=== PATIENT | male | born 1950 | race Caucasian/White ===

== ENCOUNTER 2018-04-28 07:27 | Day surgery (SDC) | payer MEDICARE, SELFPAY ==
--- NOTE | 2018-04-26 09:15 | W.PIPPEYE ---
History of Present Illness Chief Complaint: Progressive decreased vision, right eye Narrative: The patient is a 67-year-old male with history of progressive decreased vision in the right eye. On examination he was noted to have nuclear and posterior subcapsular cataract of the right eye with visual acuity of 20/150. The option of cataract surgery was offered to the patient and he felt he was symptomatic enough with decreased vision that he wished to proceed. NOTE: The Chief Complaint, HPI, Past Medical History, Past Surgical History, Family History, Social History, Medications, and complete Ophthalmic Exam with detailed Assessment and Plan have already been documented in the patient's outpatient ophthalmic record and are not covered again in detail here. [facility] Medical History Nuclear sclerotic cataract of right eye (Acute) Posterior subcapsular age-related cataract, right eye (Acute) Social History Smoking/Tobacco Use Status: Never Meds Home Medications Medication Instructions Recorded Confirmed Type aspirin 325 mg PO DAILY 04/22/18 04/22/18 History glipizide 5 mg PO DAILY 04/22/18 04/22/18 History lisinopril 10 mg PO DAILY 04/22/18 04/22/18 History metformin 1,000 mg PO BID 04/22/18 04/22/18 History metoprolol tartrate 50 mg PO BID 04/22/18 04/22/18 History multivitamin 1 cap PO DAILY 04/22/18 04/22/18 History nitroglycerin [Nitrostat] 0.4 mg SUBLINGUAL DIRECTED 04/22/18 04/22/18 History omeprazole 20 mg PO DAILY 04/22/18 04/22/18 History rosuvastatin [Crestor] 40 mg PO DAILY 04/22/18 04/22/18 History Allergies Allergy/AdvReac Type Severity Reaction Status Date / Time ticlopidine Allergy Unknown Verified 04/22/18 11:27 Exam OCULAR EXAM:: Visual acuity at distance: Best corrected 20/40 right eye, 20/20 left eye. Pupils: Pupils equal, round, and reactive without afferent pupillary defect IOP: 18 OD 13 OS Extraocular Motility: Normal Pertinent Slit Lamp Findings: Significant for pupils dilating to 6 mm OU. 1+ nuclear cataract OD with 1-2+ posterior subcapsular cataract. Clear lens OS. Dilated Funduscopic Examination: Disc cupping is 0.3 OU with good color. The optic nerves have good perfusion and normal color. The retinal vasculature is normal without significant tortuosity or abnormality. The maculas are normal in appearance with normal contour and foveal reflex appropriate for age. The peripheral retina and vitreous are normal. BRIGHTNESS ACUITY TESTING (BAT):: Off right eye 20/150, Low: 20/400 Medium: 20/400 High: Less than 20/400 Assessment and Plan (1) Posterior subcapsular age-related cataract, right eye: Current visit: No Status: Acute Assessment: Visually significant cataract, right eye. Plan: Cataract extraction with intraocular lens implantation, right eye (2) Nuclear sclerotic cataract of right eye: Current visit: No Status: Acute Assessment: Visually significant cataract, right eye. Plan: Cataract extraction with intraocular lens implantation, right eye Note: NOTE:: The details of the planned surgery, including the risks, indications,limitations,expectations,outcome and possible complications were explained to the patient. The patient understands the complications including, but not limited to: infection, hemorrhage, posterior dislocation of the lens or nuclear fragments which may require the intervention of a vitreoretinal surgeon, possible loss of the eye, or from anesthetic complications. The patient has been made aware of the option of not having surgery, that vision following surgery may not be equal to that prior to surgery, and that the planned surgery may not achieve the intended results. Following this discussion, which the patient appeared to understand, the patient wishes to proceed with cataract surgery with lens implantation of the affected eye to improve and maximize vision.
--- NOTE | 2018-04-26 09:23 | POEE_ITS ---
History of Present Illness Chief Complaint: Progressive decreased vision, right eye Narrative: The patient is a 67-year-old male with history of progressive decreased vision in the right eye. On examination he was noted to have nuclear and posterior subcapsular cataract of the right eye with visual acuity of 20/ 150. The option of cataract surgery was offered to the patient and he felt he was symptomatic enough with decreased vision that he wished to proceed. NOTE: The Chief Complaint, HPI, Past Medical History, Past Surgical History, Family History, Social History, Medications, and complete Ophthalmic Exam with detailed Assessment and Plan have already been documented in the patient's outpatient ophthalmic record and are not covered again in detail here. [facility] History Nuclear sclerotic cataract of right eye (Acute) Posterior subcapsular age-related cataract, right eye (Acute) Social History Smoking/Tobacco Use Status: Never Meds Home Medications Medication Instructions Recorded Confirmed Type aspirin 325 mg PO DAILY 04/22/18 04/22/18 History glipizide 5 mg PO DAILY 04/22/18 04/22/18 History lisinopril 10 mg PO DAILY 04/22/18 04/22/18 History metformin 1,000 mg PO BID 04/22/18 04/22/18 History metoprolol tartrate 50 mg PO BID 04/22/18 04/22/18 History multivitamin 1 cap PO DAILY 04/22/18 04/22/18 History nitroglycerin [Nitrostat] 0.4 mg SUBLINGUAL DIRECTED 04/22/18 04/22/18 History omeprazole 20 mg PO DAILY 04/22/18 04/22/18 History rosuvastatin [Crestor] 40 mg PO DAILY 04/22/18 04/22/18 History Allergies Allergy/AdvReac Type Severity Reaction Status Date / Time ticlopidine Allergy Unknown Verified 04/22/18 11:27 Exam OCULAR EXAM:: Visual acuity at distance: Best corrected 20/40 right eye, 20/20 left eye. Pupils: Pupils equal, round, and reactive without afferent pupillary defect IOP: 18 OD 13 OS Extraocular Motility: Normal Pertinent Slit Lamp Findings: Significant for pupils dilating to 6 mm OU. 1+ nuclear cataract OD with 1-2+ posterior subcapsular cataract. Clear lens OS. Dilated Funduscopic Examination: Disc cupping is 0.3 OU with good color. The optic nerves have good perfusion and normal color. The retinal vasculature is normal without significant tortuosity or abnormality. The maculas are normal in appearance with normal contour and foveal reflex appropriate for age. The peripheral retina and vitreous are normal. BRIGHTNESS ACUITY TESTING (BAT):: Off right eye 20/150, Low: 20/400 Medium: 20/400 High: Less than 20/400 Assessment and Plan (1) Posterior subcapsular age-related cataract, right eye: Current visit: No Status: Acute Assessment: Visually significant cataract, right eye. Plan: Cataract extraction with intraocular lens implantation, right eye (2) Nuclear sclerotic cataract of right eye: Current visit: No Status: Acute Assessment: Visually significant cataract, right eye. Plan: Cataract extraction with intraocular lens implantation, right eye Note: NOTE:: The details of the planned surgery, including the risks, indications, limitations,expectations,outcome and possible complications were explained to the patient. The patient understands the complications including, but not limited to: infection, hemorrhage, posterior dislocation of the lens or nuclear fragments which may require the intervention of a vitreoretinal surgeon, possible loss of the eye, or from anesthetic complications. The patient has been made aware of the option of not having surgery, that vision following surgery may not be equal to that prior to surgery, and that the planned surgery may not achieve the intended results. Following this discussion, which the patient appeared to understand, the patient wishes to proceed with cataract surgery with lens implantation of the affected eye to improve and maximize vision.
[2018-04-28 07:30] VITALS: BP 161/86; PULSE 63; RESP 16; TEMP 36.2; O2SAT 99
[2018-04-28] MEDS: Lidocaine 2% Jelly 6 ML SYR (08:52)
[2018-04-28] MEDS: Balanced Salt Soln.-PLUS 500 ML BAG (08:55)
[2018-04-28] MEDS: Povidone-Iodine Ophth 30 ML BTL (08:59)
--- NOTE | 2018-04-28 09:17 | W.PM.DSUDISC ---
Discharge Plan Discharge Details Reason For Visit: CATARACT OD Attending Provider: Gus Phillips Primary Care Provider: Ramior Ball Home Meds and New Rx's Prescriptions: No Action aspirin 325 mg Tablet 325 mg PO DAILY RF: 0 glipizide 5 mg Tablet Extended Release 24hr 5 mg PO DAILY RF: 0 metformin 1,000 mg Tablet 1,000 mg PO BID RF: 0 lisinopril 10 mg Tablet 10 mg PO DAILY RF: 0 metoprolol tartrate 50 mg Tablet 50 mg PO BID RF: 0 nitroglycerin [Nitrostat] 0.4 mg Tablet, Sublingual 0.4 mg SUBLINGUAL DIRECTED RF: 0 omeprazole 20 mg Capsule,Delayed Release(Dr/Ec) 20 mg PO DAILY RF: 0 multivitamin Capsule 1 cap PO DAILY RF: 0 rosuvastatin [Crestor] 40 mg Tablet 40 mg PO DAILY RF: 0 Discharge Instructions Stand Alone Forms: Post-op Topical Cataract, Opal Dennis (DSU) DS: Diagnosis Discharge Diagnosis (1) Posterior subcapsular age-related cataract, right eye: Status: Resolved (2) Nuclear sclerotic cataract of right eye: Status: Resolved (3) S/P cataract surgery: Status: Chronic
--- NOTE | 2018-04-28 09:21 | ROE_ITS ---
Date of service: 04/28/18 Time of Service: 09:19 Operative Note DATE OF PROCEDURE: 04/28/18 PRE-OP DIAGNOSIS: Cataract, right eye POST-OP DIAGNOSIS: same SURGEON: Gus Phillips ANESTHESIA: MAC and local (sub-tenon's anesthetic infiltration) PATHOLOGY: none sent COMPLICATIONS: None Patient was transported to: same day Patient's condition: stable Implants: Ricardo and Ric[employer] Vision / [employer] Tecnis [id number] Indications: Progressive decreased vision due to cataract, right eye Procedure Description: CATARACT SURGERY OPERATIVE REPORT PREOPERATIVE DIAGNOSIS: Nuclear/posterior subcapsular cataract, right eye POSTOPERATIVE DIAGNOSIS: Same OPERATION: Cataract extraction using phacoemulsification with posterior chamber intraocular lens implant, right eye. IOL: IOL Retirement Administrator/Model: [employer] Vision / AMELIA Tecnis [id number] IOL Power: + 21.5 diopters IOL Serial Number: [id number] Optic Diameter: 6.0mm Haptic/Overall Diameter: 13.0mm PHACO INFO: [employer] Vision System with OZil and Active Fluidics Cumulative Dispersed Energy (CDE): 7.96 seconds SURGEON: Gus Phillips MD, ELOISE ANESTHESIA: Monitored Anesthesia Care (MAC), with local sub-tenon's anesthetic infiltration COMPLICATIONS: None SPECIMENS: None INDICATIONS FOR PROCEDURE: The patient is a 67-year-old gentleman with progressive decreased vision in his right eye. He is noted to have a significant nuclear and posterior subcapsular cataract in the right eye. He was significantly symptomatic that he desired cataract surgery and attempt to improve and maximize his vision. PROCEDURE: The correct surgical eye was identified and marked as the right eye and the pupil was dilated in the preoperative area using mydriatics, cycloplegics, and NSAIDS (except in aspirin allergic patients). The dilated pupil size was 8.0 mm. Oral sedation was administered in the form of an Imprimis MKO Melt (midazolam 3mg/ketamine 25mg/ondansetron 2mg). The patient was brought to the operating room where cardiopulmonary monitoring was instituted and surgical time-out was performed, confirming the correct operative eye and IOL power. Topical anesthesia was administered and ophthalmic povidone-iodine 5% was instilled into the conjunctival fornices. Lidocaine gel was applied to the cornea and the clara-ocular area was prepped with Betadine 10% solution and draped in the usual sterile fashion for intraocular surgery. Steri-strips were used to cover the lashes and lid margins and an adhesive eye drape was placed. Care was taken to isolate the lashes and lid margins under the Steri-strips and adhesive eye drape. A lid speculum was placed between the lids of the operative eye and the [employer] operating microscope was maneuvered into position. Rupa scissors were then used to make a conjunctival buttonhole approximately 6mm posterior to the limbus in the inferonasal quadrant. Blunt dissection was carried out to expose bare sclera, and a blunt-tipped sub-tenon? s anesthesia cannula was introduced and passed posteriorly along the globe where non-preserved plain lidocaine was injected into posterior sub-Tenon?s space. A sideport knife was used to make a paracentesis port at the 7:00 postion and the anterior chamber was filled with Healon GV. A 2.4mm keratome knife was used to create a half-thickness groove at the limbus and then to construct a three-plane near-clear corneal tunnel extending 2.0mm into clear cornea at the 10:00 position. A flap was raised on the anterior capsule and capsulorhexis forceps were used to complete a continuous curvilinear capsulorhexis of 5.5 mm. Balanced salt solution was then used to perform cortical cleaving hydrodissection and nuclear hydrodelineation until the lens could be freely rotated within the capsular bag. The lens nucleus was then disassembled and removed within the capsular bag and iris plane using phacoemulsification. Residual cortical material was removed using the 45-degree angled silicone I/A tip with 0.3mm port. The posterior capsule was carefully polished to remove as much residual lens epithelial cells as safely possible. The capsular bag was then inflated and the anterior chamber deepened with viscoelastic. The lens implant described above was inserted into the capsular bag using the AMELIA [place] Injector. A Kuglen hook was used to dial the IOL into position. Residual viscoelastic was then removed first from posterior to the IOL, then from the anterior chamber using the I/A handpiece. The lens implant was noted to center nicely within the capsular bag. The incisions were stromally hydrated , and the anterior chamber was reformed using BSS. Then 0.4cc of moxifloxacin 1.5mg/ml were injected into the capsular bag and anterior chamber. The incisions were checked with a Weck spear and found to be secure. Several drops of ophthalmic povidone-iodine 5% were then applied to the eye followed by two drops of Imprimis combination moxifloxacin/dexamethasone solution. The drapes were removed and a clear plastic protective eye shield was placed over the eye. The patient was then returned to Same Day Surgery in stable condition.
[2018-04-28 09:48] VITALS: BP 128/69; PULSE 60; RESP 16; TEMP 35.8; O2SAT 93
== END 2018-04-28 09:58 | disposition home or self-care (01) ==
PROVIDERS: PCP Internal Medicine; Visit Provider Ophthalmology
PROC: (CPT 66984; principal; 2018-04-28 09:30)
DX: H25.811 Combined forms of age-related cataract, right eye (principal); E11.9 Type 2 diabetes mellitus without complications; Z79.84 Long term (current) use of oral hypoglycemic drugs; K21.9 Gastro-esophageal reflux disease without esophagitis
CPT/HCPCS: 66984; V2632

== ENCOUNTER 2018-06-03 10:38 | Outpatient (REF) | payer MEDICARE, SELFPAY ==
[2018-06-03 20:43] LABS: COMMENT (LAB VIEW ONLY) 97.98 mg/dL
== END 2018-06-03 10:58 ==
LOC: NCHCN 10:38
PROVIDERS: PCP Internal Medicine; Visit Provider Physician Assistant Medical
DX: I10 Essential (primary) hypertension (principal)
CPT/HCPCS: 82043; 82570

== ENCOUNTER 2019-03-17 09:07 | Outpatient (REF) | payer MEDICARE, SELFPAY ==
[2019-03-17 18:54] LABS: Hemoglobin A1C 7.3 % (4.5-6.2)
[2019-03-17 18:57] LABS: Anion Gap 10.1 mmol/L (3-11); BUN 14 mg/dL (7-18); CO2 24.9 mmol/L (21.0-32.0); CREATININE 1.16 mg/dL (0.70-1.30); Calcium 9.3 mg/dL (8.5-10.1); Calculated LDL 75 mg/dL; Chloride 104 mmol/L (98-107); Cholesterol 156 mg/dL (50-200); Glucose 142 mg/dL (70-100); HDL Cholesterol 43 mg/dL (40-60); Potassium 4.7 mmol/L (3.5-5.1); Sodium 139 mmol/L (136-145); Triglyceride 192 mg/dL (30-150)
== END 2019-03-17 09:27 ==
LOC: NCHCN 09:07
PROVIDERS: PCP Internal Medicine; Visit Provider Nurse Practitioner Family
DX: I10 Essential (primary) hypertension (principal); E11.9 Type 2 diabetes mellitus without complications; E78.5 Hyperlipidemia, unspecified
CPT/HCPCS: 80048; 80061; 83036

== ENCOUNTER 2020-09-29 09:34 | Outpatient (REF) | payer OTHER, SELFPAY ==
[2020-09-29 16:04] LABS: Anion Gap 12.6 mmol/L (3-11); BUN 26 mg/dL (7-18); CO2 23.4 mmol/L (21.0-32.0); CREATININE 1.3 mg/dL (0.70-1.30); Calcium 9.7 mg/dL (8.5-10.1); Chloride 99 mmol/L (98-107); Estimated GFR 54.57 (mL/min/1.73m2); Glucose 187 mg/dL (74-106); Potassium 4.8 mmol/L (3.5-5.1); Sodium 135 mmol/L (136-145)
[2020-09-29 16:17] LABS: COMMENT (LAB VIEW ONLY) 72.56 mg/dL
[2020-09-29 16:32] LABS: Microalb ug/mg Crea 430.3 ug/mg Cr
== END 2020-09-29 09:35 | disposition home or self-care (01) ==
LOC: NCHCN 09:34
PROVIDERS: PCP Internal Medicine; Visit Provider Physician Assistant
DX: E11.9 Type 2 diabetes mellitus without complications (principal)
CPT/HCPCS: 80048; 82043; 82570

== ENCOUNTER 2021-10-18 09:46 | Outpatient (REF) | payer MEDICARE, SELFPAY ==
[2021-10-18 21:53] LABS: Anion Gap 10.9 mmol/L (3-11); BUN 21 mg/dL (7-18); CO2 25.1 mmol/L (21.0-32.0); CREATININE 1.3 mg/dL (0.70-1.30); Calcium 9.3 mg/dL (8.5-10.1); Chloride 100 mmol/L (98-107); Estimated GFR 54.42 (mL/min/1.73m2); Glucose 173 mg/dL (74-106); Potassium 4.6 mmol/L (3.5-5.1); Sodium 136 mmol/L (136-145)
[2021-10-20 10:09] LABS: Hepatitis C Ab w Rflx HCV PCR Negative (Negative)
== END 2021-10-18 09:47 | disposition home or self-care (01) ==
LOC: NCHCN 09:46
PROVIDERS: PCP Internal Medicine; Visit Provider Physician Assistant
DX: E11.9 Type 2 diabetes mellitus without complications (principal); Z11.59 Encounter for screening for other viral diseases
CPT/HCPCS: 80048; 86803

== ENCOUNTER 2022-03-23 08:05 | Day surgery (SDC) | payer MEDICARE, SELFPAY ==
--- NOTE | 2022-03-23 06:51 | ANES.PREOP_ITS ---
General Info Date of Service Date Performed: 03/23/22 Height: 5 ft 6.5 in Weight: 83.7 kg Body Mass Index (BMI): 29.3 Surgical Procedure: Operation Date: 03/23/22 09:55 Proposed Procedure Side Surgeon p Cataract Extraction with IOL Implant Left Gus Phillips MD Meds Allergies and Home Medications Allergies Allergy/AdvReac Type Severity Reaction Status Date / Time ticlopidine Allergy Unknown Verified 03/23/22 08:27 Home Medication Medication Instructions Recorded glipizide 5 mg tablet, extended 5 mg PO DAILY 04/22/18 release 24 hr metformin 1,000 mg tablet 1,000 mg PO BID 04/22/18 metoprolol tartrate 50 mg tablet 50 mg PO BID 04/22/18 multivitamin 1 cap PO DAILY 04/22/18 nitroglycerin 0.4 mg sublingual 0.4 mg sublingual DIRECTED 04/22/18 tablet (Nitrostat) omeprazole 20 mg capsule,delayed 20 mg PO DAILY 04/22/18 release rosuvastatin 40 mg tablet (Crestor) 40 mg PO DAILY 04/22/18 amlodipine 5 mg tablet 5 mg PO BID 03/21/22 ezetimibe 10 mg tablet (Zetia) 10 mg PO DAILY 03/21/22 sacubitril 24 mg-valsartan 26 mg 1 tab PO BID 03/21/22 tablet (Entresto) aspirin 81 mg tablet,delayed 81 mg PO DAILY 03/22/22 release Current Visit Medications: Current Medications Generic Name Dose Route Start Last Admin Trade Name Freq PRN Reason Stop Dose Admin Acetaminophen 1,000 mg 03/23/22 06:00 Acetaminophen 500 Mg Tab PO Q4H PRN PRN Miscellaneous Medication 0 ml 03/23/22 06:00 Prednisolone 1%, Moxifloxacin 0.5%, Nepafenac 0.1% 5ml Btl OS DIRECTED AMI Miscellaneous Medication 0 ml 03/23/22 06:00 Tropicam./Phenyleph. (1/2.5%) 5 Ml Btl OS DIRECTED AMI Tetracaine HCl 0 ml 03/23/22 06:00 Tetracaine 0.5% 4 Ml Btl OS DIRECTED AMI PFSH Active Problems Active Problems: Problem Status Onset Code Posterior subcapsular age-related cataract, right eye 04/28/18 H25.041 Nuclear sclerotic cataract of right eye 04/28/18 H25.11 S/P cataract surgery 04/28/18 Z98.49 Medical History Medical History (Updated 03/22/22 @ 14:07 by Brandon Mehta) Acid reflux Diabetes HLD (hyperlipidemia) HTN (hypertension) Surgical History Surgical History (Updated 03/23/22 @ 08:27 by Theo Marte) Hx of aortic valve replacement F/U with Dr. Lackey Hx of appendectomy S/P CABG x 2019 Tobacco Smoking/Tobacco Use Status: Never Alcohol Alcohol Intake: never Substance Use Substance use: Never Substance use type: does not use Vital Signs and Lab Results Lab Results Blood Type / Crossmatch: No Data to Display Complete Blood Count: No Data to Display Complete Metabolic Panel: No Data to Display Liver Function Panel: No Data to Display Coagulation Panel: No Data to Display Cardiac Panel: No Data to Display Arterial Blood Gas: 2 No Data to Display Venous Blood Gas: No Data to Display Pancreas Panel: No Data to Display Thyroid Panel: No Data to Display Infectious Disease: No Data to Display Blood Cultures: No Data to Display Toxicology Panel: No Data to Display Anesthesia Assessment and Plan Anesthesia History Personal History: No History of Anesthesia Complications Family History: No Family History of Anesthesia Complications Exercise Tolerance Exercise Tolerance: Metabolic Equivalents>4 Pertinent Negatives Pertinent Negatives: No Symptoms of GERD, No Major Cardiovascular Symptoms or Complaints, No Major Pulmonary Symptoms or Complaints and No History of CVA/TIA Cardiac & Pulmonary Exam Cardiac Exam: Normal S1/S2 Heart Sounds Pulmonary Exam: Clear Bilateral Breath Sounds Implantable Cardiac Device Does patient have a Pacemaker or an ICD?: No Airway Exam Known Difficult Airway: No Mallampati Class: 2 Mouth Opening: Normal (> 3cm) Thyromental Distance: Greater than 3 cm Neck Range of Motion: Full ROM Neck Circumference: Normal Teeth Condition: Normal Dentition ASA Classification ASA Score: ASA 3 Emergency Case?: No NPO Status NPO Status: NPO Clears >2 hours, Solids >8 hours Anesthesia Plan Resuscitation Status: Full Code Anesthesia Technique: MAC Anesthesia Airway Planned: Natural Airway Monitors Used: Standard Monitors
[2022-03-23 08:31] VITALS: BP 115/60; PULSE 57; RESP 16; TEMP 36.4; O2SAT 100
[2022-03-23] MEDS: Tropicam./Phenyleph. (1/2.5%) 5 ML BTL OS ×3 (08:38→08:50)
[2022-03-23] MEDS: Tetracaine 0.5% 4 ML BTL OS (09:10)
[2022-03-23] MEDS: Balanced Salt Soln.-PLUS 500 ML BAG (09:18)
[2022-03-23] MEDS: Lidocaine 2% Jelly 6 ML SYR (09:19)
[2022-03-23] MEDS: Lidocaine 1% Pres-Free 5 ML VIAL (09:19)
[2022-03-23] MEDS: Povidone-Iodine Ophth 30 ML BTL (09:21)
[2022-03-23 09:29] VITALS: BMI 29.3
[2022-03-23 09:32] VITALS: BP 121/76; PULSE 56; RESP 15; TEMP 36.4; O2SAT 98
--- NOTE | 2022-03-23 09:35 | ROE_ITS ---
Date of service: 03/23/22 Time of Service: 09:37 Operative Note Operative Note DATE OF PROCEDURE: 03/23/22 PRE-OP DIAGNOSIS: Nuclear/posterior subcapsular cataract, left eye POST-OP DIAGNOSIS: same PROCEDURE: Cataract extraction using phacoemulsification with intraocular lens implant, left eye SURGEON: Gus Phillips ANESTHESIA TYPE: Local By Surgeon and MAC Refer to Anesthesia Record PATHOLOGY: none sent COMPLICATIONS: None Patient was transported to: same day Patient's condition: stable Implants: Jason Clareon [id number] Indications: Progressive decreased vision due to cataract, left eye Procedure Description: CATARACT SURGERY OPERATIVE REPORT PREOPERATIVE DIAGNOSIS: Nuclear/posterior subcapsular cataract, left eye POSTOPERATIVE DIAGNOSIS: Same OPERATION: Cataract extraction using phacoemulsification with posterior chamber intraocular lens implant, left eye. IOL: IOL Battery Assembler/Model: Jason Clareon [id number] IOL Power: + 22.0 diopters IOL Serial Number: [id number] Optic Diameter: 6.0mm Haptic/Overall Diameter: 13.0mm PHACO INFO: [employer] Vision System with OZil and Active Fluidics Cumulative Dispersed Energy (CDE): 8.41 seconds SURGEON: Gus Phillips MD, ELOISE ANESTHESIA: Monitored Anesthesia Care (MAC), with local sub-tenon's anesthetic infiltration COMPLICATIONS: None SPECIMENS: None INDICATIONS FOR PROCEDURE: The patient is a 71-year-old gentleman who is previously undergone cataract surgery in the right eye in 2018. He has now developed a symptomatic nuclear/posterior subcapsular cataract in the left eye. The option of cataract surgery was offered to the patient and he wished to proceed. PROCEDURE: The correct surgical eye was identified and marked as the left eye and the pupil was dilated in the preoperative area using mydriatics and cycloplegics. The dilated pupil size was 6.5 mm. He elected to proceed without oral sedation. The patient was brought to the operating room where cardiopulmonary monitoring was instituted and surgical time-out was performed, confirming the correct operative eye and IOL power. Topical anesthesia was administered and ophthalmic povidone-iodine 5% was instilled into the conjunctival fornices. Lidocaine gel was applied to the cornea and the clara-ocular area was prepped with Betadine 10% solution and draped in the usual sterile fashion for intraocular surgery, including an aperture drape. A Tegaderm transparent film dressing was cut in half and used to cover the lashes and lid margins. Care was taken to sequester the lashes and lid margins under the Tegaderm dressing. A lid speculum was placed between the lids of the operative eye and the Jason [employer] operating microscope was maneuvered into position. Rupa scissors were then used to make a conjunctival buttonhole approximately 6mm posterior to the limbus in the inferonasal quadrant. Blunt dissection was carried out to expose bare sclera, and a blunt-tipped sub-tenon?s anesthesia cannula was introduced and passed posteriorly along the globe where non- preserved plain lidocaine was injected into posterior sub-Tenon?s space. A sideport knife was used to make a paracentesis port superior/superiortemporally. Intraocular phenylephrine/lidocaine was injected into the anterior chamber. The anterior chamber was then filled with viscoelastic. A 2.4mm keratome knife was used to create a half-thickness groove at the limbus and then to construct a three-plane near-clear corneal tunnel extending 2.0mm into clear cornea in the temporal position. . A flap was raised on the anterior capsule and capsulorhexis forceps were used to complete a continuous curvilinear capsulorhexis of 5.0 mm. Balanced salt solution was then used to perform cortical cleaving hydrodissection and nuclear hydrodelineation until the lens could be freely rotated within the capsular bag. The lens nucleus was then disassembled and removed within the capsular bag and iris plane using phacoemulsification. Residual cortical material was removed using the 45-degree angled silicone I/A tip with 0.3mm port. The posterior capsule was carefully polished to remove as much residual lens epithelial cells as safely possible. The capsular bag was then inflated and the anterior chamber deepened with viscoelastic. The lens implant described above was inserted into the capsular bag using the Jason [place] Injector. A Kuglen hook was used to dial the IOL into position. Residual viscoelastic was then removed first from posterior to the IOL, then from the anterior chamber using the I/A handpiece. The lens implant was noted to center nicely within the capsular bag. The incisions were stromally hydrated, and the anterior chamber was reformed using BSS. Then 0.5cc of moxifloxacin 1.0mg/ml were injected into the capsular bag and anterior chamber. The incisions were checked with a Weck spear and found to be secure. Several drops of ophthalmic povidone-iodine 5% were then applied to the eye followed by two drops of Imprimis combination prednisolone/moxifloxacin/nepafenac solution. The drapes were removed and a clear plastic protective eye shield was placed over the eye. The patient was then returned to Same Day Surgery in stable condition.
--- NOTE | 2022-03-23 09:35 | W.PM.DSUDISC ---
Discharge Plan Disposition Patient Disposition: HOME Condition: Good Discharge Details Attending Provider: Gus Phillips Primary Care Provider: Ramiro Ball Meds and New Rx's Prescriptions: No Action amlodipine 5 mg Tablet 5 mg PO BID ezetimibe [Zetia] 10 mg Tablet 10 mg PO DAILY Entresto 24-26 mg Tablet 1 tab PO BID aspirin [Aspir-81] 81 mg Tablet,Delayed Release (Dr/Ec) 81 mg PO DAILY glipizide 5 mg Tablet Extended Release 24hr 5 mg PO DAILY metformin 1,000 mg Tablet 1,000 mg PO BID metoprolol tartrate 50 mg Tablet 50 mg PO BID nitroglycerin [Nitrostat] 0.4 mg Tablet, Sublingual 0.4 mg SUBLINGUAL DIRECTED omeprazole 20 mg Capsule,Delayed Release(Dr/Ec) 20 mg PO DAILY multivitamin Capsule 1 cap PO DAILY rosuvastatin [Crestor] 40 mg Tablet 40 mg PO DAILY Discharge Instructions Stand Alone Forms: Post-op Topical Cataract, Opal Dennis (DSU) Discharge Orders Discharge Orders: Discharge Order (Routine); Ordered 03/23/22 Ordered By: Gus Phillips DS: Diagnosis Discharge Diagnosis (1) Nuclear sclerotic cataract of left eye: Status: Resolved (2) Posterior subcapsular age-related cataract of left eye: Status: Resolved
--- NOTE | 2022-03-23 09:57 | W.ANESPOSTOP ---
Postoperative Evaluation Date, Time and Location Date Performed: 03/23/22 Time Performed: 09:32 Patient Location: Day [facility] Unit Vital Signs Most Recent Imported Vital Signs: Most Recent Vital Signs Temp Pulse Resp BP Pulse Ox 36.4 C L 56 L 15 121/76 98 03/23/22 09:32 03/23/22 09:32 03/23/22 09:32 03/23/22 09:32 03/23/22 09:32 Pain Score Most Recent Pain Score: Most Recent Pain Score Pain Level 0 03/23/22 09:32 Assessment Mental Status: Awake (Alert & Oriented to Patient Baseline) Airway and Respiratory Function: Patent airway with normal (patient baseline) respiratory exam Cardiovascular Function: Hemodynamically Stable Hydration Status: Adequately Hydrated Nausea & Vomiting: No Nausea or Vomiting Pain: Pt. Denies Any Pain Peripheral Nerve Block: Other (Local by Dr. Phillips)
== END 2022-03-23 09:54 | disposition home or self-care (01) ==
PROVIDERS: PCP Internal Medicine; Visit Provider Ophthalmology
PROC: (CPT 66984; principal; 2022-03-23 09:45)
DX: H25.042 Posterior subcapsular polar age-related cataract, left eye (principal); E11.9 Type 2 diabetes mellitus without complications; I10 Essential (primary) hypertension; E78.5 Hyperlipidemia, unspecified
CPT/HCPCS: 66984; V2632

== ENCOUNTER 2022-10-23 12:45 | Outpatient (REF) | payer MEDICARE, SELFPAY ==
[2022-10-23 19:00] LABS: ALT 33 U/L (16-63); AST 27 U/L (15-37); Alkaline Phosphatase 59 U/L (46-116); Anion Gap 13.1 mmol/L (3-11); BUN 24 mg/dL (7-18); Bilirubin, Total 0.5 mg/dL (0.2-1.0); CO2 21.9 mmol/L (21.0-32.0); CREATININE 1.3 mg/dL (0.70-1.30); Calcium 9.7 mg/dL (8.5-10.1); Chloride 99 mmol/L (98-107); Estimated GFR 58.37 (mL/min/1.73m2); Glucose 164 mg/dL (74-106); Potassium 4.7 mmol/L (3.5-5.1); Sodium 134 mmol/L (136-145); Total Protein 8.3 g/dL (6.4-8.2)
== END 2022-10-23 12:46 | disposition home or self-care (01) ==
LOC: NCHCN 12:45
PROVIDERS: PCP Internal Medicine; Visit Provider Physician Assistant
DX: E11.9 Type 2 diabetes mellitus without complications (principal); I10 Essential (primary) hypertension; E78.5 Hyperlipidemia, unspecified
CPT/HCPCS: 80053

== ENCOUNTER 2023-05-23 13:52 | Outpatient (REF) | payer MEDICARE, SELFPAY ==
[2023-05-23 19:57] LABS: Abs Immature Grans 0.13 10^3/uL (0.0-0.06); Absolute Basophil Count 0.09 10^3/uL (0.0-0.2); Basophils % 0.5; Eosinophils % 0.1; HCT 38.2 % (40.0-50.0); HGB 12.3 g/dL (13.5-17.5); Immature Grans % 0.7; Lymphocytes % 7.3; MCH 25.7 pg (27.0-33.0); MCHC 32.2 % (32.0-36.0); MCV 80 fL (80-95); MPV 12.2 fL (8.0-11.0); Monocytes % 11.2; Neutrophils % 80.2; Platelet Count 193 10^3/uL (130-400); RBC 4.78 10^6/uL (4.36-5.78); RDW-SD 43.4 fL; WBC 17.48 10^3/uL (4.4-10.8)
[2023-05-23 20:02] LABS: Absolute Eosinophil Count 0.02 10^3/uL (0.0-0.7); Absolute Lymphocyte Count 1.28 10^3/uL (1.2-3.4); Absolute Monocyte Count 1.96 10^3/uL (0.1-0.8); Absolute Neutrophil Count 14.02 10^3/uL (1.2-6.7)
[2023-05-23 20:06] LABS: RBC Morphology Normal
[2023-05-23 20:07] LABS: Diff Comment Agrees w/ Instrument
[2023-05-23 20:11] LABS: ALT 35 U/L (16-63); AST 43 U/L (15-37); Albumin 3.1 g/dL (3.4-5.0); Alkaline Phosphatase 107 U/L (46-116); Anion Gap 10.3 mmol/L (3-11); BUN 19 mg/dL (7-18); Bilirubin, Total 0.8 mg/dL (0.2-1.0); CO2 21.7 mmol/L (21.0-32.0); CREATININE 1.5 mg/dL (0.70-1.30); Chloride 97 mmol/L (98-107); Estimated GFR 48.85 (mL/min/1.73m2); Glucose 213 mg/dL (74-106); Potassium 4.3 mmol/L (3.5-5.1); Sodium 129 mmol/L (136-145); Total Protein 8.3 g/dL (6.4-8.2)
[2023-05-24 18:50] LABS: PSA, Screening 8.7 ng/mL (<=6.5)
== END 2023-05-23 13:53 | disposition home or self-care (01) ==
LOC: NCHCN 13:52
PROVIDERS: PCP Internal Medicine; Visit Provider Physician Assistant
DX: R30.0 Dysuria (principal); R31.9 Hematuria, unspecified; R10.9 Unspecified abdominal pain; R35.1 Nocturia
CPT/HCPCS: 80053; 84153; 87077; 85025; 87086; 87186

== ENCOUNTER 2023-07-26 10:15 | Outpatient (REF) | payer MEDICARE, SELFPAY ==
[2023-07-26 19:25] LABS: COMMENT (LAB VIEW ONLY) 130.74 mg/dL
[2023-07-26 19:26] LABS: Microalb ug/mg Crea 208.4 ug/mg Cr
== END 2023-07-26 10:16 | disposition home or self-care (01) ==
LOC: NCHCN 10:15
PROVIDERS: PCP Internal Medicine; Visit Provider Internal Medicine
DX: E11.9 Type 2 diabetes mellitus without complications (principal)
CPT/HCPCS: 82043; 82570

== ENCOUNTER 2023-07-30 08:24 | Outpatient (REF) | payer MEDICARE, SELFPAY ==
[2023-07-30 20:10] LABS: Calculated LDL 44 mg/dL (<100); Cholesterol 121 mg/dL (<200); HDL Cholesterol 52 mg/dL (40-60); Triglyceride 126 mg/dL (<150)
[2023-07-30 20:37] LABS: Hemoglobin A1C 7.3 % (<5.7)
== END 2023-07-30 08:25 | disposition home or self-care (01) ==
LOC: NCHCN 08:24
PROVIDERS: PCP Internal Medicine; Visit Provider Physician Assistant
DX: E11.9 Type 2 diabetes mellitus without complications (principal); E78.5 Hyperlipidemia, unspecified
CPT/HCPCS: 80061; 83036

== ENCOUNTER 2024-03-26 15:44 | Outpatient (REF) | payer MEDICARE, SELFPAY ==
--- OUTSIDE RECORDS SUMMARY | 2024-03-26 15:46 | XMS_ITS | Continuity of Care Document ---
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 Role Phone [facility] Primary Care Physician Encounter [facility] Date(s): 02/19/23 - 02/19/23 [facility] [address] [place] [address] Discharge Disposition: Home Allergies, Adverse Reactions, Alerts No Known Medication Allergies Substance Reaction Severity Status lisinopril Cough Severe Active Assessment and Plan Future Appointments Immunizations Given and Recorded Vaccine Date Status Refusal Reason SARS-CoV-2 (COVID-19) mRNA-1273 vaccine 10/13/20 R ecorded SARS-CoV-2 (COVID-19) mRNA-1273 vaccine 09/15/20 R ecorded Medications AAA - Mis Prescription 100 EA, USE ONE DAILY DIRECTED, 0 Refill(s) Start Date: 12/20/22 Status: Ordered acetaminophen 500 mg oral tablet 1,000 mg = 2 tab, Oral, every 6 hr, PRN other (see comment), as needed Start Date: 03/15/22 Status: Ordered amLODIPine 5 mg oral tablet 180 EA, TAKE ONE TABLET BY MOUTH TWICE A DAY, 0 Refill(s) Start Date: 12/20/22 Status: Ordered aspirin 81 mg oral delayed release tablet 81 mg = 1 tab, Oral, Daily Start Date: 03/15/22 Status: Ordered Entresto 24 mg-26 mg oral tablet 1 tab, Oral, BID, # 60 tab, 11 Refill(s), Pharmacy: [facility] Start Date: 10/02/22 Status: Ordered glipiZIDE 10 mg oral tablet, extended release 180 EA, TAKE TWO TABLETS BY MOUTH EVERY DAY, 0 Refill(s) Start Date: 12/20/22 Status: Ordered metFORMIN 1000 mg oral tablet 180 EA, TAKE ONE TABLET BY MOUTH TWICE A DAY, 0 Refill(s) Start Date: 12/20/22 Status: Ordered Metoprolol Tartrate 100 mg oral tablet 180 EA, TAKE ONE TABLET BY MOUTH TWICE A DAY, 0 Refill(s) Start Date: 12/20/22 Status: Ordered multivitamin adult, oral tablet 1 tab, Oral, Daily Start Date: 03/15/22 Status: Ordered omeprazole 20 mg oral delayed release capsule 90 EA, TAKE ONE CAPSULE BY MOUTH EVERY DAY, 0 Refill(s) Start Date: 12/20/22 Status: Ordered rosuvastatin 40 mg oral tablet 40 mg = 1 tab, Oral, Daily, # 90 tab, 4 Refill(s), Pharmacy: [facility] Start Date: 12/20/22 Stop Date: 03/14/24 Status: Ordered Zetia 10 mg oral tablet 10 mg = 1 tab, Oral, Daily, # 90 tab, 4 Refill(s), Pharmacy: [facility] Start Date: 07/02/22 Status: Ordered Problem List Condition Confirmation Course Effective Dates Status H ealth Status Informant Coronary arteriosclerosis Confirmed 07/01/20 Active Gastroesophageal reflux disease Confirmed 07/01/20 Active Hyperlipidemia Confirmed 07/01/20 Active Hypertensive disorder Confirmed Active Myocardial infarction Confirmed 07/01/20 Active Knee pain Confirmed Active Type 2 diabetes mellitus Confirmed 07/01/20 Active Procedures Procedure Date Related Diagnosis Body Site Status Colonoscopy 1 05/23/21 Completed Coronary artery bypass graft 2 06/12/20 Completed Transcatheter aortic valve replacement 06/12/20 Completed Diagnostic right heart - Car diac catheterization 06/02/20 Completed Cardiac catheterization with Stent placement 10/12/97 Completed 1diverticular disease 2arterial graft single 2 venous grafts arterial Social History Social History Type Response Tobacco Never tobacco user T obacco Use:. Sex Male Patient Care team information Care Team Personnel Name: Ramiro Antonio MD Position: Physician Member Role: Primary Care Physician Address: Address: [address] [place] [phone] [place] Care Team Related Persons Name: SEBAS PAYNE Brain Address: Home [address] [place], [place] [id number]
--- OUTSIDE RECORDS SUMMARY | 2024-03-26 15:46 | XMS_ITS | Continuity of Care Document ---
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 Polisher Name Role Phone [facility]au [facility] Primary Care Physician Encounter [facility] Date(s): 05/24/23 - 05/24/23 [facility] [address] [place] [address] Discharge Disposition: Home or Self Care Attending Physician: Tamia Tsai PA-C Admitting Physician: Tamia Tsai PA-C Referring Physician: Tamia Tsai PA-C Allergies, Adverse Reactions, Alerts No Known Medication Allergies Substance Reaction Severity Status lisinopril Cough Severe Active Immunizations Given and Recorded Vaccine Date Status Refusal Reason SARS-CoV-2 (COVID-19) mRNA-1273 vaccine 10/13/20 R ecorded SARS-CoV-2 (COVID-19) mRNA-1273 vaccine 09/15/20 R ecorded Medications AAA - Misc Prescription 100 EA, USE ONE DAILY DIRECTED, [...] Daily, # 90 tab, 4 Refill(s), Pharmacy: [facility] Start Date: 12/20/22 Stop Date: 03/14/24 Status: Ordered Zetia 10 mg oral tablet 10 mg = 1 tab, Oral, Daily, # 90 tab, 4 Refill(s), Pharmacy: [facility] Start Date: 07/02/22 Status: Ordered Problem List Condition Confirmation Course Effective Dates Status H ealth Status Informant Degenerative arthritis of knee, bilateral Confirmed Active Coronary arteriosclerosis Confirmed 07/01/20 Active Gastroesophageal reflux disease Confirmed 07/01/20 Active Hyperlipidemia Confirmed 07/01/20 Active Hypertensive disorder Confirmed Active Myocardial infarction Confirmed 07/01/20 Active Knee pain Confirmed Active Bilateral knee pain Confirmed Active Type 2 diabetes mellitus [...] Member Role: Primary Care Physician Address: Address: [address] [place] [phone] Care Team Related Persons Name: SEABS PAYNE Brain Address: Home [address] [place], [place] [id number]
--- OUTSIDE RECORDS SUMMARY | 2024-03-26 15:46 | XMS_ITS | Continuity of Care Document ---
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 Role Phone Primeau [facility] Primary Care Physician Encounter [facility] Date(s): 07/02/22 - 07/02/22 [facility] [address] [place] [address] Encounter Diagnosis CAD in alutiiq artery(Discharge Diagnosis) - 07/02/22 HLD (hyperlipidemia)(Discharge Diagnosis) - 07/02/22 Abnormal echocardiogram(Discharge Diagnosis) - 07/03/22 Discharge Disposition: Home or Self Care Attending Physician: Joseph Lackey MD Allergies, Adverse Reactions, Alerts No Known Medication Allergies Substance Reaction Severity Status lisinopril Cough Severe Active Functional Status 07/02/22 Other exposure to Infectious Disease Non e Immunizations Given and Recorded Vaccine Date Status Refusal Reason SARS-CoV-2 (COVID-19) mRNA-1273 vaccine 10/13/20 R ecorded SARS-CoV-2 (COVID-19) mRNA-1273 vaccine 09/15/20 R ecorded Medications acetaminophen 500 mg oral tablet 1,000 mg = 2 tab, Oral, every 6 hr, PRN other (see comment), as needed Start Date: 03/15/22 Status: Ordered aspirin 81 mg oral delayed release tablet 81 mg = 1 tab, Oral, Daily Start Date: 03/15/22 Status: Ordered Entresto 24 mg-26 mg oral tablet 1 tab, Oral, BID Start Date: 03/15/22 Status: Ordered ezetimibe 10 mg oral tablet 1 tab, Oral, Daily, # 30 tab, 3 Refill(s), Pharmacy: [facility] #58 Start Date: 06/06/22 Status: Ordered multivitamin adult, oral tablet 1 tab, Oral, Daily Start Date: 03/15/22 Status: Ordered rosuvastatin 40 mg oral tablet 40 mg = 1 tab, Oral, Daily Start Date: 03/15/22 Status: Ordered Zetia 10 mg oral tablet 10 mg = 1 tab, Oral, Daily, # 90 tab, 4 Refill(s), Pharmacy: [facility] #58 Start Date: 07/02/22 Status: Ordered Problem [...] 2arterial graft single 2 venous grafts arterial Vital Signs Most recent to oldest [Reference Range]: 1 Peripheral Pulse Rate [60-100 bpm] 70 bp m (07/02/22 9:06 AM) Blood Pressure [90-140/60-90 mmHg] 133/7 5mmHg (07/02/22 9:06 AM) Weight 81.1 kg (07/02/22 9:06 AM) Weight Measured (lbs) 178.795 lb (07/02/22 9:06 AM) Social History Social History Type Response Tobacco Never tobacco user T obacco Use:. Sex Male Patient Care team information Personnel Name: Ramiro Antonio MD Address: Address: [address] [address]- [place]
--- OUTSIDE RECORDS SUMMARY | 2024-03-26 15:46 | XMS_ITS | Continuity of Care Document ---
Author Organization [facility] Address [address] [place] [address] Care Team Providers Care Outside Laborer Name Role Phone [facility] Primary Care Physician Encounter [facility] Date(s): 06/25/23 - 06/25/[address] [address] Discharge Disposition: Home or Self Care Attending Physician: Sreekanth Loera MD Admitting Physician: Sreekanth Loera MD Referring Physician: Sreekanth Loera MD Allergies, Adverse Reactions, Alerts No Known Medication Allergies Substance Reaction Severity Status lisinopril Cough Severe Active Assessment and Plan Diagnostic Tests Pending * Urine Culture 06/25/23 Immunizations Given and Recorded Vaccine Date Status [...] Oral, Daily Start Date: 03/15/22 Status: Ordered clopidogrel 75 mg oral tablet 75 mg = 1 tab, Oral, Daily, # 30 tab, 0 Refill(s) Start Date: 06/04/23 Status: Ordered Entresto 24 mg-26 mg oral tablet 1 tab, Oral, BID, # 60 tab, 11 Refill(s), Pharmacy: [facility] Start Date: 10/02/22 Status: [...] 0 Refill(s) Start Date: 12/20/22 Status: Ordered Ozempic 0 Refill(s) Start Date: 06/04/23 Status: Ordered rosuvastatin 40 mg oral tablet 40 mg = 1 tab, Oral, Daily, # 90 tab, 4 Refill(s), Pharmacy: [email or web address] Start Date: 12/20/22 Stop Date: 03/14/24 Status: Ordered Zetia 10 mg oral tablet 10 mg = 1 tab, Oral, Daily, # 90 tab, 4 Refill(s), Pharmacy: [email or web address] Start Date: 07/02/22 Status: Ordered Problem [...] Member Role: Primary Care Physician Address: Address: [address] [place] [phone] Care Team Related Persons Name: SEBAS PAYNE Address: Home [address] [place], [place] [id number]
--- OUTSIDE RECORDS SUMMARY | 2024-03-26 15:46 | XMS_ITS | Continuity of Care Document ---
Author Organization [facility] Address [address] [place] [address] Care Team Providers Care Cephalometric Tracer Name Role Phone Primeau IPH[facility], Ramiro Noe Primary Care Physician Encounter [facility] Date(s): 02/23/24 - 02/23/[address] [address] Encounter Diagnosis NSTEMI (non-ST elevated myocardial infarction)(Discharge Diagnosis) - 02/23/24 Discharge Disposition: Discharge/Transfer to [facility] as Inpt Attending Physician: Ariel Omer MD Admitting Physician: Ariel Omer MD Allergies, Adverse Reactions, Alerts No Known Medication Allergies Substance Reaction Severity Status lisinopril Cough Severe Active Assessment and Plan Extracted from: Title:ED Provider Note Author:Ariel Omer MD Date:02/23/24 1.??NSTEMI (non-ST elevated myocardial infarction)??I21.4 Ordered: Transfer to Another Facility, 02/23/24 11:58:00 EDT, To [facility] under the care of Dr. Puentes from cardiology ?? Orders: Troponin-I, Blood, Stat, 02/23/24 11:52:00 EDT, Once, Nurse collect Future Appointments Immunizations Given and Recorded Vaccine [...] BID, # 60 tab, 11 Refill(s), [facility] Start Date: 10/02/22 Status: Ordered glipiZIDE 10 mg oral tablet, extended release 180 EA, TAKE TWO TABLETS BY MOUTH EVERY DAY, 0 Refill(s) Start Date: 12/20/22 Status: Ordered isosorbide mononitrate 30 mg oral tablet, extended release 0 Refill(s) Start Date: 02/23/24 Status: Ordered metFORMIN 1000 mg oral tablet [...] 0 Refill(s) Start Date: 06/04/23 Status: Ordered pantoprazole 20 mg oral delayed release tablet 0 Refill(s) Start Date: 02/23/24 Status: Ordered rosuvastatin 40 mg oral tablet 40 mg = 1 tab, Oral, Daily, # 90 tab, 4 Refill(s), Pharmacy: [id number] Start Date: 12/20/22 Stop Date: 03/14/24 Status: Ordered Zetia 10 mg oral tablet 10 mg = 1 tab, Oral, Daily, # 90 tab, 4 Refill(s), Pharmacy: [id number] Start Date: 07/02/22 Status: Ordered Problem [...] 2arterial graft single 2 venous grafts arterial Results Laboratory List Name Date PTT 02/23/24 Troponin-I 02/23/24 CBC w/ Diff 02/23/24 Comprehensive Metabolic Panel 02/23/24 Troponin-I 02/23/24 .Manual Differential ([facility]CTY) 02/23/24 PT/ INR 02/23/24 PTT 02/23/24 Most recent to oldest [Reference Range]: 1 2 WBC [5.0-10.0 x10^3/mcL] 7.5 x10^3/mcL (02/23/24 9:24 AM) RBC [4.6-6.0 x10^6/mcL] 4.5 x10^6/mcL *LOW* (02/23/24 9:24 AM) Segs Man [40-75 %] 85 % *HI* (02/23/24 9:24 AM) Lymph Man [20-50 %] 6 % *LOW* (02/23/24 9:24 AM) Carroll Man [2-15 %] 8 % (02/23/24 9:24 AM) Eos Man [1-6 %] 1 % (02/23/24 9:24 AM) Prothrombin Time [9.0-11.0 seconds] 10.5 seconds (02/23/24 9:24 AM) INR 1.0 1 *NA* (02/23/24 9:24 AM) BUN [7-18 mg/dL] 13 mg/dL (02/23/24 9:24 AM) Glucose Level [74-106 mg/dL] 226 mg/dL *HI* (02/23/24 9:24 AM) Potassium Level [3.5-5.1 mmol/L] 4.1 mmo l/L (02/23/24 9:24 AM) MCV [80.0-96.0 fL] 81.6 fL (02/23/24:24 AM) RBC Morph Normal (02/23/2424 AM) AST [15-37 unit/L] 38 unit/L *HI* (02/23/24:24 AM) ALT [16-63 unit/L] 58 unit/L (02/23/24:24 AM) MCHC [31.0-35.0 g/dL] 34.1 g/dL (02/23/24:24 AM) Troponin-I [0.0-76.2 pg/mL] 2585.4 pg/mL 2 *CRIT* (02/23/24 12:02 PM) 195.4 pg/mL 3 *CRIT* (02/23/24 9:24 AM) Sodium Level [136-145 mmol/L] 131 mmol/L *LOW* (02/23/24 9:24 AM) Hct [41.0-51.0 %] 36.9 % *LOW* (02/23/24 9:24 AM) Partial Thromboplastin Time [22-35 secon ds] 63 seconds 4 *HI* (02/23/24 4:03 PM) 31 seconds 5 (02/23/24 9:24 AM) Calcium Level [8.5-10.1 mg/dL] 9.5 mg/dL (02/23/24 9:24 AM) Albumin Level [3.4-5.0 g/dL] 3.2 g/dL *LOW* (02/23/24 9:24 AM) Protein Total [6.4-8.2 g/dL] 8.2 g/dL (02/23/24 9:24 AM) MCH [26.0-32.0 pg] 27.9 pg (02/23/24 9:24 AM) Bilirubin Total [0.2-1.0 mg/dL] 0.6 mg/d L (02/23/24 9:24 AM) Hgb [14.0-18.0 g/dL] 12.6 g/dL *LOW* (02/23/24 9:24 AM) Alk Phos [46-146 unit/L] 84 unit/L (02/23/24 9:24 AM) Band Man [0-5 %] 0 % (02/23/24 9:24 AM) Platelets [130-450 x10^3/mcL] 142 x10^3/ mcL (02/23/24 9:24 AM) CO2 [21-32 mmol/L] 23 mmol/L (02/23/24 9:24 AM) eGFR Non-AA [>=60] 59 *LOW* (02/23/24 9:24 AM) eGFR AA [>=60] 59 *LOW* (02/23/24 9:24 AM) Chloride Level [98-107 mmol/L] 94 mmol/L *LOW* (02/23/24 9:24 AM) RDW-CV [11.5-14.5 %] 15.7 % *HI* (02/23/24 9:24 AM) Slide Review Man Diff (02/23/24 9:24 AM) Abs Neut Man 6.4 x10^3/mcL *NA* (02/23/24 9:24 AM) Creatinine Level [0.70-1.30 mg/dL] 1.28 mg/dL (02/23/24 9:24 AM) Baso Man [0-1 %] 0 % (02/23/24 9:24 AM) 1Interpretive Data: INR 2-2.5 Prophylaxis: Short term DVT INR 2-3 Prophylaxis: hip and femur surgery Therapy: DVT (3 mos) PE (3-6 mos) TIA (salvage determiner) Atr Fib (senior living) Syst. emb post [place] Mitral Stenosis with emboli (salvage determiner) Tissue prosthetic valves (3 mos min) INR 3-4.5 Therapy: recurrent DVT, PE (salvage determiner) Prosthetic heart valves (senior living) 2Result Comment: Called to and verbally verified by Dr. Omer () at _02/23/2024 12:46:26 EDT PJB Result verified by repeat analysis . 3Result Comment: Called to and verbally verified by Dr. Omer at _02/23/2024 10:08:35 EDT PJB. Result verified by repeat analysis 4Interpretive Data: NEW reagent effective 06/11/2023 - Therapeutic Heparin Reference Range (0.3-0.7 effective anti-Xa level) 40-85 seconds. 5Interpretive Data: NEW reagent effective 06/11/2023 - Therapeutic Heparin Reference Range (0.3-0.7 effective anti-Xa level) 40-85 seconds. Vital Signs Most recent to oldest [Reference Range]: 1 2 3 Temperature Temporal Artery [36-38 Deg C] 36.2 Deg C (02/23/24 9:06 AM) Peripheral Pulse Rate [60-100 bpm] 82 bpm (02/23/24 6:12 PM) 78 bpm (02/23/24 5:51 PM) 78 bpm (02/23/24 4:56 PM) Heart Rate Monitored [60-100 bpm] 81 bpm (02/23/24 6:34 PM) 84 bpm (02/23/24 6:12 PM) 80 bpm (02/23/24 5:51 PM) Respiratory Rate [12-24 br/min] 19 br/min (02/23/24 6:34 PM) 19 br/min (02/23/24 6:12 PM) 19 br/min (02/23/24 5:51 PM) Blood Pressure [90-140/60-90 mmHg] 124/71mmHg (02/23/24 6:34 PM) 118/72mmHg (02/23/24 6:12 PM) 120/76mmHg (02/23/24 5:51 PM) Mean Arterial Pressure, Cuff [65-140 mmHg] 89 mmHg (02/23/24 6:34 PM) 87 mmHg (02/23/24 6:12 PM) 91 mmHg (02/23/24 5:51 PM) Weight 78.1 kg (02/23/24 9:06 AM) Weight Dosing 78.100 kg (02/23/24 9:06 AM) Social History Social History Type Response Tobacco Never tobacco user T obacco Use:. Sex Male Physician Emergency department Note * Ariel Omer MD: PERFORM Event Display: ED Note Physician Authored Date: [id number] BURTON PAYNE :1950 Age:73 years Sex:Male Visit Date:02/23/2024 Primary Care Physician: Quinn BURNS, Ramiro Noe MD Basic Information Time Seen: Ariel Omer MD / 02/23/2024 09:01 Chief Complaint Pt c/o chest pressure and dizziness. Pt fell in bathroom this am after felling like I was going topass out. No injuries, didn't hit head, thinned. Pt took 2 nitro for CP after fall. History Of Present Illness: Pleasant 73-year-old male comes by private car??because??of chest pressure and??a spell of lightheadedness this morning. ??The patient has a history of coronary artery disease, he had bypass surgery at [facility] in 2019,??he actually was really stented he reports at [facility] last June.?? He was having some??chest pressure occasionally. ??Last June he states it was a scheduled procedure and he was not rushed down??there with an [place].?? He has done well but this morning he woke up between 630 and 7??and felt chest pressure he was walking to the bathroom and felt lightheaded and eventually ended up on the ground.?? He did not pass out did not have any palpitations??and adamantly denies that he hurt himself anywhere's.?? Does not have a headache??or extremity injuries or back pain or neck pain or abdominal pain. ??But he still had the pressure same as??prior to falling. ??He proceeded to take sublingual nitro twice which made the pressure go from an 8 on 10 to a??5 on 10.?? His drove him here. ??When he first was interviewed by the nurse he stated the pressure was 5 on 10 but when I went to the room to talk with him he reported that the pain or pressure was completely gone.?? No recent illness.?? He is a diabetic and he was not hypoglycemic??when the checked??at thetime of his fall.?? No other complaints. Review of Systems: Constitutional:??no??fever,? Skin:??no??Jaundice,??no??rash,? ENMT:??No complain Respiratory:??no??shortness of breath,??no??cough,??zing Cardiovascular:?? See HPI??no??palpitations,??no??edema Gastrointestinal:??no??nausea,??no??vomiting,??no abdominal ?? Musculoskeletal:??no??back pain,??no??trauma Neurologic:??no??headache,?no??numbness,??no??weakness??see HPI ?? Physical Exam Vitals & Measurements T:??36.2?C ??(Temporal Artery)?? HR:??73??(Peripheral)?? HR:??71??(Monitored)?? RR:??19?? BP:??116/67?? SpO2:??92%?? WT:??78.1??kg?? Pain Score:??5?? O2 Therapy:??Room air?? General:??alert,??no acute distress.?? Normal mentation no acute distress. Skin:??warm,??dry. Head:??no??trauma,??normocephalic. Neck:??trachea??midline,??no??adenopathy,??no??tenderness. Eye:??normal??conjunctiva, sclera??clear. Cardiovascular:??regular??rate and rhythm,??normal??peripheral perfusion. Respiratory: lungs??CTA, respirations??non-labored. Chest wall:??no??deformity. Gastrointestinal:??soft,??non distended,??no??tenderness,??no??guarding. Extremities:??no??deformity,??no??trauma.?? No swelling??no signs of injury. Neurological:?LOC??appropriate for age,?speech??normal. Psychiatric:??cooperative, affect??appropriate for age,?? . Medical Decision Making: Medical Decision-Making: Clinical lab tests: ordered and reviewed -??Yes Tests in the radiology section of CPT??: ordered and reviewed -??Yes Tests in the medicine section of CPT??: ordered and reviewed -??Yes ?? Obtain history from someone other than the patient -??Yes, Review and summarize past medical records -??Yes Discuss the patient with other providers -??Yes,??[facility] cardiology Independent visualization of images, tracings, or specimens? Yes ?? Patient pain-free here. ??He took some of his usual meds this morning,??he did not take his aspirinso he was given it here.?? He took his Plavix last night as usual in the evening.?? After bump in troponin noted he was heparinized. ??He remained pain-free.?? Will hold off on nitrates as his blood pressure??tends to be??on the lower side??of normal at 106/65 at 10:55 AM.?? He is not having any pain at this time.?? In light of his significant coronary artery disease??history,??I reached out to [facility] cardiology regarding transfer for further intervention. ??Patient agrees??to transfer. ?? Last 24 Hours?? Chemistry ? Event Name?? Event Result?? Date/Time?? Sodium Level 131 mmol/L??Low 02/23/24 09:24:28 Potassium Level 4.1 mmol/L 02/23/24 09:24:28 Chloride Level 94 mmol/L??Low 02/23/24 09:24:28 CO2 23 mmol/L 02/23/24 09:24:28 Alk Phos 84 unit/L 02/23/24 09:24:28 AST 38 unit/L??High 02/23/24 09:24:28 ALT 58 unit/L 02/23/24 09:24:28 BUN 13 mg/dL 02/23/24 09:24:28 Glucose Level 226 mg/dL??High 02/23/24 09:24:28 Creatinine Level 1.28 mg/dL 02/23/24 09:24:28 eGFR AA 59??Low 02/23/24 09:24:28 eGFR Non-AA 59??Low 02/23/24 09:24:28 Calcium Level 9.5 mg/dL 02/23/24 09:24:28 Protein Total 8.2 g/dL 02/23/24 09:24:28 Albumin Level 3.2 g/dL??Low 02/23/24 09:24:28 Bilirubin Total 0.6 mg/dL 02/23/24 09:24:28 Troponin-I 195.4 pg/mL??Critical 02/23/24 09:24:28 ? Hematology ? Event Name?? Event Result?? Date/Time?? WBC 7.5 x10^3/mcL 02/23/24 09:24:28 RBC 4.5 x10^6/mcL??Low 02/23/24 09:24:28 Hgb 12.6 g/dL??Low 02/23/24 09:24:28 Hct 36.9 %??Low 02/23/24 09:24:28 MCV 81.6 fL 02/23/24 09:24:28 MCH 27.9 pg 02/23/24 09:24:28 MCHC 34.1 g/dL 02/23/24 09:24:28 RDW-CV 15.7 %??High 02/23/24 09:24:28 Platelets 142 x10^3/mcL 02/23/24 09:24:28 Segs Man 85 %??High 02/23/24 09:24:28 Lymph Man 6 %??Low 02/23/24 09:24:28 Carroll Man 8 % 02/23/24 09:24:28 Eos Man 1 % 02/23/24 09:24:28 Baso Man 0 % 02/23/24 09:24:28 Band Man 0 % 02/23/24 09:24:28 Abs Neut Man 6.4 x10^3/mcL 02/23/24 09:24:28 RBC Morph Normal 02/23/24 09:24:28 Slide Review Man Diff 02/23/24 09:24:28 ? Coagulation/Thrombosis ? Event Name?? Event Result?? Date/Time?? Prothrombin Time 10.5 seconds 02/23/24 09:24:00 INR 1 02/23/24 09:24:00 Partial Thromboplastin Time 31 seconds 02/23/24 09:24:00 ?? I spoke with ??O'Virginie??from [facility] cardiology and the patient is excepted under the care of Dr. Puentes primary care sales representative at [facility].?? At 11:55 AM the patient remains pain-free.?? Cardiology agreed with heparin, recommended the patient get his usual dose of Plavix today which we gave him. ? URL This document has an image ?? XR Chest 1 View PROCEDURE INFORMATION:?? Exam: XR Chest?? Exam date and time: 02/23/2024 9:22 AM?? Age: 73 years old?? Clinical indication: Chest pain? TECHNIQUE:?? Imaging protocol: Radiologic exam of the chest.?? Views: 1 view.? COMPARISON:?? CT ABD/PELVIS W/ CONTR NO PO 09/06/2023 11:39 PM? FINDINGS:?? Lungs: Unremarkable. No consolidation.?? Pleural spaces: Unremarkable. No pleural effusion. No pneumothorax.?? Heart/Mediastinum: Unremarkable. No cardiomegaly.?? Bones/joints: Median sternotomy? IMPRESSION: ??No focal consolidation ?? Report signed by: Susana Yang On 02/23/2024 ??10:36:18 [1] Procedure No Qualifying Data Assessment/Plan 1.??NSTEMI (non-ST elevated myocardial infarction)??I21.4 Ordered: Transfer to Another Facility, 02/23/24 11:58:00 EDT, To [facility] under the care of Dr. Puentes from cardiology ?? Orders: Troponin-I, Blood, Stat, 02/23/24 11:52:00 EDT, Once, Nurse collect Medication Reconciliation Unchanged acetaminophen (acetaminophen 500 mg oral tablet)2 tab Oral (given by mouth) every 6 hours as neededother (see comment). as needed. ?? amLODIPine (amLODIPine 5 mg oral tablet)180 EA, TAKE ONE TABLET BY MOUTH TWICE A DAY. ?? aspirin (aspirin 81 mg oral delayed release tablet)1 tab Oral (given by mouth) every day. ?? clopidogrel (clopidogrel 75 mg oral tablet)1 tab Oral (given by mouth) every day. ?? ezetimibe (Zetia 10 mg oral tablet)1 tab Oral (given by mouth) every day. Refills: 4. ?? glipiZIDE (glipiZIDE 10 mg oral tablet, extended release)180 EA, TAKE TWO TABLETS BY MOUTH EVERY DAY. ?? isosorbide mononitrate (isosorbide mononitrate 30 mg oral tablet, extended release) ?? metFORMIN (metFORMIN 1000 mg oral tablet)180 EA, TAKE ONE TABLET BY MOUTH TWICE A DAY. ?? metoprolol (Metoprolol Tartrate 100 mg oral tablet)180 EA, TAKE ONE TABLET BY MOUTH TWICE A DAY. ?? multivitamin (multivitamin adult, oral tablet)1 tab Oral (given by mouth) every day. ?? omeprazole (omeprazole 20 mg oral delayed release capsule)90 EA, TAKE ONE CAPSULE BY MOUTH EVERY DAY. ?? Other Prescription ([facility] Prescription)100 EA, USE ONE DAILY DIRECTED. ?? pantoprazole (pantoprazole 20 mg oral delayed release tablet) ?? rosuvastatin (rosuvastatin 40 mg oral tablet)1 tab Oral (given by mouth) every day for 90 Days. Refills: 4. ?? sacubitril-valsartan (Entresto 24 mg-26 mg oral tablet)1 tab Oral (given by mouth) 2 times a day. Refills: 11. ?? semaglutide (Ozempic) Problem List/Past Medical History Ongoing Bilateral knee pain Coronary arteriosclerosis Degenerative arthritis of knee, bilateral Gastroesophageal reflux disease Hyperlipidemia Hypertensive disorder Knee pain Myocardial infarction Type 2 diabetes mellitus Historical No qualifying data Procedure/Surgical History ???Colonoscopy (05/24/2021)???Coronary artery bypass graft (06/13/2020)???Transcatheter aortic valve replacement (06/13/2020)???Diagnostic right heart - Cardiac catheterization (06/03/2020)???Cardiaccatheterization with Stent placement (10/13/1997) Medication Administration Given heparin 25,000 units + Sodium Chloride 0.45% 250 mL, IV aspirin, 81 mg, Oral clopidogrel, 75 mg, Oral heparin, 4500 units, Medication Bolus Allergies lisinopril??(Cough) No Known Medication Allergies Social History Alcohol Never Electronic Cigarette/Vaping Electronic Cigarette Use: Never. Substance Use Never Tobacco Never tobacco user Tobacco Use:. Family History Cerebrovascular accident: Father. [place] - myocardial infarction: Father. Diagnostic Results ECG EKG shows sinus rhythm,??slight ST depression noted in V4??and V5. Diagnostic Study Interpretation: Chest x-ray unremarkable as interpreted by me and confirmed by radiologist. Lab Results CBC and Differential?? LATEST RESULTS?? HISTORICAL RESULTS?? WBC?? 02/23/24 09:24?? 7.5?? 01/06/24?? 5.7?? RBC?? 02/23/24 09:24?? 4.5 ??Low?? 01/06/24?? 4.4 ??Low?? Hgb?? 02/23/24 09:24?? 12.6 ??Low?? 01/06/24?? 11.9 ??Low?? Hct?? 02/23/24 09:24?? 36.9 ??Low?? 01/06/24?? 36.3 ??Low?? MCV?? 02/23/24 09:24?? 81.6?? 01/06/24?? 82.7?? MCH?? 02/23/24 09:24?? 27.9?? 01/06/24?? 27.1?? MCHC?? 02/23/24 09:24?? 34.1?? 01/06/24?? 32.8?? RDW-CV?? 02/23/24 09:24?? 15.7 ??High?? 01/06/24?? 16.8 ??High?? Platelets?? 02/23/24 09:24?? 142?? 01/06/24?? 148?? Segs Man?? 02/23/24 09:24?? 85 ??High?? 09/06/23?? 85 ??High?? Lymph Man?? 02/23/24 09:24?? 6 ??Low?? 09/06/23?? 7 ??Low?? Carroll Man?? 02/23/24 09:24?? 8?? 09/06/23?? 8?? Eos Man?? 02/23/24 09:24?? 1?? 09/06/23?? 0 ??Low?? Baso Man?? 02/23/24 09:24?? 0?? 09/06/23?? 0?? Band Man?? 02/23/24 09:24?? 0?? 09/06/23?? 0?? Abs Neut Man?? 02/23/24 09:24?? 6.4?? 09/06/23?? 12.1?? RBC Morph?? 02/23/24 09:24?? Normal?? 09/06/23?? Abnormal?? Slide Review?? 02/23/24 09:24?? Man Diff?? 09/06/23?? Man Diff? Coagulation?? LATEST RESULTS?? Prothrombin Time?? 02/23/24 09:24?? 10.5?? INR?? 02/23/24 09:24?? 1.0?? Partial Thromboplastin Time?? 02/23/24 09:24?? 31? Routine Chemistry?? LATEST RESULTS?? HISTORICAL RESULTS?? Sodium Level?? 02/23/24 09:24?? 131 ??Low?? 01/06/24?? 134 ??Low?? Potassium Level?? 02/23/24 09:24?? 4.1?? 01/06/24?? 4.7?? Chloride Level?? 02/23/24 09:24?? 94 ??Low?? 01/06/24?? 100?? CO2?? 02/23/24 09:24?? 23?? 01/06/24?? 25?? Alk Phos?? 02/23/24 09:24?? 84?? 01/06/24?? 61?? AST?? 02/23/24 09:24?? 38 ??High?? 01/06/24?? 21?? ALT?? 02/23/24 09:24?? 58?? 01/06/24?? 28?? BUN?? 02/23/24 09:24?? 13?? 01/06/24?? 17?? Glucose Level?? 02/23/24 09:24?? 226 ??High?? 01/06/24?? 222 ??High?? Creatinine Level?? 02/23/24 09:24?? 1.28?? 01/06/24?? 1.29?? eGFR AA?? 02/23/24 09:24?? 59 ??Low?? 01/06/24?? 58 ??Low?? eGFR Non-AA?? 02/23/24 09:24?? 59 ??Low?? 01/06/24?? 58 ??Low?? Calcium Level?? 02/23/24 09:24?? 9.5?? 01/06/24?? 9.3?? Protein Total?? 02/23/24 09:24?? 8.2?? 01/06/24?? 7.6?? Albumin Level?? 02/23/24 09:24?? 3.2 ??Low?? 01/06/24?? 3.6?? Bilirubin Total?? 02/23/24 09:24?? 0.6?? 01/06/24?? 0.4? Cardiac Isoenzymes?? LATEST RESULTS?? HISTORICAL RESULTS?? Troponin-I?? 02/23/24 09:24?? 195.4 ??Critical?? 01/06/24?? 7.9? [1]??XR Chest 1 View; DomainUser, Generated 02/23/2024 09:22 EDT Electronically Signed on 02/23/2024 11:59 EDT Ariel Omer MD Emergency department Note * Carl Omer: PERFORM Event Display: ED Notes Authored Date: [id number] * Carl Omer: PERFORM Event Display: ED Notes Authored Date: [id number] Patient Care team information Care Team Personnel Name: Ramiro Landry MD Position: No Access Member Role: Informed Provider Address: Address: [address] [address] Care Team Related Persons Name: SEBAS PAYNE Address: Home [address] [place], [place] [id number]
--- OUTSIDE RECORDS SUMMARY | 2024-03-26 15:46 | XMS_ITS | Continuity of Care Document ---
Author Organization [facility] Address [address] [place] [address] Care Team Providers Care Calciner Feeder Name Role Phone Primeau IPH[facility], Ramiro Noe Primary Care Physician Encounter [facility] Date(s): 02/14/24 - 02/14/[address] [address] Discharge Disposition: Home or Self Care Attending [...] BID, # 60 tab, 11 Refill(s), Pharmacy: [facility] Start Date: 10/02/22 Status: [...] Daily, # 90 tab, 4 Refill(s), Pharmacy: [id number] Start Date: 12/20/22 Stop Date: 03/14/24 Status: Ordered Zetia 10 mg oral tablet 10 mg = 1 tab, Oral, Daily, # 90 tab, 4 Refill(s), Pharmacy: [id number] Start Date: 07/02/22 Status: Ordered Problem [...] Access Member Role: Informed Provider Address: Address: [address] [address] [place] Care Team Related Persons Name: ELMER SEBAS E Address: Home [address] [place], [place] [id number]
--- OUTSIDE RECORDS SUMMARY | 2024-03-26 15:46 | XMS_ITS | Continuity of Care Document ---
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 Role Phone [place] IPHCRamiro Primary Care Physician Encounter [facility] Date(s): 09/06/23 - 09/07/[address] [address] Encounter Diagnosis Epididymitis without abscess(Discharge Diagnosis) - 09/06/23 Discharge Disposition: Home or Self Care Attending Physician: Mendy Sheppard MD Admitting Physician: Mendy Sheppard MD Allergies, Adverse Reactions, Alerts No Known Medication Allergies Substance Reaction Severity Status lisinopril Cough Severe Active Assessment and Plan Extracted from: Title:ED Provider Note Author:Mendy Sheppard Ma, MD Date:09/07/23 Assessment/Plan 1.??Epididymitis without abscess??N45.1 Ordered: Bactrim DS 800 mg-160 mg oral tablet, 1 tab, Oral, BID, X 10 days, # 20 tab, 0 Refill(s), 09/17/23 0:30:00 EST, Pharmacy: [id number], 170, cm, 06/25/23 11:06:00 EST, Height, 78.47, kg, 09/06/23 21:51:00 EST, Weight Dosing Discharge Patient, 09/07/23 1:02:00 EST, Constant Indicator ?? Orders: Urine Culture, Urine, Stat collect, ST - Stat, 09/06/23 22:30:00 EST, Once, Nurse collect, Collected, 09/06/23 22:30:00 EST, Print Label, [id number] Patient Education Epididymitis Follow Up With When Contact Information Primary Care Physician Within 1 to 2 weeks, only if needed Additional Instructions: Diagnostic Tests Pending * Urine Culture 09/06/23 Immunizations Given and Recorded Vaccine Date Status Refusal Reason SARS-CoV-2 (COVID-19) mRNA-1273 vaccine 10/13/20 R ecorded SARS-CoV-2 (COVID-19) mRNA-1273 vaccine 09/15/20 R ecorded Medications [facility] - [facility] Prescription 100 EA, USE ONE DAILY DIRECTED, [...] Oral, Daily Start Date: 03/15/22 Status: Ordered Bactrim DS 800 mg-160 mg oral tablet 1 tab, Oral, BID, X 10 days, # 20 tab, 0 Refill(s), 09/16/23 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, Pharmacy: [facility], 170, cm, 06/25/23 11:06:00 EST, Height, 78.47, kg, 09/06/23 21:51:00 EST, Weight Dosing Start Date: 09/07/23 Stop Date: 09/17/23 Status: Ordered clopidogrel 75 mg oral tablet [...] Daily, # 90 tab, 4 Refill(s), Pharmacy: [id number] Start Date: 12/20/22 Stop Date: 03/14/24 Status: Ordered Zetia 10 mg oral tablet 10 mg = 1 tab, Oral, Daily, # 90 tab, 4 Refill(s), Pharmacy: [id number] Start Date: 07/02/22 Status: Ordered Problem [...] grafts arterial Results Laboratory List Name Date .Manual Differential ([facility]) 09/06/23 Basic Metabolic Panel 09/06/23 CBC w/ Diff 09/06/23 Urinalysis Microscopic 09/06/23 Urinalysis with Micro if Indicated and C ulture if Indicated 09/06/23 Most recent to oldest [Reference Range]: 1 WBC [5.0-10.0 x10^3/mcL] 14.2 x10^3/mcL *HI* (09/06/23 10:30 PM) RBC [4.6-6.0 x10^6/mcL] 4.4 x10^6/mcL *LOW* (09/06/23 10:30 PM) Segs Man [40-75 %] 85 % *HI* (09/06/23 10:30 PM) Lymph Man [20-50 %] 7 % *LOW* (09/06/23 10:30 PM) Traverse Man [2-15 %] 8 % (09/06/23 10:30 PM) Eos Man [1-6 %] 0 % *LOW* (09/06/23 10:30 PM) BUN [7-18 mg/dL] 18 mg/dL (09/06/23 10:30 PM) UA Color Yellow (09/06/23 10:30 PM) UA WBC [0-3] 5-10 *ABN* (09/06/23 10:30 PM) Glucose Level [74-106 mg/dL] 208 mg/dL *HI* (09/06/23 10:30 PM) Potassium Level [3.5-5.1 mmol/L] 4.0 mmo l/L (09/06/23 10:30 PM) MCV [80.0-96.0 fL] 78.1 fL *LOW* (09/06/23 10:30 PM) UA Urobilinogen Normal (09/06/23 10:30 PM) RBC Morph Abnormal (09/06/23 10:30 PM) UA Bili [Negative] Negative (09/06/23 10:30 PM) UA Ketones Negative (09/06/23 10:30 PM) MCHC [31.0-35.0 g/dL] 33.2 g/dL (09/06/23 10:30 PM) Sodium Level [136-145 mmol/L] 135 mmol/L *LOW* (09/06/23 10:30 PM) UA RBC [0-2] 0-2 (09/06/23 10:30 PM) UA Leuk Est Negative (09/06/23 10:30 PM) UA Nitrite Negative (09/06/23 10:30 PM) UA Glucose [Negative] Negative (09/06/23 10:30 PM) Hct [41.0-51.0 %] 34.6 % *LOW* (09/06/23 10:30 PM) Microcyte Rare (09/06/23 10:30 PM) UA Bacteria Rare /HPF (09/06/23 10:30 PM) Calcium Level [8.5-10.1 mg/dL] 9.5 mg/dL (09/06/23 10:30 PM) UA Protein 2+ *ABN* (09/06/23 10:30 PM) MCH [26.0-32.0 pg] 26.0 pg (09/06/23 10:30 PM) Hgb [14.0-18.0 g/dL] 11.5 g/dL *LOW* (09/06/23 10:30 PM) UA Blood Trace *ABN* (09/06/23 10:30 PM) UA Mucous Rare /HPF *ABN* (09/06/23 10:30 PM) Band Man [0-5 %] 0 % (09/06/23 10:30 PM) UA Spec Grav 1.020 *NA* (09/06/23 10:30 PM) Platelets [130-450 x10^3/mcL] 173 x10^3/ mcL (09/06/23 10:30 PM) CO2 [21-32 mmol/L] 23 mmol/L (09/06/23 10:30 PM) UA Squam Epithelial [None Seen] Rare (09/06/23 10:30 PM) UA pH 6.0 *NA* (09/06/23 10:30 PM) eGFR Non-AA [>=60] 59 *LOW* (09/06/23 10:30 PM) eGFR AA [>=60] 59 *LOW* (09/06/23 10:30 PM) UA Appear Clear (09/06/23 10:30 PM) Chloride Level [98-107 mmol/L] 98 mmol/L (09/06/23 10:30 PM) RDW-CV [11.5-14.5 %] 15.6 % *HI* (09/06/23 10:30 PM) Ovalocytes Rare (09/06/23 10:30 PM) Slide Review Man Diff (09/06/23 10:30 PM) UA Culture Ind?. Not Indicated (09/06/23 10:30 PM) Abs Neut Man 12.1 x10^3/mcL *NA* (09/06/23 10:30 PM) Creatinine Level [0.70-1.30 mg/dL] 1.28 mg/dL (09/06/23 10:30 PM) Baso Man [0-1 %] 0 % (09/06/23 10:30 PM) Vital Signs Most recent to oldest [Reference Range]: 1 2 Temperature Temporal Artery [36-38 Deg C ] 37.2 Deg C (09/06/23 9:33 PM) Peripheral Pulse Rate [60-100 bpm] 107 b pm *HI* (09/07/23 1:13 AM) 98 bpm (09/06/23 9:33 PM) Respiratory Rate [12-24 br/min] 18 br/mi n (09/07/23 1:13 AM) 19 br/min (09/06/23 9:33 PM) Blood Pressure [90-140/60-90 mmHg] 129/8 2mmHg (09/07/23 1:13 AM) 174/94mmHg *HI* (09/06/23 9:33 PM) Mean Arterial Pressure, Cuff [65-140 mmH g] 121 mmHg (09/06/23 9:33 PM) Weight 78.47 kg (09/06/23 9:33 PM) Weight Dosing 78.470 kg (09/06/23 9:33 PM) Social History Social History Type Response Tobacco Never tobacco user T obacco Use:. Sex Male Hospital Discharge Instructions Patient Education 09/07/2023 00:02:18 Epididymitis Epididymitis Epididymitis is inflammation or swelling of the epididymis. This is caused by an infection. The epididymis is a cord-like structure that is located along the top and back part of the testicle. It collects and stores sperm from the testicle. This condition can also cause pain and swelling of the testicle and scrotum. Symptoms usually startsuddenly (acute epididymitis). Sometimes epididymitis starts gradually and lasts for a while (chronic epididymitis). Chronic epididymitis may be harder to treat. What are the causes? In men ages 20???40, this condition is usually caused by a bacterial infection or a sexually transmitted infection (STI), such as gonorrhea or chlamydia. In men 40 and older, this condition is usually caused by bacteria from a urinary blockage or from abnormalities in the urinary system. These can result from: ??? Having a tube placed into the bladder (urinary catheter). ??? Having an enlarged or inflamed prostate gland. ??? Having recently had urinary tract surgery. ??? Having a problem with a backward flow of urine (retrograde). In men who have a condition that weakens the body's defense system (immune system), such as human immunodeficiency virus (HIV), this condition can be caused by: ??? Other bacteria, including tuberculosis and syphilis. ??? Viruses. ??? Fungi. Sometimes this condition occurs without infection. This may happen because of trauma or repetitive activities such as sports. What increases the risk? You are more likely to develop this condition if you have: ??? Unprotected sex with more than one partner. ??? Anal sex. ??? Had recent surgery. ??? A urinary catheter. ??? Urinary problems. ??? A suppressed immune system. What are the signs or symptoms? This condition usually begins suddenly with chills, fever, and pain behind the scrotum and in the testicle. Other symptoms include: ??? Swelling of the scrotum, testicle, or both. ??? Pain when ejaculating or urinating. ??? Pain in the back or abdomen. ??? Nausea. ??? Itching and discharge from the penis. ??? A frequent need to pass urine. ??? Redness, increased warmth, and tenderness of the scrotum. How is this diagnosed? Your health care provider can diagnose this condition based on your symptoms and medical history. Your health care provider will also do a physical exam to check your scrotum and testicle for swelling, pain, and redness. You may also have other tests, including: ??? Testing of discharge from the penis. ??? Testing your urine for infections, such as STIs. ??? Ultrasound to check for blood flow and inflammation. Your health care provider may test you for other STIs, including HIV. How is this treated? Treatment for this condition depends on the cause. If your condition is caused by a bacterial infection, oral antibiotic medicine may be prescribed. If the bacterial infection has spread to your blood, you may need to receive IV antibiotics. For both bacterial and nonbacterial epididymitis, you may be treated with: ??? Rest. ??? Elevation of the scrotum. ??? Pain medicines. ??? Anti-inflammatory medicines. Surgery may be needed if: ??? You have pus buildup in the scrotum (abscess). ??? You have epididymitis that has not responded to other treatments. Follow these instructions at home: Medicines ??? Take [id number] and prescription medicines only as told by your health care provider. ??? If you were prescribed an antibiotic medicine, take it as told by your health care provider. Donot stop taking the antibiotic even if your condition improves. Sexual activity ??? If your epididymitis was caused by an STI, avoid sexual activity until your treatment is complete. ??? Inform your sexual partner or partners if you test positive for an STI. They may need to be treated. Do not engage in sexual activity with your partner or partners until their treatment is completed. Managing pain and swelling ??? If directed, raise (elevate) your scrotum and apply ice. To do this: ??? Put ice in a plastic bag. ??? Place a small towel or pillow between your legs. ??? Rest your scrotum on the pillow or towel. ??? Place another towel between your skin and the plastic bag. ??? Leave the ice on for 20 minutes, 2???3 times a day. ??? Remove the ice if your skin turns bright red. This is very important. If you cannot feel pain, heat, or cold, you have a greater risk of damage to the area. ??? Keep your scrotum elevated and supported while resting. Ask your health care provider if you should wear a scrotal support, such as a jockstrap. Wear it as told by your health care provider. ??? Try taking a sitz bath to help with discomfort. This is a warm water bath that is taken while you are sitting down. The water should come up to your hips and should cover your buttocks. Do this 3???4 times per day or as told by your health care provider. General instructions ??? Drink enough fluid to keep your urine pale yellow. ??? Return to your normal activities as told by your health care provider. Ask your health care provider what activities are safe for you. ??? Keep all follow-up visits. This is important. Contact a health care provider if: ??? You have a fever. ??? Your pain medicine is not helping. ??? Your pain is getting worse. ??? Your symptoms do not improve within 3 days. Summary ??? Epididymitis is inflammation or swelling of the epididymis. This is caused by an infection. This condition can also cause pain and swelling of the testicle and scrotum. ??? Treatment for this condition depends on the cause. If your condition is caused by a bacterial infection, oral antibiotic medicine may be prescribed. ??? Inform your sexual partner or partners if you test positive for an STI. They may need to be treated. Do not engage in sexual activity with your partner or partners until their treatment is completed. ??? Contact a health care provider if your symptoms do not improve within 3 days. This information is not intended to replace advice given to you by your health care provider. Make sure you discuss any questions you have with your health care provider. Document Revised: 02/07/2022 Document Reviewed: 02/07/2022 ElseMDconnectME Patient Education ?? 2022 [employer]. Follow Up Care 09/06/2023 21:33:17 With:Primary Care Physician Address: When:1 to 2 weeks only if needed Physician Emergency department Note * Mendy Sheppard MD: PERFORM Event Display: ED Note Physician Authored Date: [id number] B[place] PAYNE :1950 Age:72 years Sex:Male Visit Date:09/06/2023 Primary Care Physician: Ramiro Landry MD Basic Information Time Seen: Mendy Sheppard MD / 09/06/2023 21:57 Chief Complaint bilateral lower abdominal pain x4 days that is worsening. urinary frequency q1h w/ burning with urination. testicular pain x4 days left scrotal swelling. denies v/d. intermittent nausea. hist cardiaccath dec stents x2 and bilat inguinal hernia History Of Present Illness: This is a 72-year-old gentleman with a chart listed history of coronary artery??disease??status post CABG,??arthritis of the knee, GERD, hypertension,??diabetes, presents to the ED c/o Lt sided abdominal pain which started 4 days ago. Pt with some lower abdominal pain and urinary urgency in the past few months. Saw his pcp on Jul 02, was found to have inguinal hernia. Pt then had cardiac cath with stents placed. In the past 4 days he feels that his pain is more in the LLQ with some radiation tohis left testicle. He continues to have urinary urgency, no dysuria, no hematuria. No n/v/c/d. No fever/chills. Physical Exam Vitals & Measurements T:??37.2?C ??(Temporal Artery)?? HR:??107??(Peripheral)?? RR:??18?? BP:??129/82?? SpO2:??98%?? WT:??78.47??kg?? O2 Therapy:??Room air?? General: A&Ox3, Calm, no apparent distress, well developed, pleasant and cooperative ?? HEENT: Head ATNC. Eyes: JULIO C. Extraocular Mobility: intact and symmetrical. Conjunctiva: non-injected, anicteric, no discharge. Oral Cavity: moist. Neck: no masses, no crepitus. Lymph Nodes: no cervical lymphadenopathy? Respiratory: CTA bilaterally, no wheezing, no rales/crackles? CV: RRR, normal S1, normal S2, no murmurs, rubs or gallops ?? Abdomen : soft, non-tender, non-distended, no rebound or guarding, no hepatosplenomegaly ?? : Slight Ltt sided testicular swelling and slight redness, no fluctuance, there is mild ttp over the epididymis, small hernias felt b/l ?? Extremities: no le swelling, warm and well-perfused, no cyanosis, capillary refill <2 seconds? Skin: no rash, no lesions, no bruising? Neuro: normal tone, normal strength in all 4 extremities, sensation intact?? Medical Decision Makin-year-old gentleman with a chart listed history of coronary artery??disease??status post CABG,??arthritis of the knee, GERD, hypertension,??diabetes, presents to the ED c/o Lt sided abdominal pain which started 4 days ago. ?? Pt w/ h/o b/l hernias ?? Thorough chart review performed, nursing triage note reviewed, vitals reviewed ?? The patient is well and non toxic appearing with reassuring VS ?? Lt testicle with slight redness and ttp over the left epididymis, no fluctuance - concern for epididymitis, no evidence of orchitis or abscess ?? Labs interpreted by self show mild leukocytosis at 14.2 w/ left shift, Hgb stable at??11.5,??platelets 173,??sodium slightly low at 135, potassium 4, chloride 98, CO2 23,??BUN/creatinine 18/1.28,??UAwith no evidence of infection, ?? CT of the abdomen and and pelvis showed ?? 1. ?? Small bowel pattern suggesting a mild enteritis. No ischemic?? features. No obstruction.?? 2. ?? Mild bronchiectasis and COPD of the lung bases.?? 3. ?? Mild fatty liver infiltration.?? 4. ?? Colonic diverticulosis without acute diverticulitis.?? 5. ?? Bilateral fat containing inguinal hernias without acute?? compromise.?? 6. ?? Degenerative lumbar spine.? Will treat patient for mild epididymitis with Bactrim, f/u pcp 1 -2 weeks Discharge instructions and return precautions discussed, all questions answered. Procedure No Qualifying Data Assessment/Plan 1.??Epididymitis without abscess??N45.1 Ordered: Bactrim DS 800 mg-160 mg oral tablet, 1 tab, Oral, BID, X 10 days, # 20 tab, 0 Refill(s), 09/17/23 0:30:00 EST, Pharmacy: [facility], 170, cm, 06/25/23 11:06:00 EST, Height, 78.47, kg, 09/06/23 21:51:00 EST, Weight Dosing Discharge Patient, 09/07/23 1:02:00 EST, Constant Indicator ?? Orders: Urine Culture, Urine, Stat collect, ST - Stat, 09/06/23 22:30:00 EST, Once, Nurse collect, Collected, 09/06/23 22:30:00 EST, Print Label, [id number] Patient Education Epididymitis Follow Up With When Contact Information Primary Care Physician Within 1 to 2 weeks, only if needed Additional Instructions: Medication Reconciliation New Prescription sulfamethoxazole-trimethoprim (Bactrim DS 800 mg-160 mg oral tablet)1 tab Oral (given by mouth) 2 times a day for 10 Days. Refills: 0. ?? Unchanged acetaminophen (acetaminophen 500 mg oral tablet)2 [...] TWO TABLETS BY MOUTH EVERY DAY. ?? metFORMIN (metFORMIN 1000 mg oral tablet)180 [...] BY MOUTH EVERY DAY. ?? Other Prescription ([facility] Prescription)100 EA, USE ONE DAILY DIRECTED. ?? rosuvastatin (rosuvastatin 40 mg oral tablet)1 [...] with Stent placement (10/13/1997) Medication Administration Given Bactrim DS, 1 tab, Oral. For: Epididymitis without abscess Allergies lisinopril??(Cough) No Known Medication Allergies Social History Alcohol Never Electronic Cigarette/Vaping Electronic Cigarette Use: Never. Substance Use Never Tobacco Never tobacco user Tobacco Use:. Family History Cerebrovascular accident: Father. [place] - myocardial infarction: Father. Lab Results CBC and Differential?? LATEST RESULTS?? WBC?? 09/06/23 22:30?? 14.2 ??High?? RBC?? 09/06/23 22:30?? 4.4 ??Low?? Hgb?? 09/06/23 22:30?? 11.5 ??Low?? Hct?? 09/06/23 22:30?? 34.6 ??Low?? MCV?? 09/06/23 22:30?? 78.1 ??Low?? MCH?? 09/06/23 22:30?? 26.0?? MCHC?? 09/06/23 22:30?? 33.2?? RDW-CV?? 09/06/23 22:30?? 15.6 ??High?? Platelets?? 09/06/23 22:30?? 173?? Segs Man?? 09/06/23 22:30?? 85 ??High?? Lymph Man?? 09/06/23 22:30?? 7 ??Low?? Traverse Man?? 09/06/23 22:30?? 8?? Eos Man?? 09/06/23 22:30?? 0 ??Low?? Baso Man?? 09/06/23 22:30?? 0?? Band Man?? 09/06/23 22:30?? 0?? Abs Neut Man?? 09/06/23 22:30?? 12.1?? RBC Morph?? 09/06/23 22:30?? Abnormal?? Microcyte?? 09/06/23 22:30?? Rare?? Ovalocytes?? 09/06/23 22:30?? Rare?? Slide Review?? 09/06/23 22:30?? Man Diff? Routine Chemistry?? LATEST RESULTS?? Sodium Level?? 09/06/23 22:30?? 135 ??Low?? Potassium Level?? 09/06/23 22:30?? 4.0?? Chloride Level?? 09/06/23 22:30?? 98?? CO2?? 09/06/23 22:30?? 23?? BUN?? 09/06/23 22:30?? 18?? Glucose Level?? 09/06/23 22:30?? 208 ??High?? Creatinine Level?? 09/06/23 22:30?? 1.28?? eGFR AA?? 09/06/23 22:30?? 59 ??Low?? eGFR Non-AA?? 09/06/23 22:30?? 59 ??Low?? Calcium Level?? 09/06/23 22:30?? 9.5? UA Macroscopic?? LATEST RESULTS?? UA Color?? 09/06/23 22:30?? Yellow?? UA Appear?? 09/06/23 22:30?? Clear?? UA Glucose?? 09/06/23 22:30?? Negative?? UA Bili?? 09/06/23 22:30?? Negative?? UA Ketones?? 09/06/23 22:30?? Negative?? UA Spec Grav?? 09/06/23 22:30?? 1.020?? UA Blood?? 09/06/23 22:30?? Trace Abnormal?? UA pH?? 09/06/23 22:30?? 6.0?? UA Protein?? 09/06/23 22:30?? 2+ Abnormal?? UA Urobilinogen?? 09/06/23 22:30?? Normal?? UA Nitrite?? 09/06/23 22:30?? Negative?? UA Leuk Est?? 09/06/23 22:30?? Negative?? UA Culture Ind?.?? 09/06/23 22:30?? Not Indicated? UA Microscopic?? LATEST RESULTS?? UA WBC?? 09/06/23 22:30?? 5-10 Abnormal?? UA RBC?? 09/06/23 22:30?? 0-2?? UA Squam Epithelial?? 09/06/23 22:30?? Rare?? UA Mucous?? 09/06/23 22:30?? Rare Abnormal?? UA Bacteria?? 09/06/23 22:30?? Rare? Electronically Signed on 09/07/23 03:19 AM Mendy Sheppard MD Emergency department Discharge instructions * Mendy Sheppard MD: PERFORM Event Display: ED Discharge Information Authored Date: [id number] B[place] PAYNE :1950 Age:72 years Sex:Male Visit Date:09/06/2023 Primary Care Physician: Ramiro Landry MD Discharge Instructions We would like to thank you for allowing us to assist you with your healthcare needs. The following includes patient education materials and information regarding your injury/illness. Diagnosis from Today's Visit Epididymitis without abscess Discharge Vitals Temperature??(Temporal Artery) 99.0 ??F (37.2 ??C) Heart Rate??(Peripheral) 98 Respiratory Rate?? 19 Blood Pressure?? 174/94?? Weight?? 173.03 lb (78.47 kg) Allergies lisinopril??(Cough) No Known Medication Allergies What to Do Next Instructions from Your Care Team Please take antibiotics for epididymitis??as prescribed for 10 days. ??Follow-up with your primary care doctor for reevaluation in 1 to 2 weeks as needed.?? Return to the emergency department for anynew or worsening symptoms. You Need to Schedule the Following Appointments Follow Up with??Primary Care Physician When:??Within 1 to 2 weeks, only if needed You were treated today on an emergency basis; it may be lind to contact your primary care provider to notify them of your visit today. You may have been referred to your regular doctor or a specialist, please follow up as instructed. If your condition worsens or you can't get in to see the doctor, contact the Emergency Department. Medications What How Much When Why Instructions Next Dose New sulfamethoxazole-trimethoprim (Bactrim DS 800 mg-160 mg oral tablet) 1 tab Oral (given by mouth) 2 times a day Epididymitis without abscess Duration: 10 Days Pickup at [facility] Unchanged acetaminophen (acetaminophen 500 mg oral tablet) 2 tab Oral (given by mouth) Every 6 hours as needed for other (see comment) as needed ?? Unchanged amLODIPine (amLODIPine 5 mg oral tablet) 180 EA, TAKE ONE TABLET BY MOUTH TWICE A DAY ?? Unchanged aspirin (aspirin 81 mg oral delayed release tablet) 1 tab Oral (given by mouth) Every day Unchanged clopidogrel (clopidogrel 75 mg oral tablet) 1 tab Oral (given by mouth) Every day Unchanged ezetimibe (Zetia 10 mg oral tablet) 1 tab Oral (given by mouth) Every day HLD (hyperlipidemia) Unchanged glipiZIDE (glipiZIDE 10 mg oral tablet, extended release) 180 EA, TAKE TWO TABLETS BY MOUTH EVERY DAY ?? Unchanged metFORMIN (metFORMIN 1000 mg oral tablet) 180 EA, TAKE ONE TABLET BY MOUTH TWICE A DAY ?? Unchanged metoprolol (Metoprolol Tartrate 100 mg oral tablet) 180 EA, TAKE ONE TABLET BY MOUTH TWICE A DAY ?? Unchanged multivitamin (multivitamin adult, oral tablet) 1 tab Oral (given by mouth) Every day Unchanged omeprazole (omeprazole 20 mg oral delayed release capsule) 90 EA, TAKE ONE CAPSULE BY MOUTH EVERY DAY ?? Unchanged Other Prescription ([facility] Prescription) 100 EA, USE ONE DAILY DIRECTED ?? Unchanged rosuvastatin (rosuvastatin 40 mg oral tablet) 1 tab Oral (given by mouth) Every day Duration: 90 Days Unchanged sacubitril-valsartan (Entresto 24 mg-26 mg oral tablet) 1 tab Oral (given by mouth) 2 times a day Unchanged semaglutide (Ozempic) Pharmacy Information [facility]: [address], [place] [id number] [phone] Education Materials Epididymitis Epididymitis is inflammation or swelling of the epididymis. This is caused by an infection. The epididymis is a cord-like structure that is located along the top and back part of the testicle. It collects and stores sperm from the testicle. This condition can also cause pain and swelling of the testicle and scrotum. Symptoms usually startsuddenly (acute epididymitis). Sometimes epididymitis starts gradually and lasts for a while (chronic epididymitis). Chronic epididymitis may be harder to treat. What are the causes? In men ages 20???40, this condition is usually caused by a bacterial infection or a sexually transmitted infection (STI), such as gonorrhea or chlamydia. In men 40 and older, this condition is usually caused by bacteria from a urinary blockage or from abnormalities in the urinary system. These can result from: ? Having a tube placed into the bladder (urinary catheter). ? Having an enlarged or inflamed prostate gland. ? Having recently had urinary tract surgery. ? Having a problem with a backward flow of urine (retrograde). In men who have a condition that weakens the body's defense system (immune system), such as human immunodeficiency virus (HIV), this condition can be caused by: ? Other bacteria, including tuberculosis and syphilis. ? Viruses. ? Fungi. Sometimes this condition occurs without infection. This may happen because of trauma or repetitive activities such as sports. What increases the risk? You are more likely to develop this condition if you have: ? Unprotected sex with more than one partner. ? Anal sex. ? Had recent surgery. ? A urinary catheter. ? Urinary problems. ? A suppressed immune system. What are the signs or symptoms? This condition usually begins suddenly with chills, fever, and pain behind the scrotum and in the testicle. Other symptoms include: ? Swelling of the scrotum, testicle, or both. ? Pain when ejaculating or urinating. ? Pain in the back or abdomen. ? Nausea. ? Itching and discharge from the penis. ? A frequent need to pass urine. ? Redness, increased warmth, and tenderness of the scrotum. How is this diagnosed? Your health care provider can diagnose this condition based on your symptoms and medical history. Your health care provider will also do a physical exam to check your scrotum and testicle for swelling, pain, and redness. You may also have other tests, including: ? Testing of discharge from the penis. ? Testing your urine for infections, such as STIs. ? Ultrasound to check for blood flow and inflammation. Your health care provider may test you for other STIs, including HIV. How is this treated? Treatment for this condition depends on the cause. If your condition is caused by a bacterial infection, oral antibiotic medicine may be prescribed. If the bacterial infection has spread to your blood, you may need to receive IV antibiotics. For both bacterial and nonbacterial epididymitis, you may be treated with: ? Rest. ? Elevation of the scrotum. ? Pain medicines. ? Anti-inflammatory medicines. Surgery may be needed if: ? You have pus buildup in the scrotum (abscess). ? You have epididymitis that has not responded to other treatments. Follow these instructions at home: Medicines ? Take [id number] and prescription medicines only as told by your health care provider. ? If you were prescribed an antibiotic medicine, take it as told by your health care provider. Do notstop taking the antibiotic even if your condition improves. Sexual activity ? If your epididymitis was caused by an STI, avoid sexual activity until your treatment is complete. ? Inform your sexual partner or partners if you test positive for an STI. They may need to be treated. Do not engage in sexual activity with your partner or partners until their treatment is completed. Managing pain and swelling ? If directed, raise (elevate) your scrotum and apply ice. To do this: ? Put ice in a plastic bag. ? Place a small towel or pillow between your legs. ? Rest your scrotum on the pillow or towel. ? Place another towel between your skin and the plastic bag. ? Leave the ice on for 20 minutes, 2???3 times a day. ? Remove the ice if your skin turns bright red. This is very important. If you cannot feel pain, heat, or cold, you have a greater risk of damage to the area. ? Keep your scrotum elevated and supported while resting. Ask your health care provider if you shouldwear a scrotal support, such as a jockstrap. Wear it as told by your health care provider. ? Try taking a sitz bath to help with discomfort. This is a warm water bath that is taken while you are sitting down. The water should come up to your hips and should cover your buttocks. Do this 3???4times per day or as told by your health care provider. General instructions ? Drink enough fluid to keep your urine pale yellow. ? Return to your normal activities as told by your health care provider. Ask your health care provider what activities are safe for you. ? Keep all follow-up visits. This is important. Contact a health care provider if: ? You have a fever. ? Your pain medicine is not helping. ? Your pain is getting worse. ? Your symptoms do not improve within 3 days. Summary ? Epididymitis is inflammation or swelling of the epididymis. This is caused by an infection. This condition can also cause pain and swelling of the testicle and scrotum. ? Treatment for this condition depends on the cause. If your condition is caused by a bacterial infection, oral antibiotic medicine may be prescribed. ? Inform your sexual partner or partners if you test positive for an STI. They may need to be treated. Do not engage in sexual activity with your partner or partners until their treatment is completed. ? Contact a health care provider if your symptoms do not improve within 3 days. This information is not intended to replace advice given to you by your health care provider. Make sure you discuss any questions you have with your health care provider. Document Revised: 02/07/2022 Document Reviewed: 02/07/2022 [employer] Patient Education ?? 2022 [employer] Tests Performed Medications and Immunizations Administered Given Bactrim DS, 1 tab, Oral. For: Epididymitis without abscess Lab Test Name Test Result Date/Time WBC 14.2 x10^3/mcL 09/06/2023 22:30 EST RBC 4.4 x10^6/mcL 09/06/2023 22:30 EST Hgb 11.5 g/dL 09/06/2023 22:30 EST Hct 34.6 % 09/06/2023 22:30 EST MCV 78.1 fL 09/06/2023 22:30 EST MCH 26.0 pg 09/06/2023 22:30 EST MCHC 33.2 g/dL 09/06/2023 22:30 EST RDW-CV 15.6 % 09/06/2023 22:30 EST Platelets 173 x10^3/mcL 09/06/2023 22:30 EST Segs Man 85 % 09/06/2023 22:30 EST Lymph Man 7 % 09/06/2023 22:30 EST Traverse Man 8 % 09/06/2023 22:30 EST Eos Man 0 % 09/06/2023 22:30 EST Baso Man 0 % 09/06/2023 22:30 EST Band Man 0 % 09/06/2023 22:30 EST Abs Neut Man 12.1 x10^3/mcL 09/06/2023 22:30 EST RBC Morph Abnormal 09/06/2023 22:30 EST Microcyte Rare 09/06/2023 22:30 EST Ovalocytes Rare 09/06/2023 22:30 EST Slide Review Man Diff 09/06/2023 22:30 EST Sodium Level 135 mmol/L 09/06/2023 22:30 EST Potassium Level 4.0 mmol/L 09/06/2023 22:30 EST Chloride Level 98 mmol/L 09/06/2023 22:30 EST CO2 23 mmol/L 09/06/2023 22:30 EST BUN 18 mg/dL 09/06/2023 22:30 EST Glucose Level 208 mg/dL 09/06/2023 22:30 EST Creatinine Level 1.28 mg/dL 09/06/2023 22:30 EST eGFR AA 59 09/06/2023 22:30 EST eGFR Non-AA 59 09/06/2023 22:30 EST Calcium Level 9.5 mg/dL 09/06/2023 22:30 EST UA Color YELLOW. 09/06/2023 22:30 EST UA Appear CLEAR. 09/06/2023 22:30 EST UA Glucose NEGATIVE 09/06/2023 22:30 EST UA Bili NEGATIVE 09/06/2023 22:30 EST UA Ketones NEGATIVE 09/06/2023 22:30 EST UA Spec Grav 1.020 09/06/2023 22:30 EST UA Blood TRACE. 09/06/2023 22:30 EST UA pH 6.0 09/06/2023 22:30 EST UA Protein 2+ 09/06/2023 22:30 EST UA Urobilinogen 0.2 Uro 09/06/2023 22:30 EST UA Nitrite NEGATIVE 09/06/2023 22:30 EST UA Leuk Est NEGATIVE 09/06/2023 22:30 EST UA Culture Ind?. 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
--- OUTSIDE RECORDS SUMMARY | 2024-03-26 15:46 | XMS_ITS | Continuity of Care Document ---
Author Organization [facility] Address [address] [place] [address] Care Team Providers Care Unit Receptionist Name Role Phone au [facility] Primary [facility] Physician Encounter [facility] Date(s): 03/09/24 - 03/13/[address] [id number] Encounter Diagnosis Altered mental status(Discharge Diagnosis) - 03/09/24 Hypomagnesemia(Discharge Diagnosis) - 03/09/24 Coronary arteriosclerosis(Discharge Diagnosis) - 03/09/24 Gastroesophageal reflux disease(Discharge Diagnosis) - 03/09/24 Hypertensive disorder(Discharge Diagnosis) - 03/09/24 Type 2 diabetes mellitus(Discharge Diagnosis) - 03/09/24 Hyperlipidemia(Discharge Diagnosis) - 03/09/24 Hypoxia(Discharge Diagnosis) - 03/12/24 Hyponatremia(Discharge Diagnosis) - 03/13/24 Discharge Disposition: Home or Self Care Attending Physician: Aniket Michael MD Admitting Physician: Vale Rivera MD Allergies, Adverse Reactions, Alerts No Known Medication Allergies Substance Criticality Severity Reaction Reaction Severity Status lisinopril High criticality Severe Cough Ac tive Assessment and Plan Extracted from: Title:Discharge Note Author:Aniket Michael MD Date:03/13/24 Discharge Plan 1.??Altered mental status??R41.82 ??POA.?? Seen by teleneurology.?? Patient is status post CVA with tPA 2 weeks prior to admission at [facility].?? Medication recommendation at their discharge with aspirin Plavix.?? Repeat imaging to [facility] showed some possible hemorrhage conversion??on MRI.?? Discussed with teleneurology and recommendation was to discontinue aspirin and Plavix.?? Repeat CT performed and discussed with teleneurology on 03/13/2024.?? Given the patient's history??of significant 75% stenosis of his right internal carotid??their recommendation now is to start aspirin 81 mg daily.?? Repeat CT scan 1 week??during follow-up with neurology??and then consider dual antiplatelet therapy at that time if stable.?? New prescriptions provided 2.??Hypomagnesemia??E83.42 ??POA, continue throughout patient's hospitalization and received additional magnesium supplementation on day of discharge 3.??Coronary arteriosclerosis??I25.10 ??History of CAD status??CABG. ??Recent NSTEMI and cardiac catheterization at [facility].?? No lesions requiring intervention.?? Patient's other medications continued and now patient will be on ASA at the??recommendation of neurology. ??Follow-up at [facility] as an outpatient 4.??Gastroesophageal reflux disease??K21.9 ??Continue omeprazole 5.??Hypertensive disorder??I10 ??Metoprolol, Entresto,??Lasix 6.??Type 2 diabetes mellitus??E11.9 ??Oral medications resumed at discharge. 7.??Hyperlipidemia??E78.5 ??? Mixed, statin 8.??Hypoxia??R09.02 ??Intermittent during patient's hospital stay.?? Patient did develop pulmonary edema which was responsive to Lasix.?? Will DC on Lasix 40 mg daily. ??This can be reevaluated when he follows up at [facility]. 9.??Hyponatremia??E87.1 ??Chronic.?? Unfortunately patient was not started back on his??sodium chloride tablets at admission.?? Resumed during??the latter half of his stay.?? Dosage increased to??2 tablets 3 times daily.?? Recommend renal panel at follow-up at [facility] and further adjustment as needed Orders: aspirin 81 mg oral tablet, chewable, 81 mg = 1 tab, Chewed, Daily, # 30 tab, 0 Refill(s), Pharmacy: [facility], 170, cm, 03/13/24 7:10:00 EDT, Height, 75.8, kg, 03/09/24 4:58:00 EDT, Weight Dosing furosemide 40 mg oral tablet, 40 mg = 1 tab, Oral, Daily, # 30 tab, 0 Refill(s), Pharmacy: [facility], 170, cm, 03/13/24 7:10:00 EDT, Height, 75.8, kg, 03/09/24 4:58:00 EDT, Weight Dosing rosuvastatin 40 mg oral tablet, 40 mg = 1 tab, Oral, Daily, # 30 tab, 0 Refill(s), Pharmacy: [facility], 170, cm, 03/13/24 7:10:00 EDT, Height, 75.8, kg, 03/09/24 4:58:00 EDT, Weight Dosing sodium chloride 1 g oral tablet, 2 g = 2 tab, Oral, Tab, TID, First Dose: 03/13/24 9:00:00 EDT, Routine sodium chloride 1 g oral tablet, 2 g = 2 tab, Oral, TID, # 180 tab, 0 Refill(s), Pharmacy: [facility], 170, cm, 03/13/24 7:10:00 EDT, Height, 75.8, kg, 03/09/24 4:58:00 EDT, Weight Dosing tamsulosin 0.4 mg oral capsule, 0.4 mg = 1 cap, Oral, every night at bedtime, # 30 cap, 0 Refill(s), Pharmacy: [facility], 170, cm, 03/13/24 7:10:00 EDT, Height, 75.8, kg, 03/09/24 4:58:00 EDT, Weight Dosing Discharge Patient, 03/13/24 17:15:00 EDT, Home with Home Health, Constant Indicator Fluid Restriction, 03/13/24 8:25:00 EDT, Cardiac, Fluid Permitted: 1500 mL Follow Up With When Contact Information [facility], Ramiro Noe MD 03/26/2024 02:00 PM EDT [address] [phone] Additional Instructions: With Tamia Tsai Extracted from: Title:Progress/SOAP Note Author:Aniket Michael MD Date:03/12/24 1.??Altered mental status??R41.82 ??POA.?? Seen by teleneurology.?? Patient status post CVA with tPA 2 weeks prior to admission at [facility].?? Medication recommendation at their discharge was aspirin and Plavix.?? Repeat imaging at [facility] showed some possible hemorrhagic??conversion on MRI.?? Discussed with??teleneurology and recommendation is to discontinue ASA and Plavix.?? Repeat CT scan??performed??with results sent to teleneurology. ??Awaiting callback further further recommendations. 2.??Hypomagnesemia??E83.42 ??POA, replete, recheck,??remains low and will give additional 2 g magnesium today.?? Patient hypokalemic again.?? More aggressive??replacement today given??diuresis. 3.??Coronary arteriosclerosis??I25.10 ??History of CAD? status post CABG.?? Recent NSTEMI??and cardiac catheterization at [facility].?? No lesions requiring intervention.?? With the exception of patient's Plavix and ASA??we are continuing other??routine medications per the recommendation 4.??Gastroesophageal reflux disease??K21.9 ??Continue omeprazole 5.??Hypertensive disorder??I10 ??Toprol, Entresto 6.??Type 2 diabetes mellitus??E11.9 ??Oral medications being held.?? Patient's blood sugars more elevated in the last 24 hours.?? Continue fingerstick blood sugar and sliding scale. 7.??Hyperlipidemia??E78.5 ??? Mixed, statin 8.??Hypoxia??R09.02 ??Intermittently requiring oxygen during his stay.?? Initially showing signs of pulmonary edema on chest x-ray with good results after IV Lasix and had weaned to room air.?? Patient had O2 requirements up to 4 L last evening and now on 2 L at 96%.?? Given additional Lasix today.?? Has lower extremity edema and Doppler examination ordered.?? Positive will get a CT scan of chest with contrast to rule out PE Orders: Lasix, 40 mg = 1 tab, Oral, Tab, Daily for 30 days, First Dose: 03/12/24 9:00:00 EDT, Stop Date: 04/11/24 8:59:00 EDT, Physician Stop, Routine Incentive Spirometry by Patient, 03/12/24 7:40:00 EDT, Atelectasis US Lower Ext Venous Duplex Bilateral, 03/12/24 0:00:00 EDT, Routine, Reason: EDEMA, Reason: EDEMA, Exam to be performed outside organization? Extracted from: Title:H & P Author:Vale Rivera MD Date: 1.??Altered mental status??R 41.82 ??73-year-old male who presents to the emergency department for altered mental status??according to teleneurology they felt his NIHSS score was 3. ??Patient did recently have a stroke couple weeks prior??while in hospital for NSTEMI.?? Continue aspirin 81 mg p.o. daily, Plavix 75 mg p.o. daily which is his home medications. ??Continue statin. ??Monitor on telemetry. ??Will obtain MRI of the brain without contrast.?? Admitting as inpatient due to??his strokelike symptoms as well as due to the severity of his hypomagnesemia of 0.7. ??PT and OT to evaluate.?? Depending on??results of MRI will consider??further workup with echocardiogram with bubble study.?? Will hold Entresto to allow for permissive hypertension. 2.??Hypomagnesemia??E83.42 ??Magnesium level 0.7 and symptomatic. ??Giving 3 g of magnesium sodium sulfate IV??will get start magnesium oxide 400 mg p.o. daily. ??Continue to monitor. ??Monitor on telemetry.?? 3.??Coronary arteriosclerosis??I25.10 ??History of coronary artery disease status post CABG with recent NSTEMI and cardiac cath a couple weeks prior with no intervenable??lesions. ??Continue aspirin 81 mg p.o. daily, Plavix 75 mg p.o. daily, statin??and metoprolol tartrate 100 mg p.o. twice daily. 4.??Gastroesophageal reflux disease??K21.9 ??Continue omeprazole 20 mg p.o. daily. 6.??Type 2 diabetes mellitus??E11.9 ??Holding home oral diabetic agents. ??Continue insulin sliding scale, Chemstrips AC plus at bedtime and diabetic diet. 7.??Hyperlipidemia??E78.5 ??Continue statin. Orders: acetaminophen, 650 mg = 2 tab, Oral, Tab, every 6 hr, PRN pain, mild, First Dose: 03/09/24 8:55:00 EDT, STAT aspirin, 81 mg = 1 tab, Oral, Tab-Chew, Daily, First Dose: 03/09/24 7:58:00 EDT, STAT atorvastatin, 80 mg = 2 tab, Oral, Tab, Daily, First Dose: 03/09/24 17:00:00 EDT, Routine clopidogrel, 75 mg = 1 tab, Oral, Tab, Daily, First Dose: 03/09/24 7:58:00 EDT, STAT GlucaGen, 1 mg = 1 EA, Intramuscular, Kit, As Directed, PRN low blood sugar, First Dose: 03/09/24 7:59:00 EDT, STAT glucose 40% oral gel, 15 g = 37.5 mL, Oral, Gel, As Directed, PRN low blood sugar, First Dose: 03/09/24 7:59:00 EDT, STAT Dextrose 50% intravenous solution, 25 g 50 mL, IV Push, Soln-IV, As Directed, PRN low blood sugar, First Dose: 03/09/24 7:59:00 EDT, STAT Dextrose 50% intravenous solution, 12.5 g 25 mL, IV Push, Soln-IV, As Directed, PRN low blood sugar, First Dose: 03/09/24 7:59:00 EDT, STAT glucose 40% oral gel, 30 g = 75 mL, Oral, Gel, As Directed, PRN low blood sugar, First Dose: 03/09/24 7:59:00 EDT, STAT insulin lispro (HumaLog) correction- sensitive, Sensitive Scale, Subcutaneous, Soln, QID(ACHS), First Dose: 03/09/24 11:30:00 EDT, Routine lidocaine 1% injectable solution, 1 mg 0.1 mL, Intradermal, Soln, As Directed, PRN other (see comment), First Dose: 03/09/24 8:55:00 EDT, STAT magnesium oxide, 400 mg = 1 tab, Oral, Tab, Daily for 30 days, First Dose: 03/09/24 9:00:00 EDT, Stop Date: 04/08/24 8:59:00 EDT, Physician Stop, Routine magnesium sulfate, 1 g = 100 mL, IV Piggyback, Soln-IV, every 1 hr for 2 doses, Administer over: 1 hr, First Dose: 03/09/24 8:01:00 EDT, Stop Date: 03/09/24 10:00:00 EDT, Physician Stop, Routine, 100 mL/hr metoprolol tartrate, 100 mg = 4 tab, Oral, Tab, BID, First Dose: 03/09/24 9:00:00 EDT, Physician Stop, Routine omeprazole, 20 mg = 1 cap, Oral, Cap-DR, Daily, First Dose: 03/10/24 6:00:00 EDT, Physician Stop, Routine ondansetron, 4 mg = 2 mL, IV Push, Soln, every 6 hr, PRN nausea/vomiting, First Dose: 03/09/24 8:55:00 EDT, STAT Normal Saline Flush, 10 mL, IV Push, Soln, every 12 hr (cris), First Dose: 03/09/24 8:55:00 EDT, STAT Sodium Chloride 0.9% 1,000 mL, Total Volume (mL): 1,000, 1,000 mL, Soln-IV, IV, 30 mL/hr, Start Date: 03/09/24 8:55:00 EDT, 75.8 kg, Populate Charting Weight From Order Sodium Chloride 0.9% 1,000 mL, Total Volume (mL): 1,000, mL, 1,000 mL, Soln-IV, IV, 75 mL/hr, Start Date: 03/09/24 9:11:00 EDT, 75.8 kg, Populate Charting Weight From Order Ambulate as Tolerated, 03/09/24 8:55:00 EDT, PRN Basic Metabolic Panel, Blood, Routine, 03/09/24 8:55:00 EDT, every morning, for 3 days, Lab Collect Blood Glucose Monitoring POC, 03/09/24 7:59:00 EDT, QID(ACHS), 03/09/24 11:30:00 EDT Cardiac Monitoring, 03/09/24 8:55:00 EDT, Telemetry CBC w/ Diff, Blood, Routine, 03/09/24 8:55:00 EDT, every morning, for 3 days, Lab Collect Consult to Pharmacy, 03/09/24 8:55:00 EDT, Medication History Consult, PCU General Admission Orders [facility] Diet Order, 03/09/24 8:55:00 EDT, Diabetic Magnesium Level, Blood, Routine, 03/09/24 8:55:00 EDT, every morning, for 3 days, Lab Collect MRI Brain w/o Contrast, 03/09/24 15:00:00 EDT, Stat, Reason: ALTERED MENTAL STATUS, FACIAL DROOP, LOWER EXTREMITY ATAXIA, R/O STROKE, Reason: ALTERED MENTAL STATUS, FACIAL DROOP, LOWER EXTREMITY ATAXIA, R/O STROKE, Exam to be performed outside organization? Notify Provider of Vital Signs, 03/09/24 8:55:00 EDT, SpO2 < 92% on 2L O2 NC, T > 101.5, HR > 100, HR < 50, SBP greater than 160, SBP less than 90, DBP greater than 90, DBP less than 50, Resp Rate greater than 30, Resp Rate less than 8, Constant Indicator Nursing Task, 03/09/24 7:59:00 EDT, Constant order Nursing Task, 03/09/24 7:59:00 EDT, Constant order OT Evaluation and Treatment Acute., 03/09/24 9:17:00 EDT, Once PSO Admit to Inpatient, Semi-Private Telemetry, Inpatient, Vale Rivera MD, 03/09/24 7:56:00 EDT, 03/09/24 7:56:00 EDT, 03/09/24 7:56:00 EDT, 2 midnights or more but less than 96 hrs PT Evaluation and Treatment Acute., 03/09/24 9:17:00 EDT, Once Resuscitation Status, 03/09/24 8:55:00 EDT, Full Code Sequential Compression Devices (SCD's), 03/09/24 8:55:00 EDT, Constant Order, Intermittent pneumatic compression, 03/09/24 8:55:00 EDT Vital Signs, 03/09/24 8:55:00 EDT, Constant order, every 4 hrs Weight, 03/09/24 8:55:00 EDT, PRN, Admission and Discharge Functional Status 03/13/24 Personal Care Provided Diaper/Brief duarte ged, Gown change, Hair care, Linen change, Janelle care, Shampoo, Shower 03/13/24 Lunch Percent 100 03/13/24 Anti-Embolism Device Activity: Removed Anti-Embolism Device Removal Reason: Oth er: OOB 03/13/24 Breakfast Percent 80 03/13/24 Activity Status ADL Up to toilet Assistive Device Walker 03/10/24 Living Environment No Living Environmen t Information Available Lives In Multilevel home Lives With Spouse Living Situation Home with family car e, Home with home health Home Barriers None Patient's Responsibilities Personal ADL Home Equipment Elevated toilet seat , Shower chair, Walker Professional Skilled Services Occupation al Therapy, Physical Therapy Special Services and Community Resources None 03/09/24 Dinner Percent 100 03/09/24 Recent Travel History No recent travel Other exposure to Infectious Disease Non e Immunizations Given and Recorded Vaccine Date Status Refusal Reason SARS-CoV-2 (COVID-19) mRNA-1273 vaccine 10/13/20 R ecorded SARS-CoV-2 (COVID-19) mRNA-1273 vaccine 09/15/20 R ecorded Medications [facility] Prescription 100 EA, USE ONE DAILY DIRECTED, 0 Refill(s) Start Date: 12/20/22 Status: Ordered acetaminophen 500 mg oral tablet 1,000 mg = 2 tab, Oral, every 6 hr, PRN other (see comment), as needed Start Date: 03/15/22 Status: Ordered amLODIPine 5 mg oral tablet 5 mg = 1 tab, Oral, BID, 180 EA, TAKE ONE TABLET BY MOUTH TWICE A DAY, 0 Refill(s) Start Date: 12/20/22 Status: Ordered aspirin 81 mg oral tablet, chewable 81 mg = 1 tab, Chewed, Daily, # 30 tab, 0 Refill(s), Pharmacy: [facility], 170, cm, 03/13/24 7:10:00 EDT, Height, 75.8, kg, 03/09/24 4:58:00 EDT, Weight Dosing Start Date: 03/13/24 Stop Date: 04/12/24 Status: Ordered Entresto 24 mg-26 mg oral tablet 1 tab, Oral, BID, # 60 tab, 11 Refill(s), Pharmacy: [facility] Start Date: 10/02/22 Status: Ordered furosemide 40 mg oral tablet 40 mg = 1 tab, Oral, Daily, # 30 tab, 0 Refill(s), Pharmacy: [facility], 170, cm, 03/13/24 7:10:00 EDT, Height, 75.8, kg, 03/09/24 4:58:00 EDT, Weight Dosing Start Date: 03/14/24 Status: Ordered glipiZIDE 10 mg oral tablet, extended release 20 mg = 2 tab, Oral, Daily, 180 EA, TAKE TWO TABLETS BY MOUTH EVERY DAY, 0 Refill(s) Start Date: 12/20/22 Status: Ordered ketoconazole 2% topical cream 1 lizet, Topical, Daily, # 15 g, 0 Refill(s) Start Date: 03/09/24 Status: Ordered metFORMIN 1000 mg oral tablet 1,000 mg = 1 tab, Oral, BID, 180 EA, TAKE ONE TABLET BY MOUTH TWICE A DAY, 0 Refill(s) Start Date: 12/20/22 Status: Ordered Metoprolol Tartrate 100 mg oral tablet 100 mg = 1 tab, Oral, BID, 180 EA, TAKE ONE TABLET BY MOUTH TWICE A DAY, 0 Refill(s) Start Date: 12/20/22 Status: Ordered multivitamin adult, oral tablet 1 tab, Oral, Daily Start Date: 03/15/22 Status: Ordered nitroglycerin 0.4 mg sublingual tablet 0.4 mg = 1 tab, Sublingual, every 5 min, PRN as needed for chest pain, # 100 tab, 0 Refill(s) Start Date: 03/09/24 Status: Ordered pantoprazole 40 mg oral delayed release tablet 40 mg = 1 tab, Oral, Daily, # 30 tab, 0 Refill(s) Start Date: 03/09/24 Status: Ordered rosuvastatin 40 mg oral tablet 40 mg = 1 tab, Oral, Daily, # 30 tab, 0 Refill(s), Pharmacy: [facility], 170, cm, 03/13/24 7:10:00 EDT, Height, 75.8, kg, 03/09/24 4:58:00 EDT, Weight Dosing Start Date: 03/13/24 Status: Ordered sodium chloride 1 g oral tablet 1 g = 1 tab, Oral, TID, 0 Refill(s) Start Date: 03/09/24 Status: Ordered sodium chloride 1 g oral tablet 2 g = 2 tab, Oral, TID, # 180 tab, 0 Refill(s), Pharmacy: [facility], 170, cm, 03/13/24 7:10:00 EDT, Height, 75.8, kg, 03/09/24 4:58:00 EDT, Weight Dosing Start Date: 03/13/24 Status: Ordered tamsulosin 0.4 mg oral capsule 0.4 mg = 1 cap, Oral, every night at bedtime, # 30 cap, 0 Refill(s), Pharmacy: [facility], 170, cm, 03/13/24 7:10:00 EDT, Height, 75.8, kg, 03/09/24 4:58:00 EDT, Weight Dosing Start Date: 03/13/24 Status: Ordered traMADol 50 mg oral tablet 50 mg = 1 tab, Oral, every 12 hr, PRN as needed for pain, 0 Refill(s) Start Date: 03/09/24 Status: Ordered Zetia 10 mg oral tablet 10 mg = 1 tab, Oral, Daily, # 90 tab, 4 Refill(s), Pharmacy: [facility] Start Date: 07/02/22 Status: Ordered Mental Status 03/09/24 Eye Opening Response Rey Spontaneous ly Best Verbal Response [place] Oriented Best Motor Response Rey Obeys comman ds Rey Coma Score 15 Problem List Condition Confirmation Course Effective Dates [...] grafts arterial Results Laboratory List Name Date Glucose POCT 03/13/24 Glucose POCT 03/13/24 Basic Metabolic Panel 03/13/24 CBC w/ Diff 03/13/24 Magnesium Level 03/13/24 .Morphology ([facility]) 03/13/24 Glucose POCT 03/13/24 Automated Diff 03/13/24 Renal Function Panel 03/12/24 .Manual Differential ([facility]) 03/12/24 Basic Metabolic Panel 03/12/24 CBC w/ Diff 03/12/24 Magnesium Level 03/12/24 Automated Diff 03/11/24 .Morphology ([facility]) 03/11/24 CBC w/ Diff 03/11/24 Magnesium Level 03/11/24 Automated Diff 03/10/24 SARS-CoV-2 (COVID-19) RNA (ID Now) Urinalysis Microscopic 03/09/24 Urinalysis with Micro if Indicated and C ulture if Indicated 03/09/24 Comprehensive Metabolic Panel (CMP) 03/09 NT- Pro BNP 03/09/24 Troponin-I 03/09/24 Most recent to oldest [Reference Range]: 1 2 3 WBC [5.0-10.0 x10^3/mcL] 10.4 x10^3/mcL *HI* (03/13/24 7:15 AM) 9.1 x10^3/mcL (03/12/24 6:55 AM) 8.1 x10^3/mcL (03/11/24 6:55 AM) RBC [4.6-6.0 x10^6/mcL] 3.7 x10^6/mcL *LOW* (03/13/24 7:15 AM) 3.2 x10^6/mcL *LOW* (03/12/24 6:55 AM) 3.5 x10^6/mcL *LOW* (03/11/24 6:55 AM) Segs Man [40-75 %] 82 % *HI* (03/12/24 6:55 AM) Lymph Man [20-50 %] 6 % *LOW* (03/12/24 6:55 AM) Neutro Auto [40.0-75.0 %] 73.0 % (03/13/24 7:15 AM) 77.8 % *HI* (03/11/24 6:55 AM) 72.3 % (03/10/24 6:45 AM) Lymph Auto [20.0-50.0 %] 12.5 % *LOW* (03/13/24 7:15 AM) 10.4 % *LOW* (03/11/24 6:55 AM) 12.6 % *LOW* (03/10/24 6:45 AM) Clark Auto [2.0-15.0 %] 11.1 % (03/13/24 7:15 AM) 9.4 % (03/11/24 6:55 AM) 10.2 % (03/10/24 6:45 AM) Basophil Auto [0.0-1.0 %] 0.7 % (03/13/24 7:15 AM) 0.4 % (03/11/24 6:55 AM) 0.9 % (03/10/24 6:45 AM) Clark Man [2-15 %] 11 % (03/12/24 6:55 AM) Eos Man [1-6 %] 1 % (03/12/24 6:55 AM) BUN [7-18 mg/dL] 13 mg/dL (03/13/24 7:15 AM) 11 mg/dL (03/12/24 11:09 AM) 12 mg/dL (03/12/24 6:55 AM) Glucose POC [74-106 mg/dL] 196 mg/dL *HI* (03/13/24 4:25 PM) 183 mg/dL *HI* (03/13/24 11:22 AM) 204 mg/dL *HI* (03/13/24 7:10 AM) UA Color Yellow (03/09/24 5:12 AM) UA WBC [0-3] 0-3 (03/09/24 5:12 AM) Glucose Level [74-106 mg/dL] 196 mg/dL *HI* (03/13/24 7:15 AM) 215 mg/dL *HI* (03/12/24 11:09 AM) 304 mg/dL *HI* (03/12/24 6:55 AM) Potassium Level [3.5-5.1 mmol/L] 3.6 mmol/L (03/13/24 7:15 AM) 3.8 mmol/L (03/12/24 11:09 AM) 3.6 mmol/L (03/12/24 6:55 AM) MCV [80.0-96.0 fL] 79.2 fL *LOW* (03/13/24 7:15 AM) 79.7 fL *LOW* (03/12/24 6:55 AM) 79.3 fL *LOW* (03/11/24 6:55 AM) UA Urobilinogen Positive *NA* (03/09/24 5:12 AM) RBC Morph Abnormal (03/13/24 7:15 AM) Abnormal (03/12/24 6:55 AM) Abnormal (03/11/24 6:55 AM) UA Bili [Negative] Negative *NA* (03/09/24 5:12 AM) UA Ketones 1+ *NA* (03/09/24 5:12 AM) AST [15-37 unit/L] 30 unit/L (03/09/24 5:05 AM) ALT [16-63 unit/L] 48 unit/L (03/09/24 5:05 AM) MCHC [31.0-35.0 g/dL] 34.1 g/dL (03/13/24 7:15 AM) 34.7 g/dL (03/12/24 6:55 AM) 34.1 g/dL (03/11/24 6:55 AM) Troponin-I [0.0-76.2 pg/mL] 12.9 pg/mL (03/09/24 5:05 AM) Sodium Level [136-145 mmol/L] 123 mmol/L 1 *CRIT* (03/13/24 7:15 AM) 124 mmol/L 2 *CRIT* (03/12/24 11:09 AM) 124 mmol/L 3 *CRIT* (03/12/24 6:55 AM) UA RBC [0-2] 0-2 (03/09/24 5:12 AM) UA Leuk Est Negative (03/09/24 5:12 AM) UA Nitrite Negative *NA* (03/09/24 5:12 AM) UA Glucose [Negative] Negative *NA* (03/09/24 5:12 AM) Hct [41.0-51.0 %] 29.0 % *LOW* (03/13/24 7:15 AM) 25.1 % *LOW* (03/12/24 6:55 AM) 27.6 % *LOW* (03/11/24 6:55 AM) Microcyte Rare (03/13/24 7:15 AM) Rare (03/12/24 6:55 AM) Rare (03/11/24 6:55 AM) UA Bacteria None Seen /HPF (03/09/24 5:12 AM) Hypochromia Rare (03/13/24 7:15 AM) Calcium Level [8.5-10.1 mg/dL] 8.9 mg/dL (03/13/24 7:15 AM) 8.3 mg/dL *LOW* (03/12/24 11:09 AM) 8.2 mg/dL *LOW* (03/12/24 6:55 AM) Phosphorus Level [2.6-4.7 mg/dL] 2.0 mg/dL *LOW* (03/12/24 11:09 AM) Albumin Level [3.4-5.0 g/dL] 2.7 g/dL *LOW* (03/12/24 11:09 AM) 2.8 g/dL *LOW* (03/09/24 5:05 AM) Protein Total [6.4-8.2 g/dL] 7.3 g/dL (03/09/24 5:05 AM) UA Protein 1+ *ABN* (03/09/24 5:12 AM) Poik Rare (03/12/24 6:55 AM) MCH [26.0-32.0 pg] 27.0 pg (03/13/24 7:15 AM) 27.6 pg (03/12/24 6:55 AM) 27.0 pg (03/11/24 6:55 AM) Magnesium Level [1.8-2.4 mg/dL] 1.5 mg/dL *LOW* (03/13/24 7:15 AM) 1.6 mg/dL *LOW* (03/12/24 6:55 AM) 1.2 mg/dL *LOW* (03/11/24 6:55 AM) Neutro Absolute 7.6 x10^3/mcL *NA* (03/13/24 7:15 AM) 6.3 x10^3/mcL *NA* (03/11/24 6:55 AM) 4.7 x10^3/mcL *NA* (03/10/24 6:45 AM) Bilirubin Total [0.2-1.0 mg/dL] 0.8 mg/dL (03/09/24 5:05 AM) Hgb [14.0-18.0 g/dL] 9.9 g/dL *LOW* (03/13/24 7:15 AM) 8.7 g/dL *LOW* (03/12/24 6:55 AM) 9.4 g/dL *LOW* (03/11/24 6:55 AM) Alk Phos [46-146 unit/L] 88 unit/L (03/09/24 5:05 AM) UA Blood Negative (03/09/24 5:12 AM) UA Mucous None Seen /HPF (03/09/24 5:12 AM) Band Man [0-5 %] 0 % (03/12/24 6:55 AM) UA Spec Grav 1.010 *NA* (03/09/24 5:12 AM) Polychrom Rare (03/13/24 7:15 AM) Platelets [130-450 x10^3/mcL] 292 x10^3/mcL (03/13/24 7:15 AM) 236 x10^3/mcL (03/12/24 6:55 AM) 264 x10^3/mcL (03/11/24 6:55 AM) CO2 [21-32 mmol/L] 23 mmol/L (03/13/24 7:15 AM) 24 mmol/L (03/12/24 11:09 AM) 23 mmol/L (03/12/24 6:55 AM) UA Squam Epithelial [None Seen] Rare (03/09/24 5:12 AM) Macrocyte Rare (03/13/24 7:15 AM) UA pH 6.5 *NA* (03/09/24 5:12 AM) eGFR Non-AA [>=60] 79 (03/13/24 7:15 AM) 79 (03/12/24 11:09 AM) 86 (03/12/24 6:55 AM) eGFR AA [>=60] 79 (03/13/24 7:15 AM) 79 (03/12/24 11:09 AM) 86 (03/12/24 6:55 AM) UA Appear Clear (03/09/24 5:12 AM) NT-proBNP [0-125 pg/mL] 2760 pg/mL *HI* (03/09/24 5:05 AM) Chloride Level [98-107 mmol/L] 86 mmol/L *LOW* (03/13/24 7:15 AM) 89 mmol/L *LOW* (03/12/24 11:09 AM) 91 mmol/L *LOW* (03/12/24 6:55 AM) RDW-CV [11.5-14.5 %] 15.9 % *HI* (03/13/24 7:15 AM) 16.0 % *HI* (03/12/24 6:55 AM) 15.8 % *HI* (03/11/24 6:55 AM) Ovalocytes Rare (03/11/24 6:55 AM) Imm Gran Auto [0.0-0.9 %] 0.7 % (03/13/24 7:15 AM) 0.6 % (03/11/24 6:55 AM) 0.6 % (03/10/24 6:45 AM) Slide Review Morph Only (03/13/24 7:15 AM) Man Diff (03/12/24 6:55 AM) Morph Only (03/11/24 6:55 AM) UA Culture Ind?. Not Indicated (03/09/24 5:12 AM) Abs Neut Man 7.5 x10^3/mcL *NA* (03/12/24 6:55 AM) Creatinine Level [0.70-1.30 mg/dL] 1.00 mg/dL (03/13/24 7:15 AM) 1.00 mg/dL (03/12/24 11:09 AM) 0.93 mg/dL (03/12/24 6:55 AM) SARS-CoV-2 (COVID-19) RNA (ID Now) [Not Detected] Not Detected (03/09/24 8:14 AM) Employed in healthcare? Unknown (03/09/24 8:14 AM) Symptomatic as defined by CDC? Unknown (03/09/24 8:14 AM) In ICU? Unknown (03/09/24 8:14 AM) Group care resident? Unknown (03/09/24 8:14 AM) status? Unknown (03/09/24 8:14 AM) Baso Man [0-1 %] 0 % (03/12/24 6:55 AM) Eos, Auto [1.0-6.0 %] 2.0 % (03/13/24 7:15 AM) 1.4 % (03/11/24 6:55 AM) 3.4 % (03/10/24 6:45 AM) 1Result Comment: Called to and verbally verified by Evangelina Jackson at 03/13/2024 08:15:19 EDT. 2Result Comment: Called to and verbally verified by Zenobia Ojeda (M/S) at _03/12/2024 11:45:40 EDTPJB. Result verified by repeat analysis 3Result Comment: Called to and verbally verified by Zenobia Ojeda (M/S) at 03/12/2024 07:44:18 EDT PJB. Result verified by repeat analysis Vital Signs Most recent to oldest [Reference Range]: 1 2 3 Temperature Temporal Artery [36-38 Deg C] 36.2 Deg C (03/13/24 3:30 PM) 36.2 Deg C (03/13/24 11:21 AM) 36.2 Deg C (03/13/24 7:09 AM) Temperature Temporal Artery (DegF) [97.3-100 Deg F] 97.16 Deg F *LOW* (03/12/24 4:46 PM) 98.6 Deg F (03/12/24 11:27 AM) Peripheral Pulse Rate [60-100 bpm] 75 bpm (03/13/24 3:30 PM) 71 bpm (03/13/24 11:21 AM) 84 bpm (03/13/24 7:09 AM) Heart Rate Monitored [60-100 bpm] 85 bpm (03/13/24 7:30 AM) 76 bpm (03/12/24 2:20 PM) 85 bpm (03/12/24 7:30 AM) Respiratory Rate [12-24 br/min] 18 br/min (03/13/24 3:30 PM) 18 br/min (03/13/24 11:21 AM) 20 br/min (03/13/24 7:30 AM) Blood Pressure [90-140/60-90 mmHg] 116/72mmHg (03/13/24 3:30 PM) 112/65mmHg (03/13/24 11:21 AM) 113/64mmHg (03/13/24 7:09 AM) Mean Arterial Pressure, Cuff [65-140 mmHg] 89 mmHg (03/11/24 4:00 AM) 102 mmHg (03/10/24 11:51 PM) 78 mmHg (03/10/24 4:03 AM) Mean Arterial Pressure Cuff 85 mmHg (03/13/24 3:30 PM) 80 mmHg (03/13/24 11:21 AM) 79 mmHg (03/13/24 7:09 AM) Weight 73 kg (03/13/24 7:09 AM) 75.5 kg (03/10/24 7:13 AM) 75.5 kg (03/09/24 9:15 AM) Weight Dosing 75.800 kg (03/09/24 4:53 AM) Height 170 cm (03/13/24 7:09 AM) Body Mass Index Estimated 26.12 kg/m2 (03/09/24 9:15 AM) 26.23 kg/m2 (03/09/24 4:53 AM) Height/Length Estimated 170 cm (03/09/24 9:15 AM) 170 cm (03/09/24 4:53 AM) Social History Social History Type Response Tobacco Never tobacco user T obacco Use:. Sex Male Sex Representation Male (finding) Hospital Discharge Instructions Patient Education 03/13/2024 16:15:55 Delirium Delirium Delirium is a state of mental confusion. It comes on quickly and causes significant changes in a person's thinking and behavior. People with delirium usually have trouble paying attention to what is going on or knowing where they are. They may become very withdrawn or very emotional and unable to sit still. They may even see or feel things that are not there (hallucinations). Delirium is a sign of a serious underlying medical condition. What are the causes? Delirium occurs when something suddenly affects the signals that the brain sends out. Brain signalscan be affected by anything that puts severe stress on the body and brain and causes brain chemicals to be out of balance. The most common causes of delirium include: ??? Infections. These may be bacterial, viral, fungal, or protozoal. ??? Medicines. These include many lvob-rcq-swfecux and prescription medicines. ??? Recreational drugs. ??? Substance withdrawal. This occurs with sudden discontinuation of alcohol, certain medicines, orrecreational drugs. ??? Surgery and anesthesia. ??? Sudden vascular events, such as stroke and brain hemorrhage. ??? Other brain disorders, such as migraines, tumors, seizures, and physical head trauma. ??? Metabolic disorders, such as kidney or liver failure. ??? Low blood oxygen (anoxia). This may occur with lung disease, cardiac arrest, or carbon monoxidepoisoning. ??? Hormone imbalances (endocrinopathies), such as an overactive thyroid (hyperthyroidism) or underactive thyroid (hypothyroidism). ??? Vitamin deficiencies. What increases the risk? The following factors may make someone more likely to develop this condition: ??? Being a child. ??? Being an older person. ??? Living alone. ??? Having vision loss or hearing loss. ??? Having an existing brain disease, such as dementia. ??? Having long-lasting (chronic) medical conditions, such as heart disease. ??? Being hospitalized for long periods of time. What are the signs or symptoms? Delirium starts with a sudden change in a person's thinking or behavior. Symptoms include: ??? Not being able to stay awake (drowsiness) or pay attention. ??? Being confused about places, time, and people. ??? Forgetfulness. ??? Having extreme energy levels. These may be low or high. ??? Changes in sleep patterns. ??? Extreme mood swings, such as sudden anger or anxiety. ??? Focusing on things or ideas that are not important. ??? Rambling and senseless talking. ??? Difficulty speaking, understanding speech, or both. ??? Hallucinations. ??? Tremor or unsteady gait. Symptoms come and go throughout the day and are often worse at the end of the day. How is this diagnosed? People with delirium may not realize that they have the condition. Often, a family member or healthcare provider is the first person to notice the changes. This condition may be diagnosed based on aphysical exam, health history, and tests. ??? The health care provider will obtain a detailed history. This may include questions about: ??? Current symptoms. ??? Medical conditions that you have. ??? Medicines. ??? Drug use. ??? The health care provider will perform a mental status test by: ??? Asking questions to check for confusion. ??? Watching for abnormal behavior. ??? The health care provider may also order lab tests or additional studies to determine the cause of the delirium. How is this treated? Treatment of delirium depends on the cause and severity. Delirium usually goes away within days or weeks of treating the underlying cause. In the meantime, do not leave the person alone because he orshe may accidentally cause self-harm. This condition may be treated with supportive care, such as: ??? Increased light during the day and decreased light at night. ??? Low noise level. ??? Uninterrupted sleep. ??? A regular daily schedule. ??? Clocks and calendars to help with orientation. ??? Familiar objects, including the person's pictures and clothing. ??? Frequent visits from familiar family and friends. ??? A healthy diet. ??? Gentle exercise. In more severe cases of delirium, medicine may be prescribed to help the person keep calm and thinkmore clearly. Follow these instructions at home: ??? Continue supportive care as told by a health care provider. ??? Take njuk-mjn-aaidpuw and prescription medicines only as told by your health care provider. ??? Ask a health care provider before using herbs or supplements. ??? Do not use alcohol or illegal drugs. ??? Keep all follow-up visits. This is important. Contact a health care provider if: ??? Symptoms do not get better or they become worse. ??? New symptoms of delirium develop. ??? Caring for the person at home does not seem safe. ??? Eating, drinking, or communicating stops. ??? There are side effects of medicines, such as changes in sleep patterns, dizziness, weight gain,restlessness, movement changes, or tremors. Get help right away if: ??? The person has thoughts of harming self or harming others. ??? There are serious side effects of medicine, such as: ??? Swelling of the face, lips, tongue, or throat. ??? Fever, confusion, muscle spasms, or seizures. If you ever feel like a loved one may hurt himself or herself or others, or shares thoughts about taking his or her own life, get help right away. You can go to your nearest emergency department or: ??? Call your local emergency services (911 in the [place] ??? Call a suicide crisis helpline, such as the National Suicide Prevention Lifeline at or 589 in the [place] This is open 24 hours a day in the [place] ??? Text the Crisis Text Line at 439833 (in the [place] Summary ??? Delirium is a state of mental confusion. It comes on quickly and causes significant changes in a person's thinking and behavior. ??? Delirium is a sign of a serious underlying medical condition. ??? Certain medical conditions or a long hospital stay may increase the risk of developing delirium. ??? Treatment of delirium involves treating the underlying cause and providing supportive treatments, such as a calm and familiar environment. This information is not intended to replace advice given to you by your health care provider. Make sure you discuss any questions you have with your health care provider. Document Revised: 01/24/2022 Document Reviewed: 10/07/2020 Elsevier Patient Education ?? 2022 [employer]. Follow Up Care 03/09/2024 04:48:39 With:Ramiro Landry MD Address: [address] [phone] When:03/26/2024 13:00:00 Comments:With Tamia Tsai Discharge instructions * Elvis Yan RN: PERFORM Event Display: Discharge Instructions Authored Date: [id number] JOHNSON PAYNE :1950 Age:73 years Sex:Male Visit Date:03/09/2024 Primary Care Physician: Ramiro Landry MD Hospital Discharge Instructions We would like to thank you for allowing us to assist you with your healthcare needs. The following includes patient education materials and information regarding your injury/illness. Your Next Steps Follow Up Appointments Follow Up with??Ramiro Landry MD When:??03/26/2024 02:00 PM EDT Why: With Tamia Tsai Where: [address] [address] [phone] The Following Services Have Been Arranged for You Occupational Therapy, Physical Therapy Anticipated ADL Needs - None Special Serv & Comm Res, Anticipated - None Special Services and Community Resources - None Medications What How Much When Why Instructions Next Dose New furosemide (furosemide 40 mg oral tablet) 1 tab Oral (given by mouth) Every day Pickup at [facility] New rosuvastatin (rosuvastatin 40 mg oral tablet) 1 tab Oral (given by mouth) Every day Pickup at [facility] New tamsulosin (tamsulosin 0.4 mg oral capsule) 1 Capsules Oral (given by mouth) Every night at bedtime Pickup at [facility] Changed amLODIPine (amLODIPine 5 mg oral tablet) 1 tab Oral (given by mouth) 2 times a day 180 EA, TAKE ONE TABLET BY MOUTH TWICE A DAY ?? Changed aspirin (aspirin 81 mg oral tablet, chewable) 1 tab Chewed Every day Duration: 30 Days Pickup at [facility] Changed glipiZIDE (glipiZIDE 10 mg oral tablet, extended release) 2 tab Oral (given by mouth) Every day 180 EA, TAKE TWO TABLETS BY MOUTH EVERY DAY ?? Changed metFORMIN (metFORMIN 1000 mg oral tablet) 1 tab Oral (given by mouth) 2 times a day 180 EA, TAKE ONE TABLET BY MOUTH TWICE A DAY ?? Changed metoprolol (Metoprolol Tartrate 100 mg oral tablet) 1 tab Oral (given by mouth) 2 times a day 180 EA, TAKE ONE TABLET BY MOUTH TWICE A DAY ?? Changed pantoprazole (pantoprazole 40 mg oral delayed release tablet) 1 tab Oral (given by mouth) Every day Changed sodium chloride (sodium chloride 1 g oral tablet) 1 tab Oral (given by mouth) 3 times a day Changed sodium chloride (sodium chloride 1 g oral tablet) 2 tab Oral (given by mouth) 3 times a day Pickup at [facility] Unchanged acetaminophen (acetaminophen 500 mg oral tablet) 2 tab Oral (given by mouth) Every 6 hours as needed for other (see comment) as needed ?? Unchanged ezetimibe (Zetia 10 mg oral tablet) 1 tab Oral (given by mouth) Every day HLD (hyperlipidemia) Unchanged ketoconazole topical (ketoconazole 2% topical cream) 1 Application Topical (on the skin) Every day Unchanged multivitamin (multivitamin adult, oral tablet) 1 tab Oral (given by mouth) Every day Unchanged nitroglycerin (nitroglycerin 0.4 mg sublingual tablet) 1 tab Sublingual (dissolve under the tongue) Every 5 minutes as needed for as needed for chest pain Unchanged Other Prescription ([facility] [place] Prescription) 100 EA, USE ONE DAILY DIRECTED ?? Unchanged sacubitril-valsartan (Entresto 24 mg-26 mg oral tablet) 1 tab Oral (given by mouth) 2 times a day Unchanged traMADol (traMADol 50 mg oral tablet) 1 tab Oral (given by mouth) Every 12 hours as needed for as needed for pain Pharmacy Information [facility]: [address], [place] [id number] [phone] ?? What How Much When Comments Stop Taking amoxicillin (amoxicillin 500 mg oral capsule) 4 Capsules Oral (given by mouth) Once given 1 hour prior to the procedure ?? Stop Taking atorvastatin (atorvastatin 80 mg oral tablet) 1 tab Oral (given by mouth) Every day Stop Taking clopidogrel (clopidogrel 75 mg oral tablet) 1 tab Oral (given by mouth) Every day Stop Taking isosorbide mononitrate (isosorbide mononitrate 30 mg oral tablet, extended release) 1 tab Oral (given by mouth) Every morning Stop Taking omeprazole (omeprazole 20 mg oral delayed release capsule) 90 EA, TAKE ONE CAPSULE BY MOUTH EVERY DAY ?? Stop Taking oxybutynin (oxybutynin 5 mg oral tablet) 1 tab Oral (given by mouth) 2 times a day Stop Taking semaglutide (Ozempic) Your Summary Your Care Team Admitting Physician - Vale Rivera MD Attending Physician - Aniket Michael MD [facility] Your Diagnosis Altered mental status Hypomagnesemia Coronary arteriosclerosis Gastroesophageal reflux disease Hypertensive disorder Type 2 diabetes mellitus Hyperlipidemia Hypoxia Hyponatremia Problems Ongoing - Any problem that you are currently receiving treatment for. Bilateral knee pain Coronary arteriosclerosis Degenerative arthritis of knee, bilateral Gastroesophageal reflux disease Hyperlipidemia Hypertensive disorder Knee pain Myocardial infarction Type 2 diabetes mellitus Tests Performed/Pending .Manual Differential ([facility]) .Morphology ([facility]) Automated Diff Basic Metabolic Panel CBC w/ Diff CMP Glucose POCT Magnesium Level NT- Pro BNP Renal Function Panel SARS-CoV-2 (COVID-19) RNA (ID Now) Troponin-I Urinalysis Microscopic Urinalysis with Micro if Indicated and Culture if Indicated Discharge Vitals Temperature??(Temporal Artery) 97.2 ??F (36.2 ??C) Heart Rate??(Peripheral) 75 Respiratory Rate?? 18 Blood Pressure?? 116/72?? SpO2?? 95% Height?? 66.93 in (170 cm) Weight?? 160.96 lb (73 kg) Allergies lisinopril??(Cough) No Known Medication Allergies Education Materials Delirium Delirium is a state of mental confusion. It comes on quickly and causes significant changes in a person's thinking and behavior. People with delirium usually have trouble paying attention to what is going on or knowing where they are. They may become very withdrawn or very emotional and unable to sit still. They may even see or feel things that are not there (hallucinations). Delirium is a sign of a serious underlying medical condition. What are the causes? Delirium occurs when something suddenly affects the signals that the brain sends out. Brain signalscan be affected by anything that puts severe stress on the body and brain and causes brain chemicals to be out of balance. The most common causes of delirium include: ? Infections. These may be bacterial, viral, fungal, or protozoal. ? Medicines. These include many scie-xpw-gcujnao and prescription medicines. ? Recreational drugs. ? Substance withdrawal. This occurs with sudden discontinuation of alcohol, certain medicines, or recreational drugs. ? Surgery and anesthesia. ? Sudden vascular events, such as stroke and brain hemorrhage. ? Other brain disorders, such as migraines, tumors, seizures, and physical head trauma. ? Metabolic disorders, such as kidney or liver failure. ? Low blood oxygen (anoxia). This may occur with lung disease, cardiac arrest, or carbon monoxide poisoning. ? Hormone imbalances (endocrinopathies), such as an overactive thyroid (hyperthyroidism) or underactive thyroid (hypothyroidism). ? Vitamin deficiencies. What increases the risk? The following factors may make someone more likely to develop this condition: ? Being a child. ? Being an older person. ? Living alone. ? Having vision loss or hearing loss. ? Having an existing brain disease, such as dementia. ? Having long-lasting (chronic) medical conditions, such as heart disease. ? Being hospitalized for long periods of time. What are the signs or symptoms? Delirium starts with a sudden change in a person's thinking or behavior. Symptoms include: ? Not being able to stay awake (drowsiness) or pay attention. ? Being confused about places, time, and people. ? Forgetfulness. ? Having extreme energy levels. These may be low or high. ? Changes in sleep patterns. ? Extreme mood swings, such as sudden anger or anxiety. ? Focusing on things or ideas that are not important. ? Rambling and senseless talking. ? Difficulty speaking, understanding speech, or both. ? Hallucinations. ? Tremor or unsteady gait. Symptoms come and go throughout the day and are often worse at the end of the day. How is this diagnosed? People with delirium may not realize that they have the condition. Often, a family member or healthcare provider is the first person to notice the changes. This condition may be diagnosed based on aphysical exam, health history, and tests. ? The health care provider will obtain a detailed history. This may include questions about: ? Current symptoms. ? Medical conditions that you have. ? Medicines. ? Drug use. ? The health care provider will perform a mental status test by: ? Asking questions to check for confusion. ? Watching for abnormal behavior. ? The health care provider may also order lab tests or additional studies to determine the cause of the delirium. How is this treated? Treatment of delirium depends on the cause and severity. Delirium usually goes away within days or weeks of treating the underlying cause. In the meantime, do not leave the person alone because he theodorahe may accidentally cause self-harm. This condition may be treated with supportive care, such as: ? Increased light during the day and decreased light at night. ? Low noise level. ? Uninterrupted sleep. ? A regular daily schedule. ? Clocks and calendars to help with orientation. ? Familiar objects, including the person's pictures and clothing. ? Frequent visits from familiar family and friends. ? A healthy diet. ? Gentle exercise. In more severe cases of delirium, medicine may be prescribed to help the person keep calm and thinkmore clearly. Follow these instructions at home: ? Continue supportive care as told by a health care provider. ? Take xfqm-net-dujbfti and prescription medicines only as told by your health care provider. ? Ask a health care provider before using herbs or supplements. ? Do not use alcohol or illegal drugs. ? Keep all follow-up visits. This is important. Contact a health care provider if: ? Symptoms do not get better or they become worse. ? New symptoms of delirium develop. ? Caring for the person at home does not seem safe. ? Eating, drinking, or communicating stops. ? There are side effects of medicines, such as changes in sleep patterns, dizziness, weight gain, restlessness, movement changes, or tremors. Get help right away if: ? The person has thoughts of harming self or harming others. ? There are serious side effects of medicine, such as: ? Swelling of the face, lips, tongue, or throat. ? Fever, confusion, muscle spasms, or seizures. If you ever feel like a loved one may hurt himself or herself or others, or shares thoughts about taking his or her own life, get help right away. You can go to your nearest emergency department or: ? Call your local emergency services (911 in the [place] ? Call a suicide crisis helpline, such as the National Suicide Prevention Lifeline at or 988 in the [place] This is open 24 hours a day in the [place] ? Text the Crisis Text Line at 310124 (in the [place] Summary ? Delirium is a state of mental confusion. It comes on quickly and causes significant changes in a person's thinking and behavior. ? Delirium is a sign of a serious underlying medical condition. ? Certain medical conditions or a long hospital stay may increase the risk of developing delirium. ? Treatment of delirium involves treating the underlying cause and providing supportive treatments, such as a calm and familiar environment. This information is not intended to replace advice given to you by your health care provider. Make sure you discuss any questions you have with your health care provider. Document Revised: 01/24/2022 Document Reviewed: 10/07/2020 Elsevier Patient Education ?? 2022 Elsevier Inc. Patient/Pocket And Pulley Machine Operator Signature Patient Name:ELMER JOHNSON R I have received this information and my questions have been answered. Patient/Pocket And Pulley Machine Operator Name: Patient/Pocket And Pulley Machine Operator Signature: Relationship to Patient: Witness Name/Signature: Date: Electronically Signed on: 03/13/2024 17:28 EDTSigned by:YAZ Occupational therapy Progress note * Hallie Verdugo OTR/L: PERFORM, MODIFY Event Display: Occupational Therapy Progress Note Authored Date: [id number] Patient ID and date of checked: Confirmed *Current Level of Care: In-Patient *Admitting Diagnosis: AMS *Therapy Diagnosis: Increased need for assistance with personal care Pertinent Medical History: Patient presented to the ED with AMS and was admitted to this facility at inpatient level of care with the above diagnosis. Patient did have a recent hospital stay at [facility] for low magnesium as well as a short stay at acute rehab. Medical history also includes but may not be limited to the following list: Coronary arteriosclerosis Gastroesophageal reflux disease Hyperlipidemia Myocardial infarction Type 2 diabetes mellitus Bilateral knee pain Degenerative arthritis of knee, bilateral Hypertensive disorder Knee pain *Subjective: Patient supine in bed with his present in room visiting upon OT arrival. Patient is very pleasant and easily agreeable to participate in OT evaluation this date. Patient states I think I am doing pretty well now. Patient left in bed with bed alarm on and all needs within reach at OT departure. Hand Dominance: Right *Barriers to Learning: ??x None Communication Cultural Education level Hearing Language Vision Physical Cognitive Motivational Emotional Acute medical condition Precautions: ??x Standard precautions MRSA/VRE Contact precautions Droplet precautions Airborne precautions Covid precautions Total hip replacement Total knee replacement Total shoulder replacement Fall risk *Previous Level of Function: Patient lives at home with his . He is independent with all ADLs and IADLs at baseline and does not typically use AD for functional mobility. Patient has been using arolling walker since discharging home from an acute rehab stay 3 days ago. 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 ?Living Environment: Multilevel home, walk-in shower ?Stairs/Ramps: 5 steps to enter, full flight to bedroom ?Home Equipment: Patient's has ordered a shower chair and grab bars but they have not arrived. *Current Level of Function: Increased need for assistance with personal care Pain: None Vision/Hearing: Both WFL Cognition: See MoCA score below. Upper Extremity Passive/Active Range of Motion: B shoulder flexion limited to ~ 110 degrees. All other measures are WFL. Manual Muscle Testing: B UE strength grossly WFL Proprioception/Sensation: No acute changes in sensation reported Edema: None reported or observed. Coordination: ?Fine Motor: Intact ?Gross Motor: Intact Tone: Normal ADLs: Activity Assistance Comments Bathing Upper Body Independent To wash hands at bathroom sink Bathing Lower Body Dressing Upper Body Dressing Lower Body Eating Shaving Combing Hair Brushing Teeth Toileting Independent Patient urinates in a standing position at toilet and bathroom with good balance. Poor positioning of rolling walker push off to side. Bed Mobility: Activity Assistance Comments Rolling Scooting/Repositioning Independent Supine to Sit Independent Sit to Supine Independent Transfers: Activity Assistive Device Assistance Comments Sit to Stand RW Independent Stand to Sit Independent Controlled descent to low EOB Bed to Chair Chair to Bed Shower Transfer Toilet Transfer Functional Ambulation During ADLs: Assistance Assistive Device Distance??(ft) Comments Supervision RW 25 feet Good pace and balance. Balance: ?Static Sitting: Good ?Dynamic Sitting: Good ?Static Standing: Good ?Dynamic Standing: Good Posture: Normal *Standardized Testing: Standardized Test Score Comments AM-PAC Michaelle Index Zelaya Balance Score PASS SLUMS Short Blessed Test [place] Cognitive Assessment ??16/30 Visuospatial/executive ? 0/5 Naming ? 2/3 Attention ? 5/6 Language ? 0/3 Abstraction ? 1/2 Delayed recall/memory ? 2/5 Orientation ? 6/6 ?Score: 16/30; Moderate cognitive impairment. ?Comments: Patient demonstrates the greatest difficulty with tasks requiring executive functioning and visuospatial skills. ?Interpretation: ??A final score of 26 and above is considered normal. Modified Michaelle Index ??94/100 Score indicates a slight dependence with ADLs. Motor Assessment Scale Quick DASH *Patient Education: Patient and patient's introduced to this therapist and provided brief scope of OT services in acute care. Education on rationale for DC from therapy and cognitive assessment results. *Occupational Therapy Assessment: Patient is a 73-year-old male currently admitted to this facilityat inpatient level of care with a diagnosis of AMS. He did have a recent hospitalization at [facility] for low magnesium followed by an acute rehab stay. Patient lives at home with his and is typically independent with all ADLs. He has been utilizing a rolling walker since discharging home from acute rehab 3 days ago. Patient presents today alert and oriented x 4. He engages in appropriate conversation and demonstrates good attention. Patient was administered the [place] cognitive assessment and scored a 16/30 which indicates a moderate cognitive impairment, however; patient's reports his cognition is back to baseline. She states he has always required slightly longer for processing. Patient demonstrates independence with his toileting routine and bed mobility. He denies any increasein need for assistance with personal care and hopes to return home. Patient was anticipating home health OT services which would still be appropriate for home safety evaluation. Patient will be discha rged from therapy today *Rehab Potential:??N/A _?_ *Short Term Goals?time frame: N/A *Half-Way Goals?time frame: N/A *Patient Goals: Home with home health OT Plan of Care: Discharge from therapy today *Discharge Plan: discharge from therapy today Discharge Recommendations: ?Home equipment needs: N/A ?Post discharge Rehab needs:??Home health OT as intended _ ?Supervision needs:??Distant supervision _ ?Discussed plan of care with: Patient, patient's , PT *Procedure Documentation: CPT 02577: Low Complexity OT Evaluation:??34 minutes Occupational Therapy Low Complexity Evaluation performed. History involves brief review. Examination of performance deficit(s) includes 1-3 elements. Clinical decision making includes limited?? treatment option considerations. lack of?comorbidities. Task modifications/assistance are not necessary. *Total Time: 34 minutes *Time In: 13:42 *Time Out:??14:16 Electronically Signed on 03/09/2024 16:08 EDT Hallie Verdugo OTR/L Telehealth Consult note * Frances Salvador G: PERFORM Event Display: Telemedicine Consultation Authored Date: * Frances Salvador: PERFORM Event Display: Telemedicine Consultation Authored Date: * Mara Pascal: PERFORM Event Display: Telemedicine Consultation Authored Date: EKG study * Event Display: Telemetry Strips Please click on link to view image. * Event Display: Telemetry Strips Please click on link to view image. * Event Display: Telemetry Strips Please click on link to view image. Respiratory therapy Hospital Progress note * Vincenzo Martinez RCP: PERFORM Event Display: Respiratory Therapy Progress Note Authored Date: ??JOHNSON PAYNE 73 Years MEASURED Body Mass Index: 27.06 kg/m2 (06/25/23 11:06:00) BSA Measured: 1.92 m2 (06/25/23 11:06:00) Height: 170 cm (06/25/23 11:06:00) Weight: 75.5 kg (03/10/24 07:13:25) DOSING Weight Dosin.8 kg (03/09/24 04:53:00) Respiratory Shift Summary Breath Sounds: Clear Shift Treatments: None Shift Events: Tried room air at 2129, patient requested O2 returned for shortness of breath. Respiratory Goals/Plan of Care: Wean off O2 ABG???s: Inital Oxygen??Settings: 1L NC End of Shift OxygenSettings: 1L NC Respirtory Treatment or Medication Changes: Respiratory Protocol??Aerosol Therapy Assessment and Scoring Lung History (0) No Lung History and Non-Smoker Breath Sounds (0) Clear in all underwood Respiratory Rate (1)??19-25 Modified Mak Scale or Observed Dyspnea (0) None Oxygen Therapy (1) 1-2 L/min Home Respiratory Medications (0) None Inhaler Use Assessment ? Clinically Stable? Yes? Can take a slow deep breath on command? Yes? Can perform a 3 second breath hold? Yes Respiratory total Score: 2 Respiratory Guidelines 0-2 pts - No Therapy indicated Electronically Signed on 03/13/2024 05:04 EDT Vincenzo Martinez EGG PROCESSING SUPERVISOR * Jennie Holley EGG PROCESSING SUPERVISOR: PERFORM Event Display: Respiratory Therapy Progress Note Authored Date: [id number] ??ELMER JOHNSON Maribel 73 Years Respiratory Shift Summary Breath Sounds: 0730: Scattered fine crackles w/ diminished base 1420: Diminished Shift Treatments: 0730: None 1420: Incentive spirometry started w/ pt. He was able to pull volumes of 1500ml. He has a good understanding of the importance of using & also how to perform. Will continue to do so independently. Shift Events: 0730: Weaned O2 from 3L to 2L. SpO2 91%. No respiratory distress noted. Pt resting comfortably in bed. 1420: Weaned O2 from 2L to 1L. SpO2 93%. SOB w/ exertion (like using the incentive spirometer) but recovered well. Respiratory Protocol??Aerosol Therapy Assessment and Scoring Lung History (0) No Lung History and Non-Smoker Breath Sounds (1) Clear to slightly diminished or crackles in bases Respiratory Rate (1)??19-25 Modified Mak Scale or Observed Dyspnea (1) 1-2 With exertion Oxygen Therapy (0) Room air, at baseline home O2, post-op, or CHF Home Respiratory Medications (0) None Inhaler Use Assessment ? Clinically Stable? Yes? Can take a slow deep breath on command? Yes? Can perform a 3 second breath hold? Yes Respiratory total Score: 3 Respiratory Guidelines 3-4 pts - Q6 PRN for SOB Electronically Signed on 03/12/2024 15:20 EDT Jennie Holley EGG PROCESSING SUPERVISOR * Vincenzo Martinez EGG PROCESSING SUPERVISOR: PERFORM Event Display: Respiratory Therapy Progress Note Authored Date: [id number] ??JOHNSON PAYNE 73 Years MEASURED Body Mass Index: 27.06 kg/m2 (06/25/23 11:06:00) BSA Measured: 1.92 m2 (06/25/23 11:06:00) Height: 170 cm (06/25/23 11:06:00) Weight: 75.5 kg (03/10/24 07:13:25) DOSING Weight Dosin.8 kg (03/09/24 04:53:00) Respiratory Shift Summary Breath Sounds: fine crackles in bases Shift Treatments: None Shift Events: None Inital Oxygen??Settings: 2L End of Shift OxygenSettings: 3L Respiratory Protocol??Aerosol Therapy Assessment and Scoring Lung History _?AMS Breath Sounds (1) Clear to slightly diminished or crackles in bases Respiratory Rate (0) Less than or equal to 18 Modified Mak Scale or Observed Dyspnea (1) 1-2 With exertion Oxygen Therapy (2) 3-6 L/m or equivalent Home Respiratory Medications _ AMS Inhaler Use Assessment ? Clinically Stable? _?AMS? Can take a slow deep breath on command? _?AMS? Can perform a 3 second breath hold? _? AMS Respiratory total Score: 4 Respiratory Guidelines 3-4 pts - Q6 PRN for SOB Electronically Signed on 03/12/2024 05:00 EDT Vincenzo Martinez RCP Physician Emergency department Note * Ariel Omer MD: PERFORM Event Display: ED Note Physician Authored Date: [id number] JOHNSON PAYNE :1950 Age:73 years Sex:Male Visit Date:03/09/2024 Primary Care Physician: Quinn [facility], Ramiro Noe MD I obtained signout from Dr. Sheppard pending teleneurology consult.?? [facility] a [facility]. ??He came home 3 days ago. ??Had new dysarthria??and spells last night. ??Teleneurology noted??NIH stroke scale of 3??notably??because of minor pulses??of the facial nerve??limb ataxia??and mild dysarthria.?? At this time no??change of medication.?Neurology recommends admission for repeat MRI and??cardiac monitoring.?? His magnesium was noted to be low that wasreplenished.?? I spoke with Dr. Rivera who kindly accepted the patient??for admission. ?? Last 24 Hours?? Chemistry ? Event Name?? Event Result?? Date/Time?? Sodium Level 131 mmol/L??Low 03/09/24 05:05:00 Potassium Level 3.9 mmol/L 03/09/24 05:05:00 Chloride Level 95 mmol/L??Low 03/09/24 05:05:00 CO2 22 mmol/L 03/09/24 05:05:00 Alk Phos 88 unit/L 03/09/24 05:05:00 AST 30 unit/L 03/09/24 05:05:00 ALT 48 unit/L 03/09/24 05:05:00 BUN 11 mg/dL 03/09/24 05:05:00 Glucose Level 130 mg/dL??High 03/09/24 05:05:00 Creatinine Level 0.99 mg/dL 03/09/24 05:05:00 eGFR AA 80 03/09/24 05:05:00 eGFR Non-AA 80 03/09/24 05:05:00 Calcium Level 9.2 mg/dL 03/09/24 05:05:00 Protein Total 7.3 g/dL 03/09/24 05:05:00 Albumin Level 2.8 g/dL??Low 03/09/24 05:05:00 Bilirubin Total 0.8 mg/dL 03/09/24 05:05:00 Magnesium Level 0.7 mg/dL??Critical 03/09/24 05:17:00 Troponin-I 12.9 pg/mL 03/09/24 05:05:00 NT-proBNP 2760 pg/mL??High 03/09/24 05:05:00 ? Hematology ? Event Name?? Event Result?? Date/Time?? WBC 8 x10^3/mcL 03/09/24 05:05:00 RBC 3.6 x10^6/mcL??Low 03/09/24 05:05:00 Hgb 9.8 g/dL??Low 03/09/24 05:05:00 Hct 29.1 %??Low 03/09/24 05:05:00 MCV 81.1 fL 03/09/24 05:05:00 MCH 27.3 pg 03/09/24 05:05:00 MCHC 33.7 g/dL 03/09/24 05:05:00 RDW-CV 15.8 %??High 03/09/24 05:05:00 Platelets 292 x10^3/mcL 03/09/24 05:05:00 Neutro Auto 75.4 %??High 03/09/24 05:05:00 Lymph Auto 10.9 %??Low 03/09/24 05:05:00 Clark Auto 10.8 % 03/09/24 05:05:00 Eos, Auto 1.6 % 03/09/24 05:05:00 Basophil Auto 0.8 % 03/09/24 05:05:00 Imm Gran Auto 0.5 % 03/09/24 05:05:00 Neutro Absolute 6 x10^3/mcL 03/09/24 05:05:00 Slide Review Not Indicated 03/09/24 05:05:00 ? Urinalysis ? Event Name?? Event Result?? Date/Time?? UA Color YELLOW. 03/09/24 05:12:00 UA Appear CLEAR. 03/09/24 05:12:00 UA Glucose NEGATIVE 03/09/24 05:12:00 UA Bili NEGATIVE 03/09/24 05:12:00 UA Ketones 1+ 03/09/24 05:12:00 UA Spec Grav 1.010 03/09/24 05:12:00 UA Blood NEGATIVE 03/09/24 05:12:00 UA pH 6.5 03/09/24 05:12:00 UA Protein 1+ Abnormal 03/09/24 05:12:00 UA Urobilinogen 1.0 Uro 03/09/24 05:12:00 UA Nitrite NEGATIVE 03/09/24 05:12:00 UA Leuk Est NEGATIVE 03/09/24 05:12:00 UA Culture Ind?. Not Indicated 03/09/24 05:12:00 UA WBC 0-3 03/09/24 05:12:00 UA RBC 0-2 03/09/24 05:12:00 UA Squam Epithelial Rare 03/09/24 05:12:00 UA Mucous None Seen 03/09/24 05:12:00 UA Bacteria None Seen 03/09/24 05:12:00 ? Images * Final Report * ? URL This document has an image ?? XR Chest 1 View PROCEDURE INFORMATION:?? Exam: XR Chest?? Exam date and time: 03/09/2024 6:22 AM?? Age: 73 years old?? Clinical indication: AMS? TECHNIQUE:?? Imaging protocol: Radiologic exam of the chest.?? Views: 1 view.? COMPARISON:?? CR XR CHEST 1 VW 02/23/2024 9:22 AM? FINDINGS:?? Lungs: Patchy perihilar opacities. No focal consolidation.?? Pleural spaces: No sizable pleural effusion or pneumothorax.?? Heart/Mediastinum: Stable cardiomediastinal silhouette.?? Bones/joints: Status post median sternotomy.? IMPRESSION:?? Patchy perihilar opacities may be infectious etiology. No focal?? consolidation to suggest pneumonia.? Report signed by: Dorina Mojica On 03/09/2024 ??07:06:40 [1] * Final Report * ? URL This document has an image ?? CT Brain/Head w/o Contrast PROCEDURE INFORMATION:?? Exam: CT Head Without Contrast?? Exam date and time: 03/09/2024 6:35 AM?? Age: 73 years old?? Clinical indication: AMS? TECHNIQUE:?? Imaging protocol: Computed tomography of the head without contrast.?? Radiation optimization: All CT scans at this facility use at least?? one of these dose optimization techniques: automated exposure?? control; mA and/or kV adjustment per patient size (includes targeted?? exams where dose is matched to clinical indication); or iterative?? reconstruction.? COMPARISON:?? No relevant prior studies available.? FINDINGS:?? Brain: No hemorrhage. Unremarkable white matter. No mass effect.?? Cerebral ventricles: No ventriculomegaly.?? Paranasal sinuses: Visualized sinuses are unremarkable. No fluid?? levels.?? Mastoid air cells: Visualized mastoid air cells are well aerated.?? Bones: Unremarkable. No acute fracture.?? Soft tissues: Unremarkable.? IMPRESSION:?? No acute intracranial abnormality.?? [2] [1]??XR Chest 1 View; [employer]User, Generated 03/09/2024 06:22 EDT [2]??CT Brain/Head w/o Contrast; [employer], Generated 03/09/2024 06:35 EDT Electronically Signed on 03/09/2024 07:58 EDT Ariel Omer MD * Mendy Sheppard MD: PERFORM Event Display: ED Note Physician Authored Date: [id number] JOHNSON PAYNE :1950 Age:73 years Sex:Male Visit Date:03/09/2024 Primary Care Physician: Ramiro Landry MD Basic Information Time Seen: Mendy Sheppard MD / 03/09/2024 04:53 Chief Complaint Pt BIBA from home for confusion. Pt denies any pain on arrival, LKW 2100 last night. Pt's reports recent Hx of low Mg and Na. CVA 2 weeks ago following cardiac cath for NSTEMI with mild weaknessas only deficit. Pt alert and oriented to person only. History Of Present Illness: This is a 72-year-old gentleman with a chart listed history of coronary artery??disease??status post CABG,??arthritis of the knee, GERD, hypertension,??diabetes, who presents to the ED via EMS??from home with his with concern regarding confusion.?? The patient is alert and oriented to self and date. He however does not know why he is here. He denies pain anywhere. Specifically he denies chest pain, abdominal pain. His provided collateral information. She says the patient was transferred to [facility] about 2 weeks ago after he presented to our ED with chest pain. She says he had a cardiac cath where nothing was found, there was no intervention. She says that in the PACU he had a stroke. He now has to walk with a walker and tends to neglect things on his left side. He was also having low sodium and potassium??while in the hospital. He was dc/ed home on Tuesday 03/06 and was his usual self. She says he went to bed around 9pm last night, and frequently woke up throughout the night,??holding his chest saying it hurts, it hurts and attemptingto cough, acting??confused. She says he is still??not back to his baseline now. He has been afebrile. He has an area of redness over his right foot 2 weeks ago, which was treated with antibiotics andhas almost completely resolved.?? New medications include colace and??oxybutynin - last taken at 6pm Physical Exam Vitals & Measurements T:??36.6?C ??(Temporal Artery)?? HR:??80??(Peripheral)?? RR:??19?? BP:??129/79?? SpO2:??99%?? HT:??170??cm?? WT:??75.8??kg?? BMI:??26.23?? O2 Therapy:??Room air?? General: A&Ox3, Calm, no [...] no rebound or guarding, no hepatosplenomegaly ?? Extremities: no le swelling, warm and well-perfused, no cyanosis, capillary refill <2 seconds? Skin: no rash, no lesions, no bruising? Neuro: normal tone, normal strength in all 4 extremities, sensation intact?? Medical Decision Making: Pt with AMS ?? Thorough chart review performed, nursing triage note reviewed, vitals reviewed the patient is well and no toxic appearing, hemodynamically stable Pt's motor exam is 5/5 in all extremities. He??can state his??age and??the month.??NIHSS score is zero.? DDx includes??stroke/TIA, electrolyte abnormality, infection, medications, etc... ?? Labs reviewed and interpreted independently: No leukocytosis, Hgb 9.8 down from 12.6, sodium 131, cl 95, mag 0.7, No other electrolyte abnormality on comprehensive metabolic panel. Renal function at baseline. Trop 12.9, ProBNP 2760. UA without nitrites or leuks. ?? Imaging: NCHCT and CXR pending Tele Neuro consult pending ?? Discussed with Denise from the hospitalist service, who will accept the patient after tele neuro completed. Signed out to Dr Omer at 7am. Procedure No Qualifying Data Assessment/Plan 1.??Altered mental status??R41.82 Orders: CT Brain/Head w/o Contrast, 03/09/24 5:55:00 EDT, Stat, Reason: AMS, Transport Mode: Stretcher, Exam to be performed outside organization? XR Chest 1 View, 03/09/24 5:55:00 EDT, Stat, Reason: AMS, Transport Mode: Stretcher, Exam to be performed outside organization? Medication Reconciliation Unchanged acetaminophen (acetaminophen 500 mg [...] MOUTH EVERY DAY. ?? Other Prescription ([facility] Prescription)100 EA, USE ONE DAILY DIRECTED. ?? [...] with Stent placement (10/13/1997) Medication Administration Given magnesium sulfate, 1 g, IV Piggyback Allergies lisinopril??(Cough) No Known Medication Allergies Social History Alcohol Never Electronic Cigarette/Vaping Electronic Cigarette Use: Never. Substance Use Never Tobacco Never tobacco user Tobacco Use:. Family History Cerebrovascular accident: Father. [place] - myocardial infarction: Father. Lab Results CBC and Differential?? LATEST RESULTS?? HISTORICAL RESULTS?? WBC?? 03/09/24 05:05?? 8.0?? 02/23/24?? 7.5?? RBC?? 03/09/24 05:05?? 3.6 ??Low?? 02/23/24?? 4.5 ??Low?? Hgb?? 03/09/24 05:05?? 9.8 ??Low?? 02/23/24?? 12.6 ??Low?? Hct?? 03/09/24 05:05?? 29.1 ??Low?? 02/23/24?? 36.9 ??Low?? MCV?? 03/09/24 05:05?? 81.1?? 02/23/24?? 81.6?? MCH?? 03/09/24 05:05?? 27.3?? 02/23/24?? 27.9?? MCHC?? 03/09/24 05:05?? 33.7?? 02/23/24?? 34.1?? RDW-CV?? 03/09/24 05:05?? 15.8 ??High?? 02/23/24?? 15.7 ??High?? Platelets?? 03/09/24 05:05?? 292?? 02/23/24?? 142?? Neutro Auto?? 03/09/24 05:05?? 75.4 ??High?? 01/06/24?? 59.3?? Lymph Auto?? 03/09/24 05:05?? 10.9 ??Low?? 01/06/24?? 23.5?? Clark Auto?? 03/09/24 05:05?? 10.8?? 01/06/24?? 9.6?? Eos, Auto?? 03/09/24 05:05?? 1.6?? 01/06/24?? 6.8 ??High?? Basophil Auto?? 03/09/24 05:05?? 0.8?? 01/06/24?? 0.5?? Imm Gran Auto?? 03/09/24 05:05?? 0.5?? 01/06/24?? 0.3?? Neutro Absolute?? 03/09/24 05:05?? 6.0?? 01/06/24?? 3.4?? Slide Review?? 03/09/24 05:05?? Not Indicated?? 02/23/24?? Man Diff? Routine Chemistry?? LATEST RESULTS?? HISTORICAL RESULTS?? Sodium Level?? 03/09/24 05:05?? 131 ??Low?? 02/23/24?? 131 ??Low?? Potassium Level?? 03/09/24 05:05?? 3.9?? 02/23/24?? 4.1?? Chloride Level?? 03/09/24 05:05?? 95 ??Low?? 02/23/24?? 94 ??Low?? CO2?? 03/09/24 05:05?? 22?? 02/23/24?? 23?? Alk Phos?? 03/09/24 05:05?? 88?? 02/23/24?? 84?? AST?? 03/09/24 05:05?? 30?? 02/23/24?? 38 ??High?? ALT?? 03/09/24 05:05?? 48?? 02/23/24?? 58?? BUN?? 03/09/24 05:05?? 11?? 02/23/24?? 13?? Glucose Level?? 03/09/24 05:05?? 130 ??High?? 02/23/24?? 226 ??High?? Creatinine Level?? 03/09/24 05:05?? 0.99?? 02/23/24?? 1.28?? eGFR AA?? 03/09/24 05:05?? 80?? 02/23/24?? 59 ??Low?? eGFR Non-AA?? 03/09/24 05:05?? 80?? 02/23/24?? 59 ??Low?? Calcium Level?? 03/09/24 05:05?? 9.2?? 02/23/24?? 9.5?? Protein Total?? 03/09/24 05:05?? 7.3?? 02/23/24?? 8.2?? Albumin Level?? 03/09/24 05:05?? 2.8 ??Low?? 02/23/24?? 3.2 ??Low?? Bilirubin Total?? 03/09/24 05:05?? 0.8?? 02/23/24?? 0.6?? Magnesium Level?? 03/09/24 05:17?? 0.7 ??Critical? Cardiac Isoenzymes?? LATEST RESULTS?? HISTORICAL RESULTS?? Troponin-I?? 03/09/24 05:05?? 12.9?? 02/23/24?? 2585.4 ??Critical?? NT-proBNP?? 03/09/24 05:05?? 2760 ??High?? 01/06/24?? 795 ??High? UA Macroscopic?? LATEST RESULTS?? HISTORICAL RESULTS?? UA Color?? 03/09/24 05:12?? Yellow?? 09/06/23?? Yellow?? UA Appear?? 03/09/24 05:12?? Clear?? 09/06/23?? Clear?? UA Glucose?? 03/09/24 05:12?? Negative?? 09/06/23?? Negative?? UA Bili?? 03/09/24 05:12?? Negative?? 09/06/23?? Negative?? UA Ketones?? 03/09/24 05:12?? 1+?? 09/06/23?? Negative?? UA Spec Grav?? 03/09/24 05:12?? 1.010?? 09/06/23?? 1.020?? UA Blood?? 03/09/24 05:12?? Negative?? 09/06/23?? Trace Abnormal?? UA pH?? 03/09/24 05:12?? 6.5?? 09/06/23?? 6.0?? UA Protein?? 03/09/24 05:12?? 1+ Abnormal?? 09/06/23?? 2+ Abnormal?? UA Urobilinogen?? 03/09/24 05:12?? Positive?? 09/06/23?? Normal?? UA Nitrite?? 03/09/24 05:12?? Negative?? 09/06/23?? Negative?? UA Leuk Est?? 03/09/24 05:12?? Negative?? 09/06/23?? Negative?? UA Culture Ind?.?? 03/09/24 05:12?? Not Indicated?? 09/06/23?? Not Indicated? UA Microscopic?? LATEST RESULTS?? HISTORICAL RESULTS?? UA WBC?? 03/09/24 05:12?? 0-3?? 09/06/23?? 5-10 Abnormal?? UA RBC?? 03/09/24 05:12?? 0-2?? 09/06/23?? 0-2?? UA Squam Epithelial?? 03/09/24 05:12?? Rare?? 09/06/23?? Rare?? UA Mucous?? 03/09/24 05:12?? None Seen?? 09/06/23?? Rare Abnormal?? UA Bacteria?? 03/09/24 05:12?? None Seen?? 09/06/23?? Rare? Electronically Signed on 03/09/2024 06:56 EDT Mendy Sheppard MD Physical therapy Progress note * Maryann Will SUPERINTENDENT CIRCUS: PERFORM Event Display: Physical Therapy Progress Note Authored Date: [id number] Patient ID and date of checked:??Yes, verbally *Current Level of Care: In-Patient *Admitting Diagnosis: Altered mental status *Therapy Diagnosis: Decreased functional mobility Pertinent Medical History: Johnson is a 73 year old who is seen due to altered mental status. A couple weeks before this he was in the hospital for a cardiac catheterization and had a CVA. Subjective: I'm feeling pretty good. Pain: ?none Bed Mobility: n/a Activity Assistance Comments Rolling Scooting/Repositioning Supine to Sit Sit to Supine Transfers: Activity Assistive Device Assistance Comments Sit to Stand ??RW ??S ??On RA, no instability noted, min SOB, SpO2 = 98% Stand to Sit RW ??S Bed to Chair Chair to Bed Shower Transfer Toilet Transfer Ambulation: Assistance Assistive Device Distance Comments SBA ??RW ??18ft x 3, 45ft ??On RA SpO2 = 96% Stairs: Assistance Assistive Device # Steps Comments ??CGA ??2 rails ??6 ??on RA SpO2 decreased to 88%, needing 15sec standing recovery to reach 91%. Min SOB noted. Able tocontinue with PT. Wheelchair Mobility: n/a Assistance Distance Comments *Procedure Documentation: ?? CPT 18292: Gait Training:? 24 minutes Gait and/or stair training to promote improved sequencing, safety and movement quality for functional mobility. Treatment techniques utilized today included: - transfers as above - static standing x 1 min twice with S and no UE assist - amb as above - stairs as above Reported above to PT and to pt's' nurse *Patient Education: reviewed pursed lipped breathing with ambulation and stairs *Physical Therapy Assessment: ??Johnson is sitting in his recliner without O2 on. His SpO2 throughouttreatment has improved. He demonstrates no instability with ambulation or on the stairs today, which is an improvement. Goal Updates: ??progressing *PT Plan of Care: ??continue , progress hep as tolerated *Total Time: ??24 minutes Electronically Signed on 03/13/2024 11:00 EDT Maryann Will SUPERINTENDENT CIRCUS * Sammie Robins PT: PERFORM Event Display: Physical Therapy Progress Note Authored Date: Patient ID and date of checked:??Yes, verbally *Current Level of Care: In-Patient *Admitting Diagnosis: Altered mental status *Therapy Diagnosis: Decreased functional mobility Pertinent Medical History: Johnson is a 73 year old who is seen due to altered mental status. A couple weeks before this he was in the hospital for a cardiac catheterization and had a CVA. Subjective: Pt is willing to participate, however he reports he has stomach ache and is constipated . He remains on 2L 02 and reports magnesium is low at this time. Pain: ?none reported Bed Mobility: Activity Assistance Comments Rolling Scooting/Repositioning Supine to Sit Sit to Supine Transfers: Activity Assistive Device Assistance Comments Sit to Stand ??RW ??SBA ??Minimal instability however reported dizziness and was set back down in chair with Sp02 at rest 98/63 noted on 2L via nc Stand to Sit RW ??SBA Bed to Chair Chair to Bed Shower Transfer Toilet Transfer Ambulation: Assistance Assistive Device Distance Comments ??CGA-SBA ??RW ??120' X 1 ??Minimal instability however returned to chair due to fatigue and complaint of sob noted 88 spo2 and hr 93 with needing 3 minute recovery seated resting SPO2 98 and HR 71 at end of session Stairs: ??not attempted this session *Procedure Documentation: ?? CPT 94811: Gait Training:? 20 minutes Gait and/or stair training to promote improved sequencing, safety and movement quality for functional mobility. Treatment techniques utilized today included: Ambulation and stairs as documented above. CPT 62490: Therapeutic Exercise:?15?? minutes Therapeutic exercise to promote improved joint stability, strength, endurance, and range of motion for functional ADL???s such as: Specific education/training provided: seated yellow theraband exercises copy of exercises in room *Patient Education: energy conservation, pursed lipped breathing with ambulation *Physical Therapy Assessment: Patient session was shorter today due to fluctuation of 02 and HR stats. PT will attempt to work with patient later today if he is able to progress toward goals Goal Updates: ??progressing *PT Plan of Care: ??continue , progress hep as tolerated *Total Time: ??35 minutes *Time In:1100am *Time Out: 1135am Electronically Signed on 03/12/2024 12:15 EDT Sammie Robins PT * Eddie Vaughn PT, DPT: PERFORM Event Display: Physical Therapy Progress Note Authored Date: [id number] Patient ID and date of checked:??Yes, verbally *Current Level of Care: In-Patient *Admitting Diagnosis: Altered mental status *Therapy Diagnosis: Decreased functional mobility Pertinent Medical History: Johnson is a 73 year old who is seen due to altered mental status. A couple weeks before this he was in the hospital for a cardiac catheterization and had a CVA. Subjective: Pt is willing to participate, following ambulation and stairs in the morning he is quite fatigued. After being seen again in the afternoon he is feeling slightly better but still fatigued. After Adolph went through last night I feel a little less steady and strong. Pt left each time in the care ofhis with alarm on. Pt's can ambulate with him though and she was educated on safe guarding. Pain: ?none reported Bed Mobility: Activity Assistance Comments Rolling Scooting/Repositioning Supine to Sit Sit to Supine ??I Transfers: Activity Assistive Device Assistance Comments Sit to Stand ??RW ??SBA ??Minimal instability Stand to Sit RW ??SBA ??Needs cues for controlled sitting Bed to Chair Chair to Bed Shower Transfer Toilet Transfer Ambulation: Assistance Assistive Device Distance Comments ??CGA-SBA ??RW ??180' X 3 425' X 1 ??Minimal instability especially with turning and both he and his educated on safety with turning technique using RW. Stairs: Assistance Assistive Device # Steps Comments ??SBA Bilateral hand rails ??x4 in the morning and x8 in the afternoon ??Pt has good stability on stairs and needs cues with IV awareness. He moves slowly and cautiously when descending. *Procedure Documentation: ?? CPT 05792: Gait Training:? 29 minutes Gait and/or stair training to promote improved sequencing, safety and movement quality for functional mobility. Treatment techniques utilized today included: Ambulation and stairs as documented above. *Patient Education: Safety with turning using RW. *Physical Therapy Assessment: Pt is progressing with ambulation independence and endurance today despite fatigue. He was seen in the morning and the afternoon in order to challenge his endurance and progress his safety in two sessions for best outcome. Pt should DC with home health services for best functional mobility prognosis. Goal Updates: ??progressing *PT Plan of Care: ??continue , progress hep as tolerated *Total Time: ??29 minutes *Time In: 1029; 1329 *Time Out: 1041; 1346 Electronically Signed on 03/11/2024 14:08 EDT Eddie Vaughn PT, DPT Emergency department Note * Mara Pascal M: PERFORM Event Display: ED Notes Authored Date: [id number] * Sepideh Gerber M: PERFORM Event Display: ED Notes Authored Date: [id number] Progress note * Aniket Michael MD: PERFORM Event Display: Progress Note - Physician Authored Date: [id number] JOHNSON PAYNE :1950 Age:73 years Sex:Male Visit Date:03/09/2024 Primary Care Physician: Quinn [facility], Ramiro Noe MD Subjective Patient is seen and examined in follow-up for altered mental status, hypomagnesemia, CKD, GERD, history of recent CVA.?? at bedside.?? Mental status is stabilized. ??Repeat CT scan performed??and has been sent to teleneurology waiting to hear a call back.?? Off of ASA and Plavix per their recommendations.?? Patient had increasing O2 requirements overnight??and remains on 2 L.?? Patient with complaints of dyspnea on exertion and now has lower extremity edema.?? No chest pain or nausea vomiting. Review of Systems See above Objective Vitals & Measurements T:??37.0?C ??(Temporal Artery)?? TMIN:??36.0?C ??(Temporal Artery)?? TMAX:??37.0?C ??(Temporal Artery)?? HR:??76??(Monitored)?? RR:??20?? BP:??114/74?? SpO2:??93%?? Pain Score:??0?? O2 Flow Rate:??1?? O2 Therapy:??Nasal cannula?? Physical Exam General: Patient is awake, alert, oriented, NAD HEENT: Normocephalic, PERR, EOMI, sclera anicteric. Oropharynx: clear, mucous membranes moist Neck: Supple without appreciable thyromegaly. Trachea midline Lungs: Clear to auscultation and percussion. W/O wheeze, rhonchi or rale??few bibasilar crackles Heart: Regular rate and rhythm without M/R/G.?? Abdomen: Normal , nondistended, soft and ntender to palpationright lower mid abdomen with no palpable mass or hepatosplenomegaly. No guarding or rebound. Bowel sounds positive. Extremities:??Plus edema bilateral lower extremities Skin: Normal color, warm and dry, without lesions. Neuro: Awake and alert, oriented x 3, CN II-XII grossly intact by confrontation, left side slightlyweaker than right no tremor. Psych: Normal affect and mood.?? Lab Results Last 24 Hours?? Chemistry ? Event Name?? Event Result?? Date/Time?? Sodium Level 124 mmol/L??Critical 03/12/24 11:09:00 Potassium Level 3.8 mmol/L 03/12/24 11:09:00 Chloride Level 89 mmol/L??Low 03/12/24 11:09:00 CO2 24 mmol/L 03/12/24 11:09:00 BUN 11 mg/dL 03/12/24 11:09:00 Glucose Level 215 mg/dL??High 03/12/24 11:09:00 Creatinine Level 1 mg/dL 03/12/24 11:09:00 eGFR AA 79 03/12/24 11:09:00 eGFR Non-AA 79 03/12/24 11:09:00 Calcium Level 8.3 mg/dL??Low 03/12/24 11:09:00 Phosphorus Level 2 mg/dL??Low 03/12/24 11:09:00 Albumin Level 2.7 g/dL??Low 03/12/24 11:09:00 Magnesium Level 1.6 mg/dL??Low 03/12/24 06:55:00 Glucose POC 209 mg/dL??High 03/12/24 11:25:00 ? Hematology ? Event Name?? Event Result?? Date/Time?? WBC 9.1 x10^3/mcL 03/12/24 06:55:00 RBC 3.2 x10^6/mcL??Low 03/12/24 06:55:00 Hgb 8.7 g/dL??Low 03/12/24 06:55:00 Hct 25.1 %??Low 03/12/24 06:55:00 MCV 79.7 fL??Low 03/12/24 06:55:00 MCH 27.6 pg 03/12/24 06:55:00 MCHC 34.7 g/dL 03/12/24 06:55:00 RDW-CV 16 %??High 03/12/24 06:55:00 Platelets 236 x10^3/mcL 03/12/24 06:55:00 Segs Man 82 %??High 03/12/24 06:55:00 Lymph Man 6 %??Low 03/12/24 06:55:00 Clark Man 11 % 03/12/24 06:55:00 Eos Man 1 % 03/12/24 06:55:00 Baso Man 0 % 03/12/24 06:55:00 Band Man 0 % 03/12/24 06:55:00 Abs Neut Man 7.5 x10^3/mcL 03/12/24 06:55:00 RBC Morph Abnormal 03/12/24 06:55:00 Microcyte Rare 03/12/24 06:55:00 Poik Rare 03/12/24 06:55:00 Slide Review Man Diff 03/12/24 06:55:00 ? Assessment/Plan 1.??Altered mental status??R41.82 ??POA.?? Seen by teleneurology.?? Patient status post CVA with tPA 2 weeks prior to admission at [facility].?? Medication recommendation at their discharge was aspirin and Plavix.?? Repeat imaging at [facility] showed some possible hemorrhagic??conversion on MRI.?? Discussed with??teleneurology and recommendation is to discontinue ASA and Plavix.?? Repeat CT scan??performed??with results sent to teleneurology. ??Awaiting callback further further recommendations. 2.??Hypomagnesemia??E83.42 ??POA, replete, recheck,??remains low and will give additional 2 g magnesium today.?? Patient hypokalemic again.?? More aggressive??replacement today given??diuresis. 3.??Coronary arteriosclerosis??I25.10 ??History of CAD???status post CABG.?? Recent NSTEMI??and cardiac catheterization at [facility].?? No lesions requiring intervention.?? With the exception of patient's Plavix and ASA??we are continuing other??routine medications per the recommendation 4.??Gastroesophageal reflux disease??K21.9 ??Continue omeprazole 5.??Hypertensive disorder??I10 ??Toprol, Entresto 6.??Type 2 diabetes mellitus??E11.9 ??Oral medications being held.?? Patient's blood sugars more elevated in the last 24 hours.?? Continue fingerstick blood sugar and sliding scale. 7.??Hyperlipidemia??E78.5 ? Mixed, statin 8.??Hypoxia??R09.02 ??Intermittently requiring oxygen during his stay.?? Initially showing signs of pulmonary edema on chest x-ray with good results after IV Lasix and had weaned to room air.?? Patient had O2 requirements up to 4 L last evening and now on 2 L at 96%.?? Given additional Lasix today.?? Has lower extremity edema and Doppler examination ordered.?? Positive will get a CT scan of chest with contrast to rule out PE Orders: Lasix, 40 mg = 1 tab, Oral, Tab, Daily for 30 days, First Dose: 03/12/24 9:00:00 EDT, Stop Date: 04/11/24 8:59:00 EDT, Physician Stop, Routine Incentive Spirometry by Patient, 03/12/24 7:40:00 EDT, Atelectasis US Lower Ext Venous Duplex Bilateral, 03/12/24 0:00:00 EDT, Routine, Reason: EDEMA, Reason: EDEMA, Exam to be performed outside organization? Electronically Signed on 03/12/2024 15:04 EDT Aniket Michael MD * Aniket Michael MD: PERFORM Event Display: Progress Note - Physician Authored Date: [id number] JOHNSON PAYNE :1950 Age:73 years Sex:Male Visit Date:03/09/2024 Primary Care Physician: Quinn [facility], Ramiro Noe MD Subjective Patient is seen and examined in follow-up for altered mental status, hypomagnesemia, CKD, GERD, history of recent CVA.?? remains at the bedside. ??Patient's mental status has stabilized.?? Did discuss with??teleneurology who also did a televisit today.?? Holding ASA and Plavix.?? Repeat??CT scan of head without contrast.?? Faxed information regarding patient's workup including images and echocardiogram??to teleneurology.?? Patient currently with cough,??no nausea or vomiting Review of Systems See above Objective Vitals & Measurements T:??36.1?C ??(Temporal Artery)?? TMIN:??36.1?C ??(Temporal Artery)?? TMAX:??36.2?C ??(Temporal Artery)?? HR:??77??(Monitored)?? RR:??18?? BP:??135/74?? SpO2:??97%?? Pain Score:??0?? O2 Flow Rate:??2?? O2 Therapy:??Room air?? Physical Exam General: Patient is awake, alert, oriented, NAD HEENT: Normocephalic, PERR, EOMI, sclera anicteric. Oropharynx: clear, mucous membranes moist Neck: Supple without appreciable thyromegaly. Trachea midline Lungs: Clear to auscultation and percussion. W/O wheeze, rhonchi or rale Heart: Regular rate and rhythm without M/R/G.?? Abdomen: Normal , nondistended, soft and nontender to palpation with no palpable mass or hepatosplenomegaly. No guarding or rebound. Bowel sounds positive. Extremities: No CCE Skin: Normal color, warm and dry, without lesions. Neuro: Awake and alert, oriented x 3, CN II-XII grossly intact by confrontation, minimal weakness left greater than right no tremor. Psych: Normal affect and mood.?? Lab Results Last 24 Hours?? Chemistry ? Event Name?? Event Result?? Date/Time?? Sodium Level 130 mmol/L??Low 03/11/24 06:55:00 Potassium Level 4.1 mmol/L 03/11/24 06:55:00 Chloride Level 94 mmol/L??Low 03/11/24 06:55:00 CO2 25 mmol/L 03/11/24 06:55:00 BUN 10 mg/dL 03/11/24 06:55:00 Glucose Level 195 mg/dL??High 03/11/24 06:55:00 Creatinine Level 0.91 mg/dL 03/11/24 06:55:00 eGFR AA 88 03/11/24 06:55:00 eGFR Non-AA 88 03/11/24 06:55:00 Calcium Level 8.7 mg/dL 03/11/24 06:55:00 Magnesium Level 1.2 mg/dL??Low 03/11/24 06:55:00 Glucose POC 220 mg/dL??High 03/11/24 16:14:00 ? Hematology ? Event Name?? Event Result?? Date/Time?? WBC 8.1 x10^3/mcL 03/11/24 06:55:00 RBC 3.5 x10^6/mcL??Low 03/11/24 06:55:00 Hgb 9.4 g/dL??Low 03/11/24 06:55:00 Hct 27.6 %??Low 03/11/24 06:55:00 MCV 79.3 fL??Low 03/11/24 06:55:00 MCH 27 pg 03/11/24 06:55:00 MCHC 34.1 g/dL 03/11/24 06:55:00 RDW-CV 15.8 %??High 03/11/24 06:55:00 Platelets 264 x10^3/mcL 03/11/24 06:55:00 Neutro Auto 77.8 %??High 03/11/24 06:55:00 Lymph Auto 10.4 %??Low 03/11/24 06:55:00 Clark Auto 9.4 % 03/11/24 06:55:00 Eos, Auto 1.4 % 03/11/24 06:55:00 Basophil Auto 0.4 % 03/11/24 06:55:00 Imm Gran Auto 0.6 % 03/11/24 06:55:00 Neutro Absolute 6.3 x10^3/mcL 03/11/24 06:55:00 RBC Morph Abnormal 03/11/24 06:55:00 Microcyte Rare 03/11/24 06:55:00 Ovalocytes Rare 03/11/24 06:55:00 Slide Review Morph Only 03/11/24 06:55:00 ? Assessment/Plan 1.??Altered mental status??R41.82 ??POA.?? Initially seen by teleneurology in ED and felt NIH score was 3.?? Patient was status post CVA with tPA 2 weeks prior at [facility].?? Medication recommendation at that time was for aspirin and Plavix.?? Repeat imaging performed at [facility] shows some possible hemorrhagic conversion??on MRI. ??Did discuss with neurology??recommendation is to discontinue ASA and Plavix.?? Repeat CT scan free of any evidence of bleeding.?? Patient also seen by teleneurology earlier this date.?? Patient's mental status is now back to baseline 2.??Hypomagnesemia??E83.42 ??POA, replete, recheck 3.??Coronary arteriosclerosis??I25.10 ??History of CAD???status post CABG.?? Recent NSTEMI and cardiac cath at [facility].?? No lesions requiring intervention at that time.?? Will continue patient's other medications except for Plavix and aspirin as above 4.??Gastroesophageal reflux disease??K21.9 ??Omeprazole 5.??Hypertensive disorder??I10 ??Metoprolol, Entresto 6.??Type 2 diabetes mellitus??E11.9 ??Oral medications being held.?? Fingerstick blood sugar and sliding scale before meals and at bedtime. ??ADA diet 7.??Hyperlipidemia??E78.5 ??Statin Orders: Lasix, 20 mg = 1 tab, Oral, Tab, Once, First Dose: 03/11/24 17:00:00 EDT, Stop Date: 03/11/24 17:00:00 EDT, Physician Stop, Routine Lasix, 40 mg = 1 tab, Oral, Tab, Daily for 30 days, First Dose: 03/12/24 9:00:00 EDT, Stop Date: 04/11/24 8:59:00 EDT, Physician Stop, Routine Entresto 24 mg-26 mg oral tablet, 1 tab, Oral, Tab, BID, First Dose: 03/11/24 9:00:00 EDT, Routine sodium chloride 1 g oral tablet, 1 g = 1 tab, Oral, Tab, TID, First Dose: 03/11/24 9:00:00 EDT, Routine CT Brain/Head w/o Contrast, 03/11/24 16:38:00 EDT, Stat, Reason: f/u CVA, Transport Mode: Wheelchair, Exam to be performed outside organization? Electronically Signed on 03/11/2024 17:13 EDT Aniket Michael MD * Aniket Michael MD: PERFORM Event Display: Progress Note - Physician Authored Date: [id number] JOHNSON PAYNE :1950 Age:73 years Sex:Male Visit Date:03/09/2024 Primary Care Physician: Quinn [facility], Ramiro Noe MD Subjective Patient seen and examined in follow-up for altered mental status, hypomagnesemia,??CKD,??GERD,??history of CVA.?? Patient's is at the bedside currently feels that his mental status has returned to normal.?? Repeat MRI as recommended by neurology??but??comparison imaging from [facility]'s has been unavailable. ??We are trying to track those down.?? Findings read as acute/subacute or chronic. ??Unclear whether this is related to patient's previous??CVA 2 weeks prior.?? Patient without chest pain, nausea or vomiting Review of Systems See above Objective Vitals & Measurements T:??36.4?C ??(Temporal Artery)?? TMIN:??36.0?C ??(Temporal Artery)?? TMAX:??36.8?C ??(Temporal Artery)?? HR:??77??(Peripheral)?? RR:??18?? BP:??116/70?? SpO2:??90%?? WT:??75.5??kg?? Pain Score:??0?? O2 Therapy:??Room air?? Physical Exam General: Patient is awake, alert, oriented, NAD HEENT: Normocephalic, PERR, EOMI, sclera anicteric. Oropharynx: clear, mucous membranes moist Neck: Supple without appreciable thyromegaly. Trachea midline Lungs: Clear to auscultation and percussion. W/O wheeze, rhonchi or rale Heart: Regular rate and rhythm without M/R/G.?? Abdomen: Normal , nondistended, soft and nontender to palpation with no palpable mass or hepatosplenomegaly. No guarding or rebound. Bowel sounds positive. Extremities: No CCE Skin: Normal color, warm and dry, without lesions. Neuro: Awake and alert, oriented x 3, CN II-XII grossly intact by confrontation, slight weakness left greater than right Psych: Normal affect and mood.?? Lab Results Last 24 Hours?? Chemistry ? Event Name?? Event Result?? Date/Time?? Sodium Level 132 mmol/L??Low 03/10/24 06:45:00 Potassium Level 4.2 mmol/L 03/10/24 06:45:00 Chloride Level 98 mmol/L 03/10/24 06:45:00 CO2 25 mmol/L 03/10/24 06:45:00 BUN 10 mg/dL 03/10/24 06:45:00 Glucose Level 136 mg/dL??High 03/10/24 06:45:00 Creatinine Level 0.98 mg/dL 03/10/24 06:45:00 eGFR AA 81 03/10/24 06:45:00 eGFR Non-AA 81 03/10/24 06:45:00 Calcium Level 8.4 mg/dL??Low 03/10/24 06:45:00 Magnesium Level 1.2 mg/dL??Low 03/10/24 06:45:00 Glucose POC 144 mg/dL??High 03/10/24 16:34:00 ? Hematology ? Event Name?? Event Result?? Date/Time?? WBC 6.4 x10^3/mcL 03/10/24 06:45:00 RBC 3.3 x10^6/mcL??Low 03/10/24 06:45:00 Hgb 8.9 g/dL??Low 03/10/24 06:45:00 Hct 26.8 %??Low 03/10/24 06:45:00 MCV 81.5 fL 03/10/24 06:45:00 MCH 27.1 pg 03/10/24 06:45:00 MCHC 33.2 g/dL 03/10/24 06:45:00 RDW-CV 15.9 %??High 03/10/24 06:45:00 Platelets 245 x10^3/mcL 03/10/24 06:45:00 Neutro Auto 72.3 % 03/10/24 06:45:00 Lymph Auto 12.6 %??Low 03/10/24 06:45:00 Clark Auto 10.2 % 03/10/24 06:45:00 Eos, Auto 3.4 % 03/10/24 06:45:00 Basophil Auto 0.9 % 03/10/24 06:45:00 Imm Gran Auto 0.6 % 03/10/24 06:45:00 Neutro Absolute 4.7 x10^3/mcL 03/10/24 06:45:00 ? Diagnostic Results MRI Brain w/o Contrast PROCEDURE INFORMATION:?? Exam: MR Head Without Contrast?? Exam date and time: 03/10/2024 2:38 PM?? Age: 73 years old?? Clinical indication: Altered mental status, facial droop, lower?? extremity ataxia, R/O stroke? TECHNIQUE:?? Imaging protocol: Magnetic resonance imaging of the head without?? contrast.? COMPARISON:?? CT HEAD/BRAIN WO CONTRAST 03/09/2024 6:35 AM? FINDINGS:?? Brain: There is very small linear chronic infarct in left cerebellar?? hemisphere. There is mixture of subacute methemoglobin chronic?? hemosiderin staining in the right posterior mesial temporal lobe?? involving hippocampus as well as subacute methemoglobin in the?? posterior thalamus. There is minimal persistent linear cortical?? increased signal on diffusion-weighted images in the mesial temporal?? region which likely shows low signal on ADC map and is consistent?? with small areas of persistent resolving restricted diffusion in the?? subacute to chronic infarct. There is also a separate area of?? restricted diffusion in the lateral right thalamus and adjacent?? posterior limb of internal capsule which is therefore consistent with?? an additional area of acute to subacute and more recent lacunar?? infarct. This shows no blood products. Few small areas of increased?? cerebral white matter FLAIR signal consistent with mild microvascular?? change.?? Cerebral ventricles: Normal. No ventriculomegaly.?? Bones: Unremarkable.?? Paranasal sinuses: Normal as visualized. No acute sinusitis.?? Mastoid air cells: No significant mastoid effusion.?? Orbital cavities: There have been bilateral intraocular lens?? replacements likely related to cataract surgery.?? Soft tissues: Unremarkable as visualized.? IMPRESSION:?? 1. ?? Area of subacute to chronic infarct in right posterior mesial?? temporal lobe with both subacute and chronic hemorrhage. Additional?? area of subacute hemorrhage in the right posterior thalamus.?? 2. ?? Separate area of restricted diffusion and acute to subacute?? infarct without hemorrhage in right lateral thalamus and adjacent?? posterior limb of internal capsule.? Report signed by: Diana Duckworth On 03/10/2024 ??15:41:13 [1] Assessment/Plan 1.??Altered mental status??R41.82 ??Patient seen by teleneurology in ED and felt NIH score was??3.?? Patient is status post CVA and tPA 2 weeks prior at [facility].?? Recommendation to continue aspirin 81 mg, Plavix 75 mg. ??Continue statin as well.?? MRI brain??without contrast obtained??and findings as listed??later in note.?? Waiting for comparison results from [facility].?? Patient otherwise??near normal according to family??at the bedside.?? Entresto held for permissive hypertension and will resume 2.??Hypomagnesemia??E83.42 ??Initial magnesium level 0.7. ??Given 3 g of mag but remained hypomagnesemic??and given an additional??grams of magnesium. ??Recheck in a.m. 3.??Coronary arteriosclerosis??I25.10 ??History of CAD???status post CABG,??recent NSTEMI and cardiac cath??2 weeks prior with no??lesions requiring intervention.?? CVA occurred at the end of patient's cardiac catheterization.?? Aspirin 81, Plavix 75, statin and metoprolol. 4.??Gastroesophageal reflux disease??K21.9 ??Omeprazole 5.??Hypertensive disorder??I10 ??Metoprolol, Entresto 6.??Type 2 diabetes mellitus??E11.9 ??Oral medications being held.?? Before meals and at bedtime sliding scale, ADA diet/cardiac 7.??Hyperlipidemia??E78.5 ? Mixed, statin Orders: GlucaGen, 1 mg = 1 EA, Intramuscular, Kit, As Directed, PRN low blood sugar, First Dose: 03/10/24 10:17:00 EDT, Routine glucose 40% oral gel, 15 g = 37.5 mL, Oral, Gel, As Directed, PRN low blood sugar, First Dose: 03/10/24 10:17:00 EDT, Routine Dextrose 50% intravenous solution, 25 g 50 mL, IV Push, Soln-IV, As Directed, PRN low blood sugar, First Dose: 03/10/24 10:16:00 EDT, Routine glucose 40% oral gel, 30 g = 75 mL, Oral, Gel, As Directed, PRN low blood sugar, First Dose: 03/10/24 10:17:00 EDT, Routine insulin lispro (HumaLog) correction- sensitive, Sensitive Scale, Subcutaneous, Soln, QID(ACHS), First Dose: 03/10/24 11:30:00 EDT, Routine Blood Glucose Monitoring POC, 03/10/24 10:29:00 EDT, QIDACHS, 03/10/24 11:30:00 EDT Change attending to, 03/10/24 7:02:00 EDT, Aniket Michael MD [1]??MRI Brain w/o Contrast; [employer]User, Generated 03/10/2024 14:38 EDT Electronically Signed on 03/10/2024 17:02 EDT Aniket Michael MD History and physical note * Vale Rivera MD: PERFORM, MODIFY Event Display: History and Physical Authored Date: [id number] JOHNSON PAYNE Maribel :1950 Age:73 years Sex:Male Visit Date:03/09/2024 Primary Care Physician: Ramiro Landry MD Chief Complaint AMS post hospitalization at [facility], low magnesium. History of Present Illness The patient is a 73-year-old male with a past medical history of coronary artery disease status post CABG with recent cardiac catheterization couple weeks prior and stroke while in hospital, GERD, hypertension, type 2 diabetes mellitus, hyperlipidemia who presented to the emergency department with a chief complaint of altered mental status.?? Patient had apparently woken up in the nighttime with altered mental status and brought into the emergency department found by his .?? He otherwise denies any other complaints.?? Denies any fevers or chills, chest pain, dyspnea, cough, abdominal pain, nausea, vomiting, diarrhea, lightness or dizziness.?? In the emergency department his vital signs were unremarkable.?? Labs significant for hemoglobin of 9.8, hematocrit 29.1, WBC count 8.0, platelet count 292, sodium 131, chloride 95, BUN 11, creatinine 0.99, magnesium level 0.7, albumin 2.8.?? proBNP of 2760, troponin 12.9.?? UA 1+ protein otherwise unremarkable.?? COVID test was negative.?? Chest x-ray with patchy perihilar opacities with no focal consolidation.?? CT of the brain was negative for any acute intracranial abnormality.?? Teleneurology consultation was completed in the emergency department. Review of Systems Constitutional:?No??fevers,?No??chills,?No??sweats Eye:?No??recent visual problems ENT:?No??ear pain,?No??nasal congestion,?No??sore throat Respiratory:?No??shortness of breath,?No??cough Cardiovascular:?No??Chest pain,?No??palpitations,?No??syncope Gastrointestinal:?Nonausea,?No??vomiting,?No??diarrhea Genitourinary:?No??hematuria?? Christo/Lymph:?No??bruising tendency,?No??swollen lymph glands Endocrine:?No??excessive thirst,??No??excessive hunger Musculoskeletal:??No??back pain,??No??neck pain,??No??joint pain,??No??muscle pain,??No??decreased range of motion Integumentary:?No??rash,?No??pruritus,?No??abrasions Neurologic:??Alert & oriented X 4 Psychiatric:?No??anxiety,?No??depression Physical Exam Vitals & Measurements T:??36.4?C ??(Temporal Artery)?? TMIN:??36.4?C ??(Temporal Artery)?? TMAX:??36.6?C ??(Temporal Artery)?? HR:??91??(Peripheral)?? RR:??18?? BP:??120/98?? SpO2:??95%?? HT:??170??cm?? WT:??75.5??kg?? BMI:??26.12?? O2 Therapy:??Room air?? General:??Alert and oriented, well nourished,?No??acute distress Eye:??PERRL, EOMI,?Normal?conjunctiva HENT:??Normocephalic,??Normal?hearing, moist oral mucosa,?No??scleral icterus,?No??sinustenderness Neck:??Supple, non-tender,?No??JVD,?No??lymphadenopathy Lungs:??Clear to auscultation and percussion,?Non-labored?respiration Heart:?Normal?rate,?Regular??rhythm,?No??murmur,?No??gallop,?No??edema Abdomen:??Soft, non-tender, non-distended,?Normal?bowel sounds,?No??masses Musculoskeletal:?Normal?range of motion and strength,?No??tenderness,?No??swelling Skin:??Skin is warm, dry and pink,?No??rashes,?No??lesions Neurologic:??Awake, alert and oriented X3, CN II-XII grossly??intact Psychiatric:??Cooperative, appropriate mood and affect Assessment/Plan 1.??Altered mental status??R41.82 ??73-year-old male who presents to the emergency department for altered mental status??according toteleneurology they felt his NIHSS score was 3. ??Patient did recently have a stroke couple weeks prior??while in hospital for NSTEMI.?? Continue aspirin 81 mg p.o. daily, Plavix 75 mg p.o. daily which is his home medications. ??Continue statin. ??Monitor on telemetry. ??Will obtain MRI of the brainwithout contrast.?? Admitting as inpatient due to??his strokelike symptoms as well as due to the severity of his hypomagnesemia of 0.7. ??PT and OT to evaluate.?? Depending on??results of MRI will consider??further workup with echocardiogram with bubble study.?? Will hold Entresto to allow for permissive hypertension. 2.??Hypomagnesemia??E83.42 ??Magnesium level 0.7 and symptomatic. ??Giving 3 g of magnesium sodium sulfate IV??will get start magnesium oxide 400 mg p.o. daily. ??Continue to monitor. ??Monitor on telemetry.?? 3.??Coronary arteriosclerosis??I25.10 ??History of coronary artery disease status post CABG with recent NSTEMI and cardiac cath a couple weeks prior with no intervenable??lesions. ??Continue aspirin 81 mg p.o. daily, Plavix 75 mg p.o. daily, statin??and metoprolol tartrate 100 mg p.o. twice daily. 4.??Gastroesophageal reflux disease??K21.9 ??Continue omeprazole 20 mg p.o. daily. 6.??Type 2 diabetes mellitus??E11.9 ??Holding home oral diabetic agents. ??Continue insulin sliding scale, Chemstrips AC plus at bedtime and diabetic diet. 7.??Hyperlipidemia??E78.5 ??Continue statin. Orders: acetaminophen, 650 mg = 2 tab, Oral, Tab, every 6 hr, PRN pain, mild, First Dose: 03/09/24 8:55:00 EDT, STAT aspirin, 81 mg = 1 tab, Oral, Tab-Chew, Daily, First Dose: 03/09/24 7:58:00 EDT, STAT atorvastatin, 80 mg = 2 tab, Oral, Tab, Daily, First Dose: 03/09/24 17:00:00 EDT, Routine clopidogrel, 75 mg = 1 tab, Oral, Tab, Daily, First Dose: 03/09/24 7:58:00 EDT, STAT GlucaGen, 1 mg = 1 EA, Intramuscular, Kit, As Directed, PRN low blood sugar, First Dose: 03/09/24 7:59:00 EDT, STAT glucose 40% oral gel, 15 g = 37.5 mL, Oral, Gel, As Directed, PRN low blood sugar, First Dose: 03/09/24 7:59:00 EDT, STAT Dextrose 50% intravenous solution, 25 g 50 mL, IV Push, Soln-IV, As Directed, PRN low blood sugar, First Dose: 03/09/24 7:59:00 EDT, STAT Dextrose 50% intravenous solution, 12.5 g 25 mL, IV Push, Soln-IV, As Directed, PRN low blood sugar, First Dose: 03/09/24 7:59:00 EDT, STAT glucose 40% oral gel, 30 g = 75 mL, Oral, Gel, As Directed, PRN low blood sugar, First Dose: 03/09/24 7:59:00 EDT, STAT insulin lispro (HumaLog) correction- sensitive, Sensitive Scale, Subcutaneous, Soln, QID(ACHS), First Dose: 03/09/24 11:30:00 EDT, Routine lidocaine 1% injectable solution, 1 mg 0.1 mL, Intradermal, Soln, As Directed, PRN other (see comment), First Dose: 03/09/24 8:55:00 EDT, STAT magnesium oxide, 400 mg = 1 tab, Oral, Tab, Daily for 30 days, First Dose: 03/09/24 9:00:00 EDT, Stop Date: 04/08/24 8:59:00 EDT, Physician Stop, Routine magnesium sulfate, 1 g = 100 mL, IV Piggyback, Soln-IV, every 1 hr for 2 doses, Administer over: 1 hr, First Dose: 03/09/24 8:01:00 EDT, Stop Date: 03/09/24 10:00:00 EDT, Physician Stop, Routine, 100mL/hr metoprolol tartrate, 100 mg = 4 tab, Oral, Tab, BID, First Dose: 03/09/24 9:00:00 EDT, Physician Stop, Routine omeprazole, 20 mg = 1 cap, Oral, Cap-DR, Daily, First Dose: 03/10/24 6:00:00 EDT, Physician Stop, Routine ondansetron, 4 mg = 2 mL, IV Push, Soln, every 6 hr, PRN nausea/vomiting, First Dose: 03/09/24 8:55:00 EDT, STAT Normal Saline Flush, 10 mL, IV Push, Soln, every 12 hr (cris), First Dose: 03/09/24 8:55:00 EDT, STAT Sodium Chloride 0.9% 1,000 mL, Total Volume (mL): 1,000, 1,000 mL, Soln-IV, IV, 30 mL/hr, Start Date: 03/09/24 8:55:00 EDT, 75.8 kg, Populate Charting Weight From Order Sodium Chloride 0.9% 1,000 mL, Total Volume (mL): 1,000, mL, 1,000 mL, Soln-IV, IV, 75 mL/hr, StartDate: 03/09/24 9:11:00 EDT, 75.8 kg, Populate Charting Weight From Order Ambulate as Tolerated, 03/09/24 8:55:00 EDT, PRN Basic Metabolic Panel, Blood, Routine, 03/09/24 8:55:00 EDT, every morning, for 3 days, Lab Collect Blood Glucose Monitoring POC, 03/09/24 7:59:00 EDT, QID(ACHS), 03/09/24 11:30:00 EDT Cardiac Monitoring, 03/09/24 8:55:00 EDT, Telemetry CBC w/ Diff, Blood, Routine, 03/09/24 8:55:00 EDT, every morning, for 3 days, Lab Collect Consult to Pharmacy, 03/09/24 8:55:00 EDT, Medication History Consult, PCU General Admission OrdersNCTY Diet Order, 03/09/24 8:55:00 EDT, Diabetic Magnesium Level, Blood, Routine, 03/09/24 8:55:00 EDT, every morning, for 3 days, Lab Collect MRI Brain w/o Contrast, 03/09/24 15:00:00 EDT, Stat, Reason: ALTERED MENTAL STATUS, FACIAL DROOP, LOWER EXTREMITY ATAXIA, R/O STROKE, Reason: ALTERED MENTAL STATUS, FACIAL DROOP, LOWER EXTREMITY ATAXIA, R/O STROKE, Exam to be performed outside organization? Notify Provider of Vital Signs, 03/09/24 8:55:00 EDT, SpO2 < 92% on 2L O2 NC, T > 101.5, HR > 100, HR < 50, SBP greater than 160, SBP less than 90, DBP greater than 90, DBP less than 50, Resp Rate greater than 30, Resp Rate less than 8, Constant Indicator Nursing Task, 03/09/24 7:59:00 EDT, Constant order Nursing Task, 03/09/24 7:59:00 EDT, Constant order OT Evaluation and Treatment Acute., 03/09/24 9:17:00 EDT, Once PSO Admit to Inpatient, Semi-Private Telemetry, Inpatient, Vale Rivera MD, 03/09/24 7:56:00 EDT,03/09/24 7:56:00 EDT, 03/09/24 7:56:00 EDT, 2 midnights or more but less than 96 hrs PT Evaluation and Treatment Acute., 03/09/24 9:17:00 EDT, Once Resuscitation Status, 03/09/24 8:55:00 EDT, Full Code Sequential Compression Devices (SCD's), 03/09/24 8:55:00 EDT, Constant Order, Intermittent pneumatic compression, 03/09/24 8:55:00 EDT Vital Signs, 03/09/24 8:55:00 EDT, Constant order, every 4 hrs Weight, 03/09/24 8:55:00 EDT, PRN, Admission and Discharge Problem List/Past Medical History Ongoing Bilateral knee pain Coronary arteriosclerosis Degenerative arthritis of knee, bilateral Gastroesophageal reflux disease Hyperlipidemia Hypertensive disorder Knee pain Myocardial infarction Type 2 diabetes mellitus Historical No qualifying data Procedure/Surgical History ???Colonoscopy (05/24/2021)???Coronary artery bypass graft (06/13/2020)???Transcatheter aortic valve replacement (06/13/2020)???Diagnostic right heart - Cardiac catheterization (06/03/2020)???Cardiaccatheterization with Stent placement (10/13/1997) Medications Inpatient acetaminophen, 650 mg= 2 tab, Oral, every 6 hr, PRN aspirin, 81 mg= 1 tab, Oral, Daily atorvastatin, 80 mg= 2 tab, Oral, Daily clopidogrel, 75 mg= 1 tab, Oral, Daily Dextrose 50% intravenous solution, 12.5 g= 25 mL, IV Push, As Directed, PRN Dextrose 50% intravenous solution, 25 g= 50 mL, IV Push, As Directed, PRN Entresto 24 mg-26 mg oral tablet, 1 tab, Oral, BID GlucaGen, 1 mg= 1 EA, Intramuscular, As Directed, PRN glucose 40% oral gel, 15 g= 37.5 mL, Oral, As Directed, PRN glucose 40% oral gel, 30 g= 75 mL, Oral, As Directed, PRN insulin lispro (HumaLog) correction- sensitive, Sensitive Scale, Subcutaneous, QID(ACHS) lidocaine 1% injectable solution, 1 mg= 0.1 mL, Intradermal, As Directed, PRN magnesium oxide, 400 mg= 1 tab, Oral, Daily magnesium sulfate, 1 g= 100 mL, IV Piggyback, every 1 hr metoprolol tartrate, 100 mg= 4 tab, Oral, BID Normal Saline Flush, 10 mL, IV Push, every 12 hr (cris) omeprazole, 20 mg= 1 cap, Oral, Daily ondansetron, 4 mg= 2 mL, IV Push, every 6 hr, PRN Sodium Chloride 0.9% 1,000 mL, 1000 mL, IV Sodium Chloride 0.9% 1,000 mL, 1000 mL, IV Home AAA - Misc Prescription acetaminophen 500 mg oral tablet, 1000 mg= 2 tab, Oral, every 6 hr, PRN amLODIPine 5 mg oral tablet aspirin 81 mg oral delayed release tablet, 81 mg= 1 tab, Oral, Daily clopidogrel 75 mg oral tablet, 75 mg= 1 tab, Oral, Daily Entresto 24 mg-26 mg oral tablet, 1 tab, Oral, BID, 11 refills glipiZIDE 10 mg oral tablet, extended release isosorbide mononitrate 30 mg oral tablet, extended release metFORMIN 1000 mg oral tablet Metoprolol Tartrate 100 mg oral tablet multivitamin adult, oral tablet, 1 tab, Oral, Daily omeprazole 20 mg oral delayed release capsule Ozempic pantoprazole 20 mg oral delayed release tablet rosuvastatin 40 mg oral tablet, 40 mg= 1 tab, Oral, Daily, 4 refills Zetia 10 mg oral tablet, 10 mg= 1 tab, Oral, Daily, 4 refills Allergies lisinopril??(Cough) No Known Medication Allergies Social History Alcohol Never Electronic Cigarette/Vaping Electronic Cigarette Use: Never. Substance Use Never Tobacco Never tobacco user Tobacco Use:. Family History Cerebrovascular accident: Father. [place] - myocardial infarction: Father. Immunizations Vaccine Date Status SARS-CoV-2 (COVID-19) mRNA-1273 vaccine 10/13/2020 Recorded SARS-CoV-2 (COVID-19) mRNA-1273 vaccine 09/15/2020 Recorded Lab Results Test Name Test Result Date/Time WBC 8.0 x10^3/mcL 03/09/2024 05:05 EDT RBC 3.6 x10^6/mcL 03/09/2024 05:05 EDT Hgb 9.8 g/dL 03/09/2024 05:05 EDT Hct 29.1 % 03/09/2024 05:05 EDT MCV 81.1 fL 03/09/2024 05:05 EDT MCH 27.3 pg 03/09/2024 05:05 EDT MCHC 33.7 g/dL 03/09/2024 05:05 EDT RDW-CV 15.8 % 03/09/2024 05:05 EDT Platelets 292 x10^3/mcL 03/09/2024 05:05 EDT Neutro Auto 75.4 % 03/09/2024 05:05 EDT Lymph Auto 10.9 % 03/09/2024 05:05 EDT Clark Auto 10.8 % 03/09/2024 05:05 EDT Eos, Auto 1.6 % 03/09/2024 05:05 EDT Basophil Auto 0.8 % 03/09/2024 05:05 EDT Imm Gran Auto 0.5 % 03/09/2024 05:05 EDT Neutro Absolute 6.0 x10^3/mcL 03/09/2024 05:05 EDT Slide Review Not Indicated 03/09/2024 05:05 EDT Sodium Level 131 mmol/L 03/09/2024 05:05 EDT Potassium Level 3.9 mmol/L 03/09/2024 05:05 EDT Chloride Level 95 mmol/L 03/09/2024 05:05 EDT CO2 22 mmol/L 03/09/2024 05:05 EDT Alk Phos 88 unit/L 03/09/2024 05:05 EDT AST 30 unit/L 03/09/2024 05:05 EDT ALT 48 unit/L 03/09/2024 05:05 EDT BUN 11 mg/dL 03/09/2024 05:05 EDT Glucose Level 130 mg/dL 03/09/2024 05:05 EDT Creatinine Level 0.99 mg/dL 03/09/2024 05:05 EDT eGFR AA 80 03/09/2024 05:05 EDT eGFR Non-AA 80 03/09/2024 05:05 EDT Calcium Level 9.2 mg/dL 03/09/2024 05:05 EDT Protein Total 7.3 g/dL 03/09/2024 05:05 EDT Albumin Level 2.8 g/dL 03/09/2024 05:05 EDT Bilirubin Total 0.8 mg/dL 03/09/2024 05:05 EDT Magnesium Level 0.7 mg/dL 03/09/2024 05:17 EDT Troponin-I 12.9 pg/mL 03/09/2024 05:05 EDT NT-proBNP 2760 pg/mL 03/09/2024 05:05 EDT UA Color YELLOW. 03/09/2024 05:12 EDT UA Appear CLEAR. 03/09/2024 05:12 EDT UA Glucose NEGATIVE 03/09/2024 05:12 EDT UA Bili NEGATIVE 03/09/2024 05:12 EDT UA Ketones 1+ 03/09/2024 05:12 EDT UA Spec Grav 1.010 03/09/2024 05:12 EDT UA Blood NEGATIVE 03/09/2024 05:12 EDT UA pH 6.5 03/09/2024 05:12 EDT UA Protein 1+ 03/09/2024 05:12 EDT UA Urobilinogen 1.0 Uro 03/09/2024 05:12 EDT UA Nitrite NEGATIVE 03/09/2024 05:12 EDT UA Leuk Est NEGATIVE 03/09/2024 05:12 EDT UA Culture Ind?. Not Indicated 03/09/2024 05:12 EDT UA WBC 0-3 03/09/2024 05:12 EDT UA RBC 0-2 03/09/2024 05:12 EDT UA Squam Epithelial Rare 03/09/2024 05:12 EDT UA Mucous None Seen 03/09/2024 05:12 EDT UA Bacteria None Seen 03/09/2024 05:12 EDT SARS-CoV-2 (COVID-19) RNA (ID Now) Not Detected 03/09/2024 08:14 EDT Employed in healthcare? Unknown 03/09/2024 08:14 EDT Symptomatic as defined by CDC? Unknown 03/09/2024 08:14 EDT In ICU? Unknown 03/09/2024 08:14 EDT Group care resident? Unknown 03/09/2024 08:14 EDT status? Unknown 03/09/2024 08:14 EDT Electronically Signed on 03/09/2024 09:50 EDT Vale Rivera MD Discharge summary * Aniket Michael MD: PERFORM Event Display: Discharge Summary Authored Date: [id number] ELMERJOHNSON Maribel :1950 Age:73 years Sex:Male Visit Date:03/09/2024 Primary Care Physician: Quinn BURNS, Ramiro Noe MD Hospital Course Patient is a 73 a male with a past medical history of CAD,??recent cardiac catheterization for NSTEMI??at [facility] and??in the hospital??stroke??and status post receipt of tPA, GERD, hypertension, diabetes??who presents to our emergency department with complaint of altered mental status per his family.?? Patient had been at??a transitional care unit for 2 to 3 days and had been started on oxybutynin.?? While at home the stated that he had woken up confused in the middle of the night.?? She brought him into the emergency department to be??evaluated.?? Patient himself had no complaints.??There is no fever, chills, chest pain, dyspnea, cough, abdominal pain nausea or vomiting.?? In the emergency department vital signs were unremarkable.?? Chest x-ray with patchy perihilar opacities but no??consolidation.?? CT of the head was negative??for any acute change.?? Teleneurology consultation was completed the emergency department and recommended admission with??MRI. ?? MRI was completed and did show hemorrhagic conversion in the area as anticipated from his stroke.??At that time??recommendation was to hold ASA and Plavix.?? Repeat CT scanning was also requested which was completed.?? This information was provided to teleneurology??and??the information appeared to be similar to what was on the MRI and without any worsening.?? Recommendation at this time was to resume ASA on a daily basis, hold Plavix??until repeat CT scan could be performed in 1 week.?? 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 A prescription was provided for the patient.?? And recommendations also provided as well. ?? During the patient's hospital stay he developed peripheral edema as well as pulmonary edema??and responded to administration of Lasix.?? He is currently on room air and will be discharged on Lasix 40mg daily.?? This can be further adjusted by cardiology??when he follows up??at [facility]. ?? Patient had significant issues with low magnesium during his hospital stay and required repletion on at least 3 separate days.?? His last dose of IV magnesium sulfate was on the day of discharge. ?? The patient's other chronic medical conditions were stable throughout his hospitalization with no change in regimen ? I certify that this patient is under my care and that I,??Aniket Michael??or a nurse practitioner or physician's assistant research scientist working with me, had a face to face encounter with this patient on:?03/13/2024 ?? I certify/re-certify that the above stated patient is homebound and upon completion of the face to face encounter, has a need/continued need for intermittent group home, physical therapy, and/orspeech or occupational therapy services in their home for their current diagnosis as outlined in their initial plan of care. These services will continue to be monitored by myself or another physician who will periodically review and update the plan of care as required. ?? Name of Community Physician who will monitor the patient's home health services:?[facility], Ramiro Noe MD ?? Skilled services are required for assessment of the patient's??systems due to: [ADMITTING DX OR DIAGNOSIS??THAT REQUIRE??SKILLED SERVICES]??1:Altered mental status; 2:Hypomagnesemia; 3:Coronary arteriosclerosis; 4:Gastroesophageal reflux disease; 5:Hypertensive disorder; 6:Type 2 diabetes mellitus;7:Hyperlipidemia; 8:Hypoxia; 9:Hyponatremia; 10:??Recent CVA with left-sided weakness ?? PHYSICAL THERAPY?x[ ] Order?[ ] N/A? [x ]??Therapy needed to maximize the patient's mobility function. [x ]??Therapy needed to increase strength and endurance for safe ambulation. [ x]??Therapy needed to design/establish a home maintenance program. [ ]??Therapy needed to perform maintenance program on medically complex patient to safely maintain muscle tone, prevent contractures and skin breakdown, and preserve ability to transfer/ambulate withassistance. [ ]??Therapy needed to establish a home exercise program. [ ] Therapy needed for a home safety assessment and teaching/gait training including stair management. ? OCCUPATIONAL THERAPY?[ ] Order? [ ] N/A? [x ] Therapy needed for evaluation/treatment for patient unable to perform ADL/IADL/self-care. [ ] Therapy needed to assess need for adaptive equipment. . ? HOMEBOUND (MANDATORY) The following conditions illustrate the patient's normal inability to the leave home and that leaving home requres a considerable and taxing effort. x[x ] Patient is unable to leave the home because of illness or injury,??requiring the aid of supportive devices such as crutches, canes,??wheelchairs and walkers; the use of special transportation; or the assistance of another to leave their??place of residence. [x ] Patient is unable to leave home without assistance and ambulation is severely limited due to pain, decreased strength and endurance. [x ] Patient is unable to leave home unassisted and experiences shortness of breath and fatigue severely limiting ambulation distance. [ ]??Patient??is unable to leave home without assistance due to an unsteady gait, impaired transfers and inability??to negotiate stairs unassisted. [ ] Patient needs assistance to ambulate, is minimally weightbearing and walking is restricted. [ ] Patient has a deteriorating mental status and is unable to leave home unsupervised. [ ] Patient cognitive impairment makes leaving home unassisted unsafe. [ ] Patient is at risk for seizures and requires supervision/assistance of another person to ambulate. [ ] Leaving home is medically contraindicated due to??[ ] Severe??cognitive impairment; [ ] Impaired mental status;??[ ] High risk of infection.? Physical Exam Vitals & Measurements T:??36.2?C ??(Temporal Artery)?? TMIN:??36.1?C ??(Temporal Artery)?? TMAX:??36.2?C ??(Temporal Artery)?? HR:??75??(Peripheral)?? RR:??18?? BP:??116/72?? SpO2:??95%?? HT:??170??cm?? WT:??73??kg?? Pain Score:??0?? O2 Flow Rate:??1?? O2 Therapy:??Room air?? General: Patient is awake, alert, oriented, NAD HEENT: Normocephalic, PERR, EOMI, sclera anicteric. Oropharynx: clear, mucous membranes moist Neck: Supple without appreciable thyromegaly. Trachea midline Lungs: Clear to auscultation and percussion. W/O wheeze, rhonchi or rale Heart: Regular rate and rhythm without M/R/G.?? Abdomen: Normal , nondistended, soft and nontender to palpation with no palpable mass or hepatosplenomegaly. No guarding or rebound. Bowel sounds positive. Extremities: Trace edema Skin: Normal color, warm and dry, without lesions. Neuro: Awake and alert, oriented x 3, CN II-XII grossly intact by confrontation, left side slightlyweaker than right no tremor. Psych: Normal affect and mood.?? Procedure/Surgical History ???Colonoscopy (05/24/2021)???Coronary artery bypass graft (06/13/2020)???Transcatheter aortic valve replacement (06/13/2020)???Diagnostic right heart - Cardiac catheterization (06/03/2020)???Cardiaccatheterization with Stent placement (10/13/1997) Social History Alcohol Never Electronic Cigarette/Vaping Electronic Cigarette Use: Never. Substance Use Never Tobacco Never tobacco user Tobacco Use:. Lab Results Last 24 Hours?? Chemistry ? Event Name?? Event Result?? Date/Time?? Sodium Level 123 mmol/L??Critical 03/13/24 07:15:26 Potassium Level 3.6 mmol/L 03/13/24 07:15:26 Chloride Level 86 mmol/L??Low 03/13/24 07:15:26 CO2 23 mmol/L 03/13/24 07:15:26 BUN 13 mg/dL 03/13/24 07:15:26 Glucose Level 196 mg/dL??High 03/13/24 07:15:26 Creatinine Level 1 mg/dL 03/13/24 07:15:26 eGFR AA 79 03/13/24 07:15:26 eGFR Non-AA 79 03/13/24 07:15:26 Calcium Level 8.9 mg/dL 03/13/24 07:15:26 Magnesium Level 1.5 mg/dL??Low 03/13/24 07:15:26 Glucose POC 196 mg/dL??High 03/13/24 16:25:00 ? Hematology ? Event Name?? Event Result?? Date/Time?? WBC 10.4 x10^3/mcL??High 03/13/24 07:15:26 RBC 3.7 x10^6/mcL??Low 03/13/24 07:15:26 Hgb 9.9 g/dL??Low 03/13/24 07:15:26 Hct 29 %??Low 03/13/24 07:15:26 MCV 79.2 fL??Low 03/13/24 07:15:26 MCH 27 pg 03/13/24 07:15:26 MCHC 34.1 g/dL 03/13/24 07:15:26 RDW-CV 15.9 %??High 03/13/24 07:15:26 Platelets 292 x10^3/mcL 03/13/24 07:15:26 Neutro Auto 73 % 03/13/24 07:15:26 Lymph Auto 12.5 %??Low 03/13/24 07:15:26 Clark Auto 11.1 % 03/13/24 07:15:26 Eos, Auto 2 % 03/13/24 07:15:26 Basophil Auto 0.7 % 03/13/24 07:15:26 Imm Gran Auto 0.7 % 03/13/24 07:15:26 Neutro Absolute 7.6 x10^3/mcL 03/13/24 07:15:26 RBC Morph Abnormal 03/13/24 07:15:26 Hypochromia Rare 03/13/24 07:15:26 Microcyte Rare 03/13/24 07:15:26 Macrocyte Rare 03/13/24 07:15:26 Polychrom Rare 03/13/24 07:15:26 Slide Review Morph Only 03/13/24 07:15:26 ? Diagnostic Results ?? MRI Brain w/o Contrast Addendum created by Diana Duckworth MD on 03/11/2024 2:37:47 PM EDT: ?? COMPARISON MORE: MR BRAIN WO CONTRAST 02/25/2024 2:08 PM ? As noted there is minimal residual linear cortical restricted?? diffusion in the right hippocampus and previously there was?? significant restricted diffusion in the medial and posterior right?? temporal lobe which has nearly resolved except for the 2 small linear?? areas. ??This therefore is consistent with subacute to chronic infarct?? at this time. ??The area of subacute hemorrhage in the posterior?? aspect of the thalamus is located in area acute to subacute infarct?? in the right posterior thalamus on prior examination. Restricted?? diffusion in this location has resolved. ?? Addendum created by Diana Duckworth MD on 03/11/2024 7:02:36 AM EDT: MOISES Yap received report and has no questions. ??Also, technologist?? replied that hospitalist has seen report. ?? Initial report created on 03/10/2024 3:41:13 PM EDT: ?? PROCEDURE INFORMATION:?? Exam: MR Head Without Contrast?? Exam date and time: 03/10/2024 2:38 PM?? Age: 73 years old?? Clinical indication: Altered mental status, facial droop, lower?? extremity ataxia, R/O stroke? TECHNIQUE:?? Imaging protocol: Magnetic resonance imaging of the head without?? contrast.? COMPARISON:?? CT HEAD/BRAIN WO CONTRAST 03/09/2024 6:35 AM? FINDINGS:?? Brain: There is very small linear chronic infarct in left cerebellar?? hemisphere. There is mixture of subacute methemoglobin chronic?? hemosiderin staining in the right posterior mesial temporal lobe?? involving hippocampus as well as subacute methemoglobin in the?? posterior thalamus. There is minimal persistent linear cortical?? increased signal on diffusion-weighted images in the mesial temporal?? region which likely shows low signal on ADC map and is consistent?? with small areas of persistent resolving restricted diffusion in the?? subacute to chronic infarct. There is also a separate area of?? restricted diffusion in the lateral right thalamus and adjacent?? posterior limb of internal capsule which is therefore consistent with?? an additional area of acute to subacute and more recent lacunar?? infarct. This shows no blood products. Few small areas of increased?? cerebral white matter FLAIR signal consistent with mild microvascular?? change.?? Cerebral ventricles: Normal. No ventriculomegaly.?? Bones: Unremarkable.?? Paranasal sinuses: Normal as visualized. No acute sinusitis.?? Mastoid air cells: No significant mastoid effusion.?? Orbital cavities: There have been bilateral intraocular lens?? replacements likely related to cataract surgery.?? Soft tissues: Unremarkable as visualized.? IMPRESSION:?? 1. ?? Area of subacute to chronic infarct in right posterior mesial?? temporal lobe with both subacute and chronic hemorrhage. Additional?? area of subacute hemorrhage in the right posterior thalamus.?? 2. ?? Separate area of restricted diffusion and acute to subacute?? infarct without hemorrhage in right lateral thalamus and adjacent?? posterior limb of internal capsule.? Report signed by: Diana Duckworth On 03/11/2024 ??14:37:47 [1] ? CT Brain/Head w/o Contrast PROCEDURE INFORMATION:?? Exam: CT Head Without Contrast?? Exam date and time: 03/11/2024 4:56 PM?? Age: 73 years old?? Clinical indication: F/u CVA? TECHNIQUE:?? Imaging protocol: Computed tomography of the head without contrast.?? Radiation optimization: All CT scans at this facility use at least?? one of these dose optimization techniques: automated exposure?? control; mA and/or kV adjustment per patient size (includes targeted?? exams where dose is matched to clinical indication); or iterative?? reconstruction.? COMPARISON:?? MR BRAIN WO CONTRAST 03/10/2024 2:38 PM? FINDINGS:? Brain: Redemonstration of small subacute to early chronic infarct?? involving the right hippocampus. Trace hyperdensity along the?? posterior aspect of the right thalamus and along the posteromedial?? right hippocampus may correlate with areas of microhemorrhage as?? demonstrated on prior MRI. Mild nonspecific hypodensities of the?? periventricular and deep subcortical white matter, most likely?? secondary to chronic microangiopathic ischemic change. No extra-axial?? fluid collection. No evidence of mass effect or midline shift.?? Cerebral ventricles: Mild prominence of the ventricles and sulci,?? most likely attributed to parenchymal volume loss.?? Paranasal sinuses: Unremarkable. No fluid levels.?? Mastoid air cells: Unremarkable.?? Bones: No acute calvarial fracture.?? Soft tissues: Scalp soft tissues are unremarkable.? IMPRESSION:?? 1. ?? 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 2. ?? Trace hyperdensity along the posterior aspect of the right?? thalamus and along the posteromedial right hippocampus may correlate?? with areas of microhemorrhage as demonstrated on prior MRI.?? 3. ?? Other chronic findings, as above.? Report signed by: Daniel Stanton On 03/11/2024 ??17:14:56 [2] Discharge Plan 1.??Altered mental status??R41.82 ??POA.?? Seen by teleneurology.?? [facility] Medication recommendation at their discharge with aspirin Plavix.?? Repeat imaging to [facility] showed some possible hemorrhage conversion??on MRI.?? Discussed with teleneurology and recommendation was to discontinue aspirin and Plavix.?? Repeat CT performed and discussed with teleneurology on 03/13/2024.?? Given the patient's history??of significant 75% stenosis of his right internal carotid??their recommendation now is to start aspirin 81 mg daily.?? Repeat CT scan 1 week??during follow-up with neurology??and then consider dual antiplatelet therapy at that time if st able.?? New prescriptions provided 2.??Hypomagnesemia??E83.42 ??POA, continue throughout patient's hospitalization and received additional magnesium supplementation on day of discharge 3.??Coronary arteriosclerosis??I25.10 ??History of CAD status??CABG. ??Recent NSTEMI and cardiac catheterization at [facility].?? No lesions requiring intervention.?? Patient's other medications continued and now patient will be on ASA at the??recommendation of neurology. ??Follow-up at [facility] as an outpatient 4.??Gastroesophageal reflux disease??K21.9 ??Continue omeprazole 5.??Hypertensive disorder??I10 ??Metoprolol, Entresto,??Lasix 6.??Type 2 diabetes mellitus??E11.9 ??Oral medications resumed at discharge. 7.??Hyperlipidemia??E78.5 ? Mixed, statin 8.??Hypoxia??R09.02 ??Intermittent during patient's hospital stay.?? Patient did develop pulmonary edema which was responsive to Lasix.?? Will DC on Lasix 40 mg daily. ??This can be reevaluated when he follows up at [facility]. 9.??Hyponatremia??E87.1 ??Chronic.?? Unfortunately patient was not started back on his??sodium chloride tablets at admission.?? Resumed during??the latter half of his stay.?? Dosage increased to??2 tablets 3 times daily.?? Recommend renal panel at follow-up at [facility] and further adjustment as needed Orders: aspirin 81 mg oral tablet, chewable, 81 mg = 1 tab, Chewed, Daily, # 30 tab, 0 Refill(s), Pharmacy:[facility], 170, cm, 03/13/24 7:10:00 EDT, Height, 75.8, kg, 03/09/24 4:58:00 EDT, WeightDosing furosemide 40 mg oral tablet, 40 mg = 1 tab, Oral, Daily, # 30 tab, 0 Refill(s), Pharmacy: [facility], 170, cm, 03/13/24 7:10:00 EDT, Height, 75.8, kg, 03/09/24 4:58:00 EDT, Weight Dosing rosuvastatin 40 mg oral tablet, 40 mg = 1 tab, Oral, Daily, # 30 tab, 0 Refill(s), Pharmacy: [facility], 170, cm, 03/13/24 7:10:00 EDT, Height, 75.8, kg, 03/09/24 4:58:00 EDT, Weight Dosing sodium chloride 1 g oral tablet, 2 g = 2 tab, Oral, Tab, TID, First Dose: 03/13/24 9:00:00 EDT, Routine sodium chloride 1 g oral tablet, 2 g = 2 tab, Oral, TID, # 180 tab, 0 Refill(s), Pharmacy: [facility], 170, cm, 03/13/24 7:10:00 EDT, Height, 75.8, kg, 03/09/24 4:58:00 EDT, Weight Dosing tamsulosin 0.4 mg oral capsule, 0.4 mg = 1 cap, Oral, every night at bedtime, # 30 cap, 0 Refill(s), Pharmacy: [facility], 170, cm, 03/13/24 7:10:00 EDT, Height, 75.8, kg, 03/09/24 4:58:00 EDT, Weight Dosing Discharge Patient, 03/13/24 17:15:00 EDT, Home with Home Health, Constant Indicator Fluid Restriction, 03/13/24 8:25:00 EDT, Cardiac, Fluid Permitted: 1500 mL All Diagnoses This Visit Altered mental status Hypomagnesemia Coronary arteriosclerosis Gastroesophageal reflux disease Hypertensive disorder Type 2 diabetes mellitus Hyperlipidemia Hypoxia Hyponatremia Patient Discharge Condition Stable Discharge Disposition Home with home health care Patient Education Delirium Follow Up With When Contact Information [facility], Ramiro Noe MD 03/26/2024 02:00 PM EDT [address] [address]- [phone] Additional Instructions: With Tamia Tsai Medication Reconciliation New Prescription furosemide (furosemide 40 mg oral tablet)1 tab Oral (given by mouth) every day. Refills: 0. ?? rosuvastatin (rosuvastatin 40 mg oral tablet)1 tab Oral (given by mouth) every day. Refills: 0. ?? tamsulosin (tamsulosin 0.4 mg oral capsule)1 Capsules Oral (given by mouth) every night at bedtime.Refills: 0. ?? Changed amLODIPine (amLODIPine 5 mg oral tablet)1 tab Oral (given by mouth) 2 times a day. 180 EA, TAKE ONETABLET BY MOUTH TWICE A DAY. ?? aspirin (aspirin 81 mg oral tablet, chewable)1 tab Chewed every day for 30 Days. Refills: 0. ?? glipiZIDE (glipiZIDE 10 mg oral tablet, extended release)2 tab Oral (given by mouth) every day. 180EA, TAKE TWO TABLETS BY MOUTH EVERY DAY. ?? metFORMIN (metFORMIN 1000 mg oral tablet)1 tab Oral (given by mouth) 2 times a day. 180 EA, TAKE ONE TABLET BY MOUTH TWICE A DAY. ?? metoprolol (Metoprolol Tartrate 100 mg oral tablet)1 tab Oral (given by mouth) 2 times a day. 180 EA, TAKE ONE TABLET BY MOUTH TWICE A DAY. ?? pantoprazole (pantoprazole 40 mg oral delayed release tablet)1 tab Oral (given by mouth) every day. ?? sodium chloride (sodium chloride 1 g oral tablet)1 tab Oral (given by mouth) 3 times a day. ?? sodium chloride (sodium chloride 1 g oral tablet)2 tab Oral (given by mouth) 3 times a day. Refills: 0. ?? Unchanged acetaminophen (acetaminophen 500 mg oral tablet)2 tab Oral (given by mouth) every 6 hours as neededother (see comment). as needed. ?? ezetimibe (Zetia 10 mg oral tablet)1 tab Oral (given by mouth) every day. Refills: 4. ?? ketoconazole topical (ketoconazole 2% topical cream)1 Application Topical (on the skin) every day. ?? multivitamin (multivitamin adult, oral tablet)1 tab Oral (given by mouth) every day. ?? nitroglycerin (nitroglycerin 0.4 mg sublingual tablet)1 tab Sublingual (dissolve under the tongue) every 5 minutes as needed as needed for chest pain. ?? Other Prescription ([facility] Prescription)100 EA, USE ONE DAILY DIRECTED. ?? sacubitril-valsartan (Entresto 24 mg-26 mg oral tablet)1 tab Oral (given by mouth) 2 times a day. Refills: 11. ?? traMADol (traMADol 50 mg oral tablet)1 tab Oral (given by mouth) every 12 hours as needed as neededfor pain. ?? Discontinued amoxicillin (amoxicillin 500 mg oral capsule)4 Capsules Oral (given by mouth) once. given 1 hour prior to the procedure. ?? atorvastatin (atorvastatin 80 mg oral tablet)1 tab Oral (given by mouth) every day. ?? clopidogrel (clopidogrel 75 mg oral tablet)1 tab Oral (given by mouth) every day. ?? isosorbide mononitrate (isosorbide mononitrate 30 mg oral tablet, extended release)1 tab Oral (given by mouth) every morning. ?? omeprazole (omeprazole 20 mg oral delayed release capsule)90 EA, TAKE ONE CAPSULE BY MOUTH EVERY DAY. ?? oxybutynin (oxybutynin 5 mg oral tablet)1 tab Oral (given by mouth) 2 times a day. ?? semaglutide (Ozempic) [1]??MRI Brain w/o Contrast; DomainUser, Generated 03/10/2024 14:38 EDT [2]??CT Brain/Head w/o Contrast; [employer]User, Generated 03/11/2024 16:56 EDT Electronically Signed on 03/13/2024 17:28 EDT Aniket Michael MD Patient Care team information Care Team Personnel Name: Ramiro Landry MD Position: No Access Member Role: Informed Provider Address: [address] Care Team Related Persons Name: SEBAS PAYNE Insurance Providers Guarantor name: JOHNSON PAYNE Health Plan Information #: 1 Payer: [facility] [place]AC[place] HMO Member Number: [id number] Policy Number: HERO Health Plan Information #: 2 Payer: [facility] [place] O Member Number: [id number] Policy Number: HERO Health Plan Information #: 3 Payer: [facility] [place] H[place] Member Number: [id number] Policy Number: NA
--- OUTSIDE RECORDS SUMMARY | 2024-03-26 15:47 | XMS_ITS | Continuity of Care Document ---
Author Organization [facility] Address [address] [place] [address] Care Team Providers Care Bark Tanner Name Role Phone Primeau IPHCRamiro Primary Care Physician Encounter [facility] Date(s): 01/06/24 - 01/06/[address] [phone] Discharge Disposition: Home or Self Care Attending Physician: Joseph Salas MD Admitting Physician: Joseph Salas MD Referring Physician: Joseph Salas MD Allergies, Adverse Reactions, Alerts No Known Medication Allergies Substance Reaction Severity Status lisinopril Cough Severe Active Assessment and Plan Future Appointments Diagnostic Tests Pending * Protein Electrophoresis, Urine [facility] 01/06/24 Immunizations Given and Recorded Vaccine Date Status Refusal Reason SARS-CoV-2 (COVID-19) mRNA-1273 vaccine 10/13/20 R ecorded SARS-CoV-2 (COVID-19) mRNA-1273 vaccine 09/15/20 R ecorded Medications [facility] Prescription 100 EA, USE ONE DAILY DIRECTED, [...] Daily, # 90 tab, 4 Refill(s), Pharmacy: [facility] Start Date: 12/20/22 Stop Date: 03/14/24 Status: Ordered Zetia 10 mg oral tablet 10 mg = 1 tab, Oral, Daily, # 90 tab, 4 Refill(s), Pharmacy: [facility] Start Date: 07/02/22 Status: Ordered Problem [...] grafts arterial Results Laboratory List Name Date Automated Diff 01/06/24 Basic Metabolic Panel 01/06/24 CBC w/ Diff 01/06/24 GGT 01/06/24 Hepatic Function Panel 01/06/24 Lipid Panel 01/06/24 NT- Pro BNP 01/06/24 Protein Electrophoresis, S (SPEP) [facility] Thyroid Stimulating Hormone 01/06/24 Troponin-I 01/06/24 Most recent to oldest [Reference Range]: 1 WBC [5.0-10.0 x10^3/mcL] 5.7 x10^3/mcL (01/06/24 11:35 AM) RBC [4.6-6.0 x10^6/mcL] 4.4 x10^6/mcL *LOW* (01/06/24 11:35 AM) Neutro Auto [40.0-75.0 %] 59.3 % (01/06/24 11:35 AM) Lymph Auto [20.0-50.0 %] 23.5 % (01/06/24 11:35 AM) Charles Auto [2.0-15.0 %] 9.6 % (01/06/24 11:35 AM) Basophil Auto [0.0-1.0 %] 0.5 % (01/06/24 11:35 AM) BUN [7-18 mg/dL] 17 mg/dL (01/06/24 11:35 AM) Cholesterol Total [50-200 mg/dL] 111 mg/ dL (01/06/24 11:35 AM) LDL [0-130 mg/dL] 33 mg/dL (01/06/24 11:35 AM) Glucose Level [74-106 mg/dL] 222 mg/dL *HI* (01/06/24 11:35 AM) Potassium Level [3.5-5.1 mmol/L] 4.7 mmo l/L (01/06/24 11:35 AM) MCV [80.0-96.0 fL] 82.7 fL (01/06/24 11:35 AM) HDL [40-60 mg/dL] 52 mg/dL (01/06/24 11:35 AM) AST [15-37 unit/L] 21 unit/L (01/06/24 11:35 AM) ALT [16-63 unit/L] 28 unit/L (01/06/24 11:35 AM) MCHC [31.0-35.0 g/dL] 32.8 g/dL (01/06/24 11:35 AM) Troponin-I [0.0-76.2 pg/mL] 7.9 pg/mL (01/06/24 11:35 AM) Sodium Level [136-145 mmol/L] 134 mmol/L *LOW* (01/06/24 11:35 AM) Hct [41.0-51.0 %] 36.3 % *LOW* (01/06/24 11:35 AM) Triglycerides [0-150 mg/dL] 131 mg/dL (01/06/24 11:35 AM) Calcium Level [8.5-10.1 mg/dL] 9.3 mg/dL (01/06/24 11:35 AM) Albumin Level [3.4-5.0 g/dL] 3.6 g/dL (01/06/24 11:35 AM) Protein Total [6.4-8.2 g/dL] 7.6 g/dL (01/06/24 11:35 AM) MCH [26.0-32.0 pg] 27.1 pg (01/06/24 11:35 AM) Neutro Absolute 3.4 x10^3/mcL *NA* (01/06/24 11:35 AM) Bilirubin Total [0.2-1.0 mg/dL] 0.4 mg/d L (01/06/24 11:35 AM) Hgb [14.0-18.0 g/dL] 11.9 g/dL *LOW* (01/06/24 11:35 AM) Alk Phos [46-146 unit/L] 61 unit/L (01/06/24 11:35 AM) Bilirubin Direct [0.00-0.20 mg/dL] 0.11 mg/dL (01/06/24 11:35 AM) Platelets [130-450 x10^3/mcL] 148 x10^3/ mcL (01/06/24 11:35 AM) CO2 [21-32 mmol/L] 25 mmol/L (01/06/24 11:35 AM) TSH [0.358-3.740 mcIntlUnit/mL] 3.308 mc IntlUnit/mL (01/06/24 11:35 AM) GGT [15-85 unit/L] 28 unit/L (01/06/24 11:35 AM) eGFR Non-AA [>=60] 58 *LOW* (01/06/24 11:35 AM) eGFR AA [>=60] 58 *LOW* (01/06/24 11:35 AM) NT-proBNP [0-125 pg/mL] 795 pg/mL *HI* (01/06/24 11:35 AM) Chloride Level [98-107 mmol/L] 100 mmol/ L (01/06/24 11:35 AM) RDW-CV [11.5-14.5 %] 16.8 % *HI* (01/06/24 11:35 AM) Imm Gran Auto [0.0-0.9 %] 0.3 % (01/06/24 11:35 AM) Creatinine Level [0.70-1.30 mg/dL] 1.29 mg/dL (01/06/24 11:35 AM) Albumin % [facility] [55.8-66.1 %] 56.1 % *NA* (01/06/24 11:35 AM) Total Protein [facility] [6.3-8.2 g/dL] 7.4 g/d L *NA* (01/06/24 11:35 AM) Alpha-1 % [facility] [2.9-4.9 %] 3.9 % *NA* (01/06/24 11:35 AM) Alpha-2 g/dL [facility] [0.50-1.00 g/dL] 1.00 g /dL *NA* (01/06/24 11:35 AM) Beta % [facility] [8.4-13.1 %] 13.1 % *NA* (01/06/24 11:35 AM) Gamma % [facility] [11.1-18.8 %] 13.2 % *NA* (01/06/24 11:35 AM) SPEP Comment [facility] See Footnote 1 *NA* (01/06/24 11:35 AM) Eos, Auto [1.0-6.0 %] 6.8 % *HI* (01/06/24 11:35 AM) Albumin g/dL [facility] [3.6-5.2 g/dL] 4.2 g/dL *NA* (01/06/24 11:35 AM) Alpha-1 g/dL [facility] [0.15-0.40 g/dL] 0.30 g /dL *NA* (01/06/24 11:35 AM) Alpha-2 % [facility] [7.1-11.8 %] 13.7 % *HI* (01/06/24 11:35 AM) Beta g/dL [facility] [0.60-1.20 g/dL] 1.00 g/dL *NA* (01/06/24 11:35 AM) Gamma g/dL [facility] [0.60-1.60 g/dL] 1.00 g/d L *NA* (01/06/24 11:35 AM) 1Result Comment: RESULT: No apparent monoclonal protein seen on serum electrophoresis See scanned/supplementary report. Test performed [place] [address] Social History Social History Type Response Tobacco Never tobacco user T obacco Use:. Sex Male Patient Care team information Care Team Personnel Name: Ramiro Landry MD Position: No Access Member Role: Informed Provider Address: Address: [address] [address]- Care Team Related Persons Name: ELMER SEBAS E Address: Home [address] [place], [place] [id number]
--- OUTSIDE RECORDS SUMMARY | 2024-03-26 15:47 | XMS_ITS | Continuity of Care Document ---
Author Organization [facility] Address [address] [place] [address] Care Team Providers Care Paver Installer Name Role Phone au [facility] Primary Care Physician Encounter [facility] Date(s): 03/17/24 - 03/17/[address] [address] Encounter Diagnosis Type 2 diabetes mellitus(Discharge Diagnosis) - 03/17/24 Hemorrhagic stroke(Discharge Diagnosis) - 03/17/24 Stroke(Discharge Diagnosis) - 03/17/24 Hypomagnesemia(Discharge Diagnosis) - 03/17/24 Non-ST elevation (NSTEMI) myocardial infarction(Final) - Cerebral infarction, unspecified(Final) - Nontraumatic intracerebral hemorrhage, unspecified(Final) - Heart failure, unspecified(Final) - Atherosclerotic heart disease of [place] coronary artery without angina pectoris (Final) - Hypomagnesemia(Final) - Hypoxemia(Final) - Gastro-esophageal reflux disease without esophagitis(Final) - Essential (primary) hypertension(Final) - Presence of aortocoronary bypass graft(Final) - Type 2 diabetes mellitus without complications(Final) - Hypoxia(Discharge Diagnosis) - 03/17/24 Decompensated heart failure(Discharge Diagnosis) - 03/17/24 NSTEMI (non-ST elevated myocardial infarction)(Discharge Diagnosis) - 03/17/24 Coronary arteriosclerosis(Discharge Diagnosis) - 03/17/24 Gastroesophageal reflux disease(Discharge Diagnosis) - 03/17/24 Hypertensive disorder(Discharge Diagnosis) - 03/17/24 Discharge Disposition: Discharge/Transfer to [facility] as Inpt Attending Physician: Vale Rivera MD Admitting Physician: Vale Rivera MD Allergies, Adverse Reactions, Alerts Substance Criticality Severity Reaction Reaction Severity Status lisinopril High criticality Severe Cough Ac tive Assessment and Plan Extracted from: Title:Discharge Note Author:Davey Edgar PA-C Date:03/17/24 1.??Hypoxia??R09.02 2.??Decompensated heart failure??I50.9 3.??NSTEMI (non-ST elevated myocardial infarction)??I21.4 4.??Hypomagnesemia??E83.42 5.??Coronary arteriosclerosis??I25.10 6.??Gastroesophageal reflux disease??K21.9 7.??Hypertensive disorder??I10 8.??Type 2 diabetes mellitus??E11.9 9.??Stroke??I63.9 10.??Hemorrhagic stroke??I61.9 Orders: Transfer to Another Facility, 03/17/24 19:40:00 EDT Extracted from: Title:ED Provider Note Author:Mendy Sheppard Ma, MD Date:03/17/24 1.??Hypoxia??R09.02 2.??Decompensated heart failure??I50.9 3.??NSTEMI (non-ST elevated myocardial infarction)??I21.4 4.??Hypomagnesemia??E83.42 5.??Coronary arteriosclerosis??I25.10 6.??Gastroesophageal reflux disease??K21.9 7.??Hypertensive disorder??I10 8.??Type 2 diabetes mellitus??E11.9 9.??Stroke??I63.9 10.??Hemorrhagic stroke??I61.9 Orders: Decision to Admit, 03/17/24 15:32:00 EDT, Medical Unit Intake and Output, 03/17/24 11:32:00 EDT, every 1 hr, 03/17/24 11:32:00 EDT Extracted from: Title:H & P Author:Vale Rivera MD Date:03/17/24 1.??Hypoxia??R09.02 ??73-year-old male who presents to the emergency department with shortness of breath. ??The cause of the shortness of breath and hypoxia appears to be secondary to??acute decompensated CHF and pulmonary edema. ??Patient also had a recent cardiac catheterization with found??to have coronary artery disease but not amendable to PCI??at that time. ??Patient also with elevated troponin which is trending upwards likely secondary to demand ischemia from??pulmonary edema. ??Will admit patient as inpatient??due to the severity of his??hypomagnesemia as well as complexity of his NSTEMI, acute decompensated CHF inability to give antiplatelets but recent hemorrhagic stroke.. ??Also [facility] [place] was [place] and patient has been accepted by Dr. Upton.?? Starting Lasix 40 mg IV twice daily. ??Strict intake and output. ??Daily weights.?? Continue O2 supplementation to maintain O2 saturation greater than 92%.?? Patient also with NSTEMI and trending troponin upwards. ??Monitor on telemetry. ??Unfortunately with recent hemorrhagic stroke??heart??are unable to give any further??antiplatelets or anticoagulation??and will need??close monitoring. 2.??Decompensated heart failure??I50.9 ??As above. 3.??NSTEMI (non-ST elevated myocardial infarction)??I21.4 ??As above.?? As above. 4.??Hypomagnesemia??E83.42 ??Hypomagnesemia with magnesium level 1.1. ??Giving 2 g of magnesium sulfate IV??now. ??Continue magnesium oxide 400 mg p.o. daily. ??Continue to monitor. ??Monitor on telemetry. 5.??Coronary arteriosclerosis??I25.10 ??History of coronary artery disease with recent cardiac catheterization with no intervenable pleural lesions. ??Holding antiplatelets for now in light of recent hemorrhagic stroke. ??Continue statin. ??Continue metoprolol. 6.??Gastroesophageal reflux disease??K21.9 ?Continue pantoprazole 40 mg p.o. daily. 7.??Hypertensive disorder??I10 8.??Type 2 diabetes mellitus??E11.9 ??Holding home oral diabetic agents. ??Continue insulin sliding scale, Chemstrips AC plus at bedtime and diabetic diet. 9.??Stroke??I63.9 ??Recent stroke and then converted to hemorrhagic stroke. ??Holding antiplatelets for now in light of hemorrhagic stroke. ??Continue to monitor but stable in this regard for now. 10.??Hemorrhagic stroke??I61.9 ??As above. Orders: acetaminophen, 650 mg = 2 tab, Oral, Tab, every 6 hr, PRN pain, mild, First Dose: 03/17/24 15:53:00 EDT, Routine amLODIPine, 5 mg = 1 tab, Oral, Tab, BID, First Dose: 03/17/24 21:00:00 EDT, Routine atorvastatin, 80 mg = 2 tab, Oral, Tab, Daily, First Dose: 03/17/24 17:00:00 EDT, Routine furosemide, 40 mg = 4 mL, IV Push, Soln-IV, BID for 30 days, First Dose: 03/17/24 17:00:00 EDT, Stop Date: 04/16/24 16:59:00 EDT, Physician Stop, Routine GlucaGen, 1 mg, Intramuscular, Powder-Inj, As Directed, PRN low blood sugar, First Dose: 03/17/24 15:53:00 EDT, Routine Dextrose 50% intravenous solution, 25 mL, IV Push, Soln, As Directed, PRN low blood sugar, First Dose: 03/17/24 15:53:00 EDT, Routine glucose 40% oral gel, 30 g = 75 mL, Oral, Gel, As Directed, PRN low blood sugar, First Dose: 03/17/24 15:53:00 EDT, Routine Dextrose 50% intravenous solution, 50 mL, IV Push, Soln, As Directed, PRN low blood sugar, First Dose: 03/17/24 15:53:00 EDT, Routine glucose 40% oral gel, 15 g = 37.5 mL, Oral, Gel, As Directed, PRN low blood sugar, First Dose: 03/17/24 15:53:00 EDT, Routine insulin lispro (HumaLog) correction- sensitive, Sensitive Scale, Subcutaneous, Soln, QID(ACHS), First Dose: 03/17/24 16:30:00 EDT, Routine lidocaine 1% injectable solution, 1 mg 0.1 mL, Intradermal, Soln, As Directed, PRN other (see comment), First Dose: 03/17/24 15:53:00 EDT, Routine metoprolol tartrate, 100 mg = 4 tab, Oral, Tab, BID, First Dose: 03/17/24 21:00:00 EDT, Routine ondansetron, 4 mg = 2 mL, IV Push, Soln, every 6 hr, PRN nausea/vomiting, First Dose: 03/17/24 15:53:00 EDT, Routine pantoprazole, 40 mg = 1 tab, Oral, Tab-DR, Daily, First Dose: 03/18/24 6:00:00 EDT, Routine potassium chloride, 40 mEq = 2 tab, Oral, Tab-ER, Once, First Dose: 03/17/24 21:00:00 EDT, Stop Date: 03/17/24 21:00:00 EDT, Physician Stop, Routine Normal Saline Flush, 10 mL, IV Push, Soln, every 12 hr (cris), First Dose: 03/17/24 21:00:00 EDT, Routine Sodium Chloride 0.9% 1,000 mL, Total Volume (mL): 1,000, 1,000 mL, Soln-IV, IV, 30 mL/hr, Start Date: 03/17/24 15:53:00 EDT, 75.8 kg, Populate Charting Weight From Order, 1.89, m2 tamsulosin, 0.4 mg = 1 cap, Oral, Cap, every night at bedtime, First Dose: 03/17/24 21:00:00 EDT, Routine Ambulate as Tolerated, 03/17/24 15:53:00 EDT, PRN Basic Metabolic Panel, Blood, Routine, 03/17/24 15:53:00 EDT, every morning, for 3 days, Lab Collect Blood Glucose Monitoring POC, 03/17/24 15:53:00 EDT, QID(ACHS), 03/17/24 16:30:00 EDT Cardiac Monitoring, 03/17/24 15:53:00 EDT, Telemetry CBC w/ Diff, Blood, Routine, 03/17/24 15:53:00 EDT, every morning, for 3 days, Lab Collect Consult to Pharmacy, 03/17/24 15:53:00 EDT, Medication History Consult, PCU General Admission Orders [facility] Diet Order, 03/17/24 15:53:00 EDT, Diabetic, Fluid Permitted: 1500 mL Intake and Output, 03/17/24 15:53:00 EDT, Constant Indicator, every 8 hrs, 03/17/24 15:53:00 EDT Notify Provider of Vital Signs, 03/17/24 15:53:00 EDT, SpO2 < 92% on 2L O2 NC, T > 101.5, HR > 100, HR < 50, SBP greater than 160, SBP less than 90, DBP greater than 90, DBP less than 50, Resp Rate greater than 30, Resp Rate less than 8, Constant Indicator NPO at Midnight, 03/17/24 15:53:00 EDT, Constant Indicator Nursing Task, 03/17/24 15:53:00 EDT, Constant order Nursing Task, 03/17/24 15:53:00 EDT, Constant order Oxygen Therapy, SpO2 goal 90% or greater, PRN, Marely Goodman RN PSO Admit to Inpatient, Semi-Private Telemetry, Inpatient, Vale Rivera MD, 03/17/24 15:41:00 EDT, 03/17/24 15:41:00 EDT, 03/17/24 15:41:00 EDT, 2 midnights or more but less than 96 hrs Resuscitation Status, 03/17/24 15:53:00 EDT, Full Code RT Eval and Treat Protocol, 03/17/24 15:53:00 EDT, Stop date 03/17/24 15:53:00 EDT, Marely Goodman RN Saline Lock Insert, 03/17/24 15:53:00 EDT, Once, Stop date 03/17/24 15:53:00 EDT Sequential Compression Devices (SCD's), 03/17/24 15:53:00 EDT, Constant Order, Intermittent pneumatic compression, 03/17/24 15:53:00 EDT Vital Signs, 03/17/24 15:53:00 EDT, Constant order, every 4 hrs Weight, 03/17/24 15:53:00 EDT, PRN, Admission and Discharge Functional Status 03/17/24 Activity Status ADL Dangle Assistive Device None Pressure Reducing Device for Bed Standar d mattress 03/17/24 Family Member Travel History No recent t ravel Recent Travel History No recent travel Other exposure to Infectious Disease Non e Immunizations Given and Recorded Vaccine Date Status Refusal Reason SARS-CoV-2 (COVID-19) mRNA-1273 vaccine 10/13/20 R ecorded SARS-CoV-2 (COVID-19) mRNA-1273 vaccine 09/15/20 R ecorded Medications [facility] [place] 100 EA, USE ONE DAILY DIRECTED, [...] Daily, # 30 tab, 0 Refill(s), Pharmacy: [id number], 170, cm, 03/13/24 7:10:00 EDT, Height, [...] Daily, # 30 tab, 0 Refill(s), Pharmacy: [id number], 170, cm, 03/13/24 7:10:00 EDT, Height, [...] Daily, # 30 tab, 0 Refill(s), Pharmacy: [facility], 170, cm, 03/13/24 7:10:00 EDT, Height, 75.8, kg, 03/09/24 4:58:00 EDT, Weight Dosing Start Date: 03/13/24 Status: Ordered sodium chloride 1 g oral tablet 2 g = 2 tab, Oral, TID, # 180 tab, 0 Refill(s), Pharmacy: [facility], 170, cm, 03/13/24 7:10:00 EDT, Height, 75.8, kg, 03/09/24 4:58:00 EDT, Weight Dosing Start Date: 03/13/24 Status: Ordered tamsulosin 0.4 mg oral capsule 0.4 mg = 1 cap, Oral, every night at bedtime, # 30 cap, 0 Refill(s), Pharmacy: [facility], 170, cm, 03/13/24 7:10:00 EDT, Height, 75.8, kg, 03/09/24 4:58:00 EDT, Weight Dosing Start Date: 03/13/24 Status: Ordered traMADol 50 mg oral tablet 50 mg = 1 tab, Oral, every 12 hr, PRN as needed for pain, 0 Refill(s) Start Date: 03/09/24 Status: Ordered Zetia 10 mg oral tablet 10 mg = 1 tab, Oral, Daily, # 90 tab, 4 Refill(s), Pharmacy: [id number] Start Date: 07/02/22 Status: Ordered Mental Status 03/17/24 Eye Opening Response Rey Spontaneous ly Best Verbal Response Rey Oriented Best Motor Response Dexter Obeys comman ds Rey Coma Score 15 [...] grafts arterial Results Laboratory List Name Date Troponin-I 03/17/24 Glucose POCT 03/17/24 Glucose POCT 03/17/24 SARS-CoV-2 (COVID-19) RNA (ID Now) 4 Troponin-I 03/17/24 Troponin-I 03/17/24 .Manual Differential ([facility]) 03/17/24 CBC w/ Diff 03/17/24 Comprehensive Metabolic Panel (CMP) Magnesium Level 03/17/24 NT- Pro BNP 03/17/24 Procalcitonin 03/17/24 Most recent to oldest [Reference Range]: 1 2 3 WBC [5.0-10.0 x10^3/mcL] 10.6 x10^3/mcL *HI* (03/17/24 9:30 AM) RBC [4.6-6.0 x10^6/mcL] 3.8 x10^6/mcL *LOW* (03/17/24 9:30 AM) Segs Man [40-75 %] 78 % *HI* (03/17/24 9:30 AM) Lymph Man [20-50 %] 10 % *LOW* (03/17/24 9:30 AM) [place] Man [2-15 %] 10 % (03/17/24 9:30 AM) Eos Man [1-6 %] 1 % (03/17/24 9:30 AM) BUN [7-18 mg/dL] 13 mg/dL (03/17/24 9:30 AM) Glucose POC [74-106 mg/dL] 186 mg/dL *HI* (03/17/24 7:55 PM) 162 mg/dL *HI* (03/17/24 4:29 PM) Glucose Level [74-106 mg/dL] 202 mg/dL *HI* (03/17/24 9: AM) Potassium Level [3.5-5.1 mmol/L] 3.2 mmol/L *LOW* (03/17/24 9:30 AM) MCV [80.0-96.0 fL] 83.8 fL (03/17/24 9:30 AM) RBC Morph Abnormal (03/17/24 9:30 AM) AST [15-37 unit/L] 22 unit/L (03/17/24 9:30 AM) ALT [16-63 unit/L] 30 unit/L (03/17/24 9:30 AM) MCHC [31.0-35.0 g/dL] 33.1 g/dL (03/17/24 9:30 AM) Troponin-I [0.0-76.2 pg/mL] 1190.4 pg/mL 1 *CRIT* (03/17/24 8:00 PM) 671.6 pg/mL 2 *CRIT* (03/17/24 2:14 PM) 358.8 pg/mL 3 *CRIT* (03/17/24 11:55 AM) Sodium Level [136-145 mmol/L] 135 mmol/L *LOW* (03/17/24 9:30 AM) Hct [41.0-51.0 %] 32.0 % *LOW* (03/17/24 9:30 AM) Microcyte Rare (03/17/24 9:30 AM) Hypochromia Rare (03/17/24 9:30 AM) Calcium Level [8.5-10.1 mg/dL] 9.0 mg/dL (03/17/24 9:30 AM) Albumin Level [3.4-5.0 g/dL] 3.0 g/dL *LOW* (03/17/24 9:30 AM) Protein Total [6.4-8.2 g/dL] 7.6 g/dL (03/17/24 9:30 AM) Poik Rare (03/17/24 9:30 AM) MCH [26.0-32.0 pg] 27.7 pg (03/17/24 9:30 AM) Magnesium Level [1.8-2.4 mg/dL] 1.1 mg/dL *LOW* (03/17/2430 AM) Bilirubin Total [0.2-1.0 mg/dL] 0.8 mg/dL (03/17/24 9:30 AM) Hgb [14.0-18.0 g/dL] 10.6 g/dL *LOW* (03/17/24 930 AM) Alk Phos [46-146 unit/L] 115 unit/L (03/17/24 9:30 AM) Band Man [0-5 %] 0 % (03/17/24 9:30 AM) Platelets [130-450 x10^3/mcL] 244 x10^3/ mcL (03/17/24 9:30 AM) CO2 [21-32 mmol/L] 22 mmol/L (03/17/24 9:30 AM) eGFR Non-AA [>=60] 68 (03/17/24 9:30 AM) eGFR AA [>=60] 68 (03/17/24 9:30 AM) NT-proBNP [0-125 pg/mL] 7367 pg/mL *HI* (03/17/24 9:30 AM) Chloride Level [98-107 mmol/L] 98 mmol/L (03/17/24 9:30 AM) Procalcitonin [0.00-0.50 ng/mL] <0.15 ng/mL (03/17/24 9:30 AM) RDW-CV [11.5-14.5 %] 17.6 % *HI* (03/17/24 9:30 AM) Ovalocytes Rare (03/17/24 9:30 AM) Slide Review Man Diff (03/17/24 9:30 AM) Abs Neut Man 8.3 x10^3/mcL *NA* (03/17/24 9:30 AM) Immature Cells 1 *NA* (03/17/24 9:30 AM) Anisocyte Rare (03/17/24 9:30 AM) Creatinine Level [0.70-1.30 mg/dL] 1.13 mg/dL (03/17/24 9:30 AM) SARS-CoV-2 (COVID-19) RNA (I D Now) [Not Detected] Not Detected (03/17/24 3:27 PM) Baso Man [0-1 %] 0 % (03/17/24 9:30 AM) 1Result Comment: Called to and verbally verified by Rubi Figueroa at 03/17/2024 20:44:07 EDT. 2Result Comment: Called to and verbally verified by Erwin Buck at 03/17/2024 14:44:32 EDT_. 3Result Comment: Called to and verbally verified by Ladan Man at 03/17/2024 12:33:57 EDT_. Vital Signs Most recent to oldest [Reference Range]: 1 2 3 Temperature Temporal Artery [36-38 Deg C] 36.5 Deg C (03/17/24 8:01 PM) 36.6 Deg C (03/17/24 4:25 PM) 36.0 Deg C (03/17/24 9:17 AM) Peripheral Pulse Rate [60-100 bpm] 97 bpm (03/17/24 8:01 PM) 102 bpm *HI* (03/17/24 7:59 PM) 79 bpm (03/17/24 4:25 PM) Heart Rate Monitored [60-100 bpm] 75 bpm (03/17/24 4:41 PM) 75 bpm (03/17/24 4:09 PM) 86 bpm (03/17/24 12:43 PM) Respiratory Rate [12-24 br/min] 24 br/min (03/17/24 8:01 PM) 20 br/min (03/17/24 4:41 PM) 27 br/min *HI* (03/17/24 12:43 PM) Blood Pressure [90-140/60-90 mmHg] 126/83mmHg (03/17/24 4:25 PM) 100/70mmHg (03/17/24 12:30 PM) 115/72mmHg (03/17/24 12:00 PM) Mean Arterial Pressure, Cuff [65-140 mmHg] 80 mmHg (03/17/24 12:30 PM) 86 mmHg (03/17/24 12:00 PM) 83 mmHg (03/17/24 11:30 AM) Mean Arterial Pressure Cuff 97 mmHg (03/17/24 4:25 PM) Blood Pressure Invasive [90-140/60-90 mmHg] 138/79mmHg (03/17/24 8:01 PM) Mean Arterial Pressure Invasive 99 mmHg (03/17/24 8:01 PM) Weight Estimated 73 kg (03/17/24 9:17 AM) Body Mass Index Estimated 25.26 kg/m2 (03/17/24 9:17 AM) Height/Length Estimated 170 cm (03/17/24 9:17 AM) Social History Social History Type Response Tobacco Never tobacco user T obacco Use:. Sex Male Sex Representation Male (finding) EKG study * Event Display: Telemetry Strips Please click on link to view image. Pharmacology Progress note * Katerine Roman PharmD: PERFORM Event Display: Pharmacy Progress Note Authored Date: [id number] Pharmacy Progress Note Patient was just discharged 03/13/2024; spoke with patient and his . They stated there has been no medication changes since discharge. They provided me with a list of medications that were taken this morning prior to arrival and these have been documented in the patients medication history. He took this morning: -amlodipine -aspirin -furosemide -metformin -metoprolol tartrate -pantoprazole -entresto -sodium chloride tablets ADRIEN pharmJuan Miguel Electronically Signed on 03/17/2024 10:54 EDT Katerine Roman PharmD Respiratory therapy Hospital Progress note * Lindsey Saucedo FISHING [employer] TECHNICIAN [employer]: PERFORM Event Display: Respiratory Therapy Progress Note Authored Date: [id number] 1945: Receive pt awake and alert in bed, pt has visitors bedside. Pt on 2L NC (RA baseline) SPO2 95%, HR 85, RR 20 equal and nonlabored. BBS clear. Pt has dry nonproductive cough. Pt states he feels SOB. Pt denies any needs and is in no acute resp distress at this time. Pt to D/C [place] [facility] [place] further care very soon. Electronically Signed on 03/17/2024 21:46 EDT Lindsey Saucedo FISHING [employer]OL TECHNICIAN [employer] * Sujatha Blackwell FISHING TOOL TECHNICIAN [employer]: PERFORM, MODIFY Event Display: Respiratory Therapy Progress Note Authored Date: [id number] ??BURTON PAYNE 73 Years MEASURED Body Mass Index: 27.06 kg/m2 (06/25/23 11:06:00) BSA Measured: 1.92 m2 (06/25/23 11:06:00) Height: 170 cm (03/13/24 07:09:44) Weight: 73 kg (03/13/24 07:09:44) DOSING Weight Dosin.8 kg (03/09/24 04:53:00) Respiratory Shift Summary Breath Sounds: crackles bases Patient alert and oriented on 2 liter nasal cannula. Wean oxygen as tolerated Respiratory Protocol??Aerosol Therapy Assessment and Scoring Home Medication Routine: Lung History (1) Smoking history less than 1 pack/day, History of lung disease(Asthma) Breath Sounds (1) Clear to slightly diminished or crackles in bases Respiratory Rate (0) Less than or equal to 18 Modified Mak Scale or Observed Dyspnea (0) None Oxygen Therapy (1) 1-2 L/min Home Respiratory Medications (0) None Inhaler Use Assessment ? Clinically Stable? Yes? Can take a slow deep breath on command? Yes? Can perform a 3 second breath hold? Yes Respiratory total Score: 3 Respiratory Guidelines 3-4 pts - Q6 PRN for SOB Electronically Signed on 03/17/2024 16:58 EDT Sujatha Blackwell FISHING TOOL TECHNICIAN [employer] Physician Emergency department Note * Mendy Sheppard MD: PERFORM Event Display: ED Note Physician Authored Date: [id number] BURTON PAYNE :1950 Age:73 years Sex:Male Visit Date:03/17/2024 Primary Care Physician: Ramiro Landry MD Basic Information Time Seen: Mendy Sheppard MD / 03/17/2024 09:13 Chief Complaint SOB, chest tightness History Of Present Illness: 73-year-old male with a past medical history of coronary artery disease status post CABG with recent cardiac catheterization couple weeks prior and stroke while in hospital with hemorrhagic conversion d/ender Mar 13, GERD, hypertension, type 2 diabetes mellitus, hyperlipidemia, who presents to the emergency department with a chief complaint of sob, cough, and low oxygen.??Pt also c/o chest pain overnight.?? The patient is A&Ox3, his is at beside and provides collateral information.?? The patient went home on 03/13 feeling well. Because of hemorrhagic stroke pt's plavix has??been held. Plan was to restart it this week after a repeat CT if no changes seen. Per his pt developed cough and sob last night, and this morning she checked his Sat and found it to be in the 70ies. He has had LE swelling while in the hospital but they think it is slightly down now.??Denies any fevers or chills, no current??chest pain, abdominal pain, nausea, vomiting, diarrhea, lightness or dizziness.?? Physical Exam Vitals & Measurements T:??36.6?C ??(Temporal Artery)?? HR:??75??(Monitored)?? RR:??20?? BP:??126/83?? SpO2:??92%?? HT:??170??cm?? WT:??73??kg??(Estimated)?? BMI:??25.26?? Pain Score:??0?? O2 Flow Rate:??2?? O2 Therapy:??Nasal cannula?? General: A&Ox3, Calm, no apparent distress, well [...] 4 extremities, sensation intact?? Medical Decision Makin-year-old male with a past medical history of coronary artery disease status post CABG with recent cardiac catheterization couple weeks prior and stroke while in hospital with hemorrhagic conversion d/ender Mar 13, GERD, hypertension, type 2 diabetes mellitus, hyperlipidemia, who presents to the emergency department with a chief complaint of sob, cough, and low oxygen. Pt also with CP overnight.? Thorough chart review performed, nursing triage note reviewed, vitals reviewed ?? The patient is well and non toxic appearing with reassuring VS while on 2L n/c ?? Labs reviewed and interpreted independently: Mild leukocytosis at 10.3, Hgb 10.6??at baseline, No electrolyte abnormality on comprehensive metabolic panel. Renal function at baseline. Troponin trending up 215 -> 358 - > 671. ?? Imaging reviewed and interpreted independently: Pulmonary edema ?? -------- Eval:??concern for pulmonary edema, likely in the setting of new heart failure. Evidence of NSTEMI??with known CAD, will hold off on AC due to recent hemorragic stroke. Will reach out to cards at [facility].? Discussed with Huber SCRAPER MEAT for cardiology at [facility]. She recommended further diuresis, continue to hold AC for now. They have accepted the patient for transfer tomorrow. Dr Thomas??accepting Dr.? Discussed with Dr Mckeon from the hospitalist service for admission until transfer tomorrow.? Procedure No Qualifying Data Assessment/Plan 1.??Hypoxia??R09.02 2.??Decompensated heart failure??I50.9 3.??NSTEMI (non-ST elevated myocardial infarction)??I21.4 4.??Hypomagnesemia??E83.42 5.??Coronary arteriosclerosis??I25.10 6.??Gastroesophageal reflux disease??K21.9 7.??Hypertensive disorder??I10 8.??Type 2 diabetes mellitus??E11.9 9.??Stroke??I63.9 10.??Hemorrhagic stroke??I61.9 Orders: Decision to Admit, 03/17/24 15:32:00 EDT, Medical Unit Intake and Output, 03/17/24 11:32:00 EDT, every 1 hr, 03/17/24 11:32:00 EDT Medication Reconciliation Changed sodium chloride (sodium chloride 1 g oral tablet)2 tab Oral (given by mouth) 3 times a day. Refills: 0. ?? Unchanged acetaminophen (acetaminophen 500 mg oral tablet)2 tab Oral (given by mouth) every 6 hours as neededother (see comment). as needed. ?? amLODIPine (amLODIPine 5 mg oral tablet)1 tab Oral (given by mouth) 2 times a day. 180 EA, TAKE ONETABLET BY MOUTH TWICE A DAY. ?? aspirin (aspirin 81 mg oral tablet, chewable)1 tab Chewed every day for 30 Days. Refills: 0. ?? ezetimibe (Zetia 10 mg oral tablet)1 tab Oral (given by mouth) every day. Refills: 4. ?? furosemide (furosemide 40 mg oral tablet)1 tab Oral (given by mouth) every day. Refills: 0. ?? glipiZIDE (glipiZIDE 10 mg oral tablet, extended release)2 tab Oral (given by mouth) every day. 180EA, TAKE TWO TABLETS BY MOUTH EVERY DAY. ?? ketoconazole topical (ketoconazole 2% topical cream)1 Application Topical (on the skin) every day. ?? metFORMIN (metFORMIN 1000 mg oral tablet)1 [...] needed for chest pain. ?? Other Prescription [place] [place]100 EA, USE ONE DAILY DIRECTED. ?? pantoprazole (pantoprazole 40 mg oral delayed release tablet)1 tab Oral (given by mouth) every day. ?? rosuvastatin (rosuvastatin 40 mg oral tablet)1 tab Oral (given by mouth) every day. Refills: 0. ?? sacubitril-valsartan (Entresto 24 mg-26 mg oral tablet)1 tab Oral (given by mouth) 2 times a day. Refills: 11. ?? tamsulosin (tamsulosin 0.4 mg oral capsule)1 Capsules Oral (given by mouth) every night at bedtime.Refills: 0. ?? traMADol (traMADol 50 mg oral tablet)1 tab Oral (given by mouth) every 12 hours as needed as neededfor pain. Problem List/Past Medical History Ongoing Bilateral knee pain Coronary arteriosclerosis Degenerative arthritis of knee, bilateral Gastroesophageal reflux disease Hyperlipidemia Hypertensive disorder Knee pain Myocardial infarction Type 2 diabetes mellitus Historical No qualifying data Procedure/Surgical History ???Colonoscopy (05/24/2021)???Coronary artery bypass graft (06/13/2020)???Transcatheter aortic valve replacement (06/13/2020)???Diagnostic right heart - Cardiac catheterization (06/03/2020)???Cardiaccatheterization with Stent placement (10/13/1997) Medication Administration Given atorvastatin, 80 mg, Oral Lasix, 40 mg, IV Push magnesium sulfate, 1 g, IV Piggyback magnesium sulfate, 1 g, IV Piggyback potassium chloride, 40 mEq, Oral Allergies lisinopril??(Cough) No Known Medication Allergies Social History Alcohol Never Electronic Cigarette/Vaping Electronic Cigarette Use: Never. Substance Use Never Tobacco Never tobacco user Tobacco Use:. Family History Cerebrovascular accident: Father. [place] - myocardial infarction: Father. Lab Results Routine Chemistry?? LATEST RESULTS?? HISTORICAL RESULTS?? Glucose POC?? 03/17/24 16:29?? 162 ??High?? 03/13/24?? 196 ??High? Electronically Signed on 03/17/2024 17:12 EDT Mendy Sheppard MD History and physical note * Vale Rivera MD: PERFORM Event Display: History and Physical Authored Date: [id number] BURTON PAYNE :1950 Age:73 years Sex:Male Visit Date:03/17/2024 Primary Care Physician: Quinn [facility], Ramiro Noe MD Chief Complaint I was just discharged from here and I have been in and out of the ER. I ??have been SOB and chest pain since I left. PT arrives 87% on RA on arrival pt placed on oxygen EKG obtained. History of Present Illness The patient is a 73-year-old male with a past medical history of coronary artery disease status post CABG, recent cardiac catheterization and stroke while in the hospital, GERD, hypertension, type 2 diabetes mellitus, hyperlipidemia who presented to the emergency department with a chief complaint of shortness of breath.?? The patient states that he has been having worsening shortness of breath since last night.?? He was also hypoxic at home with O2 saturation of 70%.?? Also cough is present is not but nonproductive of sputum.?? Patient denies any fevers or chills, chest pain, abdominal pain, nausea, vomiting, diarrhea, lightheadedness or dizziness.?? In the emergency department he was 87% on room air and tachypneic otherwise normal vital signs.?? Labs significant for elevated troponin of 215.2 then 358 then 671.?? proBNP elevated at 7367, procalcitonin less than 0.15, magnesium level of1.1, sodium 135, potassium 3.2, WBC count of 10.6, hemoglobin 10.6, platelet count 244.?? Chest x-ray consistent with shifting multifocal bilateral airspace disease. Review of Systems Constitutional:?No??fevers,?No??chills,?No??sweats Eye:?No??recent visual problems ENT:?No??ear pain,?No??nasal congestion,?No??sore throat Respiratory:?Positive for??shortness of breath,?Positive for??cough Cardiovascular:?No??Chest pain,?No??palpitations,?No??syncope Gastrointestinal:?Nonausea,?No??vomiting,?No??diarrhea Genitourinary:?No??hematuria?? Christo/Lymph:?No??bruising tendency,?No??swollen lymph glands Endocrine:?No??excessive thirst,??No??excessive hunger Musculoskeletal:??No??back pain,??No??neck pain,??No??joint pain,??No??muscle pain,??No??decreased range of motion Integumentary:?No??rash,?No??pruritus,?No??abrasions Neurologic:??Alert & oriented X 4 Psychiatric:?No??anxiety,?No??depression Physical Exam Vitals & Measurements T:??36.0?C ??(Temporal Artery)?? HR:??85??(Peripheral)?? HR:??86??(Monitored)?? RR:??27?? BP:??100/70?? SpO2:??92%?? HT:??170??cm?? WT:??73??kg??(Estimated)?? BMI:??25.26?? Pain Score:??5?? O2 Flow Rate:??2?? O2 Therapy:??Nasal cannula?? General:??Alert and oriented, well nourished,?Mild??acute distress Eye:??PERRL, EOMI,?Normal?conjunctiva HENT:??Normocephalic,??Normal?hearing, moist oral mucosa,?No??scleral icterus,?No??sinustenderness Neck:??Supple, non-tender,?No??JVD,?No??lymphadenopathy Lungs:??crackles bilaterally,?Labored?respiration Heart:?Normal?rate,?Regular??rhythm,?No??murmur,?No??gallop,?No??edema Abdomen:??Soft, non-tender, non-distended,?Normal?bowel sounds,?No??masses Musculoskeletal:?Normal?range of motion and strength,?No??tenderness,?No??swelling Skin:??Skin is warm, dry and pink,?No??rashes,?No??lesions Neurologic:??Awake, alert and oriented X4, CN II-XII grossly??intact Psychiatric:??Cooperative, appropriate mood and affect Assessment/Plan 1.??Hypoxia??R09.02 ??73-year-old male who presents to the emergency department with shortness of breath. ??The cause of the shortness of breath and hypoxia appears to be secondary to??acute decompensated CHF and pulmonary edema. ??Patient also had a recent cardiac catheterization with found??to have coronary artery disease but not amendable to PCI??at that time. ??Patient also with elevated troponin which is trending upwards likely secondary to demand ischemia from??pulmonary edema. ??Will admit patient as inpatient??due to the severity of his??hypomagnesemia as well as complexity of his NSTEMI, acute decompensated CHF inability to give antiplatelets but recent hemorrhagic stroke.. ??Also [facility] [place] and patient has been accepted by Dr. Upton.?? Starting Lasix 40 mg IV twice daily. ??Strict intake and output. ??Daily weights.?? Continue O2 supplementation to maintain O2 saturation greater than 92%.?? Patient also with NSTEMI and trending troponin upwards. ??Monitor on telemetry. ??Unfortunately with recent hemorrhagic stroke??heart??are unable to give any further??antiplatelets or anticoagulation??and will need??close monitoring. 2.??Decompensated heart failure??I50.9 ??As above. 3.??NSTEMI (non-ST elevated myocardial infarction)??I21.4 ??As above.?? As above. 4.??Hypomagnesemia??E83.42 ??Hypomagnesemia with magnesium level 1.1. ??Giving 2 g of magnesium sulfate IV??now. ??Continue magnesium oxide 400 mg p.o. daily. ??Continue to monitor. ??Monitor on telemetry. 5.??Coronary arteriosclerosis??I25.10 ??History of coronary artery disease with recent cardiac catheterization with no intervenable pleural lesions. ??Holding antiplatelets for now in light of recent hemorrhagic stroke. ??Continue statin. ??Continue metoprolol. 6.??Gastroesophageal reflux disease??K21.9 ?Continue pantoprazole 40 mg p.o. daily. 7.??Hypertensive disorder??I10 8.??Type 2 diabetes mellitus??E11.9 ??Holding home oral diabetic agents. ??Continue insulin sliding scale, Chemstrips AC plus at bedtime and diabetic diet. 9.??Stroke??I63.9 ??Recent stroke and then converted to hemorrhagic stroke. ??Holding antiplatelets for now in light of hemorrhagic stroke. ??Continue to monitor but stable in this regard for now. 10.??Hemorrhagic stroke??I61.9 ??As above. Orders: acetaminophen, 650 mg = 2 tab, Oral, Tab, every 6 hr, PRN pain, mild, First Dose: 03/17/24 15:53:00EDT, Routine amLODIPine, 5 mg = 1 tab, Oral, Tab, BID, First Dose: 03/17/24 21:00:00 EDT, Routine atorvastatin, 80 mg = 2 tab, Oral, Tab, Daily, First Dose: 03/17/24 17:00:00 EDT, Routine furosemide, 40 mg = 4 mL, IV Push, Soln-IV, BID for 30 days, First Dose: 03/17/24 17:00:00 EDT, Stop Date: 04/16/24 16:59:00 EDT, Physician Stop, Routine GlucaGen, 1 mg, Intramuscular, Powder-Inj, As Directed, PRN low blood sugar, First Dose: 03/17/24 15:53:00 EDT, Routine Dextrose 50% intravenous solution, 25 mL, IV Push, Soln, As Directed, PRN low blood sugar, First Dose: 03/17/24 15:53:00 EDT, Routine glucose 40% oral gel, 30 g = 75 mL, Oral, Gel, As Directed, PRN low blood sugar, First Dose: 03/17/24 15:53:00 EDT, Routine Dextrose 50% intravenous solution, 50 mL, IV Push, Soln, As Directed, PRN low blood sugar, First Dose: 03/17/24 15:53:00 EDT, Routine glucose 40% oral gel, 15 g = 37.5 mL, Oral, Gel, As Directed, PRN low blood sugar, First Dose: 03/17/24 15:53:00 EDT, Routine insulin lispro (HumaLog) correction- sensitive, Sensitive Scale, Subcutaneous, Soln, QID(ACHS), First Dose: 03/17/24 16:30:00 EDT, Routine lidocaine 1% injectable solution, 1 mg 0.1 mL, Intradermal, Soln, As Directed, PRN other (see comment), First Dose: 03/17/24 15:53:00 EDT, Routine metoprolol tartrate, 100 mg = 4 tab, Oral, Tab, BID, First Dose: 03/17/24 21:00:00 EDT, Routine ondansetron, 4 mg = 2 mL, IV Push, Soln, every 6 hr, PRN nausea/vomiting, First Dose: 03/17/24 15:53:00 EDT, Routine pantoprazole, 40 mg = 1 tab, Oral, Tab-DR, Daily, First Dose: 03/18/24 6:00:00 EDT, Routine potassium chloride, 40 mEq = 2 tab, Oral, Tab-ER, Once, First Dose: 03/17/24 21:00:00 EDT, Stop Date: 03/17/24 21:00:00 EDT, Physician Stop, Routine Normal Saline Flush, 10 mL, IV Push, Soln, every 12 hr (cris), First Dose: 03/17/24 21:00:00 EDT, Routine Sodium Chloride 0.9% 1,000 mL, Total Volume (mL): 1,000, 1,000 mL, Soln-IV, IV, 30 mL/hr, Start Date: 03/17/24 15:53:00 EDT, 75.8 kg, Populate Charting Weight From Order, 1.89, m2 tamsulosin, 0.4 mg = 1 cap, Oral, Cap, every night at bedtime, First Dose: 03/17/24 21:00:00 EDT, Routine Ambulate as Tolerated, 03/17/24 15:53:00 EDT, PRN Basic Metabolic Panel, Blood, Routine, 03/17/24 15:53:00 EDT, every morning, for 3 days, Lab Collect Blood Glucose Monitoring POC, 03/17/24 15:53:00 EDT, QID(ACHS), 03/17/24 16:30:00 EDT Cardiac Monitoring, 03/17/24 15:53:00 EDT, Telemetry CBC w/ Diff, Blood, Routine, 03/17/24 15:53:00 EDT, every morning, for 3 days, Lab Collect Consult to Pharmacy, 03/17/24 15:53:00 EDT, Medication History Consult, PCU General Admission Orders NCTY Diet Order, 03/17/24 15:53:00 EDT, Diabetic, Fluid Permitted: 1500 mL Intake and Output, 03/17/24 15:53:00 EDT, Constant Indicator, every 8 hrs, 03/17/24 15:53:00 EDT Notify Provider of Vital Signs, 03/17/24 15:53:00 EDT, SpO2 < 92% on 2L O2 NC, T > 101.5, HR > 100, HR < 50, SBP greater than 160, SBP less than 90, DBP greater than 90, DBP less than 50,Resp Rate greater than 30, Resp Rate less than 8, Constant Indicator NPO at Midnight, 03/17/24 15:53:00 EDT, Constant Indicator Nursing Task, 03/17/24 15:53:00 EDT, Constant order Nursing Task, 03/17/24 15:53:00 EDT, Constant order Oxygen Therapy, SpO2 goal 90% or greater, PRN, Marely Goodman RN PSO Admit to Inpatient, Semi-Private Telemetry, Inpatient, Vale Rivera MD, 03/17/24 15:41:00 EDT, 03/17/24 15:41:00 EDT, 03/17/24 15:41:00 EDT, 2 midnights or more but less than 96 hrs Resuscitation Status, 03/17/24 15:53:00 EDT, Full Code RT Eval and Treat Protocol, 03/17/24 15:53:00 EDT, Stop date 03/17/24 15:53:00 EDT, Bernardo Goodman RN Saline Lock Insert, 03/17/24 15:53:00 EDT, Once, Stop date 03/17/24 15:53:00 EDT Sequential Compression Devices (SCD's), 03/17/24 15:53:00 EDT, Constant Order, Intermittent pneumatic compression, 03/17/24 15:53:00 EDT Vital Signs, 03/17/24 15:53:00 EDT, Constant order, every 4 hrs Weight, 03/17/24 15:53:00 EDT, PRN, Admission and Discharge Problem List/Past [...] 2 tab, Oral, every 6 hr, PRN amLODIPine, 5 mg= 1 tab, Oral, BID atorvastatin, 80 mg= 2 tab, Oral, Daily Dextrose 50% intravenous solution, 25 mL, IV Push, As Directed, PRN Dextrose 50% intravenous solution, 50 mL, IV Push, As Directed, PRN furosemide, 40 mg= 4 mL, IV Push, BID GlucaGen, 1 mg, Intramuscular, As Directed, PRN glucose 40% oral gel, 15 g= 37.5 mL, Oral, As Directed, PRN glucose 40% oral gel, 30 g= 75 mL, Oral, As Directed, PRN insulin lispro (HumaLog) correction- sensitive, Sensitive Scale, Subcutaneous, QID(ACHS) lidocaine 1% injectable solution, 1 mg= 0.1 mL, Intradermal, As Directed, PRN metoprolol tartrate, 100 mg= 4 tab, Oral, BID Normal Saline Flush, 10 mL, IV Push, every 12 hr (cris) ondansetron, 4 mg= 2 mL, IV Push, every 6 hr, PRN pantoprazole, 40 mg= 1 tab, Oral, Daily potassium chloride, 40 mEq= 2 tab, Oral, Once Sodium Chloride 0.9% 1,000 mL, 1000 mL, IV tamsulosin, 0.4 mg= 1 cap, Oral, every night at bedtime Home AAA - Misc Prescription acetaminophen 500 mg oral tablet, 1000 mg= 2 tab, Oral, every 6 hr, PRN amLODIPine 5 mg oral tablet, 5 mg= 1 tab, Oral, BID aspirin 81 mg oral tablet, chewable, 81 mg= 1 tab, Chewed, Daily Entresto 24 mg-26 mg oral tablet, 1 tab, Oral, BID, 11 refills furosemide 40 mg oral tablet, 40 mg= 1 tab, Oral, Daily glipiZIDE 10 mg oral tablet, extended release, 20 mg= 2 tab, Oral, Daily ketoconazole 2% topical cream, 1 lizet, Topical, Daily metFORMIN 1000 mg oral tablet, 1000 mg= 1 tab, Oral, BID Metoprolol Tartrate 100 mg oral tablet, 100 mg= 1 tab, Oral, BID multivitamin adult, oral tablet, 1 tab, Oral, Daily nitroglycerin 0.4 mg sublingual tablet, 0.4 mg= 1 tab, Sublingual, every 5 min, PRN pantoprazole 40 mg oral delayed release tablet, 40 mg= 1 tab, Oral, Daily rosuvastatin 40 mg oral tablet, 40 mg= 1 tab, Oral, Daily sodium chloride 1 g oral tablet, 2 g= 2 tab, Oral, TID tamsulosin 0.4 mg oral capsule, 0.4 mg= 1 cap, Oral, every night at bedtime traMADol 50 mg oral tablet, 50 mg= 1 tab, Oral, every 12 hr, PRN Zetia 10 mg oral tablet, 10 mg= 1 tab, Oral, Daily, 4 refills Allergies lisinopril??(Cough) No Known Medication Allergies Social History Alcohol Never Electronic Cigarette/Vaping Electronic Cigarette Use: Never. Substance Use Never Tobacco Never tobacco user Tobacco Use:. Family History Cerebrovascular accident: Father. [place] - myocardial infarction: Father. Immunizations Vaccine Date Status SARS-CoV-2 (COVID-19) mRNA-1273 vaccine 10/13/2020 Recorded SARS-CoV-2 (COVID-19) mRNA-1273 vaccine 09/15/2020 Recorded Lab Results Test Name Test Result Date/Time WBC 10.6 x10^3/mcL 03/17/2024 09:30 EDT RBC 3.8 x10^6/mcL 03/17/2024 09:30 EDT Hgb 10.6 g/dL 03/17/2024 09:30 EDT Hct 32.0 % 03/17/2024 09:30 EDT MCV 83.8 fL 03/17/2024 09:30 EDT MCH 27.7 pg 03/17/2024 09:30 EDT MCHC 33.1 g/dL 03/17/2024 09:30 EDT RDW-CV 17.6 % 03/17/2024 09:30 EDT Platelets 244 x10^3/mcL 03/17/2024 09:30 EDT Segs Man 78 % 03/17/2024 09:30 EDT Lymph Man 10 % 03/17/2024 09:30 EDT Aurora Man 10 % 03/17/2024 09:30 EDT Eos Man 1 % 03/17/2024 09:30 EDT Baso Man 0 % 03/17/2024 09:30 EDT Band Man 0 % 03/17/2024 09:30 EDT Abs Neut Man 8.3 x10^3/mcL 03/17/2024 09:30 EDT RBC Morph Abnormal 03/17/2024 09:30 EDT Anisocyte Rare 03/17/2024 09:30 EDT Hypochromia Rare 03/17/2024 09:30 EDT Immature Cells 1 03/17/2024 09:30 EDT Microcyte Rare 03/17/2024 09:30 EDT Ovalocytes Rare 03/17/2024 09:30 EDT Poik Rare 03/17/2024 09:30 EDT Slide Review Man Diff 03/17/2024 09:30 EDT Sodium Level 135 mmol/L 03/17/2024 09:30 EDT Potassium Level 3.2 mmol/L 03/17/2024 09:30 EDT Chloride Level 98 mmol/L 03/17/2024 09:30 EDT CO2 22 mmol/L 03/17/2024 09:30 EDT Alk Phos 115 unit/L 03/17/2024 09:30 EDT AST 22 unit/L 03/17/2024 09:30 EDT ALT 30 unit/L 03/17/2024 09:30 EDT BUN 13 mg/dL 03/17/2024 09:30 EDT Glucose Level 202 mg/dL 03/17/2024 09:30 EDT Creatinine Level 1.13 mg/dL 03/17/2024 09:30 EDT eGFR AA 68 03/17/2024 09:30 EDT eGFR Non-AA 68 03/17/2024 09:30 EDT Calcium Level 9.0 mg/dL 03/17/2024 09:30 EDT Protein Total 7.6 g/dL 03/17/2024 09:30 EDT Albumin Level 3.0 g/dL 03/17/2024 09:30 EDT Bilirubin Total 0.8 mg/dL 03/17/2024 09:30 EDT Magnesium Level 1.1 mg/dL 03/17/2024 09:30 EDT Troponin-I 671.6 pg/mL 03/17/2024 14:14 EDT Troponin-I 358.8 pg/mL 03/17/2024 11:55 EDT Troponin-I 215.2 pg/mL 03/17/2024 09:30 EDT NT-proBNP 7367 pg/mL 03/17/2024 09:30 EDT Procalcitonin <0.15 ng/mL 03/17/2024 09:30 EDT SARS-CoV-2 (COVID-19) RNA (ID Now) Not Detected 03/17/2024 15:27 EDT Electronically Signed on 03/17/2024 16:06 EDT Vale Rivera MD Discharge summary * Davey Edgar PA-C: PERFORM Event Display: Discharge Summary Authored Date: [id number] BURTON PAYNE :1950 Age:73 years Sex:Male Visit Date:03/17/2024 Primary Care Physician: Quinn LIMON, Ramiro Noe MD Hospital Course This is a 73-year-old male patient past medical history significant for brought limited to coronaryartery disease status post CABG, recent cardiac catheterization??and stroke while in the hospital, GERD, hypertension, type 2 diabetes mellitus, hyperlipidemia who presented to the emergency departmen t??today??on 03/17/2024??with chief complaints of shortness of breath. ??The patient had reported that he had been having worsening shortness of breath since the night prior.??He had reported he was hypoxic at home with oxygen saturations in the 70s.Reported he also had an associated cough however this was not productive of sputum. ??Patient denied fever, chills, chest pain, abdominal pain, nausea,vomiting, diarrhea, lightheadedness, or dizziness. ?? In the emergency department he was found to be 87% on room air and also tachypneic but otherwise normal??vital signs.??Lab work in the emergency department was significant for elevated troponin of 215.2 which then elevated to 350 and then 671. ??proBNP elevated??at 7367, procalcitonin undetectable, magnesium level 1.1, sodium 135, potassium 3.2, white blood cell count 10.6, hemoglobin 10.6, platelet count 244. ??Chest x-ray was performed as read by radiologist found??shifting multifocal bilateral airspace disease. ?? The cause of his shortness of breath and hypoxia appeared to be secondary to acute decompensated CHF and pulmonary edema.??Patient also had an elevated troponin which was trending upwards and likely secondary to demand ischemia from pulmonary edema??and??patient was??admitted as an inpatient due toseverity of his hypomagnesemia as well as complexity of his NSTEMI, acute decompensated??CHF??and??inability to give antiplatelets with recent hemorrhagic stroke.??[facility] [place] was called and was accepted by Dr. Upton and has been on the medical floor??while awaiting bed placement.Patient wasinitiated on Lasix 40 mg IV twice daily??and oxygen supplementation was continued to maintain oxygen saturations of greater than 92%.As patient had a recent hemorrhagic stroke??was unable to give anyfurther antiplatelets or anticoagulation.??Patient's magnesium levels??were repleted with 2 g of mag nesium sulfate IV??and??he was also continued on magnesium oxide 400 mg p.o.??daily. ?? Patient will be transported to [facility]??for further cardiac??workup under the care of Dr. Upton which is greatly??appreciated. ??Patient will be transported by ambulance.??Following discharge??from [facility] patient should follow-up with his primary care provider in 1 to 2 weeks. ?? Greater than 30 minutes was spent on the day of discharge in coordinating care and arranging outpatient follow-up. Physical Exam Vitals & Measurements T:??36.6?C ??(Temporal Artery)?? TMIN:??36.0?C ??(Temporal Artery)?? TMAX:??36.6?C ??(Temporal Artery)?? HR:??75??(Monitored)?? RR:??20?? BP:??126/83?? SpO2:??92%?? HT:??170??cm?? WT:??73??kg??(Estimated)?? BMI:??25.26?? Pain Score:??0?? O2 Flow Rate:??2?? O2 Therapy:??Nasal cannula?? Procedure/Surgical History ???Colonoscopy (05/24/2021)???Coronary artery bypass graft (06/13/2020)???Transcatheter aortic valve replacement (06/13/2020)???Diagnostic right heart - Cardiac catheterization (06/03/2020)???Cardiaccatheterization with Stent placement (10/13/1997) Social History Alcohol Never Electronic Cigarette/Vaping Electronic Cigarette Use: Never. Substance Use Never Tobacco Never tobacco user Tobacco Use:. Lab Results Last 24 Hours?? Chemistry ? Event Name?? Event Result?? Date/Time?? Sodium Level 135 mmol/L??Low 03/17/24 09:30:00 Potassium Level 3.2 mmol/L??Low 03/17/24 09:30:00 Chloride Level 98 mmol/L 03/17/24 09:30:00 CO2 22 mmol/L 03/17/24 09:30:00 Alk Phos 115 unit/L 03/17/24 09:30:00 AST 22 unit/L 03/17/24 09:30:00 ALT 30 unit/L 03/17/24 09:30:00 BUN 13 mg/dL 03/17/24 09:30:00 Glucose Level 202 mg/dL??High 03/17/24 09:30:00 Creatinine Level 1.13 mg/dL 03/17/24 09:30:00 eGFR AA 68 03/17/24 09:30:00 eGFR Non-AA 68 03/17/24 09:30:00 Calcium Level 9 mg/dL 03/17/24 09:30:00 Protein Total 7.6 g/dL 03/17/24 09:30:00 Albumin Level 3 g/dL??Low 03/17/24 09:30:00 Bilirubin Total 0.8 mg/dL 03/17/24 09:30:00 Magnesium Level 1.1 mg/dL??Low 03/17/24 09:30:00 Glucose POC 162 mg/dL??High 03/17/24 16:29:00 Troponin-I 671.6 pg/mL??Critical 03/17/24 14:14:55 NT-proBNP 7367 pg/mL??High 03/17/24 09:30:00 Procalcitonin <0.15 03/17/24 09:30:00 ? Hematology ? Event Name?? Event Result?? Date/Time?? WBC 10.6 x10^3/mcL??High 03/17/24 09:30:00 RBC 3.8 x10^6/mcL??Low 03/17/24 09:30:00 Hgb 10.6 g/dL??Low 03/17/24 09:30:00 Hct 32 %??Low 03/17/24 09:30:00 MCV 83.8 fL 03/17/24 09:30:00 MCH 27.7 pg 03/17/24 09:30:00 MCHC 33.1 g/dL 03/17/24 09:30:00 RDW-CV 17.6 %??High 03/17/24 09:30:00 Platelets 244 x10^3/mcL 03/17/24 09:30:00 Segs Man 78 %??High 03/17/24 09:30:00 Lymph Man 10 %??Low 03/17/24 09:30:00 Aurora Man 10 % 03/17/24 09:30:00 Eos Man 1 % 03/17/24 09:30:00 Baso Man 0 % 03/17/24 09:30:00 Band Man 0 % 03/17/24 09:30:00 Abs Neut Man 8.3 x10^3/mcL 03/17/24 09:30:00 RBC Morph Abnormal 03/17/24 09:30:00 Anisocyte Rare 03/17/24 09:30:00 Hypochromia Rare 03/17/24 09:30:00 Immature Cells 1 03/17/24 09:30:00 Microcyte Rare 03/17/24 09:30:00 Ovalocytes Rare 03/17/24 09:30:00 Poik Rare 03/17/24 09:30:00 Slide Review Man Diff 03/17/24 09:30:00 ? All Other Results ? Event Name?? Event Result?? Date/Time?? SARS-CoV-2 (COVID-19) RNA (ID Now) Not Detected 03/17/24 15:27:17 ? Discharge Plan 1.??Hypoxia??R09.02 2.??Decompensated heart failure??I50.9 3.??NSTEMI (non-ST elevated myocardial infarction)??I21.4 4.??Hypomagnesemia??E83.42 5.??Coronary arteriosclerosis??I25.10 6.??Gastroesophageal reflux disease??K21.9 7.??Hypertensive disorder??I10 8.??Type 2 diabetes mellitus??E11.9 9.??Stroke??I63.9 10.??Hemorrhagic stroke??I61.9 Orders: Transfer to Another Facility, 03/17/24 19:40:00 EDT All Diagnoses This Visit Hypoxia Decompensated heart failure NSTEMI (non-ST elevated myocardial infarction) Hypomagnesemia Coronary arteriosclerosis Gastroesophageal reflux disease Hypertensive disorder Type 2 diabetes mellitus Stroke Hemorrhagic stroke Medication Reconciliation Changed sodium chloride (sodium chloride 1 g oral tablet)2 tab Oral (given by mouth) 3 times a day. Refills: 0. ?? Unchanged acetaminophen (acetaminophen 500 mg oral tablet)2 tab Oral (given by mouth) every 6 hours as neededother (see comment). as needed. ?? amLODIPine (amLODIPine 5 mg oral tablet)1 tab Oral (given by mouth) 2 times a day. 180 EA, TAKE ONETABLET BY MOUTH TWICE A DAY. ?? aspirin (aspirin 81 mg oral tablet, chewable)1 tab Chewed every day for 30 Days. Refills: 0. ?? ezetimibe (Zetia 10 mg oral tablet)1 tab Oral (given by mouth) every day. Refills: 4. ?? furosemide (furosemide 40 mg oral tablet)1 tab Oral (given by mouth) every day. Refills: 0. ?? glipiZIDE (glipiZIDE 10 mg oral tablet, extended release)2 tab Oral (given by mouth) every day. 180EA, TAKE TWO TABLETS BY MOUTH EVERY DAY. ?? ketoconazole topical (ketoconazole 2% topical cream)1 Application Topical (on the skin) every day. ?? metFORMIN (metFORMIN 1000 mg oral tablet)1 [...] needed for chest pain. ?? Other Prescription ([facility] [place]100 EA, USE ONE DAILY DIRECTED. ?? pantoprazole (pantoprazole 40 mg oral delayed release tablet)1 tab Oral (given by mouth) every day. ?? rosuvastatin (rosuvastatin 40 mg oral tablet)1 tab Oral (given by mouth) every day. Refills: 0. ?? sacubitril-valsartan (Entresto 24 mg-26 mg oral tablet)1 tab Oral (given by mouth) 2 times a day. Refills: 11. ?? tamsulosin (tamsulosin 0.4 mg oral capsule)1 Capsules Oral (given by mouth) every night at bedtime.Refills: 0. ?? traMADol (traMADol 50 mg oral tablet)1 tab Oral (given by mouth) every 12 hours as needed as neededfor pain. Electronically Signed on 03/17/2024 19:48 EDT Davey Edgar PA-C Electronically Signed on 03/18/2024 08:21 EDT Vale Rivera MD Patient Care team information Care Team Personnel Name: Ramiro Landry MD Position: No Access Member Role: Informed Provider Address: [address] Care Team Related Persons Name: SEBAS PAYNE Insurance Providers Guarantor name: BURTON PAYNE Health Plan Information #: 1 Payer: [facility] [place] [employer] [place]AC[place] HMO Member Number: [id number] Policy Number: [id number] Health Plan Information #: 2 Payer: [facility] [place] H[place] Member Number: [id number] Policy Number: [id number] Health Plan Information #: 3 Payer: [facility] [place] HMO Member Number: [id number] Policy Number: NA
--- OUTSIDE RECORDS SUMMARY | 2024-03-26 15:47 | XMS_ITS ---
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 If you have left the hospital and have any questions, please contact your primary care physician. Reason For Referral No Data Found Plan of Treatment NM MPI STR/RST 04/24/2023 Encounters Encounter Diagnosis Start Date Code Code Sys tem Atherosclerotic heart diseas e of [place] coronary artery without angina pectoris 03/11/2023 SNOMED-CT Personal Care Team Section Performer Name Performer Role Active Date Inactive Da te
--- OUTSIDE RECORDS SUMMARY | 2024-03-26 15:47 | XMS_ITS ---
Author Organization Unknown Address [address] [place] [address] [phone] Phone Care Team Providers Care Hvac Refrigeration Technician Name Role Phone AVERY Tobias Attending Unavailable MARRY De La Paz [...] Diagnosis Start Date Code Code Sys tem Aortic stenosis, non-rheumatic 12/11/2022 [id number] SNOMED-CT Personal Care Team Section Performer Name Performer Role Active Date Inactive Da te
--- OUTSIDE RECORDS SUMMARY | 2024-03-26 15:47 | XMS_ITS | Continuity of Care Document ---
Author Organization [facility] Address [address] [place] [address] Care Team Providers Care Wig Comber Name Role Phone [facility], Ramiro Noe Primary Care Physician Encounter [facility] Date(s): 01/31/24 - 01/31/[address] [phone] Discharge Disposition: Home or Self Care Attending [...] Daily, # 90 tab, 4 Refill(s), Pharmacy: [id number] Start Date: 12/20/22 Stop Date: 03/14/24 Status: Ordered Zetia 10 mg oral tablet 10 mg = 1 tab, Oral, Daily, # 90 tab, 4 Refill(s), Pharmacy: [id number] Start Date: 07/02/22 Status: Ordered Problem [...] Access Member Role: Informed Provider Address: Address: [address] [address] [place] Care Team Related Persons Name: ELMER SEBAS E Address: Home [address] [place], [place] [phone]
--- OUTSIDE RECORDS SUMMARY | 2024-03-26 15:47 | XMS_ITS ---
Author Organization Unknown Address [address] [place] [address] [phone] Phone Care Team Providers Care Is Manager Name Role Phone AVERY Tobias Attending Unavailable MARRY De La Paz Primary Unavailable Results NM MPI COMPLETE - Completed: 04/24/2023 14:16 LOINC: [place], [place] [address] PACS CONTOUR SANDER REPORT Patient Name: BURTON PAYNE MRN: Sex: : Age: [id number] M 1950 72 Account: Accession: Admit: StayType: [id number] 04/24/2023 CLINIC Ordered: Order ID: Submitted: Ordering Provider: 04/24/2023 11:30 [id number] P Sudeep Lackey Completed: Technologist: Resulted: 04/24/2023 14:16 HTP 04/24/2023 15:34 Vasodilator/Pharmacologic Nuclear Stress Test Date: 04/24/2023 10:21 AM EDT Ordering Provider: Sudeep Lackey Referring Provider: SUDEEP LACKEY ID number: [id number] Date of : 1950 Age: 72Y Indication for test: CHEST PAIN, CAD The patient underwent vasodilator nuclear stress testing. 9.0 mCi technetium administered at 1130 hours as rest dose radionuclide 31.9 mCi technetium administered at 1255 hours as stress dose radionuclide Baseline BP: 121/71 baseline HR: 56 Baseline ECG: Sinus rhythm 58 bpm. T wave inversion lead III, F. Hemodynamic response: Normal Chest pain: None Arrhythmia: None EKG changes: None Gated imaging demonstrates an ejection fraction of LVEF 61%, mild septal hypokinesis. Perfusion imaging demonstrates large size anterolateral, lateral, inferolateral intense transient defect. Moderate size inferior basal-mid inferior intense predominantly transient defect. TID index 1.08. Conclusions: Significant ischemia with the possibility of multivessel disease suggested on this stress test. Normal LV systolic function. We will arrange LHC. Report Digitally Signed by Sudeep Lackey on 04/24/2023 03:34 PM EDT Social History Type Status Start Date End [...] Sys tem Atherosclerotic heart diseas e of [place] coronary artery without angina pectoris 04/24/2023 SNOMED-CT Personal Care Team Section Performer Name Performer Role Active Date Inactive Da etd
--- OUTSIDE RECORDS SUMMARY | 2024-03-26 15:47 | XMS_ITS ---
Author Organization Unknown Address [address] [place] [address] [phone] Phone Care Team Providers Care Supervisor Major Appliance Assembly Name Role Phone AVERY Tobias Attending Unavailable [...] Code Code Sys tem Aortic stenosis, non-rheumatic 03/19/2023 [id number] SNOMED-CT Personal Care Team Section Performer Name Performer Role Active Date Inactive Da te
--- OUTSIDE RECORDS SUMMARY | 2024-03-26 15:47 | XMS_ITS ---
Author Organization Unknown Address [address], [place] [phone] Phone Care Team Providers Care Uniform Room Attendant Name Role Phone AVERY Tobias Attending Unavailable MARRY De La Paz Primary Unavailable Results CBC W/ DIFFERENTIAL* - Colle ct Date/Time: 04/30/2023 10:40 [facility] ID: [id number] [address], [place], [address] LOINC: 438[address]-6 Test Value Unit Reference Range Code Code System Flag WBC 7.08 th/cmm L=5.00 H=10.00 6690-2 LOINC NEUT % 61.7 % L=40.0 H=80.0 LYMPH % 21.6 % L=10.0 H=50.0 MONO % 12.4 % L=2.0 H=12.0 81612-5 LOINC H EOS % 3.2 % L=0.0 H=8.0 BASO % 1.0 % L=0.0 H=3.0 IG % 0.1 % L=0.0 H=1.1 2514-8 LOINC NRBC % 0.0 % L=0.0 H=0.0 04938-0 LOINC NEUT abs count 4.4 th/cmm L=1.6 H=8.4 751-8 LOINC LYMPH abs count 1.5 th/cmm L=1.5 H=4.0 731-0 LOINC MONO abs count 0.9 th/cmm L=0.2 H=1.0 742-7 LOINC EOS abs count 0.2 th/cmm L=0.0 H=0.5 711-2 LOINC BASO abs count 0.1 th/cmm L=0.0 H=0.2 704-7 LOINC IG abs count 0.0 th/cmm L=0.0 H=0.1 35584-1 LOINC NRBC abs count 0.0 mil/cmm L=0.0 H=0.0 70296-3 LOINC RBC 5.20 mil/cmm L=4.30 H=6.20 789-8 LOINC HEMOGLOBIN 13.6 gm/dL L=13.0 H=17.0 718-7 LOINC HEMATOCRIT 44 % L=45 H=52 4544-3 LOINC L MCV 84 fL L=82 H=92 787-2 LOINC MCH 26.2 pg L=27.0 H=31.0 785-6 LOINC L MCHC 31.2 % L=32.0 H=36.0 786-4 LOINC L RDW-SD 44.2 fL L=39.0 H=49.0 788-0 LOINC PLATELET COUNT 171 th/cmm L=150 H=450 777-3 LOINC BASIC METABOLIC PANEL (BMP) - Collect Date/Time: 04/30/2023 10:40 [facility] ID: [id number] [address], [place], [address] LOINC: 86523-6 Test Value Unit Reference Range Code Code System Flag GLUCOSE 237 mg/dL L=70 H=116 2345-7 LOINC H BUN 20 mg/dL L=6 H=25 3094-0 LOINC CREATININE 1.33 mg/dL L=0.67 H=1.17 2160-0 LOINC H SODIUM SERUM 137 mmol/L L=136 H=145 2951-2 LOINC POTASSIUM SERUM 4.3 mmol/L L=3.4 H=5.2 2823-3 LOINC CHLORIDE SERUM 102 mmol/L L=96 H=110 2075-0 LOINC CARBON DIOXIDE (CO2) 26 mmol/L L=22 H=34 2028-9 LOINC ANION GAP 9.2 mmol/L 10927-8 LOINC CALCIUM SERUM 9.7 mg/dL L=8.2 H=10.2 90905-0 LOINC AGE 72 years eGFR (non-Afr.Amer.) 53 mL/min 78993-3 [facility] eGFR (Afr-Citizen Of [place]) 64 mL/min 62357-7 [facility] Social History Type Status Start Date End [...] Diagnosis Start Date Code Code Sys tem Abnormal result of other cardiovascular function study 04/30/2023 SNOMED-CT Personal Care Team Section Performer Name Performer Role Active Date Inactive Da te
--- OUTSIDE RECORDS SUMMARY | 2024-03-26 15:48 | XMS_ITS | Continuity of Care Document ---
Author Organization [facility] Address [address] [place] [address] Care Team Providers Care Work Distributor Name Role Phone TAMIA TAYLOR Primary Care Provider MATEO GLASS Hose Operator DOWELL KATHLEEN Sheep Clipper [phone] DELPHINE OLSEN Community Health Worker WINTER LACKEY DEISY WALDEN Single Stayer Operator/Patient Accounts Specialist [facility] PIPE FITTER MAINTENANCE-RAJEEV LEVIN Single Stayer Operator/Nutritioni st BURT DASILVA Dentist ANTONIA FARRIS [facility] Assessment Encounter Date Assessment Date Assessment LastModified by Organization Details LastModified Time 02/21/2024 02/21/2024 The patient is a 73-year-old male with lumbar spondylosis with myelopathy , presenting with low back pain and left leg pain. There has been some improvement in the last three to four days, possibly due to the medrol dose alexsander and cyclobenzaprin e. The patient has been referred to a spine center for further evaluation and potential treatment options. Not available 02/21/2024 13:29:08 Plan of Treatment Reminders Order Date Submit Date Provider Last Modified By Organization Details Last Modified Time Details Appointments hospital follow up 2023 02:10P M Not available Not available Not available Follow Up 30 2023 11:30A M Not available Not available Not available Lab drug screen, urine 2023 024 [facility], [address] [facility], [place], [address], 02/21/2024 13:10:09 Referral None recorded. Procedures None recorded. Surgeries None recorded. Imaging None recorded. Medication Orders tramadol 50 mg tablet 2023 024 [id number], [address], [place], [address], 02/21/2024 10:39:14 Patient TargetsNo targets recorded. Patient Instructions Encounter Date Encounter Id Patient Instructions Last Modified By Organization Details Last Modified Time 02/21/2024 [id number] let me know if y ou do not hear from [facility] in 1-2 weeks prescription for tramadol 1 tablet twice daily as needed for SEVERE pain only. you can continue with tylenol 1000mg every 6-8 hours max of 3 doses in 24 hours continue to do activity and stretches as tolerated continue with cyclobenzaprine (muscle relaxer) at bedtime as needed Call with any questions or concerns [email or web address] Not available 02/21/2024 10:41:03 Reason for Referral Urologist Referral for Prost ate specific antigen above reference range elevated PSA 8.7 and nocturia. recently treated for cystitis. Referring Physician: [facility], Encounter Date: 05/28/2023 Physical Therapist Referral for Lumbago with sciatica Referring Physician: [facility], Encounter Date: 01/31/2024 Spine Center Referral for Edilia mbar spondylosis with myelopathy [facility] Referral Referring Physician: Family Nadia Medicine, Encounter Date: 02/18/2024 Results Created Date Observation Date Name Description Value Unit Range Abnormal Flag Note LastModifiedBy Organization Detail LastModifiedTime 02/21/2002/21/2024 drug scree n, urine Amphetamines : negati ve Not Available [facility] [address], [place], [address], 02/21/2024 10:39:26 02/21/20 24 02/21/2024 drug scree n, urine Barbiturates : negati ve Not Available [facility] [address] [address], [place], [address], 02/21/2024 10:39:26 02/21/20 24 02/21/2024 drug scree n, urine BUP: negati ve Not Available [facility] [address] [address], [place], [address], 02/21/2024 10:39:26 02/21/20 24 02/21/2024 drug scree n, urine Benzodiazepi david: negati ve Not Available [facility] [address] [address], [place], [address], 02/21/2024 10:39:26 02/21/20 24 02/21/2024 drug scree n, urine Cocaine: negati ve Not Available [facility] [address] [address], [place], [address], 02/21/2024 10:39:26 02/21/20 24 02/21/2024 drug scree n, urine EDDP (Methadone Metabolite) negati ve Not Available [facility] [address] [address], [place], [address], 02/21/2024 10:39:26 02/21/20 24 02/21/2024 drug scree n, urine (MET) Methamphetam ine: negati ve Not Available [facility] [address] [address], [place], [address], 02/21/2024 10:39:26 02/21/20 24 02/21/2024 drug scree n, urine MDMA: negati ve Not Available [facility] [address] [address], [place], [address], 02/21/2024 10:39:26 02/21/20 24 02/21/2024 drug scree n, urine MTD (Methadone): negati ve Not Available [facility] [address] [facility] [address], [place], [address], 02/21/2024 10:39:26 02/21/20 24 02/21/2024 drug scree n, urine [id number] (Opiate): negati ve Not Available [facility] [address] [facility] [address], [place], [address], 02/21/2024 10:39:26 02/21/20 24 02/21/2024 drug scree n, urine OXY (Oxycodone): negati ve Not Available [facility] [address] [facility] [address], [place], [address], 02/21/2024 10:39:26 02/21/20 24 02/21/2024 drug scree n, urine TCA: positi ve Not Available [facility] [address] [facility] [address], [place], [address], 02/21/2024 10:39:26 02/21/20 24 02/21/2024 drug scree n, urine THC: negati ve Not Available [address] [address], [place], [address], 02/21/2024 10:39:26 01/31/20 24 01/31/2024 XR, lumba r spine ABNORM AL FINDIN G PROCED URE INFORM ATION: Exam: XR Lumbos acral Spine Exam date and time: 024 4:32 PM Age: 73 years old Clinic al indica tion: Lumbag o with sciati ca, left TECHNI QUE: Imagin g protoc ol: Radiol ogic exam of the lumbos acral spine. Views: 2 or 3 views. COMPAR NGOC: CT ABD/PE LVIS W/ CONTR NO PO 024 11:39 PM FINDIN GS: Bones/ joints : There is marked narrow ing of the L2-L3 disc. Margin al osteop hytes are noted at multip le levels in the spine. The facet joints demons trate mild degene rative hypert rophy and sclero sis. The verteb ral body height s are mainta ined. Soft tissue s: The extras pinous soft tissue s are normal . IMPRES CELESTINO: Degene rative disc and facet diseas e. Report signed by: William Bryant On 2023 16:53: 31 [email or web address] [facility] [address], [place], [address], 02/04/2024 08:35:54 02/16/20 24 02/14/2024 MR LS spine wo contr ast ABNORM AL FINDIN G PROCED URE INFORM ATION: Exam: MR Lumbar Spine Withou t Contra st Exam date and time: 02/14/20 24 2:27 PM Age: 73 years old Clinic al indica tion: Lumbag o with sciati ca TECHNI QUE: Imagin g protoc ol: Magnet ic resona nce imagin g of the lumbar spine withou t contra st. 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 Mild curvat ure of the lumbar spine convex to the right. No compre ssion deform ity verteb ral bodies . No bone marrow replac ement. No spondy lolist hesis. Spinal cord: Visual ized cord, conus medull ramon and cauda equina are unrema rkable withou t compre ssion. L1-L2: Right forami nal disc protru celestino causin g mild right forami nal narrow ing. No signif icant thecal sac compre ssion. L2-L3: [employer] ior osteop hyte disc comple x with bilate ral facet joint arthro rober and ligame ntum flavum hypert rophy causin g modera te thecal sac compre ssion and modera te narrow ing of both neural forami na. L3-L4: [employer] ior osteop hyte disc comple x with bilate ral facet joint arthro rober and ligame ntum flavum hypert rophy causin g modera te thecal sac compre ssion and modera te narrow ing of both neural forami na. There is a right forami nal disc protru celestino. L4-L5: [employer] ior osteop hyte disc comple x with bilate ral facet joint arthro rober and ligame ntum flavum hypert rophy causin g severe thecal sac compre ssion and modera te narrow ing of both neural forami na, more on the right side. L5-S1: [employer] ior osteop hyte disc comple x with bilate ral facet joint arthro rober ligame ntum flavum hypert rophy but no signif icant thecal sac compre ssion. There is severe narrow ing of the right and modera te narrow ing of the left neural forame n. Soft tissue s: Unrema rkable . IMPRES CELESTINO: Multil evel degene rative diseas e of the lumbar spine, most pronou nced at L4-L5 with severe thecal sac compre ssion. Report signed by: Anthony Camilo On 2023 11:18: [address], [place], [address], 02/18/2024 12:57:36 02/23/20 24 02/23/2024 XR, chest , 1 view PROCED URE INFORM ATION: Exam: XR Chest Exam date and time: 9:22 AM Age: 73 years old Clinic al indica tion: Chest pain TECHNI QUE: Imagin g protoc ol: Radiol ogic exam of the chest. Views: 1 view. COMPAR NGOC: CT ABD/PE LVIS W/ CONTR NO PO 11:39 PM FINDIN GS: Lungs: Unrema rkable . No consol idatio n. Pleura l spaces : Unrema rkable . No pleura l effusi on. No pneumo thorax . Heart/ Medias tinum: Unrema rkable . No cardio megaly . Bones/ joints : Median sterno montez IMPRES CELESTINO: No focal consol idatio n Report signed by: Sheeba Yang On 2023 10:36: [email or web address], [place], [address], 02/23/2024 21:53:44 03/09/20 24 03/09/2024 CT, head + brain , w/o contr ast PROCED URE INFORM ATION: Exam: CT Head Withou t Contra st Exam date and time: 6:35 AM Age: 73 years old Clinic al indica tion: AMS TECHNI QUE: Imagin g protoc ol: Comput ed tomogr aphy of the head withou t contra st. Radiat ion optimi zation : All CT scans at this [facility] ty use at least one of these dose optimi zation techni ques: automa rose marie exposu re contro l; mA and/or kV adjust ment per patien t size (inclu hadley target ed exams where dose is matche d to clinic al indica tion); or iterat gwen recons tructi on. COMPAR NGOC: No releva nt prior studie s availa ble. FINDIN GS: Brain: No hemorr sylvain. Unrema rkable white matter . No mass effect . Cerebr al ventri cles: No ventri culome harvey. Parana abelardo sinuse s: Visual ized sinuse s are unrema rkable . No fluid levels . Mastoi d air cells: Visual ized mastoi d air cells are well aerate d. Bones: Unrema rkable . No acute fractu re. Soft tissue s: Unrema rkable . IMPRES CELESTINO: No acute intrac ranial abnorm ality. Report signed by: Dorina Mojica On 2023 07:05: [email or web address], [place], [address], 03/09/2024 10:07:54 03/09/2003/09/2024 XR, chest , 1 view PROCED URE INFORM ATION: Exam: XR Chest Exam date and time: 6:22 AM Age: 73 years old Clinic al indica tion: AMS TECHNI QUE: Imagin g protoc ol: Radiol ogic exam of the chest. Views: 1 view. COMPAR NGOC: CR XR CHEST 1 VW 024 9:22 AM FINDIN GS: Lungs: Patchy perihi lar opacit ies. No focal consol idatio n. Pleura l spaces : No sizabl e pleura l effusi on or pneumo thorax . Heart/ Medias tinum: Stable cardio medias tinal silhou ette. Bones/ joints : Status post median sterno montez. IMPRES CELESTINO: Patchy perihi lar opacit ies may be infect ious etiolo gy. No focal consol idatio n to sugges t pneumo naga. Report signed by: Dorina Mojica On 2023 07:06: [email or web address] , [place], [address], 03/09/2024 10:07:54 03/10/2003/10/2024 MRI, brain , w/o contr ast CRITIC AL FINDIN G PROCED URE INFORM ATION: Exam: MR Head Withou t Contra st Exam date and time: 2:38 PM Age: 73 years old Clinic al indica tion: Altere d mental status , facial droop, lower extrem ity ataxia , R/O stroke TECHNI QUE: Imagin g protoc ol: Magnet ic resona nce imagin g of the head withou t contra st. COMPAR NGOC: CT HEAD/B RAIN WO CONTRA ST 024 6:35 AM FINDIN GS: Brain: There is very small linear chroni c infarc t in left cerebe llar hemisp here. There is mixtur e of subacu te methem oglobi n chroni c hemosi christopher staini ng in the right questioned documents examiner ior mesial tempor al lobe involv ing hippoc ampus as well as subacu te methem oglobi n in the questioned documents examiner ior thalam us. There is minima l persis tent linear cortic al increa sed signal on diffus ion-we ighted images in the mesial tempor al region which likely shows low signal on ADC map and is consis tent with small areas of persis tent resolv ing restri cted diffus ion in the subacu te to chroni c infarc t. There is also a separa te area of restri cted diffus ion in the latera l right thalam us and adjace nt questioned documents examiner ior limb of international organizer al capsul e which is theref ore consis tent with an additi onal area of acute to subacu te and more recent lacuna r infarc t. This shows no blood produc ts. Few small areas of increa sed cerebr al white matter FLAIR signal consis tent with mild microv ascula r change . Cerebr al ventri cles: Normal . No ventri culome harvey. Bones: Unrema rkable . Parana abelardo sinuse s: Normal as visual ized. No acute sinusi tis. Mastoi d air cells: No signif icant mastoi d effusi on. Orbita l caviti es: There have been bilate ral intrao cular lens replac ements likely relate d to catara ct surger y. Soft tissue s: Unrema rkable as visual ized. IMPRES CELESTINO: 1. Area of subacu te to chroni c infarc t in right questioned documents examiner ior mesial tempor al lobe with both subacu te and chroni c hemorr sylvain. Additi onal area of subacu te hemorr sylvain in the right questioned documents examiner ior thalam us. 2. Separa te area of restri cted diffus ion and acute to subacu te infarc t withou t hemorr sylvain in right latera l thalam us and adjace nt questioned documents examiner ior limb of international organizer al capsul e. Report signed by: Diana Riddle eyer On 2023 15:41: 13 [email or web address], [place], [address], 03/10/2024 16:49:36 03/11/20 24 03/11/2024 XR, chest , 1 view ABNORM AL FINDIN G PROCED URE INFORM ATION: Exam: XR Chest Exam date and time: 024 1:17 AM Age: 73 years old Clinic al indica tion: SOB, desat, increa sed wob TECHNI QUE: Imagin g protoc ol: Radiol ogic exam of the chest. Views: 1 view. COMPAR NGOC: CR XR CHEST 1 VW 6:22 AM and chest x-ray 2023 FINDIN GS: Lungs: Pulmon pao venous conges tion and new consol idatio ns in the upper lobes, right side more than left, suspic ious for pulmon pao edema. Pleura l spaces : Unrema rkable . No pleura l effusi on. No pneumo thorax . Heart/ Medias tinum: Stable mild cardio megaly . Prosth etic cardia c valve. CABG. Bones/ joints : Sterno montez. Old, healed right questioned documents examiner ior 8th rib fractu re. IMPRES CELESTINO: Increa sing pulmon pao venous conges tion and edema in the upper lungs. Report signed by: Robin Angel On 2023 02:07: 09 [email or web address], [place], [address], 03/12/2024 10:31:05 03/11/2003/10/2024 MRI, brain , w/o contr ast CRITIC AL FINDIN G Addend um create d by Diana byers MD on 7:02:3 6 AM EDT: MOISES reyna ed report and has no questi ons. Also, techno logist replie d that [facility] has seen report . Initia l report create d on 3:41:1 3 PM EDT: ====== ====== ====== ====== ====== ====== ====== ====== ====== ====== ===== PROCED URE INFORM ATION: Exam: MR Head Withou t Contra st Exam date and time: 2:38 PM Age: 73 years old Clinic al indica tion: Altere d mental status , facial droop, lower extrem ity ataxia , R/O stroke TECHNI QUE: Imagin g protoc ol: Magnet ic resona nce imagin g of the head withou t contra st. COMPAR NGOC: CT HEAD/B RAIN WO CONTRA ST 8/26/2 024 6:35 AM FINDIN GS: Brain: There is very small linear chroni c infarc t in left cerebe llar hemisp here. There is mixtur e of subacu te methem oglobi n chroni c hemosi christopher staini ng in the right questioned documents examiner ior mesial tempor al lobe involv ing hippoc ampus as well as subacu te methem oglobi n in the questioned documents examiner ior thalam us. There is minima l persis tent linear cortic al increa sed signal on diffus ion-we ighted images in the mesial tempor al region which likely shows low signal on ADC map and is consis tent with small areas of persis tent resolv ing restri cted diffus ion in the subacu te to chroni c infarc t. There is also a separa te area of restri cted diffus ion in the latera l right thalam us and adjace nt questioned documents examiner ior limb of international organizer al capsul e which is theref ore consis tent with an additi onal area of acute to subacu te and more recent lacuna r infarc t. This shows no blood produc ts. Few small areas of increa sed cerebr al white matter FLAIR signal consis tent with mild microv ascula r change . Cerebr al ventri cles: Normal . No ventri culome harvey. Bones: Unrema rkable . Parana abelardo sinuse s: Normal as visual ized. No acute sinusi tis. Mastoi d air cells: No signif icant mastoi d effusi on. Orbita l caviti es: There have been bilate ral intrao cular lens replac ements likely relate d to catara ct surger y. Soft tissue s: Unrema rkable as visual ized. IMPRES CELESTINO: 1. Area of subacu te to chroni c infarc t in right questioned documents examiner ior mesial tempor al lobe with both subacu te and chroni c hemorr sylvain. Additi onal area of subacu te hemorr sylvain in the right questioned documents examiner ior thalam us. 2. Separa te area of restri cted diffus ion and acute to subacu te infarc t withou t hemorr sylvain in right latera l thalam us and adjace nt questioned documents examiner ior limb of international organizer al capsul e. Report signed by: Diana byers On 2023 07:02: 36 [facility] [address], [place], [address], 03/12/2024 10:31:04 03/11/2003/10/2024 MRI, brain , w/o contr ast CRITIC AL FINDIN G Addend um espinoza d by Diana byers MD on 2:37:4 7 PM EDT: COMPAR NGOC MORE: MR BRAIN WO CONTRA ST 2:08 PM As noted there is minima l residu al linear cortic al restri cted diffus ion in the right hippoc ampus and previo usly there was signif icant restri cted diffus ion in the medial and questioned documents examiner ior right tempor al lobe which has nearly resolv ed except for the 2 small linear areas. This theref ore is consis tent with subacu te to chroni c infarc t at this time. The area of subacu te hemorr sylvain in the questioned documents examiner ior aspect of the thalam us is locate d in area acute to subacu te infarc t in the right questioned documents examiner ior thalam us on prior examin ation. Restri cted diffus ion in this locati on has resolv ed. Addend um espinoza d by Diana byers MD on 7:02:3 6 AM EDT: MOISES reyna ed report and has no questi ons. Also, techno logist replie d that [facility] has seen report . Initia l report create d on 3:41:1 3 PM EDT: ====== ====== ====== ====== ====== ====== ====== ====== ====== ====== ===== PROCED URE INFORM ATION: Exam: MR Head Withou t Contra st Exam date and time: 2:38 PM Age: 73 years old Clinic al indica tion: Altere d mental status , facial droop, lower extrem ity ataxia , R/O stroke TECHNI QUE: Imagin g protoc ol: Magnet ic resona nce imagin g of the head withou t contra st. COMPAR NGOC: CT HEAD/B RAIN WO CONTRA ST 024 6:35 AM FINDIN GS: Brain: There is very small linear chroni c infarc t in left cerebe llar hemisp here. There is mixtur e of subacu te methem oglobi n chroni c hemosi christopher staini ng in the right questioned documents examiner ior mesial tempor al lobe involv ing hippoc ampus as well as subacu te methem oglobi n in the questioned documents examiner ior thalam us. There is minima l persis tent linear cortic al increa sed signal on diffus ion-we ighted images in the mesial tempor al region which likely shows low signal on ADC map and is consis tent with small areas of persis tent resolv ing restri cted diffus ion in the subacu te to chroni c infarc t. There is also a separa te area of restri cted diffus ion in the latera l right thalam us and adjace nt questioned documents examiner ior limb of international organizer al capsul e which is theref ore consis tent with an additi onal area of acute to subacu te and more recent lacuna r infarc t. This shows no blood produc ts. Few small areas of increa sed cerebr al white matter FLAIR signal consis tent with mild microv ascula r change . Cerebr al ventri cles: Normal . No ventri culome harvey. Bones: Unrema rkable . Parana abelardo sinuse s: Normal as visual ized. No acute sinusi tis. Mastoi d air cells: No signif icant mastoi d effusi on. Orbita l caviti es: There have been bilate ral intrao cular lens replac ements likely relate d to catara ct surger y. Soft tissue s: Unrema rkable as visual ized. IMPRES CELESTINO: 1. Area of subacu te to chroni c infarc t in right questioned documents examiner ior mesial tempor al lobe with both subacu te and chroni c hemorr sylvain. Additi onal area of subacu te hemorr sylvain in the right questioned documents examiner ior thalam us. 2. Separa te area of restri cted diffus ion and acute to subacu te infarc t withou t hemorr sylvain in right latera l thalam us and adjace nt questioned documents examiner ior limb of international organizer al capsul e. Report signed by: Diana Riddle eyer On 2023 14:37: 47 [facility] [address] , [place], [address], 03/12/2024 10:31:04 03/11/20 24 03/11/2024 CT, head + brain , w/o contr ast ABNORM AL FINDIN G PROCED URE INFORM ATION: Exam: CT Head Withou t Contra st Exam date and time: 4:56 PM Age: 73 years old Clinic al indica tion: F/u CVA TECHNI QUE: Imagin g protoc ol: Comput ed tomogr aphy of the head withou t contra st. Radiat ion optimi zation : All CT scans at this facili ty use at least one of these dose optimi zation techni ques: automa rose marie exposu re contro l; mA and/or kV adjust ment per patien t size (inclu hadley target ed exams where dose is matche d to clinic al indica tion); or iterat gwen recons tructi on. COMPAR NGOC: MR BRAIN WO CONTRA ST 2:38 PM FINDIN GS: Brain: Redemo nstrat ion of small subacu te to early chroni c infarc t involv ing the right hippoc ampus. Trace hyperd ensity along the questioned documents examiner ior aspect of the right thalam us and along the questioned documents examiner omedia l right hippoc ampus may correl ate with areas of microh emorrh age as demons trated on prior MRI. Mild nonspe cific hypode nsitie s of the perive ntricu lar and deep subcor tical white matter , most likely second pao to chroni c microa ngiopa thic ischem ic change . No extra- axial fluid collec tion. No eviden ce of mass effect or midlin e shift. Cerebr al ventri cles: Mild promin ence of the ventri cles and sulci, most likely attrib uted to parenc hymal volume loss. Parana abelardo sinuse s: Unrema rkable . No fluid levels . Mastoi d air cells: Unrema rkable . Bones: No acute calvar ial fractu re. Soft tissue s: Scalp soft tissue s are unrema rkable . IMPRES CELESTNIO: 1. Redemo nstrat ion of small subacu te to early chroni c infarc t involv ing the right hippoc ampus. 2. Trace hyperd ensity along the questioned documents examiner ior aspect of the right thalam us and along the questioned documents examiner omedia l right hippoc ampus may correl ate with areas of microh emorrh age as demons trated on prior MRI. 3. Other chroni c findin gs, as above. Report signed by: Daniel Stanton On 2023 17:14: [address], [place], [address], 03/11/2024 18:42:20 03/12/2003/12/2024 US extre mity lower venou s ar EXAM: BILATE RAL LEG ULTRAS OUND RIS EXAM DATE/T CARITO: 2023 00:00 INDICA TION: Edema There is calcif ied chroni c thromb us in the mid and distal right femora l vein. There is partia l compre ssibil ity. There is no expans ile materi al noted on either side to sugges t acute thromb us. There is compre ssibil ity throug hout on the left. There is normal color flow Dopple r throug hout. IMPRES CELESTINO: Chroni c thromb us with partia l compre ssibil ity in the mid and distal right femora l vein. No eviden ce of acute DVT noted. THIS IS AN ELECTR ONICAL LY VERIFI ED REPORT 024 4:27 PM: ANALILIA SAUNDERS M.D. [address], [place], [address], 03/12/2024 18:10:18 09/0303/17/2024 XR, chest , 1 view ABNORM AL FINDIN G PROCED URE INFORM ATION: Exam: XR Chest Exam date and time: 03/17/20 10:07 AM Age: 73 years old Clinic al indica tion: Cough and SOB TECHNI QUE: Imagin g protoc ol: Radiol ogic exam of the chest. Views: 1 view. COMPAR NGOC: CR XR CHEST 1 VW 024 1:17 AM FINDIN GS: Lungs: Multif ocal bilate ral airspa ce diseas e. Pleura l spaces : Unrema rkable . No pleura l effusi on. No pneumo thorax . Heart/ Medias tinum: Stable cardio megaly . Bones/ joints : Prior median sterno montez, CABG and aortic valve replac ement IMPRES CELESTINO: Shifti ng multif ocal bilate ral airspa ce diseas e Report signed by: Kaye Mccabe On 2023 10:21: [address] [address] [address], [place], [address], 03/17/2024 11:49:43 Result Notes None recorded. Problems Name Problem SNOMED Code Status Onset Date Resolution Date Notes Provider Name and Address Organization Details Recorded Time Hyperlip idemia 06421487 Active 2001 Vanita Martínez [facility], [facility], [facility]. 4 10:52:48 Gastroes ophageal reflux disease without esophagi tis 716968775 Active 2001 Vanita Martínez [facility], [facility], [facility] 4 10:52:40 Aortic stenosis , non-rheu matic 503808722 Active 2012 Vanitaenedina Martínez [facility], [facility], [facility]. 4 10:51:50 Type 2 diabetes mellitus without complica tion 360669790 Completed 200103/24/[address], [place], [address] , [facility] 4 12:13:19 Atherosc lerosis of coronary artery without angina pectoris 55697199733 4103 Active 2001 CAD Vanitaenedina Martínez [facility], [place] - [facility], [facility] 4 10:52:05 Essentia l hyperten celestino 89885812 Active 2014 Vanita Mauricio [facility], [facility] 4 10:52:32 Posterio r rhinorrh ea 83371020 Completed 201607/11/2017 05/30/20 17 - Comments only - Binu Cortes PA-C - Recommen d trial nasal saline. Follow-u p if not improved . Problem Code: R09.82; Problem Code Type: ICD-10; Not Available [facility] 3 05:30:35 Pre-surg eri evaluati on Completed 201705/30/2018 04/18/20 18 - Comments only - Binu Cortes PA-C - Patient RCRI is 1 given his diabetes . He has excellec t exercise capacity without any cardiac symptoms 4+METS. He does not need any further cardiac testing for this low risk procedur e. Reviewed the risks and benefits with the patient he would like to proced with surgery. Problem Code: Z01.818; Problem Code Type: ICD-10; Not Available [facility] 3 05:30:35 Impacted cerumen in left ear 68771445112 79013 Completed 202009/30/2020 09/30/19 21 - Comments only - Tamia KISER - Flush performe d without complica tions Problem Code: H61.22; Problem Code Type: ICD-10; Not Available [facility] 3 05:30:35 Pain of left shoulder joint 91608951947 284272 Completed 202009/30/2020 09/30/19 21 - Comments only - Tamia KISER - Likely a strain or mild tendinop athy. Recommen ded rest heating pad and muscle rub. Stretche s as tolerate d. Problem Code: M25.512; Problem Code Type: ICD-10; Not Available [facility] 3 05:30:35 Pain of joint of knee 4459685361 Active 2020 Knee pain, chronic, b/l Vanita Martínez [facility], [facility] 4 10:53:38 Rheumati c mitral stenosis 51898991 Active 2020 mod 02/2024 [facility] [place] SRIKANTH TUTTLE MD [address], [place], [address] , [facility] 4 07:49:56 Screenin g for malignan t neoplasm of colon Completed 202004/21/2021 04/20/20 21 - Comments only - Tamia KISER - Referral to [facility] surgery for screenin g colonosc opy. Patient is overdue by 6 years. He denies hematoch ezia, melena and bowel changes. Problem Code: Z12.11; Problem Code Type: ICD-10; Not Available [facility] 3 05:30:36 Viral screenin g Completed 202110/19/2021 10/19/19 22 - Comments only - Tamia KISER - Hep C drawn today for screenin g purposes Problem Code: Z11.59; Problem Code Type: ICD-10; Not Available [facility] 3 05:30:36 Overweig ht 866737827 Active 2021 Vanita diallo [facility] 4 10:53:19 Pre-surg eri evaluati on Completed 202102/23/2022 02/23/20 22 - Comments only - Tamia KISER - /Catarac t patient s chronic medical issues are stable. His blood sugar is not optimal but stable enough for this procedur e. Recommen d routine perioper ative care for upcoming low risk procedur e. Problem Code: Z01.818; Problem Code Type: ICD-10; Not Available [facility] 3 05:30:36 Senile cataract 82858623 Completed 202102/23/2022 Problem Code: H25.9; Problem Code Type: ICD-10; Not Available [facility] 3 05:30:36 Coronary arterios clerosis 00460861 Completed 200109/06/2015 Not Available [facility] 3 05:30:36 Gastro-e sophagea l reflux disease with esophagi tis 429895778 Completed 200104/10/2023 Problem Code: 530.11; Problem Code Type: ICD-9; Not Available [facility] 3 05:30:37 Blood glucose outside referenc e range 867129038 Completed 200104/10/2023 Problem Code: R73.09; Problem Code Type: ICD-10; Not Available [facility] 3 05:30:37 Itching of skin 325974390 Completed 202011/10/2020 Problem Code: L29.9; Problem Code Type: ICD-10; Not Available [facility] 3 05:30:37 Glucose level outside referenc e range 747074302 Completed 200104/10/2023 Problem Code: 790.29; Problem Code Type: ICD-9; Not Available [facility] 3 05:30:37 Aortic valve disorder 0960469 Completed 201204/10/2023 Problem Code: 424.1; Problem Code Type: ICD-9; Not Available [facility] 3 05:30:37 Dysuria 38910093 Completed 202206/06/2023 Problem Code: R30.0; Problem Code Type: ICD-10; Not Available [facility] 4 05:36:43 Blood in urine 51114327 Active 2022 Vanita Martínez [facility], [facility] 4 10:52:20 Abdomina l pain 30487694 Active 2022 Flank pain, right Vanita Mauricio null, [facility] 4 10:51:41 Nocturia 290376137 Active 2022 Vanita Martínez null, [facility] 4 10:53:10 Inguinal hernia 565659084 Active 2022 right Vanita Mauricio null, [facility] 4 10:53:00 Lumbago with sciatica 158203148 Active [address], [place], [address] , [facility] 4 15:37:21 Lumbar spondylo sis with myelopat hy 87617612 Active [address], [place], [address] , [facility] 4 13:01:42 Acute non-ST segment elevatio n myocardi al infarcti on 477943567 Active 2023 R MAIL CLERK BILLS occlusio n and infarcti on associat ed w/ cardiac cath, s/p tPA Saskia Ramirez RN null, [facility] 4 16:06:53 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 051260457 Active 2023 s/p tPA [address], [place], [address] , [facility] 4 15:54:14 Right carotid artery stenosis 44258531796 9100 Active 2023 [place]50[place] [facility], [place], [address] , [facility] 4 07:50:29 Transcat heter aortic valve implanta tion Active [address], [place], [address] , [facility] 4 07:47:30 Congesti ve heart failure 82702102 Active 2023 Saskia Ramirez RN null, [facility] 4 09:11:03 Hypergly cemia due to type 2 diabetes mellitus 84235101318 9109 Active [address], [place], [address] , [facility] 12:13:33 Problem Notes None recorded. Procedures Surgical History Date Name Laterality Status Provider Name and Address Organization Details Recorded Time 02/23/20 24 cardiac catheterization completed [address], [facility] [address] [place] [address] 02/26/2024 10:29:14 06/13/20 20 replacement of aortic valve completed [address], [facility] [address] [place] [address] 07/03/2023 16:23:48 Appendectomy completed [address], [address] 07/03/2023 16:22:23 Tonsillectomy completed [address], [address] 07/03/2023 16:22:42 Cataract Surgery completed [address] Dr, [address] 07/03/2023 16:24:20 Cabg vein three completed [address], [facility] [address] [place] [address] 07/03/2023 16:24:28 Imaging Results None recorded. Procedure Notes None recorded. Medical Equipment None Reported. Allergies Allergen ID Allergen Name Allergen Category Reaction Reaction Severity Criticality Documentation Date Start Date Code Code System Note Provider Name and Address Organization Details Recorded Time 79568 ticlopidi ne medicatio n other moderate Not available 10/17/20232001 27029 RxNorm (Ticl id tabs) Vanita Martínez [facility] 10:54:55 17353 lisinopri l medicatio n cough Not available Not available 03/26/2024 80761 RxNorm JOJO HORNE RN null, [place] - [facility], [facility]. 14:09:37 Medications Name Sig Start Date Stop Date Status Note LastModified by Organization Details LastModified Time multivita min tablet Take 1 tablet by mouth once a day 03/23 completed Not Available Not Available Not Available amoxicill in 500 mg capsule TAKE FOUR CAPSULES BY MOUTH 1 HOUR PRIOR TO DENTAL PROCEDUR E 03/26 completed Not Available Not Available Not Available furosemid e 40 mg tablet TAKE ONE TABLET BY MOUTH EVERY DAY 03/26 completed Not Available Not Available Not Available metformin 500 mg tablet Take 1 by mouth twice daily 2014 active Not Available Not Available Not Avai lable atorvasta tin 80 mg tablet TAKE ONE TABLET BY MOUTH AT BEDTIME 03/26 completed Not Available Not Available Not Available aspirin 325 mg tablet take 1 tab daily 10/11 completed Not Available Not Available Not Available metoprolo l tartrate 100 mg tablet TAKE ONE TABLET BY MOUTH TWICE A DAY active Not Available Not Available No t Available glipizide ER 10 mg tablet, extended release 24 hr TAKE TWO TABLETS BY MOUTH EVERY DAY active Not Available Not Available No t Available lisinopri l 20 mg tablet Take 1 tab by mouth afternoo n, per Dr Lackey 09/29 completed Not Available Not Available Not Available isosorbid e mononitra te ER 30 mg tablet,ex tended release 24 hr TAKE ONE TABLET BY MOUTH EVERY DAY IN THE MORNING 03/26 completed Not Available Not Available Not Available sodium chloride 1 gram tablet Take 1 tablet 3 times a day by oral route. 03/23 completed [facility] discharg [facility] hosp. Not Available Not Available Not Available glipizide ER 5 mg tablet, extended release 24 hr Take 1 tab by mouth daily (take with 10mg glipizid e ER) 11/10 completed Not Available Not Available Not Available clopidogr el 75 mg tablet TAKE ONE TABLET BY MOUTH EVERY DAY 03/23 completed stopped per [facility] discharg e summary Not Available Not Available Not Available chlorthal idone 25 mg tablet Take 1 tab by mouth daily 10/[address] Lackey Not Available Not Available Not Available amlodipin e 5 mg tablet TAKE ONE TABLET BY MOUTH TWICE A DAY active Not Available Not Available No t Available sulfameth oxazole 800 mg-trimet hoprim 160 mg tablet TAKE ONE TABLET BY MOUTH TWICE A DAY 10/24 completed Not Available Not Available Not Available aspirin 81 mg tablet,de layed release Take 1 tablet by mouth once a day 03/23 completed [facility]osp[facility] discharg [facility] Not Available Not Available Not Available tramadol 50 mg tablet Take 1 tablet twice daily as needed for severe pain only active Not Available Not Available No t Available amoxicill in 500 mg tablet TAKE FOUR TABLETS BY MOUTH 1 HOUR PRE-OP 03/13 completed Not Available Not Available Not Available pantopraz ole 20 mg tablet,de layed release TAKE ONE TABLET BY MOUTH ONCE DAILY, BEFORE MEAL 03/02 completed dose increase Not Available Not Available Not Available Loprox 0.77 % topical gel cream twice daily 08/25 completed Not Available Not Available Not Available tamsulosi n 0.4 mg capsule TAKE ONE CAPSULE BY MOUTH AT BEDTIME active Not Available Not Available No t Available OneTouch Ultra Test strips TEST ONCE A DAY active Not Available Not Available No t Available glipizide ER 2.5 mg tablet, extended release 24 hr Take 1 tab by mouth daily 2016 active Not Available Not Available Not Avai lable cephalexi n 500 mg capsule Take 1 capsule every 8 hours by oral route for 7 days. 2023 active Not Available Not Available Not Avai lable pantopraz ole 40 mg tablet,de layed release TAKE ONE TABLET BY MOUTH EVERY DAY active Not Available Not Available No t Available metformin 1,000 mg tablet TAKE ONE TABLET BY MOUTH TWICE A DAY active Not Available Not Available No t Available lisinopri l 10 mg tablet TAKE ONE TABLET BY MOUTH EVERY DAY 12/15 completed Not Available Not Available Not Available losartan 25 mg tablet Take 1 tablet by mouth once a day 11/[address] Lackey Not Available Not Available Not Available metoprolo l tartrate 50 mg tablet TAKE ONE TABLET BY MOUTH TWICE A DAY 2017 active Not Available Not Available Not Avai lable nitroglyc alicia 0.4 mg sublingua l tablet PLACE ONE TABLET UNDER THE TONGUE EVERY 5 MINUTES FOR UP TO 3 DOSES NEEDED FOR CHEST PAIN. IF CHEST PAIN STILL PERSISTS CONTACT 911 active Not Available Not Available No t Available omeprazol e 20 mg capsule,d elayed release TAKE ONE CAPSULE BY MOUTH EVERY DAY active Not Available Not Available No t Available aspirin 81 mg tablet Take 1 tablet by mouth once a day 2020 active Not Available Not Available Not Avai lable furosemid e 20 mg tablet Take 3 tablets every day by oral route. active [facility] Not Available Not Available Not Available methylpre dnisolone 4 mg tablets in a dose pack TAKE DIRECTED PER PACKAGE INSTRUCT IONS, TAKE WITH FOOD 03/02 completed Not Available Not Available Not Available ketoconaz ole 2 % topical cream APPLY TO THE AFFECTED AREA(S) TOPICALL Y ONCE DAILY FOR 2 TO 4 WEEKS active Not Available Not Available No t Available oxybutyni n chloride 5 mg tablet TAKE ONE TABLET BY MOUTH TWICE A DAY 03/26 completed Not Available Not Available Not Available lisinopri l 40 mg tablet Take 1 tab by mouth morning, per Dr Lackey 09/29 completed Not Available Not Available Not Available multivita min capsule Take 1 tablet by mouth daily 2014 active Not Available Not Available Not Avai lable Therapeut ic Multivita mins capsule Take 1 tablet by mouth once a day 2014 active Not Available Not Available Not Avai lable ezetimibe 10 mg tablet TAKE ONE TABLET BY MOUTH EVERY DAY active Not Available Not Available No t Available cyclobenz aprine 5 mg tablet TAKE 1 TO 2 TABLETS BY MOUTH EVERY DAY AT BEDTIME NEEDED FOR PAIN 03/26 completed Not Available Not Available Not Available rosuvasta tin 20 mg tablet Take 1 tablet by mouth daily with 40mg dose per Dr Lackey 10/11 completed Not Available Not Available Not Available rosuvasta tin 40 mg tablet TAKE ONE TABLET BY MOUTH EVERY DAY IN THE EVENING active Not Available Not Available No t Available chlorhexi dine gluconate 0.12 % mouthwash RINSE WITH 1/2 OUNCE BY MOUTH AFTER BREAKFAS T AND BEFORE BEDTIME; DO NOT SWALLOW 07/26 completed Not Available Not Available Not Available omeprazol e 20 mg tablet,de layed release Take 1 tab by mouth daily. 12/15 completed Not Available Not Available Not Available OneTouch Delica Lancets 30 gauge test once daily. E11.9 11/14 completed Not Available Not Available Not Available Farxiga 10 mg tablet Take 1 tablet by mouth once a day 10/18 completed Not Available Not Available Not Available Jardiance 10 mg tablet TAKE ONE TABLET BY MOUTH EVERY DAY IN THE MORNING, WITH FULL GLASS OF WATER 07/26 completed Not Available Not Available Not Available Jardiance 25 mg tablet TAKE ONE TABLET BY MOUTH EVERY MORNING WITH A FULL GLASS OF WATER 10/24 completed Not Available Not Available Not Available Entresto 24 mg-26 mg tablet Take 1 tablet by mouth twice a day active per Dr Lackey: 06/01/22 -Pt is enrolled and approved in [email or web address] Pt assistan ce program through [employer]. Not Available Not Available Not Available Ozempic 0.25 mg or 0.5 mg (2 mg/1.5 mL) subcutane ous pen injector Inject 0.5mg subcutan eously once a week 2021 active P t is approved and enrolled in [employer] Pt assistan ce program, through [employer] Not Available Not Available Not Available OneTouch Ultra2 Meter 1 Meter to test daily E11.9 10/11 completed Not Available Not Available Not Available OneTouch Delica Plus Lancet 33 gauge USE ONE DAILY DIRECTED active Not Available Not Available No t Available Ozempic 1 mg/dose (4 mg/3 mL) subcutane ous pen injector Inject 1 mg subcutan eously once a week 07/20 completed Not Available Not Available Not Available Vitals Date Recorded Body height Body mass index (BMI) Body weight Oxygen saturation Oxygen saturation in Arterial blood by Pulse oximetry Heart rate Systolic blood pressure Diastolic blood pressure Provider Name and Address Organization Details Last Updated DateTime 4 168.91 cm 27 kg/m2 72516.3 8 g 95 % 95 % 81 /min 128 mm[Hg] 62 mm[Hg] Parker Farmer RN [place] - [facility] 10:25:39 Social History Question Answer Notes LastModified by Organizat ion Details LastModified Time Tobacco Smoking Status Never Smoker CORIE ACUNA, [facility]. 07/26/2023 08:35:54 1) Date Of Last VPMS Check? 02/21/2024 Information not available 02/21/2024 2) VPMS Findings No Concerns Information not available 02/21/2024 4) Daily MME 20.0 Information not available 02/21/2024 3) Date Of Last Contract: 02/21/2024 Acute Pain Information not available 02/21/2024 5) Date Of Last UDS 02/21/2024 Information not available 02/21/2024 6) Informed Consent Date 02/21/2024 Information not available 02/21/2024 Date Care Plan Printed: 01/09/2024 Information not available 01/09/2024 Assigned Sexual Assault Social Worker: Sylvia Dowell Information not available 01/09/2024 Is [facility] The Lead Sexual Assault Social Worker? Yes Information not available 01/09/2024 Level Of Intensity: Quarterly Information not available 01/09/2024 Team Based Care: Yes Information not available 01/09/2024 Other Barriers To Care (See Note) Yes Denies Language Barrier: Ivorian Is Primary Language, But He Speaks & Reports Reads Russian Well Information not available 01/09/2024 Last Care Team Meeting 05/23/2023 Information not available 01/09/2024 Financial Barrier Yes Limited Income; Eligible For Medication Patient Assistance Programs (Cardiac & Diabetes Meds) Information not available 01/09/2024 Behavioral Health Yes Information not available 01/09/2024 Community Repairer [employer] Yes Information not available 01/09/2024 Dental Services Yes Informati on not available 01/09/2024 Diabetes Education Yes Information not available 01/09/2024 Medication Assistance Yes Information not available 01/09/2024 Social Security/Disabi lity Yes Information not available 01/09/2024 Diabetes Self Management Program Yes Info Provided; Declines Information not available 01/09/2024 Diabetes Support Group Yes Info Provided; Declines Information not available 01/09/2024 Health Talent Acquisition Director For HTN Control Yes Info Provided; Declines Information not available 01/09/2024 Metal Furniture Glazier On Aging Yes Information not available 01/09/2024 Providers Yes Information no t available 01/09/2024 What Was The Date Of Your Most Recent Tobacco Screening? 02/07/2024 Information not available 02/07/2024 Has Tobacco Cessation Counseling Been Provided? No Information not available 02/07/2024 Sex: Male Functional Status None recorded. Mental Status None recorded. Family History Relationship Description Onset Age of this Age Resolved Age Notes Mother Family history of acute medical disorder Parkinson 's Father Family history of heart failure Notes:*Problem: FAMILY HX: M other at age 80 of Parkinson's. Father age 46 of an AK. he has 3 brothers, one w/ CAD, and 2 sisters, one w/ MS and CAD. Medical History No medical history recorded. Immunizations Vaccine Type Date Status Provider Name and Address Organization Details Recorded Time COVID-19, mRNA, LNP-S, PF, oly-sucrose, 30 mcg/0.3 mL 10/25/[address], [place], [address], [facility] 10/25/2023 10:10:11 Td (adult), 2 Lf tetanus toxoid, preservative free, adsorbed 09/09/2018 completed Not Available [facility] 05/24/2023 05:17:56 Tdap 05/31/2009 completed Not Available [facility] 05:17:56 zoster live 02/01/2014 completed Not Available [facility] 05/24/2023 05:17:56 Pneumococcal conjugate PCV 13 07/12/2015 completed Not Available [facility] 05/24/2023 05:17:57 Influenza, split virus, trivalent, preservative 05/20/2015 completed Not Available [facility] 05/24/2023 05:17:57 Influenza, split virus, trivalent, preservative 05/29/2016 completed Not Available [facility] 05/24/2023 05:17:57 Influenza, split virus, quadrivalent, PF 04/28/2019 completed Not Available [facility] 05/24/2023 05:17:57 Influenza, split virus, quadrivalent, PF 04/29/2020 completed Not Available [facility] 05/24/2023 05:17:57 Influenza, split virus, quadrivalent, preservative 06/03/2018 completed Not Available [facility] 05/24/2023 05:17:57 Influenza, high-dose, quadrivalent, PF 04/20/2021 completed Not Available [facility] 05/24/2023 05:17:57 Influenza, high-dose, quadrivalent, PF 04/26/2022 completed Not Available [facility] 05/24/2023 05:17:57 COVID-19, mRNA, LNP-S, PF, 100 mcg/0.5mL dose or 50 mcg/0.25mL dose 09/15/2020 completed Not Available [facility] 05/24/2023 05:17:57 COVID-19, mRNA, LNP-S, PF, 100 mcg/0.5mL dose or 50 mcg/0.25mL dose 10/13/2020 completed Not Available [facility] 05/24/2023 05:17:57 SARS-COV-2 (COVID-19) vaccine, UNSPECIFIED 05/15/2021 completed Not Available [facility] 05/24/2023 05:17:57 COVID-19, mRNA, LNP-S, bivalent, PF, 30 mcg/0.3 mL dose 05/02/2022 completed Not Available [facility] 05/24/20 05:17:58 pneumococcal polysaccharide PPV23 08/22/2010 completed Not Available [facility] 2022 05:17:58 pneumococcal polysaccharide PPV23 08/29/2016 completed Not Available [facility] 2022 05:17:58 Hep B, unspecified formulation 11/21/2012 completed Not Available [facility] 05/24/2023 05:17:58 Influenza, high-dose, quadrivalent, PF 05/03/2023 completed Not Available [facility] 07/26/2023 05:31:29 Past Encounters Encounter ID Performer Location Encounter Start Date Encounter Closed Date Diagnosis/Indication Diagnosis SNOMED-CT Code Diagnosis ICD10 Code [id number] TAMIA [address] [address] 01/31/2024 15:01:16 01/31/2024 15:49:17 Lumbago with sciatica 628917764 M54.42 [id number] [address]AMIA [address] [address] 02/07/2024 08:35:45 02/07/2024 09:48:10 Type 2 diabetes mellitus without complication 416691518 E11.9 Lumbago with sciatica 9704932 M54.42 Tinea pedis 5030280 B35. 3 [id number] [address] [address] 02/21/2024 10:07:06 02/21/2024 10:54:17 Lumbar spondylosis with myelopathy 38029588 M47.16 Goals Section Goal Description Status Start Date LastModified by Organization Details LastModified Time Hemoglobin A1C Lowers or maintains hemoglobin A1C (HbA1c) as per care team recommendation (s) [TARGET: less than or equal to 7%]; Avoid Insulin start Goal not achieved SYLVIA BLINDOW Information not available 01/09/2024 17:57:16 Keep Medication Costs down Follows medication regimen as per care team recommendation (s) keeping medication costs to a minimum. Goal not achieved SYLVIA BLINDOW Information not available 01/09/2024 17:59:07 More Care Coordination &/or Support Services Improve Care Coordination with Primary Care Provider (PCP), Specialist(s), Care Team, &/or Support Services. Goal not achieved SYLVIA BLINDOW Information not available 01/09/2024 18:24:46 Health Concerns Section Related Observation LastModified by Organization Detai ls LastModified Time None Recorded Concern Status LastModified by Organization Details LastModified Time None Recorded Payers Encounter Date Sequence Insurance Name Policy Number Policy Michele Covered Member ID Michele Member ID Guarantor Name 02/21/2024 1 [facility] (MEDICARE REPLACEMENT HMO) [id number] Johnson Tobar [id number] Johnson Tobar Notes Date Note Type Note Provider Name and Address Organization Details Recorded Time 02/21/2024 text/html HPI Notes: 73-year-old male patient presents with low back pain and left leg pain. The patient is a 73-year-old male with a diagnosis of lumbar spondylosis with myelopathy. The condition started with low back pain and progressed to include pain radiating down the left leg. The patient has tried two rounds of medrol dose alexsander which provided some relief, and has also been taking cyclobenzaprine to help with the pain. The pain has been a little bit better in the last three to four days, but the patient still experiences symptoms in the left leg. A referral to a spine center has been sent to [facility] 3 days ago, but the patient has not heard about scheduling yet as to be expected. 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 denies saddle anesthesia, foot drop, fevers and loss of bowel/bladder control. [address], [place], [address], [facility]. 02/21/2024 13:31:14
--- OUTSIDE RECORDS SUMMARY | 2024-03-26 15:48 | XMS_ITS ---
Author Organization Unknown Address [address] [place] [phone] Phone Care Team Providers Care Lead Oracle Developer Name Role Phone AVERY Tobias Attending Unavailable [...] Diagnosis Start Date Code Code Sys tem 10/14/2023 [id number] SNOMED-CT Personal Care Team Section Performer Name Performer Role Active Date Inactive Da te
--- OUTSIDE RECORDS SUMMARY | 2024-03-26 15:48 | XMS_ITS ---
Author Organization Unknown Address [address] [place] [phone] Phone Care Team Providers Care Outside Sales Representative Name Role Phone AVERY Tobias Attending Unavailable [...] Diagnosis Start Date Code Code Sys tem 08/13/2023 [id number] SNOMED-CT Personal Care Team Section Performer Name Performer Role Active Date Inactive Da te
--- OUTSIDE RECORDS SUMMARY | 2024-03-26 15:48 | XMS_ITS ---
Author Organization Unknown Address [address] [place] [address] [phone] Phone Care Team Providers Care Principal Ios Developer Name Role Phone AVERY Tobias Attending [...] Diagnosis Start Date Code Code Sys tem 12/25/2023 [id number] SNOMED-CT Personal Care Team Section Performer Name Performer Role Active Date Inactive Da te
--- OUTSIDE RECORDS SUMMARY | 2024-03-26 15:49 | XMS_ITS | Continuity of Care Document ---
Author Organization [place] - [facility], [facility] Address [address] [place] [address] Care Team Providers Care Recreation Programmer Name Role Phone TAMIA TAYLOR Primary Care Provider [phone] MATEO GLASS Plating Department Helper DOWELL KATHLEEN Tomb Maker Helper DELPHINE OLSEN Community Health Worker WINTER LACKEY DEISY WALDEN Manager Testing/Production Tech [facility] WAISTLINE JOINER LOCKSTITCH-RAJEEV LEVIN Manager Testing/Nutritioni st BURT DASILVA Dentist [phone] ANTONIA FARRIS [facility] [phone] Assessment Encounter Date Assessment Date Assessment LastModified by Organization Details LastModified Time 02/07/2024 02/07/2024 The patient, a 73-year-old male, presents with concerns about his diabetes, left lower back pain, leg pain and weakness, and a possible fungal infection on his right foot. His most recent A1c was 7.5, up from 7.1 in his last visit, but the patient is managing his diabetes well. The patient has persistent left lower back pain, which radiates to his left leg and causes weakness and occasional instability. The pain has not improved much with steroids, muscle relaxers, and heat/cold therapy. An x-ray revealed significant arthritis in the left lower back, and the patient is awaiting physical therapy and an MRI. Not available 02/07/2024 10:11:40 Plan of Treatment Reminders Order Date Submit Date Provider Last Modified By Organization Details Last Modified Time Details Appointments hospital follow up 2023 02:10P M Not available Not available Not available Follow Up 30 2023 11:30A M Not available Not available Not available Lab hemoglobi n A1C, fingersti ck 2023 [facility], [address], [place], [address], 02/07/2024 09:17:18 Referral None recorded. Procedures None recorded. Surgeries None recorded. Imaging None recorded. Medication Orders Medrol (Jacky) 4 mg tablets in a dose pack 2023 [facility], [address] [place], [address], 03/02/2024 16:11:03 cyclobenz aprine 5 mg tablet 2023 [facility] [address], [address] [place], [address], 03/26/2024 14:10:23 ketoconaz ole 2 % topical cream 2023 [facility] [address], [address] [place], [address], 02/07/2024 09:12:59 Patient TargetsNo targets recorded. Patient Instructions Encounter Date Encounter Id Patient Instructions Last Modified By Organization Details Last Modified Time 02/07/2024 [id number] You have been started on {{prednisone a prednisone taper methylpredn isone (medrol dose jacky)*}}. Take as instructed on the bottle. While on prednisone you can feel hungry, thirsty, energized (take in the morning with food) and can affect mood. It is important to avoid NSAIDs (ie ibuprofen, aleve, advil, naproxen etc) while on prednisone. You can take tylenol/acetamino phen if needed for pain relief. You have been prescribed cyclobenzaprine. Take as directed on the bottle. This medication can make you drowsy or dizzy. Do not drive or operate heavy machinery while on this medication. It is okay to take it just at bedtime if you need to drive during the day. ketoconazole cream to right foot once daily for 2-4 weeks Call with any questions or concerns [email or web address] Not available 02/07/2024 09:14:39 Reason for Referral Urologist Referral for Prost ate specific antigen above reference range elevated PSA 8.7 and nocturia. recently treated for cystitis. Referring Physician: Tamia Taylor [facility] Medicine, Encounter Date: 05/28/2023 Physical Therapist Referral for Lumbago with sciatica Referring Physician: Tamia Taylor [facility] Medicine, Encounter Date: 01/31/2024 Spine Center Referral for Edilia mbar spondylosis with myelopathy [facility] Referral Referring Physician: Tamia Taylor [facility] Medicine, Encounter Date: 02/18/2024 Results Created Date Observation Date Name Description Value Unit Range Abnormal Flag Note LastModifiedBy Organization Detail LastModifiedTime 02/07/20 24 02/07/2024 hemog lobin A1C, finge rstic k hemoglobin A1C 7.5 % <5.[address] [facility] [address] [facility] [address], [place], [address], 02/07/2024 08:53:37 01/31/20 24 01/31/2024 XR, lumba r spine [...] by: William Bryant On 2023 16:53: 31 [email or web address] [facility] Xray [address], [place], [address], 02/04/2024 08:35:54 02/16/2002/14/2024 MR LS spine wo contr ast ABNORM [...] signif icant thecal sac compre ssion. L2-L3: Health Education Coordinator ior osteop hyte disc comple x with bilate ral facet joint arthro rober and ligame ntum flavum hypert rophy causin g modera te thecal sac compre ssion and modera te narrow ing of both neural forami na. L3-L4: Health Education Coordinator ior osteop hyte disc comple x with bilate ral facet joint arthro rober and ligame ntum flavum hypert rophy causin g modera te thecal sac compre ssion and modera te narrow ing of both neural forami na. There is a right forami nal disc protru celestino. L4-L5: Health Education Coordinator ior osteop hyte disc comple x with bilate ral facet joint arthro rober and ligame ntum flavum hypert rophy causin g severe thecal sac compre ssion and modera te narrow ing of both neural forami na, more on the right side. L5-S1: Health Education Coordinator ior osteop hyte disc comple x with [...] by: Anthony Camilo On 2023 11:18: [email or web address], [place], [address], 02/18/2024 12:57:36 02/23/2002/23/2024 XR, chest , 1 view PROCED URE [...] by: Sheeba Yang On 2023 10:36: [address] [place], [address], 02/23/2024 21:53:44 03/09/20 24 03/09/2024 CT, head [...] by: Dorina Mojica On 2023 07:05: 23 [email or web address] [facility] [address], [place], [address], 03/09/2024 10:07:54 03/09/20 24 03/09/2024 XR, chest , 1 view PROCED URE INFORM ATION: Exam: XR Chest Exam date and time: 6:22 AM Age: 73 years old Clinic al indica tion: AMS TECHNI QUE: Imagin g protoc ol: Radiol ogic exam of the chest. Views: 1 view. COMPAR NGOC: CR XR CHEST 1 VW 9:22 AM FINDIN GS: Lungs: Patchy perihi [...] Dorina Mojica On 2023 07:06: 40 [email or web address] [facility] [address] , [place], [address], 03/09/2024 10:07:54 03/10/20 24 03/10/2024 MRI, brain , w/o contr ast CRITIC AL FINDIN G PROCED URE INFORM ATION: Exam: MR Head Withou t Contra st Exam date and time: 024 2:38 PM Age: 73 years old Clinic [...] hemosi christopher staini ng in the right firm administrator ior mesial tempor al lobe involv ing hippoc ampus as well as subacu te methem oglobi n in the firm administrator ior thalam us. There is minima l [...] l right thalam us and adjace nt firm administrator ior limb of web design intern al capsul e which is theref ore [...] to chroni c infarc t in right firm administrator ior mesial tempor al lobe with both subacu te and chroni c hemorr sylvain. Additi onal area of subacu te hemorr sylvain in the right firm administrator ior thalam us. 2. Separa te area of restri cted diffus ion and acute to subacu te infarc t withou t hemorr sylvain in right latera l thalam us and adjace nt firm administrator ior limb of web design intern al capsul e. Report signed by: Diana Riddle eyer On 2023 15:41: [address], [place], [address], 03/10/2024 16:49:36 03/11/20 24 03/11/2024 XR, chest , 1 view ABNORM AL FINDIN G PROCED URE INFORM ATION: Exam: XR Chest Exam date and time: 1:17 AM Age: 73 years old Clinic [...] joints : Sterno montez. Old, healed right firm administrator ior 8th rib fractu re. IMPRES CELESTINO: Increa sing pulmon pao venous conges tion and edema in the upper lungs. Report signed by: Robin Angel On 2023 02:07: 09 [facility] [address], [place], [address], 03/12/2024 10:31:05 03/11/20 24 03/10/2024 MRI, brain , w/o contr ast CRITIC AL FINDIN G Addend um create d by Diana byers MD on 7:02:3 6 AM EDT: MOISES reyna ed report and has no questi ons. Also, techno logist replie d that [facility] has seen report . Initia l report [...] NGOC: CT HEAD/B RAIN WO CONTRA ST 6:35 AM FINDYAYO GS: Brain: There is very small linear chroni c infarc t in left cerebe llar hemisp here. There is mixtur e of subacu te methem oglobi n chroni c hemosi christopher staini ng in the right firm administrator ior mesial tempor al lobe involv ing hippoc ampus as well as subacu te methem oglobi n in the firm administrator ior thalam us. There is minima l [...] l right thalam us and adjace nt firm administrator ior limb of web design intern al capsul e which is theref ore [...] to chroni c infarc t in right firm administrator ior mesial tempor al lobe with both subacu te and chroni c hemorr sylvain. Additi onal area of subacu te hemorr sylvain in the right firm administrator ior thalam us. 2. Separa te area of restri cted diffus ion and acute to subacu te infarc t withou t hemorr sylvain in right latera l thalam us and adjace nt firm administrator ior limb of web design intern al capsul e. Report signed by: Diana Riddle eyer On 2023 07:02: [address], [place], [address], 03/12/2024 10:31:04 03/11/20 24 03/10/2024 MRI, brain , w/o contr ast CRITIC AL FINDIN G Addend um create d by Diana byers MD on 2:37:4 7 PM EDT: COMPAR NGOC MORE: MR BRAIN WO CONTRA ST 2:08 PM As noted there is minima l residu al linear cortic al restri cted diffus ion in the right hippoc ampus and previo usly there was signif icant restri cted diffus ion in the medial and firm administrator ior right tempor al lobe which has nearly resolv ed except for the 2 small linear areas. This theref ore is consis tent with subacu te to chroni c infarc t at this time. The area of subacu te hemorr sylvain in the firm administrator ior aspect of the thalam us is locate d in area acute to subacu te infarc t in the right firm administrator ior thalam us on prior examin ation. Restri cted diffus ion in this locati on has resolv ed. Addend um create d by Diana byers MD on 7:02:3 6 AM EDT: MOISES reyna ed report and has no questi ons. Also, techno logist replie d that [facility] has seen report . Initia l report [...] NGOC: CT HEAD/B RAIN WO CONTRA ST 6:35 AM FINDIN GS: Brain: There is very small linear chroni c infarc t in left cerebe llar hemisp here. There is mixtur e of subacu te methem oglobi n chroni c hemosi christopher staini ng in the right firm administrator ior mesial tempor al lobe involv ing hippoc ampus as well as subacu te methem oglobi n in the firm administrator ior thalam us. There is minima l [...] l right thalam us and adjace nt firm administrator ior limb of web design intern al capsul e which is theref ore [...] to chroni c infarc t in right firm administrator ior mesial tempor al lobe with both subacu te and chroni c hemorr sylvain. Additi onal area of subacu te hemorr sylvain in the right firm administrator ior thalam us. 2. Separa te area of restri cted diffus ion and acute to subacu te infarc t withou t hemorr sylvain in right latera l thalam us and adjace nt firm administrator ior limb of web design intern al capsul e. Report signed by: Diana Riddle eyer On 2023 14:37: 47 [email or web address] [facility] [address] , [place], [address], 03/12/2024 10:31:04 03/11/20 24 03/11/2024 CT, head + brain , w/o contr ast ABNORM AL FINDIN G PROCED URE INFORM ATION: Exam: CT Head Withou t Contra st Exam date and time: 024 4:56 PM Age: 73 years old Clinic [...] COMPAR NGOC: MR BRAIN WO CONTRA ST 024 2:38 PM FINDIN GS: Brain: Redemo nstrat ion of small subacu te to early chroni c infarc t involv ing the right hippoc ampus. Trace hyperd ensity along the firm administrator ior aspect of the right thalam us and along the firm administrator omedia l right hippoc ampus may correl [...] tissue s are unrema rkable . IMPRES CELESTINO: 1. Redemo nstrat ion of small subacu te to early chroni c infarc t involv ing the right hippoc ampus. 2. Trace hyperd ensity along the firm administrator ior aspect of the right thalam us and along the firm administrator omedia l right hippoc ampus may correl ate with areas of microh emorrh age as demons trated on prior MRI. 3. Other chroni c findin gs, as above. Report signed by: Daniel Stanton On 2023 17:14: [address], [place], [address], 03/11/2024 18:42:20 03/12/20 24 03/12/2024 US extre mity lower venou s ar EXAM: BILATE RAL LEG ULTRAS OUND RIS EXAM DATE/T CARTIO: 2023 00:00 INDICA TION: Edema There is [...] REPORT 024 4:27 PM: ANALILIA SAUNDERS M.D. [address], [place], [address], 03/12/2024 18:10:18 03/17/20 24 03/17/2024 XR, chest , 1 view ABNORM AL FINDIN G PROCED URE INFORM ATION: Exam: XR Chest Exam date and time: 03/17/20 24 10:07 AM Age: 73 years old Clinic al indica tion: Cough and SOB TECHNI QUE: Imagin g protoc ol: Radiol ogic exam of the chest. Views: 1 view. COMPAR NGOC: CR XR CHEST 1 VW 03/11/2 024 1:17 AM FINDIN GS: Lungs: Multif [...] by: Kaye Mccabe On 2023 10:21: 41 [facility] [address], [place], [address], 03/17/2024 11:49:43 Result Notes None recorded. Problems Name Problem SNOMED Code Status Onset Date Resolution Date Notes Provider Name and Address Organization Details Recorded Time Hyperlip idemia 65209753 Active 2001 [facility]. 4 10:52:48 Gastroes ophageal reflux disease without esophagi tis 815615924 Active 2001 [facility] 4 10:52:40 Aortic stenosis , non-rheu matic 984363171 Active 2012 [facility]. 4 10:51:50 Type 2 diabetes mellitus without complica tion 701178976 Completed 200103/24/[address], [place], [address] , [facility] 4 12:13:19 Atherosc lerosis of coronary artery without angina pectoris 26347481230 4103 Active 2001 CAD [facility]. 4 10:52:05 Essentia l hyperten celestino 09093728 Active 2014 [facility] 4 10:52:32 Posterio r rhinorrh ea 27797197 Completed 201607/11/2017 05/30/20 17 - Comments only - Binu Cortes PA-C - Recommen d trial nasal saline. Follow-u p if not improved . Problem Code: R09.82; Problem Code Type: ICD-10; Not Available [facility] 3 05:30:35 Pre-surg eri evaluati on Completed [...] Z01.818; Problem Code Type: ICD-10; Not Available [facility] 3 05:30:35 Impacted cerumen in left ear 97494924070 02327 Completed 202009/30/2020 09/30/19 21 - Comments only - Tamia KISER - Flush performe d without complica tions Problem Code: H61.22; Problem Code Type: ICD-10; Not Available [facility] 3 05:30:35 Pain of left shoulder joint 55860524559 381888 Completed 202009/30/2020 09/30/19 21 - Comments only - Tamia KISER - Likely a strain or mild tendinop athy. Recommen ded rest heating pad and muscle rub. Stretche s as tolerate d. Problem Code: M25.512; Problem Code Type: ICD-10; Not Available [facility] 3 05:30:35 Pain of joint of knee 1480913594 Active 2020 Knee pain, chronic, b/l Vanita diallo, [place] [facility]. 4 10:53:38 Rheumati c mitral stenosis 98016455 Active 2020 mod 02/2024 [facility] echo SRIKANTH TUTTLE MD [address], [place], [address] , [place] [facility]. 4 07:49:56 Screenin g for malignan t neoplasm of colon Completed 202004/21/2021 04/20/20 21 - Comments only - Tamia KISER - Referral to [facility] general surgery for screenin g colonosc opy. Patient is overdue by 6 years. He denies hematoch ezia, melena and bowel changes. Problem Code: Z12.11; Problem Code Type: ICD-10; Not Available [facility] 3 05:30:36 Viral screenin g Completed 202110/19/2021 10/19/19 22 - Comments only - Tamia KISER - Hep C drawn today for screenin g purposes Problem Code: Z11.59; Problem Code Type: ICD-10; Not Available [facility] 3 05:30:36 [place] ht 855631331 Active 2021 ALIX Alcala - [facility] 4 10:53:19 Pre-surg eri evaluati on Completed 202102/23/2022 02/23/20 22 - Comments only - Tamia KISER - /Catarac t patient s chronic medical issues are stable. His blood sugar is not optimal but stable enough for this procedur e. Recommen d routine perioper ative care for upcoming low risk procedur e. Problem Code: Z01.818; Problem Code Type: ICD-10; Not Available [facility] 3 05:30:36 Senile cataract 30716677 Completed 202102/23/2022 Problem Code: H25.9; Problem Code Type: ICD-10; Not Available [facility] 3 05:30:36 Coronary arterios clerosis 15647870 Completed 200109/06/2015 Not Available [facility] 3 05:30:36 Gastro-e sophagea l reflux disease with esophagi tis 801010023 Completed 200104/10/2023 Problem Code: 530.11; Problem Code Type: ICD-9; Not Available [facility] 3 05:30:37 Blood glucose outside referenc e range 862704223 Completed 200104/10/2023 Problem Code: R73.09; Problem Code Type: ICD-10; Not Available [facility] 3 05:30:37 Itching of skin 797178247 Completed 202011/10/2020 Problem Code: L29.9; Problem Code Type: ICD-10; Not Available [facility] 3 05:30:37 Glucose level outside referenc e range 665501248 Completed 200104/10/2023 Problem Code: 790.29; Problem Code Type: ICD-9; Not Available [facility] 3 05:30:37 Aortic valve disorder 5715878 Completed 201204/10/2023 Problem Code: 424.1; Problem Code Type: ICD-9; Not Available [facility] 3 05:30:37 Dysuria 59499221 Completed 202206/06/2023 Problem Code: R30.0; Problem Code Type: ICD-10; Not Available [facility] 4 05:36:43 Blood in urine 51374187 Active 2022 Vanita Mauricio [facility], [facility] 4 10:52:20 Abdomina l pain 15308700 Active 2022 Flank pain, right [facility], [facility] 4 10:51:41 Nocturia 426285143 Active 2022 Vanita Mauricio null, [facility] 4 10:53:10 Inguinal hernia 624946861 Active 2022 right Vanita Mauricio null, [facility] 4 10:53:00 Lumbago with sciatica 315389896 Active [address], [place], [address] , [facility]. 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 016724519 Active 2023 s/p tPA [address], [facility] [address] , [facility] 4 15:54:14 Right carotid artery stenosis 65037824283 9100 Active 2023 ulysses <50% [facility] 02/[address], [facility] [address] , [facility] 4 07:50:29 Transcat heter aortic valve implanta tion Active [address], [facility] [address] , [facility] 4 07:47:30 Congesti ve heart failure 08941957 Active 2023 Saskia Ramirez RN null, [facility] 4 09:11:03 Hypergly cemia due to type 2 diabetes mellitus 01128114160 9109 Active [address], [facility] [address] , [facility] 4 12:13:33 Problem Notes None recorded. Procedures Surgical History Date Name Laterality Status Provider Name and Address Organization Details Recorded Time 02/23/20 24 cardiac catheterization completed [address], [facility] [address], [facility] 02/26/2024 10:29:14 06/13/20 20 replacement of aortic valve completed [address], [facility] [address], [facility] 07/03/2023 16:23:48 Appendectomy completed [address], [facility] [address], [facility] 07/03/2023 16:22:23 Tonsillectomy completed [address], [facility] [address] [place] [address] 07/03/2023 16:22:42 Cataract Surgery completed [address], [facility] [address], [facility] 07/03/2023 16:24:20 Cabg vein three completed [address], [facility] [address], [facility] 07/03/2023 16:24:28 Imaging Results None recorded. Procedure Notes None recorded. Medical Equipment None Reported. Allergies Allergen ID Allergen Name Allergen Category Reaction Reaction Severity Criticality Documentation Date Start Date Code Code System Note Provider Name and Address Organization Details Recorded Time 94141 ticlopidi ne medicatio n other moderate Not available 10/17/20232001 07763 RxNorm (Ticl id tabs) Vanita Martínez [facility], [facility] 4 10:54:55 00313 lisinopri l medicatio n cough Not available Not available 03/26/2024 39107 RxNorm JOJO HORNE RN [facility] acute hospital 14:09:37 Medications Name Sig Start Date Stop [...] a day by oral route. 03/23 completed [facility]. Not Available Not Available Not Available glipizide ER 5 mg tablet, extended release 24 hr Take 1 tab by mouth daily (take with 10mg glipizid e ER) 11/10 completed Not Available Not Available Not Available clopidogr el 75 mg tablet TAKE ONE TABLET BY MOUTH EVERY DAY 03/23 completed stopped per [facility] summary Not Available Not Available [...] Not Available Not Available Not Available OneTouch Delaissatou Lancets 30 gauge test once daily. E11.9 [...] 06/01/22 -Pt is enrolled and approved in [employer] Pt assistan ce program through Meghan Dias. Not Available Not Available Not Available Ozempic 0.25 mg or 0.5 mg (2 mg/1.5 mL) subcutane ous pen injector Inject 0.5mg subcutan eously once a week 2021 active P t is approved and enrolled in [facility] [employer] Pt assistan ce program, through Meghan Dias Not Available Not Available Not Available OneTouch [...] Arterial blood by Pulse oximetry Heart rate Body temperature Systolic blood pressure Diastolic blood pressure Provider Name and Address Organization Details Last Updated DateTime 4 168.91 cm 26.9 kg/m2 85080.7 8 g 96 % 96 % 59 /min 96.6 [degF] 132 mm[Hg] 72 mm[Hg] Parker Farmer RN [facility] 4 08:49:21 Social History Question Answer Notes LastModified by Organizat ion Details LastModified Time Tobacco Smoking Status Never Smoker LILLY MAJANO MA null, [facility] 07/26/2023 08:35:54 1) Date Of Last VPMS [...] Printed: 01/09/2024 Information not available 01/09/2024 Assigned Technical Internship: Sylvia Dowell Information not available 01/09/2024 Is [facility] The Lead Technical Internship? Yes Information not available 01/09/2024 Level Of Intensity: Quarterly Information not available 01/09/2024 Team Based Care: Yes Information not available 01/09/2024 Other Barriers To Care (See Note) Yes Denies Language Barrier: Algerian Is Primary Language, But He Speaks & Reports Reads Argentine Well Information not available 01/09/2024 Last Care Team Meeting 05/23/2023 Information not available 01/09/2024 Financial Barrier Yes Limited Income; Eligible For Medication Patient Assistance Programs (Cardiac & Diabetes Meds) Information not available 01/09/2024 Behavioral Health Yes Information not available 01/09/2024 Community Oil Truck Driver Yes Information not available 01/09/2024 Dental Services Yes Informati on not available 01/09/2024 Diabetes Education Yes Information not available 01/09/2024 Medication Assistance Yes Information not available 01/09/2024 Social Security/Disabi lity Yes Information not available 01/09/2024 Diabetes Self Management Program Yes Info Provided; Declines Information not available 01/09/2024 Diabetes Support Group Yes Info Provided; Declines Information not available 01/09/2024 Health Mold Repairer For HTN Control Yes Info Provided; Declines Information not available 01/09/2024 Bakery Manager On Aging Yes Information not available 01/09/2024 [...] of Parkinson's. Father age 46 of an ME. he has 3 brothers, one w/ CAD, and 2 sisters, one w/ MS and CAD. Medical History No medical history recorded. Immunizations Vaccine Type Date Status Provider Name and Address Organization Details Recorded Time COVID-19, mRNA, LNP-S, PF, oly-sucrose, 30 mcg/0.3 mL 10/25/[address], [place], [address], [facility] 10/25/2023 10:10:11 Td (adult), 2 Lf tetanus toxoid, preservative free, adsorbed 09/09/2018 completed Not Available [facility] 05/24/2023 05:17:56 Tdap 05/31/2009 completed Not Available [facility] 05:17:56 zoster live 02/01/2014 completed Not Available [facility] 05/24/2023 05:17:56 Pneumococcal conjugate PCV 13 07/12/2015 completed Not Available [facility] 05/24/2023 05:17:57 Influenza, split virus, trivalent, preservative 05/20/2015 completed Not Available [facility] 05/24/2023 05:17:57 Influenza, split virus, trivalent, preservative 05/29/2016 completed Not Available [facility] 05/24/2023 05:17:57 Influenza, split virus, quadrivalent, PF 04/28/2019 completed Not Available [facility] 05/24/2023 05:17:57 Influenza, split virus, quadrivalent, PF 04/29/2020 completed Not Available [facility] 05/24/2023 05:17:57 Influenza, split virus, quadrivalent, preservative 06/03/2018 completed Not Available [facility] 05/24/2023 05:17:57 Influenza, high-dose, quadrivalent, PF 04/20/2021 completed Not Available [facility] 05/24/2023 05:17:57 Influenza, high-dose, quadrivalent, PF 04/26/2022 completed Not Available [facility] 05/24/2023 05:17:57 COVID-19, mRNA, LNP-S, PF, 100 mcg/0.5mL dose or 50 mcg/0.25mL dose 09/15/2020 completed Not Available [facility] 05/24/2023 05:17:57 COVID-19, mRNA, LNP-S, PF, 100 mcg/0.5mL dose or 50 mcg/0.25mL dose 10/13/2020 completed Not Available [facility] 05/24/2023 05:17:57 SARS-COV-2 (COVID-19) vaccine, UNSPECIFIED 05/15/2021 completed Not Available [facility] 05/24/2023 05:17:57 COVID-19, mRNA, LNP-S, bivalent, PF, 30 mcg/0.3 mL dose 05/02/2022 completed Not Available [facility] 05/24/20 05:17:58 pneumococcal polysaccharide PPV23 08/22/2010 completed Not Available [facility] 2022 05:17:58 pneumococcal polysaccharide PPV23 08/29/2016 completed Not Available [facility] 2022 05:17:58 Hep B, unspecified formulation 11/21/2012 completed Not Available [facility] 05/24/2023 05:17:58 Influenza, high-dose, quadrivalent, PF 05/03/2023 completed Not Available [facility] 07/26/2023 05:31:29 Past Encounters Encounter ID Performer Location Encounter Start Date Encounter Closed Date Diagnosis/Indication Diagnosis SNOMED-CT Code Diagnosis ICD10 Code [id number] TAMIA TAYLOR PA-C [address] [address] 01/31/2024 15:01:16 01/31/2024 15:49:17 Lumbago with sciatica 099677407 M54.42 [id number] TAMIA TAYLOR PA-C [facility] [address] [place] [address] 02/07/2024 08:35:45 02/07/2024 09:48:10 Type 2 diabetes mellitus without complication 446250112 E11.9 Lumbago with sciatica 20 [id number] M54.42 Tinea pedis 6248774 B35. 3 Goals Section Goal Description Status Start Date LastModified by Organization Details LastModified Time Hemoglobin A1C Lowers or maintains hemoglobin A1C (HbA1c) as per care team recommendation (s) [TARGET: less than or equal to 7%]; Avoid Insulin start Goal not achieved SYLVIA Path101 Information not available 01/09/2024 17:57:16 Keep Medication [...] Member ID Michele Member ID Guarantor Name 02/07/[address] [facility] (MEDICARE REPLACEMENT HMO) [id number] Johnson R Ekaterina [id number] Johnson R Ekaterina Notes Date Note Type Note Provider Name and Address Organization Details Recorded Time 02/07/2024 text/html HPI Notes: The patient presents with concerns about his diabetes, left lower back pain, leg pain and weakness, and a possible fungal infection on his right foot. Type 2 diabetes mellitus: The patient's most recent A1c was 7.5, up from 7.1 in his last visit. He reports that his blood sugar has been stable, with occasional fluctuations due to medrol dose jacky. He is currently taking medications for diabetes and reports tolerating them well. Lumbago with sciatica, left side: The patient has been experiencing persistent left lower back pain that has not improved. The pain radiates to his left leg, causing weakness and occasional instability. He has tried steroids, muscle relaxers, and heat/cold therapy with limited success. He recently had an x-ray, which showed significant arthritis. PT scheduled for 03/03. MRI scheduled for 02/13. Tinea pedis: The patient presents with redness and dryness on his right foot, which is suspected to be athlete's foot. - General: No fevers, numbness, or tingling - Musculoskeletal: No foot drop, no saddle anesthesia TAMIA TAYLOR PA-C [address], [place], [address], [place] [facility]. 02/07/2024 10:14:40
--- OUTSIDE RECORDS SUMMARY | 2024-03-26 15:49 | XMS_ITS | Encounter Summary ---
Author Organization [facility] Address [address] [place] [address] Care Team Providers Care Fighting Vehicle Systems Maintainer Name Role Phone Unknown, Provider Primary Care Provider [phone] Encounter Details Date Type Department Care Team (Late st Contact Info) Description 06/14/2021 Lab Requisition [facility] Pathology & Laboratory Medicine - [facility] [address] [place] [address] Outr Resulting Lab, Provider Social History Tobacco Use Types Packs/Day Years Used Date Smoking Tobacco: Never Assessed Sex and Gender Information Value Date Recorded Sex Assigned at Not on file Gender Identity Not on file Sexual Orientation Not on file documented as of this encounter Plan of Treatment Not on file documented as of this encounter Procedures Procedure Name Priority Date/Time Associated Diagnosis Comments SPEP WITH IMMUNOTYPING PERFORMABLE Today 06/14/2021 10:53 EST SERUM FREE LIGHT CHAINS Routine 06/14/2021 10:53 EST SPEP WITH IMMUNOTYPING Routine 06/14/2021 10:53 EST PROTEIN, TOTAL Today 06/14/2021 10:53 EST documented in this encounter Results * (ABNORMAL) SPEP WITH IMMUNOTYPING PERFORMABLE (06/14/2021 10:53 EST) Albumin % 54.8(L) 55.8 - 66.1 % 06/15/2021 15:25 EST [facility] Alpha-1 % 4.2 2.9 - 4.9 % 06/15/2021 15:25 EST [facility] Alpha-2 % 13.6(H) 7.1 - 11.8 % 06/15/2021 15:25 [facility] Beta % 13.6(H) 8.4 - 13.1 % 06/15/2021 15:25 [facility] Gamma % 13.8 11.1 - 18.8 % 06/15/2021 15:25 [facility] SPEP Comment No apparent monoclonal protein seen on serum electrophoresis 06/15/2021 15:25 [facility] Comment:See scanned/suppleme ntary report. Immunotyping , Serum Current Interpretation: Negative for monoclonal immunoglobulins. Reviewed by: Jeremy Galloway MD 06/15/2021 1446 06/15/2021 15:25 [facility] Total Protein 8.5(H) 6.3 - 8.2 g/dL 06/15/2021 15:25 [facility] Blood VENOUS BLOOD / Unknown 06/14/2021 10:53 EST 06/14/2021 20:53 EST Provider Outr Resulting Lab CHEMISTRY & BLOOD GAS ORDERABLES Performing Organization Address [facility] de Phone Number [facility] [address] [place] [address] * PROTEIN, TOTAL (06/14/2021 10:53 EST) Blood VENOUS BLOOD / Unknown 06/14/2021 10:53 EST 06/14/2021 20:53 EST Provider Outr Resulting Lab CHEMISTRY & BLOOD GAS ORDERABLES Performing Organization Address [facility] Co de Phone Number [facility] [address] [place] [address] * (ABNORMAL) SERUM FREE LIGHT CHAINS (06/14/2021 10:53 EST) Sawpit Free Lt Chain 3.51(H) 0.33 - 1.94 mg/dL 06/15/2021 9:28 [facility] Lambda Free Lt Chain 2.67(H) 0.57 - 2.63 mg/dL 06/15/2021 9:28 [facility] Sawpit/Lambda Ratio 1.31 0.26 - 1.65 06/15/2021 9:28 EST [facility] Blood VENOUS BLOOD / Unknown 06/14/2021 10:53 EST 06/14/2021 20:53 EST Provider Outr Resulting Lab CHEMISTRY & BLOOD GAS ORDERABLES Performing Organization Address City/State/[facility] Co de Phone Number [facility] [address] [place] [address] documented in this encounter Visit Diagnoses Not on filedocumented in this encounter Care Teams Fighting Vehicle Systems Maintainer Relationship Specialty Start Date End Date Unknown, Provider, PCP - General 05/15/21 documented as of this encounter
--- OUTSIDE RECORDS SUMMARY | 2024-03-26 15:49 | XMS_ITS | Encounter Summary ---
Author Organization [facility] Address [address] [place] [address] Care Team Providers Care Manager Agency Name Role Phone Unknown, Provider Primary Care Provider Encounter Details Date Type Department Care Team (Late st Contact Info) Description 10/19/[address] [facility] Pathology & Laboratory Medicine - [facility] [address] [place] [address] Outr Resulting Lab, Provider Social History Tobacco [...] Procedure Name Priority Date/Time Associated Diagnosis Comments HEPATITIS C AB W REFLEX TO HCV RNA BY PCR Routine 10/18/2021 9:05 EDT documented in this encounter Results * HEPATITIS C AB W REFLEX TO HCV RNA BY PCR (10/18/2021 9:05 EDT) Hep C Antibody Negative Negative 10/20/2021 10:04 EDT [facility] Blood VENOUS BLOOD / Unknown 10/18/2021 9:05 EDT 10/19/2021 17:30 EDT Provider Outr Resulting Lab CHEMISTRY & BLOOD GAS ORDERABLES [facility] [address] [place] [address] documented in this encounter Visit Diagnoses Not on filedocumented in this encounter Care Teams Manager Agency Relationship Specialty Start Date End Date Unknown, ProviderMD PCP - General 05/15/21 documented as of this encounter
--- OUTSIDE RECORDS SUMMARY | 2024-03-26 15:49 | XMS_ITS | Encounter Summary ---
Author Organization [facility] Address [address] [place] [address] Care Team Providers Care Rod Finisher Name Role Phone Unknown, Provider Primary Care Provider Encounter Details Date Type Department Care Team (Late st Contact Info) Description 01/06/2024 Lab Requisition [facility] Pathology & Laboratory Medicine - [facility] [address] [place], [place] [address] Outr Resulting Lab, Provider Social History Tobacco [...] Procedure Name Priority Date/Time Associated Diagnosis Comments SPEP, INCLUDES QUANTITATION OF MONOCLONAL SPIKE PERFORMABLE Today 01/06/2024 11:35 EDT SPEP, INCLUDES QUANTITATION OF MONOCLONAL SPIKE Routine 01/06/2024 11:35 EDT PROTEIN, TOTAL Today 01/06/2024 11:35 EDT documented in this encounter Results * (ABNORMAL) SPEP, INCLUDES QUANTITATION OF MONOCLONAL SPIKE PERFORMABLE (01/06/2024 11:35 EDT) Albumin % 56.1 55.8 - 66.1 % 01/07/2024 12:38 EDT [facility] Albumin g/dL 4.2 3.6 - 5.2 g/dL 01/07/2024 12:38 EDT [facility] Alpha-1 % 3.9 2.9 - 4.9 % 01/07/2024 12:38 EDT [facility] Alpha-1 g/dL 0.30 0.15 - 0.40 g/dL 01/07/2024 12:38 [facility] Alpha-2 % 13.7(H) 7.1 - 11.8 % 01/07/2024 12:38 [facility] Alpha-2 g/dL 1.00 0.50 - 1.00 g/dL 01/07/2024 12:38 [facility] Beta % 13.1 8.4 - 13.1 % 01/07/2024 12:38 [facility] Beta g/dL 1.00 0.60 - 1.20 g/dL 01/07/2024 12:38 [facility] Gamma % 13.2 11.1 - 18.8 % 01/07/2024 12:38 [facility] Gamma g/dL 1.00 0.60 - 1.60 g/dL 01/07/2024 12:38 [facility] SPEP Comment No apparent monoclonal protein seen on serum electrophoresis 01/07/2024 12:38 [facility] Comment:See scanned/suppleme ntary report. Total Protein 7.4 6.3 - 8.2 g/dL 01/07/2024 12:38 [facility] Blood VENOUS BLOOD / Unknown 01/06/2024 11:35 EDT 01/06/2024 22:31 EDT Provider Outr Resulting Lab CHEMISTRY & BLOOD GAS ORDERABLES Performing Organization Address City/[facility]/ZIP Co de Phone Number [facility] [address] [place], [place] [address] * PROTEIN, TOTAL (01/06/2024 11:35 EDT) Blood VENOUS BLOOD / Unknown 01/06/2024 11:35 EDT 01/06/2024 22:31 EDT Provider Outr Resulting Lab CHEMISTRY & BLOOD GAS ORDERABLES Performing Organization Address City/[facility]/ZIP Co de Phone Number [facility] [address] [place] [address] documented in this encounter Visit Diagnoses Not on filedocumented in this encounter Care Teams Rod Finisher Relationship Specialty Start Date End Date Unknown, Provider, PCP - General 05/15/21 documented as of this encounter
--- OUTSIDE RECORDS SUMMARY | 2024-03-26 15:49 | XMS_ITS | Referral Summary ---
Author Organization [facility] Address [address] [place] [address] Care Team Providers Care Aircraft Captain Name Role Phone Unknown, Provider Primary Care Provider Encounters Date Type Department Care Team Description 01/06/2024 Lab Requisition [facility] Pathology & Laboratory [facility] [address] [place] [address] Outr Resulting Lab, Provider 01/06/2024 Lab Requisition [facility] Pathology & Laboratory [facility] [address] [place] [address] Outr Resulting Lab, Provider from Last 3 Months Social History Tobacco Use Types Packs/Day Years Used Date Smoking Tobacco: Never Assessed Sex and Gender Information Value Date Recorded Sex Assigned at Not on file Gender Identity Not on file Sexual Orientation Not on file Plan of Treatment Not on file Procedures Procedure Name Priority Date/Time Associated Diagnosis Comments URINE MONOCLONAL PROTEIN STUDY (UPEP WITH IMMUNOTYPING) PERFORMABLE Today 01/06/2024 11:35 EDT PROTEIN, TOTAL, RANDOM, URINE Today 01/06/2024 11:35 EDT URINE MONOCLONAL PROTEIN STUDY (UPEP WITH IMMUNOTYPING) Routine 01/06/2024 11:35 EDT SPEP, INCLUDES QUANTITATION OF MONOCLONAL SPIKE PERFORMABLE Today 01/06/2024 11:35 EDT PROTEIN, TOTAL Today 01/06/2024 11:35 EDT SPEP, INCLUDES QUANTITATION OF MONOCLONAL SPIKE Routine 01/06/2024 11:35 EDT HEPATITIS C AB W REFLEX TO HCV RNA BY PCR Routine 10/18/2021 9:05 EDT from Last 3 Months or Most Recently Relevant to Health Maintenance Results * URINE MONOCLONAL PROTEIN STUDY (UPEP WITH IMMUNOTYPING) PERFORMABLE (01/06/2024 11:35 EDT) Albumin, Urine % 67.9 N/A % 01/07/20 15:15 EDT [facility] Albumin, Urine mg/dL 86 mg/dL 01/07/2024 15:15 [facility] Globulins, Urine % 32.1 N/A % 01/07/2024 15:15 T [facility] Globulins, Urine mg/dL 40 mg/dL 01/07/2024 15:15 [facility] UPEP Comment See Comment 01/07/2024 15:15 [facility] Comment:Electrophoresis scre ening performed; Immunotyping to follow. ??See scanned/supplementary report. Immunotyping, Urine Current Interpretatio n: Negative for free monoclonal light chains. Reviewed by: Jeremy Galloway MD 01/07/2024 1315 01/07/2024 15:15 EDT [facility] Total Protein, Urine 126 See Note mg/dL 01/07/2024 15:15 [facility] Comment: NOTE: Reference range has not been established for total protein concentration in random urine specimens. Urine URINE / Unknown 01/06/2024 1 1:35 EDT 01/06/2024 22:26 EDT Provider Outr Resulting Lab URINALYSIS O RDERABLES [facility] [address] [place] [address] * (ABNORMAL) SPEP, INCLUDES QUANTITATION OF MONOCLONAL SPIKE PERFORMABLE (01/06/2024 11:35 EDT) Albumin % 56.1 55.8 - 66.1 % 01/07/2024 12:38 EDT [facility] Albumin g/dL 4.2 3.6 - 5.2 g/dL 01/07/2024 12:38 [facility] Alpha-1 % 3.9 2.9 - 4.9 % 01/07/2024 12:38 [facility] Alpha-1 g/dL 0.30 0.15 - 0.40 g/dL 01/07/2024 12:38 [facility] Alpha-2 % 13.7(H) 7.1 - 11.8 % 01/07/2024 12:38 [facility] Alpha-2 g/dL 1.00 0.50 - 1.00 g/dL 01/07/2024 12:38 [facility] Beta % 13.1 8.4 - 13.1 % 01/07/2024 12:38 [facility] Beta g/dL 1.00 0.60 - 1.20 g/dL 01/07/2024 12:38 [facility] Gamma % 13.2 11.1 - 18.8 % 01/07/2024 12:38 [facility] Gamma g/dL 1.00 0.60 - 1.60 g/dL 01/07/2024 12:38 [facility] SPEP Comment No apparent monoclonal protein seen on serum electrophoresis 01/07/2024 12:38 [facility] Comment:See scanned/suppleme ntary report. Total Protein 7.4 6.3 - 8.2 g/dL 01/07/2024 12:38 [facility] Blood VENOUS BLOOD / Unknown 01/06/2024 11:35 EDT 01/06/2024 22:31 EDT Provider Outr Resulting Lab CHEMISTRY & BLOOD GAS ORDERABLES [facility] [address] [place] [address] * PROTEIN, TOTAL, RANDOM, URINE (01/06/2024 11:35 EDT) Urine URINE / Unknown 01/06/2024 1 1:35 EDT 01/06/2024 22:26 EDT Provider Outr Resulting Lab URINALYSIS O RDERABLES Performing Organization Address City/[facility]/ZIP Co de Phone Number [facility] [address] [place], [place] [phone] * PROTEIN, TOTAL (01/06/2024 11:35 EDT) Blood VENOUS BLOOD / Unknown 01/06/2024 11:35 EDT 01/06/2024 22:31 EDT Provider Outr Resulting Lab CHEMISTRY & BLOOD GAS ORDERABLES Performing Organization Address [facility] Co de Phone Number [facility] [address] [place], [place] [address] * HEPATITIS C AB W REFLEX TO HCV RNA BY PCR (10/18/2021 9:05 EDT) Hep C Antibody Negative Negative 10/20/2021 10:04 EDT [facility] Blood VENOUS BLOOD / Unknown 10/18/2021 9:05 EDT 10/19/2021 17:30 EDT Provider Outr Resulting Lab CHEMISTRY & BLOOD GAS ORDERABLES Performing Organization Address City/[facility]/ZIP Co de Phone Number [facility] [address] [place] [phone] from Last 3 Months or Most Recently Relevant to Health Maintenance Care Teams Aircraft Captain Relationship Specialty Start Date End Date Unknown, Provider, PCP - General 05/15/21
--- OUTSIDE RECORDS SUMMARY | 2024-03-26 15:49 | XMS_ITS | Encounter Summary ---
Author Organization [facility] Address [address] [place] [address] Care Team Providers Care Reliability Engineer Name Role Phone Unknown, Provider Primary Care Provider Encounter Details Date Type Department Care Team (Late st Contact Info) Description 06/16/2021 Lab Requisition [facility] Pathology & Laboratory Medicine - [facility] [address] [place] [address] Outr Resulting Lab, Provider Social History Tobacco [...] PROTEIN STUDY (UPEP WITH IMMUNOTYPING) PERFORMABLE Today 06/16/2021 9:50 EST PROTEIN, TOTAL, RANDOM, URINE Today 06/16/2021 9:50 EST URINE MONOCLONAL PROTEIN STUDY (UPEP WITH IMMUNOTYPING) Routine 06/16/2021 9:50 EST documented in this encounter Results * URINE MONOCLONAL PROTEIN STUDY (UPEP WITH IMMUNOTYPING) PERFORMABLE (06/16/2021 9:50 EST) Albumin, Urine % 67.8 N/A % 06/19/20 14:49 EST [facility] Globulins, Urine % 32.2 N/A % 06/19/2021 14:49 EST [facility] UPEP Comment See Comment 06/19/2021 14:49 EST [facility] Comment:Electrophoresis scre ening performed; Immunotyping to follow. See scanned/supplementary report. Immunotyping, Urine Current Interpretation : Negative for free monoclonal light chains. Interpreted by: Sha Rico MD, PhD 06/19/2021 14:30. 06/19/2021 14:49 EST [facility] Total Protein, Urine 51 See Note mg/dL 06/19/2021 14:49 EST [facility] Comment: NOTE: Reference range has not been established for total protein concentration in random urine specimens. Urine URINE / Unknown 06/16/2021 9 :50 EST 06/16/2021 20:52 EST Provider Outr Resulting Lab URINALYSIS O RDERABLES Performing Organization Address [facility] de Phone Number [facility] [address] [place] [address] * PROTEIN, TOTAL, RANDOM, URINE (06/16/2021 9:50 EST) Urine URINE / Unknown 06/16/2021 9 :50 EST 06/16/2021 20:52 EST Provider Outr Resulting Lab URINALYSIS O RDERABLES Performing Organization Address [facility] Co de Phone Number [facility] [address] [place] [address] documented in this encounter Visit Diagnoses Not on filedocumented in this encounter Care Teams Reliability Engineer Relationship Specialty Start Date End Date Unknown, Provider, PCP - General 05/15/21 documented as of this encounter
--- OUTSIDE RECORDS SUMMARY | 2024-03-26 15:49 | XMS_ITS | Clinical Summary ---
Author Organization [facility] Address [address] [place] [address] Care Team Providers Care Train Station Server Name Role Phone Unknown, Provider Primary Care Provider Encounters Date Type Department Care Team Description 01/06/2024 Lab Requisition [facility] Pathology & [facility] [address] [place] [address] Outr Resulting Lab, Provider 01/06/2024 Lab Requisition [facility] Pathology & Laboratory [address] [address] Outr Resulting Lab, Provider from Last 3 Months Social History Tobacco Use Types Packs/Day Years Used Date Smoking Tobacco: Never Assessed Sex and Gender Information Value Date Recorded Sex Assigned at Not on file Gender Identity Not on file Sexual Orientation Not on file Plan of Treatment Health Maintenance Due Date Last Done Comments RSV Immunization ( o r 60+ Years) (1 - 1-dose 60+ series) 2009 Fall Risk Screening 2014 COVID-19 Vaccine ( season) 2024 Hepatitis C Screen Completed 10/18/2021 Procedures Procedure Name Priority Date/Time Associated Diagnosis [...] % 67.9 N/A % 01/07/20 15:15 EDT [facility] Albumin, Urine mg/dL 86 mg/dL 01/07/2024 15:15 [facility] Globulins, Urine % 32.1 N/A % 01/07/2024 15:15 T [facility] Globulins, Urine mg/dL 40 mg/dL 01/07/2024 15:15 [facility] UPEP Comment See Comment 01/07/2024 15:15 [facility] Comment:Electrophoresis scre ening performed; Immunotyping to follow. ??See scanned/supplementary report. Immunotyping, Urine Current Interpretatio n: Negative for free monoclonal light chains. Reviewed by: Jeremy Galloway MD 01/07/2024 1315 01/07/2024 15:15 T [facility] Total Protein, Urine 126 See Note mg/dL 01/07/2024 15:15 [facility] Comment: NOTE: Reference range has not been established for total protein concentration in random urine specimens. Urine URINE / Unknown 01/06/2024 1 1:35 EDT 01/06/2024 22:26 EDT Provider Outr Resulting Lab URINALYSIS O RDERABLES [facility] [address], [place] [id number] * (ABNORMAL) SPEP, INCLUDES QUANTITATION OF MONOCLONAL SPIKE PERFORMABLE (01/06/2024 11:35 EDT) Albumin % 56.1 55.8 - 66.1 % 01/07/2024 12:38 [facility] Albumin g/dL 4.2 3.6 - 5.2 g/dL 01/07/2024 12:38 [facility] Alpha-1 % 3.9 2.9 - 4.9 % 01/07/2024 12:38 [facility] Alpha-1 g/dL 0.30 0.15 - 0.40 g/dL 01/07/2024 12:38 [facility] Alpha-2 % 13.7(H) 7.1 - 11.8 % 01/07/2024 12:38 [facility] Alpha-2 g/dL 1.00 0.50 - 1.00 g/dL 01/07/2024 12:38 [facility] Beta % 13.1 8.4 - 13.1 % 01/07/2024 12:38 [facility] Beta g/dL 1.00 0.60 - 1.20 g/dL 01/07/2024 12:38 [facility] Gamma % 13.2 11.1 - 18.8 % 01/07/2024 12:38 [facility] Gamma g/dL 1.00 0.60 - 1.60 g/dL 01/07/2024 12:38 [facility] SPEP Comment No apparent monoclonal protein seen on serum electrophoresis 01/07/2024 12:38 [facility] Comment:See scanned/suppleme ntary report. Total Protein 7.4 6.3 - 8.2 g/dL 01/07/2024 12:38 [facility] Blood VENOUS BLOOD / Unknown 01/06/2024 11:35 EDT 01/06/2024 22:31 EDT Provider Outr Resulting Lab CHEMISTRY & BLOOD GAS ORDERABLES [facility] [address] [place] [address] * PROTEIN, TOTAL, RANDOM, URINE (01/06/2024 11:35 EDT) Urine URINE / Unknown 01/06/2024 1 1:35 EDT 01/06/2024 22:26 EDT Provider Outr Resulting Lab URINALYSIS O RDERABLES Performing Organization Address [facility]/ZIP Co de Phone Number [facility] [address] [place] [address] * PROTEIN, TOTAL (01/06/2024 11:35 EDT) Blood VENOUS BLOOD / Unknown 01/06/2024 11:35 EDT 01/06/2024 22:31 EDT Provider Outr Resulting Lab CHEMISTRY & BLOOD GAS ORDERABLES Performing Organization Address [facility] Co de Phone Number [facility] [address] [place] [address] * HEPATITIS C AB W REFLEX TO HCV RNA BY PCR (10/18/2021 9:05 EDT) Hep C Antibody Negative Negative 10/20/2021 10:04 EDT [facility] Blood VENOUS BLOOD / Unknown 10/18/2021 9:05 EDT 10/19/2021 17:30 EDT Provider Outr Resulting Lab CHEMISTRY & BLOOD GAS ORDERABLES [facility] [address] [place] [address] from Last 3 Months or Most Recently Relevant to Health Maintenance Care Teams Train Station Server Relationship Specialty Start Date End Date Unknown, Provider, PCP - General 05/15/21
--- OUTSIDE RECORDS SUMMARY | 2024-03-26 15:49 | XMS_ITS | Encounter Summary ---
Author Organization [facility] Address [address] [place] [address] Care Team Providers Care Contracts Paralegal Name Role Phone Unknown, Provider Primary Care Provider Encounter Details Date Type Department Care Team (Late st Contact Info) Description 01/06/2024 Lab Requisition [facility] Pathology & Laboratory Medicine - [facility] [address] [place], [place] [id number] Outr Resulting Lab, Provider Social History Tobacco [...] (UPEP WITH IMMUNOTYPING) Routine 01/06/2024 11:35 EDT documented in this encounter Results * URINE MONOCLONAL PROTEIN STUDY (UPEP WITH IMMUNOTYPING) PERFORMABLE (01/06/2024 11:35 EDT) Albumin, Urine % 67.9 N/A % 01/07/20 15:15 EDT [facility] Albumin, Urine mg/dL 86 mg/dL 01/07/2024 15:15 EDT [facility] Globulins, Urine % 32.1 N/A % 01/07/2024 15:15 EDT [facility] Globulins, Urine mg/dL 40 mg/dL 01/07/2024 15:15 EDT [facility] UPEP Comment See Comment 01/07/2024 15:15 EDT [facility] Comment:Electrophoresis scre ening performed; Immunotyping to follow. ??See scanned/supplementary report. Immunotyping, Urine Current Interpretatio n: Negative for free monoclonal light chains. Reviewed by: Jeremy Galloway MD 01/07/2024 1315 01/07/2024 15:15 EDT [facility] Total Protein, Urine 126 See Note mg/dL 01/07/2024 15:15 EDT [facility] Comment: NOTE: Reference range has not been established for total protein concentration in random urine specimens. Urine URINE / Unknown 01/06/2024 1 1:35 EDT 01/06/2024 22:26 EDT Provider Outr Resulting Lab URINALYSIS O RDERABLES Performing Organization Address [facility] Co de Phone Number [facility] [address] [place] [id number] * PROTEIN, TOTAL, RANDOM, URINE (01/06/2024 11:35 EDT) Urine URINE / Unknown 01/06/2024 1 1:35 EDT 01/06/2024 22:26 EDT Provider Outr Resulting Lab URINALYSIS O RDERABLES Performing Organization Address [facility] Co de Phone Number [facility] [address] [place] [address] documented in this encounter Visit Diagnoses Not on filedocumented in this encounter Care Teams Contracts Paralegal Relationship Specialty Start Date End Date Unknown, Provider, PCP - General 05/15/21 documented as of this encounter
--- OUTSIDE RECORDS SUMMARY | 2024-03-26 15:49 | XMS_ITS | Encounter Summary ---
Author Organization [facility] Address [address] [place] [address] Care Team Providers Care Procedure Tech Name Role Phone Unknown, Provider Primary Care Provider Encounter Details Date Type Department Care Team (Late st Contact Info) Description 05/24/2023 Lab Requisition [facility] Pathology & Laboratory Medicine - [facility] [address] [place], [place] [phone] Outr Resulting Lab, Provider Social History Tobacco [...] Procedure Name Priority Date/Time Associated Diagnosis Comments PSA TOTAL, DIAGNOSTIC Routine 05/23/2023 11:22 EST documented in this encounter Results * (ABNORMAL) PSA TOTAL, DIAGNOSTIC (05/23/2023 11:22 EST) PSA 8.7(H) <=6.5 ng/mL 05/24/2023 18:45 EST [facility] Blood VENOUS BLOOD / Unknown 05/23/2023 11:22 EST 05/24/2023 18:01 EST Narrative [facility] - 05/24/2023 18:45 EST NOTE: Serum PSA concentration should not be interpreted as absolute evidence for the presence or absence of malignant disease. Assayed on Siemens ADVIA Centaur XPT using chemiluminescent technology.??Values obtained by using different assay methods cannot be used interchangeably. Provider Outr Resulting Lab CHEMISTRY & BLOOD GAS ORDERABLES [facility] [address] [place] [address] documented in this encounter Visit Diagnoses Not on filedocumented in this encounter Care Teams Procedure Tech Relationship Specialty Start Date End Date Unknown, Provider, PCP - General 05/15/21 documented as of this encounter
--- OUTSIDE RECORDS SUMMARY | 2024-03-26 15:50 | XMS_ITS | Encounter Summary ---
Author Organization [facility] Address [facility] [place] [address] Care Team Providers Care Pot Operator Name Role Phone Tamia Tsai Primary Care Provider [phone] Encounter Details Date Type Department Care Team (Late st Contact Info) Description 03/09/2024 6:50 AM EDT Telehealth [place] [address] Telehealth, Neurology None Social History Tobacco Use Types Packs/Day Years Used Date Smoking Tobacco: Never Smokeless Tobacco: Never Alcohol Use Standard Drinks/Week Comments Not Currently 0 (1 standard drink = 0.6 oz pur e alcohol) [facility] Utilities Answer Date Recorded In the past 12 months has e [employer], gas, oil, or water [employer] threatened to shut off services in your home? No 02/24/2024 Hunger Vital Sign Answer Date Recorded Within the past 12 months, y ou worried that your food would run out before you got the money to buy more. Never true 02/24/20 24 Within the past 12 months, t he food you bought just didn't last and you didn't have money to get more. Never true 02/24/2024 PRAPARE - Transportation Answer Date Re corded In the past 12 months, has l ack of transportation kept you from medical appointments or from getting medications? No 02/12 In the past 12 months, has l ack of transportation kept you from meetings, work, or from getting things needed for daily living? No 02/24/2024 Housing Stability Vital Sign Answer Jose J e Recorded In the last 12 months, was t here a time when you were not able to pay the mortgage or rent on time? No 02/24/2024 Number of Times Moved in the Last Year Not on fi le 02/24/2024 At any time in the past 12 m [facility], were you homeless or living in a chcf (including now)? No 02/24/2024 IPV Inpatient Questions Answer Date Recorded Does Anyone Try to Keep You From Having Contact with Others or Doing Things Outside Your Home? no 02/23/2024 Feels Threatened by Someone no 02/12 Feels Unsafe at Home or Work/School no 02/23/2024 Physical Signs of Abuse Present no 02/23/2024 Sex and Gender Information Value Date Recorded Sex Assigned at Not on file Gender Identity Not on file Sexual Orientation Not on file documented as of this encounter Plan of Treatment Upcoming Encounters Date Type Department Care Team (Late st Contact Info) Description 08/27/2024 2:30 PM EST [place] [address] Susanna Cm, ANH [facility] [place] [address] documented as of this encounter Visit Diagnoses Not on filedocumented in this encounter Care Teams Pot Operator Relationship Specialty Start Date End Date Tamia Tsai PA [address] [place] [address] PCP - General Family Medicine 02/18/24 documented as of this encounter
--- OUTSIDE RECORDS SUMMARY | 2024-03-26 15:50 | XMS_ITS | Encounter Summary ---
Author Organization [facility] [place] [address] Care Team Providers Care Fiction And Nonfiction Writer Prose Name Role Phone Tamia Tsai Primary Care Provider [phone] Encounter Details Date Type Department Care Team (Late st Contact Info) Description 03/11/2024 5:00 PM EDT Telehealth [place] [address] Telehealth, Neurology None Social History Tobacco Use Types Packs/Day Years Used Date Smoking Tobacco: Never Smokeless Tobacco: Never Alcohol Use Standard Drinks/Week Comments Not Currently 0 (1 standard drink = 0.6 oz pur e alcohol) [facility] Utilities Answer Date Recorded In the past 12 months has e [employer], gas, oil, or water [employer] threatened to shut off services in your [...] any time in the past 12 m [facility], were you homeless or living in a residential (including now)? No 02/24/2024 IPV Inpatient Questions [...] 2:30 PM EST [place] [address] Susanna Cm, ANH [facility] [place] [address] documented as of this encounter Visit Diagnoses Not on filedocumented in this encounter Care Teams Fiction And Nonfiction Writer Prose Relationship Specialty Start Date End Date Tamia Tsai PA [address] [place] [phone] PCP - General Family Medicine 02/18/24 documented as of this encounter
--- OUTSIDE RECORDS SUMMARY | 2024-03-26 15:50 | XMS_ITS | Encounter Summary ---
Author Organization [facility] [place] [address] Care Team Providers Care Top Stop Attacher Name Role Phone Tamia Tsai Primary Care Provider [phone] Encounter Details Date Type Department Care Team (Late st Contact Info) Description 03/17/2024 External [place] [phone] Social History Tobacco Use Types Packs/Day Years Used Date Smoking Tobacco: Never Smokeless Tobacco: Never Alcohol Use Standard Drinks/Week Comments Not Currently 0 (1 standard drink = 0.6 oz pur e alcohol) [facility] Utilities Answer Date Recorded In the past 12 months has e electric, gas, oil, or water company threatened to shut off services in your home? No 03/18/2024 Hunger Vital Sign Answer Date Recorded Within the past 12 months, y ou worried that your food would run out before you got the money to buy more. Never true 03/18/20 24 Within the past 12 months, t he food you bought just didn't last and you didn't have money to get more. Never true 03/18/2024 PRAPARE - Transportation Answer Date Re corded In the past 12 months, has l ack of transportation kept you from medical appointments or from getting medications? No 10/2023 In the past 12 months, has l ack of transportation kept you from meetings, work, or from getting things needed for daily living? No 03/18/2024 Housing Stability Vital Sign Answer Jose J e Recorded In the last 12 months, was t here a time when you were not able to pay the mortgage or rent on time? No 03/18/2024 In the past 12 months, how m any times have you moved where you were living? 1 03/18/2024 At any time in the past 12 m [facility], were you homeless or living in a penitentiary (including now)? No 03/18/2024 IPV Inpatient Questions Answer Date Recorded Does Anyone Try to Keep You From Having Contact with Others or Doing Things Outside Your Home? no 03/18/2024 Feels Threatened by Someone no 10/2023 Feels Unsafe at Home or Work/School no 03/18/2024 Physical Signs of Abuse Present no 03/18/2024 Sex and Gender Information Value Date Recorded Sex Assigned at Not on file Gender Identity Not on file Sexual Orientation Not on file documented as of this encounter Plan of Treatment Upcoming Encounters Date Type Department Care Team (Late st Contact Info) Description 08/27/2024 2:30 PM EST Office [place] [address] Susanna Cm [employer] [facility] [place] [address] documented as of this encounter Procedures Procedure Name Priority Date/Time Associated Diagnosis Comments [facility] EXTERNAL CARDIOLOGY RESULT Routine 03/17/2024 1:[address] [facility] Routine 03/17/2024 1:54 PM EDT documented in this encounter Results * External Cardiology Result (03/17/2024 1:55 PM EDT) Anatomical Region Laterality Modality Other Historical Provider EXTERNAL CARDIOLO GY RESULT * External Cardiology Result (03/17/2024 1:54 PM EDT) Anatomical Region Laterality Modality Other Historical Provider EXTERNAL CARDIOLO GY RESULT documented in this encounter Visit Diagnoses Not on filedocumented in this encounter Additional Health Concerns Infection Onset Date Last Indicated Resolved Time Rule Out Respiratory 03/17/2024 03/18/2024 024 1:29 AM EDT Rule Out COVID-19 03/17/2024 03/18/2024 03/18/2024 1:29 AM EDT documented as of this encounter Care Teams Top Stop Attacher Relationship Specialty Start Date End Date Tamia Tsai PA [address] [address] PCP - General Family Medicine 02/18/24 documented as of this encounter
--- OUTSIDE RECORDS SUMMARY | 2024-03-26 15:50 | XMS_ITS | Encounter Summary ---
Author Organization [facility] [place] [address] Care Team Providers Care Bar Supervisor Name Role Phone Tamia Tsai Primary Care Provider [phone] Reason for Visit * Reason Onset Date Comments Appointment 03/23/2024 Encounter Details Date Type Department Care Team (Late st Contact Info) Description 03/23/2024 [place] [phone] Susanna Cm, ANH [facility] [place] [address] Appointment Social History Tobacco Use Types Packs/Day Years Used Date Smoking Tobacco: Never Smokeless Tobacco: Never Alcohol Use Standard Drinks/Week Comments Not Currently 0 (1 standard drink = 0.6 oz pur e alcohol) [facility] Utilities Answer Date Recorded In the past 12 months has [employer], gas, oil, or water company threatened [...] any time in the past 12 m [facility], were you homeless or living in a prison (including now)? No 03/18/2024 DH IPV Inpatient Questions Answer Date Recorded Does [...] on file documented as of this encounter Miscellaneous Notes * Telephone Encounter - Richelle Fields - 03/23/2024 3:03 PM EDT Please follow scheduling instructions below Schedule in person visit or telehealth visit next available. Appt Notes: IMPACT Visit Type: IMPACT Provider: Toi or Joseluis Additional Info Needed: The [facility] works closely with Dr Huggins and typically see's the HCK after discharge * Telephone Encounter - Richelle Fields - 03/23/2024 2:55 PM EDT Copied from CRM #[id number]. Topic: Specialty Dept CRMs - Appointment Needed >> Mar 23, 2024 9:15 AM Eda Villagran wrote: Appt Needed Specialist unknown Relationship (if other than patient-full name): Emili-spouse Appt. Type Needed: Other Reason for Visit: Emili-spouse called and states patient was originally seen by Dr. Huggins on 02/23/2024 for a stroke after a procedure and has been in and out of the hospital since and would like toschedule appointment but is not sure when it is needed. Emili inquiring if patient can seen Dr. Huggins as he is well aware of his situation. Please call to help schedule * Telephone Encounter - Richelle Fields - 03/23/2024 2:55 PM EDT ----- Message from JUANA SUTHERLAND sent at 03/02/2024 11:45 AM EDT ----- Regarding: HCK 4-6 wk HCK with Susanna Cano documented in this encounter Plan of Treatment Upcoming Encounters Date Type Department Care Team (Late st Contact Info) Description 08/27/2024 2:30 PM EST [place] [address] Susanna Cm APRN [facility] [place] [address] documented as of this encounter Visit Diagnoses Not on filedocumented in this encounter Care Teams Bar Supervisor Relationship Specialty Start Date End Date Tamia Tsai PA [address] [place] [id number] PCP - General Family Medicine 02/18/24 documented as of this encounter
--- OUTSIDE RECORDS SUMMARY | 2024-03-26 15:50 | XMS_ITS | Encounter Summary ---
Author Organization Formerly [facility] [place] [address] Care Team Providers Care Braze Operator Name Role Phone Tamia Tsai Primary Care Provider [phone] Reason for Referral * Home Health Care (Routine) - Authorized Specialty Diagnoses / Procedures Referred By Contac t Referred To Contact Diagnoses Acute on chronic congestive heart failure, unspecified heart failure type Avtar Palafox MD [facility] [place] [address] Referral ID Status Reason Start Date Expiration Date Visits Requested Visits Authorized [id number] Authorized Consult, Test & Treat 03/21/2024 09/17/2024 999 999 Reason for Visit * Auth/Cert (Routine) Specialty Diagnoses / Procedures Referred By Contac t Referred To Contact Diagnoses CHF exacerbation elevated troponin Procedures EMERGENCY BRAXTONI Saniya Patrick MD [facility] [address] [facility] Referral ID Status Reason Start Date Expiration Date Visits Re quested Visits Authorized [id number] 1 1 Encounter Details Date Type Department Care Team (Late st Contact Info) Description 03/17/2024 10:14 PM EDT - 03/21/2024 3:41 PM EDT Hospital Encounter Heart and Vascular Unit Level 4 [place] [address] Carlos Oakley MD [facility] [place] [address] Avtar Palafox MD [facility] [place] [address] Saniya Patrick MD [facility] [address] Acute on chronic congestive heart failure, unspecified heart failure type Discharge Disposition: Home with VNA Social History Tobacco Use Types Packs/Day Years Used Date Smoking Tobacco: Never Smokeless Tobacco: Never Alcohol Use Standard Drinks/Week Comments Not Currently 0 (1 standard drink = 0.6 oz pur e alcohol) [facility] Utilities Answer Date Recorded In the past 12 months has th e [employer], gas, oil, or water [employer] threatened to shut off services in your [...] any time in the past 12 m onths, were you homeless or living in a retirement (including now)? No 03/18/2024 DH IPV Inpatient [...] on file documented as of this encounter Last Filed Vital Signs Vital Sign Reading Time Taken Comments Blood Pressure 101/58 03/21/2024 11:31 AM EDT Pulse 70 03/21/2024 11:31 AM EDT Temperature 36.6 ??C (97.9 ??F) 03/21/2024 11:31 AM E DT Respiratory Rate 16 03/21/2024 11:31 AM EDT Oxygen Saturation 94% 03/21/2024 11:31 AM EDT Inhaled Oxygen Concentration - - Weight 73.6 kg (162 lb 4.8 oz) 03/21/2024 3:09 A M EDT Height 165.1 cm (5' 5) 03/17/2024 11:25 PM EDT Body Mass Index 27.01 03/17/2024 11:25 PM EDT documented in this encounter Discharge Summaries * Rachel Michel MD - 03/21/2024 1:36 PM EDT Discharge Summary Patient Name: Johnson Tobar Patient Age: 73 y.o. Language: Palauan Race: White Ethnicity: Not nor Admit date: 03/17/2024 Discharge date and time: 03/21/2024 3:22 PM Attending Physician: Avtar Palafox MD Discharge Physician: Rachel Danielson MD Follow-up Recommendations for Providers: PCP Salt tablets not recommended as this can worsen heart failure symptoms DAPT discontinued Review and adjust current anti-diabetic medications based on latest blood glucose or HbA1c levels Evaluate and manage chronic normocytic, normochromic anemia. Consider iron studies, vitamin B12 andfolate levels Repeat BMP within 2 weeks. Cardiology Started on oral furosemide 60 mg daily, instructions provided for the patient regarding daily standing weights and managing oral diuretics as needed No current indication or benefit for DAPT Inpatient Provider Contact Information: For questions regarding this document or issues relating to this hospitalization on the Medical Service, please contact your inpatient physician through the [facility] Pressroom Foreman . Issues afterhours and on weekends will be handled by the Hospitalist staff on-call. Discharge Diagnoses (Hospital Problems) and Secondary Diagnoses (Chronic Problems): Active Hospital Problems Diagnosis CHF exacerbation NSTEMI (non-ST elevated myocardial infarction) S/P AVR (aortic valve replacement) Type 2 diabetes mellitus ASCVD (arteriosclerotic cardiovascular disease) Aortic stenosis Resolved Hospital Problems No resolved problems to display. 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 associated with cardiac catheterization, s/p tPA Type 2 diabetes mellitus, without long-term current use of insulin S/P CABG (coronary artery bypass graft) CAD (coronary artery disease) Aortic valve stenosis HTN (hypertension) DJD (degenerative joint disease) Elevated cholesterol Operations/Major Procedures: Operations: None Other Major Procedures: None ID: ASCVD s/p CABG x 3 and RCA PCI (06/2023), severe s/p AVR (05/2020), DM2, HTN, HLD transferred from [facility] presenting with shortness of breath, hypoxemia (SpO2 87%) and cough History of Presentation: (per 03/17/2024 Admission H&P): 73 yo male with pmhx of AsCVD s/p CABG x 3 (MCKEON --> LAD, SVG --> OM1 --> D1) and RCA PCI (06/2023), severe s/p AVR (05/2020), DM2, HTN, HLD is a transfer from [facility] for shortness of breath evaluation and management. History obtained from patient and patient's at bedside. Apparently after patient was discharged from [facility] he was at rehab for about 4 to 5 days, then after couple weeks he was admitted at the hospital because of confusion and slurred speech, was found to have hemorrhagic CVA at that time. States he was discharged on 03/13/2024. Was fairly doing well however last night started to have dry cough was associated with shortness of breath,+ mild orthopnea. Denied any chest pain, pressure or tightness, lightheadedness, dizziness or syncopal events. The shortness of breath continued to progress and called primary care today for which they recommended that he go to the ED for further evaluation. Also admits to significant lower extremity swelling, patient states since he received Lasix at the outside hospital his breathing and lower extremity swelling has significantly improved. Otherwise denies any focal weakness, paresthesias, vision changes, dysphagia, facial droop, slurred speech, heada ches, abdominal pain, diarrhea, nausea or vomiting, dysuria at this time. No fevers or chills or sick contacts. Patient is a transfer from [facility], 03/17/2024. Reviewed records, noted that they presented to their ED on 03/17/2024 with complaints of shortness of breath and reported hypoxia and cough. In the emergency department is found to be 87% on room air and was also tachypneic, noted elevated BNP of215 and then the repeat 1 was 350 and 671. proBNP was elevated up to 7367. Sodium was 135, potassium of 3.2 and WBC count of 10.6, hemoglobin 10.6, platelet count of 244. Chest x-ray was performed and noted to have multifocal bilateral airspace disease. He was diagnosed to have acute decompensated heart failure and pulmonary edema and elevated troponin was thought to be secondary to demand ischemia from pulmonary edema. Given patient had recent history of NSTEMI was complicated by ischemic CVA and followed by hemorrhagic CVA patient was accepted to [facility] for further evaluation and management. Hospital Course: Johnson Tobar was admitted to the Cardiology Service on 03/17/2024. The following issues were addressed and he was discharged on 03/21/2024. #Acute decompensated HFpEF (LVEF 42%) Increased proBNP and lung infiltrates on CXR were supportive with clinical findings and consistent with acute HF exacerbation. Initially managed with aggressive diuresis with 160 mg furosemide IV for a net negative goal of -1.5L for two days. Volume status goal was achieved on day 2 since admission and he was switched to oral furosemide 60 mg. The patient was monitored for symptomatic improvement and oral diuretic tolerance for a day. #Type 2 Diabetes Mellitus Initial POCT glucose on admission showed hyperglycemia (260s-270s). We held home metformin and glipizide, and started during admission moderate insulin sliding scale with long-acting glargine and short-acting lispro. We stopped both medications and discharge and discuss with the patient that he might need to adjust his blood glucose medications with his PCP. #ASCVD s/p CABG and PCI to RCA (06/2023) #Ischemic CVA s/p tPA with LHC, R TOOLS DEVELOPER occlusion #Hemorrhagic CVA (03/09/2024) #Concern for NSTEMI, type 2 The diagnosis of NSTEMI type II remained a suspected condition and was evaluated, monitored, and treated during this hospital stay. We continued with aspirin 81 mg during admission. Upon close reviewand discussion with the primary team and Neurology, it was decided that DAPT no longer offered benefit for him. We discontinued DAPT. Vital Signs at Discharge: BP: 101/58, Heart Rate: 70, Temp: 36.6 ??C (97.9 ??F), Resp: 16, BMI (Calculated): 27.42 Height: 165.1 cm (5' 5) (03/17/24 2325) Weight: 73.6 kg (162 lb 4.8 oz) (03/21/24 0309) Functional and Cognitive Status: Mental status at baseline Important Studies and Lab Data: Labs: Recent Labs 03/17/24 2334 WBC 7.96 HGB 10.1* PLATELET 221 Recent Labs 03/19/24 0704 03/17/24 2334 NA 134* 137 K 4.3 3.8 CL 96* 100 CO2 26 22 BUN 15 14 CREATININE 1.11 1.11 Recent Labs 03/19/24 0704 03/17/24 2334 CALCIUM 9.2 9.1 MAGNESIUM -- 0.65* Recent Labs 03/17/24 2334 AST 26 ALT 16 ALKPHOS 105 BILITOT 0.7 BILIDIR 0.3 No results for input(s): TROPONINT, CK in the last 168 hours. No results for input(s): PHART, XZI2GEF, PO2ART, CDL4DNT in the last 168 hours. Pending Studies and Lab Data: None Discharge Conditions/Prognosis: fair Vital Signs: Last value Range last 24 hrs Temperature Temp: 36.6 ??C (97.9 ??F) Temp: [36.4 ??C (97.6 ??F)-37 ??C (98.6 ??F)] Heart Rate Heart Rate: 70 Heart Rate: [64-80] Blood Pressure BP: 101/58 BP: (86-113)/(46-86) Respiratory Rate Resp: 16 Resp: [15-16] SpO2 SpO2: 94 % SpO2: [91 %-98 %] Discharge to: Home Discharge Medications: Your Medications New Medications Dose Details furosemide 20 mg tablet Commonly known as: Lasix Take 3 tablets by mouth daily. Start taking on: March 22, 2024 60 mg Quantity: 90 tablet Refills: 3 Continued medications with new dosing Dose Details Entresto 24-26 mg tablet Take 1 tablet by mouth 2 times daily. Generic drug: sacubitriL-valsartan What changed: how much to take 1 tablet Quantity: 90 tablet Refills: 3 rosuvastatin 40 mg tablet Commonly known as: Crestor Take 1 tablet by mouth every evening. What changed: when to take this 40 mg Quantity: 90 tablet Refills: 3 Continued medications, unchanged Dose Details acetaminophen 325 mg tablet Commonly known as: Tylenol Take 2 tablets by mouth every 4 hours as needed. 650 mg Quantity: 30 tablet Refills: 1 amLODIPine 5 mg tablet Commonly known as: Norvasc Take 1 tablet by mouth 2 times daily. 5 mg Quantity: 90 tablet Refills: 3 ezetimibe 10 mg tablet Commonly known as: Zetia Take 1 tablet by mouth daily. 10 mg Refills: 0 glipiZIDE XL 10 mg ER 24 hr tablet Commonly known as: Glucotrol XL TAKE 1 TABLET BY MOUTH ONCE DAILY Refills: 0 metFORMIN 1,000 mg tablet Commonly known as: Glucophage TAKE ONE TABLET BY MOUTH TWICE A DAY Refills: 0 metoprolol tartrate 100 mg tablet Commonly known as: Lopressor Take 1 tablet by mouth 2 times daily. 100 mg Quantity: 180 tablet Refills: 3 Ozempic 0.25 mg or 0.5 mg (2 mg/3 mL) Pen Injector Inject 0.5 mg subcutaneously. Generic drug: semaglutide 0.5 mg Refills: 0 pantoprazole EC [address] tablet Commonly known as: Protonix Take 1 tablet by mouth daily. Start taking on: March 22, 2024 40 mg Quantity: 90 tablet Refills: 3 STOPPED Medications amoxicillin 500 mg capsule Commonly known as: Amoxil aspirin EC 81 mg EC (DR) tablet blood sugar diagnostic strips Strip clopidogreL 75 mg tablet Commonly known as: Plavix multivitamin Tablet Commonly known as: THERAGRAN sodium chloride 1 gram Tablet Updated Allergies/ADRs: Allergies Allergen Reactions Lisinopril Other (See Comments) Instructions Given to Patient at Discharge: Patient Instructions Instructions on Discharge to Home Why you were hospitalized - exacerbation of congestive heart failure Call your doctor or seek medical attention if you develop the following - chest pain, shortness of breath, fever, cough, weakness in an arm or leg, swelling in your lower legs, weight gain Watch for changes in your weight and condition, it is very important that you weigh yourself daily Weigh yourself every day, ideally at the same time very day. We recommend waking up, using the restroom and immediately weighing yourself in your pajamas. This will give you the most reliable weight. Weigh yourself tomorrow morning, luigi this down as your dry weight If your weight is increased by greater than 2lbs from your dry weight. Please take lasix 20mg once daily. If your weight is persistently elevated the following day, take lasix 20 mg twice daily. Ifyour weight is still persistently elevated, please call your PCP. Call your doctor if you gain 3 pounds or more in 2 to 3 days. A sudden weight gain may mean that your heart failure is getting worse. Keep a daily record of your symptoms. Write down any changes in how you feel, such as new shortnessof breath, cough, or problems eating. Also record if your ankles are more swollen than usual and ifyou have to urinate in the night more often. Note anything that you ate or did that could have triggered these changes. Activity level - as tolerated Diet - low sodium diet Limit sodium and salt Sodium causes your body to hold on to water, making it harder for your heart to pump. People get most of their sodium from table salt that is added to food and from processed foods. Fast food and restaurant meals also tend to be very high in sodium. limit sodium to 2,000 milligrams (mg) a day or less. That is less than 1 teaspoon of salt a day, including all the salt you eat in cooking or in packaged foods. Read food labels on cans and food packages. They tell you how much sodium you get in one serving. Check the serving size. If you eat more than one serving, you are getting more sodium. Be aware that sodium can come in forms other than salt, including monosodium glutamate (MSG), sodium citrate, and sodium bicarbonate (baking soda). MSG is often added to food. You can sometimesask for food without MSG or salt. Slowly reducing salt will help you adjust to the taste. Take the salt shaker off the table. Flavor your food with garlic, lemon juice, onion, vinegar, herbs, and spices instead of salt. Do not use soy sauce, steak sauce, onion salt, garlic salt, mustard, or ketchup on your food, unless it is labeled low-sodium or low-salt. Make your own salad dressings, sauces, and ketchup without adding salt. Use fresh or frozen ingredients, instead of canned ones, whenever you can. Choose low-sodium cannedgoods. Eat less processed food and food from restaurants, including fast food. Driving - as before hospitalization Shower/Bath - permitted Wound Care - none Home Oxygen therapy - none Your Discharge Medication List Your Medications New Medications Dose Details furosemide 20 mg tablet Commonly known as: Lasix Take 3 tablets by mouth daily. Start taking on: March 22, 2024 60 mg Quantity: 90 tablet Refills: 3 Continued medications with new dosing Dose Details Entresto 24-26 mg tablet Take 1 tablet by mouth 2 times daily. Generic drug: sacubitriL-valsartan What changed: how much to take 1 tablet Quantity: 90 tablet Refills: 3 rosuvastatin 40 mg tablet Commonly known as: Crestor Take 1 tablet by mouth every evening. What changed: when to take this 40 mg Quantity: 90 tablet Refills: 3 Continued medications, unchanged Dose Details acetaminophen 325 mg tablet Commonly known as: Tylenol Take 2 tablets by mouth every 4 hours as needed. 650 mg Quantity: 30 tablet Refills: 1 amLODIPine 5 mg tablet Commonly known as: Norvasc Take 1 tablet by mouth 2 times daily. 5 mg Quantity: 90 tablet Refills: 3 ezetimibe 10 mg tablet Commonly known as: Zetia Take 1 tablet by mouth daily. 10 mg Refills: 0 glipiZIDE XL 10 mg ER 24 hr tablet Commonly known as: Glucotrol XL TAKE 1 TABLET BY MOUTH ONCE DAILY Refills: 0 metFORMIN 1,000 mg tablet Commonly known as: Glucophage TAKE ONE TABLET BY MOUTH TWICE A DAY Refills: 0 metoprolol tartrate 100 mg tablet Commonly known as: Lopressor Take 1 tablet by mouth 2 times daily. 100 mg Quantity: 180 tablet Refills: 3 Ozempic 0.25 mg or 0.5 mg (2 mg/3 mL) Pen Injector Inject 0.5 mg subcutaneously. Generic drug: semaglutide 0.5 mg Refills: 0 pantoprazole EC [address] tablet Commonly known as: Protonix Take 1 tablet by mouth daily. Start taking on: March 22, 2024 40 mg Quantity: 90 tablet Refills: 3 STOPPED Medications amoxicillin 500 mg capsule Commonly known as: Amoxil aspirin EC 81 mg EC (DR) tablet blood sugar diagnostic strips Strip clopidogreL 75 mg tablet Commonly known as: Plavix multivitamin Tablet Commonly known as: THERAGRAN sodium chloride 1 gram Tablet Follow-up: No future appointments. [facility] - Cardiology: April 09 at 10:45AM PCP Tamia KISER at March 26 at 2:10 PM Your Inpatient Medical Team at [facility] Name(s) of your inpatient provider(s): Attending: Avtar Palafox MD Fellow: Byron Carlson MD Resident: Perry Ramirez MD Survey Crew Chief: Rachel Louie MD Your Primary Care Provider: RASHEL Do [phone] For questions regarding this document or issues relating to this hospitalization on the Medical Service, please contact your inpatient physician through the [facility] Pressroom Foreman . Issues afterhours and on weekends will be handled by the Hospitalist staff on-call. General Instructions None Future Appointments and Orders Future Orders Complete By Expires Referral to Home Health [REF34 Custom] As directed Process Instructions: If no progress note charted, please enter Clinical details in comments. Scheduling Instructions: Comments: Please evaluate Johnson Tobar for admission to Home Health. [address] [facility] [address] (home) Date of : 1950 Inpatient DOCUMENTATION FOR VNA SERVICES (INCLUDING THOSE PATIENTS WITH MEDICARE COVERAGE REQUIRING HOME VNA SERVICES AND/OR HOSPICE SERVICES) PATIENT'S LOCATION: Johnson Tobar [address] [facility] [id number] (home) Cell: Telephone Information: Cash Poster's Name: self In discussion with the attending physician, it is certified that this patient is under their care and that they, or a Nurse Practitioner, Clinical Nurse specialist or Physician Advanced Practice Nurse who is working directly with them, had a face to face encounter that meets the physician face to face encounter requirements with this patient on 03/21/24 The encounter with the patient was in whole, or in part, for the following medical condition, whichis the primary reason for home health care services: No In discussion with the provider, it is certified that, based on their findings, the following services are medically necessary for home health services. To provide the following care/treatments with the clinical findings supporting the need for services as follows: HOME CARE ORDERS: RN ORDERS: Assess vital signs, cardiopulmonary status, nutrition, hydration, elimination -Additional Orders: Monitor medication effectiveness and management and Reinforce education regarding health issues PT ORDERS: Continue rehab for endurance, gait stability and strength with mobility and transfers. Home safety evaluation. Home exercise program if appropriate. OT ORDERS: Assess and continue rehab for managing ADLs. HOME HEALTH CARE AGENCY: [facility] [address] [place] [id number] START OF CARE: Home Health services requested to start in 24-48 hours but Home Health, with limited availability of this service at this time, plan for a SOC (03/22/24). The multidisciplinary team members and patientare aware. In discussion with the attending physician, it is certified that the clinical findings support thatthis patient is homebound because absences from home require considerable and taxing effort due to:Unsteady gait, poor balance, requiring assistive devices and/or assistance of another. Please note that any additional orders needs or changes will need to be obtained from this patient's PCP: RASHEL Do [address] / [place] [address] . All VNA agencies which cover the area of patient's residence have been reviewed, either verbally or in writing, and patient/family have chosen the home health care agency noted. Questions: Disciplines Requested: Nursing Occupational Therapy Physical Therapy Primary Team Inpatient Physicians at [facility] was: Attending Physician(s): CARLOS OAKLEY SHAWN M Inpatient Provider Contact Information: If you have questions about this document please contact the [facility] balling machine operator at and ask for one of the providers above. If these providers are unavailable your call will be answered by an on- call hospital physician. Discharge References/Attachments: Discharge References/Attachments None Rachel Danielson MD Resident, Internal Medicine PGY-1 03/21/24 3:22 PM documented in this encounter Discharge Instructions * Patient Instructions* Rachel Michel MD - 03/20/2024 2:26 PM EDT Instructions on Discharge to Home Why you were hospitalized - exacerbation of congestive heart failure Call your doctor or seek medical attention if you develop the following - chest pain, shortness of breath, fever, cough, weakness in an arm or leg, swelling in your lower legs, weight gain Watch for changes in your weight and condition, it is very important that you weigh yourself daily Weigh yourself every day, ideally at the same time very day. We recommend waking up, using the restroom and immediately weighing yourself in your pajamas. This will give you the most reliable weight. Weigh yourself tomorrow morning, luigi this down as your dry weight If your weight is increased by greater than 2lbs from your dry weight. Please take lasix 20mg once daily. If your weight is persistently elevated the following day, take lasix 20 mg twice daily. Ifyour weight is still persistently elevated, please call your PCP. Call your doctor if you gain 3 pounds or more in 2 to 3 days. A sudden weight gain may mean that your heart failure is getting worse. Keep a daily record of your symptoms. Write down any changes in how you feel, such as new shortnessof breath, cough, or problems eating. Also record if your ankles are more swollen than usual and ifyou have to urinate in the night more often. Note anything that you ate or did that could have triggered these changes. Activity level - as tolerated Diet - low sodium diet Limit sodium and salt Sodium causes your body to hold on to water, making it harder for your heart to pump. People get most of their sodium from table salt that is added to food and from processed foods. Fast food and restaurant meals also tend to be very high in sodium. limit sodium to 2,000 milligrams (mg) a day or less. That is less than 1 teaspoon of salt a day, including all the salt you eat in cooking or in packaged foods. Read food labels on cans and food packages. They tell you how much sodium you get in one serving. Check the serving size. If you eat more than one serving, you are getting more sodium. Be aware that sodium can come in forms other than salt, including monosodium glutamate (MSG), sodium citrate, and sodium bicarbonate (baking soda). MSG is often added to food. You can sometimesask for food without MSG or salt. Slowly reducing salt will help you adjust to the taste. Take the salt shaker off the table. Flavor your food with garlic, lemon juice, onion, vinegar, herbs, and spices instead of salt. Do not use soy sauce, steak sauce, onion salt, garlic salt, mustard, or ketchup on your food, unless it is labeled low-sodium or low-salt. Make your own salad dressings, sauces, and ketchup without adding salt. Use fresh or frozen ingredients, instead of canned ones, whenever you can. Choose low-sodium cannedgoods. Eat less processed food and food from restaurants, including fast food. Driving - as before hospitalization Shower/Bath - permitted Wound Care - none Home Oxygen therapy - none Your Discharge Medication List Your Medications New Medications Dose Details furosemide 20 mg tablet Commonly known as: Lasix Take 3 tablets by mouth daily. Start taking on: March 22, 2024 60 mg Quantity: 90 tablet Refills: 3 Continued medications with new dosing Dose Details Entresto 24-26 mg tablet Take 1 tablet by mouth 2 times daily. Generic drug: sacubitriL-valsartan What changed: how much to take 1 tablet Quantity: 90 tablet Refills: 3 rosuvastatin 40 mg tablet Commonly known as: Crestor Take 1 tablet by mouth every evening. What changed: when to take this 40 mg Quantity: 90 tablet Refills: 3 Continued medications, unchanged Dose Details acetaminophen 325 mg tablet Commonly known as: Tylenol Take 2 tablets by mouth every 4 hours as needed. 650 mg Quantity: 30 tablet Refills: 1 amLODIPine 5 mg tablet Commonly known as: Norvasc Take 1 tablet by mouth 2 times daily. 5 mg Quantity: 90 tablet Refills: 3 ezetimibe 10 mg tablet Commonly known as: Zetia Take 1 tablet by mouth daily. 10 mg Refills: 0 glipiZIDE XL 10 mg ER 24 hr tablet Commonly known as: Glucotrol XL TAKE 1 TABLET BY MOUTH ONCE DAILY Refills: 0 metFORMIN 1,000 mg tablet Commonly known as: Glucophage TAKE ONE TABLET BY MOUTH TWICE A DAY Refills: 0 metoprolol tartrate 100 mg tablet Commonly known as: Lopressor Take 1 tablet by mouth 2 times daily. 100 mg Quantity: 180 tablet Refills: 3 Ozempic 0.25 mg or 0.5 mg (2 mg/3 mL) Pen Injector Inject 0.5 mg subcutaneously. Generic drug: semaglutide 0.5 mg Refills: 0 pantoprazole EC [address] tablet Commonly known as: Protonix Take 1 tablet by mouth daily. Start taking on: March 22, 2024 40 mg Quantity: 90 tablet Refills: 3 STOPPED Medications amoxicillin 500 mg capsule Commonly known as: Amoxil aspirin EC 81 mg EC (DR) tablet blood sugar diagnostic strips Strip clopidogreL 75 mg tablet Commonly known as: Plavix multivitamin Tablet Commonly known as: THERAGRAN sodium chloride 1 gram Tablet Follow-up: No future appointments. [facility] - Cardiology: April 09 at 10:45AM PCP Tamia KISER at March 26 at 2:10 PM Your Inpatient Medical Team at [facility] Name(s) of your inpatient provider(s): Attending: Avtar Palafox MD Fellow: Byron Carlson MD Resident: Perry Ramirez MD Survey Crew Chief: Rachel Louie MD Your Primary Care Provider: RASHEL Do [phone] For questions regarding this document or issues relating to this hospitalization on the Medical Service, please contact your inpatient physician through the [facility] Pressroom Foreman . Issues afterhours and on weekends will be handled by the Hospitalist staff on-call. documented in this encounter Medications at Time of Discharge Medication Sig Dispensed Refills Start Date End Date amLODIPine (Norvasc) 5 mg tablet Take 1 tablet by mouth 2 times daily. 90 tablet 3 03/21/2024 metoprolol tartrate (Lopressor) 100 mg tablet Take 1 tablet by mouth 2 times daily. 180 tablet 3 03/21/2024 pantoprazole EC (Protonix) [address] tablet Take 1 tablet by mouth daily. 90 tablet 3 03/22/2024 rosuvastatin (Crestor) 40 mg tablet Take 1 tablet by mouth every evening. 90 tablet 3 03/21/2024 sacubitriL-valsartan (Entresto) 24-26 mg tablet Take 1 tablet by mouth 2 times daily. 90 tablet 3 03/21/2024 acetaminophen (Tylenol) 325 mg tablet Take 2 tablets by mouth every 4 hours as needed. 30 tablet 1 03/21/2024 furosemide (Lasix) 20 mg tablet Take 3 tablets by mouth daily. 90 tablet 3 03/22/2024 ezetimibe (Zetia) 10 mg tablet Take 1 tablet by mouth daily. 03/03/2024 semaglutide (Ozempic) 0.25 mg or 0.5 mg (2 mg/3 mL) Pen Injector Inject 0.5 mg subcutaneously. glipiZIDE XL (Glucotrol XL) 10 mg Tablet Extended Rel 24 hr TAKE 1 TABLET BY MOUTH ONCE DAILY 05/03/2020 metFORMIN (GLUCOPHAGE) 1,000 mg Tablet TAKE ONE TABLET BY MOUTH TWICE A DAY 04/10/2020 documented as of this encounter Progress Notes * Avtar Palafox MD - 03/20/2024 7:59 AM EDT Images from the original note were not included. Cardiology Progress Note Patient info: Name: Johnson Tobar : 1950 PCP: RASHEL Do PCP phone number: [phone] Date of Admission: 03/17/2024 ( Hospital Day 3 days ) Attending: Carlos Oakley MD ID: Johnson Tobar is a 73 y.o. male ASCVD s/p CABG x 3 and RCA PCI (06/2023), severe s/p AVR(05/2020), DM2, HTN, HLD transferred from [facility] presenting with shortness of breath, hypoxemia (SpO2 87%) and cough 24 Hour Events/Subjective: Yesterday - No acute events overnight Today AM - Denies shortness of breath, chest pain or palpitations. He refers dysphagia. Objective: Vitals Last value Range last 24 hrs Temperature Temp: 36.9 ??C (98.4 ??F) Temp: [36.4 ??C (97.6 ??F)-36.9 ??C (98.4 ??F)] Heart Rate Heart Rate: 74 Heart Rate: [66-79] Blood Pressure BP: 97/60 BP: (80-109)/(53-70) Art Line BP BP (Arterial Line): -- MAP (NBP): [63 mmHg-82 mmHg] Respiratory Rate Resp: 18 Resp: [18-19] SpO2 SpO2: 97 % SpO2: [92 %-99 %] Oxygen Delivery Oxygen Therapy O2 Device: None (Room air) O2 Flow Rate (L/min): 1.5 L/min Reason for Oxygen: Titration down from previous higher respiratory or O2 need I&O's/ Weights Intake/Output Summary (Last 24 hours) at 03/20/2024 0754 Last data filed at 03/20/2024 0351 Gross per 24 hour Intake 640 ml Output 850 ml Net -210 ml Admit wt: 74.75 kg Physical Exam General: awake, interactive, not in acute distress. HEENT: normocephalic, anicteric sclerae, no conjunctival pallor CV: cardiac sounds regular, rhythmic. No murmurs, rubs, or gallops Pulm: lungs clear to auscultation bilaterally. No wheezes or rhonchi. Normal work of breathing Abd: soft, non-tender, no rebound or guarding Ext: Warm, well perfused. No cyanosis or edema. Distal pulses 2+ and symmetric. Neuro: oriented in time, space, and person. No focal deficits noted, sensation grossly intact Skin: no rashes, lesions, or ulcerations noted Lines/Drains/Airways: PIV 03/17/241999 20 gauge (Active) Site Preparation/Maintenance dressing: dry and intact 03/18/24513 Phlebitis 0-->no symptoms 03/18/24513 Infiltration 0-->no symptoms 03/18/24513 Labs Recent Labs 03/17/24 2334 WBC 7.96 HGB 10.1* HCT 31.2* PLATELET 221 MCV 84.1 Recent Labs 03/19/24 0704 03/17/24 2334 NA 134* 137 CL 96* 100 CO2 26 22 K 4.3 3.8 MAGNESIUM -- 0.65* CALCIUM 9.2 9.1 BUN 15 14 CREATININE 1.11 1.11 LFTs Recent Labs 03/17/24 2334 PROT 6.7 ALBUMIN 3.6 AST 26 ALT 16 ALKPHOS 105 BILITOT 0.7 BILIDIR 0.3 Cardiac Enzymes Recent Labs 03/17/24 2334 PROBNP 7,905* Endocrine Recent Labs 02/24/24 1331 TSH 2.07 Recent Labs 03/20/24 0725 03/20/24 0350 03/20/24 0008 03/19/24 1904 03/19/24 1815 03/19/24 1609 03/19/24 1116 03/19/24 0728 03/18/24 1947 03/18/24 1636 03/18/24 1409 03/18/24 1215 POCGLU 138 145 147 122 111 273* 271* 149 110 246* 266* 291* Microbiology Microbiology Results (Last 30 days) Procedure Component Value Units Date/Time Respiratory Panel PCR [[id number]] (Normal) Collected: 03/18/24 000 Lab Status: Final result Specimen: Swab from Nasopharynx Updated: 03/18/24 0129 Respiratory Panel PCR Negative Adenovirus Not Detected Coronavirus HKU1 Not Detected Coronavirus NL63 Not Detected Coronavirus 229E Not Detected Coronavirus OC43 Not Detected SARS-CoV-2 Not Detected Human Metapneumovirus Not Detected Human Rhinovirus/Enterovirus Not Detected Influenza A Not Detected Influenza B Not Detected Parainfluenza 1 Not Detected Parainfluenza 2 Not Detected Parainfluenza 3 Not Detected Parainfluenza 4 Not Detected Respiratory Syncytial Virus Not Detected Chlamydophila pneumoniae Not Detected Mycoplasma pneumoniae Not Detected Narrative: Respiratory Panels are performed on the [place] using multiplexed PCR nucleic acid detection. Negative results do not preclude respiratory infection and should not be used as the sole basis for diagnosis, treatment, or other management decisions. Imaging CXR (03/18) IMPRESSION New small pleural effusions and findings favored represent pulmonary edema. Underlying pneumonia would have to be excluded clinically. Head CT (03/18) IMPRESSION 1. Sequela of prior infarct involving the posterior lateral right thalamus and posterior medial right temporal lobe. 2. 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 3. No hemorrhagic transformation. TTE (03/18) Interpretation Summary Technically limited study due to difficult imaging windows. Left ventricle is of normal size. Wall thickness is mildly increased. Left ventricular systolic function is mildly reduced. The left ventricular ejection fraction is 42% by Castro's biplane. There is a large sized anterior, posterior, and lateral wall motion abnormality with hypokinesis to akinesis of the segments. Right ventricle is not well visualized. It is probably mildly dilated and systolic function is at most mildly reduced. Peak RVSP is elevated at 57 mmHg plus RA pressure. Atria are not well visualized. 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 There is severe mitral stenosis with a mean gradient of 7 mmHg at a HR of 70 BPM, valve arera by planimetry 1.3 cm2. There is mild mitral regurgitation. There is a well seated prosthetic valve in the aortic position without regurgitation. The mean gradient across the prosthetic valve is 5 mmHg. There is moderate to severe tricuspid regurgitation. Compared to prior study 02/24/24 left ventricular segmental wall motions abnormalities are new. Medications Scheduled Meds: furosemide 60 mg Oral Daily insulin lispro 1-6 Units Subcutaneous Q4H AMI insulin glargine (Lantus;Semglee) (100 unit/mL) subcutaneous injection 14 Units Subcutaneous Daily insulin lispro 0-8 Units Subcutaneous TID WC amLODIPine 5 mg Oral BID aspirin EC 81 mg Oral Daily ezetimibe 10 mg Oral Daily metoprolol tartrate 100 mg Oral BID pantoprazole EC 40 mg Oral Daily rosuvastatin 40 mg Oral QPM sacubitriL-valsartan 1 tablet Oral BID sodium chloride 0.9 % (flush) 5 mL Intravenous BID tamsulosin 0.4 mg Oral Daily Continuous Infusions: PRN Meds:.glucose 40% oral geL OR dextrose OR glucagon, sodium chloride 0.9 % (flush), lidocaine, nitroGLYcerin, acetaminophen Assessment & Plan: Johnson Tobar is a 73 y.o. male with medical history of ASCVD s/p CABG x 3 and RCA PCI (06/2023), severe s/p AVR (05/2020), DM2, HTN, HLD transferred from [facility] presenting with shortness of breath, hypoxemia (SpO2 87%) and cough. We will switch to oral diuretic therapy today and observe him for responsiveness to this therapy. Given his complex cardiovascular history, we will observe for additional 24 hours to establish appropriate oral dosing of diuretic. #Acute on chronic HFpEF (LVEF 55%) #Valvular heart disease (mixed moderate MS/moderate MR/moderate TR) #Severe status post aortic valve replacement, bioprosthetic, 05/2022 - Hold furosemide 60 mg qd, for a net negative goal of -1L - Start torsemide 40 mg qd tomorrow - Continue with metoprolol tartrate 100 mg qd - Continue with Entresto 24-26 mg qd #ASCVD s/p CABG and PCI to RCA (06/2023) #Ischemic CVA s/p tPA with LHC, R TOOLS DEVELOPER occlusion #Hemorrhagic CVA (03/09/2024) - Continue with aspirin 81 mg qd - Continue with ezetimibe 10 mg qd #Hyponatremia, resolved - Continue to monitor #Hypomagnesemia, improved - Continue to monitor, replace for a goal of Mg > 1 #Type 2 Diabetes Mellitus - Continue with moderate sensitive insulin sliding scale, for a goal of < 180 POCT glucose aftermeals and < 140 POCT at all other times #Rounding checklist Diet: Carb Control diet 60/60/75 CHO counting level 2 2 GM NA; 1500 mL FLUID DVT Prophylaxis: SCD GI Prophylaxis: Not indicated at this time Dispo: Pending clinical course CODE STATUS: Attempt Cardiopulmonary Resuscitation - Inpatient Rachel Danielson MD Internal Medicine, PGY-1 Cardiology, Pager#[phone] 03/20/24 7:59 AM Cardiology Staff Addendum Johnson Tobar is a 73 y.o. male whom I saw today with Dr. Liban Danielson. I have personally interviewed and examined the patient and reviewed appropriate data, including labs, ECGs, and other diagnostic studies. I agree with the principal findings documented above, with additions and exceptions as below. The assessment and plan were formulated in discussion with me. Patient improved. Switching to oral diuretic today with plan for discharge tomorrow. Avtar Palafox MD, ELOISE, FACC, FACP, FASE Cardiovascular Medicine * Rachel Michel MD - 03/19/2024 1:48 PM EDT Images from the original note were not included. Cardiology Progress Note Patient info: Name: Johnson Tobar : 1950 PCP: RASHEL Do PCP phone number: [phone] Date of Admission: 03/17/2024 ( Hospital Day 2 days ) Attending: Carlos Oakley MD ID: Johnson Tobar is a 73 y.o. male ASCVD s/p CABG x 3 and RCA PCI (06/2023), severe s/p AVR(05/2020), DM2, HTN, HLD transferred from [facility] presenting with shortness of breath, hypoxemia (SpO2 87%) and cough 24 Hour Events/Subjective: Yesterday - No acute events overnight Today AM - Denies shortness of breath, weaned off oxygen supplementation with NC Objective: Vitals Last value Range last 24 hrs Temperature Temp: 36.4 ??C (97.6 ??F) Temp: [36.1 ??C (96.9 ??F)-36.6 ??C (97.8 ??F)] Heart Rate Heart Rate: 69 Heart Rate: [69-84] Blood Pressure BP: 93/58 BP: (93-112)/(53-89) Art Line BP BP (Arterial Line): -- MAP (NBP): [67 mmHg-96 mmHg] Respiratory Rate Resp: 18 Resp: [15-20] SpO2 SpO2: 98 % SpO2: [96 %-100 %] Oxygen Delivery Oxygen Therapy O2 Device: None (Room air) O2 Flow Rate (L/min): 1.5 L/min Reason for Oxygen: Titration down from previous higher respiratory or O2 need I&O's/ Weights Intake/Output Summary (Last 24 hours) at 03/19/2024 1348 Last data filed at 03/19/2024 1300 Gross per 24 hour Intake 698 ml Output 2300 ml Net -1602 ml Admit wt: 74.75 kg Physical Exam General: awake, interactive, not in acute distress. HEENT: normocephalic, anicteric sclerae, no conjunctival pallor CV: cardiac sounds regular, rhythmic. No murmurs, rubs, or gallops Pulm: fine crackles on middle and lower lung bases. No wheezes or rhonchi. Slightly increased work of breathing Abd: soft, non-tender, no rebound or guarding Ext: Warm, well perfused. No cyanosis or edema. Distal pulses 2+ and symmetric Neuro: oriented in time, space, and person. No focal deficits noted, sensation grossly intact Skin: no rashes, lesions, or ulcerations noted Lines/Drains/Airways: PIV 03/17/241999 20 gauge (Active) Site Preparation/Maintenance dressing: dry and intact 03/18/24513 Phlebitis 0-->no symptoms 03/18/24513 Infiltration 0-->no symptoms 03/18/24513 Labs Recent Labs 03/17/24 2334 WBC 7.96 HGB 10.1* HCT 31.2* PLATELET 221 MCV 84.1 Recent Labs 03/19/24 0704 03/17/24 2334 NA 134* 137 CL 96* 100 CO2 26 22 K 4.3 3.8 MAGNESIUM -- 0.65* CALCIUM 9.2 9.1 BUN 15 14 CREATININE 1.11 1.11 LFTs Recent Labs 03/17/24 2334 PROT 6.7 ALBUMIN 3.6 AST 26 ALT 16 ALKPHOS 105 BILITOT 0.7 BILIDIR 0.3 Cardiac Enzymes Recent Labs 03/17/24 2334 PROBNP 7,905* Endocrine Recent Labs 02/24/24 1331 TSH 2.07 Recent Labs 03/19/24 1116 03/19/24 0728 03/18/24 1947 03/18/24 1636 03/18/24 1409 03/18/24 1215 03/18/24 1214 03/18/24 0754 03/18/24 0126 POCGLU 271* 149 110 246* 266* 291* 254* 158 155 Microbiology Microbiology Results (Last 30 days) Procedure Component Value Units Date/Time Respiratory Panel PCR [[id number]] (Normal) Collected: 03/18/24 0008 Lab Status: Final result Specimen: Swab from Nasopharynx Updated: 03/18/24 0129 Respiratory Panel PCR Negative Adenovirus Not Detected Coronavirus HKU1 Not Detected Coronavirus NL63 Not Detected Coronavirus 229E Not Detected Coronavirus OC43 Not Detected SARS-CoV-2 Not Detected Human Metapneumovirus Not Detected Human Rhinovirus/Enterovirus Not Detected Influenza A Not Detected Influenza B Not Detected Parainfluenza 1 Not Detected Parainfluenza 2 Not Detected Parainfluenza 3 Not Detected Parainfluenza 4 Not Detected Respiratory Syncytial Virus Not Detected Chlamydophila pneumoniae Not Detected Mycoplasma pneumoniae Not Detected Narrative: Respiratory Panels are performed on the [place] using multiplexed PCR nucleic acid detection. Negative results do not preclude respiratory infection and should not be used as the sole basis for diagnosis, treatment, or other management decisions. Imaging CXR (03/18) IMPRESSION New small pleural effusions and findings favored represent pulmonary edema. Underlying pneumonia would have to be excluded clinically. Head CT (03/18) IMPRESSION 1. Sequela of prior infarct involving the posterior lateral right thalamus and posterior medial right temporal lobe. 2. 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 3. No hemorrhagic transformation. Medications Scheduled Meds: insulin lispro 1-6 Units Subcutaneous Q4H AMI [START ON 03/20/2024] insulin glargine (Lantus;Semglee) (100 unit/mL) subcutaneous injection 14 UnitsSubcutaneous Daily insulin lispro 0-8 Units Subcutaneous TID WC amLODIPine 5 mg Oral BID aspirin EC 81 mg Oral Daily ezetimibe 10 mg Oral Daily metoprolol tartrate 100 mg Oral BID pantoprazole EC 40 mg Oral Daily rosuvastatin 40 mg Oral QPM sacubitriL-valsartan 1 tablet Oral BID sodium chloride 0.9 % (flush) 5 mL Intravenous BID tamsulosin 0.4 mg Oral Daily Continuous Infusions: PRN Meds:.glucose 40% oral geL OR dextrose OR glucagon, sodium chloride 0.9 % (flush), lidocaine, nitroGLYcerin, acetaminophen Assessment & Plan: Johnson Tobar is a 73 y.o. male with medical history of ASCVD s/p CABG x 3 and RCA PCI (06/2023), severe s/p AVR (05/2020), DM2, HTN, HLD transferred from [facility] presenting with shortness of breath, hypoxemia (SpO2 87%) and cough. Johnson does not seem fluid overload as he reached his net negative goal for yesterday. We will continue diuresis with a less strict negative goal of -1L. We will engage Neurology for recommendations for continuation of his DAPT regimen after discharge. #Acute on chronic HFpEF (LVEF 55%) #Valvular heart disease (mixed moderate MS/moderate MR/moderate TR) #Severe status post aortic valve replacement, bioprosthetic, 05/2022 - Furosemide IV 80 mg one dose, for a net negative goal of -1L - Consult Neurology, appreciate recommendations for DAPT therapy #ASCVD s/p CABG and PCI to RCA (06/2023) #Ischemic CVA s/p tPA with LHC, R TOOLS DEVELOPER occlusion #Hemorrhagic CVA (03/09/2024) - Continue with aspirin 81 mg qd #Hyponatremia, resolved - Continue to monitor #Hypomagnesemia, improved - Continue to monitor, replace for a goal of Mg > 1 #Rounding checklist Diet: Carb Control diet 60/60/75 CHO counting level 2 2 GM NA; 1500 mL FLUID DVT Prophylaxis: SCD GI Prophylaxis: Not indicated at this time Dispo: Pending clinical course CODE STATUS: Attempt Cardiopulmonary Resuscitation - Inpatient Rachel April Danielson MD Internal Medicine, PGY-1 Cardiology, Pager#[phone] 03/19/24 1:48 PM Associated attestation - Carlos Oakley MD - 03/19/2024 3:51 PM EDT #Acute decompensated heart failure, do not suspect ACS #Recent stroke Plan -confirm DAPT ok with neuro -IV diuresis today, oral kike -dc kike. Cardiology Attending Addendum I have interviewed and examined the patient, reviewed the available data, and have discussed my findings, assessment and plan with the patient and the team on rounds today. I agree with Dr. Liban Danielson's note as below which reflects our discussion. Carlos Oakley MD , [facility], [facility] 03/19/24 3:51 PM Pager #[phone] * Bushra Mayen RN - 03/19/2024 7:46 AM EDT I have met with the patient to: discuss discharge planning needs. provide the [facility], Office of Care Management letter from the Hydraulic Lift Driver pertaining to rehab referrals. provide a letter describing our affiliations within the [facility] and educate about their right to choose where referrals are sent. provide a list of Home Health Agencies / Durable Medical Equipment vendors which serve their preferred geographic area. provided patient with CMS Star Quality Rating handout. They have requested referrals to: [facility], [facility] [address] [place] [address] Resumption: RN/PT/OT Note routed to a Silversmith Apprentice who will communicate referrals to facilities and provide any required information. * Rachel Michel MD - 03/18/2024 6:50 AM EDT Images from the original note were not included. Cardiology Progress Note Patient info: Name: Johnson Tobar : 1950 PCP: RASHEL Do PCP phone number: [phone] Date of Admission: 03/17/2024 ( Hospital Day 1 day ) Attending: Carlos Oakley MD ID: Johnson Tobar is a 73 y.o. male ASCVD s/p CABG x 3 and RCA PCI (06/2023), severe s/p AVR(05/2020), DM2, HTN, HLD transferred from [facility] presenting with shortness of breath, hypoxemia (SpO2 87%) and cough 24 Hour Events/Subjective: Yesterday - Admitted yesterday, shortness of breath improving Objective: Vitals Last value Range last 24 hrs Temperature Temp: 36.7 ??C (98 ??F) Temp: [36.6 ??C (97.8 ??F)-36.7 ??C (98 ??F)] Heart Rate Heart Rate: 72 Heart Rate: [72-93] Blood Pressure BP: 131/79 BP: (126-131)/(76-79) Art Line BP BP (Arterial Line): -- MAP (NBP): [92 mmHg-95 mmHg] Respiratory Rate Resp: 18 Resp: [18] SpO2 SpO2: 94 % SpO2: [94 %-97 %] Oxygen Delivery Oxygen Therapy O2 Device: Nasal cannula O2 Flow Rate (L/min): 3 L/min Reason for Oxygen: Subjective dyspnea with no hypoxia I&O's/ Weights Intake/Output Summary (Last 24 hours) at 03/18/2024 0650 Last data filed at 03/18/2024 0400 Gross per 24 hour Intake 240 ml Output 1600 ml Net -1360 ml Admit wt: 74.75 kg Physical Exam General: awake, interactive, not in acute distress. HEENT: normocephalic, anicteric sclerae, no conjunctival pallor CV: cardiac sounds regular, rhythmic. No murmurs, rubs, or gallops Pulm: fine crackles on middle and lower lung bases. No wheezes or rhonchi. Slightly increased work of breathing Abd: soft, non-tender, no rebound or guarding Ext: Warm, well perfused. No cyanosis or edema. Distal pulses 2+ and symmetric Neuro: oriented in time, space, and person. No focal deficits noted, sensation grossly intact Skin: no rashes, lesions, or ulcerations noted Lines/Drains/Airways: PIV 03/17/241999 20 gauge (Active) Site Preparation/Maintenance dressing: dry and intact 03/18/24513 Phlebitis 0-->no symptoms 03/18/24513 Infiltration 0-->no symptoms 03/18/24 05 Labs Recent Labs 03/17/24 2334 WBC 7.96 HGB 10.1* HCT 31.2* PLATELET 221 MCV 84.1 Recent Labs 03/17/24 2334 NA 137 CL 100 CO2 22 K 3.8 MAGNESIUM 0.65* CALCIUM 9.1 BUN 14 CREATININE 1.11 LFTs Recent Labs 03/17/24 2334 PROT 6.7 ALBUMIN 3.6 AST 26 ALT 16 ALKPHOS 105 BILITOT 0.7 BILIDIR 0.3 Cardiac Enzymes Recent Labs 03/17/24 2334 PROBNP 7,905* Endocrine Recent Labs 02/24/24 1331 TSH 2.07 Recent Labs 03/18/24 0126 POCGLU 155 Microbiology Microbiology Results (Last 30 days) Procedure Component Value Units Date/Time Respiratory Panel PCR [[id number]] (Normal) Collected: 03/18/24 0008 Lab Status: Final result Specimen: Swab from Nasopharynx Updated: 03/18/24 0129 Respiratory Panel PCR Negative Adenovirus Not Detected Coronavirus HKU1 Not Detected Coronavirus NL63 Not Detected Coronavirus 229E Not Detected Coronavirus OC43 Not Detected SARS-CoV-2 Not Detected Human Metapneumovirus Not Detected Human Rhinovirus/Enterovirus Not Detected Influenza A Not Detected Influenza B Not Detected Parainfluenza 1 Not Detected Parainfluenza 2 Not Detected Parainfluenza 3 Not Detected Parainfluenza 4 Not Detected Respiratory Syncytial Virus Not Detected Chlamydophila pneumoniae Not Detected Mycoplasma pneumoniae Not Detected Narrative: Respiratory Panels are performed on the [place] using multiplexed PCR nucleic acid detection. Negative results do not preclude respiratory infection and should not be used as the sole basis for diagnosis, treatment, or other management decisions. Imaging CXR (03/18) IMPRESSION New small pleural effusions and findings favored represent pulmonary edema. Underlying pneumonia would have to be excluded clinically. Head CT (03/18) IMPRESSION 1. Sequela of prior infarct involving the posterior lateral right thalamus and posterior medial right temporal lobe. 2. 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 3. No hemorrhagic transformation. Medications Scheduled Meds: amLODIPine 5 mg Oral BID aspirin EC 81 mg Oral Daily ezetimibe 10 mg Oral Daily metoprolol tartrate 100 mg Oral BID pantoprazole EC 40 mg Oral Daily rosuvastatin 40 mg Oral QPM sacubitriL-valsartan 1 tablet Oral BID sodium chloride 0.9 % (flush) 5 mL Intravenous BID tamsulosin 0.4 mg Oral Daily insulin lispro 1-4 Units Subcutaneous TID AC insulin glargine (Lantus;Semglee) (100 unit/mL) subcutaneous injection 8 Units Subcutaneous Daily Continuous Infusions: PRN Meds:.sodium chloride 0.9 % (flush), lidocaine, nitroGLYcerin, acetaminophen, glucose 40% oral geL OR dextrose OR glucagon Assessment & Plan: Johnson Tobar is a 73 y.o. male with medical history of ASCVD s/p CABG x 3 and RCA PCI (06/2023), severe s/p AVR (05/2020), DM2, HTN, HLD transferred from [facility] presenting with shortness of breath, hypoxemia (SpO2 87%) and cough. Overall, Johnson mentions he is doing better now that he is on oxygen supplementation. However, his physical exam is consistent with volume overload in the context of his HFpEF. This is further supported by elevated proBNP and chest x-ray with infiltrates. He has a complex cardiovascular history, which includes both ischemic and hemorrhagic strokes as a complication with DAPT. We will optimize his volume status and engage Neurosurgery for recommendations regarding his DAPT regimen. 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) #Severe status post aortic valve replacement, bioprosthetic, 05/2022 - TTE - Furosemide IV 80 mg one dose, for a net negative goal of -1.5L - Consult Neurosurgery, appreciate recommendations for DAPT therapy #ASCVD s/p CABG and PCI to RCA (06/2023) #Ischemic CVA s/p tPA with LHC, R TOOLS DEVELOPER occlusion #Hemorrhagic CVA (03/09/2024) - Continue with aspirin 81 mg qd #Hyponatremia, resolved - Continue to monitor #Hypomagnesemia, - Continue to monitor, replace for a goal of Mg > 1 #Rounding checklist Diet: Carb Control diet 60/60/75 CHO counting level 2 2 GM NA; 1500 mL FLUID DVT Prophylaxis: SCD GI Prophylaxis: Not indicated at this time Dispo: Pending clinical course CODE STATUS: Attempt Cardiopulmonary Resuscitation - Inpatient Rachel Danielson MD Internal Medicine, PGY-1 Cardiology, Pager#[phone] 03/18/24 6:50 AM Associated attestation - Carlos Oakley MD - 03/18/2024 4:13 PM EDT #Acute decompensated heart failure, do not suspect ACS #Recent stroke Plan -confirm DAPT ok with neuro -IV diuresis Cardiology Attending Addendum I have interviewed and examined the patient, reviewed the available data, and have discussed my findings, assessment and plan with the patient and the team on rounds today. I agree with Dr. Liban Danielson's note as below which reflects our discussion. Carlos Oakley MD , [facility], [facility] 03/18/24 4:13 PM Pager #[phone] documented in this encounter H&P Notes * Saniya Patrick MD - 03/17/2024 11:14 PM EDT Cardiology Admission H&P Patient Name: Johnson Tobar Date of : 1950 Age: 73 y.o. Hospital Admit Date: 03/17/2024 Inpatient Attending: Carlos Oakley MD PCP: RASHEL Do Presenting Diagnosis/Chief Complaint: Shortness of breath Active Problem List: Active Hospital Problems Diagnosis CHF exacerbation NSTEMI (non-ST elevated myocardial infarction) S/P AVR (aortic valve replacement) Type 2 diabetes mellitus ASCVD (arteriosclerotic cardiovascular disease) Status post stenting to his LAD over 11 years ago. LV function normal. No angina. Aortic stenosis No change on echo. Valve area 1.4 cm squared. LV function normal. No other significant valve disease. PA pressure slightly up at 41. Echo 03/11/2020: EF 65%; TOBI 0.8; pV 5.0; mean Gr 57; PASP 35-45; Trivial AI/MR Resolved Hospital Problems No resolved problems to display. History of Present Illness: 73 yo male with pmhx of AsCVD s/p CABG x 3 (MCKEON --> LAD, SVG --> OM1 --> D1) and RCA PCI (06/2023), severe s/p AVR (05/2020), DM2, HTN, HLD is a transfer from [facility] for shortness of breath evaluation and management. History obtained from patient and patient's at bedside. Apparently after patient was discharged from [facility] he was at rehab for about 4 to 5 days, then after couple weeks he was admitted at the hospital because of confusion and slurred speech, was found to have hemorrhagic CVA at that time. States he was discharged on 03/13/2024. Was fairly doing well however last night started to have dry cough was associated with shortness of breath,+ mild orthopnea. Denied any chest pain, pressure or tightness, lightheadedness, dizziness or syncopal events. The shortness of breath continued to progress and called primary care today for which they recommended that he go to the ED for further evaluation. Also admits to significant lower extremity swelling, patient states since he received Lasix at the outside hospital his breathing and lower extremity swelling has significantly improved. Otherwise denies any focal weakness, paresthesias, vision changes, dysphagia, facial droop, slurred speech, heada ches, abdominal pain, diarrhea, nausea or vomiting, dysuria at this time. No fevers or chills or sick contacts. Patient is a transfer from [facility], 03/17/2024. Reviewed records, noted that they presented to their ED on 03/17/2024 with complaints of shortness of breath and reported hypoxia and cough. In the emergency department is found to be 87% on room air and was also tachypneic, noted elevated BNP of215 and then the repeat 1 was 350 and 671. proBNP was elevated up to 7367. Sodium was 135, potassium of 3.2 and WBC count of 10.6, hemoglobin 10.6, platelet count of 244. Chest x-ray was performed and noted to have multifocal bilateral airspace disease. He was diagnosed to have acute decompensated heart failure and pulmonary edema and elevated troponin was thought to be secondary to demand ischemia from pulmonary edema. Given patient had recent history of NSTEMI was complicated by ischemic CVA and followed by hemorrhagic CVA patient was accepted to [facility] for further evaluation and management. Labs in the last 24 hours Sodium 135, potassium 3.2, chloride 98, CO2 22, alkaline phosphatase 115, AST 22, ALT 30, BUN 13, glucose 202, creatinine 1.13, EGFR of 68, calcium of 9.0, total protein 7.6, albumin 3.0, total bili 0.8, magnesium-1.1, troponin I 671, proBNP 7367, procalcitonin less than 0.15. WBC 10.6, hemoglobin 10.6, platelet count 244. Reviewed records/discharge records from [facility], patient was apparently admitted and discharged on 03/13/2024 for altered mental status. On discharge medications reconciliation, noted that patient was started on Lasix 40 mg daily, discontinued atorvastatin and was started on rosuvastatin 40 mg daily, tamsulosin 0.4 mg nightly, amlodipine was changed to 5 mg twice daily, noted that patient was on salt tablets 1 g 3 times daily which on discharge was increased to 2g 3 times daily. Also importantly Plavix and isosorbide mononitrate, omeprazole, oxybutynin and semaglutide were discontinued. Past Medical History: Past Medical History: Diagnosis Date CHF exacerbation 03/17/2024 Gastroesophageal reflux controlled with medication Heart valve disease High blood pressure treated with medication Myocardial infarction Peptic ulcer disease >15 yrs ago S/P AVR (aortic valve replacement) 06/13/2020 Type 2 diabetes mellitus 2014 Type 2 diabetes mellitus, without long-term current use of insulin 06/15/2020 Surgical History/Problems: Past Surgical History: Procedure Laterality Date CORONARY ANGIOPLASTY WITH STENT PLACEMENT 1997 PRG CATH PLMT LEFT HEART CATH & ARTS W/INJ & ANGIO IMG S&I N/A 05/17/2023 CORONARY ANGIOGRAPHY; [facility],POSSIBLE PCI (WRVU 5.6) performed by Avani Danielle MD at [facility] CATHLABS PRG CATH [facility] LEFT HEART CATH & ARTS W/INJ & ANGIO IMG S&I N/A 06/26/2023 CORONARY ANGIOGRAPHY; [facility],POSSIBLE PCI (WRVU 5.6) performed by Avani Danielle MD at [facility] CATHLABS PRO CABG, ARTERIAL, SINGLE Left 06/13/2020 @CABG, USING ARTERIAL GRAFT;SINGLE ARTERIAL GRAFT (WRVU 33.75) performed by Chun Wiley MD at [facility] MAIN OR PRO CABG, ARTERY-VEIN, TWO N/A 06/13/2020 @CABG, TWO VENOUS GRAFTS & ARTERIAL GRAFT (WRVU 7.93) performed by Chun Wiley MD at [facility] MAIN OR PRO ENDOSCOPY W/VIDEO-ASST VEIN HARVEST, CABG Right 06/13/2020 ENDOSCOPIC HARVEST VEIN(S) FOR CABG (WRVU 0.31) performed by Chun Wiley MD at [facility] MAIN OR PRO PERC TRLUML CORONARY STENT W/ANGIO ADDL ART/BRANCH N/A 06/26/2023 STENT PLACEMENT-EACH ADDITIONAL BRANCH OF A MAJOR CORONARY ARTERY (WRVU *) performed by Avani Danielle MD at [facility] CATH LABS PRO PERC TRLUML CORONARY STENT W/ANGIO ONE ART/BRANCH N/A 06/26/2023 STENT PLACEMENT-SINGLE MAJOR CORONARY ARTERY OR BRANCH (WRVU 10.96) performed by Avani Danielle MD at [facility] CATH LABS PRO REPLACEMENT PROSTHETIC AORTIC VALVE OPEN W CARDIOPULMONARY BYPASS HOMOGRF/STENT N/A 06/13/2020 @REPLACE AORTIC VALVE, OPEN, W\CPB, W\PROSTHETIC VALVE (WRVU 41.32) performed by Chun Wiley MD at [facility] MAIN OR Significant Family History: Reviewed, noncontributory to patient's current admission. Social History: Social History Socioeconomic History Marital status: Spouse name: Not on file Number of children: Not on file Years of education: Not on file Highest education level: Not on file Occupational History Not on file Tobacco Use Smoking status: Never Smokeless tobacco: Never Vaping Use Vaping status: Never Used Substance and Sexual Activity Alcohol use: Not Currently Drug use: Never Sexual activity: Not on file Other Topics Concern Not on file Social History Narrative Not on file Social Determinants of Health Financial Resource Strain: Not on file Food Insecurity: No Food Insecurity (02/24/2024) Hunger Vital Sign Worried About Running Out of Food in the Last Year: Never true Ran Out of Food in the Last Year: Never true Transportation Needs: No Transportation Needs (02/24/2024) PRAPARE - Transportation Lack of Transportation (Medical): No Lack of Transportation (Non-Medical): No Physical Activity: Not on file Intimate Partner Violence: Not At Risk (02/23/2024) IPV Inpatient Questions Prevent Contact with Others: no Feels Threatened by Someone: no Feels Unsafe at Home: no Physical Signs of Abuse Present: no Housing Stability: Unknown (02/24/2024) Housing Stability Vital Sign Unable to Pay for Housing in the Last Year: No Number of Times Moved in the Last Year: Not on file Homeless in the Last Year: No REVIEW OF SYSTEMS: Review of Systems Constitutional: Negative for chills, diaphoresis, fatigue and fever. HENT: Negative. Respiratory: Positive for cough and shortness of breath. Cardiovascular: Positive for chest pain and leg swelling. Negative for palpitations. Gastrointestinal: Negative. Endocrine: Negative. Musculoskeletal: Negative. Medications: Medications Prior to Admission Medication Sig Dispense Refill Last Dose acetaminophen (Tylenol) 325 mg tablet Take 2 tablets by mouth every 4 hours as needed. 30 tablet 1 ezetimibe (Zetia) 10 mg tablet Take 1 tablet by mouth daily. sodium chloride 1 gram Tablet Take 1 tablet by mouth 3 times daily. pantoprazole EC (Protonix) [address] tablet Take 1 tablet by mouth daily. aspirin EC 81 mg EC (DR) tablet Take 81 mg by mouth daily. amLODIPine (Norvasc) 5 mg tablet Take 5 mg by mouth 2 times daily. clopidogreL (Plavix) 75 mg tablet Take 1 tablet by mouth daily. 90 tablet 3 sacubitriL-valsartan (Entresto) 24-26 mg tablet Take by mouth 2 times daily. semaglutide (Ozempic) 0.25 mg or 0.5 mg (2 mg/3 mL) Pen Injector Inject 0.5 mg subcutaneously. multivitamin (THERAGRAN) Tablet Take 1 tablet by mouth daily. metoprolol tartrate (Lopressor) 100 mg Tablet Take 1 tablet by mouth 2 times daily. 60 tablet 1 amoxicillin (Amoxil) 500 mg Capsule Take 4 capsules by mouth as needed. Take 4 tablets, 2000mg, 1 hour before dental procedures. blood sugar diagnostic strips Strip Twice daily. One touch verio flex ICD 10 E11.9 50 each 0 glipiZIDE XL (Glucotrol XL) 10 mg Tablet Extended Rel 24 hr TAKE 1 TABLET BY MOUTH ONCE DAILY metFORMIN (GLUCOPHAGE) 1,000 mg Tablet TAKE ONE TABLET BY MOUTH TWICE A DAY rosuvastatin (Crestor) 40 mg Tablet TAKE ONE TABLET BY MOUTH EVERY DAY Allergies: Allergies Allergen Reactions Lisinopril Other (See Comments) PHYSICAL EXAM: Last set of vital signs: BP 130/76 (BP Location (NBP): Right arm, Patient Position: Standing) Pulse 82 Temp 36.6 ??C (97.8 ??F) (Oral) Resp 18 SpO2 95% Physical Exam General-alert and oriented x 3, not in acute respiratory distress HEENT-atraumatic normocephalic, pupils bilaterally equal and reactive, no jugular venous distention Heart-S1-S2 present is lower than the pulmonary area,, regular in rate and rhythm, no murmurs gallops or rubs Respiratory- minimal bibasilar crackles present. Abdomen- soft, non tender, + BS Neuro- No focal neurological deficits, cranial nerves II to XII grossly intact. Extremities- B/L Pulses 2+, 2+ pitting pedal edema up to mid mata Skin- normal Diagnostics: Chest x-ray: Bilateral airspace disease LABS: No results found for this or any previous visit (from the past 24 hour(s)). 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 2D echocardiogram, 02/24/2024 To note this was a technically difficult echo, LV was normal in size and systolic function, EF of 55%, RV mildly dilated with normal systolic function, severe biatrial enlargement, bioprosthesis in the aortic position (SAVR, 23 mm Inspiris bioprosthesis, inserted 06/13/2020). The peak/mean gradient is estimated at 10/4 mmHg. No significant regurgitation. Mixed mitral stenosis/regurgitation with moderate calcific mitral stenosis with mean gradient estimated to be 9 mmHg with moderate MR, moderate TR, RVSP of 45 mmHg. -Given recent 2D echocardiogram, would hold off on repeating echocardiography. -Suspect the heart failure exacerbation is likely triggered by with recent increase in dose of sodium tablets causing fluid retention, complicated additionally by valvular heart disease -Will do Lasix 40 mg IV x 1, noted creatinine to be 1.13. Patient was recently started on Lasix 40 mg daily, patient admits to compliant with his medications and also fluid restriction. -Will obtain chest x-ray, BNP significantly elevated. -Will repeat EKG -Will admit the patient to heart and vascular unit for closer monitoring/cardiac monitoring -will Check BMP, electrolytes and replete accordingly. -Will get respiratory pathogen panel to evaluate for dry cough. # Atherosclerotic coronary artery disease #s/p CABG x 3 (MCKEON --> LAD, SVG --> OM1 --> D1) and RCA PCI (06/2023) # NSTEMI likely type II Status post left heart catheterization, 02/24/2024-noted three-vessel coronary artery disease, LAD, left circumflex and RCA. Patent left internal mammary artery graft to the LAD, obstructive disease of the saphenous vein graft to the OM1/diagonal 1. It was recommended that patient be managed with medical therapy. -However the plan was to consider coronary intervention in the future. (The patient was found to have moderate grade ISR of the previously placed RCA stent. The MCKEON toe LAD with jump graft is patent. The SVG is ostially occluded. Given disease in the proximal LCx, we will perform a stress test, and if ischemic we can consider PCI) -Will continue with aspirin 81 mg daily, Zetia, atorvastatin and yxfz-qqmrvbb-luzf dose -Patient does not have any active signs of ACS at this time. EKG on admission- showed normal sinus rhythm, noted more than [address] depression in lead V3, Q waves in lead III, otherwise no significant ST-T wave changes. Will repeat EKG- noted persistent ST depression in V3 and also about a millimeter ST depression in V4 and V5.. ST depressions are a little bit more prominent compared toThe EKG from 02/24/2024. -Cardiology team to evaluate in AM. -Peak troponin of 600s, will recheck troponin. Will hold off on heparin for anticoagulation in the setting of recent hemorrhagic CVA. # Ischemic CVA status post left heart catheterization, right TOOLS DEVELOPER occlusion # Hemorrhagic CVA, 03/09/2024 Patient was apparently admitted on 03/09/2024 for altered mental status, MRI was obtained at that time-showed evidence of possible hemorrhagic conversion. Was evaluated by teleneurology d, Plavix was discontinued and recommended to take aspirin 81 mg daily. Also the recommendation was to repeat CT scan in a week and consider DAPT if stable in the setting of significant ASCVD. To note patient did develop ischemic CVA post left heart catheterization, status post tPA during that time. MRI brain, 02/25/2024-demonstrated RIGHT temporal lobe and adjacent thalamus infarctions. Vascular imaging showed Right TOOLS DEVELOPER occlusion (distal P2 segment), severe right ICA stenosis, and Moderate-severe right intradural vertebral artery stenosis. Will order CT head without contrast for further evaluation. Will continue with aspirin 81 mg daily for now. # Hyponatremia # Hypomagnesemia Sodium 135 on admission, magnesium level of 1.1. Will discontinue sodium tablets as this is likely the etiology for CHF exacerbation at this time due to its effect of fluid retention. Will check magnesium levels daily and replete accordingly. # Afm-tlmizxy-vrgholwna type 2 diabetes mellitus Hold off on home dose of glipizide and metformin A1c of 8.3, 3 weeks ago. Will add insulin glargine 8 units daily and sliding scale insulin. Diabetic diet # Hypertension-stable Continue with home dose of amlodipine 5 mg twice daily # DVT prophylaxis-SCDs # GI prophylaxis-PPI # CODE STATUS-full code # Disposition-awaiting clinical improvement and cardiology evaluation Provider: Saniya Patrick MD CV hospitalist. Provider #: [id number] 03/17/2024 documented in this encounter Miscellaneous Notes * Plan of Care - Alexa Lopez RN - 03/21/2024 3:19 PM EDT Tele and IV removed. AVS printed and reviewed with patient. Pt brought to entrance 2 to meet ride. Problem: Adult Inpatient Plan of Care Goal: Plan of Care Review Outcome: Outcome (s) achieved Goal: Patient-Specific Goal (Individualized) Outcome: Outcome (s) achieved Goal: Absence of Hospital-Acquired Illness or Injury Outcome: Outcome (s) achieved Goal: Optimal Comfort and Wellbeing Outcome: Outcome (s) achieved Goal: Readiness for Transition of Care Outcome: Outcome (s) achieved Problem: Fall Injury Risk Goal: Absence of Fall and Fall-Related Injury Outcome: Outcome (s) achieved Problem: Adjustment to Illness (Heart Failure) Goal: Optimal Coping Outcome: Outcome (s) achieved Problem: Cardiac Output Decreased (Heart Failure) Goal: Optimal Cardiac Output Outcome: Outcome (s) achieved Problem: Dysrhythmia (Heart Failure) Goal: Stable Heart Rate and Rhythm Outcome: Outcome (s) achieved Problem: Fluid Imbalance (Heart Failure) Goal: Fluid Balance Outcome: Outcome (s) achieved Problem: Functional Ability Impaired (Heart Failure) Goal: Optimal Functional Ability Outcome: Outcome (s) achieved Problem: Oral Intake Inadequate (Heart Failure) Goal: Optimal Nutrition Intake Outcome: Outcome (s) achieved Problem: Respiratory Compromise (Heart Failure) Goal: Effective Oxygenation and Ventilation Outcome: Outcome (s) achieved Problem: Sleep Disordered Breathing (Heart Failure) Goal: Effective Breathing Pattern During Sleep Outcome: Outcome (s) achieved Problem: Diabetes Comorbidity Goal: Blood Glucose Level Within Targeted Range Outcome: Outcome (s) achieved * Plan of Care - Alen Collins RN - 03/20/2024 3:38 PM EDT OUTCOME EVALUATION NOTE: OUTCOME SUMMARY: Patent admitted with acute decompensated heart failure has been diuresing and needs 1 more day to observe before discharging. PLAN MOVING FORWARD: Cont to monitor INDIVIDUALIZED FALL PREVENTION INTERVENTIONS: Patient-specific fall risk factors per assessment: [current deficits]: deconditioned Assistance [level of assistance required for transfers and ambulation]: standby Supervision [direct monitoring required during toileting and ADLs]: call blanco Surveillance [continuous indirect monitoring]: hourly rounds Patient-specific fall prevention interventions for sensory deficits provided, if applicable: CPG GOAL OUTCOME EVALUATION: * Consult Note - Ron Stevenson RN - 03/20/2024 9:49 AM EDT During VAS Purposeful Rounding, an assessment of your patient's venous access was performed fby theVascular Access Service. The following tasks were performed if needed and communicated to the bedside RN Choose all that apply: [] PIV(s) checked for patency if daily need for flush needs to be performed [] CVAD was checked for patency if daily flush needs to be performed [] IV tubing clamped or capped if needed [] Visual inspection of your patient's central line dressing integrity [x] Review of indications for vascular access [] A photo was taken of your patient's central line [x] Visual inspection of your patient's IV dressing integrity [] Other While rounding an intervention was needed and communicated to the bedside RN Choose all that apply: [] Nonocclusive IV dressing addressed [] Nonocclusive CVAD dressing (please identify type of line) [] Infusion site leaking [] IV not patent and removed [] IV not indicated [] IV placed [] IV restarted [] Implanted Port, PICC or ML dressing changed if needed (either PRN or weekly) [] Other * Plan of Care - Zainab Cox RN - 03/19/2024 6:08 PM EDT Assumed care of pt at 1500. BP hypotensive to 85/54. MD notified, EKG ordered. IV lasix held. A&Ox4, able to follow commands. Pt asymptomatic. BG elevated, protocol followed. * Plan of Care - Alen Collins RN - 03/19/2024 2:17 PM EDT OUTCOME EVALUATION NOTE: OUTCOME SUMMARY: Patient admitted with heart failure is diuresing and is near expected goal weight. Patient will cont to diurese lightly and needs neuro eval to det if he can be anti-coagulated at this point. PLAN MOVING FORWARD: Cont to monitor INDIVIDUALIZED FALL PREVENTION INTERVENTIONS: Patient-specific fall risk factors per assessment: [current deficits]: decond Assistance [level of assistance required for transfers and ambulation]: standby Supervision [direct monitoring required during toileting and ADLs]: call bellrounds Surveillance [continuous indirect monitoring]: hourly rounds Patient-specific fall prevention interventions for sensory deficits provided, if applicable: CPG GOAL OUTCOME EVALUATION: * Care Management - Vanita Cunningham - 03/19/2024 10:16 AM EDT Johnson completed a [place] Advanced Directive and stated that if he was ever unable to make his own medical decisions that he would want his , Emili Tobar, to make medical decisions on his behalf. If Emili was unavailable or unwilling for any reason, his alternate healthcare agent is his son Kimberley Tobar. * Plan of Care - Caterina Calderon RN - 03/18/2024 4:22 PM EDT SHIFT SUMMARY: CT head completed overnight in early AM. CXR completed. Trop 217/250 today. Urine sodium sent afterIVP lasix. Being closely followed by HF team. Echo completed today showed new decrease in EF 42% (down 55%). AOx4. Bed/chair alarm maintained for high fall risk. VSS on 3LNC, assessment as charted. Pt denies CP or SOB. NSR on tele, see scanned documents. See flowsheets for I&O. Call blanco within reach. at bedside. Droplet isolation d/c'd. Skin prevention: excess stickers and tape removed. Bath given, linens changed. Medication changes: 2g Mg IV. 40 K PO. 80mg lasix IVP x2. Pain control: denies pain PLAN MOVING FORWARD: Continue IV diuresis and wean O2- no O2 at home per nursing report Continue to monitor per protocol Discharge planning as appropriate-PT/OT? INDIVIDUALIZED FALL PREVENTION INTERVENTIONS: Patient-specific fall risk factors per assessment: [current deficits]: Limited mobility, tele wires, SPO2 monitor wire, unfamiliar environment, new O2 requirement Assistance [level of assistance required for transfers and ambulation]: SBA Supervision [direct monitoring required during toileting and ADLs]: SBA Surveillance [continuous indirect monitoring]: Telemetry, continuous pulse ox Problem: Adult Inpatient Plan of Care Goal: Plan of Care Review Outcome: Ongoing (Interventions Implemented as Appropriate) Goal: Patient-Specific Goal (Individualized) Outcome: Ongoing (Interventions Implemented as Appropriate) Goal: Absence of Hospital-Acquired Illness or Injury Outcome: Ongoing (Interventions Implemented as Appropriate) Goal: Optimal Comfort and Wellbeing Outcome: Ongoing (Interventions Implemented as Appropriate) Goal: Readiness for Transition of Care Outcome: Ongoing (Interventions Implemented as Appropriate) Problem: Fall Injury Risk Goal: Absence of Fall and Fall-Related Injury Outcome: Ongoing (Interventions Implemented as Appropriate) Problem: Adjustment to Illness (Heart Failure) Goal: Optimal Coping Outcome: Ongoing (Interventions Implemented as Appropriate) Problem: Cardiac Output Decreased (Heart Failure) Goal: Optimal Cardiac Output Outcome: Ongoing (Interventions Implemented as Appropriate) Problem: Dysrhythmia (Heart Failure) Goal: Stable Heart Rate and Rhythm Outcome: Ongoing (Interventions Implemented as Appropriate) Problem: Fluid Imbalance (Heart Failure) Goal: Fluid Balance Outcome: Ongoing (Interventions Implemented as Appropriate) Problem: Functional Ability Impaired (Heart Failure) Goal: Optimal Functional Ability Outcome: Ongoing (Interventions Implemented as Appropriate) Problem: Oral Intake Inadequate (Heart Failure) Goal: Optimal Nutrition Intake Outcome: Ongoing (Interventions Implemented as Appropriate) Problem: Respiratory Compromise (Heart Failure) Goal: Effective Oxygenation and Ventilation Outcome: Ongoing (Interventions Implemented as Appropriate) Problem: Sleep Disordered Breathing (Heart Failure) Goal: Effective Breathing Pattern During Sleep Outcome: Ongoing (Interventions Implemented as Appropriate) * Initial Assessments - Susanna Mckeon MSW - 03/18/2024 11:53 AM EDT Office of Care Management Initial Assessment ANGELINE Jin reviewed record and discussed patient with Care Team. Source of Information: Team, bedside nurse, medical record, and Patient ANGELINE Introduced self/reviewed role; services accepted. Admitted From: Transfer from another hospital Location: [facility] Reason for Hospitalization: SOB Past medical History: Past Medical History: Diagnosis Date CHF exacerbation 03/17/2024 Gastroesophageal reflux controlled with medication Heart valve disease High blood pressure treated with medication Myocardial infarction Peptic ulcer disease >15 yrs ago S/P AVR (aortic valve replacement) 06/13/2020 Type 2 diabetes mellitus 2014 Type 2 diabetes mellitus, without long-term current use of insulin 06/15/2020 Hospitalizations Within the Past 30 Days: no previous admission in last 30 days Current Decision-Making Capacity: Self If AD's have not been completed the following surrogate would be surrogate decision maker per [place] decision making law. (Only good for 180 days) Any patient receiving care in [place] must abide by [place] law. The hierarchy for surrogate decision making is: (a) Patient???s spouse or civil union partner unless there is a divorce proceeding, separation agreement, or restraining order limiting that person???s relationship with the patient. Emili Tobar (b) Any adult son or daughter of the patient. (c) Either parent of the patient. (d) Any adult brother or sister of the patient. (e) Any adult grandchild of the patient. (f) Any grandparent of the patient. (g) Any adult aunt, uncle, niece, or nephew of the patient. (h) A close friend of the patient. (i) The agent with financial power of privacy attorney or a conservator appointed in accordance with RSA 464-A. (j) The guardian of the patient???s estate. Advance Care Planning: Attempt Cardiopulmonary Resuscitation - Inpatient <no information> -Advanced Directive: No, need to discuss (Referral sent to RS) Current Coping/Education/Information Needs: None noted Current Functional Ability: Independent, Assistive Equipment Functional Status Prior to Admission: Independent, Assistive Equipment Prior ADLs & IADLs: Assistance Needed with ADLs & IADLs Cooking / Eating: Family / Friends Provide Meals Cleaning: Family / Friends do Cleaning Laundry: Has Assistance, In the Home Driving: Family / Friends Provide Rides Groceries: Family / Friends Provide Groceries Home Environment: Others in the home: spouse (Lives w/ , Emili.). Current Living Arrangements: home/apartment/condo. Accessibility Concerns:2-story home (stairs w/ railings). 5 [address]. No concerns.. In the last 12 months, was there a time when you were not able to pay the mortgage or rent on time?: No In the past 12 months, how many times have you moved where you were living?: 1 At any time in the past 12 months, were you homeless or living in a retirement (including now)?: No In the past 12 months has the electric, gas, oil, or water eSolar threatened to shut off services in your home?: No Within the past 12 months, you worried that your food would run out before you got the money to buymore.: Never true Within the past 12 months, the food you bought just didn't last and you didn't have money to get more.: Never true Resource / Environmental Concerns: Resource/Environmental Concerns: none In the past 12 months, has lack of transportation kept you from medical appointments or from getting medications?: No In the past 12 months, has lack of transportation kept you from meetings, work, or from getting things needed for daily living?: No Current DME: walker - rolling (Uses [employer] regularly for steadiness) Home Address confirmed as: [address] [place] [address] [address] [place] [address] Social & Family Supports: All names listed below confirmed with patient as current and correct Extended Emergency Contact Information Primary Emergency Contact: Emili Tobar Address: [address] [place] [address] [address] [place] [address] [place] Relation: Spouse Secondary Emergency Contact: Ilda Tobar Mobile Relation: Parent Current Care Provided by: self Provides Primary Care For: no one Caregiver if needed: none Quality of Family relationships: helpful, involved, supportive Community Resources being provided currently: none Behavioral Health History: None noted Substance Use/Abuse confirmed: Social History Tobacco Use Smoking Status Never Smokeless Tobacco Never In the past year have you used an illegal drug or used a prescription medication for non-medical reasons?: No 0 No problems reported 1-2 Low level 3-5 Moderate level 6-8 Substantial level 9- 10 Severe level In the past year have you had 5 or more drinks a day containing alcohol?: No 0 to 7 points: Low risk 8 to 15 points: Medium risk 16 to 19 points: High risk 20 to 40 points: Addiction likely Other Pertinent/Service Specific Information: Health/Prescription Coverage: Primary Insurance: [employer] MEDICARE Payor: [facility] / Plan: [facility] / Product Type: *No Product type* / Secondary Insurance: N/A ; Prescription Coverage: Yes Preferred Pharmacy: [id number] - [place], [place] - [address] [facility] [address] [facility] [address] Status: Patient is a : No Primary Care Provider confirmed: RASHEL Do [phone] Patient/Caregiver Goals of Treatment: Potential Needs for Transition of Care: unable to assess Agency Referrals: TBD Transportation: no concerns Transportation Anticipated: family or friend will provide (Emili (spouse) will provide a ride) Concerns to be Addressed: unable to assess, denies needs/concerns at this time Assessment: Patient is admitted to Cardiology service for CHF exacerbation. Plan going forward: Pending hospital course. Care Management team will continue to follow and assist with discharge planing and coordination of care as indicated. ANGELINE Yancey Cardiology, ext. [phone] * Consult Note - Stephanie Fortune LPN - 03/18/2024 10:30 AM EDT During VAS Purposeful Rounding, an assessment of your patient's venous access was performed fby theVascular Access Service. The following tasks were performed if needed and communicated to the bedside RN Choose all that apply: [] PIV(s) checked for patency if daily need for flush needs to be performed [] CVAD was checked for patency if daily flush needs to be performed [] IV tubing clamped or capped if needed [] Visual inspection of your patient's central line dressing integrity [x] Review of indications for vascular access [] A photo was taken of your patient's central line [x] Visual inspection of your patient's IV dressing integrity [] Other While rounding an intervention was needed and communicated to the bedside RN Choose all that apply: [] Nonocclusive IV dressing addressed [] Nonocclusive CVAD dressing (please identify type of line) [] Infusion site leaking [] IV not patent and removed [] IV not indicated [] IV placed [] IV restarted [] Implanted Port, PICC or ML dressing changed if needed (either PRN or weekly) [] Other documented in this encounter Plan of Treatment Upcoming Encounters Date Type Department Care Team (Late st Contact Info) Description 08/27/2024 2:30 PM EST [place] [address] Susanna Cm APRN [facility] [place] [address] Scheduled Referrals Name Type Priority Associated Diagnoses Orde r Schedule Referral to Home Health Outpatient Referral Routine Acute on chronic congestive heart failure, unspecified heart failure type Ordered: 03/21/2024 documented as of this encounter Procedures Procedure Name Priority Date/Time Associated Diagnosis Comments POC, GLUCOSE Routine 03/21/2024 2:20 PM EDT POC, GLUCOSE Routine 03/21/2024 11:28 AM EDT POC, GLUCOSE Routine 03/21/2024 7:30 AM EDT POC, GLUCOSE Routine 03/21/2024 3:17 AM EDT POC, GLUCOSE Routine 03/20/2024 11:58 PM EDT POC, GLUCOSE Routine 03/20/2024 7:40 PM EDT POC, GLUCOSE Routine 03/20/2024 4:28 PM EDT POC, GLUCOSE Routine 03/20/2024 12:01 PM EDT POC, GLUCOSE Routine 03/20/2024 7:25 AM EDT POC, GLUCOSE Routine 03/20/2024 3:50 AM EDT POC, GLUCOSE Routine 03/20/2024 12:08 AM EDT POC, GLUCOSE Routine 03/19/2024 7:04 PM EDT POC, GLUCOSE Routine 03/19/2024 6:15 PM EDT POC, GLUCOSE Routine 03/19/2024 4:09 PM EDT POC, GLUCOSE Routine 03/19/2024 11:16 AM EDT POC, GLUCOSE Routine 03/19/2024 7:28 AM EDT BASIC METABOLIC PANEL Routine 03/19/2024 7:04 AM EDT POC, GLUCOSE Routine 03/18/2024 7:47 PM EDT POC, GLUCOSE Routine 03/18/2024 4:36 PM EDT SODIUM, URINE, RANDOM Routine 03/18/2024 3:31 PM EDT POC, GLUCOSE Routine 03/18/2024 2:09 PM EDT POC, GLUCOSE Routine 03/18/2024 12:15 PM EDT POC, GLUCOSE Routine 03/18/2024 12:14 PM EDT ECHO LMTD W CONTRAST W LMTD SPEC DOPP Routine 03/18/2024 11:21 AM EDT Acute on chronic congestive heart failure, unspecified heart failure type TROPONIN - SINGLE STAT 03/18/2024 10: 53 AM EDT TROPONIN - SINGLE STAT 03/18/2024 7:5 5 AM EDT POC, GLUCOSE Routine 03/18/2024 7:54 AM EDT POC, GLUCOSE Routine 03/18/2024 1:[address] HEAD WO CONTRAST (GENERIC) Routine 03/18/2024 1:13 AM EDT RESPIRATORY PANEL PCR Routine 03/18/2024 12:08 AM EDT XR CHEST ONE VIEW Routine 03/18/2024 12: 01 AM EDT EKG 12-LEAD STAT 03/17/2024 11:39 PM EDT Acute on chronic congestive heart failure, unspecified heart failure type TROPONIN - SINGLE STAT Add-On 03/17/2024 11: 34 PM EDT CBC (WITH DIFF) Routine 03/17/2024 11:34 PM EDT PRO-BRAIN NATRIURETIC PEPTIDE Routine 03/17/2024 11:34 PM EDT MAGNESIUM Routine 03/17/2024 11:34 PM EDT HEPATIC FUNCTION PANEL Routine 03/17/2024 11:34 PM EDT BASIC METABOLIC PANEL Routine 03/17/2024 11:34 PM EDT documented in this encounter Results * (ABNORMAL) POC, GLUCOSE (03/21/2024 2:20 PM EDT) Glucometer, POC 217(H) 65 - 199 mg/dL 03/21/2024 2:21 PM EDT [facility] Comment:Supplemental ranges: <140 mg/dL before meals <180 mg/dL all other times of the day. Blood CAPILLARY BLOOD / Unknown 03/21/2024 2:20 PM EDT 03/21/2024 2:21 PM EDT Avtar Palafox MD POINT OF CARE TEST O RDMADHAV Performing Organization Address [facility] de Phone Number [facility] [place] [address] * (ABNORMAL) POC, GLUCOSE (03/21/2024 11:28 AM EDT) Glucometer, POC 256(H) 65 - 199 mg/dL 03/21/2024 11:29 AM EDT [facility] Comment:Supplemental ranges: <140 mg/dL before meals <180 mg/dL all other times of the day. Blood CAPILLARY BLOOD / Unknown 03/21/2024 11:28 AM EDT 03/21/2024 11:29 AM EDT Avtar Palafox MD POINT OF CARE TEST O JAYDEN Performing Organization Address [facility] Co de Phone Number [facility] [place] [address] * POC, GLUCOSE (03/21/2024 7:30 AM EDT) Glucometer, POC 144 65 - 199 mg/dL 03/21/2024 7:31 AM EDT [facility] Comment:Supplemental ranges: <140 mg/dL before meals <180 mg/dL all other times of the day. Blood CAPILLARY BLOOD / Unknown 03/21/2024 7:30 AM EDT 03/21/2024 7:31 AM EDT Avtar Palafox MD POINT OF CARE TEST O RDERABLES Performing Organization Address [facility] Co de Phone Number [facility] [place] [address] * POC, GLUCOSE (03/21/2024 3:17 AM EDT) Glucometer, POC 132 65 - 199 mg/dL 03/21/2024 3:17 AM EDT [facility] Comment:Supplemental ranges: <140 mg/dL before meals <180 mg/dL all other times of the day. Blood CAPILLARY BLOOD / Unknown 03/21/2024 3:17 AM EDT 03/21/2024 3:17 AM EDT Avtar Palafox MD POINT OF CARE TEST O RDERABLES Performing Organization Address [facility] Co de Phone Number [facility] [place] [address] * POC, GLUCOSE (03/20/2024 11:58 PM EDT) Glucometer, POC 125 65 - 199 mg/dL 03/20/2024 11:59 PM EDT [facility] Comment:Supplemental ranges: <140 mg/dL before meals <180 mg/dL all other times of the day. Blood CAPILLARY BLOOD / Unknown 03/20/2024 11:58 PM EDT 03/20/2024 11:59 PM EDT Avtar Palafox MD POINT OF CARE TEST O RDERABLES Performing Organization Address [facility]/ZIP Co de Phone Number [facility] [place] [address] * POC, GLUCOSE (03/20/2024 7:40 PM EDT) Glucometer, POC 182 65 - 199 mg/dL 03/20/2024 7:43 PM EDT [facility] Comment:Supplemental ranges: <140 mg/dL before meals <180 mg/dL all other times of the day. Blood CAPILLARY BLOOD / Unknown 03/20/2024 7:40 PM EDT 03/20/2024 7:43 PM EDT Avtar Palafox MD POINT OF CARE TEST O LUCILAERAJHONATAN Performing Organization Address City/[facility] Co de Phone Number [facility] [place] [address] * POC, GLUCOSE (03/20/2024 4:28 PM EDT) Glucometer, POC 114 65 - 199 mg/dL 03/20/2024 4:28 PM EDT [facility] Comment:Supplemental ranges: <140 mg/dL before meals <180 mg/dL all other times of the day. Blood CAPILLARY BLOOD / Unknown 03/20/2024 4:28 PM EDT 03/20/2024 4:28 PM EDT Avtar Palafox MD POINT OF CARE TEST O JAYDEN Performing Organization Address [facility] Co de Phone Number [facility] [place] [address] * (ABNORMAL) POC, GLUCOSE (03/20/2024 12:01 PM EDT) Glucometer, POC 213(H) 65 - 199 mg/dL 03/20/2024 12:01 PM EDT [facility] Comment:Supplemental ranges: <140 mg/dL before meals <180 mg/dL all other times of the day. Blood CAPILLARY BLOOD / Unknown 03/20/2024 12:01 PM EDT 03/20/2024 12:02 PM EDT Avtar Palafox MD POINT OF CARE TEST O JAYDEN [facility] [place] [address] * POC, GLUCOSE (03/20/2024 7:25 AM EDT) Glucometer, POC 138 65 - 199 mg/dL 03/20/2024 7:25 AM EDT [facility] Comment:Supplemental ranges: <140 mg/dL before meals <180 mg/dL all other times of the day. Blood CAPILLARY BLOOD / Unknown 03/20/2024 7:25 AM EDT 03/20/2024 7:25 AM EDT Carlos Oakley MD POINT OF CARE T EST ORDERABLES Performing Organization Address City/[facility]/ZIP Co de Phone Number [facility] [place] [address] * POC, GLUCOSE (03/20/2024 3:50 AM EDT) Glucometer, POC 145 65 - 199 mg/dL 03/20/2024 3:50 AM EDT [facility] Comment:Supplemental ranges: <140 mg/dL before meals <180 mg/dL all other times of the day. Blood CAPILLARY BLOOD / Unknown 03/20/2024 3:50 AM EDT 03/20/2024 3:50 AM EDT Carlos Oakely MD POINT OF CARE T EST ORDERABLES Performing Organization Address City/[facility]/ZIP Co de Phone Number [facility] [place] [address] * POC, GLUCOSE (03/20/2024 12:08 AM EDT) Glucometer, POC 147 65 - 199 mg/dL 03/20/2024 12:08 AM EDT [facility] Comment:Supplemental ranges: <140 mg/dL before meals <180 mg/dL all other times of the day. Blood CAPILLARY BLOOD / Unknown 03/20/2024 12:08 AM EDT 03/20/2024 12:08 AM EDT Carlos Oakley MD POINT OF CARE T EST ORDERABLES [facility] [place] [address] * POC, GLUCOSE (03/19/2024 7:04 PM EDT) Glucometer, POC 122 65 - 199 mg/dL 03/19/2024 7:04 PM EDT [facility] Comment:Supplemental ranges: <140 mg/dL before meals <180 mg/dL all other times of the day. Blood CAPILLARY BLOOD / Unknown 03/19/2024 7:04 PM EDT 03/19/2024 7:04 PM EDT Carlos Oakley MD POINT OF CARE T EST ORDERABLES [facility] [place] [address] * POC, GLUCOSE (03/19/2024 6:15 PM EDT) Glucometer, POC 111 65 - 199 mg/dL 03/19/2024 6:15 PM EDT [facility] Comment:Supplemental ranges: <140 mg/dL before meals <180 mg/dL all other times of the day. Blood CAPILLARY BLOOD / Unknown 03/19/2024 6:15 PM EDT 03/19/2024 6:15 PM EDT Carlos Oakley MD POINT OF CARE T EST ORDERABLES [facility] [place] [address] * (ABNORMAL) POC, GLUCOSE (03/19/2024 4:09 PM EDT) Glucometer, POC 273(H) 65 - 199 mg/dL 03/19/2024 4:09 PM EDT [facility] Comment:Supplemental ranges: <140 mg/dL before meals <180 mg/dL all other times of the day. Blood CAPILLARY BLOOD / Unknown 03/19/2024 4:09 PM EDT 03/19/2024 4:09 PM EDT Carlos Oakley MD POINT OF CARE T EST ORDERABLES Performing Organization Address City/[facility]/ZIP Co de Phone Number [facility] [place] [address] * (ABNORMAL) POC, GLUCOSE (03/19/2024 11:16 AM EDT) Glucometer, POC 271(H) 65 - 199 mg/dL 03/19/2024 11:16 AM EDT [facility] Comment:Supplemental ranges: <140 mg/dL before meals <180 mg/dL all other times of the day. Blood CAPILLARY BLOOD / Unknown 03/19/2024 11:16 AM EDT 03/19/2024 11:16 AM EDT Carlos Oakley MD POINT OF CARE T EST ORDERABLES Performing Organization Address [facility] Co de Phone Number [facility] [place] [address] * POC, GLUCOSE (03/19/2024 7:28 AM EDT) Glucometer, POC 149 65 - 199 mg/dL 03/19/2024 7:28 AM EDT [facility] Comment:Supplemental ranges: <140 mg/dL before meals <180 mg/dL all other times of the day. Blood CAPILLARY BLOOD / Unknown 03/19/2024 7:28 AM EDT 03/19/2024 7:29 AM EDT Carlos Oakley MD POINT OF CARE T EST ORDERABLES [facility] [place] [address] * (ABNORMAL) Basic Metabolic Panel (03/19/2024 7:04 AM EDT) Glucose 142 65 - 199 mg/dL 03/19/2024 7:49 AM EDT [facility] Comment:Glucose Concentratio n >=200 mg/dL plus symptoms is consistent with Diabetes Mellitus. Blood Urea Nitrogen 15 10 - 20 mg/dL 03/19/2024 7:49 AM [facility] Creatinine 1.11 0.80 - 1.50 mg/dL 03/19/2024 7:49 AM [facility] Sodium 134(L) 135 - 145 mMol/L 03/19/2024 7:49 AM [facility] Potassium 4.3 3.5 - 5.0 mMol/L 03/19/2024 7:49 AM [facility] Chloride 96(L) 98 - 107 mMol/L 03/19/2024 7:49 AM [facility] Carbon Dioxide 26 22 - 31 mMol/L 03/19/2024 7:49 AM [facility] Anion Gap 12 5 - 15 mMol/L 03/19/2024 7:49 AM [facility] Calcium 9.2 8.5 - 10.5 mg/dL 03/19/2024 7:49 AM [facility] Est Glomerular Filtration Rate - Male 70 mL/min/1. 73 m?? 03/19/2024 7:49 AM [facility] Comment: This patient's estimated GFR was calculated using the 2020 CKD-EPI equation. The estimated GFR can vary from the measured GFR by up to 30% in the absence of rapidly changing kidney function. Assessment of the estimated GFR is not appropriate when creatinine concentrations are rapidly changing. For clinical situations in which a more precise estimate of GFR is necessary, consider alternative methods of GFR estimation such as a 24-hour urine creatinine clearance. Assignment of CKD stage 1 - 5 for patients with an eGFR near the transition point between stages may be based on clinical assessment of muscle mass and symptoms in addition to eGFR. Link: eGFR Calculator [employer] Blood VENOUS BLOOD SPECIMEN / Unknown IP Care Team Draw / Unknown 03/19/2024 7:04 AM EDT 03/19/2024 7:10 AM EDT Carlos Oakley MD CHEMISTRY ORDER DILLON Performing Organization Address City/[facility]/ZIP Co de Phone Number [facility] [place] [address] * POC, GLUCOSE (03/18/2024 7:47 PM EDT) Glucometer, POC 110 65 - 199 mg/dL 03/18/2024 7:47 PM EDT [facility] Comment:Supplemental ranges: <140 mg/dL before meals <180 mg/dL all other times of the day. Blood CAPILLARY BLOOD / Unknown 03/18/2024 7:47 PM EDT 03/18/2024 7:47 PM EDT Carlos Oakley MD POINT OF CARE T EST ORDERABLES Performing Organization Address City/[facility]/ZIP Co de Phone Number [facility] [place] [address] * (ABNORMAL) POC, GLUCOSE (03/18/2024 4:36 PM EDT) Glucometer, POC 246(H) 65 - 199 mg/dL 03/18/2024 4:36 PM EDT [facility] Comment:Supplemental ranges: <140 mg/dL before meals <180 mg/dL all other times of the day. Blood CAPILLARY BLOOD / Unknown 03/18/2024 4:36 PM EDT 03/18/2024 4:37 PM EDT Carlos Oakley MD POINT OF CARE T EST ORDERABLES [facility] [place] [address] * Sodium, urine, random (03/18/2024 3:31 PM EDT) Sodium, Urine 95 mMol/L 03/18/2024 4:43 PM EDT [facility] Urine URINE SPECIMEN / Unknown Non Blood Collection / Unknown 03/18/2024 3:31 PM EDT 03/18/2024 3:37 PM EDT Carlos Oakley MD URINE ORDERABLE S Performing Organization Address [facility]/ZIP Co de Phone Number [facility] [place] [address] * (ABNORMAL) POC, GLUCOSE (03/18/2024 2:09 PM EDT) Glucometer, POC 266(H) 65 - 199 mg/dL 03/18/2024 2:10 PM EDT [facility] Comment:Supplemental ranges: <140 mg/dL before meals <180 mg/dL all other times of the day. Blood CAPILLARY BLOOD / Unknown 03/18/2024 2:09 PM EDT 03/18/2024 2:10 PM EDT Carlos Oakley MD POINT OF CARE T EST ORDERABLES Performing Organization Address [facility] Co de Phone Number [facility] [place] [address] * (ABNORMAL) POC, GLUCOSE (03/18/2024 12:15 PM EDT) Glucometer, POC 291(H) 65 - 199 mg/dL 03/18/2024 12:16 PM EDT [facility] Comment:Supplemental ranges: <140 mg/dL before meals <180 mg/dL all other times of the day. Blood CAPILLARY BLOOD / Unknown 03/18/2024 12:15 PM EDT 03/18/2024 12:16 PM EDT Carlos Oakley MD POINT OF CARE T EST ORDERABLES [facility] [place] [address] * (ABNORMAL) POC, GLUCOSE (03/18/2024 12:14 PM EDT) Glucometer, POC 254(H) 65 - 199 mg/dL 03/18/2024 12:16 PM EDT [facility] Comment:Supplemental ranges: <140 mg/dL before meals <180 mg/dL all other times of the day. Blood CAPILLARY BLOOD / Unknown 03/18/2024 12:14 PM EDT 03/18/2024 12:16 PM EDT Carlos Oakley MD POINT OF CARE T EST ORDERABLES [facility] [place] [address] * ECHO LMTD W CONTRAST W LMTD SPEC DOPP (03/18/2024 11:21 AM EDT) EF 42 HEARTLAB SYSTEM Anatomical Region Laterality Modality Cardiac Other 03/18/2024 10:2 2 AM EDT Narrative 03/18/2024 1:13 PM EDT [address] [place] [address] ? Echocardiogram Report Name: JOHNSON TOBAR ?Study Date: 03/18/2024 10:22 AMBP: 119/74 mmHg ? Patient Location: [place] [id number] A : 1950 ? Height: 165 cm ? Account: [id number] Age: 73 yrs ? Weight: 74 kg Gender: Male ?BSA: 1.8 m2 Ordering Physician: BYRON CARLSON Referring Physician: LILIA MICHELLE Performed By: Chris Burnham RDCS Reason For Study: CHF Interpreting Fellow: Jorge A Ghotra. Exam Location: [facility]. Interpretation Summary Technically limited study due to difficult imaging windows. Left ventricle is of normal size. Wall thickness is mildly increased. Left ventricular systolic function is mildly reduced. The left ventricular ejection fraction is 42% by Castro's biplane. There is a large sized anterior, posterior, and lateral wall motion abnormality with hypokinesis to akinesis of the segments. Right ventricle is not well visualized. It is probably mildly dilated and systolic function is at most mildly reduced. Peak RVSP is elevated at 57 mmHg plus RA pressure. Atria are not well visualized. 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 There is severe mitral stenosis with a mean gradient of 7 mmHg at a HR of 70 BPM, valve arera by planimetry 1.3 cm2. There is mild mitral regurgitation. There is a well seated prosthetic valve in the aortic position without regurgitation. The mean gradient across the prosthetic valve is 5 mmHg. There is moderate to severe tricuspid regurgitation. Compared to prior study 02/24/24 left ventricular segmental wall motions abnormalities are new. Procedure Limited - 86494. Doppler - 24995. Color Doppler - 64084. Image enhancement Optison was used for left ventricular opacification. Suboptimal quality. Left Ventricle Left ventricle is of normal size. Wall thickness is mildly increased. Left ventricular systolic function is mildly reduced. The left ventricular ejection fraction is 42% by Castro's biplane. There are segmental wall motion abnormalities. Right Ventricle The right ventricle is not well visualized. Right ventricle is probably mildly dilated. Systolic function is normal to mildly reduced. Left Atrium The left atrium is not well visualized. The left atrium is normal. Right Atrium The right atrium is not well visualized. The right atrium is probably normal in size. Aortic Valve There is no aortic regurgitation. 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 The date or year of insertion is 06/13/20. The size of the prosthesis is not available at this time. The peak gradient across the prosthesis is 11.6 mmHg . The mean gradient across the prosthesis is 5.4 mmHg . Mitral Valve There is heavy mitral annular calcification. Mitral leaflet excursion is severely restricted. There is severe mitral stenosis. The estimated mean gradient across the mitral valve is 7 mmHg. Heart rate: 70 beats per minute. The mitral valve area calculated by planimetry is 1.3 cm2. There is mild mitral regurgitation. Tricuspid Valve The tricuspid valve is not well visualized. There is no tricuspid stenosis. There is moderate to severe tricuspid regurgitation. Hepatic vein not well visualized. Pulmonic Valve The pulmonic valve is not well visualized. There is no valvular pulmonic stenosis. There is trace pulmonic valve regurgitation. Great Arteries The diameter at the level of the sinuses of Valsalva is 2.7 cm. Venous Inferior vena cava is not well visualized. Pericardium/Pleural There is no pericardial effusion. Hemodynamics The peak right ventricular systolic pressure is 56.5 mmHg . Plus RA presssure. Left ventricular diastolic function is abnormal. Left ventricular filling pressure is increased. Ejection Fraction ?2D Measurements ? Volumes EF(MOD-bp): 42.0 % ?IVSd: 1.1 cm ? LAV(MOD- bp) Indexed: ?LVIDd: 4.3 cm ?LVIDs: 3.3 cm ?33.1 ml/m2 ?LVPWd: 1.1 cm ?RA A4Cs_phl: 16.6 cm2 ?RWT: 0.53 {ratio} ?EDV(MOD-bp) Indexed: ?LV mass(C)d: 171.0 grams ? 55.0 ml/m2 ?LV mass(C)dI: 94.1 grams/m2 ?ESV(MOD- bp) Indexed: ?Ao root diam: 2.7 cm ? 31.9 ml/m2 ?Ao root diam index: 1.5 Doppler LV V1 VTI: 20.4 cm Ao V2 VTI: 30.5 cm Ao Max: 170.4 cm/sec Ao valve max: 11.6 mmHg Ao valve mean: 5.4 mmHg MVA(traced): 1.3 cm2 MV mean P.1 mmHg Dimensionless index Aov: 0.67 TR max eb: 375.9 cm/sec RVSP(TR): 56.5 mmHg I ?WMSI = 1.75 ? % Normal = 56 ?Segments ??Size X - Cannot ?? 1 - Normal ?? 2 - ? 3 - Akinetic 4 - ?1-2 ? small Interpret ? Hypokinetic ?Dyskinetic ?? 3-5 ? moderate 5 - ? 6-14 ?large Aneurysmal ?15-16 ?? diffuse Procedure Note John Andrade MD - 03/18/[address] [place] [address] Echocardiogram Report Name: JOHNSON TOBAR Study Date: 0:22 AMBP: 119/74 mmHg Patient Location: [id number] : 1950 Height: 165 cm Account: [id number] Age: 73 yrs Weight: 74 kg Gender: Male BSA: 1.8 m2 Ordering Physician: BYRON CARLSON Referring Physician: LILIA MICHELLE Performed By: Chris Burnham RDCS Reason For Study: CHF Interpreting Fellow: Jorge A Ghotra. Exam Location: [facility]. Interpretation Summary Technically limited study due to difficult imaging windows. Left ventricle is of normal size. Wall thickness is mildly increased.Left ventricular systolic function is mildly reduced. The left ventricularejection fraction is 42% by Castro's biplane. There is a large sized anterior,posterior, and lateral wall motion abnormality with hypokinesis to akinesis of thesegments. Right ventricle is not well visualized. It is probably mildly dilated andsystolic function is at most mildly reduced. Peak RVSP is elevated at 57 mmHg plusRA pressure. Atria are not well visualized. 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 There is severe mitralstenosis with a mean gradient of 7 mmHg at a HR of 70 BPM, valve arera by planimetry 1.3cm2. There is mild mitral regurgitation. There is a well seated prosthetic valve in the aortic position without regurgitation. The mean gradient across the prosthetic valve is 5 mmHg. There is moderate to severe tricuspid regurgitation. Compared to prior study 02/24/24 left ventricular segmental wall motions abnormalities are new. Procedure Limited - 21742. Doppler - 44497. Color Doppler - 04894. Image enhancementOptison was used for left ventricular opacification. Suboptimal quality. Left Ventricle Left ventricle is of normal size. Wall thickness is mildly increased.Left ventricular systolic function is mildly reduced. The left ventricularejection fraction is 42% by Castro's biplane. There are segmental wall motion abnormalities. Right Ventricle The right ventricle is not well visualized. Right ventricle is probablymildly dilated. Systolic function is normal to mildly reduced. Left Atrium The left atrium is not well visualized. The left atrium is normal. Right Atrium The right atrium is not well visualized. The right atrium is probablynormal in size. Aortic Valve There is no aortic regurgitation. There is a bioprosthetic valve in theaortic position. The date or year of insertion is 06/13/20. The size of theprosthesis is not available at this time. The peak gradient across the prosthesis is11.6 mmHg . The mean gradient across the prosthesis is 5.4 mmHg . Mitral Valve There is heavy mitral annular calcification. Mitral leaflet excursion isseverely restricted. There is severe mitral stenosis. The estimated mean gradientacross the mitral valve is 7 mmHg. Heart rate: 70 beats per minute. The mitralvalve area calculated by planimetry is 1.3 cm2. There is mild mitral regurgitation. Tricuspid Valve The tricuspid valve is not well visualized. There is no tricuspidstenosis. There is moderate to severe tricuspid regurgitation. Hepatic vein not wellvisualized. Pulmonic Valve The pulmonic valve is not well visualized. There is no valvular pulmonicstenosis. There is trace pulmonic valve regurgitation. Great Arteries The diameter at the level of the sinuses of Valsalva is 2.7 cm. Venous Inferior vena cava is not well visualized. Pericardium/Pleural There is no pericardial effusion. Hemodynamics The peak right ventricular systolic pressure is 56.5 mmHg . Plus RApresssure. Left ventricular diastolic function is abnormal. Left ventricular fillingpressure is increased. Ejection Fraction 2D Measurements Volumes EF(MOD-bp): 42.0 % IVSd: 1.1 cm LAV(MOD-bp)Indexed: LVIDd: 4.3 cm LVIDs: 3.3 cm 33.1 ml/m2 LVPWd: 1.1 cm RA A4Cs_phl: 16.6cm2 RWT: 0.53 {ratio} EDV(MOD-bp)Indexed: LV mass(C)d: 171.0 grams 55.0 ml/m2 LV mass(C)dI: 94.1 grams/m2 ESV(MOD-bp)Indexed: Ao root diam: 2.7 cm 31.9 ml/m2 Ao root diam index: 1.5 Doppler LV V1 VTI: 20.4 cm Ao V2 VTI: 30.5 cm Ao Max: 170.4 cm/sec Ao valve max: 11.6 mmHg Ao valve mean: 5.4 mmHg MVA(traced): 1.3 cm2 MV mean P.1 mmHg Dimensionless index Aov: 0.67 TR max eb: 375.9 cm/sec RVSP(TR): 56.5 mmHg I WMSI = 1.75 % Normal = 56 SegmentsSize X - Cannot 1 - Normal 2 - 3 - Akinetic 4 - 1-2small Interpret Hypokinetic Dyskinetic 3-5moderate 5 - 6-14large Aneurysmal 15-16diffuse Byron Carlson MD ECHO ORDERABLES * (ABNORMAL) Troponin - Single (03/18/2024 10:53 AM EDT) Troponin-T, High Sensitivity 250(H) <=22 ng/L 03/18/2024 12:37 PM EDT [facility] Comment: This patient's troponin T concentration was determined using the Violeta 5th Generation troponin T assay. According to the fourth universal definition of myocardial infarction, the term acute myocardial infarction should be used when there is acute myocardial injury with clinical evidence of acute myocardial ischemia and with detection of a rise and/or fall of cardiac troponin values with at least one value above the 99th percentile and at least one of the following: - Symptoms of myocardial ischemia; - New ischemic ECG changes; - Development of pathological Q waves; - Imaging evidence of new loss of viable myocardium or new regional wall motion ?? abnormality in a pattern consistent with an ischemic etiology; - Identification of a coronary thrombus by angiography or autopsy (not for type 2 or 3 ?? MIs) Serial measurement of troponin and the change in troponin concentration over time (delta) is crucial for the diagnosis of acute myocardial infarction. Guidance on the interpretation of the new 5th Generation Troponin T values and the delta troponin value can be found in the Counts Include [facility] Laboratory Test Catalog Troponin - https://[email or web address].testcatalog.org/catalogs/565/files/17148 Reference: Fourth [place] Definition of Myocardial Infarction. Journal of the [place] [employer] 2018;72:9008-2076 Blood VENOUS BLOOD SPECIMEN / Unknown IP Care Team Draw / Unknown 03/18/2024 10:53 AM EDT 03/18/2024 11:52 AM EDT Carlos Oakley MD CHEMISTRY ORDER DILLON [facility] [place] [address] * (ABNORMAL) Troponin - Single (03/18/2024 7:55 AM EDT) Troponin-T, High Sensitivity 217(H) <=22 ng/L 03/18/2024 8:58 AM EDT [facility] Comment: This patient's troponin T concentration was determined using the Violeta 5th Generation troponin T assay. According to the fourth universal definition of myocardial infarction, the term acute myocardial infarction should be used when there is acute myocardial injury with clinical evidence of acute myocardial ischemia and with detection of a rise and/or fall of cardiac troponin values with at least one value above the 99th percentile and at least one of the following: - Symptoms of myocardial ischemia; - New ischemic ECG changes; - Development of pathological Q waves; - Imaging evidence of new loss of viable myocardium or new regional wall motion ?? abnormality in a pattern consistent with an ischemic etiology; - Identification of a coronary thrombus by angiography or autopsy (not for type 2 or 3 ?? MIs) Serial measurement of troponin and the change in troponin concentration over time (delta) is crucial for the diagnosis of acute myocardial infarction. Guidance on the interpretation of the new 5th Generation Troponin T values and the delta troponin value can be found in the Counts Include [facility] Laboratory Test Catalog Troponin - https://[email or web address].testcatalog.org/catalogs/565/files/14377 Reference: Fourth [place] Definition of Myocardial Infarction. Journal of the [place] College [employer]iology 2018;72:8386-1350 Blood VENOUS BLOOD SPECIMEN / Unknown IP Care Team Draw / Unknown 03/18/2024 7:55 AM EDT 03/18/2024 8:25 AM EDT Carlos Oakley MD CHEMISTRY ORDER DILLON Performing Organization Address [facility] Co de Phone Number [facility] [place] [address] * POC, GLUCOSE (03/18/2024 7:54 AM EDT) Glucometer, POC 158 65 - 199 mg/dL 03/18/2024 7:54 AM EDT [facility] Comment:Supplemental ranges: <140 mg/dL before meals <180 mg/dL all other times of the day. Blood CAPILLARY BLOOD / Unknown 03/18/2024 7:54 AM EDT 03/18/2024 7:54 AM EDT Carlos Oakley MD POINT OF CARE T EST ORDERABLES Performing Organization Address [facility]/ZIP Co de Phone Number [facility] [place] [address] * POC, GLUCOSE (03/18/2024 1:26 AM EDT) Glucometer, POC 155 65 - 199 mg/dL 03/18/2024 1:26 AM EDT [facility] Comment:Supplemental ranges: <140 mg/dL before meals <180 mg/dL all other times of the day. Blood CAPILLARY BLOOD / Unknown 03/18/2024 1:26 AM EDT 03/18/2024 1:26 AM EDT Carlos Oakley MD POINT OF CARE T EST ORDERABLES [facility] [place] [address] * CT Head wo Contrast (Generic) (03/18/2024 1:13 AM EDT) Apptimate Signature WORKSTATION ID [id number] [facility] Anatomical Region Laterality Modality Head Computed Tomogra phy Impressions 03/18/2024 8:27 AM EDT 1. 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 2. 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 3. ??No hemorrhagic transformation. Thank you for letting us participate in the care of this patient. ??If you are a health care provider and have any questions regarding this report, please contact the number below. ??For patients who have questions please contact the health home care provider that requested your imaging first. ? Narrative 03/18/2024 8:27 AM EDT EXAMINATION: CT HEAD WO CONTRAST (GENERIC) CLINICAL HISTORY: h/o hemorrhagic CVA, follow up for resolution TECHNIQUE: CT head performed without intravenous contrast administration. COMPARISON: Brain MRI 03/10/2024 and 02/25/2024. Head CT 02/24/2024. FINDINGS: Ventricles are normal in size. Basal cisterns are patent. No mass effect or midline shift. Curvilinear high attenuation along the cortex of the posterior medial right temporal lobe/hippocampal gyrus concordant with some cortical laminar necrosis/petechial hemoglobin degradation products at site of prior infarct. This is concordant with intrinsically T1 hyperintense signal and susceptibility related signal loss on recent MRI. There is subtle low-attenuation within the posterior right thalamus and posterior medial right temporal lobe concordant with location of infarct seen on prior MRI. No additional acute intracranial hemorrhage. No extra-axial fluid collections. Cheung matter white matter differentiation is otherwise well preserved. The orbits are unremarkable status post bilateral lens surgery. The visualized paranasal sinuses are clear. The mastoid air cells are clear. No suspicious osseous lesions. No calvarial fracture. No scalp hematoma. Procedure Note Theo Garcia MD - 03/18/2024 EXAMINATION: CT HEAD WO CONTRAST (GENERIC) CLINICAL HISTORY: h/o hemorrhagic CVA, follow up for resolution TECHNIQUE: CT head performed without intravenous contrast administration. COMPARISON: Brain MRI 03/10/2024 and 02/25/2024. Head CT 02/24/2024. FINDINGS: Ventricles are normal in size. Basal cisterns are patent. No mass effector midline shift. Curvilinear high attenuation along the cortex of the posterior medialright temporal lobe/hippocampal gyrus concordant with some cortical laminar necrosis/petechial hemoglobin degradation products at site of priorinfarct. This is concordant with intrinsically T1 hyperintense signal andsusceptibility related signal loss on recent MRI. There is subtle low-attenuation within the posterior right thalamus and posterior medial right temporal lobe concordant with location of infarctseen on prior MRI. No additional acute intracranial hemorrhage. No extra-axial fluidcollections. Cheung matter white matter differentiation is otherwise well preserved. Theorbits are unremarkable status post bilateral lens surgery. The visualizedparanasal sinuses are clear. The mastoid air cells are clear. No suspiciousosseous lesions. No calvarial fracture. No scalp hematoma. IMPRESSION 1. Sequela of prior infarct involving the posterior lateral rightthalamus and posterior medial right temporal lobe. 2. Subtle curvilinear high attenuation within the cortex of the infarct consistent with cortical laminar necrosis/petechial hemoglobindegradation products as seen on prior MRI 03/10/2024. 3. No hemorrhagic transformation. Thank you for letting us participate in the care of this patient. If youare a health care provider and have any questions regarding this report,please contact the number below. For patients who have questions please contactthe health home care provider that requested your imaging first. Saniya Patrick MD IM CT ORDERABLES * Respiratory Panel PCR (03/18/2024 12:08 AM EDT) Respiratory Panel PCR Negative Negative 03/18/2024 1:29 AM EDT [facility] Adenovirus Not Detected Not Detected 03/18/2024 1:29 AM EDT [facility] Coronavirus HKU1 Not Detected Not Detected 03/18/2024 1:29 AM EDT [facility] Coronavirus NL63 Not Detected Not Detected 03/18/2024 1:29 AM EDT [facility] Coronavirus 229E Not Detected Not Detected 03/18/2024 1:29 AM EDT [facility] Coronavirus OC43 Not Detected Not Detected 03/18/2024 1:29 AM EDT [facility] SARS-CoV-2 Not Detected Not Detected 03/18/2024 1:29 AM EDT [facility] Human Metapneumovirus Not Detected Not Detected 03/18/2024 1:29 AM EDT [facility] Human Rhinovirus/Enterov irus Not Detected Not Detected 03/18/2024 1:29 AM EDT [facility] Influenza A Not Detected Not Detected 03/18/2024 1:29 AM EDT [facility] Influenza B Not Detected Not Detected 03/18/2024 1:29 AM EDT [facility] Parainfluenza 1 Not Detected Not Detected 03/18/2024 1:29 AM EDT [facility] Parainfluenza 2 Not Detected Not Detected 03/18/2024 1:29 AM EDT [facility] Parainfluenza 3 Not Detected Not Detected 03/18/2024 1:29 AM EDT [facility] Parainfluenza 4 Not Detected Not Detected 03/18/2024 1:29 AM EDT [facility] Respiratory Syncytial Virus Not Detected Not Detected 03/18/2024 1:29 AM EDT [facility] Chlamydophila pneumoniae Not Detected Not Detected 03/18/2024 1:29 AM EDT [facility] Mycoplasma pneumoniae Not Detected Not Detected 03/18/2024 1:29 AM EDT [facility] Swab SPECIMEN FROM NASOPHARYNGEAL STRUCTURE / Unknown Non Blood Collection / Unknown 03/18/2024 12:08 AM EDT 03/18/2024 12:21 AM EDT [facility] - 03/18/2024 1:29 AM EDT Respiratory Panels are performed on the [place] using multiplexed PCR nucleic acid detection. Negative results do not preclude respiratory infection and should not be used as the sole basis for diagnosis, treatment, or other management decisions. Saniya Patrick MD MICROBIOLOGY - [facility] AL ORDERABLES [facility] [place] [address] * XR Chest One View (03/18/2024 12:01 AM EDT) WORKSTATION ID [id number] DH RAD Anatomical Region Laterality Modality Chest N/A Digital Radiogra phy Impressions 03/18/2024 8:59 AM EDT New small pleural effusions and findings favored represent pulmonary edema. Underlying pneumonia would have to be excluded clinically. I have personally reviewed the image(s) and the resident's interpretation and agree with the findings, Theo Lunsford MD at 03/18/2024 8:59 AM Thank you for letting us participate in the care of this patient. ??If you are a health care provider and have any questions regarding this report, please contact the number below. ??For patients who have questions please contact the health home care provider that requested your imaging first. ? Narrative 03/18/2024 8:59 AM EDT EXAMINATION: XR CHEST ONE VIEW CLINICAL HISTORY: pulmonary edema TECHNIQUE: 1 view of the chest COMPARISON: Chest radiograph 02/28/2024 FINDINGS: The pulmonary vessels are indistinct and there are new central opacities in both lungs and linear reticular opacities at the lung bases. There are new small pleural effusions. No pneumothorax. The cardiac silhouette is stable status post median sternotomy and aortic valve replacement. Procedure Note Theo Lunsford MD - 03/18/2024 EXAMINATION: XR CHEST ONE VIEW CLINICAL HISTORY: pulmonary edema TECHNIQUE: 1 view of the chest COMPARISON: Chest radiograph 02/28/2024 FINDINGS: The pulmonary vessels are indistinct and there are new central opacitiesin both lungs and linear reticular opacities at the lung bases. There are new small pleural effusions. No pneumothorax. The cardiac silhouette is stable status post median sternotomy and aorticvalve replacement. IMPRESSION New small pleural effusions and findings favored represent pulmonaryedema. Underlying pneumonia would have to be excluded clinically. I have personally reviewed the image(s) and the resident's interpretationand agree with the findings, Theo Lunsford MD at 03/18/2024 8:59 AM Thank you for letting us participate in the care of this patient. If youare a health care provider and have any questions regarding this report,please contact the number below. For patients who have questions please contactthe health home care provider that requested your imaging first. Saniya Patrick MD IMG DX ORDERABLES * EKG 12 Lead (03/17/2024 11:39 PM EDT) Ventricular rate 77 BPM MUSE SYSTEM Atrial Rate 77 BPM MUSE SYSTEM P-R Interval 116 ms MUSE SYSTEM QRS Duration 92 ms MUSE SYSTEM Q-T Interval 384 ms MUSE SYSTEM QTC Calculated (Bezet) 434 ms MUSE SYSTEM Calculated P La [place] 71 degrees MUSE SYSTEM Calculated R [place]14 degrees MUSE SYSTEM Calculated T [place] 36 degrees MUSE SYSTEM INTERPRETATION Normal sinus rhythm Possible Left atrial enlargement Nonspecific ST and T wave abnormality Abnormal ECG When compared with ECG of 24-FEB-2024 02:00, Criteria for Inferior infarct are no longer Present I personally reviewed the tracing and edited the fellows interpretation Confirmed by fellow Sloan Coello ([id number]) on 03/18/2024 9:06:47 PM Confirmed by MD Hollingsworth Jose ([id number]) on 03/19/2024 2:56:46 PM MUSE SYSTEM 03/17/2024 11:3 9 PM EDT 03/19/2024 2:56 PM EDT Saniya Patrick MD ECG ORDERABLES MUSE SYSTEM * (ABNORMAL) Troponin - Single (03/17/2024 11:34 PM EDT) Troponin-T, High Sensitivity 137(H) <=22 ng/L 03/18/2024 12:19 AM EDT [facility] Comment: This patient's troponin T concentration was determined using the Violeta 5th Generation troponin T assay. According to the fourth universal definition of myocardial infarction, the term acute myocardial infarction should be used when there is acute myocardial injury with clinical evidence of acute myocardial ischemia and with detection of a rise and/or fall of cardiac troponin values with at least one value above the 99th percentile and at least one of the following: - Symptoms of myocardial ischemia; - New ischemic ECG changes; - Development of pathological Q waves; - Imaging evidence of new loss of viable myocardium or new regional wall motion ?? abnormality in a pattern consistent with an ischemic etiology; - Identification of a coronary thrombus by angiography or autopsy (not for type 2 or 3 ?? MIs) Serial measurement of troponin and the change in troponin concentration over time (delta) is crucial for the diagnosis of acute myocardial infarction. Guidance on the interpretation of the new 5th Generation Troponin T values and the delta troponin value can be found in the Counts Include [facility] Laboratory Test Catalog Troponin - [email or web address].org/[email or web address]/[email or web address] Reference: Fourth [place] Definition of Myocardial Infarction. Journal of the [place] [employer] 2018;72:4670-3447 Blood VENOUS BLOOD SPECIMEN / Unknown Venipuncture / Unknown 03/17/2024 11:34 PM EDT 03/17/2024 11:38 PM EDT Saniya Patrick MD CHEMISTRY ORDERABLES [facility] [place] [address] * Hepatic Function Panel (03/17/2024 11:34 PM EDT) Albumin 3.6 3.2 - 5.2 g/dL 03/18/2024 12:19 AM EDT [facility] Aspartate Aminotransferase 26 <=39 unit/L 03/18/2024 12:19 AM EDT [facility] Alanine Aminotransferase 16 0 - 55 unit/L 03/18/2024 12:19 AM EDT [facility] Alkaline Phosphatase 105 40 - 130 unit/L 03/18/2024 12:19 AM T [facility] Bilirubin, Total 0.7 <=1.3 mg/dL 03/18/2024 12:19 AM EDT [facility] Bilirubin, Direct 0.3 0.0 - 0.3 mg/dL 03/18/2024 12:19 AM EDT [facility] Protein, Total 6.7 6.1 - 8.0 g/dL 03/18/2024 12:19 AM EDT [facility] Blood VENOUS BLOOD SPECIMEN / Unknown Venipuncture / Unknown 03/17/2024 11:34 PM EDT 03/17/2024 11:38 PM EDT Saniya Patrikc MD CHEMISTRY ORDERABLES Performing Organization Address City/[facility]/ZIP Co de Phone Number [facility] [place] [address] * (ABNORMAL) pro-Brain Natriuretic Peptide (03/17/2024 11:34 PM EDT) NT-proBNP 7,905(H) <=124 pg/mL 03/18/2024 12:19 AM EDT [facility] Blood VENOUS BLOOD SPECIMEN / Unknown Venipuncture / Unknown 03/17/2024 11:34 PM EDT 03/17/2024 11:38 PM EDT Saniya Patrick MD CHEMISTRY ORDERABLES Performing Organization Address City/[facility]/ZIP Co de Phone Number [facility] [place] [address] * (ABNORMAL) Magnesium (03/17/2024 11:34 PM EDT) Magnesium 0.65(L) 0.69 - 1.07 mMol/L 03/18/2024 12:19 AM EDT [facility] Blood VENOUS BLOOD SPECIMEN / Unknown Venipuncture / Unknown 03/17/2024 11:34 PM EDT 03/17/2024 11:38 PM EDT Saniya Patrick MD CHEMISTRY ORDERABLES Performing Organization Address City/[facility]/ZIP Co de Phone Number [facility] [place] [address] * Basic Metabolic Panel (03/17/2024 11:34 PM EDT) Glucose 193 65 - 199 mg/dL 03/18/2024 12:19 AM [facility] Comment:Glucose Concentratio n >=200 mg/dL plus symptoms is consistent with Diabetes Mellitus. Blood Urea Nitrogen 14 10 - 20 mg/dL 03/18/2024 12:19 AM [facility] Creatinine 1.11 0.80 - 1.50 mg/dL 03/18/2024 12:19 AM [facility] Sodium 137 135 - 145 mMol/L 03/18/2024 12:19 AM [facility] Potassium 3.8 3.5 - 5.0 mMol/L 03/18/2024 12:19 AM [facility] Chloride 100 98 - 107 mMol/L 03/18/2024 12:19 AM [facility] Carbon Dioxide 22 22 - 31 mMol/L 03/18/2024 12:19 AM [facility] Anion Gap 15 5 - 15 mMol/L 03/18/2024 12:19 AM [facility] Calcium 9.1 8.5 - 10.5 mg/dL 03/18/2024 12:19 AM [facility] Est Glomerular Filtration Rate - Male 70 mL/min/1. 73 m?? 03/18/2024 12:19 AM [facility] Comment: This patient's estimated GFR was calculated using the 2020 CKD-EPI equation. The estimated GFR can vary from the measured GFR by up to 30% in the absence of rapidly changing kidney function. Assessment of the estimated GFR is not appropriate when creatinine concentrations are rapidly changing. For clinical situations in which a more precise estimate of GFR is necessary, consider alternative methods of GFR estimation such as a 24-hour urine creatinine clearance. Assignment of CKD stage 1 - 5 for patients with an eGFR near the transition point between stages may be based on clinical assessment of muscle mass and symptoms in addition to eGFR. Link: eGFR Calculator [employer] Blood VENOUS BLOOD SPECIMEN / Unknown Venipuncture / Unknown 03/17/2024 11:34 PM EDT 03/17/2024 11:38 PM EDT Saniya Patrick MD CHEMISTRY ORDERABLES [facility] [place] [address] * (ABNORMAL) CBC (with Diff) (03/17/2024 11:34 PM EDT) White Blood Cell 7.96 4.00 - 9.50 x10(3)/mc L 03/17/2024 11:47 PM EDT [facility] Red Blood Cell 3.71(L) 4.58 - 5.54 x10(6)/mc L 03/17/2024 11:47 PM EDT [facility] Hemoglobin 10.1(L) 13.7 - 16.5 g/dL 03/17/2024 11:47 PM EDT [facility] Hematocrit 31.2(L) 40.5 - 48.5 % 03/17/2024 11:47 PM EDT [facility] Mean Cell Volume 84.1 82.9 - 93.1 fL 03/17/2024 11:47 PM EDT [facility] Mean Cell Hemoglobin 27.2(L) 27.5 - 32.1 pg 03/17/2024 11:47 PM EDT [facility] Mean Cell Hemoglobin Concentration 32.4 32.0 - 35.7 g/dL 03/17/2024 11:47 PM EDT [facility] Platelet 221 145 - 357 x10(3)/mc L 03/17/2024 11:47 PM EDT [facility] Mean Platelet Volume 10.5 7.6 - 12.9 fL 03/17/2024 11:47 PM EDT [facility] RDW Standard Deviation 51.9(H) 36.0 - 45.0 fL 03/17/2024 11:47 PM EDT [facility] RDW coefficient of variation 17.3(H) 11.4 - 13.8 % 03/17/2024 [facility] NRBC% auto 0.0 % 03/17/2024 11:47 PM [facility] NRBC Absolute 0.00 0.00 - 0.00 x10(3)/mc L 03/17/2024 11:47 PM [facility] Neutrophil % 74.1 % 03/17/2024 11:47 PM [facility] Neutrophil Absolute (ANC) - Automated 5.90 1.70 - 6.10 x10(3)/mc L 03/17/2024 11:47 PM [facility] Lymph % 10.3 % 03/17/2024 11:47 PM [facility] Lymph Absolute 0.82(L) 0.90 - 3.20 x10(3)/mc L 03/17/2024 11:47 PM [facility] Monocyte % 11.4 % 03/17/2024 11:47 PM [facility] Monocyte Absolute 0.91(H) 0.30 - 0.90 x10(3)/mc L 03/17/2024 11:47 PM [facility] Eos % 3.3 % 03/17/2024 11:47 PM [facility] Eos Absolute 0.26 0.00 - 0.40 x10(3)/mc L 03/17/2024 11:47 PM [facility] Basophil % 0.5 % 03/17/2024 11:47 PM [facility] Baso Absolute 0.04 0.00 - 0.10 x10(3)/mc L 03/17/2024 11:47 PM [facility] Immature Gran % 0.4 % 11:47 PM [facility] Immature Gran Absolute 0.03 0.00 - 0.04 x10(3)/mc L 03/17/2024 11:47 PM [facility] Blood VENOUS BLOOD SPECIMEN / Unknown Venipuncture / Unknown 03/17/2024 11:34 PM EDT 03/17/2024 11:38 PM EDT Saniya Patrick MD HEMATOLOGY ORDERABLE S [facility] [place] [address] documented in this encounter Visit Diagnoses Diagnosis CHF exacerbation- Primary Congestive heart failure, unspecified Acute on chronic congestive heart failure, unspecified heart failure type ASCVD (arteriosclerotic cardiovascular disease) Unspecified cardiovascular disease Aortic stenosis Aortic valve disorders S/P AVR (aortic valve replacement) Heart valve replaced by other means Type 2 diabetes mellitus Type II or unspecified type diabetes mellitus without mention of complication, not stated as uncontrolled NSTEMI (non-ST elevated myocardial infarction) Acute myocardial infarction, subendocardial infarction, episode of care unspecified documented in this encounter Admitting Diagnoses Diagnosis CHF exacerbation Congestive heart failure, unspecified documented in this encounter Administered Medications Inactive Administered Medications - up to 3 most recent administrations Medication Order MAR Action Action Date Dose Rate Site amLODIPine (Norvasc) tablet 5 mg 5 mg, Oral, 2 TIMES DAILY, First dose on Sat03/18/24 at 0900, Until Discontinued, Hold for systolic less than 90 mmHg, Routine Given 03/20/2024 3:20 PM EDT 5 mg Given 03/20/2024 8:30 AM EDT 5 mg Given 03/19/2024 4:04 PM EDT 5 mg aspirin EC tablet 81 mg 81 mg, Oral, DAILY, First dose on Sat03/18/24 at 0900, Until Discontinued, Routine Given 03/21/2024 8:52 AM EDT 81 mg Given 03/20/2024 8:30 AM EDT 81 mg Given 03/19/2024 9:22 AM EDT 81 mg ezetimibe (Zetia) tablet 10 mg 10 mg, Oral, DAILY, First dose on Sat03/18/24 at 0900, Until Discontinued, Routine Given 03/21/2024 8:52 AM EDT 10 mg Given 03/20/2024 8:29 AM EDT 10 mg Given 03/19/2024 9:20 AM EDT 10 mg furosemide (Lasix) (10 mg/mL) injection 40 mg 40 mg, Intravenous, ONCE, 1 dose, On Sat03/18/24 at 0015 Given 03/18/2024 1:29 AM EDT 40 mg furosemide (Lasix) (10 mg/mL) injection 80 mg 80 mg, Intravenous, ONCE, 1 dose, On Sat03/18/24 at 0945 Given 03/18/2024 12:16 PM EDT 80 mg furosemide (Lasix) (10 mg/mL) injection 80 mg 80 mg, Intravenous, ONCE, 1 dose, On Sat03/18/24 at 1800 Given 03/18/2024 5:18 PM EDT 80 mg furosemide (Lasix) (10 mg/mL) injection 80 mg 80 mg, Intravenous, ONCE, 1 dose, On Sat03/19/24 at 0715 Given 03/19/2024 9:17 AM EDT 80 mg furosemide (Lasix) tablet 60 mg 60 mg, Oral, DAILY, First dose (after last modification) on Sat03/20/24 at 0900, Until Discontinued, Routine Given 03/20/2024 8:30 AM EDT 60 mg insulin glargine-ygfn (Semglee) (100 unit/mL) subcutaneous injection vial 14 Units 14 Units, Subcutaneous, DAILY, First dose on Sat03/20/24 at 0900, Until Discontinued, Routine Given 03/21/2024 8:53 AM EDT 14 Units Given 03/20/2024 8:27 AM EDT 14 Units insulin glargine-ygfn (Semglee) (100 unit/mL) subcutaneous injection vial 8 Units 8 Units, Subcutaneous, DAILY, First dose on Sat03/18/24 at 0900, Until Discontinued, Routine Given 03/19/2024 9:24 AM EDT 8 Units Given 03/18/2024 8:51 AM EDT 8 Units Ab dominal Tissue insulin lispro (HumaLOG;Admelog) (100 unit/mL) subcutaneous injection vial 0-8 Units 0-8 Units, Subcutaneous, 3 TIMES DAILY WITH MEALS, First dose on Sat03/19/24 at 1400, Until Discontinued, MEAL ASSOCIATED Give 1 unit for every 10 grams carbohydrate. Hold if not eating or if BG less than 70 mg/dL. , Routine Given 03/21/2024 12:56 PM EDT 2 Units Given 03/21/2024 8:54 AM EDT 5 Units Given 03/20/2024 6:16 PM EDT 4 Units insulin lispro (HumaLOG;Admelog) (100 unit/mL) subcutaneous injection vial 1-4 Units 1-4 Units, Subcutaneous, 3 TIMES DAILY BEFORE MEALS, First dose on Sat03/18/24 at 0730, Until Discontinued, CORRECTION BOLUS [1-4 Units] Sensitive Sliding Scale (BG in mg/dL): Correction factor 40 (1 unit of insulin is expected to drop the glucose 40 mg/dL) ?? BG 160 - 200 Give 1 unit BG 201 - 240 Give 2 units BG 241 - 280 Give 3 units and recheck BG in 2 hours. BG greater than 280, give 4 units and recheck BG in 2 hours. - If recheck BG is LESS than 280, give no insulin and resume schedule - If recheck BG is GREATER than or EQUAL to 280, give 4 units and repeat BG in 2 hours & call for new insulin orders. DO NOT hold if NPO, unless specifically told to do so. ?? Per Inpatient Subcutaneous Insulin Policy, recheck a BG of greater than 240 mg/dL in 2 hours., Routine Given 03/19/2024 11:40 AM EDT 3 Units Given 03/18/2024 5:18 PM EDT 3 Units Ab dominal Tissue Given 03/18/2024 2:10 PM EDT 3 Units Le ft Arm insulin lispro (HumaLOG;Admelog) (100 unit/mL) subcutaneous injection vial 1-6 Units 1-6 Units, Subcutaneous, EVERY 4 HOURS SCHEDULED, First dose on Sat03/19/24 at 1600, Until Discontinued, CORRECTION BOLUS [1-6 Units] Moderate Sliding Scale (BG in mg/dL): Correction factor 20 (1 unit of insulin is expected to drop the glucose 20 mg/dL) BG 140 - 160 Give 1 unit BG 161 - 180 Give 2 units BG 181 - 200 Give 3 units BG 201 - 220 Give 4 units BG 221 - 240 Give 5 units BG greater than 240, give 6 units and recheck BG in 2 hours. - If recheck BG is LESS than 240, give no insulin and resume schedule. - If recheck BG is GREATER than or EQUAL to 240, give 6 units and repeat BG in 2 hours (no more than 3 times) & call for new insulin orders. DO NOT hold if NPO, unless specifically directed to do so by written order. ?? Per Inpatient Subcutaneous Insulin Policy, recheck a BG of greater than 240 mg/dL in 2 hours., Routine Given 03/21/2024 11:54 AM EDT 6 Units Given 03/21/2024 8:54 AM EDT 1 Units Given 03/20/2024 7:43 PM EDT 3 Units magnesium sulfate 2 g in sterile water 50 mL infusion 2 g, Intravenous, ONCE, 1 dose, On Sat03/18/24 at 0145, Administer over 120 Minutes New Bag 03/18/2024 1:49 AM EDT 2 g 25 mL/hr magnesium sulfate 2 g in sterile water 50 mL infusion 2 g, Intravenous, ONCE, 1 dose, On Sat03/18/24 at 0800, Administer over 120 Minutes New Bag 03/18/2024 8:50 AM EDT 2 g 25 mL/hr metoprolol tartrate (Lopressor) tablet 100 mg 100 mg, Oral, 2 TIMES DAILY, First dose on Sat03/17/24 at 2330, Until Discontinued, Hold for systolic less than 90 mmHg or HR <60, Routine Given 03/20/2024 8:28 PM EDT 100 mg Given 03/20/2024 8:31 AM EDT 100 mg Given 03/19/2024 8:47 PM EDT 100 mg pantoprazole EC (Protonix) tablet 40 mg 40 mg, Oral, DAILY, First dose on Sat03/18/24 at 0900, Until Discontinued, DO NOT CRUSH OR OPEN, Routine Given 03/21/2024 8:52 AM EDT 40 mg Given 03/20/2024 8:29 AM EDT 40 mg Given 03/19/2024 9:22 AM EDT 40 mg perflutren protein-A microsphers (Optison) (0.22 mg/mL) injection 0.5 mL 0.5 mL, Intravenous, ONCE PRN, 1 dose, Starting on Sat03/18/24 at 1125, Until Sat03/18/24 at 1125, for enhancement of sub-optimal echo images, Echo Lab (Intra-Procedure), Routine Given 03/18/2024 11:25 AM EDT 0.5 mLs potassium chloride ER (Klor-Con M) crystal tablet 20 mEq 20 mEq, Oral, ONCE, 1 dose, On Sat03/18/24 at 0145, potassium chloride ER particle/crystal tablets (Klor-Con M) may be broken in half and each half swallowed separately. Tablets can be dissolved in ~4 ounces of water; allow ~2 minutes to dissolve, stir well and drink immediately. Do not crush, chew, or suck on tablet., Routine Given 03/18/2024 1:50 AM EDT 20 mEq potassium chloride ER (Klor-Con M) crystal tablet 40 mEq 40 mEq, Oral, ONCE, 1 dose, On Sat03/18/24 at 1315, potassium chloride ER particle/crystal tablets (Klor-Con M) may be broken in half and each half swallowed separately. Tablets can be dissolved in ~4 ounces of water; allow ~2 minutes to dissolve, stir well and drink immediately. Do not crush, chew, or suck on tablet., Routine Given 03/18/2024 2:04 PM EDT 40 mEq rosuvastatin (Crestor) tablet 40 mg 40 mg, Oral, EVERY EVENING, First dose on Sat03/18/24 at 1700, Until Discontinued, Routine Given 03/20/2024 6:17 PM EDT 40 mg Given 03/19/2024 4:04 PM EDT 40 mg Given 03/18/2024 5:17 PM EDT 40 mg sacubitriL-valsartan (Entresto) 24-26 mg per tablet 1 tablet 1 tablet, Oral, 2 TIMES DAILY, First dose on Sat03/17/24 at 2330, Until Discontinued, Hold for systolic less than 90 mmHg, Routine, Is this a continuation of home medication? Yes Given 03/20/2024 8:28 PM EDT 1 tablet Given 03/20/2024 8:31 AM EDT 1 tablet Given 03/19/2024 8:47 PM EDT 1 tablet sodium chloride 0.9 % (flush) (BD PosiFlush Normal Saline 0.9) flush 5 mL 5 mL, Intravenous, 2 TIMES DAILY, First dose on Sat03/17/24 at 2330, Until Discontinued, Routine Given 03/21/2024 8:52 AM EDT 5 mLs Given 03/20/2024 8:28 PM EDT 5 mLs Given 03/20/2024 9:00 AM EDT 5 mLs tamsulosin (Flomax) capsule 0.4 mg 0.4 mg, Oral, DAILY, First dose on Sat03/18/24 at 0900, Until Discontinued, DO NOT CRUSH OR CHEW, Routine Given 03/21/2024 8:52 AM EDT 0.4 mg Given 03/20/2024 8:29 AM EDT 0.4 mg Given 03/19/2024 9:23 AM EDT 0.4 mg torsemide (Demadex) tablet 40 mg 40 mg, Oral, DAILY, First dose on Sat03/21/24 at 0900, Until Discontinued, Routine documented in this encounter Active and Recently Administered Medications Times are shown in EDT. Scheduled Medication Order 03/19/2024 03/20/2024 03/21/2024 amLODIPine (Norvasc) tablet 5 mg 5 mg, Oral, 2 TIMES DAILY, First dose on Sat03/18/24 at 0900, Until Discontinued, Hold for systolic less than 90 mmHg, Routine 09 (Given - Provider: Alen Collins RN)1604 (Given - Provider: Zainab Cox RN - Comment: Okay to give per MD) 0830 (Given - Provider: Alen Collins RN)1520 (Given - Provider: Alen Collins RN) 0900 (Not Given - Provider: Alexa Lopez RN - Reason: Order parameters not met - Comment: BP 86/48)1500 (Due) aspirin EC tablet 81 mg 81 mg, Oral, DAILY, First dose on Sat03/18/24 at 0900, Until Discontinued, Routine 0922 (Given - Provider: Alen Collins RN) 0830 (Given - Provider: Alen Collins RN) 0852 (Given - Provider: Alexa Lopez, MOISES) ezetimibe (Zetia) tablet 10 mg 10 mg, Oral, DAILY, First dose on Sat03/18/24 at 0900, Until Discontinued, Routine 0920 (Given - Provider: Alen Collins RN) 0829 (Given - Provider: Alen Collins RN) 0852 (Given - Provider: Alexa Lopez, MOISES) furosemide (Lasix) (10 mg/mL) injection 80 mg (COMPLETED) 80 mg, Intravenous, ONCE, 1 dose, On Mary Beth 03/19/24 at 0715 0917 (Given - Provider: Alen Collins RN) furosemide (Lasix) tablet 60 mg (CANCELED) 60 mg, Oral, DAILY, First dose (after last modification) on Sat03/20/24 at 0900, Until Discontinued, Routine 0830 (Given - Provider: Alen Collins, MOISES) insulin glargine-ygfn (Semglee) (100 unit/mL) subcutaneous injection vial 14 Units (CANCELED) 14 Units, Subcutaneous, DAILY, First dose on Sat03/20/24 at 0900, Until Discontinued, Routine 08 (Given - Provider: Alen Collins RN) 0853 (Given - Provider: Alexa Lopez, MOISES) insulin glargine-ygfn (Semglee) (100 unit/mL) subcutaneous injection vial 8 Units (CANCELED) 8 Units, Subcutaneous, DAILY, First dose on Sat03/18/24 at 0900, Until Discontinued, Routine 923 (Given - Provider: Alen Collins RN) insulin lispro (HumaLOG;Admelog) (100 unit/mL) subcutaneous injection vial 0-8 Units (CANCELED) 0-8 Units, Subcutaneous, 3 TIMES DAILY WITH MEALS, First dose on Sat03/19/24 at 1400, Until Discontinued, MEAL ASSOCIATED Give 1 unit for every 10 grams carbohydrate. Hold if not eating or if BG less than 70 mg/dL. , Routine 1400 (Not Given - Provider: Alen Collins RN - Reason: See comment - Comment: new order)181 (Given - Provider: Zainab Cox RN - Comment: late dinner) 08 (Given - Provider: Alen Collins RN)1242 (Given - Provider: Alen Collins, MOISES)1816 (Given - Provider: Alen Collins, MOISES) 0854 (Given - Provider: Alexa Lopez, MOISES)1256 (Given - Provider: Alexa Lopez RN) insulin lispro (HumaLOG;Admelog) (100 unit/mL) subcutaneous injection vial 1-4 Units (CANCELED)(Linked Group 1) 1-4 Units, Subcutaneous, 3 TIMES DAILY BEFORE MEALS, First dose on Sat03/18/24 at 0730, Until Discontinued, CORRECTION BOLUS [1-4 Units] Sensitive Sliding Scale (BG in mg/dL): Correction factor 40 (1 unit of insulin is expected to drop the glucose 40 mg/dL) ?? BG 160 - 200 Give 1 unit BG 201 - 240 Give 2 units BG 241 - 280 Give 3 units and recheck BG in 2 hours. BG greater than 280, give 4 units and recheck BG in 2 hours. - If recheck BG is LESS than 280, give no insulin and resume schedule - If recheck BG is GREATER than or EQUAL to 280, give 4 units and repeat BG in 2 hours & call for new insulin orders. DO NOT hold if NPO, unless specifically told to do so. ?? Per Inpatient Subcutaneous Insulin Policy, recheck a BG of greater than 240 mg/dL in 2 hours., Routine 0730 (Not Given - Provider: Alen Collins RN - Reason: Order parameters not met)1140 (Given - Provider: Alen Collins RN) insulin lispro (HumaLOG;Admelog) (100 unit/mL) subcutaneous injection vial 1-6 Units (CANCELED)(Linked Group 2) 1-6 Units, Subcutaneous, EVERY 4 HOURS SCHEDULED, First dose on Mary Beth 03/19/24 at 1600, Until Discontinued, CORRECTION BOLUS [1-6 Units] Moderate Sliding Scale (BG in mg/dL): Correction factor 20 (1 unit of insulin is expected to drop the glucose 20 mg/dL) BG 140 - 160 Give 1 unit BG 161 - 180 Give 2 units BG 181 - 200 Give 3 units BG 201 - 220 Give 4 units BG 221 - 240 Give 5 units BG greater than 240, give 6 units and recheck BG in 2 hours. - If recheck BG is LESS than 240, give no insulin and resume schedule. - If recheck BG is GREATER than or EQUAL to 240, give 6 units and repeat BG in 2 hours (no more than 3 times) & call for new insulin orders. DO NOT hold if NPO, unless specifically directed to do so by written order. ?? Per Inpatient Subcutaneous Insulin Policy, recheck a BG of greater than 240 mg/dL in 2 hours., Routine 1609 (Given - Provider: Zainab Cox RN)1999 (Not Given - Provider: Tamara Westfall RN - Reason: Order parameters not met) 0033 (Given - Provider: Tamara Westfall RN)0354 (Given - Provider: Tamara Westfall RN)0800 (Not Given - Provider: Alen Collins RN - Reason: Order parameters not met)1242 (Given - Provider: Alen Collins RN)1600 (Not Given - Provider: Alen Collins RN - Reason: Order parameters not met)1943 (Given - Provider: Tamara Westfall RN) 0000 (Not Given - Provider: Tamara Westfall RN - Reason: Order parameters not met)0400 (Not Given - Provider: Tamara Westfall RN - Reason: Order parameters not met)0854 (Given - Provider: Alexa Lopez RN)1154 (Given - Provider: Alexa Lopez RN) metoprolol tartrate (Lopressor) tablet 100 mg 100 mg, Oral, 2 TIMES DAILY, First dose on Sat03/17/24 at 2330, Until Discontinued, Hold for systolic less than 90 mmHg or HR <60, Routine 09 (Given - Provider: Alen Collins RN)2046 (Given - Provider: Tamara Westfall RN) 0831 (Given - Provider: Alen Collins RN)2028 (Given - Provider: Tamara Westfall RN) 0900 (Not Given - Provider: Alexa Lopez RN - Reason: Order parameters not met - Comment: BP 86/48) pantoprazole EC (Protonix) tablet 40 mg 40 mg, Oral, DAILY, First dose on Sat03/18/24 at 0900, Until Discontinued, DO NOT CRUSH OR OPEN, Routine 0922 (Given - Provider: Alen Collins RN) 0829 (Given - Provider: Alen Collins, MOISES) 0852 (Given - Provider: Alexa Lopez RN) rosuvastatin (Crestor) tablet 40 mg 40 mg, Oral, EVERY EVENING, First dose on Sat03/18/24 at 1700, Until Discontinued, Routine 1604 (Given - Provider: Zainab Cox RN) 1817 (Given - Provider: Alen Collins RN) sacubitriL-valsartan (Entresto) 24-26 mg per tablet 1 tablet 1 tablet, Oral, 2 TIMES DAILY, First dose on Sat03/17/24 at 2330, Until Discontinued, Hold for systolic less than 90 mmHg, Routine, Is this a continuation of home medication? Yes 920 (Given - Provider: Alen Collins RN)2046 (Given - Provider: Tamara Westfall RN) 830 (Given - Provider: Alen Collins RN)2027 (Given - Provider: Tamara Westfall, MOISES) 09 (Not Given - Provider: Alexa Lopez RN - Reason: Order parameters not met - Comment: BP 86/48) sodium chloride 0.9 % (flush) (BD PosiFlush Normal Saline 0.9) flush 5 mL 5 mL, Intravenous, 2 TIMES DAILY, First dose on Sat03/17/24 at 2330, Until Discontinued, Routine 899 (Given - Provider: Alen Collins RN)2046 (Given - Provider: Tamara Westfall RN) 09 (Given - Provider: Alen Collins RN)2027 (Given - Provider: Tamara Westfall RN) 0852 (Given - Provider: Alexa Lopez RN) tamsulosin (Flomax) capsule 0.4 mg 0.4 mg, Oral, DAILY, First dose on Sat03/18/24 at 0900, Until Discontinued, DO NOT CRUSH OR CHEW, Routine 922 (Given - Provider: Alen Collins RN) 08 (Given - Provider: Alen Collins RN) 0852 (Given - Provider: Alexa Lopez, MOISES) torsemide (Demadex) tablet 40 mg 40 mg, Oral, DAILY, First dose on Sat03/21/24 at 0900, Until Discontinued, Routine 09 (Not Given - Provider: Alexa Lopez RN - Reason: Order parameters not met - Comment: Verbal order to hold d/t BP 86/48) PRN Medication Order 03/19/2024 03/20/2024 03/21/2024 acetaminophen (Tylenol) tablet 650 mg 650 mg, Oral, EVERY 4 HOURS PRN, Starting on Sat03/17/24 at 2313, Until Sat03/21/24 at 1741, Pain, Headaches, Maximum dose of acetaminophen is 4,000 mg from all sources in 24 hours., Routine Linked Groups Order Group 1: POCT Fingerstick Glucose (CANCELED) Routine, 4 TIMES DAILY BEFORE MEALS & AT BEDTIME, First occurrence on Sat03/18/24 at 0700, Until Specified, Consider choosing FOUR TIMES A DAY BEFORE MEALS AND AT BEDTIME as frequency for: Patients who have good hypoglycemia awareness: -Patients who are eating meals during the day and sleeping at night -Patients who are otherwise stable And insulin lispro (HumaLOG;Admelog) (100 unit/mL) subcutaneous injection vial 1-4 Units (CANCELED)Jump to med 1-4 Units, Subcutaneous, 3 TIMES DAILY BEFORE MEALS, First dose on Sat03/18/24 at 0730, Until Discontinued, CORRECTION BOLUS [1-4 Units] Sensitive Sliding Scale (BG in mg/dL): Correction factor 40 (1 unit of insulin is expected to drop the glucose 40 mg/dL) ?? BG 160 - 200 Give 1 unit BG 201 - 240 Give 2 units BG 241 - 280 Give 3 units and recheck BG in 2 hours. BG greater than 280, give 4 units and recheck BG in 2 hours. - If recheck BG is LESS than 280, give no insulin and resume schedule - If recheck BG is GREATER than or EQUAL to 280, give 4 units and repeat BG in 2 hours & call for new insulin orders. DO NOT hold if NPO, unless specifically told to do so. ?? Per Inpatient Subcutaneous Insulin Policy, recheck a BG of greater than 240 mg/dL in 2 hours., Routine Group 2: POCT Fingerstick Glucose (CANCELED) Routine, EVERY 4 HOURS, First occurrence on Sat03/19/24 at 1340, Until Specified, Consider choosing EVERY 4 HOURS as frequency for: - Type 1 Diabetes - At least 24 hours after coming off an insulin drip - At least 24 hours after admission for DKA - Hypoglycemia unawareness - Patients who are otherwise unstable Select the same frequency for the correction bolus insulin order And insulin lispro (HumaLOG;Admelog) (100 unit/mL) subcutaneous injection vial 1-6 Units (CANCELED)Jump to med 1-6 Units, Subcutaneous, EVERY 4 HOURS SCHEDULED, First dose on Sat03/19/24 at 1600, Until Discontinued, CORRECTION BOLUS [1-6 Units] Moderate Sliding Scale (BG in mg/dL): Correction factor 20 (1 unit of insulin is expected to drop the glucose 20 mg/dL) BG 140 - 160 Give 1 unit BG 161 - 180 Give 2 units BG 181 - 200 Give 3 units BG 201 - 220 Give 4 units BG 221 - 240 Give 5 units BG greater than 240, give 6 units and recheck BG in 2 hours. - If recheck BG is LESS than 240, give no insulin and resume schedule. - If recheck BG is GREATER than or EQUAL to 240, give 6 units and repeat BG in 2 hours (no more than 3 times) & call for new insulin orders. DO NOT hold if NPO, unless specifically directed to do so by written order. ?? Per Inpatient Subcutaneous Insulin Policy, recheck a BG of greater than 240 mg/dL in 2 hours., Routine documented in this encounter Additional Health Concerns Infection Onset Date Last Indicated Resolved Time Rule Out Respiratory 03/17/2024 03/18/2024 024 1:29 AM EDT Rule Out COVID-19 03/17/2024 03/18/2024 03/18/2024 1:29 AM EDT documented as of this encounter Care Teams Braze Operator Relationship Specialty Start Date End Date Tamia Tsai PA [address] [place] [id number] PCP - General Family Medicine 02/18/24 documented as of this encounter
--- OUTSIDE RECORDS SUMMARY | 2024-03-26 15:50 | XMS_ITS | Encounter Summary ---
Author Organization [facility] Address [facility] [place] [address] Care Team Providers Care Autotransfusionist Name Role Phone Tamia Tsai Primary Care Provider [phone] Encounter Details Date Type Department Care Team (Late st Contact Info) Description 03/11/2024 9:40 AM EDT Telehealth [place] [address] Telehealth, Neurology None Social History Tobacco Use Types Packs/Day Years Used Date Smoking Tobacco: Never Smokeless Tobacco: Never Alcohol Use Standard Drinks/Week Comments Not Currently 0 (1 standard drink = 0.6 oz pur e alcohol) [facility] Utilities Answer Date Recorded In the past 12 months has e [employer], gas, oil, or water [employer] threatened to shut off services in your [...] any time in the past [address] [facility], were you homeless or living in a [place] facility (including now)? No 02/24/2024 IPV Inpatient Questions [...] 2:30 PM EST [place] [address] Susanna Cm, ANH [facility] [place] [address] documented as of this encounter Visit Diagnoses Not on filedocumented in this encounter Care Teams Autotransfusionist Relationship Specialty Start Date End Date Tamia Tsai PA [address] [place] [id number] PCP - General Family Medicine 02/18/24 documented as of this encounter
--- OUTSIDE RECORDS SUMMARY | 2024-03-26 15:50 | XMS_ITS | Encounter Summary ---
Author Organization [facility] Address [facility] [place] [address] Care Team Providers Care Communications Marketing Intern Name Role Phone Tamia Tsai Primary Care Provider [phone] Encounter Details Date Type Department Care Team (Late st Contact Info) Description 03/13/2024 5:40 PM EDT Telehealth [place] [address] Telehealth, Neurology None Social History Tobacco Use Types Packs/Day Years Used Date Smoking Tobacco: Never Smokeless Tobacco: Never Alcohol Use Standard Drinks/Week Comments Not Currently 0 (1 standard drink = 0.6 oz pur e alcohol) [facility] Utilities Answer Date Recorded In the past 12 months has e [employer], gas, oil, or water [employer] threatened to shut off services in your [...] any time in the past 12 m [facility], were you homeless or living in a [facility] (including now)? No 02/24/2024 IPV Inpatient Questions [...] 2:30 PM EST [place] [address] Susanna Cm, AN[facility] [place] [address] documented as of this encounter Visit Diagnoses Not on filedocumented in this encounter Care Teams Communications Marketing Intern Relationship Specialty Start Date End Date Tamia Tsai PA [address] [place] [id number] PCP - General Family Medicine 02/18/24 documented as of this encounter
--- OUTSIDE RECORDS SUMMARY | 2024-03-26 15:50 | XMS_ITS | Encounter Summary ---
Author Organization [facility] Address [facility] [place] [address] Care Team Providers Care Financial Center Manager Name Role Phone Taima Tsai Primary Care Provider [phone] Encounter Details Date Type Department Care Team (Late st Contact Info) Description 03/10/2024 Interpretation Only [place] [address] Vitor Camara MD [facility] [place] [address] Social History Tobacco Use Types Packs/Day Years Used Date Smoking Tobacco: Never Smokeless Tobacco: Never Alcohol Use Standard Drinks/Week Comments Not Currently 0 (1 standard drink = 0.6 oz pur e alcohol) [facility] Utilities Answer Date Recorded In the past 12 months has th e [employer], gas, oil, or water [employer] threatened to shut off services in your [...] any time in the past 12 m [facility], were you homeless or living in a detention (including now)? No 02/24/2024 IPV Inpatient Questions [...] 2:30 PM EST [place] [address] Susanna Cm CHIEF OF STAFF DOCTOR [facility] [place] [address] documented as of this encounter Procedures Procedure Name Priority Date/Time Associated Diagnosis Comments FILM LIBRARY STORAGE ONLY MR HEAD Routine 03/10/2024 2:40 PM EDT documented in this encounter Results * Film Library- Storage Only MR Head (03/10/2024 2:40 PM EDT) 03/11/2024 8:20 AM EDT Narrative RAD - 03/11/2024 8:20 AM EDT This exam is auto-finalizing. It's purpose is for storage only. Vitor Camara MD IMG FILM LIBRARY ORD ERABLES [facility] [place], [place] documented in this encounter Visit Diagnoses Not on filedocumented in this encounter Care Teams Financial Center Manager Relationship Specialty Start Date End Date Tamia Tsai PA [address] [place] [id number] PCP - General Family Medicine 02/18/24 documented as of this encounter
--- OUTSIDE RECORDS SUMMARY | 2024-03-26 15:50 | XMS_ITS | Encounter Summary ---
Author Organization [facility] Address [facility] Juan Miguel [place] [address] Care Team Providers Care Linux Server Administrator Name Role Phone Tamia Tsai Primary Care Provider [phone] Encounter Details Date Type Department Care Team (Late st Contact Info) Description 03/17/2024 Telephone Cardiology at [address] [address] Prabha Ngo APRN [facility] [place] [address] Social History Tobacco Use Types Packs/Day Years Used Date Smoking Tobacco: Never Smokeless Tobacco: Never Alcohol Use Standard Drinks/Week Comments Not Currently 0 (1 standard drink = 0.6 oz pur e alcohol) [facility] Utilities Answer Date Recorded In the past 12 months has e [employer], gas, oil, or water [employer] threatened to shut off services in your [...] time in the past 12 m [facility], were you homeless or living in a long-term (including now)? No 03/18/2024 IPV Inpatient Questions [...] encounter Miscellaneous Notes * Telephone Encounter - Prabha Ngo APRN - 03/17/2024 1:59 PM EDT Images from the original note were not included. 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 Cath showed patent MCKEON however high-grade left circumflex lesion. Case complicated by ischemic CVA. Discharged from neuro on DAPT with plans for outpatient cardiology f/u and possible stress test. Readmitted to OSH last week for hemorrhagic stroke.Plavix held with plan for serial head imaging and possible resumption of plavix if hemorrhage resolves per OSH provider. Readmitted last night with worsening hypoxia, SOB, cough, and chest pain. Somepedal edema but per spouse improved overall. Was taking Lasix 40 mg at home. In ED given IV lasix 40 mg x 1 with little improvement. Chest pain free at this time. 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 The LV is normal in size with low normal systolic function. The estimated LVEF is 55% by visual estimate with no regional wall motion abnormalities. The RV is mildly dilated with probably normal systolic function. Severe biatrial enlargement. There is a bioprosthesis in the aortic position (SAVR, 23 mm Inspiris bioprosthesis, inserted 06/13/2020). The peak/mean gradient is estimated at 10/4 mmHg. No significant regurgitation. There is heavy mitral annular calcification with encroachment into the leaflets. There is mixed mitral stenosis/regurgitation. There is moderate calcific mitral stenosis with a mean gradient estimated at 9 mmHg (HR 74 bpm. NSR) and moderate mitral regurgitation. There is moderate tricuspid regurgitation. The peak right ventricular systolic pressure is 45 mmHg. Other details as below. IMPRESSION: Normal aortic valve bioprosthesis. There is mixed moderate calcific MS/MR. As compared to the prior echo report from 07/21/2020, the mean gradient across the MV has increased from 3 mmHg to 9 mmHg. Consider further evaluation with a DEBORAH if clinically indicated. OSH Interventions: ASA Plan: 73 y/o M with PMH of ASCVD, severe s/p AVR, CVA ischemic>>hemorrhagic, who presets with hypoxia, worsening SOB, cough, chest pain. Troponin elevated 215, 358. EKG with slight anterolateral STDs although also seen on prior (current EKG with wandering baseline). He is chest pain free at thistime. OSH has started IV diuresis. Discussed case with one of our cards fellows given complexity ofcase. Will accept in transfer for further evaluation and management. Continue diuresis. Given recent hemorrhagic stroke, would hold on IV heparin at this moment as he is chest pain free and troponin might be demand in setting of CHF. Reconnect if chest pain worsens, troponin rises significantly, orEKG changes. - above recommendations were based on my discussion with Dr. Sheppard; I have not personally interviewed or examined this patient. Prabha Ngo APRN Cardiovascular Medicine Pager [phone] 03/17/2024 documented in this encounter Plan of Treatment Upcoming Encounters Date Type Department Care Team (Late st Contact Info) Description 08/27/2024 2:30 PM EST Office [place] [address] Susanna Cm APRN [facility] [place] [address] documented as of this encounter Visit Diagnoses Not on filedocumented in this encounter Care Teams Linux Server Administrator Relationship Specialty Start Date End Date Tamia Tsai PA [address] [place] [id number] PCP - General Family Medicine 02/18/24 documented as of this encounter
--- OUTSIDE RECORDS SUMMARY | 2024-03-26 15:50 | XMS_ITS | Encounter Summary ---
Author Organization [facility] Address [facility] [place] [address] Care Team Providers Care Product Development Carpenter Name Role Phone Tamia Tsai Primary Care Provider [phone] Encounter Details Date Type Department Care Team (Late st Contact Info) Description 03/10/2024 2:40 PM EDT Ancillary Procedure [place] [address] Vitor Camara MD [facility] [place] [address] Social History Tobacco Use Types Packs/Day Years Used Date Smoking Tobacco: Never Smokeless Tobacco: Never Alcohol Use Standard Drinks/Week Comments Not Currently 0 (1 standard drink = 0.6 oz pur e alcohol) [facility] Utilities Answer Date Recorded In the past 12 months has [employer], gas, oil, or water [employer] threatened to shut off services in your [...] in the past 12 m [facility], were you homeless or living in a intermediate (including now)? No 02/24/2024 IPV Inpatient Questions [...] 2:30 PM EST Office [place] [address] Susanna Cm APRN [facility] [place] [address] documented as of this encounter Procedures Procedure [...] IMG FILM LIBRARY ORD ERABLES [facility] RAD [place], [place] documented in this encounter Visit Diagnoses Not on filedocumented in this encounter Care Teams Product Development Carpenter Relationship Specialty Start Date End Date Tamia Tsai PA [address] [place] [id number] PCP - General Family Medicine 02/18/24 documented as of this encounter
--- OUTSIDE RECORDS SUMMARY | 2024-03-26 15:50 | XMS_ITS | Clinical Summary ---
Author Organization [facility] Address [facility] [place] [address] Care Team Providers Care Lead Programmer Analyst Name Role Phone Tamia Tsai Primary Care Provider [phone] Allergies Active Allergy Reactions Criticality Noted Date Comments Lisinopril Other (See Comments) High 05/20/2023 Medications Medication Sig Dispensed Refills Start Date End Date Status glipiZIDE XL (Glucotrol XL) 10 mg Tablet Extended Rel 24 hr TAKE 1 TABLET BY MOUTH ONCE DAILY 05/03/2020 Active metFORMIN (GLUCOPHAGE) 1,000 mg Tablet TAKE ONE TABLET BY MOUTH TWICE A DAY 04/10/2020 Active semaglutide (Ozempic) 0.25 mg or 0.5 mg (2 mg/3 mL) Pen Injector Inject 0.5 mg subcutaneously. Active ezetimibe (Zetia) 10 mg tablet Take 1 tablet by mouth daily. 03/03/2024 Active amLODIPine (Norvasc) 5 mg tablet Take 1 tablet by mouth 2 times daily. 90 tablet 3 03/21/2024 Active metoprolol tartrate (Lopressor) 100 mg tablet Take 1 tablet by mouth 2 times daily. 180 tablet 3 03/21/2024 Active pantoprazole EC (Protonix) [address] tablet Take 1 tablet by mouth daily. 90 tablet 3 03/22/2024 Active rosuvastatin (Crestor) 40 mg tablet Take 1 tablet by mouth every evening. 90 tablet 3 03/21/2024 Active sacubitriL-valsartan (Entresto) 24-26 mg tablet Take 1 tablet by mouth 2 times daily. 90 tablet 3 03/21/2024 Active acetaminophen (Tylenol) 325 mg tablet Take 2 tablets by mouth every 4 hours as needed. 30 tablet 1 03/21/2024 Active furosemide (Lasix) 20 mg tablet Take 3 tablets by mouth daily. 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 BANK WORKER occlusion and infarction after cath visiting from [facility] Antithrombotic stroke prevention DAPT (Cardiology input for duration) Statin therapy Lipid Panel Lab Results Component Value Date CHLPL 91 02/24/2024 HDL 32 02/24/2024 TRIG 122 02/24/2024 LDLCHOL 37 02/24/2024 Rosuvastatin and Zetia Blood Pressure goals/control Rx SBP> Ideally: Glycemic control Lab Results Component Value Date HA1C 8.3 (H) 02/24/2024 Smoking/tobacco Social History Tobacco Use Smoking Status Never Smokeless Tobacco Never VTE ppx Fluids Nutrition Daily Healthy Menu Choices/Cardiac diet ([facility]-Diet) 60/60/75 CHO counting level 2 Discharge barriers (eg., guardianship, advance directive, insurance) Meds reconciled? NIHSS (need approx 36 hour post t-PA and intervention) NIH Stroke Scale (from Navigator) NIH Stroke Scale Date 02/24/24 NIH Stroke Scale Time 1324 Level of Consciousness 1 LOC Questions 0 LOC Commands 0 Best Gaze 1 Vision 1 Facial Palsy 1 Motor Arm, Left 3 Motor Arm, Right 0 Motor Leg, Left 3 Motor Leg, Right 0 (unable to move from procedure) Limb Ataxia 0 Sensory 2 Best Language 1 Dysarthria 1 Extinction and Inattention: 2 NIH Total Score 16 R foot cellulitis NSTEMI (non-ST elevated myocardial infarction) 0 02/24/2024 Type 2 diabetes mellitus, wi thout long-term current use of insulin 06/15/2020 S/P CABG (coronary artery bypass graft) 06/13/20 20 S/P AVR (aortic valve replacement) 06/13/2020 CAD (coronary artery disease) 06/03/2020 Aortic valve stenosis 05/09/2020 Overview (05/09/2020): Added automatically from request for surgery [id number] Type 2 diabetes mellitus 07/15/2014 ASCVD (arteriosclerotic cardiovascular disease) 03/01/2011 Overview (04/13/2012): Status post stenting to his LAD over 11 years ago. LV function normal. No angina. HTN (hypertension) 03/01/2011 DJD (degenerative joint disease) 03/01/2011 Elevated cholesterol 03/01/2011 Aortic stenosis 03/01/2011 Overview (05/09/2020): No change on echo. Valve area 1.4 cm squared. LV function normal. No other significant valve disease. PA pressure slightly up at 41. Echo 03/11/2020: EF 65%; TOBI 0.8; pV 5.0; mean Gr 57; PASP 35-45; Trivial AI/MR Resolved Problems Problem Noted Date Diagnosed Date Resolved Date SVT - Suspected Afib 06/15/2020 020 Encounters Date Type Department Care Team Description 03/23/2024 Telephone Neurology at [place] [phone] Twila Cm, APPRENTICE STYLIST Appointment 03/17/2024 10:14 PM EDT - 03/21/2024 3:41 PM EDT Hospital Encounter Heart and Vascular Unit Level 4 Wing B at [place] [phone] Carlos Toro MD Ahmad, Shawn M, MD Vinod, Poornima, MD Acute on chronic congestive heart failure, unspecified heart failure type Discharge Disposition: Home with VNA 03/17/2024 Telephone Cardiology at [place] [phone] Prabha Ngo, APPRENTICE STYLIST 03/17/2024 External Results Transfer [place] [phone] 03/13/2024 5:40 PM EDT Telehealth [place] [address] Telehealth, Neurology 03/11/2024 5:00 PM EDT Telehealth [place] [address] Telehealth, Neurology 03/11/2024 9:40 AM EDT Telehealth [place] [address] Telehealth, Neurology 03/10/2024 2:40 PM EDT Ancillary Procedure [place] [address] Vitor Camara MD 03/10/2024 Interpretation [place] [address] Vitor Camara MD 03/09/2024 6:50 AM EDT Telehealth [place] [address] Telehealth, Neurology 02/24/2024 11:00 AM EDT - 02/24/2024 12:00 PM EDT [place] [address] Zara Dc MD CARDIAC CATHETERIZATION 02/24/2024 Travel 02/23/2024 8:38 PM EDT - 03/02/2024 2:11 PM EDT Hospital Encounter Neurosciences and ENT Unit Level 5 [place] [address] Kal Puentes MD Battula, Anusha K, MD Marcolini, Evadne G, MD Rojas-Soto, Diana M, MD Lukovits, Timothy G, MD Kussaga, Bassam Street MD Coronary artery disease, unspecified vessel or lesion type, unspecified whether angina present, unspecified whether upper sioux or transplanted heart; Internal carotid artery stenosis, unspecified laterality; NSTEMI (non-ST elevated myocardial infarction) Discharge Disposition: Rehab Center in a Facility 02/23/2024 Telephone Cardiology at [facility] 1 [facility] [place] [address] Bryant Sher PA 02/23/2024 External Results Administration One [facility] [place] [address] 02/18/2024 Transcribe Orders [facility] Incoming Referrals [phone] Tamia Tsai PA Other spondylosis with myelopathy, lumbar region from Last 3 Months Social History Tobacco Use Types Packs/Day Years Used Date Smoking Tobacco: Never Smokeless Tobacco: Never Tobacco Cessation:Counseling Given: Yes Alcohol Use Standard Drinks/Week Comments Not Currently 0 (1 standard drink = 0.6 oz pur e alcohol) [facility] Utilities Answer Date Recorded In the past 12 months has th e electric, gas, oil, or water company [...] any time in the past 12 m [facility], were you homeless or living in a [facility] (including now)? No 03/18/2024 [facility] Inpatient Questions Answer Date Recorded Does Anyone [...] on file Sexual Orientation Not on file Last Filed Vital Signs Vital Sign Reading [...] Mass Index 27.01 03/17/2024 11:25 PM EDT Plan of Treatment Upcoming Encounters Date Type Department Care Team (Late st Contact Info) Description 08/27/2024 2:30 PM EST [place] [address] Twila Cm, APPRENTICE STYLIST [facility] [place] [address] Health Maintenance Due Date Last Done Comments CT Colonography 1950 Colonoscopy 1950 Colorectal Cancer Screening 1950 FIT DNA 1950 FIT 1950 Sigmoidoscopy (10 year) with FIT yearly 1950 Sigmoidoscopy 1950 Pneumoccocal Vaccine: 65+ (1 of 2 - PCV) 12/27/1955 DM Opthalmology Exam 12/27/1959 DM Urine Microalbumin yearly 12/27/1959 Hepatitis C Screening 12/27/1967 Tdap adult 1968 Tetanus vaccine 1968 Zoster vaccine (1 of 2) 12/27/1999 Covid-19 Vaccine (4 2022-2 4 season) 2024 05/02/2022, 10/13/2020, 09/15/2020 Influenza (Flu) vaccine (1 o f 1 - Influenza standard series) 03/15/2024 DM Hemoglobin A1c 05/26/2024 02/24/2024, , 06/14/2020 DM Creatinine yearly 03/19/2025 03/19/2024, 03/17/2024, 03/02/2024, Additional history exists Lipid Screening Discontinued 02/24/2024 Diabetes Screening (HgbA1C o r Glucose) Discontinued 03/19/2024, 03/17/2024, 03/02/2024, Additional history exists Medical Devices Implanted Type Area Client Services Account Manager Device Identifier Shelf Expiration Date Model / Serial / Lot Valve Coronary Aortic 23mm Tissue Trnscath Biopros Inspiris ([id number]) (Autoreq) - [id number] Implanted:Qty : 1 on 06/13/2020 by Chun Wiley MD at [facility] IMPLANTS Left: Heart [employer] - BOB LI 03/02/2024 [id number] 23MM / [id number] / Cable,Cut,Edg ,Blnt,Ss,3tpr ([id number]) - [id number] Implanted:Qty : 1 on 06/13/2020 by Chun Wiley MD at [facility] IMPLANTS Midline: Sternum [employer] - [id number] 10/29/2024 [id number] / / [id number] Procedures Procedure Name Priority Date/Time Associated Diagnosis Comments POC, GLUCOSE Routine 03/21/2024 2:20 PM EDT POC, GLUCOSE Routine 03/21/2024 11:28 AM EDT SCAN DOC: TELEMETRY STRIPS 03/21/2024 7:31 AM EDT POC, GLUCOSE Routine 03/21/2024 7:30 AM EDT POC, GLUCOSE Routine 03/21/2024 3:17 AM EDT POC, GLUCOSE Routine 03/20/2024 11:58 PM EDT SCAN DOC: TELEMETRY STRIPS 03/20/2024 7:53 PM EDT POC, GLUCOSE Routine 03/20/2024 7:40 PM EDT POC, GLUCOSE Routine 03/20/2024 4:28 PM EDT POC, GLUCOSE Routine 03/20/2024 12:01 PM EDT SCAN DOC: TELEMETRY STRIPS 03/20/2024 8:07 AM EDT POC, GLUCOSE Routine 03/20/2024 7:25 AM EDT POC, GLUCOSE Routine 03/20/2024 3:50 AM EDT POC, GLUCOSE Routine 03/20/2024 12:08 AM EDT SCAN DOC: TELEMETRY STRIPS 03/19/2024 10:49 PM EDT POC, GLUCOSE Routine 03/19/2024 7:04 PM EDT POC, GLUCOSE Routine 03/19/2024 6:15 PM EDT POC, GLUCOSE Routine 03/19/2024 4:09 PM EDT POC, GLUCOSE Routine 03/19/2024 11:16 AM EDT SCAN DOC: TELEMETRY STRIPS 03/19/2024 8:26 AM EDT POC, GLUCOSE Routine 03/19/2024 7:28 AM EDT BASIC METABOLIC PANEL Routine 03/19/2024 7:04 AM EDT SCAN DOC: TELEMETRY STRIPS 03/18/2024 9:05 PM EDT POC, GLUCOSE Routine 03/18/2024 7:47 PM EDT POC, GLUCOSE Routine 03/18/2024 4:36 PM EDT SODIUM, URINE, RANDOM Routine 03/18/2024 3:31 PM EDT SCAN DOC: TELEMETRY STRIPS 03/18/2024 2:33 PM EDT POC, GLUCOSE Routine 03/18/2024 2:09 PM EDT POC, GLUCOSE Routine 03/18/2024 12:15 PM EDT POC, GLUCOSE Routine 03/18/2024 12:14 PM EDT ECHO LMTD W CONTRAST W LMTD SPEC DOPP Routine 03/18/2024 11:21 AM EDT Acute on chronic congestive heart failure, unspecified heart failure type TROPONIN - SINGLE STAT 03/18/2024 10: 53 AM EDT SCAN DOC: TELEMETRY STRIPS 03/18/2024 8:40 AM EDT TROPONIN - SINGLE STAT 03/18/2024 7:5 5 AM EDT POC, GLUCOSE Routine 03/18/2024 7:54 AM EDT SCAN DOC: TELEMETRY STRIPS 03/18/2024 2:28 AM EDT POC, GLUCOSE Routine 03/18/2024 1:26 [...] STAT Add-On 03/17/2024 11: 34 PM EDT HEPATIC FUNCTION PANEL Routine 11:34 PM EDT PRO-BRAIN NATRIURETIC PEPTIDE Routine 03/17/2024 11:34 PM EDT MAGNESIUM Routine 03/17/2024 11:34 PM EDT BASIC METABOLIC PANEL Routine 03/17/2024 11:34 PM EDT CBC (WITH DIFF) Routine 03/17/2024 11:34 PM EDT SCAN DOC: TELEMETRY STRIPS 03/17/2024 10:45 PM EDT [facility] EX[facility]NAL CARDIOLOGY RESULT Routine 03/17/2024 1:55 PM EDT [facility] EXTERNAL CARDIOLOGY RESULT Routine 03/17/2024 1:54 PM EDT FILM LIBRARY STORAGE ONLY MR HEAD Routine 03/10/2024 2:40 PM EDT POC, GLUCOSE Routine 03/02/2024 12:13 PM EDT SCAN DOC: TELEMETRY STRIPS 03/02/2024 8:00 AM EDT POC, GLUCOSE Routine 03/02/2024 7:19 AM EDT CBC (WITH DIFF) Routine 03/02/2024 5:58 AM EDT BASIC METABOLIC PANEL Routine 03/02/2024 5:58 AM EDT SCAN DOC: TELEMETRY STRIPS 03/01/2024 9:29 PM EDT POC, GLUCOSE Routine 03/01/2024 8:24 PM EDT POC, GLUCOSE Routine 03/01/2024 4:27 PM EDT POC, GLUCOSE Routine 03/01/2024 11:33 AM EDT SCAN DOC: TELEMETRY STRIPS 03/01/2024 11:06 AM EDT SCAN DOC: TELEMETRY STRIPS 03/01/2024 7:37 AM EDT POC, GLUCOSE Routine 03/01/2024 7:11 AM EDT BASIC METABOLIC PANEL Routine 03/01/2024 5:36 AM EDT SCAN DOC: TELEMETRY STRIPS 02/29/2024 8:33 PM EDT POC, GLUCOSE Routine 02/29/2024 8:32 PM EDT POC, GLUCOSE Routine 02/29/2024 4:26 PM EDT POC, GLUCOSE Routine 02/29/2024 11:51 AM EDT POC, GLUCOSE Routine 02/29/2024 11:36 AM EDT POC, GLUCOSE Routine 02/29/2024 7:31 AM EDT SCAN DOC: TELEMETRY STRIPS 02/29/2024 7:18 AM EDT BASIC METABOLIC PANEL Routine 02/29/2024 5:52 AM EDT POC, GLUCOSE Routine 02/28/2024 9:22 PM EDT URINALYSIS MICROSCOPIC EXAM Routine 02/28/2024 8:58 PM EDT URINALYSIS DIPSTICK Routine 02/28/2024 8 :58 PM EDT _URINALYSIS WITH MICRSOCOPIC Routine 02/28/2024 8:58 PM EDT ELECTROLYTES, URINE, RANDOM Routine 02/28/2024 8:58 PM EDT OSMOLALITY, URINE, RANDOM Routine 02/28/2024 8:58 PM EDT SCAN DOC: TELEMETRY STRIPS 02/28/2024 8:27 PM EDT POC, GLUCOSE Routine 02/28/2024 4:49 PM EDT POC, GLUCOSE Routine 02/28/2024 11:22 AM EDT XR CHEST ONE VIEW Routine 02/28/2024 10: 13 AM EDT SCAN DOC: TELEMETRY STRIPS 02/28/2024 7:28 AM EDT SCAN DOC: TELEMETRY STRIPS 02/28/2024 7:28 AM EDT POC, GLUCOSE Routine 02/28/2024 7:24 AM EDT OSMOLALITY Add-On 02/28/2024 5:33 AM EDT MAGNESIUM Routine 02/28/2024 5:33 AM EDT CBC (WITH DIFF) Routine 02/28/2024 5:33 AM EDT BASIC METABOLIC PANEL Routine 02/28/2024 5:33 AM EDT POC, GLUCOSE Routine 02/27/2024 8:50 PM EDT SCAN DOC: TELEMETRY STRIPS 02/27/2024 8:03 PM EDT POC, GLUCOSE Routine 02/27/2024 3:25 PM EDT POC, GLUCOSE Routine 02/27/2024 11:09 AM EDT SCAN DOC: TELEMETRY STRIPS 02/27/2024 8:08 AM EDT POC, GLUCOSE Routine 02/27/2024 7:25 AM EDT OSMOLALITY Add-On 02/27/2024 6:30 AM EDT MAGNESIUM Routine 02/27/2024 6:30 AM EDT CBC (WITH DIFF) Routine 02/27/2024 6:30 AM EDT BASIC METABOLIC PANEL Routine 02/27/2024 6:30 AM EDT SCAN DOC: TELEMETRY STRIPS 02/26/2024 9:45 PM EDT POC, GLUCOSE Routine 02/26/2024 9:14 PM EDT SCAN DOC: TELEMETRY STRIPS 02/26/2024 8:51 PM EDT POC, GLUCOSE Routine 02/26/2024 5:00 PM EDT POC, GLUCOSE Routine 02/26/2024 3:51 PM EDT POC, GLUCOSE Routine 02/26/2024 11:31 AM EDT POC, GLUCOSE Routine 02/26/2024 9:35 AM EDT SCAN DOC: TELEMETRY STRIPS 02/26/2024 7:57 AM EDT POC, GLUCOSE Routine 02/26/2024 7:41 AM EDT POC, GLUCOSE Routine 02/26/2024 3:21 AM EDT POC, GLUCOSE Routine 02/26/2024 12:04 AM EDT OSMOLALITY Routine 02/26/2024 12:04 AM EDT MAGNESIUM Routine 02/26/2024 12:04 AM EDT CBC (WITH DIFF) Routine 02/26/2024 12:04 AM EDT BASIC METABOLIC PANEL Routine 02/26/2024 12:04 AM EDT SCAN DOC: TELEMETRY STRIPS 02/25/2024 7:51 PM EDT POC, GLUCOSE Routine 02/25/2024 7:39 PM EDT POC, GLUCOSE Routine 02/25/2024 4:11 PM EDT EEG CONTINUOUS MONITORING INPATIENT Routine 02/25/2024 4:00 PM EDT MRI BRAIN WO CONTRAST Routine 02/25/2024 3:06 PM EDT CAROTID DUPLEX, BILATERAL Routine 02/25/2024 2:32 PM EDT Internal carotid artery stenosis, unspecified laterality BASIC METABOLIC PANEL Timed 02/25/2024 1:12 PM EDT POC, GLUCOSE Routine 02/25/2024 12:44 PM EDT POC, GLUCOSE Routine 02/25/2024 7:29 AM EDT POC, GLUCOSE Routine 02/25/2024 3:58 AM EDT MAGNESIUM Routine 02/25/2024 1:06 AM EDT CBC (WITH DIFF) Routine 02/25/2024 1:06 AM EDT BASIC METABOLIC PANEL Routine 02/25/2024 1:06 AM EDT POC, GLUCOSE Routine 02/24/2024 11:[address] HEAD WO CONTRAST (POST MT) STAT 02/24/2024 10:04 PM EDT POC, GLUCOSE Routine 02/24/2024 9:00 PM EDT ELECTROLYTES, URINE, RANDOM Add-On 02/24/2024 8:58 PM EDT OSMOLALITY, URINE, RANDOM Routine 02/24/2024 8:58 PM EDT OSMOLALITY Routine 02/24/2024 8:58 PM EDT POC, GLUCOSE Routine 02/24/2024 6:45 PM EDT POC, GLUCOSE Routine 02/24/2024 3:24 PM EDT TSH Add-On 02/24/2024 1:31 PM EDT LIPID PANEL (REFLEX DIRECT LDL) Add-On 02/24/2024 1:31 PM EDT CBC (WITH DIFF) Routine 02/24/2024 1:31 PM EDT BASIC METABOLIC PANEL Routine 02/24/2024 1:31 PM EDT PROTHROMBIN TIME STAT 02/24/2024 1:25 PM EDT HC PARTIAL THROMBOPLASTIN TIME STAT 02/24/2024 1:[address] HEAD WO CONTRAST (GENERIC) STAT 02/24/2024 1:10 PM EDT CTA HEAD/NECK MULTIPHASE (THROMBECTOMY PROTOCOL) Routine 02/24/2024 1:10 PM EDT POC, GLUCOSE Routine 02/24/2024 12:45 PM EDT CARDIAC CATHETERIZATION Routine 02/24/2024 12:32 PM EDT POC, GLUCOSE Routine 02/24/2024 11:05 AM EDT SCAN DOC: TELEMETRY STRIPS 02/24/2024 10:06 AM EDT ECHO COMPLETE W CONTRAST Routine 02/24/2024 9:18 AM EDT Coronary artery disease, unspecified vessel or lesion type, unspecified whether angina present, unspecified whether upper sioux or transplanted heart SCAN DOC: TELEMETRY STRIPS 02/24/2024 8:14 AM EDT POC, GLUCOSE Routine 02/24/2024 7:40 AM EDT PROTHROMBIN TIME Add-On 02/24/2024 3:02 AM EDT HEMOGLOBIN A1C Add-On 02/24/2024 3:02 AM EDT TROPONIN - SINGLE STAT Add-On 02/24/2024 3:0 2 AM EDT HEPARIN (UNFRACTIONATED) LEVEL Timed 02/24/2024 3:02 AM EDT MAGNESIUM Routine 02/24/2024 3:02 AM EDT BASIC METABOLIC PANEL Routine 02/24/2024 3:02 AM EDT CBC (WITH DIFF) Routine 02/24/2024 3:02 AM EDT EKG 12-LEAD Routine 02/24/2024 2:00 AM EDT Coronary artery disease, unspecified vessel or lesion type, unspecified whether angina present, unspecified whether upper sioux or transplanted heart SCAN DOC: TELEMETRY STRIPS 02/23/2024 10:00 PM EDT POC, GLUCOSE Routine 02/23/2024 9:40 PM EDT PRO-BRAIN NATRIURETIC PEPTIDE Routine 02/23/2024 9:37 PM EDT MAGNESIUM Routine 02/23/2024 9:37 PM EDT BASIC METABOLIC PANEL Routine 02/23/2024 9:37 PM EDT CBC (WITH DIFF) Routine 02/23/2024 9:37 PM EDT TROPONIN - SINGLE STAT 02/23/2024 9:3 7 PM EDT SCAN DOC: TELEMETRY STRIPS 02/23/2024 8:53 PM EDT [facility]NAL CARDIOLOGY RESULT Routine 02/23/2024 10:57 AM EDT from Last 3 Months Results * (ABNORMAL) POC, GLUCOSE (03/21/2024 2:20 PM EDT) Only the most recent of63 resultswithin the time period is included. [facility] Glucometer, POC 217(H) 65 - 199 mg/dL 03/21/2024 2:21 PM EDT [facility] Comment:Supplemental ranges: <140 mg/dL before meals <180 mg/dL all other times of the day. Blood CAPILLARY BLOOD / Unknown 03/21/2024 2:20 PM EDT 03/21/2024 2:21 PM EDT Avtar Palafox MD POINT OF CARE TEST O RDERABLES [facility] [place] [address] * Scan Doc: Telemetry Strips (03/21/2024 7:31 AM EDT) Only the most recent of29 resultswithin the time period is included. Narrative 03/21/2024 7:31 AM EDT Ordered by an unspecified provider. Scanning Provider MEDIA MGR SCAN EXT O RDR/RSLT * (ABNORMAL) Basic Metabolic Panel (03/19/2024 7:04 AM EDT) Only the most recent of13 resultswithin the time period is included. Glucose 142 65 - 199 mg/dL 03/19/2024 7:49 AM [facility] Comment:Glucose Concentratio n >=200 mg/dL plus symptoms is consistent with Diabetes Mellitus. Blood Urea Nitrogen 15 10 - 20 mg/dL 03/19/2024 7:49 AM [facility] Creatinine 1.11 0.80 - 1.50 mg/dL 03/19/2024 7:49 AM [facility] Sodium 134(L) 135 - 145 mMol/L 03/19/2024 7:49 AM [facility] Potassium 4.3 3.5 - 5.0 mMol/L 03/19/2024 7:49 AM [facility] Chloride 96(L) 98 - 107 mMol/L 03/19/2024 7:49 AM [facility] Carbon Dioxide 26 22 - 31 mMol/L 03/19/2024 7:49 AM [facility] Anion Gap 12 5 - 15 mMol/L 03/19/2024 7:49 AM [facility] Calcium 9.2 8.5 - 10.5 mg/dL 03/19/2024 7:49 AM [facility] Est Glomerular Filtration Rate - Male 70 mL/min/1. 73 m?? 03/19/2024 7:49 AM [facility] Comment: This patient's estimated GFR was [...] AM EDT 03/19/2024 7:10 AM EDT Carlos Toro MD CHEMISTRY ORDER DILLON [facility] [place] [address] * Sodium, urine, random (03/18/2024 3:31 PM EDT) Sodium, Urine 95 mMol/L 03/18/2024 4:43 PM EDT [facility] Urine URINE SPECIMEN / Unknown Non Blood Collection / Unknown 03/18/2024 3:31 PM EDT 03/18/2024 3:37 PM EDT Carlos Toro MD URINE ORDERABLE S Performing Organization Address City/[facility]/ZIP Co de Phone Number [facility] [place] [address] * ECHO LMTD W CONTRAST W LMTD SPEC DOPP (03/18/2024 11:21 AM EDT) EF 42 HEARTLAB SYSTEM Anatomical Region Laterality Modality Cardiac Other 03/18/2024 10:2 2 AM EDT Narrative 03/18/2024 1:13 PM EDT [address] [place] [address] ? Echocardiogram Report Name: JOHNSON TOBAR ?Study Date: 03/18/2024 10:22 AMBP: 119/74 mmHg ? Patient Location: [facility] 0474 A : 1950 ? Height: 165 cm ? Account: [id number] Age: 73 yrs ? Weight: 74 kg Gender: Male ?BSA: 1.8 m2 Ordering Physician: BYRON CARLSON Referring Physician: LILIA MICHELLE Performed By: Chris Burnham RDCS Reason For Study: CHF Interpreting Fellow: Jorge A Ghotra. Exam Location: [facility]. Interpretation Summary Technically limited study due [...] motions abnormalities are new. Procedure Limited - 39220. Doppler - 57550. Color Doppler - 99934. Image enhancement Optison was used for left [...] mmHg Dimensionless index Aov: 0.67 TR max angel: 375.9 cm/sec RVSP(TR): 56.5 mmHg I ?WMSI = 1.75 ? % Normal = 56 ?Segments ??Size X - Cannot ?? 1 - Normal ?? 2 - ? 3 - Akinetic 4 - ?1-2 ? small Interpret ? Hypokinetic ?Dyskinetic ?? 3-5 ? moderate 5 - ? 6-14 ?large Aneurysmal ?15-16 ?? diffuse Procedure Note John Andrade MD - 03/18/2024 1 [place] [id number] Echocardiogram Report Name: JOHNSON TOBAR Study Date: 0:22 AMBP: 119/74 mmHg Patient Location: [address] : 1950 Height: 165 cm Account: [id number] Age: 73 yrs Weight: 74 kg Gender: Male BSA: 1.8 m2 Ordering Physician: BYRON CARLSON Referring Physician: LILIA MICHELLE Performed By: Chris Burnham RDCS Reason For Study: CHF Interpreting Fellow: Jorge A Ghotra. Exam Location: [facility]. Interpretation Summary Technically limited study due [...] motions abnormalities are new. Procedure Limited - 55150. Doppler - 38835. Color Doppler - 07226. Image enhancementOptison was used for left ventricular [...] mmHg Dimensionless index Aov: 0.67 TR max angel: 375.9 cm/sec RVSP(TR): 56.5 mmHg I WMSI = 1.75 % Normal = 56 SegmentsSize X - Cannot 1 - Normal 2 - 3 - Akinetic 4 - 1-2small Interpret Hypokinetic Dyskinetic 3-5moderate 5 - 6-14large Aneurysmal 15-16diffuse Byron Carlson MD ECHO ORDERABLES * (ABNORMAL) Troponin - Single (03/18/2024 10:53 AM EDT) Only the most recent of5 resultswithin the time period is included. [facility] Troponin-T, High Sensitivity 250(H) <=22 ng/L 03/18/2024 12:37 PM EDT [facility] Comment: This patient's troponin [...] troponin value can be found in the [facility] Laboratory Test Catalog Troponin - https://[email or web address].org/catalogs/565/files/05969 Reference: Fourth [place] Definition of Myocardial Infarction. Journal of the [place] [employer] 2018;72:6993-2980 Blood VENOUS BLOOD SPECIMEN / Unknown IP Care Team Draw / Unknown 03/18/2024 10:53 AM EDT 03/18/2024 11:52 AM EDT Carlos Toro MD CHEMISTRY ORDER [facility] [place] [address] * CT Head wo Contrast (Generic) (03/18/2024 1:13 AM EDT) Only the most recent of2 resultswithin the time period is included. [employer] Signature WORKSTATION ID [id number] RAD Anatomical Region Laterality Modality Head Computed Tomogra [...] who have questions please contact the health interior plant caretaker that requested your imaging first. ? Narrative [...] patients who have questions please contactthe health interior plant caretaker that requested your imaging first. Saniya Patrick MD IMG CT ORDERABLES * Respiratory Panel PCR (03/18/2024 12:08 AM EDT) Pathologist [facility] Respiratory Panel PCR Negative Negative 03/18/2024 1:29 AM EDT [facility] Adenovirus Not Detected Not Detected 03/18/2024 1:29 AM EDT [facility] Coronavirus HKU1 Not Detected Not Detected 03/18/2024 1:29 AM EDT [facility] [facility] Coronavirus NL63 Not Detected Not Detected 03/18/2024 1:29 AM EDT [facility] Coronavirus 229E Not Detected Not Detected 03/18/2024 1:29 AM EDT [facility] Coronavirus OC43 Not Detected Not Detected 03/18/2024 1:29 AM EDT [facility] SARS-CoV-2 Not Detected Not Detected 03/18/2024 1:29 AM EDT [facility] Human Metapneumovirus Not Detected Not Detected 03/18/2024 1:29 AM EDT [facility] Human Rhinovirus/Enterov irus Not Detected Not Detected 03/18/2024 1:29 AM EDT [facility] Influenza A Not Detected Not Detected 03/18/2024 1:29 AM EDT [facility] Influenza B Not Detected Not Detected 03/18/2024 1:29 AM EDT [facility] Parainfluenza 1 Not Detected Not Detected 03/18/2024 1:29 AM EDT [facility] Parainfluenza 2 Not Detected Not Detected 03/18/2024 1:29 AM EDT [facility] Parainfluenza 3 Not Detected Not Detected 03/18/2024 1:29 AM EDT [facility] Parainfluenza 4 Not Detected Not Detected 03/18/2024 1:29 AM EDT [facility] Respiratory Syncytial Virus Not Detected Not Detected 03/18/2024 1:29 AM EDT [facility] Chlamydophila pneumoniae Not Detected Not Detected 03/18/2024 1:29 AM EDT [facility] Mycoplasma pneumoniae Not Detected Not Detected 03/18/2024 1:29 AM EDT [facility] Swab SPECIMEN FROM NASOPHARYNGEAL STRUCTURE / Unknown Non Blood Collection / Unknown 03/18/2024 12:08 AM EDT 03/18/2024 12:21 AM EDT Narrative [facility] - 03/18/2024 1:29 AM EDT Respiratory Panels are performed on the [employer] using multiplexed PCR nucleic acid detection. Negative results do not preclude respiratory infection and should not be used as the sole basis for diagnosis, treatment, or other management decisions. Saniya Patrick MD MICROBIOLOGY - [facility] AL ORDERABLES [facility] [place] [id number] * XR Chest One View (03/18/2024 12:01 AM EDT) Only the most recent of2 resultswithin the time period is included. WORKSTATION ID [id number] RAD Anatomical Region Laterality Modality Chest N/A [...] who have questions please contact the health interior plant caretaker that requested your imaging first. ? Electronically signed by: Theo Lunsford MD, [facility] ??([phone]), at 03/18/2024 8:59 AM Narrative 03/18/2024 8:59 AM EDT EXAMINATION: XR [...] patients who have questions please contactthe health interior plant caretaker that requested your imaging first. Saniya Patrick MD IMG DX ORDERABLES * EKG 12 Lead (03/17/2024 11:39 PM EDT) Only the most recent of2 resultswithin the time period is included. Ventricular rate 77 BPM MUSE SYSTEM Atrial Rate 77 BPM MUSE SYSTEM P-R Interval 116 ms MUSE SYSTEM QRS Duration 92 ms MUSE SYSTEM Q-T Interval 384 ms MUSE SYSTEM QTC Calculated (Bezet) 434 ms MUSE SYSTEM Calculated P [place] 71 degrees MUSE SYSTEM Calculated R [place] -14 degrees MUSE SYSTEM Calculated T [place] 36 degrees MUSE SYSTEM INTERPRETATION Normal sinus rhythm Possible Left atrial enlargement Nonspecific ST and T wave abnormality Abnormal ECG When compared with ECG of 24-FEB-2024 02:00, Criteria for Inferior infarct are no longer Present I personally reviewed the tracing and edited the fellows interpretation Confirmed by fellow Sloan Coello () on 03/18/2024 9:06:47 PM Confirmed by MD Hollingsworth Jose ([id number]) on 03/19/2024 2:56:46 PM MUSE SYSTEM 03/17/2024 11:3 9 PM EDT 03/19/2024 2:56 PM EDT Saniya Patrick MD ECG ORDERABLES MUSE SYSTEM * (ABNORMAL) CBC (with Diff) (03/17/2024 11:34 PM EDT) Only the most recent of9 resultswithin the time period is included. Pathologist [facility] White Blood Cell 7.96 4.00 - 9.50 x10(3)/mc L 03/17/2024 11:47 PM EDT [facility] Red Blood Cell 3.71(L) 4.58 - 5.54 x10(6)/mc L 03/17/2024 11:47 PM EDT [facility] Hemoglobin 10.1(L) 13.7 - 16.5 g/dL 03/17/2024 11:47 PM EDT [facility] Hematocrit 31.2(L) 40.5 - 48.5 % 03/17/2024 11:47 PM [facility] Mean Cell Volume 84.1 82.9 - 93.1 fL 03/17/2024 11:47 PM [facility] Mean Cell Hemoglobin 27.2(L) 27.5 - 32.1 pg 03/17/2024 11:47 PM [facility] Mean Cell Hemoglobin Concentration 32.4 32.0 - 35.7 g/dL 03/17/2024 11:47 PM [facility] Platelet 221 145 - 357 x10(3)/mc L 03/17/2024 11:47 PM [facility] Mean Platelet Volume 10.5 7.6 - 12.9 fL 03/17/2024 11:47 PM [facility] RDW Standard Deviation 51.9(H) 36.0 - 45.0 fL 03/17/2024 11:47 PM [facility] RDW coefficient of variation 17.3(H) 11.4 - 13.8 % 03/17/2024 11:47 PM [facility] NRBC% auto 0.0 % 03/17/2024 11:47 PM [facility] NRBC Absolute 0.00 0.00 - 0.00 x10(3)/mc L 03/17/2024 11:47 PM [facility] Neutrophil % 74.1 % 03/17/2024 11:47 PM [facility] Neutrophil Absolute (ANC) - Automated 5.90 1.70 - 6.10 x10(3)/mc L 03/17/2024 11:47 PM [facility] Lymph % 10.3 % 03/17/2024 11:47 PM [facility] Lymph Absolute 0.82(L) 0.90 - 3.20 x10(3)/mc L 03/17/2024 11:47 PM [facility] Monocyte % 11.4 % 03/17/2024 11:47 PM [facility] Monocyte Absolute 0.91(H) 0.30 - 0.90 x10(3)/mc L 03/17/2024 11:47 PM EDT [facility] Eos % 3.3 % 03/17/2024 11:47 PM EDT [facility] Eos Absolute 0.26 0.00 - 0.40 x10(3)/mc L 03/17/2024 11:47 PM EDT [facility] Basophil % 0.5 % 03/17/2024 11:47 PM EDT [facility] Baso Absolute 0.04 0.00 - 0.10 x10(3)/mc L 03/17/2024 11:47 PM EDT [facility] Immature Gran % 0.4 % 11:47 PM EDT [facility] Immature Gran Absolute 0.03 0.00 - 0.04 x10(3)/mc L 03/17/2024 11:47 PM EDT [facility] Blood VENOUS BLOOD SPECIMEN / Unknown Venipuncture / Unknown 03/17/2024 11:34 PM EDT 03/17/2024 11:38 PM EDT Saniya Patrick MD HEMATOLOGY ORDERABLE S [facility] [place] [address] * (ABNORMAL) pro-Brain Natriuretic Peptide (03/17/2024 11:34 PM EDT) Only the most recent of2 resultswithin the time period is included. NT-proBNP 7,905(H) <=124 pg/mL 03/18/2024 12:19 AM EDT [facility] Blood VENOUS BLOOD SPECIMEN / Unknown Venipuncture / Unknown 03/17/2024 11:34 PM EDT 03/17/2024 11:38 PM EDT Saniya Patrick MD CHEMISTRY ORDERABLES [facility] [place] [address] * (ABNORMAL) Magnesium (03/17/2024 11:34 PM EDT) Only the most recent of7 resultswithin the time period is included. Magnesium 0.65(L) 0.69 - 1.07 mMol/L 03/18/2024 12:19 AM EDT [facility] Blood VENOUS BLOOD SPECIMEN / Unknown Venipuncture / Unknown 03/17/2024 11:34 PM EDT 03/17/2024 11:38 PM EDT Saniya Patrick MD CHEMISTRY ORDERABLES [facility] [place] [place] [address] * Hepatic Function Panel (03/17/2024 11:34 PM EDT) Pathologist [facility] Albumin 3.6 3.2 - 5.2 g/dL 03/18/2024 12:19 AM EDT [facility] Aspartate Aminotransferase 26 <=39 unit/L 03/18/2024 12:19 AM EDT [facility] Alanine Aminotransferase 16 0 - 55 unit/L 03/18/2024 12:19 AM EDT [facility] Alkaline Phosphatase 105 40 - 130 unit/L 03/18/2024 12:19 AM EDT [facility] Bilirubin, Total 0.7 <=1.3 mg/dL 03/18/2024 12:19 AM EDT [facility] Bilirubin, Direct 0.3 0.0 - 0.3 mg/dL 03/18/2024 12:19 AM EDT [facility] Protein, Total 6.7 6.1 - 8.0 g/dL 03/18/2024 12:19 AM EDT [facility] Blood VENOUS BLOOD SPECIMEN / Unknown Venipuncture / Unknown 03/17/2024 11:34 PM EDT 03/17/2024 11:38 PM EDT Saniya Patrick MD CHEMISTRY ORDERABLES Performing Organization Address City/[facility] Co de Phone Number [facility] [place] [address] * External Cardiology Result (03/17/2024 1:55 PM EDT) Anatomical Region Laterality Modality Other Historical Provider EXTERNAL CARDIOLO GY RESULT * External Cardiology Result (03/17/2024 1:54 PM EDT) Anatomical Region Laterality Modality Other Historical Provider EXTERNAL CARDIOLO GY RESULT * Film Library- Storage Only MR Head (03/10/2024 2:40 PM EDT) 03/11/2024 8:20 AM EDT Narrative [facility] - 03/11/2024 8:20 AM EDT This exam is auto-finalizing. It's purpose is for storage only. Vitor Camara MD IMG FILM LIBRARY ORD ERABLES Performing Organization Address City/[facility]/ZIP Co de Phone Number [place], [place] * Urinalysis Microscopic Exam (02/28/2024 8:58 PM EDT) Bacteria, Urine None None /HPF 9:21 PM EDT [facility] RBC, Urine 3 0 - 3 /HPF 02/28/2024 9:21 PM EDT [facility] WBC, Urine 1 0 - 3 /HPF 02/28/2024 9:21 PM EDT [facility] Squamous Epithelial Cells, Urine 0 0 - 5 /HPF 02/28/2024 9:21 PM EDT [facility] Hyaline Casts, Urine 0 0 - 2 /LPF 02/28/2024 9:21 PM EDT [facility] Urine URINE SPECIMEN / Unknown Non Blood Collection / Unknown 02/28/2024 8:58 PM EDT 02/28/2024 9:08 PM EDT Kd Huggins MD URINE ORDERABLES Performing Organization Address City/[facility]/ZIP Co de Phone Number [facility] [place] [address] * Electrolytes, urine, random (02/28/2024 8:58 PM EDT) Only the most recent of2 resultswithin the time period is included. Sodium, Urine <20 mMol/L 02/28/2024 10:09 PM EDT [facility] Potassium, Urine 17 mMol/L 02/28/2024 10:09 PM EDT [facility] Chloride, Urine <20 mMol/L 02/28/2024 10:09 PM EDT [facility] Urine URINE SPECIMEN / Unknown Non Blood Collection / Unknown 02/28/2024 8:58 PM EDT 02/28/2024 9:08 PM EDT Kd Huggins MD URINE ORDERABLES Performing Organization Address [facility]/ZIP Co de Phone Number [facility] [place] [address] * Osmolality, urine, random (02/28/2024 8:58 PM EDT) Only the most recent of2 resultswithin the time period is included. Osmolality, Urine 314 50 - 1,200 mOsm/kg 02/28/2024 10:27 PM EDT [facility] Urine URINE SPECIMEN / Unknown Non Blood Collection / Unknown 02/28/2024 8:58 PM EDT 02/28/2024 9:08 PM EDT Kd Huggins MD URINE ORDERABLES Performing Organization Address City/[facility]/ZIP Co de Phone Number [facility] [place] [address] * (ABNORMAL) Urinalysis Dipstick (02/28/2024 8:58 PM EDT) Glucose, Urine Dipstick Negative Negative 02/28/2024 9:21 PM EDT [facility] Protein, Urine Dipstick 100 mg/dL(A) Negative 02/28/2024 9:21 PM [facility] Bilirubin, Urine Dipstick Negative Negative 02/28/2024 9:21 PM [facility] Comment:Clinical correlation required for positive Urine Bilirubin results as false positive may occur with some drugs and drug related products. If a false positive is suspected a serum total bilirubin should be considered if clinically indicated. Urobilinogen, Urine Dipstick Normal Normal, 0.2 mg/dL, 1.0 mg/dL 02/28/2024 9:21 PM [facility] pH, Urine (dipstick) 6.0 5.0 - 8.0 02/28/2024 9:21 PM [facility] Blood, Urine Dipstick Trace(A) Negative 02/28/2024 9:21 PM [facility] Ketone, Urine Dipstick Negative Negative 02/28/2024 9:21 PM [facility] Nitrite, Urine Dipstick Negative Negative 02/28/2024 9:21 PM [facility] Leukocytes, Urine Dipstick Negative Negative 02/28/2024 9:21 PM [facility] Specific [place] Urine Automated 1.013 1.005 - 1.030 02/28/2024 9:21 PM [facility] Appearance, Urine Dipstick Clear Clear 02/28/2024 9:21 PM [facility] Color, Urine Dipstick Yellow Yellow, Dark Yellow 02/28/2024 9:21 PM [facility] Urine URINE SPECIMEN / Unknown Non Blood Collection / Unknown 02/28/2024 8:58 PM EDT 02/28/2024 9:08 PM EDT Kd Huggins MD URINE ORDERABLES [facility] [place] [address] * (ABNORMAL) Osmolality (02/28/2024 5:33 AM EDT) Only the most recent of4 resultswithin the time period is included. Osmolality 270(L) 275 - 295 mOsm/kg 02/28/2024 9:50 AM EDT [facility] Blood VENOUS BLOOD SPECIMEN / Unknown IP Care Team Draw / Unknown 02/28/2024 5:33 AM EDT 02/28/2024 5:54 AM EDT Kd Huggins MD CHEMISTRY ORDERABL ES [facility] [place] [place] [address] * EEG Continuous Monitoring Inpatient (02/25/2024 4:00 PM EDT) Narrative Josias Hyman MD - 02/25/2024 4:00 PM EDT Josias Hyman MD ? 02/25/2024 ??4:02 PM [facility] Department of Neurology Inpatient Continuous Video EEG Report Name of the Patient: ??Johnson Tobar Date of : ?1950 Patient Location: [facility] Date of Service: 02/24/2024 Referring physician: Reading Fellow: ??Josias Hyman MD Reading Attending: Initial time and date cEEG monitoring started: 23:38 on 02/24/2024. Daily report EEG start time: 02/23/23 2338 Daily report EEG end time: 02/24/23 1555 Total recording time: 16 hour 17 minute Indication for cvEEG: Encephalopathy/Altered mental status BRIEF HISTORY: Johnson Tobar is a 73 y.o. male pmhx of AsCVD s/p CABG x 3 (MCKEON --> LAD, SVG --> OM1 --> D1) and RCA PCI (06/2023), severe s/p AVR (05/2020), DM2, HTN, HLD who ??initially presented on 02/22 with chest pressure and light-headedness concerning for ACS. Pt was admitted to Cardiology service and initiated on heparin gtt. ??Earlier today, he was taken to the slab installer, though no intervention required. ??In recovery, pt started to have slurred speech and left hemiparesis, Stroke Alert called. MEDICATIONS: No relevant medications. ?? PRIOR EEG(s): No prior EEG available. ?? METHODS: A 21 channel digitized continuous electroencephalogram with video was set up and recording started at 23:38 on 02/24/2024. Following explanation of the procedure, the 10/20 international system of electrode placement was used to determine electrode placement and disposable MRI conditional electrodes were applied using the paste/collodion method of application. ??In addition to EEG the patient was monitored for EKG. Video was recorded during the session. FOUNDRY FINISHER'S REPORT: Performed by: AT At the onset of the recording the patient was awake. Movement and other artifact was not significant. Comments: None. ELECTROENCEPHALOGRAPHER'S REPORT Background: The background was continuous and spontaneously reactive composed of normal voltage, with well organized anterior to posterior gradient with frontally predominant beta and posterior alpha frequencies. ??There was a 9-10 Hz posterior dominant rhythm that attenuated with eye opening. Focal Asymmetries: Intermittent slowing and attenuation of R temporo-occipital region. Sleep: Sleep was characterized by decreased myogenic artifact and increased slowing. N2 sleep transients including sleep spindles and K complexes were seen, occasionally attenuated over the R hemisphere. Periods of REM were also recorded. Interictal Activity: There were no epileptiform discharges, rhythmic or periodic patterns. Patient Events or Seizures: No patient events or electrographic seizures were recorded. Provocative Maneuvers: Hyperventilation and photic stimulation were not performed. EKG: Single lead EKG was regular Technical Limitations: Patient disconnected for imaging study at approximately 1408 with no cerebral recording seen following this time. INTERPRETATION: This 16 hour 17 minute recording of continuous video EEG was abnormal due to the presence of: Interictal: 1)Occasional slowing of R temporo-occipital reigon 2)No epileptiform discharges, rhythmic or periodic patterns were seen Ictal: 1)No discrete seizures were seen CLINICAL CORRELATION: This EEG demonstrates focal cerebrocortical dysfunction of the R posterior quadrant. No discrete seizures, epileptiform discharges, rhythmic or periodic patterns were seen. 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 Thank you for letting us participate in the care of this patient. ??If you are a health care provider and have any questions regarding this report, please contact the number below. ??For patients who have questions please contact the health interior plant caretaker that requested your imaging first. ? Electronically signed by: LITZY Flores [facility] ([phone]), at 02/25/2024 3:26 PM Narrative 02/25/2024 3:26 PM EDT EXAMINATION: MRI BRAIN WO CONTRAST CLINICAL HISTORY: dysarthria, L sided weakness post cath TECHNIQUE: MRI of the brain performed without intravenous contrast administration. COMPARISON: CT head performed yesterday. FINDINGS: Cortically based signal alteration involves the posterior mesial right temporal lobe and adjacent dorsal thalamus. Mild mass effect with sulcal effacement. Restricted diffusion and petechial hemorrhage associated with this abnormality. No other sites of signal alteration or restricted diffusion. Ventricles and sulci are proportional size. Mild ethmoidal air cell formation. Paranasal sinuses and mastoid air cells are clear. Normal proximal intracranial flow voids. Procedure Note Alok Davila MD - 02/25/2024 EXAMINATION: MRI BRAIN WO CONTRAST CLINICAL HISTORY: dysarthria, L sided weakness post cath TECHNIQUE: MRI of the brain performed without intravenous contrast administration. COMPARISON: CT head performed yesterday. FINDINGS: Cortically based signal alteration involves the posterior mesial righttemporal lobe and adjacent dorsal thalamus. Mild mass effect with sulcaleffacement. Restricted diffusion and petechial hemorrhage associated with thisabnormality. No other sites of signal alteration or restricted diffusion. Ventricles and sulci are proportional size. Mild ethmoidal air cellformation. Paranasal sinuses and mastoid air cells are clear. Normal proximalintracranial flow voids. IMPRESSION Late acute posterior circulation infarct involving the posterior righttemporal lobe and adjacent thalamus. Thank you for letting us participate in the care of this patient. If youare a health care provider and have any questions regarding this report,please contact the number below. For patients who have questions please contactthe health interior plant caretaker that requested your imaging first. Gonzalez Barajas MD IMG MRI ORDERABLES * Carotid Duplex, Bilateral (02/25/2024 2:32 PM EDT) VB Text Report Department: Vascular Surgery Lab Patient: [id number] (JOHNSON TOBAR) CPT: 62240 Referring Physician: TWILA CM ?? Phone: Indications: Severe RT ICA stenosis by CT, ? patency Findings: ICA Proximal, Right ? PSV (cm/s): 165 ? EDV (cm/s): 48 ? ICA/CCA: 2.0 ? Plaque Structure: Echogenic ? Plaque Surface: Irregular ? %Stenosis: 16-49% ICA Distal, Right ? PSV (cm/s): 65 ? EDV (cm/s): 14 ? ICA/CCA: 0.8 CCA Distal, Right ? PSV (cm/s): 83 ? EDV (cm/s): 17 ? %Stenosis: Minimal CCA Proximal, Right ? PSV (cm/s): 91 ? EDV (cm/s): 18 External Carotid Artery, Right ? PSV (cm/s): 102 ? EDV (cm/s): 9 ? %Stenosis: <50% Vertebral, Right ? PSV (cm/s): 57 ? EDV (cm/s): 11 ? Direction of Flow: Antegrade ICA Proximal, Left ? PSV (cm/s): 68 ? EDV (cm/s): 16 ? ICA/CCA: 0.7 ? Plaque Structure: Echogenic ? Plaque Surface: Smooth ? %Stenosis: <15% ICA Middle, Left ? PSV (cm/s): 59 ? EDV (cm/s): 17 ? ICA/CCA: 0.6 ICA Distal, Left ? PSV (cm/s): 82 ? EDV (cm/s): 21 ? ICA/CCA: 0.8 CCA Distal, Left ? PSV (cm/s): 103 ? EDV (cm/s): 23 ? %Stenosis: Minimal CCA Proximal, Left ? PSV (cm/s): 120 ? EDV (cm/s): 23 External Carotid Artery, Left ? %Stenosis: <50% Vertebral, Left ? PSV (cm/s): 60 ? EDV (cm/s): 16 ? Direction of Flow: Antegrade Interpretation: RIGHT: A thin layer of circumferential plaque is present in the common carotid artery causing minimal stenosis. There is bulky irregular plaque in the proximal internal carotid artery causing 16-49% stenosis when compared to the more distal internal carotid artery. The bifurcation level is in the mid neck. Calcification of the carotid bifurcation prohibits thorough interrogation by Doppler: unable to exclude more significant stenosis. LEFT: A thin layer of circumferential plaque is present in the common carotid artery causing minimal stenosis. There is smooth plaque in the proximal internal carotid artery causing <15% stenosis when compared to the more distal internal carotid artery. The bifurcation level is in the mid neck. Vertebral Artery Data: Patent vertebral arteries with normal antegrade Doppler waveforms and velocities bilaterally. Comparison: ??No previous study in our vascular lab database for comparison. Electronically Signed by: ANTONIA CLINEDANN on 2024-02-28 10:38:39 AM [facility] VB Text Report End of Report [facility] 02/25/2024 2:32 PM EDT Twila Cm APPRENTICE STYLIST VASCULAR ORDERABLES [facility] * CT Head WO Contrast Dual Energy (Post MT/TPA) (02/24/2024 10:04 PM EDT) WORKSTATION ID [id number] [facility] Anatomical Region Laterality Modality Head Computed Tomogra phy Impressions 02/25/2024 1:25 AM EDT No acute intracranial hemorrhage, mass effect, or large territorial abnormality identified. Preliminary report signed by: Minh Jolley at 02/24/2024 11:50 PM I have personally reviewed the image(s) and the resident's interpretation and agree with the findings, Artur Palafox MD at 02/25/2024 1:25 AM Thank you for letting us participate in the care of this patient. ??If you are a health care provider and have any questions regarding this report, please contact the number below. ??For patients who have questions please contact the health interior plant caretaker that requested your imaging first. ? Electronically signed by: Artur Palafox MD, [facility] ([phone]), at 02/25/2024 1:25 AM Narrative 02/25/2024 1:25 AM EDT EXAMINATION: CT HEAD WO CONTRAST DUAL ENERGY (POST MT/TPA) CLINICAL HISTORY: 73 yo male presenting s/p tPA for left sided weakness, dysarthria, and right gaze deviation; now slow to respond to questions, ? evidence of hemorrhagic transformation TECHNIQUE: CT head performed without contrast. COMMENTS: Please note, this examination was ordered, performed, and interpreted in a STAT/emergency setting. COMPARISON: CT head and CTA head and neck 02/24/2024 FINDINGS: Cheung-white interfaces appear relatively well differentiated. No acute intracranial hemorrhage identified. No significant mass effect appreciated. Included paranasal sinuses appear well aerated. Included mastoid air cells appear well-aerated. Calvarium appears intact. Procedure Note Artur Palafox MD - 02/25/2024 EXAMINATION: CT HEAD WO CONTRAST DUAL ENERGY (POST MT/TPA) CLINICAL HISTORY: 73 yo male presenting s/p tPA for left sided weakness, dysarthria, and right gaze deviation; now slow to respond to questions,? evidence of hemorrhagic transformation TECHNIQUE: CT head performed without contrast. COMMENTS: Please note, this examination was ordered, performed, andinterpreted in a STAT/emergency setting. COMPARISON: CT head and CTA head and neck 02/24/2024 FINDINGS: Cheung-white interfaces appear relatively well differentiated. No acute intracranial hemorrhage identified. No significant mass effect appreciated. Included paranasal sinuses appear well aerated. Included mastoid air cells appear well-aerated. Calvarium appears intact. IMPRESSION No acute intracranial hemorrhage, mass effect, or large territorialabnormality identified. Preliminary report signed by: Minh Jolley at 02/24/2024 11:50PM I have personally reviewed the image(s) and the resident's interpretationand agree with the findings, Artur Palafox MD at 02/25/2024 1:25 AM Thank you for letting us participate in the care of this patient. If youare a health care provider and have any questions regarding this report,please contact the number below. For patients who have questions please contactthe health interior plant caretaker that requested your imaging first. Gonzalez Barajas MD IMG CT ORDERABLES * TSH (02/24/2024 1:31 PM EDT) Thyroid Stimulating Hormone 2.07 0.27 - 4.20 mcIU/mL 02/24/2024 7:48 PM EDT [facility] Blood VENOUS BLOOD SPECIMEN / Unknown 02/24/2024 1:31 PM EDT 02/24/2024 1:48 PM EDT Gonzalez Barajas MD CHEMISTRY ORDERABL ES [facility] [place] [address] * Lipid Panel (Reflex Direct LDL) (02/24/2024 1:31 PM EDT) Cholesterol, Total 91 mg/dL 02/24/2024 7:48 PM EDT [facility] Comment: Desirable: < 200 mg/dL Borderline High: 200 - 239 mg/dL High: > or = 240 mg/dL Triglyceride 122 mg/dL 02/24/2024 7:48 PM EDT [facility] Comment: Normal: <150 mg/dL Borderline High: 150-199 mg/dL High: 200-499 mg/dL Very High: > or =500 mg/dL HDL Cholesterol 32 mg/dL 7:48 PM EDT [facility] Comment:Males: High Risk: <4 0 mg/dL LDL Cholesterol 37 mg/dL 7:48 PM EDT [facility] Comment: Desirable: <100 mg/dL Above Desirable: 100-129 mg/dL Borderline High: 130-159 mg/dL High: 160-189 mg/dL Very High: > or =190 mg/dL Note: LDL calculation updated to the NIH LDL formula as of 02/16/2024 Non-HDL Cholesterol 59 mg/dL 02/24/2024 7:48 PM EDT [facility] Comment: Desirable: <130 mg/dL Above Desirable: 130-159 mg/dL Borderline High: 160-189 mg/dL High: 190-219 mg/dL Very High: > or = 220 mg/dL Blood VENOUS BLOOD SPECIMEN / Unknown 02/24/2024 1:31 PM EDT 02/24/2024 1:48 PM EDT [facility] - 02/24/2024 7:48 PM EDT It is important to review the results of your lipid panel with your health care provider. You can compare your lipid results to the ranges below and whether they are in the desirable range. These ranges are only meant to be used for people without known cardiac disease, history of stroke, or peripheral vascular disease (blockages in the leg arteries or diabetes). If you have one of these conditions, your desirable LDL-C (bad cholesterol) will likely be even lower. ?? ACC/AHA Guidelines (most recently Barb et al. [facility] 04/17/22): * For individuals with atherosclerotic cardiovascular disease (ASCVD) or LDL >=190 mg/dL, use a high-intensity statin(40-80 mg atorvastatin or 20-40 mg rosuvastatin with goal >=50% LDL reduction) * For individuals with diabetes, age 40-75 without ASCVD, moderate-intensity statin (goal 30-49% LDL reduction); consider high intensity statin for those with increased risk. * For adults without diabetes or ASCVD, aged 40-75 with LDL 70-189 mg/dL, estimate 10 year ASCVD risk with smartphrase ??.ASCVDRISK ??or Dynamed Decisions. If 10 year risk is 7.5%-19.9% (intermediate risk), consider moderate intensity statin based on risk enhancers and patient preference. Consider coronary artery calcium test (CT)if there is concern regarding the benefit of a statin. If ten year risk is >=20%, initiate high-intensity statin. * Evaluate for secondary causes of Triglycerides >500 mg/dL or LDL >190 mg/dL. * Lifestyle modification is a critical component of ASCVD risk reduction. * If not reaching LDL goals on maximally tolerated statin, consider ezetimibe and/or a PCSK9 inhibitor: ?* Target for primary prevention: LDL<100 ?* Target for those with ASCVD or diabetes and 10-year risk >=20%: LDL<70 ?* Target for those with very high risk ASCVD: LDL<55 (Very high risk being the presence of 2 or more of: recent acute coronary syndrome, past ? myocardial infarction, ischemic stroke, symptomatic peripheral artery disease) Gonzalez Barajas MD CHEMISTRY ORDERABL ES Performing Organization Address [facility] de Phone Number [facility] [place] [address] * APTT (02/24/2024 1:25 PM EDT) Partial Thromboplastin Time 29 25 - 37 sec 02/24/2024 2:01 PM EDT [facility] Comment: The PTT is NOT appropriate for heparin monitoring. Use the Anti-Xa level for heparin monitoring (HEP UFH) or LMWH monitoring (HEP LMW). A PTT less than 37 seconds generally indicates adequate hemostasis. Blood VENOUS BLOOD SPECIMEN / Unknown 02/24/2024 1:25 PM EDT 02/24/2024 1:37 PM EDT Fariba Ramirez MD HEMATOLOGY ORDERABLE S Performing Organization Address [facility] Phone Number [facility] [place] [address] * Prothrombin Time (02/24/2024 1:25 PM EDT) Only the most recent of2 resultswithin the time period is included. Prothrombin Time 12.3 9.4 - 12.5 sec 02/24/2024 2:01 PM EDT [facility] International Normalization Ratio 1.1 <=4.9 02/24/2024 2:01 PM EDT [facility] Comment: An INR < 2.0 indicates adequate procoagulant activity for hemostasis in most patients without underlying bleeding disorders, though the INR may not adequately reflect hemostatic capacity in patients with liver disease and synthetic impairment. The recommended target INR range for therapeutic anticoagulation is 2.0 - 3.0 for most applications, though lower and higher ranges may be appropriate depending on clinical circumstances. Blood VENOUS BLOOD SPECIMEN / Unknown 02/24/2024 1:25 PM EDT 02/24/2024 1:37 PM EDT Twila Cm APPRENTICE STYLIST HEMATOLOGY ORDERABL ES [facility] [place] [place] [address] * CTA Head/Neck Multiphase (Thrombectomy Protocol) (02/24/2024 1:10 PM EDT) WORKSTATION ID [id number] DH RAD Anatomical Region Laterality Modality Head Computed Tomogra phy Impressions 02/24/2024 2:49 PM EDT 1. ??Right BLOOD BANK WORKER occlusion (distal P2 segment). 2. ??Severe right ICA origin stenosis. 3. ??Moderate-severe right intradural vertebral artery stenosis. 4. ??No intracranial hemorrhage. Dr. Anderson discussed the result(s #1) with Dr. Adler ??on 02/24/2024 1:18 PM and verified that (s)he understood these results. Preliminary report signed by: Dhaval Anderson at 02/24/2024 1:43 PM I have personally reviewed the image(s) and the resident's interpretation and agree with the findings, Kingston Dukes MD at 02/24/2024 2:49 PM Thank you for letting us participate in the care of this patient. ??If you are a health care provider and have any questions regarding this report, please contact the number below. ??For patients who have questions please contact the health interior plant caretaker that requested your imaging first. ? Electronically signed by: Kingston Dukes MD, [facility] ([phone]), at 02/24/2024 2:49 PM Narrative 02/24/2024 2:49 PM EDT EXAMINATION: CT HEAD WO CONTRAST (GENERIC), CTA HEAD/NECK MULTIPHASE (THROMBECTOMY PROTOCOL) CLINICAL HISTORY: stroke alert TECHNIQUE: CT of head without intravenous contrast. Multiphase CTA of the carotids and [place] is performed after the administration of 65cc of Omnipaque 350 intravenous contrast. MIP and 3-D volumetric reconstructions were created. COMPARISON: None FINDINGS: CT Head: No acute intracranial hemorrhage or mass effect. Cheung-white matter differentiation is maintained. ??Normal caliber ventricles. Patent basal cisterns.. Imaged paranasal sinuses and mastoid air cells are clear. CTA [place]: Intradural segments of the internal carotid arteries are patent. ??Normal course and caliber of the middle and anterior cerebral arteries. Dominant left vertebral artery is normal caliber. Calcified atheroma moderate-severely narrow the intradural right vertebral artery. Normal basilar artery. Occluded mid-distal P2 segment of the right BLOOD BANK WORKER without distal reconstitution. No filling on delayed images. CTA Neck: Vascular findings: Normal three-vessel aortic arch configuration with patent vessel origins. There is mild calcific atherosclerotic plaque at the aortic arch. Mixed calcified and fibrofatty plaque results in greater than 70% stenosis of the proximal right internal carotid artery at the carotid bifurcation. The residual lumen diameter is 0.9 mm. The distal ICA measures 5.2 mm. Distal right cervical internal carotid artery returns to normal caliber. Mild stenosis at the left carotid bifurcation. Extracranial vertebral arteries demonstrate no more than mild stenosis. Nonvascular findings: Patchy opacities at the lung apices may be exaggerated by respiratory motion. Procedure Note Kingston Dukes MD - 02/24/2024 EXAMINATION: CT HEAD WO CONTRAST (GENERIC), CTA HEAD/NECK MULTIPHASE (THROMBECTOMY PROTOCOL) CLINICAL HISTORY: stroke alert TECHNIQUE: CT of head without intravenous contrast. Multiphase CTA of the carotidsand [place] is performed after the administration of 65cc ofOmnipaque 350 intravenous contrast. MIP and 3-D volumetric reconstructions werecreated. COMPARISON: None FINDINGS: CT Head: No acute intracranial hemorrhage or mass effect. Cheung-white matter differentiation is maintained. Normal caliber ventricles. Patent basal cisterns.. Imaged paranasal sinuses and mastoid air cells are clear. CTA [place]: Intradural segments of the internal carotid arteries are patent. Normalcourse and caliber of the middle and anterior cerebral arteries. Dominant left vertebral artery is normal caliber. Calcified atheroma moderate-severely narrow the intradural right vertebral artery. Normalbasilar artery. Occluded mid-distal P2 segment of the right BLOOD BANK WORKER without distalreconstitution. No filling on delayed images. CTA Neck: Vascular findings: Normal three-vessel aortic arch configuration with patent vessel origins.There is mild calcific atherosclerotic plaque at the aortic arch. Mixed calcified and fibrofatty plaque results in greater than 70% stenosisof the proximal right internal carotid artery at the carotid bifurcation.The residual lumen diameter is 0.9 mm. The distal ICA measures 5.2 mm. Distalright cervical internal carotid artery returns to normal caliber. Mild stenosisat the left carotid bifurcation. Extracranial vertebral arteries demonstrate no more than mild stenosis. Nonvascular findings: Patchy opacities at the lung apices may be exaggerated by respiratorymotion. IMPRESSION 1. Right BLOOD BANK WORKER occlusion (distal P2 segment). 2. Severe right ICA origin stenosis. 3. Moderate-severe right intradural vertebral artery stenosis. 4. No intracranial hemorrhage. Dr. Anderson discussed the result(s #1) with Dr. Adler on 02/24/2024 1:18PM and verified that (s)he understood these results. Preliminary report signed by: Dhaval Anderson at 02/24/2024 1:43 PM I have personally reviewed the image(s) and the resident's interpretationand agree with the findings, Kingston Dukes MD at 02/24/2024 2:49 PM Thank you for letting us participate in the care of this patient. If youare a health care provider and have any questions regarding this report,please contact the number below. For patients who have questions please contactthe health interior plant caretaker that requested your imaging first. Electronically signed by: Kingston Dukes MD, [facility]([phone]), at 02/24/2024 2:49 PM Twila Cm APPRENTICE STYLIST IMG CT ORDERABLES * CARDIAC CATHETERIZATION (02/24/2024 12:32 PM EDT) Anatomical Region Laterality Modality Other Narrative 02/25/2024 4:57 PM EDT ?[facility] ? Cardiac Catheterization/Intervention Report ? Patient Name: Ekaterina, Johnson R. ? Procedure Date: 02/24/2024 ? A #: [id number] ? Primary Physician: Zara Dc ? Case #: [id number] ? File Name: [id number] ? Catheterization Order Number: [id number] ? [facility] ? Final Report [place], [place] ? Patient Name: ? Johnson R. Ekaterina ? ID#: ?[id number] ? : ?1950 ? Procedure Date: ? February 24, 2024 ?Case #: ? [id number] ? Room: ? 2 ? Case Physician: ? Emad Mogadam, M.D. ? Start: ?11:37 ?Fellow: ? Mauricio Cyr Jr., M.D. ?Admission: ??02/23/2024 ? Referring Physician: ??Ariel Lynn M.D. ? Procedures: ?* Coronary Angiography ?* Left Heart Catheterization ?* Bypass Graft Study ? History ?Johnson Tobar is a 73 year old man. He has hypertension and a family ?history of coronary artery disease. The patient's smoking status is ?Never. He has hypercholesterolemia managed by diet and lipid therapy. The ?patient has diabetes managed by diet and oral medication. He has a prior ?history of coronary artery disease. The patient is status post a recent ?non-ST elevation myocardial infarction. He had remote coronary artery ?bypass surgery. The patient has a history of pulmonary hypertension. He ?has a history of CHF. The CHF is NYHA Functional Class II and is ?classified as Diastolic. He also has a history of a prior aortic valve ?replacement with a biological prosthesis. Prior to the initiation of this ?procedure, the patient was designated as ASA Class III. The [facility] clinical ?frailty scale is 4: Vulnerable. ? Diagnostic Tests: ?Prior Coronary Angiography: ? Prior coronary angiography was performed on 07/06/2023 and showed ? obstructive CAD. LV ejection fraction within 6 months is 55%. ?Electrocardiography: ? EKG was assessed by ECG. EKG was Abnormal. EKG showed T-wave ? inversions and other abnormality. ?Medications Prior to Procedure: ? Aspirin, Beta Estee, Calcium Channel Blocking Agent and Statin. ? Indications for Diagnostic Cath: ?The priority of the diagnostic procedure was Urgent. The indication for ?the slab installer visit is ACS greater than 24 hrs. Chest pain symptom ?assessment was: Typical Angina. ? Technique: ?A 6Fr sheath was inserted in the right femoral artery utilizing the ?Seldinger technique. The left coronary artery was injected utilizing a ?6Fr JL 4 catheter. A 6Fr JR 4 catheter was used to inject the right ?coronary artery. The left internal mammary was injected utilizing a 5Fr ?STANLEY catheter. A 6Fr JR 4 catheter was used to inject the saphenous vein ?graft. A total of 100cc of Omnipaque were opened, 55cc of Omnipaque were ?administered and 45cc of Omnipaque were wasted. Radiation: Fluoro time ?was 18.8 minutes, dose area product was 27.00 Gy/cm2 and air kerma was ?331 mGY. See the case log for additional details. ?The patient received the following medications prior to and during the ?procedure: ? Unfractionated Heparin and Clopidogrel. ? Hemodynamics: ?Left Heart Pressures ? Resting: ? Syst Diast ? EDP ?a ?v ? m ?Ao 116 ?? 61 ?83 ? Coronary Angiography: ?Dominance: Right ?Left Main ? There was mild diffuse (<=25% stenosis) disease of the entire vessel ? segment of the left main artery. ??The left main was large. ?Left Anterior Descending ? There was a 70% long segmental stenosis of the proximal segment of ? the left anterior descending artery (LAD) proximal to the insertion ? of a bypass graft. ??The LAD was large. ??Distal flow was normal and ? was via a bypass graft. ??The distal vessel was moderate in size. ?Left Circumflex ? There was an 85% calcified single discrete stenosis of the ostial ? segment of the left circumflex artery (LCX). ??The LCX was large. ? There was a single discrete total occlusion of the ostial segment of ? the first obtuse marginal branch (OM1) of the LCX proximal to the ? insertion of a bypass graft. ??The OM1 was large. ??Distal flow was ? decreased. ??The distal vessel was moderate in size. ? There was a 70% single discrete stenosis of the ostial segment of ? the second obtuse marginal branch (OM2) of the LCX. ??The OM2 was ? large. ?Right Coronary Artery ? There was mild diffuse (<=25% stenosis) disease of the entire vessel ? segment of the right coronary artery (RCA). ??The RCA was large. ??The ? mid segment of the RCA had a single discrete 50% stenosis. ??This ? lesion represented in-stent restenosis following a prior coronary ? stent insertion. ? Bypass Grafts: ?There was a total of two bypass grafts evaluated during this procedure. ?1. ?? Left internal mammary artery graft to the LAD ? There was a left internal mammary artery graft with a single ? anastomosis to the left anterior descending artery (LAD). ? There was no evidence of obstruction in this graft. Distal flow was ? normal. ?2. ?? Saphenous vein graft (Y-Type) to the OM1/Diagonal 1 ? There was a saphenous vein graft of the Y configuration. One limb of ? this graft had anastomoses to the first obtuse marginal branch (OM1) ? of the LCX and the first diagonal branch (Diagonal 1) of the LAD. ? The other limb of the graft had an anastomosis. ? There was a single discrete total occlusion of the ostial portion of ? the segment of this graft between the bifurcation of the Y graft and ? the OM1. The ostial portion of the segment of this graft between the ? OM1 and the Diagonal 1 had a single discrete total occlusion. ? Occluded at the ostium of the graft. ? Vascular Access: ?Vascular Access Angiogram: ? A selective angiogram at the right femoral artery revealed mild ? diffuse disease. ?Vascular Access Management: ? A Perclose was deployed at the right femoral artery access site. ? Conclusions: ?* Three vessel coronary artery disease (LAD, LCX and RCA) ?* Patent left internal mammary artery graft to the LAD ?* Obstructive disease of the saphenous vein graft (Y-Type) to the ?OM1/Diagonal 1 ? Complications/Events: ?While the patient was being cleaned up after the procedure, it was noted ?that his speech was less coherent, and his left side was weak. The pt had ?a right sided gaze preference, and was unable to make out objects in his ?left sided visual field. A stroke alert was called, and he was evaluated ?by neurology. ? Post Procedure Fluid Recommendations: ?IV fluid at 226 mL/hr for 4 hours for a total of 904 mL. These ?recommendations are made at the time of the procedure. Patient and ?provider preferences or a changing clinical situation may require ?modification of this regimen. ? Recommendations: ?Based upon the results of this procedure, it was recommended that the ?patient be managed with medical therapy. It was also recommended that ?coronary intervention be considered. ? Comments: ?The patient was found to have moderate grade ISR of the previously placed ?RCA stent. The [place] toe LAD with jump graft is patent. The SVG is ?ostially occluded. Given disease in the proximal LCx, we will perform a ?stress test, and if ischemic we can consider PCI. ?The attending physician was present for the entire procedure. ?Dr. Zara Dc M.D. was present during the moderate sedation ?intraservice time as documented by the sedation nurse. ??Case time = 00:49. ?Dr. Zara Dc M.D. performed the coronary angiography, left heart ?catheterization and bypass graft study. ? Zara Dc M.D. ? Report Finalized: 02/25/2024 ??16:49 ? Report Last Ammended: 03/06/2024 ??10:17 ? Procedure Note Zara Dc MD - 03/06/2024 [facility] Cardiac Catheterization/Intervention Report Patient Name: Johnson Tobar Procedure Date: 02/24/2024 A #: [id number] Primary Physician: Zara Dc Case #: [id number] File Name: [id number] Catheterization Order Number: [id number] [facility] FinalReport [place], [place] Patient Name: Johnson Tobar ID#:[id number] :1950 Procedure Date: February 24, 2024 Case #: [id number] Room: 2 Case Physician: Zara Dc M.D. Start: 11:37 Fellow: Mauricio Cyr Jr., M.D. Admission:02/23/2024 Referring Physician: Ariel Lynn M.D. Procedures: * Coronary Angiography * Left Heart Catheterization * Bypass Graft Study History Johnson Tobar is a 73 year old man. He has hypertension and afamily history of coronary artery disease. The patient's smoking status is Never. He has hypercholesterolemia managed by diet and lipidtherapy. The patient has diabetes managed by diet and oral medication. He has aprior history of coronary artery disease. The patient is status post arecent non-ST elevation myocardial infarction. He had remote coronaryartery bypass surgery. The patient has a history of pulmonary hypertension.He has a history of CHF. The CHF is NYHA Functional Class II and is classified as Diastolic. He also has a history of a prior aorticvalve replacement with a biological prosthesis. Prior to the initiation ofthis procedure, the patient was designated as ASA Class III. The C[facility]clinical frailty scale is 4: Vulnerable. Diagnostic Tests: Prior Coronary Angiography: Prior coronary angiography was performed on 07/06/2023 andshowed obstructive CAD. LV ejection fraction within 6 months is 55%. Electrocardiography: EKG was assessed by ECG. EKG was Abnormal. EKG showed T-wave inversions and other abnormality. Medications Prior to Procedure: Aspirin, Beta Estee, Calcium Channel Blocking Agent andStatin. Indications for Diagnostic Cath: The priority of the diagnostic procedure was Urgent. The indicationfor the slab installer visit is ACS greater than 24 hrs. Chest pain symptom assessment was: Typical Angina. Technique: A 6Fr sheath was inserted in the right femoral artery utilizing the Seldinger technique. The left coronary artery was injected utilizinga 6Fr JL 4 catheter. A 6Fr JR 4 catheter was used to inject the right coronary artery. The left internal mammary was injected utilizing a5Fr STANLEY catheter. A 6Fr JR 4 catheter was used to inject the saphenousvein graft. A total of 100cc of Omnipaque were opened, 55cc of Omnipaquewere administered and 45cc of Omnipaque were wasted. Radiation: Fluorotime was 18.8 minutes, dose area product was 27.00 Gy/cm2 and air kermawas 331 mGY. See the case log for additional details. The patient received the following medications prior to and duringthe procedure: Unfractionated Heparin and Clopidogrel. Hemodynamics: Left Heart Pressures Resting: Syst Diast EDP a v m Ao 116 61 83 Coronary Angiography: Dominance: Right Left Main There was mild diffuse (<=25% stenosis) disease of the entirevessel segment of the left main artery. The left main was large. Left Anterior Descending There was a 70% long segmental stenosis of the proximal segmentof the left anterior descending artery (LAD) proximal to theinsertion of a bypass graft. The LAD was large. Distal flow was normaland was via a bypass graft. The distal vessel was moderate insize. Left Circumflex There was an 85% calcified single discrete stenosis of theostial segment of the left circumflex artery (LCX). The LCX waslarge. There was a single discrete total occlusion of the ostialsegment of the first obtuse marginal branch (OM1) of the LCX proximal tothe insertion of a bypass graft. The OM1 was large. Distal flowwas decreased. The distal vessel was moderate in size. There was a 70% single discrete stenosis of the ostial segmentof the second obtuse marginal branch (OM2) of the LCX. The OM2was large. Right Coronary Artery There was mild diffuse (<=25% stenosis) disease of the entirevessel segment of the right coronary artery (RCA). The RCA was large.The mid segment of the RCA had a single discrete 50% stenosis.This lesion represented in-stent restenosis following a priorcoronary stent insertion. Bypass Grafts: There was a total of two bypass grafts evaluated during thisprocedure. 1. Left internal mammary artery graft to the LAD There was a left internal mammary artery graft with a single anastomosis to the left anterior descending artery (LAD). There was no evidence of obstruction in this graft. Distal flowwas normal. 2. Saphenous vein graft (Y-Type) to the OM1/Diagonal 1 There was a saphenous vein graft of the Y configuration. Onelimb of this graft had anastomoses to the first obtuse marginal branch(OM1) of the LCX and the first diagonal branch (Diagonal 1) of theLAD. The other limb of the graft had an anastomosis. There was a single discrete total occlusion of the ostialportion of the segment of this graft between the bifurcation of the Ygraft and the OM1. The ostial portion of the segment of this graftbetween the OM1 and the Diagonal 1 had a single discrete total occlusion. Occluded at the ostium of the graft. Vascular Access: Vascular Access Angiogram: A selective angiogram at the right femoral artery revealed mild diffuse disease. Vascular Access Management: A Perclose was deployed at the right femoral artery accesssite. Conclusions: * Three vessel coronary artery disease (LAD, LCX and RCA) * Patent left internal mammary artery graft to the LAD * Obstructive disease of the saphenous vein graft (Y-Type) to the OM1/Diagonal 1 Complications/Events: While the patient was being cleaned up after the procedure, it wasnoted that his speech was less coherent, and his left side was weak. Thept had a right sided gaze preference, and was unable to make out objects inhis left sided visual field. A stroke alert was called, and he wasevaluated by neurology. Post Procedure Fluid Recommendations: IV fluid at 226 mL/hr for 4 hours for a total of 904 mL. These recommendations are made at the time of the procedure. Patient and provider preferences or a changing clinical situation may require modification of this regimen. Recommendations: Based upon the results of this procedure, it was recommended thatthe patient be managed with medical therapy. It was also recommendedthat coronary intervention be considered. Comments: The patient was found to have moderate grade ISR of the previouslyplaced RCA stent. The MCKEON toe LAD with jump graft is patent. The SVG is ostially occluded. Given disease in the proximal LCx, we willperform a stress test, and if ischemic we can consider PCI. The attending physician was present for the entire procedure. Dr. Zara Dc M.D. was present during the moderate sedation intraservice time as documented by the sedation nurse. Case time =00:49. Dr. Zara Dc M.D. performed the coronary angiography, left heart catheterization and bypass graft study. Zara Dc M.D. Report Finalized: 02/25/2024 16:49 Report Last Ammended: 03/06/2024 10:17 Zara Dc MD CARDIAC CATH ORDERAB LES * ECHO COMPLETE W CONTRAST (02/24/2024 9:18 AM EDT) EF 55 [employer] Anatomical Region Laterality Modality Cardiac Other 02/24/2024 6:53 AM EDT Narrative 02/24/2024 9:58 AM EDT [address] [place] [address] ? Echocardiogram Report Name: JOHNSON TOBAR ?Study Date: 02/24/2024 06:53 AMBP: 131/77 mmHg ? Patient Location: L4WB^463^A : 1950 ? Height: 170 cm ? Account: [id number] Age: 73 yrs ? Weight: 75 kg Gender: Male ?BSA: 1.9 m2 Ordering Physician: BASSAM STEVENS Referring Physician: ARIEL LYNN Performed By: Kim Donahue RDCS Reason For Study: CAD Exam Location: [facility]. Interpretation Summary Technically difficult study despite the [...] evaluation with a DEBORAH if clinically indicated. Procedure Complete-49964. Image enhancement Optison was used for left ventricular opacification. Suboptimal quality. Left Ventricle Left ventricle is of normal size. Wall thickness is normal. Left ventricular ejection fraction is estimated visually at 45%. There are no segmental wall motion abnormalities. Right Ventricle Right ventricle is mildly dilated. Right ventricular function is probably normal. Left Atrium The left atrium is severely dilated. The interatrial septum is not well visualized. Right Atrium The right atrium is severely dilated. Aortic Valve There is a transcatheter valve in the aortic position. The date of insertion is not available at this time. There is a 23mm mm aortic prosthesis. The peak gradient across the prosthesis is 10.3 mmHg . The mean gradient across the prosthesis is 4.2 mmHg . Mitral Valve The mitral valve leaflets are calcified. The mitral valve leaflets are thickened. There is mitral annular calcification. The estimated mean gradient across the mitral valve is 9.0 mmHg . There is moderate mitral stenosis. There is mild to moderate mitral regurgitation. Tricuspid Valve The tricuspid valve is structurally and functionally normal. There is no tricuspid stenosis. There is moderate tricuspid regurgitation. Pulmonic Valve The pulmonic valve is not well visualized. Great Arteries The aortic root is of normal size. No abnormalities are identified. The ascending aorta is not well visualized. Venous Inferior vena cava is normal in size. Inferior vena cava collapse greater than 50% with respiration. Pericardium/Pleural There is no pericardial effusion. Hemodynamics The estimated right atrial pressure is 8mmHg. The peak right ventricular systolic pressure is 45 mmHg. Unable to assess diastolic function. ? 2D Measurements ? Volumes ?IVSd: 1.0 cm ? LAV(MOD-bp) Indexed: ?LVIDd: 4.3 cm ?LVIDs: 2.9 cm ?48.8 ml/m2 ?LVPWd: 1.0 cm ?ESV(MOD-bp) Indexed: ? 23.5 ml/m2 ?RWT: 0.48 {ratio} ?SV(LVOT): 58.8 ml ?LV mass(C)d: 151.4 grams ? CO(LVOT): 4.1 l/min ?LV mass(C)dI: 81.3 grams/m2 ?Ao root diam: 2.7 cm ? SI(LVOT): 31.5 ml/m2 ?Ao root diam index: 1.4 ?CI(LVOT): 2.2 l/min/m2 ?LVOT diam: 1.9 cm ?TAPSE_phl: 1.1 cm Doppler LV V1 VTI: 21.0 cm Ao V2 VTI: 29.0 cm Ao Max: 159.3 cm/sec Ao valve max: 10.3 mmHg Ao valve mean: 4.2 mmHg MV E max angel: 205.3 cm/sec MV A max angel: 183.4 cm/sec MV E/A: 1.1 MV dec time: 0.36 sec MV mean P.0 mmHg Lat Peak E' Angel: 9.2 cm/sec E/e' (lat): 22.2 Med Peak E' Angel: 5.1 cm/sec E/e' (med): 40.1 E/e' Average: 31.2 TOBI(I,D): 2.0 cm2 Dimensionless index Aov: 0.72 TR max angel: 318.4 cm/sec I ?WMSI = 1.00 ? % Normal = 100 ?Segments ??Size X - Cannot ?2 - ?4 - ?1-2 ? small Interpret ?1 - Normal ?? Hypokinetic 3 - Akinetic Dyskinetic ?? 3-5 ? moderate 5 - ? 6-14 ?large Aneurysmal ?15-16 ?? diffuse Procedure Note Darron Manzanares MD - 02/24/2024 [address] [place] [address] Echocardiogram Report Name: JOHNSON TOBAR Study Date: 406:53 AMBP: 131/77 mmHg Patient Location:[facility]^463^A : 1950 Height: 170 cm Account: [id number] Age: 73 yrs Weight: 75 kg Gender: Male BSA: 1.9 m2 Ordering Physician: BASSAM STEVENS Referring Physician: ARIEL LYNN Performed By: Kim Donahue RDCS Reason For Study: CAD Exam Location: [facility]. Interpretation Summary Technically difficult study despite the use of echo contrast. The LV isnormal in size with low normal systolic function. The estimated LVEF is 55% byvisual estimate with no regional wall motion abnormalities. The RV is mildly dilated with probably normal systolic function. Severe biatrial enlargement. There is a bioprosthesis in the aortic position (SAVR, 23 mm Inspiris bioprosthesis, inserted 06/13/2020). The peak/mean gradient is estimatedat 10/4 mmHg. No significant regurgitation. There is heavy mitral annular calcification with encroachment into theleaflets. There is mixed mitral stenosis/regurgitation. There is moderate calcificmitral stenosis with a mean gradient estimated at 9 mmHg (HR 74 bpm. NSR) andmoderate mitral regurgitation. There is moderate tricuspid regurgitation. The peak right ventricularsystolic pressure is 45 mmHg. Other details as below. IMPRESSION: Normal aortic valve bioprosthesis. There is mixed moderatecalcific MS/MR. As compared to the prior echo report from 07/21/2020, the meangradient across the MV has increased from 3 mmHg to 9 mmHg. Consider furtherevaluation with a DEBORAH if clinically indicated. Procedure Complete-[id number]. Image enhancement Optison was used for left ventricular opacification. Suboptimal quality. Left Ventricle Left ventricle is of normal size. Wall thickness is normal. Leftventricular ejection fraction is estimated visually at 45%. There are no segmentalwall motion abnormalities. Right Ventricle Right ventricle is mildly dilated. Right ventricular function is probablynormal. Left Atrium The left atrium is severely dilated. The interatrial septum is not well visualized. Right Atrium The right atrium is severely dilated. Aortic Valve There is a transcatheter valve in the aortic position. The date ofinsertion is not available at this time. There is a 23mm mm aortic prosthesis. Thepeak gradient across the prosthesis is 10.3 mmHg . The mean gradient acrossthe prosthesis is 4.2 mmHg . Mitral Valve The mitral valve leaflets are calcified. The mitral valve leaflets arethickened. There is mitral annular calcification. The estimated mean gradient acrossthe mitral valve is 9.0 mmHg . There is moderate mitral stenosis. There ismild to moderate mitral regurgitation. Tricuspid Valve The tricuspid valve is structurally and functionally normal. There is notricuspid stenosis. There is moderate tricuspid regurgitation. Pulmonic Valve The pulmonic valve is not well visualized. Great Arteries The aortic root is of normal size. No abnormalities are identified. Theascending aorta is not well visualized. Venous Inferior vena cava is normal in size. Inferior vena cava collapse greaterthan 50% with respiration. Pericardium/Pleural There is no pericardial effusion. Hemodynamics The estimated right atrial pressure is 8mmHg. The peak right ventricularsystolic pressure is 45 mmHg. Unable to assess diastolic function. 2D Measurements Volumes IVSd: 1.0 cm LAV(MOD-bp)Indexed: LVIDd: 4.3 cm LVIDs: 2.9 cm 48.8 ml/m2 LVPWd: 1.0 cm ESV(MOD-bp)Indexed: 23.5 ml/m2 RWT: 0.48 {ratio} SV(LVOT): 58.8ml LV mass(C)d: 151.4 grams CO(LVOT): 4.1l/min LV mass(C)dI: 81.3 grams/m2 Ao root diam: 2.7 cm SI(LVOT): 31.5ml/m2 Ao root diam index: 1.4 CI(LVOT): 2.2l/min/m2 LVOT diam: 1.9 cm TAPSE_phl: 1.1 cm Doppler LV V1 VTI: 21.0 cm Ao V2 VTI: 29.0 cm Ao Max: 159.3 cm/sec Ao valve max: 10.3 mmHg Ao valve mean: 4.2 mmHg MV E max angel: 205.3 cm/sec MV A max angel: 183.4 cm/sec MV E/A: 1.1 MV dec time: 0.36 sec MV mean P.0 mmHg Lat Peak E' Angel: 9.2 cm/sec E/e' (lat): 22.2 Med Peak E' Angel: 5.1 cm/sec E/e' (med): 40.1 E/e' Average: 31.2 TOBI(I,D): 2.0 cm2 Dimensionless index Aov: 0.72 TR max angel: 318.4 cm/sec I WMSI = 1.00 % Normal = 100 SegmentsSize X - Cannot 2 - 4 - 1-2small Interpret 1 - Normal Hypokinetic 3 - Akinetic Dyskinetic 3-5moderate 5 - 6-14large Aneurysmal 15-16diffuse Bassam Stevens MD ECHO ORDERABLES * Heparin (unfractionated) Level (02/24/2024 3:02 AM EDT) UF Heparin 0.23 IU/mL 02/24/2024 3:25 AM EDT [facility] Comment: Heparin (anti-Xa) levels should be determined in a plasma sample that has been drawn 6 hours after a dose change to approximate steady-state for continuous heparin infusions. Indication specific Heparin (anti-Xa) levels based on order set selection: Acute DVT or PE prevention: ? 0.3-0.7 IU/mL Thrombosis Prevention (e.g. atrial fibrillation, clara-procedural bridging, mechanical valves): ? 0.3-0.7 IU/mL Acute Coronary Syndrome: ? 0.3-0.7 IU/mL Stroke Indications: ? 0.3-0.5 IU/mL Ultra-low intensity (select indications in cardiac surgery): ? 0.1-0.3 IU/mL Blood VENOUS BLOOD SPECIMEN / Unknown IP Care Team Draw / Unknown 02/24/2024 3:02 AM EDT 02/24/2024 3:07 AM EDT Bassam Stevens MD HEMATOLOGY ORDERABLE S Performing Organization Address City/[facility]/ZIP Co de Phone Number [facility] [place] [place] [address] * (ABNORMAL) Hemoglobin A1c (02/24/2024 3:02 AM EDT) Hemoglobin A1c 8.3(H) 4.3 - 5.6 % 02/24/2024 10:42 AM EDT [facility] Comment: Per ADA guidelines, without clear symptoms of hyperglycemia or a random plasma glucose >199 mg/dL, a single abnormal A1c measurement cannot be used to diagnose diabetes mellitus. The diagnosis must be confirmed by either 1) a concurrent abnormal fasting plasma glucose or impaired response to oral glucose tolerance testing, or 2) an additional abnormal A1c, impaired fasting plasma glucose, or impaired response to oral glucose tolerance testing on a different day. A1c results obtained on patients with altered red blood cell turnover may not be premium service representative of glycemic control. Reference Interval: 4.3 - 5.6% 5.7 - 6.4%: Consistent with prediabetes >=6.5%: Consistent with diagnosis of diabetes mellitus Estimated Average Glucose 02/24/2024 10:42 AM EDT [facility] Comment:Not Calculated. Blood VENOUS BLOOD SPECIMEN / Unknown IP Care Team Draw / Unknown 02/24/2024 3:02 AM EDT 02/24/2024 3:07 AM EDT Narrative [facility] - 02/24/2024 10:42 AM EDT Estimated average glucose (eAG) is calculated from the equation described in: Johnathan BOO, Cira J, Mak R, et al. ??Translating the A1C assay into estimated average glucose values. ??Diabetes Care 2008:31(8):4042-6809. Additional resources are available on the ADA website (diabetes.org). Fariba Ramirez MD CHEMISTRY ORDERABLES Performing Organization Address City/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 Advance Directives and Living Will 03/19/2024 11:51 AM [place] ADVANCE DIRECTIVE * Attempt Cardiopulmonary Resuscitation - Inpatient (Latest Code Status on File) Date Activated Date Inactivated Comments 03/17/2024 11:13 PM 03/21/2024 5:46 PM Question Answer Comments Code Status decision made by: Patient Content of discussion: full code * Attempt Cardiopulmonary Resuscitation - Inpatient Date Activated Date Inactivated Comments 02/24/2024 12:31 AM 03/02/2024 4:17 PM Question Answer Comments Code Status decision made by: Patient Content of discussion: Patient wishes to be full code * Attempt Cardiopulmonary Resuscitation - Inpatient Date Activated Date Inactivated Comments 06/26/2023 1:00 PM 06/27/2023 11:37 AM Question Answer Comments Code Status decision made by: Patient * Attempt Cardiopulmonary Resuscitation - Inpatient Date Activated Date Inactivated Comments 06/26/2023 8:03 AM 06/26/2023 1:00 PM Question Answer Comments Code Status decision made by: Patient * Attempt Cardiopulmonary Resuscitation - Inpatient Date Activated Date Inactivated Comments 05/17/2023 1:35 PM 05/17/2023 8:58 PM Question Answer Comments Code Status decision made by: Patient Care Teams Lead Programmer Analyst Relationship Specialty Start Date End Date Tamia Tsai PA [address] [place] [address] PCP - General Family Medicine 02/18/24
--- OUTSIDE RECORDS SUMMARY | 2024-03-26 15:51 | XMS_ITS | Encounter Summary ---
Author Organization Formerly [facility] [place] [address] Care Team Providers Care Salesperson Women'S Dresses Name Role Phone Tamia Tsai Primary Care Provider [phone] Reason for Referral * Consultation (Urgent) - Closed Specialty Diagnoses / Procedures Referred By Luca beltran Referred To Contact Cardiology Diagnoses NSTEMI (non-ST elevated myocardial infarction) S/P D/C - NSTEMI w/ diagnostic LHC on 02/24/2024, patent MCKEON however high-grade lesion of left circumflex. Jerome Amezquita PA [facility] [place] [address] [facility] Cardiology [address] [place] [id number] Referral ID Status Reason Start Date Expiration Date V isits Requested Visits Authorized [id number] Closed Consult, Test & Treat 03/02/2024 03/02/2025 1 1 Reason for Visit * Auth/Cert (Routine) Specialty Diagnoses / Procedures Referred By Luca beltran Referred To Contact Diagnoses NSTEMI (non-ST elevated myocardial infarction) NSTEMI Procedures ER BRAXTONI Mauricio Jean MD [facility] [place] [address] [facility] Referral ID Status Reason Start Date Expiration Date Visits Re quested Visits Authorized [id number] 1 1 Encounter Details Date Type Department Care Team (Latest Contact Info) Description 02/23/2024 8:38 PM EDT - 03/02/2024 2:11 PM EDT Hospital Encounter Neurosciences and ENT Unit Level [address] [place] [address] Kal Puentes MD [facility] [place] [address] Fariba Ramirez MD [facility] [place] [address] Gonzalez Barajas MD [facility] [place] [address] Arti Griffin MD [facility] [place] [address] Kd Huggins MD [facility] [place] [address] Mauricio Jean MD [facility] [place] [address] Coronary artery disease, unspecified vessel or lesion type, unspecified whether angina present, unspecified whether [place] or transplanted heart; Internal carotid artery stenosis, unspecified laterality; NSTEMI (non-ST elevated myocardial infarction) Discharge Disposition: Rehab Center in a Facility Social History Tobacco Use Types Packs/Day Years Used Date Smoking Tobacco: Never Smokeless Tobacco: Never Alcohol Use Standard Drinks/Week Comments Not Currently 0 (1 standard drink = 0.6 oz pur e alcohol) [facility] Utilities Answer Date Recorded In the past 12 months has [employer], oil, or water [employer] threatened to shut off services in your [...] any time in the past 12 m [facility], were you homeless or living in a assisted (including now)? No 02/24/2024 DH IPV Inpatient Questions Answer Date Recorded [...] Sign Reading Time Taken Comments Blood Pressure 119/68 03/02/2024 7:20 AM EDT Pulse 73 03/02/2024 4:00 AM EDT Temperature 36.9 ??C (98.4 ??F) 03/02/2024 7:20 AM ED T Respiratory Rate 16 03/02/2024 7:20 AM EDT Oxygen Saturation 97% 03/02/2024 7:20 AM EDT Inhaled Oxygen Concentration - - Weight 73 kg (160 lb 15 oz) 02/24/2024 1:15 PM E DT Height 170.2 cm (5' 7) 02/23/2024 8:40 PM EDT Body Mass Index 25.21 02/23/2024 8:40 PM EDT documented in this encounter Discharge Summaries * Jerome Amezquita PA - 03/02/2024 12:36 PM EDT Discharge Summary Patient Name: Johnson Tobar Patient Age: 73 y.o. Language: Macanese Admit date: 02/23/2024 Discharge date and time: 03/02/2412:08 PM Attending Physician: Kd Huggins MD Discharge Physician: Kd Huggins MD Follow-up Recommendations for Providers: -Continue Asprin 81mg daily and Plavix 75mg daily per Cardiology recommendations -Continue Rosuvastatin 40mg daily and Zetia 10mg daily -Completed course of Keflex 500mg QID on 03/01 for suspected cellulitis of left foot -Diet on discharge: Daily Healthy Menu Choices/Cardiac diet ([facility]-Diet) 60/60/75 CHO counting level2 -monitor for resolution of hyponatremia -Goal blood pressure normotension -A1C 8.3, follow-up with PCP to consider outpatient insulin regimen -Follow up with Neurology requested day of discharge -outpatient cardiology follow-up, referral placed at discharge Modifiable Risk Factors in Secondary Stroke Prevention Risk Factor Treatment Goals Hypertension Neurologically stable patients with cerebrovascular disease benefit from a BP goal of <130/80 mm?Hg Dyslipidemia Atherosclerotic stroke or TIA: low-density lipoprotein (LDL) cholesterol level <70 mg/dl or 50% reduction in LDL cholesterol level from baseline Nonatherosclerotic stroke or TIA: per National Cholesterol Education Program (NCEP) Adult TreatmentPanel III (ATP-III) goals Diabetes Mellitus HgA1c level <7% Cigarette Smoking Complete cessation Alcohol Consumption Men: two or fewer drinks per day Non woman: one or fewer drinks per day Physical Activity At least 30 minutes of moderate intensity physical exercise 1- 3 times per week Diet Low-fat, low-sodium, and Mediterranean or Dietary Approaches to Stop Hypertension diets (diabetic diet when applicable) Obesity Goal body mass index of 18.5-25 kg/m2 Inpatient Provider Contact Information: For questions regarding this document or issues related to this hospitalization on the Neurology Service, please contact . Discharge Diagnoses: Active Hospital Problems Diagnosis R QUANTOMETER OPERATOR occlusion and infarction associated with cardiac catheterization, s/p tPA Hypo-osmolar hyponatremia NSTEMI (non-ST elevated myocardial infarction) Past medical History: Past Medical History: Diagnosis Date Gastroesophageal reflux controlled with medication Heart valve disease High blood pressure treated with medication Myocardial infarction Peptic ulcer disease >15 yrs ago S/P AVR (aortic valve replacement) 06/13/2020 Type 2 diabetes mellitus 2014 Type 2 diabetes mellitus, without long-term current use of insulin 06/15/2020 Active Non Hospital Problems: Active Non-Hospital Problems Diagnosis Type 2 diabetes mellitus, without long-term current use of insulin S/P CABG (coronary artery bypass graft) S/P AVR (aortic valve replacement) CAD (coronary artery disease) Aortic valve stenosis Type 2 diabetes mellitus ASCVD (arteriosclerotic cardiovascular disease) HTN (hypertension) DJD (degenerative joint disease) Elevated cholesterol Aortic stenosis History of Presentation: HPI: 73 yo male with pmhx of AsCVD s/p CABG x 3 (MCKEON --> LAD, SVG --> OM1 --> D1) and RCAPCI (06/2023), severe s/p AVR (05/2020), DM2, HTN, HLD who initially presented on 02/22 with chest pressure and light-headedness concerning for ACS. Pt was admitted to Cardiology service and initiated on heparin gtt. Earlier today, he was taken to the asset availability leader, though no intervention required. In recovery, pt started to have slurred speech and left hemiparesis, Stroke Alert called. NIHSS 16 (LOC 1, Gaze 1, VF 1, Face 1, LUE 3, LLE 3, Sensory 2, Dysarthria 1, Language 1). CT/CTA showed R QUANTOMETER OPERATOR occlusion and severe R ICA stenosis; decision made to proceed with thrombolysis after discussion with Interventional Cardiology team and pt now s/p tPA at 1420. Admitted to NCCU for further management. ROS: Gen: denies fever, chills, fatigue, malaise, weight loss Eyes: denies blurring, diplopia, vision loss, photophobia CV: denies chest pain, palpitations, lightheadedness, syncope, dyspnea on exertion Resp: denies SOB, cough GI: denies nausea, vomiting, diarrhea, constipation, abdominal pain Neuro: as per HPI; denies weakness, JC, paresthesias, seizures, tremors, vertigo, balance problems Admission NIH Stroke Scale: NIH Stroke Scale Date 02/24/24 NIH Stroke Scale Time 1250 Level of Consciousness 0 LOC Questions 1 LOC Commands 1 Best Gaze 1 Vision 1 Facial Palsy 1 Motor Arm, Left 3 Motor Arm, Right 0 Motor Leg, Left 3 Motor Leg, Right 1 Limb Ataxia 0 Sensory 0 Best Language 2 Dysarthria 0 Extinction and Inattention: 0 NIH Total Score 14 Hospital Course: Johnson Tobar is a 73 y.o. male who was admitted to the neurology service for further evaluation of RIGHT gaze preference, dysarthria, left tongue deviation, and LEFT hemibody weakness s/p cardiac catherization. #RIGHT temporal lobe and thalamus infarction Neurological examination on admission was pertinent for RIGHT gaze preference, dysarthria, left tongue deviation, and LEFT hemibody weakness. Patient was monitored with frequent checks of vitals and neurological status. Telemetry monitoring showed no occult arhythmia. Permissive HTN was allowed, with labetalol administered prn for SBP > goal parameters. MRI demonstrated RIGHT temporal lobe and adjacent thalamus infarctions. Vascular imaging showed Right QUANTOMETER OPERATOR occlusion (distal P2 segment), severe right ICA stenosis, and Moderate-severe right intradural vertebral artery stenosis. TTErevealed LVEF 55%, no WMAs, severely dilated LA. See detailed reports as below. Most likely etiology of stroke was due to clara-procedural from atheroembolism. #NSTEMI on 02/23/2024 #s/p diagnostic LHC on 02/24/2024, patent MCKEON however high-grade lesion of left circumflex. The patient suspected to have NSTEMI with elevated troponin x 3. He was anticoagulated with IV heparin. Given the presentation (chest pressure responding to nitro similar to prior CAD chest pressure,patient's risk factors (prior CAD s/p CABG and PCI x2, age, T2DM, HTN, HLD, ECG changes (ST depression V4-6, though somewhat similar to previous ECG in jun 2023), positive biomarkers. s/p cath with patent MCKEON and stenosis of Left Circumflex, recommended to get a stress test to look for ischemia ,if positive will need intervention.There were no interventions done during catherization. He will need outpatient cardiology follow-up Patient was evaluated by rehabilitation services and deemed appropriate for acute rehab. Operations & Procedures: Cardiac Catherization Consultations: 1. PT/OT/SL 2. Cardiology Diagnostic Tests & Neuroimaging: Study Results ECG Component Ref Range & Units 3 d ago 8 mo ago Ventricular rate BPM 84 76 Atrial Rate BPM 84 76 P-R Interval ms 124 136 QRS Duration ms 80 82 Q-T Interval ms 372 408 QTC Calculated (Bezet) ms 439 459 Calculated P [place] degrees 59 35 Calculated R [place] degrees -8 -2 Calculated T [place] degrees 0 -43 INTERPRETATION Normal sinus rhythm Possible Left atrial enlargement Inferior infarct (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-2020) Borderline ST depression Lateral leads Abnormal ECG When compared with ECG of 26-JUN-2023 13:17, No significant change was found I personally reviewed the tracing and edited the fellows interpretation Confirmed by fellow MD Sunshine, Carl ([id number]) on 02/24/2024 10:56:50 AM Confirmed by MD Hollingsworth Jose ([id number]) on 02/25/2024 5:56:17 AM Normal sinus rhythm Inferior infarct (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-2020) Abnormal ECG When compared with ECG of 17-MAY-2023 12:00, Premature atrial complexes are no longer Present Serial changes of Inferior infarct Present Confirmed by MD Jessica, Ebenezer ([id number]) on 06/27/2023 7:49:05 AM CXR XR Chest One View Result Date: 02/28/2024 No acute cardiopulmonary process. Specifically no evidence of pneumonia or pneumonitis. Thank you for letting us participate in the care of this patient. If you are a health care provider and have any questions regarding this report, please contact the number below. For patients who have questions please contact the health career services director that requested your imaging first. Electronically signedby: Theo Garcia MD, [facility] ([phone]), at 02/28/2024 12:[address] Head wo Contrast (Generic) Result Date: 02/24/2024 1. 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 2. Severe right ICA origin stenosis. 3. Moderate-severeright intradural vertebral artery stenosis. 4. No intracranial hemorrhage. Dr. Anderson discussed theresult(s #1) with Dr. Adler on 02/24/2024 1:18 PM and verified that (s)he understood these results. Preliminary report signed by: Dhaval Anderson at 02/24/2024 1:43 PM I have personally reviewed the stanley ge(s) and the resident's interpretation and agree with the findings, Kingston Dukes MD at 02/24/2024 2:49 PM Thank you for letting us participate in the care of this patient. If you are a health careprovider and have any questions regarding this report, please contact the number below. For patients who have questions please contact the health career services director that requested your imaging first. Head and Neck No results found. MRI BRAIN MRI Brain wo Contrast Result Date: 02/25/2024 Late acute posterior circulation infarct involving the posterior right temporal lobe and adjacent thalamus. Thank you for letting us participate in the care of this patient. If you are a health care provider and have any questions regarding this report, please contact the number below. For patientswho have questions please contact the health career services director that requested your imaging first. Carotids/[place] No results found. TTE Interpretation Summary Technically difficult study despite the [...] with a DEBORAH if clinically indicated. Procedure Complete-60177. Image enhancement Optison was used for left [...] respiration. Pericardium/Pleural There is no pericardial effusion. Cardiac Catherization Recommendations: Based upon the results of this procedure, it was recommended that the patient be managed with medical therapy. It was also recommended that coronary intervention be considered. Carotid Duplex Interpretation: RIGHT: A thin layer of circumferential [...] normal antegrade Doppler waveforms and velocities bilaterally. Labs: Lipid Panel Lab Results Component Value Date CHLPL 91 02/24/2024 HDL 32 02/24/2024 TRIG 122 02/24/2024 LDLCHOL 37 02/24/2024 Lab Results Component Value Date HA1C 8.3 (H) 02/24/2024 Last 3 wbc, hgb, hct plt Recent Labs 03/02/24 0558 02/28/24 0533 02/27/24 0630 WBC 5.41 5.45 5.78 HGB 10.0* 10.4* 10.5* HCT 28.9* 31.0* 30.5* PLATELET 253 210 179 Last 3 Lytes Recent Labs 03/02/24 0558 03/01/24 0536 02/29/24 0552 NA 127* 128* 127* K 4.4 4.5 4.1 CL 96* 95* 93* CO2 19* 19* 20* BUN 12 13 15 CREATININE 0.96 0.88 0.95 Last 3 LFTs No results for input(s): AST, ALT, ALKPHOS, BILITOT, BILIDIR in the last 7068hours. Last Ca, Mg, Phos Recent Labs 03/02/24 0558 02/29/24 0552 02/28/24 0533 CALCIUM 9.5 < > 8.9 MAGNESIUM -- -- 0.67* < > = values in this interval not displayed. Last 3 TFT Recent Labs 02/24/24 1331 TSH 2.07 Last 3 Lipids Recent Labs 02/24/24 1331 CHLPL 91 HDL 32 LDLCHOL 37 TRIG 122 Pending Studies and Lab Data: No current labs PT Eval: AM-PAC Mobility 6 Click Completed?: Yes Turning from your back to your side while in a flat bed w/o using handrails?: 3 - A Little Standing up from a chair using your arms (e.g. wheelchair, or bedside commode)?: 3 - A Little Moving from lying on your back to sitting on the side of a flat bed w/o using bedrails?: 3 - A Little Moving to and from a bed to a chair (including a wheelchair): 3 - A Little To walk in hospital room?: 3 - A Little Climbing 3-5 steps with a railing?*: 3 - A Little Anticipated Discharge Disposition (PT): acute rehabilitation facility OT Eval: How much help from another person does the patient currently need putting on and taking off regularlower body clothing?: 3 - A Little How much help from another person does the patient currently need with bathing (including washing, rinsing, drying)?: 3 - A Little How much help from another person does the patient currently need with toileting, which includes using toilet, bedpan or urinal?: 3 - A Little How much help from another person does the patient currently need putting on and taking off regularupper body clothing?: 3 - A Little How much help from another person does the patient currently need taking care of personal grooming such as brushing teeth?: 3 - A Little How much help from another person does the patient currently need eathing meals?: 3 - A Little Anticipated Discharge Disposition (OT): acute rehabilitation facility POLE INSPECTOR: Diagnosis: Baseline speech and swallow function Vital Signs at Discharge: BP: 119/68, Heart Rate: 73, Temp: 36.9 ??C (98.4 ??F), Resp: 16, BMI (Calculated): 26.48 Height: 170.2 cm (5' 7) (02/23/242039) Weight: 73 kg (160 lb 15 oz) (02/24/24 1315) Physical Exam at Discharge: GEN- Awake and alert. Able to state age and month. Able to follow simple commands. Mild dysarthria CN- mild RIGHT gaze preference, left visual neglect, no clear facial asymmetry recognized MOTOR- RUE/RLE: 5/ LUE: mild pronator drift LLE: mild drift SENSATION - +extinction to BSS CEREBELLUM - FTN intact on RUE, LT-sided off-target on FTN, HTS intact CV/PULM - normal WOB EXTREMITIES - right foot cellulitis with minimal erythema, warmth, edema Discharge NIH Stroke Scale NIH Stroke Scale Date 03/02/24 NIH Stroke Scale Time 0728 Level of Consciousness 0 LOC Questions 0 LOC Commands 0 Best Gaze 0 Vision 0 Facial Palsy 1 Motor Arm, Left 1 Motor Arm, Right 0 Motor Leg, Left 1 Motor Leg, Right 0 Limb Ataxia 0 Sensory 1 Best Language 1 Dysarthria 1 Extinction and Inattention: 1 NIH Total Score 7 Discharge to: Rehab Updated Allergies/ADRs: Allergies Allergen Reactions Lisinopril Other (See Comments) Immunizations Given this Hospitalization: Immunization History Administered Date(s) Administered Covid-19 (Pfizer), [place] Cap Bivalent 30mcg (12Yrs+) 05/02/2022 Moderna Covid-19 Monovalent 12Yr+ (Account Resolution Expert 100mcg) 09/15/2020, 10/13/2020 Discharge Medications: Your Medications New Medications Dose Details ezetimibe 10 mg tablet Commonly known as: Zetia Take 1 tablet by mouth daily. Start taking on: March 03, 2024 10 mg Refills: 0 pantopraz[address] EC [address] tablet Commonly known as: Protonix Take 1 tablet by mouth daily. Start taking on: March 03, 2024 40 mg Refills: 0 sodium chloride 1 gram Tablet Take 1 tablet by mouth 3 times daily. 1 g Refills: 0 Continued medications with new dosing Dose Details acetaminophen 325 mg tablet Commonly known as: Tylenol Take 2 tablets by mouth every 4 hours as needed. What changed: medication strength how much to take when to take this reasons to take this 650 mg Quantity: 30 tablet Refills: 1 Continued medications, unchanged Dose Details amLODIPine 5 mg tablet Commonly known as: Norvasc Take 5 mg by mouth 2 times daily. 5 mg Refills: 0 amoxicillin 500 mg capsule Commonly known as: Amoxil Take 4 capsules by mouth as needed. Take 4 tablets, 2000mg, 1 hour before dental procedures. 2,000 mg Refills: 0 aspirin EC 81 mg EC (DR) tablet Take 81 mg by mouth daily. 81 mg Refills: 0 blood sugar diagnostic strips Strip Twice daily. One touch verio flex ICD 10 E11.9 Quantity: 50 each Refills: 0 clopidogreL 75 mg tablet Commonly known as: Plavix Take 1 tablet by mouth daily. 75 mg Quantity: 90 tablet Refills: 3 Entresto 24-26 mg tablet Take by mouth 2 times daily. Generic drug: sacubitriL-valsartan Refills: 0 glipiZIDE XL 10 mg ER 24 hr tablet Commonly known as: Glucotrol XL TAKE 1 TABLET BY MOUTH ONCE DAILY Refills: 0 metFORMIN 1,000 mg tablet Commonly known as: Glucophage TAKE ONE TABLET BY MOUTH TWICE A DAY Refills: 0 metoprolol tartrate 100 mg tablet Commonly known as: Lopressor Take 1 tablet by mouth 2 times daily. 100 mg Quantity: 60 tablet Refills: 1 multivitamin Tablet Commonly known as: THERAGRAN Take 1 tablet by mouth daily. 1 tablet Refills: 0 Ozempic 0.25 mg or 0.5 mg (2 mg/3 mL) Pen Injector Inject 0.5 mg subcutaneously. Generic drug: semaglutide 0.5 mg Refills: 0 rosuvastatin 40 mg tablet Commonly known as: Crestor TAKE ONE TABLET BY MOUTH EVERY DAY Refills: 0 STOPPED Medications dextromethorphan-guaiFENesin 10-100 mg/5 mL Syrup Commonly known as: Robitussin Jardiance 25 mg tablet Generic drug: empagliflozin omeprazole [address] capsule Commonly known as: PriLOSEC SECONDARY STROKE PREVENTION: Preventative measure Antithrombotic Therapy Administered within 2 days of admission?: Yes Anticoagulation Therapy Prescribed at Discharge?: No Reason not given (anticoagulant):: Therapy not indicated Was statin medication prescribed at discharge?: Yes Was Guideline Recommended Statin Dose Prescribed at Discharge?: Yes Has patient had a cigarette within the last 365 days?: No Education: Patient/caregiver received written stroke discharge instructions/information?Yes The patient/caregiver accepted education on stroke warning signs and symptoms, personal modifiable stroke risk factors, activation of emergency medical systems for stroke, medications prescribed at discharge for stroke, and education on stroke follow-up. Modified [place] Score (MRS) on discharge Score Description 0 No symptoms at all 1 No significant disability despite symptoms; able to carry out all usual duties and activities 2 Slight disability; unable to carry out all previous activities, but able to look after own affairs without assistance 3 Moderate disability; requiring some help, but able to walk without assistance 4 Moderately severe disability; unable to walk without assistance 5 Severe disability; bedridden, incontinent and requiring constant nursing care and attention 6 Total Score: 2 Instructions Given to Patient at Discharge: There are no outpatient Patient Instructions on file for this admission. General Instructions None Future Appointments and Orders Future Orders Complete By Expires Referral to Cardiology [REF12 Custom] As directed Process Instructions: If no progress note charted, please enter Clinical details in comments. Scheduling Instructions: Questions: My question or request is: s/p diagnostic LHC on 02/24/2024, patent MCKEON however high-grade lesion of left circumflex. Primary Care Provider: RASHEL Do [address] / [facility] [id number] Discharge References/Attachments None documented in this encounter Discharge Instructions * Patient Instructions* Jerome Amezquita PA - 03/02/2024 12:11 PM EDT Images from the original note were not included. Patient Instructions: You were admitted to the neurology service at [facility] Your Diagnosis: Stroke, NSTEMI - Work close with your primary care provider (PCP) with monitoring your blood pressure, blood sugarand cholesterol. - Lifestyle modifications should include: taking all medications as prescribed, smoking cessation or staying away from others who are smoking to avoid second hand smoke, limiting alcohol intake, maintaining a normal/healthy weight, adhering to a healthy diet (low-fat, low-sodium, high intake of fresh fruits and vegetables, limiting red meat), and engaging in regular physical activity. - you have been referred to cardiology, they will call you to make an appointment Call 911 or your local EMS if you have sudden weakness or numbness in your face or one of your limbs, slurred speech, loss of vision, or difficulty speaking. It is important to seek medical attentionas soon as possible, as these symptoms could be related to a new stroke. Diet: we recommend a heart healthy diet: low fat, low cholesterol, low concentrated sweets. Activity Restrictions: As tolerated. Driving Restrictions: No driving until cleared by a provider. Diabetes Follow-up and Instructions: 1. Continue to monitor your blood glucose (BG), also called blood sugar, with the goal of before-meal BG of 100 - 120 and after-meal BG of lower than 180. If you often have BG's lower than 80 or higher than 250, call your Health Care Provider. Your HbA1c target is less than 7.0%. 2. Know your cholesterol levels and the goal you are striving for. Your goal LDL is <100. 3. Continue to try eating healthy, which includes a low fat, low cholesterol, high fiber, no added sweets diet. 4. Exercising regularly is important. The goal for most people is 30 minutes of exercise, 3-4 timesper week. 30 minutes of exercise 5 days per week, never going more than 2 days in a row without exercise. Check with your Health care Provider for specific guidelines. 5. Monitor blood pressure weekly: Goal for most patients is 130/80 mm?Hg. Check with your Health Care Provider for specific guidelines. Continue to take all medications daily. 6. Remember to have an annual ophthalmic (eye) examination 7. Remember to have a quarterly foot examination done by your Health care provider. 8. Ask your Health care Provider about annual screening for urine micro-albumin. 9. Please plan quarterly follow-up visits for diabetes management with your Health care Provider. 10. Consider Diabetes Education in your community. The more you know about your diabetes, the better the decisions you will make every day. Know Your Numbers! Blood Pressure BP Readings from Last 3 Encounters: 03/02/24 119/68 06/27/23 155/80 05/17/23 125/73 HA1C Lab Results Component Value Date HA1C 8.3 (H) 02/24/2024 Cholesterol Lab Results Component Value Date CHLPL 91 02/24/2024 HDL 32 02/24/2024 TRIG 122 02/24/2024 LDLCHOL 37 02/24/2024 Below is an explanation of each of the cholesterol test results. Total cholesterol: This test is best when below 200. It can be improved primarily by a low fat diet. HDL (good cholesterol): The higher the better. It is best when above 50. It is primarily genetically determined but can be increased with exercise. LDL (bad cholesterol): this test is best when below 130 (or below 100 if you have heart disease or below 70 if you have had a stroke or TIA). It can be lowered by a low fat diet. Triglycerides: This test is best when below 180. It can be lowered by a low fat diet, avoidance of sweets and weight loss. Follow-up: Neurology: You will have a follow-up appointment in the neurology clinic at [facility]. See below for the appointment time. If you do not have an appointment, you will be called with a time/date for this appointment. NOTE: In an effort to reduce possible exposure to COVID-19, some clinic appointments are being conducted via telehealth with video. We will do our best to accommodate the best visit type, either in-person or via telehealth depending on each unique patient situation. Of note, if you consent to a telehealth encounter in lieu of face to face visit, you understand the visit may be billed similar to a regular [id number] clinic visit. Primary Care Provider: Please follow up with your Primary Care Provider within one to 2 weeks of discharge. For questions regarding this document or issues relating to this hospitalization on the Neurology Service, please contact the author(s) of this discharge summary through the [facility] Unishear Operator . If you need to cancel or reschedule, please call Dept: [phone] as soon as possible. This is helpful to us and other waiting patients. IF FOLLOW UP VISIT WITH STROKE TEAM IS NEEDED IN FORM OF TELEHEALTH: Please ensure you have an active [employer] account and are familiar with it. Also, please ensure an active email address. To sign up for a [employer] account, Visit the [email or web address] website and 1) choose ???create an account?? 2) enter your date of 3) You will be asked if you have an activation code. If you have an activation code, click the ???yes?? button. If you do not have a code, click the ???no?? button. 4) If you do not have an activation code, you will now be asked to enter your information. 5) You will receive an email once your account has been created. If you need technical assistance call [phone] Saturday through Saturday, 7:30 am to 5:00 pm If you plan to join your [facility] Video Visit using your personal smartphone or tablet, prior to joining your visit you will need to download the Zoom daniel from the Daniel Store (for iPhone/iPad) or RepRegen (for Android). Ifyou already have Zoom downloaded on your device for personal use, you???re good to go! 1. Open the Daniel Store or RepRegen Store on your device. 2. Search for Zoom and download the ZoTunes.com [place] Meetings daniel. ? Daniel Store Link: [email or web address] ? [employer] Link: [email or web address]/apps/details?id=us.[email or web address].videomeetings If you plan to join your [facility] Video Visit using your computer or laptop, prior to joining your video visit you will need to download Zoom. If you already have Zoom downloaded on your machine for personal use, you???re good to go! 1. Open your web browser (Internet Explorer, Chrome, etc.). 2. Type zoom.us and press enter on your keyboard (or click this link: https://zoom.us/). 3. In the top right corner of the webpage, hover over Resources and click Download Zoom Client. 4. Within the Zoom Download Center, find Zoom Client for Meetings and click the associated Downloadbutton. 5. Follow the downloading prompts. 6. Once complete, your computer will have the software necessary to connect to your visit. Note: Subsequent video visits will not require a re-download of Zoom. For phone/tablet: Starting 30 minutes before your appointment, you will find the link to connect to your visit withinyoTouchLocal portal. 1. Sign into your [employer] account. 2. Select Appointments. 3. Select your [facility] Video Visit and tap Begin Visit. 4. The Zoom daniel will launch. The ???Waiting for host to start this meeting?? screen will appear and stay until your provider enters the video visit. 5. Once the provider joins the visit you will see your video preview appear. Select Join with Video. 6. You will then be presented with an audio screen. Select Call using Internet Audio. For computer: Starting 30 minutes prior to your scheduled [facility] Video Visit, you will find the link to connect tothe visit within your [employer] portal. 1. Sign into your [employer] account ([employer] portal link: [email or web address]). 2. On the top of the webpage, hover over Visits and select Appointments and Visits. 3. Click the Details button next to your [facility] video visit. 4. Click the Begin Video Visit button. 5. Your computer will open your default web browser. Click Open Zoom Meetings on the pop-up window that appears. 6. The below window will appear and stay until your provider enters the video visit. 7. Once the provider has entered the video visit, you will be prompted with a video preview. Click Join with Video. 8. Connect the audio portion of the visit by clicking the Phone Call button. 9. Dial one of the phone numbers listed and follow the prompts to enter your Meeting ID and Participant ID. Note: the option exists to use your computer for audio, if you choose this option please ensure youare able to confirm your microphone settings are on. documented in this encounter Medications at Time of Discharge Medication Sig Dispensed Refills Start Date End Date ezetimibe (Zetia) 10 mg tablet Take 1 tablet by mouth daily. 03/03/2024 semaglutide (Ozempic) 0.25 mg or 0.5 mg (2 mg/3 mL) Pen Injector Inject 0.5 mg subcutaneously. glipiZIDE XL (Glucotrol XL) 10 mg Tablet Extended Rel 24 hr TAKE 1 TABLET BY MOUTH ONCE DAILY 05/03/2020 metFORMIN (GLUCOPHAGE) 1,000 mg Tablet TAKE ONE TABLET BY MOUTH TWICE A DAY 04/10/2020 acetaminophen (Tylenol) 325 mg tablet Take 2 tablets by mouth every 4 hours as needed. 30 tablet 1 03/02/2024 03/21/2024 sodium chloride 1 gram Tablet Take 1 tablet by mouth 3 times daily. 03/02/2024 03/21/2024 pantoprazole EC (Protonix) [address] tablet Take 1 tablet by mouth daily. 03/03/2024 03/21/2024 aspirin EC 81 mg EC (DR) tablet Take 81 mg by mouth daily. 03/21/2024 amLODIPine (Norvasc) 5 mg tablet Take 5 mg by mouth 2 times daily. 03/21/2024 clopidogreL (Plavix) 75 mg tablet Take 1 tablet by mouth daily. 90 tablet 3 05/17/2023 03/21/2024 sacubitriL-valsartan (Entresto) 24-26 mg tablet Take by mouth 2 times daily. 03/15/2022 03/21/2024 multivitamin (THERAGRAN) Tablet Take 1 tablet by mouth daily. 03/21/2024 metoprolol tartrate (Lopressor) 100 mg Tablet Take 1 tablet by mouth 2 times daily. 60 tablet 1 06/19/2020 03/21/2024 amoxicillin (Amoxil) 500 mg Capsule Take 4 capsules by mouth as needed. Take 4 tablets, 2000mg, 1 hour before dental procedures. 06/19/2020 03/21/2024 blood sugar diagnostic strips Strip Twice daily. One touch verio flex ICD 10 E11.9 50 each 06/19/2020 03/21/2024 rosuvastatin (Crestor) 40 mg Tablet TAKE ONE TABLET BY MOUTH EVERY DAY 04/12/2020 03/21/2024 documented as of this encounter Progress Notes * Miguel A Vides LPN - 03/02/2024 2:06 PM EDT Discharge summary reviewed with patient and spouse, all meds and personal belongings returned to patient. IV's removed, masimo removed. was able to transport patient to facility. [facility] Packet was given to to handoff to nurse. * Kd Naik PTA - 03/02/2024 1:06 PM EDT Physical Therapy Note Treatment Number PT: 3 Patient profile: Johnson Tobar is a 73 y.o. male with PMHx of ASCVD s/p CABG x 3 (MCKEON --> LAD, SVG --> OM1 --> D1) and RCA PCI (06/2023), severe s/p AVR (05/2020), DM2, HTN, HLD who initially presented on 02/22 with chest pressure and light-headedness concerning for ACS. Pt was admitted to Cardiology service and initiated on heparin gtt. Earlier today, he was taken to the asset availability leader, though no intervention required. After procedure, patient noted to have RIGHT gaze preference, dysarthria, left tongue deviation, and LEFT hemibody weakness. Pt is now s/p tPA. Patient with the following active problems: Past Medical History Past Medical History: Diagnosis Date Gastroesophageal reflux controlled with medication Heart valve disease High blood pressure treated with medication Myocardial infarction Peptic ulcer disease >15 yrs ago S/P AVR (aortic valve replacement) 06/13/2020 Type 2 diabetes mellitus 2014 Type 2 diabetes mellitus, without long-term current use of insulin 06/15/2020 Active Non-Hospital Problems Diagnosis Type 2 diabetes mellitus, without long-term current use of insulin S/P CABG (coronary artery bypass graft) S/P AVR (aortic valve replacement) CAD (coronary artery disease) Aortic valve stenosis Type 2 diabetes mellitus ASCVD (arteriosclerotic cardiovascular disease) HTN (hypertension) DJD (degenerative joint disease) Elevated cholesterol Aortic stenosis Past Surgical History Past Surgical History: Procedure Laterality Date CORONARY ANGIOPLASTY WITH STENT PLACEMENT 1997 PRG CATH PLMT LEFT HEART CATH & ARTS W/INJ & ANGIO IMG S&I N/A 05/17/2023 CORONARY ANGIOGRAPHY; W [facility] performed by Avani Danielle MD at [facility] CATHLABS PRG CATH PLMT LEFT HEART CATH & ARTS W/INJ & ANGIO IMG S&I N/A 06/26/2023 CORONARY ANGIOGRAPHY; W [facility],POSSIBLE PCI (WRVU 5.6) performed by Avani Danielle MD at [facility] CATHLABS PRO CABG, ARTERIAL, SINGLE Left 06/13/2020 @CABG, USING ARTERIAL GRAFT;SINGLE ARTERIAL GRAFT (WRVU 33.75) performed by Chun Wiley MD at [facility] MAIN OR PRO CABG, ARTERY-VEIN, TWO N/A 06/13/2020 @CABG, TWO VENOUS GRAFTS & ARTERIAL GRAFT (WRVU 7.93) performed by Chun Wiley MD at [facility] MAIN OR PRO ENDOSCOPY W/VIDEO-ASST VEIN HARVEST, CABG Right 06/13/2020 ENDOSCOPIC HARVEST VEIN(S) FOR CABG (WRVU 0.31) performed by Chun Wiley MD at [facility] MAIN OR PRO PERC TRLUML CORONARY STENT W/ANGIO ADDL ART/BRANCH N/A 06/26/2023 STENT PLACEMENT-EACH ADDITIONAL BRANCH OF A MAJOR CORONARY ARTERY (WRVU *) performed by Avani Danielle MD at [facility] CATH LABS PRO PERC TRLUML CORONARY STENT W/ANGIO ONE ART/BRANCH N/A 06/26/2023 STENT PLACEMENT-SINGLE MAJOR CORONARY ARTERY OR BRANCH (WRVU 10.96) performed by Avani Danielle MD at [facility] CATH LABS PRO REPLACEMENT PROSTHETIC AORTIC VALVE OPEN W CARDIOPULMONARY BYPASS HOMOGRF/STENT N/A 06/13/2020 @REPLACE AORTIC VALVE, OPEN, W\CPB, W\PROSTHETIC VALVE (WRVU 41.32) performed by Chun Wiley MD at [facility] MAIN OR Social History: Home set-up: Pt lives with his Emili in a multi-level home. The bathroom is on the 1st level, and the bedroom is on the 2nd. He could sleep downstairs if necessary. Bathroom Set-up: walk-in shower Stairs: 4STE with rail Baseline Mobility: Pt is typically independent with all ADLs, IADLs, and mobility at baseline. He ambulates without a device and drives. He is retired. Equipment at home: none reported Fall history: had a syncopal fall on Saturday which prompted presentation to hospital Precautions/Special Considerations: at risk to fall, bleeding precautions, s/p tPA, SBP<180, HOB>30*, L inattention Lines: PIV, dixon catheter, tele Activity Orders: activity as tolerated Diet: cardiac diet Mobility and Positioning Recommendations: Pt. to utilize 2 assist and handhold for transfers with nursing. Please encourage up to chair for meal times as able. Interval History: from todays Neuro note: - Patient feels well this morning. He has been ambulating around the unit with a walker and continues to show improvement in his symptoms. He is looking forward to acute rehab. Subjective: Yut Objective: Patient seen for physical therapy and demonstrated the following: Pain: no co Vitals: RA SpO2: 97% HR: 87bpm BP: 102/61 mmHg Bed Mobility: Supine to sit: nt Sit to Supine: nt Transfers: Sit to Stand: x 3 times, cga to fww Stand to Sit: same Balance: good Standing static good with fww Standing dynamic-fair/good, no overt lob, slightly wobble Gait: Distance: 50 + 50 + 50 with seated rest breaks Assistance Needed: fww and cga/glendy with cues for walker mgt Stairs: x 2 with min a , hr Exercises: laq, seated marching Patient educated in role of therapy, gait, ad use, dc planning, transfers Patient left seated in cc, all needs met, RN aware. Assessment: Johnson Tobar was seen today for physical therapy treatment session for continuation of POC. Pt received supine in bed agreeable to PT treatment. Patient tolerated treatment well progressing with increased gait distance, improved gait mechanics and increased therex volume. Despite post-tPA improvement, pt continues to present with marked deficits, and is clearly below his functional baseline. Would highly recommend d/c to acute rehab facility in order to maximize function and safety and address multidisciplinary impairments. Pt will continue to benefit from skilled PT treatment while here at the hospital. Therapy Plan: Therapy Frequency (PT): 2-4 times/wk. Patient / family agrees with plan as stated. Discharge Recommendations: Anticipated Discharge Disposition (PT): acute rehabilitation facility when medically ready for hospital discharge. Discussed with patient and his . Equipment needs: Rolling walker Physical Therapy Goals: To be achieved by 03/11/24: Pt. to demonstrate knowledge of safety limitations and precautions and will appropriately request assistance for functional activities and to mobilize. Pt. to perform bed mobility with supervision. Pt. to perform sit<>stand transfers with supervision using LRAD. Pt. to ambulate 50 feet with CGA using LRAD. Pt. to ambulate up/down 2 step/stairs using one rail and one hand hold with CGA. Family or caregiver to demonstrate understanding of therapeutic interventions to support the care of the patient. Total Minutes, Physical Therapy: 30 ([id number] 2 x tef) Kd Naik PTA Pager: [phone] Physical Therapy Inpatient Rehabilitation Department * Mihaela Coker, OT - 03/02/2024 11:49 AM EDT Occupational Therapy Treatment Note Treatment Number OT: 3 Patient Dx: Johnson Tobar is a 73 y.o. male with PMHx of ASCVD s/p CABG x 3 (MCKEON --> LAD, SVG --> OM1 --> D1) and RCA PCI (06/2023), severe s/p AVR (05/2020), DM2, HTN, HLD who initially presented on 02/22 with chest pressure and light-headedness concerning for ACS. Pt was admitted to Cardiology service and initiated on heparin gtt. Earlier today, he was taken to the asset availability leader, though no intervention required. After procedure, patient noted to have RIGHT gaze preference, dysarthria, left tongue deviation, and LEFT hemibody weakness. Pt is now s/p tPA. Home set-up: Pt lives with his Emili in a multi-level home. The bathroom is on the 1st level, and the bedroom is on the 2nd. He could sleep downstairs if necessary. Bathroom Set-up: walk-in shower Stairs: 4STE with rail Baseline Mobility: Pt is typically independent with all ADLs, IADLs, and mobility at baseline. He ambulates without a device and drives. He is retired. Equipment at home: none reported Fall history: had a syncopal fall on Saturday which prompted presentation to hospital Precautions/Special Considerations: at risk to fall, bleeding precautions, s/p tPA, SBP<180, HOB>30*, L inattention Lines: PIV, dixon catheter, tele Activity Orders: activity as tolerated Diet: cardiac diet Interval History: (Per Neurology MD on 03/02/2024) 24hr Events: -Patient feels well this morning. He has been ambulating around the unit with a walker and continues to show improvement in his symptoms. He is looking forward to acute rehab. S: Can I have help with the shoe? Re: donning footwear seated O: Patient seen for skilled OT treatment, and demonstrated the following: Self-care/Functional Mobility: Patient received supine in bed. Patient was agreeable and motivated to participate in the session today. Supine to Sit: SBA with HOB elevated Sit to Stand: CGA with FWW and verbal cues for hand placement Donned shirt with set-up assistance Doffed/donned lower body clothing on the EOB with Min A for standing aspects and for balance Patient able to stand to fix belt with CGA while standing inside of the walker. Demonstrates fair static balance Patient walked into the bathroom for toileting routine with SBA Grooming at the sink with CGA-Min A for maintaining balance. Patient leaning onto the sink for support. Total A for donning right sock/shoe. Patient able to don left sock /shoe with min A for holding theleg in figure four position. Patient returned to sitting in the recliner chair to eat lunch Patient left seated upright in recliner chair with call blanco, needs met, and chair alarmed. RN notified of patient's status. Cognition: Behavior / Mood: alert and cooperative Alert and oriented to: person, place, time, and situation Follows commands: 1 step, 100% of the time, requires increased time/delayed response, and requires repetition of directions/verbal cueing Attention: requires cues to redirect Safety awareness: decreased insight into deficits Vision: Patient able to scan appropriately (right gaze) Corrective lenses for reading Left inattention Endurance: Decreased standing tolerance for performing ADLs. Vitals: VSS on RA Strength/ROM: Decreased strength R LE Pain: None reported during the session. Education: Pt/family/caregiver education ongoing regarding: Role of occupational therapy/rehabilitation, Transfers, Assistive device/technique, Adaptive equipment training, ADL, Exercise, Safety, Functional Mobility, Activity pacing/Energy conservation, Home Management, Balance, Recommendations, Family training, and Discharge planning. Staff Communication: Patient status, treatment, and mobility recommendations discussed with nursing/other staff. ASSESSMENT: Patient was seen today for OT session focused on self care and functional mobility. Johnson was agreeable and motivated to participate in the session today. He demonstrated lower body dressing routine with min-moderate assistance and grooming at the sink with CGA. Patient noted to have improved standing balance, but still needed verbal reminders for walker management and overall safety.The patient is performing below his baseline ability for mobility and ADLs. The patient would benefit from discharging to an acute rehab facility when medically ready to maximize independence with ADLs/IADLs. Pt will benefit from ongoing therapeutic interventions to achieve pt's and therapy goals Equipment needs at discharge: Anticipated Discharge Disposition: acute rehabilitation facility Daily schedule / Staff Recommendations: Utilize upright chair position using bed features or transfer to recliner chair as appropriate withmin A x 2 Encourage participation in ADL's by providing set up assist on tray table and physical assist only as needed Promote normalcy by encouraging participation in common daily tasks & leisure activities by providing set up assist Frequent orientation verbally & visually with calendars/clocks/whiteboard Facilitate a normal sleep-wake cycle (minimize nighttime distractions when possible, lights on/shades up during the day) Provide brief, clear instructions and directions from one source at a time Occupational Therapy Goals: To be achieved by 03/12/24 Patient will consistently be oriented x 4 and CAM (-) (Progressing) Patient will complete grooming tasks standing at sink with set up, sbA and minimal multi modal cues(Progressing) Patient will complete commode/toilet transfer with sbA Patient will complete bowel/bladder hygiene independently Patient will ambulate functional household distances to bathroom & kitchenette with sbA (Progressing) Patient will don/doff UB & LB clothing sitting EOB or upright in chair with set up A only (Progressing) Patient will visually locate cued stimulus and track to all quadrants on a consistent basis Patient will demonstrate increased awareness of environment as evidence by independent carryover/use of scanning techniques and safe negotiation of obstacles during functional mobility and self care tasks within hospital environment Patient will perform self feeding modified independent with use of clock method and contrast enhancement Therapy Frequency (OT): 2-4 times/wk Total Minutes, Occupational Therapy: 18 ([facility] x1 ([id number])) Pager: [phone] Mihaela Coker OT 03/02/2024 Occupational Therapy Rehabilitation Department * Devon Lorenz - 03/02/2024 10:53 AM EDT Office of Care Management/Golf Course Keeper Patient Name: Johnson Tobar : 1950 Patient has been offered an acute rehab bed at [facility] for today, 03/02/24 Patient will transport to facility via private car around 1300 No MD to MD report necessary Dr. Rao to admit Please call Nursing Report to [phone], ask for district wire chief. Info to accompany patient: Copies of Medication Administration Records and IV sheets for past 10 days. Plan: Golf Course Keeper will be available to the patient and Pipe Finisher-RN and/or Social Workerfor further assistance. Patient will be discharged to: [facility] Devon Lorenz Golf Course Keeper * Yaya Hunter MD - 03/02/2024 6:49 AM EDT Images from the original note were not included. VASCULAR NEUROLOGY PROGRESS NOTE Admit Date 02/23/2024 Responsible Attending: Kd Huggins MD Primary Provider: RASHEL Do [phone] Hospital Day: Hospital Day: 9 Patient ID 73 y.o. male with PMHx of ASCVD s/p CABG x 3 (MCKEON --> LAD, SVG --> OM1 --> D1) and RCA PCI (06/2023), severe s/p AVR (05/2020), DM2, HTN, HLD who initially presented on 02/22 with chest pressure and light-headedness concerning for ACS. Pt was admitted to Cardiology service and initiatedon heparin gtt s/p cardiac cath without intervention. After procedure, patient noted to have RIGHT gaze preference, dysarthria, left tongue deviation, and LEFT hemibody weakness. 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 24-hr Events: -Patient feels well this morning. He has been ambulating around the unit with a walker and continues to show improvement in his symptoms. He is looking forward to acute rehab. EXAM Last value Range last 24 hrs Temperature Temp: 36.7 ??C (98.1 ??F) Temp: [36.7 ??C (98.1 ??F)-36.9 ??C (98.4 ??F)] Heart Rate Heart Rate: 73 Heart Rate: [73-83] Blood Pressure BP: 115/68 BP: (114-130)/(64-77) Respiratory Rate Resp: 16 Resp: [16-17] SpO2 SpO2: 95 % SpO2: [95 %-97 %] GEN- Awake and alert. Able to state age and month. Able to follow simple commands. Mild dysarthria CN- mild RIGHT gaze preference, left visual neglect, no clear facial asymmetry recognized MOTOR- RUE/RLE: 5/5 LUE: mild drift LLE: mild drift SENSATION - +extinction to BSS CEREBELLUM - FTN intact on RUE, LT-sided off-target on FTN, HTS intact CV/PULM - normal WOB EXTREMITIES - right foot cellulitis much improved with minimal erythema, warmth, edema DATA Lipid Panel Lab Results Component Value Date CHLPL 91 02/24/2024 HDL 32 02/24/2024 TRIG 122 02/24/2024 LDLCHOL 37 02/24/2024 Lab Results Component Value Date HA1C 8.3 (H) 02/24/2024 ASSESSMENT & PLAN Johnson Tobar 73 y.o. 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 Most likely etiology clara-procedural. 03/02/24 Patient remains neurologically stable. He continues on DAPT with aspirin and Plavix, as well as high intensity statin and Zetia for secondary stroke risk reduction. Hyponatremia remains stable and continues to improve. Patient remains medically ready for discharge and is pending insurance authorization for acute patient rehab at [facility]. Anticipate discharge to rehab today. 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 #Infarcts of posterior right temporal lobe and adjacent thalamus #History severe right ICA stenosis #Moderate to severe right intradural VA stenosis - neuro checks/VS Q4 - Continue Aspirin 81mg daily, Plavix 75mg daily (will likely be on DAPT through 06/2023 per cardiology) - Continue rosuvastatin 40 mg - PT/OT/POLE INSPECTOR #NSTEMI s/p cardiac catherization w/o intervention 02/23 #Hx PCI to proximal mid-RCA (06/2023) #Hx severe CAD #Severe s/p AVR #Mixed moderate mitral stenosis/regurgitation - LDL 37 --> continue Rosuvastatin 40mg daily - continue zetia 10mg daily - Continue metoprolol 100mg BID - Continue home entresto 24-26mg daily - follow-up with cardiology following discharge #Intermittent low-grade fevers, resolved #Right foot cellulitis, resolved/resolving - s/p cephelexin (02/24-03/01) #Moderate hyponatremia - Salt tablets 1g TID # Heme - - goal Hgb > 7, INR < 1.5, Platelets > 50k - DVT ppx:SCDs # Endo - - goal glucose 120-180 --> ISS - start glargine 5 units nightly for elevated AM sugars > 140 Recent Labs 02/24/24 0302 HA1C 8.3* - TSH 2.07 #Pulm - - goal SpO2> 94% - IS at bedside - nebs PRN #GI - - follow up POLE INSPECTOR recs - Daily Healthy Menu Choices/Cardiac diet ([facility] [place]-Diet) 60/60/75 CHO counting level 2 - maintain bowel reg - Protonix 40mg # Other - Activity: as tolerated - Dispo: Acute patient rehab, [facility] pending insurance auth - Last BM: Last Bowel Movement: 02/29/24 - code status: Attempt Cardiopulmonary Resuscitation - Inpatient Patient Lines/Drains/Airways Status Active Tubes/Lines/Drains Name Placement date Placement time Site Days PIV 02/23/241999 18 gauge cephalic vein (lateral side of arm), left 02/23/241999 -- 8 PIV 02/23/241999 20 gauge basilic vein (medial side of arm), right 02/23/241999 -- 8 Please page Vascular Neurology with any questions, #[phone] Department [place] [address] Associated attestation - Kd Huggins MD - 03/02/2024 1:55 PM EDT Neurology Staff Note I have reviewed the resident's history during the visit and I agree with the details as written. Myphysical examination confirms the resident's findings. The assessment and plan were formulated in discussion with me at the time of the visit and I agree with them as documented. He is ready for transfer today. Reviewed with his and the physical therapy staff. * Linsey Esquivel RN - 03/01/2024 7:53 PM EDT Page Sent Successfully Page Confirmation To Pager number: [phone] From Submitter: Linsey Esquivel Urgency Level: FYI Callback Number: [phone] The following Message was sent: [FYI] - Callback:[phone] ekaterina: pt here 7 days and awaiting placement. can VS and NC be q6wa? - Linsey Esquivel The following status was returned from the observer electrical prospecting: Page for [phone] successfully sent to [phone] having status of Available. * Wendi Baeza RN - 03/01/2024 6:27 PM EDT Up to chair for all meals, walked in hallway x3 150 feet each time with walk, slow however steady gait, needs reminding how to change positioning from sit to stand and to make sure he does not walk staring at his feet. Denied pain throughout, anxious to leave hospital and begin next steps. * Susanna Cm, TAPE RULES PRINTING MACHINE OPERATOR - 03/01/2024 8:05 AM EDT Images from the original note were not included. VASCULAR NEUROLOGY PROGRESS NOTE Admit Date 02/23/2024 Responsible Attending: Kd Huggins MD Primary Provider: RASHEL Do [phone] Hospital Day: Hospital Day: 8 Patient ID 73 y.o. male with PMHx of ASCVD s/p CABG x 3 (MCKEON --> LAD, SVG --> OM1 --> D1) and RCA PCI (06/2023), severe s/p AVR (05/2020), DM2, HTN, HLD who initially presented on 02/22 with chest pressure and light-headedness concerning for ACS. Pt was admitted to Cardiology service and initiatedon heparin gtt s/p cardiac cath without intervention. After procedure, patient noted to have RIGHT gaze preference, dysarthria, left tongue deviation, and LEFT hemibody weakness. 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 24hr Events: -NAEON, VSS, afebrile -Hyponatremia continues to improve -last dose of Keflex this AM for suspected cellulitis EXAM Last value Range last 24 hrs Temperature Temp: 36.8 ??C (98.2 ??F) Temp: [36.8 ??C (98.2 ??F)-37.1 ??C (98.8 ??F)] Heart Rate Heart Rate: 69 Heart Rate: [64-82] Blood Pressure BP: 130/77 BP: (97-132)/(65-77) Respiratory Rate Resp: 17 Resp: [16-17] SpO2 SpO2: 97 % SpO2: [91 %-98 %] GEN- Awake and alert. Able to state age and month. Able to follow simple commands. Mild dysarthria CN- mild RIGHT gaze preference, left visual neglect, no clear facial asymmetry recognized MOTOR- RUE/RLE: 5/5 LUE: mild pronator drift LLE: mild drift SENSATION - +extinction to BSS CEREBELLUM - FTN intact on RUE, LT-sided off-target on FTN, HTS intact CV/PULM - normal WOB EXTREMITIES - right foot cellulitis with minimal erythema, warmth, edema; well within original border drawn by NCCU provider. DATA I/O last 3 completed shifts: In: 100 [P.O.:100] Out: 1300 [Urine:1300] Labs Recent Labs 02/28/24 0533 02/27/24 0630 02/26/24 0004 02/25/24 0106 02/24/24 1331 WBC 5.45 5.78 5.76 5.55 4.94 HGB 10.4* 10.5* 10.6* 10.9* 10.5* HCT 31.0* 30.5* 31.0* 31.6* 30.7* PLATELET 210 179 186 173 172 NEUTROABS 3.78 3.84 4.09 3.95 3.38 Recent Labs 03/01/24 0536 02/29/24 0552 02/28/24 0533 02/27/24 0630 02/26/24 0004 NA 128* 127* 125* 128* 129* K 4.5 4.1 4.1 4.3 4.5 CL 95* 93* 93* 95* 94* CO2 19* 20* 21* 22 23 BUN 13 15 15 11 11 CREATININE 0.88 0.95 1.05 1.00 0.97 GLUCOSE 150 152 175 138 182 Recent Labs 03/01/2453502/29/24 0552 02/28/24 0533 02/27/2430 02/26/24 0004 CALCIUM 9.6 9.3 8.9 9.0 8.9 MAGNESIUM -- -- 0.67* 0.63* 0.79 No results for input(s): AST, ALT, ALKPHOS, BILITOT, BILIDIR, LDH in the last 168 hours. No results for input(s): TROPONINT, CK in the last 168 hours. No results for input(s): PHART, IMR0SIJ, PO2ART, OIZ4JAE in the last 168 hours. No results for input(s): INR in the last 72 hours. Lipid Panel Lab Results Component Value Date CHLPL 91 02/24/2024 HDL 32 02/24/2024 TRIG 122 02/24/2024 LDLCHOL 37 02/24/2024 Lab Results Component Value Date HA1C 8.3 (H) 02/24/2024 Micro - cultures/sensitivities UCx - None CSF - None Blood Cx - None Resp Cx - None Imaging/EKG CXR 02/28/2024: IMPRESSION No acute cardiopulmonary process. Specifically no evidence of pneumonia or pneumonitis. ASSESSMENT & PLAN Johnson Tobar 73 y.o. male with PMHx of ASCVD s/p CABG x 3 (MCKEON --> LAD, SVG --> OM1 --> D1) and RCA PCI (06/2023), severe s/p AVR (05/2020), DM2, HTN, HLD who initially presented on02/22 with chest pressure and light-headedness concerning for ACS, now with dysarthria and left hemiparesis found to have acute distal R QUANTOMETER OPERATOR occlusion s/p tPA. Most likely etiology clara-procedural. 03/01/24 Patient remains neurologically stable. He continues on DAPT with aspirin and Plavix and high intensity statin and Zetia for secondary stroke risk reduction. Hyponatremia remains stable and continues to improve. Patient remains medically ready for discharge and is pending insurance authorization foracute [facility] at [facility]. 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 #Infarcts of posterior right temporal lobe and adjacent thalamus #History severe right ICA stenosis #Moderate to severe right intradural VA stenosis - neuro checks/VS Q4 - Continue Aspirin 81mg daily, Plavix 75mg daily - Continue rosuvastatin 40 mg - PT/OT/POLE INSPECTOR #NSTEMI s/p cardiac catherization w/o intervention 02/23 #Hx PCI to proximal mid-RCA (06/2023) #Hx severe CAD #Severe s/p AVR #Mixed moderate mitral stenosis/regurgitation - LDL 37 --> continue Rosuvastatin 40mg daily - continue Zetia 10mg daily - Continue Metoprolol 100mg BID - Continue home Entresto 24-26mg daily - Will need to follow-up with cardiology following discharge #Intermittent low-grade fevers #Right foot cellulitis, improving - Keflex 500mg QID (02/24-03/01) - for temp > 38C --> UA, CXR, blood cx, sputum cx - tylenol PRN - CXR w/o cardiopulmonary process #Moderate hyponatremia - maintain euvolemia, I=O - can follow-up serum osmolality, urine osmolality, urine lyte to evaluate etiologies; can be followed up at acute rehab - daily BMP -Salt tablets 1g TID # Heme - - goal Hgb > 7, INR < 1.5, Platelets > 50k - DVT ppx:SCDs # Endo - - goal glucose 120-180 --> ISS - start glargine 5 units nightly for elevated AM sugars > 140 Recent Labs 02/24/24 0302 HA1C 8.3* - TSH 2.07 #Pulm - - goal SpO2> 94% - IS at bedside - nebs PRN #GI - - follow up POLE INSPECTOR recs - Daily Healthy Menu Choices/Cardiac diet ([facility] [place]-Diet) 60 CHO counting level 2 - maintain bowel reg - Protonix 40mg # Other - Activity: as tolerated - Dispo: Acute patient rehab, [facility] pending insurance auth - Last BM: Last Bowel Movement: 02/29/24 - code status: Attempt Cardiopulmonary Resuscitation - Inpatient Patient Lines/Drains/Airways Status Active Tubes/Lines/Drains Name Placement date Placement time Site Days PIV 02/23/241999 18 gauge cephalic vein (lateral side of arm), left 02/23/241999 -- 7 PIV 02/23/241999 20 gauge basilic vein (medial side of arm), right 02/23/241999 -- 7 Please page Vascular Neurology with any questions, #[phone] Susanna Cm [place] [address] * Dotty Burns RN - 02/29/2024 6:19 PM EDT Page Confirmation To Pager number: [phone] From Submitter: Dotty Burns Urgency Level: FYI The following Message was sent: [FYI] - 503B Ekaterina; pt has had large volume watery stool foul, want sample? - Dotty Burns The following status was returned from the observer electrical prospecting: Page for [phone] successfully sent to [phone] having status of Available. * Susanna Cm, TAPE RULES PRINTING MACHINE OPERATOR - 02/29/2024 8:23 AM EDT Images from the original note were not included. VASCULAR NEUROLOGY PROGRESS NOTE Admit Date 02/23/2024 Responsible Attending: Kd Huggins MD Primary Provider: RASHEL Do [phone] Hospital Day: Hospital Day: 7 Patient ID 73 y.o. male with PMHx of ASCVD s/p CABG x 3 (MCKEON --> LAD, SVG --> OM1 --> D1) and RCA PCI (06/2023), severe s/p AVR (05/2020), DM2, HTN, HLD who initially presented on 02/22 with chest pressure and light-headedness concerning for ACS. Pt was admitted to Cardiology service and initiatedon heparin gtt s/p cardiac cath without intervention. After procedure, patient noted to have RIGHT gaze preference, dysarthria, left tongue deviation, and LEFT hemibody weakness. 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 24hr Events: -NAEON, VSS, afebrile -Stable hyponatremia -CXR w/o cardiopulmonary process EXAM Last value Range last 24 hrs Temperature Temp: 36.7 ??C (98.1 ??F) Temp: [36.5 ??C (97.7 ??F)-37.4 ??C (99.3 ??F)] Heart Rate Heart Rate: 71 Heart Rate: [71-79] Blood Pressure BP: 117/73 BP: (90-156)/(60-79) Respiratory Rate Resp: 16 Resp: [16] SpO2 SpO2: 96 % SpO2: [96 %-99 %] GEN- Awake and alert. Able to state age and month. Able to follow simple commands. Mild dysarthria CN- mild RIGHT gaze preference, left visual neglect, no clear facial asymmetry recognized MOTOR- RUE/RLE: 5/5 LUE: mild drift LLE: mild drift SENSATION - +extinction to BSS CEREBELLUM - FTN intact on RUE, LT-sided off-target on FTN, HTS intact CV/PULM - normal WOB EXTREMITIES - right foot cellulitis with minimal erythema, warmth, edema; borderzone drawn at time of initial presentation shows clear retreat of cellulitis borders DATA I/O last 3 completed shifts: In: 1051 [P.O.:1001; I.V.:50] Out: 1900 [Urine:1900] Labs Recent Labs 02/28/24 0533 02/27/24 0630 02/26/24 0004 02/25/24 0106 02/24/24 1331 WBC 5.45 5.78 5.76 5.55 4.94 HGB 10.4* 10.5* 10.6* 10.9* 10.5* HCT 31.0* 30.5* 31.0* 31.6* 30.7* PLATELET 210 179 186 173 172 NEUTROABS 3.78 3.84 4.09 3.95 3.38 Recent Labs 02/29/24 0552 02/28/24 0533 02/27/24 0630 02/26/24 0004 02/25/24 1312 NA 127* 125* 128* 129* 129* K 4.1 4.1 4.3 4.5 4.4 CL 93* 93* 95* 94* 94* CO2 20* 21* 22 23 22 BUN 15 15 11 11 11 CREATININE 0.95 1.05 1.00 0.97 1.00 GLUCOSE 152 175 138 182 171 Recent Labs 02/29/24 0552 02/28/24 0533 02/27/24 0602/26/24 0004 CALCIUM 9.3 8.9 9.0 8.9 MAGNESIUM -- 0.67* 0.63* 0.79 No results for input(s): AST, ALT, ALKPHOS, BILITOT, BILIDIR, LDH in the last 168 hours. No results for input(s): TROPONINT, CK in the last 168 hours. No results for input(s): PHART, MJS6QQQ, PO2ART, CDK5DPA in the last 168 hours. No results for input(s): INR in the last 72 hours. Lipid Panel Lab Results Component Value Date CHLPL 91 02/24/2024 HDL 32 02/24/2024 TRIG 122 02/24/2024 LDLCHOL 37 02/24/2024 Lab Results Component Value Date HA1C 8.3 (H) 02/24/2024 Micro - cultures/sensitivities UCx - None CSF - None Blood Cx - None Resp Cx - None Imaging/EKG CXR: IMPRESSION No acute cardiopulmonary process. Specifically no evidence of pneumonia or pneumonitis. ASSESSMENT & PLAN Johnson Tobar 73 y.o. male with PMHx of ASCVD s/p CABG x 3 (MCKEON --> LAD, SVG --> OM1 --> D1) and RCA PCI (06/2023), severe s/p AVR (05/2020), DM2, HTN, HLD who initially presented on02/22 with chest pressure and light-headedness concerning for ACS, now with dysarthria and left hemiparesis found to have acute distal R QUANTOMETER OPERATOR occlusion s/p tPA. Most likely etiology clara-procedural. 02/29/24 Patient remains neurologically stable. He continues on DAPT with aspirin and Plavix and high intensity statin and Zetia for secondary stroke risk reduction. Continues to have hyponatremia. Will startsalt tablets and recommend adding salt to food. Patient remains medically ready for discharge and is pending insurance authorization for acute patient rehab at [facility]. 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 #Infarcts of posterior right temporal lobe and adjacent thalamus #History severe right ICA stenosis #Moderate to severe right intradural VA stenosis - neuro checks/VS Q4 - Continue Aspirin 81mg daily, Plavix 75mg daily - Continue rosuvastatin 40 mg - PT/OT/POLE INSPECTOR #NSTEMI s/p cardiac catherization w/o intervention 02/23 #Hx PCI to proximal mid-RCA (06/2023) #Hx severe CAD #Severe s/p AVR #Mixed moderate mitral stenosis/regurgitation - LDL 37 --> continue Rosuvastatin 40mg daily - continue Zetia 10mg daily - Continue Metoprolol 100mg BID - Continue home Entresto 24-26mg daily - Will need to follow-up with cardiology following discharge #Intermittent low-grade fevers #Right foot cellulitis, improving - Keflex 500mg QID (02/24-03/01) - for temp > 38C --> UA, CXR, blood cx, sputum cx - tylenol PRN - follow-up CXR, UA; low suspicion for other infection outside of cellulitis at this time, continueto monitor #Moderate hyponatremia - maintain euvolemia, I=O - can follow-up serum osmolality, urine osmolality, urine lyte to evaluate etiologies; can be followed up at acute rehab - daily BMP -Salt tablets 1g TID # Heme - - goal Hgb > 7, INR < 1.5, Platelets > 50k - DVT ppx:SCDs # Endo - - goal glucose 120-180 --> ISS - start glargine 5 units nightly for elevated AM sugars > 140 Recent Labs 02/24/24 0302 HA1C 8.3* - TSH 2.07 #Pulm - - goal SpO2> 94% - IS at bedside - nebs PRN #GI - - follow up POLE INSPECTOR recs - Daily Healthy Menu Choices/Cardiac diet ([facility] [place]-Diet) 60/60/75 CHO counting level 2 - maintain bowel reg - Protonix 40mg # Other - Activity: as tolerated - Dispo: pending course - Last BM: Last Bowel Movement: 02/28/24 - code status: Attempt Cardiopulmonary Resuscitation - Inpatient Patient Lines/Drains/Airways Status Active Tubes/Lines/Drains Name Placement date Placement time Site Days PIV 02/23/241999 18 gauge cephalic vein (lateral side of arm), left 02/23/241999 -- 6 PIV 02/23/241999 20 gauge basilic vein (medial side of arm), right 02/23/241999 -- 6 Please page Vascular Neurology with any questions, #[phone] Susanna Cm [place] [address] Associated attestation - Kd Huggins MD - 02/29/2024 9:15 PM EDT Images from the original note were not included. Neurology Staff Note Right temporo-occipital infarction associated with coronary angiography. Overall slowly improving. Awaiting tx to IRF Family updated at bedside today Monitoring hyponatremia See Assessment This patient was seen in conjunction with our associate provider. I performed the majority of this shared visit based on medical decision making.. I independently evaluated the patient. I reviewed the vital signs and the I/Os. Patient Vitals for the past 8 hrs: BP Temp Temp src Pulse Resp SpO2 02/29/242 132/71 37.1 ??C (98.8 ??F) Oral -- 16 96 % 02/29/24 1600 -- -- -- 70 -- -- Intake/Output Summary (Last 24 hours) at 02/29/20243 Last data filed at 02/29/2024 0753 Gross per 24 hour Intake -- Output 450 ml Net -450 ml Sodium slightly better Exam findings: Alert, comfortable, no new deficits noted I completed all the Medical Decision Making on this date including:, All problems addressed at the visit and the status of problems, and Reviewed and ordered or supervised ordering of lab /radiology/other tests * Kd Naik, LABOR RELATIONS ANALYST - 02/28/2024 3:39 PM EDT Physical Therapy Note Treatment Number PT: 2 Patient profile: Johnson Tobar is a 73 y.o. male with PMHx of ASCVD s/p CABG x 3 (MCKEON --> LAD, SVG --> OM1 --> D1) and RCA PCI (06/2023), severe s/p AVR (05/2020), DM2, HTN, HLD who initially presented on 02/22 with chest pressure and light-headedness concerning for ACS. Pt was admitted to Cardiology service and initiated on heparin gtt. Earlier today, he was taken to the asset availability leader, though no intervention required. After procedure, patient noted to have RIGHT gaze preference, dysarthria, left tongue deviation, and LEFT hemibody weakness. Pt is now s/p tPA. Patient with the following active problems: Past Medical History Past Medical History: Diagnosis Date Gastroesophageal reflux controlled with medication Heart valve disease High blood pressure treated with medication Myocardial infarction Peptic ulcer disease >15 yrs ago S/P AVR (aortic valve replacement) 06/13/2020 Type 2 diabetes mellitus 2014 Type 2 diabetes mellitus, without long-term current use of insulin 06/15/2020 Active Non-Hospital Problems Diagnosis Type 2 diabetes mellitus, without long-term current use of insulin S/P CABG (coronary artery bypass graft) S/P AVR (aortic valve replacement) CAD (coronary artery disease) Aortic valve stenosis Type 2 diabetes mellitus ASCVD (arteriosclerotic cardiovascular disease) HTN (hypertension) DJD (degenerative joint disease) Elevated cholesterol Aortic stenosis Past Surgical History Past Surgical History: Procedure Laterality Date CORONARY ANGIOPLASTY WITH STENT PLACEMENT [address] [facility] LEFT HEART CATH & ARTS W/INJ & ANGIO IMG S&I N/A 05/17/2023 CORONARY ANGIOGRAPHY; W [facility],POSSIBLE PCI (WRVU 5.6) performed by Avani Danielle MD at [facility] CATHLABS PRG CATH [facility] LEFT HEART CATH & ARTS W/INJ & ANGIO IMG S&I N/A 06/26/2023 CORONARY ANGIOGRAPHY; W [facility],POSSIBLE PCI (WRVU 5.6) performed by Avani Danielle MD at [facility] CATHLABS PRO CABG, ARTERIAL, SINGLE Left 06/13/2020 @CABG, USING ARTERIAL GRAFT;SINGLE ARTERIAL GRAFT (WRVU 33.75) performed by Chun Wiley MD at [facility] MAIN OR PRO CABG, ARTERY-VEIN, TWO N/A 06/13/2020 @CABG, TWO VENOUS GRAFTS & ARTERIAL GRAFT (WRVU 7.93) performed by Chun Wiley MD at [facility] MAIN OR PRO ENDOSCOPY W/VIDEO-ASST VEIN HARVEST, CABG Right 06/13/2020 ENDOSCOPIC HARVEST VEIN(S) FOR CABG (WRVU 0.31) performed by Chun Wiley MD at [facility] MAIN OR PRO PERC TRLUML CORONARY STENT W/ANGIO ADDL ART/BRANCH N/A 06/26/2023 STENT PLACEMENT-EACH ADDITIONAL BRANCH OF A MAJOR CORONARY ARTERY (WRVU *) performed by Avani Danielle MD at [facility] CATH LABS PRO PERC TRLUML CORONARY STENT W/ANGIO ONE ART/BRANCH N/A 06/26/2023 STENT PLACEMENT-SINGLE MAJOR CORONARY ARTERY OR BRANCH (WRVU 10.96) performed by Avani Danielle MD at [facility] CATH LABS PRO REPLACEMENT PROSTHETIC AORTIC VALVE OPEN W CARDIOPULMONARY BYPASS HOMOGRF/STENT N/A 06/13/2020 @REPLACE AORTIC VALVE, OPEN, W\CPB, W\PROSTHETIC VALVE (WRVU 41.32) performed by Chun Wiley MD at [facility] MAIN OR Social History: Home set-up: Pt lives with his Emili in a multi-level home. The bathroom is on the 1st level, and the bedroom is on the 2nd. He could sleep downstairs if necessary. Bathroom Set-up: walk-in shower Stairs: 4STE with rail Baseline Mobility: Pt is typically independent with all ADLs, IADLs, and mobility at baseline. He ambulates without a device and drives. He is retired. Equipment at home: none reported Fall history: had a syncopal fall on Saturday which prompted presentation to hospital Precautions/Special Considerations: at risk to fall, bleeding precautions, s/p tPA, SBP<180, HOB>30*, L inattention Lines: PIV, dixon catheter, tele Activity Orders: activity as tolerated Diet: cardiac diet Mobility and Positioning Recommendations: Pt. to utilize 2 assist and handhold for transfers with nursing. Please encourage up to chair for meal times as able. Interval History: from [facility] Neuro note: - Patient reports that he feels ok overall this morning, but [facility] states that he continues to show improvement in his neurologic symptoms since time of initial presentation. His also reports that right foot cellulitis has significantly improved since time of presentation with decreased swelling. He did have a Tmax of 38.4C yesterday afternoon ryan mild temperature of 38C this morning. He denies night sweats, cough, congestion, and dysuria. 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 Objective: Patient seen for physical therapy and demonstrated the following: Pain: no co Vitals: RA SpO2: 100 % HR: 62 bpm BP: 126/73 mmHg to start, 97/63 end-nursing notified Bed Mobility: Supine to sit: min a hearing aid dispenser Sit to Supine: nt Transfers: Sit to Stand: x 5 times, cga to fww Stand to Sit: same Balance: seated-fair, left lean able to maintain upright for a couple minutes without use of ue-with cues Standing static good with fww Standing dynamic-fair, wobbly throughout with fww Gait: wobbly throughout, slightly ataxic with a few minor stop and go episodes Distance: 50'+50+50 with seated rest breaks Assistance Needed: fww and cga/glendy for upright and steering, vc to walk in walker and to steer in the middle of the holliday Stairs: nt Exercises: slr, saq, pillow squeezes, laq,standing marching, seated marching Patient educated in role of therapy, gait, ad use, dc planning, transfers Patient left seated in cc, all needs met, RN aware. Assessment: Johnson Tobar was seen today for physical therapy treatment session for continuation of POC. Pt received supine in bed agreeable to PT treatment. Patient tolerated treatment well progressing with increased gait distance, improved gait mechanics and increased therex volume. Despite post-tPA improvement, pt continues to present with marked deficits, and is clearly below his functional baseline. Would highly recommend d/c to acute rehab facility in order to maximize function and safety and address multidisciplinary impairments. Pt will continue to benefit from skilled PT treatment while here at the hospital. Therapy Plan: Therapy Frequency (PT): 2-4 times/wk. Patient / family agrees with plan as stated. Discharge Recommendations: Anticipated Discharge Disposition (PT): acute rehabilitation facility when medically ready for hospital discharge. Discussed with patient and his . Equipment needs: Rolling walker Physical Therapy Goals: To be achieved by 03/11/24: Pt. to demonstrate knowledge of safety limitations and precautions and will appropriately request assistance for functional activities and to mobilize. Pt. to perform bed mobility with supervision. Pt. to perform sit<>stand transfers with supervision using LRAD. Pt. to ambulate 50 feet with CGA using LRAD. Pt. to ambulate up/down 2 step/stairs using one rail and one hand hold with CGA. Family or caregiver to demonstrate understanding of therapeutic interventions to support the care of the patient. Total Minutes, Physical Therapy: 50 ([phone] 3 x tef) Kd Naik, [facility] Pager: [phone] Physical Therapy Inpatient Rehabilitation Department * Carl Martínez RN - 02/28/2024 9:56 AM EDT Page Sent Successfully Page Confirmation To Pager number: [phone] From Submitter: Carl Martínez Urgency Level: FYI The following Message was sent: [FYI] - 503a; is the dixon staying in today? - Carl Martínez The following status was returned from the observer electrical prospecting: Page for [phone] successfully sent to [phone] having status of Available. * Mihaela Coker, OT - 02/28/2024 9:38 AM EDT Occupational Therapy Treatment Note Treatment Number OT: 2 Patient Dx: Johnson Tobar is a 73 y.o. male with PMHx of ASCVD s/p CABG x 3 (MCKOEN --> LAD, SVG --> OM1 --> D1) and RCA PCI (06/2023), severe s/p AVR (05/2020), DM2, HTN, HLD who initially presented on 02/22 with chest pressure and light-headedness concerning for ACS. Pt was admitted to Cardiology service and initiated on heparin gtt. Earlier today, he was taken to the asset availability leader, though no intervention required. After procedure, patient noted to have RIGHT gaze preference, dysarthria, left tongue deviation, and LEFT hemibody weakness. Pt is now s/p tPA. Home set-up: Pt lives with his Emili in a multi-level home. The bathroom is on the 1st level, and the bedroom is on the 2nd. He could sleep downstairs if necessary. Bathroom Set-up: walk-in shower Stairs: 4STE with rail Baseline Mobility: Pt is typically independent with all ADLs, IADLs, and mobility at baseline. He ambulates without a device and drives. He is retired. Equipment at home: none reported Fall history: had a syncopal fall on Saturday which prompted presentation to hospital Precautions/Special Considerations: at risk to fall, bleeding precautions, s/p tPA, SBP<180, HOB>30*, L inattention Lines: PIV, dixon catheter, tele Activity Orders: activity as tolerated Diet: cardiac diet Interval History: (Per Neurology MD on 02/27/2024) 24hr Events: - Patient reports that he feels ok overall. states that he continues to show improvement sincetime of initial presentation. He does report some night sweats overnight. His Tmax overnight was 38.2, but this does not appear to have been sustained. S: Turn left again? re: when walking in the hallway O: Patient seen for skilled OT treatment, and demonstrated the following: Self-care/Functional Mobility: Patient received sitting upright in chair playing card game with . Patient was agreeable and motivated to participate in the session today. Patient was alert and oriented x4 Doffed/donned socks with maximal assistance Donned pants with Min A x1 and assistance with managing dixon catheter Sit to Stand from recliner chair: Min A with FWW and gait belt. LOB when initially standing and taking hand off the walker Patient walked ~150ft in the hallway with x2 episodes of losing his balance with Min A to correct balance. Stand to Sit: Min A x1 with FWW and verbal cues for turning with the walker and reaching back Patient walked into the bathroom for grooming routine Standing at the sink for ~5 minutes or grooming routine with maximal assistance for maintaining balance. Verbal cues for left leg placement and for correcting posture. Patient able to scan and find grooming items on the left side with increased time and verbal cues Bathroom to recliner chair: Mod A with FWW for walker management and cues for holding onto walker with left hand (inattention to left side) Stand to Sit: Min A with FWW Patient left seated upright in recliner chair with call blanco, needs met, and chair alarmed. RN notified of patient's status. Cognition: Behavior / Mood: alert and cooperative Alert and oriented to: person, place, time, and situation Follows commands: 1 step, 100% of the time, requires increased time/delayed response, and requires repetition of directions/verbal cueing Attention: requires cues to redirect Safety awareness: decreased insight into deficits Vision: Patient able to scan appropriately (right gaze) Corrective lenses for reading Left inattention Endurance: Decreased standing tolerance for performing ADLs. Vitals: VSS on RA Strength/ROM: Decreased strength R LE Pain: None reported during the session. Education: Pt/family/caregiver education ongoing regarding: Role of occupational therapy/rehabilitation, Transfers, Assistive device/technique, Adaptive equipment training, ADL, Exercise, Safety, Functional Mobility, Activity pacing/Energy conservation, Home Management, Balance, Recommendations, Family training, and Discharge planning. Staff Communication: Patient status, treatment, and mobility recommendations discussed with nursing/other staff. ASSESSMENT: Patient was seen today for OT session focused on self care and functional mobility. Johnson was agreeable and motivated to participate in the session today. He demonstrated donning pants with min A, grooming at the sink with max A for balance, and walking in the hallway with min A. He hadthree instances of losing his balance and was wobbly when using the walker in the hallway. He is inattentive to the right side and needs verbal cues for moving the right hand with transfers. Recommend the patient still have two people for assistance with transfers for safety as he is a higher fall risk at this time. The patient is performing below his baseline ability for mobility and ADLs. The patient would benefit from discharging to an acute rehab facility when medically ready to maximize independence with ADLs/IADLs. Pt will benefit from ongoing therapeutic interventions to achieve pt's and therapy goals Equipment needs at discharge: Anticipated Discharge Disposition: acute rehabilitation facility Daily schedule / Staff Recommendations: Utilize upright chair position using bed features or transfer to recliner chair as appropriate withmin A x 2 Encourage participation in ADL's by providing set up assist on tray table and physical assist only as needed Promote normalcy by encouraging participation in common daily tasks & leisure activities by providing set up assist Frequent orientation verbally & visually with calendars/clocks/whiteboard Facilitate a normal sleep-wake cycle (minimize nighttime distractions when possible, lights on/shades up during the day) Provide brief, clear instructions and directions from one source at a time Occupational Therapy Goals: To be achieved by 03/12/24 Patient will consistently be oriented x 4 and CAM (-) (Progressing) Patient will complete grooming tasks standing at sink with set up, sbA and minimal multi modal cues(Progressing) Patient will complete commode/toilet transfer with sbA Patient will complete bowel/bladder hygiene independently Patient will ambulate functional household distances to bathroom & kitchenette with sbA (Progressing) Patient will don/doff UB & LB clothing sitting EOB or upright in chair with set up A only Patient will visually locate cued stimulus and track to all quadrants on a consistent basis Patient will demonstrate increased awareness of environment as evidence by independent carryover/use of scanning techniques and safe negotiation of obstacles during functional mobility and self care tasks within hospital environment Patient will perform self feeding modified independent with use of clock method and contrast enhancement Therapy Frequency (OT): 2-4 times/wk Total Minutes, Occupational Therapy: 33 (SCHM X1 TEF x1 ([id number])) Pager: [phone] Mihaela Coker OT 02/28/2024 Occupational Therapy Rehabilitation Department * Yaya Hunter MD - 02/28/2024 7:07 AM EDT Images from the original note were not included. VASCULAR NEUROLOGY PROGRESS NOTE Admit Date 02/23/2024 Responsible Attending: Kd Huggins MD Primary Provider: RASHEL Do [phone] Hospital Day: Hospital Day: 6 Patient ID 73 y.o. male with PMHx of ASCVD s/p CABG x 3 (MCKEON --> LAD, SVG --> OM1 --> D1) and RCA PCI (06/2023), severe s/p AVR (05/2020), DM2, HTN, HLD who initially presented on 02/22 with chest pressure and light-headedness concerning for ACS. Pt was admitted to Cardiology service and initiatedon heparin gtt s/p cardiac cath without intervention. After procedure, patient noted to have RIGHT gaze preference, dysarthria, left tongue deviation, and LEFT hemibody weakness. 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 24hr Events: - Patient reports that he feels ok overall this morning, but he is hoping to be discharged to acuterehab. states that he continues to show improvement in his neurologic symptoms since time of initial presentation. His also reports that right foot cellulitis has significantly improved since time of presentation with decreased swelling. He did have a Tmax of 38.4C yesterday afternoon ryan mild temperature of 38C this morning. He denies night sweats, cough, congestion, and dysuria. EXAM Last value Range last 24 hrs Temperature Temp: 37.4 ??C (99.3 ??F) Temp: [36.7 ??C (98.1 ??F)-38.4 ??C (101.1 ??F)] Heart Rate Heart Rate: 74 Heart Rate: [74-80] Blood Pressure BP: 114/71 BP: (100-147)/(58-84) Respiratory Rate Resp: 16 Resp: [16-18] SpO2 SpO2: 97 % SpO2: [96 %-99 %] GEN- Awake and alert. Able to state age and month. Able to follow simple commands. Mild dysarthria CN- mild RIGHT gaze preference, left visual neglect, no clear facial asymmetry recognized MOTOR- RUE/RLE: 11/16 LUE: mild drift LLE: mild drift SENSATION - +extinction to BSS CEREBELLUM - FTN intact on RUE, LT-sided off-target on FTN, HTS intact CV/PULM - normal WOB EXTREMITIES - right foot cellulitis with minimal erythema, warmth, edema; borderzone drawn at time of initial presentation shows clear retreat of cellulitis borders DATA I/O last 3 completed shifts: In: 861 [P.O.:761; I.V.:100] Out: 2470 [Urine:2470] Labs Recent Labs 02/28/24 0533 02/27/24 0630 02/26/24 0004 02/25/24 0106 02/24/24 1331 WBC 5.45 5.78 5.76 5.55 4.94 HGB 10.4* 10.5* 10.6* 10.9* 10.5* HCT 31.0* 30.5* 31.0* 31.6* 30.7* PLATELET 210 179 186 173 172 NEUTROABS 3.78 3.84 4.09 3.95 3.38 Recent Labs 02/28/24 0533 02/27/24 0630 02/26/24 0004 02/25/24 1312 02/25/24 0106 NA 125* 128* 129* 129* 130* K 4.1 4.3 4.5 4.4 4.3 CL 93* 95* 94* 94* 95* CO2 21* 22 23 22 22 BUN 15 11 11 11 13 CREATININE 1.05 1.00 0.97 1.00 1.00 GLUCOSE 175 138 182 171 112 Recent Labs 02/28/24 0533 02/27/24 0630 02/26/24 0004 CALCIUM 8.9 9.0 8.9 MAGNESIUM 0.67* 0.63* 0.79 No results for input(s): AST, ALT, ALKPHOS, BILITOT, BILIDIR, LDH in the last 168 hours. No results for input(s): TROPONINT, CK in the last 168 hours. No results for input(s): PHART, [id number], PO2ART, WOR6IMG in the last 168 hours. No results for input(s): INR in the last 72 hours. Lipid Panel Lab Results Component Value Date CHLPL 91 02/24/2024 HDL 32 02/24/2024 TRIG 122 02/24/2024 LDLCHOL 37 02/24/2024 Lab Results Component Value Date HA1C 8.3 (H) 02/24/2024 Micro - cultures/sensitivities UCx - None CSF - None Blood Cx - None Resp Cx - None Imaging/EKG CTH 02/25/2024: IMPRESSION No acute intracranial hemorrhage, mass effect, or large territorial abnormality identified. ASSESSMENT & PLAN Johnson Maribel FoxEkaterina 73 y.o. male with PMHx of ASCVD s/p CABG x 3 (MCKEON --> LAD, SVG --> OM1 --> D1) and RCA PCI (06/2023), severe s/p AVR (05/2020), DM2, HTN, HLD who initially presented on02/22 with chest pressure and light-headedness concerning for ACS, now with dysarthria and left hemiparesis found to have acute distal R QUANTOMETER OPERATOR occlusion s/p tPA versus clara-procedural stroke. 02/28/24 Patient remains neurologically stable. Etiology unclear, possibly clara- procedural in setting of cath procedure. We plan to continue DAPT for at least 90 days for carotid stenosis per CREST, as well as high intensity statin and Zetia. Patient remains medically ready at this time and awaiting placement at [facility]. 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 #Infarcts of posterior right temporal lobe and adjacent thalamus #History severe right ICA stenosis #Moderate to severe right intradural VA stenosis - neuro checks/VS Q4 - Continue Aspirin 81mg daily, Plavix 75mg daily (will continue for 90 days at least, will defer tocardiology outpatient about DAPT past 90 days) - Continue rosuvastatin 40 mg - PT/OT/POLE INSPECTOR #NSTEMI s/p cardiac catherization w/o intervention 02/23 #Hx PCI to proximal mid-RCA (06/2023) #Hx severe CAD #Severe s/p AVR #Mixed moderate mitral stenosis/regurgitation - LDL 37 --> continue Rosuvastatin 40mg daily - continue Zetia 10mg daily - Continue Metoprolol 100mg BID - Continue home Entresto 24-26mg daily - Continue Aspirin 81mg daily, Plavix 75mg daily (will continue for 90 days at least, will defer tocardiology outpatient about DAPT past 90 days) - Will need to follow-up with cardiology following discharge #Intermittent low-grade fevers #Right foot cellulitis, improving - Keflex 500mg QID (02/24-03/01) - for temp > 38C --> UA, CXR, blood cx, sputum cx - tylenol PRN - follow-up CXR, UA; low suspicion for other infection outside of cellulitis at this time, continueto monitor #Moderate hyponatremia - maintain euvolemia, I=O - can follow-up serum osmolality, urine osmolality, urine lyte to evaluate etiologies; can be followed up at acute rehab - daily BMP # Heme - - goal Hgb > 7, INR < 1.5, Platelets > 50k - DVT ppx:SCDs # Endo - - goal glucose 120-180 --> ISS - start glargine 5 units nightly for elevated AM sugars > 140 Recent Labs 02/24/24 0302 HA1C 8.3* - TSH 2.07 #Pulm - - goal SpO2> 94% - IS at bedside - nebs PRN #GI - - follow up POLE INSPECTOR recs - Daily Healthy Menu Choices/Cardiac diet ([facility] [place]-Diet) 60/60/75 CHO counting level 2 - maintain bowel reg - Protonix 40mg # Other - Activity: as tolerated - Dispo: pending course - Last BM: Last Bowel Movement: 02/27/24 - code status: Attempt Cardiopulmonary Resuscitation - Inpatient Patient Lines/Drains/Airways Status Active Tubes/Lines/Drains Name Placement date Placement time Site Days PIV 02/23/241999 18 gauge cephalic vein (lateral side of arm), left 02/23/241999 -- 5 PIV 02/23/241999 20 gauge basilic vein (medial side of arm), right 02/23/241999 -- 5 Urethral Catheter 02/24/24 1500 silicone coated 14 02/24/24 1500 -- 4 Please page Vascular Neurology with any questions, #[phone] Associated attestation - Kd Huggins MD - 02/28/2024 10:38 PM EDT Neurology Staff Note I have reviewed the resident's history during the visit and I agree with the details as written. Myphysical examination confirms the resident's findings. The assessment and plan were formulated in discussion with me at the time of the visit and I agree with them as documented. Overall improving. Evaluating hyponatremia and monitoring foot cellulitis that has improved * Carl Martínez RN - 02/27/2024 5:10 PM EDT Page Sent Successfully Page Confirmation To Pager number: [phone] From Submitter: Carl Martínez Urgency Level: FYI The following Message was sent: [FYI] - 503a, Ekaterina, tele order , need new order to put on tele if still want it - Carl Martínez The following status was returned from the observer electrical prospecting: Page for [phone] successfully sent to [phone] having status of Available. * Rachel Saenz SLP - 02/27/2024 10:39 AM EDT Speech Therapy Progress Note Patient Profile: Johnson Tobar is a 73 y.o. male with PMHx of ASCVD s/p CABG x 3 (MCKEON --> LAD, SVG --> OM1 --> D1) and RCA PCI (06/2023), severe s/p AVR (05/2020), DM2, HTN, HLD who initially presented on 02/22 with chest pressure and light-headedness concerning for ACS. Pt was admitted to Cardiology service and initiated on heparin gtt. Earlier today, he was taken to the asset availability leader, though no intervention required. After procedure, patient noted to have RIGHT gaze preference, dysarthria, left tongue deviation, and LEFT hemibody weakness. Transferred to [facility] s/p TPA. Prior Level of Swallow Function: WNL Subjective: Pt and both state that his eating and speaking are both fine. Objective: Pt seen for f/u today from Clinical Swallow Assessment done 02/26/24. Pain: Patient in no acute observed discomfort. Respiratory Status: Room air saturating at 98%. Vision: Functional for evaluation, not formally assessed Hearing: Functional for evaluation Current Diet: Daily Healthy Menu Choices/Cardiac diet ([facility] [place]-Diet) 60/60/75 CHO counting level 2 Feeding and Oral Care: Pt is independent Cognitive-Linguistic Status: Baseline cognition Orientation Log Score: Positioning: HOB at 80 degrees Oral Motor Exam: WFL Impaired Comments STRUCTURES Facial Symmetry x Lips x Tongue x Jaw x Palate/Velum x Dentition x OTHER Phonation x Intelligibility x Volitional Cough x Sensation x Secretion Management x Bolus Presentation(s) Tested Comments Thin liquids x [place] thick liquids Honey thick liquids Pureed solids Dysphagia soft Mechanical soft Regular solids x Pills Other Oral Preparatory Phase Mastication: WNL Oral Transit: WNL Bolus Cohesion: WNL Oral Containment: WNL, no anterior spillage Oral Stasis: Not noted Pharyngeal Phase Laryngeal Elevation: Appears prompt and adequate to palpation Vocal quality change: Not noted Cough / throat clear: Not noted Pt. complaint of food getting stuck: Pt denies Fatigue across trials: Not noted Respiratory rate and respiratory swallow pattern: No changes noted Esophageal Phase Appears to be WFL, No overt clinical s/s of esophageal phase dysphagia noted during this evaluation. Compensatory Techniques: None needed to support safe swallow. Education: Patient, Family educated on role of the POLE INSPECTOR and findings and plan of care. Patient status, treatment and swallow recommendations were discussed with nursing. Assessment: Pt's oral motor exam appears WFL. Speech is clear. No s/s dysphagia noted, tolerating regular diet, ate 100% breakfast w/o issues. confirms that pt's speech is back to baseline and pt denies any word finding issues or difficulty understanding speech. Diagnosis: Baseline speech and swallow function Recommendations: Diet: Regular solids, Thin liquids PO medications: whole with sip of liquid Aspiration precautions: Upright position during meals and for at least 30 mins following Excellent oral care x2/day recommended to prevent oral bacterial growth, oral built up of dried secretions and reduce risk for aspiration pneumonia Do not anticipate need from POLE INSPECTOR services in discharge location. Speech Therapy Goals: (To be met by discharge) Pt will maintain hydration / nutrition with optimal safety and efficiency. MET Monitor for further acute changes in speech or swallow during hospitalization MET Plan: Therapy Frequency (POLE INSPECTOR Eval): other (see comments) No further POLE INSPECTOR needs identified. Pt./family are in agreement with treatment plan. 10 min session. Thank you for this consult with this patient. Please feel free to page me with any questions or concerns. Rachel Saenz MA, CCC-POLE INSPECTOR Pager: [phone] Speech-Language Pathology Inpatient Rehabilitation Medicine * Carl Martínez RN - 02/27/2024 10:31 AM EDT Page Sent Successfully Page Confirmation To Pager number: [phone] From Submitter: Carl Martínez Urgency Level: FYI The following Message was sent: [FYI] - 503a; tele order expires @ 1500 today, also no BM since Saturday & no prn ordered - Carl Martínez The following status was returned from the observer electrical prospecting: Page for [phone] successfully sent to [phone] having status of Available. * Yaya Hunter MD - 02/27/2024 9:23 AM EDT Images from the original note were not included. VASCULAR NEUROLOGY PROGRESS NOTE Admit Date 02/23/2024 Responsible Attending: Kd Huggins MD Primary Provider: RASHEL Do [phone] Hospital Day: Hospital Day: 5 Patient ID 73 y.o. male with PMHx of ASCVD s/p CABG x 3 (MCKEON --> LAD, SVG --> OM1 --> D1) and RCA PCI (06/2023), severe s/p AVR (05/2020), DM2, HTN, HLD who initially presented on 02/22 with chest pressure and light-headedness concerning for ACS. Pt was admitted to Cardiology service and initiatedon heparin gtt. Earlier today, he was taken to the asset availability leader, though no intervention required. After procedure, patient noted to have RIGHT gaze preference, dysarthria, left tongue deviation, and LEFThemibody weakness. 24hr Events: - Patient reports that he feels ok overall. states that he continues to show improvement sincetime of initial presentation. He does report some night sweats overnight. His Tmax overnight was 38.2, but this does not appear to have been sustained. EXAM Last value Range last 24 hrs Temperature Temp: 37.2 ??C (99 ??F) Temp: [36.8 ??C (98.2 ??F)-38.2 ??C (100.8 ??F)] Heart Rate Heart Rate: 80 Heart Rate: [75-83] Blood Pressure BP: 127/71 BP: (110-144)/(69-92) Respiratory Rate Resp: 18 Resp: [18-27] SpO2 SpO2: 98 % SpO2: [94 %-99 %] GEN- Awake and alert. Able to state age and month. Able to follow simple commands. Mild dysarthria CN- RIGHT gaze preference improved from yesterday, left visual neglect, no clear facial asymmetry recognized MOTOR- RUE/RLE: 5/ LUE: drifts down, but able to sustain gravity for 10 seconds LLE: 3 SENSATION - +extinction to BSS CEREBELLUM - FTN intact on RUE, LT-sided off-target on FTN, HTS intact CV/PULM - normal WOB DATA I/O last 3 completed shifts: In: 1560 [P.O.:1550; I.V.:10] Out: 2260 [Urine:2260] Labs Recent Labs 02/27/24 0630 02/26/24 0004 02/25/24 0106 02/24/24 1331 02/24/24 0302 WBC 5.78 5.76 5.55 4.94 5.20 HGB 10.5* 10.6* 10.9* 10.5* 11.3* HCT 30.5* 31.0* 31.6* 30.7* 33.2* PLATELET 179 186 173 172 151 NEUTROABS 3.84 4.09 3.95 3.38 3.74 Recent Labs 02/27/24 0630 02/26/24 0004 02/25/24 1312 02/25/24 0106 02/24/24 1331 NA 128* 129* 129* 130* 126* K 4.3 4.5 4.4 4.3 4.2 CL 95* 94* 94* 95* 95* CO2 22 23 22 22 20* BUN 11 11 11 13 11 CREATININE 1.00 0.97 1.00 1.00 1.05 GLUCOSE 138 182 171 112 137 Recent Labs 02/27/24 0602/26/24 0004 02/25/24 1312 02/25/24 0106 CALCIUM 9.0 8.9 9.4 9.4 MAGNESIUM 0.63* 0.79 -- 0.63* No results for input(s): AST, ALT, ALKPHOS, BILITOT, BILIDIR, LDH in the last 168 hours. No results for input(s): TROPONINT, CK in the last 168 hours. No results for input(s): PHART, SWS9OMA, PO2ART, MJR4PPG in the last 168 hours. Recent Labs 02/24/24 1325 INR 1.1 Lipid Panel Lab Results Component Value Date CHLPL 91 02/24/2024 HDL 32 02/24/2024 TRIG 122 02/24/2024 LDLCHOL 37 02/24/2024 Lab Results Component Value Date HA1C 8.3 (H) 02/24/2024 Micro - cultures/sensitivities UCx - None CSF - None Blood Cx - None Resp Cx - None Imaging/EKG CTH 02/25/2024: IMPRESSION No acute intracranial hemorrhage, mass effect, or large territorial abnormality identified. ASSESSMENT & PLAN Johnsonfernanda Bojorquezx 73 y.o. male with PMHx ASCVD s/p CABG x 3 (MCKEON --> LAD, SVG --> OM1 -->D1) and RCA PCI (06/2023), severe s/p AVR (05/2020), DM2, HTN, HLD who initially presented on 02/22 with chest pressure and light-headedness concerning for ACS, now with dysarthria and left hemiparesis found to have acute distal R QUANTOMETER OPERATOR occlusion now in the setting of severe R ICA stenosis s/p tPA v ersus clara-procedural stroke. 02/27/24 Patient remains neurologically stable. Etiology possibly due to hypotension/hypoperfusion during cardiac cath from right ICA stenosis versus symptomatic ICA stenosis. Continue DAPT with DAPT for at least 90 days for possible symptomatic carotid stenosis per CREST, as well as high intensity statin and Zetia. DAPT beyond 90 days depending on cardiology follow-up. Patient is medically ready at this time and awaiting placement at [facility]. 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 #Infarcts of posterior right temporal lobe and adjacent thalamus - neuro checks/VS Q4 - Continue Aspirin 81mg daily, Plavix 75mg daily (will continue for 90 days at least, will defer tocardiology outpatient about DAPT past 90 days) - PT/OT #CV - wi >NSTEMI s/p cardiac catherization w/o intervention 02/23 - LDL 37 --> Rosuvastatin 40mg daily - Continue Zetia 10mg daily - Continue Metoprolol 100mg BID - Will need to follow-up with cardiology at time of discharge #Pulm - - goal SpO2> 94% - IS at bedside - nebs PRN #GI - - follow up POLE INSPECTOR recs - Daily Healthy Menu Choices/Cardiac diet ([facility] [place]-Diet) 60/60/75 CHO counting level 2 - maintain bowel reg - Protonix 40mg #FEN/ - >Hyponatremia - maintain euvolemia, I=O - defer work-up to outpatient setting # Heme - - goal Hgb > 7, INR < 1.5, Platelets > 50k - DVT ppx:SCDs # Endo - - goal glucose 120-180 --> ISS Recent Labs 02/24/24 0302 HA1C 8.3* - TSH 2.07 # ID - >question of left foot cellulitis -Keflex 500mg QID (02/24-03/01) - for temp > 38C --> UA, CXR, blood cx, sputum cx - tylenol PRN # Other - Activity: as tolerated - Dispo: pending course - Last BM: Last Bowel Movement: 02/23/24 - code status: Attempt Cardiopulmonary Resuscitation - Inpatient Patient Lines/Drains/Airways Status Active Tubes/Lines/Drains Name Placement date Placement time Site Days PIV 02/23/241999 18 gauge cephalic vein (lateral side of arm), left 02/23/241999 -- 4 PIV 02/23/241999 20 gauge basilic vein (medial side of arm), right 02/23/241999 -- 4 Urethral Catheter 02/24/24 1500 silicone coated 14 02/24/24 1500 -- 3 Please page Vascular Neurology with any questions, #[id number] Associated attestation - Kd Huggins MD - 02/27/2024 11:02 PM EDT Neurology Staff Note I have reviewed the resident's history during the visit and I agree with the details as written. Myphysical examination confirms the resident's findings. The assessment and plan were formulated in discussion with me at the time of the visit and I agree with them as documented. No new issues, has good recall of 3 cards and their suits when testing visual memory. Some visual neglect on left side when describing a picture. Updated his . Awaiting tx for inpt rehab * Beronica Marte, PT - 02/26/2024 11:48 AM EDT Physical Therapy Evaluation Patient profile: Johnson Tobar is a 73 y.o. male with PMHx of ASCVD s/p CABG x 3 (MCKEON --> LAD, SVG --> OM1 --> D1) and RCA PCI (06/2023), severe s/p AVR (05/2020), DM2, HTN, HLD who initially presented on 02/22 with chest pressure and light-headedness concerning for ACS. Pt was admitted to Cardiology service and initiated on heparin gtt. Earlier today, he was taken to the asset availability leader, though no intervention required. After procedure, patient noted to have RIGHT gaze preference, dysarthria, left tongue deviation, and LEFT hemibody weakness. Pt is now s/p tPA. Patient with the following active problems: Past Medical History: Diagnosis Date Gastroesophageal reflux controlled with medication Heart valve disease High blood pressure treated with medication Myocardial infarction Peptic ulcer disease >15 yrs ago S/P AVR (aortic valve replacement) 06/13/2020 Type 2 diabetes mellitus 2014 Type 2 diabetes mellitus, without long-term current use of insulin 06/15/2020 Active Non-Hospital Problems Diagnosis Type 2 diabetes mellitus, without long-term current use of insulin S/P CABG (coronary artery bypass graft) S/P AVR (aortic valve replacement) CAD (coronary artery disease) Aortic valve stenosis Type 2 diabetes mellitus ASCVD (arteriosclerotic cardiovascular disease) HTN (hypertension) DJD (degenerative joint disease) Elevated cholesterol Aortic stenosis Past Surgical History: Procedure Laterality Date CORONARY ANGIOPLASTY WITH STENT PLACEMENT 1997 PRG CATH PLMT LEFT HEART CATH & ARTS W/INJ & ANGIO IMG S&I N/A 05/17/2023 CORONARY ANGIOGRAPHY; W LHC,POSSIBLE PCI (WRVU 5.6) performed by Avani Danielle MD at [facility] CATHLABS PRG CATH PLMT LEFT HEART CATH & ARTS W/INJ & ANGIO IMG S&I N/A 06/26/2023 CORONARY ANGIOGRAPHY; W LHC,POSSIBLE PCI (WRVU 5.6) performed by Avani Danielle MD at [facility] CATHLABS PRO CABG, ARTERIAL, SINGLE Left 06/13/2020 @CABG, USING ARTERIAL GRAFT;SINGLE ARTERIAL GRAFT (WRVU 33.75) performed by Chun Wiley MD at [facility] MAIN OR PRO CABG, ARTERY-VEIN, TWO N/A 06/13/2020 @CABG, TWO VENOUS GRAFTS & ARTERIAL GRAFT (WRVU 7.93) performed by Chun Wiley MD at [facility] MAIN OR PRO ENDOSCOPY W/VIDEO-ASST VEIN HARVEST, CABG Right 06/13/2020 ENDOSCOPIC HARVEST VEIN(S) FOR CABG (WRVU 0.31) performed by Chun Wiley MD at [facility] MAIN OR PRO PERC TRLUML CORONARY STENT W/ANGIO ADDL ART/BRANCH N/A 06/26/2023 STENT PLACEMENT-EACH ADDITIONAL BRANCH OF A MAJOR CORONARY ARTERY (WRVU *) performed by Avani Danielle MD at [facility] CATH LABS PRO PERC TRLUML CORONARY STENT W/ANGIO ONE ART/BRANCH N/A 06/26/2023 STENT PLACEMENT-SINGLE MAJOR CORONARY ARTERY OR BRANCH (WRVU 10.96) performed by Avani Danielle MD at [facility] CATH LABS PRO REPLACEMENT PROSTHETIC AORTIC VALVE OPEN W CARDIOPULMONARY BYPASS HOMOGRF/STENT N/A 06/13/2020 @REPLACE AORTIC VALVE, OPEN, W\CPB, W\PROSTHETIC VALVE (WRVU 41.32) performed by Chun Wiley MD at [facility] MAIN OR Social History: Home set-up: Pt lives with his Emili in a multi-level home. The bathroom is on the 1st level, and the bedroom is on the 2nd. He could sleep downstairs if necessary. Bathroom Set-up: walk-in shower Stairs: 4STE with rail Baseline Mobility: Pt is typically independent with all ADLs, IADLs, and mobility at baseline. He ambulates without a device and drives. He is retired. Equipment at home: none reported Fall history: had a syncopal fall on Saturday which prompted presentation to hospital Precautions/Special Considerations: at risk to fall, bleeding precautions, s/p tPA, SBP<180, HOB>30*, L inattention Lines: PIV, dixon catheter, tele Activity Orders: activity as tolerated Diet: cardiac diet Mobility and Positioning Recommendations: Pt. to utilize 2 assist and handhold for transfers with nursing. Please encourage up to chair for meal times as able. Subjective: ???Hi!?? Objective: Pt seen for evaluation today. Pain: No c/o pain Vital Signs: At Rest SpO2 (RA) 96% HR 77bpm Mental Status: lethargic initially but more alert once transferred to EOB. Oriented to person, place, and time. Pleasant and cooperative. Decreased insight into deficits. L inattention. Vision: corrective lenses for reading, L inattention, cues for scanning Skin: visible skin appears intact Musculoskeletal: ROM: WFL Strength: L sided weakness, LLE ~3-4/5, RLE 5/5 Sensation: not formally assessed Bed Mobility: Supine to Sit: mod assist x2, HOB elevated, impaired sequencing and initiation of task Sit to Supine: NA Transfers: Sit to Stand: min assist x2 with B handhold Stand to Sit: min assist x2, poor ecc control and spatial awareness Bed to Chair: stand-step transfer with mod assist x2, impaired advancement of LLE, L knee buckling,L inattention, min foot clearance. Gait: Distance: ~5' x 2 Device used: B handhold Level of assist: min-mod assist x2 Gait mechanics: demo's dec gait speed, narrow JAH, poor spatial awareness, L inattention, L knee buckling in stance phase. Max cues for sequencing and attention to task Stairs: NA Balance: Sitting Static: poor, demo's pushing towards L side, difficulty correcting despite max cues Sitting Dynamic: poor Standing Static: poor, requires min assist x2 with handhold to maintain, heavy reliance on UE support, poor awareness of LLE and L knee buckling noted in stance Standing Dynamic / Gait: poor, min-mod assist x2 for gait and transfers Education: patient and significant other have been educated on Bed mobility, Transfers, Positioning, Safety , Precautions/protocol, Gait , Activity pacing/Energy conservation, Role of therapy, Balance, and Discharge planning and will benefit from reinforcement. Patient status, treatment, and mobility recommendations discussed with nursing. Assessment: Johnson Tobar was seen today for physical therapy evaluation. Pt initially presented to for LHness and chest pressure with concern for ACS and taken to asset availability leader. No intervention was required, and after asset availability leader patient was found to have RIGHT gaze preference, dysarthria, left tongue deviation, and LEFT hemibody weakness, now s/p tPA. Pt was somewhat lethargic but cooperative with PT this day. His reports a significant improvement in his sx after tPA. Upon evaluation, patient presents with decreased strength, impaired balance, impaired activity tolerance, impaired gait mechanics, impaired endurance, impaired attention, impaired safety awareness, impaired posture, and decreased insight, resulting in significant functional limitation. Despite post- tPA improvement, pt continues to present with marked deficits, and is clearly below his functional baseline. Would highly recommend d/c to acute rehab facility in order to maximize function and safety and address multidisciplinary impairments. Will continue to work towards functional goals while pt remains in-house. The pt would benefit from skilled therapy services while in the hospital to maximize functional abilities. Discharge Recommendations: Based on the current findings, Anticipated Discharge Disposition (PT): acute rehabilitation facility when medically ready for hospital discharge. Discharge recommendation is based on the patient's current physical impairments, prior functional status, potential to return to prior level of function, patient motivation, reported home support, potential for functional gains, current level of endurance, reported home environment and anticipated trajectory of progress and may change based on patient progress during this hospitalization. Consult Recommendations: No other consults recommended at this time. Equipment needs: Anticipated Equipment Needs at Discharge (PT): to be determined Goals: To be achieved by 03/11/24: Pt. to demonstrate knowledge of safety limitations and precautions and will appropriately request assistance for functional activities and to mobilize. Pt. to perform bed mobility with supervision. Pt. to perform sit<>stand transfers with supervision using LRAD. Pt. to ambulate 50 feet with CGA using LRAD. Pt. to ambulate up/down 2 step/stairs using one rail and one hand hold with CGA. Family or caregiver to demonstrate understanding of therapeutic interventions to support the care of the patient. Plan: Therapy Frequency (PT): 2-4 times/wk for therapy including balance training, bed mobility training, gait training, motor coordination training, neuromuscular re-education, patient/family education, postural re-education, stair training, strengthening, and transfer training. Patient/family understand and agree with plan as stated above. 2017 PT Evaluation Code Rationale: Diagnosis & Pertinent Co-Morbidities, personal factors, and present illness affecting Plan of Care: (see above); Additional personal factors or co- morbidities that impact plan: Total # of Factors: 0 1-2 3+ X Examination of body system impairments, functional limitations and behaviors, and/or participation restrictions. Addressing 1-2 elements Addressing 3 + elements X Addressing 4 + elements Clinical presentation: See assessment above. Stable/Uncomplicated Evolving/Fluctuating Symptoms Unstable/Unpredictable X- L inattention, dec insight, L sided weakness Clinical decision making of moderate complexity based on pt's functional performance as outlined inthis evaluation. Time IN / OUT: 6242-7115 Total Minutes, Physical Therapy: 29 Billing Code: mod complexity eval Beronica Marte PT, DPT, NCS Pager: [phone] Physical Therapy Inpatient Rehabilitation Department * Rqauel Mims OT - 02/26/2024 11:12 AM EDT Occupational Therapy Evaluation Patient profile: Patient profile: Johnson Tobar is a 73 y.o. male with PMHx of ASCVD s/p CABG x 3 (MCKEON --> LAD, SVG --> OM1 --> D1) and RCA PCI (06/2023), severe s/p AVR (05/2020), DM2, HTN, HLD who initially presented on 02/22 with chest pressure and light-headedness concerning for ACS. Pt was admitted to Cardiology service and initiated on heparin gtt. Earlier today, he was taken to the asset availability leader, though no intervention required. After procedure, patient noted to have RIGHT gaze preference, dysarthria, left tongue deviation, and LEFT hemibody weakness. Pt is now s/p tPA. Patient with the following active problems: Past Medical History Past Medical History: Diagnosis Date Gastroesophageal reflux controlled with medication Heart valve disease High blood pressure treated with medication Myocardial infarction Peptic ulcer disease >15 yrs ago S/P AVR (aortic valve replacement) 06/13/2020 Type 2 diabetes mellitus 2014 Type 2 diabetes mellitus, without long-term current use of insulin 06/15/2020 Active Non-Hospital Problems Diagnosis Type 2 diabetes mellitus, without long-term current use of insulin S/P CABG (coronary artery bypass graft) S/P AVR (aortic valve replacement) CAD (coronary artery disease) Aortic valve stenosis Type 2 diabetes mellitus ASCVD (arteriosclerotic cardiovascular disease) HTN (hypertension) DJD (degenerative joint disease) Elevated cholesterol Aortic stenosis Past Surgical History Past Surgical History: Procedure Laterality Date CORONARY ANGIOPLASTY WITH STENT PLACEMENT [address] [facility] LEFT HEART CATH & ARTS W/INJ & ANGIO IMG S&I N/A 05/17/2023 CORONARY ANGIOGRAPHY; W [facility],POSSIBLE PCI (WRVU 5.6) performed by Avani Danielle MD at [facility] CATHLABS PRG CATH PLAL LEFT HEART CATH & ARTS W/INJ & ANGIO IMG S&I N/A 06/26/2023 CORONARY ANGIOGRAPHY; W [facility],POSSIBLE PCI (WRVU 5.6) performed by Avani Danielle MD at [facility] CATHLABS PRO CABG, ARTERIAL, SINGLE Left 06/13/2020 @CABG, USING ARTERIAL GRAFT;SINGLE ARTERIAL GRAFT (WRVU 33.75) performed by Chun Wiley MD at [facility] MAIN OR PRO CABG, ARTERY-VEIN, TWO N/A 06/13/2020 @CABG, TWO VENOUS GRAFTS & ARTERIAL GRAFT (WRVU 7.93) performed by Chun Wiley MD at [facility] MAIN OR PRO ENDOSCOPY W/VIDEO-ASST VEIN HARVEST, CABG Right 06/13/2020 ENDOSCOPIC HARVEST VEIN(S) FOR CABG (WRVU 0.31) performed by Chun Wiley MD at [facility] MAIN OR PRO PERC TRLUML CORONARY STENT W/ANGIO ADDL ART/BRANCH N/A 06/26/2023 STENT PLACEMENT-EACH ADDITIONAL BRANCH OF A MAJOR CORONARY ARTERY (WRVU *) performed by Avani Danielle MD at [facility] CATH LABS PRO PERC TRLUML CORONARY STENT W/ANGIO ONE ART/BRANCH N/A 06/26/2023 STENT PLACEMENT-SINGLE MAJOR CORONARY ARTERY OR BRANCH (WRVU 10.96) performed by Avani Danielle MD at [facility] CATH LABS PRO REPLACEMENT PROSTHETIC AORTIC VALVE OPEN W CARDIOPULMONARY BYPASS HOMOGRF/STENT N/A 06/13/2020 @REPLACE AORTIC VALVE, OPEN, W\CPB, W\PROSTHETIC VALVE (WRVU 41.32) performed by Chun Wiley MD at [facility] MAIN OR Social History: Home set-up: Pt lives with his Emili in a multi-level home. The bathroom is on the 1st level, and the bedroom is on the 2nd. He could sleep downstairs if necessary. Bathroom Set-up: walk-in shower Stairs: 4STE with rail Baseline Mobility: Pt is typically independent with all ADLs, IADLs, and mobility at baseline. He ambulates without a device and drives. He is retired. Equipment at home: none reported Fall history: had a syncopal fall on Saturday which prompted presentation to hospital Precautions/Special Considerations: at risk to fall, bleeding precautions, s/p tPA, SBP<180, HOB>30*, L inattention Lines: PIV, dixon catheter, tele Activity Orders: activity as tolerated Diet: cardiac diet Objective: Seen today for OT evaluation Vital Signs: SpO2: 93-97% on RA HR: 78 bpm BP: 140's/70's Pain: no c/o pain Cognitive Status/Behavior: Behavior / Mood: alert and cooperative Orientation: person and place, month, year Follows commands: 1 step and 100% of the time with multi modal cues and extra time, two step commands 50% of the time Attention: requires cues to redirect Safety awareness: decreased insight into deficits RASS: 0 Pleasant and motivated, very eager to participate Vision & Perception: L inattention, able to track and scan to L with multi modal cues, corrective lenses for reading Hearing: WFL Communication: WFL, extra time required Musculoskeletal: Hand dominance: right ROM: B UE and LE functional Strength: L UE shoulder flexion 4/5, elbow extension and flexion 4/5, grasp 4/5, L LE ~4/5 throughout Sensation: intact Activities of Daily Living: Self-feeding: set up A to eat breakfast (per ), instructed pt's in clock method for self-feeding and multi modal cues Grooming: standing at sink with max A for balance, maximal cues for task initiation and sequencing,set up A for oral care and UB grooming Dressing: maximal A to don socks seated EOB Bathing: not tested Toileting: min A transfer, set up/cues hygiene Functional Mobility: Supine to sit: moderate A x 2 with multi modal cues Sit to stand: minimal A x 2 with multi modal cues, bilateral hand hold assist Transfer: minimal A x 2 with multi modal cues, bilateral hand hold assist Ambulation: minimal-moderate A x 2 with multi modal cues (particularly for vision), bilateral hand hold assist Stand to sit: min A x 2 Sit to supine: not tested Pt left sitting upright in recliner chair with call blanco within reach and patients positioned on L side to encourage L attention Education: Plan of care , Activity tolerance, Positioning, Safety during ADL's and functional mobility , Alternating rest/activity , Increased participation in self-care and ADL's within hospital environment , and Discharge planning. Patients educated on L inattention and strategies for encouraging L attention and use of L UE. Pt's verbalized understanding. Patient verbalized/demonstrated understanding. Patient status, treatment, and activity/mobility recommendations discussed with nursing before, during, and after treatment session. Assessment: Pt has been seen for occupational therapy evaluation. Johnson Tobar presents with the following performance skill deficits and client factors: decreased activity tolerance, decreased strength, decreased sitting/standing balance, visual deficits, sensory deficits, precautions/bracing, and compromised mobility status. These performance deficits have led to activity limitations and participation restrictions in the following areas of occupation: dressing, bathing, grooming, toileting, self- feeding, transfers/mobility, home management, work, leisure participation, driving, community mobility, communication, social participation, and health management. Johnson tolerated session anddemonstrates good underlying strength and coordination. He demonstrates L inattention, however, wasable to track, scan, and localize on L side with multi modal cues. He independently incorporated L UE into self-care tasks 3x. Pt and were educated extensively on importance fo acute rehab, strategies for L inattention, and increasing functional use of L UE. Pt will benefit from intensive acute rehab with OT, PT, and POLE INSPECTOR to maximize independence and safety. Pt would benefit from further inpatient OT interventions to address performance deficits and maximize participation, independence and safety with activities of daily living. Equipment Recommendations: Anticipated Discharge Disposition (OT): acute rehabilitation facility Other Recommendations: Utilize upright chair position using bed features or transfer to recliner chair as appropriate withmin A x 2 Encourage participation in ADL's by providing set up assist on tray table and physical assist only as needed Promote normalcy by encouraging participation in common daily tasks & leisure activities by providing set up assist Frequent orientation verbally & visually with calendars/clocks/whiteboard Facilitate a normal sleep-wake cycle (minimize nighttime distractions when possible, lights on/shades up during the day) Provide brief, clear instructions and directions from one source at a time Consult Recommendations: No other consults recommended at this time EPM Level 5: Ambulate, Participate in self care Goals: To be achieved by 03/12/24 Patient will consistently be oriented x 4 and CAM (-) Patient will complete grooming tasks standing at sink with set up, sbA and minimal multi modal cues Patient will complete commode/toilet transfer with sbA Patient will complete bowel/bladder hygiene independently Patient will ambulate functional household distances to bathroom & kitchenette with sbA Patient will don/doff UB & LB clothing sitting EOB or upright in chair with set up A only Patient will visually locate cued stimulus and track to all quadrants on a consistent basis Patient will demonstrate increased awareness of environment as evidence by independent carryover/use of scanning techniques and safe negotiation of obstacles during functional mobility and self care tasks within hospital environment Patient will perform self feeding modified independent with use of clock method and contrast enhancement OT: Therapy Frequency (OT): 2-3 times/wk Planned OT interventions: Role of occupational therapy/rehabilitation, Transfers, Assistive device/technique, Adaptive equipment training, ADL, Exercise, Breathing exercises, Positioning, Safety, Precautions/Protocol, Brace Management, Car Transfers, Functional Mobility, Activity pacing/Energy conse rvation, Home Program, Home Management, Balance, Recommendations, Family training, and Discharge planning. 2017 OT Evaluation Code Rationale: Diagnosis & Pertinent Co-Morbidities affecting Plan of Care: see PMHx Occupational Profile & Client History: Brief Expanded Extensive x Assessment of Occupational Performance: 1-3 performance deficits 3-5 performance deficits 5 + performance deficits x Clinical Decision Making: Low Moderate High x Clinical decision making of high complexity using standardized patient assessment instrument and measurable assessment of functional outcome. Time IN / OUT: 11:15-11:55 40 minutes Thank you for this consult. Shahida Mims, OT Pager: [phone] * Rachel Saenz, JULIO - 02/26/2024 9:59 AM EDT Speech Therapy Clinical Swallow Evaluation Patient Profile: Johnson Tobar is a 73 y.o. male with PMHx of ASCVD s/p CABG x 3 (MCKEON --> LAD, SVG --> OM1 --> D1) and RCA PCI (06/2023), severe s/p AVR (05/2020), DM2, HTN, HLD who initially presented on 02/22 with chest pressure and light-headedness concerning for ACS. Pt was admitted to Cardiology service and initiated on heparin gtt. Earlier today, he was taken to the asset availability leader, though no intervention required. After procedure, patient noted to have RIGHT gaze preference, dysarthria, left tongue deviation, and LEFT hemibody weakness. Transferred to NCCU s/p TPA. Prior Level of Swallow Function: WNL Subjective: Alert, sitting up in bed finishing regular breakfast tray. present and supportive.Pt denies having any further speech or swallowing issues this AM. My speech is fine, I'm just Chinese. Objective: Pt seen for evaluation today. Pain: Patient in no acute observed discomfort. Respiratory Status: Room air saturating at 98%. Vision: Functional for evaluation, not formally assessed Hearing: Functional for evaluation Current Diet: Daily Healthy Menu Choices/Cardiac diet ([place] [facility] [place]-Diet) 60/60/75 CHO counting level 2 Feeding and Oral Care: Pt is independent Cognitive-Linguistic Status: Baseline cognition Orientation Log Score: Positioning: HOB at 80 degrees Oral Motor Exam: WFL Impaired Comments STRUCTURES Facial Symmetry x Lips x Tongue x Jaw x Palate/Velum x Dentition x OTHER Phonation x Intelligibility x Volitional Cough x Sensation x Secretion Management x Bolus Presentation(s) Tested Comments Thin liquids x [place] thick liquids Honey thick liquids Pureed solids Dysphagia soft x Mechanical soft Regular solids x Pills Other Oral Preparatory Phase Mastication: WNL Oral Transit: WNL Bolus Cohesion: WNL Oral Containment: WNL, no anterior spillage Oral Stasis: Not noted Pharyngeal Phase Laryngeal Elevation: Appears prompt and adequate to palpation Vocal quality change: Not noted Cough / throat clear: Not noted Pt. complaint of food getting stuck: Pt denies Fatigue across trials: Not noted Respiratory rate and respiratory swallow pattern: No changes noted Esophageal Phase Appears to be WFL, No overt clinical s/s of esophageal phase dysphagia noted during this evaluation. Compensatory Techniques: None needed to support safe swallow. Education: Patient, Family educated on role of the POLE INSPECTOR and findings and plan of care. Patient status, treatment and swallow recommendations were discussed with nursing. Assessment: Pt w/ reported visual disturbance, facial weakness, dysarthria and hemiparesis on 02/25/24 s/p asset availability leader. TPA given. This AM pt's oral motor exam appears WFL. Speech is clear. No s/s dysphagia noted, tolerating regular diet, ate 100% breakfast w/o issues. confirms that pt's speech isback to baseline and pt denies any word finding issues or difficulty understanding speech. Diagnosis: Baseline speech and swallow function Recommendations: Diet: Regular solids, Thin liquids PO medications: whole with sip of liquid Aspiration precautions: Upright position during meals and for at least 30 mins following Excellent oral care x2/day recommended to prevent oral bacterial growth, oral built up of dried secretions and reduce risk for aspiration pneumonia Do not anticipate need from POLE INSPECTOR services in discharge location. Speech Therapy Goals: (To be met by discharge) Pt will maintain hydration / nutrition with optimal safety and efficiency. NEW Monitor for further acute changes in speech or swallow during hospitalization NEW Plan: Therapy Frequency (POLE INSPECTOR Eval): 1-3 times/wk Pt./family are in agreement with treatment plan. Total Minutes (Speech Language Pathology): 20 Thank you for this consult with this patient. Please feel free to page me with any questions or concerns. Rachel Saenz MA, [facility]-POLE INSPECTOR Pager: [phone] Speech-Language Pathology Inpatient Rehabilitation Medicine * Yyaa Hunter MD - 02/26/2024 7:34 AM EDT Images from the original note were not included. VASCULAR NEUROLOGY PROGRESS NOTE Admit Date 02/23/2024 Responsible Attending: Arti Griffin MD Primary Provider: RASHEL Do [phone] Hospital Day: Hospital Day: 4 Patient ID 73 y.o. male with PMHx of ASCVD s/p CABG x 3 (MCKEON --> LAD, SVG --> OM1 --> D1) and RCA PCI (06/2023), severe s/p AVR (05/2020), DM2, HTN, HLD who initially presented on 02/22 with chest pressure and light-headedness concerning for ACS. Pt was admitted to Cardiology service and initiatedon heparin gtt. Earlier today, he was taken to the asset availability leader, though no intervention required. After procedure, patient noted to have RIGHT gaze preference, dysarthria, left tongue deviation, and LEFThemibody weakness. 24hr Events: - Patient reports that he feels ok overall. states that he continues to show improvement sincetime of initial presentation. EXAM Last value Range last 24 hrs Temperature Temp: 37.1 ??C (98.8 ??F) Temp: [37 ??C (98.6 ??F)-38.4 ??C (101.1 ??F)] Heart Rate Heart Rate: 87 Heart Rate: [74-99] Blood Pressure BP: (!) 110/94 BP: (110-145)/(72-96) Respiratory Rate Resp: 24 Resp: [17-25] SpO2 SpO2: 98 % SpO2: [93 %-99 %] GEN- Awake and alert. Able to state age and month. Able to follow simple commands. Mild dysarthria CN- RIGHT gaze preference improved from yesterday, left visual neglect, no clear facial asymmetry recognized MOTOR- RUE/RLE: 5/5 LUE: drifts down, but able to sustain gravity for 10 seconds LLE: 3/5 SENSATION - +extinction to BSS CEREBELLUM - FTN intact on RUE, HTS intact CV/PULM - normal WOB DATA I/O last 3 completed shifts: In: 1320 [P.O.:1040; I.V.:280] Out: 1575 [Urine:1575] Labs Recent Labs 02/26/24 0004 02/25/24 0106 02/24/24 1331 02/24/24 0302 02/23/24 2137 WBC 5.76 5.55 4.94 5.20 5.78 HGB 10.6* 10.9* 10.5* 11.3* 11.7* HCT 31.0* 31.6* 30.7* 33.2* 34.5* PLATELET 186 173 172 151 158 NEUTROABS 4.09 3.95 3.38 3.74 4.24 Recent Labs 02/26/24 0004 02/25/24 1312 02/25/24 0106 02/24/24 1331 02/24/24 0302 NA 129* 129* 130* 126* 131* K 4.5 4.4 4.3 4.2 4.0 CL 94* 94* 95* 95* 96* CO2 23 22 22 20* 19* BUN 11 11 13 11 12 CREATININE 0.97 1.00 1.00 1.05 0.95 GLUCOSE 182 171 112 137 88 Recent Labs 02/26/24 0004 02/25/24 1312 02/25/24 0106 02/24/24 1331 02/24/24 0302 CALCIUM 8.9 9.4 9.4 < > 9.7 MAGNESIUM 0.79 -- 0.63* -- 0.44* < > = values in this interval not displayed. No results for input(s): AST, ALT, ALKPHOS, BILITOT, BILIDIR, LDH in the last 168 hours. No results for input(s): TROPONINT, CK in the last 168 hours. No results for input(s): PHART, MHR8PQB, PO2ART, DWG7DAK in the last 168 hours. Recent Labs 02/24/24 1325 02/24/24 0302 INR 1.1 1.1 Lipid Panel Lab Results Component Value Date CHLPL 91 02/24/2024 HDL 32 02/24/2024 TRIG 122 02/24/2024 LDLCHOL 37 02/24/2024 Lab Results Component Value Date HA1C 8.3 (H) 02/24/2024 Micro - cultures/sensitivities UCx - None CSF - None Blood Cx - None Resp Cx - None Imaging/EKG CTH 02/25/2024: IMPRESSION No acute intracranial hemorrhage, mass effect, or large territorial abnormality identified. ASSESSMENT & PLAN Johnson R Ekaterina 73 y.o. male with PMHx ASCVD s/p CABG x 3 (MCKEON --> LAD, SVG --> OM1 -->D1) and RCA PCI (06/2023), severe s/p AVR (05/2020), DM2, HTN, HLD who initially presented on 02/22 with chest pressure and light-headedness concerning for ACS, now with dysarthria and left hemiparesis found to have acute distal R QUANTOMETER OPERATOR occlusion now in the setting of severe R ICA stenosis s/p tPA. 02/26/24 Patient remains neurologically stable. Etiology possibly due to hypotension/hypoperfusion during cardiac cath from right ICA stenosis versus symptomatic ICA stenosis. Continue DAPT with aspirin and plavix and high intensity statin and Zetia. Patient is also pending PT/OT evaluation at this time. 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 #Infarcts of posterior right temporal lobe and adjacent thalamus - neuro checks/VS Q4 - HOB > 30 deg - obtain MRI brain wo - obtain NCHCT 24h post-alteplase to evaluate for any hemorrhage - Continue Aspirin 81mg daily - Continue Plavix 75mg daily - PT/OT eval and treat #CV - >NSTEMI s/p cardiac catherization w/o intervention 02/23 - strict SBP < 180 x 24h s/p alteplase --> - prn labetalol, hydral if SBP > 180 sustained - TTE - monitor on telemetry for dysrhythmias - check lipid profile --> LDL 37 --> Rosuvastatin 40mg daily -Continue Zetia 10mg daily -Continue Metoprolol 100mg BID -Will need to follow-up with cardiology at time of discharge #Pulm - - goal SpO2> 94% - IS at bedside - nebs PRN #GI - - follow up POLE INSPECTOR recs - Daily Healthy Menu Choices/Cardiac diet ([facility] [place]-Diet) 60/60/75 CHO counting level 2 - maintain bowel reg - Protonix 40mg #FEN/ - >Hyponatremia - maintain euvolemia, I=O - Goal Na 135-145, K > 4, Mg > 1 # Heme - - goal Hgb > 7, INR < 1.5, Platelets > 50k - DVT ppx:SCDs # Endo - - goal glucose 120-180 --> ISS - Recent Labs 02/24/24 0302 HA1C 8.3* - TSH 2.07 # ID - >question of left foot cellulitis -Keflex 500mg QID (02/24-03/01) - for temp > 38C --> UA, CXR, blood cx, sputum cx - tylenol PRN # Other - Activity: as tolerated - Dispo: pending course - Last BM: Last Bowel Movement: 02/23/24 - code status: Attempt Cardiopulmonary Resuscitation - Inpatient Patient Lines/Drains/Airways Status Active Tubes/Lines/Drains Name Placement date Placement time Site Days PIV 02/23/241999 18 gauge cephalic vein (lateral side of arm), left 02/23/241999 -- 3 PIV 02/23/241999 20 gauge basilic vein (medial side of arm), right 02/23/241999 -- 3 Urethral Catheter 02/24/24 1500 silicone coated 14 02/24/24 1500 -- 2 Please page Vascular Neurology with any questions, #[phone] Susanna Cm APRN Department of Neurology [place] [phone] Associated attestation - dK Huggins MD - 02/26/2024 10:22 PM EDT Neurology Staff Note I have reviewed the resident's history during the visit and I agree with the details as written. Myphysical examination confirms the resident's findings. The assessment and plan were formulated in discussion with me at the time of the visit and I agree with them as documented. Reviewed imaging including the QUANTOMETER OPERATOR occlusion. Discussed with Cardiology Cont with DAPT for now and eventually have Cardiology decide if > 90d needed We updated his in the room. Their son is taking care of the haying at the farm now. * Christine Deal, LUCILA - 02/25/2024 3:45 PM EDT Nutrition Consult Note Johnson Tobar is a 73 y.o. male admitted with NSTEMI. Relevant medical history includes ASCVD, HTN, elevated cholesterol, CAD, s/p CABG, T2DM. Reason for Assessment: MST Evaluation Nutrition Recommendations: Continue [facility], CHO 2 diet order. Pt and deny recent weight loss or change in appetite. Please gather new weight. Weight from 02/23 appears inaccurate. No nutrition questions or concerns. Re-consult as needed. Current Nutrition Regimen: Active Orders Diet Daily Healthy Menu Choices/Cardiac diet ([facility] [place]-Diet) 60/60/75 CHO counting level 2 Frequency: Effective Now Number of Occurrences: Until Specified Assessment: Lab Results Component Value Date NA 130 (L) 02/25/2024 NA 137 06/12/2023 K 4.3 02/25/2024 K 4.9 06/12/2023 CL 95 (L) 02/25/2024 CL 99 06/12/2023 CO2 22 02/25/2024 CO2 26 06/12/2023 BUN 13 02/25/2024 BUN 12 06/12/2023 CREATININE 1.00 02/25/2024 CREATININE 0.99 06/12/2023 ESTGFR 80 06/12/2023 MAGNESIUM 0.63 (L) 02/25/2024 CALCIUM 9.4 02/25/2024 CALCIUM 9.7 06/12/2023 TRIG 122 02/24/2024 HA1C 8.3 (H) 02/24/2024 Lab Results Component Value Date POCGLU 143 02/25/2024 POCGLU 123 02/25/2024 POCGLU 252 (H) 02/25/2024 POCGLU 143 02/24/2024 POCGLU 230 (H) 02/24/2024 POCGLU 142 02/24/2024 Patient Lines/Drains/Airways Status Active Nutritional LDAs Name Placement date Placement time Site Days PIV 02/23/241999 18 gauge cephalic vein (lateral side of arm), left 02/23/241999 -- 2 PIV 02/23/241999 20 gauge basilic vein (medial side of arm), right 02/23/241999 -- 2 Urethral Catheter 02/24/24 1500 silicone coated 14 02/24/24 1500 -- 1 Oxygen Therapy / Airway Device: None (Room air) Last Bowel Movement: 02/23/24 Intake/Output Summary (Last 24 hours) at 02/25/2024 1545 Last data filed at 02/25/2024 1400 Gross per 24 hour Intake 880 ml Output 1100 ml Net -220 ml Relevant medications: lispro, protonix Anthropometrics: Admit Weight: 76.7 kg Estimated body mass index is 25.21 kg/m?? as calculated from the following: Height as of this encounter: 170.2 cm (5' 7). Weight as of this encounter: 73 kg (160 lb 15 oz). [place] Body Weight (IBW) (kg): 67.27 Usual Body Weight: 172-175 lbs Wt Readings from Last 10 Encounters: 02/24/24 73 kg (160 lb 15 oz) 02/25/24 77.6 kg (171 lb 1.2 oz) 06/26/23 78 kg (171 lb 14.4 oz) 05/17/23 79.4 kg (175 lb) 07/21/20 80.8 kg (178 lb 3.2 oz) 06/19/20 84 kg (185 lb 3 oz) 06/03/20 79.4 kg (175 lb) 05/26/20 79.5 kg (175 lb 3.2 oz) 05/26/20 79.5 kg (175 lb 3.2 oz) 05/26/20 79.5 kg (175 lb 3.2 oz) Patient Vitals for the past 168 hrs: Weight 02/24/24 1315 73 kg (160 lb 15 oz) 02/24/24 0351 75.2 kg (165 lb 11.2 oz) 02/23/24 2040 76.7 kg (169 lb 1.5 oz) Weight Source: Bed Estimated / Assessed Needs: Kcal / K - 1552 Kcal (18 Kcal/Kg - 20 Kcal/Kg) Estimated Protein Needs: 78 g - 93 g (1.0 g/Kg - 1.2 g/Kg) Nutrition intake and intake history / interview: 02/24: Pt seen for MST evaluation d/t unsure weight loss on admission. Met with patient and at bedside. denies any recent weight loss, stating usual weight of 172-175 lbs. There are two weights documented on 02/23 for 169 lbs and 160 lbs. It appears 160 lbs is inaccurate based on personal report. Pt denies any change to appetite and is happy to be eating again after being NPO for 2 days. No questions or concerns at this time. Nutrition Focused Physical Exam: Not performed Reason NFPE Not Performed: Not indicated. Malnutrition Diagnosis: Not identified (Carlito JPEN J Parenteral Enteral Nutr. 2011; 36(3): 273-83) Nutrition to continue to follow up while inpatient [address] * Fariba Ramirez MD - 02/24/2024 5:29 PM EDT Inpatient Cardiology Progress Note Patient Name: Johnson Tobar Service: CV1 Hospitalist Responsible Attending: Gonzalez Barajas MD Reason for continued hospitalization: Awaiting cardiac catherization Active Problems: Active Hospital Problems Diagnosis NSTEMI (non-ST elevated myocardial infarction) Resolved Hospital Problems No resolved problems to display. Interval History: TINO Denies CP, Sob this am , able to answer appropriately and able to sit up for exam without assistance, no FND deficit noted at that time Posted for [facility] today Post procedure developed Left sided weakness, appeared confused, with right gaze preference, Strokealert was called CTB and CTA with severe QUANTOMETER OPERATOR stenosis, Right ICA stenosis and Moderate-severe rightintradural vertebral artery stenosis. He was given TPA and transferred to Neuro ICU Telemetry: HR: 90 sinus rhythm Meds: Scheduled Meds: insulin lispro 1-6 Units Subcutaneous TID AC Continuous Infusions: niCARdipine PRN Meds:labetaloL, glucose 40% oral geL OR dextrose OR glucagon Physical Exam: Vital Signs: Last value Range last 48 hrs Temperature Temp: 36.7 ??C (98.1 ??F) Temp: [36.7 ??C (98.1 ??F)-37.4 ??C (99.3 ??F)] Heart Rate Heart Rate: 76 Heart Rate: [69-86] Blood Pressure BP: 119/89 BP: (116-147)/(58-111) Respiratory Rate Resp: 18 Resp: [14-24] SpO2 SpO2: 98 % SpO2: [90 %-98 %] Physical Exam Constitutional: Appearance: Normal appearance. HENT: Head: Normocephalic. Right Ear: Tympanic membrane normal. Left Ear: Tympanic membrane normal. Nose: Nose normal. Mouth/Throat: Mouth: Mucous membranes are moist. Eyes: Pupils: Pupils are equal, round, and reactive to light. Cardiovascular: Pulses: Normal pulses. Pulmonary: Effort: Pulmonary effort is normal. Abdominal: General: Abdomen is flat. Bowel sounds are normal. Neurological: Mental Status: He is alert. Lab Comments: Recent Labs 02/24/241 02/24/24 03002/23/242136 WBC 4.94 5.20 5.78 HGB 10.5* 11.3* 11.7* HCT 30.7* 33.2* 34.5* PLATELET 172 151 158 Recent Labs 02/24/24 1325 INR 1.1 Recent Labs 02/24/241 02/24/24 0302 02/23/242136 NA 126* 131* 129* K 4.2 4.0 4.0 CL 95* 96* 94* CO2 20* 19* 20* BUN 11 12 14 CREATININE 1.05 0.95 1.00 No results for input(s): AST, ALT, ALKPHOS, BILITOT, BILIDIR in the last 168 hours. Recent Labs 02/24/24133002/24/2430102/23/242136 CALCIUM 8.7 9.7 9.6 MAGNESIUM -- 0.44* 0.43* Recent Labs 02/24/2430102/23/242136 TROPONINTHS 141* 161* TTE: Interpretation Summary Technically difficult study despite the [...] evaluation with a DEBORAH if clinically indicated. Left heart cath: 06/26/2023- (brought back for planned PCI) atherectomy and stent insertion of the mid RCA lesion and stent insertion of the proximal RCA lesion 05/17/2023- (elective outpatient for angina) 3vCAD, patent MCKEON-LAD, obstructive ds of SVG (y-type) to D2/OM1, subtotal occlusion of midRCA which was heavily calcified w/ L-R collaterals (unable to intervene w/ plan to bring back), jump svg to om1-d1 occluded at origin, there is signficant calcific ds in ostial prox lcx as well as sever calvcified ds in ostium of d1. Recommend PCI of RCA then consideration of further revasc of left system pending sx. Assessment: Johnson Tobar is a 73 y.o. male with a hx of CAD s/p CABGx3 MCKEON->LAD, Seq SVG->OM1->D1 and AVR 23 mm Inspriris bioprosthesis 06/13/2020 for severe , mid and proximal RCA PCI 06/2023, niddm2, HTN, HLD who presented to [facility] with chest pressure and lightheadeness and has been transferred to [facility] [place] for further management for NSTEMI s/p cath with patent MCKEON and stenosis of Left Circumflex, recommended to get a stress test to look for ischemia ,if positivewill need intervention . In development of Stroke post procedure, he was transferred to Neuro ICU post TPA. Plan: #NSTEMI #Significant ASCVD #CABG x 3 # Severe s/p AVR # Mixed moderate MS/MR S/p s/p diagnostic C on 02/24/2024, patent MCKEON however high-grade lesion of left circumflex. Hold antiplatelet for 24 hours s/p tPA On rosuvastatin, ezetimibe, Entresto, Imdur, metoprolol at home Hold Entresto, Imdur, metoprolol Would continue rosuvastatin and acetamide but defer to neurology General Cardiology consultation for stress test timing in the setting of active stroke #Acute right-sided stroke? #R QUANTOMETER OPERATOR occlusion # Severe right ICA occlusion # Moderate to severe right intradural vertebral artery stenosis S/p tPA Blood pressure goal and neurochecks per neurology #Diabetes On metformin at home SSI inpatient # Hyponatremia Pending serum and urine osmolality Consider BMP every 12 Would monitor for cerebral salt wasting syndrome in the setting of acute stroke Ideally sodium goal to be around 140 in the setting of acute stroke. DVT prophylaxis on hold due to tPA Dispo neuro ICU Diet cardiac diet Fariba Ramirez MD 02/24/2024 * Kimmy Mackey RN - 02/24/2024 12:38 PM EDT Preparing to transfer pt., to CRU for recovery from cath procedure. Pt., was having difficulty responding to questions and slow to answer. Dr. Dc and Dr. Chi notified and in procedural room. Neuro exam was concerning. Stroke alert called. Blood glucose obtained and narcan given (see MAR). Pt., transferred to CRU for Life safety to examine. Pt., then transferred to CT scan. documented in this encounter H&P Notes * Arti Griffin MD - 02/25/2024 2:27 PM EDT Images from the original note were not included. VASCULAR NEUROLOGY HEALTH AND PHYSICAL Admit Date 02/23/2024 Responsible Attending: Arti Griffin MD Primary Provider: RASHEL Do [phone] Hospital Day: Hospital Day: 3 Patient ID 73 y.o. male with PMHx of ASCVD s/p CABG x 3 (MCKEON --> LAD, SVG --> OM1 --> D1) and RCA PCI (06/2023), severe s/p AVR (05/2020), DM2, HTN, HLD who initially presented on 02/22 with chest pressure and light-headedness concerning for ACS. Pt was admitted to Cardiology service and initiatedon heparin gtt. Earlier today, he was taken to the asset availability leader, though no intervention required. After procedure, patient noted to have RIGHT gaze preference, dysarthria, left tongue deviation, and LEFThemibody weakness. 24hr Events: - transferred to NCCU s/p TPA yesterday. Stable to downgrade to Vascular neurology today - cVEEG overnight without seizures, epileptiform discharges, rhythmic or periodic patterns were seen - MRI and CUS pending -Tmax 38.4, no leukocytosis, denies respiratory signs/symptoms EXAM Last value Range last 24 hrs Temperature Temp: (!) 38.4 ??C (101.1 ??F) Temp: [36.7 ??C (98.1 ??F)-38.6 ??C (101.5 ??F)] Heart Rate Heart Rate: 87 Heart Rate: [72-103] Blood Pressure BP: 121/81 BP: (107-154)/(58-96) Respiratory Rate Resp: 25 Resp: [15-27] SpO2 SpO2: 96 % SpO2: [92 %-99 %] GEN- Awake and alert. Able to state age and month. Able to follow simple commands.Mild dysarthria CN- RIGHT gaze preference improved from yesterday, left visual neglect, LEFT facial asymmetry resolves with smiling MOTOR- RUE/RLE: 5/5 LUE: drifts down, but able to sustain gravity for 10 seconds LLE: 3/5 SENSATION - +extinction to BSS CEREBELLUM - FTN intact on RUE, HTS intact CV/PULM - normal WOB DATA I/O last 3 completed shifts: In: 595 [P.O.:450; I.V.:145] Out: 1810 [Urine:1810] Labs Recent Labs 02/25/2410502/24/24 1331 02/24/24 03002/23/247 WBC 5.55 4.94 5.20 5.78 HGB 10.9* 10.5* 11.3* 11.7* HCT 31.6* 30.7* 33.2* 34.5* PLATELET 173 172 151 158 NEUTROABS 3.95 3.38 3.74 4.24 Recent Labs 02/25/24 01002/24/24 1331 02/24/24 0302 02/23/247 NA 130* 126* 131* 129* K 4.3 4.2 4.0 4.0 CL 95* 95* 96* 94* CO2 22 20* 19* 20* BUN 13 11 12 14 CREATININE 1.00 1.05 0.95 1.00 GLUCOSE 112 137 88 126 Recent Labs 02/25/24 0106 02/24/24 1331 02/24/24 0302 02/23/24 2137 CALCIUM 9.4 8.7 9.7 9.6 MAGNESIUM 0.63* -- 0.44* 0.43* No results for input(s): AST, ALT, ALKPHOS, BILITOT, BILIDIR, LDH in the last 168 hours. No results for input(s): TROPONINT, CK in the last 168 hours. No results for input(s): PHART, NLW0RDU, PO2ART, GRS1VQY in the last 168 hours. Recent Labs 02/24/24 1325 02/24/24 0302 INR 1.1 1.1 Lipid Panel Lab Results Component Value Date CHLPL 91 02/24/2024 HDL 32 02/24/2024 TRIG 122 02/24/2024 LDLCHOL 37 02/24/2024 Lab Results Component Value Date HA1C 8.3 (H) 02/24/2024 Micro - cultures/sensitivities UCx - None CSF - None Blood Cx - None Resp Cx - None Imaging/EKG CTH 02/25/2024: IMPRESSION No acute intracranial hemorrhage, mass effect, or large territorial abnormality identified. ASSESSMENT & PLAN Johnson Tobar 73 y.o. male with PMHx ASCVD s/p CABG x 3 (MCKEON --> LAD, SVG --> OM1 -->D1) and RCA PCI (06/2023), severe s/p AVR (05/2020), DM2, HTN, HLD who initially presented on 02/22 with chest pressure and light-headedness concerning for ACS, now with dysarthria and left hemiparesis found to have acute distal R QUANTOMETER OPERATOR occlusion now in the setting of severe R ICA stenosis s/p tPA. 02/25/24 Patient remains neurologically stable and is able to downgrade to vascular neurology service, med/surg level of care. Patient is pending brain MRI and suspect acute infarction in RIGHT MCA or borderzone territory. Etiology possibly due to hypotension/hypoperfusion during cardiac cath from right ICAstenosis. Due to CTA finding of severe ALONZO stenosis, bilateral CUS duplex ordered. Continue DAPT with aspirin and plavix and high intensity satin and Zetia. Patient is also pending PT/OT evaluation at this time. #Neuro - Suspected Stroke - neuro checks/VS Q4 - HOB > 30 deg - obtain MRI brain wo - obtain NCHCT 24h post-alteplase to evaluate for any hemorrhage -Continue Aspirin 81mg daily -Continue Plavix 75mg daily - PT/OT eval and treat #CV - >NSTEMI s/p cardiac catherization w/o intervention 02/23 - strict SBP < 180 x 24h s/p alteplase --> - prn labetalol, hydral if SBP > 180 sustained - TTE - monitor on telemetry for dysrhythmias - check lipid profile --> LDL 37 --> Rosuvastatin 40mg daily -Continue Zetia 10mg daily -Continue Metoprolol 100mg BID -Ensure follow up with Cardiology is scheduled at discharge #Pulm - - goal SpO2> 94% - IS at bedside - nebs PRN #GI - - follow up POLE INSPECTOR recs - Daily Healthy Menu Choices/Cardiac diet ([facility] [place]-Diet) 60/60/75 CHO counting level 2 - maintain bowel reg -Protonix 40mg #FEN/ - >Hyponatremia - maintain euvolemia, I=O - Goal Na 135-145, K > 4, Mg > 1 # Heme - - goal Hgb > 7, INR < 1.5, Platelets > 50k - DVT ppx:SCDs # Endo - - goal glucose 120-180 --> ISS - Recent Labs 02/24/24 0302 HA1C 8.3* - TSH 2.07 # ID - >question of left foot cellulitis -Keflex 500mg QID (02/24-03/01) - for temp > 38C --> UA, CXR, blood cx, sputum cx - tylenol PRN # Other - Activity: as tolerated - Dispo: pending course - Last BM: Last Bowel Movement: 02/23/24 - code status: Attempt Cardiopulmonary Resuscitation - Inpatient Patient Lines/Drains/Airways Status Active Tubes/Lines/Drains Name Placement date Placement time Site Days PIV 02/23/241999 18 gauge cephalic vein (lateral side of arm), left 02/23/241999 -- 2 PIV 02/23/241999 20 gauge basilic vein (medial side of arm), right 02/23/241999 -- 2 Urethral Catheter 02/24/24 1500 silicone coated 14 02/24/24 1500 -- 1 Please page Vascular Neurology with any questions, #[id number] Susanna Cm [place] [address] Neurology Attending Attestation Patient accepted in transfer from NCCU to stroke service, step down level of care. I have examined the patient myself and personally reviewed all studies. In addition, I certify that I am a D-H credentialed attending provider with admitting privileges and that the patient meets or has met medical necessity to require an inpatient IPI level of care meeting a minimum of two midnights or is on the [facility] inpatient only procedure list (status C) due to: neurologic instability requiring neurologic checks at least every 4 hours. acute stroke requiring neurologic checks at least every 4 hours. MCCs and CCs on admission (Present if in bold): Clinically significant cerebral edema, vasogenic Hyponatremia CHF acute, systolic Brain compression Hypernatremia CHF acute on chronic, systolic Clinically significant cerebral edema, cytotoxic Cerebellar ataxia CHF acute on chronic, diastolic Coma Hypertension, malignant CHF acute diastolic Hemiplegia Hypertension accelerated CHFchronic diastolic Hemiparesis Hypertensive encephalopathy Dementia with delrium Quadraplegia Malnutrition BMI<19 Dementia with depression Encephalopathy, metabolic Cachexia Alzheimer's Dementia with behavioral disturbance Encephalopathy, toxic Morbid obesity, BMI>40 Anoxic brain damage Encephalopathy, other CKD stage 4 (eGFR 15-30ml/min/1.73m2) Acute Kidney Injury Delirium, drug induced CKD stage 5 or ESRD Arti Griffin MD Vascular Neurology * Marina Schmitz, TAPE RULES PRINTING MACHINE OPERATOR - 02/24/2024 1:37 PM EDT NEUROCRITICAL CARE HISTORY & PHYSICAL Date of Admission: 02/23/2024 8:38 PM HPI: 73 yo male with pmhx of AsCVD s/p CABG x 3 (MCKEON --> LAD, SVG --> OM1 --> D1) and RCAPCI (06/2023), severe s/p AVR (05/2020), DM2, HTN, HLD who initially presented on 02/22 with chest pressure and light-headedness concerning for ACS. Pt was admitted to Cardiology service and initiated on heparin gtt. Earlier today, he was taken to the asset availability leader, though no intervention required. In recovery, pt started to have slurred speech and left hemiparesis, Stroke Alert called. NIHSS 16 (LOC 1, Gaze 1, VF 1, Face 1, LUE 3, LLE 3, Sensory 2, Dysarthria 1, Language 1). CT/CTA showed R QUANTOMETER OPERATOR occlusion and severe R ICA stenosis; decision made to proceed with thrombolysis after discussion with Interventional Cardiology team and pt now s/p tPA at 1420. Admitted to NCCU for further management. ROS: Gen: denies fever, chills, fatigue, malaise, weight loss Eyes: denies blurring, diplopia, vision loss, photophobia CV: denies chest pain, palpitations, lightheadedness, syncope, dyspnea on exertion Resp: denies SOB, cough GI: denies nausea, vomiting, diarrhea, constipation, abdominal pain Neuro: as per HPI; denies weakness, JC, paresthesias, seizures, tremors, vertigo, balance problems Past Medical History: Diagnosis Date Gastroesophageal reflux controlled with medication Heart valve disease High blood pressure treated with medication Myocardial infarction Peptic ulcer disease >15 yrs ago S/P AVR (aortic valve replacement) 06/13/2020 Type 2 diabetes mellitus 2014 Type 2 diabetes mellitus, without long-term current use of insulin 06/15/2020 Past Surgical History: Procedure Laterality Date CORONARY ANGIOPLASTY WITH STENT PLACEMENT 1997 [facility] CATH [facility] LEFT HEART CATH & ARTS W/INJ & ANGIO [facility] S&I N/A 05/17/2023 CORONARY ANGIOGRAPHY; [facility],POSSIBLE PCI (WRVU 5.6) performed by Avani Danielle MD at [facility] CATHLABS LAG CATH [facility] LEFT HEART CATH & ARTS W/INJ & ANGIO [facility] [facility] S&I N/A 06/26/2023 CORONARY ANGIOGRAPHY; [facility],POSSIBLE PCI (WRVU 5.6) performed by Avani Danielle MD at [facility] CATHLAB PRO CABG, ARTERIAL, SINGLE Left 06/13/2020 @CABG, USING ARTERIAL GRAFT;SINGLE ARTERIAL GRAFT (WRVU 33.75) performed by Chun Wiley MD at [facility] MAIN OR PRO CABG, ARTERY-VEIN, TWO N/A 06/13/2020 @CABG, TWO VENOUS GRAFTS & ARTERIAL GRAFT (WRVU 7.93) performed by Chun Wiley MD at [facility] MAIN OR PRO ENDOSCOPY W/VIDEO-ASST VEIN HARVEST, CABG Right 06/13/2020 ENDOSCOPIC HARVEST VEIN(S) FOR CABG (WRVU 0.31) performed by Chun Wiley MD at [facility] MAIN OR PRO PERC TRLUML CORONARY STENT W/ANGIO ADDL ART/BRANCH N/A 06/26/2023 STENT PLACEMENT-EACH ADDITIONAL BRANCH OF A MAJOR CORONARY ARTERY (WRVU *) performed by Avani Danielle MD at [facility] CATH LABS PRO PERC TRLUML CORONARY STENT W/ANGIO ONE ART/BRANCH N/A 06/26/2023 STENT PLACEMENT-SINGLE MAJOR CORONARY ARTERY OR BRANCH (WRVU 10.96) performed by Avani Danielle MD at [facility] CATH LABS PRO REPLACEMENT PROSTHETIC AORTIC VALVE OPEN W CARDIOPULMONARY BYPASS HOMOGRF/STENT N/A 06/13/2020 @REPLACE AORTIC VALVE, OPEN, W\CPB, W\PROSTHETIC VALVE (WRVU 41.32) performed by Chun Wiley MD at [facility] MAIN OR Social History Tobacco Use Smoking status: Never Smokeless tobacco: Never Substance Use Topics Alcohol use: Not Currently Medications Prior to Admission Medication Sig Dispense Refill Last Dose aspirin EC 81 mg EC (DR) tablet Take 81 mg by mouth daily. amLODIPine (Norvasc) 5 mg tablet Take 5 mg by mouth 2 times daily. clopidogreL (Plavix) 75 mg tablet Take 1 tablet by mouth daily. 90 tablet 3 Jardiance 25 mg tablet Take 25 mg by mouth daily. sacubitriL-valsartan (Entresto) 24-26 mg tablet Take by mouth 2 times daily. semaglutide (Ozempic) 0.25 mg or 0.5 mg (2 mg/3 mL) Pen Injector Inject 0.5 mg subcutaneously. multivitamin (THERAGRAN) Tablet Take 1 tablet by mouth daily. metoprolol tartrate (Lopressor) 100 mg Tablet Take 1 tablet by mouth 2 times daily. 60 tablet 1 acetaminophen (Tylenol) 500 mg Tablet Take 2 tablets by mouth every 6 hours as needed for Pain. 60 tablet 1 dextromethorphan-guaiFENesin (Robitussin) 10-100 mg/5 mL Syrup Take 5 mLs by mouth 4 times daily asneeded for Cough. amoxicillin (Amoxil) 500 mg Capsule Take 4 [...] ONE TABLET BY MOUTH TWICE A DAY omeprazole (PriLOSEC) 20 mg Capsule, Delayed Release(E.C.) TAKE ONE CAPSULE BY MOUTH EVERY DAY rosuvastatin (Crestor) 40 mg Tablet TAKE ONE TABLET BY MOUTH EVERY DAY Vital Sign Ranges: Last value Range last 24 hrs Temperature Temp: 36.7 ??C (98.1 ??F) Temp: [36.7 ??C (98.1 ??F)-37.4 ??C (99.3 ??F)] Heart Rate Heart Rate: 76 Heart Rate: [69-86] Blood Pressure BP: 119/89 BP: (116-147)/(58-111) Respiratory Rate Resp: 18 Resp: [14-24] SpO2 SpO2: 98 % SpO2: [90 %-98 %] Art BP BP (Arterial Line): -- Lines/Drains/Airways: PIV 02/23/241999 18 gauge cephalic vein (lateral side of arm), left (Active) Indication/Daily Review of Necessity medication therapy continuous 02/24/24899 Site Preparation/Maintenance dressing: dry and intact 02/24/24957 Securement catheter stabilization device, secured with 02/24/24899 Patency/Maintenance infusing 02/24/24899 Phlebitis 0-->no symptoms 02/24/24957 Infiltration 0-->no symptoms 02/24/24957 PIV 02/23/241999 20 gauge basilic vein (medial side of arm), right (Active) Indication/Daily Review of Necessity medication therapy intermittent 02/24/24899 Site Preparation/Maintenance dressing: dry and intact 02/24/24957 Securement catheter stabilization device, secured with 02/24/24899 Patency/Maintenance flushed without difficulty 02/24/24899 Phlebitis 0-->no symptoms 02/24/24957 Infiltration 0-->no symptoms 02/24/24957 Labs: Recent Results (from the past 24 hour(s)) Troponin - Single Result Value Ref Range Troponin-T, High Sensitivity 161 (H) <=22 ng/L CBC (with Diff) Result Value Ref Range White Blood Cell 5.78 4.00 - 9.50 x10(3)/mcL Red Blood Cell 4.24 (L) 4.58 - 5.54 x10(6)/mcL Hemoglobin 11.7 (L) 13.7 - 16.5 g/dL Hematocrit 34.5 (L) 40.5 - 48.5 % Mean Cell Volume 81.4 (L) 82.9 - 93.1 fL Mean Cell Hemoglobin 27.6 27.5 - 32.1 pg Mean Cell Hemoglobin Concentration 33.9 32.0 - 35.7 g/dL Platelet 158 145 - 357 x10(3)/mcL Mean Platelet Volume 10.4 7.6 - 12.9 fL RDW Standard Deviation 47.0 (H) 36.0 - 45.0 fL RDW coefficient of variation 15.8 (H) 11.4 - 13.8 % NRBC% auto 0.0 % NRBC Absolute 0.00 0.00 - 0.00 x10(3)/mcL Neutrophil % 73.4 % Neutrophil Absolute 4.24 1.70 - 6.10 x10(3)/mcL Lymph % 13.5 % Lymph Absolute 0.78 (L) 0.90 - 3.20 x10(3)/mcL Monocyte % 9.7 % Monocyte Absolute 0.56 0.30 - 0.90 x10(3)/mcL Eos % 2.4 % Eos Absolute 0.14 0.00 - 0.40 x10(3)/mcL Basophil % 0.5 % Baso Absolute 0.03 0.00 - 0.10 x10(3)/mcL Immature Gran % 0.5 % Immature Gran Absolute 0.03 0.00 - 0.04 x10(3)/mcL Basic Metabolic Panel Result Value Ref Range Glucose 126 65 - 199 mg/dL Blood Urea Nitrogen 14 10 - 20 mg/dL Creatinine 1.00 0.80 - 1.50 mg/dL Sodium 129 (L) 135 - 145 mMol/L Potassium 4.0 3.5 - 5.0 mMol/L Chloride 94 (L) 98 - 107 mMol/L Carbon Dioxide 20 (L) 22 - 31 mMol/L Anion Gap 15 5 - 15 mMol/L Calcium 9.6 8.5 - 10.5 mg/dL Est Glomerular Filtration Rate - Male 79 mL/min/1.73 m?? Magnesium Result Value Ref Range Magnesium 0.43 (L) 0.69 - 1.07 mMol/L pro-Brain Natriuretic Peptide Result Value Ref Range NT-proBNP 1,918 (H) <=124 pg/mL POC, GLUCOSE Result Value Ref Range Glucometer, POC 135 65 - 199 mg/dL CBC (with Diff) Result Value Ref Range White Blood Cell 5.20 4.00 - 9.50 x10(3)/mcL Red Blood Cell 4.11 (L) 4.58 - 5.54 x10(6)/mcL Hemoglobin 11.3 (L) 13.7 - 16.5 g/dL Hematocrit 33.2 (L) 40.5 - 48.5 % Mean Cell Volume 80.8 (L) 82.9 - 93.1 fL Mean Cell Hemoglobin 27.5 27.5 - 32.1 pg Mean Cell Hemoglobin Concentration 34.0 32.0 - 35.7 g/dL Platelet 151 145 - 357 x10(3)/mcL Mean Platelet Volume 10.6 7.6 - 12.9 fL RDW Standard Deviation 46.5 (H) 36.0 - 45.0 fL RDW coefficient of variation 15.7 (H) 11.4 - 13.8 % NRBC% auto 0.0 % NRBC Absolute 0.00 0.00 - 0.00 x10(3)/mcL Neutrophil % 71.9 % Neutrophil Absolute 3.74 1.70 - 6.10 x10(3)/mcL Lymph % 13.3 % Lymph Absolute 0.69 (L) 0.90 - 3.20 x10(3)/mcL Monocyte % 11.3 % Monocyte Absolute 0.59 0.30 - 0.90 x10(3)/mcL Eos % 2.5 % Eos Absolute 0.13 0.00 - 0.40 x10(3)/mcL Basophil % 0.4 % Baso Absolute 0.02 0.00 - 0.10 x10(3)/mcL Immature Gran % 0.6 % Immature Gran Absolute 0.03 0.00 - 0.04 x10(3)/mcL Basic Metabolic Panel Result Value Ref Range Glucose 88 65 - 199 mg/dL Blood Urea Nitrogen 12 10 - 20 mg/dL Creatinine 0.95 0.80 - 1.50 mg/dL Sodium 131 (L) 135 - 145 mMol/L Potassium 4.0 3.5 - 5.0 mMol/L Chloride 96 (L) 98 - 107 mMol/L Carbon Dioxide 19 (L) 22 - 31 mMol/L Anion Gap 16 (H) 5 - 15 mMol/L Calcium 9.7 8.5 - 10.5 mg/dL Est Glomerular Filtration Rate - Male 84 mL/min/1.73 m?? Magnesium Result Value Ref Range Magnesium 0.44 (L) 0.69 - 1.07 mMol/L Heparin (unfractionated) Level Result Value Ref Range UF Heparin 0.23 IU/mL Troponin - Single Result Value Ref Range Troponin-T, High Sensitivity 141 (H) <=22 ng/L Hemoglobin A1c Result Value Ref Range Hemoglobin A1c 8.3 (H) 4.3 - 5.6 % Estimated Average Glucose Prothrombin Time Result Value Ref Range Prothrombin Time 12.3 9.4 - 12.5 sec International Normalization Ratio 1.1 <=4.9 POC, GLUCOSE Result Value Ref Range Glucometer, POC 139 65 - 199 mg/dL POC, GLUCOSE Result Value Ref Range Glucometer, POC 137 65 - 199 mg/dL POC, GLUCOSE Result Value Ref Range Glucometer, POC 124 65 - 199 mg/dL APTT Result Value Ref Range Partial Thromboplastin Time 29 25 - 37 sec Prothrombin Time Result Value Ref Range Prothrombin Time 12.3 9.4 - 12.5 sec International Normalization Ratio 1.1 <=4.9 Basic Metabolic Panel Result Value Ref Range Glucose 137 65 - 199 mg/dL Blood Urea Nitrogen 11 10 - 20 mg/dL Creatinine 1.05 0.80 - 1.50 mg/dL Sodium 126 (L) 135 - 145 mMol/L Potassium 4.2 3.5 - 5.0 mMol/L Chloride 95 (L) 98 - 107 mMol/L Carbon Dioxide 20 (L) 22 - 31 mMol/L Anion Gap 11 5 - 15 mMol/L Calcium 8.7 8.5 - 10.5 mg/dL Est Glomerular Filtration Rate - Male 74 mL/min/1.73 m?? CBC (with Diff) Result Value Ref Range White Blood Cell 4.94 4.00 - 9.50 x10(3)/mcL Red Blood Cell 3.80 (L) 4.58 - 5.54 x10(6)/mcL Hemoglobin 10.5 (L) 13.7 - 16.5 g/dL Hematocrit 30.7 (L) 40.5 - 48.5 % Mean Cell Volume 80.8 (L) 82.9 - 93.1 fL Mean Cell Hemoglobin 27.6 27.5 - 32.1 pg Mean Cell Hemoglobin Concentration 34.2 32.0 - 35.7 g/dL Platelet 172 145 - 357 x10(3)/mcL Mean Platelet Volume 10.3 7.6 - 12.9 fL RDW Standard Deviation 46.0 (H) 36.0 - 45.0 fL RDW coefficient of variation 15.6 (H) 11.4 - 13.8 % NRBC% auto 0.0 % NRBC Absolute 0.00 0.00 - 0.00 x10(3)/mcL Neutrophil % 68.5 % Neutrophil Absolute 3.38 1.70 - 6.10 x10(3)/mcL Lymph % 16.4 % Lymph Absolute 0.81 (L) 0.90 - 3.20 x10(3)/mcL Monocyte % 11.5 % Monocyte Absolute 0.57 0.30 - 0.90 x10(3)/mcL Eos % 2.2 % Eos Absolute 0.11 0.00 - 0.40 x10(3)/mcL Basophil % 0.4 % Baso Absolute 0.02 0.00 - 0.10 x10(3)/mcL Immature Gran % 1.0 % Immature Gran Absolute 0.05 (H) 0.00 - 0.04 x10(3)/mcL POC, GLUCOSE Result Value Ref Range Glucometer, POC 138 65 - 199 mg/dL Imaging: CTA Head/Neck Multiphase (Thrombectomy Protocol) Impression 1. 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 2. Severe right ICA origin stenosis. 3. Moderate-severe right intradural vertebral artery stenosis. 4. No intracranial hemorrhage. : Results for orders placed or performed during the hospital encounter of 02/23/24 EKG 12 Lead Result Value Ref Range Ventricular rate 84 BPM Atrial Rate 84 BPM P-R Interval 124 ms QRS Duration 80 ms Q-T Interval 372 ms QTC Calculated (Bezet) 439 ms Calculated P [place] 59 degrees Calculated R [place] -8 degrees Calculated T [place] 0 degrees INTERPRETATION Normal sinus rhythm Possible Left atrial enlargement Inferior infarct (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-2020) Abnormal ECG When compared with ECG of 26-JUN-2023 13:17, No significant change was found Physical Exam: MS: AAOx3-4, NAD, follows all commands and cooperates with exam; no aphasia, mild dysarthria, some delayed speech output CN: pupils equally sluggish but reactive, L HH, gaze conjugate, EOMI, no facial asymmetry, tongue midline MOTOR: LUE drifts but does not hit the bed; LLE full strength does not drift; RUE no drift, RLE in immobilizer SENSATION: left hemineglect v inattention CEREBELLUM: no nystagmus GROIN SITE: R UI UX ENGINEER site still bleeding despite femostop NIH Stroke Scale: 1a. Level of consciousness:: 0 - alert 1b. LOC Questions: Ask patient the month and their age:: 0 - answers both correctly 1c. LOC Commands: Ask patient to open and close eyes:: 0 - performs both correctly 2. Best gaze (horizontal eye movement):: 1 - partial gaze palsy 3. Visual field testing:: 2 - complete hemianopia 4. Facial paresis*: Minor paralysis (+1) 5a. Motor function left arm:: 1 - drift 5b. Motor function right arm:: 0 - no drift 6a. Motor function left leg:: 0 - no drift 6b. Motor function right leg:: 0 - no drift 7. Limb ataxia:: 0 - absent 8. Sensory (Use pinprick to test arms, legs, trunk, and face compare side to side):: 1 - mild to moderate loss 9. Best language (describe picture, name items, read sentences):: 0 - no aphasia 10. Dysarthria (read several words):: 1 - mild to moderate dysarthria 11. Extinction and inattention:: 1 - partial neglect NIH Stroke Scale Total: 8 ASSESSMENT & PLAN: 73 yo male with pmhx of AsCVD s/p CABG x 3 and RCA PCI (06/2023), severe s/p AVR (05/2020), DM2,HTN, HLD who initially presented with chest pressure and light-headedness concerning for ACS, now with dysarthria and left hemiparesis found to have acute distal R QUANTOMETER OPERATOR occlusion now in the setting ofsevere R ICA stenosis s/p tPA. # Neuro- - neuro checks, VS as per thrombectomy protocol x 24h - HOB > 30 deg - obtain MRI brain wo to eval stroke burden - NCHCT 24h post-tPA to evaluate for any hemorrhage - PT/OT eval and treat - femostop to R UI UX ENGINEER site per protocol # CV - - baseline EKG, troponin - goal SBP < 180, DBP < 105 - TTE - monitor on telemetry for dysrhythmias - hold antithrombotics until 24h post-alteplase NCHCT stable - follow up with Cards re: additional recs # Pulm - - goal O2 sats > 92% - continue chest PT/pulm toileting # GI - - obtain bedside swallow screen, ADAT when able - maintain bowel reg # FEN/ - - d/c IVF - daily BMP, Mg, PO4 # Heme - - daily CBC - hold SQH until 24h post-alteplase NCHCT stable # Endo - - send HgbA1c, TSH on admission - goal glucose 120-180 --> ISS # ID - - for temp > 38.4C --> UA, CXR, blood cx, sputum cx - tylenol PRN Code Status: Attempt Cardiopulmonary Resuscitation - Inpatient Dispo: NCCU Mraina Schmitz APRN Neurocritical Care, [id number] * Mauricio Jean MD - 02/23/2024 9:32 PM EDT Images from the original note were not included. Cardiology Admission H&P Patient Name: Johnson Tobar Date of : 1950 Age: 73 y.o. Hospital Admit Date: 02/23/2024 Inpatient Attending: Kal Puentes MD PCP: RASHEL Do Presenting Diagnosis/Chief Complaint: chest pain Active Problem List: Active Hospital Problems Diagnosis NSTEMI (non-ST elevated myocardial infarction) Resolved Hospital Problems No resolved problems to display. History of Present Illness: Johnson Tobar is a 73 y.o. male with a hx of CAD s/p CABGx3 MCKEON->LAD, Seq SVG->OM1->D1 and AVR 23 mm Inspriris bioprosthesis 06/13/2020 for severe , mid and proximal RCA PCI 06/2023, niddm2, HTN, HLD who presented to [facility] with chest pressure and lightheadeness and has been transferred to [facility] for further management. The patient has a hx of ASCVD. He had his first LHC in 1997 and got one stent, which he says did him well. He was out of the hospital for about 20 years. In 2019, he had chest pain that was burning like and was found to have 3VD and severe . He had MCKEON->LAD, Seq SVG->OM1->D1 and AVR 23 mm Inspriris bioprosthesis 06/13/2020 for severe . Three years later, he developed chest pain again and had mid and proximal RCA PCI 06/2023. The patient was discharged on DAPT and he reports to have been compliant. He had been doing well until two days ago. He started having chest pressure like pain that was burning like and mild about a 3. It went away and he did not go to the hospital. The next day he woke up in the morning at 6:30 with severe chest pressure and lightheadness as he tried togo to the bathroom. He felt like he is going to fall and lowered himself to the ground. He did not loos concousiouness. His had checked his blood sugar and was not hypoglycemic. He took nitro SLx2 lowered down his pain to 5/10 initally. He reports that his chest pressure and burning sensationis similar to when he had his CABG. He went to the ED at [facility]. At [facility], by the time the ED physician interviewed him his pain had gone down to 0. his vitals were stable. Troponin (125-> 195.4), Na 131, Cr 1.28. EKG: SR, HR 86 bpm, ST dep in V3-6, I, and aVL, increased compared to 06/2023 tracing. XR Chest with no acute findings. The patient was continued on DAPT, statin and beta pb that he has been on outpatient from previous PCI in 2022. He was started on heparin gtt and transferred to [facility]. On arrival at [facility] [facility], the pateint is chest pain free. His vitals are stable. Family hx: Father of [place] in his 40s. Social: lives with . Never smoked. Very occasional alcohol. No illicit drugs. Prior studies: Left heart cath: 06/26/2023- (brought back for planned PCI) atherectomy and stent insertion of the mid RCA lesion and stent insertion of the proximal RCA lesion 05/17/2023- (elective outpatient for angina) 3vCAD, patent MCKEON-LAD, obstructive ds of SVG (y-type) to D2/OM1, subtotal occlusion of midRCA which was heavily calcified w/ L-R collaterals (unable to intervene w/ plan to bring back), jump svg to om1-d1 occluded at origin, there is signficant calcific ds in ostial prox lcx as well as sever calvcified ds in ostium of d1. Recommend PCI of RCA then consideration of further revasc of left system pending sx. TTE 07/21/2020 SUMMARY: 1. The left ventricular chamber size is normal. Concentric left ventricular remodeling is observed. There is normal global left ventricular systolic function. The quantitative left ventricular ejection fraction by biplane Castro's method is 53%. There are no left ventricular segmental wall motion abnormalities. 2. The left atrium is severely dilated. 3. The right ventricle is mildly dilated. Right ventricular global systolic function is mildly reduced. The estimated pulmonary artery systolic pressure is 38 mmHg. 4. The 23 mm bio-prosthetic aortic valve appears well seated with normal function. The mean trans-valvular gradient across the aortic valve is 6 mmHg. The peak instantaneous trans-valvular gradient across the aortic valve is 13 mmHg. There is no prosthetic aortic valve regurgitation present. 5. There is anterior and posterior mitral annular calcification. 6. Mild mitral leaflet calcification is visualized. Moderate mitral leaflet calcification is visualized. Mitral valve leaflet excursion is moderately reduced. There is mild to moderate mitral stenosis present. The mean gradient across the mitral valve is 3 mmHg at HR 61 bpm. There is trace mitral regurgitation present. Past Medical History: Past Medical History: Diagnosis Date Gastroesophageal reflux controlled with medication Heart valve disease High blood pressure treated with medication Myocardial infarction Peptic ulcer disease >15 yrs ago S/P AVR (aortic valve replacement) 06/13/2020 Type 2 diabetes mellitus 2014 Type 2 diabetes mellitus, without long-term current use of insulin 06/15/2020 Surgical History/Problems: Past Surgical History: Procedure Laterality Date CORONARY ANGIOPLASTY WITH STENT PLACEMENT 1997 [facility] LEFT HEART CATH & ARTS W/INJ & ANGIO IMG S&I N/A 05/17/2023 CORONARY ANGIOGRAPHY; [facility],POSSIBLE PCI (WRVU 5.6) performed by Avani Danielle MD at [facility] CATHLABS PRG CATH PLAL LEFT HEART CATH & ARTS W/INJ & ANGIO IMG S&I N/A 06/26/2023 CORONARY ANGIOGRAPHY; [facility],POSSIBLE PCI (WRVU 5.6) performed by Avani Danielle MD at [facility] CATHLABS PRO CABG, ARTERIAL, SINGLE Left 06/13/2020 @CABG, USING ARTERIAL GRAFT;SINGLE ARTERIAL GRAFT (WRVU 33.75) performed by Chun Wiley MD at [facility] MAIN OR PRO CABG, ARTERY-VEIN, TWO N/A 06/13/2020 @CABG, TWO VENOUS GRAFTS & ARTERIAL GRAFT (WRVU 7.93) performed by Chun Wiley MD at [facility] MAIN OR PRO ENDOSCOPY W/VIDEO-ASST VEIN HARVEST, CABG Right 06/13/2020 ENDOSCOPIC HARVEST VEIN(S) FOR CABG (WRVU 0.31) performed by Chun Wiley MD at [facility] MAIN OR PRO PERC TRLUML CORONARY STENT W/ANGIO ADDL ART/BRANCH N/A 06/26/2023 STENT PLACEMENT-EACH ADDITIONAL BRANCH OF A MAJOR CORONARY ARTERY (WRVU *) performed by Avani Danielle MD at [facility] CATH LABS PRO PERC TRLUML CORONARY STENT W/ANGIO ONE ART/BRANCH N/A 06/26/2023 STENT PLACEMENT-SINGLE MAJOR CORONARY ARTERY OR BRANCH (WRVU 10.96) performed by Avani Danielle MD at [facility] CATH LABS PRO REPLACEMENT PROSTHETIC AORTIC VALVE OPEN W CARDIOPULMONARY BYPASS HOMOGRF/STENT N/A 06/13/2020 @REPLACE AORTIC VALVE, OPEN, W\CPB, W\PROSTHETIC VALVE (WRVU 41.32) performed by Chun Wiley MD at [facility] MAIN OR Significant Family History: No family history on file. Social History: Social History Socioeconomic History Marital [...] Resource Strain: Not on file Food Insecurity: Not on file Transportation Needs: Not on file Physical Activity: Not on file Intimate Partner Violence: Not At Risk (02/23/2024) IPV Inpatient Questions Prevent Contact with Others: no Feels Threatened by Someone: no Feels Unsafe at Home: no Physical Signs of Abuse Present: no Housing Stability: Not on file REVIEW OF SYSTEMS: ROS done. As per HPI otherwise negative. Medications: Medications Prior to Admission Medication Sig Dispense Refill Last Dose aspirin EC 81 mg EC (DR) tablet Take 81 mg by mouth daily. amLODIPine (Norvasc) 5 mg tablet Take 5 mg by mouth 2 times daily. clopidogreL (Plavix) 75 mg tablet Take 1 tablet by mouth daily. 90 tablet 3 Jardiance 25 mg tablet Take 25 mg by mouth daily. sacubitriL-valsartan (Entresto) 24-26 mg tablet Take by mouth 2 times daily. semaglutide (Ozempic) 0.25 mg or 0.5 mg (2 mg/3 mL) Pen Injector Inject 0.5 mg subcutaneously. multivitamin (THERAGRAN) Tablet Take 1 tablet by mouth daily. metoprolol tartrate (Lopressor) 100 mg Tablet Take 1 tablet by mouth 2 times daily. 60 tablet 1 acetaminophen (Tylenol) 500 mg Tablet Take 2 tablets by mouth every 6 hours as needed for Pain. 60 tablet 1 dextromethorphan-guaiFENesin (Robitussin) 10-100 mg/5 mL Syrup Take 5 mLs by mouth 4 times daily asneeded for Cough. amoxicillin (Amoxil) 500 mg Capsule Take 4 [...] ONE TABLET BY MOUTH TWICE A DAY omeprazole (PriLOSEC) 20 mg Capsule, Delayed Release(E.C.) TAKE ONE CAPSULE BY MOUTH EVERY DAY rosuvastatin (Crestor) 40 mg Tablet TAKE ONE TABLET BY MOUTH EVERY DAY Allergies: Allergies Allergen Reactions Lisinopril Other (See Comments) PHYSICAL EXAM: Last set of vital signs: BP 131/77 (BP Location (NBP): Left arm, Patient Position: Lying) Pulse 79 Temp 37.4 ??C (99.3 ??F) (Oral) Resp 16 Ht 170.2 cm (5' 7) Wt 75.2 kg (165 lb 11.2 oz) SpO2 98% BMI 25.95 kg/m?? General: Alert, cooperative resting in bed with no apparent distress Head: normocephalic, atraumatic Eyes: no scleral icterus or conjunctival pallor Ears: Grossly normal auditory acuity, no discharge from external canals Neck: Supple, no JVD Heart: S1 and S2 even regular, normal sinus rhythm. No murmur. Lungs: Clear to auscultation bilaterally, respirations even unlabored, no adventitious sounds appreciated Abdomen: soft, protuberant, non-tender, bowel sounds present. Extremities: No lower ext edema. Skin: [place] and warm. Neurologic: Awake, alert, oriented x 3. Cranial nerves II-XII grossly intact. Strength equal bilaterally in upper extremities and lower extremities. LABS: Recent Results (from the past 24 hour(s)) Troponin - Single Result Value Ref Range Troponin-T, High Sensitivity 161 (H) <=22 ng/L CBC (with Diff) Result Value Ref Range White Blood Cell 5.78 4.00 - 9.50 x10(3)/mcL Red Blood Cell 4.24 (L) 4.58 - 5.54 x10(6)/mcL Hemoglobin 11.7 (L) 13.7 - 16.5 g/dL Hematocrit 34.5 (L) 40.5 - 48.5 % Mean Cell Volume 81.4 (L) 82.9 - 93.1 fL Mean Cell Hemoglobin 27.6 27.5 - 32.1 pg Mean Cell Hemoglobin Concentration 33.9 32.0 - 35.7 g/dL Platelet 158 145 - 357 x10(3)/mcL Mean Platelet Volume 10.4 7.6 - 12.9 fL RDW Standard Deviation 47.0 (H) 36.0 - 45.0 fL RDW coefficient of variation 15.8 (H) 11.4 - 13.8 % NRBC% auto 0.0 % NRBC Absolute 0.00 0.00 - 0.00 x10(3)/mcL Neutrophil % 73.4 % Neutrophil Absolute 4.24 1.70 - 6.10 x10(3)/mcL Lymph % 13.5 % Lymph Absolute 0.78 (L) 0.90 - 3.20 x10(3)/mcL Monocyte % 9.7 % Monocyte Absolute 0.56 0.30 - 0.90 x10(3)/mcL Eos % 2.4 % Eos Absolute 0.14 0.00 - 0.40 x10(3)/mcL Basophil % 0.5 % Baso Absolute 0.03 0.00 - 0.10 x10(3)/mcL Immature Gran % 0.5 % Immature Gran Absolute 0.03 0.00 - 0.04 x10(3)/mcL Basic Metabolic Panel Result Value Ref Range Glucose 126 65 - 199 mg/dL Blood Urea Nitrogen 14 10 - 20 mg/dL Creatinine 1.00 0.80 - 1.50 mg/dL Sodium 129 (L) 135 - 145 mMol/L Potassium 4.0 3.5 - 5.0 mMol/L Chloride 94 (L) 98 - 107 mMol/L Carbon Dioxide 20 (L) 22 - 31 mMol/L Anion Gap 15 5 - 15 mMol/L Calcium 9.6 8.5 - 10.5 mg/dL Est Glomerular Filtration Rate - Male 79 mL/min/1.73 m?? Magnesium Result Value Ref Range Magnesium 0.43 (L) 0.69 - 1.07 mMol/L pro-Brain Natriuretic Peptide Result Value Ref Range NT-proBNP 1,918 (H) <=124 pg/mL POC, GLUCOSE Result Value Ref Range Glucometer, POC 135 65 - 199 mg/dL CBC (with Diff) Result Value Ref Range White Blood Cell 5.20 4.00 - 9.50 x10(3)/mcL Red Blood Cell 4.11 (L) 4.58 - 5.54 x10(6)/mcL Hemoglobin 11.3 (L) 13.7 - 16.5 g/dL Hematocrit 33.2 (L) 40.5 - 48.5 % Mean Cell Volume 80.8 (L) 82.9 - 93.1 fL Mean Cell Hemoglobin 27.5 27.5 - 32.1 pg Mean Cell Hemoglobin Concentration 34.0 32.0 - 35.7 g/dL Platelet 151 145 - 357 x10(3)/mcL Mean Platelet Volume 10.6 7.6 - 12.9 fL RDW Standard Deviation 46.5 (H) 36.0 - 45.0 fL RDW coefficient of variation 15.7 (H) 11.4 - 13.8 % NRBC% auto 0.0 % NRBC Absolute 0.00 0.00 - 0.00 x10(3)/mcL Neutrophil % 71.9 % Neutrophil Absolute 3.74 1.70 - 6.10 x10(3)/mcL Lymph % 13.3 % Lymph Absolute 0.69 (L) 0.90 - 3.20 x10(3)/mcL Monocyte % 11.3 % Monocyte Absolute 0.59 0.30 - 0.90 x10(3)/mcL Eos % 2.5 % Eos Absolute 0.13 0.00 - 0.40 x10(3)/mcL Basophil % 0.4 % Baso Absolute 0.02 0.00 - 0.10 x10(3)/mcL Immature Gran % 0.6 % Immature Gran Absolute 0.03 0.00 - 0.04 x10(3)/mcL Basic Metabolic Panel Result Value Ref Range Glucose 88 65 - 199 mg/dL Blood Urea Nitrogen 12 10 - 20 mg/dL Creatinine 0.95 0.80 - 1.50 mg/dL Sodium 131 (L) 135 - 145 mMol/L Potassium 4.0 3.5 - 5.0 mMol/L Chloride 96 (L) 98 - 107 mMol/L Carbon Dioxide 19 (L) 22 - 31 mMol/L Anion Gap 16 (H) 5 - 15 mMol/L Calcium 9.7 8.5 - 10.5 mg/dL Est Glomerular Filtration Rate - Male 84 mL/min/1.73 m?? Magnesium Result Value Ref Range Magnesium 0.44 (L) 0.69 - 1.07 mMol/L Heparin (unfractionated) Level Result Value Ref Range UF Heparin 0.23 IU/mL ASSESSMENT: Johnson Tobar is a 73 y.o. male with a hx of CAD s/p CABGx3 MCKEON->LAD, Seq SVG->OM1->D1 and AVR 23 mm Inspriris bioprosthesis 06/13/2020 for severe , mid and proximal RCA PCI 06/2023, niddm2, HTN, HLD who presented to [facility] with chest pressure and lightheadeness and has been transferred to [facility] [facility] for further management. #NSTEMI The patient suspected to have NSTEMI with elevated troponin x 3. He was anticoagulated with IV heparin. Given the presentation (chest pressure responding to nitro similar to prior CAD chest pressure,patient's risk factors (prior CAD s/p CABG and PCI x2, age, T2DM, HTN, HLD, ECG changes (ST depression V4-6, though somewhat similar to previous ECG in jun 2023), positive biomarkers, the patient will likely benefit from LHC. The indications, expected benefits and potential risks of heart catheterization were reviewed in detail with the patient. The potential for , heart attack, stroke, kidney failure, hemorrhage, allergic reaction, vascular complications and infection were reviewed in detail. The possibility of stenting and other percutaneous intervention with associated risk was reviewed. The possible need for emergent coronary artery bypass surgery was reviewed. After a discussion about the above, and havinganswered all questions posed, the patient was provided with a consent which was reviewed and signed. ASA: 2: Patient with mild systemic disease Mallampati: III: only the base of the uvula can be seen Sedation Plan: moderate (conscious sedation) - ASA 81mg PO daily - Clopidogrel 75mg PO daily - Rosuvastatin 40 mg PO OD, check lipid panel - Metoprolol succinate 100 mg PO OD (Hold if SBP<90 / cardiogenic shock) - NTG PRN chest pain or NTG drip if ongoing chest pain (Hold if hypotensive / cardiogenic shock / inferior NM / sildenafil within past 24 hours) - Heparin gtt per acs protocol. - TTE - NPO for possible LHC in the am. #Hyponatremia. Monitor BMP. Recheck to make sure sodium does not drop abruptly. - Urine sodium, osm, and serum osm. #Hypomagnesimia - replete and monitor. #Elevated BNP. Does not appear to be fluid overload. Elevated likely in the setting of ACS. #T2DM - Hold home OA Mauricio Jean MD 02/24/2024 documented in this encounter Procedure Notes * Josias Hyman MD - 02/25/2024 4:00 PM EDTAssociated Order(s): EEG CONTINUOUS MONITORING INPATIENT [facility] Department of Neurology Inpatient Continuous Video EEG Report Name of the Patient: Johnson Tobar Date of : 1950 Patient Location: [facility] Date of Service: 02/24/2024 Referring physician: Valeriy Fellow: Josias Hyman MD Reading Attending: Initial time and [...] s/p AVR (05/2020), DM2, HTN, HLD who initially presented on02/22 with chest pressure and light-headedness concerning for ACS. Pt was admitted to Cardiology service and initiated on heparin gtt. Earlier today, he was taken to the asset availability leader, though no intervention required. In recovery, pt started to have slurred speech and left hemiparesis, Stroke Alert called. MEDICATIONS: No relevant medications. PRIOR EEG(s): No prior EEG available. METHODS: A 21 channel digitized continuous electroencephalogram with video was set up and recording started at 23:38 on 02/24/2024. Following explanation of the procedure, the 10/20 international system of electrode placement was used to determine electrode placement and disposable MRI conditional electrodeswere applied using the paste/collodion method of application. In addition to EEG the patient was monitored for EKG. Video was recorded during the session. SUPERVISOR DOG LICENSE OFFICER'S REPORT: Performed by: AT At the onset of the recording the patient was awake. Movement and other artifact was not significant. Comments: None. ELECTROENCEPHALOGRAPHER'S REPORT Background: The background was continuous and spontaneously reactive composed of normal voltage, with well organized anterior to posterior gradient with frontally predominant beta and posterior alpha frequencies. There was a 9-10 Hz posterior dominant rhythm [...] MD PGY-6 Clinical Instructor - Epilepsy Fellow [facility] Department of Neurology 02/25/2024 * Josias Hyman MD - 02/25/2024 12:16 AM EDT Preliminary continuous video EEG Note: 02/25/2024 - 12:17 AM Start Time: 2338 Review of the first 38 minutes of this cEEG recording shows no seizure or epileptiform discharges. Well formed anterior posterior gradient with 9-10 Hz posterior dominant rhythm. Sleep marked by symmetric N2 sleep transients. Formal report will follow. Josias Hyman MD documented in this encounter Miscellaneous Notes * Care Management Discharge - Hortencia Tillman RN - 03/02/2024 2:11 PM EDT CARE MANAGEMENT FINAL DISCHARGE NOTE Chart reviewed, care reviewed with primary team and at interdisciplinary rounds. Patient is medically ready for discharge to acute inpatient rehab. Needs for Transition of Care: Plan for discharge is: Acute Rehab Outpatient Agency/Support Group Needs: None Agency Referrals & Follow-up Care: Contact information for follow-up [address] [id number] Transportation: family or friend will provide Wheelchair van/Ambulance? No Functional status prior to admission: Independent Home Environment: Others in the home: spouse. Current Living Arrangements: home/apartment/condo. Accessibility Concerns:Lives with spouse No DME 2 levels to home 4 EARLE Bed upstairs Bath downstairs. Current Functional Ability: Assistive Person DME used at home: none DME Needed at Discharge: Patient is insured through: Primary Insurance: [employer] Payor: [employer] / Plan: [employer] / Product Type: *No Product type* / Secondary Insurance: N/A Prescription Coverage: Yes This plan was formulated with input from patient, Emili (please identify family/friend involved if applicable) and team. All are in agreement with plan. * Plan of Care - Miguel A Vides LPN - 03/02/2024 2:10 PM EDT Problem: Adult Inpatient Plan of Care Goal: [...] Outcome (s) achieved Problem: Adjustment to Illness (Stroke, Ischemic/Transient Ischemic Attack) Goal: Optimal Coping Outcome: Outcome (s) achieved Problem: Bowel Elimination Impaired (Stroke, Ischemic/Transient Ischemic Attack) Goal: Effective Bowel Elimination Outcome: Outcome (s) achieved Problem: Cerebral Tissue Perfusion (Stroke, Ischemic/Transient Ischemic Attack) Goal: Optimal Cerebral Tissue Perfusion Outcome: Outcome (s) achieved Problem: Cognitive Impairment (Stroke, Ischemic/Transient Ischemic Attack) Goal: Optimal Cognitive Function Outcome: Outcome (s) achieved Problem: Communication Impairment (Stroke, Ischemic/Transient Ischemic Attack) Goal: Improved Communication Skills Outcome: Outcome (s) achieved Problem: Functional Ability Impaired (Stroke, Ischemic/Transient Ischemic Attack) Goal: Optimal Functional Ability Outcome: Outcome (s) achieved Problem: Respiratory Compromise (Stroke, Ischemic/Transient Ischemic Attack) Goal: Effective Oxygenation and Ventilation Outcome: Outcome (s) achieved Problem: Sensorimotor Impairment (Stroke, Ischemic/Transient Ischemic Attack) Goal: Improved Sensorimotor Function Outcome: Outcome (s) achieved Problem: Eating/Swallowing Impairment (Stroke, Ischemic/Transient Ischemic Attack) Goal: Oral Intake without Aspiration Outcome: Outcome (s) achieved Problem: Urinary Elimination Impaired (Stroke, Ischemic/Transient Ischemic Attack) Goal: Effective Urinary Elimination Outcome: Outcome (s) achieved Problem: Bleeding Goal: Absence of Bleeding Outcome: Outcome (s) achieved * Plan of Care - Linsey Esquivel RN - 03/02/2024 6:15 AM EDT OUTCOME EVALUATION NOTE: OUTCOME SUMMARY: NAEON; VSS,NC stable, voiding well. Slept well most of night. PLAN MOVING FORWARD: VS q6hrWA NC q4hr Tele FSBS AC/HS Discharge planning INDIVIDUALIZED FALL PREVENTION INTERVENTIONS: Patient-specific fall risk factors per assessment: mobility aid, altered mobility Assistance: 1 assist FWW Supervision: Hands on Surveillance: Bed locked in low position, call blanco within reach, purposeful hourly rounding, clutter free environment, bed/chair alarm on, family at bedside Patient-specific fall prevention interventions for sensory deficits provided: N/A CPG GOAL OUTCOME EVALUATION: Continue care plan as documented. Problem: Adult Inpatient Plan of Care Goal: [...] Implemented as Appropriate) Problem: Adjustment to Illness (Stroke, Ischemic/Transient Ischemic Attack) Goal: Optimal Coping Outcome: Ongoing (Interventions Implemented as Appropriate) Problem: Bowel Elimination Impaired (Stroke, Ischemic/Transient Ischemic Attack) Goal: Effective Bowel Elimination Outcome: Ongoing (Interventions Implemented as Appropriate) Problem: Cerebral Tissue Perfusion (Stroke, Ischemic/Transient Ischemic Attack) Goal: Optimal Cerebral Tissue Perfusion Outcome: Ongoing (Interventions Implemented as Appropriate) Problem: Cognitive Impairment (Stroke, Ischemic/Transient Ischemic Attack) Goal: Optimal Cognitive Function Outcome: Ongoing (Interventions Implemented as Appropriate) Problem: Communication Impairment (Stroke, Ischemic/Transient Ischemic Attack) Goal: Improved Communication Skills Outcome: Ongoing (Interventions Implemented as Appropriate) Problem: Functional Ability Impaired (Stroke, Ischemic/Transient Ischemic Attack) Goal: Optimal Functional Ability Outcome: Ongoing (Interventions Implemented as Appropriate) Problem: Respiratory Compromise (Stroke, Ischemic/Transient Ischemic Attack) Goal: Effective Oxygenation and Ventilation Outcome: Ongoing (Interventions Implemented as Appropriate) Problem: Sensorimotor Impairment (Stroke, Ischemic/Transient Ischemic Attack) Goal: Improved Sensorimotor Function Outcome: Ongoing (Interventions Implemented as Appropriate) Problem: Eating/Swallowing Impairment (Stroke, Ischemic/Transient Ischemic Attack) Goal: Oral Intake without Aspiration Outcome: Ongoing (Interventions Implemented as Appropriate) Problem: Urinary Elimination Impaired (Stroke, Ischemic/Transient Ischemic Attack) Goal: Effective Urinary Elimination Outcome: Ongoing (Interventions Implemented as Appropriate) Problem: Bleeding Goal: Absence of Bleeding Outcome: Ongoing (Interventions Implemented as Appropriate) * Plan of Care - Linsey Esquivel RN - 03/01/2024 6:13 AM EDT OUTCOME EVALUATION NOTE: OUTCOME SUMMARY: NAEON; VSS,NC stable, voiding well. Slept well most of night. PLAN MOVING FORWARD: VS q4hr NC q4hr Tele FSBS AC/HS Discharge planning INDIVIDUALIZED FALL PREVENTION INTERVENTIONS: Patient-specific fall risk factors per assessment: mobility aid, altered mobility Assistance: 1 assist FWW Supervision: Hands on Surveillance: Bed locked in low position, call blanco within reach, purposeful hourly rounding, clutter free environment, bed/chair alarm on, family at bedside Patient-specific fall prevention interventions for sensory deficits provided: N/A CPG GOAL OUTCOME EVALUATION: Continue care plan as documented. Problem: Adult Inpatient Plan of Care Goal: [...] Implemented as Appropriate) Problem: Adjustment to Illness (Stroke, Ischemic/Transient Ischemic Attack) Goal: Optimal Coping Outcome: Ongoing (Interventions Implemented as Appropriate) Problem: Bowel Elimination Impaired (Stroke, Ischemic/Transient Ischemic Attack) Goal: Effective Bowel Elimination Outcome: Ongoing (Interventions Implemented as Appropriate) Problem: Cerebral Tissue Perfusion (Stroke, Ischemic/Transient Ischemic Attack) Goal: Optimal Cerebral Tissue Perfusion Outcome: Ongoing (Interventions Implemented as Appropriate) Problem: Cognitive Impairment (Stroke, Ischemic/Transient Ischemic Attack) Goal: Optimal Cognitive Function Outcome: Ongoing (Interventions Implemented as Appropriate) Problem: Communication Impairment (Stroke, Ischemic/Transient Ischemic Attack) Goal: Improved Communication Skills Outcome: Ongoing (Interventions Implemented as Appropriate) Problem: Functional Ability Impaired (Stroke, Ischemic/Transient Ischemic Attack) Goal: Optimal Functional Ability Outcome: Ongoing (Interventions Implemented as Appropriate) Problem: Respiratory Compromise (Stroke, Ischemic/Transient Ischemic Attack) Goal: Effective Oxygenation and Ventilation Outcome: Ongoing (Interventions Implemented as Appropriate) Problem: Sensorimotor Impairment (Stroke, Ischemic/Transient Ischemic Attack) Goal: Improved Sensorimotor Function Outcome: Ongoing (Interventions Implemented as Appropriate) Problem: Eating/Swallowing Impairment (Stroke, Ischemic/Transient Ischemic Attack) Goal: Oral Intake without Aspiration Outcome: Ongoing (Interventions Implemented as Appropriate) Problem: Urinary Elimination Impaired (Stroke, Ischemic/Transient Ischemic Attack) Goal: Effective Urinary Elimination Outcome: Ongoing (Interventions Implemented as Appropriate) Problem: Bleeding Goal: Absence of Bleeding Outcome: Ongoing (Interventions Implemented as Appropriate) * Plan of Care - Linsey Esquivel RN - 02/29/2024 6:46 AM EDT Images from the original note were not included. OUTCOME EVALUATION NOTE: OUTCOME SUMMARY: NAEON; VSS,NC stable, voiding well. Slept well most of night. PLAN MOVING FORWARD: VS q4hr NC q4hr Tele FSBS AC/HS Discharge planning INDIVIDUALIZED FALL PREVENTION INTERVENTIONS: Patient-specific fall risk factors per assessment: [2 assist with a walker] Assistance: 1 assist FWW Supervision: Hands on Surveillance: Bed locked in low position, call blanco within reach, purposeful hourly rounding, clutter free environment, bed/chair alarm on, family at bedside Patient-specific fall prevention interventions for sensory deficits provided: N/A CPG GOAL OUTCOME EVALUATION: Continue care plan as documented. Problem: Adult Inpatient Plan of Care Goal: [...] Implemented as Appropriate) Problem: Adjustment to Illness (Stroke, Ischemic/Transient Ischemic Attack) Goal: Optimal Coping Outcome: Ongoing (Interventions Implemented as Appropriate) Problem: Bowel Elimination Impaired (Stroke, Ischemic/Transient Ischemic Attack) Goal: Effective Bowel Elimination Outcome: Ongoing (Interventions Implemented as Appropriate) Problem: Cerebral Tissue Perfusion (Stroke, Ischemic/Transient Ischemic Attack) Goal: Optimal Cerebral Tissue Perfusion Outcome: Ongoing (Interventions Implemented as Appropriate) Problem: Cognitive Impairment (Stroke, Ischemic/Transient Ischemic Attack) Goal: Optimal Cognitive Function Outcome: Ongoing (Interventions Implemented as Appropriate) Problem: Communication Impairment (Stroke, Ischemic/Transient Ischemic Attack) Goal: Improved Communication Skills Outcome: Ongoing (Interventions Implemented as Appropriate) Problem: Functional Ability Impaired (Stroke, Ischemic/Transient Ischemic Attack) Goal: Optimal Functional Ability Outcome: Ongoing (Interventions Implemented as Appropriate) Problem: Respiratory Compromise (Stroke, Ischemic/Transient Ischemic Attack) Goal: Effective Oxygenation and Ventilation Outcome: Ongoing (Interventions Implemented as Appropriate) Problem: Sensorimotor Impairment (Stroke, Ischemic/Transient Ischemic Attack) Goal: Improved Sensorimotor Function Outcome: Ongoing (Interventions Implemented as Appropriate) Problem: Eating/Swallowing Impairment (Stroke, Ischemic/Transient Ischemic Attack) Goal: Oral Intake without Aspiration Outcome: Ongoing (Interventions Implemented as Appropriate) Problem: Urinary Elimination Impaired (Stroke, Ischemic/Transient Ischemic Attack) Goal: Effective Urinary Elimination Outcome: Ongoing (Interventions Implemented as Appropriate) Problem: Bleeding Goal: Absence of Bleeding Outcome: Ongoing (Interventions Implemented as Appropriate) * Plan of Care - Carl Martínez RN - 02/28/2024 6:22 PM EDT OUTCOME EVALUATION NOTE: OUTCOME SUMMARY: No acute events throughout the shift; VSS, on room air, Dixon d/c per order, due to void by 21:00, ambulated in halls with PT, pain controlled, mentation intact, at bedside, magnesium replaced, intake and output recorded, fall and safety precautions maintained PLAN MOVING FORWARD: Discharge planning, record intake and output, neuro checks, accu checks, maintain fall and safety precautions, INDIVIDUALIZED FALL PREVENTION INTERVENTIONS: Patient-specific fall risk factors per assessment: [decreased mobility] Assistance: -2 assist, FWW, Supervision: Hands on Surveillance: Bed locked in low position, call blanco within reach, purposeful hourly rounding, clutter free environment, bed/chair alarm on, family at bedside Patient-specific fall prevention interventions for sensory deficits provided: N/A CPG GOAL OUTCOME EVALUATION: Continue care plan as documented. Problem: Adult Inpatient Plan of Care Goal: [...] Implemented as Appropriate) Problem: Adjustment to Illness (Stroke, Ischemic/Transient Ischemic Attack) Goal: Optimal Coping Outcome: Ongoing (Interventions Implemented as Appropriate) Problem: Bowel Elimination Impaired (Stroke, Ischemic/Transient Ischemic Attack) Goal: Effective Bowel Elimination Outcome: Ongoing (Interventions Implemented as Appropriate) Problem: Cerebral Tissue Perfusion (Stroke, Ischemic/Transient Ischemic Attack) Goal: Optimal Cerebral Tissue Perfusion Outcome: Ongoing (Interventions Implemented as Appropriate) Problem: Cognitive Impairment (Stroke, Ischemic/Transient Ischemic Attack) Goal: Optimal Cognitive Function Outcome: Ongoing (Interventions Implemented as Appropriate) Problem: Communication Impairment (Stroke, Ischemic/Transient Ischemic Attack) Goal: Improved Communication Skills Outcome: Ongoing (Interventions Implemented as Appropriate) Problem: Functional Ability Impaired (Stroke, Ischemic/Transient Ischemic Attack) Goal: Optimal Functional Ability Outcome: Ongoing (Interventions Implemented as Appropriate) Problem: Respiratory Compromise (Stroke, Ischemic/Transient Ischemic Attack) Goal: Effective Oxygenation and Ventilation Outcome: Ongoing (Interventions Implemented as Appropriate) Problem: Sensorimotor Impairment (Stroke, Ischemic/Transient Ischemic Attack) Goal: Improved Sensorimotor Function Outcome: Ongoing (Interventions Implemented as Appropriate) Problem: Eating/Swallowing Impairment (Stroke, Ischemic/Transient Ischemic Attack) Goal: Oral Intake without Aspiration Outcome: Ongoing (Interventions Implemented as Appropriate) Problem: Urinary Elimination Impaired (Stroke, Ischemic/Transient Ischemic Attack) Goal: Effective Urinary Elimination Outcome: Ongoing (Interventions Implemented as Appropriate) Problem: Bleeding Goal: Absence of Bleeding Outcome: Ongoing (Interventions Implemented as Appropriate) * Care Management - Hortencia Tillman RN - 02/28/2024 3:00 PM EDT OFFICE OF CARE MANAGEMENT PROGRESS NOTE LOS: Hospital Day 5 days Chart reviewed, care reviewed with primary team and at interdisciplinary rounds. 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 Current Living Arrangements: home/apartment/condo. Accessibility Concerns: Lives with spouse No DME 2 levels to home 4 EARLE Bed upstairs Bath downstairs. Current Functional Ability: Assistive Person DME used at home: none DME Needed at Discharge: No Patient is insured through: Primary Insurance: [employer] MANAGED MEDICARE Payor: [facility] MANAGED MEDICARE / Plan: P MANAGED MEDICARE / Product Type: *No Product type* / Secondary Insurance: N/A Last Physical Therapy Recommendation: acute rehabilitation facility with walker, front wheeled Last Occupational Therapy Recommendation: acute rehabilitation facility with Plan for discharge is: Acute Rehab Outpatient Agency/Support Group Needs: None Agency Referrals: [facility] Pending auth Not Applicable Transportation: family or friend will provide Barriers to discharge: None Plan going forward: Follow up with authorization on Saturday for [facility]. Anticipated Date of Discharge: 03/02/2024 * Plan of Care - Linsey Esquivel RN - 02/28/2024 6:23 AM EDT Images from the original note were not included. OUTCOME EVALUATION NOTE: OUTCOME SUMMARY: NAEON; VSS,NC stable, Dixon in place, Dixon care completed. PLAN MOVING FORWARD: VS q4hr NC q4hr Tele FSBS AC/HS Discharge planning INDIVIDUALIZED FALL PREVENTION INTERVENTIONS: Patient-specific fall risk factors per assessment: [2 assist with a walker] Assistance: 1-2 assist FWW Supervision: Hands on Surveillance: Bed locked in low position, call blanco within reach, purposeful hourly rounding, clutter free environment, bed/chair alarm on, family at bedside Patient-specific fall prevention interventions for sensory deficits provided: N/A CPG GOAL OUTCOME EVALUATION: Continue care plan as documented. Problem: Adult Inpatient Plan of Care Goal: [...] Implemented as Appropriate) Problem: Adjustment to Illness (Stroke, Ischemic/Transient Ischemic Attack) Goal: Optimal Coping Outcome: Ongoing (Interventions Implemented as Appropriate) Problem: Bowel Elimination Impaired (Stroke, Ischemic/Transient Ischemic Attack) Goal: Effective Bowel Elimination Outcome: Ongoing (Interventions Implemented as Appropriate) Problem: Cerebral Tissue Perfusion (Stroke, Ischemic/Transient Ischemic Attack) Goal: Optimal Cerebral Tissue Perfusion Outcome: Ongoing (Interventions Implemented as Appropriate) Problem: Cognitive Impairment (Stroke, Ischemic/Transient Ischemic Attack) Goal: Optimal Cognitive Function Outcome: Ongoing (Interventions Implemented as Appropriate) Problem: Communication Impairment (Stroke, Ischemic/Transient Ischemic Attack) Goal: Improved Communication Skills Outcome: Ongoing (Interventions Implemented as Appropriate) Problem: Functional Ability Impaired (Stroke, Ischemic/Transient Ischemic Attack) Goal: Optimal Functional Ability Outcome: Ongoing (Interventions Implemented as Appropriate) Problem: Respiratory Compromise (Stroke, Ischemic/Transient Ischemic Attack) Goal: Effective Oxygenation and Ventilation Outcome: Ongoing (Interventions Implemented as Appropriate) Problem: Sensorimotor Impairment (Stroke, Ischemic/Transient Ischemic Attack) Goal: Improved Sensorimotor Function Outcome: Ongoing (Interventions Implemented as Appropriate) Problem: Eating/Swallowing Impairment (Stroke, Ischemic/Transient Ischemic Attack) Goal: Oral Intake without Aspiration Outcome: Ongoing (Interventions Implemented as Appropriate) Problem: Urinary Elimination Impaired (Stroke, Ischemic/Transient Ischemic Attack) Goal: Effective Urinary Elimination Outcome: Ongoing (Interventions Implemented as Appropriate) Problem: Bleeding Goal: Absence of Bleeding Outcome: Ongoing (Interventions Implemented as Appropriate) * Plan of Care - Carl Martínez RN - 02/27/2024 6:01 PM EDT OUTCOME EVALUATION NOTE: OUTCOME SUMMARY: No acute events this shift; VSS, on room air, intake and output recorded, Dixon in place, Dixon care completed, BM this shift, Ambulated to bathroom x2 assist, PLAN MOVING FORWARD: Discharge planning, neuro checks, tele monitor, VS q4, increase mobility INDIVIDUALIZED FALL PREVENTION INTERVENTIONS: Patient-specific fall risk factors per assessment: [2 assist with a walker] Assistance: 1-2 assist FWW Supervision: Hands on Surveillance: Bed locked in low position, call blanco within reach, purposeful hourly rounding, clutter free environment, bed/chair alarm on, family at bedside Patient-specific fall prevention interventions for sensory deficits provided: N/A CPG GOAL OUTCOME EVALUATION: Continue care plan as documented. Problem: Adult Inpatient Plan of Care Goal: [...] Implemented as Appropriate) Problem: Adjustment to Illness (Stroke, Ischemic/Transient Ischemic Attack) Goal: Optimal Coping Outcome: Ongoing (Interventions Implemented as Appropriate) Problem: Bowel Elimination Impaired (Stroke, Ischemic/Transient Ischemic Attack) Goal: Effective Bowel Elimination Outcome: Ongoing (Interventions Implemented as Appropriate) Problem: Cerebral Tissue Perfusion (Stroke, Ischemic/Transient Ischemic Attack) Goal: Optimal Cerebral Tissue Perfusion Outcome: Ongoing (Interventions Implemented as Appropriate) Problem: Cognitive Impairment (Stroke, Ischemic/Transient Ischemic Attack) Goal: Optimal Cognitive Function Outcome: Ongoing (Interventions Implemented as Appropriate) Problem: Communication Impairment (Stroke, Ischemic/Transient Ischemic Attack) Goal: Improved Communication Skills Outcome: Ongoing (Interventions Implemented as Appropriate) Problem: Functional Ability Impaired (Stroke, Ischemic/Transient Ischemic Attack) Goal: Optimal Functional Ability Outcome: Ongoing (Interventions Implemented as Appropriate) Problem: Respiratory Compromise (Stroke, Ischemic/Transient Ischemic Attack) Goal: Effective Oxygenation and Ventilation Outcome: Ongoing (Interventions Implemented as Appropriate) Problem: Sensorimotor Impairment (Stroke, Ischemic/Transient Ischemic Attack) Goal: Improved Sensorimotor Function Outcome: Ongoing (Interventions Implemented as Appropriate) Problem: Eating/Swallowing Impairment (Stroke, Ischemic/Transient Ischemic Attack) Goal: Oral Intake without Aspiration Outcome: Ongoing (Interventions Implemented as Appropriate) Problem: Urinary Elimination Impaired (Stroke, Ischemic/Transient Ischemic Attack) Goal: Effective Urinary Elimination Outcome: Ongoing (Interventions Implemented as Appropriate) Problem: Bleeding Goal: Absence of Bleeding Outcome: Ongoing (Interventions Implemented as Appropriate) * Care Management - Hortencia Tillman RN - 02/26/2024 3:18 PM EDT OFFICE OF CARE MANAGEMENT PROGRESS NOTE LOS: Hospital Day 3 days Chart reviewed, care reviewed with primary team and at interdisciplinary rounds. 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 Current Living Arrangements: home/apartment/condo. Accessibility Concerns: Lives with spouse No DME 2 levels to home 4 EARLE Bed upstairs Bath downstairs. Current Functional Ability: Assistive Person DME used at home: none DME Needed at Discharge: No Patient is insured through: Primary Insurance: [employer] MANAGED MEDICARE Payor: [employer] MANAGED MEDICARE / Plan: [employer] MANAGED MEDICARE / Product Type: *No Product type* / Secondary Insurance: N/A Last Physical Therapy Recommendation: acute rehabilitation facility with to be determined Last Occupational Therapy Recommendation: acute rehabilitation facility with Plan for discharge is: Acute Rehab Outpatient Agency/Support Group Needs: None Agency Referrals: Based on discussions with the multi-disciplinary healthcare team, the patient would benefit from Acute Rehab level of care at discharge. I have met with the patient to: discuss discharge planning needs. provide the [facility], Office of Care Management letter from the Deputy Probation Officer pertaining to rehab referrals. provide a letter describing our affiliations within the [facility] and educate about their right to choose where referrals are sent. provide the [facility] Star Quality Rating handout. review the different levels of rehab including SNF, swing, and acute. provide a list of facilities within their preferred geographic area. request that they provide at least three choices for referral. They have requested referrals to: [facility] Acute Rehabilitation and Sub-Acute (Swing) Rehab Levels of Care [address] [place] [address] Does patient have COVID vaccine card: No Note routed to a Golf Course Keeper who will communicate referrals to facilities and provide any required information. Transportation: TBD Barriers to discharge: None Plan going forward: Met with pt and spouse, they live in [facility] and [facility]. Referrals placed. Care Management will continue to follow and assist with discharge planning and coordination of care as indicated. Anticipated Date of Discharge: 02/28/2024 * Plan of Care - Lili Tineo RN - 02/26/2024 10:45 AM EDT OUTCOME EVALUATION NOTE: OUTCOME SUMMARY: Alert and orientated x4, with slightly delayed responses. Denies loss of sensation. On assessment has extinction to bilateral stimulation on left extremities. Minor left sided pronation drift. Remains on RA with clear/dim lung sounds. NSR, afebrile. BG elevated into 200s, team aware. Dixon in placefor retention with adequate output. 10mg of lasix given. PLAN MOVING FORWARD: PT/OT DC planning Problem: Adult Inpatient Plan of Care Goal: Plan of Care Review 02/26/2024 104 by Lili Tineo RN Outcome: Ongoing (Interventions Implemented as Appropriate) 02/26/2024 104 by Lili Tineo RN Outcome: Ongoing (Interventions Implemented as Appropriate) Goal: Patient-Specific Goal (Individualized) 02/26/2024 104 by Lili Tineo RN Outcome: Ongoing (Interventions Implemented as Appropriate) 02/26/2024 104 by Lili Tineo RN Outcome: Ongoing (Interventions Implemented as Appropriate) Goal: Absence of Hospital-Acquired Illness or Injury 02/26/2024 104 by Lili Tineo RN Outcome: Ongoing (Interventions Implemented as Appropriate) 02/26/2024 104 by Lili Tineo RN Outcome: Ongoing (Interventions Implemented as Appropriate) Goal: Optimal Comfort and Wellbeing 02/26/2024 104 by Lili Tineo RN Outcome: Ongoing (Interventions Implemented as Appropriate) 02/26/2024 104 by Lili Tineo RN Outcome: Ongoing (Interventions Implemented as Appropriate) Goal: Readiness for Transition of Care 02/26/2024 104 by Lili Tineo RN Outcome: Ongoing (Interventions Implemented as Appropriate) 02/26/2024 104 by Lili Tineo RN Outcome: Ongoing (Interventions Implemented as Appropriate) Problem: Fall Injury Risk Goal: Absence of Fall and Fall-Related Injury 02/26/2024 104 by Lili Tineo RN Outcome: Ongoing (Interventions Implemented as Appropriate) 02/26/2024 104 by Lili Tineo RN Outcome: Ongoing (Interventions Implemented as Appropriate) Problem: Adjustment to Illness (Stroke, Ischemic/Transient Ischemic Attack) Goal: Optimal Coping 02/26/2024 104 by Lili Tineo RN Outcome: Ongoing (Interventions Implemented as Appropriate) 02/26/2024 104 by Lili Tinoe RN Outcome: Ongoing (Interventions Implemented as Appropriate) Problem: Bowel Elimination Impaired (Stroke, Ischemic/Transient Ischemic Attack) Goal: Effective Bowel Elimination 02/26/2024 1045 by Lili Tineo RN Outcome: Ongoing (Interventions Implemented as Appropriate) 02/26/2024 1040 by Lili Tineo RN Outcome: Ongoing (Interventions Implemented as Appropriate) Problem: Cerebral Tissue Perfusion (Stroke, Ischemic/Transient Ischemic Attack) Goal: Optimal Cerebral Tissue Perfusion 02/26/2024 1045 by Lili Tineo RN Outcome: Ongoing (Interventions Implemented as Appropriate) 02/26/2024 1040 by Lili Tineo RN Outcome: Ongoing (Interventions Implemented as Appropriate) Problem: Cognitive Impairment (Stroke, Ischemic/Transient Ischemic Attack) Goal: Optimal Cognitive Function 02/26/2024 1045 by Lili Tineo RN Outcome: Ongoing (Interventions Implemented as Appropriate) 02/26/2024 1040 by Lili Tineo RN Outcome: Ongoing (Interventions Implemented as Appropriate) Problem: Communication Impairment (Stroke, Ischemic/Transient Ischemic Attack) Goal: Improved Communication Skills 02/26/2024 1045 by Lili Tineo RN Outcome: Ongoing (Interventions Implemented as Appropriate) 02/26/2024 1040 by Lili Tineo RN Outcome: Ongoing (Interventions Implemented as Appropriate) Problem: Functional Ability Impaired (Stroke, Ischemic/Transient Ischemic Attack) Goal: Optimal Functional Ability 02/26/2024 1045 by Lili Tineo RN Outcome: Ongoing (Interventions Implemented as Appropriate) 02/26/2024 1040 by Lili Tineo RN Outcome: Ongoing (Interventions Implemented as Appropriate) Problem: Respiratory Compromise (Stroke, Ischemic/Transient Ischemic Attack) Goal: Effective Oxygenation and Ventilation 02/26/2024 1045 by Lili Tineo RN Outcome: Ongoing (Interventions Implemented as Appropriate) 02/26/2024 1040 by Lili Tineo RN Outcome: Ongoing (Interventions Implemented as Appropriate) Problem: Sensorimotor Impairment (Stroke, Ischemic/Transient Ischemic Attack) Goal: Improved Sensorimotor Function 02/26/2024 1045 by Lili Tineo RN Outcome: Ongoing (Interventions Implemented as Appropriate) 02/26/2024 1040 by Lili Tineo RN Outcome: Ongoing (Interventions Implemented as Appropriate) Problem: Eating/Swallowing Impairment (Stroke, Ischemic/Transient Ischemic Attack) Goal: Oral Intake without Aspiration 02/26/2024 1045 by Lili Tineo RN Outcome: Ongoing (Interventions Implemented as Appropriate) 02/26/2024 1040 by Lili Tineo RN Outcome: Ongoing (Interventions Implemented as Appropriate) Problem: Urinary Elimination Impaired (Stroke, Ischemic/Transient Ischemic Attack) Goal: Effective Urinary Elimination 02/26/2024 1045 by Liil Tineo RN Outcome: Ongoing (Interventions Implemented as Appropriate) 02/26/2024 1040 by Lili Tineo RN Outcome: Ongoing (Interventions Implemented as Appropriate) Problem: Bleeding Goal: Absence of Bleeding 02/26/2024 1045 by Lili Tineo RN Outcome: Ongoing (Interventions Implemented as Appropriate) 02/26/2024 1040 by Lili Tineo RN Outcome: Ongoing (Interventions Implemented as Appropriate) * Plan of Care - Ale Donahue RN - 02/25/2024 7:06 PM EDT Problem: Adult Inpatient Plan of Care Goal: [...] Implemented as Appropriate) Problem: Adjustment to Illness (Stroke, Ischemic/Transient Ischemic Attack) Goal: Optimal Coping Outcome: Ongoing (Interventions Implemented as Appropriate) Problem: Bowel Elimination Impaired (Stroke, Ischemic/Transient Ischemic Attack) Goal: Effective Bowel Elimination Outcome: Ongoing (Interventions Implemented as Appropriate) Problem: Cerebral Tissue Perfusion (Stroke, Ischemic/Transient Ischemic Attack) Goal: Optimal Cerebral Tissue Perfusion Outcome: Ongoing (Interventions Implemented as Appropriate) Problem: Cognitive Impairment (Stroke, Ischemic/Transient Ischemic Attack) Goal: Optimal Cognitive Function Outcome: Ongoing (Interventions Implemented as Appropriate) Problem: Communication Impairment (Stroke, Ischemic/Transient Ischemic Attack) Goal: Improved Communication Skills Outcome: Ongoing (Interventions Implemented as Appropriate) Problem: Functional Ability Impaired (Stroke, Ischemic/Transient Ischemic Attack) Goal: Optimal Functional Ability Outcome: Ongoing (Interventions Implemented as Appropriate) Problem: Respiratory Compromise (Stroke, Ischemic/Transient Ischemic Attack) Goal: Effective Oxygenation and Ventilation Outcome: Ongoing (Interventions Implemented as Appropriate) Problem: Sensorimotor Impairment (Stroke, Ischemic/Transient Ischemic Attack) Goal: Improved Sensorimotor Function Outcome: Ongoing (Interventions Implemented as Appropriate) Problem: Eating/Swallowing Impairment (Stroke, Ischemic/Transient Ischemic Attack) Goal: Oral Intake without Aspiration Outcome: Ongoing (Interventions Implemented as Appropriate) Problem: Urinary Elimination Impaired (Stroke, Ischemic/Transient Ischemic Attack) Goal: Effective Urinary Elimination Outcome: Ongoing (Interventions Implemented as Appropriate) Problem: Bleeding Goal: Absence of Bleeding Outcome: Ongoing (Interventions Implemented as Appropriate) * Plan of Care - Ginny Crenshaw RN - 02/25/2024 6:40 PM EDT OUTCOME EVALUATION NOTE: OUTCOME SUMMARY: Pt. VSS and no acute neuro changes throughout shift. MRI and bilateral CUS duplex completed today, EEG removed. Pt. noted to be febrile early this afternoon, tylenol given with good effect. Pt. Na low, per MD encourage salt intake with food within cardiac diet limits. Pt. downgraded to floor status. PLAN MOVING FORWARD: -move to floor bed when available CARE PLAN GOAL OUTCOME EVALUATION: Problem: Adult Inpatient Plan of Care Goal: Absence of Hospital-Acquired Illness or Injury Outcome: Ongoing (Interventions Implemented as Appropriate) Problem: Adult Inpatient Plan of Care Goal: Optimal Comfort and Wellbeing Outcome: Ongoing (Interventions Implemented as Appropriate) Problem: Fall Injury Risk Goal: Absence of Fall and Fall-Related Injury Outcome: Ongoing (Interventions Implemented as Appropriate) Problem: Adjustment to Illness (Stroke, Ischemic/Transient Ischemic Attack) Goal: Optimal Coping Outcome: Ongoing (Interventions Implemented as Appropriate) Problem: Cognitive Impairment (Stroke, Ischemic/Transient Ischemic Attack) Goal: Optimal Cognitive Function Outcome: Ongoing (Interventions Implemented as Appropriate) Problem: Sensorimotor Impairment (Stroke, Ischemic/Transient Ischemic Attack) Goal: Improved Sensorimotor Function Outcome: Ongoing (Interventions Implemented as Appropriate) Problem: Urinary Elimination Impaired (Stroke, Ischemic/Transient Ischemic Attack) Goal: Effective Urinary Elimination Outcome: Ongoing (Interventions Implemented as Appropriate) * Consult Note - Byron Giraldo MD - 02/25/2024 1:14 PM EDT There is no cardiology follow up needed before discharge. At discharge, please - continue DAPT - ensure he has outpatient follow up scheduled with us - continue zetia and rosuvastatin - continue metop tartrate 100 bid * Consult Note - Yesenia Spencer RN - 02/25/2024 8:49 AM EDTSummary: VAS Rounding During VAS Purposeful Rounding, an assessment of [...] of your patient's central line dressing integrity [] Review of indications for vascular access [] [...] [] Other * Plan of Care - Arian Myers RN - 02/25/2024 6:39 AM EDT OUTCOME EVALUATION NOTE: OUTCOME SUMMARY: Pt A+Ox4 during shift, following commands x4 with L sided weakness and R gaze preference. 2100 noted to have significantly increased delayed responses and new LUE twitching. Notified NCCU providers, STAT HCT completed and cvEEG placed. See flowsheets for full neuro exam. R groin site remains CDI. Pt on RA during shift, tolerating. NSR during shift and BP remained within goal without need for interventions. No BM this shift. Dixon in place with AUOP, catheter care provided. PRN tylenol given d/ttemp 38.6 and headache, provider notified, recovered with good effect. remains at bedside. PLAN MOVING FORWARD: q1 neuro q1 VS q2 I/Os SBP <160 CARE PLAN GOAL OUTCOME EVALUATION: Problem: Urinary Elimination Impaired (Stroke, Ischemic/Transient Ischemic Attack) Goal: Effective Urinary Elimination Outcome: Ongoing (Interventions Implemented as Appropriate) Problem: Bleeding Goal: Absence of Bleeding Outcome: Ongoing (Interventions Implemented as Appropriate) Problem: Sensorimotor Impairment (Stroke, Ischemic/Transient Ischemic Attack) Goal: Improved Sensorimotor Function Outcome: Ongoing (Interventions Implemented as Appropriate) Problem: Cognitive Impairment (Stroke, Ischemic/Transient Ischemic Attack) Goal: Optimal Cognitive Function Outcome: Ongoing (Interventions Implemented as Appropriate) Problem: Cerebral Tissue Perfusion (Stroke, Ischemic/Transient Ischemic Attack) Goal: Optimal Cerebral Tissue Perfusion Outcome: Ongoing (Interventions Implemented as Appropriate) Problem: Adjustment to Illness (Stroke, Ischemic/Transient Ischemic Attack) Goal: Optimal Coping Outcome: Ongoing (Interventions Implemented as Appropriate) * Plan of Care - Shayne Hernandez RN - 02/24/2024 7:35 PM EDT OUTCOME EVALUATION NOTE: OUTCOME SUMMARY: Patient arrived to NCCU s/p stroke alert/stroke in asset availability leader; patient received TPA, see life safety note for timeline AOx4, Follows, NSR, PERRLA, Room air, Right side 4/4 Left side 3/3 Bedside swallow performed, Normal diet ordered PRN tylenol given x1 for posterior headache PLAN MOVING FORWARD: Q1 NC Q1 VS Q1 hematoma check 24 hour post-TPA stability CT CARE PLAN GOAL OUTCOME EVALUATION: Problem: Adult Inpatient Plan of Care Goal: [...] Injury Outcome: Ongoing (Interventions Implemented as Appropriate) * Consult Note - Klarissa Nguyễn RN - 02/24/2024 3:26 PM EDT Life Safety Program STROKE ALERT Called to see Johnson Tobar who is a 73 y.o.male by RN for an acute mental status change.. Admission Date/Time 02/23/2024 8:38 PM Hospital Day 1 day Problem List: Active Hospital Problems Diagnosis NSTEMI (non-ST elevated myocardial infarction) Resolved Hospital Problems No resolved problems to display. Active Non-Hospital Problems Diagnosis Type 2 diabetes mellitus, without long-term current use of insulin S/P CABG (coronary artery bypass graft) S/P AVR (aortic valve replacement) CAD (coronary artery disease) Aortic valve stenosis Type 2 diabetes mellitus ASCVD (arteriosclerotic cardiovascular disease) HTN (hypertension) DJD (degenerative joint disease) Elevated cholesterol Aortic stenosis Allergies Allergen Reactions Lisinopril Other (See Comments) ILaboratory: Lab Results Component Value Date White Blood Cell 4.94 02/24/2024 Hemoglobin 10.5 (L) 02/24/2024 Hematocrit 30.7 (L) 02/24/2024 Platelet 172 02/24/2024 International Normalization Ratio 1.1 02/24/2024 Prothrombin Time 12.3 02/24/2024 Partial Thromboplastin Time 29 02/24/2024 Potassium 4.0 02/24/2024 Calcium 9.7 02/24/2024 Carbon Dioxide 19 (L) 02/24/2024 Blood Urea Nitrogen 12 02/24/2024 Creatinine 0.95 02/24/2024 Studies: Labs:CBC/ BMP/ PTT Radiology: CT Head Assessment: Stroke Alert called at 12:43 in [employer] Operator, Anesthesia had given Versed 1mg IV and Fentanyl 37.5 mg IV during case and upon assessment patient was lethargic with delayed speech and weak on left upper and lower extremity. Narcan 0.4mg was administered by Anesthesia at 1245 per MAR. Bld glucose 124. Life Safety and Neurology Stroke were in Cath recovery when patient arrived. Patients eyes were open to voice, able to state his name in a delayed response but did not answer other orientation questions. Pupils were 4mm round and reactive. Patient able to follow commands when asked on right side, 3+ strength to both upper and lower extremity. Left upper was non- purposeful with +1 strength and lower extremity with no movement. R groin site with c/d/I dressing. Patient was transported to CT scanwith no events en route. When we arrived back to Cath Recovery, labs were drawn. Neurology Attending at bedside and agreed with the decision to administer TPA. Patients Emili was at bedside and agreed. TPA bolus began [id number] and TPA infusion started at 1421. Vitals and Neuro assessments charted in flowsheets. During TPA administration patient was able to answer all orientation questions correctly and started to follow commands on left side. Patient transported to NCCU room 31. Plan: medications administered were: TPA and labs obtained, PTT Transferred to: NCCU Please page Life Safety at [phone] with any questions or concerns. Klarissa Nguyễn RN 3:26 PM February 24, 2024 * Consult Note - Arti Griffin MD - 02/24/2024 1:10 PM EDT Neurology Consult Note Patient name:Johnson Tobar Date of :1950 Admit date: 02/23/2024 Attending: Dr. Griffin CC: Stroke Alert Date last well known:: 02/24/24 Time last well known:: 1215 Date of discovery of symptoms:: 02/24/24 Time of discovery of symptoms:: 1250 Was dysphagia screen performed?: No NIH Stroke Scale NIH Stroke Scale Date 02/24/24 NIH Stroke Scale Time 1250 Level of Consciousness 0 LOC Questions 1 LOC Commands 1 Best Gaze 1 Vision 1 Facial Palsy 1 Motor Arm, Left 3 Motor Arm, Right 0 Motor Leg, Left 3 Motor Leg, Right 1 Limb Ataxia 0 Sensory 0 Best Language 2 Dysarthria 0 Extinction and Inattention: 0 NIH Total Score 14 We have been asked to see Johnson Tobar by interventional cardiology as a stroke alert. ID: Johnson Tobar is a 73 y.o. with PMH of ASCVD s/p CABG x 3 (MCKEON --> LAD, SVG --> OM1 --> D1) and RCA PCI (06/2023), severe s/p AVR (05/2020), DM2, HTN, HLD who initially presented on 02/22 with chest pressure and light- headedness concerning for ACS. Pt was admitted to Cardiology service and initiated on heparin gtt. Earlier today, he was taken to the asset availability leader, though no intervention required. After procedure, patient noted to have RIGHT gaze preference, dysarthria, left tongue deviation, and LEFT hemibody weakness. Past Medical History: Patient Active Problem List Diagnosis Code ASCVD (arteriosclerotic cardiovascular disease) I25.10 HTN (hypertension) I10 DJD (degenerative joint disease) M19.90 Elevated cholesterol E78.00 Aortic stenosis I35.0 Aortic valve stenosis I35.0 CAD (coronary artery disease) I25.10 S/P CABG (coronary artery bypass graft) Z95.1 S/P AVR (aortic valve replacement) Z95.2 Type 2 diabetes mellitus, without long-term current use of insulin E11.9 Type 2 diabetes mellitus E11.9 NSTEMI (non-ST elevated myocardial infarction) I21.4 Medications: acetaminophen, amLODIPine, amoxicillin, aspirin EC, blood sugar diagnostic strips, clopidogreL, dextromethorphan-guaiFENesin, empagliflozin, glipiZIDE XL, metFORMIN, metoprolol tartrate, multivitamin, omeprazole, rosuvastatin, sacubitriL-valsartan, and semaglutide Allergies: Allergies Allergen Reactions Lisinopril Other (See Comments) Family history: No family history on file. Physical Exam: Patient Vitals for the past 8 hrs: BP Temp Temp src Pulse Resp SpO2 02/24/24 1232 147/89 -- -- 76 16 98 % 02/24/24 1119 139/77 -- -- 83 18 98 % 02/24/24 1104 116/68 -- -- 69 -- -- 02/24/24 0738 122/75 36.8 ??C (98.3 ??F) Oral 74 16 97 % GEN- lethargic, arouses to voice. Able to state age and month. Delayed responses. Able to name flashlight, thumb, knuckles with continued stimulation. Mild dysarthria CN- RIGHT gaze preference, left visual neglect, LEFT facial asymmetry, left tongue deviation MOTOR- RUE: 5/5 RLE: unable to lift due to groin precautions from cath LUE: falls to bed before 10 seconds LLE: falls to bed before 5 seconds SENSATION - +extinction to BSS CEREBELLUM - FTN intact on RUE, JA HTS CV/PULM - normal WOB Labs: I/O 24 Hours: 02/22 0701 - 02/23 0700 In: 5 [I.V.:5] Out: 380 [Urine:380] I/O this shift: In: - Out: 400 [Urine:400] Recent Labs 02/24/24 03002/23/24 2137 WBC 5.20 5.78 HGB 11.3* 11.7* HCT 33.2* 34.5* PLATELET 151 158 NEUTROABS 3.74 4.24 Recent Labs 02/24/24 0302 02/23/24 2137 NA 131* 129* K 4.0 4.0 CL 96* 94* CO2 19* 20* BUN 12 14 CREATININE 0.95 1.00 GLUCOSE 88 126 Recent Labs 02/24/24 03002/23/24 2137 CALCIUM 9.7 9.6 MAGNESIUM 0.44* 0.43* No results for input(s): AST, ALT, ALKPHOS, BILITOT, BILIDIR, LDH in the last 168 hours. No results for input(s): TROPONINT, CK in the last 168 hours. No results for input(s): PHART, KGU2TMU, PO2ART, ANH2RXR in the last 168 hours. No results for input(s): INR in the last 72 hours. Lipid Panel Recent Labs 02/24/24301 HA1C 8.3* Diagnostic Tests and Imaging: CTA Multiphase 02/24/2024 IMPRESSION 1. 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 2. Severe right ICA origin stenosis. 3. Moderate-severe right intradural vertebral artery stenosis. 4. No intracranial hemorrhage. Assessment and Plan: 73 y.o. male w/ PMH of ASCVD s/p CABG x 3 (MCKEON --> LAD, SVG --> OM1 --> D1) and RCA PCI (06/2023), severe s/p AVR (05/2020), DM2, HTN, HLD who initially presented on 02/22 with chest pressure and light-headedness concerning for ACS. Patient was admitted to Cardiology service and initiated on heparin drip that was stopped at 1103. Stroke alert called for RIGHT gaze preference, dysarthria, left tongue deviation, and LEFT hemibody weakness concerning for acute stroke. CTA demonstrated right QUANTOMETER OPERATOR occlusion, severe right ICA origin stenosis, and moderate-severe right stenosis. PTT was in normal range. Risk vs. Benefit of TPA administration discussed with patient's at the bedside and decision was made to proceed with TPA. Concern for right MCA/borderzone infarctions. Etiology possibly due to hypotension/hypoperfusion during cardiac cath from right ICA stenosis. #Neuro: -Post TPA care per NCCU -Hold antiplatelet for 24 hours s/p TPA -avoid hypotension Stroke workup: -Brain MRI wo contrast -Bilateral CUS duplex -Lipids, hA1C -Tele Please page Vascular Neurology at #[phone] with any questions. Susanna Cm [place] [address] Neurology Attending Attestation I evaluated the patient with the Neurology Residents at the time of the stroke alert. I have reviewed the medical records and patient's history, as well as the resident???s and student's history and examination findings and I agree with the details as written. My neurologic examination confirms theresident???s findings. We formulated the assessment and plan after a detailed discussion, as documented. I was present through out the entire evaluation and decision making of this care including consideration for thrombolytics. Arti Griffin MD Vascular Neurology * Initial Assessments - Phillip Bernabe RN - 02/24/2024 1:08 PM EDT Office of Care Management Initial Assessment Medical record reviewed. Plan of care and patient status discussed with direct care Registered Nurse and/or Care Team in multidisciplinary rounds. Reason for Hospitalization: chest pressure and presyncope Per H&P: 73 y.o. male with a hx of CAD s/p CABGx3 MCKEON->LAD, Seq SVG->OM1->D1 and AVR 23 mm Inspriris bioprosthesis 06/13/2020 for severe , mid and proximal RCA PCI 06/2023, niddm2, HTN, HLD who presented [facility] with chest pressure and lightheadeness [facility]. Last COVID test: Lab Results Component Value Date COVID19 Not Detected 06/10/2020 Present on Admission: NSTEMI (non-ST elevated myocardial infarction) Daily Update: 02/23: [facility] today and d/c tomorrow or next day Surgery: 02/23: [facility] today Hospitalizations Within the Past 30 Days: no previous admission in last 30 days Patient receiving hospital care under Inpatient status. Admission order reviewed. Health/Prescription Coverage: Primary Insurance: [employer] Payor: [employer] / Plan: [employer]ICARE / Product Type: *No Product type* / Secondary Insurance: N/A ; Prescription Coverage: Yes Preferred Pharmacy: [facility] - [place], [place] - [address] [facility] [address] [facility] [place] [address] Advance Care Planning: Attempt Cardiopulmonary Resuscitation - Inpatient <no information> -Advanced Directive: No, need to discuss (SDM:Emili Tobar (Spouse)) Current Functional Ability: Assistive Person Functional Status Prior to Admission: Independent Home Environment: Others in the home: spouse. Current Living Arrangements: home/apartment/condo. Accessibility Concerns:Lives with spouse No DME 2 levels to home 4 EARLE Bed upstairs Bath downstairs. Current DME: none [address] [place] [address] Social & Family Supports: All names listed below confirmed with patient as current and correct Extended Emergency Contact Information Primary Emergency Contact: Emili Tobar Address: [address] [place] [address] of [facility] Mobile Relation: Spouse Secondary Emergency Contact: Ilda Tobar Relation: Parent Current Care Provided by: self Transportation: no concerns Transportation Anticipated: family or friend will provide Assessment: Patient with no apparent RNCM/SW needs at this time. No housing, transportation, insurance, resources concerns identified at this time. Supports in place to achieve a safe post-hospital transition. No identified barriers to accessing necessary care and/or follow-up after discharge. Plan: Patient to d/c to home without services via car when medically ready. Registered Nurse Pipe Finisher / Aerospace Engineer Officer Armament will continue to follow patient???s progress and remain available if situation changes for coordination of care, psychosocial support and/or discharge planning. Office of Care Management Phillip Bernabe RN RN/CM - Cellphone: [phone] Pager: [phone] Covering Service RN/CM documented in this encounter Plan of Treatment Upcoming Encounters Date Type Department Care Team (Late st Contact Info) Description 08/27/2024 2:30 PM EST Office [place] [address] Susanna Cm APRN [facility] [address] Scheduled Referrals Name Type Priority Associated Diagnoses Order Schedule Referral to Cardiology Outpatient Referral Urgent NSTEMI (non-ST elevated myocardial infarction) Ordered: 03/02/2024 documented as of this encounter Procedures Procedure Name Priority Date/Time Associated Diagnosis Comments POC, GLUCOSE Routine 03/02/2024 12:13 PM EDT POC, GLUCOSE Routine 03/02/2024 7:19 AM EDT CBC (WITH DIFF) Routine 03/02/2024 5:58 AM EDT BASIC METABOLIC PANEL Routine 03/02/2024 5:58 AM EDT POC, GLUCOSE Routine 03/01/2024 8:24 PM EDT POC, GLUCOSE Routine 03/01/2024 4:27 PM EDT POC, GLUCOSE Routine 03/01/2024 11:33 AM EDT POC, GLUCOSE Routine 03/01/2024 7:11 AM EDT BASIC METABOLIC PANEL Routine 03/01/2024 5:36 AM EDT POC, GLUCOSE Routine 02/29/2024 8:32 PM EDT POC, GLUCOSE Routine 02/29/2024 4:26 PM EDT POC, GLUCOSE Routine 02/29/2024 11:51 AM EDT POC, GLUCOSE Routine 02/29/2024 11:36 AM EDT POC, GLUCOSE Routine 02/29/2024 7:31 AM EDT BASIC METABOLIC PANEL Routine 02/29/2024 5:52 AM EDT POC, GLUCOSE Routine 02/28/2024 9:22 PM EDT _URINALYSIS WITH MICRSOCOPIC Routine 02/28/2024 8:58 PM EDT URINALYSIS MICROSCOPIC EXAM Routine 02/28/2024 8:58 PM EDT ELECTROLYTES, URINE, RANDOM Routine 02/28/2024 8:58 PM EDT OSMOLALITY, URINE, RANDOM Routine 02/28/2024 8:58 PM EDT URINALYSIS DIPSTICK Routine 02/28/2024 8 :58 PM EDT POC, GLUCOSE Routine 02/28/2024 4:49 PM EDT POC, GLUCOSE Routine 02/28/2024 11:22 AM EDT XR CHEST ONE VIEW Routine 02/28/2024 10: 13 AM EDT POC, GLUCOSE Routine 02/28/2024 7:24 AM EDT CBC (WITH DIFF) Routine 02/28/2024 5:33 AM EDT OSMOLALITY Add-On 02/28/2024 5:33 AM EDT MAGNESIUM Routine 02/28/2024 5:33 AM EDT BASIC METABOLIC PANEL Routine 02/28/2024 5:33 AM EDT POC, GLUCOSE Routine 02/27/2024 8:50 PM EDT POC, GLUCOSE Routine 02/27/2024 3:25 PM EDT POC, GLUCOSE Routine 02/27/2024 11:09 AM EDT POC, GLUCOSE Routine 02/27/2024 7:25 AM EDT CBC (WITH DIFF) Routine 02/27/2024 6:30 AM EDT OSMOLALITY Add-On 02/27/2024 6:30 AM EDT MAGNESIUM Routine 02/27/2024 6:30 AM EDT BASIC METABOLIC PANEL Routine 02/27/2024 6:30 AM EDT POC, GLUCOSE Routine 02/26/2024 9:14 PM EDT POC, GLUCOSE Routine 02/26/2024 5:00 PM EDT POC, GLUCOSE Routine 02/26/2024 3:51 PM EDT POC, GLUCOSE Routine 02/26/2024 11:31 AM EDT POC, GLUCOSE Routine 02/26/2024 9:35 AM EDT POC, GLUCOSE Routine 02/26/2024 7:41 AM EDT POC, GLUCOSE Routine 02/26/2024 3:21 AM EDT POC, GLUCOSE Routine 02/26/2024 12:04 AM EDT CBC (WITH DIFF) Routine 02/26/2024 12:04 AM EDT OSMOLALITY Routine 02/26/2024 12:04 AM EDT MAGNESIUM Routine 02/26/2024 12:04 AM EDT BASIC METABOLIC PANEL Routine 02/26/2024 12:04 AM EDT POC, GLUCOSE Routine 02/25/2024 7:39 PM [...] POC, GLUCOSE Routine 02/25/2024 3:58 AM EDT CBC (WITH DIFF) Routine 02/25/2024 1:06 AM EDT MAGNESIUM Routine 02/25/2024 1:06 AM EDT BASIC METABOLIC [...] POC, GLUCOSE Routine 02/24/2024 3:24 PM EDT CBC (WITH DIFF) Routine 02/24/2024 1:31 PM EDT TSH Add-On 02/24/2024 1:31 PM EDT LIPID PANEL (REFLEX DIRECT LDL) Add-On 02/24/2024 1:31 PM EDT BASIC METABOLIC PANEL Routine 02/24/2024 1:31 PM EDT HC PARTIAL THROMBOPLASTIN TIME STAT 02/24/2024 1:25 PM EDT PROTHROMBIN TIME STAT 02/24/2024 1:25 PM EDT CTA HEAD/NECK MULTIPHASE (THROMBECTOMY PROTOCOL) Routine 02/24/2024 1:[address] HEAD WO CONTRAST (GENERIC) STAT 02/24/2024 1:10 PM EDT POC, GLUCOSE Routine 02/24/2024 12:45 PM EDT CARDIAC CATHETERIZATION Routine 02/24/2024 12:32 PM EDT POC, GLUCOSE Routine 02/24/2024 11:05 AM EDT ECHO COMPLETE W CONTRAST Routine 02/24/2024 9:18 AM EDT Coronary artery disease, unspecified vessel or lesion type, unspecified whether angina present, unspecified whether [place] or transplanted heart POC, GLUCOSE Routine 02/24/2024 7:40 AM EDT TROPONIN - SINGLE STAT Add-On 02/24/2024 3:0 2 AM EDT HEPARIN (UNFRACTIONATED) LEVEL Timed 02/24/2024 3:02 AM EDT PROTHROMBIN TIME Add-On 02/24/2024 3:02 AM EDT CBC (WITH DIFF) Routine 02/24/2024 3:02 AM EDT MAGNESIUM Routine 02/24/2024 3:02 AM EDT HEMOGLOBIN A1C Add-On 02/24/2024 3:02 AM EDT BASIC METABOLIC PANEL Routine 02/24/2024 3:02 AM EDT EKG 12-LEAD Routine 02/24/2024 2:00 AM EDT Coronary artery disease, unspecified vessel or lesion type, unspecified whether angina present, unspecified whether [place] or transplanted heart POC, GLUCOSE Routine 02/23/2024 9:40 PM EDT TROPONIN - SINGLE STAT 02/23/2024 9:3 7 PM EDT CBC (WITH DIFF) Routine 02/23/2024 9:37 PM EDT PRO-BRAIN NATRIURETIC PEPTIDE Routine 02/23/2024 9:37 PM EDT MAGNESIUM Routine 02/23/2024 9:37 PM EDT BASIC METABOLIC PANEL Routine 02/23/2024 9:37 PM EDT documented in this encounter Results * (ABNORMAL) POC, GLUCOSE (03/02/2024 12:13 PM EDT) Glucometer, POC 231(H) 65 - 199 mg/dL 03/02/2024 12:13 PM EDT [facility] Comment:Supplemental ranges: <140 mg/dL before meals <180 mg/dL all other times of the day. Blood CAPILLARY BLOOD / Unknown 03/02/2024 12:13 PM EDT 03/02/2024 12:14 PM EDT Kd Huggins MD POINT OF CARE TEST ORDERABLES Performing Organization Address City/State/[facility] Co de Phone Number [facility] [place] [address] * POC, GLUCOSE (03/02/2024 7:19 AM EDT) Glucometer, POC 156 65 - 199 mg/dL 03/02/2024 7:19 AM EDT [facility] Comment:Supplemental ranges: <140 mg/dL before meals <180 mg/dL all other times of the day. Blood CAPILLARY BLOOD / Unknown 03/02/2024 7:19 AM EDT 03/02/2024 7:19 AM EDT Kd Huggins MD POINT OF CARE TEST ORDERABLES [facility] [place] [address] * (ABNORMAL) CBC (with Diff) (03/02/2024 5:58 AM EDT) White Blood Cell 5.41 4.00 - 9.50 x10(3)/mc L 03/02/2024 6:35 AM EDT [facility] Red Blood Cell 3.61(L) 4.58 - 5.54 x10(6)/mc L 03/02/2024 6:35 AM EDT [facility] Hemoglobin 10.0(L) 13.7 - 16.5 g/dL 03/02/2024 6:35 AM EDT [facility] Hematocrit 28.9(L) 40.5 - 48.5 % 03/02/2024 6:35 AM EDT [facility] Mean Cell Volume 80.1(L) 82.9 - 93.1 fL 03/02/2024 6:35 AM EDT [facility] Mean Cell Hemoglobin 27.7 27.5 - 32.1 pg 03/02/2024 6:35 AM EDT [facility] Mean Cell Hemoglobin Concentration 34.6 32.0 - 35.7 g/dL 03/02/2024 6:35 AM EDT [facility] Platelet 253 145 - 357 x10(3)/mc L 03/02/2024 6:35 AM EDT [facility] Mean Platelet Volume 10.1 7.6 - 12.9 fL 03/02/2024 6:35 AM EDT [facility] RDW Standard Deviation 44.9 36.0 - 45.0 fL 03/02/2024 6:35 AM EDT [facility] RDW coefficient of variation 15.3(H) 11.4 - 13.8 % 03/02/2024 6:35 AM EDT [facility] NRBC% auto 0.0 % 03/02/2024 6:35 AM [facility] NRBC Absolute 0.00 0.00 - 0.00 x10(3)/mc L 03/02/2024 6:35 AM [facility] Neutrophil % 67.0 % 03/02/2024 6:35 AM [facility] Neutrophil Absolute (ANC) - Automated 3.62 1.70 - 6.10 x10(3)/mc L 03/02/2024 6:35 AM [facility] Lymph % 14.2 % 03/02/2024 6:35 AM [facility] Lymph Absolute 0.77(L) 0.90 - 3.20 x10(3)/mc L 03/02/2024 6:35 AM [facility] Monocyte % 14.4 % 03/02/2024 6:35 AM [facility] Monocyte Absolute 0.78 0.30 - 0.90 x10(3)/mc L 03/02/2024 6:35 AM [facility] Eos % 2.8 % 03/02/2024 6:35 AM [facility] Eos Absolute 0.15 0.00 - 0.40 x10(3)/mc L 03/02/2024 6:35 AM [facility] Basophil % 0.9 % 03/02/2024 6:35 AM [facility] Baso Absolute 0.05 0.00 - 0.10 x10(3)/mc L 03/02/2024 6:35 AM [facility] Immature Gran % 0.7 % 6:35 AM [facility] Immature Gran Absolute 0.04 0.00 - 0.04 x10(3)/mc L 03/02/2024 6:35 AM [facility] Blood VENOUS BLOOD SPECIMEN / Unknown IP Care Team Draw / Unknown 03/02/2024 5:58 AM EDT 03/02/2024 6:20 AM EDT Kd Huggins MD HEMATOLOGY ORDERAB LES [facility] [place] [address] * (ABNORMAL) Basic Metabolic Panel (03/02/2024 5:58 AM EDT) Glucose 159 65 - 199 mg/dL 03/02/2024 6:55 AM EDT [facility] Comment:Glucose Concentratio n >=200 mg/dL plus symptoms is consistent with Diabetes Mellitus. Blood Urea Nitrogen 12 10 - 20 mg/dL 03/02/2024 6:55 AM [facility] Creatinine 0.96 0.80 - 1.50 mg/dL 03/02/2024 6:55 AM [facility] Sodium 127(L) 135 - 145 mMol/L 03/02/2024 6:55 AM EDT [facility] Potassium 4.4 3.5 - 5.0 mMol/L 03/02/2024 6:55 AM [facility] Chloride 96(L) 98 - 107 mMol/L 03/02/2024 6:55 AM [facility] Carbon Dioxide 19(L) 22 - 31 mMol/L 03/02/2024 6:55 AM [facility] Anion Gap 12 5 - 15 mMol/L 03/02/2024 6:55 AM [facility] Calcium 9.5 8.5 - 10.5 mg/dL 03/02/2024 6:55 AM [facility] Est Glomerular Filtration Rate - Male 83 mL/min/1. 73 m?? 03/02/2024 6:55 AM [facility] Comment: This patient's estimated GFR [...] Unknown IP Care Team Draw / Unknown 03/02/2024 5:58 AM EDT 03/02/2024 6:20 AM EDT Susanna Cm APRN CHEMISTRY ORDERABLE S Performing Organization Address City/[facility]/ZIP Co de Phone Number [facility] [place] [address] * POC, GLUCOSE (03/01/2024 8:24 PM EDT) Glucometer, POC 185 65 - 199 mg/dL 03/01/2024 8:24 PM EDT [facility] Comment:Supplemental ranges: <140 mg/dL before meals <180 mg/dL all other times of the day. Blood CAPILLARY BLOOD / Unknown 03/01/2024 8:24 PM EDT 03/01/2024 8:25 PM EDT Kd Huggins MD POINT OF CARE TEST ORDERABLES Performing Organization Address City/[facility]/ZIP Co de Phone Number [facility] [place] [address] * POC, GLUCOSE (03/01/2024 4:27 PM EDT) Glucometer, POC 143 65 - 199 mg/dL 03/01/2024 4:27 PM EDT [facility] Comment:Supplemental ranges: <140 mg/dL before meals <180 mg/dL all other times of the day. Blood CAPILLARY BLOOD / Unknown 03/01/2024 4:27 PM EDT 03/01/2024 4:27 PM EDT Kd Huggins MD POINT OF CARE TEST ORDERABLES Performing Organization Address [facility] Co de Phone Number [facility] [place] [address] * POC, GLUCOSE (03/01/2024 11:33 AM EDT) Glucometer, POC 187 65 - 199 mg/dL 03/01/2024 11:33 AM EDT [facility] Comment:Supplemental ranges: <140 mg/dL before meals <180 mg/dL all other times of the day. Blood CAPILLARY BLOOD / Unknown 03/01/2024 11:33 AM EDT 03/01/2024 11:33 AM EDT Kd Huggins MD POINT OF CARE TEST ORDERABLES Performing Organization Address [facility] Co de Phone Number [facility] [place] [address] * POC, GLUCOSE (03/01/2024 7:11 AM EDT) Glucometer, POC 164 65 - 199 mg/dL 03/01/2024 7:11 AM EDT [facility] Comment:Supplemental ranges: <140 mg/dL before meals <180 mg/dL all other times of the day. Blood CAPILLARY BLOOD / Unknown 03/01/2024 7:11 AM EDT 03/01/2024 7:11 AM EDT Kd Huggins MD POINT OF CARE TEST ORDERABLES Performing Organization Address [facility]/ZIP Co de Phone Number [facility] [place] [address] * (ABNORMAL) Basic Metabolic Panel (03/01/2024 5:36 AM EDT) Glucose 150 65 - 199 mg/dL 03/01/2024 6:26 AM EDT [facility] Comment:Glucose Concentratio n >=200 mg/dL plus symptoms is consistent with Diabetes Mellitus. Blood Urea Nitrogen 13 10 - 20 mg/dL [facility] Creatinine 0.88 0.80 - 1.50 mg/dL 03/01/2024 6:26 AM [facility] Sodium 128(L) 135 - 145 mMol/L 03/01/2024 6:26 AM [facility] Potassium 4.5 3.5 - 5.0 mMol/L 03/01/2024 6:26 AM [facility] Chloride 95(L) 98 - 107 mMol/L 03/01/2024 6:26 AM [facility] Carbon Dioxide 19(L) 22 - 31 mMol/L 03/01/2024 6:26 AM [facility] Anion Gap 14 5 - 15 mMol/L 03/01/2024 6:26 AM [facility] Calcium 9.6 8.5 - 10.5 mg/dL 03/01/2024 6:26 AM [facility] Est Glomerular Filtration Rate - Male 90 mL/min/1. 73 m?? 03/01/2024 6:26 AM [facility] Comment: This patient's estimated GFR [...] Unknown IP Care Team Draw / Unknown 03/01/2024 5:36 AM EDT 03/01/2024 5:51 AM EDT Susanna Cm TAPE RULES PRINTING MACHINE OPERATOR CHEMISTRY ORDERABLE S [facility] [place] [address] * POC, GLUCOSE (02/29/2024 8:32 PM EDT) Glucometer, POC 171 65 - 199 mg/dL 02/29/2024 8:33 PM EDT [facility] Comment:Supplemental ranges: <140 mg/dL before meals <180 mg/dL all other times of the day. Blood CAPILLARY BLOOD / Unknown 02/29/2024 8:32 PM EDT 02/29/2024 8:33 PM EDT Kd Huggins MD POINT OF CARE TEST ORDERABLES Performing Organization Address City/[facility]/ZIP Co de Phone Number [facility] [place] [address] * POC, GLUCOSE (02/29/2024 4:26 PM EDT) Glucometer, POC 105 65 - 199 mg/dL 02/29/2024 4:26 PM EDT [facility] Comment:Supplemental ranges: <140 mg/dL before meals <180 mg/dL all other times of the day. Blood CAPILLARY BLOOD / Unknown 02/29/2024 4:26 PM EDT 02/29/2024 4:26 PM EDT Kd Huggins MD POINT OF CARE TEST ORDERABLES [facility] [place] [address] * (ABNORMAL) POC, GLUCOSE (02/29/2024 11:51 AM EDT) Glucometer, POC 232(H) 65 - 199 mg/dL 02/29/2024 11:51 AM EDT [facility] Comment:Supplemental ranges: <140 mg/dL before meals <180 mg/dL all other times of the day. Blood CAPILLARY BLOOD / Unknown 02/29/2024 11:51 AM EDT 02/29/2024 11:51 AM EDT Kd Huggins MD POINT OF CARE TEST ORDERABLES [facility] [place] [address] * (ABNORMAL) POC, GLUCOSE (02/29/2024 11:36 AM EDT) Glucometer, POC 259(H) 65 - 199 mg/dL 02/29/2024 11:36 AM EDT [facility] Comment:Supplemental ranges: <140 mg/dL before meals <180 mg/dL all other times of the day. Blood CAPILLARY BLOOD / Unknown 02/29/2024 11:36 AM EDT 02/29/2024 11:36 AM EDT Kd Huggins MD POINT OF CARE TEST ORDERABLES Performing Organization Address City/[facility]/ZIP Co de Phone Number [facility] [place] [address] * POC, GLUCOSE (02/29/2024 7:31 AM EDT) Glucometer, POC 148 65 - 199 mg/dL 02/29/2024 7:32 AM EDT [facility] Comment:Supplemental ranges: <140 mg/dL before meals <180 mg/dL all other times of the day. Blood CAPILLARY BLOOD / Unknown 02/29/2024 7:31 AM EDT 02/29/2024 7:32 AM EDT Kd Huggins MD POINT OF CARE TEST ORDERABLES [facility] [place] [address] * (ABNORMAL) Basic Metabolic Panel (02/29/2024 5:52 AM EDT) Glucose 152 65 - 199 mg/dL 02/29/2024 7:01 AM EDT [facility] Comment:Glucose Concentratio n >=200 mg/dL plus symptoms is consistent with Diabetes Mellitus. Blood Urea Nitrogen 15 10 - 20 mg/dL 02/29/2024 7:01 AM [facility] Creatinine 0.95 0.80 - 1.50 mg/dL 02/29/2024 7:01 AM [facility] Sodium 127(L) 135 - 145 mMol/L 02/29/2024 7:01 AM [facility] Potassium 4.1 3.5 - 5.0 mMol/L 02/29/2024 7:01 AM [facility] Chloride 93(L) 98 - 107 mMol/L 02/29/2024 7:01 AM [facility] Carbon Dioxide 20(L) 22 - 31 mMol/L 02/29/2024 7:01 AM [facility] Anion Gap 14 5 - 15 mMol/L 02/29/2024 7:01 AM [facility] Calcium 9.3 8.5 - 10.5 mg/dL 02/29/2024 7:01 AM [facility] Est Glomerular Filtration Rate - Male 84 mL/min/1. 73 m?? 02/29/2024 7:01 AM [facility] Comment: This patient's estimated GFR [...] Unknown IP Care Team Draw / Unknown 02/29/2024 5:52 AM EDT 02/29/2024 6:26 AM EDT Susanna Cm [employer]ING MACHINE OPERATOR CHEMISTRY ORDERABLE S [facility] [place] [address] * POC, GLUCOSE (02/28/2024 9:22 PM EDT) Glucometer, POC 189 65 - 199 mg/dL 02/28/2024 9:22 PM EDT [facility] Comment:Supplemental ranges: <140 mg/dL before meals <180 mg/dL all other times of the day. Blood CAPILLARY BLOOD / Unknown 02/28/2024 9:22 PM EDT 02/28/2024 9:22 PM EDT Kd Huggins MD POINT OF CARE TEST ORDERABLES Performing Organization Address [facility]/ZIP Co de Phone Number [facility] [place] [address] * Urinalysis Microscopic Exam (02/28/2024 8:58 PM EDT) Pathologist [facility] Bacteria, Urine None None /HPF 9:21 PM EDT [facility] RBC, Urine 3 0 - 3 /HPF 02/28/2024 9:21 PM EDT [facility] WBC, Urine 1 0 - 3 /HPF 02/28/2024 9:21 PM EDT [facility] Squamous Epithelial Cells, Urine 0 0 - 5 /HPF 02/28/2024 9:21 PM EDT [facility] Hyaline Casts, Urine 0 0 - 2 /LPF 02/28/2024 9:21 PM EDT [facility] Urine URINE SPECIMEN / Unknown Non Blood Collection / Unknown 02/28/2024 8:58 PM EDT 02/28/2024 9:08 PM EDT Kd Huggins MD URINE ORDERABLES Performing Organization Address City/[facility]/ZIP Co de Phone Number [facility] [place] [address] * (ABNORMAL) Urinalysis Dipstick (02/28/2024 8:58 PM EDT) Glucose, Urine Dipstick Negative Negative 02/28/2024 9:21 PM [facility] Protein, Urine Dipstick 100 mg/dL(A) Negative 02/28/2024 9:21 PM [facility] Bilirubin, Urine Dipstick Negative Negative 02/28/2024 9:21 PM [facility] Comment:Clinical correlation required for positive Urine Bilirubin results as false positive may occur with some drugs and drug related products. If a false positive is suspected a serum total bilirubin should be considered if clinically indicated. Urobilinogen, Urine Dipstick Normal Normal, 0.2 mg/dL, 1.0 mg/dL 02/28/2024 9:21 PM [facility] pH, Urine (dipstick) 6.0 5.0 - 8.0 02/28/2024 9:21 PM [facility] Blood, Urine Dipstick Trace(A) Negative 02/28/2024 9:21 PM [facility] Ketone, Urine Dipstick Negative Negative 02/28/2024 9:21 PM [facility] Nitrite, Urine Dipstick Negative Negative 02/28/2024 9:21 PM [facility] Leukocytes, Urine Dipstick Negative Negative 02/28/2024 9:21 PM [facility] Specific [employer] Urine Automated 1.013 1.005 - 1.030 02/28/2024 9:21 PM [facility] Appearance, Urine Dipstick Clear Clear 02/28/2024 9:21 PM [facility] Color, Urine Dipstick Yellow Yellow, Dark Yellow 02/28/2024 9:21 PM [facility] Urine URINE SPECIMEN / Unknown Non Blood Collection / Unknown 02/28/2024 8:58 PM EDT 02/28/2024 9:08 PM EDT Kd Huggins MD URINE ORDERABLES Performing Organization Address [facility]/ZIP Co de Phone Number [facility] [place] [address] * Electrolytes, urine, random (02/28/2024 8:58 PM EDT) Sodium, Urine <20 mMol/L 02/28/2024 10:09 PM EDT [facility] Potassium, Urine 17 mMol/L 02/28/2024 10:09 PM EDT [facility] Chloride, Urine <20 mMol/L 02/28/2024 10:09 PM EDT [facility] Urine URINE SPECIMEN / Unknown Non Blood Collection / Unknown 02/28/2024 8:58 PM EDT 02/28/2024 9:08 PM EDT Kd Huggins MD URINE ORDERABLES Performing Organization Address [facility] Co de Phone Number [facility] [place] [address] * Osmolality, urine, random (02/28/2024 8:58 PM EDT) Osmolality, Urine 314 50 - 1,200 mOsm/kg 02/28/2024 10:27 PM EDT [facility] Urine URINE SPECIMEN / Unknown Non Blood Collection / Unknown 02/28/2024 8:58 PM EDT 02/28/2024 9:08 PM EDT Kd Huggins MD URINE ORDERABLES Performing Organization Address City/[facility]/ZIP Co de Phone Number [facility] [place] [address] * (ABNORMAL) POC, GLUCOSE (02/28/2024 4:49 PM EDT) Glucometer, POC 220(H) 65 - 199 mg/dL 02/28/2024 4:49 PM EDT [facility] Comment:Supplemental ranges: <140 mg/dL before meals <180 mg/dL all other times of the day. Blood CAPILLARY BLOOD / Unknown 02/28/2024 4:49 PM EDT 02/28/2024 4:49 PM EDT Kd Huggins MD POINT OF CARE TEST ORDERABLES Performing Organization Address [facility] de Phone Number [facility] [place] [address] * (ABNORMAL) POC, GLUCOSE (02/28/2024 11:22 AM EDT) Glucometer, POC 219(H) 65 - 199 mg/dL 02/28/2024 11:22 AM EDT [facility] Comment:Supplemental ranges: <140 mg/dL before meals <180 mg/dL all other times of the day. Blood CAPILLARY BLOOD / Unknown 02/28/2024 11:22 AM EDT 02/28/2024 11:22 AM EDT Kd Huggins MD POINT OF CARE TEST ORDERABLES Performing Organization Address [facility] de Phone Number [facility] [place] [address] * XR Chest One View (02/28/2024 10:13 AM EDT) Pathologist [employer] WORKSTATION ID [id number] DH RAD Anatomical Region Laterality Modality Chest N/A Digital Radiogra phy Impressions 02/28/2024 12:27 PM EDT No acute cardiopulmonary process. Specifically no evidence of pneumonia or pneumonitis. Thank you for letting us participate in the care of this patient. ??If you are a health care provider and have any questions regarding this report, please contact the number below. ??For patients who have questions please contact the health career services director that requested your imaging first. ? Narrative 02/28/2024 12:27 PM EDT EXAMINATION: XR CHEST ONE VIEW CLINICAL HISTORY: concern for aspiration TECHNIQUE: 1 view of the chest , single image COMPARISON: Chest radiograph 07/21/2020 FINDINGS: There are median sternotomy wires and a aortic valve device. EKG leads are present. No airspace opacity to suggest pneumonia. Prior left lung base streaky opacity has resolved. No pulmonary vascular congestion. No peribronchial thickening or cuffing. No pneumothorax. No pleural effusions. Normal size of the cardiomediastinal silhouette and shelly. 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 No acute osseous findings. No free air beneath the hemidiaphragms. Procedure Note Theo Garcia MD - 02/28/2024 EXAMINATION: XR CHEST ONE VIEW CLINICAL HISTORY: concern for aspiration TECHNIQUE: 1 view of the chest , single image COMPARISON: Chest radiograph 07/21/2020 FINDINGS: There are median sternotomy wires and a aortic valve device. EKG leads are present. No airspace opacity to suggest pneumonia. Prior left lung base streakyopacity has resolved. No pulmonary vascular congestion. No peribronchialthickening or cuffing. No pneumothorax. No pleural effusions. Normal size of the cardiomediastinal silhouette and shelly. 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 No free air beneath the hemidiaphragms. IMPRESSION No acute cardiopulmonary process. Specifically no evidence of pneumoniaor pneumonitis. Thank you for letting us participate in the care of this patient. If youare a health care provider and have any questions regarding this report,please contact the number below. For patients who have questions please contactthe health career services director that requested your imaging first. Electronically signed by: Theo Garcia MD[facility]([phone]), at 02/28/2024 12:27 PM dK Huggins MD IMG DX ORDERABLES * POC, GLUCOSE (02/28/2024 7:24 AM EDT) Glucometer, POC 162 65 - 199 mg/dL 02/28/2024 7:24 AM EDT [facility] Comment:Supplemental ranges: <140 mg/dL before meals <180 mg/dL all other times of the day. Blood CAPILLARY BLOOD / Unknown 02/28/2024 7:24 AM EDT 02/28/2024 7:24 AM EDT Kd Huggins MD POINT OF CARE TEST ORDERABLES Performing Organization Address [facility] de Phone Number [facility] [place] [address] * (ABNORMAL) Osmolality (02/28/2024 5:33 AM EDT) Osmolality 270(L) 275 - 295 mOsm/kg 02/28/2024 9:50 AM EDT [facility] Blood VENOUS BLOOD SPECIMEN / Unknown IP Care Team Draw / Unknown 02/28/2024 5:33 AM EDT 02/28/2024 5:54 AM EDT Kd Huggins MD CHEMISTRY ORDERABL ES Performing Organization Address [facility] de Phone Number [facility] [place] [address] * (ABNORMAL) Magnesium (02/28/2024 5:33 AM EDT) Magnesium 0.67(L) 0.69 - 1.07 mMol/L 02/28/2024 6:27 AM EDT [facility] Blood VENOUS BLOOD SPECIMEN / Unknown IP Care Team Draw / Unknown 02/28/2024 5:33 AM EDT 02/28/2024 5:54 AM EDT Susanna Cm APRN CHEMISTRY ORDERABLE S Performing Organization Address [facility]/ZIP Co de Phone Number [facility] [place] [address] * (ABNORMAL) CBC (with Diff) (02/28/2024 5:33 AM EDT) White Blood Cell 5.45 4.00 - 9.50 x10(3)/mc L 02/28/2024 6:03 AM EDT [facility] Red Blood Cell 3.82(L) 4.58 - 5.54 x10(6)/mc L 02/28/2024 6:03 AM EDT [facility] Hemoglobin 10.4(L) 13.7 - 16.5 g/dL 02/28/2024 6:03 AM T [facility] Hematocrit 31.0(L) 40.5 - 48.5 % 02/28/2024 6:03 AM EDT [facility] Mean Cell Volume 81.2(L) 82.9 - 93.1 fL 02/28/2024 6:03 AM EDT [facility] Mean Cell Hemoglobin 27.2(L) 27.5 - 32.1 pg 02/28/2024 6:03 AM EDT [facility] Mean Cell Hemoglobin Concentration 33.5 32.0 - 35.7 g/dL 02/28/2024 6:03 AM EDT [facility] Platelet 210 145 - 357 x10(3)/mc L 02/28/2024 6:03 AM EDT [facility] Mean Platelet Volume 10.2 7.6 - 12.9 fL 02/28/2024 6:03 AM EDT [facility] RDW Standard Deviation 45.5(H) 36.0 - 45.0 fL 02/28/2024 6:03 AM [facility] RDW coefficient of variation 15.3(H) 11.4 - 13.8 % 02/[facility]24 [facility] NRBC% auto 0.0 % 02/28/2024 6:03 AM [facility] NRBC Absolute 0.00 0.00 - 0.00 x10(3)/mc L 02/28/2024 6:03 AM EDT [facility] Neutrophil % 69.3 % 02/28/2024 6[facility] Neutrophil Absolute (ANC) - Automated 3.78 1.70 - 6.10 x10(3)/mc L 02/28/2024 6:03 AM EDT [facility] Lymph % 14.1 % 02/28/2024 6:03 AM EDT [facility] Lymph Absolute 0.77(L) 0.90 - 3.20 x10(3)/mc L 02/28/2024 6:03 AM EDT [facility] Monocyte % 11.6 % 02/28/2024 6:03 AM EDT [facility] Monocyte Absolute 0.63 0.30 - 0.90 x10(3)/mc L 02/28/2024 6:03 AM EDT [facility] Eos % 3.5 % 02/28/2024 6:03 AM EDT [facility] Eos Absolute 0.19 0.00 - 0.40 x10(3)/mc L 02/28/2024 6:03 AM EDT [facility] Basophil % 0.6 % 02/28/2024 6:03 AM EDT [facility] Baso Absolute 0.03 0.00 - 0.10 x10(3)/mc L 02/28/2024 6:03 AM EDT [facility] Immature Gran % 0.9 % 6:03 AM [facility] Immature Gran Absolute 0.05(H) 0.00 - 0.04 x10(3)/mc L 02/28/2024 6:03 AM [facility] Blood VENOUS BLOOD SPECIMEN / Unknown IP Care Team Draw / Unknown 02/28/2024 5:33 AM EDT 02/28/2024 5:54 AM EDT Susanna Cm [employer]ING MACHINE OPERATOR HEMATOLOGY ORDERABL ES [facility] [place] [address] * (ABNORMAL) Basic Metabolic Panel (02/28/2024 5:33 AM EDT) Glucose 175 65 - 199 mg/dL 02/28/2024 6:27 AM EDT [facility] Comment:Glucose Concentratio n >=200 mg/dL plus symptoms is consistent with Diabetes Mellitus. Blood Urea Nitrogen 15 10 - 20 mg/dL 02/28/2024 6:27 AM EDT [facility] Creatinine 1.05 0.80 - 1.50 mg/dL 02/28/2024 6:27 AM [facility] Sodium 125(L) 135 - 145 mMol/L 02/28/2024 6:27 AM [facility] Potassium 4.1 3.5 - 5.0 mMol/L 02/28/2024 6:27 AM [facility] Chloride 93(L) 98 - 107 mMol/L 02/28/2024 6:27 AM [facility] Carbon Dioxide 21(L) 22 - 31 mMol/L 02/28/2024 6:27 AM [facility] Anion Gap 11 5 - 15 mMol/L 02/28/2024 6:27 AM [facility] Calcium 8.9 8.5 - 10.5 mg/dL 02/28[facility]24 [facility] Est Glomerular Filtration Rate - Male 74 mL/min/1. 73 m?? 02/28/2024 6:27 AM [facility] Comment: This patient's estimated GFR [...] 5:33 AM EDT 02/28/2024 5:54 AM EDT Susanna Cm [employer] MACHINE OPERATOR CHEMISTRY ORDERABLE S Performing Organization Address City/[facility]/ZIP Co de Phone Number [facility] [place] [address] * (ABNORMAL) POC, GLUCOSE (02/27/2024 8:50 PM EDT) Glucometer, POC 225(H) 65 - 199 mg/dL 02/27/2024 8:50 PM EDT [facility] Comment:Supplemental ranges: <140 mg/dL before meals <180 mg/dL all other times of the day. Blood CAPILLARY BLOOD / Unknown 02/27/2024 8:50 PM EDT 02/27/2024 8:50 PM EDT Kd Huggins MD POINT OF CARE TEST ORDERABLES Performing Organization Address [facility] Co de Phone Number [facility] [place] [address] * POC, GLUCOSE (02/27/2024 3:25 PM EDT) Glucometer, POC 192 65 - 199 mg/dL 02/27/2024 3:25 PM EDT [facility] Comment:Supplemental ranges: <140 mg/dL before meals <180 mg/dL all other times of the day. Blood CAPILLARY BLOOD / Unknown 02/27/2024 3:25 PM EDT 02/27/2024 3:25 PM EDT Kd Huggins MD POINT OF CARE TEST ORDERABLES Performing Organization Address City/[facility]/ZIP Co de Phone Number [facility] [place] [address] * (ABNORMAL) POC, GLUCOSE (02/27/2024 11:09 AM EDT) Glucometer, POC 220(H) 65 - 199 mg/dL 02/27/2024 11:10 AM EDT [facility] Comment:Supplemental ranges: <140 mg/dL before meals <180 mg/dL all other times of the day. Blood CAPILLARY BLOOD / Unknown 02/27/2024 11:09 AM EDT 02/27/2024 11:10 AM EDT Kd Huggins MD POINT OF CARE TEST ORDERABLES [facility] [place] [address] * POC, GLUCOSE (02/27/2024 7:25 AM EDT) Glucometer, POC 148 65 - 199 mg/dL 02/27/2024 7:25 AM EDT [facility] Comment:Supplemental ranges: <140 mg/dL before meals <180 mg/dL all other times of the day. Blood CAPILLARY BLOOD / Unknown 02/27/2024 7:25 AM EDT 02/27/2024 7:25 AM EDT Kd Huggins MD POINT OF CARE TEST ORDERABLES [facility] [place] [address] * (ABNORMAL) Osmolality (02/27/2024 6:30 AM EDT) Osmolality 270(L) 275 - 295 mOsm/kg 02/28/2024 10:06 AM EDT [facility] Blood VENOUS BLOOD SPECIMEN / Unknown IP Care Team Draw / Unknown 02/27/2024 6:30 AM EDT 02/27/2024 6:59 AM EDT Kd Huggins MD CHEMISTRY ORDERABL ES Performing Organization Address City/[facility]/ZIP Co de Phone Number [facility] [place] [address] * (ABNORMAL) Magnesium (02/27/2024 6:30 AM EDT) [facility] Magnesium 0.63(L) 0.69 - 1.07 mMol/L 02/27/2024 7:43 AM EDT [facility] Blood VENOUS BLOOD SPECIMEN / Unknown IP Care Team Draw / Unknown 02/27/2024 6:30 AM EDT 02/27/2024 6:59 AM EDT Susanna Cm APRN CHEMISTRY ORDERABLE S Performing Organization Address City/[facility]/ZIP Co de Phone Number [facility] [place] [address] * (ABNORMAL) CBC (with Diff) (02/27/2024 6:30 AM EDT) [facility] White Blood Cell 5.78 4.00 - 9.50 x10(3)/mc L 02/27/2024 7:06 AM EDT [facility] Red Blood Cell 3.80(L) 4.58 - 5.54 x10(6)/mc L 02/27/2024 7:06 AM EDT [facility] Hemoglobin 10.5(L) 13.7 - 16.5 g/dL 02/27/2024 7:06 AM EDT [facility] Hematocrit 30.5(L) 40.5 - 48.5 % 02/27/2024 7:06 AM EDT [facility] Mean Cell Volume 80.3(L) 82.9 - 93.1 fL 02/27/2024 7:06 AM EDT [facility] Mean Cell Hemoglobin 27.6 27.5 - 32.1 pg 02/27/2024 7:06 AM EDT [facility] Mean Cell Hemoglobin Concentration 34.4 32.0 - 35.7 g/dL 02/27/2024 7:06 AM [facility] Platelet 179 145 - 357 x10(3)/mc L 02/27/2024 7:06 AM [facility] Mean Platelet Volume 10.5 7.6 - 12.9 fL 02/27/2024 7:06 AM [facility] RDW Standard Deviation 44.2 36.0 - 45.0 fL 02/27/2024 7:06 AM [facility] RDW coefficient of variation 15.1(H) 11.4 - 13.8 % 02/27/2024 7:06 AM [facility] NRBC% auto 0.0 % 02/27/2024 7:06 AM [facility] NRBC Absolute 0.00 0.00 - 0.00 x10(3)/mc L 02/27/2024 7:06 AM [facility] Neutrophil % 66.4 % 02/27/2024 7:06 AM [facility] Neutrophil Absolute (ANC) - Automated 3.84 1.70 - 6.10 x10(3)/mc L 02/27/2024 7:06 AM [facility] Lymph % 16.4 % 02/27/2024 7:06 AM [facility] Lymph Absolute 0.95 0.90 - 3.20 x10(3)/mc L 02/27/2024 7:06 AM [facility] Monocyte % 12.5 % 02/27/2024 7:06 AM [facility] Monocyte Absolute 0.72 0.30 - 0.90 x10(3)/mc L 02/27/2024 7:06 AM [facility] Eos % 3.1 % 02/27/2024 7:06 AM [facility] Eos Absolute 0.18 0.00 - 0.40 x10(3)/mc L 02/27/2024 7:06 AM [facility] Basophil % 0.9 % 02/27/2024 7:06 AM EDT [facility] Baso Absolute 0.05 0.00 - 0.10 x10(3)/mc L 02/27/2024 7:06 AM EDT [facility] Immature Gran % 0.7 % 7:06 AM EDT [facility] Immature Gran Absolute 0.04 0.00 - 0.04 x10(3)/mc L 02/27/2024 7:06 AM EDT [facility] Blood VENOUS BLOOD SPECIMEN / Unknown IP Care Team Draw / Unknown 02/27/2024 6:30 AM EDT 02/27/2024 6:59 AM EDT Susanna Cm [employer] MACHINE OPERATOR HEMATOLOGY ORDERABL ES [facility] [place] [address] * (ABNORMAL) Basic Metabolic Panel (02/27/2024 6:30 AM EDT) Glucose 138 65 - 199 mg/dL 02/27/2024 7:43 AM EDT [facility] Comment:Glucose Concentratio n >=200 mg/dL plus symptoms is consistent with Diabetes Mellitus. Blood Urea Nitrogen 11 10 - 20 mg/dL 02/27/2024 7:43 AM EDT [facility] Creatinine 1.00 0.80 - 1.50 mg/dL 02/27/2024 7:43 AM EDT [facility] Sodium 128(L) 135 - 145 mMol/L 02/27/2024 7:43 AM EDT [facility] Potassium 4.3 3.5 - 5.0 mMol/L 02/27/2024 7:43 AM EDT [facility] Chloride 95(L) 98 - 107 mMol/L [facility] Carbon Dioxide 22 22 - 31 mMol/L 02/27/2024 7:43 AM EDT [facility] Anion Gap 11 5 - 15 mMol/L 02/27/2024 7:43 AM EDT [facility] Calcium 9.0 8.5 - 10.5 mg/dL 02/27/2024 7:43 AM EDT [facility] Est Glomerular Filtration Rate - Male 79 mL/min/1. 73 m?? 02/27/2024 7:43 AM EDT [facility] Comment: This patient's estimated GFR was [...] Unknown IP Care Team Draw / Unknown 02/27/2024 6:30 AM EDT 02/27/2024 6:59 AM EDT Susanna Cm APRN CHEMISTRY ORDERABLE S [facility] [place] [address] * POC, GLUCOSE (02/26/2024 9:14 PM EDT) [facility] Signature Glucometer, POC 140 65 - 199 mg/dL 02/26/2024 9:15 PM EDT [facility] Comment:Supplemental ranges: <140 mg/dL before meals <180 mg/dL all other times of the day. Blood CAPILLARY BLOOD / Unknown 02/26/2024 9:14 PM EDT 02/26/2024 9:15 PM EDT Arti Griffin MD POINT OF CARE TEST ORDERABLES [facility] [place] [address] * POC, GLUCOSE (02/26/2024 5:00 PM EDT) Glucometer, POC 158 65 - 199 mg/dL 02/26/2024 5:00 PM EDT [facility] Comment:Supplemental ranges: <140 mg/dL before meals <180 mg/dL all other times of the day. Blood CAPILLARY BLOOD / Unknown 02/26/2024 5:00 PM EDT 02/26/2024 5:00 PM EDT Kd Huggins MD POINT OF CARE TEST ORDERABLES Performing Organization Address City/[facility]/ZIP Co de Phone Number [facility] [place] [address] * POC, GLUCOSE (02/26/2024 3:51 PM EDT) Glucometer, POC 187 65 - 199 mg/dL 02/26/2024 3:52 PM EDT [facility] Comment:Supplemental ranges: <140 mg/dL before meals <180 mg/dL all other times of the day. Blood CAPILLARY BLOOD / Unknown 02/26/2024 3:51 PM EDT 02/26/2024 3:52 PM EDT Kd Huggins MD POINT OF CARE TEST ORDERABLES [facility] [place] [address] * POC, GLUCOSE (02/26/2024 11:31 AM EDT) Glucometer, POC 128 65 - 199 mg/dL 02/26/2024 11:31 AM EDT [facility] Comment:Supplemental ranges: <140 mg/dL before meals <180 mg/dL all other times of the day. Blood CAPILLARY BLOOD / Unknown 02/26/2024 11:31 AM EDT 02/26/2024 11:31 AM EDT Kd Huggins MD POINT OF CARE TEST ORDERABLES [facility] [place] [address] * (ABNORMAL) POC, GLUCOSE (02/26/2024 9:35 AM EDT) Glucometer, POC 244(H) 65 - 199 mg/dL 02/26/2024 9:35 AM EDT [facility] Comment:Supplemental ranges: <140 mg/dL before meals <180 mg/dL all other times of the day. Blood CAPILLARY BLOOD / Unknown 02/26/2024 9:35 AM EDT 02/26/2024 9:36 AM EDT Kd Huggins MD POINT OF CARE TEST ORDERABLES [facility] [place] [address] * (ABNORMAL) POC, GLUCOSE (02/26/2024 7:41 AM EDT) Glucometer, POC 276(H) 65 - 199 mg/dL 02/26/2024 7:41 AM EDT [facility] Comment:Supplemental ranges: <140 mg/dL before meals <180 mg/dL all other times of the day. Blood CAPILLARY BLOOD / Unknown 02/26/2024 7:41 AM EDT 02/26/2024 7:41 AM EDT Arti Griffin MD POINT OF CARE TEST ORDERABLES [facility] [place] [address] * POC, GLUCOSE (02/26/2024 3:21 AM EDT) Glucometer, POC 105 65 - 199 mg/dL 02/26/2024 3:21 AM EDT [facility] Comment:Supplemental ranges: <140 mg/dL before meals <180 mg/dL all other times of the day. Blood CAPILLARY BLOOD / Unknown 02/26/2024 3:21 AM EDT 02/26/2024 3:22 AM EDT Arti Griffin MD POINT OF CARE TEST ORDERABLES Performing Organization Address [facility] Co de Phone Number [facility] [place] [address] * Osmolality (02/26/2024 12:04 AM EDT) Osmolality 275 275 - 295 mOsm/kg 02/28/2024 2:43 PM EDT [facility] Blood VENOUS BLOOD SPECIMEN / Unknown IP Care Team Draw / Unknown 02/26/2024 12:04 AM EDT 02/26/2024 12:11 AM EDT Kd Huggins MD CHEMISTRY ORDERABL ES Performing Organization Address [facility] de Phone Number [facility] [place] [address] * POC, GLUCOSE (02/26/2024 12:04 AM EDT) Glucometer, POC 181 65 - 199 mg/dL 02/26/2024 12:04 AM EDT [facility] Comment:Supplemental ranges: <140 mg/dL before meals <180 mg/dL all other times of the day. Blood CAPILLARY BLOOD / Unknown 02/26/2024 12:04 AM EDT 02/26/2024 12:04 AM EDT Arti Griffin MD POINT OF CARE TEST ORDERABLES Performing Organization Address [facility] Co de Phone Number [facility] [place] [address] * Magnesium (02/26/2024 12:04 AM EDT) Magnesium 0.79 0.69 - 1.07 mMol/L 02/26/2024 12:42 AM EDT [facility] Blood VENOUS BLOOD SPECIMEN / Unknown IP Care Team Draw / Unknown 02/26/2024 12:04 AM EDT 02/26/2024 12:11 AM EDT Susanna Cm TAPE RULES PRINTING MACHINE OPERATOR CHEMISTRY ORDERABLE S [facility] [place] [address] * (ABNORMAL) CBC (with Diff) (02/26/2024 12:04 AM EDT) White Blood Cell 5.76 4.00 - 9.50 x10(3)/mc L [facility] Red Blood Cell 3.81(L) 4.58 - 5.54 x10(6)/mc L 02/26/2024 12:17 AM [facility] Hemoglobin 10.6(L) 13.7 - 16.5 g/dL 02/26/2024 12:17 AM [facility] Hematocrit 31.0(L) 40.5 - 48.5 % 02/26/2024 12:17 AM [facility] Mean Cell Volume 81.4(L) 82.9 - 93.1 fL 02/26/2024 12:17 AM [facility] Mean Cell Hemoglobin 27.8 27.5 - 32.1 pg 02/26/2024 12:17 AM [facility] Mean Cell Hemoglobin Concentration 34.2 32.0 - 35.7 g/dL 02/26/2024 12:17 AM [facility] Platelet 186 145 - 357 x10(3)/mc L 02/26/2024 12:17 AM [facility] Mean Platelet Volume 10.3 7.6 - 12.9 fL 02/26/2024 12:17 AM [facility] RDW Standard Deviation 45.5(H) 36.0 - 45.0 fL 02/26/2024 12:17 AM [facility] RDW coefficient of variation 15.4(H) 11.4 - 13.8 % 02/26/2024 12:17 AM [facility] NRBC% auto 0.0 % 02/26/2024 12:17 AM [facility] NRBC Absolute 0.00 0.00 - 0.00 x10(3)/mc L 02/26/2024 12:17 AM [facility] Neutrophil % 71.0 % 02/26/2024 12:17 AM [facility] Neutrophil Absolute (ANC) - Automated 4.09 1.70 - 6.10 x10(3)/mc L 02/26/2024 12:17 AM [facility] Lymph % 16.0 % 02/26/2024 12:17 AM [facility] Lymph Absolute 0.92 0.90 - 3.20 x10(3)/mc L 02/26/2024 12:17 AM [facility] Monocyte % 9.7 % 02/26/2024 12:17 AM [facility] Monocyte Absolute 0.56 0.30 - 0.90 x10(3)/mc L 02/26/2024 12:17 AM [facility] Eos % 2.3 % 02/26/2024 12:17 AM [facility] Eos Absolute 0.13 0.00 - 0.40 x10(3)/mc L 02/26/2024 12:17 AM [facility] Basophil % 0.5 % 02/26/2024 12:17 AM [facility] Baso Absolute 0.03 0.00 - 0.10 x10(3)/mc L 02/26/2024 12:17 AM [facility] Immature Gran % 0.5 % 12:17 AM [facility] Immature Gran Absolute 0.03 0.00 - 0.04 x10(3)/mc L 02/26/2024 12:17 AM EDT [facility] Blood VENOUS BLOOD SPECIMEN / Unknown IP Care Team Draw / Unknown 02/26/2024 12:04 AM EDT 02/26/2024 12:11 AM EDT Susanna Cm TAPE RULES PRINTING MACHINE OPERATOR HEMATOLOGY ORDERABL ES [facility] [place] [address] * (ABNORMAL) Basic Metabolic Panel (02/26/2024 12:04 AM EDT) Glucose 182 65 - 199 mg/dL 02/26/2024 12:42 AM [facility] Comment:Glucose Concentratio n >=200 mg/dL plus symptoms is consistent with Diabetes Mellitus. Blood Urea Nitrogen 11 10 - 20 mg/dL 02/26/2024 12:42 AM [facility] Creatinine 0.97 0.80 - 1.50 mg/dL 02/26/2024 12:42 AM [facility] Sodium 129(L) 135 - 145 mMol/L 02/26/2024 12:42 AM [facility] Potassium 4.5 3.5 - 5.0 mMol/L 02/26/2024 12:42 AM [facility] Chloride 94(L) 98 - 107 mMol/L 02/26/2024 12:42 AM [facility] Carbon Dioxide 23 22 - 31 mMol/L 02/26/2024 12:42 AM [facility] Anion Gap 12 5 - 15 mMol/L 02/26/2024 12:42 AM [facility] Calcium 8.9 8.5 - 10.5 mg/dL 02/26/2024 12:42 AM [facility] Est Glomerular Filtration Rate - Male 82 mL/min/1. 73 m?? 02/26/2024 12:42 AM [facility] Comment: This patient's estimated GFR [...] Unknown IP Care Team Draw / Unknown 02/26/2024 12:04 AM EDT 02/26/2024 12:11 AM EDT Susanna Cm APRN CHEMISTRY ORDERABLE S [facility] [place] [address] * POC, GLUCOSE (02/25/2024 7:39 PM EDT) Glucometer, POC 112 65 - 199 mg/dL 02/25/2024 7:39 PM EDT [facility] Comment:Supplemental ranges: <140 mg/dL before meals <180 mg/dL all other times of the day. Blood CAPILLARY BLOOD / Unknown 02/25/2024 7:39 PM EDT 02/25/2024 7:39 PM EDT Arti Griffin MD POINT OF CARE TEST ORDERABLES [facility] [place] [address] * POC, GLUCOSE (02/25/2024 4:11 PM EDT) Glucometer, POC 169 65 - 199 mg/dL 02/25/2024 4:11 PM EDT [facility] Comment:Supplemental ranges: <140 mg/dL before meals <180 mg/dL all other times of the day. Blood CAPILLARY BLOOD / Unknown 02/25/2024 4:11 PM EDT 02/25/2024 4:11 PM EDT Arti Griffin MD POINT OF CARE TEST ORDERABLES [facility] [place] [address] * EEG Continuous Monitoring Inpatient (02/25/2024 4:00 PM EDT) Narrative Josias Hyman MD - 02/25/2024 4:00 PM EDT Josias Hyman MD ? 02/25/2024 ??4:02 PM [facility] Department of Neurology Inpatient Continuous Video EEG Report Name of the Patient: ??Johnson Tobar Date of : ?1950 Patient Location: [facility] Date of Service: 02/24/2024 Referring physician: Reading [...] ??Earlier today, he was taken to the asset availability leader, though no intervention required. ??In recovery, pt [...] EKG. Video was recorded during the session. SUPERVISOR DOG LICENSE OFFICER'S REPORT: Performed by: AT At the onset [...] MD PGY-6 Clinical Instructor - Epilepsy Fellow [facility] Department of Neurology 02/25/2024 Susanna Cm APRN NEUROLOGY ORDERABLE S * MRI Brain wo Contrast (02/25/2024 3:06 PM EDT) WORKSTATION ID [id number] DH RAD Anatomical Region Laterality Modality Head Magnetic [...] who have questions please contact the health career services director that requested your imaging first. ? Narrative 02/25/2024 3:26 PM EDT EXAMINATION: MRI [...] patients who have questions please contactthe health career services director that requested your imaging first. Gonzalez Barajas MD IMG MRI ORDERABLES * Carotid Duplex, Bilateral (02/25/2024 2:32 PM EDT) VB Text Report Department: Vascular Surgery Lab Patient: [id number] (JOHNSON TOBAR) CPT: 37983 Referring Physician: SUSANNA CM ?? Phone: Indications: Severe RT ICA [...] lab database for comparison. Electronically Signed by: LILI KAHN on 2024-02-28 10:38:39 AM [facility] VB Text Report End of Report [facility] 02/25/2024 2:32 PM EDT Susanna Cm TAPE RULES PRINTING MACHINE OPERATOR VASCULAR ORDERABLES [facility] * (ABNORMAL) Basic Metabolic Panel (02/25/2024 1:12 PM EDT) Glucose 171 65 - 199 mg/dL 02/25/2024 4:00 PM EDT [facility] Comment:Glucose Concentratio n >=200 mg/dL plus symptoms is consistent with Diabetes Mellitus. Blood Urea Nitrogen 11 10 - 20 mg/dL 02/25/2024 4:00 PM EDT [facility] Creatinine 1.00 0.80 - 1.50 mg/dL 02/25/2024 4:00 PM [facility] Sodium 129(L) 135 - 145 mMol/L 02/25/2024 4:00 PM [facility] Potassium 4.4 3.5 - 5.0 mMol/L 02/25/2024 4:00 PM [facility] Chloride 94(L) 98 - 107 mMol/L 02/25/2024 4:00 PM [facility] Carbon Dioxide 22 22 - 31 mMol/L 02/25/2024 4:00 PM [facility] Anion Gap 13 5 - 15 mMol/L 02/25/2024 4:00 PM [facility] Calcium 9.4 8.5 - 10.5 mg/dL 02/25/2024 4:00 PM [facility] Est Glomerular Filtration Rate - Male 79 mL/min/1. 73 m?? 02/25/2024 4:00 PM [facility] Comment: This patient's estimated GFR [...] Unknown IP Care Team Draw / Unknown 02/25/2024 1:12 PM EDT 02/25/2024 1:19 PM EDT Gonzalez Barajas MD CHEMISTRY ORDERABL ES Performing Organization Address City/[facility] Co de Phone Number [facility] [place] [address] * POC, GLUCOSE (02/25/2024 12:44 PM EDT) Glucometer, POC 143 65 - 199 mg/dL 02/25/2024 12:45 PM EDT [facility] Comment:Supplemental ranges: <140 mg/dL before meals <180 mg/dL all other times of the day. Blood CAPILLARY BLOOD / Unknown 02/25/2024 12:44 PM EDT 02/25/2024 12:45 PM EDT Gonzalez Barajas MD POINT OF CARE TEST ORDERABLES Performing Organization Address [facility] Co de Phone Number [facility] [place] [address] * POC, GLUCOSE (02/25/2024 7:29 AM EDT) Glucometer, POC 123 65 - 199 mg/dL 02/25/2024 7:30 AM EDT [facility] Comment:Supplemental ranges: <140 mg/dL before meals <180 mg/dL all other times of the day. Blood CAPILLARY BLOOD / Unknown 02/25/2024 7:29 AM EDT 02/25/2024 7:30 AM EDT Gonzalez Barajas MD POINT OF CARE TEST ORDERABLES Performing Organization Address City/[facility]/ZIP Co de Phone Number [facility] [place] [address] * (ABNORMAL) POC, GLUCOSE (02/25/2024 3:58 AM EDT) Pathologist Jg Glucometer, POC 252(H) 65 - 199 mg/dL 02/25/2024 3:58 AM EDT [facility] Comment:Supplemental ranges: <140 mg/dL before meals <180 mg/dL all other times of the day. Blood CAPILLARY BLOOD / Unknown 02/25/2024 3:58 AM EDT 02/25/2024 3:58 AM EDT Gonzalez Barajas MD POINT OF CARE TEST ORDERABLES [facility] [place] [address] * (ABNORMAL) Magnesium (02/25/2024 1:06 AM EDT) Pathologist Jg Magnesium 0.63(L) 0.69 - 1.07 mMol/L 02/25/2024 1:53 AM EDT [facility] Blood VENOUS BLOOD SPECIMEN / Unknown IP Care Team Draw / Unknown 02/25/2024 1:06 AM EDT 02/25/2024 1:12 AM EDT Susanna Cm APRN CHEMISTRY ORDERABLE S [facility] [place] [address] * (ABNORMAL) CBC (with Diff) (02/25/2024 1:06 AM EDT) Pathologist Jg White Blood Cell 5.55 4.00 - 9.50 x10(3)/mc L 02/25/2024 1:29 AM EDT [facility] Red Blood Cell 3.97(L) 4.58 - 5.54 x10(6)/mc L 02/25/2024 1:29 AM EDT [facility] Hemoglobin 10.9(L) 13.7 - 16.5 g/dL 02/25/2024 1:29 AM [facility] Hematocrit 31.6(L) 40.5 - 48.5 % 02/25/2024 1:29 AM [facility] Mean Cell Volume 79.6(L) 82.9 - 93.1 fL 02/25/2024 1:29 AM [facility] Mean Cell Hemoglobin 27.5 27.5 - 32.1 pg 02/25/2024 1:29 AM [facility] Mean Cell Hemoglobin Concentration 34.5 32.0 - 35.7 g/dL 02/25/2024 1:29 AM [facility] Platelet 173 145 - 357 x10(3)/mc L 02/25/2024 1:29 AM [facility] Mean Platelet Volume 10.4 7.6 - 12.9 fL 02/25/2024 1:29 AM [facility] RDW Standard Deviation 44.6 36.0 - 45.0 fL 02/25/2024 1:29 AM [facility] RDW coefficient of variation 15.2(H) 11.4 - 13.8 % 02/25/2024 1:29 AM [facility] NRBC% auto 0.0 % 02/25/2024 1:29 AM [facility] NRBC Absolute 0.00 0.00 - 0.00 x10(3)/mc L 02/25/2024 1:29 AM [facility] Neutrophil % 71.1 % 02/25/2024 1:29 AM [facility] Neutrophil Absolute (ANC) - Automated 3.95 1.70 - 6.10 x10(3)/mc L 02/25/2024 1:29 AM [facility] Lymph % 13.2 % 02/25/2024 1:29 AM [facility] Lymph Absolute 0.73(L) 0.90 - 3.20 x10(3)/mc L 02/25/2024 1:29 AM EDT [facility] Monocyte % 12.6 % 02/25/2024 1:29 AM EDT [facility] Monocyte Absolute 0.70 0.30 - 0.90 x10(3)/mc L 02/25/2024 1:29 AM EDT [facility] Eos % 2.2 % 02/25/2024 1:29 AM EDT [facility] Eos Absolute 0.12 0.00 - 0.40 x10(3)/mc L 02/25/2024 1:29 AM EDT [facility] Basophil % 0.4 % 02/25/2024 1:29 AM EDT [facility] Baso Absolute 0.02 0.00 - 0.10 x10(3)/mc L 02/25/2024 1:29 AM EDT [facility] Immature Gran % 0.5 % 1:29 AM EDT [facility] Immature Gran Absolute 0.03 0.00 - 0.04 x10(3)/mc L 02/25/2024 1:29 AM EDT [facility] Blood VENOUS BLOOD SPECIMEN / Unknown IP Care Team Draw / Unknown 02/25/2024 1:06 AM EDT 02/25/2024 1:12 AM EDT Susanna Cm TAPE RULES PRINTING MACHINE OPERATOR HEMATOLOGY ORDERABL ES [facility] [place] [address] * (ABNORMAL) Basic Metabolic Panel (02/25/2024 1:06 AM EDT) Glucose 112 65 - 199 mg/dL 02/25/2024 1:53 AM EDT [facility] Comment:Glucose Concentratio n >=200 mg/dL plus symptoms is consistent with Diabetes Mellitus. Blood Urea Nitrogen 13 10 - 20 mg/dL 02/25/2024 1:53 AM EDT [facility] Creatinine 1.00 0.80 - 1.50 mg/dL 02/25/2024 1:53 AM T [facility] Sodium 130(L) 135 - 145 mMol/L 02/25/2024 1:53 AM [facility] Potassium 4.3 3.5 - 5.0 mMol/L 02/25/2024 1:53 AM [facility] Chloride 95(L) 98 - 107 mMol/L [facility] Carbon Dioxide 22 22 - 31 mMol/L 02/25/2024 1:53 AM [facility] Anion Gap 13 5 - 15 mMol/L 02/25/2024 1:53 AM [facility] Calcium 9.4 8.5 - 10.5 mg/dL 02/25/2024 1:53 AM [facility] Est Glomerular Filtration Rate - Male 79 mL/min/1. 73 m?? 02/25/2024 1:53 AM [facility] Comment: This patient's estimated GFR [...] Unknown IP Care Team Draw / Unknown 02/25/2024 1:06 AM EDT 02/25/2024 1:12 AM EDT Susanna Cm TAPE RULES PRINTING MACHINE OPERATOR CHEMISTRY ORDERABLE S [facility] [place] [address] * POC, GLUCOSE (02/24/2024 11:55 PM EDT) Glucometer, POC 143 65 - 199 mg/dL 02/24/2024 11:56 PM EDT [facility] Comment:Supplemental ranges: <140 mg/dL before meals <180 mg/dL all other times of the day. Blood CAPILLARY BLOOD / Unknown 02/24/2024 11:55 PM EDT 02/24/2024 11:56 PM EDT Gonzalez Barajas MD POINT OF CARE TEST ORDERABLES [facility] [place] [address] * CT Head WO Contrast Dual Energy (Post MT/TPA) (02/24/2024 10:04 PM EDT) [facility] WORKSTATION ID [id number] RAD Anatomical Region Laterality Modality Head Computed [...] who have questions please contact the health career services director that requested your imaging first. ? Narrative 02/25/2024 1:25 AM EDT EXAMINATION: CT [...] patients who have questions please contactthe health career services director that requested your imaging first. Gonzalez Barajas MD IMG CT ORDERABLES * (ABNORMAL) POC, GLUCOSE (02/24/2024 9:00 PM EDT) Glucometer, POC 230(H) 65 - 199 mg/dL 02/24/2024 9:00 PM EDT [facility] Comment:Supplemental ranges: <140 mg/dL before meals <180 mg/dL all other times of the day. Blood CAPILLARY BLOOD / Unknown 02/24/2024 9:00 PM EDT 02/24/2024 9:00 PM EDT Gonzalez Barajas MD POINT OF CARE TEST ORDERABLES Performing Organization Address City/[facility]/ZIP Co de Phone Number [facility] [place] [address] * Electrolytes, urine, random (02/24/2024 8:58 PM EDT) Sodium, Urine 22 mMol/L 02/28/2024 8:18 AM EDT [facility] Potassium, Urine 68 mMol/L 02/28/2024 8:18 AM EDT [facility] Chloride, Urine <20 mMol/L 02/28/2024 8:18 AM EDT [facility] Urine URINE SPECIMEN / Unknown Non Blood Collection / Unknown 02/24/2024 8:58 PM EDT 02/24/2024 9:35 PM EDT Kd Huggins MD URINE ORDERABLES [facility] [place] [address] * Osmolality, urine, random (02/24/2024 8:58 PM EDT) Osmolality, Urine 685 50 - 1,200 mOsm/kg 02/24/2024 11:35 PM EDT [facility] Urine URINE SPECIMEN / Unknown Non Blood Collection / Unknown 02/24/2024 8:58 PM EDT 02/24/2024 11:32 PM EDT Gonzalez Barajas MD URINE ORDERABLES [facility] [place] [address] * Osmolality (02/24/2024 8:58 PM EDT) Osmolality 275 275 - 295 mOsm/kg 02/25/2024 12:20 AM EDT [facility] Blood VENOUS BLOOD SPECIMEN / Unknown IP Care Team Draw / Unknown 02/24/2024 8:58 PM EDT 02/24/2024 9:35 PM EDT Fariba Ramirez MD CHEMISTRY ORDERABLES [facility] [place] [address] * POC, GLUCOSE (02/24/2024 6:45 PM EDT) Glucometer, POC 142 65 - 199 mg/dL 02/24/2024 6:45 PM EDT [facility] Comment:Supplemental ranges: <140 mg/dL before meals <180 mg/dL all other times of the day. Blood CAPILLARY BLOOD / Unknown 02/24/2024 6:45 PM EDT 02/24/2024 6:45 PM EDT Gonzalez Barajas MD POINT OF CARE TEST ORDERABLES [facility] [place] [address] * POC, GLUCOSE (02/24/2024 3:24 PM EDT) Glucometer, POC 138 65 - 199 mg/dL 02/24/2024 3:24 PM EDT [facility] Comment:Supplemental ranges: <140 mg/dL before meals <180 mg/dL all other times of the day. Blood CAPILLARY BLOOD / Unknown 02/24/2024 3:24 PM EDT 02/24/2024 3:24 PM EDT Gonzalez Barajas MD POINT OF CARE TEST ORDERABLES Performing Organization Address City/[facility]/ZIP Co de Phone Number [facility] [place] [address] * TSH (02/24/2024 1:31 PM EDT) Thyroid Stimulating Hormone 2.07 0.27 - 4.20 mcIU/mL 02/24/2024 7:48 PM EDT [facility] Blood VENOUS BLOOD SPECIMEN / Unknown 02/24/2024 1:31 PM EDT 02/24/2024 1:48 PM EDT Gonzalez Barajas MD CHEMISTRY ORDERABL ES Performing Organization Address City/[facility]/ZIP Co de Phone Number [facility] [place] [address] * Lipid Panel (Reflex Direct LDL) (02/24/2024 1:31 PM EDT) Cholesterol, Total 91 mg/dL 02/24/2024 7:48 PM EDT [facility] Comment: Desirable: < 200 mg/dL Borderline High: 200 - 239 mg/dL High: > or = 240 mg/dL Triglyceride 122 mg/dL 02/24/2024 7:48 PM EDT [facility] Comment: Normal: <150 mg/dL Borderline High: 150-199 mg/dL High: 200-499 mg/dL Very High: > or =500 mg/dL HDL Cholesterol 32 mg/dL 7:48 PM EDT [facility] Comment:Males: High Risk: <4 0 mg/dL LDL Cholesterol 37 mg/dL 7:48 PM EDT [facility] Comment: Desirable: <100 mg/dL Above Desirable: 100-129 mg/dL Borderline High: 130-159 mg/dL High: 160-189 mg/dL Very High: > or =190 mg/dL Note: LDL calculation updated to the NIH LDL formula as of 02/16/2024 Non-HDL Cholesterol 59 mg/dL 02/24/2024 7:48 PM EDT [facility] Comment: Desirable: <130 mg/dL Above Desirable: 130-159 mg/dL Borderline High: 160-189 mg/dL High: 190-219 mg/dL Very High: > or = 220 mg/dL Blood VENOUS BLOOD SPECIMEN / Unknown 02/24/2024 1:31 PM EDT 02/24/2024 1:48 PM EDT [facility] - 02/24/2024 7:48 PM EDT It [...] ACC/AHA Guidelines (most recently Barb et al. JACC 04/17/22): * For individuals with atherosclerotic cardiovascular [...] disease) Gonzalez Barajas MD CHEMISTRY ORDERABL ES [facility] [place] [id number] * (ABNORMAL) CBC (with Diff) (02/24/2024 1:31 PM EDT) White Blood Cell 4.94 4.00 - 9.50 x10(3)/mc L 02/24/2024 1:54 PM EDT [facility] Red Blood Cell 3.80(L) 4.58 - 5.54 x10(6)/mc L 02/24/2024 1:54 PM EDT [facility] Hemoglobin 10.5(L) 13.7 - 16.5 g/dL 02/24/2024 1:54 PM EDT [facility] Hematocrit 30.7(L) 40.5 - 48.5 % 02/24/2024 1:54 PM EDT [facility] Mean Cell Volume 80.8(L) 82.9 - 93.1 fL 02/24/2024 1:54 PM EDT [facility] Mean Cell Hemoglobin 27.6 27.5 - 32.1 pg 02/24/2024 1:54 PM [facility] Mean Cell Hemoglobin Concentration 34.2 32.0 - 35.7 g/dL 02/24/2024 1:54 PM [facility] Platelet 172 145 - 357 x10(3)/mc L 02/24/2024 1:54 PM [facility] Mean Platelet Volume 10.3 7.6 - 12.9 fL 02/24/2024 1:54 PM [facility] RDW Standard Deviation 46.0(H) 36.0 - 45.0 fL 02/24/2024 1:54 PM [facility] RDW coefficient of variation 15.6(H) 11.4 - 13.8 % 02/24/2024 1:54 PM [facility] NRBC% auto 0.0 % 02/24/2024 1:54 PM [facility] NRBC Absolute 0.00 0.00 - 0.00 x10(3)/mc L 02/24/2024 1:54 PM [facility] Neutrophil % 68.5 % 02/24/2024 1:54 PM [facility] Neutrophil Absolute (ANC) - Automated 3.38 1.70 - 6.10 x10(3)/mc L 02/24/2024 1:54 PM [facility] Lymph % 16.4 % 02/24/2024 1:54 PM [facility] Lymph Absolute 0.81(L) 0.90 - 3.20 x10(3)/mc L 02/24/2024 1:54 PM [facility] LABORATORY Monocyte % 11.5 % 02/24/2024 1:54 PM [facility] Monocyte Absolute 0.57 0.30 - 0.90 x10(3)/mc L 02/24/2024 1:54 PM [facility] Eos % 2.2 % 02/24/2024 1:54 PM EDT [facility] Eos Absolute 0.11 0.00 - 0.40 x10(3)/mc L 02/24/2024 1:54 PM EDT [facility] Basophil % 0.4 % 02/24/2024 1:54 PM EDT [facility] Baso Absolute 0.02 0.00 - 0.10 x10(3)/mc L 02/24/2024 1:54 PM EDT [facility] Immature Gran % 1.0 % 1:54 PM EDT [facility] Immature Gran Absolute 0.05(H) 0.00 - 0.04 x10(3)/mc L 02/24/2024 1:54 PM EDT [facility] Blood VENOUS BLOOD SPECIMEN / Unknown 02/24/2024 1:31 PM EDT 02/24/2024 1:49 PM EDT Susanna Cm TAPE RULES PRINTING MACHINE OPERATOR HEMATOLOGY ORDERABL ES [facility] [place] [address] * (ABNORMAL) Basic Metabolic Panel (02/24/2024 1:31 PM EDT) Glucose 137 65 - 199 mg/dL 02/24/2024 3:54 PM EDT [facility] Comment:Glucose Concentratio n >=200 mg/dL plus symptoms is consistent with Diabetes Mellitus. Blood Urea Nitrogen 11 10 - 20 mg/dL 02/24/2024 3:54 PM EDT [facility] Creatinine 1.05 0.80 - 1.50 mg/dL 02/24/2024 3:54 PM EDT [facility] Sodium 126(L) 135 - 145 mMol/L 02/24/2024 3:54 PM EDT [facility] Potassium 4.2 3.5 - 5.0 mMol/L 02/24/2024 3:54 PM EDT [facility] Chloride 95(L) 98 - 107 mMol/L 02/24/2024 3:54 PM EDT [facility] Carbon Dioxide 20(L) 22 - 31 mMol/L 02/24/2024 3:54 PM EDT [facility] Anion Gap 11 5 - 15 mMol/L 02/24/2024 3:54 PM EDT [facility] Calcium 8.7 8.5 - 10.5 mg/dL 02/24/2024 3:54 PM EDT [facility] Est Glomerular Filtration Rate - Male 74 mL/min/1. 73 m?? 02/24/2024 3:54 PM EDT [facility] Comment: This patient's estimated GFR was [...] Foundation Blood VENOUS BLOOD SPECIMEN / Unknown 02/24/2024 1:31 PM EDT 02/24/2024 1:48 PM EDT Susanna Cm TAPE RULES PRINTING MACHINE OPERATOR CHEMISTRY ORDERABLE S [facility] [place] [address] * Prothrombin Time (02/24/2024 1:25 PM EDT) Prothrombin Time 12.3 9.4 - 12.5 sec 02/24/2024 2:01 PM EDT [facility] International Normalization Ratio 1.1 <=4.9 02/24/2024 2:01 PM EDT [facility] Comment: An INR < [...] 1:25 PM EDT 02/24/2024 1:37 PM EDT Susanna Cm APRN HEMATOLOGY ORDERABL ES Performing Organization Address [facility] Co de Phone Number [facility] [place] [address] * APTT (02/24/2024 1:25 PM EDT) Partial Thromboplastin Time 29 25 - 37 sec 02/24/2024 2:01 PM EDT [facility] Comment: The PTT is NOT appropriate for heparin monitoring. Use the Anti-Xa level for heparin monitoring (HEP UFH) or LMWH monitoring (HEP LMW). A PTT less than 37 seconds generally indicates adequate hemostasis. Blood VENOUS BLOOD SPECIMEN / Unknown 02/24/2024 1:25 PM EDT 02/24/2024 1:37 PM EDT Fariba Ramirez MD HEMATOLOGY ORDERABLE S Performing Organization Address [facility] de Phone Number [facility] [place] [address] * CT Head wo Contrast (Generic) (02/24/2024 1:10 PM EDT) WORKSTATION ID [id number] DH RAD Anatomical Region Laterality Modality Head Computed Tomogra phy Impressions 02/24/2024 2:49 PM EDT 1. 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 2. ??Severe right ICA origin stenosis. 3. ??Moderate-severe right intradural vertebral artery stenosis. 4. ??No intracranial hemorrhage. Dr. Anderson discussed the result(s #1) with Dr. Adler ??on 02/24/2024 1:18 PM and verified that (s)he understood these results. Preliminary report signed by: Dhaval Monica at 02/24/2024 1:43 PM I have personally [...] who have questions please contact the health career services director that requested your imaging first. ? Narrative 02/24/2024 2:49 PM EDT EXAMINATION: CT HEAD WO CONTRAST (GENERIC), CTA HEAD/NECK MULTIPHASE (THROMBECTOMY PROTOCOL) CLINICAL HISTORY: stroke alert TECHNIQUE: CT of head without intravenous contrast. Multiphase CTA of the carotids and [place] of [place] is performed after the administration of 65cc of Omnipaque 350 intravenous contrast. MIP and 3-D volumetric reconstructions were created. COMPARISON: None FINDINGS: CT Head: No acute intracranial hemorrhage or mass effect. Cheung-white matter differentiation is maintained. ??Normal caliber ventricles. Patent basal cisterns.. Imaged paranasal sinuses and mastoid air cells are clear. CTA [place]: Intradural segments of the internal carotid arteries are patent. ??Normal course and caliber of the middle and anterior cerebral arteries. Dominant left vertebral artery is normal caliber. Calcified atheroma moderate-severely narrow the intradural right vertebral artery. Normal basilar artery. Occluded mid-distal P2 segment of the right QUANTOMETER OPERATOR without distal reconstitution. No filling on delayed [...] intravenous contrast. Multiphase CTA of the carotidsand [place] of [place] is performed after the administration of 65cc ofOmnipaque 350 intravenous contrast. MIP and 3-D volumetric reconstructions werecreated. COMPARISON: None FINDINGS: CT Head: No acute intracranial hemorrhage or mass effect. Cheung-white matter differentiation is maintained. Normal caliber ventricles. Patent basal cisterns.. Imaged paranasal sinuses and mastoid air cells are clear. CTA [place]: Intradural segments of the internal carotid arteries are patent. Normalcourse and caliber of the middle and anterior cerebral arteries. Dominant left vertebral artery is normal caliber. Calcified atheroma moderate-severely narrow the intradural right vertebral artery. Normalbasilar artery. Occluded mid-distal P2 segment of the right QUANTOMETER OPERATOR without distalreconstitution. No filling on delayed images. [...] be exaggerated by respiratorymotion. IMPRESSION 1. 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 2. Severe right [...] patients who have questions please contactthe health career services director that requested your imaging first. Susanna Cm TAPE RULES PRINTING MACHINE OPERATOR IMG CT ORDERABLES * CTA Head/Neck Multiphase (Thrombectomy Protocol) (02/24/2024 1:10 PM EDT) [employer] WORKSTATION ID [id number] RAD Anatomical Region Laterality Modality Head Computed Tomogra phy Impressions 02/24/2024 2:49 PM EDT 1. 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 2. ??Severe right [...] who have questions please contact the health career services director that requested your imaging first. ? Narrative 02/24/2024 2:49 PM EDT EXAMINATION: CT HEAD WO CONTRAST (GENERIC), CTA HEAD/NECK MULTIPHASE (THROMBECTOMY PROTOCOL) CLINICAL HISTORY: stroke alert TECHNIQUE: CT of head without intravenous contrast. Multiphase CTA of the carotids and [place] of [place] is performed after the administration of 65cc of Omnipaque 350 intravenous contrast. MIP and 3-D volumetric reconstructions were created. COMPARISON: None FINDINGS: CT Head: No acute intracranial hemorrhage or mass effect. Cheung-white matter differentiation is maintained. ??Normal caliber ventricles. Patent basal cisterns.. Imaged paranasal sinuses and mastoid air cells are clear. CTA [place]: Intradural segments of the internal carotid arteries are patent. ??Normal course and caliber of the middle and anterior cerebral arteries. Dominant left vertebral artery is normal caliber. Calcified atheroma moderate-severely narrow the intradural right vertebral artery. Normal basilar artery. Occluded mid-distal P2 segment of the right QUANTOMETER OPERATOR without distal reconstitution. No filling on delayed [...] intravenous contrast. Multiphase CTA of the carotidsand [place] of [place] is performed after the administration of 65cc ofOmnipaque 350 intravenous contrast. MIP and 3-D volumetric reconstructions werecreated. COMPARISON: None FINDINGS: CT Head: No acute intracranial hemorrhage or mass effect. Cheung-white matter differentiation is maintained. Normal caliber ventricles. Patent basal cisterns.. Imaged paranasal sinuses and mastoid air cells are clear. CTA [place]: Intradural segments of the internal carotid arteries are patent. Normalcourse and caliber of the middle and anterior cerebral arteries. Dominant left vertebral artery is normal caliber. Calcified atheroma moderate-severely narrow the intradural right vertebral artery. Normalbasilar artery. Occluded mid-distal P2 segment of the right QUANTOMETER OPERATOR without distalreconstitution. No filling on delayed images. [...] be exaggerated by respiratorymotion. IMPRESSION 1. 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 2. Severe right [...] patients who have questions please contactthe health career services director that requested your imaging first. Susanna Cm TAPE RULES PRINTING MACHINE OPERATOR IMG CT ORDERABLES * POC, GLUCOSE (02/24/2024 12:45 PM EDT) [facility] Glucometer, POC 124 65 - 199 mg/dL 02/24/2024 12:46 PM EDT [facility] Comment:Supplemental ranges: <140 mg/dL before meals <180 mg/dL all other times of the day. Blood CAPILLARY BLOOD / Unknown 02/24/2024 12:45 PM EDT 02/24/2024 12:46 PM EDT Fariba Ramirez MD POINT OF CARE TEST O RDERABLES [facility] [place] [address] * CARDIAC CATHETERIZATION (02/24/2024 12:32 PM EDT) Anatomical Region Laterality Modality Other Narrative 02/25/2024 4:57 PM EDT ?[facility] ? Cardiac Catheterization/Intervention Report ? Patient Name: Ekaterina, Johnson R. ? Procedure Date: 02/24/2024 ? A #: [id number] ? Primary Physician: Mogadam, Emad ? Case #: [id number] ? File Name: [id number] ? Catheterization Order Number: [id number] ? [facility] ? Final Report [place], [place] ? Patient Name: ? Johnson R. Ekaterina ? ID#: ?[id number] ? : ?1950 ? Procedure Date: ? February 24, 2024 ?Case #: ? [id number] ? Room: ? 2 ? Case Physician: ? Zara Dc M.D. ? Start: ?11:37 ?Fellow: ? Mauricio Chi Jr., M.D. ?Admission: ??02/23/2024 ? Referring Physician: [...] was designated as ASA Class III. The [facility] clinical ?frailty scale is 4: Vulnerable. ? Diagnostic Tests: ?Prior Coronary Angiography: ? Prior coronary angiography was performed on 07/06/2023 and showed ? obstructive CAD. LV ejection fraction within 6 months is 55%. ?Electrocardiography: ? EKG was assessed by ECG. EKG was Abnormal. EKG showed T-wave ? inversions and other abnormality. ?Medications Prior to Procedure: ? Aspirin, Beta Pb, Calcium Channel Blocking Agent and Statin. ? Indications for Diagnostic Cath: ?The priority of the diagnostic procedure was Urgent. The indication for ?the asset availability leader visit is ACS greater than 24 hrs. [...] was present for the entire procedure. ?Dr. Emad Mogadam, M.D. was present during the moderate sedation ?intraservice time as documented by the sedation nurse. ??Case time = 00:49. ?Dr. Zara cD M.D. performed the coronary angiography, left heart ?catheterization and bypass graft study. ? Emad Mogadam, M.D. ? Report Finalized: 02/25/2024 ??16:49 ? Report Last Ammended: 03/06/2024 ??10:17 ? Procedure Note Zara Dc MD - 03/06/2024 [facility] Cardiac Catheterization/Intervention Report Patient Name: Johnson Tobar Procedure Date: 02/24/2024 A #: [id number] Primary Physician: Zara Dc Case #: [id number] File Name: [id number] Catheterization Order Number: [id number] [facility] FinalReport [place], [place] Patient Name: Johnson Tobar ID#:[id number] :1950 Procedure Date: February 24, 2024 Case #: [id number] Room: 2 Case Physician: Zara cD M.D. Start: 11:37 Fellow: Mauricio Chi Jr., M.D. Admission:02/23/2024 Referring Physician: Ariel Lynn [...] abnormality. Medications Prior to Procedure: Aspirin, Beta Pb, Calcium Channel Blocking Agent andStatin. Indications for Diagnostic Cath: The priority of the diagnostic procedure was Urgent. The indicationfor the asset availability leader visit is ACS greater than 24 hrs. [...] Dc MD CARDIAC CATH ORDERAB LES * POC, GLUCOSE (02/24/2024 11:05 AM EDT) [facility] Glucometer, POC 137 65 - 199 mg/dL 02/24/2024 11:05 AM EDT [facility] Comment:Supplemental ranges: <140 mg/dL before meals <180 mg/dL all other times of the day. Blood CAPILLARY BLOOD / Unknown 02/24/2024 11:05 AM EDT 02/24/2024 11:05 AM EDT Fariba Ramirez MD POINT OF CARE TEST O RDERABLES [facility] [place] [address] * ECHO COMPLETE W CONTRAST (02/24/2024 9:18 AM EDT) EF 55 HEARTLAB SYSTEM Anatomical Region Laterality Modality Cardiac Other 02/24/2024 6:53 AM EDT Narrative 02/24/2024 9:58 AM EDT [address] [place] [address] ? Echocardiogram Report Name: JOHNSON TOBAR ?Study Date: 02/24/2024 06:53 AMBP: 131/77 mmHg ? Patient Location: L4WB^463^A : 1950 ? Height: 170 cm ? Account: [id number] Age: 73 yrs ? Weight: 75 kg Gender: Male ?BSA: 1.9 m2 Ordering Physician: MAURICIO JEAN Referring Physician: ARIEL LYNN Performed By: Kim Donahue RDCS Reason For Study: CAD Exam Location: [facility]. Interpretation Summary Technically difficult study despite the [...] with a DEBORAH if clinically indicated. Procedure Complete-73910. Image enhancement Optison was used for left [...] valve mean: 4.2 mmHg MV E max eb: 205.3 cm/sec MV A max eb: 183.4 cm/sec MV E/A: 1.1 MV dec time: 0.36 sec MV mean P.0 mmHg Lat Peak E' Eb: 9.2 cm/sec E/e' (lat): 22.2 Med Peak E' Eb: 5.1 cm/sec E/e' (med): 40.1 E/e' Average: 31.2 TOBI(I,D): 2.0 cm2 Dimensionless index Aov: 0.72 TR max eb: 318.4 cm/sec I ?WMSI = 1.00 ? % Normal = 100 ?Segments ??Size X - Cannot ?2 - ?4 - ?1-2 ? small Interpret ?1 - Normal ?? Hypokinetic 3 - Akinetic Dyskinetic ?? 3-5 ? moderate 5 - ? 6-14 ?large Aneurysmal ?15-16 ?? diffuse Procedure Note Darron Manzanares MD - 02/24/2024 [address] [place] [address] Echocardiogram Report Name: JOHNSON TOBAR Study Date: 406:53 AMBP: 131/77 mmHg Patient [facility]^A : 1950 Height: 170 cm Account: [id number] Age: 73 yrs Weight: 75 kg Gender: Male BSA: 1.9 m2 Ordering Physician: MAURICIO JEAN Referring Physician: ARIEL LYNN Performed By: Kim Donahue RDCS Reason For Study: CAD Exam Location: [facility]. Interpretation Summary Technically difficult study despite the [...] with a DEBORAH if clinically indicated. Procedure Complete-88938. Image enhancement Optison was used for left [...] valve mean: 4.2 mmHg MV E max eb: 205.3 cm/sec MV A max eb: 183.4 cm/sec MV E/A: 1.1 MV dec time: 0.36 sec MV mean P.0 mmHg Lat Peak E' Eb: 9.2 cm/sec E/e' (lat): 22.2 Med Peak E' Eb: 5.1 cm/sec E/e' (med): 40.1 E/e' Average: 31.2 TOBI(I,D): 2.0 cm2 Dimensionless index Aov: 0.72 TR max eb: 318.4 cm/sec I WMSI = 1.00 % Normal = 100 SegmentsSize X - Cannot 2 - 4 - 1-2small Interpret 1 - Normal Hypokinetic 3 - Akinetic Dyskinetic 3-5moderate 5 - 6-14large Aneurysmal 15-16diffuse Mauricio Jean MD ECHO ORDERABLES * POC, GLUCOSE (02/24/2024 7:40 AM EDT) Glucometer, POC 139 65 - 199 mg/dL 02/24/2024 7:39 AM EDT [facility] Comment:Supplemental ranges: <140 mg/dL before meals <180 mg/dL all other times of the day. Blood CAPILLARY BLOOD / Unknown 02/24/2024 7:40 AM EDT 02/24/2024 7:40 AM EDT Fariba Ramirez MD POINT OF CARE TEST O RDERABLES [facility] [place] [address] * Prothrombin Time (02/24/2024 3:02 AM EDT) Prothrombin Time 12.3 9.4 - 12.5 sec 02/24/2024 1:32 PM EDT [facility] International Normalization Ratio 1.1 <=4.9 02/24/2024 1:32 PM EDT [facility] Comment: An INR < [...] circumstances. Blood VENOUS BLOOD SPECIMEN / Unknown IP Care Team Draw / Unknown 02/24/2024 3:02 AM EDT 02/24/2024 3:07 AM EDT Fariba Ramirez MD HEMATOLOGY ORDERABLE S [facility] [place] [address] * (ABNORMAL) Hemoglobin A1c (02/24/2024 3:02 AM EDT) Hemoglobin A1c 8.3(H) 4.3 - 5.6 % 02/24/2024 10:42 AM EDT [facility] Comment: Per ADA guidelines, [...] red blood cell turnover may not be representative personal service of glycemic control. Reference Interval: 4.3 - 5.6% 5.7 - 6.4%: Consistent with prediabetes >=6.5%: Consistent with diagnosis of diabetes mellitus Estimated Average Glucose 02/24/2024 10:42 AM EDT [facility] Comment:Not Calculated. Blood VENOUS BLOOD SPECIMEN / Unknown IP Care Team Draw / Unknown 02/24/2024 3:02 AM EDT 02/24/2024 3:07 AM EDT Narrative [facility] - 02/24/2024 10:42 AM EDT Estimated average glucose (eAG) is calculated from the equation described in: Johnathan BOO, Cira J, Mak R, et al. ??Translating the A1C assay into estimated average glucose values. ??Diabetes Care 2008:31(8):3328-0935. Additional resources are available on the ADA website (diabetes.org). Fariba Ramirez MD CHEMISTRY ORDERABLES Performing Organization Address City/[facility]/ZIP Co de Phone Number [facility] [place] [address] * (ABNORMAL) Troponin - Single (02/24/2024 3:02 AM EDT) Troponin-T, High Sensitivity 141(H) <=22 ng/L 02/24/2024 6:30 AM EDT [facility] Comment: This patient's troponin T concentration was determined using the Violtea 5th Generation troponin T assay. According to [...] troponin value can be found in the [facility] Test Catalog Troponin - [email or web address]/catalogs/565/files/43866 Reference: Fourth [place] Definition of Myocardial Infarction. Journal of the [place] [employer] 2018;72:2999-4025 Blood VENOUS BLOOD SPECIMEN / Unknown IP Care Team Draw / Unknown 02/24/2024 3:02 AM EDT 02/24/2024 3:07 AM EDT Mauricio Jean MD CHEMISTRY ORDERABLES Performing Organization Address City/[facility]/ZIP Co de Phone Number [facility] [place] [address] * Heparin (unfractionated) Level (02/24/2024 3:02 AM EDT) UF Heparin 0.23 IU/mL 02/24/2024 3:25 AM EDT [facility] Comment: Heparin (anti-Xa) levels [...] 3:02 AM EDT 02/24/2024 3:07 AM EDT Mauricio Jean MD HEMATOLOGY ORDERABLE S [facility] [place] [address] * (ABNORMAL) Magnesium (02/24/2024 3:02 AM EDT) Pathologist [facility] Magnesium 0.44(L) 0.69 - 1.07 mMol/L 02/24/2024 3:38 AM EDT [facility] Blood VENOUS BLOOD SPECIMEN / Unknown IP Care Team Draw / Unknown 02/24/2024 3:02 AM EDT 02/24/2024 3:07 AM EDT Marina Schmitz TAPE RULES PRINTING MACHINE OPERATOR CHEMISTRY ORDERAB LES Performing Organization Address City/[facility]/ZIP Co de Phone Number [facility] [place] [address] * (ABNORMAL) Basic Metabolic Panel (02/24/2024 3:02 AM [facility]) Glucose 88 65 - 199 mg/dL 02/24/2024 3:38 AM [facility] Comment:Glucose Concentratio n >=200 mg/dL plus symptoms is consistent with Diabetes Mellitus. Blood Urea Nitrogen 12 10 - 20 mg/dL 02/24/2024 3:38 AM [facility] Creatinine 0.95 0.80 - 1.50 mg/dL 02/24/2024 3:38 AM [facility] Sodium 131(L) 135 - 145 mMol/L 02/24/2024 3:38 AM [facility] Potassium 4.0 3.5 - 5.0 mMol/L 02/24/2024 3:38 AM [facility] Chloride 96(L) 98 - 107 mMol/L 02/24/2024 3:38 AM [facility] Carbon Dioxide 19(L) 22 - 31 mMol/L 02/24/2024 3:38 AM [facility] Anion Gap 16(H) 5 - 15 mMol/L 02/24/2024 3:38 AM [facility] Calcium 9.7 8.5 - 10.5 mg/dL 02/24/2024 3:38 AM [facility] Est Glomerular Filtration Rate - Male 84 mL/min/1. 73 m?? 02/24/2024 3:38 AM [facility] Comment: This patient's estimated GFR [...] 3:02 AM EDT 02/24/2024 3:07 AM EDT Marina Bethany Schmitz TAPE RULES PRINTING MACHINE OPERATOR CHEMISTRY ORDERAB LES [facility] [place] [address] * (ABNORMAL) CBC (with Diff) (02/24/2024 3:02 AM EDT) White Blood Cell 5.20 4.00 - 9.50 x10(3)/mc L 02/24/2024 3:13 AM EDT [facility] Red Blood Cell 4.11(L) 4.58 - 5.54 x10(6)/mc L 02/24/2024 3:13 AM EDT [facility] Hemoglobin 11.3(L) 13.7 - 16.5 g/dL 02/24/2024 3:13 AM EDT [facility] Hematocrit 33.2(L) 40.5 - 48.5 % 02/24/2024 3:13 AM EDT [facility] Mean Cell Volume 80.8(L) 82.9 - 93.1 fL 02/24/2024 3:13 AM EDT [facility] Mean Cell Hemoglobin 27.5 27.5 - 32.1 pg 02/24/2024 3:13 AM EDT [facility] Mean Cell Hemoglobin Concentration 34.0 32.0 - 35.7 g/dL 02/24/2024 3:13 AM EDT [facility] Platelet 151 145 - 357 x10(3)/mc L 02/24/2024 3:13 AM EDT [facility] Mean Platelet Volume 10.6 7.6 - 12.9 fL 02/24/2024 3:13 AM T [facility] RDW Standard Deviation 46.5(H) 36.0 - 45.0 fL 02/24/2024 3:13 AM EDT [facility] RDW coefficient of variation 15.7(H) 11.4 - 13.8 % 02/24/2024 3:13 AM [facility] NRBC% auto 0.0 % 02/24/2024 3:13 AM [facility] NRBC Absolute 0.00 0.00 - 0.00 x10(3)/mc L 02/24/2024 3:13 AM [facility] Neutrophil % 71.9 % 02/24/2024 3:13 AM [facility] Neutrophil Absolute (ANC) - Automated 3.74 1.70 - 6.10 x10(3)/mc L 02/24/2024 3:13 AM [facility] Lymph % 13.3 % 02/24/2024 3:13 AM [facility] Lymph Absolute 0.69(L) 0.90 - 3.20 x10(3)/mc L 02/24/2024 3:13 AM [facility] Monocyte % 11.3 % 02/24/2024 3:13 AM [facility] Monocyte Absolute 0.59 0.30 - 0.90 x10(3)/mc L 02/24/2024 3:13 AM [facility] Eos % 2.5 % 02/24/2024 3:13 AM [facility] Eos Absolute 0.13 0.00 - 0.40 x10(3)/mc L 02/24/2024 3:13 AM [facility] Basophil % 0.4 % 02/24/2024 3:13 AM [facility] Baso Absolute 0.02 0.00 - 0.10 x10(3)/mc L 02/24/2024 3:13 AM [facility] Immature Gran % 0.6 % 3:13 AM [facility] Immature Gran Absolute 0.03 0.00 - 0.04 x10(3)/mc L 02/24/2024 3:13 AM EDT [facility] Blood VENOUS BLOOD SPECIMEN / Unknown IP Care Team Draw / Unknown 02/24/2024 3:02 AM EDT 02/24/2024 3:07 AM EDT Mauricio Jean MD HEMATOLOGY ORDERABLE S Performing Organization Address City/[facility]/ZIP Co de Phone Number [facility] [place] [address] * EKG 12 Lead (02/24/2024 2:00 AM EDT) Ventricular rate 84 BPM MUSE SYSTEM Atrial Rate 84 BPM MUSE SYSTEM P-R Interval 124 ms MUSE SYSTEM QRS Duration 80 ms MUSE SYSTEM Q-T Interval 372 ms MUSE SYSTEM QTC Calculated (Bezet) 439 ms MUSE SYSTEM Calculated P [place] 59 degrees MUSE SYSTEM Calculated R [place] -8 degrees MUSE SYSTEM Calculated T [place] 0 degrees MUSE SYSTEM INTERPRETATION Normal sinus rhythm Possible Left atrial enlargement Inferior infarct (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-2020) Borderline ST depression Lateral leads Abnormal ECG When compared with ECG of 26-JUN-2023 13:17, No significant change was found I personally reviewed the tracing and edited the fellows interpretation Confirmed by fellow MD Sunshine, Carl ([id number]) on 02/24/2024 10:56:50 AM Confirmed by MD Darrick, Marshal ([id number]) on 02/25/2024 5:56:17 AM MUSE SYSTEM 02/24/2024 2:00 AM EDT 02/25/2024 5:56 AM EDT Mauricio Jean MD ECG ORDERABLES Performing Organization Address City/[facility]/ZIP Co de Phone Number MUSE SYSTEM * POC, GLUCOSE (02/23/2024 9:40 PM EDT) Glucometer, POC 135 65 - 199 mg/dL 02/23/2024 9:40 PM EDT [facility] Comment:Supplemental ranges: <140 mg/dL before meals <180 mg/dL all other times of the day. Blood CAPILLARY BLOOD / Unknown 02/23/2024 9:40 PM EDT 02/23/2024 9:40 PM EDT Kal Puentes MD POINT OF CARE TEST O RDERABLES Performing Organization Address City/[facility]/ZIP Co de Phone Number [facility] [place] [address] * (ABNORMAL) Magnesium (02/23/2024 9:37 PM EDT) Magnesium 0.43(L) 0.69 - 1.07 mMol/L 02/23/2024 10:19 PM EDT [facility] Blood VENOUS BLOOD SPECIMEN / Unknown IP Care Team Draw / Unknown 02/23/2024 9:37 PM EDT 02/23/2024 9:42 PM EDT Marina Schmitz TAPE RULES PRINTING MACHINE OPERATOR CHEMISTRY ORDERAB LES Performing Organization Address [facility]/ZIP Co de Phone Number [facility] [place] [address] * (ABNORMAL) Basic Metabolic Panel (02/23/2024 9:37 PM EDT) Glucose 126 65 - 199 mg/dL 02/23/2024 10:19 PM EDT [facility] Comment:Glucose Concentratio n >=200 mg/dL plus symptoms is consistent with Diabetes Mellitus. Blood Urea Nitrogen 14 10 - 20 mg/dL 02/23/2024 10:19 PM EDT [facility] Creatinine 1.00 0.80 - 1.50 mg/dL 02/23/2024 10:19 PM EDT [facility] Sodium 129(L) 135 - 145 mMol/L 02/23/2024 10:19 PM EDT [facility] Potassium 4.0 3.5 - 5.0 mMol/L 02/23/2024 10:19 PM EDT [facility] Chloride 94(L) 98 - 107 mMol/L 02/23/2024 10:19 PM EDT [facility] Carbon Dioxide 20(L) 22 - 31 mMol/L 02/23/2024 10:19 PM EDT [facility] Anion Gap 15 5 - 15 mMol/L 02/23/2024 10:19 PM EDT [facility] Calcium 9.6 8.5 - 10.5 mg/dL 02/23/2024 10:19 PM EDT [facility] Est Glomerular Filtration Rate - Male 79 mL/min/1. 73 m?? 02/23/2024 10:19 PM EDT [facility] Comment: This patient's estimated GFR was [...] Unknown IP Care Team Draw / Unknown 02/23/2024 9:37 PM EDT 02/23/2024 9:42 PM EDT Marina Schmitz T[employer]UL[employer] PRINTING MACHINE OPERATOR CHEMISTRY ORDERAB LES [facility] [place] [address] * (ABNORMAL) CBC (with Diff) (02/23/2024 9:37 PM EDT) White Blood Cell 5.78 4.00 - 9.50 x10(3)/mc L 02/23/2024 9:52 PM EDT [facility] Red Blood Cell 4.24(L) 4.58 - 5.54 x10(6)/mc L 02/23/2024 9:52 PM EDT [facility] Hemoglobin 11.7(L) 13.7 - 16.5 g/dL 02/23/2024 9:52 PM EDT [facility] Hematocrit 34.5(L) 40.5 - 48.5 % 02/23/2024 9:52 PM [facility] Mean Cell Volume 81.4(L) 82.9 - 93.1 fL 02/23/2024 9:52 PM [facility] Mean Cell Hemoglobin 27.6 27.5 - 32.1 pg 02/23/2024 9:52 PM [facility] Mean Cell Hemoglobin Concentration 33.9 32.0 - 35.7 g/dL 02/23/2024 9:52 PM [facility] Platelet 158 145 - 357 x10(3)/mc L 02/23/2024 9:52 PM [facility] Mean Platelet Volume 10.4 7.6 - 12.9 fL 02/23/2024 9:52 PM [facility] RDW Standard Deviation 47.0(H) 36.0 - 45.0 fL 02/23/2024 9:52 PM [facility] RDW coefficient of variation 15.8(H) 11.4 - 13.8 % 02/23/2024 9:52 PM [facility] NRBC% auto 0.0 % 02/23/2024 9:52 PM [facility] NRBC Absolute 0.00 0.00 - 0.00 x10(3)/mc L 02/23/2024 9:52 PM [facility] Neutrophil % 73.4 % 02/23/2024 9:52 PM [facility] Neutrophil Absolute (ANC) - Automated 4.24 1.70 - 6.10 x10(3)/mc L 02/23/2024 9:52 PM [facility] Lymph % 13.5 % 02/23/2024 9:52 PM [facility] Lymph Absolute 0.78(L) 0.90 - 3.20 x10(3)/mc L 02/23/2024 9:52 PM [facility] Monocyte % 9.7 % 02/23/2024 9:52 PM EDT [facility] Monocyte Absolute 0.56 0.30 - 0.90 x10(3)/mc L 02/23/2024 9:52 PM EDT [facility] Eos % 2.4 % 02/23/2024 9:52 PM EDT [facility] Eos Absolute 0.14 0.00 - 0.40 x10(3)/mc L 02/23/2024 9:52 PM EDT [facility] Basophil % 0.5 % 02/23/2024 9:52 PM EDT [facility] Baso Absolute 0.03 0.00 - 0.10 x10(3)/mc L 02/23/2024 9:52 PM EDT [facility] Immature Gran % 0.5 % 9:52 PM EDT [facility] Immature Gran Absolute 0.03 0.00 - 0.04 x10(3)/mc L 02/23/2024 9:52 PM EDT [facility] Blood VENOUS BLOOD SPECIMEN / Unknown IP Care Team Draw / Unknown 02/23/2024 9:37 PM EDT 02/23/2024 9:42 PM EDT Marina Schmitz T[employer] RUL[employer] PRINTING MACHINE OPERATOR HEMATOLOGY ORDERA BLES [facility] [place] [address] * (ABNORMAL) pro-Brain Natriuretic Peptide (02/23/2024 9:37 PM EDT) NT-proBNP 1,918(H) <=124 pg/mL 02/23/2024 10:19 PM EDT [facility] Blood VENOUS BLOOD SPECIMEN / Unknown IP Care Team Draw / Unknown 02/23/2024 9:37 PM EDT 02/23/2024 9:42 PM EDT Mauricio Jean MD CHEMISTRY ORDERABLES [facility] [place] [address] * (ABNORMAL) Troponin - Single (02/23/2024 9:37 PM EDT) Troponin-T, High Sensitivity 161(H) <=22 ng/L 02/23/2024 10:19 PM EDT [facility] Comment: This patient's troponin [...] troponin value can be found in the [facility] Test Catalog Troponin - [email or web address]/catalogs/565/files/55561 Reference: Fourth [place] Definition of Myocardial Infarction. 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, s/p tPA- Primary Coronary artery disease, unspecified vessel or lesion type, unspecified whether angina present, unspecified whether [place] or transplanted heart Internal carotid artery stenosis, unspecified laterality NSTEMI (non-ST elevated myocardial infarction) Acute myocardial infarction, subendocardial infarction, episode of care unspecified NSTEMI (non-ST elevated myocardial infarction) Acute myocardial infarction, subendocardial infarction, episode of care unspecified Hypo-osmolar hyponatremia documented in this encounter Admitting Diagnoses Diagnosis NSTEMI (non-ST elevated myocardial infarction) Acute myocardial infarction, subendocardial infarction, episode of care unspecified documented in this encounter Administered Medications Inactive Administered Medications - up to 3 most recent administrations Medication Order MAR Action Action Date Dose Rate Site acetaminophen (Tylenol) tablet 650 mg 650 mg, Oral, EVERY 4 HOURS PRN, Starting on Sat02/24/24 at 1859, Until Sat03/02/24 at 1612, Pain, Fever, Headaches, Use first line, for mild-mod pain (1-6 on pain scale), - Maximum dose of acetaminophen is 4,000 mg from all sources in 24 hours. - Unless otherwise specified, when ordered PRN for pain, acetaminophen should be given first if other PRN pain medications are ordered., Routine Given 02/28/2024 8:12 AM EDT 650 mg Given 02/27/2024 3:41 PM EDT 650 mg Given 02/27/2024 1:20 AM EDT 650 mg alteplase (Activase) (1 mg/mL) bolus dose (from vial) 6.6 mg 6.6 mg (rounded from 6.57 mg = 0.09 mg/kg/dose ? 73 kg), Intravenous, ONCE, 1 dose, On Sat02/24/24 at 1415, Push over 1 minute, STAT Given 02/24/2024 2:20 PM EDT 6. 6 mg alteplase (Activase) (1 mg/mL) injection Kit 59.1 mg 59.1 mg (rounded from 59.13 mg = 0.81 mg/kg/dose ? 73 kg), Intravenous, Administer over 60 Minutes, ONCE, 1 dose, On Sat02/24/24 at 1430, STAT Given 02/24/2024 2:24 PM EDT 59.1 mg amLODIPine (Norvasc) tablet 5 mg 5 mg, Oral, 2 TIMES DAILY, First dose on Sat02/24/24 at 0900, Until Discontinued, Routine Given 02/24/2024 8:27 AM EDT 5 mg amLODIPine (Norvasc) tablet 5 mg 5 mg, Oral, 2 TIMES DAILY, First dose on Sat02/25/24 at 0900, Until Discontinued, Routine Given 03/02/2024 10:12 AM EDT 5 mg Given 03/01/2024 8:26 PM EDT 5 mg Given 03/01/2024 9:06 AM EDT 5 mg aspirin chewable tablet 81 mg 81 mg, Oral, DAILY, First dose on Sat02/26/24 at 0900, Until Discontinued, Routine Given 03/02/2024 10:13 AM EDT 81 mg Given 03/01/2024 9:05 AM EDT 81 mg Given 02/29/2024 9:40 AM EDT 81 mg aspirin EC tablet 81 mg 81 mg, Oral, DAILY, First dose on Sat02/24/24 at 0900, Until Discontinued, Routine Given 02/24/2024 8:26 AM EDT 81 mg cephALEXin (Keflex) capsule 500 mg 500 mg, Oral, 4 TIMES DAILY, 20 doses, First dose on Sat02/25/24 at 1300, Last dose on Sat03/01/24 at 0900, Routine, Indication for (Active or Suspected): Sinusitis/Pharyngitis Given 03/01/2024 9:00 AM EDT 500 mg Given 02/29/2024 8:55 PM EDT 500 mg Given 02/29/2024 6:52 PM EDT 500 mg clopidogreL (Plavix) tablet 75 mg 75 mg, Oral, DAILY, First dose on Sat02/24/24 at 0900, Until Discontinued, Routine Given 02/24/2024 8:26 AM EDT 75 mg clopidogreL (Plavix) tablet 75 mg 75 mg, Oral, DAILY, First dose on Sat02/26/24 at 0900, Until Discontinued, Routine Given 03/02/2024 10:13 AM EDT 75 mg Given 03/01/2024 9:05 AM EDT 75 mg Given 02/29/2024 9:43 AM EDT 75 mg dextrose 10% infusion 250 mL, at 1,000 mL/hr, Intravenous, EVERY 15 MIN PRN, Starting on Sat02/26/24 at 1114, Until Sat03/02/24 at 1612, For BG 50-70 mg/dL: Oral treatment preferred: If able to drink, give 120 mL juice or regular (not diet) soda OR if NPO, give 15 gram glucose 40% oral gel massaged into buccal mucosa OR if unconscious or uncooperative, give 25 gram (250 mL) dextrose 10% IV over 15 minutes per protocol OR, if no IV access, 1 mg glucagon IM. For BG less than 50 mg/dL: Oral treatment preferred: If able to drink, give 240 mL juice or regular (not diet) soda OR if NPO, give 30 gram glucose 40% oral gel massaged in buccal mucosa OR if unconscious or uncooperative, give 25 gram (250 mL) dextrose 10% IV over 15 minutes per protocol OR, if no IV access, 1 mg glucagon IM. Recheck BG in 15 minutes. May repeat juice/soda, gel, dextrose or glucagon once per episode. Notify provider if hypoglycemia does not resolve after two treatments. Providers should consider the following: administering longer-acting treatments for the duration of active insulin or hypoglycemia agent for persistent hypoglycemia and re-evaluating active insulin orders before administering the next dose. enoxaparin (Lovenox) (40 mg/0.4 mL) subcutaneous injection 40 mg 40 mg, Subcutaneous, NIGHTLY, First dose on Sat02/25/24 at 2100, Until Discontinued, Routine Given 03/01/2024 8:26 PM EDT 40 mg Given 02/29/2024 8:55 PM EDT 40 mg Given 02/28/2024 8:51 PM EDT 40 mg ezetimibe (Zetia) tablet 10 mg 10 mg, Oral, DAILY, First dose on Sat02/24/24 at 0900, Until Discontinued, Routine Given 02/24/2024 8:27 AM EDT 10 mg ezetimibe (Zetia) tablet 10 mg 10 mg, Oral, DAILY, First dose on Sat02/25/24 at 0900, Until Discontinued, Routine Given 03/02/2024 10:12 AM EDT 10 mg Given 03/01/2024 9:05 AM EDT 10 mg Given 02/29/2024 9:41 AM EDT 10 mg furosemide (Lasix) (10 mg/mL) injection 10 mg 10 mg, Intravenous, ONCE, 1 dose, On Sat02/26/24 at 1130 Given 02/26/2024 11:22 AM EDT 10 mg glucagon (Glucagen) (1 mg/mL) injection solution 1 mg 1 mg, Intramuscular, EVERY 15 MIN PRN, Starting on Sat02/26/24 at 1114, Until Sat03/02/24 at 1612, Low blood sugar, For BG 50-70 mg/dL: Oral treatment preferred: If able to drink, give 120 mL juice or regular (not diet) soda OR if NPO, give 15 gram glucose 40% oral gel massaged into buccal mucosa OR if unconscious or uncooperative, give 25 gram (250 mL) dextrose 10% IV over 15 minutes per protocol OR, if no IV access, 1 mg glucagon IM. For BG less than 50 mg/dL: Oral treatment preferred: If able to drink, give 240 mL juice or regular (not diet) soda OR if NPO, give 30 gram glucose 40% oral gel massaged in buccal mucosa OR if unconscious or uncooperative, give 25 gram (250 mL) dextrose 10% IV over 15 minutes per protocol OR, if no IV access, 1 mg glucagon IM. Recheck BG in 15 minutes. May repeat juice/soda, gel, dextrose or glucagon once per episode. Notify provider if hypoglycemia does not resolve after two treatments. Providers should consider the following: administering longer-acting treatments for the duration of active insulin or hypoglycemia agent for persistent hypoglycemia and re-evaluating active insulin orders before administering the next dose. , Routine glucose (Glutose) 40% oral geL 15-30 g of glucose, Buccal, EVERY 15 MIN PRN, Starting on Sat02/26/24 at 1114, Until Sat03/02/24 at 1612, Low blood sugar, For BG 50-70 mg/dL: Oral treatment preferred: If able to drink, give 120 mL juice or regular (not diet) soda OR if NPO, give 15 gram glucose 40% oral gel massaged into buccal mucosa OR if unconscious or uncooperative, give 25 gram (250 mL) dextrose 10% IV over 15 minutes per protocol OR, if no IV access, 1 mg glucagon IM. For BG less than 50 mg/dL: Oral treatment preferred: If able to drink, give 240 mL juice or regular (not diet) soda OR if NPO, give 30 gram glucose 40% oral gel massaged in buccal mucosa OR if unconscious or uncooperative, give 25 gram (250 mL) dextrose 10% IV over 15 minutes per protocol OR, if no IV access, 1 mg glucagon IM. Recheck BG in 15 minutes. May repeat juice/soda, gel, dextrose or glucagon once per episode. Notify provider if hypoglycemia does not resolve after two treatments. Providers should consider the following: administering longer-acting treatments for the duration of active insulin or hypoglycemia agent for persistent hypoglycemia and re-evaluating active insulin orders before administering the next dose. 1 tube of Glutose-15 contains 15 grams of glucose (net weight of tube = 37.5 grams.), Routine heparin (porcine) 25,000 unit/500 mL (50 unit/mL) infusion 1 dose, Starting on Sat02/23/24 at 2125, Until Sat02/23/24 at 2131, Linda Anne L.P.: cabinet override heparin (porcine) 50 units/mL in dextrose 5% 500 mL infusion 0-5,000 Units/hr (0-100 mL/hr), Intravenous, CONTINUOUS, Starting on Sat02/23/24 at 2145, Until Sat02/24/24 at 1538, Begin infusion at 900 units per hr (12 units/kg/hr). Maximum initial infusion rate is 1,000 units/hr. Infusion doses are rounded to the nearest 50 units. Target Heparin UFH Level (anti-Xa activity) = 0.3 - 0.7 international unit/mL Start adjustment schedule 6 hours after starting infusion. If Heparin UFH Level is: - Less than 0.1 international unit/mL: Administer PRN bolus and increase rate by 300 units per hr (4 units/kg/hr) - 0.1 - 0.19 international unit/mL: Administer PRN bolus and increase rate by 150 units per hr (2 units/kg/hr) - 0.2 - 0.29 international unit/mL: NO BOLUS and increase rate by 150 units per hr (2 units/kg/hr) - 0.3 - 0.7 international unit/mL: No change - 0.71 - 0.79 international unit/mL: NO BOLUS and decrease rate by 100 units per hr (1 units/kg/hr) - 0.8 - 0.99 international unit/mL: NO BOLUS and decrease rate by 150 units per hr (2 units/kg/hr) - Greater than or equal to 1.00 international unit/mL: Hold infusion for 60 minutes then decrease rate by 250 units per hour (3 units/kg/hr) Obtain Heparin UFH Level 6 hours after initiating heparin. Then 6 hours after each dose adjustment. When 2 consecutive Heparin UFH Level within target range of 0.3 - 0.7 international unit/mL, change Heparin UFH Level to once every 24 hours with A.M. labs while on heparin. RN to order required Heparin UFH Level - Per Protocol, Routine Rate/Dose Change 02/24/2024 8:40 AM EDT 1,050 Units/hr 21 mL/hr Rate/Dose Verify 02/24/2024 8:19 AM EDT 900 Units/hr 18 mL /hr Rate/Dose Change 02/24/2024 3:30 AM EDT 1,050 Units/hr 21 mL/hr insulin glargine-ygfn (Semglee) (100 unit/mL) subcutaneous injection vial 5 Units 5 Units, Subcutaneous, NIGHTLY, First dose on Sat02/23/24 at 2215, Until Discontinued, Routine Given 02/23/2024 11:51 PM EDT 5 Units insulin glargine-ygfn (Semglee) (100 unit/mL) subcutaneous injection vial 5 Units 5 Units, Subcutaneous, NIGHTLY, First dose on Sat02/28/24 at 2100, Until Discontinued, Routine Given 03/01/2024 8:27 PM EDT 5 Units Given 02/29/2024 8:57 PM EDT 5 Units Given 02/28/2024 8:51 PM EDT 5 Units insulin lispro (HumaLOG;Admelog) (100 unit/mL) subcutaneous injection vial 0-8 Units 0-8 Units, Subcutaneous, 3 TIMES DAILY WITH MEALS, First dose on Sat02/26/24 at 1200, Until Discontinued, MEAL ASSOCIATED Give 1 unit for every 10 grams carbohydrate. Hold if not eating or if BG less than 70 mg/dL. , Routine Given 03/02/2024 12:49 PM EDT 6 Units Given 03/02/2024 10:12 AM EDT 4 Units Given 03/01/2024 4:50 PM EDT 4 Units insulin lispro (HumaLOG;Admelog) (100 unit/mL) subcutaneous injection vial 1-4 Units 1-4 Units, Subcutaneous, EVERY 4 HOURS SCHEDULED, First dose on Sat02/24/24 at 2130, Until Discontinued, CORRECTION BOLUS [1-4 Units] Sensitive [...] in 2 hours (no more than 3 times)??& call for new insulin orders. DO NOT hold if NPO, unless specifically directed to do so by written order. ?? Per Inpatient Subcutaneous Insulin Policy, recheck a BG of greater than 240 mg/dL in 2 hours., Routine Given 02/25/2024 3:59 AM EDT 3 Units Given 02/24/2024 9:12 PM EDT 2 Units insulin lispro (HumaLOG;Admelog) (100 unit/mL) subcutaneous injection vial 1-6 Units 1-6 Units, Subcutaneous, 3 TIMES DAILY BEFORE MEALS, First dose on Sat02/24/24 at 0730, Until Discontinued, CORRECTION BOLUS [1-6 Units] Moderate [...] 240 mg/dL in 2 hours., Routine Given 02/24/2024 7:03 PM EDT 1 Units insulin lispro (HumaLOG;Admelog) (100 unit/mL) subcutaneous injection vial 1-6 Units 1-6 Units, Subcutaneous, EVERY 4 HOURS SCHEDULED, First dose on Sat02/25/24 at 0800, Until Discontinued, CORRECTION BOLUS [1-6 Units] Moderate [...] 240 mg/dL in 2 hours., Routine Given 02/26/2024 9:36 AM EDT 6 Units Given 02/26/2024 7:42 AM EDT 6 Units Given 02/26/2024 12:05 AM EDT 2 Units insulin lispro (HumaLOG;Admelog) (100 unit/mL) subcutaneous injection vial 1-6 Units 1-6 Units, Subcutaneous, 3 TIMES DAILY BEFORE MEALS, First dose on Sat02/26/24 at 1145, Until Discontinued, CORRECTION BOLUS [1-6 Units] Moderate [...] 240 mg/dL in 2 hours., Routine Given 03/02/2024 12:49 PM EDT 5 Units Given 03/01/2024 4:50 PM EDT 1 Units Given 03/01/2024 11:53 AM EDT 3 Units iohexoL (Omnipaque) (350 mg/mL) solution 0-200 mL 0-200 mL, Intravenous, ONCE PRN, 1 dose, Starting on Sat02/24/24 at 1310, Until Sat02/24/24 at 1310, Per Protocol, Warning Vesicant/Irritant Medication , Radiology Contrast, Routine Given 02/24/2024 1:10 PM EDT 65 mLs isosorbide mononitrate CR (Imdur) tablet 30 mg 30 mg, Oral, EVERY MORNING, First dose on Sat02/24/24 at 0830, Until Discontinued, DO NOT CRUSH OR OPEN, Routine Given 02/24/2024 8:31 AM EDT 30 mg labetaloL (Normodyne) (5 mg/mL) injection solution 10-20 mg 10-20 mg, Intravenous, Administer over 2 Minutes, EVERY 15 MIN PRN, Starting on Sat02/24/24 at 1406, Until Sat03/02/24 at 1612, High Blood Pressure, Administer for systolic BP greater than or equal to 180 mmHg and/or diastolic BP greater than or equal to 105 mmHg. Administer 10 mg over 2 minutes. May repeat every 15 minutes if SBP remains above 180 mmHg. If 10 mg dose is not effective then increase to 20 mg dose for subsequent dosing every 15 minutes. Do not exceed 300 mg per 24 hours. Hold if pulse less than 50 beats per minute. If goal BP is not achieved after 3 consecutive doses of labetaloL, contact stroke provider and start niCARdipine. May be given with niCARdipine and enalaprilat., Routine magnesium sulfate 2 g in sterile water 50 mL infusion 2 g, Intravenous, ONCE, 1 dose, On Sat02/24/24 at 0445, Administer over 120 Minutes New Bag 02/24/2024 5:41 AM EDT 2 g 25 mL/hr magnesium sulfate 2 g in sterile water 50 mL infusion 2 g, Intravenous, EVERY 2 HOURS, 2 doses, First dose on Sat02/25/24 at 0230, Last dose on Sat02/25/24 at 0430, Administer over 120 Minutes New Bag 02/25/2024 4:33 AM EDT 2 g 25 mL/hr New Bag 02/25/2024 2:19 AM EDT 2 g 25 mL/hr magnesium sulfate 2 g in sterile water 50 mL infusion 2 g, Intravenous, ONCE, 1 dose, On Mary Beth 02/27/24 at 0815, Administer over 120 Minutes New Bag 02/27/2024 8:08 AM EDT 2 g 25 mL/hr magnesium sulfate 2 g in sterile water 50 mL infusion 2 g, Intravenous, ONCE, 1 dose, On Sat02/28/24 at 0945, Administer over 120 Minutes New Bag 02/28/2024 1:41 PM EDT 2 g 25 mL/hr metoprolol tartrate (Lopressor) tablet 100 mg 100 mg, Oral, 2 TIMES DAILY, First dose on Sat02/24/24 at 0115, Until Discontinued, Routine Given 02/24/2024 8:27 AM EDT 100 mg Given 02/24/2024 2:14 AM EDT 100 mg metoprolol tartrate (Lopressor) tablet 100 mg 100 mg, Oral, EVERY 12 HOURS SCHEDULED (2 times per day), First dose on Sat02/25/24 at 0900, Until Discontinued, Routine Given 03/02/2024 10:13 AM EDT 100 mg Given 03/01/2024 8:26 PM EDT 100 mg Given 03/01/2024 9:05 AM EDT 100 mg multivitamin with minerals (Thera M) tablet 1 tablet 1 tablet, Oral, DAILY, First dose on Sat02/24/24 at 0900, Until Discontinued, Routine Given 02/24/2024 8:29 AM EDT 1 tablet pantoprazole EC (Protonix) tablet 40 mg 40 mg, Oral, DAILY, First dose on Sat02/24/24 at 0900, Until Discontinued Given 02/24/2024 8:28 AM EDT 40 mg pantoprazole EC (Protonix) tablet 40 mg 40 mg, Oral, DAILY, First dose on Sat02/25/24 at 0900, Until Discontinued, DO NOT CRUSH OR OPEN, Routine Given 03/02/2024 10:13 AM EDT 40 mg Given 03/01/2024 9:05 AM EDT 40 mg Given 02/29/2024 9:43 AM EDT 40 mg perflutren protein-A microsphers (Optison) (0.22 mg/mL) injection 0.5 mL 0.5 mL, Intravenous, ONCE PRN, 1 dose, Starting on Sat02/24/24 at 0918, Until Sat02/24/24 at 0918, for enhancement of sub-optimal echo images, Echo Lab (Intra-Procedure), Routine Given 02/24/2024 9:18 AM EDT 0.5 mLs rosuvastatin (Crestor) tablet 40 mg 40 mg, Oral, DAILY, First dose on Sat02/24/24 at 0900, Until Discontinued, Routine Given 02/24/2024 8:28 AM EDT 40 mg rosuvastatin (Crestor) tablet 40 mg 40 mg, Oral, EVERY EVENING, First dose on Sat02/25/24 at 1700, Until Discontinued, Routine Given 03/01/2024 5:00 PM EDT 40 mg Given 02/29/2024 4:24 PM EDT 40 mg Given 02/28/2024 5:44 PM EDT 40 mg sacubitriL-valsartan (Entresto) 24-26 mg per tablet 1 tablet 1 tablet, Oral, 2 TIMES DAILY, First dose on Sat02/27/24 at 1000, Until Discontinued, Routine, Is this a continuation of home medication? Yes Given 03/02/2024 10:12 AM EDT 1 tabl et Given 03/01/2024 8:26 PM EDT 1 tablet Given 03/01/2024 9:05 AM EDT 1 tablet sodium chloride 0.9 % (flush) (BD PosiFlush Normal Saline 0.9) flush 5 mL 5 mL, Intravenous, 2 TIMES DAILY, First dose on Sat02/24/24 at 0115, Until Discontinued, Routine Given 02/24/2024 8:31 AM EDT 5 mLs Given 02/24/2024 2:15 AM EDT 5 mLs sodium chloride 0.9% infusion 30 mL, Intravenous, ONCE, 1 dose, On Sat02/24/24 at 1545, After alteplase (Activase) infusion has completed, flush line with 30 mL, running at same rate as alteplase infusion. New Bag 02/24/2024 3:21 PM EDT 30 mLs sodium chloride tablet 1 g 1 g, Oral, 3 TIMES DAILY, First dose on Sat02/29/24 at 0900, Until Discontinued, Routine Given 03/02/2024 10:12 AM EDT 1 g Given 03/01/2024 8:26 PM EDT 1 g Given 03/01/2024 4:15 PM EDT 1 g documented in this encounter Active and Recently Administered Medications Times are shown in EDT. Scheduled Medication Order 02/29/2024 03/01/2024 03/02/2024 amLODIPine (Norvasc) tablet 5 mg 5 mg, Oral, 2 TIMES DAILY, First dose on Sat02/25/24 at 0900, Until Discontinued, Routine 09 (Given - Provider: Dotty Burns RN)2054 (Given - Provider: Linsey Esquivel RN) 09 (Given - Provider: Wendi Baeza RN)2025 (Given - Provider: Linsey Esquivel RN) 101 (Given - Provider: Miguel A Vides LPN - Comment: patient was off unit for PT) aspirin chewable tablet 81 mg 81 mg, Oral, DAILY, First dose on Sat02/26/24 at 0900, Until Discontinued, Routine 0940 (Given - Provider: Dotty Burns RN) 09 (Given - Provider: Wendi Baeza RN) 101 (Given - Provider: Miguel A Vides LPN - Comment: patient was off unit for PT) cephALEXin (Keflex) capsule 500 mg (COMPLETED) 500 mg, Oral, 4 TIMES DAILY, 20 doses, First dose on Sat02/25/24 at 1300, Last dose on Sat03/01/24 at 0900, Routine, Indication for (Active or Suspected): Sinusitis/Pharyngitis 0945 (Given - Provider: Dotty Burns RN)1300 (Given - Provider: Noemi Townsend RN)185 (Given - Provider: Noemi Townsend RN)2054 (Given - Provider: Linsey Esquivel RN) 0900 (Given - Provider: Wendi Baeza RN) clopidogreL (Plavix) tablet 75 mg 75 mg, Oral, DAILY, First dose on Sat02/26/24 at 0900, Until Discontinued, Routine 0943 (Given - Provider: Dotty Burns RN) 0905 (Given - Provider: Wendi Baeza, RN) 101 (Given - Provider: Miguel A Vides LPN - Comment: patient was off unit for PT) enoxaparin (Lovenox) (40 mg/0.4 mL) subcutaneous injection 40 mg 40 mg, Subcutaneous, NIGHTLY, First dose on Sat02/25/24 at 2100, Until Discontinued, Routine 2054 (Given - Provider: Linsey Esquivel RN) 2025 (Given - Provider: Linsey Esquivel RN) ezetimibe (Zetia) tablet 10 mg 10 mg, Oral, DAILY, First dose on Sat02/25/24 at 0900, Until Discontinued, Routine 09 (Given - Provider: Dotty Burns RN) 09 (Given - Provider: Wendi Baeza RN) 101 (Given - Provider: Miguel A Vides LPN - Comment: patient was off unit for PT) insulin glargine-ygfn (Semglee) (100 unit/mL) subcutaneous injection vial 5 Units 5 Units, Subcutaneous, NIGHTLY, First dose on Sat02/28/24 at 2100, Until Discontinued, Routine 2056 (Given - Provider: Linsey Esquivel RN) 2026 (Given - Provider: Linsey Esquivel RN) insulin lispro (HumaLOG;Admelog) (100 unit/mL) subcutaneous injection vial 0-8 Units 0-8 Units, Subcutaneous, 3 TIMES DAILY WITH MEALS, First dose on Sat02/26/24 at 1200, Until Discontinued, ME[employer] ASS[employer] Give 1 unit for every 10 grams carbohydrate. Hold if not eating or if BG less than 70 mg/dL. , Routine 0949 (Given - Provider: Dotty Burns RN)1345 (Given - Provider: Noemi Townsend RN)1754 (Given - Provider: Dotty Burns RN) 0736 (Given - Provider: Wendi Baeza RN)1153 (Given - Provider: Wendi Baeza RN)1650 (Given - Provider: Wendi Baeza RN) 1012 (Given - Provider: Miguel A Vides LPN - Comment: patient was off unit for PT)1249 (Given - Provider: Miguel A Vides LPN) insulin lispro (HumaLOG;Admelog) (100 unit/mL) subcutaneous injection vial 1-6 Units(Linked Group 1) 1-6 Units, Subcutaneous, 3 TIMES DAILY BEFORE MEALS, First dose on Sat02/26/24 at 1145, Until Discontinued, CORRECTION BOLUS [1-6 Units] Moderate [...] than 240 mg/dL in 2 hours., Routine 0806 (Given - Provider: Dotty Burns RN - Comment: FSBS 148)1142 (Given - Provider: Dotty Burns RN - Comment: FSBS 259)1630 (Not Given - Provider: Noemi Townsend RN - Reason: Order parameters not met - Comment: FSBS 105) 0736 (Given - Provider: Wendi Baeza RN)1153 (Given - Provider: Wendi Baeza RN)1650 (Given - Provider: Wendi Baeza RN) 0730 (Not Given - Provider: Miguel A Vides LPN - Reason: See comment - Comment: patient was off unit in gym for PT)1249 (Given - Provider: Miguel A Vides LPN) metoprolol tartrate (Lopressor) tablet 100 mg 100 mg, Oral, EVERY 12 HOURS SCHEDULED (2 times per day), First dose on Sat02/25/24 at 0900, Until Discontinued, Routine 0943 (Given - Provider: Dotty Burns RN)2054 (Given - Provider: Linsey Esquivel RN) 09 (Given - Provider: Wendi Baeza RN)2025 (Given - Provider: Linsey Esquivel RN) 101 (Given - Provider: Miguel A Vides LPN - Comment: patient was off unit for PT) pantoprazole EC (Protonix) tablet 40 mg 40 mg, Oral, DAILY, First dose on Sat02/25/24 at 0900, Until Discontinued, DO NOT CRUSH OR OPEN, Routine 0943 (Given - Provider: Dotty Burns RN) 09 (Given - Provider: Wendi Baeza RN) 101 (Given - Provider: Miguel A Vides LPN - Comment: patient was off unit for PT) rosuvastatin (Crestor) tablet 40 mg 40 mg, Oral, EVERY EVENING, First dose on Sat02/25/24 at 1700, Until Discontinued, Routine 1624 (Given - Provider: oNemi Townsend, MOISES) 1700 (Given - Provider: Wendi Baeza RN) sacubitriL-valsartan (Entresto) 24-26 mg per tablet 1 tablet 1 tablet, Oral, 2 TIMES DAILY, First dose on Sat02/27/24 at 1000, Until Discontinued, Routine, Is this a continuation of home medication? Yes 0948 (Given - Provider: Dotty Burns RN)2130 (Given - Provider: Linsey Esquivel RN) 09 (Given - Provider: Wendi Baeza RN)2025 (Given - Provider: Linsey Esquivel RN) 101 (Given - Provider: Miguel A Vides LPN - Comment: patient was off unit for PT) sodium chloride tablet 1 g 1 g, Oral, 3 TIMES DAILY, First dose on Sat02/29/24 at 0900, Until Discontinued, Routine 0954 (Given - Provider: Dotty Burns RN)162 (Given - Provider: Noemi Townsend RN)2055 (Given - Provider: Linsey Esquivel RN) 09 (Given - Provider: Wendi Baeza RN)161 (Given - Provider: Wendi Baeza RN)2025 (Given - Provider: Linsey Esquivel RN) 101 (Given - Provider: Miguel A Vides LPN - Comment: patient was off unit for PT) PRN Medication Order 02/29/2024 03/01/2024 03/02/2024 acetaminophen (Tylenol) tablet 650 mg 650 mg, Oral, EVERY 4 HOURS PRN, Starting on Sat02/24/24 at 1859, Until Sat03/02/24 at 1612, Pain, Fever, Headaches, Use first line, for mild-mod pain (1-6 on pain scale), - Maximum dose of acetaminophen is 4,000 mg from all sources in 24 hours. - Unless otherwise specified, when ordered PRN for pain, acetaminophen should be given first if other PRN pain medications are ordered., Routine dextrose 10% infusion(Linked Group 2) 250 mL, at 1,000 mL/hr, Intravenous, EVERY 15 MIN PRN, Starting on Sat02/26/24 at 1114, Until Sat03/02/24 at 1612, For BG 50-70 mg/dL: Oral treatment preferred: If able to drink, give 120 mL juice or regular (not diet) soda OR if NPO, give 15 gram glucose 40% oral gel massaged into buccal mucosa OR if unconscious or uncooperative, give 25 gram (250 mL) dextrose 10% IV over 15 minutes per protocol OR, if no IV access, 1 mg glucagon IM. For BG less than 50 mg/dL: Oral treatment preferred: If able to drink, give 240 mL juice or regular (not diet) soda OR if NPO, give 30 gram glucose 40% oral gel massaged in buccal mucosa OR if unconscious or uncooperative, give 25 gram (250 mL) dextrose 10% IV over 15 minutes per protocol OR, if no IV access, 1 mg glucagon IM. Recheck BG in 15 minutes. May repeat juice/soda, gel, dextrose or glucagon once per episode. Notify provider if hypoglycemia does not resolve after two treatments. Providers should consider the following: administering longer-acting treatments for the duration of active insulin or hypoglycemia agent for persistent hypoglycemia and re-evaluating active insulin orders before administering the next dose. glucagon (Glucagen) (1 mg/mL) injection solution 1 mg(Linked Group 2) 1 mg, Intramuscular, EVERY 15 MIN PRN, Starting on Sat02/26/24 at 1114, Until Sat03/02/24 at 1612, Low blood sugar, For BG 50-70 mg/dL: Oral treatment preferred: If able to drink, give 120 mL juice or regular (not diet) soda OR if NPO, give 15 gram glucose 40% oral gel massaged into buccal mucosa OR if unconscious or uncooperative, give 25 gram (250 mL) dextrose 10% IV over 15 minutes per protocol OR, if no IV access, 1 mg glucagon IM. For BG less than 50 mg/dL: Oral treatment preferred: If able to drink, give 240 mL juice or regular (not diet) soda OR if NPO, give 30 gram glucose 40% oral gel massaged in buccal mucosa OR if unconscious or uncooperative, give 25 gram (250 mL) dextrose 10% IV over 15 minutes per protocol OR, if no IV access, 1 mg glucagon IM. Recheck BG in 15 minutes. May repeat juice/soda, gel, dextrose or glucagon once per episode. Notify provider if hypoglycemia does not resolve after two treatments. Providers should consider the following: administering longer-acting treatments for the duration of active insulin or hypoglycemia agent for persistent hypoglycemia and re-evaluating active insulin orders before administering the next dose. , Routine glucose (Glutose) 40% oral geL(Linked Group 2) 15-30 g of glucose, Buccal, EVERY 15 MIN PRN, Starting on Sat02/26/24 at 1114, Until Sat03/02/24 at 1612, Low blood sugar, For BG 50-70 mg/dL: Oral treatment preferred: If able to drink, give 120 mL juice or regular (not diet) soda OR if NPO, give 15 gram glucose 40% oral gel massaged into buccal mucosa OR if unconscious or uncooperative, give 25 gram (250 mL) dextrose 10% IV over 15 minutes per protocol OR, if no IV access, 1 mg glucagon IM. For BG less than 50 mg/dL: Oral treatment preferred: If able to drink, give 240 mL juice or regular (not diet) soda OR if NPO, give 30 gram glucose 40% oral gel massaged in buccal mucosa OR if unconscious or uncooperative, give 25 gram (250 mL) dextrose 10% IV over 15 minutes per protocol OR, if no IV access, 1 mg glucagon IM. Recheck BG in 15 minutes. May repeat juice/soda, gel, dextrose or glucagon once per episode. Notify provider if hypoglycemia does not resolve after two treatments. Providers should consider the following: administering longer-acting treatments for the duration of active insulin or hypoglycemia agent for persistent hypoglycemia and re-evaluating active insulin orders before administering the next dose. 1 tube of Glutose-15 contains 15 grams of glucose (net weight of tube = 37.5 grams.), Routine labetaloL (Normodyne) (5 mg/mL) injection solution 10-20 mg 10-20 mg, Intravenous, Administer over 2 Minutes, EVERY 15 MIN PRN, Starting on Sat02/24/24 at 1406, Until Sat03/02/24 at 1612, High Blood Pressure, Administer for systolic BP greater than or equal to 180 mmHg and/or diastolic BP greater than or equal to 105 mmHg. Administer 10 mg over 2 minutes. May repeat every 15 minutes if SBP remains above 180 mmHg. If 10 mg dose is not effective then increase to 20 mg dose for subsequent dosing every 15 minutes. Do not exceed 300 mg per 24 hours. Hold if pulse less than 50 beats per minute. If goal BP is not achieved after 3 consecutive doses of labetaloL, contact stroke provider and start niCARdipine. May be given with niCARdipine and enalaprilat., Routine Linked Groups Order Group 1: POCT Fingerstick Glucose (CANCELED) Routine, 4 TIMES DAILY BEFORE MEALS & AT BEDTIME, First occurrence on Sat02/26/24 at 1700, Until Specified, Consider choosing FOUR TIMES A DAY BEFORE MEALS AND AT BEDTIME as frequency for: Patients who have a good hypoglycemia awareness: -Patients who are eating meals during the day and sleeping at night -Patients who are otherwise stable And insulin lispro (HumaLOG;Admelog) (100 unit/mL) subcutaneous injection vial 1-6 UnitsJump to med 1-6 Units, Subcutaneous, 3 TIMES DAILY BEFORE MEALS, First dose on Sat02/26/24 at 1145, Until Discontinued, CORRECTION BOLUS [1-6 Units] Moderate [...] mg/dL in 2 hours., Routine Group 2: glucose (Glutose) 40% oral geLJump to med 15-30 g of glucose, Buccal, EVERY 15 MIN PRN, Starting on Sat02/26/24 at 1114, Until Sat03/02/24 at 1612, Low blood sugar, For BG 50-70 mg/dL: Oral treatment preferred: If able to drink, give 120 mL juice or regular (not diet) soda OR if NPO, give 15 gram glucose 40% oral gel massaged into buccal mucosa OR if unconscious or uncooperative, give 25 gram (250 mL) dextrose 10% IV over 15 minutes per protocol OR, if no IV access, 1 mg glucagon IM. For BG less than 50 mg/dL: Oral treatment preferred: If able to drink, give 240 mL juice or regular (not diet) soda OR if NPO, give 30 gram glucose 40% oral gel massaged in buccal mucosa OR if unconscious or uncooperative, give 25 gram (250 mL) dextrose 10% IV over 15 minutes per protocol OR, if no IV access, 1 mg glucagon IM. Recheck BG in 15 minutes. May repeat juice/soda, gel, dextrose or glucagon once per episode. Notify provider if hypoglycemia does not resolve after two treatments. Providers should consider the following: administering longer-acting treatments for the duration of active insulin or hypoglycemia agent for persistent hypoglycemia and re-evaluating active insulin orders before administering the next dose. 1 tube of Glutose-15 contains 15 grams of glucose (net weight of tube = 37.5 grams.), Routine Or dextrose 10% infusionJump to med 250 mL, at 1,000 mL/hr, Intravenous, EVERY 15 MIN PRN, Starting on Sat02/26/24 at 1114, Until Sat03/02/24 at 1612, For BG 50-70 mg/dL: Oral treatment preferred: If able to drink, give 120 mL juice or regular (not diet) soda OR if NPO, give 15 gram glucose 40% oral gel massaged into buccal mucosa OR if unconscious or uncooperative, give 25 gram (250 mL) dextrose 10% IV over 15 minutes per protocol OR, if no IV access, 1 mg glucagon IM. For BG less than 50 mg/dL: Oral treatment preferred: If able to drink, give 240 mL juice or regular (not diet) soda OR if NPO, give 30 gram glucose 40% oral gel massaged in buccal mucosa OR if unconscious or uncooperative, give 25 gram (250 mL) dextrose 10% IV over 15 minutes per protocol OR, if no IV access, 1 mg glucagon IM. Recheck BG in 15 minutes. May repeat juice/soda, gel, dextrose or glucagon once per episode. Notify provider if hypoglycemia does not resolve after two treatments. Providers should consider the following: administering longer-acting treatments for the duration of active insulin or hypoglycemia agent for persistent hypoglycemia and re-evaluating active insulin orders before administering the next dose. Or glucagon (Glucagen) (1 mg/mL) injection solution 1 mgJump to med 1 mg, Intramuscular, EVERY 15 MIN PRN, Starting on Sat02/26/24 at 1114, Until Sat03/02/24 at 1612, Low blood sugar, For BG 50-70 mg/dL: Oral treatment preferred: If able to drink, give 120 mL juice or regular (not diet) soda OR if NPO, give 15 gram glucose 40% oral gel massaged into buccal mucosa OR if unconscious or uncooperative, give 25 gram (250 mL) dextrose 10% IV over 15 minutes per protocol OR, if no IV access, 1 mg glucagon IM. For BG less than 50 mg/dL: Oral treatment preferred: If able to drink, give 240 mL juice or regular (not diet) soda OR if NPO, give 30 gram glucose 40% oral gel massaged in buccal mucosa OR if unconscious or uncooperative, give 25 gram (250 mL) dextrose 10% IV over 15 minutes per protocol OR, if no IV access, 1 mg glucagon IM. Recheck BG in 15 minutes. May repeat juice/soda, gel, dextrose or glucagon once per episode. Notify provider if hypoglycemia does not resolve after two treatments. Providers should consider the following: administering longer-acting treatments for the duration of active insulin or hypoglycemia agent for persistent hypoglycemia and re-evaluating active insulin orders before administering the next dose. , Routine documented in this encounter Care Teams Salesperson Women'S Dresses Relationship Specialty Start Date End Date Tamia Tsai PA [address] [place] [id number] PCP - General Family Medicine 02/18/24 documented as of this encounter
--- OUTSIDE RECORDS SUMMARY | 2024-03-26 15:51 | XMS_ITS | Encounter Summary ---
Author Organization [facility] [address] Care Team Providers Care Brim Edge Trimmer Name Role Phone Tamia Tsai Primary Care Provider [phone] Encounter Details Date Type Department Care Team (Latest Contact Info) Description 02/24/2024 Travel Social History Tobacco Use Types Packs/Day Years Used Date Smoking Tobacco: Never Smokeless Tobacco: Never Alcohol Use Standard Drinks/Week Comments Not Currently 0 (1 standard drink = 0.6 oz pur e alcohol) [facility] Utilities Answer Date Recorded In the [...] were you homeless or living in a fci (including now)? No 02/24/2024 IPV Inpatient Questions [...] 2:30 PM EST [place] [address] Susanna Cm, [employer] [facility] [place] [address] documented as of this encounter Visit Diagnoses Not on filedocumented in this encounter Care Teams Brim Edge Trimmer Relationship Specialty Start Date End Date Tamia Tsai PA [address] [place] [id number] PCP - General Family Medicine 02/18/24 documented as of this encounter
--- OUTSIDE RECORDS SUMMARY | 2024-03-26 15:52 | XMS_ITS | Encounter Summary ---
Author Organization [facility] [place] [place] [address] Care Team Providers Care Athletic Coach Name Role Phone Tamia Tsai Primary Care Provider [phone] Encounter Details Date Type Department Care Team (Late st Contact Info) Description 02/23/2024 External [place] [id number] Social History Tobacco Use Types Packs/Day Years Used Date Smoking Tobacco: Never Smokeless Tobacco: Never Alcohol Use Standard Drinks/Week Comments Not Currently 0 (1 standard drink = 0.6 oz pur e alcohol) [facility] Utilities Answer Date Recorded In [...] any time in the past 12 [facility], were you homeless or living in a care home (including now)? No 02/24/2024 IPV Inpatient Questions [...] 2:30 PM EST Office [place] [address] Susanna Cm, [facility] [place] [address] documented as of this encounter Procedures Procedure Name Priority Date/Time Associated Diagnosis Comments MISC EXTERNAL CARDIOLOGY RESULT Routine 02/23/2024 10:57 AM EDT documented in this encounter Results * External Cardiology Result (02/23/2024 10:57 AM EDT) Anatomical Region Laterality Modality Other Historical Provider EXTERNAL CARDIOLO GY RESULT documented in this encounter Visit Diagnoses Not on filedocumented in this encounter Care Teams Athletic Coach Relationship Specialty Start Date End Date Tamia Tsai PA [address] [place] [id number] PCP - General Family Medicine 02/18/24 documented as of this encounter
--- OUTSIDE RECORDS SUMMARY | 2024-03-26 15:52 | XMS_ITS | Encounter Summary ---
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 Screening for cardiovascular condition [Z13.6] Aortic valve disease [I35.9] ASCVD (arteriosclerotic cardiovascular disease) [I25.10] Procedures PRG CATH PLMT LEFT HEART CATH & ARTS W/INJ & ANGIO IMG S&I CARDIAC CATHETERIZATION CORONARY ANGIOGRAPHY; W LHC,POSSIBLE PCI (WRVU 5.6) Avani Danielle MD [facility] [place] [address] [facility] Referral ID Status Reason Start Date Expiration Date Visits Re quested Visits Authorized [id number] 1 1 Encounter Details Date Type Department Care Team (Latest Contact Info) Description 05/17/2023 10:20 AM EDT - 05/17/2023 6:58 PM EDT Hospital Encounter [place] [address] Avani Danielle MD [facility] [address] Screening for cardiovascular condition; Aortic valve disease; ASCVD (arteriosclerotic cardiovascular disease) Discharge Disposition: Home Social History Tobacco Use Types Packs/Day Years Used Date Smoking Tobacco: Never Smokeless Tobacco: Never Alcohol Use Standard Drinks/Week Comments Not Currently 0 (1 standard drink = 0.6 oz pur e alcohol) Sex and Gender Information Value Date Recorded Sex Assigned at Not on file Gender Identity Not on file Sexual Orientation Not on file documented as of this encounter Last Filed Vital Signs Vital Sign Reading Time Taken Comments Blood Pressure 125/73 05/17/2023 6:33 PM EDT Pulse 68 05/17/2023 4:28 PM EDT Temperature 36.7 ??C (98.1 ??F) 05/17/2023 6:33 PM ED T Respiratory Rate 16 05/17/2023 6:33 PM EDT Oxygen Saturation 96% 05/17/2023 6:33 PM EDT Inhaled Oxygen Concentration - - Weight 79.4 kg (175 lb) 05/17/2023 11:43 AM EDT Height 170.2 cm (5' 7) 05/17/2023 11:43 AM EDT Body Mass Index 27.41 05/17/2023 11:43 AM EDT documented in this encounter Discharge Instructions * Discharge Instructions* Parvin Mace RN - 05/17/2023 4:37 PM EDT CARDIAC CATHETERIZATION Activity If you are discharged the same day as your procedure, do not drive yourself home. Arrange to have another person drive. You may walk around when you get home, but keep your activity at a minimum until the morning. Do not bend over, strain, or lift heavy objects for 24 hours after the procedure. Do not participate in active sports for 48 hours. You may engage in sexual activity after 48 hours. Catheter Insertion Area Care Take the band-aid off the catheter insertion area the morning following the procedure. You may takea shower if you wish Wash the area with soap and water Look for signs of infection over the next several days A little spot of blood at the catheter insertion area is not unusual A bruise or small lump under the skin is normal, they generally disappear in 3-4 days For the first several days at home if you cough or sneeze, hold your groin to help prevent bleeding Expect some mild tenderness over the area where the catheter was inserted You will notice this after the local anesthetic (numbing medicine) wears off This should improve during the 24-48 hours after the procedure Take tylenol if needed. Contact your doctor if the discomfort worsens. Problems to Watch For If there is bright red blood flowing from the catheter insertion area *stop what you are doing and lie down *Hold pressure steadily on the area for 15 minutes *Call for Help *lf the bleeding does not stop in 15 minutes call 911 for an ambulance If there is swelling with black and blue color at the catheter insertion area, there may be bleeding inside Contact the doctor if there is any increase in size Look at the insertion site for the first few days at home Signs of infection are *redness *Swelling *Yellow, white, green or brown foul smelling drainage. ???increased soreness If you think there is an infection, take your temperature Then call your doctor The limb on the side where you had your catheterization should look and feel normal in its color, sensation, and temperature. If your leg becomes cool, pale, blue or changing color with numbness and tingling,contact your doctor If you feel faint or dizzy, lie down with your feet elevated Have someone call the doctor If you are alert, drink Fluids How to Deal with Chest pain If you had only the cardiac catheterization, treat any angina or chest discomfort as instructed Stop what you are doing, and sit or he down If prescribed, take nitroglycerin under your tongue If the anginaisn't relieved, take another nitroglycerine in 5 minutes. After another 5 minutes, a third nitroglycerinemay be taken If the angina isn't improved you should call for an ambulance to bring you to the nearest hospital emergency room If your angina is more frequent or more sever than before, contact your doctor We usually would not expect to have angina after an angioplasty If you do get angina, treat it as you did before but also contact your doctor Return to Work The doctor will usually have told you when to return to work If you do not perform heavy physical labor, most people can return to work in a few days Diet Follow your previous diet unless otherwise instructed Cardiac Risk Factors If you have coronary artery disease, it is important that you help control it by reducing your cardiac risk factors If you smoke, we urge you to stop now If you think this is going to be a problem, let us know so that we may help you. We have dieticians who can help you learn about low fat, low cholesterol diet. Cardiac rehabilitation programs can help you set up a regular exercise program. Work with your doctor if you have high blood pressure or sugar diabetes to keep these under control. Medications ____Take your usual medications ____Medication changes: If you are taking medicines prescribed by your doctor, do not take any txxb-dew-lkmzfbu medicines or herbal preparations without first discussing this with your doctor or pharmacist. There is the possibilityof side effect and interactions when these are combined. Follow up Care Who to Call with Questions or Problems If there are any questions or problems that you think might be related to your cardiac cath or angioplasty, contact the car body mechanic software quality automation engineer by calling [facility] at . documented in this encounter Medications at Time of Discharge Medication Sig Dispensed Refills Start Date End Date semaglutide (Ozempic) 0.25 mg or 0.5 mg (2 mg/3 mL) Pen Injector Inject 0.5 mg subcutaneously. glipiZIDE XL (Glucotrol XL) 10 mg Tablet Extended Rel 24 hr TAKE 1 TABLET BY MOUTH ONCE DAILY 05/03/2020 metFORMIN (GLUCOPHAGE) 1,000 mg Tablet TAKE ONE TABLET BY MOUTH TWICE A DAY 04/10/2020 aspirin EC 81 mg EC (DR) tablet Take 81 mg by mouth daily. 03/21/2024 amLODIPine (Norvasc) 5 mg tablet Take 5 mg by mouth 2 times daily. 03/21/2024 clopidogreL (Plavix) 75 mg tablet Take 1 tablet by mouth daily. 90 tablet 3 05/17/2023 03/21/2024 Jardiance 25 mg tablet Take 25 mg by mouth daily. 04/24/2023 03/02/2024 sacubitriL-valsartan (Entresto) 24-26 mg tablet Take by mouth 2 times daily. 03/15/2022 03/21/2024 multivitamin (THERAGRAN) Tablet Take 1 tablet by mouth daily. 03/21/2024 lisinopriL (Prinivil;Zestril) 40 mg Tablet Take 1 tablet by mouth daily. 30 tablet 1 06/20/2020 06/11/2023 metoprolol tartrate (Lopressor) 100 mg Tablet Take 1 tablet by mouth 2 times daily. 60 tablet 1 06/19/2020 03/21/2024 acetaminophen (Tylenol) 500 mg Tablet Take 2 tablets by mouth every 6 hours as needed for Pain. 60 tablet 1 06/19/2020 03/02/2024 dextromethorphan-guaiFE Nesin (Robitussin) 10-100 mg/5 mL Syrup Take 5 mLs by mouth 4 times daily as needed for Cough. 06/19/2020 03/02/2024 amoxicillin (Amoxil) 500 mg Capsule Take 4 capsules by mouth as needed. Take 4 tablets, 2000mg, 1 hour before dental procedures. 06/19/2020 03/21/2024 blood sugar diagnostic strips Strip Twice daily. One touch verio flex ICD 10 E11.9 50 each 06/19/2020 03/21/2024 aspirin 325 mg Tablet Take 325 mg by mouth daily. 06/11/2023 omeprazole (PriLOSEC) 20 mg Capsule, Delayed Release(E.C.) TAKE ONE CAPSULE BY MOUTH EVERY DAY 05/03/2020 03/02/2024 rosuvastatin (Crestor) 40 mg Tablet TAKE ONE TABLET BY MOUTH EVERY DAY 04/12/2020 03/21/2024 documented as of this encounter Progress Notes * Noemi Darling RN - 05/17/2023 6:57 PM EDT DC instructions reviewed with patient and . Medications discussed with patient. No questions orconcerns by patient regarding instructions. Patient agrees to discharge plan. ABCs intact and pt ambulatory to wheelchair. Family to drive pt home. Post anesthesia precautions explained to pt. documented in this encounter H&P Notes * Byron Giraldo - 05/17/2023 1:33 PM EDT Images from the original note were not included. Johnson Tobar is a 72 y.o. male referred for cardiac catheterization for evaluation of exertional angina. There have not been any changes in health status since last seen in clinic. No fevers, no chills, no bleeding. He underwent SAVR and CABG in 2019 (below) and has had 3 months of exertional chest pain relieved with rest. TTE done recently shows normal biv function, nl savr and no other significant findings. Major Procedures/Operations: 06/13/2020 AVR 23 mm Inspriris bioprosthesis CABG/ x 3, MCKEON->LAD, Seq SVG->OM1->D1 Outpatient Medications Marked as Taking for the 05/17/23 encounter (Hospital Encounter) Medication Sig Dispense Refill amLODIPine (Norvasc) 5 mg tablet Take 5 mg by mouth 2 times daily. Jardiance 25 mg tablet Take 25 mg [...] as needed for Pain. 60 tablet 1 aspirin 325 mg Tablet Take 325 mg by mouth daily. glipiZIDE XL (Glucotrol XL) 10 mg Tablet Extended Rel 24 hr TAKE 1 TABLET BY MOUTH ONCE DAILY metFORMIN (GLUCOPHAGE) 1,000 mg Tablet TAKE ONE TABLET BY MOUTH TWICE A DAY omeprazole (PriLOSEC) 20 mg Capsule, Delayed Release(E.C.) TAKE ONE CAPSULE BY MOUTH EVERY DAY rosuvastatin (Crestor) 40 mg Tablet TAKE ONE TABLET BY MOUTH EVERY DAY BP 131/88 (BP Location (NBP): Left arm) Pulse 64 Temp 36.1 ??C (97 ??F) Resp 16 Ht 170.2 cm(5' 7) Wt 79.4 kg (175 lb) SpO2 100% BMI 27.41 kg/m?? Gen: Alert, comfortable appearing, in NAD CV: RRR, no M/R/G appreciated Pulm CTAB Abd soft, nt MSK/SKIN warm, dry Pulses: 2+ bilateral radial pulses, 2+ bilateral femoral pulses, no femoral bruit appreciated, 2+ bilateral DP pulses Labs reviewed and notable for: Lab Results Component Value Date WBC 9.0 05/17/2023 HGB 13.3 (L) 05/17/2023 HCT 41.2 05/17/2023 MCV 81.9 (L) 05/17/2023 PLATELET 167 05/17/2023 Lab Results Component Value Date CREATININE 1.20 05/17/2023 BUN 18 05/17/2023 NA 135 05/17/2023 K 4.5 05/17/2023 CL 99 05/17/2023 CO2 23 05/17/2023 Lab Results Component Value Date INR 1.5 06/13/2020 A/P 72 y.o. male here for cardiac catheterization. - consent signed ASA: 3: Patient with severe systemic disease Mallampati: III: only the base of the uvula can be seen I have personally discussed the procedure, including benefits and risks, with the patient who agrees to proceed. The indications for the catheterization, the expected benefits, and the possible riskswere reviewed in detail with the patient. The potential for , heart attack, stroke, kidney failure, bleeding, allergic reaction, vascular complications and infection were reviewed. The possibility of stenting and other percutaneous interventions, with associated risk, was reviewed. The potential need for emergent coronary artery bypass surgery was reviewed. Alternatives were discussed and the patient's questions were answered in full. Following this discussion, the patient consented to theprocedure and signed a form attesting to this, which is in the chart Byron Giraldo Pager [phone] documented in this encounter Plan of Treatment Upcoming Encounters Date Type Department Care Team (Late st Contact Info) Description 08/27/2024 2:30 PM EST Office [place] [address] Susanna Cm, PATTERN CARRIER [facility] [place] [address] documented as of this encounter Procedures Procedure Name Priority Date/Time Associated Diagnosis Comments POCT GLUCOSE Routine 05/17/2023 5:31 PM EDT CARDIAC CATHETERIZATION Routine 05/17/2023 3:52 PM EDT Screening for cardiovascular condition Aortic valve disease ASCVD (arteriosclerotic cardiovascular disease) Cath Plmt Left Heart Cath & Arts W/Inj & Angio Img S&I ([id number]) 05/17/2023 1:41 PM EDT Screening for cardiovascular condition Aortic valve disease ASCVD (arteriosclerotic cardiovascular disease) EKG 12-LEAD Routine 05/17/2023 12:00 PM EDT Screening for cardiovascular condition Aortic valve disease ASCVD (arteriosclerotic cardiovascular disease) POCT GLUCOSE Routine 05/17/2023 11:57 AM EDT HEMOGRAM Routine 05/17/2023 10:31 AM EDT Screening for cardiovascular condition Aortic valve disease ASCVD (arteriosclerotic cardiovascular disease) DIFFERENTIAL, AUTOMATED Routine 05/17/2023 10:31 AM EDT Screening for cardiovascular condition Aortic valve disease ASCVD (arteriosclerotic cardiovascular disease) CBC (WITH DIFF) Routine 05/17/2023 10:31 AM EDT Screening for cardiovascular condition Aortic valve disease ASCVD (arteriosclerotic cardiovascular disease) BASIC METABOLIC PANEL Routine 05/17/2023 10:31 AM EDT Screening for cardiovascular condition Aortic valve disease ASCVD (arteriosclerotic cardiovascular disease) documented in this encounter Results * POCT Glucose (05/17/2023 5:31 PM EDT) [facility] Signature Glucose, POC 126 65 - 199 mg/dL [facility] Comment: Supplemental ranges: <140 mg/dL before meals <180 mg/dL all other times of the day Blood 05/17/2023 5:31 PM EDT 05/17/2023 5:31 PM EDT Avani Onofre MD POINT [place] [address] * CARDIAC CATHETERIZATION (05/17/2023 3:52 PM EDT) Anatomical Region Laterality Modality Other Narrative 05/18/2023 11:42 AM EDT ?[facility] ? Cardiac Catheterization/Intervention Report ? Patient Name: Ekaterina, Johnson R. ? Procedure Date: 05/17/2023 ? A #: [id number] ? Primary Physician: Avani Danielle I ? Case #: [id number] ? File Name: [id number] ? Catheterization Order Number: [id number] ? [facility] ? Final Report [place], [place] ? Patient Name: ? Johnson R. Ekaterina ? ID#: ?[id number] ? : ?1950 ? Procedure Date: ? May 17, 2023 ? Case #: ? [id number] ? Room: ? 1 ? Case Physician: ? Avani Danielle M.D. ? Start: ?14:15 ?Fellow: ? Max J Kristal, M.D. ? Admission: ??05/17/2023 ?Everett Guthrie M.D. ? Referring Physician: ??Joseph Lackey M.D. ? Procedures: ?* Coronary Angiography ?* Bypass Graft Study ?* Vascular Closure Device Deployment ?* Access Site Angiography ?* Vascular Ultrasound ? History ?Johnson Tobar is a 72 year old man. He has hypertension. The ?patient's smoking status is Never. He has hypercholesterolemia managed by ?diet and lipid therapy. The patient has diabetes managed by diet and oral ?medication. He has a prior history of coronary artery disease. The ?patient had remote coronary artery bypass surgery. He also has a history ?of pulmonary hypertension. Prior to the initiation of this procedure, the ?patient was designated as ASA Class II. The CSHA clinical frailty scale ?is 3: Managing Well. ? Diagnostic Tests: ?Prior Coronary Angiography: ? LV ejection fraction within 6 months is 65%. ?Electrocardiography: ? EKG was assessed by ECG. EKG was Abnormal. EKG showed T-wave ? inversions, ST Deviation >= 0.5 mm and other abnormality. ?Medications Prior to Procedure: ? Aspirin, Beta Estee, Non-Statin and Statin. ? Indications for Diagnostic Cath: ?The priority of the diagnostic procedure was Elective. The indication for ?the laboratory technical specialist visit is new onset angina less than or equal to 2 months. ?Chest pain symptom assessment was: Typical Angina. ? Technique: ?A 6Fr sheath was inserted in the right femoral artery utilizing the ?Seldinger technique. The left coronary artery was injected utilizing a ?6Fr JL 4 catheter. A 6Fr JR 4 catheter was used to inject the right ?coronary artery. The mammary artery was injected utilizing a 5Fr STANLEY ?catheter. A 6Fr JR 4 catheter was used to inject the bypass graft. 9,000 ?units of heparin were administered. A total of 200cc of Omnipaque were ?opened, 150cc of Omnipaque were administered and 50cc of Omnipaque were ?wasted. Radiation: Fluoro time was 33.7 minutes, dose area product was ?74.40 Gy/cm2 and air kerma was 1,154 mGY. See the case log for additional ?details. ?The patient received the following medications prior to and during the ?procedure: ? Unfractionated Heparin and Clopidogrel. ? Hemodynamics: ?Left Heart Pressures ? Resting: ? Syst Diast ? EDP ?a ?v ? m ?Ao 125 ?? 62 ?89 ? Coronary Angiography: ?Dominance: Right ?Left Main ? The left main was normal, free of disease. ?Left Anterior Descending ? There was a 70% long segmental stenosis of the proximal segment of ? the left anterior descending artery (LAD) proximal to the insertion ? of a bypass graft. ??The LAD was large. ??Distal flow was normal and ? was via the [place] vessel and a bypass graft. ? There was a 50% single discrete stenosis of the ostial segment of ? the first diagonal branch (Diagonal 1) of the LAD. ??The Diagonal 1 ? was large. ? There was a 90% long segmental stenosis of the ostial segment of the ? second diagonal branch (Diagonal 2) of the LAD. ??The Diagonal 2 was ? moderate in size. ?Left Circumflex ? There [...] OM1 was large. ??Distal flow was ? decreased and was via a bypass graft. ? There was a 70% single discrete stenosis of the ostial segment of ? the second obtuse marginal branch (OM2) of the LCX. ??The OM2 was ? moderate in size. ?Right Coronary Artery ? There was an 80% calcified long segmental stenosis of the mid ? segment of the right coronary artery (RCA). ??The RCA was large. ? Distal flow was decreased (SUNITA Grade 2) and was via the [place] ? vessel and collaterals from the RCA. ? Bypass Grafts: ?There was a total [...] ?? Saphenous vein graft (Y-Type) to the Diagonal 2/OM1 ? There was a saphenous vein graft of the Y configuration. One limb of ? this graft had anastomoses to the second diagonal branch (Diagonal ? 2) of the LAD and the first obtuse marginal branch (OM1) of the LCX. ? The other limb of the graft had an anastomosis. ? There was a single discrete total occlusion of the ostial portion of ? the segment of this graft between the origin of this graft and the ? bifurcation of the Y graft. ? Vascular Access: ?Vascular Access Angiogram: ? A selective angiogram at the right femoral artery revealed mild ? diffuse disease. ?Vascular Ultrasound: ? Ultrasound of the right femoral artery was used to guide access and ? showed vessel patent with mild disease. ?Vascular Access Management: ? A 6 Fr Perclose was deployed at the right femoral artery access ? site. This device was successful. The right femoral artery access ? was secured in place for monitoring, staged procedure or therapy. ? 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 There are ?L-R collaterals. We were able to wire with a dori black but the lesion ?was balloon and microcatheter uncrossable. Will plan to bring back for ?staged laser vs rota atherectomy as we did reach his contrast limit. ?* The jump SVG to OM1-D1 is occluded at its origin. There is significant ?calcific disease in the ostial and prox LCx as well as severe calcified ?disease in the ostium of the D1. ?* Recommend PCI of the RCA then consideration of further revasc of the ?left system pending symptoms. Optimize medical therapy for stable CAD. ? Complications/Events: ?The patient had no complications during these procedures. ? Post Procedure Fluid Recommendations: ?IV fluid at 238 mL/hr for 4 hours for a total of 952 mL. These ?recommendations are made at the time of the procedure. Patient and ?provider preferences or a changing clinical situation may require ?modification of this regimen. ?The attending physician was present for the entire procedure. ?Dr. Avani Danielle M.D. was present during the moderate sedation ?intraservice time as documented by the sedation nurse. ??Case time = 01:29. ?Dr. Avani Danielle M.D. performed the coronary angiography, bypass graft ?study, access site angiography, vascular ultrasound and vascular closure ?device. ? Avani Danielle M.D. ? Electronically Signed by: Avani Danielle M.D. ? Report Finalized: 05/18/2023 ??11:38 ? Procedure Note Avani Danielle MD - 05/18/2023 [facility] Cardiac Catheterization/Intervention Report Patient Name: Johnson TobarTyra Procedure Date: 05/17/2023 A #: [id number] Primary Physician: Avani Danielle I Case #: [id number] File Name: [id number] Catheterization Order [facility]: [id number] [facility] [place], [place] Patient Name: Johnson Tobar ID#:[id number] :1950 Procedure Date: May 17, 2023 Case #: [id number] Room: 1 Case Physician: Avani Danielle M.D. Start: 14:15 Fellow: Byron Giraldo M.D. Admission:05/17/2023 Everett Guthrie M.D. Referring Physician: Joseph Lackey M.D. Procedures: * Coronary Angiography * Bypass Graft Study * Vascular Closure Device Deployment * Access Site Angiography * Vascular Ultrasound History Johnson Tobar is a 72 year old man. He has hypertension. The patient's smoking status is Never. He has hypercholesterolemiamanaged by diet and lipid therapy. The patient has diabetes managed by diet andoral medication. He has a prior history of coronary artery disease. The patient had remote coronary artery bypass surgery. He also has ahistory of pulmonary hypertension. Prior to the initiation of thisprocedure, the patient was designated as ASA Class II. The [facility] clinical frailtyscale is 3: Managing Well. Diagnostic Tests: Prior Coronary Angiography: LV ejection fraction within 6 months is 65%. Electrocardiography: EKG was assessed by ECG. EKG was Abnormal. EKG showed T-wave inversions, ST Deviation >= 0.5 mm and other abnormality. Medications Prior to Procedure: Aspirin, Beta Estee, Non-Statin and Statin. Indications for Diagnostic Cath: The priority of the diagnostic procedure was Elective. Theindication for the laboratory technical specialist visit is new onset angina less than or equal to 2months. Chest pain symptom assessment was: Typical Angina. Technique: A 6Fr sheath was inserted in the right femoral artery utilizing the Seldinger technique. The left coronary artery was injected utilizinga 6Fr JL 4 catheter. A 6Fr JR 4 catheter was used to inject the right coronary artery. The mammary artery was injected utilizing a 5Fr STANLEY catheter. A 6Fr JR 4 catheter was used to inject the bypass graft.9,000 units of heparin were administered. A total of 200cc of Omnipaquewere opened, 150cc of Omnipaque were administered and 50cc of Omnipaquewere wasted. Radiation: Fluoro time was 33.7 minutes, dose area productwas 74.40 Gy/cm2 and air kerma was 1,154 mGY. See the case log foradditional details. The patient received the following medications prior to and duringthe procedure: Unfractionated Heparin and Clopidogrel. Hemodynamics: Left Heart Pressures Resting: Syst Diast EDP a v m Ao 125 62 89 Coronary Angiography: Dominance: Right Left Main The left main was normal, free of disease. Left Anterior Descending There was a 70% long segmental stenosis of the proximal segmentof the left anterior descending artery (LAD) proximal to theinsertion of a bypass graft. The LAD was large. Distal flow was normaland was via the [place] vessel and a bypass graft. There was a 50% single discrete stenosis of the ostial segmentof the first diagonal branch (Diagonal 1) of the LAD. TheDiagonal 1 was large. There was a 90% long segmental stenosis of the ostial segmentof the second diagonal branch (Diagonal 2) of the LAD. The Diagonal 2was moderate in size. Left Circumflex There was an 85% calcified single discrete stenosis of theostial segment of the left circumflex artery (LCX). The LCX waslarge. There was a single discrete total occlusion of the ostialsegment of the first obtuse marginal branch (OM1) of the LCX proximal tothe insertion of a bypass graft. The OM1 was large. Distal flowwas decreased and was via a bypass graft. There was a 70% single discrete stenosis of the ostial segmentof the second obtuse marginal branch (OM2) of the LCX. The OM2was moderate in size. Right Coronary Artery There was an 80% calcified long segmental stenosis of the mid segment of the right coronary artery (RCA). The RCA was large. Distal flow was decreased (SUNITA Grade 2) and was via the [place] vessel and collaterals from the RCA. Bypass Grafts: There was a total of two bypass grafts evaluated during thisprocedure. 1. Left internal mammary artery graft to the LAD There was a left internal mammary artery graft with a single anastomosis to the left anterior descending artery (LAD). There was no evidence of obstruction in this graft. Distal flowwas normal. 2. Saphenous vein graft (Y-Type) to the Diagonal 2/OM1 There was a saphenous vein graft of the Y configuration. Onelimb of this graft had anastomoses to the second diagonal branch(Diagonal 2) of the LAD and the first obtuse marginal branch (OM1) of theLCX. The other limb of the graft had an anastomosis. There was a single discrete total occlusion of the ostialportion of the segment of this graft between the origin of this graft andthe bifurcation of the Y graft. Vascular Access: Vascular Access Angiogram: A selective angiogram at the right femoral artery revealed mild diffuse disease. Vascular Ultrasound: Ultrasound of the right femoral artery was used to guide accessand showed vessel patent with mild disease. Vascular Access Management: A 6 Fr Perclose was deployed at the right femoral artery access site. This device was successful. The right femoral arteryaccess was secured in place for monitoring, staged procedure ortherapy. 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 Thereare L-R collaterals. We were able to wire with a dori black but thelesion was balloon and microcatheter uncrossable. Will plan to bring backfor staged laser vs rota atherectomy as we did reach his contrast limit. * The jump SVG to OM1-D1 is occluded at its origin. There issignificant calcific disease in the ostial and prox LCx as well as severecalcified disease in the ostium of the D1. * Recommend PCI of the RCA then consideration of further revasc ofthe left system pending symptoms. Optimize medical therapy for stableCAD. Complications/Events: The patient had no complications during these procedures. Post Procedure Fluid Recommendations: IV fluid at 238 mL/hr for 4 hours for a total of 952 mL. These recommendations are made at the time of the procedure. Patient and provider preferences or a changing clinical situation may require modification of this regimen. The attending physician was present for the entire procedure. Danette eMnaD. was present during the moderate sedation intraservice time as documented by the sedation nurse. Case time =01:29. Dr. Avani Danielle M.D. performed the coronary angiography, bypassgraft study, access site angiography, vascular ultrasound and vascularclosure device. Avani Danielle M.D. Electronically Signed by: Avani Danielle M.D. Report Finalized: 05/18/2023 11:38 Avani Onofre MD CARDIAC CATH ORDERA BLES * EKG 12 Lead (05/17/2023 12:00 PM EDT) Ventricular rate 62 BPM MUSE SYSTEM Atrial Rate 62 BPM MUSE SYSTEM P-R Interval 136 ms MUSE SYSTEM QRS Duration 82 ms MUSE SYSTEM Q-T Interval 426 ms MUSE SYSTEM QTC Calculated (Bezet) 432 ms MUSE SYSTEM Calculated P [place] 24 degrees MUSE SYSTEM Calculated R [place] -9 degrees MUSE SYSTEM Calculated T [place] -7 degrees MUSE SYSTEM INTERPRETATION Sinus rhythm with Premature atrial complexes Inferior infarct (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-2020) Abnormal ECG When compared with ECG of 21-JUL-2020 12:50, Premature atrial complexes are now Present T wave inversion no longer evident in Anterolateral leads Confirmed by MD Shannan, Theo Rodriguez ([id number]) on 05/17/2023 3:00:38 PM MUSE SYSTEM 05/17/2023 12:0 0 PM EDT 05/17/2023 3:00 PM EDT Avani Onofre MD ECG ORDERABLES MUSE SYSTEM * POCT Glucose (05/17/2023 11:57 AM EDT) Pathologist [facility] Glucose, POC 122 65 - 199 mg/dL [facility] Comment: Supplemental ranges: <140 mg/dL before meals <180 mg/dL all other times of the day Blood 05/17/2023 11:5 7 AM EDT 05/17/2023 11:57 AM EDT Avani Onofre MD POINT [place] [address] * (ABNORMAL) Differential, Automated (05/17/2023 10:31 AM EDT) Neutrophil % 55.5 % [facility] Neutrophil Absolute 4.98 1.70 - 6.10 x10(3)/mc L [facility] Lymph % 25.6 % [facility] Lymphocytes Abs 2.3 0.9 - 3.2 x10(3)/mc L [facility] Monocyte % 13.4 % [facility] Monocyte Abs 1.2(H) 0.3 - 0.9 x10(3)/mc L [facility] Eos % 4.1 % [facility] Eosinophils Abs 0.4 0.0 - 0.4 x10(3)/ L [facility] Basophil % 1.1 % [facility] Baso Absolute 0.1 0.0 - 0.1 x10(3)/mc L [facility] Immature Gran % 0.30 % [facility] Comment: Immature granulocytes(IG's)percentage and absolute count will include metamyelocytes, myelocytes, and promyelocytes. Blood smears from CBCs yielding IG's will be scanned manually for concordance. If this scan disagrees with the automated IG or if promyelocytes are noted, a manual differential will be performed. Immature Gran Absolute 0.03 0.00 - 0.04 x10(3)/mc L [facility] Blood 05/17/2023 10:3 1 AM EDT 05/17/2023 10:36 AM EDT Narrative Resulting Agency Comment Spec In Lab Johnathan [facility] HEMATOLOG[facility] ORDERABLE S Performing Organization Address City/[facility]/[place] [address] * (ABNORMAL) Hemogram (05/17/2023 10:31 AM EDT) White Blood Cell 9.0 4.0 - 9.5 x10(3)/mc L [facility] Red Blood Cell 5.03 4.58 - 5.54 x10(6)/mc L [facility] Hemoglobin 13.3(L) 13.7 - 16.5 g/dL [facility] Hematocrit 41.2 40.5 - 48.5 % [facility] Mean Cell Volume 81.9(L) 82.9 - 93.1 fL [facility] Mean Cell Hemoglobin 26.4(L) 27.5 - 32.1 pg [facility] Mean Cell Hemoglobin Concentration 32.3 32.0 - 35.7 g/dL [facility] Platelet 167 145 - 357 x10(3)/mc L [facility] RDW Standard Deviation 43.8 36.0 - 45.0 fL [facility] RDW coefficient of variation 14.7(H) 11.4 - 13.8 % [facility] Mean Platelet Volume 11.5 7.6 - 12.9 fL [facility] NRBC% auto 0.0 % [facility] NRBC Absolute 0.000 0.000 - 0.000 x10(3)/ L [facility] Blood 05/17/2023 10:3 1 AM EDT 05/17/2023 10:36 AM EDT Narrative Resulting Agency Comment Spec In Lab Johnathan KISER HEMATOLOGY ORDERABLE S Performing Organization Address City/State/[facility] Co de Phone Number [facility] [address] * Basic Metabolic Panel (non-fasting) (05/17/2023 10:31 AM EDT) Glucose 151 65 - 199 mg/dL [facility] Comment:Diabetes: >=200 mg/d L plus symptoms Blood Urea Nitrogen 18 10 - 20 mg/dL [facility] Creatinine 1.20 0.80 - 1.50 mg/dL [facility] Sodium 135 135 - 145 mmol/L [facility] Potassium 4.5 3.5 - 5.0 mmol/L [facility] Comment: Please note: ??Patients with WBC >100,000 may have falsely elevated Potassium levels. ??For accurate Potassium quantification in these patients send serum separator tube (gold top) for subsequent determinations. ??Contact the Clinical Chemistry Laboratory if there are any questions. Chloride 99 98 - 107 mmol/L [facility] Carbon Dioxide 23 22 - 31 mmol/L [facility] Anion Gap 13 5 - 15 mmol/L [facility] Calcium 9.9 8.5 - 10.5 mg/dL [facility] Est Glomerular Filtration Rate 64 >=60 mL/min/1. 73 m?? [facility] Comment: This patient's estimated GFR was [...] urine creatinine clearance. Assignment of CKD stage 1-5 for patients with an eGFR near the transition point between stages may be based on clinical assessment of muscle mass and symptoms in addition to eGFR. Blood 05/17/2023 10:3 1 AM EDT 05/17/2023 10:35 AM EDT Narrative Resulting Agency Comment Spec In Lab Avani Onofre MD CHEMISTRY ORDERABLE S Performing Organization Address City/State/[facility] Co de Phone Number [facility] [address] documented in this encounter Visit Diagnoses Diagnosis CAD (coronary artery disease)- Primary Coronary atherosclerosis of unspecified type of vessel, [place] or graft Screening for cardiovascular condition Screening for other and unspecified cardiovascular conditions Aortic valve disease Aortic valve disorders ASCVD (arteriosclerotic cardiovascular disease) Unspecified cardiovascular disease Screening for cardiovascular condition Screening for other and unspecified cardiovascular conditions Aortic valve disease Aortic valve disorders ASCVD (arteriosclerotic cardiovascular disease) Unspecified cardiovascular disease documented in this encounter Admitting Diagnoses Diagnosis CAD (coronary artery disease) Coronary atherosclerosis of unspecified type of vessel, [place] or graft documented in this encounter Administered Medications Inactive Administered Medications - up to 3 most recent administrations Medication Order MAR Action Action Date Dose Rate Site sodium chloride 0.9% infusion 200 mL/hr, Intravenous, CONTINUOUS, Starting on Sat05/17/23 at 1630, Until Sat05/17/23 at 1829, Recovery (Recovery-Hospital Unit) New Bag 05/17/2023 4:11 PM EDT 200 mL/hr 200 mL /hr documented in this encounter Active and Recently Administered Medications Times are shown in EDT. Continuous Medication Order 05/15/2023 05/16/2023 05/17/2023 sodium chloride 0.9% infusion 200 mL/hr, Intravenous, CONTINUOUS, Starting on Sat05/17/23 at 1630, Until Sat05/17/23 at 1829, Recovery (Recovery-Hospital Unit) 1611 (New Bag - Prov ider: Jose Buckley RN) PRN Medication Order 05/15/2023 05/16/2023 05/17/2023 aspirin chewable tablet (CANCELED) PRN, Starting on Sat05/17/23 at 1359, Until Sat05/17/23 at 1546, Intra-Operative (Intra-Procedure), Routine 1359 (Given - Provid er: Traci Mancera RN) clopidogreL (Plavix) tablet (CANCELED) PRN, Starting on Sat05/17/23 at 1458, Until Sat05/17/23 at 1546, Intra-Operative (Intra-Procedure), Routine 1458 (Given - Provid er: Traci Mancera RN) fentaNYL (pf) (50 mcg/mL) multi-dose injection (CANCELED) PRN, Starting on Sat05/17/23 at 1406, Until Sat05/17/23 at 1546, Intra-Operative (Intra-Procedure), Routine 1406 (Given - Provid er: Traci Mancera RN)1421 (Given - Provider: Traci Mancera RN)1540 (Given - Provider: Traci Mancera RN) heparin (porcine) (1,000 units/mL) injection (CANCELED) PRN, Starting on Sat05/17/23 at 1447, Until Sat05/17/23 at 1546, Intra-Operative (Intra-Procedure), Routine 1447 (Given - Provid er: Traci Mancera RN)1459 (Given - Provider: Traci Mancera RN)1515 (Given - Provider: Traci Mancera RN) iohexoL (Omnipaque) (350 mg/mL) solution (CANCELED) PRN, Starting on Sat05/17/23 at 1541, Until Sat05/17/23 at 1546, Intra-Operative (Intra-Procedure), Routine 1541 (Given - Provid er: Avani Onofre MD) midazolam (pf) (Versed) (1 mg/mL) multi-dose injection (CANCELED) PRN, Starting on Sat05/17/23 at 1406, Until Sat05/17/23 at 1546, Intra-Operative (Intra-Procedure), Routine 1406 (Given - Provid er: Traci Mancera, MOISES)1421 (Given - Provider: Traci Mancera RN) documented in this encounter Care Teams Branch Lending Manager Relationship Specialty Start Date End Date Ramiro Ball MD [address] [place] [id number] PCP - General 06/06/10 02/17/24 documented as of this encounter
--- OUTSIDE RECORDS SUMMARY | 2024-03-26 15:52 | XMS_ITS | Encounter Summary ---
Author Organization Formerly [facility] [place] [address] Care Team Providers Care Compensation And Benefits Administrator Name Role Phone Tamia Tsai Primary Care Provider [phone] Reason for Visit * Auth/Cert (Routine) Specialty Diagnoses / Procedures Referred By Luca t Referred To Contact Diagnoses NSTEMI (non-ST elevated myocardial infarction) NSTEMI Procedures ER Mauricio Hein MD [facility] [address] [place] [address] [facility] Referral ID Status Reason Start Date Expiration Date Visits Re quested Visits Authorized [id number] 1 1 Encounter Details Date Type Department Care Team (Late st Contact Info) Description 02/24/2024 11:00 AM EDT - 02/24/2024 12:00 PM EDT Surgery [place] [address] Zara Dc MD [facility] [place] [address] [place] [address] CARDIAC CATHETERIZATION Social History Tobacco Use Types Packs/Day Years Used Date Smoking Tobacco: Never Smokeless Tobacco: Never Alcohol Use Standard Drinks/Week Comments Not Currently 0 (1 standard drink = 0.6 oz pur e alcohol) [facility] Utilities Answer Date Recorded In the past [...] any time in the past 12 m [facility], were you homeless or living in a usp (including now)? No 02/24/2024 DH IPV Inpatient [...] Sign Reading Time Taken Comments Blood Pressure 139/77 02/24/2024 11:19 AM EDT Pulse 83 02/24/2024 11:19 AM EDT Temperature 36.8 ??C (98.3 ??F) 02/24/2024 7:38 AM ED T Respiratory Rate 18 02/24/2024 11:1 9 AM EDT Oxygen Saturation 98% 02/24/2024 11: 19 AM EDT Inhaled Oxygen Concentration - - Weight 75.2 kg (165 lb 11.2 oz) 02/24/2024 3:51 AM EDT Height 170.2 cm (5' 7) 02/23/2024 8:40 PM EDT Body Mass Index 25.21 02/23/2024 8:40 PM EDT documented in this encounter Discharge Summaries * Jerome Amezquita PA - 03/02/2024 12:36 PM EDT Discharge Summary Patient Name: Johnson Tobar Patient Age: 73 y.o. Language: Kinyarwanda Admit date: 02/23/2024 Discharge date and time: [...] on discharge: Daily Healthy Menu Choices/Cardiac diet ([facility]Diet) 60/60/75 CHO counting level2 -monitor for resolution [...] Discharge Diagnoses: Active Hospital Problems Diagnosis R LITIGATION ASSISTANT occlusion and infarction associated with cardiac catheterization, [...] Earlier today, he was taken to the cath laboratory technician, though no intervention required. In recovery, pt started to have slurred speech and left hemiparesis, Stroke Alert called. NIHSS 16 (LOC 1, Gaze 1, VF 1, Face 1, LUE 3, LLE 3, Sensory 2, Dysarthria 1, Language 1). CT/CTA showed R LITIGATION ASSISTANT occlusion and severe R ICA stenosis; decision [...] adjacent thalamus infarctions. Vascular imaging showed Right LITIGATION ASSISTANT occlusion (distal P2 segment), severe right ICA [...] Calculated (Bezet) ms 439 459 Calculated P [place] degrees 59 35 Calculated R [place] degrees -8 -2 Calculated T [place] degrees 0 -43 INTERPRETATION Normal sinus rhythm Possible Left atrial enlargement Inferior infarct (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-2020) Borderline ST depression Lateral leads Abnormal ECG When compared with ECG of 26-JUN-2023 13:17, No significant change was found I personally reviewed the tracing and edited the fellows interpretation Confirmed by fellow MD Sunshine, Carl ([id number]) on 02/24/2024 10:56:50 AM Confirmed by MD Darrick, Marshal ([id number]) on 02/25/2024 5:56:17 AM Normal sinus [...] who have questions please contact the health personal care worker that requested your imaging first. Electronically signedby: Theo Garcia MD, [facility] ([phone]), at 02/28/2024 12:[address] Head wo Contrast (Generic) Result Date: 02/24/2024 1. 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 2. Severe right [...] who have questions please contact the health personal care worker that requested your imaging first. Electronically signed by: Kingston Dukes MD, [facility] ([phone]), at 02/24/2024 2:49PM MRA Head and Neck No results found. MRI [...] patientswho have questions please contact the health personal care worker that requested your imaging first. Carotids/[place] No results found. TTE Interpretation [...] with a DEBORAH if clinically indicated. Procedure Complete-[id number]. Image enhancement Optison was used for left [...] Anticipated Discharge Disposition (OT): acute rehabilitation facility HUMANE AGENT: Diagnosis: Baseline speech and swallow function Vital Signs at Discharge: BP: 119/68, Heart Rate: 73, Temp: 36.9 ??C (98.4 ??F), Resp: 16, BMI (Calculated): 26.48 Height: 170.2 cm (5' 7) (02/23/240) Weight: 73 kg (160 lb 15 oz) [...] 30mcg (12Yrs+) 05/02/2022 Moderna Covid-19 Monovalent 12Yr+ (Sql Server Dba Developer 100mcg) 09/15/2020, 10/13/2020 Discharge Medications: Your Medications [...] stroke, and education on stroke follow-up. Modified Carmine Score (MRS) on discharge Score Description 0 [...] Provider: RASHEL Do [address] / [facility] [address] Discharge References/Attachments None documented in this encounter Discharge Instructions * Patient Instructions* Jerome Amezquita PA - 03/02/2024 12:11 PM EDT Images from the original note were not included. Patient Instructions: You were admitted to the neurology service at [facility] Your Diagnosis: Stroke, NSTEMI - Work [...] follow-up appointment in the neurology clinic at [facility]. See below for the appointment time. [...] may be billed similar to a regular zihw-ma-csji clinic visit. Primary Care Provider: Please follow up with your Primary Care Provider within one to 2 weeks of discharge. For questions regarding this document or issues relating to this hospitalization on the Neurology Service, please contact the author(s) of this discharge summary through the [facility] Sleeve Setter Lockstitch . If you need to cancel or reschedule, please call Dept: [phone] as soon as possible. This is helpful to us and other waiting patients. IF FOLLOW UP VISIT WITH STROKE TEAM IS NEEDED IN FORM OF TELEHEALTH: Please ensure you have an active [employer] account and are familiar with it. Also, please ensure an active email address. To sign up for a [facility]-H account, Visit the [email or web address] website and 1) choose ???create an account?? [...] created. If you need technical assistance call [phone] Saturday through Saturday, 7:30 am to 5:00 pm If you plan to join your [facility] Video Visit using your personal smartphone or tablet, prior to joining your visit you will need to download the Zoom daniel from the Daniel Store (for iPhone/iPad) or Gymtrack (for Android). Ifyou already have Zoom downloaded on your device for personal use, you???re good to go! 1. Open the Daniel Store or Gymtrack Store on your device. 2. Search for Zoom and download the CraigsBlueBook Cherry Meetings daniel. ? Daniel Store Link: https://Synosure Games.Ludesi/us/daniel/mycf-mwhsl-dilozidp/[email or web address] ? Gymtrack Link: https://[employer] Technologies/store/apps/details?id=us.zoom.videomeetings If you plan to join your [facility] Video Visit using your computer or [...] the link to connect to your visit withinyoAkanoo portal. 1. Sign into your Repeatit account. 2. Select Appointments. 3. Select your [facility]-H Video Visit and tap Begin Visit. 4. [...] Starting 30 minutes prior to your scheduled [facility] Video Visit, you will find the link to connect tothe visit within your Repeatit portal. 1. Sign into your Repeatit account (Repeatit portal link: [email or web address]/). 2. On the top of the webpage, hover over Visits and select Appointments and Visits. 3. Click the Details button next to your [facility] visit. 4. Click the Begin [...] facility. [facility] Packet was given to to handoff [...] Earlier today, he was taken to the cath laboratory technician, though no intervention required. After procedure, patient [...] ANGIOPLASTY WITH STENT PLACEMENT 1997 PRG CATH PLOR LEFT HEART CATH & ARTS W/INJ & ANGIO IMG S&I N/A 05/17/2023 CORONARY ANGIOGRAPHY; W [facility],POSSIBLE PCI (WRVU 5.6) performed by Avani Danielle MD at [facility] CATHLABS PRG CATH PLOR LEFT HEART CATH & ARTS W/INJ & ANGIO IMG S&I N/A 06/26/2023 CORONARY ANGIOGRAPHY; W [facility],POSSIBLE PCI (WRVU 5.6) performed by Avani Danielle MD at [facility] CATHLABS PRO CABG, ARTERIAL, SINGLE Left 06/13/2020 @CABG, USING ARTERIAL GRAFT;SINGLE ARTERIAL GRAFT (WRVU 33.75) performed by Chun Wiley MD at [facility] MAIN OR PRO CABG, ARTERY-VEIN, TWO N/A 06/13/2020 @CABG, TWO VENOUS GRAFTS & ARTERIAL GRAFT (WRVU 7.93) performed by Chun Wiley MD at [facility] MAIN OR PRO ENDOSCOPY W/VIDEO-ASST VEIN HARVEST, CABG Right 06/13/2020 ENDOSCOPIC HARVEST VEIN(S) FOR CABG (WRVU 0.31) performed by Chun Wiley MD at [facility] MAIN OR PRO PERC TRLUML CORONARY STENT W/ANGIO ADDL ART/BRANCH N/A 06/26/2023 STENT PLACEMENT-EACH ADDITIONAL BRANCH OF A MAJOR CORONARY ARTERY (WRVU *) performed by Avani Danielle MD at [facility] CATH LABS PRO PERC TRLUML CORONARY STENT W/ANGIO ONE ART/BRANCH N/A 06/26/2023 STENT PLACEMENT-SINGLE MAJOR CORONARY ARTERY OR BRANCH (WRVU 10.96) performed by Avani Danielle MD at [facility] CATH LABS PRO REPLACEMENT PROSTHETIC AORTIC VALVE OPEN W CARDIOPULMONARY BYPASS HOMOGRF/STENT N/A 06/13/2020 @REPLACE AORTIC VALVE, OPEN, W\CPB, W\PROSTHETIC VALVE (WRVU 41.32) performed by Chun Wiley MD at [facility] MAIN OR Social History: Home set-up: Pt [...] the patient. Total Minutes, Physical Therapy: 30 ([phone] 2 x tef) Kd Naik PTA Pager: [phone] Physical Therapy Inpatient Rehabilitation Department * Mihaela [...] Earlier today, he was taken to the cath laboratory technician, though no intervention required. After procedure, patient [...] 2-4 times/wk Total Minutes, Occupational Therapy: 18 ([facility] x1 ([phone])) Pager: [phone] Mihaela Coker OT 03/02/2024 Occupational Therapy Rehabilitation Department * Devon Lorenz - 03/02/2024 10:53 AM EDT Office of Care Management/Pruner Patient Name: Johnson Tobar : 1950 Patient has been offered an acute rehab bed at [facility] for today, 03/02/24 Patient will transport to facility via private car around 1300 No MD to MD report necessary Dr. Rao to admit Please call Nursing Report to [phone], ask for flash oven operator. Info to accompany patient: Copies of Medication Administration Records and IV sheets for past 10 days. Plan: Pruner will be available to the patient and Optical Brightener Maker Helper-RN and/or Social Workerfor further assistance. Patient will be discharged to: [facility] Devon Lorenz Pruner * Yaya Hunter MD - 03/02/2024 6:49 AM EDT Images from the original note were not included. VASCULAR NEUROLOGY PROGRESS NOTE Admit Date 02/23/2024 Responsible Attending: Kd Huggins MD Primary Provider: RASHEL Do [phone] Hospital Day: Hospital Day: 9 Patient ID [...] hemibody weakness. Found to have acute right LITIGATION ASSISTANT infarct. 24-hr Events: -Patient feels well this [...] 8.3 (H) 02/24/2024 ASSESSMENT & PLAN Johnson Maribel Bojorquezx 73 y.o. male with PMHx of ASCVD s/p CABG x 3 (MCKEON --> LAD, SVG --> OM1 --> D1) and RCA PCI (06/2023), severe s/p AVR (05/2020), DM2, HTN, HLD who initially presented on02/22 with chest pressure and light-headedness concerning for ACS, found to have dysarthria and lefthemiparesis and an acute distal R LITIGATION ASSISTANT occlusion s/p tPA. Most likely etiology clara-procedural. 03/02/24 Patient remains neurologically stable. He continues on DAPT with aspirin and Plavix, as well as high intensity statin and Zetia for secondary stroke risk reduction. Hyponatremia remains stable and continues to improve. Patient remains medically ready for discharge and is pending insurance authorization for acute patient rehab at [facility]. Anticipate discharge to rehab today. 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 #History severe right ICA stenosis #Moderate to severe right intradural VA stenosis - neuro checks/VS Q4 - Continue Aspirin 81mg daily, Plavix 75mg daily (will likely be on DAPT through 06/2023 per cardiology) - Continue rosuvastatin 40 mg - PT/OT/HUMANE AGENT #NSTEMI s/p cardiac catherization w/o intervention 02/23 [...] nebs PRN #GI - - follow up HUMANE AGENT recs - Daily Healthy Menu Choices/Cardiac diet ([facility]-Diet) 60/60/75 CHO counting level 2 - maintain bowel reg - Protonix 40mg # Other - Activity: as tolerated - Dispo: Acute patient rehab, [facility] pending insurance auth - Last BM: Last [...] Please page Vascular Neurology with any questions, #[phone] Department of Neurology [place] [phone] Associated attestation - Kd Huggins MD - [...] Linsey Esquivel Urgency Level: FYI Callback Number: [phone] The following Message was sent: [FYI] - Callback:[id number] [id number] ekaterina: pt here 7 days and awaiting placement. can VS and NC be q6wa? - Linsey Esquivel The following status was returned from the client server programmer: Page for [phone] successfully sent to [phone] [...] and begin next steps. * Susanna Cm, FOOTWEAR SALES LEADER - 03/01/2024 8:05 AM EDT Images from the original note were not included. VASCULAR NEUROLOGY PROGRESS NOTE Admit Date 02/23/2024 Responsible Attending: Kd Huggins MD Primary Provider: RASHEL Do [phone] Hospital Day: Hospital Day: 8 Patient ID [...] hemibody weakness. Found to have acute right LITIGATION ASSISTANT infarct. 24hr Events: -NAEON, VSS, afebrile -Hyponatremia [...] 150 152 175 138 182 Recent Labs 03/01/2436 02/29/24 0552 02/28/24 0533 02/27/2430 02/26/24 0004 CALCIUM 9.6 9.3 8.9 9.0 8.9 MAGNESIUM -- -- 0.67* 0.63* 0.79 No results for input(s): AST, ALT, ALKPHOS, BILITOT, BILIDIR, LDH in the last 168 hours. No results for input(s): TROPONINT, CK in the last 168 hours. No results for input(s): PHART, HUP2XGU, PO2ART, AQC1NAG in the last 168 hours. No results [...] pneumonia or pneumonitis. ASSESSMENT & PLAN Johnson Bojorquezx 73 y.o. male with PMHx of ASCVD s/p CABG x 3 (MCKEON --> LAD, SVG --> OM1 --> D1) and RCA PCI (06/2023), severe s/p AVR (05/2020), DM2, HTN, HLD who initially presented on02/22 with chest pressure and light-headedness concerning for ACS, now with dysarthria and left hemiparesis found to have acute distal R LITIGATION ASSISTANT occlusion s/p tPA. Most likely etiology clara-procedural. 03/01/24 Patient remains neurologically stable. He continues on DAPT with aspirin and Plavix and high intensity statin and Zetia for secondary stroke risk reduction. Hyponatremia remains stable and continues to improve. Patient remains medically ready for discharge and is pending insurance authorization foracute patient rehab at [facility]. 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 #History severe right ICA stenosis #Moderate to severe right intradural VA stenosis - neuro checks/VS Q4 - Continue Aspirin 81mg daily, Plavix 75mg daily - Continue rosuvastatin 40 mg - PT/OT/HUMANE AGENT #NSTEMI s/p cardiac catherization w/o intervention 02/23 [...] nebs PRN #GI - - follow up HUMANE AGENT recs - Daily Healthy Menu Choices/Cardiac diet ([facility]Diet) 60/60/75 CHO counting level 2 - maintain [...] Please page Vascular Neurology with any questions, #[phone] Susanna Cm APR[place] [address] * Dotty Burns RN - 02/29/2024 6:19 PM EDT Page Confirmation To Pager number: [phone] From Submitter: Dotty Burns Urgency Level: FYI The following Message was sent: [FYI] - 503B Ekaterina; pt has had large volume watery stool foul, want sample? - Dotty Burns The following status was returned from the client server programmer: Page for [phone] successfully sent to [phone] having status of Available. * Raleighgilma Ussanna T, FOOTWEAR SALES LEADER - 02/29/2024 8:23 AM EDT Images from the original note were not included. VASCULAR NEUROLOGY PROGRESS NOTE Admit Date 02/23/2024 Responsible Attending: Kd Huggins MD Primary Provider: RASHEL Do [phone] Hospital Day: Hospital Day: 7 Patient ID [...] hemibody weakness. Found to have acute right LITIGATION ASSISTANT infarct. 24hr Events: -NAEON, VSS, afebrile -Stable [...] 0552 02/28/24 0533 02/27/24 0630 02/26/24 0004 CALCIUM 9.3 8.9 9.0 8.9 MAGNESIUM -- 0.67* 0.63* 0.79 No results for input(s): AST, ALT, ALKPHOS, BILITOT, BILIDIR, LDH in the last 168 hours. No results for input(s): TROPONINT, CK in the last 168 hours. No results for input(s): PHART, OTD4AOD, PO2ART, SFB2DSY in the last 168 hours. No results [...] hemiparesis found to have acute distal R LITIGATION ASSISTANT occlusion s/p tPA. Most likely etiology clara-procedural. 02/29/24 Patient remains neurologically stable. He continues on DAPT with aspirin and Plavix and high intensity statin and Zetia for secondary stroke risk reduction. Continues to have hyponatremia. Will startsalt tablets and recommend adding salt to food. Patient remains medically ready for discharge and is pending insurance authorization for acute patient rehab at [facility]. 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 #History severe right ICA stenosis #Moderate to severe right intradural VA stenosis - neuro checks/VS Q4 - Continue Aspirin 81mg daily, Plavix 75mg daily - Continue rosuvastatin 40 mg - PT/OT/HUMANE AGENT #NSTEMI s/p cardiac catherization w/o intervention 02/23 [...] nebs PRN #GI - - follow up HUMANE AGENT recs - Daily Healthy Menu Choices/Cardiac diet ([facility]Diet) 60/60/75 CHO counting level 2 - maintain [...] Please page Vascular Neurology with any questions, #[phone] Susanna Cm APRN [place] [address] Associated attestation - Kd Huggins MD - [...] BP Temp Temp src Pulse Resp SpO2 08/17/24 2032 132/71 37.1 ??C (98.8 ??F) Oral -- [...] of lab /radiology/other tests * Kd Naik, SENIOR NET SOFTWARE DEVELOPER - 02/28/2024 3:39 PM EDT Physical Therapy [...] Earlier today, he was taken to the cath laboratory technician, though no intervention required. After procedure, patient [...] ANGIOPLASTY WITH STENT PLACEMENT 1997 PRG CATH [facility] LEFT HEART CATH & ARTS W/INJ & ANGIO IMG S&I N/A 05/17/2023 CORONARY ANGIOGRAPHY; W [facility],POSSIBLE PCI (WRVU 5.6) performed by Avani Danielle MD at [facility] CATHLABS PRG CATH PLOR LEFT HEART CATH & ARTS W/INJ & ANGIO IMG S&I N/A 06/26/2023 CORONARY ANGIOGRAPHY; W [facility],POSSIBLE PCI (WRVU 5.6) performed by Avani Danielle MD at [facility] CATHLABS PRO CABG, ARTERIAL, SINGLE Left 06/13/2020 @CABG, USING ARTERIAL GRAFT;SINGLE ARTERIAL GRAFT (WRVU 33.75) performed by Chun Wiley MD at [facility] MAIN OR PRO CABG, ARTERY-VEIN, TWO N/A 06/13/2020 @CABG, TWO VENOUS GRAFTS & ARTERIAL GRAFT (WRVU 7.93) performed by Chun Wiley MD at [facility] MAIN OR PRO ENDOSCOPY W/VIDEO-ASST VEIN HARVEST, CABG Right 06/13/2020 ENDOSCOPIC HARVEST VEIN(S) FOR CABG (WRVU 0.31) performed by Chun Wiley MD at [facility] MAIN OR PRO PERC TRLUML CORONARY STENT W/ANGIO ADDL ART/BRANCH N/A 06/26/2023 STENT PLACEMENT-EACH ADDITIONAL BRANCH OF A MAJOR CORONARY ARTERY (WRVU *) performed by Avani Danielle MD at [facility] CATH LABS PRO PERC TRLUML CORONARY STENT W/ANGIO ONE ART/BRANCH N/A 06/26/2023 STENT PLACEMENT-SINGLE MAJOR CORONARY ARTERY OR BRANCH (WRVU 10.96) performed by Aavni Danielle MD at [facility] CATH LABS PRO REPLACEMENT PROSTHETIC AORTIC VALVE OPEN W CARDIOPULMONARY BYPASS HOMOGRF/STENT N/A 06/13/2020 @REPLACE AORTIC VALVE, OPEN, W\CPB, W\PROSTHETIC VALVE (WRVU 41.32) performed by Chun Wiley MD at [facility] MAIN OR Social History: Home set-up: Pt [...] meal times as able. Interval History: from [facility] Neuro note: - Patient reports that he [...] Bed Mobility: Supine to sit: min a bakery sales clerk Sit to Supine: nt Transfers: Sit to [...] the patient. Total Minutes, Physical Therapy: 50 ([phone] 3 x tef) Kd Naik, SENIOR NET SOFTWARE DEVELOPER Pager: [phone] Physical Therapy Inpatient Rehabilitation Department * Carl Martínez RN - 02/28/2024 9:56 AM EDT Page Sent Successfully Page Confirmation To Pager number: [phone] From Submitter: Carl Martínez Urgency Level: FYI The following Message was sent: [FYI] - 503a; is the dixon staying in today? - Carl Martínez The following status was returned from the client server programmer: Page for [phone] successfully sent to [phone] [...] Earlier today, he was taken to the cath laboratory technician, though no intervention required. After procedure, patient [...] Occupational Therapy: 33 (SCHM X1 TEF x1 ([phone])) Pager: [phone] Mihaela Coker, OT 02/28/2024 Occupational Therapy Rehabilitation Department * Yaya Hunter MD - 02/28/2024 7:07 AM EDT Images from the original note were not included. VASCULAR NEUROLOGY PROGRESS NOTE Admit Date 02/23/2024 Responsible Attending: Kd Huggins MD Primary Provider: RASHEL Do [phone] Hospital Day: Hospital Day: 6 Patient ID [...] hemibody weakness. Found to have acute right LITIGATION ASSISTANT infarct. 24hr Events: - Patient reports that [...] asymmetry recognized MOTOR- RUE/RLE: 5/ LUE: mild drift LLE: mild drift SENSATION [...] 168 hours. No results for input(s): PHART, DZR3OHG, PO2ART, OVW8CFA in the last 168 hours. No results [...] hemiparesis found to have acute distal R LITIGATION ASSISTANT occlusion s/p tPA versus clara-procedural stroke. 02/28/24 Patient remains neurologically stable. Etiology unclear, possibly clara- procedural in setting of cath procedure. We plan to continue DAPT for at least 90 days for carotid stenosis per [facility], as well as high intensity statin and Zetia. Patient remains medically ready at this time and awaiting placement at [facility]. 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 #History severe right ICA stenosis #Moderate to severe right intradural VA stenosis - neuro checks/VS Q4 - Continue Aspirin 81mg daily, Plavix 75mg daily (will continue for 90 days at least, will defer tocardiology outpatient about DAPT past 90 days) - Continue rosuvastatin 40 mg - PT/OT/HUMANE AGENT #NSTEMI s/p cardiac catherization w/o intervention 02/23 [...] nebs PRN #GI - - follow up HUMANE AGENT recs - Daily Healthy Menu Choices/Cardiac diet ([facility]Diet) 60/60/75 CHO counting level 2 - maintain [...] Please page Vascular Neurology with any questions, #[phone] Associated attestation - Kd Huggins MD - [...] The following status was returned from the client server programmer: Page for [phone] successfully sent to [phone] [...] Earlier today, he was taken to the cath laboratory technician, though no intervention required. After procedure, patient [...] Current Diet: Daily Healthy Menu Choices/Cardiac diet ([facility]-Diet) 60/60/75 CHO counting level 2 Feeding and [...] Bolus Presentation(s) Tested Comments Thin liquids x [place] thick liquids Honey thick liquids Pureed solids [...] Patient, Family educated on role of the HUMANE AGENT and findings and plan of care. Patient [...] aspiration pneumonia Do not anticipate need from HUMANE AGENT services in discharge location. Speech Therapy Goals: (To be met by discharge) Pt will maintain hydration / nutrition with optimal safety and efficiency. MET Monitor for further acute changes in speech or swallow during hospitalization MET Plan: Therapy Frequency (HUMANE AGENT Eval): other (see comments) No further HUMANE AGENT needs identified. Pt./family are in agreement with treatment plan. 10 min session. Thank you for this consult with this patient. Please feel free to page me with any questions or concerns. Rachel Saenz MA, CCC-HUMANE AGENT Pager: [phone] Speech-Language Pathology Inpatient Rehabilitation Medicine * Carl Marítnez RN - 02/27/2024 10:31 AM EDT Page Sent Successfully Page Confirmation To Pager number: [phone] From Submitter: Carl Martínez Urgency Level: FYI The following Message was sent: [FYI] - 503a; tele order expires @ 1500 today, also no BM since Saturday & no prn ordered - Carl Martínez The following status was returned from the client server programmer: Page for [phone] successfully sent to [phone] having status of Available. * Yaya Hunter MD - 02/27/2024 9:23 AM EDT Images from the original note were not included. VASCULAR NEUROLOGY PROGRESS NOTE Admit Date 02/23/2024 Responsible Attending: Kd Huggins MD Primary Provider: RASHEL Do [phone] Hospital Day: Hospital Day: 5 Patient ID [...] Earlier today, he was taken to the cath laboratory technician, though no intervention required. After procedure, patient [...] [phone] 137 Recent Labs 02/27/24 0630 02/26/24 0004 02/25/24 1312 02/25/24 0106 CALCIUM 9.0 8.9 9.4 9.4 MAGNESIUM 0.63* 0.79 -- 0.63* No results for input(s): AST, ALT, ALKPHOS, BILITOT, BILIDIR, LDH in the last 168 hours. No results for input(s): TROPONINT, CK in the last 168 hours. No results for input(s): PHART, XXF4QWB, PO2ART, KPN7CFH in the last 168 hours. Recent Labs [...] territorial abnormality identified. ASSESSMENT & PLAN Johnsonfernanda Foxeux 73 y.o. male with PMHx ASCVD s/p CABG x 3 (MCKEON --> LAD, SVG --> OM1 -->D1) and RCA PCI (06/2023), severe s/p AVR (05/2020), DM2, HTN, HLD who initially presented on 02/22 with chest pressure and light-headedness concerning for ACS, now with dysarthria and left hemiparesis found to have acute distal R LITIGATION ASSISTANT occlusion now in the setting of severe [...] at this time and awaiting placement at [facility]. #Acute LITIGATION ASSISTANT infarct #Infarcts of posterior right temporal lobe [...] nebs PRN #GI - - follow up HUMANE AGENT recs - Daily Healthy Menu Choices/Cardiac diet ([facility]-Diet) 60/60/75 CHO counting level 2 - maintain [...] Please page Vascular Neurology with any questions, #[phone] Associated attestation - Kd Huggins MD - [...] Earlier today, he was taken to the cath laboratory technician, though no intervention required. After procedure, patient [...] ANGIOPLASTY WITH STENT PLACEMENT 1997 [facility] LEFT HEART CATH & ARTS W/INJ & ANGIO IMG S&I N/A 05/17/2023 CORONARY ANGIOGRAPHY; W [facility],POSSIBLE PCI (WRVU 5.6) performed by Avani Danielle MD at [facility] CATHLABS PRG CATH PLMT LEFT HEART CATH & ARTS W/INJ & ANGIO IMG S&I N/A 06/26/2023 CORONARY ANGIOGRAPHY; W [facility],POSSIBLE PCI (WRVU 5.6) performed by Avani Danielle MD at [facility] CATHLABS PRO CABG, ARTERIAL, SINGLE Left 06/13/2020 @CABG, USING ARTERIAL GRAFT;SINGLE ARTERIAL GRAFT (WRVU 33.75) performed by Chun Wiley MD at [facility] MAIN OR PRO CABG, ARTERY-VEIN, TWO N/A 06/13/2020 @CABG, TWO VENOUS GRAFTS & ARTERIAL GRAFT (WRVU 7.93) performed by Chun Wiley MD at [facility] MAIN OR PRO ENDOSCOPY W/VIDEO-ASST VEIN HARVEST, CABG Right 06/13/2020 ENDOSCOPIC HARVEST VEIN(S) FOR CABG (WRVU 0.31) performed by Chun Wiley MD at [facility] MAIN OR PRO PERC TRLUML CORONARY STENT W/ANGIO ADDL ART/BRANCH N/A 06/26/2023 STENT PLACEMENT-EACH ADDITIONAL BRANCH OF A MAJOR CORONARY ARTERY (WRVU *) performed by Avani Danielle MD at [facility] CATH LABS PRO PERC TRLUML CORONARY STENT W/ANGIO ONE ART/BRANCH N/A 06/26/2023 STENT PLACEMENT-SINGLE MAJOR CORONARY ARTERY OR BRANCH (WRVU 10.96) performed by Avani Danielle MD at [facility] CATH LABS PRO REPLACEMENT PROSTHETIC AORTIC VALVE OPEN W CARDIOPULMONARY BYPASS HOMOGRF/STENT N/A 06/13/2020 @REPLACE AORTIC VALVE, OPEN, W\CPB, W\PROSTHETIC VALVE (WRVU 41.32) performed by Chun Wiley MD at [facility] MAIN OR Social History: Home set-up: Pt [...] with concern for ACS and taken to cath laboratory technician. No intervention was required, and after cath laboratory technician patient was found to have RIGHT gaze [...] outlined inthis evaluation. Time IN / OUT: 2460-0343 Total Minutes, Physical Therapy: 29 Billing Code: mod complexity eval Beronica Marte PT, DPT, NCS Pager: [phone] Physical Therapy Inpatient Rehabilitation Department * Raquel Mims OT - 02/26/2024 11:12 AM EDT [...] Earlier today, he was taken to the cath laboratory technician, though no intervention required. After procedure, patient [...] ANGIOPLASTY WITH STENT PLACEMENT 1997 [facility] CATH [facility] LEFT HEART CATH & ARTS W/INJ & ANGIO IMG S&I N/A 05/17/2023 CORONARY ANGIOGRAPHY; W [facility],POSSIBLE PCI (WRVU 5.6) performed by Avani Danielle MD at [facility] CATHLABS PRG CATH PLOR LEFT HEART CATH & ARTS W/INJ & ANGIO IMG S&I N/A 06/26/2023 CORONARY ANGIOGRAPHY; W [facility],POSSIBLE PCI (WRVU 5.6) performed by Avani Danielle MD at [facility] CATHLABS PRO CABG, ARTERIAL, SINGLE Left 06/13/2020 @CABG, USING ARTERIAL GRAFT;SINGLE ARTERIAL GRAFT (WRVU 33.75) performed by Chun Wiley MD at [facility] MAIN OR PRO CABG, ARTERY-VEIN, TWO N/A 06/13/2020 @CABG, TWO VENOUS GRAFTS & ARTERIAL GRAFT (WRVU 7.93) performed by Chun Wiley MD at [facility] MAIN OR PRO ENDOSCOPY W/VIDEO-ASST VEIN HARVEST, CABG Right 06/13/2020 ENDOSCOPIC HARVEST VEIN(S) FOR CABG (WRVU 0.31) performed by Chun Wiley MD at [facility] MAIN OR PRO PERC TRLUML CORONARY STENT W/ANGIO ADDL ART/BRANCH N/A 06/26/2023 STENT PLACEMENT-EACH ADDITIONAL BRANCH OF A MAJOR CORONARY ARTERY (WRVU *) performed by Avani Danielle MD at [facility] CATH LABS PRO PERC TRLUML CORONARY STENT W/ANGIO ONE ART/BRANCH N/A 06/26/2023 STENT PLACEMENT-SINGLE MAJOR CORONARY ARTERY OR BRANCH (WRVU 10.96) performed by Avani Danielle MD at [facility] CATH LABS PRO REPLACEMENT PROSTHETIC AORTIC VALVE OPEN W CARDIOPULMONARY BYPASS HOMOGRF/STENT N/A 06/13/2020 @REPLACE AORTIC VALVE, OPEN, W\CPB, W\PROSTHETIC VALVE (WRVU 41.32) performed by Chun Wiley MD at [facility] MAIN OR Social History: Home set-up: Pt [...] intensive acute rehab with OT, PT, and HUMANE AGENT to maximize independence and safety. Pt would [...] No other consults recommended at this time EP Level 5: Ambulate, Participate in self care [...] minutes Thank you for this consult. Shahida Mims OT Pager: [phone] * Rachel Saenz, HUMANE AGENT - 02/26/2024 9:59 AM EDT Speech Therapy [...] Earlier today, he was taken to the cath laboratory technician, though no intervention required. After procedure, patient noted to have RIGHT gaze preference, dysarthria, left tongue deviation, and LEFT hemibody weakness. Transferred to NCCU s/p TPA. Prior Level of Swallow Function: WNL Subjective: Alert, sitting up in bed finishing regular breakfast tray. present and supportive.Pt denies having any further speech or swallowing issues this AM. My speech is fine, I'm just [place]. Objective: Pt seen for evaluation today. Pain: Patient in no acute observed discomfort. Respiratory Status: Room air saturating at 98%. Vision: Functional for evaluation, not formally assessed Hearing: Functional for evaluation Current Diet: Daily Healthy Menu Choices/Cardiac diet ([facility]-Diet) 60/60/75 CHO counting level 2 Feeding and Oral Care: Pt is independent Cognitive-Linguistic Status: Baseline cognition Orientation Log Score: 30/30 Positioning: HOB at 80 degrees Oral Motor Exam: WFL Impaired Comments STRUCTURES Facial Symmetry x Lips x Tongue x Jaw x Palate/Velum x Dentition x OTHER Phonation x Intelligibility x Volitional Cough x Sensation x Secretion Management x Bolus Presentation(s) Tested Comments Thin liquids x [place] thick liquids Honey thick liquids Pureed solids [...] Patient, Family educated on role of the HUMANE AGENT and findings and plan of care. Patient status, treatment and swallow recommendations were discussed with nursing. Assessment: Pt w/ reported visual disturbance, facial weakness, dysarthria and hemiparesis on 02/25/24 s/p cath laboratory technician. TPA given. This AM pt's oral motor [...] aspiration pneumonia Do not anticipate need from HUMANE AGENT services in discharge location. Speech Therapy Goals: (To be met by discharge) Pt will maintain hydration / nutrition with optimal safety and efficiency. NEW Monitor for further acute changes in speech or swallow during hospitalization NEW Plan: Therapy Frequency (HUMANE AGENT Eval): 1-3 times/wk Pt./family are in agreement with treatment plan. Total Minutes (Speech Language Pathology): 20 Thank you for this consult with this patient. Please feel free to page me with any questions or concerns. Rachel Saenz MA, [facility]-HUMANE AGENT Pager: [phone] Speech-Language Pathology Inpatient Rehabilitation Medicine * Yaya Hunter MD - 02/26/2024 7:34 AM EDT Images from the original note were not included. VASCULAR NEUROLOGY PROGRESS NOTE Admit Date 02/23/2024 Responsible Attending: Arti Griffin MD Primary Provider: RASHEL Do [phone] Hospital Day: Hospital Day: 4 Patient ID [...] Earlier today, he was taken to the cath laboratory technician, though no intervention required. After procedure, patient [...] 168 hours. No results for input(s): PHART, VCX0YIE, PO2ART, LAU5NHL in the last 168 hours. Recent Labs 02/24/24 1325 02/24/24 0302 INR 1.1 1.1 Lipid Panel Lab Results Component Value Date CHLPL 91 02/24/2024 HDL 32 02/24/2024 TRIG 122 02/24/2024 LDLCHOL 37 02/24/2024 Lab Results Component Value Date HA1C 8.3 (H) 02/24/2024 Micro - cultures/sensitivities UCx - None CSF - None Blood Cx - None Resp Cx - None Imaging/EKG [facility] 02/25/2024: IMPRESSION No acute intracranial hemorrhage, mass [...] hemiparesis found to have acute distal R LITIGATION ASSISTANT occlusion now in the setting of severe R ICA stenosis s/p tPA. 02/26/24 Patient remains neurologically stable. Etiology possibly due to hypotension/hypoperfusion during cardiac cath from right ICA stenosis versus symptomatic ICA stenosis. Continue DAPT with aspirin and plavix and high intensity statin and Zetia. Patient is also pending PT/OT evaluation at this time. #Acute LITIGATION ASSISTANT infarct #Infarcts of posterior right temporal lobe [...] nebs PRN #GI - - follow up HUMANE AGENT recs - Daily Healthy Menu Choices/Cardiac diet ([facility]-Diet) 60/60/75 CHO counting level 2 - maintain [...] Please page Vascular Neurology with any questions, #[phone] Susanna Cm APRN [place] [address] Associated attestation - Kd Huggins MD - 02/26/2024 10:22 PM EDT Neurology Staff Note I have reviewed the resident's history during the visit and I agree with the details as written. Myphysical examination confirms the resident's findings. The assessment and plan were formulated in discussion with me at the time of the visit and I agree with them as documented. Reviewed imaging including the LITIGATION ASSISTANT occlusion. Discussed with Cardiology Cont with DAPT for now and eventually have Cardiology decide if > 90d needed We updated his in the room. Their son is taking care of the haying at the farm now. * Christine Deal RD - 02/25/2024 3:45 PM EDT Nutrition Consult [...] Orders Diet Daily Healthy Menu Choices/Cardiac diet ([facility]-Diet) 60/60/75 CHO counting level 2 Frequency: Effective [...] encounter: 73 kg (160 lb 15 oz). [place] Body Weight (IBW) (kg): 67.27 Usual Body [...] Performed: Not indicated. Malnutrition Diagnosis: Not identified (Carlito, JPEN J Parenteral Enteral Nutr. 2011; 36(3): [...] deficit noted at that time Posted for [facility] today Post procedure developed Left sided weakness, appeared confused, with right gaze preference, Strokealert was called CTB and CTA with severe LITIGATION ASSISTANT stenosis, Right ICA stenosis and Moderate-severe rightintradural [...] He is alert. Lab Comments: Recent Labs 02/24/24 1331 02/24/24 0302 02/23/247 WBC 4.94 5.20 5.78 HGB 10.5* 11.3* 11.7* HCT 30.7* 33.2* 34.5* PLATELET 172 151 158 Recent Labs 02/24/24 1325 INR 1.1 Recent Labs 02/24/24 1331 02/24/24 0302 02/23/24 2137 NA 126* 131* 129* K 4.2 4.0 4.0 CL 95* 96* 94* CO2 20* 19* 20* BUN 11 12 14 CREATININE 1.05 0.95 1.00 No results for input(s): AST, ALT, ALKPHOS, BILITOT, BILIDIR in the last 168 hours. Recent Labs 02/24/24 1331 02/24/24 0302 02/23/242136 CALCIUM 8.7 9.7 9.6 MAGNESIUM -- 0.44* 0.43* Recent Labs 02/24/24 0302 02/23/247 TROPONINTHS 141* 161* TTE: Interpretation Summary Technically [...] 06/2023, niddm2, HTN, HLD who presented to [facility] with chest pressure and lightheadeness and has been transferred to [facility] for further management for NSTEMI s/p cath [...] of active stroke #Acute right-sided stroke? #R LITIGATION ASSISTANT occlusion # Severe right ICA occlusion # [...] Arti Griffin MD Primary Provider: RASHEL Do [phone] Hospital Day: Hospital Day: 3 Patient ID [...] Earlier today, he was taken to the cath laboratory technician, though no intervention required. After procedure, patient [...] [Urine:1810] Labs Recent Labs 02/25/2410502/24/24 1331 02/24/24 0302 02/23/242136 WBC 5.55 4.94 5.20 5.78 HGB 10.9* 10.5* 11.3* 11.7* HCT 31.6* 30.7* 33.2* 34.5* PLATELET 173 172 151 158 NEUTROABS 3.95 3.38 3.74 4.24 Recent Labs 02/25/24 01002/24/24 1331 02/24/24 0302 02/23/242136 NA 130* 126* 131* 129* K 4.3 [...] 168 hours. No results for input(s): PHART, VUG5EMU, PO2ART, QXZ3ITY in the last 168 hours. Recent Labs [...] territorial abnormality identified. ASSESSMENT & PLAN Johnsonfernanda Foxeux 73 y.o. male with PMHx ASCVD s/p CABG x 3 (MCKEON --> LAD, SVG --> OM1 -->D1) and RCA PCI (06/2023), severe s/p AVR (05/2020), DM2, HTN, HLD who initially presented on 02/22 with chest pressure and light-headedness concerning for ACS, now with dysarthria and left hemiparesis found to have acute distal R LITIGATION ASSISTANT occlusion now in the setting of severe [...] nebs PRN #GI - - follow up HUMANE AGENT recs - Daily Healthy Menu Choices/Cardiac diet ([facility]-Diet) 60/60/75 CHO counting level 2 - maintain [...] Please page Vascular Neurology with any questions, #[phone] Susanna Cm APRN [place] [address] Neurology Attending Attestation Patient accepted in transfer [...] of two midnights or is on the [facility] inpatient only procedure list (status C) due [...] Arti Griffin MD Vascular Neurology * Marina Schmitz APRN - 02/24/2024 1:37 PM EDT NEUROCRITICAL CARE [...] Earlier today, he was taken to the cath laboratory technician, though no intervention required. In recovery, pt started to have slurred speech and left hemiparesis, Stroke Alert called. NIHSS 16 (LOC 1, Gaze 1, VF 1, Face 1, LUE 3, LLE 3, Sensory 2, Dysarthria 1, Language 1). CT/CTA showed R LITIGATION ASSISTANT occlusion and severe R ICA stenosis; decision [...] Date CORONARY ANGIOPLASTY WITH STENT PLACEMENT 1997 [facility] CATH [facility] LEFT HEART CATH & ARTS W/INJ & ANGIO IMG S&I N/A 05/17/2023 CORONARY ANGIOGRAPHY; W [facility],POSSIBLE PCI (WRVU 5.6) performed by [facility]vani [facility] MD [facility] LEFT HEART CATH & ARTS W/INJ & ANGIO IMG S&I N/A 06/26/2023 CORONARY ANGIOGRAPHY; W [facility],POSSIBLE PCI (WRVU 5.6) performed by Avani Danielle MD at [facility] CATHLABS PRO CABG, ARTERIAL, SINGLE Left 06/13/2020 @CABG, USING ARTERIAL GRAFT;SINGLE ARTERIAL GRAFT (WRVU 33.75) performed by Chun Wiley MD at [facility] MAIN OR PRO CABG, ARTERY-VEIN, TWO N/A 06/13/2020 @CABG, TWO VENOUS GRAFTS & ARTERIAL GRAFT (WRVU 7.93) performed by Chun Wiley MD at [facility] MAIN OR PRO ENDOSCOPY W/VIDEO-ASST VEIN HARVEST, CABG Right 06/13/2020 ENDOSCOPIC HARVEST VEIN(S) FOR CABG (WRVU 0.31) performed by Chun Wiley MD at [facility] MAIN OR PRO PERC TRLUML CORONARY STENT W/ANGIO ADDL ART/BRANCH N/A 06/26/2023 STENT PLACEMENT-EACH ADDITIONAL BRANCH OF A MAJOR CORONARY ARTERY (WRVU *) performed by Avani Danielle MD at [facility] CATH LABS PRO PERC TRLUML CORONARY STENT W/ANGIO ONE ART/BRANCH N/A 06/26/2023 STENT PLACEMENT-SINGLE MAJOR CORONARY ARTERY OR BRANCH (WRVU 10.96) performed by Avani Danielle MD at [facility] CATH LABS PRO REPLACEMENT PROSTHETIC AORTIC VALVE OPEN W CARDIOPULMONARY BYPASS HOMOGRF/STENT N/A 06/13/2020 @REPLACE AORTIC VALVE, OPEN, W\CPB, W\PROSTHETIC VALVE (WRVU 41.32) performed by Chun Wiley MD at [facility] MAIN OR Social History Tobacco Use Smoking [...] Head/Neck Multiphase (Thrombectomy Protocol) Impression 1. 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 2. Severe right ICA origin stenosis. 3. Moderate-severe right intradural vertebral artery stenosis. 4. No intracranial hemorrhage. Electronically signed by: Kingston Dukes MD, [facility] ([phone]), at 02/24/2024 2:49 PM EKG: Results for orders placed or performed during the hospital encounter of 02/23/24 EKG 12 Lead Result Value Ref Range Ventricular rate 84 BPM Atrial Rate 84 BPM P-R Interval 124 ms QRS Duration 80 ms Q-T Interval 372 ms QTC Calculated (Bezet) 439 ms Calculated P [place] 59 degrees Calculated R [place] -8 degrees Calculated T [place] 0 degrees INTERPRETATION Normal sinus rhythm Possible [...] inattention CEREBELLUM: no nystagmus GROIN SITE: R YACHT MASTER site still bleeding despite femostop NIH Stroke [...] hemiparesis found to have acute distal R LITIGATION ASSISTANT occlusion now in the setting ofsevere R ICA stenosis s/p tPA. # Neuro- - neuro checks, VS as per thrombectomy protocol x 24h - HOB > 30 deg - obtain MRI brain wo to eval stroke burden - NCHCT 24h post-tPA to evaluate for any hemorrhage - PT/OT eval and treat - femostop to R YACHT MASTER site per protocol # CV - - [...] Attempt Cardiopulmonary Resuscitation - Inpatient Dispo: NCCU Marina Schmitz APRN Neurocritical Care, [id number] * Mauricio [...] 06/2023, niddm2, HTN, HLD who presented to [facility] with chest pressure and lightheadeness and has been transferred to [facility] for further management. The patient has a [...] CABG. He went to the ED at [facility]. At [facility], by the time the ED physician interviewed [...] started on heparin gtt and transferred to [facility]. On arrival at [facility], the pateint is chest pain free. His vitals are stable. Family hx: Father of [place] in his 40s. Social: lives with . [...] ANGIOPLASTY WITH STENT PLACEMENT 1997 PRG CATH PLOR LEFT HEART CATH & ARTS W/INJ & ANGIO IMG S&I N/A 05/17/2023 CORONARY ANGIOGRAPHY; W [facility],POSSIBLE PCI (WRVU 5.6) performed by Avani Danielle MD at [facility] CATHLABS PRG CATH PLOR LEFT HEART CATH & ARTS W/INJ & ANGIO IMG S&I N/A 06/26/2023 CORONARY ANGIOGRAPHY; W [facility],POSSIBLE PCI (WRVU 5.6) performed by Avani Danielle MD at [facility] CATHLABS PRO CABG, ARTERIAL, SINGLE Left 06/13/2020 @CABG, USING ARTERIAL GRAFT;SINGLE ARTERIAL GRAFT (WRVU 33.75) performed by Chun Wiley MD at [facility] MAIN OR PRO CABG, ARTERY-VEIN, TWO N/A 06/13/2020 @CABG, TWO VENOUS GRAFTS & ARTERIAL GRAFT (WRVU 7.93) performed by Chun Wiley MD at [facility] MAIN OR PRO ENDOSCOPY W/VIDEO-ASST VEIN HARVEST, CABG Right 06/13/2020 ENDOSCOPIC HARVEST VEIN(S) FOR CABG (WRVU 0.31) performed by Chun Wiley MD at [facility] MAIN OR PRO PERC TRLUML CORONARY STENT W/ANGIO ADDL ART/BRANCH N/A 06/26/2023 STENT PLACEMENT-EACH ADDITIONAL BRANCH OF A MAJOR CORONARY ARTERY (WRVU *) performed by Avani Danielle MD at [facility] CATH LABS PRO PERC TRLUML CORONARY STENT W/ANGIO ONE ART/BRANCH N/A 06/26/2023 STENT PLACEMENT-SINGLE MAJOR CORONARY ARTERY OR BRANCH (WRVU 10.96) performed by Avani Danielle MD at [facility] CATH LABS PRO REPLACEMENT PROSTHETIC AORTIC VALVE OPEN W CARDIOPULMONARY BYPASS HOMOGRF/STENT N/A 06/13/2020 @REPLACE AORTIC VALVE, OPEN, W\CPB, W\PROSTHETIC VALVE (WRVU 41.32) performed by Chun Wiley MD at [facility] MAIN OR Significant Family History: No family [...] present. Extremities: No lower ext edema. Skin: [place] and warm. Neurologic: Awake, alert, oriented x [...] 06/2023, niddm2, HTN, HLD who presented to [facility] with chest pressure and lightheadeness and has been transferred to [facility] for further management. #NSTEMI The patient suspected [...] if hypotensive / cardiogenic shock / inferior ND / sildenafil within past 24 hours) - [...] PM EDTAssociated Order(s): EEG CONTINUOUS MONITORING INPATIENT [facility] Department of Neurology Inpatient Continuous Video EEG Report Name of the Patient: Johnson Tobar Date of : 1950 Patient Location: [facility] Date of Service: 02/24/2024 Referring physician: Reading Fellow: Josias Hyman MD Reading Attending: Initial [...] Earlier today, he was taken to the cath laboratory technician, though no intervention required. In recovery, pt [...] EKG. Video was recorded during the session. ART MUSEUM AIDE'S REPORT: Performed by: AT At the onset [...] MD PGY-6 Clinical Instructor - Epilepsy Fellow [facility] Epilepsy Program Department of Neurology 02/25/2024 * [...] & Follow-up Care: Contact information for follow-up [address] [address] Transportation: family or friend will provide Wheelchair [...] MEDICARE Payor: [employer] MANAGED MEDICARE / Plan: P MANAGED MEDICARE [...] No Patient is insured through: Primary Insurance: P MANAGED MEDICARE Payor: [facility] MANAGED MEDICARE / Plan: [facility] MANAGED MEDICARE / Product Type: *No [...] to: discuss discharge planning needs. provide the [facility], Office of Care Management letter from the [employer] pertaining to rehab referrals. provide a letter describing our affiliations within the [facility] and educate about their right to choose where referrals are sent. provide the [facility] Star Quality Rating handout. review the different levels of rehab including SNF, swing, and acute. provide a list of facilities within their preferred geographic area. request that they provide at least three choices for referral. They have requested referrals to: [facility] Acute Rehabilitation and Sub-Acute (Swing) Rehab Levels of Care [address] [place] [address] Does patient have COVID vaccine card: No Note routed to a Pruner who will communicate referrals to facilities and provide any required information. Transportation: TBD Barriers to discharge: None Plan going forward: Met with pt and spouse, they [place] and [facility]. Referrals placed. Care Management [...] Goal: Optimal Cognitive Function 02/26/2024 1045 by Liil Tineo RN Outcome: [...] Goal: Effective Urinary Elimination 02/26/2024 1045 by Lili Tineo RN [...] arrived to NCCU s/p stroke alert/stroke in cath laboratory technician; patient received TPA, see life safety note [...] Program STROKE ALERT Called to see Johnson Maribel Tobar who is a 73 y.o.male by [...] Assessment: Stroke Alert called at 12:43 in Movement Therapist, Anesthesia had given Versed 1mg IV and [...] at bedside and agreed. TPA bolus began [id number] and TPA infusion started at 1421. Vitals [...] Earlier today, he was taken to the cath laboratory technician, though no intervention required. After procedure, patient [...] - Out: 400 [Urine:400] Recent Labs 02/24/24 0302 02/23/242136 WBC 5.20 5.78 HGB 11.3* 11.7* HCT 33.2* 34.5* PLATELET 151 158 NEUTROABS 3.74 4.24 Recent Labs 02/24/2430102/23/24 2137 NA 131* 129* K 4.0 4.0 CL 96* 94* CO2 19* 20* BUN 12 14 CREATININE 0.95 1.00 GLUCOSE 88 126 Recent Labs 02/24/2430102/23/242136 CALCIUM 9.7 9.6 MAGNESIUM 0.44* 0.43* No results for input(s): AST, ALT, ALKPHOS, BILITOT, BILIDIR, LDH in the last 168 hours. No results for input(s): TROPONINT, CK in the last 168 hours. No results for input(s): PHART, HPL5PKA, PO2ART, MLB2MSV in the last 168 hours. No results for input(s): INR in the last 72 hours. Lipid Panel Recent Labs 02/24/24301 HA1C 8.3* Diagnostic Tests and Imaging: CTA Multiphase 02/24/2024 IMPRESSION 1. 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 2. Severe right [...] concerning for acute stroke. CTA demonstrated right LITIGATION ASSISTANT occlusion, severe right ICA origin stenosis, and [...] hA1C -Tele Please page Vascular Neurology at #[phone] with any questions. Susanna Cm APR[place] [address] Neurology Attending Attestation I evaluated the patient [...] 06/2023, niddm2, HTN, HLD who [facility] with [facility] pressure and lightheadeness [facility] Last COVID test: Lab Results Component Value Date COVID19 Not Detected 06/10/2020 Present on Admission: NSTEMI (non-ST elevated myocardial infarction) Daily Update: 02/23: [facility] today and d/c tomorrow or next day Surgery: 02/23: [facility] today Hospitalizations Within the Past 30 Days: no previous admission in last 30 days Patient receiving hospital care under Inpatient status. Admission order reviewed. Health/Prescription Coverage: Primary Insurance: [employer] Payor: [employer] / Plan: [employer] / Product Type: *No Product type* / Secondary Insurance: N/A ; Prescription Coverage: Yes Preferred Pharmacy: [id number] - [place], [place] - [address] [facility] [address] [facility] [address] Advance Care Planning: Attempt Cardiopulmonary Resuscitation - Inpatient <no information> -Advanced Directive: No, need to discuss (SDM:Emili Tobar (Spouse)) Current Functional Ability: Assistive Person Functional Status Prior to Admission: Independent Home Environment: Others in the home: spouse. Current Living Arrangements: home/apartment/condo. Accessibility Concerns:Lives with spouse No DME 2 levels to home 4 EARLE Bed upstairs Bath downstairs. Current DME: none [facility] [place] [address] Social & Family Supports: All names listed below confirmed with patient as current and correct Extended Emergency Contact Information Primary Emergency Contact: Emili Tobar Address: [address] [place] [address] [address] [facility] Mobile Relation: Spouse Secondary Emergency Contact: Ilda [...] via car when medically ready. Registered Nurse Optical Brightener Maker Helper / [employer]er will continue to follow patient???s progress and remain available if situation changes for coordination of care, psychosocial support and/or discharge planning. Office of Care Management Phillip Bernabe RN RN/CM - Cellphone: [phone] Pager: [phone] Covering Service RN/CM documented in this encounter Plan of Treatment Upcoming Encounters Date Type Department Care Team (Late st Contact Info) Description 08/27/2024 2:30 PM EST [place] [address] Susanna Cm APRN [facility] [place] [address] Scheduled Referrals Name Type Priority Associated Diagnoses [...] type, unspecified whether angina present, unspecified whether [place] or transplanted heart POC, GLUCOSE Routine 02/24/2024 [...] type, unspecified whether angina present, unspecified whether [place] or transplanted heart POC, GLUCOSE Routine 02/23/2024 [...] - 199 mg/dL 03/02/2024 12:13 PM EDT [facility] Comment:Supplemental ranges: <140 mg/dL before meals <180 mg/dL all other times of the day. Blood CAPILLARY BLOOD / Unknown 03/02/2024 12:13 PM EDT 03/02/2024 12:14 PM EDT Kd Huggins MD POINT OF CARE TEST ORDERABLES [facility] [place] [address] * POC, GLUCOSE (03/02/2024 7:19 AM EDT) Glucometer, POC 156 65 - 199 mg/dL 03/02/2024 7:19 AM EDT [facility] Comment:Supplemental ranges: <140 mg/dL before meals <180 mg/dL all other times of the day. Blood CAPILLARY BLOOD / Unknown 03/02/2024 7:19 AM EDT 03/02/2024 7:19 AM EDT Kd Huggins MD POINT OF CARE TEST ORDERABLES [facility] [place] [address] * (ABNORMAL) CBC (with Diff) (03/02/2024 5:58 AM EDT) White Blood Cell 5.41 4.00 - 9.50 x10(3)/mc L 03/02/2024 6:35 AM EDT [facility] Red Blood Cell 3.61(L) 4.58 - 5.54 x10(6)/mc L 03/02/2024 6:35 AM EDT [facility] Hemoglobin 10.0(L) 13.7 - 16.5 g/dL 03/02/2024 6:35 AM EDT [facility] Hematocrit 28.9(L) 40.5 - 48.5 % 03/02/2024 6:35 AM EDT [facility] Mean Cell Volume 80.1(L) 82.9 - 93.1 fL 03/02/2024 6:35 AM EDT [facility] Mean Cell Hemoglobin 27.7 27.5 - 32.1 pg 03/02/2024 6:35 AM EDT [facility] Mean Cell Hemoglobin Concentration 34.6 32.0 - 35.7 g/dL 03/02/2024 6:35 AM EDT [facility] Platelet 253 145 - 357 x10(3)/mc L 03/02/2024 6:35 AM EDT [facility] Mean Platelet Volume 10.1 7.6 - 12.9 fL 03/02/2024 6:35 AM EDT [facility] RDW Standard Deviation 44.9 36.0 - 45.0 fL 03/02/2024 6:[facility] R[facility] coefficient of variation 15.3(H) 11.4 - 13.8 % 03/02/2024 6:35 AM [facility] NRBC% auto 0.0 % 03/02/2024 6:35 AM [facility] NRBC Absolute 0.00 0.00 - 0.00 x10(3)/mc L 03/02/2024 6:35 AM [facility] Neutrophil % 67.0 % 03/02/2024 6:35 AM [facility] Neutrophil Absolute (ANC) - Automated 3.62 1.70 - 6.10 x10(3)/mc L 03/02/2024 6:35 AM [facility] Lymph % 14.2 % 03/02/2024 6:35 AM [facility] Lymph Absolute 0.77(L) 0.90 - 3.20 x10(3)/mc L 03/02/2024 6:35 AM [facility] Monocyte % 14.4 % 03/02/2024 6:35 AM [facility] Monocyte Absolute 0.78 0.30 - 0.90 x10(3)/mc L 03/02/2024 6:35 AM [facility] Eos % 2.8 % 03/02/2024 6:35 AM [facility] Eos Absolute 0.15 0.00 - 0.40 x10(3)/mc L 03/02/2024 6:35 AM [facility] Basophil % 0.9 % 03/02/2024 6:35 AM [facility] Baso Absolute 0.05 0.00 - 0.10 x10(3)/mc L 03/02/2024 6:35 AM [facility] Immature Gran % 0.7 % 6:35 AM [facility] Immature Gran Absolute 0.04 0.00 - 0.04 x10(3)/mc L 03/02/2024 6:35 AM [facility] Blood VENOUS BLOOD SPECIMEN / Unknown IP Care Team Draw / Unknown 03/02/2024 5:58 AM EDT 03/02/2024 6:20 AM EDT Kd Huggins MD HEMATOLOGY ORDERAB LES [facility] [place] [address] * (ABNORMAL) Basic Metabolic Panel (03/02/2024 5:58 AM EDT) Glucose 159 65 - 199 mg/dL 03/02/2024 6:55 AM EDT [facility] Comment:Glucose Concentratio n >=200 mg/dL plus symptoms is consistent with Diabetes Mellitus. Blood Urea Nitrogen 12 10 - 20 mg/dL 03/02/2024 6:55 AM EDT [facility] Creatinine 0.96 0.80 - 1.50 mg/dL 03/02/2024 6:55 AM EDT [facility] Sodium 127(L) 135 - 145 mMol/L 03/02/2024 6:55 AM EDT [facility] Potassium 4.4 3.5 - 5.0 mMol/L 03/02/2024 6:55 AM EDT [facility] Chloride 96(L) 98 - 107 mMol/L 03/02/2024 6:55 AM [facility] Carbon Dioxide 19(L) 22 - 31 mMol/L 03/02/2024 6:55 AM EDT [facility] Anion Gap 12 5 - 15 mMol/L 03/02/2024 6:55 AM T [facility] Calcium 9.5 8.5 - 10.5 mg/dL 03/02/2024 6:55 AM EDT [facility] Est Glomerular Filtration Rate - Male 83 mL/min/1. 73 m?? 03/02/2024 6:55 [facility] Comment: This patient's estimated [...] APRN CHEMISTRY ORDERABLE S Performing Organization Address City/[facility]/ZIP Co de Phone Number [facility] [place] [address] * POC, GLUCOSE (03/01/2024 8:24 PM EDT) Glucometer, POC 185 65 - 199 mg/dL 03/01/2024 8:24 PM EDT [facility] Comment:Supplemental ranges: <140 mg/dL before meals <180 mg/dL all other times of the day. Blood CAPILLARY BLOOD / Unknown 03/01/2024 8:24 PM EDT 03/01/2024 8:25 PM EDT Kd Huggins MD POINT OF CARE TEST ORDERABLES [facility] [place] [address] * POC, GLUCOSE (03/01/2024 4:27 PM EDT) Glucometer, POC 143 65 - 199 mg/dL 03/01/2024 4:27 PM EDT [facility] Comment:Supplemental ranges: <140 mg/dL before meals <180 mg/dL all other times of the day. Blood CAPILLARY BLOOD / Unknown 03/01/2024 4:27 PM EDT 03/01/2024 4:27 PM EDT Kd Huggins MD POINT OF CARE TEST ORDERABLES Performing Organization Address City/[facility]/ZIP Co de Phone Number [facility] [place] [address] * POC, GLUCOSE (03/01/2024 11:33 AM EDT) Glucometer, POC 187 65 - 199 mg/dL 03/01/2024 11:33 AM EDT [facility] Comment:Supplemental ranges: <140 mg/dL before meals <180 mg/dL all other times of the day. Blood CAPILLARY BLOOD / Unknown 03/01/2024 11:33 AM EDT 03/01/2024 11:33 AM EDT Kd Huggins MD POINT OF CARE TEST ORDERABLES Performing Organization Address [facility] Co de Phone Number [facility] [place] [address] * POC, GLUCOSE (03/01/2024 7:11 AM EDT) Glucometer, POC 164 65 - 199 mg/dL 03/01/2024 7:11 AM EDT [facility] Comment:Supplemental ranges: <140 mg/dL before meals <180 mg/dL all other times of the day. Blood CAPILLARY BLOOD / Unknown 03/01/2024 7:11 AM EDT 03/01/2024 7:11 AM EDT Kd Huggins MD POINT OF CARE TEST ORDERABLES Performing Organization Address City/[facility]/ZIP Co de Phone Number [facility] [place] [address] * (ABNORMAL) Basic Metabolic Panel (03/01/2024 5:36 AM EDT) Glucose 150 65 - 199 mg/dL 03/01/2024 6:26 AM EDT [facility] Comment:Glucose Concentratio n >=200 mg/dL plus symptoms is consistent with Diabetes Mellitus. Blood Urea Nitrogen 13 10 - 20 mg/dL 03/01/2024 6:26 AM [facility] Creatinine 0.88 0.80 - 1.50 mg/dL 03/01/2024 6:26 AM [facility] Sodium 128(L) 135 - 145 mMol/L 03/01/2024 6:26 AM [facility] Potassium 4.5 3.5 - 5.0 mMol/L 03/01/2024 6:26 AM [facility] Chloride 95(L) 98 - 107 mMol/L 03/01/2024 6:26 AM [facility] Carbon Dioxide 19(L) 22 - 31 mMol/L 03/01/2024 6:26 AM [facility] Anion Gap 14 5 - 15 mMol/L 03/01/2024 6:26 AM [facility] Calcium 9.6 8.5 - 10.5 mg/dL 03/01/2024 6:26 AM [facility] Est Glomerular Filtration Rate - Male 90 mL/min/1. 73 m?? 03/01/2024 6:26 AM [facility] Comment: This patient's estimated GFR was [...] EDT 03/01/2024 5:51 AM EDT Susanna Cm FOOTWEAR SALES LEADER CHEMISTRY ORDERABLE S [facility] [place] [address] * POC, GLUCOSE (02/29/2024 8:32 PM EDT) Glucometer, POC 171 65 - 199 mg/dL 02/29/2024 8:33 PM EDT [facility] Comment:Supplemental ranges: <140 mg/dL before meals <180 mg/dL all other times of the day. Blood CAPILLARY BLOOD / Unknown 02/29/2024 8:32 PM EDT 02/29/2024 8:33 PM EDT Kd Huggins MD POINT OF CARE TEST ORDERABLES Performing Organization Address City/[facility]/ZIP Co de Phone Number [facility] [place] [address] * POC, GLUCOSE (02/29/2024 4:26 PM EDT) Glucometer, POC 105 65 - 199 mg/dL 02/29/2024 4:26 PM EDT [facility] Comment:Supplemental ranges: <140 mg/dL before meals <180 mg/dL all other times of the day. Blood CAPILLARY BLOOD / Unknown 02/29/2024 4:26 PM EDT 02/29/2024 4:26 PM EDT Kd Huggins MD POINT OF CARE TEST ORDERABLES Performing Organization Address City/[facility]/ZIP Co de Phone Number [facility] [place] [address] * (ABNORMAL) POC, GLUCOSE (02/29/2024 11:51 AM EDT) Glucometer, POC 232(H) 65 - 199 mg/dL 02/29/2024 11:51 AM EDT [facility] Comment:Supplemental ranges: <140 mg/dL before meals <180 mg/dL all other times of the day. Blood CAPILLARY BLOOD / Unknown 02/29/2024 11:51 AM EDT 02/29/2024 11:51 AM EDT Kd Huggins MD POINT OF CARE TEST ORDERABLES Performing Organization Address City/[facility]/ZIP Co de Phone Number [facility] [place] [address] * (ABNORMAL) POC, GLUCOSE (02/29/2024 11:36 AM EDT) Glucometer, POC 259(H) 65 - 199 mg/dL 02/29/2024 11:36 AM EDT [facility] Comment:Supplemental ranges: <140 mg/dL before meals <180 mg/dL all other times of the day. Blood CAPILLARY BLOOD / Unknown 02/29/2024 11:36 AM EDT 02/29/2024 11:36 AM EDT Kd Huggins MD POINT OF CARE TEST ORDERABLES Performing Organization Address [facility] Co de Phone Number [facility] [place] [address] * POC, GLUCOSE (02/29/2024 7:31 AM EDT) Glucometer, POC 148 65 - 199 mg/dL 02/29/2024 7:32 AM EDT [facility] Comment:Supplemental ranges: <140 mg/dL before meals <180 mg/dL all other times of the day. Blood CAPILLARY BLOOD / Unknown 02/29/2024 7:31 AM EDT 02/29/2024 7:32 AM EDT Kd Huggins MD POINT OF CARE TEST ORDERABLES Performing Organization Address City/[facility]/ZIP Co de Phone Number [facility] [place] [address] * (ABNORMAL) Basic Metabolic Panel (02/29/2024 5:52 AM EDT) Glucose 152 65 - 199 mg/dL 02/29/2024 7:01 AM EDT [facility] Comment:Glucose Concentratio n >=200 mg/dL plus symptoms is consistent with Diabetes Mellitus. Blood Urea Nitrogen 15 10 - 20 mg/dL 02/29/2024 7:01 AM [facility] Creatinine 0.95 0.80 - 1.50 mg/dL 02/29/2024 7:01 AM [facility] Sodium 127(L) 135 - 145 mMol/L 02/29/2024 7:01 AM [facility] Potassium 4.1 3.5 - 5.0 mMol/L 02/29/2024 7:01 AM [facility] Chloride 93(L) 98 - 107 mMol/L 02/29/2024 7:01 AM [facility] Carbon Dioxide 20(L) 22 - 31 mMol/L 02/29/2024 7:01 AM [facility] Anion Gap 14 5 - 15 mMol/L 02/29/2024 7:01 AM [facility] Calcium 9.3 8.5 - 10.5 mg/dL 02/29/2024 7:01 AM [facility] Est Glomerular Filtration Rate - Male 84 mL/min/1. 73 m?? 02/29/2024 7:01 AM [facility] Comment: This patient's estimated GFR was [...] EDT 02/29/2024 6:26 AM EDT Susanna Cm FOOTWE[employer] SALES LEADER CHEMISTRY ORDERABLE S [facility] [place] [address] * POC, GLUCOSE (02/28/2024 9:22 PM EDT) Glucometer, POC 189 65 - 199 mg/dL 02/28/2024 9:22 PM EDT [facility] Comment:Supplemental ranges: <140 mg/dL before meals <180 mg/dL all other times of the day. Blood CAPILLARY BLOOD / Unknown 02/28/2024 9:22 PM EDT 02/28/2024 9:22 PM EDT Kd Huggins MD POINT OF CARE TEST ORDERABLES Performing Organization Address [facility]/ZIP Co de Phone Number [facility] [place] [address] * Urinalysis Microscopic Exam (02/28/2024 8:58 PM EDT) Bacteria, Urine None None /HPF 9:21 PM EDT [facility] RBC, Urine 3 0 - 3 /HPF 02/28/2024 9:21 PM EDT [facility] WBC, Urine 1 0 - 3 /HPF 02/28/2024 9:21 PM EDT [facility] Squamous Epithelial Cells, Urine 0 0 - 5 /HPF 02/28/2024 9:21 PM EDT [facility] Hyaline Casts, Urine 0 0 - 2 /LPF 02/28/2024 9:21 PM EDT [facility] Urine URINE SPECIMEN / Unknown Non Blood Collection / Unknown 02/28/2024 8:58 PM EDT 02/28/2024 9:08 PM EDT Kd Huggins MD URINE ORDERABLES Performing Organization Address City/[facility]/ZIP Co de Phone Number [facility] [place] [address] * (ABNORMAL) Urinalysis Dipstick (02/28/2024 8:58 PM EDT) Glucose, Urine Dipstick Negative Negative 02/28/2024 9:21 PM [facility] Protein, Urine Dipstick 100 mg/dL(A) Negative 02/28/2024 9:21 PM [facility] Bilirubin, Urine Dipstick Negative Negative 02/28/2024 9:21 PM [facility] Comment:Clinical correlation required for positive Urine Bilirubin results as false positive may occur with some drugs and drug related products. If a false positive is suspected a serum total bilirubin should be considered if clinically indicated. Urobilinogen, Urine Dipstick Normal Normal, 0.2 mg/dL, 1.0 mg/dL 02/28/2024 9:21 PM [facility] pH, Urine (dipstick) 6.0 5.0 - 8.0 02/28/2024 9:21 PM [facility] Blood, Urine Dipstick Trace(A) Negative 02/28/2024 9:21 PM [facility] Ketone, Urine Dipstick Negative Negative 02/28/2024 9:21 PM [facility] Nitrite, Urine Dipstick Negative Negative 02/28/2024 9:21 PM [facility] Leukocytes, Urine Dipstick Negative Negative 02/28/2024 9:21 PM [facility] Specific Lawrence Urine Automated 1.013 1.005 - 1.030 02/28/2024 9:21 PM [facility] Appearance, Urine Dipstick Clear Clear 02/28/2024 9:21 PM [facility] Color, Urine Dipstick Yellow Yellow, Dark Yellow 02/28/2024 9:21 PM [facility] Urine URINE SPECIMEN / Unknown Non Blood Collection / Unknown 02/28/2024 8:58 PM EDT 02/28/2024 9:08 PM EDT Kd Huggins MD URINE ORDERABLES Performing Organization Address City/[facility]/ZIP Co de Phone Number [facility] [place] [address] * Electrolytes, urine, random (02/28/2024 8:58 PM EDT) Sodium, Urine <20 mMol/L 02/28/2024 10:09 PM EDT [facility] Potassium, Urine 17 mMol/L 02/28/2024 10:09 PM EDT [facility] Chloride, Urine <20 mMol/L 02/28/2024 10:09 PM EDT [facility] Urine URINE SPECIMEN / Unknown Non Blood Collection / Unknown 02/28/2024 8:58 PM EDT 02/28/2024 9:08 PM EDT Kd Huggins MD URINE ORDERABLES Performing Organization Address [facility]/ZIP Co de Phone Number [facility] [place] [address] * Osmolality, urine, random (02/28/2024 8:58 PM EDT) Osmolality, Urine 314 50 - 1,200 mOsm/kg 02/28/2024 10:27 PM EDT [facility] Urine URINE SPECIMEN / Unknown Non Blood Collection / Unknown 02/28/2024 8:58 PM EDT 02/28/2024 9:08 PM EDT Kd Huggins MD URINE ORDERABLES Performing Organization Address City/[facility]/ZIP Co de Phone Number [facility] [place] [address] * (ABNORMAL) POC, GLUCOSE (02/28/2024 4:49 PM EDT) Glucometer, POC 220(H) 65 - 199 mg/dL 02/28/2024 4:49 PM EDT [facility] Comment:Supplemental ranges: <140 mg/dL before meals <180 mg/dL all other times of the day. Blood CAPILLARY BLOOD / Unknown 02/28/2024 4:49 PM EDT 02/28/2024 4:49 PM EDT Kd Huggins MD POINT OF CARE TEST ORDERABLES Performing Organization Address [facility] de Phone Number [facility] [place] [address] * (ABNORMAL) POC, GLUCOSE (02/28/2024 11:22 AM EDT) Glucometer, POC 219(H) 65 - 199 mg/dL 02/28/2024 11:22 AM EDT [facility] Comment:Supplemental ranges: <140 mg/dL before meals <180 mg/dL all other times of the day. Blood CAPILLARY BLOOD / Unknown 02/28/2024 11:22 AM EDT 02/28/2024 11:22 AM EDT Kd Huggins MD POINT OF CARE TEST ORDERABLES Performing Organization Address [facility] de Phone Number [facility] [place] [address] * XR Chest One View (02/28/2024 10:13 AM EDT) WORKSTATION ID [id number] DH RAD Anatomical Region Laterality Modality Chest [...] who have questions please contact the health personal care worker that requested your imaging first. ? Electronically signed by: Theo Garcia MD, [facility] ([phone]), at 02/28/2024 12:27 PM Narrative 02/28/2024 12:27 PM EDT EXAMINATION: XR [...] patients who have questions please contactthe health personal care worker that requested your imaging first. Kd Huggins MD IMG DX ORDERABLES * POC, GLUCOSE (02/28/2024 7:24 AM EDT) Glucometer, POC 162 65 - 199 mg/dL 02/28/2024 7:24 AM EDT [facility] Comment:Supplemental ranges: <140 mg/dL before meals <180 mg/dL all other times of the day. Blood CAPILLARY BLOOD / Unknown 02/28/2024 7:24 AM EDT 02/28/2024 7:24 AM EDT Kd Huggins MD POINT OF CARE TEST ORDERABLES Performing Organization Address [facility]/ZIP Co de Phone Number [facility] [place] [address] * (ABNORMAL) Osmolality (02/28/2024 5:33 AM EDT) Osmolality 270(L) 275 - 295 mOsm/kg 02/28/2024 9:50 AM EDT [facility] Blood VENOUS BLOOD SPECIMEN / Unknown IP Care Team Draw / Unknown 02/28/2024 5:33 AM EDT 02/28/2024 5:54 AM EDT Kd Huggins MD CHEMISTRY ORDERABL ES Performing Organization Address City/[facility]/ZIP Co de Phone Number [facility] [place] [address] * (ABNORMAL) Magnesium (02/28/2024 5:33 AM EDT) Magnesium 0.67(L) 0.69 - 1.07 mMol/L 02/28/2024 6:27 AM EDT [facility] Blood VENOUS BLOOD SPECIMEN / Unknown IP Care Team Draw / Unknown 02/28/2024 5:33 AM EDT 02/28/2024 5:54 AM EDT Susanna T Gorecki [employer] SAL[employer] LEADER CHEMISTRY ORDERABLE S [facility] [place] [address] * (ABNORMAL) CBC (with Diff) (02/28/2024 5:33 AM EDT) White Blood Cell 5.45 4.00 - 9.50 x10(3)/mc L 02/28/2024 6:03 AM EDT [facility] Red Blood Cell 3.82(L) 4.58 - 5.54 x10(6)/mc L 02/28/2024 6:03 AM EDT [facility] Hemoglobin 10.4(L) 13.7 - 16.5 g/dL 02/28/2024 6:03 AM [facility] Hematocrit 31.0(L) 40.5 - 48.5 % 02/28/2024 6:[facility] Mean Cell Volume 81.2(L) 82.9 - 93.1 fL 02/28/2024 6:03 AM T [facility] Mean Cell Hemoglobin 27.2(L) 27.5 - 32.1 pg 02/28/2024 6:03 AM [facility] Mean Cell Hemoglobin Concentration 33.5 32.0 - 35.7 g/dL 02/28/2024 6:03 AM [facility] Platelet 210 145 - 357 x10(3)/mc L 02/28/2024 6:03 AM [facility] Mean Platelet Volume 10.2 7.6 - 12.9 fL 02/28/2024 6:03 AM [facility] RDW Standard Deviation 45.5(H) 36.0 - 45.0 fL 02/28/2024 6:03 AM [facility] RDW coefficient of variation 15.3(H) 11.4 - 13.8 % 02/28/2024 6:03 AM [facility] NRBC% auto 0.0 % 02/28/2024 6:03 AM [facility] NRBC Absolute 0.00 0.00 - 0.00 x10(3)/mc L 02/28/2024 6:03 AM [facility] Neutrophil % 69.3 % 02/28/2024 6:03 AM [facility] Neutrophil Absolute (ANC) - Automated 3.78 1.70 - 6.10 x10(3)/mc L 02/28/2024 6:03 AM [facility] Lymph % 14.1 % 02/28/2024 6:03 AM [facility] Lymph Absolute 0.77(L) 0.90 - 3.20 x10(3)/mc L 02/28/2024 6:03 AM [facility] Monocyte % 11.6 % 02/28/2024 6:03 AM [facility] Monocyte Absolute 0.63 0.30 - 0.90 x10(3)/mc L 02/28/2024 6:03 AM [facility] Eos % 3.5 % 02/28/2024 6:03 AM [facility] Eos Absolute 0.19 0.00 - 0.40 x10(3)/mc L 02/28/2024 6:03 AM [facility] Basophil % 0.6 % 02/28/2024 6:03 AM [facility] Baso Absolute 0.03 0.00 - 0.10 x10(3)/mc L 02/28/2024 6:03 AM [facility] Immature Gran % 0.9 % 6:03 AM [facility] Immature Gran Absolute 0.05(H) 0.00 - 0.04 x10(3)/mc L 02/28/2024 6:03 AM [facility] Blood VENOUS BLOOD SPECIMEN / Unknown IP Care Team Draw / Unknown 02/28/2024 5:33 AM EDT 02/28/2024 5:54 AM EDT Susanna Cm [employer] LEADER HEMATOLOGY ORDERABL ES [facility] [place] [address] * (ABNORMAL) Basic Metabolic Panel (02/28/2024 5:33 AM EDT) Glucose 175 65 - 199 mg/dL 02/28/2024 6:27 AM EDT [facility] Comment:Glucose Concentratio n >=200 mg/dL plus symptoms is consistent with Diabetes Mellitus. Blood Urea Nitrogen 15 10 - 20 mg/dL 02/28/2024 6:27 AM T [facility] Creatinine 1.05 0.80 - 1.50 mg/dL 02/28/2024 6:27 AM [facility] Sodium 125(L) 135 - 145 mMol/L 02/28/2024 6:27 AM T [facility] Potassium 4.1 3.5 - 5.0 mMol/L 02/28/2024 6:27 AM [facility] Chloride 93(L) 98 - 107 mMol/L 02/28/2024 6:27 AM [facility] Carbon Dioxide 21(L) 22 - 31 mMol/L 02/28/2024 6:27 AM [facility] Anion Gap 11 5 - 15 mMol/L 02/28/2024 6:27 AM T [facility] Calcium 8.9 8.5 - 10.5 mg/dL 02/28/2024 6:27 AM [facility] Est Glomerular Filtration Rate - Male 74 mL/min/1. 73 m?? 02/28/2024 6:27 [facility]: This patient's estimated [...] EDT 02/28/2024 5:54 AM EDT Susanna Cm [employer] LEADER CHEMISTRY ORDERABLE S Performing Organization Address [facility] Co de Phone Number [facility] [place] [address] * (ABNORMAL) POC, GLUCOSE (02/27/2024 8:50 PM EDT) Glucometer, POC 225(H) 65 - 199 mg/dL 02/27/2024 8:50 PM EDT [facility] Comment:Supplemental ranges: <140 mg/dL before meals <180 mg/dL all other times of the day. Blood CAPILLARY BLOOD / Unknown 02/27/2024 8:50 PM EDT 02/27/2024 8:50 PM EDT Kd Huggins MD POINT OF CARE TEST ORDERABLES Performing Organization Address [facility] Co de Phone Number [facility] [place] [address] * POC, GLUCOSE (02/27/2024 3:25 PM EDT) Glucometer, POC 192 65 - 199 mg/dL 02/27/2024 3:25 PM EDT [facility] Comment:Supplemental ranges: <140 mg/dL before meals <180 mg/dL all other times of the day. Blood CAPILLARY BLOOD / Unknown 02/27/2024 3:25 PM EDT 02/27/2024 3:25 PM EDT Kd Huggins MD POINT OF CARE TEST ORDERABLES Performing Organization Address City/State/[facility] Co de Phone Number [facility] [place] [address] * (ABNORMAL) POC, GLUCOSE (02/27/2024 11:09 AM EDT) Glucometer, POC 220(H) 65 - 199 mg/dL 02/27/2024 11:10 AM EDT [facility] Comment:Supplemental ranges: <140 mg/dL before meals <180 mg/dL all other times of the day. Blood CAPILLARY BLOOD / Unknown 02/27/2024 11:09 AM EDT 02/27/2024 11:10 AM EDT Kd Huggins MD POINT OF CARE TEST ORDERABLES Performing Organization Address [facility] Co de Phone Number [facility] [place] [address] * POC, GLUCOSE (02/27/2024 7:25 AM EDT) Glucometer, POC 148 65 - 199 mg/dL 02/27/2024 7:25 AM EDT [facility] Comment:Supplemental ranges: <140 mg/dL before meals <180 mg/dL all other times of the day. Blood CAPILLARY BLOOD / Unknown 02/27/2024 7:25 AM EDT 02/27/2024 7:25 AM EDT Kd Huggins MD POINT OF CARE TEST ORDERABLES Performing Organization Address City/[facility] Co de Phone Number [facility] [place] [address] * (ABNORMAL) Osmolality (02/27/2024 6:30 AM EDT) Osmolality 270(L) 275 - 295 mOsm/kg 02/28/2024 10:06 AM EDT [facility] Blood VENOUS BLOOD SPECIMEN / Unknown IP Care Team Draw / Unknown 02/27/2024 6:30 AM EDT 02/27/2024 6:59 AM EDT Kd Huggins MD CHEMISTRY ORDERABL ES Performing Organization Address City/[facility]/ZIP Co de Phone Number [facility] [place] [address] * (ABNORMAL) Magnesium (02/27/2024 6:30 AM EDT) Pathologist [facility] Magnesium 0.63(L) 0.69 - 1.07 mMol/L 02/27/2024 7:43 AM EDT [facility] Blood VENOUS BLOOD SPECIMEN / Unknown IP Care Team Draw / Unknown 02/27/2024 6:30 AM EDT 02/27/2024 6:59 AM EDT Susanna Cm APRN CHEMISTRY ORDERABLE S Performing Organization Address [facility] Co de Phone Number [facility] [place] [address] * (ABNORMAL) CBC (with Diff) (02/27/2024 6:30 AM EDT) [facility] White Blood Cell 5.78 4.00 - 9.50 x10(3)/mc L 02/27/2024 7:06 AM EDT [facility] Red Blood Cell 3.80(L) 4.58 - 5.54 x10(6)/mc L 02/27/2024 7:06 AM EDT [facility] Hemoglobin 10.5(L) 13.7 - 16.5 g/dL 02/27/2024 7:06 AM EDT [facility] Hematocrit 30.5(L) 40.5 - 48.5 % 02/27/2024 7:06 AM EDT [facility] Mean Cell Volume 80.3(L) 82.9 - 93.1 fL 02/27/2024 7:06 AM EDT [facility] Mean Cell Hemoglobin 27.6 27.5 - 32.1 pg 02/27/2024 7:06 AM EDT [facility] Mean Cell Hemoglobin Concentration 34.4 32.0 - 35.7 g/dL 02/27/2024 7:06 AM [facility] Platelet 179 145 - 357 x10(3)/mc L 02/27/2024 7:06 AM [facility] Mean Platelet Volume 10.5 7.6 - 12.9 fL 02/27/2024 7:06 AM [facility] RDW Standard Deviation 44.2 36.0 - 45.0 fL 02/27/2024 7:06 AM [facility] RDW coefficient of variation 15.1(H) 11.4 - 13.8 % 02/27/2024 7:06 AM [facility] NRBC% auto 0.0 % 02/27/2024 7:06 AM [facility] NRBC Absolute 0.00 0.00 - 0.00 x10(3)/mc L 02/27/2024 7:06 AM [facility] Neutrophil % 66.4 % 02/27/2024 7:06 AM [facility] Neutrophil Absolute (ANC) - Automated 3.84 1.70 - 6.10 x10(3)/mc L 02/27/2024 7:06 AM [facility] Lymph % 16.4 % 02/27/2024 7:06 AM [facility] Lymph Absolute 0.95 0.90 - 3.20 x10(3)/mc L 02/27/2024 7:06 AM [facility] Monocyte % 12.5 % 02/27/2024 7:06 AM [facility] Monocyte Absolute 0.72 0.30 - 0.90 x10(3)/mc L 02/27/2024 7:06 AM [facility] Eos % 3.1 % 02/27/2024 7:06 AM [facility] Eos Absolute 0.18 0.00 - 0.40 x10(3)/mc L 02/27/2024 7:06 AM [facility] Basophil % 0.9 % 02/27/2024 7:06 AM EDT [facility] Baso Absolute 0.05 0.00 - 0.10 x10(3)/mc L 02/27/2024 7:06 AM EDT [facility] Immature Gran % 0.7 % 7:06 AM EDT [facility] Immature Gran Absolute 0.04 0.00 - 0.04 x10(3)/mc L 02/27/2024 7:06 AM EDT [facility] Blood VENOUS BLOOD SPECIMEN / Unknown IP Care Team Draw / Unknown 02/27/2024 6:30 AM EDT 02/27/2024 6:59 AM EDT Susanna Cm [employer] LEADER HEMATOLOGY ORDERABL ES [facility] [place] [address] * (ABNORMAL) Basic Metabolic Panel (02/27/2024 6:30 AM EDT) Glucose 138 65 - 199 mg/dL 02/27/2024 7:43 AM [facility] Comment:Glucose Concentratio n >=200 mg/dL plus symptoms is consistent with Diabetes Mellitus. Blood Urea Nitrogen 11 10 - 20 mg/dL 02/27/2024 7:43 AM EDT [facility] Creatinine 1.00 0.80 - 1.50 mg/dL 02/27/2024 7:43 [facility] Sodium 128(L) 135 - 145 mMol/L 02/27/2024 7:43 AM [facility] Potassium 4.3 3.5 - 5.0 mMol/L 02/27/2024 7:43 AM [facility] Chloride 95(L) 98 - 107 mMol/L 02/27/2024 7:43 AM [facility] Carbon Dioxide 22 22 - 31 mMol/L 02/27/2024 7:43 AM EDT [facility] Anion Gap 11 5 - 15 mMol/L 02/27/2024 7:43 AM EDT [facility] Calcium 9.0 8.5 - 10.5 mg/dL 02/27/2024 7:43 AM EDT [facility] Est Glomerular Filtration Rate - Male 79 mL/min/1. 73 m?? 02/27/2024 7:43 AM EDT [facility] Comment: This patient's estimated GFR [...] EDT Susanna Cm APRN CHEMISTRY ORDERABLE S [facility] [place] [address] * POC, GLUCOSE (02/26/2024 9:14 PM EDT) [facility] Signature Glucometer, POC 140 65 - 199 mg/dL 02/26/2024 9:15 PM EDT [facility] Comment:Supplemental ranges: <140 mg/dL before meals <180 mg/dL all other times of the day. Blood CAPILLARY BLOOD / Unknown 02/26/2024 9:14 PM EDT 02/26/2024 9:15 PM EDT Arti Griffin MD POINT OF CARE TEST ORDERABLES [facility] [place] [address] * POC, GLUCOSE (02/26/2024 5:00 PM EDT) Glucometer, POC 158 65 - 199 mg/dL 02/26/2024 5:00 PM EDT [facility] Comment:Supplemental ranges: <140 mg/dL before meals <180 mg/dL all other times of the day. Blood CAPILLARY BLOOD / Unknown 02/26/2024 5:00 PM EDT 02/26/2024 5:00 PM EDT Kd Huggins MD POINT OF CARE TEST ORDERABLES Performing Organization Address [facility] Co de Phone Number [facility] [place] [address] * POC, GLUCOSE (02/26/2024 3:51 PM EDT) Glucometer, POC 187 65 - 199 mg/dL 02/26/2024 3:52 PM EDT [facility] Comment:Supplemental ranges: <140 mg/dL before meals <180 mg/dL all other times of the day. Blood CAPILLARY BLOOD / Unknown 02/26/2024 3:51 PM EDT 02/26/2024 3:52 PM EDT Kd Huggins MD POINT OF CARE TEST ORDERABLES Performing Organization Address [facility] Co de Phone Number [facility] [place] [address] * POC, GLUCOSE (02/26/2024 11:31 AM EDT) Glucometer, POC 128 65 - 199 mg/dL 02/26/2024 11:31 AM EDT [facility] Comment:Supplemental ranges: <140 mg/dL before meals <180 mg/dL all other times of the day. Blood CAPILLARY BLOOD / Unknown 02/26/2024 11:31 AM EDT 02/26/2024 11:31 AM EDT Kd Huggins MD POINT OF CARE TEST ORDERABLES [facility] [place] [address] * (ABNORMAL) POC, GLUCOSE (02/26/2024 9:35 AM EDT) Glucometer, POC 244(H) 65 - 199 mg/dL 02/26/2024 9:35 AM EDT [facility] Comment:Supplemental ranges: <140 mg/dL before meals <180 mg/dL all other times of the day. Blood CAPILLARY BLOOD / Unknown 02/26/2024 9:35 AM EDT 02/26/2024 9:36 AM EDT Kd Huggins MD POINT OF CARE TEST ORDERABLES Performing Organization Address [facility] Co de Phone Number [facility] [place] [address] * (ABNORMAL) POC, GLUCOSE (02/26/2024 7:41 AM EDT) Glucometer, POC 276(H) 65 - 199 mg/dL 02/26/2024 7:41 AM EDT [facility] Comment:Supplemental ranges: <140 mg/dL before meals <180 mg/dL all other times of the day. Blood CAPILLARY BLOOD / Unknown 02/26/2024 7:41 AM EDT 02/26/2024 7:41 AM EDT Arti Griffin MD POINT OF CARE TEST ORDERABLES [facility] [place] [address] * POC, GLUCOSE (02/26/2024 3:21 AM EDT) Glucometer, POC 105 65 - 199 mg/dL 02/26/2024 3:21 AM EDT [facility] Comment:Supplemental ranges: <140 mg/dL before meals <180 mg/dL all other times of the day. Blood CAPILLARY BLOOD / Unknown 02/26/2024 3:21 AM EDT 02/26/2024 3:22 AM EDT Arti Griffin MD POINT OF CARE TEST ORDERABLES Performing Organization Address City/[facility]/ZIP Co de Phone Number [facility] [place] [address] * Osmolality (02/26/2024 12:04 AM EDT) Osmolality 275 275 - 295 mOsm/kg 02/28/2024 2:43 PM EDT [facility] Blood VENOUS BLOOD SPECIMEN / Unknown IP Care Team Draw / Unknown 02/26/2024 12:04 AM EDT 02/26/2024 12:11 AM EDT Kd Huggins MD CHEMISTRY ORDERABL ES Performing Organization Address [facility] Co de Phone Number [facility] [place] [address] * POC, GLUCOSE (02/26/2024 12:04 AM EDT) Glucometer, POC 181 65 - 199 mg/dL 02/26/2024 12:04 AM EDT [facility] Comment:Supplemental ranges: <140 mg/dL before meals <180 mg/dL all other times of the day. Blood CAPILLARY BLOOD / Unknown 02/26/2024 12:04 AM EDT 02/26/2024 12:04 AM EDT Arti Griffin MD POINT OF CARE TEST ORDERABLES Performing Organization Address City/[facility] Co de Phone Number [facility] [place] [address] * Magnesium (02/26/2024 12:04 AM EDT) Magnesium 0.79 0.69 - 1.07 mMol/L 02/26/2024 12:42 AM EDT [facility] Blood VENOUS BLOOD SPECIMEN / Unknown IP Care Team Draw / Unknown 02/26/2024 12:04 AM EDT 02/26/2024 12:11 AM EDT Susanna Cm [employer] LEADER CHEMISTRY ORDERABLE S [facility] [place] [address] * (ABNORMAL) CBC (with Diff) (02/26/2024 12:04 AM EDT) White Blood Cell 5.76 4.00 - 9.50 x10(3)/mc L 02/26/2024 12:17 AM EDT [facility] Red Blood Cell 3.81(L) 4.58 - 5.54 x10(6)/mc L 02/26/2024 12:17 AM T [facility] Hemoglobin 10.6(L) 13.7 - 16.5 g/dL 02/26/2024 12:17 AM [facility] Hematocrit 31.0(L) 40.5 - 48.5 % 02/26/2024 12:17 AM [facility] Mean Cell Volume 81.4(L) 82.9 - 93.1 fL 02/26/2024 12:17 AM T [facility] Mean Cell Hemoglobin 27.8 27.5 - 32.1 pg 02/26/2024 12:17 AM EDT [facility] Mean Cell Hemoglobin Concentration 34.2 32.0 - 35.7 g/dL 02/26/2024 12:17 AM [facility] Platelet 186 145 - 357 x10(3)/mc L 02/26/2024 12:17 [facility] Mean Platelet Volume 10.3 7.6 - 12.9 fL 02/26/2024 12:17 AM [facility] RDW Standard Deviation 45.5(H) 36.0 - 45.0 fL 02/26/2024 12:17 AM [facility] RDW coefficient of variation 15.4(H) 11.4 - 13.8 % 02/26/2024 12:17 AM [facility] NRBC% auto 0.0 % 02/26/2024 12:17 AM [facility] NRBC Absolute 0.00 0.00 - 0.00 x10(3)/mc L 02/26/2024 12:17 AM [facility] Neutrophil % 71.0 % 02/26/2024 12:17 AM [facility] Neutrophil Absolute (ANC) - Automated 4.09 1.70 - 6.10 x10(3)/mc L 02/26/2024 12:17 AM [facility] Lymph % 16.0 % 02/26/2024 12:17 AM [facility] Lymph Absolute 0.92 0.90 - 3.20 x10(3)/mc L 02/26/2024 12:17 AM [facility] Monocyte % 9.7 % 02/26/2024 12:17 AM [facility] Monocyte Absolute 0.56 0.30 - 0.90 x10(3)/mc L 02/26/2024 12:17 AM [facility] Eos % 2.3 % 02/26/2024 12:17 AM [facility] Eos Absolute 0.13 0.00 - 0.40 x10(3)/mc L 02/26/2024 12:17 AM [facility] Basophil % 0.5 % 02/26/2024 12:17 AM [facility] Baso Absolute 0.03 0.00 - 0.10 x10(3)/mc L 02/26/2024 12:17 AM [facility] Immature Gran % 0.5 % 12:17 AM [facility] Immature Gran Absolute 0.03 0.00 - 0.04 x10(3)/mc L 02/26/2024 12:17 AM EDT [facility] Blood VENOUS BLOOD SPECIMEN / Unknown IP Care Team Draw / Unknown 02/26/2024 12:04 AM EDT 02/26/2024 12:11 AM EDT Susanna Cm [employer] SAL[employer] LEADER HEMATOLOGY ORDERABL ES [facility] [place] [address] * (ABNORMAL) Basic Metabolic Panel (02/26/2024 12:04 AM EDT) Glucose 182 65 - 199 mg/dL 02/26/2024 12:42 AM [facility] Comment:Glucose Concentratio n >=200 mg/dL plus symptoms is consistent with Diabetes Mellitus. Blood Urea Nitrogen 11 10 - 20 mg/dL 02/26/2024 12:42 AM EDT [facility] Creatinine 0.97 0.80 - 1.50 mg/dL 02/26/2024 12:42 AM [facility] Sodium 129(L) 135 - 145 mMol/L 02/26/2024 12:42 AM [facility] Potassium 4.5 3.5 - 5.0 mMol/L 02/26/2024 12:42 AM [facility] Chloride 94(L) 98 - 107 mMol/L 02/26/2024 12:42 AM [facility] Carbon Dioxide 23 22 - 31 mMol/L 02/26/2024 12:42 AM [facility] Anion Gap 12 5 - 15 mMol/L 02/26/2024 12:42 AM [facility] Calcium 8.9 8.5 - 10.5 mg/dL 02/26/2024 12:42 AM [facility] Est Glomerular Filtration Rate - Male 82 mL/min/1. 73 m?? 02/26/2024 12:42 AM EDT [facility] Comment: This patient's estimated GFR [...] APRN CHEMISTRY ORDERABLE S Performing Organization Address City/[facility]/ZIP Co de Phone Number [facility] [place] [address] * POC, GLUCOSE (02/25/2024 7:39 PM EDT) Glucometer, POC 112 65 - 199 mg/dL 02/25/2024 7:39 PM EDT [facility] Comment:Supplemental ranges: <140 mg/dL before meals <180 mg/dL all other times of the day. Blood CAPILLARY BLOOD / Unknown 02/25/2024 7:39 PM EDT 02/25/2024 7:39 PM EDT Arti Griffin MD POINT OF CARE TEST ORDERABLES [facility] [place] [address] * POC, GLUCOSE (02/25/2024 4:11 PM EDT) Glucometer, POC 169 65 - 199 mg/dL 02/25/2024 4:11 PM EDT [facility] Comment:Supplemental ranges: <140 mg/dL before meals <180 mg/dL all other times of the day. Blood CAPILLARY BLOOD / Unknown 02/25/2024 4:11 PM EDT 02/25/2024 4:11 PM EDT Arti Griffin MD POINT OF CARE TEST ORDERABLES Performing Organization Address City/State/[facility] Co de Phone Number [facility] [place] [address] * EEG Continuous Monitoring Inpatient (02/25/2024 4:00 PM EDT) Narrative Josias Hyman MD - 02/25/2024 4:00 PM EDT Josias Hyman MD ? 02/25/2024 ??4:02 PM [facility] Department of Neurology Inpatient Continuous Video EEG Report Name of the Patient: ??Johnson Tobar Date of : ?1950 Patient Location: [facility] Date of Service: 02/24/2024 Referring physician: [...] ??Earlier today, he was taken to the cath laboratory technician, though no intervention required. ??In recovery, pt [...] EKG. Video was recorded during the session. ART MUSEUM AIDE'S REPORT: Performed by: AT At the onset [...] MD PGY-6 Clinical Instructor - Epilepsy Fellow [facility] Epilepsy Program Department of Neurology 02/25/2024 Susanna T Toi [employer] SAL[employer] LEADER NEUROLOGY ORDERABLE S * MRI Brain wo Contrast (02/25/2024 3:06 PM EDT) [employer] WORKSTATION ID [id number] RAD Anatomical Region Laterality Modality Head Magnetic [...] who have questions please contact the health personal care worker that requested your imaging first. ? Electronically signed by: ILTZY Flores [facility] ([phone]), at 02/25/2024 3:26 PM Narrative 02/25/2024 3:26 [...] patients who have questions please contactthe health personal care worker that requested your imaging first. Gonzalez Barajas MD IMG MRI ORDERABLES * Carotid Duplex, Bilateral (02/25/2024 2:32 PM EDT) VB Text Report Department: Vascular Surgery Lab Patient: [id number] (JOHNSON TOBAR) CPT: 86839 Referring Physician: SUSANNA CM ?? Phone: Indications: [...] VASCUBASE 02/25/2024 2:32 PM EDT Susanna Cm [employer] SALES LEADER VASCULAR ORDERABLES V[facility]CUBASE * (ABNORMAL) Basic Metabolic Panel (02/25/2024 1:12 PM EDT) Glucose 171 65 - 199 mg/dL 02/25/2024 4:00 PM [facility] Comment:Glucose Concentratio n >=200 mg/dL plus symptoms is consistent with Diabetes Mellitus. Blood Urea Nitrogen 11 10 - 20 mg/dL 02/25/2024 4:00 PM [facility] Creatinine 1.00 0.80 - 1.50 mg/dL 02/25/2024 4:00 PM [facility] Sodium 129(L) 135 - 145 mMol/L 02/25/2024 4:00 PM [facility] Potassium 4.4 3.5 - 5.0 mMol/L 02/25/2024 4:00 PM [facility] Chloride 94(L) 98 - 107 mMol/L 02/25/2024 4:00 PM [facility] Carbon Dioxide 22 22 - 31 mMol/L 02/25/2024 4:00 PM [facility] Anion Gap 13 5 - 15 mMol/L 02/25/2024 4:00 PM [facility] Calcium 9.4 8.5 - 10.5 mg/dL 02/25/2024 4:00 PM [facility] Est Glomerular Filtration Rate - Male 79 mL/min/1. 73 m?? 02/25/2024 4:00 PM [facility] Comment: This patient's estimated GFR was [...] MD CHEMISTRY ORDERABL ES Performing Organization Address City/[facility]/ZIP Co de Phone Number [facility] [place] [address] * POC, GLUCOSE (02/25/2024 12:44 PM EDT) Glucometer, POC 143 65 - 199 mg/dL 02/25/2024 12:45 PM EDT [facility] Comment:Supplemental ranges: <140 mg/dL before meals <180 mg/dL all other times of the day. Blood CAPILLARY BLOOD / Unknown 02/25/2024 12:44 PM EDT 02/25/2024 12:45 PM EDT Gonzalez Barajas MD POINT OF CARE TEST ORDERABLES Performing Organization Address [facility]/ZIP Co de Phone Number [facility] [place] [address] * POC, GLUCOSE (02/25/2024 7:29 AM EDT) Glucometer, POC 123 65 - 199 mg/dL 02/25/2024 7:30 AM EDT [facility] Comment:Supplemental ranges: <140 mg/dL before meals <180 mg/dL all other times of the day. Blood CAPILLARY BLOOD / Unknown 02/25/2024 7:29 AM EDT 02/25/2024 7:30 AM EDT Gonzalez Barajas MD POINT OF CARE TEST ORDERABLES [facility] [place] [address] * (ABNORMAL) POC, GLUCOSE (02/25/2024 3:58 AM EDT) [facility] Glucometer, POC 252(H) 65 - 199 mg/dL 02/25/2024 3:58 AM EDT [facility] Comment:Supplemental ranges: <140 mg/dL before meals <180 mg/dL all other times of the day. Blood CAPILLARY BLOOD / Unknown 02/25/2024 3:58 AM EDT 02/25/2024 3:58 AM EDT Gonzalez Barajas MD POINT OF CARE TEST ORDERABLES Performing Organization Address City/[facility]/ZIP Co de Phone Number [facility] [place] [address] * (ABNORMAL) Magnesium (02/25/2024 1:06 AM EDT) [facility] Magnesium 0.63(L) 0.69 - 1.07 mMol/L 02/25/2024 1:53 AM EDT [facility] Blood VENOUS BLOOD SPECIMEN / Unknown IP Care Team Draw / Unknown 02/25/2024 1:06 AM EDT 02/25/2024 1:12 AM EDT Susanna Cm APRN CHEMISTRY ORDERABLE S Performing Organization Address City/[facility]/ZIP Co de Phone Number [facility] [place] [address] * (ABNORMAL) CBC (with Diff) (02/25/2024 1:06 AM EDT) [facility] White Blood Cell 5.55 4.00 - 9.50 x10(3)/mc L 02/25/2024 1:29 AM EDT [facility] Red Blood Cell 3.97(L) 4.58 - 5.54 x10(6)/mc L 02/25/2024 1:29 AM EDT [facility] Hemoglobin 10.9(L) 13.7 - 16.5 g/dL 02/25/2024 1:29 AM [facility] Hematocrit 31.6(L) 40.5 - 48.5 % 02/25/2024 1:29 AM [facility] Mean Cell Volume 79.6(L) 82.9 - 93.1 fL 02/25/2024 1:29 AM [facility] Mean Cell Hemoglobin 27.5 27.5 - 32.1 pg 02/25/2024 1:29 AM [facility] Mean Cell Hemoglobin Concentration 34.5 32.0 - 35.7 g/dL 02/25/2024 1:29 AM [facility] Platelet 173 145 - 357 x10(3)/mc L 02/25/2024 1:29 AM [facility] Mean Platelet Volume 10.4 7.6 - 12.9 fL 02/25/2024 1:29 AM [facility] RDW Standard Deviation 44.6 36.0 - 45.0 fL 02/25/2024 1:29 AM [facility] RDW coefficient of variation 15.2(H) 11.4 - 13.8 % 02/25/2024 1:29 AM [facility] NRBC% auto 0.0 % 02/25/2024 1:29 AM [facility] NRBC Absolute 0.00 0.00 - 0.00 x10(3)/mc L 02/25/2024 1:29 AM [facility] Neutrophil % 71.1 % 02/25/2024 1:29 AM [facility] Neutrophil Absolute (ANC) - Automated 3.95 1.70 - 6.10 x10(3)/mc L 02/25/2024 1:29 AM [facility] Lymph % 13.2 % 02/25/2024 1:29 AM [facility] Lymph Absolute 0.73(L) 0.90 - 3.20 x10(3)/mc L 02/25/2024 1:29 AM EDT [facility] Monocyte % 12.6 % 02/25/2024 1:29 AM EDT [facility] Monocyte Absolute 0.70 0.30 - 0.90 x10(3)/mc L 02/25/2024 1:29 AM EDT [facility] Eos % 2.2 % 02/25/2024 1:29 AM EDT [facility] Eos Absolute 0.12 0.00 - 0.40 x10(3)/mc L 02/25/2024 1:29 AM EDT [facility] Basophil % 0.4 % 02/25/2024 1:29 AM EDT [facility] Baso Absolute 0.02 0.00 - 0.10 x10(3)/mc L 02/25/2024 1:29 AM EDT [facility] Immature Gran % 0.5 % 1:29 AM EDT [facility] Immature Gran Absolute 0.03 0.00 - 0.04 x10(3)/mc L 02/25/2024 1:29 AM EDT [facility] Blood VENOUS BLOOD SPECIMEN / Unknown IP Care Team Draw / Unknown 02/25/2024 1:06 AM EDT 02/25/2024 1:12 AM EDT Susanna Cm [employer] SAL[employer] LEADER HEMATOLOGY ORDERABL ES [facility] [place] [address] * (ABNORMAL) Basic Metabolic Panel (02/25/2024 1:06 AM EDT) Glucose 112 65 - 199 mg/dL 02/25/2024 1:53 AM EDT [facility] Comment:Glucose Concentratio n >=200 mg/dL plus symptoms is consistent with Diabetes Mellitus. Blood Urea Nitrogen 13 10 - 20 mg/dL 02/25/2024 1:53 AM [facility] Creatinine 1.00 0.80 - 1.50 mg/dL 02/25/2024 1:53 AM [facility] Sodium 130(L) 135 - 145 mMol/L 02/25/2024 1:53 AM [facility] Potassium 4.3 3.5 - 5.0 mMol/L 02/25/2024 1:53 AM [facility] Chloride 95(L) 98 - 107 mMol/L 02/25/2024 1:53 AM [facility] Carbon Dioxide 22 22 - 31 mMol/L 02/25/2024 1:53 AM [facility] Anion Gap 13 5 - 15 mMol/L 02/25/2024 1:53 AM [facility] Calcium 9.4 8.5 - 10.5 mg/dL 02/25/2024 1:53 AM [facility] Est Glomerular Filtration Rate - Male 79 mL/min/1. 73 m?? 02/25/2024 1:53 AM [facility] Comment: This patient's estimated GFR was [...] EDT 02/25/2024 1:12 AM EDT Susanna Cm [employer] SAL[employer] LEADER CHEMISTRY ORDERABLE S [facility] [place] [address] * POC, GLUCOSE (02/24/2024 11:55 PM EDT) Glucometer, POC 143 65 - 199 mg/dL 02/24/2024 11:56 PM EDT [facility] Comment:Supplemental ranges: <140 mg/dL before meals <180 mg/dL all other times of the day. Blood CAPILLARY BLOOD / Unknown 02/24/2024 11:55 PM EDT 02/24/2024 11:56 PM EDT Gonzalez aBrajas MD POINT OF CARE TEST ORDERABLES [facility] [place] [address] * CT Head WO Contrast Dual Energy (Post MT/TPA) (02/24/2024 10:04 PM EDT) WORKSTATION ID [id number] RAD Anatomical Region Laterality Modality Head Computed [...] who have questions please contact the health personal care worker that requested your imaging first. ? Electronically signed by: Artur Palafox MD, [facility] ([phone]), at 02/25/2024 1:25 AM Narrative 02/25/2024 1:25 [...] patients who have questions please contactthe health personal care worker that requested your imaging first. Gonzalez Barajas MD IMG CT ORDERABLES * (ABNORMAL) POC, GLUCOSE (02/24/2024 9:00 PM EDT) Glucometer, POC 230(H) 65 - 199 mg/dL 02/24/2024 9:00 PM EDT [facility] Comment:Supplemental ranges: <140 mg/dL before meals <180 mg/dL all other times of the day. Blood CAPILLARY BLOOD / Unknown 02/24/2024 9:00 PM EDT 02/24/2024 9:00 PM EDT Gonzalez Barajas MD POINT OF CARE TEST ORDERABLES Performing Organization Address City/[facility]/ZIP Co de Phone Number [facility] [place] [address] * Electrolytes, urine, random (02/24/2024 8:58 PM EDT) [facility] Sodium, Urine 22 mMol/L 02/28/2024 8:18 AM EDT [facility] Potassium, Urine 68 mMol/L 02/28/2024 8:18 AM EDT [facility] Chloride, Urine <20 mMol/L 02/28/2024 8:18 AM EDT [facility] Urine URINE SPECIMEN / Unknown Non Blood Collection / Unknown 02/24/2024 8:58 PM EDT 02/24/2024 9:35 PM EDT Kd Huggins MD URINE ORDERABLES [facility] [place] [address] * Osmolality, urine, random (02/24/2024 8:58 PM EDT) Osmolality, Urine 685 50 - 1,200 mOsm/kg 02/24/2024 11:35 PM EDT [facility] Urine URINE SPECIMEN / Unknown Non Blood Collection / Unknown 02/24/2024 8:58 PM EDT 02/24/2024 11:32 PM EDT Gonzalez Barajas MD URINE ORDERABLES [facility] [place] [address] * Osmolality (02/24/2024 8:58 PM EDT) Osmolality 275 275 - 295 mOsm/kg 02/25/2024 12:20 AM EDT [facility] Blood VENOUS BLOOD SPECIMEN / Unknown IP Care Team Draw / Unknown 02/24/2024 8:58 PM EDT 02/24/2024 9:35 PM EDT Fariba Ramirez MD CHEMISTRY ORDERABLES Performing Organization Address City/[facility]/ZIP Co de Phone Number [facility] [place] [address] * POC, GLUCOSE (02/24/2024 6:45 PM EDT) Glucometer, POC 142 65 - 199 mg/dL 02/24/2024 6:45 PM EDT [facility] Comment:Supplemental ranges: <140 mg/dL before meals <180 mg/dL all other times of the day. Blood CAPILLARY BLOOD / Unknown 02/24/2024 6:45 PM EDT 02/24/2024 6:45 PM EDT Gonzalez Barajas MD POINT OF CARE TEST ORDERABLES [facility] [place] [address] * POC, GLUCOSE (02/24/2024 3:24 PM EDT) Glucometer, POC 138 65 - 199 mg/dL 02/24/2024 3:24 PM EDT [facility] Comment:Supplemental ranges: <140 mg/dL before meals <180 mg/dL all other times of the day. Blood CAPILLARY BLOOD / Unknown 02/24/2024 3:24 PM EDT 02/24/2024 3:24 PM EDT Gonzalez Barajas MD POINT OF CARE TEST ORDERABLES Performing Organization Address City/[facility]/ZIP Co de Phone Number [facility] [place] [address] * TSH (02/24/2024 1:31 PM EDT) Thyroid Stimulating Hormone 2.07 0.27 - 4.20 mcIU/mL 02/24/2024 7:48 PM EDT [facility] Blood VENOUS BLOOD SPECIMEN / Unknown 02/24/2024 1:31 PM EDT 02/24/2024 1:48 PM EDT Gonzalez Barajas MD CHEMISTRY ORDERABL ES Performing Organization Address City/[facility]/ZIP Co de Phone Number [facility] [place] [address] * Lipid Panel (Reflex Direct LDL) (02/24/2024 1:31 PM EDT) Cholesterol, Total 91 mg/dL 02/24/2024 7:48 PM EDT [facility] Comment: Desirable: < 200 mg/dL Borderline High: 200 - 239 mg/dL High: > or = 240 mg/dL Triglyceride 122 mg/dL 02/24/2024 7:48 PM EDT [facility] Comment: Normal: <150 mg/dL Borderline High: 150-199 mg/dL High: 200-499 mg/dL Very High: > or =500 mg/dL HDL Cholesterol 32 mg/dL 7:48 PM EDT [facility] Comment:Males: High Risk: <4 0 mg/dL LDL Cholesterol 37 mg/dL 7:48 PM EDT [facility] Comment: Desirable: <100 mg/dL Above Desirable: 100-129 mg/dL Borderline High: 130-159 mg/dL High: 160-189 mg/dL Very High: > or =190 mg/dL Note: LDL calculation updated to the NIH LDL formula as of 02/16/2024 Non-HDL Cholesterol 59 mg/dL 02/24/2024 7:48 PM EDT [facility] Comment: Desirable: <130 mg/dL Above Desirable: 130-159 mg/dL Borderline High: 160-189 mg/dL High: 190-219 mg/dL Very High: > or = 220 mg/dL Blood VENOUS BLOOD SPECIMEN / Unknown 02/24/2024 1:31 PM EDT 02/24/2024 1:48 PM EDT [facility] - 02/24/2024 7:48 PM EDT It [...] ACC/AHA Guidelines (most recently Barb et al. JAC 04/17/22): * For individuals with atherosclerotic cardiovascular [...] disease) Gonzalez Barajas MD CHEMISTRY ORDERABL ES [facility] [place] [address] * (ABNORMAL) CBC (with Diff) (02/24/2024 1:31 PM EDT) [facility] White Blood Cell 4.94 4.00 - 9.50 x10(3)/mc L 02/24/2024 1:54 PM EDT [facility] Red Blood Cell 3.80(L) 4.58 - 5.54 x10(6)/mc L 02/24/2024 1:54 PM EDT [facility] Hemoglobin 10.5(L) 13.7 - 16.5 g/dL 02/24/2024 1:54 PM EDT [facility] Hematocrit 30.7(L) 40.5 - 48.5 % 02/24/2024 1:54 PM EDT [facility] Mean Cell Volume 80.8(L) 82.9 - 93.1 fL 02/24/2024 1:54 PM [facility] Mean Cell Hemoglobin 27.6 27.5 - 32.1 pg 02/24/2024 1:54 PM [facility] Mean Cell Hemoglobin Concentration 34.2 32.0 - 35.7 g/dL 02/24/2024 1:54 PM [facility] Platelet 172 145 - 357 x10(3)/mc L 02/24/2024 1:54 PM [facility] Mean Platelet Volume 10.3 7.6 - 12.9 fL 02/24/2024 1:54 PM [facility] RDW Standard Deviation 46.0(H) 36.0 - 45.0 fL 02/24/2024 1:54 PM [facility] RDW coefficient of variation 15.6(H) 11.4 - 13.8 % 02/24/2024 1:54 PM [facility] NRBC% auto 0.0 % 02/24/2024 1:54 PM [facility] NRBC Absolute 0.00 0.00 - 0.00 x10(3)/mc L 02/24/2024 1:54 PM [facility] Neutrophil % 68.5 % 02/24/2024 1:54 PM [facility] Neutrophil Absolute (ANC) - Automated 3.38 1.70 - 6.10 x10(3)/mc L 02/24/2024 1:54 PM [facility] Lymph % 16.4 % 02/24/2024 1:54 PM [facility] Lymph Absolute 0.81(L) 0.90 - 3.20 x10(3)/mc L 02/24/2024 1:54 PM [facility] Monocyte % 11.5 % 02/24/2024 1:54 PM [facility] Monocyte Absolute 0.57 0.30 - 0.90 x10(3)/mc L 02/24/2024 1:54 PM [facility] Eos % 2.2 % 02/24/2024 1:54 PM EDT [facility] Eos Absolute 0.11 0.00 - 0.40 x10(3)/mc L 02/24/2024 1:54 PM EDT [facility] Basophil % 0.4 % 02/24/2024 1:54 PM EDT [facility] Baso Absolute 0.02 0.00 - 0.10 x10(3)/mc L 02/24/2024 1:54 PM EDT [facility] Immature Gran % 1.0 % 1:54 PM EDT [facility] Immature Gran Absolute 0.05(H) 0.00 - 0.04 x10(3)/mc L 02/24/2024 1:54 PM EDT [facility] Blood VENOUS BLOOD SPECIMEN / Unknown 02/24/2024 1:31 PM EDT 02/24/2024 1:49 PM EDT Susanna Cm [employer] LEADER HEMATOLOGY ORDERABL ES [facility] [place] [address] * (ABNORMAL) Basic Metabolic Panel (02/24/2024 1:31 PM EDT) Glucose 137 65 - 199 mg/dL 02/24/2024 3:54 PM EDT [facility] Comment:Glucose Concentratio n >=200 mg/dL plus symptoms is consistent with Diabetes Mellitus. Blood Urea Nitrogen 11 10 - 20 mg/dL 02/24/2024 3:54 PM EDT [facility] Creatinine 1.05 0.80 - 1.50 mg/dL 02/24/2024 3:54 PM EDT [facility] Sodium 126(L) 135 - 145 mMol/L 02/24/2024 3:54 PM EDT [facility] Potassium 4.2 3.5 - 5.0 mMol/L 02/24/2024 3:54 PM EDT [facility] Chloride 95(L) 98 - 107 mMol/L 02/24/2024 3:54 PM EDT [facility] Carbon Dioxide 20(L) 22 - 31 mMol/L 02/24/2024 3:54 PM EDT [facility] Anion Gap 11 5 - 15 mMol/L 02/24/2024 3:54 PM EDT [facility] Calcium 8.7 8.5 - 10.5 mg/dL 02/24/2024 3:54 PM EDT [facility] Est Glomerular Filtration Rate - Male 74 mL/min/1. 73 m?? 02/24/2024 3:54 PM EDT [facility] Comment: This patient's estimated GFR [...] EDT 02/24/2024 1:48 PM EDT Susanna Cm [employer] LEADER CHEMISTRY ORDERABLE S [facility] [place] [address] * Prothrombin Time (02/24/2024 1:25 PM EDT) Prothrombin Time 12.3 9.4 - 12.5 sec 02/24/2024 2:01 PM EDT [facility] International Normalization Ratio 1.1 <=4.9 02/24/2024 2:01 PM EDT [facility] Comment: An INR < 2.0 [...] APRN HEMATOLOGY ORDERABL ES Performing Organization Address [facility] Co de Phone Number [facility] [place] [address] * APTT (02/24/2024 1:25 PM EDT) Partial Thromboplastin Time 29 25 - 37 sec 02/24/2024 2:01 PM EDT [facility] Comment: The PTT is NOT appropriate for heparin monitoring. Use the Anti-Xa level for heparin monitoring (HEP UFH) or LMWH monitoring (HEP LMW). A PTT less than 37 seconds generally indicates adequate hemostasis. Blood VENOUS BLOOD SPECIMEN / Unknown 02/24/2024 1:25 PM EDT 02/24/2024 1:37 PM EDT Fariba Ramirez MD HEMATOLOGY ORDERABLE S Performing Organization Address [facility] Co de Phone Number [facility] [place] [address] * CT Head wo Contrast (Generic) (02/24/2024 1:10 PM EDT) WORKSTATION ID [id number] DH RAD Anatomical Region Laterality Modality Head Computed Tomogra phy Impressions 02/24/2024 2:49 PM EDT 1. 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 2. ??Severe right ICA origin stenosis. 3. ??Moderate-severe right intradural vertebral artery stenosis. 4. ??No intracranial hemorrhage. Dr. Tooker discussed the result(s #1) with Dr. Adler [...] who have questions please contact the health personal care worker that requested your imaging first. ? Electronically signed by: Kingston Dukes MD, [facility] ([phone]), at 02/24/2024 2:49 PM Narrative 02/24/2024 2:49 PM EDT EXAMINATION: CT HEAD WO CONTRAST (GENERIC), CTA HEAD/NECK MULTIPHASE (THROMBECTOMY PROTOCOL) CLINICAL HISTORY: stroke alert TECHNIQUE: CT of head without intravenous contrast. Multiphase CTA of the carotids and [place] of [place] is performed after the administration of 65cc of Omnipaque 350 intravenous contrast. MIP and 3-D volumetric reconstructions were created. COMPARISON: None FINDINGS: CT Head: No acute intracranial hemorrhage or mass effect. Cheung-white matter differentiation is maintained. ??Normal caliber ventricles. Patent basal cisterns.. Imaged paranasal sinuses and mastoid air cells are clear. CTA [place]: Intradural segments of the internal carotid arteries are patent. ??Normal course and caliber of the middle and anterior cerebral arteries. Dominant left vertebral artery is normal caliber. Calcified atheroma moderate-severely narrow the intradural right vertebral artery. Normal basilar artery. Occluded mid-distal P2 segment of the right LITIGATION ASSISTANT without distal reconstitution. No filling on delayed [...] intravenous contrast. Multiphase CTA of the carotidsand [place] is performed after the administration of 65cc ofOmnipaque 350 intravenous contrast. MIP and 3-D volumetric reconstructions werecreated. COMPARISON: None FINDINGS: CT Head: No acute intracranial hemorrhage or mass effect. Cheung-white matter differentiation is maintained. Normal caliber ventricles. Patent basal cisterns.. Imaged paranasal sinuses and mastoid air cells are clear. CTA [place]: Intradural segments of the internal carotid arteries are patent. Normalcourse and caliber of the middle and anterior cerebral arteries. Dominant left vertebral artery is normal caliber. Calcified atheroma moderate-severely narrow the intradural right vertebral artery. Normalbasilar artery. Occluded mid-distal P2 segment of the right LITIGATION ASSISTANT without distalreconstitution. No filling on delayed images. [...] be exaggerated by respiratorymotion. IMPRESSION 1. 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 2. Severe right [...] patients who have questions please contactthe health personal care worker that requested your imaging first. Electronically signed by: Kingston Dukes MD, [facility]([phone]), at 02/24/2024 2:49 PM Susanna Cm [employer] SALES LEADER IMG CT ORDERABLES * CTA Head/Neck Multiphase (Thrombectomy Protocol) (02/24/2024 1:10 PM EDT) [employer] WORKSTATION ID [id number] RAD Anatomical Region Laterality Modality Head Computed Tomogra phy Impressions 02/24/2024 2:49 PM EDT 1. 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 2. ??Severe right [...] who have questions please contact the health personal care worker that requested your imaging first. ? Electronically signed by: Kingston Dukes MD, [facility] ([phone]), at 02/24/2024 2:49 PM Narrative 02/24/2024 2:49 PM EDT EXAMINATION: CT HEAD WO CONTRAST (GENERIC), CTA HEAD/NECK MULTIPHASE (THROMBECTOMY PROTOCOL) CLINICAL HISTORY: stroke alert TECHNIQUE: CT of head without intravenous contrast. Multiphase CTA of the carotids and [place] is performed after the administration of 65cc of Omnipaque 350 intravenous contrast. MIP and 3-D volumetric reconstructions were created. COMPARISON: None FINDINGS: CT Head: No acute intracranial hemorrhage or mass effect. Cheung-white matter differentiation is maintained. ??Normal caliber ventricles. Patent basal cisterns.. Imaged paranasal sinuses and mastoid air cells are clear. CTA [place] of [place]: Intradural segments of the internal carotid arteries are patent. ??Normal course and caliber of the middle and anterior cerebral arteries. Dominant left vertebral artery is normal caliber. Calcified atheroma moderate-severely narrow the intradural right vertebral artery. Normal basilar artery. Occluded mid-distal P2 segment of the right LITIGATION ASSISTANT without distal reconstitution. No filling on delayed [...] intravenous contrast. Multiphase CTA of the carotidsand [place] is performed after the administration of 65cc ofOmnipaque 350 intravenous contrast. MIP and 3-D volumetric reconstructions werecreated. COMPARISON: None FINDINGS: CT Head: No acute intracranial hemorrhage or mass effect. Cheung-white matter differentiation is maintained. Normal caliber ventricles. Patent basal cisterns.. Imaged paranasal sinuses and mastoid air cells are clear. CTA [place]: Intradural segments of the internal carotid arteries are patent. Normalcourse and caliber of the middle and anterior cerebral arteries. Dominant left vertebral artery is normal caliber. Calcified atheroma moderate-severely narrow the intradural right vertebral artery. Normalbasilar artery. Occluded mid-distal P2 segment of the right LITIGATION ASSISTANT without distalreconstitution. No filling on delayed images. [...] be exaggerated by respiratorymotion. IMPRESSION 1. 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 2. Severe right [...] patients who have questions please contactthe health personal care worker that requested your imaging first. Electronically signed by: Kingston Dukes MD, [facility]([phone]), at 02/24/2024 2:49 PM Susannasima Storeygilma [employer] SALES LEADER IMG CT ORDERABLES * POC, GLUCOSE (02/24/2024 12:45 PM EDT) [facility] Signature Glucometer, POC 124 65 - 199 mg/dL 02/24/2024 12:46 PM EDT [facility] Comment:Supplemental ranges: <140 mg/dL before meals <180 mg/dL all other times of the day. Blood CAPILLARY BLOOD / Unknown 02/24/2024 12:45 PM EDT 02/24/2024 12:46 PM EDT Fariba Ramirez MD POINT OF CARE TEST O RDERABLES [facility] [place] [address] * CARDIAC CATHETERIZATION (02/24/2024 12:32 PM EDT) Anatomical Region Laterality Modality Other Narrative 02/25/2024 4:57 PM EDT ?[facility] ? Cardiac Catheterization/Intervention Report ? Patient Name: Ekaterina, Johnson R. ? Procedure Date: 02/24/2024 ? A #: [id number] ? Primary Physician: Mogadam, Emad ? Case #: [id number] ? File Name: [id number] ? Catheterization Order Number: [id number] ? [facility] ? Final Report [place], [place] ? Patient Name: ? Johnson R. Ekaterina ? ID#: ?[id number] ? : ?1950 ? Procedure Date: ? February 24, 2024 ?Case #: ? [id number] ? Room: ? 2 ? Case Physician: ? Emajuan miguel Dc M.D. ? Start: ?11:37 ?Fellow: ? Mauricio Chi Jr., M.D. ?Admission: ??02/23/2024 ? Referring Physician: ??Ariel Lynn M.D. ? Procedures: ?* Coronary Angiography ?* Left Heart Catheterization ?* Bypass Graft Study ? History ?Johnson R. Ekaterina is a 73 year old man. He [...] was designated as ASA Class III. The [facility] clinical ?frailty scale is 4: [...] procedure was Urgent. The indication for ?the cath laboratory technician visit is ACS greater than 24 hrs. [...] Procedure Note Zara Dc MD - 03/06/2024 [facility] Cardiac Catheterization/Intervention Report Patient Name: Johnson Tobar Procedure Date: 02/24/2024 A #: [id number] Primary Physician: Zara Dc Case #: [id number] File Name: [id number] Catheterization Order Number: [id number] [facility] FinalReport [place], [place] Patient Name: Johnson Tobar ID#:[id number] :1950 Procedure Date: February 24, 2024 Case #: [id number] Room: 2 Case Physician: Zara Dc M.D. Start: 11:37 Fellow: Mauricio Chi Jr., [...] diagnostic procedure was Urgent. The indicationfor the cath laboratory technician visit is ACS greater than 24 hrs. [...] * POC, GLUCOSE (02/24/2024 11:05 AM EDT) Glucometer, POC 137 65 - 199 mg/dL 02/24/2024 11:05 AM EDT [facility] Comment:Supplemental ranges: <140 mg/dL before meals <180 mg/dL all other times of the day. Blood CAPILLARY BLOOD / Unknown 02/24/2024 11:05 AM EDT 02/24/2024 11:05 AM EDT Farbia Ramirez MD POINT OF CARE TEST O RDERABLES [facility] [place] [address] * ECHO COMPLETE W CONTRAST (02/24/2024 9:18 AM EDT) [facility] EF 55 HEARTLAB SYSTEM Anatomical Region Laterality Modality Cardiac Other 02/24/2024 6:53 AM EDT Narrative 02/24/2024 9:58 AM EDT [address] [place] [address] ? Echocardiogram Report Name: JOHNSON TOBAR ?Study Date: 02/24/2024 06:53 AMBP: 131/77 mmHg ? Patient Location: L4WB^463^A : 1950 ? Height: 170 cm ? Account: [id number] Age: 73 yrs ? Weight: 75 kg Gender: Male ?BSA: 1.9 m2 Ordering Physician: MAURICIO JEAN Referring Physician: ARIEL LYNN Performed By: Kim Donahue RDCS Reason For Study: CAD Exam Location: [facility]. Interpretation Summary Technically difficult study despite [...] with a DEBORAH if clinically indicated. Procedure Complete-05171. Image enhancement Optison was used for left [...] Note Darron Manzanares MD - 02/24/2024 [address] [place] [id number] Echocardiogram Report Name: JOHNSON TOBAR Study Date: 406:53 AMBP: 131/77 mmHg Patient Location:[facility]^463^A : 1950 Height: 170 cm Account: [id number] Age: 73 yrs Weight: 75 kg Gender: Male BSA: 1.9 m2 Ordering Physician: MAURICIO JEAN Referring Physician: ARIEL LYNN Performed By: Kim Donahue RDCS Reason For Study: CAD Exam Location: [facility]. Interpretation Summary Technically difficult study despite [...] with a DEBORAH if clinically indicated. Procedure Complete-77062. Image enhancement Optison was used for left [...] - 199 mg/dL 02/24/2024 7:39 AM EDT [facility] Comment:Supplemental ranges: <140 mg/dL before meals <180 mg/dL all other times of the day. Blood CAPILLARY BLOOD / Unknown 02/24/2024 7:40 AM EDT 02/24/2024 7:40 AM EDT Fariba Ramirez MD POINT OF CARE TEST O RDERABLES [facility] [place] [address] * Prothrombin Time (02/24/2024 3:02 AM EDT) Prothrombin Time 12.3 9.4 - 12.5 sec 02/24/2024 1:32 PM EDT [facility] International Normalization Ratio 1.1 <=4.9 02/24/2024 1:32 PM EDT [facility] Comment: An INR < 2.0 [...] EDT Fariba Ramirez MD HEMATOLOGY ORDERABLE S [facility] [place] [address] * (ABNORMAL) Hemoglobin A1c (02/24/2024 3:02 AM EDT) Hemoglobin A1c 8.3(H) 4.3 - 5.6 % 02/24/2024 10:42 AM EDT [facility] Comment: Per ADA guidelines, without [...] red blood cell turnover may not be registration representative of glycemic control. Reference Interval: 4.3 - 5.6% 5.7 - 6.4%: Consistent with prediabetes >=6.5%: Consistent with diagnosis of diabetes mellitus Estimated Average Glucose 02/24/2024 10:42 AM EDT [facility] Comment:Not Calculated. Blood VENOUS BLOOD SPECIMEN / Unknown IP Care Team Draw / Unknown 02/24/2024 3:02 AM EDT 02/24/2024 3:07 AM EDT Narrative [facility] - 02/24/2024 10:42 AM EDT Estimated average glucose (eAG) is calculated from the equation described in: Johnathan BOO, Cira J, Mak R, et al. ??Translating the A1C assay into estimated average glucose values. ??Diabetes Care 2008:31(8):6912-8754. Additional resources are available on the ADA website (diabetes.org). Fariba Ramirez MD CHEMISTRY ORDERABLES Performing Organization Address City/[facility]/ZIP Co de Phone Number [facility] [place] [address] * (ABNORMAL) Troponin - Single (02/24/2024 3:02 AM EDT) [facility] Troponin-T, High Sensitivity 141(H) <=22 ng/L 02/24/2024 6:30 AM EDT [facility] Comment: This patient's troponin T [...] troponin value can be found in the [facility] Laboratory Test Catalog Troponin - https://[facility].testcatalog.org/catalogs/565/files/03305 Reference: Fourth Zachary Definition of Myocardial Infarction. Journal of the [place] College [employer] 2018;72:1401-3774 Blood VENOUS BLOOD SPECIMEN / Unknown IP Care Team Draw / Unknown 02/24/2024 3:02 AM EDT 02/24/2024 3:07 AM EDT Mauricio Jean MD CHEMISTRY ORDERABLES Performing Organization Address City/[facility]/ZIP Co de Phone Number [facility] [place] [address] * Heparin (unfractionated) Level (02/24/2024 3:02 AM EDT) UF Heparin 0.23 IU/mL 02/24/2024 3:25 AM EDT [facility] Comment: Heparin (anti-Xa) levels should [...] EDT Mauricio Jean MD HEMATOLOGY ORDERABLE S [facility] [place] [address] * (ABNORMAL) Magnesium (02/24/2024 3:02 AM EDT) Pathologist [facility] Magnesium 0.44(L) 0.69 - 1.07 mMol/L 02/24/2024 3:38 AM EDT [facility] Blood VENOUS BLOOD SPECIMEN / Unknown IP Care Team Draw / Unknown 02/24/2024 3:02 AM EDT 02/24/2024 3:07 AM EDT Marina Schmitz [employer] SAL[employer] LEADER CHEMISTRY ORDERAB LES [facility] [place] [address] * (ABNORMAL) Basic Metabolic Panel (02/24/2024 3:02 AM EDT) Glucose 88 65 - 199 mg/dL 02/24/2024 3:38 AM [facility] Comment:Glucose Concentratio n >=200 mg/dL plus symptoms is consistent with Diabetes Mellitus. Blood Urea Nitrogen 12 10 - 20 mg/dL 02/24/2024 3:38 AM [facility] Creatinine 0.95 0.80 - 1.50 mg/dL 02/24/2024 3:38 AM [facility] Sodium 131(L) 135 - 145 mMol/L 02/24/2024 3:38 AM [facility] Potassium 4.0 3.5 - 5.0 mMol/L 02/24/2024 3:38 AM [facility] Chloride 96(L) 98 - 107 mMol/L 02/24/2024 3:38 AM [facility] Carbon Dioxide 19(L) 22 - 31 mMol/L 02/24/2024 3:38 AM [facility] Anion Gap 16(H) 5 - 15 mMol/L 02/24/2024 3:38 AM [facility] Calcium 9.7 8.5 - 10.5 mg/dL 02/24/2024 3:38 AM [facility] Est Glomerular Filtration Rate - Male 84 mL/min/1. 73 m?? 02/24/2024 3:38 AM [facility] Comment: This patient's estimated GFR was [...] EDT 02/24/2024 3:07 AM EDT Marina Schmitz [employer] SAL[employer] LEADER CHEMISTRY ORDERAB LES [facility] [place] [address] * (ABNORMAL) CBC (with Diff) (02/24/2024 3:02 AM EDT) White Blood Cell 5.20 4.00 - 9.50 x10(3)/mc L 02/24/2024 3:13 AM EDT [facility] Red Blood Cell 4.11(L) 4.58 - 5.54 x10(6)/mc L 02/24/2024 3:13 AM EDT [facility] Hemoglobin 11.3(L) 13.7 - 16.5 g/dL 02/24/2024 3:13 AM [facility] Hematocrit 33.2(L) 40.5 - 48.5 % 02/24/2024 3:13 AM [facility] Mean Cell Volume 80.8(L) 82.9 - 93.1 fL 02/24/2024 3:13 AM [facility] Mean Cell Hemoglobin 27.5 27.5 - 32.1 pg 02/24/2024 3:13 AM [facility] Mean Cell Hemoglobin Concentration 34.0 32.0 - 35.7 g/dL 02/24/2024 3:13 AM [facility] Platelet 151 145 - 357 x10(3)/mc L 02/24/2024 3:13 AM [facility] Mean Platelet Volume 10.6 7.6 - 12.9 fL 02/24/2024 3:13 AM [facility] RDW Standard Deviation 46.5(H) 36.0 - 45.0 fL 02/24/2024 3:13 AM [facility] RDW coefficient of variation 15.7(H) 11.4 - 13.8 % 02/24/2024 3:13 AM [facility] NRBC% auto 0.0 % 02/24/2024 3:13 AM [facility] NRBC Absolute 0.00 0.00 - 0.00 x10(3)/mc L 02/24/2024 3:13 AM [facility] Neutrophil % 71.9 % 02/24/2024 3:13 AM [facility] Neutrophil Absolute (ANC) - Automated 3.74 1.70 - 6.10 x10(3)/mc L 02/24/2024 3:13 AM [facility] Lymph % 13.3 % 02/24/2024 3:13 AM [facility] Lymph Absolute 0.69(L) 0.90 - 3.20 x10(3)/mc L 02/24/2024 3:13 AM [facility] Monocyte % 11.3 % 02/24/2024 3:13 AM [facility] Monocyte Absolute 0.59 0.30 - 0.90 x10(3)/mc L 02/24/2024 3:13 AM [facility] Eos % 2.5 % 02/24/2024 3:13 AM [facility] Eos Absolute 0.13 0.00 - 0.40 x10(3)/mc L 02/24/2024 3:13 AM [facility] Basophil % 0.4 % 02/24/2024 3:13 AM [facility] Baso Absolute 0.02 0.00 - 0.10 x10(3)/mc L 02/24/2024 3:13 AM [facility] Immature Gran % 0.6 % 3:13 AM [facility] Immature Gran Absolute 0.03 0.00 - 0.04 x10(3)/mc L 02/24/2024 3:13 AM EDT [facility] Blood VENOUS BLOOD SPECIMEN / Unknown IP Care Team Draw / Unknown 02/24/2024 3:02 AM EDT 02/24/2024 3:07 AM EDT Mauricio Jean MD HEMATOLOGY ORDERABLE S Performing Organization Address City/[facility]/ZIP Co de Phone Number [facility] [place] [address] * EKG 12 Lead (02/24/2024 2:00 AM EDT) Ventricular rate 84 BPM MUSE SYSTEM Atrial Rate 84 BPM MUSE SYSTEM P-R Interval 124 ms MUSE SYSTEM QRS Duration 80 ms MUSE SYSTEM Q-T Interval 372 ms MUSE SYSTEM QTC Calculated (Bezet) 439 ms MUSE SYSTEM Calculated P [place] 59 degrees MUSE SYSTEM Calculated R [place] -8 degrees MUSE SYSTEM Calculated T [place] 0 degrees MUSE SYSTEM INTERPRETATION Normal sinus rhythm Possible Left atrial enlargement Inferior infarct (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-2020) Borderline ST depression Lateral leads Abnormal ECG When compared with ECG of 26-JUN-2023 13:17, No significant change was found I personally reviewed the tracing and edited the fellows interpretation Confirmed by fellow MD Sunshine, Carl ([id number]) on 02/24/2024 10:56:50 AM Confirmed by MD Darrick, Marshal ([id number]) on 02/25/2024 5:56:17 AM MUSE SYSTEM 02/24/2024 2:00 AM EDT 02/25/2024 5:56 AM EDT Mauricio Jean MD ECG ORDERABLES Performing Organization Address City/[facility]/ZIP Co de Phone Number MUSE SYSTEM * POC, GLUCOSE (02/23/2024 9:40 PM EDT) Glucometer, POC 135 65 - 199 mg/dL 02/23/2024 9:40 PM EDT [facility] Comment:Supplemental ranges: <140 mg/dL before meals <180 mg/dL all other times of the day. Blood CAPILLARY BLOOD / Unknown 02/23/2024 9:40 PM EDT 02/23/2024 9:40 PM EDT Kal Puentes MD POINT OF CARE TEST O RDERABLES Performing Organization Address City/[facility]/ZIP Co de Phone Number [facility] [place] [address] * (ABNORMAL) Magnesium (02/23/2024 9:37 PM EDT) Magnesium 0.43(L) 0.69 - 1.07 mMol/L 02/23/2024 10:19 PM EDT [facility] Blood VENOUS BLOOD SPECIMEN / Unknown IP Care Team Draw / Unknown 02/23/2024 9:37 PM EDT 02/23/2024 9:42 PM EDT Marina Schmitz [employer] SAL[employer] LEADER CHEMISTRY ORDERAB LES Performing Organization Address City/[facility]/ZIP Co de Phone Number [facility] [place] [address] * (ABNORMAL) Basic Metabolic Panel (02/23/2024 9:37 PM EDT) Glucose 126 65 - 199 mg/dL 02/23/2024 10:19 PM EDT [facility] Comment:Glucose Concentratio n >=200 mg/dL plus symptoms is consistent with Diabetes Mellitus. Blood Urea Nitrogen 14 10 - 20 mg/dL 02/23/2024 10:19 PM EDT [facility] Creatinine 1.00 0.80 - 1.50 mg/dL 02/23/2024 10:19 PM EDT [facility] Sodium 129(L) 135 - 145 mMol/L 02/23/2024 10:19 PM EDT [facility] Potassium 4.0 3.5 - 5.0 mMol/L 02/23/2024 10:19 PM EDT [facility] Chloride 94(L) 98 - 107 mMol/L 02/23/2024 10:19 PM EDT [facility] Carbon Dioxide 20(L) 22 - 31 mMol/L 02/23/2024 10:19 PM EDT [facility] Anion Gap 15 5 - 15 mMol/L 02/23/2024 10:19 PM EDT [facility] Calcium 9.6 8.5 - 10.5 mg/dL 02/23/2024 10:19 PM EDT [facility] Est Glomerular Filtration Rate - Male 79 mL/min/1. 73 m?? 02/23/2024 10:19 PM EDT [facility] Comment: This patient's estimated GFR [...] EDT 02/23/2024 9:42 PM EDT Marina Schmitz [employer] SAL[employer] LEADER CHEMISTRY ORDERAB LES [facility] [place] [address] * (ABNORMAL) CBC (with Diff) (02/23/2024 9:37 PM EDT) White Blood Cell 5.78 4.00 - 9.50 x10(3)/mc L 02/23/2024 9:52 PM EDT [facility] Red Blood Cell 4.24(L) 4.58 - 5.54 x10(6)/mc L 02/23/2024 9:52 PM EDT [facility] Hemoglobin 11.7(L) 13.7 - 16.5 g/dL 02/23/2024 9:52 PM [facility] Hematocrit 34.5(L) 40.5 - 48.5 % 02/23/2024 9:52 PM [facility] Mean Cell Volume 81.4(L) 82.9 - 93.1 fL 02/23/2024 9:52 PM [facility] Mean Cell Hemoglobin 27.6 27.5 - 32.1 pg 02/23/2024 9:52 PM [facility] Mean Cell Hemoglobin Concentration 33.9 32.0 - 35.7 g/dL 02/23/2024 9:52 PM [facility] Platelet 158 145 - 357 x10(3)/mc L 02/23/2024 9:52 PM [facility] Mean Platelet Volume 10.4 7.6 - 12.9 fL 02/23/2024 9:52 PM [facility] RDW Standard Deviation 47.0(H) 36.0 - 45.0 fL 02/23/2024 9:52 PM [facility] RDW coefficient of variation 15.8(H) 11.4 - 13.8 % 02/23/2024 9:52 PM [facility] NRBC% auto 0.0 % 02/23/2024 9:52 PM [facility] NRBC Absolute 0.00 0.00 - 0.00 x10(3)/mc L 02/23/2024 9:52 PM [facility] Neutrophil % 73.4 % 02/23/2024 9:52 PM [facility] Neutrophil Absolute (ANC) - Automated 4.24 1.70 - 6.10 x10(3)/mc L 02/23/2024 9:52 PM [facility] Lymph % 13.5 % 02/23/2024 9:52 PM [facility] Lymph Absolute 0.78(L) 0.90 - 3.20 x10(3)/mc L 02/23/2024 9:52 PM EDT [facility] Monocyte % 9.7 % 02/23/2024 9:52 PM EDT [facility] Monocyte Absolute 0.56 0.30 - 0.90 x10(3)/mc L 02/23/2024 9:52 PM EDT [facility] Eos % 2.4 % 02/23/2024 9:52 PM EDT [facility] Eos Absolute 0.14 0.00 - 0.40 x10(3)/mc L 02/23/2024 9:52 PM EDT [facility] Basophil % 0.5 % 02/23/2024 9:52 PM EDT [facility] Baso Absolute 0.03 0.00 - 0.10 x10(3)/mc L 02/23/2024 9:52 PM EDT [facility] Immature Gran % 0.5 % 9:52 PM EDT [facility] Immature Gran Absolute 0.03 0.00 - 0.04 x10(3)/mc L 02/23/2024 9:52 PM EDT [facility] Blood VENOUS BLOOD SPECIMEN / Unknown IP Care Team Draw / Unknown 02/23/2024 9:37 PM EDT 02/23/2024 9:42 PM EDT Marina Schmitz [employer] SAL[employer] LEADER HEMATOLOGY ORDERA BLES [facility] [place] [address] * (ABNORMAL) pro-Brain Natriuretic Peptide (02/23/2024 9:37 PM EDT) NT-proBNP 1,918(H) <=124 pg/mL 02/23/2024 10:19 PM EDT [facility] Blood VENOUS BLOOD SPECIMEN / Unknown IP Care Team Draw / Unknown 02/23/2024 9:37 PM EDT 02/23/2024 9:42 PM EDT Mauricio Jean MD CHEMISTRY ORDERABLES [facility] [place] [address] * (ABNORMAL) Troponin - Single (02/23/2024 9:37 PM EDT) Troponin-T, High Sensitivity 161(H) <=22 ng/L 02/23/2024 10:19 PM EDT [facility] Comment: This patient's troponin T [...] troponin value can be found in the [facility] Laboratory Test Catalog Troponin - https://[facility]testcatalog.org/catalogs/565/files/85042 Reference: Fourth Zachary Definition of Myocardial Infarction. Journal of the [place] [employer] 2018;72:8546-4997 Blood VENOUS BLOOD SPECIMEN / Unknown IP Care Team Draw / Unknown 02/23/2024 9:37 PM EDT 02/23/2024 9:42 PM EDT Mauricio Jean MD CHEMISTRY ORDERABLES [facility] [place] [address] documented in this encounter Visit Diagnoses Not on filedocumented in this encounter Admitting Diagnoses Diagnosis NSTEMI [...] Given 02/27/2024 1:20 AM EDT 650 mg amLODIPine (Norvasc) tablet 5 mg 5 [...] Given 02/29/2024 9:40 AM EDT 81 mg clopidogreL (Plavix) tablet 75 mg 75 [...] Given 02/29/2024 9:41 AM EDT 10 mg fentaNYL (pf) (50 mcg/mL) multi-dose injection PRN, Starting on Sat02/24/24 at 1139, Until Sat02/24/24 at 1244, Intra-Operative (Intra-Procedure), Routine Given 02/24/2024 12:24 PM EDT 12.5 mcg Given 02/24/2024 11:39 AM EDT 25 mcg glucagon (Glucagen) (1 mg/mL) injection solution 1 [...] weight of tube = 37.5 grams.), Routine insulin glargine-ygfn (Semglee) (100 unit/mL) subcutaneous injection [...] 3 Units iohexoL (Omnipaque) (350 mg/mL) solution PRN, Starting on Sat02/24/24 at 1231, Until Sat02/24/24 at 1244, Intra-Operative (Intra-Procedure), Routine Given 02/24/2024 12:31 PM EDT 55 mLs labetaloL (Normodyne) (5 mg/mL) injection solution 10-20 [...] be given with niCARdipine and enalaprilat., Routine metoprolol tartrate (Lopressor) tablet 100 mg 100 mg, Oral, EVERY 12 HOURS SCHEDULED (2 times per day), First dose on Sat02/25/24 at 0900, Until Discontinued, Routine Given 03/02/2024 10:13 AM EDT 100 mg Given 03/01/2024 8:26 PM EDT 100 mg Given 03/01/2024 9:05 AM EDT 100 mg midazolam (pf) (Versed) (1 mg/mL) multi-dose injection PRN, Starting on Sat02/24/24 at 1139, Until Sat02/24/24 at 1244, Intra-Operative (Intra-Procedure), Routine Given 02/24/2024 11:39 AM EDT 1 mg naloxone (Narcan) (0.4 mg/mL) injection PRN, Starting on Sat02/24/24 at 1245, Until Sat02/24/24 at 1521, Intra-Operative (Intra-Procedure), Routine Given 02/24/2024 12:45 PM EDT 0.4 mg pantoprazole EC (Protonix) tablet 40 mg 40 mg, Oral, DAILY, First dose on Sat02/25/24 at 0900, Until Discontinued, DO NOT CRUSH OR OPEN, Routine Given 03/02/2024 10:13 AM EDT 40 mg Given 03/01/2024 9:05 AM EDT 40 mg Given 02/29/2024 9:43 AM EDT 40 mg rosuvastatin (Crestor) tablet [...] 9:05 AM EDT 1 tablet sodium chloride tablet 1 g 1 g, Oral, 3 TIMES DAILY, First dose on Sat02/29/24 at 0900, Until Discontinued, Routine Given 03/02/2024 10:12 AM ED T 1 g Given 03/01/2024 8:26 PM EDT 1 g Given 03/01/2024 4:15 PM EDT 1 g documented in this encounter Active and Recently Administered Medications Times are shown in EDT. Scheduled Medication Order 02/29/2024 03/01/2024 03/02/2024 amLODIPine (Norvasc) tablet 5 mg 5 mg, Oral, 2 TIMES DAILY, First dose on Sat02/25/24 at 0900, Until Discontinued, Routine 942 (Given - Provider: Dotty Burns RN)2054 (Given - Provider: Linsey Esquivel RN) 905 (Given - Provider: Wendi Baeza RN)2025 (Given - Provider: Linsey Esquivel RN) 101 (Given - Provider: Miguel A Vides LPN - Comment: patient was off unit for PT) aspirin chewable tablet 81 mg 81 mg, Oral, DAILY, First dose on Sat02/26/24 at 0900, Until Discontinued, Routine 939 (Given - Provider: Dotty Burns RN) 09 (Given - Provider: Wendi Baeza RN) 101 (Given - Provider: Miguel A Vidse LPN - Comment: patient was off unit [...] on Sat02/26/24 at 0900, Until Discontinued, Routine 942 (Given - Provider: Dotty Burns RN) 904 (Given - Provider: Wendi Baeza RN) 101 [...] on Sat02/25/24 at 0900, Until Discontinued, Routine 0941 (Given - Provider: Dotty Burns RN) 0905 (Given - Provider: Wendi Baeza RN) 1012 (Given - Provider: Miguel A Vides LPN - Comment: patient was off unit for PT) insulin glargine-ygfn (Semglee) (100 unit/mL) subcutaneous injection vial 5 Units 5 Units, Subcutaneous, NIGHTLY, First dose on Sat02/28/24 at 2100, Until Discontinued, Routine 2056 (Given - Provider: Linsey Esquivel, MOISES) 2026 (Given - Provider: Linsey Esquivel, MOISES) insulin lispro (HumaLOG;Admelog) (100 unit/mL) subcutaneous injection [...] than 240 mg/dL in 2 hours., Routine 08 (Given - Provider: Dotty Burns RN - [...] on Sat02/25/24 at 0900, Until Discontinued, Routine 942 (Given - Provider: Dotty Burns RN)2054 (Given [...] Discontinued, DO NOT CRUSH OR OPEN, Routine 942 (Given - Provider: Dotty Burns RN) 09 (Given - Provider: Wendi Baeza RN) 101 (Given - Provider: Miguel A Pimental, CORE RESCUER - Comment: patient was off unit for PT) rosuvastatin (Crestor) tablet 40 mg 40 mg, Oral, EVERY EVENING, First dose on 02/25/24 at 1700, Until Discontinued, Routine 1624 (Given - Provider: Noemi Townsend RN) 1700 (Given - Provider: Wendi Baeza, RN) sacubitriL-valsartan (Entresto) 24-26 mg per tablet 1 tablet 1 tablet, Oral, 2 TIMES DAILY, First dose on Mary Beth 02/27/24 at 1000, Until Discontinued, Routine, Is this a continuation of home medication? Yes 0948 (Given - Provider: Dotty Burns RN)213 (Given - Provider: Linsey Esquivel, MOISES) 0905 (Given - Provider: Wendi Baeza RN)2025 (Given - Provider: Linsey Esquivel RN) 101 (Given - Provider: Miguel A Vides LPN - Comment: patient was off unit for PT) sodium chloride tablet 1 g 1 g, Oral, 3 TIMES DAILY, First dose on 02/29/24 at 0900, Until Discontinued, Routine 0954 (Given - Provider: Dotty Burns RN)162 (Given - Provider: Noemi Townsend RN)2055 (Given - Provider: Linsey Esquivel RN) 09 (Given - Provider: Wendi Baeza RN)161 (Given - Provider: Wendi Baeza RN)2025 (Given - Provider: Linsey Esquivel RN) 1012 (Given - Provider: Miguel A Vides LPN - Comment: patient was off unit for PT) PRN Medication Order 02/29/2024 03/01/2024 03/02/2024 acetaminophen (Tylenol) tablet 650 mg 650 mg, Oral, EVERY 4 HOURS PRN, Starting on 02/24/24 at 1859, Until Sat03/02/24 at 1612, Pain, [...] Routine documented in this encounter Care Teams Compensation And Benefits Administrator Relationship Specialty Start Date End Date Tamia Tsai PA [address] [place] [id number] PCP - General Family Medicine 02/18/24 documented as of this encounter
--- OUTSIDE RECORDS SUMMARY | 2024-03-26 15:52 | XMS_ITS | Encounter Summary ---
Author Organization [facility] Address [facility] Juan Miguel [facility] [place] [address] Care Team Providers Care Division Field Inspector Name Role Phone Ramiro Ball MD Primary Care Provider [phone] Encounter Details Date Type Department Care Team (Late st Contact Info) Description 05/17/2023 Orders Only Cardiology at [address] [phone] Everett Guthrie MD [facility] [place] [address] Coronary artery disease, unspecified vessel or lesion type, unspecified whether angina present, unspecified whether [place] or transplanted heart Social History Tobacco Use Types Packs/Day Years [...] 2:30 PM EST [place] [phone] Susanna Cm, INSTRUCTIONAL SYSTEMS SPECIALIST [facility] [place] [address] documented as of this encounter Visit Diagnoses Diagnosis Coronary artery disease, unspecified vessel or lesion type, unspecified whether angina present, unspecified whether [place] or transplanted heart documented in this encounter Care Teams Division Field Inspector Relationship Specialty Start Date End Date Ramiro Ball MD [address] [place] [address] PCP - General 06/06/10 02/17/24 documented as of this encounter
--- OUTSIDE RECORDS SUMMARY | 2024-03-26 15:52 | XMS_ITS | Encounter Summary ---
Author Organization [facility] Address [facility] [place] [address] Care Team Providers Care Field Auto Appraiser Name Role Phone Tamia Tsai Primary Care Provider [phone] Encounter Details Date Type Department Care Team (Late st Contact Info) Description 02/23/2024 Telephone Cardiology at [address] [address] Bryant Sher PA [facility] [place] [address] Social History Tobacco Use Types Packs/Day Years Used Date Smoking Tobacco: Never Smokeless Tobacco: Never Alcohol Use Standard Drinks/Week Comments Not Currently 0 (1 standard drink = 0.6 oz pur e alcohol) [facility] Utilities Answer Date Recorded In the past 12 months has e [employer], gas, oil, or water [employer] threatened to shut off services in your [...] any time in the past 12 m [facility], were you homeless or living in a fpc (including now)? No 02/24/2024 DH IPV Inpatient [...] encounter Miscellaneous Notes * Telephone Encounter - Bryant Sher PA - 02/23/2024 11:07 AM EDT Images from the original note were not included. Cardiology Access Note 02/23/2024 Johnson Tobar Initial Contact Date: 02/23/2024 Contact time: 11:07 AM Referring Referring Facility [facility] Referred by Ariel Omer MD [facility] Ciro Willis [facility] [phone] Past Medical History: CAD s/p CABGx3 MCKEON->LAD, Seq SVG->OM1->D1 and AVR 23 mm Inspriris bioprosthesis 06/13/2020 for severe , mid and proximal RCA PCI 06/2023, niddm2, HTN, HLP Brief History: Johnson Tobar is a 73 y.o. male presented at 9 AM for evaluation of chest pressure and presyncope. He awoke at 0630 with chest pressure and lightheadedness. Walked to bathroom w/ presyncope, lowered himsef to ground. CP intensity 8/10. Home took SL NTGx2 which reduced intensity to 5/10. No rad,no palp. Pain persisted for several hours and resolved in the ED without further intervention. He is currently chest pain-free. Initial troponin abnormal patient reports discomforts are reminiscent of prior angina and up until now he has not been using his sublingual nitroglycerin as no recent discomforts. Home meds include Ismn 30mg daily, plavix 75mg daily, asa 81mg daily, entresto 24/26mg daily, metoptart 100 bid, amlo 5 bid, rosuva 40 daily, ezetimibe 10, metformin 1000mg bid, glipizide 10mg daily. Vital sign: 105/66 - 74 - 20 - 95 RA - 36.2 Pertinent Diagnostic Findings: Labs: trop at 9:20am 125 (UNL 76), 7.5, hbg 12.6, pl142, inr 1.0, na 131, k 4.1, cr 1.28, bun 13, glucose 226. Cxr unremarkable. EKG: Sinus rhythm, 86 bpm, inferior infarct, ST depressions lead V3-6, I, and aVL more notable compared to 06/2023 tracing. Left heart cath: 06/26/2023- (brought back for [...] bpm. There is trace mitral regurgitation present. OSH Interventions: [id number], Heparin Assessment & Plan: Johnson Tobar is a 73 y.o. male w/ history of cad s/p cabg x3 (MCKEON->LAD, Seq SVG->OM1->D1) + AVR 23 mm Inspriris bioprosthesis for severe 06/13/2020, mid and proximal RCA PCI 3known residual left system disease of SVG to OM1-D1 occluded at origin and [place] significant calcific disease of ostial proximal left circumflex and ostial D1 with prior recommendations to consider intervention if anginal symptoms, niddm2, HTN, and HLP presents for evaluation of angina which started this morning and associated presyncope. Symptoms are reminiscent of prior remote angina before revascularization. Symptoms improved after sublingual nitroglycerin x 2 and is currently chest pain-free. EKG shows more prominent ST depressions and initial troponin is abnormal at 125 consistent with type I NSTEMI. Accepted for transfer. He has already been started on ACS therapies including heparininfusion, ASA load, clopidogrel (patient on outpatient DAPT), high intensity statin, beta-pb. Above recommendations were based on my discussion with above listed OSH provider. I have not personally interviewed or examined this patient. I encouraged them to contact us if there is any change insymptoms, decision- making, or further need for guidance in management. Bryant Sher PA-C Access Pager [phone] 02/23/2024 documented in this encounter Plan of Treatment Upcoming Encounters Date Type Department Care Team (Late st Contact Info) Description 08/27/2024 2:30 PM EST Office [place] [address] Susanna Cm, [facility] [place] [address] documented as of this encounter Visit Diagnoses Not on filedocumented in this encounter Care Teams Field Auto Appraiser Relationship Specialty Start Date End Date Tamia Tsai [place] [address] [place] [id number] PCP - General Family Medicine 02/18/24 documented as of this encounter
--- OUTSIDE RECORDS SUMMARY | 2024-03-26 15:52 | XMS_ITS | Encounter Summary ---
Author Organization [facility] [place] [address] Care Team Providers Care Business Owner/Engineer Name Role Phone Ramiro Ball MD Primary Care Provider [phone] Encounter Details Date Type Department Care Team (Latest Contact Info) Description 06/12/2023 9:11 AM EST - 06/12/2023 11:59 PM [facility] [place] [phone] Discharge Disposition: Home Social History Tobacco Use Types Packs/Day Years Used Date Smoking Tobacco: Never Smokeless Tobacco: Never Alcohol Use Standard Drinks/Week Comments Not Currently 0 (1 standard drink = 0.6 oz pur e alcohol) Sex and Gender Information Value Date Recorded Sex Assigned at Not on file Gender Identity Not on file Sexual Orientation Not on file documented as of this encounter Medications at Time of Discharge [...] ICD 10 E11.9 50 each 06/19/2020 03/21/2024 omeprazole (PriLOSEC) 20 mg Capsule, Delayed Release(E.C.) TAKE ONE CAPSULE BY MOUTH EVERY DAY 05/03/2020 03/02/2024 rosuvastatin (Crestor) 40 mg Tablet TAKE ONE TABLET BY MOUTH EVERY DAY 04/12/2020 03/21/2024 documented as of this encounter Plan of Treatment Upcoming Encounters Date Type Department Care Team (Late st Contact Info) Description 08/27/2024 2:30 PM EST Office [place] [phone] Susanna Cm APRN [facility] [place] [address] documented as of this encounter Visit Diagnoses Not on filedocumented in this encounter Care Teams Business Owner/Engineer Relationship Specialty Start Date End Date Ramiro Ball MD [address] [place] [address] PCP - General 06/06/10 02/17/24 documented as of this encounter
--- OUTSIDE RECORDS SUMMARY | 2024-03-26 15:52 | XMS_ITS | Encounter Summary ---
Author Organization [facility] [place] [address] Care Team Providers Care Digitizer Name Role Phone Ramiro Ball MD Primary Care Provider [phone] Reason for Visit * Auth/Cert (Routine) Specialty Diagnoses / Procedures Referred By Luca t Referred To Contact Diagnoses Encounter for screening for cardiovascular disorders Nonrheumatic aortic valve disorder, unspecified Atherosclerotic heart disease of [place] coronary artery without angina pectoris Screening for cardiovascular condition [Z13.6] Aortic valve disease [I35.9] ASCVD (arteriosclerotic cardiovascular disease) [I25.10] Procedures PRG CATH PLMT LEFT HEART CATH & ARTS W/INJ & ANGIO IMG S&I CARDIAC CATHETERIZATION CORONARY ANGIOGRAPHY; W LHC,POSSIBLE PCI (WRVU 5.6) Avani Danielle MD [facility] [place] [address] [facility] Referral ID Status Reason Start Date Expiration Date Visits Re quested Visits Authorized [id number] 1 1 Encounter Details Date Type Department Care Team (Late st Contact Info) Description 06/12/2023 11:00 AM EST - 06/12/2023 12:30 PM EST [place] [address] Avani Danielle MD [facility] [place] [address] CARDIAC CATHETERIZATION Social History Tobacco Use Types [...] 2:30 PM EST Office [place] [address] Susanna Cm, [facility] [address] Scheduled Orders Name Type Priority Associated Diagnoses Orde r Schedule Cardiac Catheterization Cardiac Cath Routine Coronary artery disease, unspecified vessel or lesion type, unspecified whether angina present, unspecified whether [place] or transplanted heart One Time for 1 Occurrences starting 05/17/2023 until 05/17/2023 documented as of this encounter Procedures Procedure Name Priority Date/Time Associated Diagnosis Comments BMP W/FASTING GLUCOSE STAT 06/12/2023 10:06 AM EST HEMOGRAM STAT 06/12/2023 10:06 AM EST DIFFERENTIAL, AUTOMATED STAT 06/12/2023 10:06 AM EST CBC (WITH DIFF) STAT 06/12/2023 10:06 AM EST documented in this encounter Results * Differential, Automated (06/12/2023 10:06 AM EST) Neutrophil % 62.7 % [facility] Neutrophil Absolute 4.25 1.70 - 6.10 x10(3)/[facility] Lymph % 21.4 % [facility] Lymphocytes Abs 1.4 0.9 - 3.2 x10(3)/[facility] Monocyte % 10.9 % [facility] Monocyte Abs 0.7 0.3 - 0.9 x10(3)/[facility] Eos % 2.8 % [facility] Eosinophils Abs 0.2 0.0 - 0.4 x10(3)/[facility] Basophil % 1.8 % [facility] Baso Absolute 0.1 0.0 - 0.1 x10(3)/[facility] Immature Gran % 0.40 % [facility] Comment: Immature granulocytes(IG's)percentage and absolute count will include metamyelocytes, myelocytes, and promyelocytes. Blood smears from CBCs yielding IG's will be scanned manually for concordance. If this scan disagrees with the automated IG or if promyelocytes are noted, a manual differential will be performed. Immature Gran Absolute 0.03 0.00 - 0.04 x10(3)/[facility] Blood 06/12/2023 10:0 6 AM EST 06/12/2023 10:16 AM EST Narrative Resulting Agency Comment Spec In Lab Everett Guthrie MD HEMATOLOGY ORDERABLE S Performing Organization Address City/State/[facility] Co de Phone Number [facility] [place] [address] * (ABNORMAL) Hemogram (06/12/2023 10:06 AM EST) White Blood Cell 6.8 4.0 - 9.5 x10(3)/mc L [facility] Red Blood Cell 4.67 4.58 - 5.54 x10(6)/mc L [facility] Hemoglobin 12.4(L) 13.7 - 16.5 g/dL [facility] Hematocrit 38.1(L) 40.5 - 48.5 % [facility] Mean Cell Volume 81.6(L) 82.9 - 93.1 fL [facility] Mean Cell Hemoglobin 26.6(L) 27.5 - 32.1 pg [facility] Mean Cell Hemoglobin Concentration 32.5 32.0 - 35.7 g/dL [facility] Platelet 181 145 - 357 x10(3)/mc L [facility] RDW Standard Deviation 48.7(H) 36.0 - 45.0 fL [facility] RDW coefficient of variation 16.6(H) 11.4 - 13.8 % [facility] Mean Platelet Volume 11.7 7.6 - 12.9 fL [facility] NRBC% auto 0.0 % [facility] NRBC Absolute 0.000 0.000 - 0.000 x10(3)/mc L [facility] Blood 06/12/2023 10:0 6 AM EST 06/12/2023 10:16 AM EST Narrative Resulting Agency Comment Spec In Lab Everett Guthrie MD HEMATOLOGY ORDERABLE S [facility] [place] [address] * (ABNORMAL) BMP w/fasting Glucose (06/12/2023 10:06 AM EST) Glucose Fasting 152(H) 65 - 99 mg/dL [facility] Comment: ?Fasting* Glucose Interpretive Criteria Normal ?65-99 mg/dL Impaired Fasting glucose ?100-125 mg/dL Consistent with Diabetes Mellitus ? >or= 126 mg/dL *Fasting is defined as no caloric intake for at least 8 hours In the absence of unequivocal hyperglycemia a plasma glucose value of >or= 126 mg/dL should be repeated on a subsequent day. Diagnosis and Classification of Diabetes Mellitus, Position Statement from the [place] [employer] Association. ??Diabetes Care, Volume 33, Supplement 1, Jul 2009 Blood Urea Nitrogen 12 10 - 20 mg/dL [facility] Creatinine 0.99 0.80 - 1.50 mg/dL [facility] Sodium 137 135 - 145 mmol/L [facility] Potassium 4.9 3.5 - 5.0 mmol/L [facility] Comment: Please note: ??Patients with WBC >100,000 may have falsely elevated Potassium levels. ??For accurate Potassium quantification in these patients send serum separator tube (gold top) for subsequent determinations. ??Contact the Clinical Chemistry Laboratory if there are any questions. Chloride 99 98 - 107 mmol/L [facility] Carbon Dioxide 26 22 - 31 mmol/L [facility] Anion Gap 12 5 - 15 mmol/L [facility] Calcium 9.7 8.5 - 10.5 mg/dL [facility] Est Glomerular Filtration Rate 80 >=60 mL/min/1. 73 m?? [facility] Comment: This patient's estimated GFR was [...] and symptoms in addition to eGFR. Blood 06/12/2023 10:0 6 AM EST 06/12/2023 10:16 AM EST Narrative Resulting Agency Comment Spec In Lab Avani Onofre MD CHEMISTRY ORDERABLE S [facility] [place] [phone] documented in this encounter Visit Diagnoses Diagnosis Coronary artery disease, unspecified vessel or lesion type, unspecified whether angina present, unspecified whether [place] or transplanted heart documented in this encounter Additional Health Concerns Infection Onset Date Last Indicated Resolved Time Rule Out Respiratory 03/17/2024 03/18/2024 024 1:29 AM EDT Rule Out COVID-19 03/17/2024 03/18/2024 03/18/2024 1:29 AM EDT documented as of this encounter Care Teams Digitizer Relationship Specialty Start Date End Date Ramiro Ball MD [address] [place] [address] PCP - General 06/06/10 02/17/24 documented as of this encounter
--- OUTSIDE RECORDS SUMMARY | 2024-03-26 15:52 | XMS_ITS | Encounter Summary ---
Author Organization [facility] Address [facility] [place] [address] Care Team Providers Care Lead Machinist Name Role Phone Ramiro Ball MD Primary Care Provider [phone] Reason for Referral * Consultation (Routine) - Closed Specialty Diagnoses / Procedures Referred By Luca beltran Referred To Contact Cardiology Diagnoses S/P coronary artery stent placement Avani Danielle MD [facility] [address] [place] [address] Cardiac Rehab, [address] [place] [address] Referral ID Status Reason Start Date Expiration Date V isits Requested Visits Authorized [id number] Closed Consult, Test & Treat 06/27/2023 12/24/2023 36 36 Reason for Visit * Auth/Cert (Routine) Specialty Diagnoses / Procedures Referred By Luca beltran Referred To Contact Diagnoses Encounter for screening for cardiovascular disorders Atherosclerotic heart disease of gambell coronary artery without angina pectoris Screening for cardiovascular condition [Z13.6] ASCVD (arteriosclerotic cardiovascular disease) [I25.10] Coronary artery disease, unspecified vessel or lesion type, unspecified whether angina present, unspecified whether gambell or transplanted heart [I25.10] Procedures PRG CATH PLMT LEFT HEART CATH & ARTS W/INJ & ANGIO IMG S&I PRO PERC TRLUML CORONARY STENT W/ANGIO ONE ART/BRANCH PRO PERC TRLUML CORONARY STENT W/ANGIO ADDL ART/BRANCH CARDIAC CATHETERIZATION CORONARY ANGIOGRAPHY; W LHC,POSSIBLE PCI (WRVU 5.6) STENT PLACEMENT-SINGLE MAJOR CORONARY ARTERY OR BRANCH (WRVU 10.96) STENT PLACEMENT-EACH ADDITIONAL BRANCH OF A MAJOR CORONARY ARTERY (WRVU *) Avani Danielle MD [facility] [address] [place] [address] [facility] Referral ID Status Reason Start Date Expiration Date Visits Re quested Visits Authorized [id number] 1 1 Encounter Details Date Type Department Care Team (Latest Contact Info) Description 06/26/2023 6:58 AM EST - 06/27/2023 9:32 AM EST Hospital Encounter [place] [id number] Avani Danielle MD [facility] [place] [address] [place] [address] Screening for cardiovascular condition; ASCVD (arteriosclerotic cardiovascular disease); Coronary artery disease, unspecified vessel or lesion type, unspecified whether angina present, unspecified whether gambell or transplanted heart; S/P coronary artery stent placement Discharge Disposition: Home Social History Tobacco Use Types Packs/Day Years Used Date Smoking Tobacco: Never Smokeless Tobacco: Never Alcohol Use Standard Drinks/Week Comments Not Currently 0 (1 standard drink = 0.6 oz pur e alcohol) DH IPV Inpatient Questions Answer Date Recorded Does Anyone Try to Keep You From Having Contact with Others or Doing Things Outside Your Home? no 06/26/2023 Feels Threatened by Someone no 06/14 Feels Unsafe at Home or Work/School no 06/26/2023 Physical Signs of Abuse Present no 06/26/2023 Sex and Gender Information Value Date Recorded Sex Assigned at Not on file Gender Identity Not on file Sexual Orientation Not on file documented as of this encounter Last Filed Vital Signs Vital Sign Reading Time Taken Comments Blood Pressure 155/80 06/27/2023 8:00 AM EST Pulse 67 06/27/2023 7:21 AM EST Temperature 36.8 ??C (98.2 ??F) 06/27/2023 7:21 AM ES T Respiratory Rate 16 06/27/2023 7:21 AM EST Oxygen Saturation 97% 06/27/2023 7:21 AM EST Inhaled Oxygen Concentration - - Weight 78 kg (171 lb 14.4 oz) 06/26/2023 7:48 AM EST Height 170.2 cm (5' 7.01) 06/26/2023 7:48 AM ES T Body Mass Index 26.92 06/26/2023 7:48 AM EST documented in this encounter Discharge Summaries * Everett Guthrie MD - 06/27/2023 7:04 AM EST Images from the original note were not included. Discharge Summary Patient Name: Johnson Tobar Patient Age: 72 y.o. Language: Telugu Race: White Ethnicity: Not nor Admit date: 06/26/2023 Discharge date and time: 06/27/2023 Attending Physician: Avani Onofre MD Follow-up Recommendations for Providers: - Patient should be on dual antiplatelet therapy with aspirin 81 mg daily indefinitely and plavix 75 mg daily for at least 6 months. - There is residual left sided disease (D1 and LCX) which would recommend medical management for. If he has uncontrolled symptoms we can bring back for further intervention. - Continue with regular cardiac care with Dr. Lackey. Inpatient Provider Contact Information: For questions regarding this document or issues relating to this hospitalization on the Medical Service, please contact your inpatient physician through the [facility] [employer] Plumbing Supervisor . Issues afterhours and on weekends will be handled by the immigration guard on-call. Discharge Diagnoses (Hospital Problems) and Secondary Diagnoses (Chronic Problems): Active Hospital Problems Diagnosis CAD (coronary artery disease) Resolved Hospital Problems No resolved problems to display. Active Non-Hospital Problems Diagnosis Type 2 diabetes mellitus, without long-term current use of insulin S/P CABG (coronary artery bypass graft) S/P AVR (aortic valve replacement) Aortic valve stenosis Type 2 diabetes mellitus ASCVD (arteriosclerotic cardiovascular disease) HTN (hypertension) DJD (degenerative joint disease) Elevated cholesterol Aortic stenosis Operations/Major Procedures: Case Date: 06/26/2023 Surgeon: Surgeon(s) and Role: * Avani Danielle MD - Primary * Everett Guthrie MD - Fellow - Assisting * Jeana Stack MD - Fellow - Assisting Preoperative diagnosis: ASCVD Postoperative diagnosis: ASCVD Preliminary Cardiac Catheterization Procedure Note: Procedure(s) performed: Right Radial Access - 6 Slender Right Femoral Access ultrasound guided - 7 [place] Right Femoral Vein ultrasound guided - 5 cordis Coronary Angiography PCI-Stent IVUS Mechanical Atherectomy - Rotablator Preliminary findings: Femoral Angio: Insertion site in the mid common femoral artery Coronary Angiography: Anatomically normal right dominant circulation LMCA: Not injected LAD: Not injected LCx: Not injected RCA: 70% proximal, 95% mid vessel disease, 40% ostial disease all highly calcified Contrast: 147 ccs Case Details: A time-out was conducted prior to the start of the procedure to verify the correct patient and procedure, procedure location, and all relevant critical information. The patient was prepped and drapedin the usual fashion. Right radial access was obtained with Seldinger technique and a 6 slender sheath. Right femoral Access was obtained with ultrasound guidance micropuncture technique with a 7 pinnacle sheath. Right femoral vein access was obtained with a 5 cordis sheath. Coronary angiography was performed of the right coronary system in multiple projections. We initially attempted intervention of the right coronary with right radial access. We went up witha MAC 3.0 30 catheter and wired the distal RCA with a Matt black. We were unable to pass a Pascal balloon past the mid vessel lesion, we are also unable to pass a microcatheter with a Corsair access tothe distal vessel. We brought the Corsair to to the mid vessel and then exchanged out for a Rotafloppy wire to the distal vessel. Due to subclavian tortuosity were unable to pass a 1.5 Rota juliet, we brought in a 6 Moroccan guide liner through which a 1.5 Rota bur was unable to pass. We attempted to pass a 1.25 Rota juliet which also was unable to pass to the distal vessel. At this point we attempted to pass a 1.5 Rota juliet with the guide liner out of the vessel and all of our equipment was expelledinto the aorta. At this point we attempted to upsize the radial catheter to a 7 Moroccan system but were unable to put a 7 slender sheath. We then obtained right femoral access with a 7 [place] sheath. We brought a 7 Moroccan AL-1 guide catheter to the RCA. We placed a 7 Moroccan guide liner and rewiredthe RCA with a Rotafloppy wire. We then performed multiple passes with a 1.5 Rota juliet with excellent modification of the calcium was noted on IVUS. We passed a 3.0 NC balloon which had good expansion throughout the vessel. We then used IVUS guidance to place a 3.0 x 38 mm Synergy VIOLET to the mid RCA and a 4.0 x 16 mm Synergy VIOLET to the proximal RCA. We performed post dilation with a 4.0 stent balloon followed by a 5.0 x 6 NC balloon to the proximal vessel. There was excellent angiographic result and we removed all of our equipment and Perclose the right femoral artery. Pre/Post: Conclusion: - Successful PCI of the proximal to mid RCA with overlapping 4.0 x 16 mm Synergy and 3.0 x 38 mm Synergy VIOLET. - Continue with DAPT for 6 months. Continue ASA for life. - Follow-up with Dr. Lackey, can consider revascularization of the left system in the future if driven by symptoms, however it will be complex and would need to fail medical therapy first. - The patient tolerated the procedure well and was transferred from the cardiac catheterization labin stable condition without apparent complications. History of Presentation: 72 y.o. male presents for planned PCI. He has felt well since his last cath with no angina with ambulation. The most active thing he has done is to walk. He notes that he would probably have symptoms if he pressed himself further. He has no other issues. Johnson Tobar has not observed fevers, chills or substantive changes in health since the pre-catheterization clinic visit. Hospital Course: Patient was admitted to same day after undergoing cardiac catheterization. male is s/p PCI to RCA with good result. Post procedure hospital course was uneventful. male received IVF. There were no post procedure access site problems. Patient given instructions for follow up. Vital Signs at Discharge: BP: 114/84, Heart Rate: 82, Temp: 36.6 ??C (97.9 ??F), Resp: 18, BMI (Calculated): 26.91 Height: 170.2 cm (5' 7.01) (06/26/23747) Weight: 78 kg (171 lb 14.4 oz) (06/26/23747) Functional and Cognitive Status: Patient is at baseline functional and cognitive status Important Studies and Lab Data: Labs: Last 3 wbc, hgb, hct plt Recent Labs 06/12/23 1006 05/17/23 1031 WBC 6.8 9.0 HGB 12.4* 13.3* HCT 38.1* 41.2 PLATELET 181 167 Last 3 Lytes Recent Labs 06/12/23 1006 05/17/23 1031 NA 137 135 K 4.9 4.5 CL 99 99 CO2 26 23 BUN 12 18 CREATININE 0.99 1.20 Pending Studies and Lab Data: None Discharge Conditions/Prognosis: Stable for discharge home Discharge to: Home Updated Allergies/ADRs: Allergies Allergen Reactions Lisinopril Other (See Comments) Immunizations Given this Hospitalization: Immunization History Administered Date(s) Administered Moderna Covid-19 Monovalent 12Yr+ (Winding Machine Operator 100mcg) 09/15/2020, 10/13/2020 Discharge Medications: Your Medications Continued medications, unchanged Dose Details acetaminophen 500 mg tablet Commonly known as: Tylenol Take 2 tablets by mouth every 6 hours as needed for Pain. 1,000 mg Quantity: 60 tablet Refills: 1 amLODIPine 5 mg tablet [...] 75 mg Quantity: 90 tablet Refills: 3 dextromethorphan-guaiFENesin 10-100 mg/5 mL Syrup Commonly known as: Robitussin Take 5 mLs by mouth 4 times daily as needed for Cough. 5 mL Refills: 0 Entresto 24-26 mg tablet Take by mouth 2 times daily. Generic drug: sacubitriL-valsartan Refills: 0 glipiZIDE XL 10 mg ER 24 hr tablet Commonly known as: Glucotrol XL TAKE 1 TABLET BY MOUTH ONCE DAILY Refills: 0 Jardiance 25 mg tablet Take 25 mg by mouth daily. Generic drug: empagliflozin 25 mg Refills: 0 metFORMIN 1,000 mg tablet Commonly known as: Glucophage TAKE ONE TABLET BY MOUTH TWICE A DAY Refills: 0 metoprolol tartrate 100 mg tablet Commonly known as: Lopressor Take 1 tablet by mouth 2 times daily. 100 mg Quantity: 60 tablet Refills: 1 multivitamin Tablet Commonly known as: THERAGRAN Take 1 tablet by mouth daily. 1 tablet Refills: [address] capsule Commonly known as: PriLOSEC TAKE ONE CAPSULE BY MOUTH EVERY DAY Refills: 0 Ozempic 0.25 mg or 0.5 mg (2 mg/3 mL) Pen Injector Inject 0.5 mg subcutaneously. Generic drug: semaglutide 0.5 mg Refills: 0 rosuvastatin 40 mg tablet Commonly known as: Crestor TAKE ONE TABLET BY MOUTH EVERY DAY Refills: 0 Smoking Status at Discharge: Social History Tobacco Use Smoking Status Never Smokeless Tobacco Never Instructions Given to Patient at Discharge: There are no outpatient Patient Instructions on file for this admission. General Instructions None Future Appointments and Orders Future Orders Complete By Expires Referral to Cardiac Rehab [IOY331 Custom] As directed Process Instructions: If no progress note charted, please enter Clinical details in comments. Scheduling Instructions: Questions: My question or request is: s/p PCI to RCA Discharge References/Attachments None documented in this encounter Discharge Instructions * Attachments The following attachments cannot be sent through Care Everywhere. * PCI (Percutaneous Coronary Intervention): Post-op (Telugu) documented in this encounter Medications at Time [...] as of this encounter Progress Notes * Hailey Heller RN - 06/27/2023 8:00 AM EST [facility] Short Stay Unit Discharge Note All relevant discharge milestones have been met by the patent. After Visit Summary and discharge teaching reviewed with the patient and a family member. IV access has been discontinued. All personal belongings have been returned to the patient/family upon their departure from the unit. Patient has been discharged to home The patient has been discharged without VNA services. R radial site and groin site C/D/I with dressings. No drainage noted, soft, no hematoma. Mild bruising at sites. Educated completed on site care/restrictions. Pt and report understanding and aretaking home educational materials. documented in this encounter H&P Notes * Everett Guthrie MD - 06/26/2023 12:53 PM EST Interventional Cardiology Post-PCI H&P Reason for Admission: s/p PCI History: 72 y.o. male presents for planned PCI. He has felt well since his last cath with no angina with ambulation. The most active thing he has done is to walk. He notes that he would probably have symptoms if he pressed himself further. He has no other issues. Johnson Tobar has not observed fevers, chills or substantive changes in health since the pre-catheterization clinic visit. This patient is admitted post PCI for IV hydration, pain management, access site management in the setting of anticoagulation, telemetry monitoring, evaluation of their medical condition, and cardiacrehabilitation. PMH: Patient Active Problem List Diagnosis CAD (coronary artery disease) Type 2 diabetes mellitus, without long-term current use of insulin S/P CABG (coronary artery bypass graft) S/P AVR (aortic valve replacement) Aortic valve stenosis Added automatically from request for surgery [id number] Type 2 diabetes mellitus ASCVD (arteriosclerotic cardiovascular disease) Status post stenting to his LAD over 11 years ago. LV function normal. No angina. HTN (hypertension) DJD (degenerative joint disease) Elevated cholesterol Aortic stenosis No change on echo. Valve area 1.4 cm squared. LV function normal. No other significant valve disease. PA pressure slightly up at 41. Echo 03/11/2020: EF 65%; TOBI 0.8; pV 5.0; mean Gr 57; PASP 35-45; Trivial AI/MR Outpatient Medications Marked as Taking for the 06/26/23 encounter (Hospital Encounter) Medication Sig Dispense Refill aspirin EC 81 mg EC (DR) tablet Take 81 mg by mouth daily. amLODIPine (Norvasc) 5 mg tablet Take 5 mg by mouth 2 times daily. clopidogreL (Plavix) 75 mg tablet Take 1 tablet by mouth daily. 90 tablet 3 sacubitriL-valsartan (Entresto) 24-26 mg tablet Take by mouth 2 times daily. multivitamin (THERAGRAN) Tablet Take 1 tablet by mouth daily. metoprolol tartrate (Lopressor) 100 mg Tablet Take 1 tablet by mouth 2 times daily. 60 tablet 1 blood sugar diagnostic strips Strip Twice daily. [...] TAKE ONE TABLET BY MOUTH EVERY DAY Allergies as of 06/14/2023 - Review Complete 06/11/2023 Allergen Reaction Noted Lisinopril Other (See Comments) 05/20/2023 Social History Socioeconomic History Marital status: Spouse name: Not on file Number of children: Not on file Years of education: Not on file Highest education level: Not on file Occupational History Not on file Tobacco Use Smoking status: Never Smokeless tobacco: Never Vaping Use Vaping Use: Never used Substance and Sexual Activity Alcohol use: Not Currently Drug use: Never Sexual activity: Not on file Other Topics Concern Not on file Social History Narrative Not on file Social Determinants of Health Financial Resource Strain: Not on file Food Insecurity: Not on file Transportation Needs: Not on file Physical Activity: Not on file Intimate Partner Violence: Not on file Housing Stability: Not on file History reviewed. No pertinent family history. Physical Exam BP 114/84 (BP Location (NBP): Left arm, Patient Position: Lying) Pulse 82 Temp 36.6 ??C (97.9 ??F) (Oral) Resp 18 Ht 170.2 cm (5' 7.01) Wt 78 kg (171 lb 14.4 oz) SpO2 97% BMI 26.92 kg/m?? General: well-appearing, NAD HEENT: NC/AT, anicteric sclerae, OP clear, MMM Neck: supple, no LAD, no bruits or JVD Lungs: clear without W/R/R CV: RRR, S1, S2, no M/R/G Abd: Nl BS, soft, NT, ND, obese Ext: no C/C/Edema Vascular: 2+ radial, femoral, and intact distal pulses b/l Dressing intact at R groin Assessment/ Plan: 1. CAD, s/p PCI to RCA - admit for overnight monitoring - telemetry, serial ECGs, - continue dual antiplatelet therapy - IVF - continue BB, ACEi, statin - monitor access site - cardiac rehab consult - anticipate discharge in am 2. HTN, follow up trend and titrate therapy PRN. 3. Dyslipidemia, continue statin 4. DM, orals held, SSI. Everett Guthrie MD 06/27/2023 7:03 AM * Everett Guthrie MD - 06/26/2023 7:31 AM EST Images from the original note were not included. Patient Name: Johnson Tobar Patient Age: 72 y.o. Birthdate: 1950 Admit date: 06/26/2023 Attending Physician: Avani Onofre MD Patient Information: Patient Name: Johnson Tobar PCP: Ramiro Ball MD PCP Referring Termite Technician: Joseph Lackey MD Reason for Referral: Angina Brief History: 72 y.o. male presents for planned PCI. He has felt well since his last cath with no angina with ambulation. The most active thing he has done is to walk. He notes that he would probably have symptomsif he pressed himself further. He has no other issues. Johnson Tobar has not observed fevers, chills or substantive changes in health since the pre-catheterization clinic visit. No planned upcoming surgeries. No recent or ongoing bleeding events. No black stools. Aspirin status: Took this AM P2Y12 status: Took plavix last night Outpatient Medications Marked as Taking for the 06/26/23 encounter (Hospital Encounter) Medication Sig Dispense Refill aspirin EC 81 mg EC (DR) tablet Take 81 mg by mouth daily. amLODIPine (Norvasc) 5 mg tablet Take 5 mg by mouth 2 times daily. clopidogreL (Plavix) 75 mg tablet Take 1 tablet by mouth daily. 90 tablet 3 sacubitriL-valsartan (Entresto) 24-26 mg tablet Take by mouth 2 times daily. multivitamin (THERAGRAN) Tablet Take 1 tablet by mouth daily. metoprolol tartrate (Lopressor) 100 mg Tablet Take 1 tablet by mouth 2 times daily. 60 tablet 1 blood sugar diagnostic strips Strip Twice daily. [...] TAKE ONE TABLET BY MOUTH EVERY DAY There were no vitals taken for this visit. PE NAD CV: RR, no M/R/G, JVP estimated @ cm H2O Pulm: CTAB, no w/r/r Abd: soft, NT, ND, +BS, no bruits Vasc: radial pulses 2+, femoral pulses 2+ w/o bruits, DP/PT pulses 2+. Extr: warm, 2+ edema ASA: 2: Patient with mild systemic disease Mallampati: II: tonsillar pillars are blocked by the tongue Last 3 wbc, hgb, hct plt Recent Labs 06/12/23 1006 05/17/23 1031 WBC 6.8 9.0 HGB 12.4* 13.3* HCT 38.1* 41.2 PLATELET 181 167 Last 3 Lytes Recent Labs 06/12/23 1006 05/17/23 1031 NA 137 135 K 4.9 4.5 CL 99 99 CO2 26 23 BUN 12 18 CREATININE 0.99 1.20 Tests: EKG: pending Echocardiogram: Previous Catheterization: 05/17/2023 High-grade mid-RCA lesion balloon uncrossable High-grade ostial and mid LCX disease. High-grade ostial OM1 and OM2 (Jump graft patent from D1 to OM1, proximal limb is occluded) High grade ostial D1 and mid LAD (patent MCKEON - distal LAD) The nature of the procedures and attendant risks as outlined on the consent form were discussed in detail with the patient. The patient was given an opportunity to ask questions and these were answered; The patient agrees to proceed. Code status: FULL. Plan: Coronary Angio via femoral No C/I to long-term DAPT Moderate Sedation OK Everett Guthrie MD 06/26/2023 documented in this encounter Miscellaneous Notes * Consult Note - Beronica Fry RN - 06/26/2023 3:59 PM EST Johnson Tobar was seen today by Cardiac Rehabilitation for: SD/PCI Activity evaluation - Still on bedrest. To be done by SSU team when medically appropriate. Johnson had has known CAD with prior CABG in 2022. Today was a planned PCI to his RCA. He participated in cardiac rehab after his CABG at [facility] and enjoyed it. He has a stationary bike at home but has not been using it lately due to sx. He carries NTG and understands how to use it. Participation in an outpatient cardiac rehabilitation program at [facility] was discussed. He agrees to another referral to this program. The referral will be sent at discharge and the patient should be contacted by the Program within 1- 2 weeks from discharge. * Brief Op Note - Everett Guthrie MD - 06/26/2023 1:30 PM EST Images from the original note were not included. Brief Operative Note Patient Name: Johnson Tobar : [id number] MR#: [id number] Case Date: 06/26/2023 Surgeon: Surgeon(s) and Role: * Avani Danielle MD - Primary * Everett Guthrie MD - Fellow - Assisting * Jeana Stack MD - Fellow - Assisting Preoperative diagnosis: ASCVD Postoperative diagnosis: ASCVD Preliminary Cardiac Catheterization Procedure Note: Procedure(s) performed: Right Radial Access - 6 Slender Right Femoral Access ultrasound guided - 7 [place] Right Femoral Vein ultrasound guided - 5 cordis Coronary Angiography PCI-Stent IVUS Mechanical Atherectomy - Rotablator Preliminary findings: Femoral Angio: Insertion site in the mid common femoral artery Coronary Angiography: Anatomically normal right dominant circulation LMCA: Not injected LAD: Not injected LCx: Not injected RCA: 70% proximal, 95% mid vessel disease, 40% ostial disease all highly calcified Contrast: 147 ccs Case Details: A time-out was conducted prior to the start of the procedure to verify the correct patient and procedure, procedure location, and all relevant critical information. The patient was prepped and drapedin the usual fashion. Right radial access was obtained with Seldinger technique and a 6 slender sheath. Right femoral Access was obtained with ultrasound guidance micropuncture technique with a 7 pinnacle sheath. Right femoral vein access was obtained with a 5 cordis sheath. Coronary angiography was performed of the right coronary system in multiple projections. We initially attempted intervention of the right coronary with right radial access. We went up witha MAC 3.0 30 catheter and wired the distal RCA with a Matt black. We were unable to pass a Pascal balloon past the mid vessel lesion, we are also unable to pass a microcatheter with a Corsair access tothe distal vessel. We brought the Corsair to to the mid vessel and then exchanged out for a Rotafloppy wire to the distal vessel. Due to subclavian tortuosity were unable to pass a 1.5 Rota juliet, we brought in a 6 Moroccan guide liner through which a 1.5 Rota bur was unable to pass. We attempted to pass a 1.25 Rota juliet which also was unable to pass to the distal vessel. At this point we attempted to pass a 1.5 Rota juliet with the guide liner out of the vessel and all of our equipment was expelledinto the aorta. At this point we attempted to upsize the radial catheter to a 7 Moroccan system but were unable to put a 7 slender sheath. We then obtained right femoral access with a 7 [place] sheath. We brought a 7 Moroccan AL-1 guide catheter to the RCA. We placed a 7 Moroccan guide liner and rewiredthe RCA with a Rotafloppy wire. We then performed multiple passes with a 1.5 Rota juliet with excellent modification of the calcium was noted on IVUS. We passed a 3.0 NC balloon which had good expansion throughout the vessel. We then used IVUS guidance to place a 3.0 x 38 mm Synergy VIOLET to the mid RCA and a 4.0 x 16 mm Synergy VIOLET to the proximal RCA. We performed post dilation with a 4.0 stent balloon followed by a 5.0 x 6 NC balloon to the proximal vessel. There was excellent angiographic result and we removed all of our equipment and Perclose the right femoral artery. Pre/Post: Conclusion: - Successful PCI of the proximal to mid RCA with overlapping 4.0 x 16 mm Synergy and 3.0 x 38 mm Synergy VIOLET. - Continue with DAPT for 6 months. Continue ASA for life. - Follow-up with Dr. Lackey, can consider revascularization of the left system in the future if driven by symptoms, however it will be complex and would need to fail medical therapy first. - The patient tolerated the procedure well and was transferred from the cardiac catheterization labin stable condition without apparent complications. Full report to follow. documented in this encounter Plan of Treatment Upcoming Encounters Date Type Department Care Team (Late st Contact Info) Description 08/27/2024 2:30 PM EST Office [place] [address] Susanna Cm APRN [facility] [place] [address] Scheduled Referrals Name Type Priority Associated Diagnoses Orde r Schedule Referral to Cardiac Rehab Outpatient Referral Routine S/P coronary artery stent placement Ordered: 06/27/2023 documented as of this encounter Procedures Procedure Name Priority Date/Time Associated Diagnosis Comments POCT GLUCOSE Routine 06/27/2023 6:42 AM EST POCT GLUCOSE Routine 06/26/2023 9:17 PM EST POCT GLUCOSE Routine 06/26/2023 4:43 PM EST EKG 12-LEAD Routine 06/26/2023 1:17 PM EST ASCVD (arteriosclerotic cardiovascular disease) POCT GLUCOSE Routine 06/26/2023 1:13 PM EST CARDIAC CATHETERIZATION Routine 06/26/2023 12:55 PM EST Screening for cardiovascular condition ASCVD (arteriosclerotic cardiovascular disease) Coronary artery disease, unspecified vessel or lesion type, unspecified whether angina present, unspecified whether gambell or transplanted heart Perc Trluml Coronary Stent W/Angio Addl Art/Branch ([id number]) 06/26/2023 9:06 AM EST Screening for cardiovascular condition ASCVD (arteriosclerotic cardiovascular disease) Coronary artery disease, unspecified vessel or lesion type, unspecified whether angina present, unspecified whether gambell or transplanted heart Perc Trluml Coronary Stent W/Angio One Art/Branch([id number]) 06/26/2023 9:06 AM EST Screening for cardiovascular condition ASCVD (arteriosclerotic cardiovascular disease) Coronary artery disease, unspecified vessel or lesion type, unspecified whether angina present, unspecified whether gambell or transplanted heart Cath Plmt Left Heart Cath & Arts W/Inj & Angio Img S&I ([id number]) 06/26/2023 9:06 AM EST Screening for cardiovascular condition ASCVD (arteriosclerotic cardiovascular disease) Coronary artery disease, unspecified vessel or lesion type, unspecified whether angina present, unspecified whether gambell or transplanted heart POCT GLUCOSE Routine 06/26/2023 8:11 AM EST documented in this encounter Results * POCT Glucose (06/27/2023 6:42 AM EST) Glucose, POC 121 65 - 199 mg/dL [facility] Comment: Supplemental ranges: <140 mg/dL before meals <180 mg/dL all other times of the day Blood 06/27/2023 6:42 AM EST 06/27/2023 6:42 AM EST Avani Onofre MD POINT OF CARE TEST ORDERABLES [facility] [place] [address] * POCT Glucose (06/26/2023 9:17 PM EST) Glucose, POC 134 65 - 199 mg/dL [facility] Comment: Supplemental ranges: <140 mg/dL before meals <180 mg/dL all other times of the day Blood 06/26/2023 9:17 PM EST 06/26/2023 9:17 PM EST Avani Onofre MD POINT OF CARE TEST ORDERABLES Performing Organization Address City/[facility] Co de Phone Number [facility] [place] [address] * POCT Glucose (06/26/2023 4:43 PM EST) Glucose, POC 99 65 - 199 mg/dL [facility] Comment: Supplemental ranges: <140 mg/dL before meals <180 mg/dL all other times of the day Blood 06/26/2023 4:43 PM EST 06/26/2023 4:43 PM EST Avani Onofre MD POINT OF CARE TEST ORDERABLES Performing Organization Address City/[facility] Co de Phone Number [facility] [place] [address] * EKG 12 Lead (06/26/2023 1:17 PM EST) Ventricular rate 76 BPM MUSE SYSTEM Atrial Rate 76 BPM MUSE SYSTEM P-R Interval 136 ms MUSE SYSTEM QRS Duration 82 ms MUSE SYSTEM Q-T Interval 408 ms MUSE SYSTEM QTC Calculated (Bezet) 459 ms MUSE SYSTEM Calculated P [place] 35 degrees MUSE SYSTEM Calculated R [place] -2 degrees MUSE SYSTEM Calculated T [place] -43 degrees MUSE SYSTEM INTERPRETATION Normal sinus rhythm Inferior infarct (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-2020) Abnormal ECG When compared with ECG of 17-MAY-2023 12:00, Premature atrial complexes are no longer Present Serial changes of Inferior infarct Present Confirmed by MD Jessica, Ebenezer ([id number]) on 06/27/2023 7:49:05 AM MUSE SYSTEM 06/26/2023 1:17 PM EST 06/27/2023 7:49 AM EST Avani Onofre MD ECG ORDERABLES MUSE SYSTEM * POCT Glucose (06/26/2023 1:13 PM EST) Glucose, POC 139 65 - 199 mg/dL [facility] Comment: Supplemental ranges: <140 mg/dL before meals <180 mg/dL all other times of the day Blood 06/26/2023 1:13 PM EST 06/26/2023 1:13 PM EST Avani Onofre MD POINT OF CARE TEST ORDERABLES Performing Organization Address City/[facility] Co de Phone Number [facility] [place] [address] * CARDIAC CATHETERIZATION (06/26/2023 12:55 PM EST) Anatomical Region Laterality Modality Other Narrative 06/26/2023 4:32 PM EST ?[facility] ? Cardiac Catheterization/Intervention Report ? Patient Name: Ekaterina, Johnson R. ? Procedure Date: 06/26/2023 ? A #: [id number] ? Primary Physician: Avani Danielle I ? Case #: [id number] ? File Name: [id number] ? Catheterization Order Number: [id number] ? [facility] ? Final Report [place], [place] ? Patient Name: ? Johnson R. Ekaterina ? ID#: ?[id number] ? : ?1950 ? Procedure Date: ? June 26, 2023 ?Case #: ? [id number] ? Room: ? 2 ? Case Physician: ? Avani Danielle M.D. ? Start: ?09:33 ?Fellow: ? Everett Guthrie M.D. ?Admission: ??06/26/2023 ?Jeana Stack M.D. ? Discharge: ??06/27/2023 ? Procedures: ?* Coronary Angiography ?* Coronary Ultrasound ?* Coronary Atherectomy ?* Coronary Stent Insertion ?* Vascular Closure Device Deployment ?* Access Site Angiography ?* Vascular Ultrasound ? History ?Johnson Tobar is a 72 year old man. He has hypertension and a family ?history of coronary artery disease. The patient's smoking status is ?Never. He has hypercholesterolemia managed by diet and lipid therapy. The ?patient has diabetes managed by diet and oral medication. He has a prior ?history of coronary artery disease. The patient had remote coronary ?artery bypass surgery. He also has a history of pulmonary hypertension. ?Prior to the initiation of this procedure, the patient was designated as ?ASA Class III. The [facility] clinical frailty scale is 4: Vulnerable. ? Diagnostic Tests: ?Prior Coronary Angiography: ? Prior coronary angiography was performed on 05/17/2023 and showed ? obstructive CAD. LV ejection fraction within 6 months is 65%. ?Electrocardiography: ? EKG was assessed by ECG. EKG was Abnormal. EKG showed T-wave ? inversions, ST Deviation >= 0.5 mm and other abnormality. ?Medications Prior to Procedure: ? Sacubitril and Valsartan, Aspirin, Beta Estee, Calcium Channel ? Blocking Agent and Statin. ? Indications for Diagnostic Cath: ?The priority of the diagnostic procedure was Elective. The indication for ?the equipment operator/laborer/supervisor visit is stable known CAD. Chest pain symptom assessment ?was: Typical Angina. ? Technique: ?A 6 SLFr sheath was inserted in the right radial artery utilizing the ?Seldinger technique. A 5Fr sheath was inserted in the right femoral vein ?utilizing the Seldinger technique. A 7 SLFr sheath was inserted in the ?right femoral artery utilizing the Seldinger technique. The right ?coronary artery was injected utilizing a 7Fr AL-1 catheter. Coronary ?atherectomy and coronary stent insertion were performed and the equipment ?utilized will be described in the intervention summary section. 9,000 ?units of heparin were administered. A total of 200cc of Omnipaque were ?opened, 147cc of Omnipaque were administered and 53cc of Omnipaque were ?wasted. Radiation: Fluoro time was 64.5 minutes, dose area product was ?249.00 Gy/cm2 and air kerma was 2,357 mGY. See the case log for ?additional details. ?The patient received the following medications prior to and during the ?procedure: ? Unfractionated Heparin and Clopidogrel. ? Coronary Angiography: ?Dominance: Right ?Left Main ? This vessel was not injected. ?Left Anterior Descending ? This vessel was not injected. ?Left Circumflex ? This vessel was not injected. ?Right Coronary Artery ? There was a 70% calcified long segmental stenosis of the proximal ? segment of the right coronary artery (RCA). ??The RCA was large. ??The ? mid segment of the RCA had a calcified long segmental 95% stenosis. ? Intravascular Imaging/Physiology: ?Intravascular Ultrasound was performed in the mid RCA using a 6 Fr AL 1 ?guiding catheter and a OptiCross 6 HD 60MHz using auto 1 mm/sec pullback. ? Imaging was successful. ??Image quality was good. ??The mid RCA showed ?severe diffuse atherosclerotic plaque with scattered four quadrant ?calcification. ??Measurements were performed after pre-dilation. ?Post Intervention: The stent was well expanded and apposed. ?Intravascular Ultrasound was performed in the proximal RCA using a 7 Fr ?AL 1 guiding catheter and a OptiCross 6 HD 60MHz using auto 1 mm/sec ?pullback. ??Imaging was successful. ??Image quality was good. ??The proximal ?RCA showed moderate diffuse atherosclerotic plaque with scattered two ?quadrant calcification. ??Measurements were performed after pre- dilation. ? Indication for Intervention: ?Coronary intervention was indicated for treatment of stable angina. The ?priority for the procedure was Elective. The NCDR indication for the ?procedure was Stable angina. Syntax Score was Intermediate. ? Intervention Summary: ?Right Coronary Artery ? Proximal 70% ? Stent insertion was performed on the 70% stenosis in the ? proximal segment of the RCA. This was a de afia lesion. ? According to the ACC/AHA classification system, this lesion ? was a type B2 moderate risk lesion. Primary prevention of ? restenosis was the indication for stent insertion. A guidewire ? was placed across this lesion. Vessel flow pre intervention ? was SUNITA 2. Lesion length was 12mm. This lesion was severely ? calcified. ? Stent insertion was accomplished through a 6 Fr. AL 1 guide. ? A premounted 4.00 x 16 mm Synergy XD (VIOLET) was deployed with a ? maximum inflation pressure of 16 atmospheres. ??Following stent ? deployment, the lesion was dilated using a 5.00mm NC EMERGE 06 ? MM balloon with a maximum inflation pressure of 14 ? atmospheres. ? The final outcome was defined as successful. A coronary ? arteriolar vasodilator was administered as part of the ? intervention on this lesion. There was no residual stenosis ? following this intervention. The final SUNITA flow was 3. ? Mid 95% ? Atherectomy and stent insertion were performed on the 95% ? stenosis in the mid segment of the RCA. This was a de afia ? lesion. This lesion was designated a type C high risk lesion ? based on ACC/AHA classification system. Primary prevention of ? restenosis was the indication for stent insertion. A guidewire ? was placed across this lesion. Vessel flow pre intervention ? was SUNITA 2. Lesion length was 26mm. This lesion was severely ? calcified. ? Atherectomy was accomplished through a 6 Fr AL 1 guide. The ? rotational atherectomy procedure was performed with a 1.50 mm ? Rotoblator juliet and six passes. A total of 1 juliet were used. ? Stent insertion was accomplished through a 6 Fr. MAC 3.0 30 ? guide. ??The lesion was predilated with a 3.00mm NC EUPHORA 20 ? MM balloon with a maximum inflation pressure of 20 ? atmospheres. ??A premounted 3.00 x 38 mm Synergy XD (VIOLET) was ? deployed with a maximum inflation pressure of 18 atmospheres. ? Following stent deployment, the lesion was dilated using a ? 5.00mm NC EMERGE 06 MM balloon with a maximum inflation ? pressure of 14 atmospheres. ? The final outcome was defined as successful. A coronary ? arteriolar vasodilator was administered as part of the ? intervention on this lesion. There was no residual stenosis ? following this intervention. The final SUNITA flow was 3. ? Vascular Access: ?Vascular Access Angiogram: ? A selective angiogram at the right femoral artery revealed no ? significant obstructive disease. ?Vascular Ultrasound: ? Ultrasound of the right femoral artery was used to guide access and ? showed vessel patent with mild disease. ?Vascular Access Management: ? A 6 Fr Perclose was deployed at the right femoral artery access ? site. This device was successful. Manual Compression of the right ? femoral artery access site was performed. ? Mechanical Compression of the right radial artery access site was ? performed. ? Manual Compression of the right femoral vein access site was ? performed. ? Dual Antiplatelet (DAPT) Recommendations: ?Drug eluting stent (VIOLET) inserted for stable ischemic heart disease ?(SIHD). 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 ?Recommended anti-platelet/anti-thrombotic regimen: ?Continue aspirin 81 mg daily for indefinitely. ?Continue clopidogrel 75 mg daily for 6 months then stop. ?These recommendations are made at the time of the intervention. Patient ?and provider preferences or a changing clinical situation may require ?modification of this regimen. Consult [facility] Interventional Cardiology for ?questions. ? Conclusions: ?* Obstructive disease of the RCA ?* Successful atherectomy and stent insertion of the mid RCA lesion ?* Successful stent insertion of the proximal RCA lesion ?* See Dual Antiplatelet (DAPT) Recommendations above ? Complications/Events: ?The patient had no complications during these procedures. ? Post Procedure Fluid Recommendations: ?IV fluid at 237 mL/hr for 4 hours for a total of 948 mL. These ?recommendations are made at the time of the procedure. Patient and ?provider preferences or a changing clinical situation may require ?modification of this regimen. ?The attending physician was present for the entire procedure. ?Dr. Avani Danielle M.D. was present during the moderate sedation ?intraservice time as documented by the sedation nurse. ??Case time = 03:16. ?Dr. Avani Danielle M.D. performed the coronary angiography, stent ?insertion-coronary, atherectomy-coronary, vascular ultrasound, IVUS # ?coronary and access site angiography. ? Avani Danielle M.D. ? Electronically Signed by: Avani Danielle M.D. ? Report Finalized: 06/26/2023 ??16:28 ? Report Last Ammended: 07/25/2023 ??10:33 ? Procedure Note Avani Danielle MD - 07/25/2023 [facility] Cardiac Catheterization/Intervention Report Patient Name: Johnson Tobar Procedure Date: 06/26/2023 A #: [id number] Primary Physician: Avani Danielle I Case #: [id number] File Name: [id number] Catheterization Order Number: [id number] [facility] FinalReport [place], [place] Patient Name: Johnson Tobar ID#:[id number] :1950 Procedure Date: June 26, 2023 Case #: [id number] Room: 2 Case Physician: Avani Danielle M.D. Start: 09:33 Fellow: Everett Guthrie M.D. Admission:06/26/2023 Jeana Stack M.D. Discharge:06/27/2023 Procedures: * Coronary Angiography * Coronary Ultrasound * Coronary Atherectomy * Coronary Stent Insertion * Vascular Closure Device Deployment * Access Site Angiography * Vascular Ultrasound History Johnson Tobar is a 72 year old man. He has hypertension and afamily history of coronary artery disease. The patient's smoking status is Never. He has hypercholesterolemia managed by diet and lipidtherapy. The patient has diabetes managed by diet and oral medication. He has aprior history of coronary artery disease. The patient had remote coronary artery bypass surgery. He also has a history of pulmonaryhypertension. Prior to the initiation of this procedure, the patient wasdesignated as ASA Class III. The [facility] clinical frailty scale is 4: Vulnerable. Diagnostic Tests: Prior Coronary Angiography: Prior coronary angiography was performed on 05/17/2023 andshowed obstructive CAD. LV ejection fraction within 6 months is 65%. Electrocardiography: EKG was assessed by ECG. EKG was Abnormal. EKG showed T-wave inversions, ST Deviation >= 0.5 mm and other abnormality. Medications Prior to Procedure: Sacubitril and Valsartan, Aspirin, Beta Estee, CalciumChannel Blocking Agent and Statin. Indications for Diagnostic Cath: The priority of the diagnostic procedure was Elective. Theindication for the equipment operator/laborer/supervisor visit is stable known CAD. Chest pain symptomassessment was: Typical Angina. Technique: A 6 SLFr sheath was inserted in the right radial artery utilizingthe Seldinger technique. A 5Fr sheath was inserted in the right femoralvein utilizing the Seldinger technique. A 7 SLFr sheath was inserted inthe right femoral artery utilizing the Seldinger technique. The right coronary artery was injected utilizing a 7Fr AL-1 catheter. Coronary atherectomy and coronary stent insertion were performed and theequipment utilized will be described in the intervention summary section.9,000 units of heparin were administered. A total of 200cc of Omnipaquewere opened, 147cc of Omnipaque were administered and 53cc of Omnipaquewere wasted. Radiation: Fluoro time was 64.5 minutes, dose area productwas 249.00 Gy/cm2 and air kerma was 2,357 mGY. See the case log for additional details. The patient received the following medications prior to and duringthe procedure: Unfractionated Heparin and Clopidogrel. Coronary Angiography: Dominance: Right Left Main This vessel was not injected. Left Anterior Descending This vessel was not injected. Left Circumflex This vessel was not injected. Right Coronary Artery There was a 70% calcified long segmental stenosis of theproximal segment of the right coronary artery (RCA). The RCA was large.The mid segment of the RCA had a calcified long segmental 95%stenosis. Intravascular Imaging/Physiology: Intravascular Ultrasound was performed in the mid RCA using a 6 FrAL 1 guiding catheter and a OptiCross 6 HD 60MHz using auto 1 mm/secpullback. Imaging was successful. Image quality was good. The mid RCAshowed severe diffuse atherosclerotic plaque with scattered four quadrant calcification. Measurements were performed after pre-dilation. Post Intervention: The stent was well expanded and apposed. Intravascular Ultrasound was performed in the proximal RCA using a 7Fr AL 1 guiding catheter and a OptiCross 6 HD 60MHz using auto 1 mm/sec pullback. Imaging was successful. Image quality was good. Theproximal RCA showed moderate diffuse atherosclerotic plaque with scatteredtwo quadrant calcification. Measurements were performed afterpre-dilation. Indication for Intervention: Coronary intervention was indicated for treatment of stable angina.The priority for the procedure was Elective. The NCDR indication for the procedure was Stable angina. Syntax Score was Intermediate. Intervention Summary: Right Coronary Artery Proximal 70% Stent insertion was performed on the 70% stenosis in the proximal segment of the RCA. This was a de afia lesion. According to the ACC/AHA classification system, thislesion was a type B2 moderate risk lesion. Primary prevention of restenosis was the indication for stent insertion. Aguidewire was placed across this lesion. Vessel flow preintervention was SUNITA 2. Lesion length was 12mm. This lesion wasseverely calcified. Stent insertion was accomplished through a 6 Fr. AL 1guide. A premounted 4.00 x 16 mm Synergy XD (VIOLET) was deployedwith a maximum inflation pressure of 16 atmospheres. Followingstent deployment, the lesion was dilated using a 5.00mm NCEMERGE 06 MM balloon with a maximum inflation pressure of 14 atmospheres. The final outcome was defined as successful. A coronary arteriolar vasodilator was administered as part of the intervention on this lesion. There was no residualstenosis following this intervention. The final SUNITA flow was 3. Mid 95% Atherectomy and stent insertion were performed on the 95% stenosis in the mid segment of the RCA. This was a denovo lesion. This lesion was designated a type C high risklesion based on ACC/AHA classification system. Primaryprevention of restenosis was the indication for stent insertion. Aguidewire was placed across this lesion. Vessel flow preintervention was SUNITA 2. Lesion length was 26mm. This lesion wasseverely calcified. Atherectomy was accomplished through a 6 Fr AL 1 guide.The rotational atherectomy procedure was performed with a1.50 mm Rotoblator juliet and six passes. A total of 1 juliet wereused. Stent insertion was accomplished through a 6 Fr. MAC 3.030 guide. The lesion was predilated with a 3.00mm NCEUPHORA 20 MM balloon with a maximum inflation pressure of 20 atmospheres. A premounted 3.00 x 38 mm Synergy XD (VIOLET)was deployed with a maximum inflation pressure of 18atmospheres. Following stent deployment, the lesion was dilated usinga 5.00mm NC EMERGE 06 MM balloon with a maximum inflation pressure of 14 atmospheres. The final outcome was defined as successful. A coronary arteriolar vasodilator was administered as part of the intervention on this lesion. There was no residualstenosis following this intervention. The final SUNITA flow was 3. Vascular Access: Vascular Access Angiogram: A selective angiogram at the right femoral artery revealed no significant obstructive disease. Vascular Ultrasound: Ultrasound of the right femoral artery was used to guide accessand showed vessel patent with mild disease. Vascular Access Management: A 6 Fr Perclose was deployed at the right femoral artery access site. This device was successful. Manual Compression of theright femoral artery access site was performed. Mechanical Compression of the right radial artery access sitewas performed. Manual Compression of the right femoral vein access site was performed. Dual Antiplatelet (DAPT) Recommendations: Drug eluting stent (VIOLET) inserted for stable ischemic heart disease (SIHD). 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 Recommended anti-platelet/anti-thrombotic regimen: Continue aspirin 81 mg daily for indefinitely. Continue clopidogrel 75 mg daily for 6 months then stop. These recommendations are made at the time of the intervention.Patient and provider preferences or a changing clinical situation mayrequire modification of this regimen. Consult [facility] Interventional Cardiologyfor questions. Conclusions: * Obstructive disease of the RCA * Successful atherectomy and stent insertion of the mid RCA lesion * Successful stent insertion of the proximal RCA lesion * See Dual Antiplatelet (DAPT) Recommendations above Complications/Events: The patient had no complications during these procedures. Post Procedure Fluid Recommendations: IV fluid at 237 mL/hr for 4 hours for a total of 948 mL. These recommendations are made at the time of the procedure. Patient and provider preferences or a changing clinical situation may require modification of this regimen. The attending physician was present for the entire procedure. Dr. Avani Danielle M.D. was present during the moderate sedation intraservice time as documented by the sedation nurse. Case time =03:16. Dr. Avani Danielle M.D. performed the coronary angiography, stent insertion-coronary, atherectomy-coronary, vascular ultrasound, IVUS # coronary and access site angiography. Avani Danielle M.D. Electronically Signed by: Avani Danielle M.D. Report Finalized: 06/26/2023 16:28 Report Last Ammended: 07/25/2023 10:33 Avani Onofre MD CARDIAC CATH ORDERA BLES * POCT Glucose (06/26/2023 8:11 AM EST) Glucose, POC 147 65 - 199 mg/dL [facility] Comment: Supplemental ranges: <140 mg/dL before meals <180 mg/dL all other times of the day Blood 06/26/2023 8:11 AM EST 06/26/2023 8:11 AM EST Avani Onofre MD POINT OF CARE TEST ORDERABLES [facility] [place] [address] documented in this encounter Visit Diagnoses Diagnosis CAD (coronary artery disease)- Primary Coronary atherosclerosis of unspecified type of vessel, gambell or graft Screening for cardiovascular condition Screening for other and unspecified cardiovascular conditions ASCVD (arteriosclerotic cardiovascular disease) Unspecified cardiovascular disease Coronary artery disease, unspecified vessel or lesion type, unspecified whether angina present, unspecified whether gambell or transplanted heart S/P coronary artery stent placement Postsurgical percutaneous transluminal coronary angioplasty status Screening for cardiovascular condition Screening for other and unspecified cardiovascular conditions ASCVD (arteriosclerotic cardiovascular disease) Unspecified cardiovascular disease Coronary artery disease, unspecified vessel or lesion type, unspecified whether angina present, unspecified whether gambell or transplanted heart documented in this encounter Admitting Diagnoses Diagnosis CAD (coronary artery disease) Coronary atherosclerosis of unspecified type of vessel, gambell or graft documented in this encounter Administered Medications Inactive Administered Medications - up to 3 most recent administrations Medication Order MAR Action Action Date Dose Rate Site aminophylline (25 mg/mL) injection 250 mg 250 mg, Intravenous, ONCE, 1 dose, On Sat06/26/23 at 0830, STAT Given 06/26/2023 9:25 AM EST 250 mg amLODIPine (Norvasc) tablet 5 mg 5 mg, Oral, 2 TIMES DAILY, First dose on Sat06/26/23 at 1530, Until Discontinued, Routine Given 06/27/2023 8:12 AM EST 5 mg Given 06/26/2023 4:39 PM EST 5 mg aspirin EC tablet 81 mg 81 mg, Oral, DAILY, First dose on Sat06/27/23 at 0900, Until Discontinued, Routine Given 06/27/2023 8:1 2 AM EST 81 mg clopidogreL (Plavix) tablet 75 mg 75 mg, Oral, NIGHTLY, First dose on Sat06/26/23 at 2100, Until Discontinued, Routine Given 06/26/2023 9:1 4 PM EST 75 mg dextrose 10% infusion 250 mL, at 1,000 mL/hr, Intravenous, EVERY 15 MIN PRN, Starting on Sat06/26/23 at 1625, Until Sat06/27/23 at 1132, For BG 50-70 mg/dL: Oral treatment preferred: [...] Intramuscular, EVERY 15 MIN PRN, Starting on Sat06/26/23 at 1625, Until Mary Beth 06/27/23 at 1132, Low blood sugar, For BG 50-70 mg/dL: [...] Buccal, EVERY 15 MIN PRN, Starting on Sat06/26/23 at 1625, Until Mary Beth 06/27/23 at 1132, Low blood sugar, For BG 50-70 mg/dL: [...] of tube = 37.5 grams.), Routine insulin lispro (HumaLOG;Admelog) (100 unit/mL) subcutaneous injection vial 1-6 Units 1-6 Units, Subcutaneous, 3 TIMES DAILY BEFORE MEALS, First dose on Sat06/26/23 at 1715, Until Discontinued, CORRECTION BOLUS [1-6 Units] Moderate [...] than 240 mg/dL in 2 hours., Routine metoprolol tartrate (Lopressor) tablet 100 mg 100 mg, Oral, 2 TIMES DAILY, First dose on Sat06/26/23 at 2100, Until Discontinued, Routine Given 06/27/2023 8:12 AM EST 100 mg Given 06/26/2023 9:14 PM EST 100 mg rosuvastatin (Crestor) tablet 40 mg 40 mg, Oral, DAILY, First dose on Sat06/26/23 at 1530, Until Discontinued, Routine Given 06/26/2023 4:39 PM EST 40 mg sacubitriL-valsartan (Entresto) 24-26 mg per tablet 1 tablet 1 tablet, Oral, 2 TIMES DAILY, First dose on Sat06/26/23 at 2100, Until Discontinued, Routine, Is this a continuation of home medication? Yes Given 06/27/2023 8:13 AM EST 1 table t Given 06/26/2023 9:14 PM EST 1 tablet sodium chloride 0.9% infusion 125 mL/hr, Intravenous, CONTINUOUS, Starting on Sat06/26/23 at 1345, Until Sat06/26/23 at 1844 New Bag 06/26/2023 1:45 PM EST 125 mL/hr 125 mL/hr documented in this encounter Active and Recently Administered Medications Times are shown in EST. Scheduled Medication Order 06/25/2023 06/26/2023 06/27/2023 aminophylline (25 mg/mL) injection 250 mg (COMPLETED) 250 mg, Intravenous, ONCE, 1 dose, On Sat06/26/23 at 0830, STAT 0925 (Given - Provider: Luann Alvarez RN - Comment: hung by Jeanette Rodriguez RN administered over 20 mins per MDs orders) amLODIPine (Norvasc) tablet 5 mg 5 mg, Oral, 2 TIMES DAILY, First dose on Sat06/26/23 at 1530, Until Discontinued, Routine 1639 (Given - Provider: Eboni Carrion RN) 08 (Given - Provider: Hailey Heller, MOISES) aspirin EC tablet 81 mg 81 mg, Oral, DAILY, First dose on Sat06/27/23 at 0900, Until Discontinued, Routine 08 (Given - Provid er: Hailey Heller RN) clopidogreL (Plavix) tablet 75 mg 75 mg, Oral, NIGHTLY, First dose on Sat06/26/23 at 2100, Until Discontinued, Routine 2113 (Given - Provider: Linsey Adair, MOISES) insulin lispro (HumaLOG;Admelog) (100 unit/mL) subcutaneous injection vial 1-6 Units(Linked Group 1) 1-6 Units, Subcutaneous, 3 TIMES DAILY BEFORE MEALS, First dose on Sat06/26/23 at 1715, Until Discontinued, CORRECTION BOLUS [1-6 Units] Moderate [...] than 240 mg/dL in 2 hours., Routine 1714 (Not Given - Provider: Eboni Carrion RN - Reason: Order parameters not met) 0730 (Not Given - Provider: Hailey Heller RN - Reason: Order parameters not met - Comment: [facility] 121) metoprolol tartrate (Lopressor) tablet 100 mg 100 mg, Oral, 2 TIMES DAILY, First dose on Sat06/26/23 at 2100, Until Discontinued, Routine 2113 (Given - Provider: Linsey Adair RN) 08 (Given - Provider: Hailey Heller, MOISES) rosuvastatin (Crestor) tablet 40 mg 40 mg, Oral, DAILY, First dose on Sat06/26/23 at 1530, Until Discontinued, Routine 1639 (Given - Provider: Eboni Carrion RN) sacubitriL-valsartan (Entresto) 24-26 mg per tablet 1 tablet 1 tablet, Oral, 2 TIMES DAILY, First dose on Sat06/26/23 at 2100, Until Discontinued, Routine, Is this a continuation of home medication? Yes 2113 (Given - Provider: Linsey Adair RN) 08 (Given - Provider: Hailey Heller RN) Continuous Medication Order 06/25/2023 06/26/2023 06/27/2023 sodium chloride 0.9% infusion (CANCELED) 200 mL/hr, Intravenous, CONTINUOUS, Starting on Sat06/26/23 at 0815, Until Sat06/26/23 at 1309, Cath (Day of Procedure) 0815 (Due)1015 (New Bag - Provider: Traci Mancera RN - Comment: bolus) sodium chloride 0.9% infusion () 125 mL/hr, Intravenous, CONTINUOUS, Starting on Sat06/26/23 at 1345, Until Sat06/26/23 at 1844 1345 (New Bag - Provider: Paris Silva RN) PRN Medication Order 06/25/2023 06/26/2023 06/27/2023 aspirin chewable tablet (CANCELED) PRN, Starting on Sat06/26/23 at 0909, Until Sat06/26/23 at 1246, Intra-Operative (Intra-Procedure), Routine 0909 (Given - Provider: Traci Mancera RN) dextrose 10% infusion(Linked Group 2) 250 mL, at 1,000 mL/hr, Intravenous, EVERY 15 MIN PRN, Starting on Sat06/26/23 at 1625, Until Mary Beth 06/27/23 at 1132, For BG 50-70 mg/dL: Oral treatment preferred: [...] insulin orders before administering the next dose. fentaNYL (pf) (50 mcg/mL) multi-dose injection (CANCELED) PRN, Starting on Sat06/26/23 at 0927, Until Sat06/26/23 at 1246, Intra-Operative (Intra-Procedure), Routine 0927 (Given - Provider: Traci Mancera RN)0941 (Given - Provider: Traci Mancera RN)1100 (Given - Provider: Traci Mancera, MOISES)1157 (Given - Provider: Traci Mancera RN) glucagon (Glucagen) (1 mg/mL) injection solution 1 mg(Linked Group 2) 1 mg, Intramuscular, EVERY 15 MIN PRN, Starting on Sat06/26/23 at 1625, Until Mary Beth 06/27/23 at 1132, Low blood sugar, For BG 50-70 mg/dL: [...] Buccal, EVERY 15 MIN PRN, Starting on Sat06/26/23 at 1625, Until Mary Beth 06/27/23 at 1132, Low blood sugar, For BG 50-70 mg/dL: [...] tube = 37.5 grams.), Routine heparin (porcine) (1,000 units/mL) injection (CANCELED) PRN, Starting on Sat06/26/23 at 0948, Until Sat06/26/23 at 1246, Intra-Operative (Intra-Procedure), Routine 0948 (Given - Provider: Everett Guthrie MD)1127 (Given - Provider: Traci Mancera RN) midazolam (pf) (Versed) (1 mg/mL) multi-dose injection (CANCELED) PRN, Starting on Sat06/26/23 at 0927, Until Sat06/26/23 at 1246, Intra-Operative (Intra-Procedure), Routine 0927 (Given - Provider: Traci Mancera RN)0941 (Given - Provider: Traci Mancera, MOISES)1100 (Given - Provider: Traci Mancera, MOISES)1157 (Given - Provider: Traci Mancera RN) nitroGLYcerin 100 mcg/mL intracoronary dilution (CANCELED) PRN, Starting on Sat06/26/23 at 0942, Until Sat06/26/23 at 1246, Intra-Operative (Intra-Procedure), Routine 0942 (Given - Provider: Everett Guthrie MD) verapamiL (Isoptin) (2.5 mg/mL) injection (CANCELED) PRN, Starting on Sat06/26/23 at 0942, Until Sat06/26/23 at 1246, Administer over 2 Minutes, Intra-Operative (Intra-Procedure) 0942 (Given - Provider: Everett Guthrie MD) Linked Groups Order Group 1: POCT Fingerstick Glucose (CANCELED) Routine, 4 TIMES DAILY BEFORE MEALS & AT BEDTIME, First occurrence on Sat06/26/23 at 1700, Until Specified, Consider choosing FOUR [...] TIMES DAILY BEFORE MEALS, First dose on Sat06/26/23 at 1715, Until Discontinued, CORRECTION BOLUS [1-6 Units] Moderate [...] Buccal, EVERY 15 MIN PRN, Starting on Sat06/26/23 at 1625, Until Sat06/27/23 at 1132, Low blood sugar, For BG 50-70 mg/dL: [...] Intravenous, EVERY 15 MIN PRN, Starting on Sat06/26/23 at 1625, Until Mary Beth 06/27/23 at 1132, For BG 50-70 mg/dL: Oral treatment preferred: [...] Intramuscular, EVERY 15 MIN PRN, Starting on Sat06/26/23 at 1625, Until Mary Beth 06/27/23 at 1132, Low blood sugar, For BG 50-70 mg/dL: [...] Routine documented in this encounter Care Teams Lead Machinist Relationship Specialty Start Date End Date Ramiro Ball MD [address] [place] [id number] PCP - General 06/06/10 02/17/24 documented as of this encounter
--- OUTSIDE RECORDS SUMMARY | 2024-03-26 15:52 | XMS_ITS | Encounter Summary ---
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 Screening for cardiovascular condition [Z13.6] ASCVD (arteriosclerotic cardiovascular disease) [I25.10] Coronary artery disease, unspecified vessel or lesion type, unspecified whether angina present, unspecified whether igiugig or transplanted heart [I25.10] Procedures PRG CATH [...] CORONARY ARTERY (WRVU *) Avani Danielle MD [facility] [place] [address] [facility] Referral ID Status Reason Start Date Expiration Date Visits Re quested Visits Authorized [id number] 1 1 Encounter Details Date Type Department Care Team (Late st Contact Info) Description 06/26/2023 8:00 AM EST - 06/26/2023 10:00 AM EST [place] [address] Avani Danielle MD [facility] [place] [address] CARDIAC CATHETERIZATION Social History Tobacco Use Types [...] Sign Reading Time Taken Comments Blood Pressure 124/74 06/26/2023 7:48 AM EST Pulse 65 06/26/2023 7:48 AM EST Temperature 36.3 ??C (97.3 ??F) 06/26/2023 7:48 AM ES T Respiratory Rate 18 06/26/2023 7:48 AM EST Oxygen Saturation 98% 06/26/2023 7:48 AM EST Inhaled Oxygen Concentration - - [...] Johnson Tobar Patient Age: 72 y.o. Language: Lebanese Race: White Ethnicity: Not nor Admit date: [...] please contact your inpatient physician through the [facility] Movie Projectionist . Issues afterhours and on weekends will be handled by the dentofacial orthopedics dentist on-call. Discharge Diagnoses (Hospital Problems) and Secondary [...] Right Femoral Access ultrasound guided - 7 Philipp Right Femoral Vein ultrasound guided - 5 [...] Rota juliet, we brought in a 6 Tanzanian guide liner through which a 1.5 Rota [...] upsize the radial catheter to a 7 Tanzanian system but were unable to put a 7 slender sheath. We then obtained right femoral access with a 7 Philipp sheath. We brought a 7 Tanzanian AL-1 guide catheter to the RCA. We placed a 7 Tanzanian guide liner and rewiredthe RCA with a [...] this Hospitalization: Immunization History Administered Date(s) Administered Ludin Geid-19 Monovalent 12Yr+ (Coverer 100mcg) 09/15/2020, 10/13/2020 Discharge Medications: Your Medications [...] Complete By Expires Referral to Cardiac Rehab [YGS254 Custom] As directed Process Instructions: If no progress note charted, please enter Clinical details in comments. Scheduling Instructions: Questions: My question or request is: s/p PCI to RCA Discharge References/Attachments None documented in this encounter Discharge Instructions * Attachments The following attachments cannot be sent through Care Everywhere. * PCI (Percutaneous Coronary Intervention): Post-op (Lebanese) documented in this encounter Medications at Time [...] Heller RN - 06/27/2023 8:00 AM EST [facility] Short Stay Unit Discharge Note All [...] stenosis Added automatically from request for surgery [id number] Type 2 diabetes mellitus ASCVD (arteriosclerotic cardiovascular [...] Tobar PCP: Ramiro Ball MD PCP Referring Candy Vendor: Joseph Lackey MD Reason for Referral: Angina [...] in cardiac rehab after his CABG at [facility] and enjoyed it. He has a stationary bike at home but has not been using it lately due to sx. He carries NTG and understands how to use it. Participation in an outpatient cardiac rehabilitation program at [facility] was discussed. He agrees to another referral to this program. The referral will be sent at discharge and the patient should be contacted by the Program within 1- 2 weeks from discharge. * Brief Op Note - Everett Guthrie MD - 06/26/2023 1:30 PM EST Images from the original note were not included. Brief Operative Note Patient Name: Johnson Tobar : [id number] MR#: [id number] Case Date: 06/26/2023 Surgeon: Surgeon(s) and Role: * Avani Danielle MD - Primary * Everett Guthrie MD - Fellow - Assisting * Jeana Stack MD - Fellow - Assisting Preoperative diagnosis: ASCVD Postoperative diagnosis: ASCVD Preliminary Cardiac Catheterization Procedure Note: Procedure(s) performed: Right Radial Access - 6 Slender Right Femoral Access ultrasound guided - 7 Philipp Right Femoral Vein ultrasound guided - 5 [...] Rota juliet, we brought in a 6 Tanzanian guide liner through which a 1.5 Rota [...] upsize the radial catheter to a 7 Tanzanian system but were unable to put a 7 slender sheath. We then obtained right femoral access with a 7 Philipp sheath. We brought a 7 Tanzanian AL-1 guide catheter to the RCA. We placed a 7 Tanzanian guide liner and rewiredthe RCA with a [...] 2:30 PM EST [place] [address] Susanna Cm APRN [facility] [place] [address] Scheduled Referrals Name Type Priority Associated Diagnoses [...] type, unspecified whether angina present, unspecified whether igiugig or transplanted heart Perc Trluml Coronary Stent W/Angio Addl Art/Branch ([id number]) 06/26/2023 9:06 AM EST Screening for cardiovascular condition ASCVD (arteriosclerotic cardiovascular disease) Coronary artery disease, unspecified vessel or lesion type, unspecified whether angina present, unspecified whether igiugig or transplanted heart Perc Trluml Coronary Stent W/Angio One Art/Branch([id number]) 06/26/2023 9:06 AM EST Screening for cardiovascular condition ASCVD (arteriosclerotic cardiovascular disease) Coronary artery disease, unspecified vessel or lesion type, unspecified whether angina present, unspecified whether igiugig or transplanted heart Cath Plmt Left Heart Cath & Arts W/Inj & Angio Img S&I ([id number]) 06/26/2023 9:06 AM EST Screening for cardiovascular condition ASCVD (arteriosclerotic cardiovascular disease) Coronary artery disease, unspecified vessel or lesion type, unspecified whether angina present, unspecified whether igiugig or transplanted heart POCT GLUCOSE Routine 06/26/2023 8:11 AM EST documented in this encounter Results * POCT Glucose (06/27/2023 6:42 AM EST) Glucose, POC 121 65 - 199 mg/dL [facility] Comment: Supplemental ranges: <140 mg/dL before meals <180 mg/dL all other times of the day Blood 06/27/2023 6:42 AM EST 06/27/2023 6:42 AM EST Avani Onofre MD POINT OF CARE TEST ORDERABLES [facility] [place] [place] [address] * POCT Glucose (06/26/2023 9:17 PM EST) Glucose, POC 134 65 - 199 mg/dL [facility] Comment: Supplemental ranges: <140 mg/dL before meals <180 mg/dL all other times of the day Blood 06/26/2023 9:17 PM EST 06/26/2023 9:17 PM EST Avani Onofre MD POINT OF CARE TEST ORDERABLES [facility] [place] [place] [address] * POCT Glucose (06/26/2023 4:43 PM EST) Glucose, POC 99 65 - 199 mg/dL [facility] Comment: Supplemental ranges: <140 mg/dL before meals <180 mg/dL all other times of the day Blood 06/26/2023 4:43 PM EST 06/26/2023 4:43 PM EST Avani Onofre MD POINT OF CARE TEST ORDERABLES Performing Organization Address City/[facility] Co de Phone Number [facility] [place] [address] * EKG 12 Lead (06/26/2023 1:17 PM EST) Ventricular rate 76 BPM MUSE SYSTEM Atrial Rate 76 BPM MUSE SYSTEM P-R Interval 136 ms MUSE SYSTEM QRS Duration 82 ms MUSE SYSTEM Q-T Interval 408 ms MUSE SYSTEM QTC Calculated (Bezet) 459 ms MUSE SYSTEM Calculated P Baltic 35 degrees MUSE SYSTEM Calculated R Baltic -2 degrees MUSE SYSTEM Calculated T Baltic -43 degrees MUSE SYSTEM INTERPRETATION Normal sinus rhythm Inferior infarct (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-2020) Abnormal ECG When compared with ECG of 17-MAY-2023 12:00, Premature atrial complexes are no longer Present Serial changes of Inferior infarct Present Confirmed by MD Jessica, Ebenezer ([id number]) on 06/27/2023 7:49:05 AM MUSE SYSTEM 06/26/2023 1:17 PM EST 06/27/2023 7:49 AM EST Avani Onofre MD ECG ORDERABLES Performing Organization Address City/[facility] Co de Phone Number MUSE SYSTEM * POCT Glucose (06/26/2023 1:13 PM EST) Glucose, POC 139 65 - 199 mg/dL [facility] Comment: Supplemental ranges: <140 mg/dL before meals <180 mg/dL all other times of the day Blood 06/26/2023 1:13 PM EST 06/26/2023 1:13 PM EST Avani Onofre MD POINT OF CARE TEST ORDERABLES [facility] [place] [place] [address] * CARDIAC CATHETERIZATION (06/26/2023 12:55 PM EST) Anatomical Region Laterality Modality Other Narrative 06/26/2023 4:32 PM EST ?[facility] ? Cardiac Catheterization/Intervention Report ? Patient Name: Ekaterina, Johnson R. ? Procedure Date: 06/26/2023 ? A #: [id number] ? Primary Physician: Avani Danielle I ? Case #: [id number] ? File Name: [id number] ? Catheterization Order Number: [id number] ? [facility] ? Final Report [place], [place] ? Patient Name: ? Johnson R. Ekaterina ? ID#: ?[id number] ? : ?1950 ? Procedure Date: ? June 26, 2023 ?Case #: ? [id number] ? Room: ? 2 ? Case Physician: [...] procedure was Elective. The indication for ?the dental laboratory technician visit is stable known CAD. Chest pain [...] on chronic DAPT on arrival to the dental laboratory technician. ?Recommended anti-platelet/anti-thrombotic regimen: ?Continue aspirin 81 mg daily for indefinitely. ?Continue clopidogrel 75 mg daily for 6 months then stop. ?These recommendations are made at the time of the intervention. Patient ?and provider preferences or a changing clinical situation may require ?modification of this regimen. Consult [facility] Interventional Cardiology for ?questions. ? Conclusions: ?* [...] Procedure Note Avani Danielle MD - 07/25/2023 [facility] Cardiac Catheterization/Intervention Report Patient Name: Johnson Tobar Procedure Date: 06/26/2023 A #: [id number] Primary Physician: Avani Danielle I Case #: [id number] File Name: [id number] Catheterization Order Number: [id number] [facility] FinalReport [place], [place] Patient Name: Johnson Tobar ID#:[id number] :1950 Procedure Date: June 26, 2023 Case [...] patient wasdesignated as ASA Class III. The [facility] clinical frailty scale is 4: Vulnerable. [...] diagnostic procedure was Elective. Theindication for the dental laboratory technician visit is stable known CAD. Chest pain [...] on chronic DAPT on arrival to the dental laboratory technician. Recommended anti-platelet/anti-thrombotic regimen: Continue aspirin 81 mg daily for indefinitely. Continue clopidogrel 75 mg daily for 6 months then stop. These recommendations are made at the time of the intervention.Patient and provider preferences or a changing clinical situation mayrequire modification of this regimen. Consult [facility] Interventional Cardiologyfor questions. Conclusions: * Obstructive disease [...] Glucose, POC 147 65 - 199 mg/dL [facility] Comment: Supplemental ranges: <140 mg/dL before meals <180 mg/dL all other times of the day Blood 06/26/2023 8:11 AM EST 06/26/2023 8:11 AM EST Avani Onofre MD POINT OF CARE TEST ORDERABLES Performing Organization Address City/State/[facility] Co de Phone Number [facility] [place] [phone] documented in this encounter Visit Diagnoses Diagnosis CAD (coronary artery disease)- Primary Coronary atherosclerosis of unspecified type of vessel, igiugig or graft Screening for cardiovascular condition Screening for other and unspecified cardiovascular conditions ASCVD (arteriosclerotic cardiovascular disease) Unspecified cardiovascular disease Coronary artery disease, unspecified vessel or lesion type, unspecified whether angina present, unspecified whether igiugig or transplanted heart S/P coronary artery stent placement Postsurgical percutaneous transluminal coronary angioplasty status Screening for cardiovascular condition Screening for other and unspecified cardiovascular conditions ASCVD (arteriosclerotic cardiovascular disease) Unspecified cardiovascular disease Coronary artery disease, unspecified vessel or lesion type, unspecified whether angina present, unspecified whether igiugig or transplanted heart documented in this encounter Admitting Diagnoses Diagnosis CAD (coronary artery disease) Coronary atherosclerosis of unspecified type of vessel, igiugig or graft documented in this encounter Administered [...] 06/26/2023 4:39 PM EST 5 mg aspirin chewable tablet PRN, Starting on Sat06/26/23 at 0909, Until Sat06/26/23 at 1246, Intra-Operative (Intra-Procedure), Routine Given 06/26/2023 9:09 AM EST 81 mg aspirin EC tablet 81 mg 81 mg, Oral, DAILY, First dose on Mary Beth 06/27/23 at 0900, Until Discontinued, Routine Given 06/27/2023 8:12 AM EST 81 mg clopidogreL (Plavix) tablet 75 mg 75 mg, Oral, NIGHTLY, First dose on Sat06/26/23 at 2100, Until Discontinued, Routine Given 06/26/2023 9:14 PM EST 75 mg dextrose 10% infusion [...] dose. fentaNYL (pf) (50 mcg/mL) multi-dose injection PRN, Starting on Sat06/26/23 at 0927, Until Sat06/26/23 at 1246, Intra-Operative (Intra-Procedure), Routine Given 06/26/2023 11:57 AM EST 25 mcg Given 06/26/2023 11:00 AM EST 25 mcg Given 06/26/2023 9:41 AM EST 25 mcg glucagon (Glucagen) (1 mg/mL) injection [...] grams.), Routine heparin (porcine) (1,000 units/mL) injection PRN, Starting on Sat06/26/23 at 0948, Until Sat06/26/23 at 1246, Intra-Operative (Intra-Procedure), Routine Given 06/26/2023 11:27 AM EST 4,000 Units Given 06/26/2023 9:48 AM EST 7,000 Units insulin lispro (HumaLOG;Admelog) (100 unit/mL) subcutaneous [...] Given 06/26/2023 9:14 PM EST 100 mg midazolam (pf) (Versed) (1 mg/mL) multi-dose injection PRN, Starting on Sat06/26/23 at 0927, Until Sat06/26/23 at 1246, Intra-Operative (Intra-Procedure), Routine Given 06/26/2023 11:57 AM EST 1 mg Given 06/26/2023 11:00 AM EST 1 mg Given 06/26/2023 9:41 AM EST 1 mg nitroGLYcerin 100 mcg/mL intracoronary dilution PRN, Starting on Sat06/26/23 at 0942, Until Sat06/26/23 at 1246, Intra-Operative (Intra-Procedure), Routine Given 06/26/2023 9:42 AM EST 150 mcg rosuvastatin (Crestor) tablet 40 mg 40 mg, [...] EST 1 tablet sodium chloride 0.9% infusion 200 mL/hr, Intravenous, CONTINUOUS, Starting on Sat06/26/23 at 0815, Until Sat06/26/23 at 1309, Cath (Day of Procedure) New Bag 06/26/2023 10:15 AM EST 250 mLs sodium chloride 0.9% infusion 125 mL/hr, Intravenous, CONTINUOUS, Starting on Sat06/26/23 at 1345, Until Sat06/26/23 at 1844 New Bag 06/26/2023 1:45 PM EST 125 mL/hr 125 mL/hr verapamiL (Isoptin) (2.5 mg/mL) injection PRN, Starting on Sat06/26/23 at 0942, Until Sat06/26/23 at 1246, Administer over 2 Minutes, Intra-Operative (Intra-Procedure) Given 06/26/2023 9:42 AM EST 2.5 mg documented in this encounter Active and Recently [...] than 240 mg/dL in 2 hours., Routine 1715 (Not Given - Provider: Eboni Carrion, MOISES - Reason: Order parameters not met) 0730 (Not Given - Provider: Hailey Heller, MOISES - Reason: Order parameters not met - Comment: CBG 121) metoprolol tartrate (Lopressor) tablet 100 mg 100 mg, Oral, 2 TIMES DAILY, First dose on Sat06/26/23 at 2100, Until Discontinued, Routine 2113 (Given - Provider: Linsey Adair, MOISES) 0812 (Given - Provider: Hailey Heller, MOISES) rosuvastatin (Crestor) tablet 40 mg 40 mg, Oral, DAILY, First dose on Sat06/26/23 at 1530, Until Discontinued, Routine 1639 (Given - Provider: Eboni Carrion, MOISES) sacubitriL-valsartan (Entresto) 24-26 mg per tablet 1 [...] 0815 (Due)1015 (New Bag - Provider: Traci Mancera, MOISES - Comment: bolus) sodium chloride 0.9% infusion () 125 mL/hr, Intravenous, CONTINUOUS, Starting on Sat06/26/23 at 1345, Until Sat06/26/23 at 1844 1345 (New Bag - Provider: Paris Silva RN) PRN Medication Order 06/25/2023 06/26/2023 06/27/2023 aspirin chewable tablet (CANCELED) PRN, Starting on Sat06/26/23 at 0909, Until Sat06/26/23 at 1246, Intra-Operative (Intra-Procedure), Routine 09 (Given - Provider: Traci Mancera RN) dextrose [...] Until Sat06/26/23 at 1246, Intra-Operative (Intra-Procedure), Routine 09 (Given - Provider: Traci Mancera RN)0941 (Given - Provider: Traci Mancera RN)1100 (Given - Provider: Traci Mancera RN)1157 (Given - Provider: Traci Mancera RN) glucagon (Glucagen) (1 mg/mL) injection solution 1 mg(Linked Group 2) 1 mg, Intramuscular, EVERY 15 MIN PRN, Starting on Sat06/26/23 at 1625, Until Mary Beth 12/14/23 at 1132, Low blood sugar, For BG [...] Everett Guthrie MD)1127 (Given - Provider: Traci Mancera, RN) midazolam (pf) (Versed) (1 mg/mL) multi-dose injection (CANCELED) PRN, Starting on Sat06/26/23 at 0927, Until Sat06/26/23 at 1246, Intra-Operative (Intra-Procedure), Routine 0927 (Given - Provider: Traci Mancera, MOISES)0941 (Given - Provider: Traci Mancera, RN)1100 (Given - Provider: Traci Mancera, RN)1157 (Given - Provider: Traci Mancera, RN) nitroGLYcerin 100 mcg/mL intracoronary dilution (CANCELED) [...] Routine documented in this encounter Care Teams Machining Technician Relationship Specialty Start Date End Date Ramiro Ball MD [address] [place] [id number] PCP - General 06/06/10 02/17/24 documented as of this encounter
--- OUTSIDE RECORDS SUMMARY | 2024-03-26 15:52 | XMS_ITS | Encounter Summary ---
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 Referral ID Status Reason Start Date Expiration Date Visits Re quested Visits Authorized [id number] 1 1 Encounter Details Date Type Department Care Team (Late st Contact Info) Description 05/17/2023 11:30 AM EDT - 05/17/2023 12:30 PM EDT Surgery [place] [address] Avani Danielle MD [facility] [place] [address] [place] [address] CARDIAC CATHETERIZATION Social History Tobacco Use Types [...] Sign Reading Time Taken Comments Blood Pressure 131/88 05/17/2023 11:43 AM EDT Pulse 64 05/17/2023 11:43 AM EDT Temperature 36.1 ??C (97 ??F) 05/17/2023 11:43 AM EDT Respiratory Rate 16 05/17/2023 11:43 AM EDT Oxygen Saturation 100% 05/17/2023 11:43 AM EDT Inhaled Oxygen Concentration - - [...] by your doctor, do not take any [id number] medicines or herbal preparations without first discussing this with your doctor or pharmacist. There is the possibilityof side effect and interactions when these are combined. Follow up Care Who to Call with Questions or Problems If there are any questions or problems that you think might be related to your cardiac cath or angioplasty, contact the personal care aide suggestion clerk by calling [facility] at . documented in this [...] is in the chart Byron Giraldo Pager [phone] documented in this encounter Plan of Treatment Upcoming Encounters Date Type Department Care Team (Late st Contact Info) Description 08/27/2024 2:30 PM EST [place] [address] Susanna Cm APRN [facility] [place] [address] documented as of this encounter Procedures Procedure Name Priority Date/Time Associated Diagnosis Comments POCT GLUCOSE Routine 05/17/2023 5:31 PM EDT CARDIAC CATHETERIZATION Routine 05/17/2023 3:52 PM EDT Screening for cardiovascular condition Aortic valve disease ASCVD (arteriosclerotic cardiovascular disease) Cath Plmt Left Heart Cath & Arts W/Inj & Angio Img S&I ([id number]) 05/17/2023 1:41 PM EDT Screening for cardiovascular [...] * POCT Glucose (05/17/2023 5:31 PM EDT) [facility] Signature Glucose, POC 126 65 - 199 mg/dL [facility] Comment: Supplemental ranges: <140 mg/dL before meals <180 mg/dL all other times of the day Blood 05/17/2023 5:31 PM EDT 05/17/2023 5:31 PM EDT Avani Onofre MD POINT OF CARE TEST ORDERABLES [facility] [place] [address] * CARDIAC CATHETERIZATION (05/17/2023 3:52 PM EDT) Anatomical Region Laterality Modality Other Narrative 05/18/2023 11:42 AM EDT ?[facility] ? Cardiac Catheterization/Intervention Report ? Patient Name: Ekaterina, Johnson R. ? Procedure Date: 05/17/2023 ? A #: [id number] ? Primary Physician: Avani Danielle I ? Case #: [id number] ? File Name: [id number] ? Catheterization Order Number: [id number] ? [facility] ? Final Report [place], [place] ? Patient Name: ? Johnson López. Ekaterina ? ID#: ?[id number] ? : ?1950 ? Procedure Date: ? May 17, 2023 ? Case #: ? [id number] ? Room: ? 1 ? Case Physician: ? Avani Danielle M.D. ? Start: ?14:15 ?Fellow: ? Byron Acunandgilma M.D. ? Admission: ??05/17/2023 ?Everett [place] M.D. [...] procedure was Elective. The indication for ?the propagator laborer visit is new onset angina less than [...] was normal and ? was via the chilkat vessel and a bypass graft. ? There [...] (SUNITA Grade 2) and was via the chilkat ? vessel and collaterals from the RCA. [...] Procedure Note Avani Danielle MD - 05/18/2023 [facility] Cardiac Catheterization/Intervention Report Patient Name: Ekaterina, Johnson Simms Procedure Date: 05/17/2023 A #: [id number] Primary Physician: Avani Danielle I Case #: [id number] File Name: [id number] Catheterization Order Number: [id number] [facility] FinalReport [place], [place] Patient Name: Johnson Tobar ID#:[id number] :1950 Procedure Date: May 17, 2023 Case [...] designated as ASA Class II. The [facility] clinical frailtyscale is 3: Managing Well. Diagnostic [...] diagnostic procedure was Elective. Theindication for the propagator laborer visit is new onset angina less than [...] Distal flow was normaland was via the chilkat vessel and a bypass graft. There was [...] (SUNITA Grade 2) and was via the chilkat vessel and collaterals from the RCA. Bypass [...] (Bezet) 432 ms MUSE SYSTEM Calculated P Ladora 24 degrees MUSE SYSTEM Calculated R Ladora -9 degrees MUSE SYSTEM Calculated T [place]ora -7 degrees MUSE SYSTEM INTERPRETATION Sinus rhythm [...] * POCT Glucose (05/17/2023 11:57 AM EDT) Glucose, POC 122 65 - 199 mg/dL [facility] Comment: Supplemental ranges: <140 mg/dL before meals <180 mg/dL all other times of the day Blood 05/17/2023 11:5 7 AM EDT 05/17/2023 11:57 AM EDT Avani Onofre MD POINT OF C[place] [address] * (ABNORMAL) Differential, Automated (05/17/2023 10:31 AM EDT) Neutrophil % 55.5 % [facility] Neutrophil Absolute 4.98 1.70 - 6.10 x10(3)/mc L [facility] Lymph % 25.6 % [facility] Lymphocytes Abs 2.3 0.9 - 3.2 x10(3)/mc L [facility] Monocyte % 13.4 % [facility] Monocyte Abs 1.2(H) 0.3 - 0.9 x10(3)/mc L [facility] Eos % 4.1 % [facility] Eosinophils Abs 0.4 0.0 - 0.4 x10(3)/mc L [facility] Basophil % 1.1 % [facility] Baso Absolute 0.1 0.0 - 0.1 x10(3)/mc L [facility] Immature Gran % 0.30 % [facility] Comment: Immature granulocytes(IG's)percentage and absolute count will include metamyelocytes, myelocytes, and promyelocytes. Blood smears from CBCs yielding IG's will be scanned manually for concordance. If this scan disagrees with the automated IG or if promyelocytes are noted, a manual differential will be performed. Immature Gran Absolute 0.03 0.00 - 0.04 x10(3)/mc L [facility] Blood 05/17/2023 10:3 1 AM EDT 05/17/2023 10:36 AM EDT Narrative Resulting Agency Comment Spec In Lab Johnathan [facility] [place] [address] * (ABNORMAL) Hemogram (05/17/2023 10:31 AM EDT) White Blood Cell 9.0 4.0 - 9.5 x10(3)/mc L [facility] Red Blood Cell 5.03 4.58 - 5.54 x10(6)/mc L [facility] Hemoglobin 13.3(L) 13.7 - 16.5 g/dL [facility] Hematocrit 41.2 40.5 - 48.5 % [facility] Mean Cell Volume 81.9(L) 82.9 - 93.1 fL [facility] Mean Cell Hemoglobin 26.4(L) 27.5 - 32.1 pg [facility] Mean Cell Hemoglobin Concentration 32.3 32.0 - 35.7 g/dL [facility] Platelet 167 145 - 357 x10(3)/mc L [facility] RDW Standard Deviation 43.8 36.0 - 45.0 fL [facility] RDW coefficient of variation 14.7(H) 11.4 - 13.8 % [facility] Mean Platelet Volume 11.5 7.6 - 12.9 fL [facility] NRBC% auto 0.0 % [facility] NRBC Absolute 0.000 0.000 - 0.000 x10(3)/ L [facility] Blood 05/17/2023 10:3 1 AM EDT 05/17/2023 10:36 AM EDT Narrative Resulting Agency Comment Spec In Lab Johnathan KISER HEMATOLOGY ORDERABLE S [facility] [place] [address] * Basic Metabolic Panel (non-fasting) (05/17/2023 10:31 AM EDT) Glucose 151 65 - 199 mg/dL [facility] Comment:Diabetes: >=200 mg/d L plus symptoms Blood Urea Nitrogen 18 10 - 20 mg/dL [facility] Creatinine 1.20 0.80 - 1.50 mg/dL [facility] Sodium 135 135 - 145 mmol/L [facility] Potassium 4.5 3.5 - 5.0 mmol/L [facility] Comment: Please note: ??Patients with WBC >100,000 may have falsely elevated Potassium levels. ??For accurate Potassium quantification in these patients send serum separator tube (gold top) for subsequent determinations. ??Contact the Clinical Chemistry Laboratory if there are any questions. Chloride 99 98 - 107 mmol/L [facility] Carbon Dioxide 23 22 - 31 mmol/L [facility] Anion Gap 13 5 - 15 mmol/L [facility] Calcium 9.9 8.5 - 10.5 mg/dL [facility] Est Glomerular Filtration Rate 64 >=60 mL/min/1. 73 m?? [facility] Comment: This patient's estimated GFR [...] MD CHEMISTRY ORDERABLE S Performing Organization Address City/State/[facility] Co de Phone Number [facility] [place] [address] documented in this encounter Visit Diagnoses Diagnosis Screening for cardiovascular condition Screening for other [...] Coronary atherosclerosis of unspecified type of vessel, chilkat or graft documented in this encounter Administered Medications Inactive Administered Medications - up to 3 most recent administrations Medication Order MAR Action Action Date Dose Rate Site aspirin chewable tablet PRN, Starting on Sat05/17/23 at 1359, Until Sat05/17/23 at 1546, Intra-Operative (Intra-Procedure), Routine Given 05/17/2023 1:59 PM EDT 324 mg clopidogreL (Plavix) tablet PRN, Starting on Sat05/17/23 at 1458, Until Sat05/17/23 at 1546, Intra-Operative (Intra-Procedure), Routine Given 05/17/2023 2:58 PM EDT 600 mg fentaNYL (pf) (50 mcg/mL) multi-dose injection PRN, Starting on Sat05/17/23 at 1406, Until Sat05/17/23 at 1546, Intra-Operative (Intra-Procedure), Routine Given 05/17/2023 3:40 PM EDT 25 mcg Given 05/17/2023 2:21 PM EDT 25 mcg Given 05/17/2023 2:06 PM EDT 25 mcg heparin (porcine) (1,000 units/mL) injection PRN, Starting on Sat05/17/23 at 1447, Until Sat05/17/23 at 1546, Intra-Operative (Intra-Procedure), Routine Given 05/17/2023 3:15 PM EDT 3,000 Units Given 05/17/2023 2:59 PM EDT 4,000 Units Given 05/17/2023 2:47 PM EDT 2,000 Units iohexoL (Omnipaque) (350 mg/mL) solution PRN, Starting on Sat05/17/23 at 1541, Until Sat05/17/23 at 1546, Intra-Operative (Intra-Procedure), Routine Given 05/17/2023 3:41 PM EDT 150 mLs midazolam (pf) (Versed) (1 mg/mL) multi-dose injection PRN, Starting on Sat05/17/23 at 1406, Until Sat05/17/23 at 1546, Intra-Operative (Intra-Procedure), Routine Given 05/17/2023 2:21 PM EDT 1 mg Given 05/17/2023 2:06 PM EDT 1 mg sodium chloride 0.9% infusion 200 mL/hr, Intravenous, [...] RN) documented in this encounter Care Teams Air Reduction Equipment Operator Relationship Specialty Start Date End Date Ramiro Ball MD [address] [place] [id number] PCP - General 06/06/10 02/17/24 documented as of this encounter
--- OUTSIDE RECORDS SUMMARY | 2024-03-26 15:52 | XMS_ITS | Encounter Summary ---
Author Organization [facility] [place] [address] Care Team Providers Care Roof Painter Name Role Phone Ramiro Ball MD Primary Care Provider [phone] Encounter Details Date Type Department Care Team (Late st Contact Info) Description 05/07/2023 Orders Only [employer] [place] [address] Johnathan Kothari PA [facility] [place] [address] Screening for cardiovascular condition; Aortic valve disease; ASCVD (arteriosclerotic cardiovascular disease) Social History Tobacco Use Types Packs/Day Years [...] 2:30 PM EST [place] [address] Susanna Cm, SNOWBOARDING INSTRUCTOR [facility] NEUROLOGY DEPT [place], [place] [phone] documented as of this encounter Results * Basic Metabolic Panel (non-fasting) (05/17/2023 10:31 AM EDT) Glucose 151 65 - 199 mg/dL [facility] Comment:Diabetes: >=200 mg/d L plus symptoms Blood Urea Nitrogen 18 10 - 20 mg/dL [facility] Creatinine 1.20 0.80 - 1.50 mg/dL [facility] Sodium 135 135 - 145 mmol/L [facility] Potassium 4.5 3.5 - 5.0 mmol/L [facility] Comment: Please note: ??Patients with WBC >100,000 may have falsely elevated Potassium levels. ??For accurate Potassium quantification in these patients send serum separator tube (gold top) for subsequent determinations. ??Contact the Clinical Chemistry Laboratory if there are any questions. Chloride 99 98 - 107 mmol/L [facility] Carbon Dioxide 23 22 - 31 mmol/L [facility] Anion Gap 13 5 - 15 mmol/L [facility] Calcium 9.9 8.5 - 10.5 mg/dL [facility] Est Glomerular Filtration Rate 64 >=60 mL/min/1. 73 m?? [facility] Comment: This patient's estimated GFR [...] Lab Avani Onofre MD CHEMISTRY ORDERABLE S [facility] [place] [address] documented in this encounter Visit Diagnoses Diagnosis Screening for cardiovascular condition Screening for other and unspecified cardiovascular conditions Aortic valve disease Aortic valve disorders ASCVD (arteriosclerotic cardiovascular disease) Unspecified cardiovascular disease documented in this encounter Care Teams Roof Painter Relationship Specialty Start Date End Date Ramiro Ball MD [address] [place] [phone] PCP - General 06/06/10 02/17/24 documented as of this encounter
--- OUTSIDE RECORDS SUMMARY | 2024-03-26 15:52 | XMS_ITS | Encounter Summary ---
[place] [address] Care Team Providers Care Tree Loader Meat Name Role Phone Tamia Tsai Primary Care Provider Reason for Referral * Consultation (STAT) - Authorized Specialty Diagnoses / Procedures Referred By Luca beltran Referred To Contact [facility] Diagnoses Other spondylosis with myelopathy, lumbar region Spine- lumbar disc protrusion w/compression/ radicular sx/ MRI 02/14/24 & XR 01/26/24 @ [facility] Tamia Tsai PA [address] [place] [address] [facility] [place] [address] Referral ID Status Reason Start Date Expiration Date Visits Requested Visits Authorized [id number] Authorized Consult, Test & Treat PCP Updated and/or Approved 02/18/2024 08/20/2024 1 1 Encounter Details Date Type Department Care Team (Latest Contact Info) Description 02/18/2024 Transcribe Orders eDH Incoming Referrals [phone] Tamia Tsai PA [address] [place] [phone] Other spondylosis with myelopathy, lumbar region Social History Tobacco Use Types Packs/Day Years Used Date Smoking Tobacco: Never Smokeless Tobacco: Never Alcohol Use Standard Drinks/Week Comments Not Currently 0 (1 standard drink = 0.6 oz pur e alcohol) [facility] Inpatient Questions Answer Date Recorded Does [...] 2:30 PM EST [place] [address] Susanna Cm APRN [facility] [place] [address] Scheduled Referrals Name Type Priority Associated Diagnoses Orde r Schedule Referral to Spine Center Outpatient Referral STAT Other spondylosis with myelopathy, lumbar region Ordered: 02/18/2024 documented as of this encounter Visit Diagnoses Diagnosis Other spondylosis with myelopathy, lumbar region documented in this encounter Care Teams Tree Loader Meat Relationship Specialty Start Date End Date Tamia Tsai PA [address] [place] [phone] PCP - General Family Medicine 02/18/24 documented as of this encounter
--- OUTSIDE RECORDS SUMMARY | 2024-03-26 15:52 | XMS_ITS | Encounter Summary ---
Author Organization [facility] [place] [place] [address] Care Team Providers Care Director Athletic Name Role Phone Ramiro Ball MD Primary Care Provider [phone] Reason for Visit * Auth/Cert (Routine) Specialty Diagnoses / Procedures Referred By Luca t Referred To Contact Diagnoses Encounter for screening for cardiovascular disorders Nonrheumatic aortic valve disorder, unspecified Atherosclerotic heart disease of [place] coronary artery without angina pectoris Screening for cardiovascular condition [Z13.6] Aortic valve disease [I35.9] ASCVD (arteriosclerotic cardiovascular disease) [I25.10] Procedures PRG CATH PLMT LEFT HEART CATH & ARTS W/INJ & ANGIO IMG S&I CARDIAC CATHETERIZATION CORONARY ANGIOGRAPHY; W LHC,POSSIBLE PCI (WRVU 5.6) Avani Danielle MD [facility] [place] [address] [facility] Referral ID Status Reason Start Date Expiration Date Visits Re quested Visits Authorized [id number] 1 1 Encounter Details Date Type Department Care Team (Latest Contact Info) Description 06/12/2023 11:00 AM [facility] Hospital [place] [phone] Avani Danielle MD [facility] [address] [place], [place] [phone] Coronary artery disease, unspecified vessel or lesion type, unspecified whether angina present, unspecified whether [place] or transplanted heart Social History Tobacco Use [...] any time in the past 12 m [facility], were you homeless or living in a snf (including now)? No 03/18/2024 DH IPV Inpatient [...] 2:30 PM EST [place] [address] Susanna mC APRN [facility] [place] [address] Scheduled Orders Name Type Priority Associated Diagnoses Orde r Schedule Cardiac Catheterization Cardiac Cath Routine Coronary artery disease, unspecified vessel or lesion type, unspecified whether angina present, unspecified whether [place] or transplanted heart One Time for 1 [...] 10:06 AM EST) Neutrophil % 62.7 % [facility] Neutrophil Absolute 4.25 1.70 - 6.10 x10(3)/[facility] Lymph % 21.4 % [facility] Lymphocytes Abs 1.4 0.9 - 3.2 x10(3)/[facility] Monocyte % 10.9 % [facility] Monocyte Abs 0.7 0.3 - 0.9 x10(3)/[facility] Eos % 2.8 % [facility] Eosinophils Abs 0.2 0.0 - 0.4 x10(3)/[facility] Basophil % 1.8 % [facility] Baso Absolute 0.1 0.0 - 0.1 x10(3)/[facility] Immature Gran % 0.40 % [facility] Comment: Immature granulocytes(IG's)percentage and absolute count will include metamyelocytes, myelocytes, and promyelocytes. Blood smears from CBCs yielding IG's will be scanned manually for concordance. If this scan disagrees with the automated IG or if promyelocytes are noted, a manual differential will be performed. Immature Gran Absolute 0.03 0.00 - 0.04 x10(3)/mcL [facility] Blood 06/12/2023 10:0 6 AM EST 06/12/2023 10:16 AM EST Narrative Resulting Agency Comment Spec In Lab Everett [place] MD HEMATOLOGY ORDERABLE S [facility] [place] [place] [address] * (ABNORMAL) Hemogram (06/12/2023 10:06 AM EST) White Blood Cell 6.8 4.0 - 9.5 x10(3)/mc L [facility] Red Blood Cell 4.67 4.58 - 5.54 x10(6)/mc L [facility] Hemoglobin 12.4(L) 13.7 - 16.5 g/dL [facility] Hematocrit 38.1(L) 40.5 - 48.5 % [facility] Mean Cell Volume 81.6(L) 82.9 - 93.1 fL [facility] Mean Cell Hemoglobin 26.6(L) 27.5 - 32.1 pg [facility] Mean Cell Hemoglobin Concentration 32.5 32.0 - 35.7 g/dL [facility] Platelet 181 145 - 357 x10(3)/mc L [facility] RDW Standard Deviation 48.7(H) 36.0 - 45.0 fL [facility] RDW coefficient of variation 16.6(H) 11.4 - 13.8 % [facility] Mean Platelet Volume 11.7 7.6 - 12.9 fL [facility] NRBC% auto 0.0 % [facility] NRBC Absolute 0.000 0.000 - 0.000 x10(3)/mc L [facility] Blood 06/12/2023 10:0 6 AM EST 06/12/2023 10:16 AM EST Narrative Resulting Agency Comment Spec In Lab Everett [place] MD HEMATOLOGY ORDERABLE S [facility] [place] [place] [address] * (ABNORMAL) BMP w/fasting Glucose (06/12/2023 10:06 AM EST) Glucose Fasting 152(H) 65 - 99 mg/dL [facility] Comment: ?Fasting* Glucose Interpretive Criteria Normal [...] of Diabetes Mellitus, Position Statement from the [place] [employer]. ??Diabetes Care, Volume 33, Supplement 1, Jul 2009 Blood Urea Nitrogen 12 10 - 20 mg/dL [facility] Creatinine 0.99 0.80 - 1.50 mg/dL [facility] Sodium 137 135 - 145 mmol/L [facility] Potassium 4.9 3.5 - 5.0 mmol/L [facility] Comment: Please note: ??Patients with WBC >100,000 may have falsely elevated Potassium levels. ??For accurate Potassium quantification in these patients send serum separator tube (gold top) for subsequent determinations. ??Contact the Clinical Chemistry Laboratory if there are any questions. Chloride 99 98 - 107 mmol/L [facility] Carbon Dioxide 26 22 - 31 mmol/L [facility] Anion Gap 12 5 - 15 mmol/L [facility] Calcium 9.7 8.5 - 10.5 mg/dL [facility] Est Glomerular Filtration Rate 80 >=60 mL/min/1. 73 m?? [facility] Comment: This patient's estimated GFR [...] Lab Avani Onofre MD CHEMISTRY ORDERABLE S [facility] [address] documented in this encounter Visit Diagnoses Diagnosis Coronary artery disease, unspecified vessel or lesion type, unspecified whether angina present, unspecified whether [place] or transplanted heart documented in this encounter Additional Health Concerns Infection Onset Date Last Indicated Resolved Time Rule Out Respiratory 03/17/2024 03/18/2024 024 1:29 AM EDT Rule Out COVID-19 03/17/2024 03/18/2024 03/18/2024 1:29 AM EDT documented as of this encounter Care Teams Director Athletic Relationship Specialty Start Date End Date Ramiro Ball MD [address] [place] [address] PCP - General 06/06/10 02/17/24 documented as of this encounter
--- OUTSIDE RECORDS SUMMARY | 2024-03-26 15:52 | XMS_ITS | Encounter Summary ---
Author Organization [facility] [place] [address] Care Team Providers Care Card Folder Name Role Phone Ramiro Ball MD Primary Care Provider [phone] Encounter Details Date Type Department Care Team (Late st Contact Info) Description 06/13/2023 Orders [place] [phone] Johnathan Kothari PA [facility] CARDIOLOGY [place], [place] [phone] Screening for cardiovascular condition; ASCVD (arteriosclerotic cardiovascular disease); Coronary artery disease, unspecified vessel or lesion type, unspecified whether angina present, unspecified whether mary's igloo or transplanted heart Social History Tobacco Use [...] 2:30 PM EST [place] [phone] Susanna Cm, [employer] READING TEACHER [facility] [place] [address] documented as of this encounter Visit Diagnoses Diagnosis Screening for cardiovascular condition Screening for other and unspecified cardiovascular conditions ASCVD (arteriosclerotic cardiovascular disease) Unspecified cardiovascular disease Coronary artery disease, unspecified vessel or lesion type, unspecified whether angina present, unspecified whether mary's igloo or transplanted heart documented in this encounter Care Teams Card Folder Relationship Specialty Start Date End Date Ramiro Ball MD [address] [place] [phone] PCP - General 06/06/10 02/17/24 documented as of this encounter
--- OUTSIDE RECORDS SUMMARY | 2024-03-26 15:53 | XMS_ITS | Encounter Summary ---
Author Organization [facility] [place] [address] Care Team Providers Care Manager Party Name Role Phone Ramiro Ball MD Primary Care Provider [phone] Reason for Referral * Diagnostic Test (Routine) - Closed Specialty Diagnoses / Procedures Referred By Luca beltran Referred To Contact Cardiology Diagnoses S/P CABG (coronary artery bypass graft) S/P AVR (aortic valve replacement) Procedures Echocardiogram Transthoracic([facility] or [facility]) Natalia Castro PA [facility] [place] [address] [facility] [place] [address] Referral ID Status Reason Start Date Expiration Date V isits Requested Visits Authorized [id number] Closed Specialty Service Requested 06/15/2020 06/15/2021 1 1 Reason for Visit * Diagnostic Test (Routine) - Closed Specialty Diagnoses / Procedures Referred By Luca beltran Referred To Contact Cardiology Diagnoses S/P CABG (coronary artery bypass graft) S/P AVR (aortic valve replacement) Procedures Echocardiogram Transthoracic([facility] or [facility]) Natalia Castro PA [facility] [place] [address] [facility] [place] [address] Referral ID Status Reason Start Date Expiration Date V isits Requested Visits Authorized [id number] Closed Specialty Service Requested 06/15/2020 06/15/2021 1 1 Encounter Details Date Type Department Care Team (Latest Contact Info) Description 07/21/2020 10:17 AM EST - 07/21/2020 12:01 PM EST Hospital Encounter Non-In[place] [address] S/P CABG (coronary artery bypass graft); S/P AVR (aortic valve replacement) Discharge Disposition: Home Social History Tobacco Use [...] Sig Dispensed Refills Start Date End Date glipiZIDE XL (Glucotrol XL) 10 mg Tablet Extended Rel 24 hr TAKE 1 TABLET BY MOUTH ONCE DAILY 05/03/2020 metFORMIN (GLUCOPHAGE) 1,000 mg Tablet TAKE ONE TABLET BY MOUTH TWICE A DAY 04/10/2020 lisinopriL (Prinivil;Zestril) 40 mg Tablet Take 1 [...] 2:30 PM EST [place] [address] Susanna Cm APRN [facility] [place] [address] documented as of this encounter Procedures Procedure Name Priority Date/Time Associated Diagnosis Comments ECHO COMPLETE Routine 07/21/2020 11:20 AM EST S/P CABG (coronary artery bypass graft) S/P AVR (aortic valve replacement) documented in this encounter Results * ECHO COMPLETE (07/21/2020 11:20 AM EST) EF 53 HEARTLAB SYSTEM Anatomical Region Laterality Modality Other 07/21/2020 Narrative 07/21/2020 12:14 PM EST Procedure: ?Transthoracic Echocardiogram Patient: ?ELMER BURTON R ? (Age): 1950(69y) Med Rec#: ? [id number] ?Sex: ?M ? Site Loc: ? [facility] ?Ht / Wt: ??170(cm)/84(kg) Pt. Loc: ?Echo Lab ?BSA: ?1.96 Study Date: ?? 07/21/2020 ?Pt. Type: Outpatient Tape: ? 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 Sinus BP: ? 123/50 HR: ? 61 SUMMARY: 1. The left ventricular chamber size is normal. ??Concentric left ventricular remodeling is observed. ??There is normal global left ventricular systolic function. The quantitative left ventricular ejection fraction by biplane Castro's method is 53%. There are no left ventricular segmental wall motion abnormalities. 2. The left atrium is severely dilated. ?? 3. The right ventricle is mildly dilated. Right ventricular global systolic function is mildly reduced. The estimated pulmonary artery systolic pressure is 38 mmHg. 4. The 23 mm bio-prosthetic aortic valve appears well seated with normal function. The mean trans-valvular gradient across ??the aortic valve is 6 mmHg. The peak instantaneous trans-valvular gradient across ??the aortic valve is 13 mmHg. There is no prosthetic aortic valve regurgitation present. 5. There is anterior and posterior mitral annular calcification. 6. Mild mitral leaflet calcification is visualized. ??Moderate mitral leaflet calcification is visualized. Mitral valve leaflet excursion is moderately reduced. There is mild to moderate mitral stenosis present. The mean gradient across the mitral valve is 3 mmHg at HR 61 bpm. There is trace mitral regurgitation present. Findings ? : Study Quality: ? Adequate Left Ventricle: ? The left ventricular chamber size is normal. ?Borderline concentric left ventricular hypertrophy is observed. remodeling ?There is no evidence of LVOT obstruction. ?No ventricular septal defect is visualized. ?There is normal global left ventricular systolic function. ?The quantitative left ventricular ejection fraction by biplane Castro's method is 53%. ?There are no left ventricular segmental wall motion abnormalities. ?Left ventricular diastolic function is abnormal. Left Atrium: ? The left atrium is severely dilated. 58 ml/m2. ?No atrial septal defect is visualized. Right Ventricle: ? The right ventricle is mildly dilated. ?Right ventricular global systolic function is mildly reduced. ?The estimated pulmonary artery systolic pressure is 38 mmHg. ?The estimated right atrial pressure is 3 mmHg. Right Atrium: ? The right atrium is mildly dilated. Aortic Valve: ? The peak instantaneous trans-valvular gradient across the aortic valve is 13 mmHg. ?The mean trans-valvular gradient across ??the aortic valve is 6 mmHg. ?The size of the prosthetic aortic valve is 23mm. ?The prosthetic aortic valve was implanted on 06/13/2020. ?A pericardial bio-prosthetic aortic valve is present. ?The bio-prosthetic aortic valve appears well seated with normal function. ?There is no prosthetic aortic valve regurgitation present. Mitral Valve: ? Moderate mitral leaflet calcification is visualized. ?Mitral valve leaflet excursion is moderately reduced. ?There is no evidence of mitral valve leaflet prolapse. ?There is anterior and posterior mitral annular calcification. ?The mean gradient across the mitral valve is 3 mmHg. HR 61 bpm. ?There is mild to moderate mitral stenosis present. ?There is trace mitral regurgitation present. Tricuspid Valve: ? The tricuspid valve appears normal in structure and function. ?There is mild (1+/4+) tricuspid regurgitation present. Pulmonic Valve: ? The pulmonic valve appears normal in structure and function. Pericardium: ? The pericardium appears normal and there is no evidence of a pericardial effusion. Aorta: ? The aortic root is normal in size. ?The ascending aorta is normal in size. ?There is no evidence of coarctation of the aorta. Pulmonary Artery: ? The main pulmonary artery appears normal. Venous: ? The inferior vena cava appears normal in size. ?There is a greater than 50% respiratory change in the inferior vena cava dimension. Misc: ? See remainder of report for additional findings. ?Two-dimensional echo, spectral Doppler and color Doppler performed. Chambers 2D ?Value ?Units (Range) ? IVSd (2D) ? 1.23 ? cm ? LVPWd (2D) ?1.21 ? cm ? IVS:LVPW ratio (2D) 1.01 ? ratio ? RWT (2D) ?0.62 ? ratio ? RWT PW (2D) ? 0.61 ? ratio ? LVIDd (2D) ?3.97 ? cm ? LVIDs (2D) ?2.62 ? cm ? LVIDd (2D) index ?2.03 ? cm/m2 ? LVIDs (2D) index ?1.34 ? cm/m2 ? LV FS (2D) ?33.95 ?% ? EF Teichholz (2D) ?? 63.45 ?% ? Ao root diameter (2D3.44 ? cm (2.1 - 3.6) ? Ascending Ao ?3 ?cm (2 - 3.5) ? Volumes/Mass ?Value ?Units (Range) ? LA Area 4 CH ?31 ? cm2 (<21) ? LA ESV BP (A/L) inde58.32 ?ml/m2 ? RA AREA 4CH ? 18 ? cm2 ? LA ESV BP (MOD) inde58 ? ml/m2 ? LV ESV SP 4CH (MOD) 38.05 ?ml ? LV ESV SP 2CH (MOD) 38.75 ?ml ? LV EDV BP ? 84.76 ?ml ? LV ESV BP ? 39.86 ?ml ? LV EDV BP index ? 43.34 ?ml/m2 ? LV ESV BP index ? 20.38 ?ml/m2 ? BP EF (MOD) ? 52.98 ?% ? LV mass (2D) ?167.6 ?g ? LV mass (2D) index ??85.71 ?g/m2 ? Diastolic/Systolic Function ?Value ?Units (Range) ? MV E-wave Vmax ?1.11 ? m/sec ? MV deceleration ntqh774.7 ?msec ? MV A-wave Vmax ?1.57 ? m/sec ? MV E:A ratio ?0.7 ?ratio ? LV septal e' Vmax ?? 0.05 ? m/sec ? LV lateral e' Vmax ??0.1 ?m/sec ? LV average e' Vmax ??0.08 ? m/sec ? LV E:e' septal ratio22.14 ?ratio ? LV E:e' lateral rati11.07 ?ratio ? LV average E:e' rati14.76 ?ratio ? Aortic Valve ?Value ?Units (Range) ? AV Vmax ? 1.79 ? m/sec ? AV VTI ?33.06 ?cm ? AV peak gradient ?13 ? mmHg ? AV mean gradient ?6 ?mmHg ? LVOT Vmax ? 1.18 ? m/sec ? LVOT VTI ?24.31 ?cm ? LVOT peak gradient ??5.59 ? mmHg ? LVOT mean gradient ??2.54 ? mmHg ? DOI (VTI) ? 0.74 ? ratio ? DOI (Vmax) ?0.66 ? ratio ? Mitral Valve ?Value ?Units (Range) ? MV Vmax ? 1.48 ? m/sec ? MV VTI ?47.94 ?cm ? MV peak gradient ?8.76 ? mmHg ? MV mean gradient ?3 ?mmHg ? MV PHT ?137.37 ? msec ? MVA (PHT) ? 1.6 ?cm2 ? Tricuspid Valve ?Value ?Units (Range) ? TR Vmax ? 2.97 ? m/sec ? TR peak gradient ?35 ? mmHg ? RAP ? 3 ?mmHg ? RVSP ?38 ? mmHg ? Measurement Trending Name ? 07/21/2020 ? MV mean gradient ? 3 Wall Motion: Segment Name ?Rest ? Base-Anteroseptal ?? Normal ? Base-Anterior ? Normal ? Base-Anterolateral ??Normal ? Base-Posterolateral Normal ? Base-Inferior ? Normal ? Base-Inferoseptal ?? Normal ? Mid-Anteroseptal ?Normal ? Mid-Anterior ?Normal ? Mid-Anterolateral ?? Normal ? Mid-Posterolateral ??Normal ? Mid-Inferior ?Normal ? Mid-Inferoseptal ?Normal ? [place]-Septal ? Normal ? [place]-Anterior ? Normal ? [place]-Lateral ?Normal ? [place]-Inferior ? Normal ? [place]-Tip ?Normal ? This report has been electronically signed by: John Andrade MD ? 07/21/2020 12:13:35 Images reviewed and interpretation verified [facility] Cardiac Ultrasound Laboratory Procedure Note John Andrade MD - 07/21/2020 Procedure: Transthoracic Echocardiogram Patient: ELMER DIAZ(Age): 1950(69y) Med Rec#: [id number] Sex: M Site Loc: [facility] Ht / Wt: 170(cm)/84(kg) Pt. Loc: Echo Lab BSA: 1.96 Study Date: 07/21/2020 Pt. 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 The left ventricular chamber size [...] bpm. There is trace mitral regurgitation present. Findings : Study Quality: Adequate Left Ventricle: The left ventricular chamber size is normal. Borderline concentric left ventricular hypertrophy is observed. remodeling There is no evidence of LVOT obstruction. No ventricular septal defect is visualized. There is normal global left ventricular systolic function. The quantitative left ventricular ejection fraction by biplane Castro's method is 53%. There are no left ventricular segmental wall motion abnormalities. Left ventricular diastolic function is abnormal. Left Atrium: The left atrium is severely dilated. 58 ml/m2. No atrial septal defect is visualized. Right Ventricle: The right ventricle is mildly dilated. Right ventricular global systolic function is mildly reduced. The estimated pulmonary artery systolic pressure is 38 mmHg. The estimated right atrial pressure is 3 mmHg. Right Atrium: The right atrium is mildly dilated. Aortic Valve: The peak instantaneous trans-valvular gradient across the aortic valve is 13 mmHg. The mean trans-valvular gradient across the aortic valve is 6 mmHg. The size of the prosthetic aortic valve is 23mm. The prosthetic aortic valve was implanted on 06/13/2020. A pericardial bio-prosthetic aortic valve is present. The bio-prosthetic aortic valve appears well seated with normal function. There is no prosthetic aortic valve regurgitation present. Mitral Valve: Moderate mitral leaflet calcification is visualized. Mitral valve leaflet excursion is moderately reduced. There is no evidence of mitral valve leaflet prolapse. There is anterior and posterior mitral annular calcification. The mean gradient across the mitral valve is 3 mmHg. HR 61 bpm. There is mild to moderate mitral stenosis present. There is trace mitral regurgitation present. Tricuspid Valve: The tricuspid valve appears normal in structure and function. There is mild (1+/4+) tricuspid regurgitation present. Pulmonic Valve: The pulmonic valve appears normal in structure and function. Pericardium: The pericardium appears normal and there is no evidence of a pericardial effusion. Aorta: The aortic root is normal in size. The ascending aorta is normal in size. There is no evidence of coarctation of the aorta. Pulmonary Artery: The main pulmonary artery appears normal. Venous: The inferior vena cava appears normal in size. There is a greater than 50% respiratory change in the inferior vena cava dimension. Misc: See remainder of report for additional findings. Two-dimensional echo, spectral Doppler and color Doppler performed. Chambers 2D Value Units (Range) IVSd (2D) 1.23 cm LVPWd (2D) 1.21 cm IVS:LVPW ratio (2D) 1.01 ratio RWT (2D) 0.62 ratio RWT PW (2D) 0.61 ratio LVIDd (2D) 3.97 cm LVIDs (2D) 2.62 cm LVIDd (2D) index 2.03 cm/m2 LVIDs (2D) index 1.34 cm/m2 LV FS (2D) 33.95 % EF Teichholz (2D) 63.45 % Ao root diameter (2D3.44 cm (2.1 - 3.6) Ascending Ao 3 cm (2 - 3.5) Volumes/Mass Value Units (Range) LA Area 4 CH 31 cm2 (<21) LA ESV BP (A/L) inde58.32 ml/m2 RA AREA 4CH 18 cm2 LA ESV BP (MOD) inde58 ml/m2 LV ESV SP 4CH (MOD) 38.05 ml LV ESV SP 2CH (MOD) 38.75 ml LV EDV BP 84.76 ml LV ESV BP 39.86 ml LV EDV BP index 43.34 ml/m2 LV ESV BP index 20.38 ml/m2 BP EF (MOD) 52.98 % LV mass (2D) 167.6 g LV mass (2D) index 85.71 g/m2 Diastolic/Systolic Function Value Units (Range) MV E-wave Vmax 1.11 m/sec MV deceleration ceqf466.7 msec MV A-wave Vmax 1.57 m/sec MV E:A ratio 0.7 ratio LV septal e' Vmax 0.05 m/sec LV lateral e' Vmax 0.1 m/sec LV average e' Vmax 0.08 m/sec LV E:e' septal ratio22.14 ratio LV E:e' lateral rati11.07 ratio LV average E:e' rati14.76 ratio Aortic Valve Value Units (Range) AV Vmax 1.79 m/sec AV VTI 33.06 cm AV peak gradient 13 mmHg AV mean gradient 6 mmHg LVOT Vmax 1.18 m/sec LVOT VTI 24.31 cm LVOT peak gradient 5.59 mmHg LVOT mean gradient 2.54 mmHg DOI (VTI) 0.74 ratio DOI (Vmax) 0.66 ratio Mitral Valve Value Units (Range) MV Vmax 1.48 m/sec MV VTI 47.94 cm MV peak gradient 8.76 mmHg MV mean gradient 3 mmHg MV PHT 137.37 msec MVA (PHT) 1.6 cm2 Tricuspid Valve Value Units (Range) TR Vmax 2.97 m/sec TR peak gradient 35 mmHg RAP 3 mmHg RVSP 38 mmHg Measurement Trending Name 07/21/2020 MV mean gradient 3 Wall Motion: Segment Name Rest Base-Anteroseptal Normal Base-Anterior Normal Base-Anterolateral Normal Base-Posterolateral Normal Base-Inferior Normal Base-Inferoseptal Normal Mid-Anteroseptal Normal Mid-Anterior Normal Mid-Anterolateral Normal Mid-Posterolateral Normal Mid-Inferior Normal Mid-Inferoseptal Normal [place]-Septal Normal [place]-Anterior Normal [place]-Lateral Normal [place]-Inferior Normal [place]-Tip Normal This report has been electronically signed by: John Andrade MD 07/21/2020 12:13:35 Images reviewed and interpretation verified [facility] Chun Wiley MD ECHO ORDERABLES documented in this encounter Visit Diagnoses Diagnosis S/P CABG (coronary artery bypass graft) Postsurgical aortocoronary bypass status S/P AVR (aortic valve replacement) Heart valve replaced by other means documented in this encounter Care Teams Manager Party Relationship Specialty Start Date End Date Ramiro Ball MD [address] [place] [id number] PCP - General 06/06/10 02/17/24 documented as of this encounter
--- OUTSIDE RECORDS SUMMARY | 2024-03-26 15:53 | XMS_ITS | Encounter Summary ---
Author Organization [facility] Address [facility] Juan Miguel [facility] [place] [address] Care Team Providers Care Tick Sewer Name Role Phone Ramiro Ball MD Primary Care Provider [phone] Encounter Details Date Type Department Care Team (Late st Contact Info) Description 07/21/2020 1:00 PM EST Office [place] [address] Chun Wiley MD [facility] [place] [address] S/P CABG (coronary artery bypass graft); S/P AVR (aortic valve replacement) Social History Tobacco Use Types Packs/Day Years [...] Sign Reading Time Taken Comments Blood Pressure 126/62 07/21/2020 12:54 PM EST Pulse 69 07/21/2020 12:54 PM EST Temperature - - Respiratory Rate 20 07/21/2020 12:54 PM EST Oxygen Saturation 100% 07/21/2020 12:54 PM EST Inhaled Oxygen Concentration - - Weight 80.8 kg (178 lb 3.2 oz) 07/21/2020 12:54 PM EST Height 170.2 cm (5' 7) 07/21/2020 12:54 PM EST Body Mass Index 27.91 07/21/2020 12:54 PM EST documented in this encounter Progress Notes * Chun Wiley MD - 07/21/2020 1:00 PM EST Pt. Johnson Tobar ( 1950) ? Primary Care Provider:?Ramiro Ball MD? REFERRING PROVIDER's:?Joseph Lackey MD, Jim Castelan MD Thank you for the opportunity to meet with Mr. Tobar as a follow-up visit from his aortic valvereplacement. He presents ambulatory to the office looks and states that he feels well. He denies effort dyspnea or angina. His postoperative chest x-ray is clear. His postoperative echo was unremarkable, his systolic function is in the 50s, the mean gradient across his prosthesis is 6, there is no AR. On examination he is a blood pressure 126/60, his heart rates in the 70s at sinus by palpation. His midline sternal wound is healed well the underlying sternum is firm to palpation there is no click. There is no diastolic murmur. His chest is clear to auscultation. In summary, Mr. Tobar is recovered nicely following his aortic valve replacement. We are going to discharge him from our service at this time and leave him in your care. In the interim should there be anything further that I can provide please do not hesitate to contact my office. This personal regards, Chun Wiley MD [phone] documented in this encounter Plan of Treatment Upcoming Encounters Date Type Department Care Team (Late st Contact Info) Description 08/27/2024 2:30 PM EST [place] [address] Susanna Cm, PRINCIPAL INVESTIGATOR [facility] [place] [address] documented as of this encounter Procedures Procedure Name Priority Date/Time Associated Diagnosis Comments EKG 12-LEAD Routine 07/21/2020 12:50 PM EST S/P CABG (coronary artery bypass graft) S/P AVR (aortic valve replacement) documented in this encounter Results * EKG 12 Lead (07/21/2020 12:50 PM EST) Ventricular rate 69 BPM MUSE SYSTEM Atrial Rate 69 BPM MUSE SYSTEM P-R Interval 128 ms MUSE SYSTEM QRS Duration 90 ms MUSE SYSTEM Q-T Interval 404 ms MUSE SYSTEM QTC Calculated (Bezet) 432 ms MUSE SYSTEM Calculated P [place] 20 degrees MUSE SYSTEM Calculated R [place] -17 degrees MUSE SYSTEM Calculated T [place] -34 degrees MUSE SYSTEM INTERPRETATION Normal sinus rhythm Possible Left atrial enlargement Left ventricular hypertrophy Inferior infarct (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-2020) T wave abnormality, consider lateral ischemia Abnormal ECG When compared with ECG of 13-JUN-2020 14:20, ST no longer elevated in Anterior leads T wave inversion now evident in Anterolateral leads Confirmed by MD Mclain Daniel ([id number]) on 07/21/2020 6:32:41 PM MUSE SYSTEM 07/21/2020 12:5 0 PM EST 07/21/2020 6:32 PM EST Chun Wiley MD ECG ORDERABLES MUSE SYSTEM documented in this encounter Visit Diagnoses Diagnosis S/P CABG (coronary artery bypass graft) Postsurgical aortocoronary bypass status S/P AVR (aortic valve replacement) Heart valve replaced by other means documented in this encounter Care Teams Tick Sewer Relationship Specialty Start Date End Date Ramiro Ball MD [address] [place] [address] PCP - General 06/06/10 02/17/24 documented as of this encounter
--- OUTSIDE RECORDS SUMMARY | 2024-03-26 15:53 | XMS_ITS | Encounter Summary ---
Author Organization [facility] Address [facility] [place] [address] Care Team Providers Care Basic Sciences Dean Name Role Phone Ramiro Ball MD Primary Care Provider [phone] Encounter Details Date Type Department Care Team (Latest Contact Info) Description 07/21/2020 12:02 PM EST - 07/21/2020 11:59 PM EST Hospital Encounter XRay at [address] [place] [address] [facility] [place] [address] S/P CABG (coronary artery bypass graft); S/P [...] 2:30 PM EST Office [place] [address] [facility] [place] [address] documented as of this encounter Procedures Procedure Name Priority Date/Time Associated Diagnosis Comments XR CHEST PA AND LATERAL Routine 07/21/2020 12:15 PM EST S/P CABG (coronary artery bypass graft) S/P AVR (aortic valve replacement) documented in this encounter Results * XR Chest PA & Lateral (Generic) (07/21/2020 12:15 PM EST) Anatomical Region Laterality Modality Chest N/A Digital Radiogra phy Impressions 07/21/2020 12:18 PM EST Resolved bibasilar pleural effusions. Resolved atelectasis on the right. Residual linear atelectasis versus scarring on the left. Thank you for letting us participate in the care of this patient. For questions regarding this report, please contact the number below. ? Narrative 07/21/2020 12:18 PM EST EXAMINATION: XR CHEST PA AND LATERAL (GENERIC) CLINICAL HISTORY: S/P AVR/CABGx3 TECHNIQUE: PA and lateral views of the chest. COMPARISON: 06/16/2020. FINDINGS: Resolved bibasilar pleural effusions. Resolved atelectasis on the right. Residual linear atelectasis versus scarring at the left lung base. The lungs appear clear. The cardiomediastinal silhouette, shelly, pulmonary vessels, and pleura are within normal limits. Prosthetic valve and intact sternotomy wires are present, as before. No significant osseous findings are seen. Procedure Note Deja Haley MD - 07/21/2020 EXAMINATION: XR CHEST PA AND LATERAL (GENERIC) CLINICAL HISTORY: S/P AVR/CABGx3 TECHNIQUE: PA and lateral views of the chest. COMPARISON: 06/16/2020. FINDINGS: Resolved bibasilar pleural effusions. Resolved atelectasis onthe right. Residual linear atelectasis versus scarring at the left lung base.The lungs appear clear. The cardiomediastinal silhouette, shelly, pulmonaryvessels, and pleura are within normal limits. Prosthetic valve and intactsternotomy wires are present, as before. No significant osseous findings are seen. IMPRESSION Resolved bibasilar pleural effusions. Resolved atelectasis on the right. Residual linear atelectasis versus scarring on the left. Thank you for letting us participate in the care of this patient. Forquestions regarding this report, please contact the number below. Chun Wiley MD IMG DX ORDERABLES documented in this encounter Visit Diagnoses Diagnosis S/P CABG (coronary artery bypass graft) Postsurgical aortocoronary bypass status S/P AVR (aortic valve replacement) Heart valve replaced by other means documented in this encounter Care Teams Basic Sciences Dean Relationship Specialty Start Date End Date Ramiro Ball MD [address] [place] [id number] PCP - General 06/06/10 02/17/24 documented as of this encounter
--- OUTSIDE RECORDS SUMMARY | 2024-03-26 15:53 | XMS_ITS | Encounter Summary ---
Author Organization [facility] Address [facility] [place] [address] Care Team Providers Care Health Therapist Name Role Phone Ramiro Ball MD Primary Care Provider [phone] Reason for Referral * Consultation (Routine) - Specialty Diagnoses / Procedures Referred By Luca beltran Referred To Contact Cardiac Rehabilitation Diagnoses S/P CABG (coronary artery bypass graft) S/P AVR (aortic valve replacement) Chun Stanton MD [facility] CARDIOTHORACIC [place] [address] Cardiac Rehab, [address] [place] [address] Referral ID Status Reason Start Date Expiration Date V isits Requested Visits Authorized [id number] Consult, Test & Treat 06/18/2020 12/15/2020 36 36 * Diagnostic Test (Routine) - Closed Specialty Diagnoses / Procedures Referred By Luca beltran Referred To Contact Cardiology Diagnoses S/P CABG (coronary artery bypass graft) S/P AVR (aortic valve replacement) Procedures Echocardiogram Transthoracic([facility] or [facility]) Natalia Castro PA [facility] [place] [place] [address] [facility] [place] [address] Referral ID Status Reason Start Date Expiration Date V isits Requested Visits Authorized [id number] Closed Specialty Service Requested 06/15/2020 06/15/2021 1 1 Reason for Visit * Auth/Cert Specialty Diagnoses / Procedures Referred By Luca t Referred To Contact Diagnoses CAD (coronary artery disease) , CAD , CAD Procedures PRO REPLACE AORT VALV, PROSTH VALV PRO CABG, ARTERIAL, SINGLE PRO CABG, ARTERY-VEIN, TWO PRO ENDOSCOPY W/VIDEO-ASST VEIN HARVEST, CABG @REPLACE AORTIC VALVE, OPEN, W\CPB, W\PROSTHETIC VALVE (WRVU 41.32) @CABG, USING ARTERIAL GRAFT;SINGLE ARTERIAL GRAFT (WRVU 33.75) @CABG, TWO VENOUS GRAFTS & ARTERIAL GRAFT (WRVU 7.93) ENDOSCOPIC HARVEST VEIN(S) FOR CABG (WRVU 0.31) Referral ID Status Reason Start Date Expiration Date Visits Re quested Visits Authorized [id number] 1 1 Encounter Details Date Type Department Care Team (Latest Contact Info) Description 06/13/2020 5:56 AM EST - 06/19/2020 12:02 PM EST Hospital Encounter Intermediate [place] [address] Chun Stanton MD [facility] DR CARDIOTHORACIC [place] [address] S/P CABG (coronary artery bypass graft); S/P AVR (aortic valve replacement) Discharge Disposition: Home with VNA Social History [...] Sign Reading Time Taken Comments Blood Pressure 167/73 06/19/2020 8:18 AM EST Pulse 86 06/19/2020 8:18 AM EST Temperature 36.8 ??C (98.2 ??F) 06/19/2020 8:18 AM ES T Respiratory Rate 16 06/19/2020 8:18 AM EST Oxygen Saturation 96% 06/19/2020 8:18 AM EST Inhaled Oxygen Concentration - - Weight 84 kg (185 lb 3 oz) 06/19/2020 5:43 AM ES T Height 170.2 cm (5' 7.01) 06/13/2020 6:27 AM ES T Body Mass Index 29 06/13/2020 6:27 AM EST documented in this encounter Discharge Summaries * Joseph Persaud PA - 06/19/2020 8:53 AM EST Inpatient - Discharge Summary Patient Name: Johnson Tobar Patient Age: 69 y.o. Birthdate: 1950 Language: Turkish Race: White Ethnicity: Not nor Admit Date: 06/13/2020 Discharge Date: 06/19/2020 Attending Physician: Chun Stanton MD Follow-up Recommendations for Providers: ??? Please continue routine management of cardiovascular risk factors including blood pressure, lipids, glucose, etc. ??? Please note any changes to medications. ??? Our office will schedule an appointment with your PCP, Ramiro Ball MD, in 1-2 weeks. ??? Our office will schedule an appointment with your Second Miller, Dr. Lackey, in 2 weeks. ??? Our office will schedule an appointment with your Cardiac Surgeon, Dr. Chun Stanton, in 4weeks with a chest x-ray, EKG, and Echo before your appointment. Inpatient Provider Contact Information: [facility] [place]iac [place] [facility] [place] [address] FAX [phone] Discharge Diagnoses (Hospital Problems) Primary Diagnoses: Aortic Stenosis Coronary Artery Disease Secondary Diagnoses: Active Hospital Problems Diagnosis ??? S/P AVR (aortic valve replacement) ??? Type 2 diabetes mellitus, without long-term current use of insulin ??? S/P CABG (coronary artery bypass graft) ??? CAD (coronary artery disease) ??? Type 2 diabetes mellitus ??? ASCVD (arteriosclerotic cardiovascular disease) ??? HTN (hypertension) Resolved Hospital Problems No resolved problems to display. Other Diagnoses (Chronic Problems): Active Non-Hospital Problems Diagnosis ??? Aortic valve stenosis ??? DJD (degenerative joint disease) ??? Elevated cholesterol ??? Aortic stenosis Discharged to: Patient discharged to home Functional and Cognitive Status: At baseline Discharge Conditions/Prognosis: Stable Past Medical History: Diagnosis Date ??? Gastroesophageal reflux controlled with medication ??? Heart valve disease ??? High blood pressure treated with medication ??? Myocardial infarction ??? Peptic ulcer disease >15 yrs ago ??? S/P AVR (aortic valve replacement) 06/13/2020 ??? Type 2 diabetes mellitus 2014 ??? Type 2 diabetes mellitus, without long-term current use of insulin 06/15/2020 Past Surgical History: Procedure Laterality Date ??? CORONARY ANGIOPLASTY WITH STENT PLACEMENT 1997 ??? PRO CABG, ARTERIAL, SINGLE Left 06/13/2020 @CABG, USING ARTERIAL GRAFT;SINGLE ARTERIAL GRAFT (WRVU 33.75) performed by Chun Stanton MD at [facility] OR ??? PRO CABG, ARTERY-VEIN, TWO N/A 06/13/2020 @CABG, TWO VENOUS GRAFTS & ARTERIAL GRAFT (WRVU 7.93) performed by Chun Stanton MD at [facility] OR ??? PRO ENDOSCOPY W/VIDEO-ASST VEIN HARVEST, CABG Right 06/13/2020 ENDOSCOPIC HARVEST VEIN(S) FOR CABG (WRVU 0.31) performed by Chun Stanton MD at [facility] OR ??? PRO REPLACE AORT VALV, PROSTH VALV N/A 06/13/2020 @REPLACE AORTIC VALVE, OPEN, W\CPB, W\PROSTHETIC VALVE (WRVU 41.32) performed by Chun Stanton MD at [facility] MAIN OR Prior To Admission Medications Medications Prior to Admission Medication Sig Dispense Refill Last Dose ??? aspirin 325 mg Tablet Take 325 mg by mouth daily. 06/13/2020 at 0400 ??? glipiZIDE XL (Glucotrol XL) 10 mg Tablet Extended Rel 24 hr TAKE 1 TABLET BY MOUTH ONCE DAILY 06/08/2020 at Unknown time ??? lisinopriL (PRINIVIL;ZESTRIL) 30 mg Tablet TAKE ONE TABLET BY MOUTH EVERY DAY 06/08/2020 at Unknown time ??? metFORMIN (GLUCOPHAGE) 1,000 mg Tablet TAKE ONE TABLET BY MOUTH TWICE A DAY 06/08/2020 at Unknown time ??? metoprolol tartrate (Lopressor) 50 mg Tablet TAKE ONE TABLET BY MOUTH TWICE A DAY 06/13/2020 [id number] ??? omeprazole (PriLOSEC) 20 mg Capsule, Delayed Release(E.C.) TAKE ONE CAPSULE BY MOUTH EVERY DAY 06/13/2020 at 0400 ??? rosuvastatin (Crestor) 40 mg Tablet TAKE ONE TABLET BY MOUTH EVERY DAY 06/08/2020 at Unknown time ??? [DISCONTINUED] chlorhexidine (HIBICLENS) 4 % Liquid Apply topically daily as needed. Shower from head to toe with Chlorhexidine the night before surgery . 120 mL 0 Updated Allergies/ADRs: No Known Allergies History of Presentation: Mr. Tobar is a 69-year-old male with known aortic stenosis. ??I reviewed his recent echocardiogram which shows severe, likely trileaflet aortic stenosis with an aortic valve area of 0.8 cm??, themean gradient is 57, the peak velocity across this valve is 5 m/s. ??His LV systolic function is preserved. ??A complete review of systems and past medical history was obtained. ??The pertinent issues are as below. ??His symptoms are those of class II exertional dyspnea and occasional exertional chest pain. ??Importantly he is has known atherosclerotic coronary disease having undergone PCI with stent placement of an LAD lesion in the past. ??He has treated hypertension, he is a cdj-dczmpwv-kdpmhuyeo diabetic. ??He has known dyslipidemia. ??He has had no known previous CVA or TIA. ??He has no known hepatic dysfunction he does have mild renal insufficiency with a baseline creatinine of about 1.3. ??He was not a user of tobacco. ??He is undergone prior appendectomy. ??He does have a family history of atherosclerotic disease in that his father following an [place] at 48 years of age. 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 ?? His cardiac cath shows severe CAD ?? On examination he is a blood pressure 150/80, his heart rates in the 70s at sinus by palpation. ?? His HEENT examination is unremarkable, there is no scleral icterus. ??There are murmurs transmittedto the neck bilaterally. ?? He has a harsh 4/6 systolic murmur at the right upper parasternal border which radiates into his neck. ?? His chest is clear to auscultation. ?? His lower extremities are free of edema. ?? There are no gross varicosities or neurological deficits. ?? In summary Mr. Tobar has severe, symptomatic aortic stenosis with CAD. ??I think he would benefit from aortic valve replacement therapy and coronary bypass. The potential risks and anticipated benefits were reviewed, his quetions were answered, he agrees to operation and has given written informed consent. Major Procedures/Operations: 06/13/2020 AVR 23 mm Inspriris bioprosthesis CABG/ x 3, MCKEON->LAD, Seq SVG->OM1->D1 Hospital Course: s/p AVR, CABG x 3 Johnson Tobar was [facility] 06[facility]13/2020 via the Same DayProgram. He was brought to the operating room where Dr. Chun Stanton performed a tissue aortic valve replacement and CABG x 3. He tolerated the procedure and was brought to the Cardiovascular Intensive Care Unit for recovery. He initially required the pharmacologic support of intravenous levophed. He was extubated from the ventilator on the day of surgery. All drips were weaned to off. Routine postoperative and home medications were started and a diet was advanced. Aspirin 325mg daily was started. Statin therapy was continued. He was started on beta blockade and this was optimized. Diuretics were started and he responded appropriately. He was transferred to the Intermediate Cardiac Care Unit for continued rehabilitation. All tubes, lines, and epicardial pacing wires were removed without incident. He voided normally after his Gallagher was removed. SVT, suspected post-op Atrial Fibrillation POD1 Mr. Tobar developed non-sustained burst of 15 seconds atrial fibrillation in the 90s. He self-converted into normal sinus rhythm. Metoprolol was started. POD2 he had another episode of non-sustained burst of atrial fibrillation in the 100s to which he self converted to normal sinus rhythm.His metoprolol was uptitrated and optimized. He was not started on coumadin as his afib was self limited. HTN Metoprolol and lisinopril were up-titrated. He was seen by Physical Therapy and Cardiac Rehabilitation. Sternal precaution education was provided. His discharge plan at this time is to home with VNA. The remainder of the his hospital course was uneventful and by postoperative day #6 he had met all criteria for discharge. Pain was controlled on oral medications. He had walked 5 minutes and gone up and down stairs. He was tolerating a regular diet and had a bowel movement. Vital Signs at Discharge: Last set of vitals: BP 167/73 (BP Location (NBP): Right arm, Patient Position: Lying) Pulse 86 Temp 36.8 ??C (98.2 ??F) (Oral) Resp 16 Ht 170.2 cm (5' 7.01) Wt 84 kg (185 lb 3 oz) SpO2 96% BMI 29.00 kg/m?? Patient Vitals for the past 168 hrs: Weight 06/19/20 0543 84 kg (185 lb 3 oz) 06/18/20 0557 85.2 kg (187 lb 13.3 oz) 06/17/20 0322 87 kg (191 lb 12.8 oz) 06/16/20 0611 87.1 kg (192 lb 0.3 oz) 06/15/20 0700 83.8 kg (184 lb 11.9 oz) 06/14/20 0600 87.5 kg (192 lb 14.4 oz) 06/13/20 0627 79.4 kg (175 lb 0.7 oz) Current weight: 84 kg Admit/Preop weight: 79.4 kg Pertinent physical exam findings prior to discharge: General: Sitting in chair. NAD. Pleasant. Neuro: Awake and alert. CN II-XII grossly intact, moves all extremities without focal deficit. 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 Smoking Status at Discharge: Social History Tobacco Use Smoking Status Never Smoker Smokeless Tobacco Never Used STS Data Medications: Pre-operative beta pb? Given Discharge beta pb? Given Discharge lipid therapy? Given Discharge anti-platelet therapy? Given Discharge Medications: Your Medications New Medications Dose Details acetaminophen 500 mg Tab Commonly known as: Tylenol Take 2 tablets by mouth every 6 hours as needed for Pain. 1,000 mg Quantity: 60 tablet Refills: 1 amoxicillin 500 mg Cap Commonly known as: Amoxil Take 4 capsules by mouth as needed. Take 4 tablets, 2000mg, 1 hour before dental procedures. 2,000 mg Refills: 0 dextromethorphan-guaiFENesin 10-100 mg/5 mL Syrp Commonly known as: Robitussin Take 5 mLs by mouth 4 times daily as needed for Cough. 5 mL Refills: 0 Continued medications with new dosing Dose Details lisinopriL 40 mg Tab Commonly known as: Prinivil;Zestril Take 1 tablet by mouth daily. Start taking on: June 20, 2020 What changed: ?? medication strength ?? See the new instructions. 40 mg Quantity: 30 tablet Refills: 1 metoprolol tartrate 100 mg Tab Commonly known as: Lopressor Take 1 tablet by mouth 2 times daily. What changed: ?? medication strength ?? See the new instructions. 100 mg Quantity: 60 tablet Refills: 1 Continued medications, unchanged Dose Details aspirin 325 mg Tab Take 325 mg by mouth daily. 325 mg Refills: 0 glipiZIDE XL 10 mg Tr24 Commonly known as: Glucotrol XL TAKE 1 TABLET BY MOUTH ONCE DAILY Refills: 0 metFORMIN 1,000 mg Tab Commonly known as: GLUCOPHAGE TAKE ONE TABLET BY MOUTH TWICE A DAY Refills: 0 omeprazole 20 mg Cpdr Commonly known as: PriLOSEC TAKE ONE CAPSULE BY MOUTH EVERY DAY Refills: 0 rosuvastatin 40 mg Tab Commonly known as: Crestor TAKE ONE TABLET BY MOUTH EVERY DAY Refills: 0 STOPPED Medications chlorhexidine 4 % Liqd Commonly known as: HIBICLENS Instructions Given to Patient at Discharge: General Instructions None Cardiac Surgery Discharge Instructions: Call your doctor if: You have a fever of greater than 101 degrees, shaking chills, if you develop redness or drainage from your incision sites, or if you have questions. Please call your surgeon's office if you have any discharge or drainage from your chest incision. Your surgeon, Dr. Chun Stanton and/or the Cardiac Surgery Physician Reverberatory Skimmer Team may be reached at . Antibiotic prophylaxis: You will need to take antibiotics prior to many invasive tests and treatments, such as dental cleaning, which should be done every 6 months. Your primary care physician or your dentist can prescribe this medication. Please refer to the card with the [place] [employer] Guidelines for more information. You have been provided with a copy of this card. Please refer to the [place] [employer] Guidelines for more information. Good dental care is important for your overall health. We recommend waiting ~3 months from your surgery date before returning to your dentist except in cases of emergency. Weight: Weigh yourself daily. Please call the office if you notice increasing weight, increasing fluid retention (edema), and/or SOB. Sternal (breast bone) precautions: No lifting greater than 7-10 pounds; no pushing or pulling with upper extremities; no excessive chest stretching for the first 4 weeks. Further instructions will begiven to you at your follow-up appointment. Activity level: Walk three times a day. You should continue to increase your walks by 1-2 minutes each day. It is expected that you will be walking 20-30 minutes twice a day within 3-4 weeks after discharge to home. Rest between activities and after meals. Use common sense, don't exhaust yourself. Biking: You may use a stationary bicycle whenever you are comfortable enough to permit this. Tighten the resistance slightly. Increase the amount of time on the bicycle as you would do for your walks, a minute or two each day. No biking outside until after your return appointment with Dr. Chun Stanton. You may use a [place] [employer] or treadmill but avoid any pulling motion with the arms. Home activities: You may do light housework, e.g. dusting, setting the table, washing dishes, preparing a meal. Light carpentry and gardening are allowed. Avoid trying to open tight jars and stuck windows. No vacuuming, mopping, raking, shoveling, digging or hoeing until after your return visit with the surgeon. Sexual activity: You may engage in sexual activity when you feel ready. Use a position that protects your sternum (breastbone). Do not have your partner lie on your chest. Stairs: There are no restrictions on stair climbing. Use common sense. Don't exhaust yourself. Activities outside the home: After the first week home you may go out to dinner, visit friends, go to a movie, go to tenriism, etc. Heavy activities: No hunting, skiing, jogging, snow shoveling, snowmobiling, lawn mowing, swimming,golf or tennis until after your return appointment with the surgeon. Do not ride motorcycles, ATVidaao'stractors or horses. Avoid the use of a rifle with kickback against the shoulder for six months. Sleep: Try to establish normal sleep patterns. Long naps during the day may make it hard for you tosleep at night. Use the pain medication at bedtime for the first week at home. If you have nightmares, contact us. Some medications make this worse and these can be changed. Smoking: It is very important that you not smoke after surgery. Smoking cessation education was provided as appropriate. If you need further assistance with this please call and you will be referred to a smoking cessation specialist. Medications: Take only those medications listed on your discharge information. Keep your pain undercontrol so you can be active, do your coughing and breathing exercises and sleep. Contact us if thepain medication isn't working for you. Do not take any herbal preparations until after you return to see the surgeon. Special Physician Instructions: DO NOT USE ANY IBUPROFEN (ADVIL, MOTRIN, ETC) OR OTHER NSAIDS (NONSTEROIDAL ANTI-INFLAMMATORY DRUGS) FOR A TOTAL OF 10 DAYS AFTER SURGERY. PLEASE CONTACT THE CARDIOTHORACIC SURGERY OFFICE IF YOU HAVE QUESTIONS ABOUT WHICH DRUGS YOU SHOULD NOT USE. . Diet: You should follow a regular diet until your appetite returns to normal. At that point in timeyou should resume a low fat, low cholesterol, [place] [employer] Diet. Driving: No driving until cleared by your surgeon. Avoid long trips if possible. If you must go on a long trip, stop the car and walk every hour. Shower/Bath: You may shower daily. No baths, soaking, or swimming until cleared by your surgeon. Wound care: Wash your incisions daily with soap and rinse well, pat dry. Assess for any signs of infection such as increased redness, pain, warmth or drainage. Please call your surgeon's office if you have any discharge or drainage from your chest incision. If there is a lot of swelling, apply laila wraps during the day and remove at bedtime. Elevate your legs when you are sitting. REMOVE CHEST TUBE SUTURES ON OR AFTER 06/23/2020 Home oxygen therapy: N/A Follow up appointments: ??? Our office will schedule an appointment with your PCP, Ramiro Ball MD, in 1-2 weeks. ??? Our office will schedule an appointment with your Second Miller, Dr. Lackey, in 2 weeks. ??? You have a follow up appointment with your Cardiac Surgeon, Dr. Chun Stanton, July 21at 1:00pm with a chest x-ray, EKG, and Echo before your appointment. Cardiac Rehabilitation: Johnson Tobar was seen today regarding participation in the outpatient Phase 2 Cardiac Rehabilitation at [facility]. The patient agrees to a referral to this program. The referral will be sent at discharge and the patient should be contacted by the Program within 1- 2 weeks from discharge. Future Appointments and Orders Future Appointments and Orders Future Appointments Provider Department Dept Phone 07/21/2020 10:30 AM ECHO REGULAR Non-Invasive Cardiology Lab [facility] Arrive at: [employer] [facility] [employer] [facility] [phone] 07/21/2020 12:[address] [facility] DX ROOM 2 XRay at [facility] Arrive at: [employer] [facility] [phone] Please go to [facility] [employer] [facility] ([place] Location). 07/21/2020 1:00 PM Chun Stanton MD Cardiac Surgery at [facility] Arrive at: [employer] [facility] [phone] Future Orders Complete By Expires Echocardiogram Transthoracic([facility] or [facility]) [48436 CPT(R)] 07/16/2020 (Approximate) 09/13/2020 Process Instructions: Scheduling Instructions: Comments: Questions: Is a Bubble Study requested?: Does the patient have Congenital Heart Disease?: Does patient require sedation?: GA rationale: Where should this exam be performed?: [facility] EKG 12 Lead [34431 CPT(R)] 07/16/2020 (Approximate) 09/13/2020 Process Instructions: Scheduling Instructions: Questions: Which location will this be performed?: [place] Is a rhythm strip needed?: No XR Chest PA & Lateral (Generic) [09016 03430 Custom] 07/16/2020 (Approximate) 09/13/2020 Process Instructions: Scheduling Instructions: Comments: Questions: Where will study be performed?: [facility] Radiology Portable exam?: Reason for exam and clinical history: S/P AVR/CABGx3 Clinical information / pedraza questions: Stat read required?: Date of injury if applicable: Requested Time: Referral to Cardiac Rehab [TUD402 Custom] As directed Process Instructions: If no progress note charted, please enter Clinical details in comments. Scheduling Instructions: Questions: My question or request is: s/p AVR/CABG. Cardiac rehab at [facility] Referral to Home Health - at DISCHARGE [BIX4698 CPT(R)] As directed Process Instructions: Scheduling Instructions: Comments: DOCUMENTATION FOR VNA SERVICES (INCLUDING THOSE PATIENTS WITH MEDICARE COVERAGE REQUIRING HOME VNA SERVICES AND/OR HOSPICE SERVICES) PATIENT'S LOCATION: Johnson Tobar [address] [facility] [address] (home) No relevant phone numbers on file. Property Management Intern's Name: self and -Emili In discussion with the attending physician, it is certified that this patient is under their care and that they, or a Nurse Practitioner, or Physician Reverberatory Skimmer who is working directly with them, hada face to face encounter that meets the physician face to face encounter requirements with this patient on 06/18/2020 The encounter with the patient was in whole, or in part, for the following medical condition, whichis the primary reason for home health care services: S/P AVR, CABG In discussion with the provider, it is certified that, based on their findings, the following services are medically necessary for home health services. To provide the following care/treatments with the clinical findings supporting the need for services as follows: HOME HEALTH AGENCY: [facility] PHONE: [phone] FAX: [phone] RN orders: Cardiopulmonary assessment, incisional assessment, assess vital signs, assessment of rehab progress, medication management and effectiveness, home safety evaluation. PT ORDERS: Continue rehab for endurance, gait stability and strength with mobility and transfers. Home safety evaluation. Home exercise program if appropriate. Start of Care Date: 06/20/2020 SPECIAL INSTRUCTIONS: For any follow up questions, needs, or issues please call the Cardiac SurgeryOffice at [phone] FOR MEDICARE ONLY: (please delete this section if not Medicare) In discussion with the attending physician, it is certified that the clinical findings support thatthis patient is homebound i.e. absences from home require considerable and taxing effort due to: Restricted mobility and poor activity tolerance due to recent cardiac surgery. Patient requires assistance of another person, to leave the home. Home Health agencies which cover the area of patient's residence have been reviewed, either verbally or in writing, and patient/family have chosen the agency as noted. Questions: Agency name and contact information: [facility] Patient location post discharge: home What services are requested: Registered Nurse Physical Therapy Occupational Therapy Start date: Responsible MD post discharge contact info: PCP Rodrick rolling [[id number] Custom] As directed Process Instructions: Scheduling Instructions: Comments: Johnson Tobar [address] [facility] [id number] (home) Diagnosis:s/p 05/3020 CABGx3 now with Unsteady gait Significant weakness, ataxia or gait abnormality Patient's: Hgt: 5'7 Wgt: 187 lb 13oz VENDOR: [facility] Located @ [place], [place] Ordering: Front wheel walker IF d/c on Sat/Sun will be Delivered from [facility] weekend closet in [place] to pt's hospital room #: 449 Otherwise delivery by [facility]. Questions: Vendor Name/Contact information: [facility] @ [facility] [place] Arrangements for VNA/home care: As above. VN RN OR PCP TO PLEASE REMOVE CHEST TUBE SUTURES ON OR AFTER 06/23/2020 Signed: RASHEL RIOS [facility] Section of Cardiac Surgery [facility] [place] [id number] FAX [phone] Date: 06/19/2020 CC: MD Quinn Zhang Robert E, MD [address] [place] [id number] documented in this encounter Discharge Instructions * Patient Instructions* Joseph Persaud PA - 06/19/2020 8:59 AM EST Cardiac Surgery Discharge Instructions: ?? Call your doctor if: You have a fever of greater than 101 degrees, shaking chills, if you develop redness or drainage from your incision sites, or if you have questions. Please call your surgeon's office if you have any discharge or drainage from your chest incision. Your surgeon, Dr. Chun Stanton and/or the Cardiac Surgery Physician Reverberatory Skimmer Team may be reached at . ?? Antibiotic prophylaxis: You will need to take antibiotics prior to many invasive tests and treatments, such as dental cleaning, which should be done every 6 months. Your primary care physician or your dentist can prescribe this medication. Please refer to the card with the [place] [employer] Guidelines for more information. You have been provided with a copy of this card. Please refer to the [place] [employer] Guidelines for more information. Good dental care is important for your overall health. We recommend waiting ~3 months from your surgery date before returning to your dentist except in cases of emergency. ?? Weight: Weigh yourself daily. Please call the office if you notice increasing weight, increasing fluid retention (edema), and/or SOB. ?? Sternal (breast bone) precautions: No lifting greater than 7-10 pounds; no pushing or pulling with upper extremities; no excessive chest stretching for the first 4 weeks. Further instructions will begiven to you at your follow-up appointment. ?? Activity level: Walk three times a day. You should continue to increase your walks by 1-2 minutes each day. It is expected that you will be walking 20-30 minutes twice a day within 3-4 weeks after discharge to home. Rest between activities and after meals. Use common sense, don't exhaust yourself. ?? Biking: You may use a stationary bicycle whenever you are comfortable enough to permit this. Tighten the resistance slightly. Increase the amount of time on the bicycle as you would do for your walks, a minute or two each day. No biking outside until after your return appointment with Dr. Chun Stanton. You may use a [place] or treadmill but avoid any pulling motion with the arms. ?? Home activities: You may do light housework, e.g. dusting, setting the table, washing dishes, preparing a meal. Light carpentry and gardening are allowed. Avoid trying to open tight jars and stuck windows. No vacuuming, mopping, raking, shoveling, digging or hoeing until after your return visit with the surgeon. ?? Sexual activity: You may engage in sexual activity when you feel ready. Use a position that protects your sternum (breastbone). Do not have your partner lie on your chest. ?? Stairs: There are no restrictions on stair climbing. Use common sense. Don't exhaust yourself. ?? Activities outside the home: After the first week home you may go out to dinner, visit friends, go to a movie, go to tenriism, etc. ?? Heavy activities: No hunting, skiing, jogging, snow shoveling, snowmobiling, lawn mowing, swimming,golf or tennis until after your return appointment with the surgeon. Do not ride motorcycles, ATV'stractors or horses. Avoid the use of a rifle with kickback against the shoulder for six months. ?? Sleep: Try to establish normal sleep patterns. Long naps during the day may make it hard for you tosleep at night. Use the pain medication at bedtime for the first week at home. If you have nightmares, contact us. Some medications make this worse and these can be changed. ?? Smoking: It is very important that you not smoke after surgery. Smoking cessation education was provided as appropriate. If you need further assistance with this please call and you will be referred to a smoking cessation specialist. ?? Medications: Take only those medications listed on your discharge information. Keep your pain undercontrol so you can be active, do your coughing and breathing exercises and sleep. Contact us if thepain medication isn't working for you. Do not take any herbal preparations until after you return to see the surgeon. ?? Special Physician Instructions: DO NOT USE ANY IBUPROFEN (ADVIL, MOTRIN, ETC) OR OTHER NSAIDS (NONSTEROIDAL ANTI-INFLAMMATORY DRUGS) FOR A TOTAL OF 10 DAYS AFTER SURGERY. PLEASE CONTACT THE CARDIOTHORACIC SURGERY OFFICE IF YOU HAVE QUESTIONS ABOUT WHICH DRUGS YOU SHOULD NOT USE. . Diet: You should follow a regular diet until your appetite returns to normal. At that point in timeyou should resume a low fat, low cholesterol, [place] [employer] Diet. ?? Driving: No driving until cleared by your surgeon. Avoid long trips if possible. If you must go on a long trip, stop the car and walk every hour. ?? Shower/Bath: You may shower daily. No baths, soaking, or swimming until cleared by your surgeon. ?? Wound care: Wash your incisions daily with soap and rinse well, pat dry. Assess for any signs of infection such as increased redness, pain, warmth or drainage. Please call your surgeon's office if you have any discharge or drainage from your chest incision. If there is a lot of swelling, apply laila wraps during the day and remove at bedtime. Elevate your legs when you are sitting. ?? REMOVE CHEST TUBE SUTURES ON OR AFTER 06/23/2020 ?? Home oxygen therapy: N/A ?? Follow up appointments: ?? Our office will schedule an appointment with your PCP, Ramiro Ball MD, in 1-2 weeks. ?? Our office will schedule an appointment with your Second Miller, Dr. Lackey, in 2 weeks. ?? You have a follow up appointment with your Cardiac Surgeon, Dr. Chun Stanton, July 21 at 1:00pm with a chest x-ray, EKG, and Echo before your appointment. ?? Cardiac Rehabilitation: Johnson Tobar??was seen today regarding participation in the outpatient Phase 2 Cardiac Rehabilitation at [facility]. The patient agrees to a referral to this program.? The referral will be sent at discharge and the patient should be contacted by the Program within 1- 2 weeks from discharge. ?? documented in this encounter Medications at Time [...] as of this encounter Progress Notes * Maru Lane RN - 06/19/2020 12:02 PM EST Provided front wheel walker from [facility]; provided to pt the [facility] [employer] Made Easy letter andcopy of [employer], [facility] Phys[facility] Order/Patient Agreement Form (pt signed). Maru Lane nissan sales consultant Office of Care Management [email or web address] Client Relations Specialist Pager: [phone] * Margaux Jones RN - 06/19/2020 11:54 AM EST AVS and medications reviewed at bedside. DC'd and D-lined. Pt home in private car. * Shaylee Ceja RN - 06/18/2020 6:21 PM ESTSummary: DME walker choice Office of Care Management([facility])/[employer]issan sales consultant(RNCM)/Discharge Planning Weekend and Holidays Pager [phone] Service: Cardiac Surgery w/e pgr [phone] Referral from weekday RNCM that pt would need walker at d/c. Order pended and has been signed. Spoke w pt by phone and he notes he has not been using for several days. Discussed w him that the RNCM would ck w his RN and team and if did recommend for d/c would confirmw him and dispense before d/c. He agreed w this plan. Discussed that he has choices, which vendors would bill his insurance([employer], [employer], [facility] butthat not all open on weekend, that stores such as [employer], [employer] etc would have but he wouldhave to pay out of pocket and submit to insurance. Advised would be able to dispense one from [facility] to him at his room before d/c. IF he needs he agrees with : [facility] Located @ [place], [place] Call Saturday Triage RNCM pgr [phone] for assist; and will add to their referral list for Saturday f/u. * Alex Glover RN - 06/18/2020 2:49 PM EST OUTCOME EVALUATION NOTE: OUTCOME SUMMARY: Pt is alert and oriented x 4. Complains of incisional pain only when he coughs, getting scheduled tylenol and tessalon. VSS. BG taken every 4 hours, pt into 200's treated appropriately, see MAR for details. OOB independently in room and SBA to walk unit. Walked around unit a couple of times and didnot report any SOB, dizziness or increased pain. Adequate PO intake of food and fluids. Up to the BR to void. Following sternal precautions well. Mid sternal incision clean dry and open to air. Safety maintained. Cooperative with staff. Will continue to monitor. PLAN MOVING FORWARD: Discharge home tomorrow? Control pain Encourage ambulation Maintain sternal precautions INDIVIDUALIZED FALL PREVENTION INTERVENTIONS: Patient-specific fall risk factors per assessment: Hospital setting, s/p surgery, pt complaining ofpain, generalized weakness Assistance: Independent (in room), SBA (around unit) Supervision: Eyes on/ arms reach Surveillance: Bed locked in low position, call blanco within reach, purposeful hourly rounding, clutter free environment, bed/chair alarm on, family at bedside Patient-specific fall prevention interventions for sensory deficits provided: N/A CPG GOAL OUTCOME EVALUATION: Continue care plan as documented. * Joseph Persaud PA - 06/18/2020 10:03 AM EST Cardiac Surgery Progress Note Johnson Tobar is a 69 y.o. male 5 Days Post-Op AVR/CABG x 3. PMH of DJD, HLD, HTN, DM on orals 24h Events: Restarted lisinopril Loose stools S: Feels well. Pain controlled. Ambulating. Tolerating diet. Voiding. Loose stools improving. No nausea/vomiting, abdominal pain. O: Temp: [36.7 ??C (98.1 ??F)-37.2 ??C (99 ??F)] Heart Rate: [73-80] Resp: [17-24] BP: (145-170)/(66-76) SpO2: [94 %-98 %] Heart Rate from SpO2: [74 bpm-88 bpm] No intake/output data recorded. Admit weight: 79.4 kg Current weight: Weight: 85.2 kg (187 lb 13.3 oz) Physical Exam: General: Sitting in chair. NAD. Pleasant. Neuro: Awake and alert. CN II-XII grossly intact, moves all extremities with equal strength. Lungs: diminished bases, No rales or rhonchi Heart: RRR Abdomen: Soft, NTND, Bowel sounds present Ext: WWP, 1+ edema Incisions: CAYT CDI Tubes/Lines/Drains: piv Assessment/Plan: 69 y.o. male 5 Days Post-Op avr/cabg x 3. Increase lisinopril to home dose of 30 Endocrine following for DM2. Currently on SSI and half home dose of glipizide. Metformin not restarted yet. Met with cosmetology educator. Neuro: tylenol, oxy prn CV: Metop 100 bid, lisinopril 30, crestor 40' Pulm: on room air, pulm toilet, tessalon pearls, mucinex, dextromethorphan prn GI: carb control diet, protonix, hold bowel meds for diarrhea : Continue to monitor I/O Renal: k prn, lasix 40 PO BID Heme: asa 325 ID: [id number] Endo: DM2, glipizide xl 5, SSI Dispo: ICCU. Full Code Discussed with attending surgeon on rounds this morning. RASHEL RIOS 06/18/2020 Between the hours of 1800 - 0600 and on the weekends please page [phone]. * Kaye Hooper RN - 06/17/2020 12:26 PM EST Diabetes Clinical Nurse Specialist Met with Mr. Tobar to discuss his diabetes self-care. Pt has an ~ 5 year Hx type 2 diabetes forwhich he takes glipizide and metformin. He is now S/P AVR & CABG. HbA1c upon admission was 8.2%. Encouraged pt to strive for excellent glycemic control to promote healing of his incision and reduce the risk of infection. Pt reports that he checks his BG's every morning with results typically 150- 170 and occasionally > 200 after cheating the night before. States that his HbA1c goal is 7%. Pt is willing to take insulin if necessary. Encouraged him to begin practicing injections. Pt will need a prescription for more test strips upon D/C so that he can test more often over the coming weeks. * Natalia Trivedi PA - 06/17/2020 9:15 AM EST Cardiac Surgery Progress Note Johnson Tobar is a 69 y.o. male 4 Days Post-Op AVR/CABG x 3. PMH of DJD, HLD, HTN, DM on orals 24h Events: Increased metoprolol 100 BID Increased lasix 40 BID D/C'd PW Was coughing O/N causing pain, given tessalon, mucinex and dextromethorphan with relief Started Glipizide 5mg, started having some diarrhea x 6 S: Patient feels ok today. Pain is controlled. Breathing feels good. Passing flatus. Started havingsom abdominal pain and diarrhea over the last day. No foul odor, recent antibiotic use or hematochezia. He is tolerating PO intake. He has been ambulating with nursing and physical therapy. Denies JC, vision changes, CP, SOB, abdominal pain, nausea, vomiting, numbness or weakness. O: Temp: [36.2 ??C (97.2 ??F)-37 ??C (98.6 ??F)] Heart Rate: [74-82] Resp: [19-22] BP: (130-183)/(72-91) SpO2: [88 %-96 %] Heart Rate from SpO2: [76 bpm-81 bpm] 06/16 0701 - 06/17 0700 In: 1140 [P.O.:1140] Out: 650 [Urine:650] Admit weight: 79.4 kg Current weight: Weight: 87 kg (191 lb 12.8 oz) Physical Exam: General: Sitting in chair. NAD. Pleasant. Neuro: Awake and alert. CN II-XII grossly intact, moves all extremities with equal strength. Lungs: decreased breath sounds in the LLLB otherwise no wheezing, rales or rhonchi Heart: RRR, SR on tele in the 80s, no murmurs, rubs or gallops Abdomen: Soft, NTND, Bowel sounds present Ext: WWP, 1+ edema Incisions: Open to air without warmth, erythema or discharge. Tubes/Lines/Drains: piv Assessment/Plan: 69 y.o. male 4 Days Post-Op ws/p avr/cabg x 3, recovering as expected Start lisinopril 20mg QD for SBP in the 180s, consider increasing to home dose of 30 tomorrow Talk with DM about possible diarrhea related to starting glipizide and stop bowel meds Neuro: tylenol, oxy PRN CV: Increase metop 100'', crestor 40', start lisinopril 20mg QD Pulm: nc, wean as able, continue IS and encourage ambulation GI: adat, protonix, hold bowel meds for diarrhea :Continue to monitor I/O Renal: k prn, Increase lasix 40 PO BID Heme: asa 325 ID: no infection. Actively monitoring Endo: DM, SSI Dispo: Continue ICCU Care. Full Code Discussed with attending surgeon on rounds this morning. RASHEL Garcia 06/17/2020 Between the hours of 1800 - 0600 and on the weekends please page [phone]. * Katherine Flores RN - 06/16/2020 3:13 PM EST Johnson Tobar is AOx4 with no deficits. His VSS with NSR on tele with rates between 70-90. He worked with PT today. Insulin gtt has been d/c and replaced with q4h fingersticks and Diabetes team consult. Epicardial wires removed today. Post-op BM. Patient to continue following CT pathway. Call blanco within reach; will continue to monitor. * Natalia Trivedi PA - 06/16/2020 11:39 AM EST Cardiac Surgery Progress Note Johnson R Ekaterina is a 69 y.o. male 3 Days Post-Op AVR/CABG x 3. PMH of DJD, HLD, HTN, DM on orals 24h Events: -Increased metoprolol 50 TID -Started lasix 20 PO BID -D/C gallagher -Burst of non-sustained afib in the 90s overnight, self-limited. S: Patient feels better today. Pain is controlled. Breathing feels good. Passing flatus. + BMs and tolerating PO intake. He has been ambulating with nursing and physical therapy. Denies JC, vision changes, CP, SOB, abdominal pain, nausea, vomiting, numbness or weakness. O: Temp: [36.5 ??C (97.7 ??F)-37.5 ??C (99.5 ??F)] Heart Rate: [74-85] Resp: [19-20] BP: (109-184)/(62-82) SpO2: [90 %-96 %] Heart Rate from SpO2: [70 bpm-86 bpm] 06/15 0701 - 06/16 0700 In: 100 [P.O.:100] Out: 575 [Urine:575] Admit weight: 79.4 kg Current weight: Weight: 87.1 kg (192 lb 0.3 oz) Physical Exam: General: Sitting in chair. NAD. Pleasant. Neuro: Awake and alert. CN II-XII grossly intact, moves all extremities with equal strength. Lungs: decreased breath sounds in the LLLB otherwise no wheezing, rales or rhonchi Heart: RRR, SR on tele in the 80s, no murmurs, rubs or gallops Abdomen: Soft, NTND, Bowel sounds present Ext: WWP, 1+ edema Incisions: Open to air without warmth, erythema or discharge. Tubes/Lines/Drains: piv Assessment/Plan: 69 y.o. male 3 Days Post-Op ws/p avr/cabg x 3, recovering as expected Increased metoprolol 100 BID Increased lasix 40 BID D/C PW Neuro: tylenol, oxy PRN CV: Increase metop 100'', crestor 40' Pulm: nc, wean as able, continue IS and encourage ambulation GI: adat, protonix :Continue to monitor I/O Renal: k prn, Increase lasix 40 PO BID Heme: asa 325 ID: no infection. Actively monitoring Endo: DM, SSI Dispo: Continue ICCU Care. Full Code Discussed with attending surgeon on rounds this morning. RASHEL Garcia 06/16/2020 Between the hours of 1800 - 0600 and on the weekends please page [phone]. * Katherine Flores RN - 06/15/2020 3:42 PM EST Johnson Tobar is AOx4 with no cognitive deficits and VSS with NSR on tele. Patient worked with PT this afternoon. Continues to use incentive spirometry well. Wires still capped. Sternal incision open to air with no drainage noted and clean lines. Patient c/o nausea this afternoon and was given PRN zofran with effect. Shift otherwise uneventful; will continue to monitor. * Ale Caballero - 06/15/2020 3:23 PM EST Machine Lay Out Worker Encounter Note Patient Name: Johnson Tobar : [id number] MR#: [id number] Admit Date: 06/13/2020 5:56 AM Hospital Day 2 days Narrative: Rounding on the unit I stepped into Mr. Lu's room and asked how he was. Mr. Lu was sitting in a chair, greeted me and invited me in. Assessment: Mr. Tobar is 2 days post surgery and remarked that his pain and condition are improving. 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 He also discussed his appreciation for the care he's received by his team. Intervention and Outcome: I visited with Mr. Lu, and offered pastoral presence. Follow-up: No follow-up required Time in Direct Care: 15 minutes Ale Caballero 06/15/2020 * Natalia Trivedi PA - 06/15/2020 9:22 AM EST Cardiac Surgery Progress Note Johnson Tobar is a 69 y.o. male 2 Days Post-Op AVR/CABG x 3. PMH of DJD, HLD, HTN, DM on orals 24h Events: -Started BB -Held lasix for low filling pressures, got some albumin -Transferred to floor -15 sec burst of afib in the 100s S: Patient feels he is overall doing better. Pain is better tolerated after CT removal. Breathing feels good. No flatus yet, no BM. Tolerating PO without nausea, vomiting or abdominal pain. Has ambulated once. Denies JC, vision changes, CP, SOB, abdominal pain, nausea, vomiting, numbness or weakness. O: Temp: [36.4 ??C (97.5 ??F)-36.9 ??C (98.4 ??F)] Heart Rate: [75-95] Resp: [20-29] BP: (127-168)/(61-81) SpO2: [94 %-98 %] Heart Rate from SpO2: [77 bpm-95 bpm] 06/14 0701 - 12 0700 In: 258.2 [I.V.:258.2] Out: 980 [Urine:895] Admit weight: 79.4 kg Current weight: Weight: 83.8 kg (184 lb 11.9 oz) Physical Exam: General: Sitting in chair. NAD. Pleasant. Neuro: Awake and alert. CN II-XII grossly intact, moves all extremities with equal strength. Lungs: decreased breath sounds in the LLB bilaterally otherwise no wheezing, rales or rhonchi Heart: RRR, SR on tele in the 80s, no murmurs, rubs or gallops Abdomen: Soft, NTND, Bowel sounds present Ext: WWP, no edema Incisions: CDI Tubes/Lines/Drains: aileen ledesma aline rij, pw Assessment/Plan: 69 y.o. male 2 Days Post-Op ws/p avr/cabg x 3, recovering as expected Increase metoprolol 50 BID Start lasix 20 PO BID D/C gallagher Neuro: tylenol, oxy PRN CV: Increase metop 50'', crestor 40' Pulm: nc, wean as able, continue IS and encourage ambulation GI: adat, protonix : D/C aileen, continue to monitor I/O Renal: k prn, start lasix 20 PO BID Heme: asa 325 ID: no infection. Actively monitoring Endo: DM, SSI Dispo: transfer later Discussed with attending surgeon on rounds this morning. RASHEL Garcia 06/15/2020 Between the hours of 1800 - 0600 and on the weekends please page [phone]. * Mihaela Johnson, RN - 06/14/2020 4:57 PM EST [facility]. Oriented to room, call blanco within reach, educated on importance of using prior to getting OOB, AVSS, incision healing well, no significant drainage, no dehiscence, belongings updated in eDH, bed locked in low position, purposeful hourly rounding,bed/chair alarm on. * Chin Bernabe - 06/14/2020 11:04 AM ESTSummary: Post AVR/CABG recovering well Cardiac Surgery Progress Note Johnson Tobar is a 69 y.o. male who is 1 Day Post-Op AVR/CABG x 3. PMH of Diabetes Mellitus, GERD, Hyptertension. 24h Events: Patient was extubated at 16:47 yesterday by respiratory without incident. Amiodarone infusion stopped. Chest tubes removed at 13:40 06/14. S: Feels okay, complains of pain from pleural chest tube. Denies shortness of breath, nausea. O: Temp: [35.7 ??C (96.3 ??F)-37.2 ??C (99 ??F)] Heart Rate: [70-110] Resp: [12-29] BP: (107)/(57) SpO2: [90 %-100 %] Heart Rate from SpO2: [69 bpm-118 bpm] Drips: Nitroglycerin 40mcg/min 06/13 07 - 06/14 0700 In: 6436.7 [P.O.:60; I.V.:5163.7] Out: 2375 [Urine:1225] CT 692mL since surgery. 42 mL in last 4 hours Net -12.4 today, +4061.7 since admission Admit weight: 79.4 kg Current weight: Weight: 87.5 kg (192 lb 14.4 oz) Physical Exam: General: Sitting upright in chair in no acute distress. Appears tired Neuro: Awake, alert and oriented. CN II-XII grossly intact. Lungs: Decreased bases Heart: Sinus rhythm, Abdomen: soft, non-tender Ext:warm and well perfused. Incisions: Dressing are dry and in place. Tubes/Lines/Drains: Tube insertion sites appeared clear without ereythema; tubes removed at 13:40. Assessment/Plan: 69 y.o. male 1 Day Post-Op aortic valve replacement and CABG x 3 recovering without complications. -Increase metoprolol from 25mcg BID to 25mcg TID with goal of maintaining a systolic pressure less than 120 and a HR less than 100; decreasing HR closer to 60 would serve additional benefit due to allowing more filling time to overcome existing mitral stenosis - Start ASA 325 Neuro: Tylenol and oxycodone for pain CV: Metoprolol 25mcg TID. Patient also has mild mitral stenosis and will have better functionality if tachycardia is prevented. Pulm: Nasal Canula, Spirometry GI: Advance diet as tolerated, protonix : Gallagher Renal: Potassium prn Heme: aspirin 325 to prevent thrombus formation Endo: Insulin infusion Dispo: Transfer later Discussed with attending surgeon on rounds this morning. Chin Beltran Read 06/14/2020 Between the hours of 1800 - 0600 and on the weekends please page [phone]. * Kris Mayen PA - 06/14/2020 11:02 AM EST Cardiac Surgery Progress Note oJhnson Tobar is a 69 y.o. male 1 Day Post-Op AVR/CABG x 3. PMH of DJD, HLD, HTN, DM on orals 24h Events: Extubated 1700 Off pressors On ntg at 60 this a.m. YARON S: Feels ok, pleural CT hurts, denies sob, cp, abd pain, n/v O: Temp: [35.7 ??C (96.3 ??F)-37.2 ??C (99 ??F)] Heart Rate: [70-110] Resp: [12-27] BP: (107)/(57) SpO2: [90 %-100 %] Heart Rate from SpO2: [69 bpm-118 bpm] Drips: NTG 30 06/13 07 - 06/14 07 In: 6436.7 [P.O.:60; I.V.:5163.7] Out: 2375 [Urine:1225] PL CT - 140/65/30, M CT - 440/270/90 Admit weight: 79.4 kg Current weight: Weight: 87.5 kg (192 lb 14.4 oz) Physical Exam: General: Sitting in chair. NAD. Pleasant. Neuro: Awake and alert. CN II-XII grossly intact, moves all extremities with equal strength. Lungs: decreased bases, otherwise cta Heart: RRR, SR on tele Abdomen: Soft, NTND, hypoactive bowel sounds Ext: WWP, no edema Incisions: Dressing CDI Tubes/Lines/Drains: piv, gallagher, ct x 3, nayana paz Assessment/Plan: 69 y.o. male 1 Day Post-Op ws/p avr/cabg x 3, recovering as expected -wean ntg -start metop 25'' -hold lasix for now -dc ct's later -asa 325 Neuro: tylenol, oxy CV: wean ntg, metop 25'', crestor 40' Pulm: nc, wean as able, db/is GI: adat, protonix : gallagher Renal: k prn Heme: asa 325 ID: no issues Endo: ins gtt Dispo: transfer later Discussed with attending surgeon on rounds this morning. RASHEL ALFONSO 06/14/2020 Between the hours of 1800 - 0600 and on the weekends please page 1921. * Ramon Lucero, PATIENT FINANCIAL REP - 06/13/2020 4:47 PM EST Patient extubated to wi per order. Pt tolerating well. No distress noted. No stridor noted. Will continue to follow. Ramon Lucero RCP * Yaquelin Epstein MD - 06/13/2020 3:42 PM EST CRITICAL CARE ATTENDING PROGRESS NOTE ASSESSMENT, MANAGEMENT, and DECISION MAKING: Postoperative management issues including optimization of cardiopulmonary status. We are using PA catheter as a guide in this regard, going to goals of data from this monitor. Perfusion pressure goals achieved. Fully supportive ventilator settings until emergence. Propofol for sedation. Fentanyl for analgedia. Patient seen and examined. Johnson Tobar is a 69 y.o. male has issues that include: Active Hospital Problems Diagnosis ??? S/P AVR (aortic valve replacement) ??? S/P CABG (coronary artery bypass graft) ??? CAD (coronary artery disease) ??? ASCVD (arteriosclerotic cardiovascular disease) Status post stenting to his LAD over 11 years ago. LV function normal. No angina. ??? HTN (hypertension) Resolved Hospital Problems No resolved problems to display. Active Non-Hospital Problems Diagnosis ??? Aortic valve stenosis Added automatically from request for surgery [id number] ??? DJD (degenerative joint disease) ??? Elevated cholesterol ??? Aortic stenosis No change on echo. Valve area 1.4 cm squared. LV function normal. No other significant valve disease. PA pressure slightly up at 41. Echo 03/11/2020: EF 65%; TOBI 0.8; pV 5.0; mean Gr 57; PASP 35-45; Trivial AI/MR EXAM: Temp: [35.7 ??C (96.3 ??F)-36.3 ??C (97.3 ??F)] Heart Rate: [70-80] Resp: [12-16] BP: (107-146)/(57-80) SpO2: [97 %-100 %] Heart Rate from SpO2: [69 bpm-81 bpm] Physical Exam Constitutional: Appearance: Normal appearance. He is normal weight. Interventions: He is sedated and intubated. Cardiovascular: Rate and Rhythm: Normal rate. Pulmonary: Effort: He is intubated. Breath sounds: Normal breath sounds. Body mass index is 27.41 kg/m??. IS PATIENT CRITICALLY ILL ? Is there a high potential of sudden, clinically significant, or life threatening deterioration? No documented in this encounter H&P Notes * Chun Stanton MD - 06/13/2020 7:00 AM EST There has been No change in the patients condition or operative plan since last visit. Chun Stanton MD [phone] Source Note - Chun Stanton MD - 06/13/2020 6:57 AM EST Patient Name: Johnson Tobar Patient Age: 69 y.o. Birthdate: 1950 Admit date: 06/13/2020 Attending Physician: Chun Stanton MD Mr. Tobar is a 69-year-old male with known aortic stenosis. I reviewed her recent echocardiogram which shows severe, likely trileaflet aortic stenosis with an aortic valve area of 0.8 cm??, the mean gradient is 57, the peak velocity across this valve is 5 m/s. His LV systolic function is preserved. A complete review of systems and past medical history was obtained. The pertinent issues are asbelow. His symptoms are those of class II exertional dyspnea and occasional exertional chest pain. Importantly he is has known atherosclerotic coronary disease having undergone PCI with stent placement of an LAD lesion in the past. He has treated hypertension, he is a fao-xsubtny-nesuqxnkx diabetic. He has known dyslipidemia. He has had no known previous CVA or TIA. He has no known hepatic dysfunction he does have mild renal insufficiency with a baseline creatinine of about 1.3. He was not a user of tobacco. He is undergone prior appendectomy. He does have a family history of atherosclerotic disease in that his father following an WA at 48 years of age. He has worked his entire life [employer]. His cardiac cath shows severe CAD ?? On examination he is a blood pressure 150/80, his heart rates in the 70s at sinus by palpation. ?? His HEENT examination is unremarkable, there is no scleral icterus. There are murmurs transmitted to the neck bilaterally. ?? He has a harsh 4/6 systolic murmur at the right upper parasternal border which radiates into his neck. ?? His chest is clear to auscultation. ?? His lower extremities are free of edema. ?? There are no gross varicosities or neurological deficits. ?? In summary Mr. Tobar has severe, symptomatic aortic stenosis with CAD. I think he would benefitfrom aortic valve replacement therapy and coronary bypass. The potential risks and anticipated benefits were reviewed, his quetions were answered, he agrees to operation and has given written informed consent. Chun Stanton MD [phone] * Chun Stanton MD - 06/13/2020 6:57 AM EST Patient Name: Johnson Tobar Patient Age: 69 y.o. Birthdate: 1950 Admit date: 06/13/2020 Attending Physician: Chun Stanton MD Mr. Tobar is a 69-year-old male with known aortic stenosis. I reviewed her recent echocardiogram which shows severe, likely trileaflet aortic stenosis with an aortic valve area of 0.8 cm??, the mean gradient is 57, the peak velocity across this valve is 5 m/s. His LV systolic function is preserved. A complete review of systems and past medical history was obtained. The pertinent issues are asbelow. His symptoms are those of class II exertional dyspnea and occasional exertional chest pain. Importantly he is has known atherosclerotic coronary disease having undergone PCI with stent placement of an LAD lesion in the past. He has treated hypertension, he is a uza-vrqdsoz-qaseyofxx diabetic. He has known dyslipidemia. He has had no known previous CVA or TIA. He has no known hepatic dysfunction he does have mild renal insufficiency with a baseline creatinine of about 1.3. He was not a user of tobacco. He is undergone prior appendectomy. He does have a family history of atherosclerotic disease in that his father following an WA at 48 years of age. He has worked his entire life [employer] His cardiac cath shows severe CAD ?? On examination he is a blood pressure 150/80, his heart rates in the 70s at sinus by palpation. ?? His HEENT examination is unremarkable, there is no scleral icterus. There are murmurs transmitted to the neck bilaterally. ?? He has a harsh 4/6 systolic murmur at the right upper parasternal border which radiates into his neck. ?? His chest is clear to auscultation. ?? His lower extremities are free of edema. ?? There are no gross varicosities or neurological deficits. ?? In summary Mr. Tobar has severe, symptomatic aortic stenosis with CAD. I think he would benefitfrom aortic valve replacement therapy and coronary bypass. The potential risks and anticipated benefits were reviewed, his quetions were answered, he agrees to operation and has given written informed consent. Chun Stanton MD [phone] documented in this encounter Nursing Notes * Wilfred Heath RN - 06/13/2020 7:36 AM EST Safety strap applied top patient on transfer to OR bed. Defibrillator pads applied to patient prior to induction. Patient gave permission for , Emili, to be updated throughout the procedure via SDP Waiting. documented in this encounter Miscellaneous Notes * Op Note - Chun Stanton MD - 06/19/2020 12:00 PM EST [facility] [place] Operative Note Patient Name: Johnson Tobar : [id number] MR#: [id number] Case Date: 06/13/2020 Surgeon: Surgeon(s) and Role: * Chun Stanton MD - Primary * Kris Mayen PA - Physician Reverberatory Skimmer ?? Preoperative diagnosis: , CAD ?? Postoperative diagnosis: , CAD, Severely calcified and diffusely diseased small coronaries, smallvein. Severe calcification of a tri leaflet valve with calcium extending into myocardium and root, 2/3 systemic PA pressures Post bypass EF 55%, Severe LVH. Mild MS/MR, nl bioprosthetic aortic valve function ?? Procedure(s) (LRB): @REPLACE AORTIC VALVE, OPEN, W\CPB, W\PROSTHETIC VALVE (WRVU 41.32) (N/A) @CABG, USING ARTERIAL GRAFT;SINGLE ARTERIAL GRAFT (WRVU 33.75) (Left) @CABG, TWO VENOUS GRAFTS & ARTERIAL GRAFT (WRVU 7.93) (N/A) ENDOSCOPIC HARVEST VEIN(S) FOR CABG (WRVU 0.31) (Right) ? AVR 23 mm Inspriris bioprosthesis CABG/ x 3 ?? MCKEON->LAD Seq SVG->OM1->D1 ?? Anesthesia: General/Melissa ?? Findings: , CAD, Severely calcified and diffusely diseased small coronaries, small vein. Severe calcification of a tri leaflet valve with calcium extending into myocardium and root, 2/3 systemic PApressures Post bypass EF 55%, Severe LVH. Mild MS/MR, nl bioprosthetic aortic valve function ? Estimated Blood Loss: 500 mL -> Cell Saver ?? Specimens removed during surgery: Aortic Valve Fluids: Intraprocedure Crystalloid Total Intake Lactated Ringers 700.00 mL Sodium Chloride 0.9% 900.00 mL Cell Saver Volume 484 mL Platelets Volume 227 mL Total Intake 2311 mL Output Urine Output 385 mL Blood Loss 500 mL Total Output 885 mL Net Net Volume 1426 mL ?? PRBCs: none (See Anesthesia Record/Report for Other Blood Products) Urine Output: 385 mL ?? Drains: Mediastinal and Plural ?? Disposition: CVCC ?? Condition: doing well without problems Procedure Description: The patient was brought to the operating room and placed on the operating table in supine position.Following the induction of a general anesthetic by endotracheal technique and the placement of appropriate monitoring lines he was prepped and draped using a sterile prep. Simultaneous incisions weremade in his midsternal region as well as in the lower extremity. The incision in the lower extremity was utilized to obtain pieces of the greater saphenous vein using a combination of open and endoscopic techniques. The vein was harvested prepared for anastomosis and set aside. The lower extremity wounds were then closed using a layered absorbable suture closure. The wound in the midsternum was carried down through the sternum which was divided with a saw. The left hemisternum was then elevatedwith a mammary artery retractor and the mammary artery was dissected from the endothoracic fascia using Bovie electrocautery taking significant branches with hemoclips. The distal cut end of the LIMAhad excellent flow, it was wrapped in a verapamil soaked gauze and set aside. The mammary artery retractor was then replaced with a standard sternal retractor. The pericardium was opened. He was heparinized and cannulated for bypass. He was brought on bypass. The aorta was crossclamped. The heart was arrested with cold hyperkalemic blood cardioplegia. Additional doses of cardioplegia were given th roughout the cross-clamp interval as indicated by any significant rise in myocardial septal temperature, or the return of any cardiac electrical activity. The suquental vein graft to the obtuse marginal (end to side ) and then to the diagonal branch (side to side) was performed using 4 mm arteriotomies and running 7-0 Prolene suture. At this point the aortic valve was replaced via transverse aortotomy 1.5 cm cephalad to the right coronary orifice. The above findings are noted the valve leafletsare sharply excised. The excess calcium was removed with pituitary rongeurs. The left ventricular cavity was irrigated with a copious amount of saline to remove all calcific debris. The annulus was then rimmed with horizontal polyester mattress sutures leaving the felt pledgets and the ventricular surface. These were passed through an appropriately oriented 23 mm bovine prosthesis which was secured. The aortic root was closed using 2 running 4-0 Prolene sutures were tied upon themselves. The proximal anastomosis was then completed with a 4 mm aortic punch and running 6-0 Prolene suture. Whilethe patient was being rewarmed on bypass the end of the MCKEON was anastomosed to the side of the midLAD using a running 8-0 Prolene suture and a 4 mm arteriotomy. The atraumatic clip on the MCKEON pedicle was removed at the completion of this anastomosis and the heart promptly resuscitated indicating good flow through the MCKEON. The cross-clamp was then removed. He was electrically defibrillated andfully rewarmed on bypass. During rewarming several maneuvers were executed remove all residual air from the left ventricular cavity as was confirmed by intraoperative echo. Epicardial and right atrial pacing wires were positioned. Once rewarmed on bypass he was from bypass without significant difficulty. The above echo findings are noted.. Protamine sulfate was administered. He was decannulated. Mediastinal and pleural drainage catheters were positioned. Hemostasis was secured. The sternum was reapproximated with surgical wire. Soft tissues anterior to the sternum were reapproximated using a layered absorbable suture closure. Sterile dressings were applied. He was taken to the cardiothoracic intensive care unit in hemodynamically stable condition. Attestation: Case Date: 06/13/2020 I was present and I participated during the entire procedure (does not need to include opening and closing). CHUN STANTON MD 06/19/2020 * Plan of Care - Jose Buckley RN - 06/19/2020 6:13 AM EST OUTCOME EVALUATION NOTE: OUTCOME SUMMARY: Uneventful night, slept between care. VS as documented. Pain well controlled. Voiding with no issue(Inaccurate I&O due to not using urinal). NSR on tele, see saved strips. Sternal cdi, precaution maintained. PLAN MOVING FORWARD: Discharge home today INDIVIDUALIZED FALL PREVENTION INTERVENTIONS: Patient-specific fall risk factors per assessment: [current deficits]: Hospital environment Assistance [level of assistance required for transfers and ambulation]: Indep/SBA Supervision [direct monitoring required during toileting and ADLs]: Indep Surveillance [continuous indirect monitoring]: Tele, purposeful rounding, call blanco in reach CPG GOAL OUTCOME EVALUATION: ongoing * Plan of Care - Emili Escobar RN - 06/17/2020 6:36 PM EST Problem: Patient Care Overview Goal: Plan of Care Review 06/17/20 520 Coping/Psychosocial Plan Of Care Reviewed With patient OUTCOME EVALUATION NOTE: OUTCOME SUMMARY: PT OOB to chair and ambulating in holliday, returning to bed after dinner. Cooperative. Midline incision clean and dry. Denies need for pain medication. PLAN MOVING FORWARD: Continue as planned. INDIVIDUALIZED FALL PREVENTION INTERVENTIONS: Patient-specific fall risk factors per assessment: [current deficits]: Post op. Assistance [level of assistance required for transfers and ambulation]: Stand by assist. Supervision [direct monitoring required during toileting and ADLs]: Hourly rounding. Surveillance [continuous indirect monitoring]: Telemetry. Patient-specific fall prevention interventions for sensory deficits provided, if applicable: [X] Yes CPG GOAL OUTCOME EVALUATION: * Plan of Care - Amberly Barnard, PT - 06/17/2020 9:22 AM EST Physical Therapy Note Treatment Number PT: 4 Patient profile: Johnson Tobar??is a 69 y.o.??right??handed male??admitted on 06/13/2020??now under the care of Dr. Chun Stanton MD.?Pt with history of severe symptomatic with CAD. ??He presented to same day for surgery. ??He underwent 06/13/20 AVR and CABGx3. ??He was extubated theearly evening of 06/13/20. ??He transferred from the CCU to [facility] on 06/14/20. PMH of??DJD, HLD, HTN, DM on orals. Interval History: Increased metoprolol 100 BID Increased lasix 40 BID D/C'd PW Was coughing O/N causing pain, given tessalon, mucinex and dextromethorphan with relief Started Glipizide 5mg, started having some diarrhea x 6 Social History: Home set-up:??Lives with in a 2 level home, with 1 cat. ?Planning to stay on 1st level, only bathroom on 1st floor, bedroom is usually upstairs. Bathroom Set-up:??only bathroom on 1st floor with walk in shower. Stairs:??4-5 with a rail to enter, 12 with a rail to the bedroom. 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 ??Enjoys TV and sports- likes [employer] and [employer]. ?? Equipment at home:??none Fall history:??none. Precautions/Special Considerations:??Sternal Precautions: no lifting >7-10 lbs.; no pushing or pulling with UE's; no excessive chest stretching. Lines:??IV Activity Orders:??Ambulate Diet:??carb controlled.?? Mobility and Positioning Recommendations: ?? Pt. To use FWW and supervision for ambulation and transfers with nursing. ?? Encourage pt to ambulate 3-4x/day. ?? Encourage ther-ex and breathing. ?? Please encourage up to chair for meal times as able. Subjective: I feel better after walking, thank you. Pt reported nausea at start of session which subsided after ambulation Objective: Patient seen for physical therapy and demonstrated the following: Pain: Pt had no c/o pain during session. Vital Signs: At Rest With Activity SpO2 (RA) 95% 95% BP stable stable HR 76bpm 92bpm Bed mobility: Supine to Sit: NT pt verbalized no concerns. Provided ongoing education regarding log roll, pt deferred practicing Sit to Supine: NT Transfers: Sit to Stand: supervision - able to maintain sternal precautions without cues Stand to Sit: supervision Gait: Distance: 150' Device Used: FWW Level of Assist: supervision Gait Mechanics: reduced lance, step-length decreased (B) and swing-through gait Stairs: Pt ascend/descend 5 steps with use of railing for balance and supervision. Performed via step to pattern. Balance: Static Sitting: good Dynamic Sitting: good Static Standing: good Dynamic Standing/Gait: good with FWW Therapeutic Exercise: Pt educated on the importance of getting OOB, ambulating in hallway with staff as able, and sittingupright in chair frequently throughout the day. Pt verbalized understanding. Pt left in bedside recliner chair, with all needs met and with call blanco in reach RN updated following visit. Education: pt educated on bed mobility, transfers, AD use, safety, gait and stairs. Pt verbalized understanding. Assessment: Johnson Tobar was seen today for physical therapy treatment session for continuation of POC. Upon arrival, pt initially reclined in chair, agreeable to participate. Pt able to performtransfers, gait and stairs with supervision and use of FWW for ambulation. Recommend pt utilize FWWafter d/c. Pt has met all inpatient PT goals and can be discharged home with assist and home PT when medically ready. Pt will need a FWW prior to d/c. Pt has no further inpatient PT needs, yet shouldcontinue to ambulate with staff frequently throughout the day to prevent deconditioning while hospitalized. Discharge Recommendations: Based on the current findings, Anticipated Discharge Disposition: home with assist, home with home health when medically ready for hospital discharge. Consult Recommendations: No other consults recommended at this time. Equipment needs: FWW Physical Therapy Goals: to be achieved by 06/23/20 1. Pt will ambulate??with modified independence??200??ft. ??with??an assistive device to allow for a safe d/c. 2. Pt will perform all post op cardiac surgery exercises adequately. 3. Pt will demonstrate independence with incentive spirometer and/or threshold PEP to promote lung function. 4. Pt will demonstrate understanding of sternal precautions to allow for a safe d/c. 5. Pt will be able to transfer sit <-> stand??independently??while maintaining sternal precautions to allow for a safe d/c. 6. Pt will be able to go supine <-> sit??independently??while maintaining sternal precautionsto allow for a safe d/c. 7. Pt will be able to go up and down??5-12??stairs using a rail for balance only ??with supervision??to prepare for a safe d/c. All Goals met as of 06/17/2020 unless otherwise noted Plan: Therapy Frequency: monitor for therapy as outlined in initial evaluation. Patient agrees withplan as stated. Time IN / OUT: 905 - 921 Total Evaluation Minutes, Physical Therapy: 16(TE-Fx1) Amberly Barnard PT, DPT Pager: [phone] Physical Therapy Inpatient Rehabilitation Department * Plan of Care - Nicole Domínguez RN - 06/17/2020 7:59 AM EST Pt A&O x4, SBA/ independent in room ambulation, 1x minimum assist in bed mobility. Pt no c/o pain, but slight abdominal upset. Pt suspects this is caused by Tylenol. Pt refused 0600 Tylenol. SR on tele, hypertensive 160s -170s. 150's after Metoprolol tartrate 100 mg given. Sternal incision dry and well approximated. Will continue monitoring. Call blanco within reach. * Plan of Care - Mac, Brennan Lisa, PT - 06/16/2020 12:30 PM EST Physical Therapy Note Treatment Number PT: 3 Patient profile: Johnson Tobar is a 69 y.o. right handed male admitted on 06/13/2020 now under the care of Dr. Chun Stanton MD. Pt with history of severe symptomatic with CAD. He presented to same day for surgery. He underwent 06/13/20 AVR and CABGx3. He was extubated the early eveningof 06/13/20. He transferred from the CCU to [facility] on 06/14/20. PMH of??DJD, HLD, HTN, DM on orals. Interval History: pacer wires out this morning, burst of SVT this morning, insulin gtt d/c'd, BM last night. Metoprolol increased, on lasix PO, gallagher out. Social History: Home set-up: Lives with in a 2 level home, with 1 cat. Planning to stay on 1st level, only bathroom on 1st floor, bedroom is usually upstairs. Bathroom Set-up: only bathroom on 1st floor with walk in shower. Stairs: 4-5 with a rail to enter, 12 with a rail to the bedroom. 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 Equipment at home: none Fall history: none. ?? Precautions/Special Considerations: Sternal Precautions: no lifting >7-10 lbs.; no pushing or pulling with UE's; no excessive chest stretching. Lines: IV Activity Orders: Ambulate Diet: carb controlled. Mobility and Positioning Recommendations: ?? Pt. To use rolling walker and supervision with cues for sternal precautions with ambulation and transfers. Can walk without a device with contact guard. ?? Mod-min assist and cues for bed mobility. ?? Encourage more walks daily. ?? Encourage ther-ex and breathing. ?? Please encourage up to chair for meal times as able. Subjective: A little Short of breath, when asked how he felt after walking. I have to go to the bathroom again, pt stated at end of session. Left on toilet with chief of staff doctor aware and monitoring. Objective: Patient seen for physical therapy and demonstrated the following: Pain: None reported during session. Vital Signs: Heart Rate: (80 at rest, 94 post walk little SOB, 81 post rest.) BP: (142/73 per RN prior to PT arriving. ) SpO2: 93 %(91% post walk, some SOB, 95% post rest and deep breathing) O2 Device: None (Room air) ?? Pt on toilet when PT arrived. ?? Sit to stand from toilet on his own. Did well with precautions. ?? Ambulated 5 feet out of bathroom without a device with contact guard. ?? Stand to sit with supervision. ?? Needed reminders not to use UEs to reposition. ?? Reviewed sitting ther-ex, deep breathing, and IS use: ankle pumps, knee extension, ankle circles, cervical flexion/extension/rotation, and shoulder flexion; IS 500-750ml. ?? Sit to stand with supervision and 1 reminder not to use UEs. ?? Pivoted to bed with supervision and cues. ?? Sit<->supine to/from left side of bed, 2x, with extra pillows; 1st time with supervision sit to supine with cues and min assist to reposition, and 2nd time with supervision sit to supine; Sit to supine with mod assist 1st time with cues via rolling, and 2nd time to left side of bed via rolling with minimal assistance and cues. Pt educated to practice with chief of staff doctor the next 24 hours with bed flat. ?? Sit to stand from bed with supervision, did well with precautions. ?? Ambulated 250 ft without a device with contact guard and one standing rest, wide base of support, decreased step length, occ sway, and sway increased as he walked, he seemed to favor RLE some, butreported no pain. Discussed trial of walker again next walk with patient and chief of staff doctor. ?? Stand to sit with supervision and cues. ?? Assist to recline recliner, got settled, and then patient reported he had to go the bathroom again. ?? Assist to sit recliner up, and pt stood and ambulated to bathroom without device and sat on toilet with cues and close supervision. ?? Left on toilet with RN aware, and all needs in reach. Education: Pt educated as above and to walk more with chief of staff doctor, practice bed mobility, and to call for greenhouse staff assistance with all mobility. Assessment: Johnson Tobar was seen today for physical therapy treatment session for continuation of POC. Pt making gains in his mobility and function, but still needs occ cues for sternal precautions with, assistance with bed mobility, and his gait was a bit guarded without a device today. He was educated to use walker as needed at this time, to improve gait and confidence, and he will likelyprogress off walker prior to d/c. He was a little SOB with walking, but vitals were stable on RA. He has to use the bathroom 2x during session today, and chief of staff doctor aware. He plans to return home with family support when medically stable, and expect continued steady gains in his mobility and function. Will continue PT to safely progress his mobility and function while he remains in-house. Will continue mobility, stair, and bed mobility training prior to d/c home. Pt will benefit from family support and home PT and RN services when he returns home. Pt will benefit from ongoing therapeutic interve ntions to achieve therapy goals. Discharge Recommendations: Based on the current findings, Anticipated Discharge Disposition: home with assist, home with home health when medically ready for hospital discharge. Consult Recommendations: No other consults recommended at this time. Equipment needs: TBD- likely none. Try cane if needed? Physical Therapy Goals: -The BELOW GOALS remain ONGOING- To be achieved by 06/23/20: 1. Pt will ambulate with modified independence 200 ft. with an assistive device to allow for a safed/c. 2. Pt will perform all post op cardiac surgery exercises adequately. 3. Pt will demonstrate independence with incentive spirometer and/or threshold PEP to promote lung function. 4. Pt will demonstrate understanding of sternal precautions to allow for a safe d/c. 5. Pt will be able to transfer sit <-> stand independently while maintaining sternal precautions to allow for a safe d/c. 6. Pt will be able to go supine <-> sit independently while maintaining sternal precautions to allow for a safe d/c. 7. Pt will be able to go up and down 5-12 stairs using a rail for balance only with supervision to prepare for a safe d/c. ?? Plan: Therapy Frequency: 2-4 times/wk for as outlined in initial evaluation. Time IN / OUT: 1144 to 1230 Total Evaluation Minutes, Physical Therapy: 46(functional mobility) BRENNAN WATTS, PT Pager:[phone] Physical Therapy Inpatient Rehabilitation Department * Consult Note - Jody Reed RN - 06/16/2020 11:32 AM EST [facility] [place] [facility] Johnson Tobar was seen today regarding participation in the outpatient Phase 2 Cardiac Rehabilitation at [facility]. The patient agrees to a referral to this program. The referral will be sent at discharge and the patient should be contacted by the Program within 1- 2 weeks from discharge. * Plan of Care - Rhianna Lawson RN - 06/16/2020 4:29 AM EST Problem: Patient Care Overview Goal: Plan of Care Review Outcome: Ongoing (Interventions Implemented as Appropriate) 06/15/20199906/16/20 0403 Plan of Care Review Progress -- progress toward functional goals as expected Coping/Psychosocial Plan Of Care Reviewed With patient -- OUTCOME EVALUATION NOTE: OUTCOME SUMMARY: Pt had an uneventful shift. Slept between care. A&Ox4. No reports of CP or SOB. SpO2 maintainedabove 90% on RA. Midsternal and right leg incisions C/D/I. Reported incisional pain at 07/24. Well controlled with scheduled Tylenol. Ambulated in room with x1 assist. Tolerated well. VSS - see flowsheet. SR, rates 70-90s - see scanned docs. Burst of SVT this morning. PA-C notified. Insulin gtt maintained per protocol. BM last night. PLAN MOVING FORWARD: CT Pathway Ambulate CXR today INDIVIDUALIZED FALL PREVENTION INTERVENTIONS: Patient-specific fall risk factors per assessment: [current deficits]: Tele/Masimo wires; IV tubing; recent procedure with sternal precautions Assistance [level of assistance required for transfers and ambulation]: X1 assist w/ FWW Supervision [direct monitoring required during toileting and ADLs]: Hands on Surveillance [continuous indirect monitoring]: Tele/Masimo; purposeful hourly rounding; call blanco within reach Patient-specific fall prevention interventions for sensory deficits provided, if applicable: Lighting adjusted for specific task/activity; non-skid socks; bed in locked/lowest position CPG GOAL OUTCOME EVALUATION: Ongoing Goal: Fall Prevention-Safe Patient Handling 06/15/20199906/16/20 0200 Taylor Fall Risk History of Falling 0 -- Secondary Diagnosis 15 -- Ambulatory Aids 0 -- Intravenous Therapy/Heparin/Saline Lock 20 -- Gait/Transferring 10 -- Mental Status 0 -- Score 45 -- OTHER Taylor Fall Risk High -- Restraint Interventions Safety Promotion/Fall Prevention -- safety round/check completed Positioning Body Position independent;supine, head elevated -- Activity Activity Type activity adjusted per tolerance -- Activity Assistance Provided assistance, 1 person -- Assistive Device Utilized front-wheel walker -- Goal: Infection Control 06/15/201999 Safety Interventions Isolation Precautions standard precautions maintained Infection Prevention environmental surveillance performed;personal protective equipment utilized;rest/sleep promoted Coping Strategies Supportive Measures active listening utilized;verbalization of feelings encouraged;self-care encouraged;relaxation techniques promoted * Plan of Care - Brennan Watts, PT - 06/15/2020 4:04 PM EST Physical Therapy Note Treatment Number PT: 2 Patient profile: Johnson Tobar is a 69 y.o. right handed male admitted on 06/13/2020 now under the care of Dr. Chun Stanton MD. Pt with history of severe symptomatic with CAD. He presented to same day for surgery. He underwent 06/13/20 AVR and CABGx3. He was extubated the early eveningof 06/13/20. He transferred from the CCU to [facility] on 06/14/20. PMH of??DJD, HLD, HTN, DM on orals. Interval History: some nausea, incision dry, remains on insulin gtt. Per MD notes: -Started BB -Held lasix for low filling pressures, got some albumin -Transferred to floor -15 sec burst of afib in the 100s Social History: Home set-up: Lives with in a 2 level home, with 1 cat. Planning to stay on 1st level, only bathroom on 1st floor, bedroom is usually upstairs. Bathroom Set-up: only bathroom on 1st floor with walk in shower. Stairs: 4-5 with a rail to enter, 12 with a rail to the bedroom. 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 Enjoys TV and sports- likes [employer] and [employer]. Equipment at home: none Fall history: none. ?? Precautions/Special Considerations: Sternal Precautions: no lifting >7-10 lbs.; no pushing or pulling with UE's; no excessive chest stretching. Lines: IV gallagher catheter Activity Orders: Ambulate Diet: carb controlled. Mobility and Positioning Recommendations: ?? Pt. To use rolling walker and contact guard with cues for sternal precautions with ambulation and transfers. ?? Mod-min assist and cues for bed mobility. ?? Encourage more walks daily. ?? Encourage ther-ex and breathing. ?? Please encourage up to chair for meal times as able. Subjective: I feel a little sick, pt reported some nausea when PT arrived, vitals stable. That walk did me good, pt stated at end of session. Objective: Patient seen for physical therapy and demonstrated the following: Pain: not really. Vital Signs: Heart Rate: 74(87 p walk, some SOB. ) BP: 128/71 SpO2: 93 %(94% post walk, some SOB) O2 Device: None (Room air) ?? Pt in recliner reclined when PT arrived, resting but easily arose. ?? Needed assist to sit recliner chair upright. ?? Reviewed sitting ther-ex, deep breathing, and IS use: ankle pumps, knee extension, ankle circles, cervical flexion/extension/rotation, and shoulder flexion; IS 500-750ml. ?? Sit to stand with contact guard and cues. ?? Ambulated 180 ft with rolling walker with one standing rest to adjust walker height with close supervision to contact guard and cues. Some SOB after walking. Assist with IV Pole needed ?? Stand to sit with supervision and cues. ?? Sit to supine via sidelying with min assist and cues for LEs. ?? Min assist and cues to reposition in bed. ?? Pt left supine in bed with HOB up, pillows supporting arms and legs, and bed alarm on at end of session with all needs in reach. Education: Pt educated as above and to walk more with chief of staff doctor and to call for greenhouse staff assistance with all mobility. Assessment: Johnson Tobar was seen today for physical therapy treatment session for continuation of POC. Pt making gains in his mobility and function, but did need cues and one assist with walkerfor safety with mobility today. He was a little SOB with walking, but vitals were stable on RA; andnausea improved after walking. He plans to return home with family support when medically stable, and expect continued steady gains in his mobility and function. Will continue PT to safely progress his mobility and function while he remains in- house. Pt will benefit from ongoing therapeutic interventions to achieve therapy goals. Discharge Recommendations: Based on the current findings, Anticipated Discharge Disposition: home with assist, home with home health when medically ready for hospital discharge. Consult Recommendations: No other consults recommended at this time. Equipment needs: TBD- likely none. Physical Therapy Goals: -The BELOW GOALS remain ONGOING- To be achieved by 06/23/20: 1. Pt will ambulate with modified independence 200 ft. with an assistive device to allow for a safed/c. 2. Pt will perform all post op cardiac surgery exercises adequately. 3. Pt will demonstrate independence with incentive spirometer and/or threshold PEP to promote lung function. 4. Pt will demonstrate understanding of sternal precautions to allow for a safe d/c. 5. Pt will be able to transfer sit <-> stand independently while maintaining sternal precautions to allow for a safe d/c. 6. Pt will be able to go supine <-> sit independently while maintaining sternal precautions to allow for a safe d/c. 7. Pt will be able to go up and down 5-12 stairs using a rail for balance only with supervision to prepare for a safe d/c. ?? Plan: Therapy Frequency: 2-4 times/wk for as outlined in initial evaluation. Time IN / OUT: 1533 to 1604 Total Evaluation Minutes, Physical Therapy: 31(functional mobility) BRENNAN WATTS PT Pager:[phone] Physical Therapy Inpatient Rehabilitation Department * Consult Note - Zenia Lanza, P[employer] M[employer] OPERATOR - 06/15/2020 3:50 PM EST Images from the original note were not included. Diabetes Management Team Inpatient Consult Date of Consultation: 06/15/2020 Consult Requested by: cardiac surgery Reason for Consultation: Johnson Tobar is a 69 y.o. male with PMH significant for T2 DM ASCVD, HTN, and HLD who was admitted on 06/13/2020 currently being treated for AVR and CABG. We are being consulted to assist with diabetes management and to provide a review of [facility]dc diabetes care. Diabetes History: Johnson Tobar has had diabetes for about 5 years. He states it is pre diabetes but takes 2 oral agents. He reports he gets diarrhea daily from metformin. 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 He had to ask for help in the hay underwood this year due to [place]. He has been limited by [place] but tries to stay active. He helped his son process a couple cord of wood. He does ride a stationary bike and takes walks. He lives with his . Current outpatient diabetes regimen: Diabetes Provider: PCP Medications: Glipizide ER 10 mg daily Metformin 1000 mg twice daily Monitoring is done once a day in the morning Range 150 - 170 Most recent HA1c was done on 06/14/20 and was 8.2% Typical diet is: 3 meals and 1-2 snacks a day likes donut and coffee a couple times a week Breakfast- medium bowl of cereal sometimes with fruit milk and occasional toast Lunch- large meal of the day Casserole and veggies Supper- soup Typical exercise regimen is walks, stationary bike , chores Trouble with hypoglycemia no Current Weight 83 KG BMI 28 Diabetes education: yes in the past Diabetes Complications Status: Eyes: None Kidneys: None Feet: None Sensory: None Autonomic: None Cardiovascular : ASCVD Current Hospital Diabetes Care: Medications: Lispro 3-6 units with meals and Continuous IV insulin Monitoring: q 1 hrs Diet: carb control level 2 ROS: deferred PMH Past Medical History: Diagnosis Date ??? Diabetes treated with oral medication ??? Gastroesophageal reflux controlled with medication ??? Heart valve disease ??? High blood pressure treated with medication ??? Myocardial infarction ??? Peptic ulcer disease >15 yrs ago ??? S/P AVR (aortic valve replacement) 06/13/2020 Current Hospital Medications: ??? furosemide 20 mg Oral BID ??? metoprolol tartrate 50 mg Oral Q8H AMI ??? insulin lispro 0-10 Units Subcutaneous TID WC ??? insulin glargine 12 Units Subcutaneous Nightly ??? [START ON 06/16/2020] glipiZIDE XL 5 mg Oral Daily with breakfast ??? aspirin EC 325 mg Oral Daily ??? sodium chloride 0.9 % (flush) 5 mL Intravenous Q8H ??? rosuvastatin 40 mg Oral QPM ??? pantoprazole EC 40 mg Oral Daily ??? senna-docusate 2 tablet Oral Daily ??? magnesium hydroxide 10 mL Oral Daily ??? acetaminophen 1,000 mg Oral Q6H AMI Infusions: ??? insulin regular human 3 Units/hr (06/15/20 1548) PRN: glucose 40% oral geL OR dextrose 10% OR glucagon (human recombinant), ondansetron, [START ON 06/16/2020] bisacodyL, insulin regular human, oxyCODONE Allergy: No Known Allergies Social history: Social History Tobacco Use ??? Smoking status: Never Smoker ??? Smokeless tobacco: Never Used Substance Use Topics ??? Alcohol use: Not Currently ??? Drug use: Never Family history: History reviewed. No pertinent family history. Vitals Last value Range last 24 hrs Temperature Temp: 37.5 ??C (99.5 ??F) Temp: [36.4 ??C (97.5 ??F)-37.5 ??C (99.5 ??F)] Heart Rate Heart Rate: 75 Heart Rate: [75-81] Blood Pressure BP: 148/82 BP: (127-184)/(61-82) Respiratory Rate Resp: 20 Resp: [20-24] SpO2 SpO2: 96 % SpO2: [94 %-98 %] Physical Exam: deferred Labs: Recent Labs 06/14/20 0513 06/13/20 1738 06/13/20 1240 06/13/20 1150 WBC 13.5* -- 9.1 -- HGB 8.8* 9.9* 7.3* 7.8* HCT 25.5* -- 21.4* 22.7* PLATELET 123* -- 81* 107* NEUTROABS 10.60* -- -- -- Recent Labs 06/15/20 0537 06/14/20 0513 06/13/20 1738 NA -- 140 -- K 4.7 4.0 3.9 CL -- 106 -- CO2 -- 24 -- BUN -- 14 -- CREATININE -- 0.99 -- GLUCOSE -- 143 -- Recent Labs 06/14/20 0513 CALCIUM 8.0* No results for input(s): PROT, ALBUMIN, AST, ALT, ALKPHOS, BILITOT, BILIDIR in the last 168 hours. Recent Labs 06/13/20 1240 INR 1.5 PT 17.2* PTT 27 Recent Labs 06/14/20 0513 TROPONINT 0.47* Recent Labs 06/14/20 0513 GLUCOSE 143 Assessment: Patient is a 69 y.o. years old male with PMH significant for DM (Last A1C of 8.2%) who was admittedon 06/13/2020 for AVR CABG. Diabetes moderately controlled and currently complicated by stress of cardiac surgery . Currently with variability of blood glucose levels while hospitalized requiring adjustment of insulin regimen and DM medications. We discussed importance of glycemic control less than 180 to promote wound healing and decrease risk of infection. He is willing to use once daily insulin at home while healing if necessary. Will askKaye Hooper LINING FOLDER CDE to see him for advanced insulin teaching. IV insulin rate was 0.5 units per hour from midnight to 4 AM suggestion a total BASAL requirement of 12 units. Will give 12 units lantus tonight and continue IV insulin overnight. Will stop meal coverage after supper and start glipizide at 50% home dose tomorrow AM. Plan: 1. Lantus 12 units qd at 21:00 2. Continue IV insulin infusion overnight will evaluate in AM 3. Meal-associated Lispro 0-10 units tid ac (or 1unit: 8 gm carb ratio for each meal) last dose with supper tonight 4. Start Glipizide XR 5 mg before breakfast tomorrow ocean transportation intermediary diabetes care: Medications - Outpatient treatment regimen recommendations pending based on the hospital course. Monitoring - continue BG tid ac & hs Diet - low fat/low carb diet Exercise - weight-bearing exercise 30 min/day, as tolerated Thank you for allowing us to provide care for your patient Zenia Pool [facility] Pager [phone] minutes of this 80 minute visit was spent with the patient in counseling on diabetes and treatment plan, reviewing all glucose and insulin data as well as relevant laboratory results with the patient, and coordination of care on the inpatient unit * Plan of Care - Nicole Domínguez RN - 06/15/2020 8:17 AM EST Pt A&Ox4, Insulin gtt adjusted accordingly between 0 unit/hr and 1.37 units/hr. Pain on L flankwas alleviated with oxycodone and scheduled tylenol. Gallagher catheter has no s/s of complication. Sternal incision dressing dry and intact. Pt got up in chair this morning with 2x assist and walker. Ptpractices IS diligently throughout the night independently. Will continue monitoring. Call blanco within reach. * Plan of Care - Brennan Watts, PT - 06/14/2020 5:20 PM EST Physical Therapy Evaluation Patient profile: Johnson Tobar is a 69 y.o. right handed male admitted on 06/13/2020 now under the care of Dr. Chun Stanton MD. Pt with history of severe symptomatic with CAD. He presented to same day for surgery. He underwent 06/13/20 AVR and CABGx3. He was extubated the early eveningof 06/13/20. He transferred from the CCU to [facility] on 06/14/20. PMH of DJD, HLD, HTN, DM on orals. Patient with the following active problems: Past Medical History: Diagnosis Date ??? Diabetes treated with oral medication ??? Gastroesophageal reflux controlled with medication ??? Heart valve disease ??? High blood pressure treated with medication ??? Myocardial infarction ??? Peptic ulcer disease >15 yrs ago ??? S/P AVR (aortic valve replacement) 06/13/2020 Active Non-Hospital Problems Diagnosis ??? Aortic valve stenosis ??? DJD (degenerative joint disease) ??? Elevated cholesterol ??? Aortic stenosis Past Surgical History: Procedure Laterality Date ??? CORONARY ANGIOPLASTY WITH STENT PLACEMENT 1997 ??? PRO CABG, ARTERIAL, SINGLE Left 06/13/2020 @CABG, USING ARTERIAL GRAFT;SINGLE ARTERIAL GRAFT (WRVU 33.75) performed by Chun Stanton MD at [facility] MAIN OR ??? PRO CABG, ARTERY-VEIN, TWO N/A 06/13/2020 @CABG, TWO VENOUS GRAFTS & ARTERIAL GRAFT (WRVU 7.93) performed by Chun Stanton MD at [facility] MAIN OR ??? PRO ENDOSCOPY W/VIDEO-ASST VEIN HARVEST, CABG Right 06/13/2020 ENDOSCOPIC HARVEST VEIN(S) FOR CABG (WRVU 0.31) performed by Chun Stanton MD at [facility] MAIN OR ??? PRO REPLACE AORT VALV, PROSTH VALV N/A 06/13/2020 @REPLACE AORTIC VALVE, OPEN, W\CPB, W\PROSTHETIC VALVE (WRVU 41.32) performed by Chun Stanton MD at [facility] MAIN OR Social History: Home set-up: Lives with in a 2 level home, with 1 cat. Planning to stay on 1st level, only bathroom on 1st floor, bedroom is usually upstairs. Bathroom Set-up: only bathroom on 1st floor with walk in shower. Stairs: 4-5 with a rail to enter, 12 with a rail to the bedroom. 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 Enjoys TV and sports- likes [employer] and [employer]. Equipment at home: none Fall history: none. Precautions/Special Considerations: Sternal Precautions: no lifting >7-10 lbs.; no pushing or pulling with UE's; no excessive chest stretching. Lines: IV gallagher catheter Activity Orders: Ambulate Diet: carb controlled. Mobility and Positioning Recommendations: ?? Pt. to utilize walker or hand hold assist and 1-2 assist for ambulation and transfers with nursing. ?? Please encourage up to chair for meal times as able. ?? Pt encouraged to ambulation with staff as appropriate with walker, follow of a 2nd with a chair for safety at this time. Bed alarm for safety. Subjective: ???Not bad, better than this morning,?? regarding how he feels. Objective: Pt seen for evaluation today. Started eval in the CCU and assisted with transfer to [facility] and helped settle patient in new room. Pain: 2/10 sternal pain at rest, 3/10 after activity- asking for pain meds- RN aware. Vital Signs: Heart Rate: 78 BP: 134/79 SpO2: 97 % O2 Flow Rate (L/min): 4 L/min O2 Device: Nasal cannula Mental Status: alert, oriented to person, place, and time Vision: reading glasses. Skin: sternal incision bandaged and dry, IV RUE. Musculoskeletal: ROM: AROM of BUEs WFLs, and LE AROM WFLs. Strength: moves extremities against gravity. Sensation: intact to light touch in the LEs. Bed Mobility: Supine to Sit: not done. Sit to Supine: with max assist of 2, and 2 assist to reposition in bed. Left in bed with bed alarm on, arms and legs supported by pillows. Transfers: Sit to Stand: from recliner with min to mod assist of 2 and cues, from wheelchair with mod assist of one via hug type assist and cues. Stand to Sit: with min assist and cues to control descent, and cues for precautions. Bed to Chair: with min assist of 2 and cues. Gait: Few steps to pivot with min assist of one, and a 2nd assisting with line management. Balance: Sitting Static: steady sitting EOB for 5 minutes at least. Standing Static: with contact guard and cues. Standing Dynamic / Gait: With min assist and assist with lines. Education/Ther-ex: Pt. was given post op handouts and booklets and Patient was educated on post. opsternal precautions, use of the incentive spirometer (500 ml, fair technique with cues), the importance of deep breathing, and on the post. op cardiac ther-ex: Pt. performed a few reps of the following post. op ther-ex With cues: cervical ROM (flexion, extension, rotation), shoulder flexion, knee extension, and ankle pumps/circles. Assessment: Johnson Tobar was seen today for physical therapy evaluation. Patient presenting with fatigue, he was on 4L O2, he needed cues for safety and precautions, had some SOB with activity, had increased sternal discomfort with activity and needed 1-2 assist with cues for safety with mobility. Pt was active and independent at baseline. He desires to return home when medically stable. Expect good gains as he recovers post operatively. Will continue PT to safely progress patient's mobility and function while he remains in-house working toward a safe d/c plan. Discharge Recommendations: Based on the current findings, Anticipated Discharge Disposition: home with assist, home with home health when medically ready for hospital discharge. Consult Recommendations: No other consults recommended at this time. Equipment needs: TBD, possibly a rolling walker or cane. Goals: To be achieved by 06/23/20: 1. Pt will ambulate with modified independence 200 ft. with an assistive device to allow for a safed/c. 2. Pt will perform all post op cardiac surgery exercises adequately. 3. Pt will demonstrate independence with incentive spirometer and/or threshold PEP to promote lung function. 4. Pt will demonstrate understanding of sternal precautions to allow for a safe d/c. 5. Pt will be able to transfer sit <-> stand independently while maintaining sternal precautions to allow for a safe d/c. 6. Pt will be able to go supine <-> sit independently while maintaining sternal precautions to allow for a safe d/c. 7. Pt will be able to go up and down 5-12 stairs using a rail for balance only with supervision to prepare for a safe d/c. Plan: Therapy Frequency: 2-4 times/wk for therapy including balance training, bed mobility training, gait training, home exercise program, patient/family education, postural re-education, range of motion, stair training, strengthening, stretching, transfer training and d/c planning, functional mobil ity, and home management training and self care training. 2017 PT Evaluation Code Rationale: ?? Diagnosis & Pertinent Co-Morbidities, personal factors, and present illness affecting Plan of Care: (see above); Additional personal factors or co- morbidities that impact plan: ?? Total # of Factors: 0 1-2 3+ x ?? Examination of body system impairments, functional limitations and behaviors, and/or participation restrictions. Addressing 1-2 elements Addressing 3 + elements Addressing 4 + elements x ?? Clinical presentation: See assessment above. Stable/Uncomplicated Evolving/Fluctuating Symptoms Unstable/Unpredictable x ?? Clinical decision making of high complexity based on pt's functional performance as outlined in this evaluation. Time IN / OUT: 1630 to 1720 Total Evaluation Minutes, Physical Therapy: 50 BRENNA[facility] WATTS PT Pager: [phone] Physical Therapy Inpatient Rehabilitation Department * Initial Assessments - Makenzie Navarrete RN - 06/14/2020 9:27 AM EST Office of Care Management Initial Assessment Makenzie Navarrete RN reviewed record and discussed patient with Care Team. Source of Information: patient Introduced self/reviewed role; services accepted. Reason for Hospitalization: AVR, and CABG Last COVID test date and time: 06/10 Past Medical History: Diagnosis Date ??? Diabetes treated with oral medication ??? Gastroesophageal reflux controlled with medication ??? Heart valve disease ??? High blood pressure treated with medication ??? Myocardial infarction ??? Peptic ulcer disease >15 yrs ago ??? S/P AVR (aortic valve replacement) 06/13/2020 Hospitalizations Within the Past 30 Days: none Anticipated Length Of Stay (If known): Current Decision-Making Capacity: 4-5 days Advance Care Planning: Patient does not have advanced directives. Education provided and surrogacy reviewed. If AD's have not been completed pts -Emili would be surrogate decision maker per [place] surrogate decision making law. Any patient receiving care at [facility] must abide by [place] law. The hierarchy for surrogate decision making is: (a) Patient???s spouse, or civil union partner or common law spouse unless there is a divorce proceeding, separation agreement, or restraining order limiting that person???s relationship with the patient.spouse-Emili (b) Any adult son or daughter of the patient. (c) Either parent of the patient. (d) Any adult brother or sister of the patient. (e) Any adult grandchild of the patient. (f) Any grandparent of the patient. (g) Any adult aunt, uncle, niece, or nephew of the patient. (h) A close friend of the patient. (i) The agent with financial power of regulatory attorney or a conservator appointed in accordance with RSA 464-A. (j) The guardian of the patient???s estate. Current Coping/Education/Information Needs: Coping well with hospital stay and feels updated on issues and plan. Current Functional Ability: assist with ambulation d/t pain, deconditioning from recent surgery Functional Status Prior to Admission: indep with all needs, ambulation Home Environment: lives in 2 story home with his Emili. States that he is able to recover from surgery on the first floor of his home Social & Family Supports/Community Resources: states good support with spouse/family Behavioral Health History: Denies any history of mental illness, depression or anxiety Substance Use/Abuse:Does not smoke, drink alcohol, use non prescribed drugs or marijuana Other Pertinent/Service Specific Information: none noted Health/Prescription Coverage: Primary Insurance: [employer] MANAGED MEDICARE Secondary Insurance: N/A Prescription Coverage: yes Preferred Pharmacy: [facility] in [place] Other: nonenoted Primary Care Provider: Ramiro Ball MD [phone] Patient/Caregiver Goals of Treatment: dc to home Potential Needs for Transition of Care: Rehab/SNF: no Home Health: [facility] DME: no Dialysis: no Community Resources: home health Transportation: family/spouse Other: none I reviewed a list of Home Health Agencies/DME vendors with patient which serve the preferred geographic area. If patient chooses one of our affiliates, I will provide our affiliate letter. Education was provided about the right to choose where referrals are placed. Patient requests referral to: [facility] PHONE: [phone] FAX: [phone] Expected date of discharge: ?. Referral routed to the [employer] Technician for matching with agency/vendor and to provide any required information. Anticipated Barriers to Discharge/Special Considerations: no barriers to DC that are identified at this time Assessment: per MDs note:69-year-old male with known aortic stenosis.He has known atherosclerotic coronary disease having undergone PCI with stent placement of an LAD lesion in the past. ??He has treated hypertension, he is a kga-nuniuvr-ikkjfbxbm diabetic. ??He has known dyslipidemia. ??He has had no known previous CVA or TIA. ??He has no known hepatic dysfunction he does have mild renal insufficiency with a baseline creatinine of about 1.3. ??He was not a user of tobacco. ??He is undergone prior appendectomy. ??He does have a family history of atherosclerotic disease in that his father following an [place] at 48 years of age. 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 ??His cardiac cath shows severe CAD and pt had AVR with CABG x2. Pt states that he lives in own home , 2 floors, with his , Emili. States that she is available to assist him with any needs that he may have at discharge, as well as provide transportation to home. Pt is Prior to this hospitalization, indep with all needs, indep with ambulation, and has supportsin place to access the necessary care and or follow up after discharge. ??Plan: anticipate to DC to home with [facility] A member of the Care Management team will continue to monitor progress, follow for continuity of care and assist with transition of care planning. Makenzie Navarrete RN Pager:[phone] Ext :[phone] * Brief Op Note - Chun Stanton MD - 06/13/2020 1:26 PM EST Brief Operative Note Patient Name: Johnson Tobar : [id number] MR#: [id number] Case Date: 06/13/2020 Surgeon: Surgeon(s) and Role: * Chun Stanton MD - Primary * Kris Mayen PA - Physician Reverberatory Skimmer Preoperative diagnosis: , CAD Postoperative diagnosis: , CAD, Severely calcified and diffusely diseased small coronaries, smallvein. Severe calcification of a tri leaflet valve with calcium extending into myocardium and root, 2/3 systemic PA pressures Post bypass EF 55%, Severe LVH. Mild MS/MR, nl bioprosthetic aortic valve function Procedure(s) (LRB): @REPLACE AORTIC VALVE, OPEN, W\CPB, W\PROSTHETIC VALVE (WRVU 41.32) (N/A) @CABG, USING ARTERIAL GRAFT;SINGLE ARTERIAL GRAFT (WRVU 33.75) (Left) @CABG, TWO VENOUS GRAFTS & ARTERIAL GRAFT (WRVU 7.93) (N/A) ENDOSCOPIC HARVEST VEIN(S) FOR CABG (WRVU 0.31) (Right) AVR 23 mm Inspriris bioprosthesis CABG/ x 3 MCKEON->LAD Seq SVG->OM1->D1 Anesthesia: General/Melissa Findings: , CAD, Severely calcified and diffusely diseased small coronaries, small vein. Severe calcification of a tri leaflet valve with calcium extending into myocardium and root, 2/3 systemic PApressures Post bypass EF 55%, Severe LVH. Mild MS/MR, nl bioprosthetic aortic valve function Estimated Blood Loss: 500 mL -> Cell Saver Specimens removed during surgery: Aortic Valve Fluids: Intraprocedure Crystalloid Total Intake Lactated Ringers 700.00 mL Sodium Chloride 0.9% 900.00 mL Cell Saver Volume 484 mL Platelets Volume 227 mL Total Intake 2311 mL Output Urine Output 385 mL Blood Loss 500 mL Total Output 885 mL Net Net Volume 1426 mL PRBCs: none (See Anesthesia Record/Report for Other Blood Products) Urine Output: 385 mL Drains: Mediastinal and Plural Disposition: CVCC Condition: doing well without problems Attestation: Case Date: 06/13/2020 I was present and I participated during the entire procedure (does not need to include opening and closing). CHUN STANTON MD 06/13/2020 documented in this encounter Plan of Treatment Upcoming Encounters Date Type Department Care Team (Late st Contact Info) Description 08/27/2024 2:30 PM EST [place] [address] Susanna Cm APRN [facility] [place] [address] Scheduled Referrals Name Type Priority Associated Diagnoses Orde r Schedule Referral to Cardiac Rehab Outpatient Referral Routine S/P CABG (coronary artery bypass graft) S/P AVR (aortic valve replacement) Ordered: 06/18/2020 documented as of this encounter Procedures Procedure Name Priority Date/Time Associated Diagnosis Comments POCT GLUCOSE Routine 06/19/2020 7:43 AM EST POCT GLUCOSE Routine 06/19/2020 4:43 AM EST HC POTASSIUM Routine 06/19/2020 3:40 AM EST POCT GLUCOSE Routine 06/18/2020 11:28 PM EST POCT GLUCOSE Routine 06/18/2020 8:22 PM EST POCT GLUCOSE Routine 06/18/2020 3:14 PM EST POCT GLUCOSE Routine 06/18/2020 11:58 AM EST POCT GLUCOSE Routine 06/18/2020 11:50 AM EST POCT GLUCOSE Routine 06/18/2020 7:51 AM EST HC POTASSIUM Routine 06/18/2020 5:28 AM EST POCT GLUCOSE Routine 06/18/2020 5:02 AM EST POCT GLUCOSE Routine 06/18/2020 4:03 AM EST POCT GLUCOSE Routine 06/17/2020 11:15 PM EST POCT GLUCOSE Routine 06/17/2020 8:38 PM EST POCT GLUCOSE Routine 06/17/2020 4:27 PM EST POCT GLUCOSE Routine 06/17/2020 2:08 PM EST POCT GLUCOSE Routine 06/17/2020 11:27 AM EST POCT GLUCOSE Routine 06/17/2020 7:46 AM EST POCT GLUCOSE Routine 06/17/2020 4:41 AM EST HC POTASSIUM Routine 06/17/2020 4:36 AM EST POCT GLUCOSE Routine 06/16/2020 11:33 PM EST POCT GLUCOSE Routine 06/16/2020 7:59 PM EST POCT GLUCOSE Routine 06/16/2020 4:07 PM EST POCT GLUCOSE Routine 06/16/2020 11:51 AM EST POCT GLUCOSE Routine 06/16/2020 9:33 AM EST XR CHEST PA AND LATERAL Routine 06/16/20 9:10 AM EST POCT GLUCOSE Routine 06/16/2020 8:24 AM EST POCT GLUCOSE Routine 06/16/2020 6:32 AM EST POCT GLUCOSE Routine 06/16/2020 5:36 AM EST HEMOGRAM Routine 06/16/2020 4:54 AM EST DIFFERENTIAL, AUTOMATED Routine 06/16/20 4:54 AM EST HC CBC,PLT & AUTO DIFF Routine 0 4:54 AM EST BASIC METABOLIC PANEL Routine 06/16/2020 4:54 AM EST POCT GLUCOSE Routine 06/16/2020 4:38 AM EST POCT GLUCOSE Routine 06/16/2020 3:31 AM EST POCT GLUCOSE Routine 06/16/2020 2:42 AM EST POCT GLUCOSE Routine 06/16/2020 1:28 AM EST POCT GLUCOSE Routine 06/15/2020 11:41 PM EST POCT GLUCOSE Routine 06/15/2020 10:28 PM EST POCT GLUCOSE Routine 06/15/2020 9:34 PM EST POCT GLUCOSE Routine 06/15/2020 8:44 PM EST POCT GLUCOSE Routine 06/15/2020 7:17 PM EST POCT GLUCOSE Routine 06/15/2020 6:22 PM EST POCT GLUCOSE Routine 06/15/2020 5:05 PM EST POCT GLUCOSE Routine 06/15/2020 3:48 PM EST POCT GLUCOSE Routine 06/15/2020 2:00 PM EST POCT GLUCOSE Routine 06/15/2020 1:02 PM EST POCT GLUCOSE Routine 06/15/2020 11:51 AM EST POCT GLUCOSE Routine 06/15/2020 10:45 AM EST POCT GLUCOSE Routine 06/15/2020 9:44 AM EST POCT GLUCOSE Routine 06/15/2020 8:49 AM EST POCT GLUCOSE Routine 06/15/2020 7:35 AM EST POCT GLUCOSE Routine 06/15/2020 6:31 AM EST HC POTASSIUM Routine 06/15/2020 5:37 AM EST POCT GLUCOSE Routine 06/15/2020 5:36 AM EST POCT GLUCOSE Routine 06/15/2020 4:38 AM EST POCT GLUCOSE Routine 06/15/2020 3:36 AM EST POCT GLUCOSE Routine 06/15/2020 2:26 AM EST POCT GLUCOSE Routine 06/15/2020 1:29 AM EST POCT GLUCOSE Routine 06/15/2020 12:24 AM EST POCT GLUCOSE Routine 06/14/2020 11:04 PM EST POCT GLUCOSE Routine 06/14/2020 10:29 PM EST POCT GLUCOSE Routine 06/14/2020 9:03 PM EST POCT GLUCOSE Routine 06/14/2020 8:06 PM EST POCT GLUCOSE Routine 06/14/2020 7:02 PM EST POCT GLUCOSE Routine 06/14/2020 5:24 PM EST POCT GLUCOSE Routine 06/14/2020 4:21 PM EST POCT GLUCOSE Routine 06/14/2020 3:12 PM EST POCT GLUCOSE Routine 06/14/2020 2:07 PM EST POCT GLUCOSE Routine 06/14/2020 1:04 PM EST POCT GLUCOSE Routine 06/14/2020 11:56 AM EST POCT GLUCOSE Routine 06/14/2020 10:04 AM EST POCT GLUCOSE Routine 06/14/2020 9:32 AM EST POCT GLUCOSE Routine 06/14/2020 8:36 AM EST POCT GLUCOSE Routine 06/14/2020 6:00 AM EST SCAN, PERIPHERAL BLOOD Routine 0 5:13 AM EST HEMOGRAM Routine 06/14/2020 5:13 AM EST DIFFERENTIAL, AUTOMATED Routine 06/14/20 20 5:13 AM EST HC CBC,PLT & AUTO DIFF Routine 0 5:13 AM EST HC TROPONIN T Routine 06/14/2020 5:13 AM EST HEMOGLOBIN A1C Routine 06/14/2020 5:13 AM EST BASIC METABOLIC PANEL Routine 06/14/2020 5:13 AM EST POCT GLUCOSE Routine 06/14/2020 2:36 AM EST POCT GLUCOSE Routine 06/13/2020 10:38 PM EST POCT GLUCOSE Routine 06/13/2020 8:41 PM EST POCT GLUCOSE Routine 06/13/2020 7:04 PM EST POCT GLUCOSE Routine 06/13/2020 6:17 PM EST POCT GLUCOSE Routine 06/13/2020 5:42 PM EST HC HEMOGLOBIN, BLOOD Routine 06/13/2020 5:38 PM EST HC POTASSIUM Routine 06/13/2020 5:38 PM EST POCT GLUCOSE Routine 06/13/2020 4:39 PM EST BLOOD GAS ARTERIAL POC Routine 0 4:22 PM EST POCT GLUCOSE Routine 06/13/2020 3:32 PM EST XR CHEST ONE VIEW STAT 06/13/2020 2:4 8 PM EST EKG 12-LEAD STAT 06/13/2020 2:20 PM EST S/P CABG (coronary artery bypass graft) S/P AVR (aortic valve replacement) BLOOD GAS ARTERIAL POC Routine 0 2:19 PM EST BLOOD GAS ARTERIAL POC Routine 0 12:46 PM EST SCAN, PERIPHERAL BLOOD STAT 0 12:40 PM EST HC HEMOGRAM STAT 06/13/2020 12:40 PM EST HC PARTIAL THROMBOPLASTIN TIME STAT 06/13/2020 12:40 PM EST HC PROTHROMBIN TIME STAT 06/13/2020 1 2:40 PM EST HC FIBRINOGEN TITER STAT 06/13/2020 1 2:40 PM EST BLOOD GAS ARTERIAL POC Routine 0 12:13 PM EST PREPARE PLATELETS, APHERESIS STAT 06/13/2020 12:10 PM EST HC HEMOGLOBIN, BLOOD STAT 06/13/2020 11:50 AM EST HC FIBRINOGEN TITER STAT 06/13/2020 1 1:50 AM EST HC PLATELET COUNT STAT 06/13/2020 11: 50 AM EST BLOOD GAS ARTERIAL POC Routine 0 11:44 AM EST BLOOD GAS ARTERIAL POC Routine 0 11:08 AM EST BLOOD GAS ARTERIAL POC Routine 0 10:25 AM EST SPECIMEN TO PATHOLOGY Routine 06/13/2020 10:24 AM EST SURGICAL PATHOLOGY REPORT Routine 06/13/2020 10:23 AM EST BLOOD GAS VENOUS POC Routine 06/13/2020 9:54 AM EST BLOOD GAS ARTERIAL POC Routine 0 9:51 AM EST BLOOD GAS ARTERIAL POC Routine 0 8:19 AM EST Endoscopy W/Video-Asst Vein [place], Cabg ([id number]) 06/13/2020 7:26 AM EST , CAD Cabg, Artery-Vein, Two ([id number]) 06/13/2020 7:26 AM EST , CAD Cabg, Arterial, Single ([id number]) 06/13/2020 7:26 AM EST , CAD Replacement Prosthetic Aortic Valve Open W Cardiopulmonary Bypass Homogrf/Stent ([id number]) 06/13/2020 7:26 AM EST , CAD PREPARE RBC STAT 06/13/2020 6:40 AM EST POCT GLUCOSE Routine 06/13/2020 6:16 AM EST IMPLANTABLE DEVICES SCAN 06/13/2020 12:00 AM EST documented in this encounter Results * EKG 12 Lead (07/21/2020 12:50 PM EST) Ventricular rate 69 BPM MUSE SYSTEM Atrial Rate 69 BPM MUSE SYSTEM P-R Interval 128 ms MUSE SYSTEM QRS Duration 90 ms MUSE SYSTEM Q-T Interval 404 ms MUSE SYSTEM QTC Calculated (Bezet) 432 ms MUSE SYSTEM Calculated P [place] 20 degrees MUSE SYSTEM Calculated R [place] -17 degrees MUSE SYSTEM Calculated T [place] -34 degrees MUSE SYSTEM INTERPRETATION Normal sinus rhythm Possible Left atrial enlargement Left ventricular hypertrophy Inferior infarct (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-2020) T wave abnormality, consider lateral ischemia Abnormal ECG When compared with ECG of 13-JUN-2020 14:20, ST no longer elevated in Anterior leads T wave inversion now evident in Anterolateral leads Confirmed by MD Mclain Daniel ([id number]) on 07/21/2020 6:32:41 PM MUSE SYSTEM 07/21/2020 12:5 0 PM EST 07/21/2020 6:32 PM EST Chun Stanton MD ECG ORDERABLES MUSE SYSTEM * XR Chest PA & Lateral (Generic) [...] report, please contact the number below. Chun Stanton MD IMG DX ORDERABLES * ECHO COMPLETE (07/21/2020 11:20 AM EST) EF 53 HEARTLAB SYSTEM Anatomical Region Laterality Modality Other 07/21/2020 Narrative 07/21/2020 12:14 PM EST Procedure: ?Transthoracic Echocardiogram Patient: ?EKATERINA JOHNSON R ? (Age): 1950(69y) Med Rec#: ? [id number] ?Sex: ?M ? Site Loc: ? [facility] ?Ht / Wt: ??170(cm)/84(kg) Pt. Loc: ?Echo Lab ?BSA: ?1.96 Study Date: ?? 07/21/2020 ?Pt. Type: Outpatient Tape: ? Referring: BARRON Reading: John Andrade ([id number]) Edging Machine Operator: Meaghan Cosby RDCS, ISA Diagnosis: *Presence of [...] Vmax ?1.11 ? m/sec ? MV deceleration [id number] ?msec ? MV A-wave Vmax ?1.57 ? [...] ? Mid-Inferior ?Normal ? Mid-Inferoseptal ?Normal ? Henderson-Septal ? Normal ? Henderson-Anterior ? Normal ? Henderson-Lateral ?Normal ? Henderson-Inferior ? Normal ? Henderson-Tip ?Normal ? This report has been electronically signed by: John Andrade MD ? 07/21/2020 12:13:35 Images reviewed and interpretation verified [facility] Cardiac Ultrasound Laboratory Procedure Note John Andrade MD - 07/21/2020 Procedure: Transthoracic Echocardiogram Patient: EKATERINA López (Age): 1950(69y) Med Rec#: [id number] Sex: M Site Loc: [facility] Ht / Wt: 170(cm)/84(kg) Pt. Loc: Echo Lab BSA: 1.96 Study Date: 07/21/2020 Pt. Type: Outpatient Tape: Referring: [email or web address] Reading: John Andrade ([id number]) Edging Machine Operator: Meaghan Cosby RD, [facility] Diagnosis: *Presence of other heart-valve replacement (Z95.4) [...] MV E-wave Vmax 1.11 m/sec MV deceleration [id number] msec MV A-wave Vmax 1.57 m/sec MV [...] Normal Mid-Posterolateral Normal Mid-Inferior Normal Mid-Inferoseptal Normal Henderson-Septal Normal Henderson-Anterior Normal Henderson-Lateral Normal Henderson-Inferior Normal Henderson-Tip Normal This report has been electronically signed by: John Andrade MD 07/21/2020 12:13:35 Images reviewed and interpretation verified [facility] Cardiac Ultrasound Laboratory Chun Stanton MD ECHO ORDERABLES * POCT Glucose (06/19/2020 7:43 AM EST) Glucose, POC 155 65 - 199 mg/dL [facility] Comment: Supplemental ranges: <140 mg/dL before meals <180 mg/dL all other times of the day Blood specimen (specimen) 06/19/2020 7:43 AM EST 06/19/2020 7:43 AM EST Chun Stanton MD POINT OF CARE TEST ORDERABLES [facility] [place] [address] * POCT Glucose (06/19/2020 4:43 AM EST) Glucose, POC 147 65 - 199 mg/dL [facility] Comment: Supplemental ranges: <140 mg/dL before meals <180 mg/dL all other times of the day Blood specimen (specimen) 06/19/2020 4:43 AM EST 06/19/2020 4:43 AM EST Chun Stanton MD POINT OF CARE TEST ORDERABLES Performing Organization Address [facility] de Phone Number [facility] [place] [address] * Potassium (06/19/2020 3:40 AM EST) Potassium 3.9 3.5 - 5.0 mmol/L [facility] Comment: Please note: ??Patients with WBC >100,000 may have falsely elevated Potassium levels. ??For accurate Potassium quantification in these patients send serum separator tube (gold top) for subsequent determinations. ??Contact the Clinical Chemistry Laboratory if there are any questions. Blood specimen (specimen) 06/19/2020 3:40 AM EST 06/19/2020 3:54 AM EST Narrative Resulting Agency Comment Spec In Lab Chun Stanton MD CHEMISTRY ORDERABLE S Performing Organization Address [facility] Phone Number [facility] [place] [address] * POCT Glucose (06/18/2020 11:28 PM EST) Glucose, POC 167 65 - 199 mg/dL [facility] Comment: Supplemental ranges: <140 mg/dL before meals <180 mg/dL all other times of the day Blood specimen (specimen) 06/18/2020 11:28 PM EST 06/18/2020 11:28 PM EST Chun Stanton MD POINT OF CARE TEST ORDERABLES Performing Organization Address [facility] Co de Phone Number [facility] [place] [address] * POCT Glucose (06/18/2020 8:22 PM EST) Glucose, POC 181 65 - 199 mg/dL [facility] Comment: Supplemental ranges: <140 mg/dL before meals <180 mg/dL all other times of the day Blood specimen (specimen) 06/18/2020 8:22 PM EST 06/18/2020 8:22 PM EST Chun Stanton MD POINT OF CARE TEST ORDERABLES Performing Organization Address City/[facility] Co de Phone Number [facility] [place] [address] * POCT Glucose (06/18/2020 3:14 PM EST) Glucose, POC 145 65 - 199 mg/dL [facility] Comment: Supplemental ranges: <140 mg/dL before meals <180 mg/dL all other times of the day Blood specimen (specimen) 06/18/2020 3:14 PM EST 06/18/2020 3:14 PM EST Chun Stanton MD POINT OF CARE TEST ORDERABLES Performing Organization Address [facility] de Phone Number [facility] [place] [address] * (ABNORMAL) POCT Glucose (06/18/2020 11:58 AM EST) Glucose, POC 220(H) 65 - 199 mg/dL [facility] Comment: Supplemental ranges: <140 mg/dL before meals <180 mg/dL all other times of the day Blood specimen (specimen) 06/18/2020 11:58 AM EST 06/18/2020 11:58 AM EST Chun Stanton MD POINT OF CARE TEST ORDERABLES Performing Organization Address City/[facility] de Phone Number [facility] [place] [address] * (ABNORMAL) POCT Glucose (06/18/2020 11:50 AM EST) Glucose, POC 245(H) 65 - 199 mg/dL [facility] Comment: Supplemental ranges: <140 mg/dL before meals <180 mg/dL all other times of the day Blood specimen (specimen) 06/18/2020 11:50 AM EST 06/18/2020 11:50 AM EST Chun Stanton MD POINT OF CARE TEST ORDERABLES Performing Organization Address [facility] Co de Phone Number [facility] [place] [address] * POCT Glucose (06/18/2020 7:51 AM EST) Glucose, POC 185 65 - 199 mg/dL [facility] Comment: Supplemental ranges: <140 mg/dL before meals <180 mg/dL all other times of the day Blood specimen (specimen) 06/18/2020 7:51 AM EST 06/18/2020 7:51 AM EST Chun Stanton MD POINT OF CARE TEST ORDERABLES Performing Organization Address [facility] de Phone Number [facility] [place] [address] * Potassium (06/18/2020 5:28 AM EST) [facility] Signature Potassium 3.7 3.5 - 5.0 mmol/L [facility] Comment: Please note: ??Patients with WBC >100,000 may have falsely elevated Potassium levels. ??For accurate Potassium quantification in these patients send serum separator tube (gold top) for subsequent determinations. ??Contact the Clinical Chemistry Laboratory if there are any questions. Blood specimen (specimen) 06/18/2020 5:28 AM EST 06/18/2020 5:55 AM EST Narrative Resulting Agency Comment Spec In Lab Chun Stanton MD CHEMISTRY ORDERABLE S Performing Organization Address [facility] Co de Phone Number [facility] [place] [address] * POCT Glucose (06/18/2020 5:02 AM EST) Glucose, POC 176 65 - 199 mg/dL [facility] Comment: Supplemental ranges: <140 mg/dL before meals <180 mg/dL all other times of the day Blood specimen (specimen) 06/18/2020 5:02 AM EST 06/18/2020 5:02 AM EST Chun Stanton MD POINT OF CARE TEST ORDERABLES Performing Organization Address [facility] Co de Phone Number [facility] [place] [address] * POCT Glucose (06/18/2020 4:03 AM EST) Glucose, POC 157 65 - 199 mg/dL [facility] Comment: Supplemental ranges: <140 mg/dL before meals <180 mg/dL all other times of the day Blood specimen (specimen) 06/18/2020 4:03 AM EST 06/18/2020 4:03 AM EST Chun Stanton MD POINT OF CARE TEST ORDERABLES Performing Organization Address [facility] Co de Phone Number [facility] [place] [address] * (ABNORMAL) POCT Glucose (06/17/2020 11:15 PM EST) Glucose, POC 209(H) 65 - 199 mg/dL [facility] Comment: Supplemental ranges: <140 mg/dL before meals <180 mg/dL all other times of the day Blood specimen (specimen) 06/17/2020 11:15 PM EST 06/17/2020 11:15 PM EST Chun Stanton MD POINT OF CARE TEST ORDERABLES Performing Organization Address City/[facility] Co de Phone Number [facility] [place] [address] * POCT Glucose (06/17/2020 8:38 PM EST) Glucose, POC 182 65 - 199 mg/dL [facility] Comment: Supplemental ranges: <140 mg/dL before meals <180 mg/dL all other times of the day Blood specimen (specimen) 06/17/2020 8:38 PM EST 06/17/2020 8:38 PM EST Chun Stanton MD POINT OF CARE TEST ORDERABLES Performing Organization Address [facility] de Phone Number [facility] [place] [address] * POCT Glucose (06/17/2020 4:27 PM EST) Glucose, POC 147 65 - 199 mg/dL [facility] Comment: Supplemental ranges: <140 mg/dL before meals <180 mg/dL all other times of the day Blood specimen (specimen) 06/17/2020 4:27 PM EST 06/17/2020 4:27 PM EST Chun Stanton MD POINT OF CARE TEST ORDERABLES Performing Organization Address [facility] de Phone Number [facility] [place] [address] * POCT Glucose (06/17/2020 2:08 PM EST) Glucose, POC 162 65 - 199 mg/dL [facility] Comment: Supplemental ranges: <140 mg/dL before meals <180 mg/dL all other times of the day Blood specimen (specimen) 06/17/2020 2:08 PM EST 06/17/2020 2:08 PM EST Chun Stanton MD POINT OF CARE TEST ORDERABLES Performing Organization Address [facility] [place] de Phone Number [facility] [place] [address] * (ABNORMAL) POCT Glucose (06/17/2020 11:27 AM EST) Glucose, POC 315(H) 65 - 199 mg/dL [facility] Comment: Supplemental ranges: <140 mg/dL before meals <180 mg/dL all other times of the day Blood specimen (specimen) 06/17/2020 11:27 AM EST 06/17/2020 11:27 AM EST Chun Stanton MD POINT OF CARE TEST ORDERABLES Performing Organization Address [facility] Co de Phone Number [facility] [place] [address] * POCT Glucose (06/17/2020 7:46 AM EST) Glucose, POC 169 65 - 199 mg/dL [facility] Comment: Supplemental ranges: <140 mg/dL before meals <180 mg/dL all other times of the day Blood specimen (specimen) 06/17/2020 7:46 AM EST 06/17/2020 7:46 AM EST Chun Stanton MD POINT OF CARE TEST ORDERABLES Performing Organization Address [facility] de Phone Number [facility] [place] [address] * POCT Glucose (06/17/2020 4:41 AM EST) Glucose, POC 172 65 - 199 mg/dL [facility] Comment: Supplemental ranges: <140 mg/dL before meals <180 mg/dL all other times of the day Blood specimen (specimen) 06/17/2020 4:41 AM EST 06/17/2020 4:41 AM EST Chun Stanton MD POINT OF CARE TEST ORDERABLES Performing Organization Address City/[facility] Co de Phone Number [facility] [place] [address] * Potassium (06/17/2020 4:36 AM EST) Potassium 3.9 3.5 - 5.0 mmol/L [facility] Comment: Please note: ??Patients with WBC >100,000 may have falsely elevated Potassium levels. ??For accurate Potassium quantification in these patients send serum separator tube (gold top) for subsequent determinations. ??Contact the Clinical Chemistry Laboratory if there are any questions. Blood specimen (specimen) 06/17/2020 4:36 AM EST 06/17/2020 5:11 AM EST Narrative Resulting Agency Comment Spec In Lab Chun Stanton MD CHEMISTRY ORDERABLE S Performing Organization Address [facility] de Phone Number [facility] [place] [address] * POCT Glucose (06/16/2020 11:33 PM EST) Glucose, POC 157 65 - 199 mg/dL [facility] Comment: Supplemental ranges: <140 mg/dL before meals <180 mg/dL all other times of the day Blood specimen (specimen) 06/16/2020 11:33 PM EST 06/16/2020 11:33 PM EST Chun Stanton MD POINT OF CARE TEST ORDERABLES Performing Organization Address [facility] Phone Number [facility] [place] [address] * POCT Glucose (06/16/2020 7:59 PM EST) Glucose, POC 198 65 - 199 mg/dL [facility] Comment: Supplemental ranges: <140 mg/dL before meals <180 mg/dL all other times of the day Blood specimen (specimen) 06/16/2020 7:59 PM EST 06/16/2020 7:59 PM EST Chun Stanton MD POINT OF CARE TEST ORDERABLES Performing Organization Address [facility] [place] de Phone Number [facility] [place] [address] * (ABNORMAL) POCT Glucose (06/16/2020 4:07 PM EST) Glucose, POC 211(H) 65 - 199 mg/dL [facility] Comment: Supplemental ranges: <140 mg/dL before meals <180 mg/dL all other times of the day Blood specimen (specimen) 06/16/2020 4:07 PM EST 06/16/2020 4:07 PM EST Chun Stanton MD POINT OF CARE TEST ORDERABLES Performing Organization Address [facility] [place] de Phone Number [facility] [place] [address] * (ABNORMAL) POCT Glucose (06/16/2020 11:51 AM EST) Glucose, POC 224(H) 65 - 199 mg/dL [facility] Comment: Supplemental ranges: <140 mg/dL before meals <180 mg/dL all other times of the day Blood specimen (specimen) 06/16/2020 11:51 AM EST 06/16/2020 11:51 AM EST Chun Stanton MD POINT OF CARE TEST ORDERABLES Performing Organization Address [facility] [place] de Phone Number [facility] [place] [address] * (ABNORMAL) POCT Glucose (06/16/2020 9:33 AM EST) Glucose, POC 252(H) 65 - 199 mg/dL [facility] Comment: Supplemental ranges: <140 mg/dL before meals <180 mg/dL all other times of the day Blood specimen (specimen) 06/16/2020 9:33 AM EST 06/16/2020 9:33 AM EST Chun Stanton MD POINT OF CARE TEST ORDERABLES Performing Organization Address [facility] [place] de Phone Number [facility] [place] [address] * XR Chest PA & Lateral (Generic) (06/16/2020 9:10 AM EST) Anatomical Region Laterality Modality Chest N/A Digital Radiogra phy Impressions 06/16/2020 10:45 AM EST Slightly increased small to moderate left effusion with mild basilar atelectasis. Small effusion on the right. I have personally reviewed the image(s) and the resident's interpretation and agree with the findings, Jessi Isidro MD at 06/16/2020 10:45 AM Thank you for letting us participate in the care of this patient. For questions regarding this report, please contact the number below. ? Electronically signed by: Jessi Isidro MD, [facility] ([phone]), at 06/16/2020 10:45 AM Narrative 06/16/2020 10:45 AM EST EXAMINATION: XR CHEST PA AND LATERAL (GENERIC) CLINICAL HISTORY: sp cabg avr TECHNIQUE: PA and lateral views of the chest COMPARISON: 06/13/2020 FINDINGS: Stable positioning of aortic valve prosthesis. Sternal cables are intact. Epicardial ??wires are still in place. Increased aeration of the right lung with stable appearance of medial basilar atelectasis. Slightly increased left effusion and atelectasis. No pneumothorax. The cardiomediastinal silhouette, shelly and pulmonary vasculature are unchanged. No interval osseous process. Procedure Note Jessi Vitale MD - 06/16/2020 EXAMINATION: XR CHEST PA AND LATERAL (GENERIC) CLINICAL HISTORY: sp cabg avr TECHNIQUE: PA and lateral views of the chest COMPARISON: 06/13/2020 FINDINGS: Stable positioning of aortic valve prosthesis. Sternal cables areintact. Epicardial wires are still in place. Increased aeration of the right lung with stable appearance of medialbasilar atelectasis. Slightly increased left effusion and atelectasis. Nopneumothorax. The cardiomediastinal silhouette, shelly and pulmonary vasculature areunchanged. No interval osseous process. IMPRESSION Slightly increased small to moderate left effusion with mild basilar atelectasis. Small effusion on the right. I have personally reviewed the image(s) and the resident's interpretationand agree with the findings, Jessi Isidro MD at 06/16/2020 10:45AM Thank you for letting us participate in the care of this patient. Forquestions regarding this report, please contact the number below. Electronically signed by: Jessi Isidro MD, [facility] ([phone]), at 06/16/2020 10:45 AM Chun Stanton MD IMG DX ORDERABLES * POCT Glucose (06/16/2020 8:24 AM EST) Glucose, POC 193 65 - 199 mg/dL [facility] Comment: Supplemental ranges: <140 mg/dL before meals <180 mg/dL all other times of the day Blood specimen (specimen) 06/16/2020 8:24 AM EST 06/16/2020 8:24 AM EST Chun Stanton MD POINT OF CARE TEST ORDERABLES [facility] [place] [address] * POCT Glucose (06/16/2020 6:32 AM EST) Glucose, POC 169 65 - 199 mg/dL [facility] Comment: Supplemental ranges: <140 mg/dL before meals <180 mg/dL all other times of the day Blood specimen (specimen) 06/16/2020 6:32 AM EST 06/16/2020 6:32 AM EST Chun Stanton MD POINT OF CARE TEST ORDERABLES [facility] [place] [address] * POCT Glucose (06/16/2020 5:36 AM EST) Glucose, POC 175 65 - 199 mg/dL [facility] Comment: Supplemental ranges: <140 mg/dL before meals <180 mg/dL all other times of the day Blood specimen (specimen) 06/16/2020 5:36 AM EST 06/16/2020 5:36 AM EST Chun Stanton MD POINT OF CARE TEST ORDERABLES [facility] [place] [address] * (ABNORMAL) Differential, Automated (06/16/2020 4:54 AM EST) Neutrophil % 76.4 % [facility] Neutrophil Absolute 9.41(H) 1.70 - 6.10 x10(3)/ L [facility] Lymph % 12.4 % [facility] Lymphocytes Abs 1.5 0.9 - 3.2 x10(3)/ L [facility] Monocyte % 9.8 % [facility] Monocyte Abs 1.2(H) 0.3 - 0.9 x10(3)/ L [facility] Eos % 0.6 % [facility] Eosinophils Abs 0.1 0.0 - 0.4 x10(3)/[facility] Basophil % 0.3 % [facility] Baso Absolute 0.0 0.0 - 0.1 x10(3)/ L [facility] Immature Gran % 0.50 % [facility] Comment: Immature granulocytes(IG's)percentage and absolute count will include metamyelocytes, myelocytes, and promyelocytes. Blood smears from CBCs yielding IG's will be scanned manually for concordance. If this scan disagrees with the automated IG or if promyelocytes are noted, a manual differential will be performed. Immature Gran Absolute 0.06(H) 0.00 - 0.04 x10(3)/ L [facility] Blood specimen (specimen) 06/16/2020 4:54 AM EST 06/16/2020 5:33 AM EST Narrative Resulting Agency Comment Spec In Lab Kris KISER HEMATOLOGY ORDERABLE S Performing Organization Address City/[facility]/ZIP Co de Phone Number [facility] [place] [address] * (ABNORMAL) Hemogram (06/16/2020 4:54 AM EST) White Blood Cell 12.3(H) 4.0 - 9.5 x10(3)/mc L [facility] Red Blood Cell 3.15(L) 4.58 - 5.54 x10(6)/mc L [facility] Hemoglobin 9.0(L) 13.7 - 16.5 gm/dL [facility] Hematocrit 27.6(L) 40.5 - 48.5 % [facility] Mean Cell Volume 87.6 82.9 - 93.1 fL [facility] Mean Cell Hemoglobin 28.6 27.5 - 32.1 pg [facility] Mean Cell Hemoglobin Concentration 32.6 32.0 - 35.7 gm/dL [facility] Platelet 112(L) 145 - 357 x10(3)/mc L [facility] RDW Standard Deviation 45.2(H) 36.0 - 45.0 fL [facility] RDW coefficient of variation 14.3(H) 11.4 - 13.8 % [facility] Mean Platelet Volume 12.3 7.6 - 12.9 fL [facility] NRBC% auto 0.0 % [facility] NRBC Absolute 0.000 0.000 - 0.000 x10(3)/mc L [facility] Blood specimen (specimen) 06/16/2020 4:54 AM EST 06/16/2020 5:33 AM EST Narrative Resulting Agency Comment Spec In Lab Kris KISER HEMATOLOGY ORDERABLE S [facility] [place] [address] * (ABNORMAL) Basic Metabolic Panel (non-fasting) (06/16/2020 4:54 AM EST) Glucose 163 65 - 199 mg/dL [facility] Comment:Diabetes: >=200 mg/d L plus symptoms Blood Urea Nitrogen 19 10 - 20 mg/dL [facility] Creatinine 1.06 0.80 - 1.50 mg/dL [facility] Sodium 133(L) 135 - 145 mmol/L [facility] Potassium 4.6 3.5 - 5.0 mmol/L [facility] Comment: Please note: ??Patients with WBC >100,000 may have falsely elevated Potassium levels. ??For accurate Potassium quantification in these patients send serum separator tube (gold top) for subsequent determinations. ??Contact the Clinical Chemistry Laboratory if there are any questions. Chloride 101 98 - 107 mmol/L [facility] Carbon Dioxide 24 22 - 31 mmol/L [facility] Anion Gap 8 5 - 15 mmol/L [facility] Calcium 8.5 8.5 - 10.5 mg/dL [facility] Est Glomerular Filtration Rate 71 >=60 mL/min/1. 73 m?? [facility] Comment: This patient? s estimated glomerular filtration rate (eGFR) is between 71 mL/min/1.73 m2 (patients with less muscle mass per kg body weight) and 82 mL/min/1.73 m2 (patients with more muscle mass per kg body weight) as determined by the CKD-EPI equation. Assessment of eGFR is not appropriate when creatinine concentrations are rapidly changing. For clinical decisions where creatinine clearance will affect therapy, a 24-hour urine creatinine clearance may be advised. Assignment of CKD stage 1 ? 5 for patients with an eGFR near the transition point between stages may be based on clinical assessment of muscle mass and symptoms in addition to eGFR. Blood specimen (specimen) 06/16/2020 4:54 AM EST 06/16/2020 5:33 AM EST Narrative Resulting Agency Comment Spec In Lab Chun Stanton MD CHEMISTRY ORDERABLE S [facility] [place] [address] * POCT Glucose (06/16/2020 4:38 AM EST) Glucose, POC 154 65 - 199 mg/dL [facility] Comment: Supplemental ranges: <140 mg/dL before meals <180 mg/dL all other times of the day Blood specimen (specimen) 06/16/2020 4:38 AM EST 06/16/2020 4:38 AM EST Chun Stanton MD POINT OF CARE TEST ORDERABLES [facility] [place] [address] * POCT Glucose (06/16/2020 3:31 AM EST) Glucose, POC 178 65 - 199 mg/dL [facility] Comment: Supplemental ranges: <140 mg/dL before meals <180 mg/dL all other times of the day Blood specimen (specimen) 06/16/2020 3:31 AM EST 06/16/2020 3:31 AM EST Chun Stanton MD POINT OF CARE TEST ORDERABLES [facility] [place] [address] * POCT Glucose (06/16/2020 2:42 AM EST) Glucose, POC 182 65 - 199 mg/dL [facility] Comment: Supplemental ranges: <140 mg/dL before meals <180 mg/dL all other times of the day Blood specimen (specimen) 06/16/2020 2:42 AM EST 06/16/2020 2:42 AM EST Chun Stanton MD POINT OF CARE TEST ORDERABLES [facility] [place] [address] * POCT Glucose (06/16/2020 1:28 AM EST) Glucose, POC 198 65 - 199 mg/dL [facility] Comment: Supplemental ranges: <140 mg/dL before meals <180 mg/dL all other times of the day Blood specimen (specimen) 06/16/2020 1:28 AM EST 06/16/2020 1:28 AM EST Chun Stanton MD POINT OF CARE TEST ORDERABLES [facility] [place] [address] * POCT Glucose (06/15/2020 11:41 PM EST) Glucose, POC 133 65 - 199 mg/dL [facility] Comment: Supplemental ranges: <140 mg/dL before meals <180 mg/dL all other times of the day Blood specimen (specimen) 06/15/2020 11:41 PM EST 06/15/2020 11:41 PM EST Chun Stanton MD POINT OF CARE TEST ORDERABLES [facility] [place] [address] * POCT Glucose (06/15/2020 10:28 PM EST) Glucose, POC 141 65 - 199 mg/dL [facility] Comment: Supplemental ranges: <140 mg/dL before meals <180 mg/dL all other times of the day Blood specimen (specimen) 06/15/2020 10:28 PM EST 06/15/2020 10:28 PM EST Chun Stanton MD POINT OF CARE TEST ORDERABLES [facility] [place] [address] * POCT Glucose (06/15/2020 9:34 PM EST) Glucose, POC 140 65 - 199 mg/dL [facility] Comment: Supplemental ranges: <140 mg/dL before meals <180 mg/dL all other times of the day Blood specimen (specimen) 06/15/2020 9:34 PM EST 06/15/2020 9:34 PM EST Chun Stanton MD POINT OF CARE TEST ORDERABLES [facility] [place] [address] * POCT Glucose (06/15/2020 8:44 PM EST) Glucose, POC 120 65 - 199 mg/dL [facility] Comment: Supplemental ranges: <140 mg/dL before meals <180 mg/dL all other times of the day Blood specimen (specimen) 06/15/2020 8:44 PM EST 06/15/2020 8:44 PM EST Chun Stanton MD POINT OF CARE TEST ORDERABLES Performing Organization Address City/[facility]/ZIP Co de Phone Number [facility] [place] [address] * POCT Glucose (06/15/2020 7:17 PM EST) Glucose, POC 115 65 - 199 mg/dL [facility] Comment: Supplemental ranges: <140 mg/dL before meals <180 mg/dL all other times of the day Blood specimen (specimen) 06/15/2020 7:17 PM EST 06/15/2020 7:17 PM EST Chun Stanton MD POINT OF CARE TEST ORDERABLES Performing Organization Address City/[facility]/ZIP Co de Phone Number [facility] [place] [address] * POCT Glucose (06/15/2020 6:22 PM EST) Glucose, POC 107 65 - 199 mg/dL [facility] Comment: Supplemental ranges: <140 mg/dL before meals <180 mg/dL all other times of the day Blood specimen (specimen) 06/15/2020 6:22 PM EST 06/15/2020 6:22 PM EST Chun Stanton MD POINT OF CARE TEST ORDERABLES Performing Organization Address City/[facility]/ZIP Co de Phone Number [facility] [place] [address] * POCT Glucose (06/15/2020 5:05 PM EST) Glucose, POC 90 65 - 199 mg/dL [facility] Comment: Supplemental ranges: <140 mg/dL before meals <180 mg/dL all other times of the day Blood specimen (specimen) 06/15/2020 5:05 PM EST 06/15/2020 5:05 PM EST Chun Stanton MD POINT OF CARE TEST ORDERABLES Performing Organization Address [facility] Co de Phone Number [facility] [place] [address] * POCT Glucose (06/15/2020 3:48 PM EST) Glucose, POC 109 65 - 199 mg/dL [facility] Comment: Supplemental ranges: <140 mg/dL before meals <180 mg/dL all other times of the day Blood specimen (specimen) 06/15/2020 3:48 PM EST 06/15/2020 3:48 PM EST Chun Stanton MD POINT OF CARE TEST ORDERABLES Performing Organization Address City/[facility] Co de Phone Number [facility] [place] [address] * (ABNORMAL) POCT Glucose (06/15/2020 2:00 PM EST) Glucose, POC 222(H) 65 - 199 mg/dL [facility] Comment: Supplemental ranges: <140 mg/dL before meals <180 mg/dL all other times of the day Blood specimen (specimen) 06/15/2020 2:00 PM EST 06/15/2020 2:00 PM EST Chun Stanton MD POINT OF CARE TEST ORDERABLES Performing Organization Address [facility] Co de Phone Number [facility] [place] [address] * (ABNORMAL) POCT Glucose (06/15/2020 1:02 PM EST) Glucose, POC 223(H) 65 - 199 mg/dL [facility] Comment: Supplemental ranges: <140 mg/dL before meals <180 mg/dL all other times of the day Blood specimen (specimen) 06/15/2020 1:02 PM EST 06/15/2020 1:02 PM EST Chun Stanton MD POINT OF CARE TEST ORDERABLES Performing Organization Address [facility] Co de Phone Number [facility] [place] [address] * POCT Glucose (06/15/2020 11:51 AM EST) Glucose, POC 191 65 - 199 mg/dL [facility] Comment: Supplemental ranges: <140 mg/dL before meals <180 mg/dL all other times of the day Blood specimen (specimen) 06/15/2020 11:51 AM EST 06/15/2020 11:51 AM EST Chun Stanton MD POINT OF CARE TEST ORDERABLES Performing Organization Address [facility] Co de Phone Number [facility] [place] [address] * (ABNORMAL) POCT Glucose (06/15/2020 10:45 AM EST) Glucose, POC 221(H) 65 - 199 mg/dL [facility] Comment: Supplemental ranges: <140 mg/dL before meals <180 mg/dL all other times of the day Blood specimen (specimen) 06/15/2020 10:45 AM EST 06/15/2020 10:45 AM EST Chun Stanton MD POINT OF CARE TEST ORDERABLES Performing Organization Address [facility] Co de Phone Number [facility] [place] [address] * (ABNORMAL) POCT Glucose (06/15/2020 9:44 AM EST) Glucose, POC 249(H) 65 - 199 mg/dL [facility] Comment: Supplemental ranges: <140 mg/dL before meals <180 mg/dL all other times of the day Blood specimen (specimen) 06/15/2020 9:44 AM EST 06/15/2020 9:44 AM EST Chun Stanton MD POINT OF CARE TEST ORDERABLES Performing Organization Address [facility] Co de Phone Number [facility] [place] [address] * (ABNORMAL) POCT Glucose (06/15/2020 8:49 AM EST) Glucose, POC 246(H) 65 - 199 mg/dL [facility] Comment: Supplemental ranges: <140 mg/dL before meals <180 mg/dL all other times of the day Blood specimen (specimen) 06/15/2020 8:49 AM EST 06/15/2020 8:49 AM EST Chun Stanton MD POINT OF CARE TEST ORDERABLES Performing Organization Address [facility] Co de Phone Number [facility] [place] [address] * POCT Glucose (06/15/2020 7:35 AM EST) Glucose, POC 189 65 - 199 mg/dL [facility] Comment: Supplemental ranges: <140 mg/dL before meals <180 mg/dL all other times of the day Blood specimen (specimen) 06/15/2020 7:35 AM EST 06/15/2020 7:35 AM EST Chun Stanton MD POINT OF CARE TEST ORDERABLES Performing Organization Address [facility] Co de Phone Number [facility] [place] [address] * POCT Glucose (06/15/2020 6:31 AM EST) Glucose, POC 165 65 - 199 mg/dL [facility] Comment: Supplemental ranges: <140 mg/dL before meals <180 mg/dL all other times of the day Blood specimen (specimen) 06/15/2020 6:31 AM EST 06/15/2020 6:31 AM EST Chun Stanton MD POINT OF CARE TEST ORDERABLES Performing Organization Address [facility] Phone Number [facility] [place] [address] * Potassium (06/15/2020 5:37 AM EST) Potassium 4.7 3.5 - 5.0 mmol/L [facility] Comment: Please note: ??Patients with WBC >100,000 may have falsely elevated Potassium levels. ??For accurate Potassium quantification in these patients send serum separator tube (gold top) for subsequent determinations. ??Contact the Clinical Chemistry Laboratory if there are any questions. Blood specimen (specimen) 06/15/2020 5:37 AM EST 06/15/2020 5:54 AM EST Narrative Resulting Agency Comment Spec In Lab Chun Stanton MD CHEMISTRY ORDERABLE S Performing Organization Address [facility] [place] de Phone Number [facility] [place] [address] * POCT Glucose (06/15/2020 5:36 AM EST) Glucose, POC 170 65 - 199 mg/dL [facility] Comment: Supplemental ranges: <140 mg/dL before meals <180 mg/dL all other times of the day Blood specimen (specimen) 06/15/2020 5:36 AM EST 06/15/2020 5:36 AM EST Chun Stanton MD POINT OF CARE TEST ORDERABLES Performing Organization Address City/[facility] Co de Phone Number [facility] [place] [address] * POCT Glucose (06/15/2020 4:38 AM EST) Glucose, POC 162 65 - 199 mg/dL [facility] Comment: Supplemental ranges: <140 mg/dL before meals <180 mg/dL all other times of the day Blood specimen (specimen) 06/15/2020 4:38 AM EST 06/15/2020 4:38 AM EST Chun Stanton MD POINT OF CARE TEST ORDERABLES Performing Organization Address [facility] Co de Phone Number [facility] [place] [address] * POCT Glucose (06/15/2020 3:36 AM EST) Glucose, POC 173 65 - 199 mg/dL [facility] Comment: Supplemental ranges: <140 mg/dL before meals <180 mg/dL all other times of the day Blood specimen (specimen) 06/15/2020 3:36 AM EST 06/15/2020 3:36 AM EST Chun Stanton MD POINT OF CARE TEST ORDERABLES Performing Organization Address [facility] Co de Phone Number [facility] [place] [address] * POCT Glucose (06/15/2020 2:26 AM EST) Glucose, POC 179 65 - 199 mg/dL [facility] Comment: Supplemental ranges: <140 mg/dL before meals <180 mg/dL all other times of the day Blood specimen (specimen) 06/15/2020 2:26 AM EST 06/15/2020 2:26 AM EST Chun Stanton MD POINT OF CARE TEST ORDERABLES Performing Organization Address [facility] Co de Phone Number [facility] [place] [address] * POCT Glucose (06/15/2020 1:29 AM EST) Glucose, POC 196 65 - 199 mg/dL [facility] Comment: Supplemental ranges: <140 mg/dL before meals <180 mg/dL all other times of the day Blood specimen (specimen) 06/15/2020 1:29 AM EST 06/15/2020 1:29 AM EST Chun Stanton MD POINT OF CARE TEST ORDERABLES Performing Organization Address [facility] Co de Phone Number [facility] [place] [address] * POCT Glucose (06/15/2020 12:24 AM EST) Glucose, POC 152 65 - 199 mg/dL [facility] Comment: Supplemental ranges: <140 mg/dL before meals <180 mg/dL all other times of the day Blood specimen (specimen) 06/15/2020 12:24 AM EST 06/15/2020 12:24 AM EST Chun Stanton MD POINT OF CARE TEST ORDERABLES Performing Organization Address [facility] Co de Phone Number [facility] [place] [address] * POCT Glucose (06/14/2020 11:04 PM EST) Glucose, POC 132 65 - 199 mg/dL [facility] Comment: Supplemental ranges: <140 mg/dL before meals <180 mg/dL all other times of the day Blood specimen (specimen) 06/14/2020 11:04 PM EST 06/14/2020 11:04 PM EST Chun Stanton MD POINT OF CARE TEST ORDERABLES Performing Organization Address [facility] Co de Phone Number [facility] [place] [address] * POCT Glucose (06/14/2020 10:29 PM EST) Glucose, POC 114 65 - 199 mg/dL [facility] Comment: Supplemental ranges: <140 mg/dL before meals <180 mg/dL all other times of the day Blood specimen (specimen) 06/14/2020 10:29 PM EST 06/14/2020 10:29 PM EST Chun Stanton MD POINT OF CARE TEST ORDERABLES Performing Organization Address [facility] Co de Phone Number [facility] [place] [address] * POCT Glucose (06/14/2020 9:03 PM EST) Glucose, POC 110 65 - 199 mg/dL [facility] Comment: Supplemental ranges: <140 mg/dL before meals <180 mg/dL all other times of the day Blood specimen (specimen) 06/14/2020 9:03 PM EST 06/14/2020 9:03 PM EST Chun Stanton MD POINT OF CARE TEST ORDERABLES Performing Organization Address [facility] Co de Phone Number [facility] [place] [address] * POCT Glucose (06/14/2020 8:06 PM EST) Glucose, POC 104 65 - 199 mg/dL [facility] Comment: Supplemental ranges: <140 mg/dL before meals <180 mg/dL all other times of the day Blood specimen (specimen) 06/14/2020 8:06 PM EST 06/14/2020 8:06 PM EST Chun Stanton MD POINT OF CARE TEST ORDERABLES [facility] [place] [address] * POCT Glucose (06/14/2020 7:02 PM EST) Glucose, POC 118 65 - 199 mg/dL [facility] Comment: Supplemental ranges: <140 mg/dL before meals <180 mg/dL all other times of the day Blood specimen (specimen) 06/14/2020 7:02 PM EST 06/14/2020 7:02 PM EST Chun Stanton MD POINT OF CARE TEST ORDERABLES Performing Organization Address City/[facility] Co de Phone Number [facility] [place] [address] * POCT Glucose (06/14/2020 5:24 PM EST) Glucose, POC 141 65 - 199 mg/dL [facility] Comment: Supplemental ranges: <140 mg/dL before meals <180 mg/dL all other times of the day Blood specimen (specimen) 06/14/2020 5:24 PM EST 06/14/2020 5:24 PM EST Chun Stanton MD POINT OF CARE TEST ORDERABLES Performing Organization Address City/[facility]/ZIP Co de Phone Number [facility] [place] [address] * POCT Glucose (06/14/2020 4:21 PM EST) Glucose, POC 168 65 - 199 mg/dL [facility] Comment: Supplemental ranges: <140 mg/dL before meals <180 mg/dL all other times of the day Blood specimen (specimen) 06/14/2020 4:21 PM EST 06/14/2020 4:21 PM EST Chun Stanton MD POINT OF CARE TEST ORDERABLES [facility] [place] [address] * (ABNORMAL) POCT Glucose (06/14/2020 3:12 PM EST) Glucose, POC 206(H) 65 - 199 mg/dL [facility] Comment: Supplemental ranges: <140 mg/dL before meals <180 mg/dL all other times of the day Blood specimen (specimen) 06/14/2020 3:12 PM EST 06/14/2020 3:12 PM EST Chun Stanton MD POINT OF CARE TEST ORDERABLES Performing Organization Address City/[facility]/ZIP Co de Phone Number [facility] [place] [address] * (ABNORMAL) POCT Glucose (06/14/2020 2:07 PM EST) Glucose, POC 220(H) 65 - 199 mg/dL [facility] Comment: Supplemental ranges: <140 mg/dL before meals <180 mg/dL all other times of the day Blood specimen (specimen) 06/14/2020 2:07 PM EST 06/14/2020 2:07 PM EST Chun Stanton MD POINT OF CARE TEST ORDERABLES Performing Organization Address City/[facility]/ZIP Co de Phone Number [facility] [place] [address] * POCT Glucose (06/14/2020 1:04 PM EST) Glucose, POC 188 65 - 199 mg/dL [facility] Comment: Supplemental ranges: <140 mg/dL before meals <180 mg/dL all other times of the day Blood specimen (specimen) 06/14/2020 1:04 PM EST 06/14/2020 1:04 PM EST Chun Stanton MD POINT OF CARE TEST ORDERABLES [facility] [place] [address] * POCT Glucose (06/14/2020 11:56 AM EST) Glucose, POC 154 65 - 199 mg/dL [facility] Comment: Supplemental ranges: <140 mg/dL before meals <180 mg/dL all other times of the day Blood specimen (specimen) 06/14/2020 11:56 AM EST 06/14/2020 11:56 AM EST Chun Stanton MD POINT OF CARE TEST ORDERABLES [facility] [place] [address] * POCT Glucose (06/14/2020 10:04 AM EST) Glucose, POC 139 65 - 199 mg/dL [facility] Comment: Supplemental ranges: <140 mg/dL before meals <180 mg/dL all other times of the day Blood specimen (specimen) 06/14/2020 10:04 AM EST 06/14/2020 10:04 AM EST Chun Stanton MD POINT OF CARE TEST ORDERABLES [facility] [place] [address] * POCT Glucose (06/14/2020 9:32 AM EST) Glucose, POC 129 65 - 199 mg/dL [facility] Comment: Supplemental ranges: <140 mg/dL before meals <180 mg/dL all other times of the day Blood specimen (specimen) 06/14/2020 9:32 AM EST 06/14/2020 9:32 AM EST Chun Stanton MD POINT OF CARE TEST ORDERABLES [facility] [place] [address] * POCT Glucose (06/14/2020 8:36 AM EST) Glucose, POC 134 65 - 199 mg/dL [facility] Comment: Supplemental ranges: <140 mg/dL before meals <180 mg/dL all other times of the day Blood specimen (specimen) 06/14/2020 8:36 AM EST 06/14/2020 8:36 AM EST Chun Stanton MD POINT OF CARE TEST ORDERABLES [facility] [place] [address] * POCT Glucose (06/14/2020 6:00 AM EST) Glucose, POC 156 65 - 199 mg/dL [facility] Comment: Supplemental ranges: <140 mg/dL before meals <180 mg/dL all other times of the day Blood specimen (specimen) 06/14/2020 6:00 AM EST 06/14/2020 6:00 AM EST Chun Stanton MD POINT OF CARE TEST ORDERABLES Performing Organization Address City/[facility] Co de Phone Number [facility] [place] [address] * (ABNORMAL) Hemoglobin A1c (06/14/2020 5:13 AM EST) Hemoglobin A1c 8.2(H) 4.3 - 5.6 % [facility] Comment: Reference Range: 4.3 - 5.6% 5.7 - 6.4% - Increased Risk of Developing Diabetes Mellitus >= 6.5% - Consistent with diagnosis of Diabetes Mellitus In the absence of hyperglycemia (i.e. plasma glucose > 200 mg/dL) or classic symptoms of hyperglycemia a repeat measurement of HbA1c should be performed on a separate sample to confirm the diagnosis. Diagnosis and Classification of Diabetes Mellitus, Diabetes Care 2013; 36: Suppl. 1, G40-32 Estimated Average Glucose See note mg/dL [facility] Comment: Estimated Average Glucose not appropriate for patients over 70 years of age. eAG equivalents for HbA1c percentages: HbA1c(%) ?eAG(mg/dL) 6.0 ?126 6.5 ?140 7.0 ?154 7.5 ?169 8.0 ?183 8.5 ?197 9.0 ?212 9.5 ?226 10.0 ? 240 Limitations: The eAG calculation has not been validated on women, individuals below 18 years old and above 70 years old, and individuals with hemoglobinopathies. Additional resources are available on the ADA website. Johnathan BOO, Cira J, Mak R, et al. ??Translating the A1C assay into estimated average glucose values. ??Diabetes Care 2008:31(8):3493-8526. Blood specimen (specimen) Venous Draw / Unknown 06/14/2020 5:13 AM EST 06/15/2020 2:29 PM EST Narrative Resulting Agency Comment Spec In Lab Zenia Lanza APRN CHEMISTRY ORDERABLE S [facility] [place] [address] * Scan, Peripheral Blood (06/14/2020 5:13 AM EST) Plat estimate Decreased [facility] RBC Morphology Abnormal [facility] Microcyte 1-5 /HPF [facility] Ovalocytes 1-5 /HPF [facility] Roseline Cells 1-5 /HPF [facility] Blood specimen (specimen) 06/14/2020 5:13 AM EST 06/14/2020 5:23 AM EST Narrative Resulting Agency Comment Spec In Lab Kris KISER HEMATOLOGY ORDERABLE S [facility] [place] [address] * (ABNORMAL) Differential, Automated (06/14/2020 5:13 AM EST) Neutrophil % 78.7 % [facility] Neutrophil Absolute 10.60(H) 1.70 - 6.10 x10(3)/mc L [facility] Lymph % 7.9 % [facility] Lymphocytes Abs 1.1 0.9 - 3.2 x10(3)/ L [facility] Monocyte % 12.9 % [facility] Monocyte Abs 1.7(H) 0.3 - 0.9 x10(3)/ L [facility] Eos % 0.0 % [facility] Eosinophils Abs 0.0 0.0 - 0.4 x10(3)/[facility] Basophil % 0.1 % [facility] Baso Absolute 0.0 0.0 - 0.1 x10(3)/mc L [facility] Immature Gran % 0.40 % [facility] Comment: Immature granulocytes(IG's)percentage and absolute count will include metamyelocytes, myelocytes, and promyelocytes. Blood smears from CBCs yielding IG's will be scanned manually for concordance. If this scan disagrees with the automated IG or if promyelocytes are noted, a manual differential will be performed. Immature Gran Absolute 0.06(H) 0.00 - 0.04 x10(3)/ L [facility] Blood specimen (specimen) 06/14/2020 5:13 AM EST 06/14/2020 5:23 AM EST Narrative Resulting Agency Comment Spec In Lab Kris KISER HEMATOLOGY ORDERABLE S [facility] [place] [address] * (ABNORMAL) Hemogram (06/14/2020 5:13 AM EST) White Blood Cell 13.5(H) 4.0 - 9.5 x10(3)/mc L [facility] Red Blood Cell 3.04(L) 4.58 - 5.54 x10(6)/mc L [facility] Hemoglobin 8.8(L) 13.7 - 16.5 gm/dL [facility] Hematocrit 25.5(L) 40.5 - 48.5 % [facility] Mean Cell Volume 83.9 82.9 - 93.1 fL [facility] Mean Cell Hemoglobin 28.9 27.5 - 32.1 pg [facility] Mean Cell Hemoglobin Concentration 34.5 32.0 - 35.7 gm/dL [facility] Platelet 123(L) 145 - 357 x10(3)/mc L [facility] RDW Standard Deviation 42.4 36.0 - 45.0 fL [facility] RDW coefficient of variation 13.8 11.4 - 13.8 % [facility] Mean Platelet Volume 11.5 7.6 - 12.9 fL [facility] NRBC% auto 0.0 % [facility] NRBC Absolute 0.000 0.000 - 0.000 x10(3)/mc L [facility] Blood specimen (specimen) 06/14/2020 5:13 AM EST 06/14/2020 5:23 AM EST Narrative Resulting Agency Comment Spec In Lab Kris KISER HEMATOLOGY ORDERABLE S [facility] [place] [address] * (ABNORMAL) Basic Metabolic Panel (non-fasting) (06/14/2020 5:13 AM EST) Glucose 143 65 - 199 mg/dL [facility] Comment:Diabetes: >=200 mg/d L plus symptoms Blood Urea Nitrogen 14 10 - 20 mg/dL [facility] Creatinine 0.99 0.80 - 1.50 mg/dL [facility] Sodium 140 135 - 145 mmol/L [facility] Potassium 4.0 3.5 - 5.0 mmol/L [facility] Comment: Please note: ??Patients with WBC >100,000 may have falsely elevated Potassium levels. ??For accurate Potassium quantification in these patients send serum separator tube (gold top) for subsequent determinations. ??Contact the Clinical Chemistry Laboratory if there are any questions. Chloride 106 98 - 107 mmol/L [facility] Carbon Dioxide 24 22 - 31 mmol/L [facility] Anion Gap 10 5 - 15 mmol/L [facility] Calcium 8.0(L) 8.5 - 10.5 mg/dL [facility] Est Glomerular Filtration Rate 77 >=60 mL/min/1. 73 m?? [facility] Comment: The eGFR was calculated using the CKD-EPI equation. As with all creatinine based estimates of kidney function, eGFR values calculated with the CKD-EPI equation are not accurate in patients with acute kidney failure, extremes of body mass or the acutely ill. [email or web address]/[facility] OKLAHOMA CITYnkf eGFR 89 >=60 mL/min/1. 73 m?? [facility] Comment: The eGFR was calculated using the CKD-EPI equation. As with all creatinine based estimates of kidney function, eGFR values calculated with the CKD-EPI equation are not accurate in patients with acute kidney failure, extremes of body mass or the acutely ill. [email or web address]/DHnkf Blood specimen (specimen) 06/14/2020 5:13 AM EST 06/14/2020 5:23 AM EST Narrative Resulting Agency Comment Spec In Lab Chun Stanton MD CHEMISTRY ORDERABLE S Performing Organization Address City/State/[facility] Co de Phone Number [facility] [place] [address] * (ABNORMAL) Troponin (06/14/2020 5:13 AM EST) [facility] Troponin-T 0.47(H) 0.00 - 0.00 ng/mL [facility] Comment: The 99th percentile for Troponin T is less than 0.01 ng/mL, any detectable cTnT concentration using this assay should be considered elevated. According to the third universal definition of myocardial infarction the following criteria with a clinical presentation consistent with acute myocardial ischemia meets the diagnosis for a myocardial infarction ([place]). Detection of a rise and/or fall of cTnT, with at least one value greater than the 99th percentile (> or = 0.01) and with at least one of the following ?? Symptoms of ischemia ?? New or presumed new significant HY-[id number]-D wave (ST-T) changes or new left bundle branch block (LBBB) ?? Development of pathologic Q waves in the ECG ?? Imaging evidence of new loss of viable myocardium or new regional wall motion abnormality ?? Identification of an intracoronary thrombus by angiography or autopsy Samples for cTnT testing should be obtained serially upon first assessment and again 3 to 6 hours later. If the clinical suspicion is high and previous samples have been negative an additional sample may be indicated. Reference: Third [place] Definition of Myocardial Infarction. Journal of the [place] [employer] 2012;60:1581-98 Blood specimen (specimen) 06/14/2020 5:13 AM EST 06/14/2020 5:23 AM EST Narrative Resulting Agency Comment Spec In Lab Chun Stanton MD CHEMISTRY ORDERABLE S Performing Organization Address [facility]/ZIP Co de Phone Number [facility] [place] [address] * POCT Glucose (06/14/2020 2:36 AM EST) [facility] Glucose, POC 169 65 - 199 mg/dL [facility] Comment: Supplemental ranges: <140 mg/dL before meals <180 mg/dL all other times of the day Blood specimen (specimen) 06/14/2020 2:36 AM EST 06/14/2020 2:36 AM EST Chun Stanton MD POINT OF CARE TEST ORDERABLES Performing Organization Address [facility] Co de Phone Number [facility] [place] [address] * POCT Glucose (06/13/2020 10:38 PM EST) Glucose, POC 193 65 - 199 mg/dL [facility] Comment: Supplemental ranges: <140 mg/dL before meals <180 mg/dL all other times of the day Blood specimen (specimen) 06/13/2020 10:38 PM EST 06/13/2020 10:38 PM EST Chun Stanton MD POINT OF CARE TEST ORDERABLES Performing Organization Address [facility] Co de Phone Number [facility] [place] [address] * (ABNORMAL) POCT Glucose (06/13/2020 8:41 PM EST) Glucose, POC 217(H) 65 - 199 mg/dL [facility] Comment: Supplemental ranges: <140 mg/dL before meals <180 mg/dL all other times of the day Blood specimen (specimen) 06/13/2020 8:41 PM EST 06/13/2020 8:41 PM EST Chun Stanton MD POINT OF CARE TEST ORDERABLES Performing Organization Address [facility] Co de Phone Number [facility] [place] [address] * (ABNORMAL) POCT Glucose (06/13/2020 7:04 PM EST) Glucose, POC 217(H) 65 - 199 mg/dL [facility] Comment: Supplemental ranges: <140 mg/dL before meals <180 mg/dL all other times of the day Blood specimen (specimen) 06/13/2020 7:04 PM EST 06/13/2020 7:04 PM EST Chun Stanton MD POINT OF CARE TEST ORDERABLES Performing Organization Address [facility] Co de Phone Number [facility] [place] [address] * (ABNORMAL) POCT Glucose (06/13/2020 6:17 PM EST) Glucose, POC 230(H) 65 - 199 mg/dL [facility] Comment: Supplemental ranges: <140 mg/dL before meals <180 mg/dL all other times of the day Blood specimen (specimen) 06/13/2020 6:17 PM EST 06/13/2020 6:17 PM EST Chun Stanton MD POINT OF CARE TEST ORDERABLES Performing Organization Address [facility] de Phone Number [facility] [place] [address] * (ABNORMAL) POCT Glucose (06/13/2020 5:42 PM EST) Glucose, POC 255(H) 65 - 199 mg/dL [facility] Comment: Supplemental ranges: <140 mg/dL before meals <180 mg/dL all other times of the day Blood specimen (specimen) 06/13/2020 5:42 PM EST 06/13/2020 5:42 PM EST Chun Stanton MD POINT OF CARE TEST ORDERABLES Performing Organization Address [facility] Co de Phone Number [facility] [place] [address] * (ABNORMAL) Hemoglobin (06/13/2020 5:38 PM EST) Hemoglobin 9.9(L) 13.7 - 16.5 gm/dL [facility] Blood specimen (specimen) 06/13/2020 5:38 PM EST 06/13/2020 5:49 PM EST Narrative Resulting Agency Comment Spec In Lab Chun Stanton MD HEMATOLOGY ORDERABL ES Performing Organization Address [facility] Phone Number [facility] [place] [address] * Potassium (06/13/2020 5:38 PM EST) [facility] Potassium 3.9 3.5 - 5.0 mmol/L [facility] Comment: Please note: ??Patients with WBC >100,000 may have falsely elevated Potassium levels. ??For accurate Potassium quantification in these patients send serum separator tube (gold top) for subsequent determinations. ??Contact the Clinical Chemistry Laboratory if there are any questions. Blood specimen (specimen) 06/13/2020 5:38 PM EST 06/13/2020 5:49 PM EST Narrative Resulting Agency Comment Spec In Lab Chun Stanton MD CHEMISTRY ORDERABLE S Performing Organization Address [facility] Phone Number [facility] [place] [address] * (ABNORMAL) POCT Glucose (06/13/2020 4:39 PM EST) [facility] Glucose, POC 215(H) 65 - 199 mg/dL [facility] Comment: Supplemental ranges: <140 mg/dL before meals <180 mg/dL all other times of the day Blood specimen (specimen) 06/13/2020 4:39 PM EST 06/13/2020 4:39 PM EST Chun Stanton MD POINT OF CARE TEST ORDERABLES Performing Organization Address [facility] de Phone Number [facility] [place] [address] * (ABNORMAL) BLOOD GAS 2 ARTERIAL (06/13/2020 4:22 PM EST) [facility] pH, Arterial 7.34(L) 7.35 - 7.45 [facility] PCO2, Arterial 37 35 - 45 mmHg [facility] PO2, Arterial 82(L) 85 - 104 mmHg [facility] Bicarbonate, Arterial 19.1(L) 20.0 - 26.0 mmol/L [facility] Base Excess, Arterial -6.7(L) -3.0 - 3.0 mmol/L [facility] Hgb Blood Gas 10.8(L) 13.7 - 16.5 gm/dL [facility] Oxyhemoglobin, Arterial 93.9(L) 94.0 - 97.0 % [facility] Carboxyhemoglob in, Arterial 0.1 % [facility] Comment: Nonsmokers: 0.5-1.5% COHB Smokers: Variable, but usually less than 10% Toxic: 20-30% COHB Lethal: Greater than 60% COHB Methemoglobin, Arterial 0.4 <=1.5 % [facility] Na Whole Blood 137 135 - 145 mmol/L [facility] K Whole Blood 3.6 3.5 - 5.0 mmol/L [facility] Comment: Please note: Patients with WBC >100,000 may have falsely elevated Potassium levels. Contact the Clinical Chemistry Laboratory if there are any questions. ICa Whole Blood 1.06(L) 1.15 - 1.33 mmol/L [facility] Comment: Note: ??Total bilirubin higher than 20 mg/dL may lead to falsely low ionized calcium. CL Whole Blood 108(H) 98 - 107 mmol/L [facility] Gluc Whole Bld 226(H) 65 - 199 mg/dL [facility] Comment:Diabetes: >=200 mg/d L plus symptoms. Lactate WB 2.9(H) 0.5 - 2.2 mmol/L [facility] FIO2 Art 40 % [facility] PF Ratio Art 205 [facility] Blood specimen (specimen) 06/13/2020 4:22 PM EST 06/13/2020 4:22 PM EST Chun Stanton MD POINT OF CARE TEST ORDERABLES [facility] [place] [address] * POCT Glucose (06/13/2020 3:32 PM EST) Glucose, POC 184 65 - 199 mg/dL [facility] Comment: Supplemental ranges: <140 mg/dL before meals <180 mg/dL all other times of the day Blood specimen (specimen) 06/13/2020 3:32 PM EST 06/13/2020 3:32 PM EST Chun Stanton MD POINT OF CARE TEST ORDERABLES [facility] [place] [address] * XR Chest One View (06/13/2020 2:48 PM EST) Anatomical Region Laterality Modality Chest N/A Digital Radiogra phy Impressions 06/13/2020 2:55 PM EST 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 Lines and tubes are in expected, appropriate position. Thank you for letting us participate in the care of this patient. For questions regarding this report, please contact the number below. ? Narrative 06/13/2020 2:55 PM EST EXAMINATION: XR CHEST ONE VIEW CLINICAL HISTORY: Status post aortic valve replacement/ CABG TECHNIQUE: 1 view of the chest , AP 30 degrees upright COMPARISON: Radiographs May 26 and June 03, 2020 FINDINGS: -Endotracheal tube tip is 7 cm above the ranjith. -Right internal jugular vein [place]-Lisa catheter tip is at the bifurcation of main pulmonary artery. -Midline mediastinal tube tip projects over T3. A second mediastinal tube projects over left ventricle. -A left chest tube tip projects over the posterior left seventh rib. -Prosthetic aortic valve, coronary artery clips and sternotomy cerclage cables are intact. Lungs are well-inflated without pneumothorax. Small left pleural effusion. Cardiomediastinal contours and pulmonary vasculature are normal. No free air below the diaphragm. Extrathoracic soft tissues are normal. No displaced fracture or destructive bone lesion. Thoracic spondylosis and bilateral acromioclavicular osteoarthropathy are unchanged. Procedure Note Yasmin Evans MD - 06/13/2020 EXAMINATION: XR CHEST ONE VIEW CLINICAL HISTORY: Status post aortic valve replacement/ CABG TECHNIQUE: 1 view of the chest , AP 30 degrees upright COMPARISON: Radiographs May 26 and June 03, 2020 FINDINGS: -Endotracheal tube tip is 7 cm above the ranjith. -Right internal jugular vein [place]-Lisa catheter tip is at the bifurcationof main pulmonary artery. -Midline mediastinal tube tip projects over T3. A second mediastinaltube projects over left ventricle. -A left chest tube tip projects over the posterior left seventh rib. -Prosthetic aortic valve, coronary artery clips and sternotomy cerclagecables are intact. Lungs are well-inflated without pneumothorax. Small left pleuraleffusion. Cardiomediastinal contours and pulmonary vasculature are normal. No free air below the diaphragm. Extrathoracic soft tissues are normal. No displaced fracture or destructive bone lesion. Thoracic spondylosisand bilateral acromioclavicular osteoarthropathy are unchanged. IMPRESSION Status post prosthetic aortic valve replacement and coronary arterybypass without radiographic finding of complication. Lines and tubes are inexpected, appropriate position. Thank you for letting us participate in the care of this patient. Forquestions regarding this report, please contact the number below. Electronically signed by: Yasmin Evans MD, [facility]([phone]), at 06/13/2020 2:55 PM Chun Stanton MD IMG DX ORDERABLES * EKG 12 Lead (06/13/2020 2:20 PM EST) Ventricular rate 56 BPM MUSE SYSTEM Atrial Rate 56 BPM MUSE SYSTEM P-R Interval 132 ms MUSE SYSTEM QRS Duration 92 ms MUSE SYSTEM Q-T Interval 458 ms MUSE SYSTEM QTC Calculated (Bezet) 441 ms MUSE SYSTEM Calculated P [place] 45 degrees MUSE SYSTEM Calculated R [place] -32 degrees MUSE SYSTEM Calculated T [place] -30 degrees MUSE SYSTEM INTERPRETATION Sinus bradycardia Left axis deviation Inferior infarct (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-2020) ST elevation, consider early repolarization Abnormal ECG When compared with ECG of 03-JUN-2020 11:37, T wave inversion are no longer present in the lateral leads. Confirmed by Carlos Toro ([id number]) on 06/13/2020 4:08:19 PM MUSE SYSTEM 06/13/2020 2:20 PM EST 06/13/2020 4:08 PM EST Chun Stanton MD ECG ORDERABLES MUSE SYSTEM * (ABNORMAL) BLOOD GAS 2 ARTERIAL (06/13/2020 2:19 PM EST) pH, Arterial 7.32(L) 7.35 - 7.45 [facility] PCO2, Arterial 47(H) 35 - 45 mmHg [facility] PO2, Arterial 205(H) 85 - 104 mmHg [facility] Bicarbonate, Arterial 24.1 20.0 - 26.0 mmol/L [facility] Base Excess, Arterial -1.9 -3.0 - 3.0 mmol/L [facility] Hgb Blood Gas 10.0(L) 13.7 - 16.5 gm/dL [facility] Oxyhemoglobin, Arterial 97.6(H) 94.0 - 97.0 % [facility] Carboxyhemoglob in, Arterial 0.3 % [facility] Comment: Nonsmokers: 0.5-1.5% COHB Smokers: Variable, but usually less than 10% Toxic: 20-30% COHB Lethal: Greater than 60% COHB Methemoglobin, Arterial 0.6 <=1.5 % [facility] Na Whole Blood 139 135 - 145 mmol/L [facility] K Whole Blood 4.3 3.5 - 5.0 mmol/L [facility] Comment: Please note: Patients with WBC >100,000 may have falsely elevated Potassium levels. Contact the Clinical Chemistry Laboratory if there are any questions. ICa Whole Blood 1.12(L) 1.15 - 1.33 mmol/L [facility] Comment: Note: ??Total bilirubin higher than 20 mg/dL may lead to falsely low ionized calcium. CL Whole Blood 107 98 - 107 mmol/L [facility] Gluc Whole Bld 186 65 - 199 mg/dL [facility] Comment:Diabetes: >=200 mg/d L plus symptoms. Lactate WB 1.7 0.5 - 2.2 mmol/L [facility] FIO2 Art 100 % [facility] PF Ratio Art 205 [facility] Blood specimen (specimen) 06/13/2020 2:19 PM EST 06/13/2020 2:19 PM EST Chun Stanton MD POINT OF CARE TEST ORDERABLES Performing Organization Address City/State/[facility] Co de Phone Number [facility] [place] [address] * (ABNORMAL) BLOOD GAS 2 ARTERIAL (06/13/2020 12:46 PM EST) pH, Arterial 7.33(L) 7.35 - 7.45 [facility] PCO2, Arterial 42 35 - 45 mmHg [facility] PO2, Arterial 90 85 - 104 mmHg [facility] Bicarbonate, Arterial 21.8 20.0 - 26.0 mmol/L [facility] Base Excess, Arterial -4.0(L) -3.0 - 3.0 mmol/L [facility] Hgb Blood Gas 7.8(L) 13.7 - 16.5 gm/dL [facility] Oxyhemoglobin, Arterial 94.6 94.0 - 97.0 % [facility] Carboxyhemoglob in, Arterial 1.0 % [facility] Comment: Nonsmokers: 0.5-1.5% COHB Smokers: Variable, but usually less than 10% Toxic: 20-30% COHB Lethal: Greater than 60% COHB Methemoglobin, Arterial 0.3 <=1.5 % [facility] Na Whole Blood 134(L) 135 - 145 mmol/L [facility] K Whole Blood 3.8 3.5 - 5.0 mmol/L [facility] Comment: Please note: Patients with WBC >100,000 may have falsely elevated Potassium levels. Contact the Clinical Chemistry Laboratory if there are any questions. ICa Whole Blood 1.16 1.15 - 1.33 mmol/L [facility] Comment: Note: ??Total bilirubin higher than 20 mg/dL may lead to falsely low ionized calcium. CL Whole Blood 107 98 - 107 mmol/L [facility] Gluc Whole Bld 194 65 - 199 mg/dL [facility] Comment:Diabetes: >=200 mg/d L plus symptoms. Lactate WB 3.2(H) 0.5 - 2.2 mmol/L [facility] Blood specimen (specimen) 06/13/2020 12:46 PM EST 06/13/2020 12:46 PM EST Chun Stanton MD POINT OF CARE TEST ORDERABLES [facility] [place] [address] * Scan, Peripheral Blood (06/13/2020 12:40 PM EST) Plat estimate Decreased [facility] RBC Morphology Abnormal [facility] Ovalocytes 1-5 /HPF [facility] Blood specimen (specimen) 06/13/2020 12:40 PM EST 06/13/2020 12:51 PM EST Narrative Resulting Agency Comment Spec In Lab Sarahi Avery MD HEMATOLOGY ORDERABLE S [facility] [place] [address] * (ABNORMAL) Fibrinogen (06/13/2020 12:40 PM EST) Fibrinogen 156(L) 200 - 393 mg/dL [facility] Comment: OR Result called by ?? SALVLT OR Results read back by: ? Wilfredgloria Heath at 2020-06-13 13:07:09 A fibrinogen level >100 mg/dL is adequate for hemostasis in most patients without underlying bleeding disorders. Blood specimen (specimen) 06/13/2020 12:40 PM EST 06/13/2020 12:51 PM EST Narrative Resulting Agency Comment Spec In Lab Marianna Torres MD HEMATOLOGY ORDERABL ES Performing Organization Address [facility] de Phone Number [facility] [place] [address] * APTT (06/13/2020 12:40 PM EST) Partial Thromboplastin Time 27 25 - 37 sec [facility] Comment: OR Result called by ?? SALVLT OR Results read back by: ? Wilfred Kay at 2020-06-13 13:07:09 The PTT is NOT appropriate for heparin monitoring. Use the Anti-Xa level for heparin monitoring (HEP UFH) or LMWH monitoring (HEP LMW). A PTT less than 37 seconds generally indicates adequate hemostasis. Blood specimen (specimen) 06/13/2020 12:40 PM EST 06/13/2020 12:51 PM EST Narrative Resulting Agency Comment Spec In Lab Marianna Torres MD HEMATOLOGY ORDERABL ES Performing Organization Address [facility] Co de Phone Number [facility] [place] [address] * (ABNORMAL) Prothrombin Time (06/13/2020 12:40 PM EST) Prothrombin Time 17.2(H) 9.4 - 12.5 sec [facility] Comment: OR Result called by ?? SALVLT OR Results read back by: ? Wilfred Kay at 2020-06-13 13:07:09 International Normalization Ratio 1.5 [facility] Comment: OR Result called by ?? SALVLT OR Results read back by: ? Wilfred Heath at 2020-06-13 13:07:09 An INR <2.0 indicates adequate procoagulant activity for hemostasis in most patients without underlying bleeding disorders, though the INR may not adequately reflect hemostatic capacity in patients with liver disease and synthetic impairment. The recommended target INR range for therapeutic anticoagulation is 2.0 ? 3.0 for most applications, though lower and higher ranges may be appropriate depending on clinical circumstances. Blood specimen (specimen) 06/13/2020 12:40 PM EST 06/13/2020 12:51 PM EST Narrative Resulting Agency Comment Spec In Lab Marianna Torres MD HEMATOLOGY ORDERABL ES [facility] [place] [id number] * (ABNORMAL) Hemogram (06/13/2020 12:40 PM EST) White Blood Cell 9.1 4.0 - 9.5 x10(3)/mc L [facility] Red Blood Cell 2.50(L) 4.58 - 5.54 x10(6)/mc L [facility] Hemoglobin 7.3(L) 13.7 - 16.5 gm/dL [facility] Hematocrit 21.4(L) 40.5 - 48.5 % [facility] Comment: This result has been called to WILFRED HEATH by Adelita Huff on 06 13 2020 at 1331, and has been read back. Mean Cell Volume 85.6 82.9 - 93.1 fL [facility] Mean Cell Hemoglobin 29.2 27.5 - 32.1 pg [facility] Mean Cell Hemoglobin Concentration 34.1 32.0 - 35.7 gm/dL [facility] Platelet 81(L) 145 - 357 x10(3)/mc L [facility] RDW Standard Deviation 41.9 36.0 - 45.0 fL [facility] RDW coefficient of variation 13.5 11.4 - 13.8 % [facility] Mean Platelet Volume 12.1 7.6 - 12.9 fL [facility] NRBC% auto 0.0 % [facility] NRBC Absolute 0.000 0.000 - 0.000 x10(3)/mc L [facility] Blood specimen (specimen) 06/13/2020 12:40 PM EST 06/13/2020 12:51 PM EST Narrative Resulting Agency Comment Spec In Lab Marianna Torres MD HEMATOLOGY ORDERABL ES [facility] [place] [address] * (ABNORMAL) BLOOD GAS 2 ARTERIAL (06/13/2020 12:13 PM EST) pH, Arterial 7.30(L) 7.35 - 7.45 [facility] PCO2, Arterial 44 35 - 45 mmHg [facility] PO2, Arterial 392(H) 85 - 104 mmHg [facility] Bicarbonate, Arterial 21.3 20.0 - 26.0 mmol/L [facility] Base Excess, Arterial -5.1(L) -3.0 - 3.0 mmol/L [facility] Hgb Blood Gas 7.8(L) 13.7 - 16.5 gm/dL [facility] Oxyhemoglobin, Arterial 98.3(H) 94.0 - 97.0 % [facility] Carboxyhemoglob in, Arterial 0.8 % [facility] Comment: Nonsmokers: 0.5-1.5% COHB Smokers: Variable, but usually less than 10% Toxic: 20-30% COHB Lethal: Greater than 60% COHB Methemoglobin, Arterial 0.3 <=1.5 % [facility] Na Whole Blood 129(L) 135 - 145 mmol/L [facility] K Whole Blood 5.0 3.5 - 5.0 mmol/L [facility] Comment: Please note: Patients with WBC >100,000 may have falsely elevated Potassium levels. Contact the Clinical Chemistry Laboratory if there are any questions. ICa Whole Blood 1.37(H) 1.15 - 1.33 mmol/L [facility] Comment: Note: ??Total bilirubin higher than 20 mg/dL may lead to falsely low ionized calcium. CL Whole Blood 106 98 - 107 mmol/L [facility] Gluc Whole Bld 211(H) 65 - 199 mg/dL [facility] Comment:Diabetes: >=200 mg/d L plus symptoms. Lactate WB 2.9(H) 0.5 - 2.2 mmol/L [facility] Blood specimen (specimen) 06/13/2020 12:13 PM EST 06/13/2020 12:13 PM EST Chun Stanton MD POINT OF [place] [address] * Prepare Platelets, Apheresis (06/13/2020 12:10 PM EST) Dispensed? Yes [facility] Blood specimen (specimen) 06/13/2020 12:10 PM EST 06/13/2020 12:08 PM EST Chun Stanton MD BLOOD BANK PRODUCT ORDERABLES [facility] [place] [address] * (ABNORMAL) Platelet count (06/13/2020 11:50 AM EST) Platelet 107(L) 145 - 357 x10(3)/mc L [facility] Immature Plt % 5.0 0.0 - 7.4 % [facility] Comment: Limitation of the Immature Platelet Fraction (IPF)-May be less reliable when the platelet count is less than 88h986/uL due to statistical imprecision. The IPF value provides an assessment of the Bone Marrow production status. ??It is useful in differentiating Thrombocytopenia caused by platelet destruction/consumption versus decreased production. It also helps to determine the imminent release of platelets and can be therefore a helpful parameter in Chemotherapy and Bone marrow transplant patients. ELEVATED IPF value: ?? When the bone marrow is in a state of over production such as when increased destruction and consumption are the underlying issue. ?? When the marrow is recovering post chemotherapy or bone marrow transplant. LOW to NORMAL IPF value: ?? When the bone marrow in not responding and is in a decreased state of production. References: [employer] The Clinical Value of the Immature Platelet Fraction (IPF) in Cell Recovery Document Number [id number] 12/2010 [employer] The Role of the Immature Platelet Fraction (IPF) in the Differential Diagnosis of Thrombocytopenia, Document [id number] V011/23/13 P011/25 Blood specimen (specimen) 06/13/2020 11:50 AM EST 06/13/2020 11:59 AM EST Narrative Resulting Agency Comment Spec In Lab Chun Stanton MD HEMATOLOGY ORDERABL ES [facility] [place] [address] * (ABNORMAL) Hemoglobin and Hematocrit, blood (06/13/2020 11:50 AM EST) Hemoglobin 7.8(L) 13.7 - 16.5 gm/dL [facility] Hematocrit 22.7(L) 40.5 - 48.5 % [facility] Comment: This result has been called to WILFRED HEATH by Elizabet Santiago on 06 13 2020 at 1207, and has been read back. Blood specimen (specimen) 06/13/2020 11:50 AM EST 06/13/2020 11:59 AM EST Narrative Resulting Agency Comment Spec In Lab Chun Stanton MD HEMATOLOGY ORDERABL ES Performing Organization Address [facility] Co de Phone Number [facility] [place] [address] * (ABNORMAL) Fibrinogen (06/13/2020 11:50 AM EST) Fibrinogen 161(L) 200 - 393 mg/dL [facility] Comment: OR Result called by ?? LOMARL OR Results read back by: ? Wilfred Heath at 2020-06-13 12:13:36 A fibrinogen level >100 mg/dL is adequate for hemostasis in most patients without underlying bleeding disorders. Blood specimen (specimen) 06/13/2020 11:50 AM EST 06/13/2020 11:59 AM EST Narrative Resulting Agency Comment Spec In Lab Chun Stanton MD HEMATOLOGY ORDERABL ES Performing Organization Address [facility] de Phone Number [facility] [place] [address] * (ABNORMAL) BLOOD GAS 2 ARTERIAL (06/13/2020 11:44 AM EST) pH, Arterial 7.34(L) 7.35 - 7.45 [facility] PCO2, Arterial 41 35 - 45 mmHg [facility] PO2, Arterial 235(H) 85 - 104 mmHg [facility] Bicarbonate, Arterial 21.5 20.0 - 26.0 mmol/L [facility] Base Excess, Arterial -4.3(L) -3.0 - 3.0 mmol/L [facility] Hgb Blood Gas 9.3(L) 13.7 - 16.5 gm/dL [facility] Oxyhemoglobin, Arterial 98.5(H) 94.0 - 97.0 % [facility] Carboxyhemoglob in, Arterial 0.2 % [facility] Comment: Nonsmokers: 0.5-1.5% COHB Smokers: Variable, but usually less than 10% Toxic: 20-30% COHB Lethal: Greater than 60% COHB Methemoglobin, Arterial 0.3 <=1.5 % [facility] Na Whole Blood 132(L) 135 - 145 mmol/L [facility] K Whole Blood 4.6 3.5 - 5.0 mmol/L [facility] Comment: Please note: Patients with WBC >100,000 may have falsely elevated Potassium levels. Contact the Clinical Chemistry Laboratory if there are any questions. ICa Whole Blood 0.97(L) 1.15 - 1.33 mmol/L [facility] Comment: Note: ??Total bilirubin higher than 20 mg/dL may lead to falsely low ionized calcium. CL Whole Blood 106 98 - 107 mmol/L [facility] Gluc Whole Bld 222(H) 65 - 199 mg/dL [facility] Comment:Diabetes: >=200 mg/d L plus symptoms. Lactate WB 2.1 0.5 - 2.2 mmol/L [facility] Blood specimen (specimen) 06/13/2020 11:44 AM EST 06/13/2020 11:44 AM EST Chun Stanton MD POINT OF CARE TEST ORDERABLES Performing Organization Address City/State/[facility] Co de Phone Number [facility] [place] [address] * (ABNORMAL) BLOOD GAS 2 ARTERIAL (06/13/2020 11:08 AM EST) pH, Arterial 7.34(L) 7.35 - 7.45 [facility] PCO2, Arterial 41 35 - 45 mmHg [facility] PO2, Arterial 288(H) 85 - 104 mmHg [facility] Bicarbonate, Arterial 21.9 20.0 - 26.0 mmol/L [facility] Base Excess, Arterial -3.8(L) -3.0 - 3.0 mmol/L [facility] Hgb Blood Gas 9.1(L) 13.7 - 16.5 gm/dL [facility] Oxyhemoglobin, Arterial 98.7(H) 94.0 - 97.0 % [facility] Carboxyhemoglob in, Arterial 0.3 % [facility] Comment: Nonsmokers: 0.5-1.5% COHB Smokers: Variable, but usually less than 10% Toxic: 20-30% COHB Lethal: Greater than 60% COHB Methemoglobin, Arterial 0.3 <=1.5 % [facility] Na Whole Blood 132(L) 135 - 145 mmol/L [facility] K Whole Blood 5.3(H) 3.5 - 5.0 mmol/L [facility] Comment: Please note: Patients with WBC >100,000 may have falsely elevated Potassium levels. Contact the Clinical Chemistry Laboratory if there are any questions. ICa Whole Blood 0.98(L) 1.15 - 1.33 mmol/L [facility] Comment: Note: ??Total bilirubin higher than 20 mg/dL may lead to falsely low ionized calcium. CL Whole Blood 106 98 - 107 mmol/L [facility] Gluc Whole Bld 230(H) 65 - 199 mg/dL [facility] Comment:Diabetes: >=200 mg/d L plus symptoms. Lactate WB 2.0 0.5 - 2.2 mmol/L [facility] Blood specimen (specimen) 06/13/2020 11:08 AM EST 06/13/2020 11:08 AM EST Chun Stanton MD POINT OF CARE TEST ORDERABLES Performing Organization Address City/State/[facility] Co de Phone Number [facility] [place] [address] * (ABNORMAL) BLOOD GAS 2 ARTERIAL (06/13/2020 10:25 AM EST) pH, Arterial 7.38 7.35 - 7.45 [facility] PCO2, Arterial 38 35 - 45 mmHg [facility] PO2, Arterial 436(H) 85 - 104 mmHg [facility] Bicarbonate, Arterial 21.9 20.0 - 26.0 mmol/L [facility] Base Excess, Arterial -3.2(L) -3.0 - 3.0 mmol/L [facility] Hgb Blood Gas 9.2(L) 13.7 - 16.5 gm/dL [facility] Oxyhemoglobin, Arterial 98.8(H) 94.0 - 97.0 % [facility] Carboxyhemoglob in, Arterial 0.3 % [facility] Comment: Nonsmokers: 0.5-1.5% COHB Smokers: Variable, but usually less than 10% Toxic: 20-30% COHB Lethal: Greater than 60% COHB Methemoglobin, Arterial 0.3 <=1.5 % [facility] Na Whole Blood 133(L) 135 - 145 mmol/L [facility] K Whole Blood 5.8(H) 3.5 - 5.0 mmol/L [facility] Comment: Please note: Patients with WBC >100,000 may have falsely elevated Potassium levels. Contact the Clinical Chemistry Laboratory if there are any questions. ICa Whole Blood 0.92(Criti candida) 1.15 - 1.33 mmol/L [facility] Comment: Noted by medical instrument technician. Note: ??Total bilirubin higher than 20 mg/dL may lead to falsely low ionized calcium. CL Whole Blood 104 98 - 107 mmol/L [facility] Gluc Whole Bld 235(H) 65 - 199 mg/dL [facility] Comment:Diabetes: >=200 mg/d L plus symptoms. Lactate WB 2.1 0.5 - 2.2 mmol/L [facility] Blood specimen (specimen) 06/13/2020 10:25 AM EST 06/13/2020 10:25 AM EST Chun Stanton MD POINT OF CARE TEST ORDERABLES [facility] [place] [address] * Specimen to Pathology (06/13/2020 10:24 AM EST) AP Specimen 06/13/2020 10:2 4 AM EST 06/13/2020 10:24 AM EST Narrative [facility] - 06/13/2020 10:24 AM EST Specimen requisition ordered. ??Separate Pathology report to follow Chun Stanton MD PATHOLOGY/CYTOLOGY ORDERABLES [facility] [place] [address] * Surgical Pathology Report (06/13/2020 10:23 AM EST) Final Diagnosis [id number] ? Location: [facility]; [facility]; The signing pathologist has (i) examined the relevant preparation(s) for the specimen(s) and (ii) rendered or confirmed the diagnosis(es). . ?Surgical Pathology DIAGNOSIS A - Aortic Valves Leaflets, excision - Valve leaflet tissue with nodular calcific and myxoid degeneration. Electronically signed by: ??Lena Henson DO Verified: ??06/16/2020 ?Pathologist Performed at: ??-[facility] Dept. of Pathology, [place], [place] SPECIMEN(S) SUBMITTED A - Aortic Valves Leaflets, excision (Multiple) CLINICAL INFORMATION AFS, CAD SPECIMEN PROCESSING A - Labeled/Fixativ e: Aortic valve leaflets, saline. Quantity/Size: Three, ranging from 1.6 x 1.1 cm to 2.0 x 1.1 cm, up to 0.6 cm thick. Tissue Description: Intact semi-lunar valve cusps. The free edges are white and pliable. The sinuses have focal, yellow, calcified nodules. Vegetations or other lesions: Not present ??Also received is a 3.0 x 2.7 x 0.5 cm aggregate of yellow, calcified tissue fragments. Sections/Proces sing: Blocks submitted for decalcification : A1. Soft Work Cigar Machine Operator sections in 1 cassette labeled A1. ??ajw 06/16/2020 3:31 PM EST [facility] AORTIC STRUCTURE / Unknown 06/13/2020 10:23 AM EST 06/13/2020 10:23 AM EST Chun Stanton MD PATHOLOGY/CYTOLOGY ORDERABLES [facility] [place] [id number] * (ABNORMAL) BLOOD GAS 2 VENOUS (06/13/2020 9:54 AM EST) pH, Venous 7.33 7.32 - 7.42 [facility] PCO2, Venous 45 41 - 51 mmHg [facility] PO2, Venous 47(H) 25 - 40 mmHg [facility] Bicarbonate, Venous 23.1 mmol/L [facility] Base Excess, Venous -2.9 mmol/L [facility] Hgb Blood Gas 9.3(L) 13.7 - 16.5 gm/dL [facility] Oxyhemoglobin, Venous 79.5 % [facility] Carboxyhemoglob in, Venous 0.9 % [facility] Comment: Nonsmokers: 0.5-1.5% COHB Smokers: Variable, but usually less than 10% Toxic: 20-30% COHB Lethal: Greater than 60% COHB Methemoglobin, Venous 0.3 <=1.5 % [facility] Na Whole Blood 133(L) 135 - 145 mmol/L [facility] K Whole Blood 4.2 3.5 - 5.0 mmol/L [facility] Comment: Please note: Patients with WBC >100,000 may have falsely elevated Potassium levels. Contact the Clinical Chemistry Laboratory if there are any questions. ICa Whole Blood 0.97(L) 1.15 - 1.33 mmol/L [facility] Comment: Note: ??Total bilirubin higher than 20 mg/dL may lead to falsely low ionized calcium. CL Whole Blood 104 98 - 107 mmol/L [facility] Gluc Whole Bld 142 65 - 199 mg/dL [facility] Comment:Diabetes: >=200 mg/d L plus symptoms Lactate WB 1.8 0.5 - 2.2 mmol/L [facility] Blood Gas Source Venous [facility] Blood specimen (specimen) 06/13/2020 9:54 AM EST 06/13/2020 9:54 AM EST Chun Stanton MD POINT OF CARE TEST ORDERABLES [facility] [place] [address] * (ABNORMAL) BLOOD GAS 2 ARTERIAL (06/13/2020 9:51 AM EST) pH, Arterial 7.36 7.35 - 7.45 [facility] PCO2, Arterial 40 35 - 45 mmHg [facility] PO2, Arterial 374(H) 85 - 104 mmHg [facility] Bicarbonate, Arterial 22.2 20.0 - 26.0 mmol/L [facility] Base Excess, Arterial -3.2(L) -3.0 - 3.0 mmol/L [facility] Hgb Blood Gas 9.2(L) 13.7 - 16.5 gm/dL [facility] Oxyhemoglobin, Arterial 99.0(H) 94.0 - 97.0 % [facility] Carboxyhemoglob in, Arterial 0.1 % [facility] Comment: Nonsmokers: 0.5-1.5% COHB Smokers: Variable, but usually less than 10% Toxic: 20-30% COHB Lethal: Greater than 60% COHB Methemoglobin, Arterial 0.3 <=1.5 % [facility] Na Whole Blood 133(L) 135 - 145 mmol/L [facility] K Whole Blood 4.3 3.5 - 5.0 mmol/L [facility] Comment: Please note: Patients with WBC >100,000 may have falsely elevated Potassium levels. Contact the Clinical Chemistry Laboratory if there are any questions. ICa Whole Blood 0.96(L) 1.15 - 1.33 mmol/L [facility] Comment: Note: ??Total bilirubin higher than 20 mg/dL may lead to falsely low ionized calcium. CL Whole Blood 104 98 - 107 mmol/L [facility] Gluc Whole Bld 134 65 - 199 mg/dL [facility] Comment:Diabetes: >=200 mg/d L plus symptoms. Lactate WB 1.9 0.5 - 2.2 mmol/L [facility] Blood specimen (specimen) 06/13/2020 9:51 AM EST 06/13/2020 9:51 AM EST Chun Stanton MD POINT OF CARE TEST ORDERABLES [facility] [place] [address] * (ABNORMAL) BLOOD GAS 2 ARTERIAL (06/13/2020 8:19 AM EST) pH, Arterial 7.39 7.35 - 7.45 [facility] PCO2, Arterial 34(L) 35 - 45 mmHg [facility] PO2, Arterial 99 85 - 104 mmHg [facility] Bicarbonate, Arterial 20.2 20.0 - 26.0 mmol/L [facility] Base Excess, Arterial -4.8(L) -3.0 - 3.0 mmol/L [facility] Hgb Blood Gas 14.8 13.7 - 16.5 gm/dL [facility] Oxyhemoglobin, Arterial 96.4 94.0 - 97.0 % [facility] Carboxyhemoglob in, Arterial 0.6 % [facility] Comment: Nonsmokers: 0.5-1.5% COHB Smokers: Variable, but usually less than 10% Toxic: 20-30% COHB Lethal: Greater than 60% COHB Methemoglobin, Arterial 0.3 <=1.5 % [facility] Na Whole Blood 137 135 - 145 mmol/L [facility] K Whole Blood 5.0 3.5 - 5.0 mmol/L [facility] Comment: Please note: Patients with WBC >100,000 may have falsely elevated Potassium levels. Contact the Clinical Chemistry Laboratory if there are any questions. ICa Whole Blood 1.20 1.15 - 1.33 mmol/L [facility] Comment: Note: ??Total bilirubin higher than 20 mg/dL may lead to falsely low ionized calcium. CL Whole Blood 105 98 - 107 mmol/L [facility] Gluc Whole Bld 186 65 - 199 mg/dL [facility] Comment:Diabetes: >=200 mg/d L plus symptoms. Lactate WB 2.4(H) 0.5 - 2.2 mmol/L [facility] Blood specimen (specimen) 06/13/2020 8:19 AM EST 06/13/2020 8:19 AM EST Chun Stanton MD POINT OF CARE TEST ORDERABLES Performing Organization Address City/[facility]/ZIP Co de Phone Number [facility] [place] [address] * Prepare RBC (06/13/2020 6:40 AM EST) Dispensed? Yes [facility] Blood specimen (specimen) 06/13/2020 6:40 AM EST 06/13/2020 6:39 AM EST Chun Stanton MD BLOOD BANK PRODUCT ORDERABLES Performing Organization Address [facility]/ZIP Co de Phone Number [facility] [place] [address] * (ABNORMAL) POCT Glucose (06/13/2020 6:16 AM EST) Glucose, POC 215(H) 65 - 199 mg/dL [facility] Comment: Supplemental ranges: <140 mg/dL before meals <180 mg/dL all other times of the day Blood specimen (specimen) 06/13/2020 6:16 AM EST 06/13/2020 6:16 AM EST Chun Stanton MD POINT OF CARE TEST ORDERABLES [facility] [place] [address] * SCAN DOC: IMPLANTABLE DEVICES (06/13/2020 12:00 AM EST) Narrative 06/13/2020 12:00 AM EST Ordered by an unspecified provider. Scanning Provider MEDIA MGR SCAN EXT O RDR/RSLT documented in this encounter Visit Diagnoses Diagnosis S/P AVR (aortic valve replacement)- Primary Heart valve replaced by other means S/P CABG (coronary artery bypass graft) Postsurgical aortocoronary bypass status S/P AVR (aortic valve replacement) Heart valve replaced by other means CAD (coronary artery disease) Coronary atherosclerosis of unspecified type of vessel, mi'kmaq or graft S/P CABG (coronary artery bypass graft) Postsurgical aortocoronary bypass status ASCVD (arteriosclerotic cardiovascular disease) Unspecified cardiovascular disease HTN (hypertension) Unspecified essential hypertension Type 2 diabetes mellitus, without long-term current use of insulin Type 2 diabetes mellitus Type II or unspecified type diabetes mellitus without mention of complication, not stated as uncontrolled S/P CABG (coronary artery bypass graft) Postsurgical aortocoronary bypass status S/P AVR (aortic valve replacement) Heart valve replaced by other means S/P CABG (coronary artery bypass graft) Postsurgical aortocoronary bypass status S/P AVR (aortic valve replacement) Heart valve replaced by other means documented in this encounter Administered Medications Inactive Administered Medications - up to 3 most recent administrations Medication Order MAR Action Action Date Dose Rate Site acetaminophen (Ofirmev) (1000 mg/100 mL) infusion 1,000 mg 1,000 mg, Intravenous, at 400 mL/hr, Administer over 15 Minutes, EVERY 6 HOURS SCHEDULED, 4 doses, First dose on Sat06/13/20 at 1800, Last dose on Sat06/14/20 at 1200, Maximum dose of acetaminophen is 4000 mg from all sources in 24 hours. When ordered for pain, acetaminophen should be given even when other ordered pain medications are indicated., Routine, Is ketorolac (Toradol) IV contraindicated? Yes, Can this patient tolerate oral medications or suppositories? No Given 06/14/2020 11:47 AM EST 1,000 mg 400 mL/hr Given 06/14/2020 5:56 AM EST 1,000 mg 400 mL/hr Given 06/13/2020 11:39 PM EST 1,000 mg 400 mL/hr acetaminophen (Tylenol) tablet 1,000 mg 1,000 mg, Oral, ONCE, 1 dose, On Sat06/13/20 at 0645, Administer with SIP of H2O only., Day of Surgery (Day of Procedure), Routine Given 06/13/2020 6:40 AM EST 1,000 mg acetaminophen (Tylenol) tablet 1,000 mg 1,000 mg, Oral, EVERY 6 HOURS SCHEDULED, First dose on Sat06/14/20 at 1800, Until Discontinued, For pain when taking by mouth. Maximum dose of acetaminophen is 4000 mg from all sources in 24 hours. When ordered for pain, acetaminophen should be given even when other ordered pain medications are indicated., Routine Given 06/19/2020 5:37 AM EST 1,000 mg Given 06/18/2020 11:36 PM EST 1,000 mg Given 06/18/2020 5:55 PM EST 1,000 mg albumin (human) 5% 250 mL intravenous solution 12.5 g, Intravenous, EVERY 15 MIN PRN, 2 doses, Starting on Sat06/13/20 at 1414, Until Sat06/13/20 at 1848, volume replacement to maintain cardiac index greater than or equal to 2.0 L/min/M2, PRN as needed for volume replacement to maintain cardiac index greater than or equal to 2.0 L/min/M2, Recovery (Recovery-Hospital Unit), STAT New Bag 06/13/2020 6:48 PM EST 12.5 g New Bag 06/13/2020 6:23 PM EST 12.5 g AMIOdarone (Cordarone) (1.8 mg/mL) in dextrose 5% 200 mL infusion 1 mg/min (33.3333 mL/hr, rounded to 33.3 mL/hr), Intravenous, CONTINUOUS, Starting on Sat06/13/20 at 1500, Until Sat06/13/20 at 1821, Initiate loading infusion (slow): 1 mg/minute over 6 hours (pump rate= 33 mL/hour), then decrease to maintenance Infusion: 0.5 mg/minute over 18 hours (pump rate= 17 mL/hour) Rate/Dose Verify 06/13/2020 6:00 PM EST 1 mg/min 33.3 mL/hr New Bag 06/13/2020 5:09 PM EST 1 mg/min 33.3 mL/hr Rate/Dose Verify 06/13/2020 5:00 PM EST 1 mg/min 33.3 mL /hr AMIOdarone (Cordarone) (1.8 mg/mL) in dextrose 5% 200 mL infusion 1 mg/min (33.3333 mL/hr, rounded to 33.3 mL/hr), Intravenous, CONTINUOUS, Starting on Sat06/13/20 at 1915, Until Sat06/14/20 at 0810, Initiate loading infusion (slow): 1 mg/minute over 6 hours (pump rate= 33 mL/hour), then decrease to maintenance Infusion: 0.5 mg/minute over 18 hours (pump rate= 17 mL/hour) Rate/Dose Verify 06/14/2020 7:00 AM EST 0.501 mg/min 16.7 mL/hr Rate/Dose Verify 06/14/2020 6:00 AM EST 0.501 mg/min 16.7 mL/hr Rate/Dose Verify 06/14/2020 4:00 AM EST 0.501 mg/min 16.7 mL/hr aspirin EC tablet 325 mg 325 mg, Oral, DAILY, First dose on Sat06/14/20 at 0915, Until Discontinued, Routine Given 06/19/2020 8:38 AM EST 325 mg Given 06/18/2020 8:54 AM EST 325 mg Given 06/17/2020 8:19 AM EST 325 mg aspirin suppository 300 mg 300 mg, Rectal, DAILY, First dose on Sat06/13/20 at 1500, Until Discontinued, Start on Post-Op Day 0, please give within 6 hours upon arrival to Unit. Give TX if unable to take PO, Routine Given 06/13/2020 3:19 PM EST 300 mg benzonatate (Tessalon) capsule 100 mg 100 mg, Oral, 3 TIMES DAILY, First dose on Mary Beth 06/16/20 at 2100, Until Discontinued, DO NOT CRUSH OR OPEN, Routine Given 06/19/2020 8:39 AM EST 100 mg Given 06/18/2020 8:14 PM EST 100 mg Given 06/18/2020 3:18 PM EST 100 mg Dextromethorphan HBr 5 mg/5 mL oral syrup 10 mg 10 mg, Oral, EVERY 4 HOURS PRN, Cough, Starting on Mary Beth 06/16/20 at 2001, Until 06/19/20 at 1408 Given 06/18/2020 11:00 PM EST 10 mg Given 06/18/2020 6:13 AM EST 10 mg Given 06/17/2020 11:25 PM EST 10 mg dextrose 10% infusion 250 mL, at 1,000 mL/hr, Intravenous, EVERY 30 MIN PRN, Starting on Mary Beth 06/16/20 at 0929, Until 06/19/20 at 1408, For BG 50-70 mg/dL: Oral treatment preferred:?? If able to drink, give 120 mL Juice or Regular (not diet) soda OR If NPO, give 15 gram glucose 40% oral gel massaged into buccal mucosa OR if unconscious or uncooperative, give 25 gram (250 mL) Dextrose 10% IV over 15 minutes per protocol OR, if no IV access, 1 mg Glucagon IM. For BG less than 50 mg/dL: Oral treatment preferred:?? If able to drink, give 240 mL Juice or Regular (not diet) soda OR If NPO, give 30 gram glucose 40% oral gel massaged in buccal mucosa OR if unconscious or uncooperative, give 25 gram (250 mL) Dextrose 10% IV over 15 minutes per protocol OR, if no IV access, 1 mg Glucagon IM. Recheck BG in 30 minutes. May repeat juice/soda, gel, dextrose or glucagon once per episode. For persistent hypoglycemia, consider longer-acting treatment for the duration of the active insulin. fentaNYL (PF) (50 mcg/mL) infusion syringe 50 mL 0-100 mcg/hr (0-2 mL/hr), Intravenous, CONTINUOUS, Starting on 06/13/20 at 1500, Until Sat06/14/20 at 1117, Titrate to patient comfort, pain scale 1-3. Start at 25 mcg/hr, adjust by 25 mcg/hr every 15 minutes. Dose not to exceed 100 mcg/hour., Routine Rate/Dose Verify 06/14/2020 6:00 AM EST 12.5 mcg/hr 0.3 mL/hr Rate/Dose Verify 06/14/2020 4:00 AM EST 25 mcg/hr 0.5 mL/ hr Rate/Dose Verify 06/14/2020 2:00 AM EST 50 mcg/hr 1 mL/hr furosemide (Lasix) tablet 20 mg 20 mg, Oral, 2 TIMES DAILY, First dose on Sat06/15/20 at 0900, Until Discontinued, Routine Given 06/15/2020 5:01 PM EST 20 mg Given 06/15/2020 8:40 AM EST 20 mg furosemide (Lasix) tablet 40 mg 40 mg, Oral, 2 TIMES DAILY, First dose (after last modification) on Sat06/16/20 at 0915, Until Discontinued, Routine Given 06/19/2020 8:38 AM EST 40 mg Given 06/18/2020 4:37 PM EST 40 mg Given 06/18/2020 8:54 AM EST 40 mg glipiZIDE XL (Glucotrol XL) tablet 2.5 mg 2.5 mg, Oral, ONCE, 1 dose, On Sat06/17/20 at 1130, DO NOT CRUSH OR OPEN Consider holding dose if patient is not eating. , Routine Given 06/17/2020 11:39 AM EST 2.5 mg glipiZIDE XL (Glucotrol XL) tablet 5 mg 5 mg, Oral, DAILY WITH BREAKFAST, First dose (after last modification) on Mary Beth 06/16/20 at 0800, Until Discontinued, DO NOT CRUSH OR OPEN Consider holding dose if patient is not eating. , Routine Given 06/19/2020 8:39 AM EST 5 mg Given 06/18/2020 8:57 AM EST 5 mg Given 06/17/2020 10:53 AM EST 5 mg glucagon (human recombinant) injection SolR 1 mg 1 mg, Intramuscular, EVERY 30 MIN PRN, Starting on Sat06/16/20 at 0929, Until 06/19/20 at 1408, Low blood sugar, For BG 50-70 mg/dL: Oral treatment preferred:?? If able to drink, give 120 mL Juice or Regular (not diet) soda OR If NPO, give 15 gram glucose 40% oral gel massaged into buccal mucosa OR if unconscious or uncooperative, give 25 gram (250 mL) Dextrose 10% IV over 15 minutes per protocol OR, if no IV access, 1 mg Glucagon IM. For BG less than 50 mg/dL: Oral treatment preferred:?? If able to drink, give 240 mL Juice or Regular (not diet) soda OR If NPO, give 30 gram glucose 40% oral gel massaged in buccal mucosa OR if unconscious or uncooperative, give 25 gram (250 mL) Dextrose 10% IV over 15 minutes per protocol OR, if no IV access, 1 mg Glucagon IM. Recheck BG in 30 minutes. May repeat juice/soda, gel, dextrose or glucagon once per episode. For persistent hypoglycemia, consider longer-acting treatment for the duration of the active insulin., Routine glucose (GLUTOSE) 40% oral geL 15-30 g, Buccal, EVERY 30 MIN PRN, Starting on Mary Beth 06/16/20 at 0929, Until 06/19/20 at 1408, Low blood sugar, For BG 50-70 mg/dL: Oral treatment preferred:?? If able to drink, give 120 mL Juice or Regular (not diet) soda OR If NPO, give 15 gram glucose 40% oral gel massaged into buccal mucosa OR if unconscious or uncooperative, give 25 gram (250 mL) Dextrose 10% IV over 15 minutes per protocol OR, if no IV access, 1 mg Glucagon IM. For BG less than 50 mg/dL: Oral treatment preferred:?? If able to drink, give 240 mL Juice or Regular (not diet) soda OR If NPO, give 30 gram glucose 40% oral gel massaged in buccal mucosa OR if unconscious or uncooperative, give 25 gram (250 mL) Dextrose 10% IV over 15 minutes per protocol OR, if no IV access, 1 mg Glucagon IM. Recheck BG in 30 minutes. May repeat juice/soda, gel, dextrose or glucagon once per episode. For persistent hypoglycemia, consider longer-acting treatment for the duration of the active insulin. 1 tube contains 15 grams of glucose (net weight of tube = 37.5 grams., Routine guaiFENesin ER (Mucinex) tablet 600 mg 600 mg, Oral, EVERY 12 HOURS, First dose on Mary Beth 06/16/20 at 2100, Until Discontinued, DO NOT CRUSH OR OPEN, Routine Given 06/19/2020 8:38 AM EST 600 mg Given 06/18/2020 8:14 PM EST 600 mg Given 06/18/2020 8:55 AM EST 600 mg insulin glargine (Lantus) (100 unit/mL) subcutaneous injection vial 12 Units 12 Units, Subcutaneous, NIGHTLY, First dose on Sat06/15/20 at 2100, Until Discontinued, Routine Given 06/16/2020 9:14 PM EST 12 Units Given 06/15/2020 9:01 PM EST 12 Units insulin lispro (HumaLOG) (100 unit/mL) subcutaneous injection vial 0-10 Units 0-10 Units, Subcutaneous, 3 TIMES DAILY WITH MEALS, 1 dose, First dose (after last modification) on Sat06/15/20 at 1700, [employer] 1 unit of insulin for every 8 grams of carbohydrates Hold if not eating or if BG < 80, Routine Given 06/15/2020 6:40 PM EST 1 Units insulin lispro (HumaLOG) (100 unit/mL) subcutaneous injection vial 1-6 Units 1-6 Units, Subcutaneous, EVERY 4 HOURS SCHEDULED, First dose on Mary Beth 06/16/20 at 1015, Until Discontinued, CORRECTION BOLUS [1-6 Units] Moderate Sliding Scale: Correction factor 20 (1 unit of insulin [...] - If recheck BG is GREATER than 240, give 6 units and repeat BG in 2 hours (no more than 3 times) & call for new insulin orders. DO NOT hold if NPO, unless specifically told to do so. Per Blood Glucose Monitoring Policy, re-check a BG of > 240 in 2 hours., Routine Given 06/19/2020 5:38 AM EST 1 Units Given 06/18/2020 11:37 PM EST 2 Units Given 06/18/2020 8:23 PM EST 3 Units insulin lispro (HumaLOG) (100 unit/mL) subcutaneous injection vial 3-6 Units 3-6 Units, Subcutaneous, 3 TIMES DAILY WITH MEALS, First dose on Sat06/13/20 at 1700, Until Discontinued, If 50% or less of the meal is eaten, give 3 units immediately following the meal. If more than 50% of the meal is eaten, give 6 units immediately following the meal., Routine Given 06/15/2020 12:00 PM EST 3 Units Given 06/15/2020 8:43 AM EST 6 Units Given 06/14/2020 6:46 PM EST 3 Units insulin regular human (Myxredlin) (1 unit/mL) in sodium chloride 0.9% 100 mL infusion 0.5-16 Units/hr (0.5-16 mL/hr), Intravenous, CONTINUOUS, Starting on 06/13/20 at 1500, Until Mary Beth 06/16/20 at 0928, Type 2 diabetes. Current blood glucose 140 - 179 Titration- aim for target range of 140 - 180 mg/dL. Check BG every hour unless otherwise indicated. [[ No initial bolus. Begin continuous infusion at 2 units/hour. ]] If BG at the time the infusion is started outside of the CURRENT BLOOD GLUCOSE range above, contact MD for new starting rate/bolus order. When infusion is paused, turn it back on as soon as possible per protocol. If BG at the time the infusion is started is outside of the CURRENT BLOOD GLUCOSE range above, contact provider for new starting rate/bolus order. Current BG less than 80 - Stop insulin. If BG less than 70, treat per hypoglycemia protocol. Re-check BG in 30 minutes and as soon as BG is greater than 80, restart with rate 50% of previous rate. If infusion stopped after previous rate had been 0.5 unit/hour, recheck every hour and when BG greater than 100 and higher than last test restart at 0.5 unit/hour. IF INFUSION IS PAUSED, TURN IT BACK ON SOON POSSIBLE, PER PROTOCOL. Current BG 80 - 139 - If BG dropped 10 mg/dL or more since last test, decrease rate by 50% and re-check in 30 minutes. Otherwise, decrease rate by 0.5 units/hour. Current BG 140 - 180 - If BG dropped 50 mg/dL or more since last test, decrease rate by 1 unit/hour. Otherwise, maintain same rate. Current BG 181 - 220 - If BG is lower than last test, maintain same rate. Otherwise, increase rate by 0.5 units/hour. Current BG 221 - 250 - If BG dropped 30 mg/dL or more since last test, maintain same rate. Otherwise, increase rate by 1 unit/hour. Current BG greater than 250 - Increase rate by 1 unit/hour AND bolus with Regular insulin IV as per IV Bolus Scale. Re-check BG in 30 minutes. THE FIRST DOSE OF SC INSULIN OUGHT TO BE ADMINISTERED BEFORE DISCONTINUING THE INFUSION. AN OVERLAP OF 2-3 HOURS IS RECOMMENDED. Continue to monitor the BG hourly., Routine Rate/Dose Change 06/16/2020 8:36 AM EST 1 Units/hr 1 mL/hr Rate/Dose Verify 06/16/2020 7:00 AM EST 0.5 Units/hr 0.5 m L/hr Rate/Dose Change 06/16/2020 1:31 AM EST 0.5 Units/hr 0.5 m L/hr insulin regular human (Myxredlin) 1 unit/mL in sodium chloride 0.9% BOLUS 0-16 Units 0-16 Units, Intravenous, PER INSULIN PROTOCOL, Starting on 06/13/20 at 1413, Until Mary Beth 06/16/20 at 0928, Per Protocol, BOLUS order. Type 2 No Initial bolus. Adjustment bolus per insulin infusion protocol: IV insulin Bolus scale: For BG in mg/dL (250-299 = 8 units, 300-359 = 12 units, greater than 360 = 16 units), Routine Bolus from Bag 06/13/2020 5:44 PM EST 8 Units lisinopriL (Prinivil;Zestril) tablet 10 mg 10 mg, Oral, ONCE, 1 dose, On 06/19/20 at 0930, Routine Given 06/19/2020 10:33 AM EST 10 mg lisinopriL (Prinivil;Zestril) tablet 20 mg 20 mg, Oral, DAILY, First dose on Sat06/17/20 at 0945, Until Discontinued, Routine Given 06/17/2020 10:56 AM EST 20 mg lisinopriL (Prinivil;Zestril) tablet 30 mg 30 mg, Oral, DAILY, First dose (after last modification) on Sat06/18/20 at 0900, Until Discontinued, Routine Given 06/19/2020 8:38 AM EST 30 mg Given 06/18/2020 8:53 AM EST 30 mg lisinopriL (Prinivil;Zestril) tablet 40 mg 40 mg, Oral, DAILY, First dose (after last modification) on 06/20/20 at 0900, Until Discontinued, Routine magnesium hydroxide (Milk of Magnesia) (240 mg/mL) oral liquid 10 mL 10 mL, Oral, DAILY, First dose on Sat06/15/20 at 0900, Until Discontinued, Post-op day 2. Do not use with renal insufficiency., Routine Given 06/16/2020 8:4 0 AM EST 10 mLs Given 06/15/2020 8:40 AM EST 10 mLs metFORMIN (Glucophage) tablet 1,000 mg 1,000 mg, Oral, 2 TIMES DAILY WITH MEALS, First dose on Sat06/19/20 at 0800, Until Discontinued, Routine Given 06/19/2020 8:38 AM EST 1,000 mg metoprolol tartrate (Lopressor) tablet 100 mg 100 mg, Oral, EVERY 12 HOURS SCHEDULED, First dose (after last modification) on [facility] 06/16/20 at 2100, Until Discontinued, Hold for HR<60, SBP<90., Routine Given 06/19/2020 8:38 AM EST 100 mg Given 06/18/2020 8:14 PM EST 100 mg Given 06/18/2020 8:52 AM EST 100 mg metoprolol tartrate (Lopressor) tablet 25 mg 25 mg, Oral, EVERY 12 HOURS SCHEDULED, First dose on Sat06/14/20 at 0915, Until Discontinued, Routine Given 06/14/2020 8:41 AM EST 25 mg metoprolol tartrate (Lopressor) tablet 25 mg 25 mg, Oral, EVERY 8 HOURS SCHEDULED, First dose (after last modification) on Sat06/14/20 at 1215, Until Discontinued, Routine Given 06/15/2020 7:41 AM EST 25 mg Given 06/14/2020 9:20 PM EST 25 mg Given 06/14/2020 11:47 AM EST 25 mg metoprolol tartrate (Lopressor) tablet 25 mg 25 mg, Oral, ONCE, 1 dose, On Sat06/15/20 at 0900, Routine Given 06/15/2020 8:40 AM EST 25 mg metoprolol tartrate (Lopressor) tablet 50 mg 50 mg, Oral, EVERY 8 HOURS SCHEDULED, First dose (after last modification) on Sat06/15/20 at 1400, Until Discontinued, Routine Given 06/16/2020 5:32 AM EST 50 mg Given 06/15/2020 9:01 PM EST 50 mg Given 06/15/2020 1:25 PM EST 50 mg metoprolol tartrate (Lopressor) tablet 50 mg 50 mg, Oral, ONCE, 1 dose, On Mary Beth 06/16/20 at 0915, Routine Given 06/16/2020 8:40 AM EST 50 mg nitroGLYcerin (200 mcg/mL) in dextrose 5% 250 mL infusion 0-200 mcg/min (0-60 mL/hr), Intravenous, CONTINUOUS, Starting on Sat06/13/20 at 1500, Until 06/15/20 at 0243, For hypertension. Titrate to keep systolic blood pressure less than 120 mmHg. Initiate at 25 mcg/min. Adjust by 25 mcg/min every 5 minutes. Dose not to exceed 200 mcg/minute., Routine Rate/Dose Change 06/14/2020 12:00 PM EST 20 mcg/min 6 mL/hr Rate/Dose Verify 06/14/2020 10:00 AM EST 40 mcg/min 12 mL/ hr Rate/Dose Change 06/14/2020 9:45 AM EST 40 mcg/min 12 mL/h r NORepinephrine 16 mcg/mL (standard ADULT and Pedi greater than 20 kg) infusion 0-30 mcg/min (0-112.5 mL/hr), Intravenous, CONTINUOUS, Starting on Sat06/13/20 at 1500, Until 06/15/20 at 0243, Titrate to keep systolic blood pressure greater than 90 mmHg. Start at 2 mcg/minute and adjust by 2 mcg/min every 3 minutes. Dose not to exceed 30 mcg/minute. Begin if PHENYLephrine and/or vasopressin ineffective. Call pager # [phone] if initiated., Routine Rate/Dose Change 06/13/2020 3:34 PM EST 2 mcg/min 7.5 mL/hr Restarted 06/13/2020 3:24 PM EST 2 mcg/min 7.5 mL/hr Continued Bag 06/13/2020 2:59 PM EST 2 mcg/min 7.5 mL/hr ondansetron (pf) (Zofran) (2 mg/mL) injection 4 mg 4 mg, Intravenous, EVERY 8 HOURS PRN, Starting on 06/13/20 at 1413, Until 06/19/20 at 1408, Nausea Given 06/15/2020 10:53 AM EST 4 mg Given 06/14/2020 8:41 AM EST 4 mg Given 06/13/2020 7:21 PM EST 4 mg oxyCODONE (Roxicodone) tablet 5-10 mg 5-10 mg, Oral, EVERY 4 HOURS PRN, Starting on Sat06/13/20 at 1413, Until Sat06/19/20 at 1408, Pain, - When tolerating oral medications. - Initial dose 5 mg. - If pain control not adequate in 60 minutes, give additional 5 mg., Routine Given 06/15/2020 1:34 AM EST 5 mg Given 06/15/2020 12:28 AM EST 5 mg Given 06/14/2020 8:24 PM EST 5 mg pantoprazole (Protonix) injection 40 mg 40 mg, Intravenous, DAILY, First dose on Sat06/13/20 at 1500, Until Discontinued, Reconstitute with 10 mL of normal saline to a concentration of 4 mg/mL and infuse slowly over 2 minutes. , Routine Given 06/13/2020 2:50 PM EST 40 mg pantoprazole EC (Protonix) tablet 40 mg 40 mg, Oral, DAILY, First dose on Sat06/13/20 at 1500, Until Discontinued, DO NOT CRUSH OR OPEN If unable to take PO, may give IV Given 06/19/2020 8:38 AM EST 40 mg Given 06/18/2020 8:54 AM EST 40 mg Given 06/17/2020 8:19 AM EST 40 mg potassium chloride ER (K-Dur/Klor-Con) tablet 10 mEq 10 mEq, Oral, ONCE, 1 dose, On Sat06/17/20 at 0715, Routine Given 06/17/2020 8:18 AM EST 10 mEq potassium chloride ER (K-Dur/Klor-Con) tablet 30 mEq 30 mEq, Oral, ONCE, 1 dose, On Sat06/18/20 at 0730, Routine Given 06/18/2020 8:55 AM EST 30 mEq propofoL (Diprivan) infusion 0-50 mcg/kg/min ? 79.4 kg (0-23.82 mL/hr, rounded to 0-23.8 mL/hr), Intravenous, CONTINUOUS, Starting on Sat06/13/20 at 1500, Until Sat06/14/20 at 1117, Titrate to sedation level of RASS Goal (-) 1. Start at 10 mcg/kg/min, adjust rate by 5 mcg/kg/min every 3 minutes. Dose not to exceed 50 mcg/kg/minute. Discontinue upon extubation., Routine Rate/Dose Change 06/13/2020 3:37 PM EST 20 mcg/kg/min 9.5 mL/hr Rate/Dose Verify 06/13/2020 3:30 PM EST 30.017 mcg/kg/min 14.3 mL/hr Rate/Dose Change 06/13/2020 3:29 PM EST 30 mcg/kg/min 14.3 mL/hr rosuvastatin (Crestor) tablet 40 mg 40 mg, Oral, EVERY EVENING, First dose on Sat06/13/20 at 1700, Until Discontinued, Routine Given 06/18/2020 4:3 7 PM EST 40 mg Given 06/17/2020 4:45 PM EST 40 mg Given 06/16/2020 4:18 PM EST 40 mg senna-docusate (Pericolace) 8.6-50 mg per tablet 2 tablet 2 tablet, Oral, DAILY, First dose on Sat06/14/20 at 2100, Until Discontinued, Post-op day 1, Routine Given 06/15/2020 9:01 PM EST 2 tablets Given 06/14/2020 8:25 PM EST 2 tablets sodium chloride 0.9 % (flush) flush 5 mL 5 mL, Intravenous, EVERY 8 HOURS, First dose on Sat06/14/20 at 1600, Until Discontinued, Routine Given 06/18/2020 3:20 PM EST 5 mLs Given 06/18/2020 8:55 AM EST 5 mLs Given 06/18/2020 12:00 AM EST 5 mLs sodium chloride 0.9% infusion 0-500 mL/hr, Intravenous, CONTINUOUS, Starting on Sat06/13/20 at 1500, Until Sat06/14/20 at 0810, Bolus 250 mL every 5 minutes as needed for volume replacement to maintain cardiac index greater than or equal to 2.0 L/min/M2. Maximum volume 2 L. Call house mover for additional fluid orders: pager #[phone]. Rate/Dose Verify 06/13/2020 4:00 PM EST 50 mL/hr 50 mL/hr Rate/Dose Verify 06/13/2020 3:30 PM EST 50 mL/hr 50 mL/h r New Bag 06/13/2020 1:45 PM EST 50 mL/hr 50 mL/hr sodium chloride 0.9% infusion 10-30 mL/hr, Intravenous, DAILY PRN, Starting on Sat06/13/20 at 1413, Until Sat06/14/20 at 1509, Side port TKO rate, per [facility] nursing protocol. Rate/Dose Verify 06/14/2020 4:00 AM EST 30 mL/hr 30 mL/hr Rate/Dose Verify 06/14/2020 2:00 AM EST 30 mL/hr 30 mL/h r Rate/Dose Verify 06/14/2020 12:00 AM EST 30 mL/hr 30 mL/ hr sodium chloride 0.9% infusion 10-30 mL/hr, Intravenous, DAILY PRN, Starting on Sat06/13/20 at 1413, Until Sat06/14/20 at 1509, Side port TKO rate, per [facility] nrusing protocol. Rate/Dose Verify 06/14/2020 12:00 PM EST 30 mL/hr 30 mL/hr Rate/Dose Verify 06/14/2020 10:00 AM EST 30 mL/hr 30 mL/ hr Rate/Dose Verify 06/14/2020 8:00 AM EST 30 mL/hr 30 mL/h r documented in this encounter Active and Recently Administered Medications Times are shown in EST. Scheduled Medication Order 06/17/2020 06/18/2020 06/19/2020 acetaminophen (Tylenol) tablet 1,000 mg(Linked Group 1) 1,000 mg, Oral, EVERY 6 HOURS SCHEDULED, First dose on Sat06/14/20 at 1800, Until Discontinued, For pain when taking by mouth. Maximum dose of acetaminophen is 4000 mg from all sources in 24 hours. When ordered for pain, acetaminophen should be given even when other ordered pain medications are indicated., Routine 0600 (Not Given - Provider: Nicole Domínguez RN - Reason: Patient/family refused)1138 (Given - Provider: Emili Escobar RN)1841 (Given - Provider: Emili Escobar RN) 0000 (Not Given - Provider: Nicole Domínguez RN - Reason: Patient/family refused)0600 (Not Given - Provider: Nicole Domínguez RN - Reason: Patient/family refused)1202 (Given - Provider: Alex Glover RN)1755 (Given - Provider: Alex Glover, MOISES)2336 (Given - Provider: Jose Buckley RN) 0537 (Given - Provider: Jose Buckley RN)1200 (Due) aspirin EC tablet 325 mg 325 mg, Oral, DAILY, First dose on Sat06/14/20 at 0915, Until Discontinued, Routine 0819 (Given - Provider: Emili Escobar RN) 0854 (Given - Provider: Alex Glover RN) 0838 (Given - Provider: Margaux Jones RN) benzonatate (Tessalon) capsule 100 mg 100 mg, Oral, 3 TIMES DAILY, First dose on Sat06/16/20 at 2100, Until Discontinued, DO NOT CRUSH OR OPEN, Routine 0819 (Given - Provider: Emili Escobar RN)1548 (Given - Provider: Emili Escobar RN)2052 (Given - Provider: Nicole Domínguez RN) 0854 (Given - Provider: Alex Glover RN)1518 (Given - Provider: Alex Glover RN)2013 (Given - Provider: Jose Buckley RN) 0839 (Given - Provider: Margaux Jones RN) furosemide (Lasix) tablet 40 mg 40 mg, Oral, 2 TIMES DAILY, First dose (after last modification) on Sat06/16/20 at 0915, Until Discontinued, Routine 0819 (Given - Provider: Emili Escobar RN)1645 (Given - Provider: Emili Escobar RN) 0854 (Given - Provider: Alex Glover RN)1637 (Given - Provider: Alex Glover RN) 0838 (Given - Provider: Margaux Jones RN) glipiZIDE XL (Glucotrol XL) tablet 2.5 mg (COMPLETED) 2.5 mg, Oral, ONCE, 1 dose, On Sat06/17/20 at 1130, DO NOT CRUSH OR OPEN Consider holding dose if patient is not eating. , Routine 1139 (Given - Provider: Emili Escobar RN) glipiZIDE XL (Glucotrol XL) tablet 5 mg 5 mg, Oral, DAILY WITH BREAKFAST, First dose (after last modification) on Sat06/16/20 at 0800, Until Discontinued, DO NOT CRUSH OR OPEN Consider holding dose if patient is not eating. , Routine 1053 (Given - Provider: Emili Escobar RN - Comment: med not available at 0900) 0857 (Given - Provider: Alex Glover RN) 0839 (Given - Provider: Margaux Jones, RN) guaiFENesin ER (Mucinex) tablet 600 mg 600 mg, Oral, EVERY 12 HOURS, First dose on Mary Beth 06/16/20 at 2100, Until Discontinued, DO NOT CRUSH OR OPEN, Routine 0818 (Given - Provider: Emili Escobar RN)2051 (Given - Provider: Nicole Domínguez, MOISES) 0855 (Given - Provider: Alex Glover RN)2013 (Given - Provider: Jose Buckley RN) 0838 (Given - Provider: Margaux Jones RN) insulin lispro (HumaLOG) (100 unit/mL) subcutaneous injection vial 1-6 Units(Linked Group 2) 1-6 Units, Subcutaneous, EVERY 4 HOURS SCHEDULED, First dose on Mary Beth 06/16/20 at 1015, Until Discontinued, CORRECTION BOLUS [1-6 Units] Moderate Sliding Scale: Correction factor 20 (1 unit of insulin [...] - If recheck BG is GREATER than 240, give 6 units and repeat BG in 2 hours (no more than 3 times) & call for new insulin orders. DO NOT hold if NPO, unless specifically told to do so. Per Blood Glucose Monitoring Policy, re-check a BG of > 240 in 2 hours., Routine 0444 (Given - Provider: Nicole Domínguez RN)0818 (Given - Provider: Emili Escobar RN)1138 (Given - Provider: Emili Escobar RN)1646 (Given - Provider: Emili Escobar RN)2050 (Given - Provider: Nicole Domínguez, MOISES)2325 (Given - Provider: Nicole Domínguez RN) 0405 (Given - Provider: Nicole Domínguez RN)0850 (Given - Provider: Alex Glover RN - Comment: BG 185 per order gave 3 units)1203 (Given - Provider: Alex Glover RN - Comment: BG 220 per order gave 4 units)1518 (Given - Provider: Alex Glover RN - Comment: BG 145, gave 1 unit)202 (Given - Provider: Jose Buckley RN)2337 (Given - Provider: Jose Buckley RN) 0538 (Given - Provider: Jose Buckley RN)0800 (Not Given - Provider: Margaux Jones RN - Reason: Order parameters not met)1200 (Due) lisinopriL (Prinivil;Zestril) tablet 10 mg (COMPLETED) 10 mg, Oral, ONCE, 1 dose, On 06/19/20 at 0930, Routine 1033 (Given - Provider: Margaux Jones RN) lisinopriL (Prinivil;Zestril) tablet 20 mg (CANCELED) 20 mg, Oral, DAILY, First dose on Sat06/17/20 at 0945, Until Discontinued, Routine 1056 (Given - Provider: Emili Escobar RN) lisinopriL (Prinivil;Zestril) tablet 30 mg (CANCELED) 30 mg, Oral, DAILY, First dose (after last modification) on 06/18/20 at 0900, Until Discontinued, Routine 0853 (Given - Provider: Alex Glover RN) 0838 (Given - Provider: Margaux Jones RN) lisinopriL (Prinivil;Zestril) tablet 40 mg 40 mg, Oral, DAILY, First dose (after last modification) on 06/20/20 at 0900, Until Discontinued, Routine metFORMIN (Glucophage) tablet 1,000 mg 1,000 mg, Oral, 2 TIMES DAILY WITH MEALS, First dose on 06/19/20 at 0800, Until Discontinued, Routine 0838 (Given - Provider: Margaux Jones RN) metoprolol tartrate (Lopressor) tablet 100 mg 100 mg, Oral, EVERY 12 HOURS SCHEDULED, First dose (after last modification) on Mary Beth 06/16/20 at 2100, Until Discontinued, Hold for HR<60, SBP<90., Routine 0819 (Given - Provider: Emili Escobar RN)2051 (Given - Provider: Nicole Domínguez RN) 0852 (Given - Provider: Alex Glover RN)2013 (Given - Provider: Jose Buckley, MOISES) 0838 (Given - Provider: Margaux Jones, RN) pantoprazole EC (Protonix) tablet 40 mg(Linked Group 3) 40 mg, Oral, DAILY, First dose on Sat06/13/20 at 1500, Until Discontinued, DO NOT CRUSH OR OPEN If unable to take PO, may give IV 0819 (Given - Provider: Emili Escobar RN) 0854 (Given - Provider: Alex Glover RN) 0838 (Given - Provider: Margaux Jones RN) potassium chloride ER (K-Dur/Klor-Con) tablet 10 mEq (COMPLETED) 10 mEq, Oral, ONCE, 1 dose, On Sat06/17/20 at 0715, Routine 0818 (Given - Provider: Emili Escobar RN) potassium chloride ER (K-Dur/Klor-Con) tablet 30 mEq (COMPLETED) 30 mEq, Oral, ONCE, 1 dose, On Sat06/18/20 at 0730, Routine 0855 (Given - Provider: Alex Glover RN) rosuvastatin (Crestor) tablet 40 mg 40 mg, Oral, EVERY EVENING, First dose on Sat06/13/20 at 1700, Until Discontinued, Routine 1645 (Given - Provider: Emili Escobar RN) 1637 (Given - Provider: Alex Glover RN) sodium chloride 0.9 % (flush) flush 5 mL 5 mL, Intravenous, EVERY 8 HOURS, First dose on Sat06/14/20 at 1600, Until Discontinued, Routine 0800 (Given - Provider: Emili Escobar RN)1600 (Given - Provider: Emili Escobar RN) 0000 (Given - Provider: Nicole Domínguze RN)0855 (Given - Provider: Alex Glover RN)1520 (Given - Provider: Alex Glover RN) 0000 (Not Given - Provider: Jose Buckley RN - Reason: Patient/family refused)0800 (Not Given - Provider: Margaux Jones RN - Reason: Order parameters not met) PRN Medication Order 06/17/2020 06/18/2020 06/19/2020 Dextromethorphan HBr 5 mg/5 mL oral syrup 10 mg 10 mg, Oral, EVERY 4 HOURS PRN, Cough, Starting on Mary Beth 06/16/20 at 2001, Until 06/19/20 at 1408 0059 (Given - Provider: Nicole Domínguez RN)2325 (Given - Provider: Nicole Domínguez RN) 0613 (Given - Provider: Nicole Domínguez RN)2300 (Given - Provider: Jose Buckley RN) dextrose 10% infusion(Linked Group 4) 250 mL, at 1,000 mL/hr, Intravenous, EVERY 30 MIN PRN, Starting on Mary Beth 06/16/20 at 0929, Until 06/19/20 at 1408, For BG 50-70 mg/dL: Oral treatment preferred:?? If able to drink, give 120 mL Juice or Regular (not diet) soda OR If NPO, give 15 gram glucose 40% oral gel massaged into buccal mucosa OR if unconscious or uncooperative, give 25 gram (250 mL) Dextrose 10% IV over 15 minutes per protocol OR, if no IV access, 1 mg Glucagon IM. For BG less than 50 mg/dL: Oral treatment preferred:?? If able to drink, give 240 mL Juice or Regular (not diet) soda OR If NPO, give 30 gram glucose 40% oral gel massaged in buccal mucosa OR if unconscious or uncooperative, give 25 gram (250 mL) Dextrose 10% IV over 15 minutes per protocol OR, if no IV access, 1 mg Glucagon IM. Recheck BG in 30 minutes. May repeat juice/soda, gel, dextrose or glucagon once per episode. For persistent hypoglycemia, consider longer-acting treatment for the duration of the active insulin. glucagon (human recombinant) injection SolR 1 mg(Linked Group 4) 1 mg, Intramuscular, EVERY 30 MIN PRN, Starting on Mary Beth 06/16/20 at 0929, Until 06/19/20 at 1408, Low blood sugar, For BG 50-70 mg/dL: Oral treatment preferred:?? If able to drink, give 120 mL Juice or Regular (not diet) soda OR If NPO, give 15 gram glucose 40% oral gel massaged into buccal mucosa OR if unconscious or uncooperative, give 25 gram (250 mL) Dextrose 10% IV over 15 minutes per protocol OR, if no IV access, 1 mg Glucagon IM. For BG less than 50 mg/dL: Oral treatment preferred:?? If able to drink, give 240 mL Juice or Regular (not diet) soda OR If NPO, give 30 gram glucose 40% oral gel massaged in buccal mucosa OR if unconscious or uncooperative, give 25 gram (250 mL) Dextrose 10% IV over 15 minutes per protocol OR, if no IV access, 1 mg Glucagon IM. Recheck BG in 30 minutes. May repeat juice/soda, gel, dextrose or glucagon once per episode. For persistent hypoglycemia, consider longer-acting treatment for the duration of the active insulin., Routine glucose (GLUTOSE) 40% oral geL(Linked Group 4) 15-30 g, Buccal, EVERY 30 MIN PRN, Starting on Mary Beth 06/16/20 at 0929, Until 06/19/20 at 1408, Low blood sugar, For BG 50-70 mg/dL: Oral treatment preferred:?? If able to drink, give 120 mL Juice or Regular (not diet) soda OR If NPO, give 15 gram glucose 40% oral gel massaged into buccal mucosa OR if unconscious or uncooperative, give 25 gram (250 mL) Dextrose 10% IV over 15 minutes per protocol OR, if no IV access, 1 mg Glucagon IM. For BG less than 50 mg/dL: Oral treatment preferred:?? If able to drink, give 240 mL Juice or Regular (not diet) soda OR If NPO, give 30 gram glucose 40% oral gel massaged in buccal mucosa OR if unconscious or uncooperative, give 25 gram (250 mL) Dextrose 10% IV over 15 minutes per protocol OR, if no IV access, 1 mg Glucagon IM. Recheck BG in 30 minutes. May repeat juice/soda, gel, dextrose or glucagon once per episode. For persistent hypoglycemia, consider longer-acting treatment for the duration of the active insulin. 1 tube contains 15 grams of glucose (net weight of tube = 37.5 grams., Routine ondansetron (pf) (Zofran) (2 mg/mL) injection 4 mg 4 mg, Intravenous, EVERY 8 HOURS PRN, Starting on 06/13/20 at 1413, Until 06/19/20 at 1408, Nausea oxyCODONE (Roxicodone) tablet 5-10 mg 5-10 mg, Oral, EVERY 4 HOURS PRN, Starting on Sat06/13/20 at 1413, Until Sat06/19/20 at 1408, Pain, - When tolerating oral medications. - Initial dose 5 mg. - If pain control not adequate in 60 minutes, give additional 5 mg., Routine Linked Groups Order Group 1: acetaminophen (Ofirmev) (1000 mg/100 mL) infusion 1,000 mg (COMPLETED) 1,000 mg, Intravenous, at 400 mL/hr, Administer over 15 Minutes, EVERY 6 HOURS SCHEDULED, 4 doses, First dose on Sat06/13/20 at 1800, Last dose on Sat06/14/20 at 1200, Maximum dose of acetaminophen is 4000 mg from all sources in 24 hours. When ordered for pain, acetaminophen should be given even when other ordered pain medications are indicated., Routine, Is ketorolac (Toradol) IV contraindicated? Yes, Can this patient tolerate oral medications or suppositories? No Followed by acetaminophen (Tylenol) tablet 1,000 mgJump to med 1,000 mg, Oral, EVERY 6 HOURS SCHEDULED, First dose on Sat06/14/20 at 1800, Until Discontinued, For pain when taking by mouth. Maximum dose of acetaminophen is 4000 mg from all sources in 24 hours. When ordered for pain, acetaminophen should be given even when other ordered pain medications are indicated., Routine Group 2: POCT Fingerstick Glucose (CANCELED) Routine, EVERY 4 HOURS, First occurrence on Sat06/16/20 at 0935, Until Specified, Consider choosing EVERY 4 HOURS as frequency for: - Type 1 Diabetes - At least 24 hours after coming off an insulin drip - At least 24 hours after admission for DKA - Hypoglycemia unawareness - Patients who are otherwise unstable Select the same frequency for the correction bolus insulin order And insulin lispro (HumaLOG) (100 unit/mL) subcutaneous injection vial 1-6 UnitsJump to med 1-6 Units, Subcutaneous, EVERY 4 HOURS SCHEDULED, First dose on Sat06/16/20 at 1015, Until Discontinued, CORRECTION BOLUS [1-6 Units] Moderate Sliding Scale: Correction factor 20 (1 unit of insulin [...] - If recheck BG is GREATER than 240, give 6 units and repeat BG in 2 hours (no more than 3 times) & call for new insulin orders. DO NOT hold if NPO, unless specifically told to do so. Per Blood Glucose Monitoring Policy, re-check a BG of > 240 in 2 hours., Routine Group 3: pantoprazole EC (Protonix) tablet 40 mgJump to med 40 mg, Oral, DAILY, First dose on Sat06/13/20 at 1500, Until Discontinued, DO NOT CRUSH OR OPEN If unable to take PO, may give IV Or pantoprazole (Protonix) injection 40 mg (CANCELED) 40 mg, Intravenous, DAILY, First dose on Sat06/13/20 at 1500, Until Discontinued, Reconstitute with 10 mL of normal saline to a concentration of 4 mg/mL and infuse slowly over 2 minutes. , Routine Group 4: glucose (GLUTOSE) 40% oral geLJump to med 15-30 g, Buccal, EVERY 30 MIN PRN, Starting on Mary Beth 06/16/20 at 0929, Until 06/19/20 at 1408, Low blood sugar, For BG 50-70 mg/dL: Oral treatment preferred:?? If able to drink, give 120 mL Juice or Regular (not diet) soda OR If NPO, give 15 gram glucose 40% oral gel massaged into buccal mucosa OR if unconscious or uncooperative, give 25 gram (250 mL) Dextrose 10% IV over 15 minutes per protocol OR, if no IV access, 1 mg Glucagon IM. For BG less than 50 mg/dL: Oral treatment preferred:?? If able to drink, give 240 mL Juice or Regular (not diet) soda OR If NPO, give 30 gram glucose 40% oral gel massaged in buccal mucosa OR if unconscious or uncooperative, give 25 gram (250 mL) Dextrose 10% IV over 15 minutes per protocol OR, if no IV access, 1 mg Glucagon IM. Recheck BG in 30 minutes. May repeat juice/soda, gel, dextrose or glucagon once per episode. For persistent hypoglycemia, consider longer-acting treatment for the duration of the active insulin. 1 tube contains 15 grams of glucose (net weight of tube = 37.5 grams., Routine Or dextrose 10% infusionJump to med 250 mL, at 1,000 mL/hr, Intravenous, EVERY 30 MIN PRN, Starting on Mary Beth 06/16/20 at 0929, Until 06/19/20 at 1408, For BG 50-70 mg/dL: Oral treatment preferred:?? If able to drink, give 120 mL Juice or Regular (not diet) soda OR If NPO, give 15 gram glucose 40% oral gel massaged into buccal mucosa OR if unconscious or uncooperative, give 25 gram (250 mL) Dextrose 10% IV over 15 minutes per protocol OR, if no IV access, 1 mg Glucagon IM. For BG less than 50 mg/dL: Oral treatment preferred:?? If able to drink, give 240 mL Juice or Regular (not diet) soda OR If NPO, give 30 gram glucose 40% oral gel massaged in buccal mucosa OR if unconscious or uncooperative, give 25 gram (250 mL) Dextrose 10% IV over 15 minutes per protocol OR, if no IV access, 1 mg Glucagon IM. Recheck BG in 30 minutes. May repeat juice/soda, gel, dextrose or glucagon once per episode. For persistent hypoglycemia, consider longer-acting treatment for the duration of the active insulin. Or glucagon (human recombinant) injection SolR 1 mgJump to med 1 mg, Intramuscular, EVERY 30 MIN PRN, Starting on Mary Beth 06/16/20 at 0929, Until 06/19/20 at 1408, Low blood sugar, For BG 50-70 mg/dL: Oral treatment preferred:?? If able to drink, give 120 mL Juice or Regular (not diet) soda OR If NPO, give 15 gram glucose 40% oral gel massaged into buccal mucosa OR if unconscious or uncooperative, give 25 gram (250 mL) Dextrose 10% IV over 15 minutes per protocol OR, if no IV access, 1 mg Glucagon IM. For BG less than 50 mg/dL: Oral treatment preferred:?? If able to drink, give 240 mL Juice or Regular (not diet) soda OR If NPO, give 30 gram glucose 40% oral gel massaged in buccal mucosa OR if unconscious or uncooperative, give 25 gram (250 mL) Dextrose 10% IV over 15 minutes per protocol OR, if no IV access, 1 mg Glucagon IM. Recheck BG in 30 minutes. May repeat juice/soda, gel, dextrose or glucagon once per episode. For persistent hypoglycemia, consider longer-acting treatment for the duration of the active insulin., Routine documented in this encounter Care Teams Health Therapist Relationship Specialty Start Date End Date Ramiro Ball MD [address] [place] [id number] PCP - General 06/06/10 02/17/24 documented as of this encounter
--- OUTSIDE RECORDS SUMMARY | 2024-03-26 15:54 | XMS_ITS | Encounter Summary ---
[place] [address] Care Team Providers Care Systems Engineer Name Role Phone Ramiro Ball MD Primary Care Provider [phone] Encounter Details Date Type Department Care Team (Late Contact Info) Description 06/11/2020 [place] [address] Maria Del Carmen Bazan CCMA Social History Tobacco Use Types Packs/Day Years [...] encounter Miscellaneous Notes * Telephone Encounter - Maria Del Carmen Bazan CCMA - 06/11/2020 9:15 AM EST Telephone call placed to let the patient know with the covid19 test done. Test results is negative.Patient no further questions asked. documented in this encounter Plan of Treatment Upcoming Encounters Date Type Department Care Team (Late Contact Info) Description 08/27/2024 2:30 PM EST Office [place] [address] Susanna Cm, [employer] [facility] [place] [address] documented as of this encounter Visit Diagnoses Not on filedocumented in this encounter Care Teams Systems Engineer Relationship Specialty Start Date End Date Ramiro Ball MD [address] [place] [id number] PCP - General 06/06/10 02/17/24 documented as of this encounter
--- OUTSIDE RECORDS SUMMARY | 2024-03-26 15:54 | XMS_ITS | Encounter Summary ---
[place] [address] Care Team Providers Care Music Agent Name Role Phone Ramiro Ball MD Primary Care Provider [phone] Encounter Details Date Type Department Care Team (Late st Contact Info) Description 06/06/2020 [place] [phone] Sujatha Carter Social History Tobacco Use Types Packs/Day Years [...] encounter Miscellaneous Notes * Telephone Encounter - Leigha Gonzalez V - 06/07/2020 1:25 PM EST 1. ASK: TRAVEL ???Have you travelled outside of [place] ([place], [place], [place], [place], [place], [place]) in the past 14 days??? 2. ASK: EXPOSURE Have you been in contact with anyone suspected or confirmed to have COVID-19 in the past 14 days??? 3. ASK: SYMPTOMS Do you have any new or worsening symptoms on this list that are not related to another medical condition? Fever or chills ?? Cough ?? Shortness of breath or difficulty breathing ?? Fatigue ?? Muscle or body aches ?? Headache ?? Loss of taste or smell ?? Sore throat ?? Congestion or runny nose ?? Nausea or vomiting ?? Diarrhea If 'Yes' to any of the questions above Transfer patient to the Covid-19 Hotline Number ([phone]) for further instructions. If 'No' to all of the questions above Is this the first test for Covid 19 Yes If no, please list date of previous test, result, and type of test (Molecular, Antigen, Antibody orunknown): Resides in fdc, senior care or other residential facility No Employee or Household Member of Employee No Healthcare Worker No Schedule appointment: Give directions to testing facility. Please advise patient that all passengers in the vehicle must wear a mask and to please either leave their dogs at home or have them crated/behind a net. Telephone call placed/received to schedule Covid 19 testing with patient. Ordering provider: Dr. Wiley Testing Facility: [facility] Date of Testin/27 Time of Testin:00a Symptoms: none. * Telephone Encounter - Sujatha Almanzar - 06/06/2020 9:27 AM EST Unable to reach patient. Patient's phone line stated We're sorry your call can not be put through, please try again. Tried x3 Patient is needing COVID test for 06/13 procedure. Test needs to be completed on 06/10. documented in this encounter Plan of Treatment Upcoming Encounters Date Type Department Care Team (Late st Contact Info) Description 08/27/2024 2:30 PM EST [place] [phone] Susanna Cm APRN [facility] [address] documented as of this encounter Visit Diagnoses Not on filedocumented in this encounter Care Teams Music Agent Relationship Specialty Start Date End Date Ramiro Ball MD [address] [place] [address] PCP - General 06/06/10 02/17/24 documented as of this encounter
--- OUTSIDE RECORDS SUMMARY | 2024-03-26 15:54 | XMS_ITS | Encounter Summary ---
Author Organization [facility] Address [facility] Miguel [facility] [place] [address] Care Team Providers Care Tab Cutting Machine Operator Name Role Phone Ramiro Ball MD Primary Care Provider [phone] Reason for Visit * Auth/Cert Specialty Diagnoses / Procedures Referred By Luca beltran Referred To Contact Diagnoses CAD (coronary artery [...] Expiration Date Visits Re quested Visits Authorized [id number] 1 1 Encounter Details Date Type Department Care Team (Late st Contact Info) Description 06/13/2020 7:29 AM EST Anesthesia Event [place] [phone] Marianna Torres MD [facility] [place] [address] Sarahi Avery MD [facility] [place] [address] Anesthesia Record Procedure Summary Procedure Name Responsible Anesthesiologist Anesthesia Start Time Anesthesia Stop Time @REPLACE AORTIC VALVE, OPEN, W\CPB, W\PROSTHETIC VALVE (WRVU 41.32) (Chest) Marianna Torres MD 06/13/20 0729 06/13/20 1339 Events Date Time Event Comment 06/13/2020 0719 0729 AN Verify 0729 Start 0729 An Start Data 0741 An Induction 0800 An Intubation 0803 DEBORAH PROBE ONLY 0812 Anesthesia Ready 0836 Procedure Start 0841 Sternotomy 0943 CV Bypass init 0948 Quick Note CVP is coronary sinus cannula 0950 An Clamp start 1144 Rewarming 1204 An Clamp Remove 1231 CP Bypass Ended 1305 Chest Closed 1323 Procedure Stop 1334 an stop data 1338 Recovery or ICU Handoff Essence ent care was transferred to the destination unit staff after review of the patient's medical history, current anesthetic/surgical status and plan, according to the Provider Handoff Checklist. 1339 Stop Meds Name Total Midazolam 3 mg fentaNYL 750 mcg Propofol 140 mg PHENYLephrine INF 3,640 mcg Vecuronium 30 mg Heparin 30,000 Units Protamine 260 mg Tranexamic Acid 790 mg Tranexamic Acid INF 337.45 mg Insulin Regular Human 12 Units Insulin Regular INF 9.97 Units Vancomycin 1 g cefTRIAXone 2 g EPINEPHrine INF 49 mcg Vasopressin INF 3.76 Units NORepinephrine INF 257 mcg AMIOdarone (Cordarone) 450 mg in dextros e 5% 250 mL infusion 79 mg Sodium Chloride 0.9% 1,100 mL Sodium Chloride 0.9% 500 mL Lactated Ringers 800 mL * Agents Name O2 Air N2O Isoflurane (et) * Blood No blood administrations on file. Lines, Drains, and Airways Type Details Placement Removal (RETIRED) Peripheral IV Line - Single Lumen 06/13/20; 654; metacarpal vein (top of hand), right; [id number] catheter system; 20 gauge; Michael Brewer RN; distraction, tolerated well, appears comfortable; 0; lumen/catheter not patent, catheter/device intact; 06/17/20; 212706/13/20654 by Alen Brewer RN 06/17/202127 by Angelika, Carl F, RN ETT Mask Ventilation: Ad junct (2); ETT Type: Cuffed, Oral; ETT Size: 7.5 mm; Mac Blade: 4; Exchange: Bougie; Indirect: Video; Notes: Asleep, Pre-O2, Cricoid Pressure, Stylette; Attempts: >3; Laryngoscopy Grade: 2; ETT Placement Verified By: Capnometry, Visual; Secured at Teeth: 24 cm; Inserted by: Bennie DIEZ; Removal Date: 06/13/20; Removal Time: 163006/13/20 08 by Sarahi Avery MD 06/13/20 163 by Ramon Lucero RCP Urethral Catheter 06/13/20; 08; Surg eri longer than 2 hours, Need for intraoperative urine output monitoring; hydrophilic coated, latex; 14; inserted at this facility; 1; 5; 10; urethral catheter removed; by MANAGER REPORT; 06/15/20; 1014 06/13/20 08 by Noemi Villanueva RN 06/15/20 101 by Katherine Flores RN (RETIRED) Pulmonary Artery Catheter - Triple Lumen 06/13/20; 08; jugular vein, right internal; VIP; CVC Protocol Performed; Bennie DIEZ; 06/13/20; 204906/13/20 08 by Sarahi Avery MD 06/13/202049 by Ling Goodman RN Arterial Line 06/13/20; 0820; radi al artery, right; 20 gauge; Bennie DIEZ; Sterile Prep, Sterile Gloves; 06/14/20; 1503 06/13/20 0820 by Sarahi Avery MD 06/14/20 1503 by Isidra Ballard RN (RETIRED) Percutaneous Central Line - Single Lumen 06/13/20; 0820; internal jugular vein, right; Ultrasound Guidance; No; 9 Fr; Bennie DIEZ; DEBORAH; CVC Protocol Performed; 06/14/20; 1500 06/13/20 0820 by Sarahi Avery MD 06/14/20 1500 by Isidra Ballard RN Incision 06/13/20; 0852; ster nal; vertical; 03/12/22 (LDA cleanup utility RA#[id number]); 1715 (LDA cleanup utility RA#[id number]) 06/13/20 0852 by Noemi Villanueva RN 03/12/22 1715 by Howard Tafoya Incision 06/13/20; 0853; knee ; laparoscopic puncture, horizontal; 03/12/22 (LDA cleanup utility RA#[id number]); 1715 (LDA cleanup utility RA#[id number]) 06/13/20 0853 by Noemi Villanueva RN 03/12/22 1715 by Howard Tafoya Incision 06/13/20; 0853; thig h; laparoscopic puncture; 03/12/22 (LDA cleanup utility RA#[id number]); 1715 (LDA cleanup utility RA#[id number]) 06/13/20 0853 by Noemi Villanueva RN 03/12/22 1715 by Howard Tafoya Chest Tube 06/13/20; 0900; Left ; Pleural 24fr Mac; 06/14/20; 1350 06/13/20 0900 by Noemi Villanueva RN 06/14/20 1350 by Isidra Ballard RN Drain/Device Site 06/13/20; 1031; Righ t; medial; knee; collapsible closed device; RASHEL Mayen; Sterile prep and drape, Sterile technique; 06/13/20; 1815 06/13/20 1031 by Noemi Villanueva RN 06/13/20 1815 by Stefania Hamilton RN Chest Tube 06/13/20; 1129; Righ t; mediastinum; Posterior to Heart. 28Fr. PVC angled; 06/14/20; 1350 06/13/20 1129 by Noemi Villanueva RN 06/14/20 1350 by Isidra Ballard RN Chest Tube 06/13/20; 1130; Left ; mediastinum; Anterior to Heart. 28Fr. PVC straight.; 06/14/20; 1350 06/13/20 1130 by Noemi Villanueva RN 06/14/20 1350 by Isidra Ballard RN documented in this encounter Social History Tobacco Use Types Packs/Day Years Used Date Smoking Tobacco: Never Smokeless Tobacco: Never Alcohol Use Standard Drinks/Week Comments Not Currently 0 (1 standard drink = 0.6 oz pur e alcohol) Sex and Gender Information Value Date Recorded Sex Assigned at Not on file Gender Identity Not on file Sexual Orientation Not on file documented as of this encounter OR Notes * Anesthesia Postprocedure Evaluation - Sarahi Avery - 06/13/2020 1:59 PM EST Department of Anesthesiology Post-procedure Note Patient: Johnson Tobar Procedure Summary Date: 06/13/20 Room / Location: [facility] OR [address] [place] [address] MAIN OR Anesthesia Start: 728 Anesthesia Stop: 1338 Procedures: @REPLACE AORTIC VALVE, OPEN, W\CPB, W\PROSTHETIC VALVE (WRVU 41.32) (N/A Chest) @CABG, USING ARTERIAL GRAFT;SINGLE ARTERIAL GRAFT (WRVU 33.75) (Left Chest) @CABG, TWO VENOUS GRAFTS & ARTERIAL GRAFT (WRVU 7.93) (N/A Chest) ENDOSCOPIC HARVEST VEIN(S) FOR CABG (WRVU 0.31) (Right Leg) Diagnosis: (, CAD) Surgeon: Chun Wiley MD Responsible Provider: Marianna Torres MD Anesthesia Type: general ASA Status: 4 All Anesthesia Providers: Anesthesiologist: Marianna Torres MD Word Processing Operator: Sarahi Avery MD Vitals Value Taken Time BP Temp 35.9 ??C (96.62 ??F) 06/13/20 1357 Pulse 80 06/13/20 1357 Resp SpO2 100 % 06/13/20 1357 Pain Level Vitals shown include unvalidated device data. Patient Location: [facility] Level of Consciousness: Sedated (Pharmacologic/Intentional) Pain Management: Satisfactory Analgesia PONV: None Cardiovascular Status: Hypotension (received treatment) Respiratory Status: Intubated/Ventilated Postoperative Fluid Status: Intravascular EUvolemia Possible Anesthetic Complications: NONE apparent at time of evaluation Final Primary Anesthesia Type: General (The anesthetic type performed was the same as planned.) Comments: Hemodynamically stable on levophed and vasopressin gtts. CI on arrival ~1.8. Remains intubated, no immediate anesthetic complications. * Anesthesia Preprocedure Evaluation - Sarahi Avery - 06/11/2020 9:56 PM EST Images from the original note were not included. Pre-Anesthesia Evaluation for: Johnson Tobar a 69 y.o. male. Procedure(s): @REPLACE AORTIC VALVE, OPEN, W\CPB, W\PROSTHETIC VALVE (WRVU 41.32) @CABG, USING ARTERIAL GRAFT;SINGLE ARTERIAL GRAFT (WRVU 33.75) @CABG, TWO VENOUS GRAFTS & ARTERIAL GRAFT (WRVU 7.93) ENDOSCOPIC HARVEST VEIN(S) FOR CABG (WRVU 0.31) Patient Active Problem List Diagnosis ??? CAD (coronary artery disease) ??? Aortic valve stenosis Added automatically from request for surgery [id number] ??? ASCVD (arteriosclerotic cardiovascular disease) Status post stenting to his LAD over 11 years ago. LV function normal. No angina. ??? HTN (hypertension) ??? DJD (degenerative joint disease) ??? Elevated cholesterol ??? Aortic stenosis No change on echo. Valve area 1.4 cm squared. LV function normal. No other significant valve disease. PA pressure slightly up at 41. Echo 03/11/2020: EF 65%; TOBI 0.8; pV 5.0; mean Gr 57; PASP 35-45; Trivial AI/MR Past Medical History: Diagnosis Date ??? Diabetes treated with oral medication ??? Gastroesophageal reflux controlled with medication ??? Heart valve disease ??? High blood pressure treated with medication ??? Myocardial infarction ??? Peptic ulcer disease >15 yrs ago Past Surgical History: Procedure Laterality Date ??? CORONARY ANGIOPLASTY WITH STENT PLACEMENT 1997 Social History Tobacco Use ??? Smoking status: Never Smoker ??? Smokeless tobacco: Never Used Substance Use Topics ??? Alcohol use: Not Currently Social History Substance and Sexual Activity Drug Use Never No Known Allergies Medications: MAR and/or home medications have been reviewed. Physical Exam: No data found. There is no height or weight on file to calculate BMI. Airway Assessment: Mallampati: II TM distance: >3 FB Neck ROM: limited Mild retrognathia Cardiovascular Assessment: Rhythm: regular Rate: normal (+) murmur (3/6 systolic murmur loudest at LUSB c/w known ) Pulmonary Assessment: breath sounds clear to auscultation Dental Assessment: [facility] [place] Assessment: Patient is wearing No contact(s). IV access: Peripheral line Anesthesia Plan: ASA 4 general, with a(n) intravenous induction 69 y.o. 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 Wiley. Past Anesthesia History: - No prior general anesthetics, denies family history of anesthetic complications BHARATI risk: high-risk STOP-BANG (5) NPO status appropriate Interviewed and no contraindications to DEBORAH NKDA EKG (06/03/20): LVH with repolarization abnormality, old inferior infarct Lab results: - BMP (06/03/20): K 4.7, Cr 1.19, CO2 23 - CBC (06/03/20): HGB 12.8, PLT 155 - LFTs (06/03/20) wnr Imaging/other studies: [facility] / Coronary Angiography (06/03/20) - PASP 45/13, PCWP 11; mild diffuse LMCA, long 65% segmental mid-LAD lesion, 90% ostial diag 1 lesion; discrete 80% ostial LCX lesion involving bifurcation; milddiffuse RCA disease TTE (04/13/20) - LVEF 65%, no RWMA, elevated L-sided filling pressures; normal RV size and systolicfunction; severe LA dilation, mild RA dilation; severe (TOBI 0.8 cm2, MG 57 mmHg, PV 5 m/s) d/t severe calcific disease of trileaflet valve, trivial AI; mild MS (MVA 1.7 cm2, MG 4 mmHg), trace-mildMR; mild TR PLAN GA with ETT, standard ASA monitors and pre-induction arterial line, post- induction CVL, PA catheter, and DEBORAH. CVCC post-op PIVx1 Region - Intrathoracic Cardiac Informed Consent: Anesthetic plan and risks discussed with patient and spouse. Use of blood products discussed with patient who consented to blood products. Plan discussed with attending and resident. PAT Clinic Note documented in this encounter Plan of Treatment Upcoming Encounters Date Type Department Care Team (Late st Contact Info) Description 08/27/2024 2:30 PM EST [place] [address] Susanna Cm APRN [facility] [place] [address] documented as of this encounter Visit Diagnoses Not on filedocumented in this encounter Administered Medications Inactive Administered Medications - up to 3 most recent administrations Medication Order MAR Action Action Date Dose Rate Site AMIOdarone (Cordarone) 450 mg in dextrose 5% 250 mL infusion CONTINUOUS PRN, Starting on Sat06/13/20 at 1220, Until Sat06/13/20 at 1357, Anesthesia Intra-op New Bag 06/13/2020 12:20 PM EST 1 mg/min 33.3 mL/hr cefTRIAXone (Rocephin) injection PRN, Starting on Sat06/13/20 at 0821, Until Sat06/13/20 at 1357, Anesthesia Intra-op, Routine Given 06/13/2020 8:21 AM EST 2 g EPINEPHrine (Adrenalin) (8 mcg/mL) in dextrose 5% 250 mL infusion CONTINUOUS PRN, Starting on Sat06/13/20 at 1205, Until Sat06/13/20 at 1357, Anesthesia Intra-op Rate/Dose Change 06/13/2020 12:16 PM EST 1 mcg/min 7.5 mL/hr New Bag 06/13/2020 12:05 PM EST 2 mcg/min 15 mL/hr fentaNYL (pf) (50 mcg/mL) multi-dose injection PRN, Starting on Sat06/13/20 at 0834, Until Sat06/13/20 at 1357, Anesthesia Intra-op, Routine Given 06/13/2020 8:39 AM EST 100 mcg Given 06/13/2020 8:34 AM EST 150 mcg Given 06/13/2020 7:57 AM EST 250 mcg heparin (porcine) (1,000 units/mL) injection PRN, Starting on Sat06/13/20 at 0915, Until Sat06/13/20 at 1357, Anesthesia Intra-op, Routine Given 06/13/2020 9:15 AM EST 30,000 Units insulin regular (HumuLIN R,NovoLIN R) (100 unit/mL) injection vial PRN, Starting on Sat06/13/20 at 0830, Until Sat06/13/20 at 1357, Anesthesia Intra-op, Routine Given 06/13/2020 11:14 AM EST 5 Units Given 06/13/2020 10:41 AM EST 5 Units Given 06/13/2020 8:30 AM EST 2 Units insulin regular human (Myxredlin) (1 unit/mL) in sodium chloride 0.9% 100 mL infusion CONTINUOUS PRN, Starting on Sat06/13/20 at 1041, Until Sat06/13/20 at 1357, Anesthesia Intra-op, Routine Rate/Dose Change 06/13/2020 11:52 AM EST 8 Units/hr 8 mL/hr Rate/Dose Change 06/13/2020 11:16 AM EST 4 Units/hr 4 mL/h r New Bag 06/13/2020 10:41 AM EST 2 Units/hr 2 mL/hr lactated ringers infusion CONTINUOUS PRN, Starting on Sat06/13/20 at 0729, Until Sat06/13/20 at 1357, Anesthesia Intra-op New Bag 06/13/2020 7:29 AM EST midazolam (pf) (Versed) (1 mg/mL) multi-dose injection PRN, Starting on Sat06/13/20 at 0740, Until Sat06/13/20 at 1357, Anesthesia Intra-op, Routine Given 06/13/2020 10:09 AM EST 1 mg Given 06/13/2020 7:40 AM EST 2 mg NORepinephrine 16 mcg/mL (standard ADULT and Pedi greater than 20 kg) infusion CONTINUOUS PRN, Starting on Sat06/13/20 at 1206, Until Sat06/13/20 at 1357, Anesthesia Intra-op, Routine Rate/Dose Change 06/13/2020 1:13 PM EST 2 mcg/min 7.5 mL/hr Rate/Dose Change 06/13/2020 1:04 PM EST 4 mcg/min 15 mL/h r Rate/Dose Change 06/13/2020 1:01 PM EST 2 mcg/min 7.5 mL/ hr PHENYLephrine (MYRON-SYNEPHRINE) 20 mg in sodium chloride 250 mL (standard ADULT & Pedi greater than 20kg) infusion CONTINUOUS PRN, Starting on Sat06/13/20 at 0740, Until Sat06/13/20 at 1357, Anesthesia Intra-op, Routine Rate/Dose Change 06/13/2020 7:45 AM EST 10 mcg/min 7.5 mL/hr New Bag 06/13/2020 7:40 AM EST 20 mcg/min 15 mL/hr propofoL (Diprivan) 10 mg/mL bolus injection (Anesthesia) PRN, Starting on Sat06/13/20 at 0743, Until Sat06/13/20 at 1357, Anesthesia Intra-op Given 06/13/2020 7:51 AM EST 50 mg Given 06/13/2020 7:46 AM EST 50 mg Given 06/13/2020 7:43 AM EST 40 mg protamine (10 mg/mL) injection PRN, Starting on Sat06/13/20 at 1232, Until Sat06/13/20 at 1357, Anesthesia Intra-op, Routine Given 06/13/2020 12:37 PM EST 250 mg Given 06/13/2020 12:32 PM EST 10 mg sodium chloride 0.9% infusion CONTINUOUS PRN, Starting on Sat06/13/20 at 0812, Until Sat06/13/20 at 1357, Anesthesia Intra-op New Bag 06/13/2020 8:12 AM EST sodium chloride 0.9% infusion CONTINUOUS PRN, Starting on Sat06/13/20 at 0812, Until Sat06/13/20 at 1357, Anesthesia Intra-op New Bag 06/13/2020 8:12 AM EST tranexamic acid (Cyklokapron) (100 mg/mL) bolus injection (Anesthesia) PRN, Starting on Sat06/13/20 at 0821, Until Sat06/13/20 at 1357, Anesthesia Intra-op, Routine Given 06/13/2020 8:21 AM EST 790 mg tranexamic acid (Cyklokapron) (100 mg/mL) injection CONTINUOUS PRN, Starting on Sat06/13/20 at 0833, Until Sat06/13/20 at 1357, Anesthesia Intra-op, Routine New Bag 06/13/2020 8:33 AM EST 1 mg/kg/hr 0.8 mL/hr vancomycin (Vancocin) injection PRN, Starting on Sat06/13/20 at 0821, Until Sat06/13/20 at 1357, Anesthesia Intra-op, Routine Given 06/13/2020 8:21 AM EST 1 g vasopressin (VASOSTRICT) 0.2 units/mL IV infusion (Anesthesia) CONTINUOUS PRN, Starting on Sat06/13/20 at 1205, Until Sat06/13/20 at 1357 New Bag 06/13/2020 12:05 PM EST 0.04 Units/min 12 mL/hr vecuronium (Norcuron) injection PRN, Starting on Sat06/13/20 at 0743, Until Sat06/13/20 at 1357, Anesthesia Intra-op, Routine Given 06/13/2020 1:07 PM EST 5 mg Given 06/13/2020 10:09 AM EST 5 mg Given 06/13/2020 7:43 AM EST 20 mg documented in this encounter Care Teams Tab Cutting Machine Operator Relationship Specialty Start Date End Date Ramiro Ball MD [address] [address] PCP - General 06/06/10 02/17/24 documented as of this encounter
--- OUTSIDE RECORDS SUMMARY | 2024-03-26 15:54 | XMS_ITS | Encounter Summary ---
[place] [address] Care Team Providers Care Advanced Practice Rn Name Role Phone Ramiro Ball MD Primary Care Provider [phone] Reason for Visit * Auth/Cert Specialty Diagnoses / Procedures Referred By Luca beltran Referred To Contact Diagnoses Aortic stenosis /PRE TAVR Procedures PRG CATH PLMT CORONARY ART W/INJ FOR ANGIO W/R HEART CATH IMG S&I CARDIAC CATHETERIZATION CORONARY ANGIOGRAPHY; W C Referral ID Status Reason Start Date Expiration Date Visits Re quested Visits Authorized [id number] 1 1 Encounter Details Date Type Department Care Team (Latest Contact Info) Description 06/03/2020 3:10 PM EST [place] [phone] Nonrheumatic aortic valve stenosis Social History Tobacco Use Types Packs/Day Years [...] 2:30 PM EST [place] [phone] Susanna Cm, [facility] [employer] [place] [address] documented as of this encounter Procedures Procedure Name Priority Date/Time Associated Diagnosis Comments HC UA W/OUT MICROSCOPIC Routine 06/03/2020 4:36 PM EST Nonrheumatic aortic valve stenosis HEMOGRAM Routine 06/03/2020 4:10 PM EST Nonrheumatic aortic valve stenosis DIFFERENTIAL, AUTOMATED Routine 06/03/2020 4:10 PM EST Nonrheumatic aortic valve stenosis HC PROTHROMBIN TIME Routine 06/03/2020 4 :10 PM EST Nonrheumatic aortic valve stenosis HC CBC,PLT & AUTO DIFF Routine 06/03/2020 4:10 PM EST Nonrheumatic aortic valve stenosis HEPATIC FUNCTION PANEL Routine 06/03/2020 4:10 PM EST Nonrheumatic aortic valve stenosis BASIC METABOLIC PANEL Routine 06/03/2020 4:10 PM EST Nonrheumatic aortic valve stenosis ABORH RECHECK STATUS Routine 06/03/2020 4:02 PM EST HC ANTIBODY DETECTION,CAPTURE-R Routine 06/03/2020 4:02 PM EST Nonrheumatic aortic valve stenosis ABO/RH TYPING Routine 06/03/2020 4:02 PM EST Nonrheumatic aortic valve stenosis ANTIBODY SCREEN Routine 06/03/2020 4:02 PM EST Nonrheumatic aortic valve stenosis documented in this encounter Results * (ABNORMAL) Urinalysis without microscopic (06/03/2020 4:36 PM EST) Glucose, Urine Dipstick Negative Negative mg/dL [facility] Protein, Urine Dipstick 100(A) Negative mg/dL [facility] Bilirubin, Urine Dipstick Negative Negative mg/dL [facility] Comment: Clinical correlation required for positive Urine Bilirubin results as false positive may occur with some drugs and drug related products. If a false positive is suspected a serum total bilirubin should be considered if clinically indicated. Urobilinogen, Urine Dipstick Normal Normal mg/dL [facility] pH, Urn (dipstick) 6.0 5.0 - 8.0 [facility] Blood, Urine Dipstick Negative Negative mg/dL [facility] Ketone, Urine Dipstick Negative Negative mg/dL [facility] Nitrite, Urine Dipstick Negative Negative [facility] Leukocytes, Urine Dipstick Negative Negative [facility] Appearance, Urine Dipstick Clear Clear [facility] Specific [place] Urine Automated >=1.030(A) 1.006 - 1.030 [facility] Color, Urine Dipstick Yellow Yellow [facility] Urine specimen (specimen) 06/03/2020 4:36 PM EST 06/03/2020 4:36 PM EST Narrative Resulting Agency Comment Spec In Lab Chun Wiley MD URINE ORDERABLES [facility] [place] [address] * Differential, Automated (06/03/2020 4:10 PM EST) Neutrophil % 54.4 % [facility] Neutrophil Absolute 3.47 1.70 - 6.10 x10(3)/[facility] Lymph % 31.1 % [facility] Lymphocytes Abs 2.0 0.9 - 3.2 x10(3)/[facility] Monocyte % 10.0 % [facility] Monocyte Abs 0.6 0.3 - 0.9 x10(3)/[facility] Eos % 3.3 % [facility] Eosinophils Abs 0.2 0.0 - 0.4 x10(3)/[facility] Basophil % 0.9 % [facility] Baso Absolute 0.1 0.0 - 0.1 x10(3)/[facility] Immature Gran % 0.30 % [facility] Comment: Immature granulocytes(IG's)percentage and absolute count will include metamyelocytes, myelocytes, and promyelocytes. Blood smears from CBCs yielding IG's will be scanned manually for concordance. If this scan disagrees with the automated IG or if promyelocytes are noted, a manual differential will be performed. Immature Gran Absolute 0.02 0.00 - 0.04 x10(3)/[facility] Blood specimen (specimen) 06/03/2020 4:10 PM EST 06/03/2020 4:53 PM EST Narrative Resulting Agency Comment Spec In Lab Chun Wiley MD HEMATOLOGY ORDERABL ES [facility] [place] [address] * (ABNORMAL) Hemogram (06/03/2020 4:10 PM EST) White Blood Cell 6.4 4.0 - 9.5 x10(3)/mc L [facility] Red Blood Cell 4.45(L) 4.58 - 5.54 x10(6)/mc L [facility] Hemoglobin 12.8(L) 13.7 - 16.5 gm/dL [facility] Hematocrit 37.5(L) 40.5 - 48.5 % [facility] Mean Cell Volume 84.3 82.9 - 93.1 fL [facility] Mean Cell Hemoglobin 28.8 27.5 - 32.1 pg [facility] Mean Cell Hemoglobin Concentration 34.1 32.0 - 35.7 gm/dL [facility] Platelet 155 145 - 357 x10(3)/mc L [facility] RDW Standard Deviation 41.7 36.0 - 45.0 fL [facility] RDW coefficient of variation 13.6 11.4 - 13.8 % [facility] Mean Platelet Volume 12.3 7.6 - 12.9 fL [facility] NRBC% auto 0.0 % [facility] NRBC Absolute 0.000 0.000 - 0.000 x10(3)/mc L [facility] Blood specimen (specimen) 06/03/2020 4:10 PM EST 06/03/2020 4:53 PM EST Narrative Resulting Agency Comment Spec In Lab Chun Wiley MD HEMATOLOGY ORDERABL ES [facility] [place] [address] * (ABNORMAL) Basic Metabolic Panel (non-fasting) (06/03/2020 4:10 PM EST) Glucose 208(H) 65 - 199 mg/dL [facility] Comment:Diabetes: >=200 mg/d L plus symptoms Blood Urea Nitrogen 16 10 - 20 mg/dL [facility] Creatinine 1.19 0.80 - 1.50 mg/dL [facility] Sodium 137 135 - 145 mmol/L [facility] Potassium 4.7 3.5 - 5.0 mmol/L [facility] Comment: Please note: ??Patients with WBC >100,000 may have falsely elevated Potassium levels. ??For accurate Potassium quantification in these patients send serum separator tube (gold top) for subsequent determinations. ??Contact the Clinical Chemistry Laboratory if there are any questions. Chloride 105 98 - 107 mmol/L [facility] Carbon Dioxide 23 22 - 31 mmol/L [facility] Anion Gap 9 5 - 15 mmol/L [facility] Calcium 9.7 8.5 - 10.5 mg/dL [facility] Est Glomerular Filtration Rate 62 >=60 mL/min/1. 73 m?? [facility] Comment: The eGFR was calculated using the CKD-EPI equation. As with all creatinine based estimates of kidney function, eGFR values calculated with the CKD-EPI equation are not accurate in patients with acute kidney failure, extremes of body mass or the acutely ill. [email or web address] eGFR 71 >=60 mL/min/1. 73 m?? [facility] Comment: The eGFR was calculated using the CKD-EPI equation. As with all creatinine based estimates of kidney function, eGFR values calculated with the CKD-EPI equation are not accurate in patients with acute kidney failure, extremes of body mass or the acutely ill. [email or web address] Blood specimen (specimen) 06/03/2020 4:10 PM EST 06/03/2020 4:53 PM EST Narrative Resulting Agency Comment Spec In Lab Chun Wiley MD CHEMISTRY ORDERABLE S Performing Organization Address [facility] Co de Phone Number [facility] [place] [address] * Hepatic Function Panel (06/03/2020 4:10 PM EST) Protein, Total 7.2 6.1 - 8.0 gm/dL [facility] Albumin 4.5 3.2 - 5.2 gm/dL [facility] Aspartate Aminotransferase 20 0 - 39 unit/L [facility] Alanine Aminotransferase 14 0 - 55 unit/L [facility] Alkaline Phosphatase 53 40 - 130 unit/L [facility] Bilirubin, Total 0.3 0.2 - 1.3 mg/dL [facility] Bilirubin, Direct 0.1 0.0 - 0.3 mg/dL [facility] Blood specimen (specimen) 06/03/2020 4:10 PM EST 06/03/2020 4:53 PM EST Narrative Resulting Agency Comment Spec In Lab Chun Wiley MD CHEMISTRY ORDERABLE S Performing Organization Address [facility] Co de Phone Number [facility] [place] [address] * Prothrombin Time (06/03/2020 4:10 PM EST) Prothrombin Time 12.4 9.4 - 12.5 sec [facility] International Normalization Ratio 1.1 [facility] Comment: An INR <2.0 indicates adequate procoagulant activity for hemostasis in most patients without underlying bleeding disorders, though the INR may not adequately reflect hemostatic capacity in patients with liver disease and synthetic impairment. The recommended target INR range for therapeutic anticoagulation is 2.0 ? 3.0 for most applications, though lower and higher ranges may be appropriate depending on clinical circumstances. Blood specimen (specimen) 06/03/2020 4:10 PM EST 06/03/2020 4:53 PM EST Narrative Resulting Agency Comment Spec In Lab Chun Wiley MD HEMATOLOGY ORDERABL ES Performing Organization Address [facility]/ZIP Co de Phone Number [facility] [place] [address] * ABORH Recheck Status (06/03/2020 4:02 PM EST) Pathologist [facility] ABORH Recheck Order Order Placed [facility] ABORH Type Recheck Complete [facility] Blood specimen (specimen) 06/03/2020 4:02 PM EST 06/03/2020 4:35 PM EST Narrative Resulting Agency Comment Spec In Lab Chun Wiley MD BLOOD BANK LAB ORDE RABLES [facility] [place] [address] * Antibody screen (06/03/2020 4:02 PM EST) Ab Screen Interp Negative [facility] Expires at [phone] on: 06/16/2020 [facility] Blood specimen (specimen) 06/03/2020 4:02 PM EST 06/03/2020 4:35 PM EST Narrative Resulting Agency Comment Spec In Lab Chun Wiley MD BLOOD BANK LAB KAMLESH BOWER Performing Organization Address City/[facility]/ZIP Co de Phone Number [facility] [place] [address] * ABO/Rh Typing (06/03/2020 4:02 PM EST) ABORH Type A Neg [facility] Blood specimen (specimen) 06/03/2020 4:02 PM EST 06/03/2020 4:35 PM EST Narrative Resulting Agency Comment Spec In Lab Chun Wiley MD BLOOD BANK LAB KAMLESH BOWER Performing Organization Address [facility] Co de Phone Number [facility] [place] [address] documented in this encounter Visit Diagnoses Diagnosis Nonrheumatic aortic valve stenosis Aortic valve disorders documented in this encounter Care Teams Advanced Practice Rn Relationship Specialty Start Date End Date Ramiro Ball MD [address] [place] [id number] PCP - General 06/06/10 02/17/24 documented as of this encounter
--- OUTSIDE RECORDS SUMMARY | 2024-03-26 15:54 | XMS_ITS | Encounter Summary ---
Author Organization [facility] Juan [place] [address] Care Team Providers Care Lab Coordinator Name Role Phone Ramiro Ball MD Primary Care Provider [phone] Reason for Visit * Auth/Cert Specialty Diagnoses / Procedures Referred By Luca beltran Referred To Contact Diagnoses Aortic stenosis /PRE TAVR Procedures PRG CATH PLMT CORONARY ART W/INJ FOR ANGIO W/R HEART CATH IMG S&I CARDIAC CATHETERIZATION CORONARY ANGIOGRAPHY; W C Referral ID Status Reason Start Date Expiration Date Visits Re quested Visits Authorized [id number] 1 1 Encounter Details Date Type Department Care Team (Latest Contact Info) Description 06/03/2020 9:12 AM EST - 06/03/2020 3:01 PM [facility] Hospital [place] [id number] Jim Castelan MD [facility] [place] [address] Aortic valve stenosis, etiology of cardiac valve disease unspecified; Nonrheumatic aortic valve stenosis Discharge Disposition: Home Social History Tobacco Use [...] Sign Reading Time Taken Comments Blood Pressure 148/68 06/03/2020 2:30 PM EST Pulse 68 06/03/2020 2:10 PM EST Temperature 36.7 ??C (98.1 ??F) 06/03/2020 2:22 PM ES T Respiratory Rate 16 06/03/2020 2:22 PM EST Oxygen Saturation 96% 06/03/2020 2:30 PM EST Inhaled Oxygen Concentration - - Weight - - Height - - Body Mass Index - - documented in this encounter Discharge Instructions * Discharge Instructions* Evangelina Navarro RN - 06/03/2020 2:34 PM EST Radial Access for Heart Cath Activity If you are discharged the same day as your procedure, do not drive yourself home. Arrange to have another person drive. You may walk around when you get home, but keep your activity at a minimum until the morning. Try to avoid bending your wrist for the first 12-24 hours after the procedure to allow the artery to fully heal. Do not participate in active sports for 48 hours. Do not lift anything greater than 5 lbs. You may engage in sexual activity after 48 hours. Catheter Insertion Area Care Take the dressing off of the catheter insertion site the morning following the procedure. Leave thesite open to air. If the site is oozing you may cover it with a band aid. You may take a shower if you wish. Look for signs of infection over the next several days. It is uncommon to have any visible blood at the site, any obvious bleeding is abnormal. A bruise around the wrist or small lump under the skin is normal: they generally disappear in 3-5 days. Expect some mild tenderness over the area where the catheter was inserted. You will notice this after the local anesthetic (numbing medicine) wears off. This should improve during the 24-48 hours after the procedure. You may use acetaminophen (tylenol) if needed. Contact your doctor if the discomfort worsens. Problems to Watch for If there is bright red blood flowing from the catheter insertion area: *stop what you are doing *hold pressure steadily on the area for 15 minutes *call for help *if the bleeding does not stop in 15 minutes call 911 for an ambulance. If there is swelling with black and blue color at the catheter insertion site, there may be bleeding inside. Contact the doctor if there is any increase in size. Look at the insertion site for the first few days at home. Signs of infection are: *redness *swelling *yellow, white, green or brown foul smelling drainage. *increased soreness If you think there is an infection, take your temperature. Then call your doctor. The limb on the side where you had your catheterization should look and feel normal in color, sensation, and temperature. If your hand or fingers become cool, pale, blue or change color contact your doctor. If you are having numbness or tingling in your fingers or hand contact your doctor. If you feel faint or dizzy, lie down with your feet elevated. Have someone call the doctor. If you are alert, drink fluids. How to Deal with Chest Pain If you had only the cardiac catheterization, treat any angina or chest discomfort as instructed. Stop what you are doing, and sit or lie down. If prescribed, take nitroglycerin under your tongue. If the angina isn't relieved, take another nitroglycerin in 5 minutes. After another 5 minutes, a third nitroglycerin may be taken. If the angina isn't improved you should call for an ambulance to bring you to the nearest hospital emergency room. If your angina is more frequent or severe than before, contact your doctor. We usually would not expect you to have angina after an angioplasty. If you do get angina, treat itas you did before, but also contact your doctor. Return to Work The doctor will usually have told you when to return to work. If you do not perform heavy physical labor, most people can return to work in a few days. Diet Follow your previous diet unless otherwise instructed. Cardiac Risk Factor If you have coronary artery disease, it is important that you help control it by reducing your cardiac risk factors. If you smoke, we urge you to stop now. If you think this is going to be a problem,let us know so that we may help you. We have dieticians who can help you learn about a low fat, lowcholesterol diet. Cardiac rehabilitation programs can help you set up a regular exercise program. Work with your doctor if you have high blood pressure or sugar diabetes to keep these under control. Medications Take your usual medications medication changes If you are taking medications prescribed by your doctor, do not take any xxcd-lsl-yjuifny medicinesor herbal preparations without first discussing this with your doctor or pharmacist. There is the possibility of side effects and interactions when these are combined. Follow Up Care Who to call with questions or problems If there are any questions or problems that you think might be related to your cardiac cath or angioplasty, contact the cargo broker wedding consultant by calling [facility] at . * Patient Instructions* Johnathan Kothari PA - 06/03/2020 12:33 PM EST Cardiac Cath Provider Discharge Instructions Procedure: right heart catheterization, coronary angiography Call your doctor if: Chest pain, dyspnea, pain or swelling in legs occurs. If you have non-emergentquestions between now and the time of your follow up appointments: During 8am-5pm Saturday through Saturday call [phone] and ask to speak to the cardiology clinic triage nurse. All other times call [phone] and ask to speak to the braid maker wedding consultant. Return to work: One week Driving: No driving for 24 hours after catherization Diet: regular diet Follow up Appointments: cargo broker Dr Castelan to discuss the next options and scheduling for the next steps with valve replacement Home oxygen therapy: not applicable Arrangements for VNA / home care: not applicable Please do not hesitate to contact us with any questions or comments. Dr Castelan spoke with Dr Wiley (the cardiac surgery team) who will contact you to discuss the next steps. Johnathan Kothari PA-C Interventional Cardiology [facility] Pager [phone] documented in this encounter Medications at Time [...] for Pain. 60 tablet 1 06/19/2020 03/02/2024 dextromethorphan-gua iFENesin (Robitussin) 10-100 mg/5 mL Syrup Take 5 mLs by mouth 4 times daily as needed for Cough. 06/19/2020 03/02/2024 amoxicillin (Amoxil) 500 mg Capsule Take 4 capsules by mouth as needed. Take 4 tablets, 2000mg, 1 hour before dental procedures. 06/19/2020 03/21/2024 blood sugar diagnostic strips Strip Twice daily. One touch verio flex ICD 10 E11.9 50 each 06/19/2020 03/21/2024 chlorhexidine (HIBICLENS) 4 % Liquid Apply topically daily as needed. Shower from head to toe with Chlorhexidine the night before surgery . 120 mL 06/03/2020 06/13/2020 aspirin 325 mg Tablet Take 325 mg by mouth daily. 06/11/2023 lisinopriL (PRINIVIL;ZESTRIL) 30 mg Tablet TAKE ONE TABLET BY MOUTH EVERY DAY 03/03/2020 06/19/2020 metoprolol tartrate (Lopressor) 50 mg Tablet TAKE ONE TABLET BY MOUTH TWICE A DAY 04/12/2020 06/19/2020 omeprazole (PriLOSEC) 20 mg Capsule, Delayed Release(E.C.) TAKE ONE CAPSULE BY MOUTH EVERY DAY 05/03/2020 03/02/2024 rosuvastatin (Crestor) 40 mg Tablet TAKE ONE TABLET BY MOUTH EVERY DAY 04/12/2020 03/21/2024 documented as of this encounter Progress Notes * Evangelina Navarro RN - 06/03/2020 3:00 PM EST Pt d/c'd post cardiac cath to [facility] before going home. He is accompanied by his . Pt's R radial and R AC sites are benign. Sling placed on R arm as reminder not to use wrist. * Shante Duke RN - 06/03/2020 11:30 AM EST Patient had cranberry/grape juice mixture this morning around 0730. stucco laborer called, Yobani from cathlab notified and said that is okay. MD Aline also notified. Shante Duke RN documented in this encounter H&P Notes * Ivon Gracia PA - 06/03/2020 11:33 AM EST Patient Name: Johnson Tobar Patient Age: 69 y.o. Birthdate: 1950 Admit date: 06/03/2020 Attending Physician: Jim Castelan MD [facility] Interventional Cardiology Adult Pre-Procedure H&P Update: Name: Johnson Tobar Patient Age: 69 y.o. Birthdate: 1950 Admit date: 06/03/20 Chief Complaint: Severe HPI: Johnson Tobar is a 69 y.o. female referred by Dr Lackey for (TOBI 0.8cm2, mean gradient 41mmHg, EF 65%). History of DM type II, HTN, HLD, ASCVD s/p mLAD stent with 315mm multilink (1997), CKD stage III baseline Cr 1.3. Please see Dr Castelan note from 05/26/2020 for further details. There have not been any changes in health status since last seen in clinic. No fevers, no chills, no bleeding. Please see recent outpatient clinic note for comprehensive physical and history documentation. Planned Procedure: RHC and CORS Cardiac History: Severe HTN HLD ASCVD s/p mLAD stent 1997 Other Pertinent Medical History: CKD Stage III DM Type II PHYSICAL: Gen: Alert, comfortable appearing, in NAD CV: RRR, systolic murmur, normal S1/S2, PMI not palpated Resp: CTAB, no W/R/R Ext: No edema, clubbing, or cyanosis. Warm and well perfused. Neuro: CN grossly intact, moving all extremities Pulses: 2+ bilateral radial pulses, 2+ bilateral femoral pulses, no femoral bruit appreciated, 2+ bilateral DP pulses Mallampati: III ASA Class: III Sedation Plan: Moderate Sedation, IV conscious sedation with fentanyl and midazolam. Assessment/Plan: Johnson Tobar is a 69 y.o. male who is here for cardiac cath in the setting of severe . Will proceed with RHC and CORS. - proceed as planned - consent signed - no apparent contraindication to DAPT, patient denies upcoming or planned procedures/operations, and denies ongoing or recent bleeding events - FULL code - 12-Lead ECG reviewed - Labs Reviewed: yes I have personally discussed the procedure, including benefits and risks, with the patient who agrees to proceed. The indications for the catheterization, the expected benefits, and the possible riskswere reviewed in detail with the patient. The potential for , heart attack, stroke, kidney failure, bleeding, allergic reaction, vascular complications and infection as well as other potential complications were reviewed. The possibility of stenting and other percutaneous interventions, with associated risk, was reviewed. The potential need for emergent coronary artery bypass surgery was reviewed. Alternatives were discussed and the patient's questions were answered in full. Following thisdiscussion, the patient consented to the procedure and signed a form attesting to this, which is inthe chart RASHEL Champion Interventional Cardiology 06/03/20 11:33 AM [facility] Pager: [phone] documented in this encounter Miscellaneous Notes * Brief Op Note - Jim Castelan MD - 06/03/2020 12:28 PM EST Preliminary Cardiac Catheterization Procedure Note: Patient Name: Johnson Tobar : [id number] MR#: [id number] Case Date: 06/03/2020 Echo Vasc Tech: Surgeon(s) and Role: * Jim Castelan MD - Primary * Johnathan Kothari PA - Physician Cubing Machine Tender Preoperative diagnosis: /PRE TAVR Postoperative diagnosis: * * Procedure(s) performed: right heart cath, coronary angio Access: right radial A time-out was conducted prior to the start of the procedure to verify the correct patient and procedure, procedure location, and all relevant critical information. Preliminary findings: RHC with mildly elevated pressures LM: mild LAD: mid 65%, d1 ostial 90% LCx: ostial 80%, OM1 70%, OM2 60% ostial RCA: mild Will plan on referral back to CT surgery with Dr Wiley for CABG with AVR. The patient tolerated the procedures smoothly and was transferred from the cardiac catheterization lab to the next level of care in stable condition. No evident early complications. Full report to follow. Jim Castelan MD documented in this encounter Plan of Treatment Upcoming Encounters Date Type Department Care Team (Late st Contact Info) Description 08/27/2024 2:30 PM EST Office Visit [place] [phone] Susanna Cm APRN [facility] [place] [address] documented as of this encounter Procedures Procedure Name Priority Date/Time Associated Diagnosis Comments POINT OF CARE BLOOD GAS HISTORICAL Routine 06/03/2020 1:08 PM EST CARDIAC CATHETERIZATION Routine 06/03/20 12:30 PM EST Aortic valve stenosis, etiology of cardiac valve disease unspecified EKG 12-LEAD Routine 06/03/2020 11:37 AM EST Aortic valve stenosis, etiology of cardiac valve disease unspecified documented in this encounter Results * (ABNORMAL) Urinalysis without microscopic (06/03/2020 4:36 PM EST) Glucose, Urine Dipstick Negative Negative mg/dL [facility] Protein, Urine Dipstick 100(A) Negative mg/dL [facility] Bilirubin, Urine Dipstick Negative Negative mg/dL [facility] Comment: Clinical correlation required for positive Urine Bilirubin results as false positive may occur with some drugs and drug related products. If a false positive is suspected a serum total bilirubin should be considered if clinically indicated. Urobilinogen, Urine Dipstick Normal Normal mg/dL [facility] pH, Urn (dipstick) 6.0 5.0 - 8.0 [facility] Blood, Urine Dipstick Negative Negative mg/dL [facility] Ketone, Urine Dipstick Negative Negative mg/dL [facility] Nitrite, Urine Dipstick Negative Negative [facility] Leukocytes, Urine Dipstick Negative Negative mcL [facility] Appearance, Urine Dipstick Clear Clear [facility] Specific Yeso Urine Automated >=1.030(A) 1.006 - 1.030 [facility] Color, Urine Dipstick Yellow Yellow [facility] Urine specimen (specimen) 06/03/2020 4:36 PM EST 06/03/2020 4:36 PM EST Narrative Resulting Agency Comment Spec In Lab Chun Wiley MD URINE ORDERABLES [facility] [place] [id number] * XR Chest PA & Lateral (Generic) (06/03/2020 4:21 PM EST) Anatomical Region Laterality Modality Chest N/A Digital Radiogra phy Impressions 06/03/2020 4:47 PM EST No radiographic evidence of acute cardiopulmonary disease. Thank you for letting us participate in the care of this patient. For questions regarding this report, please contact the number below. ? Electronically signed by: Gus Evans MD, [facility] ([phone]), at 06/03/2020 4:47 PM Narrative 06/03/2020 4:47 PM EST EXAMINATION: XR CHEST PA AND LATERAL (GENERIC) CLINICAL HISTORY: Pre op AVR/CABG TECHNIQUE: PA and lateral views of the chest COMPARISON: 05/26/2020 FINDINGS: Lungs are well-inflated without air space consolidation or focal lesion. Mild prominence of the epicardial fat pad at the left lateral cardiac silhouette unchanged from prior. No pleural effusion or pneumothorax. Heart size is normal. Normal pulmonary vasculature. Degenerative changes of the thoracic spine and acromioclavicular joints. No acute or aggressive bony lesion. Procedure Note Gus Evans MD - 06/03/2020 EXAMINATION: XR CHEST PA AND LATERAL (GENERIC) CLINICAL HISTORY: Pre op AVR/CABG TECHNIQUE: PA and lateral views of the chest COMPARISON: 05/26/2020 FINDINGS: Lungs are well-inflated without air space consolidation or focal lesion.Mild prominence of the epicardial fat pad at the left lateral cardiacsilhouette unchanged from prior. No pleural effusion or pneumothorax. Heart size is normal. Normal pulmonary vasculature. Degenerative changes of the thoracic spine and acromioclavicular joints.No acute or aggressive bony lesion. IMPRESSION No radiographic evidence of acute cardiopulmonary disease. Thank you for letting us participate in the care of this patient. Forquestions regarding this report, please contact the number below. Electronically signed by: Gus Evans MD, [facility]([phone]), at 06/03/2020 4:47 PM Chun Wiley MD IMG DX ORDERABLES * Prothrombin Time (06/03/2020 4:10 PM EST) Prothrombin Time 12.4 9.4 - 12.5 sec [facility] International Normalization Ratio 1.1 [facility] Comment: An INR <2.0 indicates [...] MD HEMATOLOGY ORDERABL ES Performing Organization Address [facility] Phone Number [facility] [place] [address] * Hepatic Function Panel (06/03/2020 4:10 PM EST) [facility] Signature Protein, Total 7.2 6.1 - 8.0 gm/dL [facility] Albumin 4.5 3.2 - 5.2 gm/dL [facility] Aspartate Aminotransferase 20 0 - 39 unit/L [facility] Alanine Aminotransferase 14 0 - 55 unit/L [facility] Alkaline Phosphatase 53 40 - 130 unit/L [facility] Bilirubin, Total 0.3 0.2 - 1.3 mg/dL [facility] Bilirubin, Direct 0.1 0.0 - 0.3 mg/dL [facility] Blood specimen (specimen) 06/03/2020 4:10 PM EST 06/03/2020 4:53 PM EST Narrative Resulting Agency Comment Spec In Lab Chun Wiley MD CHEMISTRY ORDERABLE S Performing Organization Address [facility] Phone Number [facility] [place] [address] * (ABNORMAL) Basic Metabolic Panel (non-fasting) (06/03/2020 4:10 PM EST) Glucose 208(H) 65 - 199 mg/dL [facility] Comment:Diabetes: >=200 mg/d L plus symptoms Blood Urea Nitrogen 16 10 - 20 mg/dL [facility] Creatinine 1.19 0.80 - 1.50 mg/dL [facility] Sodium 137 135 - 145 mmol/L [facility] Potassium 4.7 3.5 - 5.0 mmol/L [facility] Comment: Please note: ??Patients with WBC >100,000 may have falsely elevated Potassium levels. ??For accurate Potassium quantification in these patients send serum separator tube (gold top) for subsequent determinations. ??Contact the Clinical Chemistry Laboratory if there are any questions. Chloride 105 98 - 107 mmol/L [facility] Carbon Dioxide 23 22 - 31 mmol/L [facility] Anion Gap 9 5 - 15 mmol/L [facility] Calcium 9.7 8.5 - 10.5 mg/dL [facility] Est Glomerular Filtration Rate 62 >=60 mL/min/1. 73 m?? [facility] Comment: The eGFR was calculated using the CKD-EPI equation. As with all creatinine based estimates of kidney function, eGFR values calculated with the CKD-EPI equation are not accurate in patients with acute kidney failure, extremes of body mass or the acutely ill. [email or web address] eGFR 71 >=60 mL/min/1. 73 m?? [facility] Comment: The eGFR was calculated using the CKD-EPI equation. As with all creatinine based estimates of kidney function, eGFR values calculated with the CKD-EPI equation are not accurate in patients with acute kidney failure, extremes of body mass or the acutely ill. [email or web address] Blood specimen (specimen) 06/03/2020 4:10 PM EST 06/03/2020 4:53 PM EST Narrative Resulting Agency Comment Spec In Lab Chun Wiley MD CHEMISTRY ORDERABLE S [facility] [place] [address] * (ABNORMAL) Point of Care Blood Gas Historical (06/03/2020 1:08 PM EST) pH, POC 7.40 7.35 - 7.45 [facility] pCO2, POC 34(L) 35 - 45 mmHg [facility] pO2, POC 74(L) 85 - 104 mmHg [facility] Base Excess, POC -3.0 -3.0 - 3.0 mmol/L [facility] Bicarbonate, POC 21.4 20.0 - 26.0 mmol/L [facility] Sodium, POC 138 135 - 145 mmol/L [facility] POC Potassium 4.5 3.5 - 5.0 mmol/L [facility] Ionized Calcium, POC 1.31 1.15 - 1.33 mmol/L [facility] POC Hematocrit 39.0(L) 40.0 - 51.0 % [facility] POC Calc Hgb 13.3(L) 13.7 - 17.5 gm/dL [facility] Comment:The calculation of h emoglobin from hematocrit assumes a normal MCHC. POC Bgas Loc CC LAB [facility] Blood specimen (specimen) 06/03/2020 1:08 PM EST 06/07/2020 9:00 AM EST Jim Castelan MD CHEMISTRY ORDERABLES Performing Organization Address [facility]/State/ZIP Co de Phone Number [facility] [place] [address] * CARDIAC CATHETERIZATION (06/03/2020 12:30 PM EST) Anatomical Region Laterality Modality Other Narrative 06/03/2020 12:59 PM EST ?[facility] ? Cardiac Catheterization/Intervention Report ? Patient Name: Ekaterina, Johnson R. ? Procedure Date: 06/03/2020 ? A #: [id number] ? Primary Physician: Annelise, Jim T ? Case #: [id number] ? File Name: [id number] ? Catheterization Order Number: [id number] ? [facility] ? Final Report [place], [place] ? Patient Name: ? Johnson R. Ekaterina ? ID#: ?[id number] ? : ?1950 ? Procedure Date: ? June 03, 2020 ?Case #: ? [id number] ? Room: ? 6 ? Case Physician: ? Jim Castelan M.D. ?Start: ?12:04 ? Admission: ??06/03/2020 ? Referring Physician: ??Darius Hannah M.D. ? Procedures: ?* Coronary Angiography ?* Right Heart Catheterization ?* Oximetry ?* Arterial Blood Gases ? History ?Johnson Tobar is a 69 year old man. He has hypertension and a family ?history of coronary artery disease. The patient's smoking status is ?Never. He has hypercholesterolemia managed by diet and lipid therapy. The ?patient has diabetes managed by diet and oral medication. He has a prior ?history of coronary artery disease. The patient also has a history of ?pulmonary hypertension. Prior to the initiation of this procedure, the ?patient was designated as ASA Class III. The CSHA clinical frailty scale ?is 3: Managing Well. ? Diagnostic Tests: ?Prior Coronary Angiography: ? LV ejection fraction within 6 months is 65%. ?Electrocardiography: ? EKG was assessed by ECG. EKG was Abnormal. EKG showed T-wave ? inversions, ST Deviation >= 0.5 mm and other abnormality. ?Medications Prior to Procedure: ? Angiotensin Converting Enzyme Inhibitor, Aspirin, Beta Estee and ? Statin. ? Indications for Diagnostic Cath: ?The priority of the diagnostic procedure was Elective. The indication for ?the research laboratory manager visit is other indication. Chest pain symptom assessment ?was: Atypical Angina. One of the indications for cath is valvular heart ?disease. The patient has Severe aortic stenosis. ? Technique: ?A 6 SLFr sheath was inserted in the right radial artery utilizing the ?Seldinger technique. A 5 SLFr sheath was inserted in the right median ?antecubital vein utilizing the Seldinger technique. The left coronary ?artery was injected utilizing a 5Fr ALMAZ RADIAL catheter. A 5Fr ALMAZ ?RADIAL catheter was used to inject the right coronary artery. Right heart ?catheterization was performed utilizing a 5Fr PULMONARY WEDGE catheter. ?4,500 units of heparin were administered. A total of 100cc of Omnipaque ?were opened, 75cc of Omnipaque were administered and 25cc of Omnipaque ?were wasted. Radiation: Fluoro time was 5.6 minutes, dose area product ?was 26,100 mGYcm2 and air kerma was 357 mGY. See the case log for ?additional details. ?The patient received the following medications prior to and during the ?procedure: ? Unfractionated Heparin. ? Hemodynamics: ?Right Heart Pressures ? Resting: ? Syst Diast ? EDP ?a ?v ? m ?RA ? 6 ?2 ? 2 ?RV 39 ?3 ?PA 45 ?13 ?27 ?PCW ?16 ?11 ?11 ? Hemodynamic Profile: ?Profile 1 ?CO ? 4.78 ?CI ? 2.50 ?TSR ? 1,607 ?SVR ? 1,573 ?TPR ?452 ?PVR ?268 ?Technique ?Estimated Dennise ?Left Heart Pressures ? Resting: ? Syst Diast ? EDP ?a ?v ? m ?Ao 134 ?? 70 ?96 ? Oximetry: ?Location ? %Sat ?Location ?%Sat ?Right Pulmonary ?66.0 ?Peripheral Arterial ? 95.0 ?Artery ? Coronary Angiography: ?Dominance: Right ?Left Main ? There was mild diffuse (<=25% stenosis) disease of the entire vessel ? segment of the left main artery. ?Left Anterior Descending ? There was a 65% long segmental stenosis of the mid segment of the ? left anterior descending artery (LAD). ??The LAD was large. ??Distal ? flow was normal. ? There was a 90% single discrete stenosis of the ostial segment of ? the first diagonal branch (Diagonal 1) of the LAD. ??The Diagonal 1 ? was moderate in size. ?Left Circumflex ? There was an 80% calcified single discrete stenosis of the ostial ? segment of the left circumflex artery (LCX). ??The LCX was moderate ? in size. ??This lesion involved bifurcation. ? There was a 70% single discrete stenosis of the ostial segment of ? the first obtuse marginal branch (OM1) of the LCX. ??The OM1 was ? moderate in size. ? There was a 60% single discrete stenosis of the ostial segment of ? the second obtuse marginal branch (OM2) of the LCX. ??The OM2 was ? moderate in size. ??Distal flow was normal. ?Right Coronary Artery ? There was mild diffuse (<=25% stenosis) disease of the entire vessel ? segment of the right coronary artery (RCA). ??The RCA was large. ? Indication for Selected Procedures: ?Right Heart catheterization was initiated for Nonrheumatic aortic (valve) ?stenosis (I35.0). ? Vascular Access: ?Vascular Access Management: ? Manual Compression of the right median antecubital vein access site ? was performed. ? Mechanical Compression of the right radial artery access site was ? performed. ? Point of Care Testing: ?ABG: ? Arterial Blood gasses were performed using the I-Stat analyzer at ? 12:15: pH: 7.40, pCO2: 34.2, pO2: 74.0, sPO2: 95%, HCO3: 21 on FIO2: ? 21. ?I-Stat: ? I-Stat was performed using the I-Stat analyzer at 12:15: Na+: 138, ? K+: 4.5, iCa++: 1.31, Hct: 39%, Hb: 13.3. ? Conclusions: ?* Two vessel coronary artery disease (LAD and LCX) ?* Mild pulmonary hypertension ? Complications/Events: ?The patient had no complications during these procedures. ?The attending physician was present for the entire procedure. ?Dr. Jim Castelan M.D. was present during the moderate sedation ?intraservice time as documented by the sedation nurse. ??Case time = 00:19. ?Dr. Jim Castelan M.D. performed the coronary angiography, right heart ?catheterization, oximetry and ABG. ? Jim Castelan M.D. ? Electronically Signed by: Jim Castelan M.D. ? Report Finalized: 06/03/2020 ??12:54 ? Report Last Ammended: 06/27/2020 ??11:53 ? Procedure Note Jim Castelan MD - 06/27/[address] [facility] Cardiac Catheterization/Intervention Report Patient Name: Johnson Tobar Procedure Date: 06/03/2020 A #: [id number] Primary Physician: Jim Castelan Case #: [id number] File Name: [id number] Catheterization Order Number: [id number] [facility] FinalReport [place], [place] Patient Name: Johnson Tobar ID#:[id number] :1950 Procedure Date: June 03, 2020 Case #: [id number] Room: 6 Case Physician: Jim Castelan M.D. Start: 12:04 Admission:06/03/2020 Referring Physician: Darius Hannah M.D. Procedures: * Coronary Angiography * Right Heart Catheterization * Oximetry * Arterial Blood Gases History Johnson Tobar is a 69 year old man. He has hypertension and afamily history of coronary artery disease. The patient's smoking status is Never. He has hypercholesterolemia managed by diet and lipidtherapy. The patient has diabetes managed by diet and oral medication. He has aprior history of coronary artery disease. The patient also has a historyof pulmonary hypertension. Prior to the initiation of this procedure,the patient was designated as ASA Class III. The [facility] clinical frailtyscale is 3: Managing Well. Diagnostic Tests: Prior Coronary Angiography: LV ejection fraction within 6 months is 65%. Electrocardiography: EKG was assessed by ECG. EKG was Abnormal. EKG showed T-wave inversions, ST Deviation >= 0.5 mm and other abnormality. Medications Prior to Procedure: Angiotensin Converting Enzyme Inhibitor, Aspirin, Beta Blockerand Statin. Indications for Diagnostic Cath: The priority of the diagnostic procedure was Elective. Theindication for the research laboratory manager visit is other indication. Chest pain symptomassessment was: Atypical Angina. One of the indications for cath is valvularheart disease. The patient has Severe aortic stenosis. Technique: A 6 SLFr sheath was inserted in the right radial artery utilizingthe Seldinger technique. A 5 SLFr sheath was inserted in the rightmedian antecubital vein utilizing the Seldinger technique. The leftcoronary artery was injected utilizing a 5Fr ALMAZ RADIAL catheter. A 5FrJACKY RADIAL catheter was used to inject the right coronary artery. Rightheart catheterization was performed utilizing a 5Fr PULMONARY WEDGEcatheter. 4,500 units of heparin were administered. A total of 100cc ofOmnipaque were opened, 75cc of Omnipaque were administered and 25cc ofOmnipaque were wasted. Radiation: Fluoro time was 5.6 minutes, dose areaproduct was 26,100 mGYcm2 and air kerma was 357 mGY. See the case log for additional details. The patient received the following medications prior to and duringthe procedure: Unfractionated Heparin. Hemodynamics: Right Heart Pressures Resting: Syst Diast EDP a v m RA 6 2 2 RV 39 3 PA 45 13 27 PCW 16 11 11 Hemodynamic Profile: Profile 1 CO 4.78 CI 2.50 TSR 1,607 SVR 1,573 TPR 452 PVR 268 Technique Estimated Dennise Left Heart Pressures Resting: Syst Diast EDP a v m Ao 134 70 96 Oximetry: Location %Sat Location %Sat Right Pulmonary 66.0 Peripheral Arterial 95.0 Artery Coronary Angiography: Dominance: Right Left Main There was mild diffuse (<=25% stenosis) disease of the entirevessel segment of the left main artery. Left Anterior Descending There was a 65% long segmental stenosis of the mid segment ofthe left anterior descending artery (LAD). The LAD was large.Distal flow was normal. There was a 90% single discrete stenosis of the ostial segmentof the first diagonal branch (Diagonal 1) of the LAD. TheDiagonal 1 was moderate in size. Left Circumflex There was an 80% calcified single discrete stenosis of theostial segment of the left circumflex artery (LCX). The LCX wasmoderate in size. This lesion involved bifurcation. There was a 70% single discrete stenosis of the ostial segmentof the first obtuse marginal branch (OM1) of the LCX. The OM1 was moderate in size. There was a 60% single discrete stenosis of the ostial segmentof the second obtuse marginal branch (OM2) of the LCX. The OM2was moderate in size. Distal flow was normal. Right Coronary Artery There was mild diffuse (<=25% stenosis) disease of the entirevessel segment of the right coronary artery (RCA). The RCA was large. Indication for Selected Procedures: Right Heart catheterization was initiated for Nonrheumatic aortic(valve) stenosis (I35.0). Vascular Access: Vascular Access Management: Manual Compression of the right median antecubital vein accesssite was performed. Mechanical Compression of the right radial artery access sitewas performed. Point of Care Testing: ABG: Arterial Blood gasses were performed using the I-Stat analyzerat 12:15: pH: 7.40, pCO2: 34.2, pO2: 74.0, sPO2: 95%, HCO3: 21 onFIO2: 21. I-Stat: I-Stat was performed using the I-Stat analyzer at 12:15: Na+:138, K+: 4.5, iCa++: 1.31, Hct: 39%, Hb: 13.3. Conclusions: * Two vessel coronary artery disease (LAD and LCX) * Mild pulmonary hypertension Complications/Events: The patient had no complications during these procedures. The attending physician was present for the entire procedure. Dr. Jim Castelan M.D. was present during the moderate sedation intraservice time as documented by the sedation nurse. Case time =00:19. Dr. Jim Castelan M.D. performed the coronary angiography, rightheart catheterization, oximetry and ABG. Jim Castelan M.D. Electronically Signed by: Jim Castelan M.D. Report Finalized: 06/03/2020 12:54 Report Last Ammended: 06/27/2020 11:53 Jim Castelan MD CARDIAC CATH ORDERAB LES * EKG 12 Lead (06/03/2020 11:37 AM EST) Ventricular rate 65 BPM MUSE SYSTEM Atrial Rate 65 BPM MUSE SYSTEM P-R Interval 128 ms MUSE SYSTEM QRS Duration 78 ms MUSE SYSTEM Q-T Interval 392 ms MUSE SYSTEM QTC Calculated (Bezet) 407 ms MUSE SYSTEM Calculated P [place] 40 degrees MUSE SYSTEM Calculated R [place] -17 degrees MUSE SYSTEM Calculated T [place] -60 degrees MUSE SYSTEM INTERPRETATION Normal sinus rhythm Left ventricular hypertrophy with repolarization abnormality ( R in aVL ) Inferior infarct (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-2020) J-point elevation Abnormal ECG When compared with ECG of 26-MAY-2020 14:30, No significant change was found Confirmed by MD Mclain Daniel ([id number]) on 06/03/2020 1:23:54 PM MUSE SYSTEM 06/03/2020 11:3 7 AM EST 06/03/2020 1:23 PM EST Jim Castelan MD ECG ORDERABLES MUSE SYSTEM documented in this encounter Visit Diagnoses Diagnosis Aortic valve stenosis- Primary Aortic valve disorders Aortic valve stenosis, etiology of cardiac valve disease unspecified Nonrheumatic aortic valve stenosis Aortic valve disorders CAD (coronary artery disease) Coronary atherosclerosis of unspecified type of vessel, [place] or graft Aortic valve stenosis, etiology of cardiac valve disease unspecified Nonrheumatic aortic valve stenosis Aortic valve disorders documented in this encounter Admitting Diagnoses Diagnosis CAD (coronary artery disease) Coronary atherosclerosis of unspecified type of vessel, [place] or graft documented in this encounter Active and Recently Administered Medications Times are shown in EST. Continuous Medication Order 06/01/2020 06/02/2020 06/03/2020 sodium chloride 0.9% infusion 1 mL/hr, Intravenous, CONTINUOUS, Starting on Sat06/03/20 at 1300, Until Sat06/03/20 at 1359, Recovery (Recovery-Hospital Unit) 1300 (Due) PRN Medication Order 06/01/2020 06/02/2020 06/03/2020 fentaNYL 50 mcg/mL multi-dose injection (CANCELED) ONCE PRN, Starting on Sat06/03/20 at 1210, Until Sat06/03/20 at 1228, Cath (Intra-Procedure), Routine 1210 (Given - Provid er: Aayush Wilson RN) heparin (porcine) 1,000 unit/mL injection (CANCELED) ONCE PRN, Starting on Sat06/03/20 at 1214, Until Sat06/03/20 at 1228, Cath (Intra-Procedure), Routine 1214 (Given - Provid er: Aayush Wilson RN) iohexoL (Omnipaque) 350 mg/mL solution (CANCELED) ONCE PRN, Starting on Sat06/03/20 at 1225, Until Sat06/03/20 at 1228, Cath (Intra-Procedure), Routine 1225 (Given - Provid er: Jim Castelan MD) midazolam (PF) (VERSED) multi-dose injection (CANCELED) ONCE PRN, Starting on Sat06/03/20 at 1210, Until Sat06/03/20 at 1228, Cath (Intra-Procedure), Routine 1210 (Given - Provid er: Aayush Wilson RN) verapamiL (Isoptin) injection (CANCELED) ONCE PRN, Starting on Sat06/03/20 at 1208, Until Sat06/03/20 at 1228, Administer over 2 Minutes, Cath (Intra-Procedure) 1208 (Given - Provid er: Jim Castelan MD) documented in this encounter Care Teams Lab Coordinator Relationship Specialty Start Date End Date Ramiro Ball MD [address] [place] [id number] PCP - General 06/06/10 02/17/24 documented as of this encounter
--- OUTSIDE RECORDS SUMMARY | 2024-03-26 15:54 | XMS_ITS | Encounter Summary ---
[place] [address] Care Team Providers Care Cost Specialist Name Role Phone Ramiro Ball MD Primary Care Provider [phone] Reason for Visit * Auth/Cert Specialty Diagnoses [...] Expiration Date Visits Re quested Visits Authorized [id number] 1 1 Encounter Details Date Type Department Care Team (Late st Contact Info) Description 06/10/2020 10:05 AM [facility] [place] [id number] COVID-19 ruled out Social History Tobacco Use Types Packs/Day Years [...] 2:30 PM EST Office Visit Neurology at [facility], [place] [phone] Susanna Cm, [facility] [place] [address] documented as of this encounter Procedures Procedure Name Priority Date/Time Associated Diagnosis Comments COVID-19 PCR Routine 06/10/2020 11:03 AM EST COVID-19 ruled out documented in this encounter Results * COVID-19 PCR (06/10/2020 11:03 AM EST) SARS-CoV-2 RNA Not Detected Not Detected [facility] Comment: This result should be interpreted in combination with the clinical observations, patient history and epidemiological information in making a final diagnosis. For testing of asymptomatic individuals, assay performance characteristics and clinical utility have not been evaluated. Testing for SARS-CoV-2 (Severe acute respiratory syndrome coronavirus 2, formerly known as 2019 novel coronavirus or 2019-nCoV) to aid in the diagnosis of COVID-19 is performed using the [employer] m SARS-CoV-2 Assay as authorized by the FDA Emergency Use Authorization (EUA). This EUA assay is intended for In-vitro Diagnostic (IVD) use with respiratory specimens such as nasopharyngeal swabs collected from individuals during the acute phase of infection. This assay is performed based on the instructions for use provided by [employer] and additional guidance provided by CDC and FDA. Testing is performed in the [facility] within the Department of Pathology and Laboratory Medicine at [facility], certified under the Clinical Laboratory Improvement Amendments of 1988 (CLIA), 42 U.S.C. 263a, to perform high complexity tests. Assay performance has been verified according to clinical laboratory regulatory requirements for use with specimens collected from individuals suspected of COVID-19. Test results are provided above. A result of ? Not Detected? indicates that the viral RNA target is not present above the limit of detection, but does not preclude SARS-CoV-2 infection. False negative results may occur if a specimen is improperly collected, transported or handled; if amplification inhibitors are present; or if inadequate numbers of viral particles are present in the specimen. When a diagnostic test is negative, the possibility of a false negative result should be considered in the context of a patient? s recent exposures and the presence of clinical signs and symptoms consistent with COVID-19. A result of ? Detected? indicates that RNA from SARS-CoV-2 was detected and the patient is infected. As required or requested by public health authorities, positive specimens may be sent for additional testing. Positive and negative predictive values for this test are highly dependent on disease prevalence. A result of ? Invalid? indicates that neither the viral RNA targets nor the internal control target was detected. An invalid result suggests the presence of inhibitors. Recollection and re-testing is recommended in the case of an invalid result. CDC COVID-19 criteria for testing on human specimens and clinical management guidance information are available at the CDC Coronavirus Disease 2019 (COVID-19) webpage under ? Information for Healthcare Professionals? 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 Swab [facility] Nasopharyngeal swab (specimen) 06/10/2020 11:03 AM EST 06/10/2020 11:03 AM EST Comment:Symptoms->Asymptomat ic Narrative Resulting Agency Comment Spec In Lab Chun Wiley MD MOLECULAR ORDERABLE S Performing Organization Address City/State/[facility] Co de Phone Number [facility] [place] [address] documented in this encounter Visit Diagnoses Diagnosis COVID-19 ruled out documented in this encounter Care Teams Cost Specialist Relationship Specialty Start Date End Date Ramiro Ball MD [address] [id number] PCP - General 06/06/10 02/17/24 documented as of this encounter
--- OUTSIDE RECORDS SUMMARY | 2024-03-26 15:54 | XMS_ITS | Encounter Summary ---
Author Organization [facility] [place] [address] Care Team Providers Care Supervisor Dog License Officer Name Role Phone Ramiro Ball MD Primary Care Provider [phone] Reason for Visit * Auth/Cert Specialty Diagnoses / Procedures Referred By Luca beltran Referred To Contact Diagnoses Aortic stenosis /PRE TAVR Procedures PRG CATH PLMT CORONARY ART W/INJ FOR ANGIO W/R HEART CATH IMG S&I CARDIAC CATHETERIZATION CORONARY ANGIOGRAPHY; W RHC Referral ID Status Reason Start Date Expiration Date Visits Re quested Visits Authorized [id number] 1 1 Encounter Details Date Type Department Care Team (Late st Contact Info) Description 06/03/2020 10:28 AM EST - 06/03/2020 11:28 AM EST Surgery [place] [id number] Jim Castelan MD [facility] [place] [address] CARDIAC CATHETERIZATION Social History Tobacco Use Types [...] on file documented as of this encounter Discharge Instructions * Discharge Instructions* [...] by your doctor, do not take any pmax-wka-gvrjpby medicinesor herbal preparations without first discussing this with your doctor or pharmacist. There is the possibility of side effects and interactions when these are combined. Follow Up Care Who to call with questions or problems If there are any questions or problems that you think might be related to your cardiac cath or angioplasty, contact the on site wastewater systems technician train controller by calling [facility] at . * Patient Instructions* Johnathan Kothari PA - 06/03/2020 12:33 PM EST Cardiac Cath Provider Discharge Instructions Procedure: right heart catheterization, coronary angiography Call your doctor if: Chest pain, dyspnea, pain or swelling in legs occurs. If you have non-emergentquestions between now and the time of your follow up appointments: During 8am-5pm Saturday through Saturday call [phone] and ask to speak to the cardiology clinic triage nurse. All other times call [phone] and ask to speak to the welder gun train controller. Return to work: One week Driving: No driving for 24 hours after catherization Diet: regular diet Follow up Appointments: on site wastewater systems technician Dr Castelan to discuss the next options [...] next steps. Johnathan Kothari PA-C Interventional Cardiology [facility] Heart [facility] V[facility] Center [facility] Pager [phone] documented in this encounter Medications at Time [...] EST Pt d/c'd post cardiac cath to [facility] before going home. He is accompanied by his . Pt's R radial and R AC sites are benign. Sling placed on R arm as reminder not to use wrist. * Shante Duke RN - 06/03/2020 11:30 AM EST Patient had cranberry/grape juice mixture this morning around 0730. labor contractor called, Yobani from [facility] notified and said that is okay. MD Aline also notified. Shante Duke RN documented in this encounter H&P Notes * Ivon Gracia PA - 06/03/2020 11:33 AM EST Patient Name: Johnson Tobar Patient Age: 69 y.o. Birthdate: 1950 Admit date: 06/03/2020 Attending Physician: Jim Castelan MD [facility] Heart & Vascular Center Interventional Cardiology Adult [...] RASHEL Champion Interventional Cardiology 06/03/20 11:33 AM [facility] Pager: [phone] documented in this encounter Miscellaneous Notes * Brief Op Note - Jim Castelan MD - 06/03/2020 12:28 PM EST Preliminary Cardiac Catheterization Procedure Note: Patient Name: Johnson Tobar : [id number] MR#: [id number] Case Date: 06/03/2020 Concrete Crusher Loader Operator: Surgeon(s) and Role: * Jim Castelan MD - Primary * Johnathan Kothari PA - Physician Insurance Sales Producer Preoperative diagnosis: /PRE TAVR Postoperative diagnosis: * [...] 2:30 PM EST [place] [address] Susanna Cm APRN [facility] [place] [address] documented as of this encounter Procedures Procedure [...] HOSPITAL LABORATORY Leukocytes, Urine Dipstick Negative Negative [facility] LABORATORY Appearance, Urine Dipstick Clear Clear [facility] Specific [place] Urine Automated >=1.030(A) 1.006 - 1.030 [facility] Color, Urine Dipstick Yellow Yellow [facility] Urine specimen (specimen) 06/03/2020 4:36 PM EST 06/03/2020 4:36 PM EST Narrative Resulting Agency Comment Spec In Lab Chun Wiley MD URINE ORDERABLES [facility] [place] [address] * XR Chest PA & Lateral (Generic) (06/03/2020 4:21 PM EST) Anatomical Region Laterality Modality Chest N/A Digital Radiogra phy Impressions 06/03/2020 4:47 PM EST No radiographic evidence of acute cardiopulmonary disease. Thank you for letting us participate in the care of this patient. For questions regarding this report, please contact the number below. ? Narrative 06/03/2020 4:47 PM EST EXAMINATION: XR [...] below. Chun Wiley MD IMG DX ORDERABLES * [...] HEMATOLOGY ORDERABL ES [facility] [place] [address] * Hepatic Function Panel (06/03/2020 4:10 PM [...] Lab Chun Wiley MD CHEMISTRY ORDERABLE S [facility] [place] [address] * (ABNORMAL) Basic Metabolic Panel (non-fasting) (06/03/2020 [...] of body mass or the acutely ill. [email or web address]/[facility]nkf eGFR 71 >=60 mL/min/1. 73 m?? [facility] Comment: The eGFR was calculated using the CKD-EPI equation. As with all creatinine based estimates of kidney function, eGFR values calculated with the CKD-EPI equation are not accurate in patients with acute kidney failure, extremes of body mass or the acutely ill. [email or web address]/[facility]nk[facility] Blood specimen (specimen) 06/03/2020 4:10 PM EST 06/03/2020 4:53 PM EST Narrative Resulting Agency Comment Spec In Lab Chun Wiley MD CHEMISTRY ORDERABLE S [facility] [place] [address] * (ABNORMAL) Point of Care Blood Gas Historical (06/03/2020 1:08 PM EST) pH, POC 7.40 7.35 - 7.45 [facility] pCO2, POC 34(L) 35 - 45 mmHg [facility] pO2, POC 74(L) 85 - 104 mmHg [facility] Base Excess, POC -3.0 -3.0 - 3.0 mmol/L [facility] Bicarbonate, POC 21.4 20.0 - 26.0 mmol/L [facility] Sodium, POC 138 135 - 145 mmol/L [facility] POC Potassium 4.5 3.5 - 5.0 mmol/L [facility] Ionized Calcium, POC 1.31 1.15 - 1.33 mmol/L [facility] POC Hematocrit 39.0(L) 40.0 - 51.0 % [facility] POC Calc Hgb 13.3(L) 13.7 - 17.5 gm/dL [facility] Comment:The calculation of h emoglobin from hematocrit assumes a normal MCHC. POC Bgas Loc CC LAB [facility] Blood specimen (specimen) 06/03/2020 1:08 PM EST 06/07/2020 9:00 AM EST Jim Castelna MD CHEMISTRY ORDERABLES Performing Organization Address [facility]/State/ZIP Co de Phone Number [facility] [place] [address] * CARDIAC CATHETERIZATION (06/03/2020 12:30 PM EST) Anatomical Region Laterality Modality Other Narrative 06/03/2020 12:59 PM EST ?[facility] ? Cardiac Catheterization/Intervention Report ? Patient Name: Ekaterina, Johnson R. ? Procedure Date: 06/03/2020 ? A #: [id number] ? Primary Physician: Jim Castelan ? Case #: [id number] ? File Name: [id number] ? Catheterization Order Number: [id number] ? [facility] ? Final Report [place], [place] ? Patient Name: ? Johnson R. Ekaterina ? ID#: ?[id number] ? : ?1950 ? Procedure Date: ? [...] was designated as ASA Class III. The HA clinical frailty scale ?is 3: Managing Well. [...] procedure was Elective. The indication for ?the laborer pullet farm visit is other indication. Chest pain symptom [...] Procedure Note Jim Castelan MD - 06/27/2020 [facility] Cardiac Catheterization/Intervention Report Patient Name: Johnson Tobar Procedure Date: 06/03/2020 A #: [id number] Primary Physician: Jim Castelan Case #: [id number] File Name: [id number] Catheterization Order Number: [id number] [facility] FinalReport [place], [place] Patient Name: Johnson Tobar ID#:[id number] :1950 Procedure Date: June 03, 2020 Case [...] was designated as ASA Class III. The [facility] clinical frailtyscale is 3: Managing Well. [...] diagnostic procedure was Elective. Theindication for the laborer pullet farm visit is other indication. 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) J-point elevation Abnormal ECG When compared with ECG of 26-MAY-2020 14:30, No significant change was found Confirmed by MD Mclain Daniel ([id number]) on 06/03/2020 1:23:54 PM MUSE SYSTEM 06/03/2020 11:3 7 AM EST 06/03/2020 1:23 PM EST Jim Castelan MD ECG ORDERABLES MUSE SYSTEM documented in this encounter Visit Diagnoses Diagnosis Aortic valve stenosis- Primary Aortic valve disorders Aortic valve stenosis, etiology of cardiac valve disease unspecified Nonrheumatic aortic valve stenosis Aortic valve disorders Aortic valve stenosis, etiology of cardiac valve disease unspecified Nonrheumatic aortic valve stenosis Aortic valve disorders documented in this encounter Admitting Diagnoses Diagnosis CAD (coronary artery disease) Coronary atherosclerosis of unspecified type of vessel, shinnecock or graft documented in this encounter Administered Medications Inactive Administered Medications - up to 3 most recent administrations Medication Order MAR Action Action Date Dose Rate Site fentaNYL 50 mcg/mL multi-dose injection ONCE PRN, Starting on Sat06/03/20 at 1210, Until Sat06/03/20 at 1228, Cath (Intra-Procedure), Routine Given 06/03/2020 12:10 PM EST 25 mcg heparin (porcine) 1,000 unit/mL injection ONCE PRN, Starting on Sat06/03/20 at 1214, Until Sat06/03/20 at 1228, Cath (Intra-Procedure), Routine Given 06/03/2020 12:14 PM EST 4,500 Units iohexoL (Omnipaque) 350 mg/mL solution ONCE PRN, Starting on Sat06/03/20 at 1225, Until Sat06/03/20 at 1228, Cath (Intra-Procedure), Routine Given 06/03/2020 12:25 PM EST 75 mLs midazolam (PF) (VERSED) multi-dose injection ONCE PRN, Starting on Sat06/03/20 at 1210, Until Sat06/03/20 at 1228, Cath (Intra-Procedure), Routine Given 06/03/2020 12:10 PM EST 1 mg verapamiL (Isoptin) injection ONCE PRN, Starting on Sat06/03/20 at 1208, Until Sat06/03/20 at 1228, Administer over 2 Minutes, Cath (Intra-Procedure) Given 06/03/2020 12:08 PM EST 2.5 mg documented in this encounter [...] MD) documented in this encounter Care Teams Supervisor Dog License Officer Relationship Specialty Start Date End Date Ramiro Ball MD [address] [place] [id number] PCP - General 06/06/10 02/17/24 documented as of this encounter
--- OUTSIDE RECORDS SUMMARY | 2024-03-26 15:54 | XMS_ITS | Encounter Summary ---
Author Organization [facility] Address [facility] Juan [place] [address] Care Team Providers Care Manufacturing Coordinator Name Role Phone Ramiro Ball MD Primary Care Provider [phone] Reason for Visit * Auth/Cert Specialty Diagnoses [...] Expiration Date Visits Re quested Visits Authorized [id number] 1 1 Encounter Details Date Type Department Care Team (Late st Contact Info) Description 06/13/2020 7:30 AM EST - 06/13/2020 1:47 PM EST Surgery [place] [address] Chun Stanton MD [facility] DR [place] [address] @REPLACE AORTIC VALVE, OPEN, W\CPB, W\PROSTHETIC VALVE (WRVU 41.32) Social History Tobacco Use Types Packs/Day Years [...] Sign Reading Time Taken Comments Blood Pressure 146/80 06/13/2020 6:27 AM EST 144/80 on L arm Pulse 70 06/13/2020 1:42 PM EST Temperature 35.7 ??C (96.3 ??F) 06/13/2020 1 :42 PM EST Respiratory Rate 16 06/13/2020 6:27 AM EST Oxygen Saturation 100% 06/13/2020 1:4 2 PM EST Inhaled Oxygen Concentration - - Weight 79.4 kg (175 lb 0.7 oz) 06/13/2020 6:27 AM EST Height 170.2 cm (5' 7.01) 06/13/2020 6 :27 AM EST Body Mass Index 29 06/13/2020 6:27 AM EST documented in this encounter Discharge Summaries * Joseph Persaud PA - 06/19/2020 8:53 AM EST Inpatient - Discharge Summary Patient Name: Johnson Tobar Patient Age: 69 y.o. Birthdate: 1950 Language: Uzbek Race: White Ethnicity: Not nor Admit Date: [...] office will schedule an appointment with your Bailer Tenders Supervisor, Dr. Lackey, in 2 weeks. ??? Our office will schedule an appointment with your Cardiac Surgeon, Dr. Chun Stanton, in 4weeks with a chest x-ray, EKG, and Echo before your appointment. Inpatient Provider Contact Information: [facility] Section of Cardiac Surgery [facility] [address] FAX [phone] Discharge Diagnoses (Hospital Problems) Primary Diagnoses: Aortic [...] 33.75) performed by Chun Stanton MD at [facility] MAIN OR ??? PRO CABG, ARTERY-VEIN, TWO N/A 06/13/2020 @CABG, TWO VENOUS GRAFTS & ARTERIAL GRAFT (WRVU 7.93) performed by Chun Stanton MD at [facility] MAIN OR ??? PRO ENDOSCOPY W/VIDEO-ASST VEIN HARVEST, CABG Right 06/13/2020 ENDOSCOPIC HARVEST VEIN(S) FOR CABG (WRVU 0.31) performed by Chun Stanton MD at [facility] MAIN OR ??? PRO REPLACE AORT VALV, PROSTH VALV N/A 06/13/2020 @REPLACE AORTIC VALVE, OPEN, W\CPB, W\PROSTHETIC VALVE (WRVU 41.32) performed by Chun Stanton MD at [facility] MAIN OR Prior To Admission Medications Medications [...] TABLET BY MOUTH TWICE A DAY 06/13/2020 [id number] ??? omeprazole (PriLOSEC) 20 mg Capsule, Delayed [...] ??He has treated hypertension, he is a ljt-mavimbx-oxmnjayyh diabetic. ??He has known dyslipidemia. ??He has had no known previous CVA or TIA. ??He has no known hepatic dysfunction he does have mild renal insufficiency with a baseline creatinine of about 1.3. ??He was not a user of tobacco. ??He is undergone prior appendectomy. ??He does have a family history of atherosclerotic disease in that his father following an CT at 48 years of age. He hasworked [...] x 3 Johnson Tobar was admitted to [facility] 06[facility]13[facility]2020 via the Same DayProgram. 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 Antibiotic prophylaxis: You will need to take antibiotics prior to many invasive tests and treatments, such as dental cleaning, which should be done every 6 months. Your primary care physician or your dentist can prescribe this medication. Please refer to the card with the [place] Heart Association Guidelines for more information. You have been provided with a copy of this card. Please refer to the [place] Heart Association Guidelines for more information. Good [...] Dr. Chun Stanton. You may use a [place] Track or treadmill but avoid any pulling [...] friends, go to a movie, go to quaker, etc. Heavy activities: No hunting, skiing, jogging, [...] should resume a low fat, low cholesterol, [place] Heart Association Diet. Driving: No driving until [...] office will schedule an appointment with your Bailer Tenders Supervisor, Dr. Lackey, in 2 weeks. ??? You have a follow up appointment with your Cardiac Surgeon, Dr. Chun Stanton, July 21at 1:00pm with a chest x-ray, EKG, and Echo before your appointment. Cardiac Rehabilitation: Johnson Tobar was seen today regarding participation in the outpatient Phase [address] [facility]. The patient agrees to a referral to this program. The referral will be sent at discharge and the patient should be contacted by the Program within 1- 2 weeks from discharge. Future Appointments and Orders Future Appointments and Orders Future Appointments Provider Department Dept Phone 07/21/2020 10:30 AM ECHO REGULAR Non-Invasive Cardiology Lab [facility] Arrive at: [facility] Program Associate Area 4A [phone] 07/21/2020 12:15 PM [facility] DX ROOM 2 XRay at [facility] Arrive at: [facility] Program Associate Area 3T [phone] Please go to [facility] Program Associate Area 3T ([facility] Location). 07/21/2020 1:00 PM Chun Stanton MD Cardiac Surgery at [facility] Arrive at: [facility] Program Associate Area 4A [phone] Future Orders Complete By Expires Echocardiogram Transthoracic([facility] or [facility]) [34593 CPT(R)] 07/16/2020 (Approximate) 09/13/2020 Process Instructions: Scheduling Instructions: Comments: Questions: Is a Bubble Study requested?: Does the patient have Congenital Heart Disease?: Does patient require sedation?: GA rationale: Where should this exam be performed?: [facility] EKG 12 Lead [93277 CPT(R)] 07/16/2020 (Approximate) 09/13/2020 Process Instructions: Scheduling Instructions: Questions: Which location will this be performed?: [place] Is a rhythm strip needed?: No XR Chest PA & Lateral (Generic) [37661 73901 Custom] 07/16/2020 (Approximate) 09/13/2020 Process Instructions: Scheduling Instructions: Comments: Questions: Where will study be performed?: [facility] Radiology Portable exam?: Reason for exam and clinical history: S/P AVR/CABGx3 Clinical information / pedraza questions: Stat read required?: Date of injury if applicable: Requested Time: Referral to Cardiac Rehab [LSD852 Custom] As directed Process Instructions: If no progress note charted, please enter Clinical details in comments. Scheduling Instructions: Questions: My question or request is: s/p AVR/CABG. Cardiac rehab at [facility] Referral to Home Health - at DISCHARGE [RCB9824 CPT(R)] As directed Process Instructions: Scheduling Instructions: Comments: DOCUMENTATION FOR VNA SERVICES (INCLUDING THOSE PATIENTS WITH MEDICARE COVERAGE REQUIRING HOME VNA SERVICES AND/OR HOSPICE SERVICES) PATIENT'S LOCATION: Johnson Tobar [address] [facility] [address] (home) No relevant phone numbers on file. 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 PHONE: [phone] FAX: [phone] RN orders: Cardiopulmonary assessment, incisional assessment, assess vital signs, assessment of rehab progress, medication management and effectiveness, home safety evaluation. PT ORDERS: Continue rehab for endurance, gait stability and strength with mobility and transfers. Home safety evaluation. Home exercise program if appropriate. Start of Care Date: 06/20/2020 SPECIAL INSTRUCTIONS: For any follow up questions, needs, or issues please call the Cardiac SurgeryOffice at [phone] FOR MEDICARE ONLY: (please delete this section [...] noted. Questions: Agency name and contact information: [employer] Patient location post discharge: home What services are requested: Registered Nurse Physical Therapy Occupational Therapy Start date: Responsible MD post discharge contact info: PCP Rodrick bryant [EQ134 Custom] As directed Process Instructions: Scheduling Instructions: Comments: Johnson Tobar [address] [facility] [address] (home) Diagnosis:s/p 05/3020 CABGx3 now with Unsteady gait Significant weakness, ataxia or gait abnormality Patient's: Hgt: 5'7 Wgt: 187 lb 13oz VENDOR: [employer] Nu[employer] Located @ [place], [place] Ordering: Front wheel walker IF d/c on Sat/Sun will be Delivered from [facility] weekend closet in [place] to pt's hospital room #: 449 Otherwise delivery by [facility]. Questions: Vendor Name/Contact information: [facility] @ [facility] Arrangements for VNA/home care: As above. VN RN OR PCP TO PLEASE REMOVE CHEST TUBE SUTURES ON OR AFTER 06/23/2020 Signed: RASHEL RIOS [facility] Section of Cardiac Surgery [facility] [address] FAX [phone] Date: 06/19/2020 CC: MD Quinn Zhang Robert E, MD [address] [place] [phone] documented in this encounter Discharge Instructions * [...] Chun Stanton and/or the Cardiac Surgery Physician Pipelines Supervisor Team may be reached at . ?? Antibiotic prophylaxis: You will need to take antibiotics prior to many invasive tests and treatments, such as dental cleaning, which should be done every 6 months. Your primary care physician or your dentist can prescribe this medication. Please refer to the card with the [place] Heart Association Guidelines for more information. You have been provided with a copy of this card. Please refer to the [place] Heart Association Guidelines for more information. Good [...] Dr. Chun Stanton. You may use a [place] Track or treadmill but avoid any pulling [...] friends, go to a movie, go to quaker, etc. ?? Heavy activities: No hunting, skiing, [...] should resume a low fat, low cholesterol, [place] Heart Association Diet. ?? Driving: No driving [...] office will schedule an appointment with your Bailer Tenders Supervisor, Dr. Lackey, in 2 weeks. ?? You have a follow up appointment with your Cardiac Surgeon, Dr. Chun Stanton, July 21 at 1:00pm with a chest x-ray, EKG, and Echo before your appointment. ?? Cardiac Rehabilitation: Johnson Tobar??was seen today regarding participation in the outpatient Phase [address] [facility]. The patient agrees to a referral to [...] PM EST Provided front wheel walker from [employer]; provided to pt the [facility] [employer] letter andcopy of [place] Physician Order/Patient Agreement Form (pt signed). Maru Lane RN Case Stake Setter of Care Management [email or web address] Pager: [phone] * Margaux Jones RN - 06/19/2020 11:54 AM EST AVS and medications reviewed at bedside. DC'd and D-lined. Pt home in private car. * Shaylee Ceja RN - 06/18/2020 6:21 PM ESTSummary: DME walker choice Office of Care Management(OCM)/electrician ship(RNCM)/Discharge Planning Weekend and Holidays Pager [phone] Service: Cardiac Surgery w/e pgr [phone] Referral from weekday RNCM that pt would [...] has choices, which vendors would bill his insurance([place], [employer], [facility] butthat not all open on weekend, that stores such as [employer], [employer] etc would have but he wouldhave to pay out of pocket and submit to insurance. Advised would be able to dispense one from [facility] to him at his room before d/c. IF he needs he agrees with : [facility] Located @ [facility] [address] GloriaDE Call Saturday Triage RNCM pgr [phone] for assist; and will add to their [...] 10:03 AM EST Cardiac Surgery Progress Note Johnsonfernanda Tobar is a 69 y.o. male 5 [...] sounds present Ext: WWP, 1+ edema Incisions: CATY CDI Tubes/Lines/Drains: piv Assessment/Plan: 69 y.o. male 5 Days Post-Op avr/cabg x 3. Increase lisinopril to home dose of 30 Endocrine following for DM2. Currently on SSI and half home dose of glipizide. Metformin not restarted yet. Met with early childhood special educator. Neuro: tylenol, oxy prn CV: Metop [...] 0600 and on the weekends please page [phone]. * Kaye Hooper RN - 06/17/2020 12:26 [...] 0600 and on the weekends please page [phone]. * Katherine Flores RN - 06/16/2020 3:13 [...] Johnson Tobar is a 69 y.o. male 3 Days [...] 0600 and on the weekends please page [phone]. * Katherine Flores RN - 06/15/2020 3:42 [...] Ale Caballero - 06/15/2020 3:23 PM EST Farm Contractor Encounter Note Patient Name: Johnson Tobar : [id number] MR#: [id number] Admit Date: 06/13/2020 5:56 AM Hospital Day [...] SpO2: [77 bpm-95 bpm] 06/14 0701 - 06/15 0700 In: 258.2 [I.V.:258.2] Out: 980 [Urine:895] [...] encourage ambulation GI: adat, protonix : D/C gallagher, continue to monitor I/O Renal: k prn, start lasix 20 PO BID Heme: asa 325 ID: no infection. Actively monitoring Endo: DM, SSI Dispo: transfer later Discussed with attending surgeon on rounds this morning. RASHEL Garcia 06/15/2020 Between the hours of 1800 - 0600 and on the weekends please page [phone]. * Mihaela Johnson RN - 06/14/2020 4:57 PM EST Johnson Tobar arrived to 449A @ 1640 [address] [facility]. Oriented to room, call blanco within reach, [...] 0600 and on the weekends please page [phone]. * Kris Mayen PA - 06/14/2020 11:02 AM EST Cardiac Surgery Progress Note Johnsno Tobar is a 69 y.o. male 1 [...] [69 bpm-118 bpm] Drips: NTG 30 06/13 0701 - 06/14 0700 In: 6436.7 [P.O.:60; I.V.:5163.7] [...] WWP, no edema Incisions: Dressing CDI Tubes/Lines/Drains: baltazar, aileen, ct x 3, nayana paz Assessment/Plan: 69 [...] 0600 and on the weekends please page [phone]. * Ramon Lucero RCP - 06/13/2020 4:47 PM EST Patient extubated to ms per order. Pt tolerating well. No distress [...] plan since last visit. Chun Stanton MD [phone] Source Note - Chun Stanton MD - [...] He has treated hypertension, he is a cvq-ymemgif-swboprpcx diabetic. He has known dyslipidemia. He has had no known previous CVA or TIA. He has no known hepatic dysfunction he does have mild renal insufficiency with a baseline creatinine of about 1.3. He was not a user of tobacco. He is undergone prior appendectomy. He does have a family history of atherosclerotic disease in that his father following an CT at 48 years of age. He has worked his entire life [employer]. His cardiac cath shows severe CAD ?? [...] given written informed consent. Chun Stanton MD [phone] * Chun Stanton MD - 06/13/2020 6:57 [...] He has treated hypertension, he is a ypv-adgujak-mjinyebdw diabetic. He has known dyslipidemia. He has had no known previous CVA or TIA. He has no known hepatic dysfunction he does have mild renal insufficiency with a baseline creatinine of about 1.3. He was not a user of tobacco. He is undergone prior appendectomy. He does have a family history of atherosclerotic disease in that his father following an CT at 48 years of age. He has worked his entire life [employer]. His cardiac cath shows severe CAD ?? [...] given written informed consent. Chun Stanton MD [phone] documented in this encounter Nursing Notes * [...] Stanton MD - 06/19/2020 12:00 PM EST [facility] Operative Note Patient Name: Johnson Tobar : [id number] MR#: [id number] Case Date: 06/13/2020 Surgeon: Surgeon(s) and Role: * Chun Stanton MD - Primary * Kris Mayen PA - Physician Pipelines Supervisor ?? Preoperative diagnosis: , CAD ?? Postoperative [...] Overview Goal: Plan of Care Review 06/17/20 1832 Coping/Psychosocial Plan Of Care Reviewed With patient [...] 06/13/20. ??He transferred from the CCU to [facility] on 06/14/20. 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 ??Enjoys TV and sports- likes [employer] and [employer]. ?? Equipment at home:??none Fall history:??none. Precautions/Special [...] Total Evaluation Minutes, Physical Therapy: 16(TE-Fx1) Amberly Barnard, PT, DPT Pager: [phone] Physical Therapy Inpatient Rehabilitation Department * Plan of Care - Nicole Domínguez, RN - 06/17/2020 7:59 AM EST Pt [...] reach. * Plan of Care - Brennan Watts PT - 06/16/2020 12:30 PM EST Physical [...] 06/13/20. He transferred from the CCU to [facility] on 06/14/20. 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 Enjoys TV and sports- likes [employer] and [employer]. Equipment at home: none Fall history: none. [...] end of session. Left on toilet with bellstaff aware and monitoring. Objective: Patient seen for [...] and cues. Pt educated to practice with bellstaff the next 24 hours with bed flat. [...] walker again next walk with patient and bellstaff. ?? Stand to sit with supervision and [...] as above and to walk more with bellstaff, practice bed mobility, and to call for bellstaff assistance with all mobility. Assessment: Johnson Tobar [...] the bathroom 2x during session today, and bellstaff aware. He plans to return home with [...] Physical Therapy: 46(functional mobility) BRENNAN WATTS, PT Pager:[phone] Physical Therapy Inpatient Rehabilitation Department * Consult Note - Jody Reed RN - 06/16/2020 11:32 AM EST [facility] CARDIAC REHABILITATION Johnson Tobar was seen today regarding participation in the outpatient Phase [address] [facility]. The patient agrees to a referral to [...] scanned docs. Burst of SVT this morning. PETE notified. Insulin gtt maintained per protocol. BM [...] 06/13/20. He transferred from the CCU to [facility] on 06/14/20. 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 Enjoys TV and sports- likes [employer] and [employer]. Equipment at home: none Fall history: none. [...] as above and to walk more with bellstaff and to call for bellstaff assistance with all mobility. Assessment: Johnson Tobar [...] Evaluation Minutes, Physical Therapy: 31(functional mobility) BRENNAN WATTS, PT Pager:[phone] Physical Therapy Inpatient Rehabilitation Department * Consult Note - Zenia Lanza APRN - 06/15/2020 3:50 PM EST Images from [...] management and to provide a review of detention diabetes care. Diabetes History: Johnson Tobar has had diabetes for about 5 years. He states it is pre diabetes but takes 2 oral agents. He reports he gets diarrhea daily from metformin. 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 He had to ask for help in the [employer] underwood this year due to [place]NE[place]. He [...] ??? insulin regular human 3 Units/hr (06/15/20 9738) PRN: glucose 40% oral geL OR dextrose [...] while healing if necessary. 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 Monitoring - continue BG tid ac & hs Diet - low fat/low carb diet Exercise - weight-bearing exercise 30 min/day, as tolerated Thank you for allowing us to provide care for your patient Zenia Lanza APRN Endocrinology Pager [phone] minutes of this 80 minute visit [...] reach. * Plan of Care - Brennan Watts PT - 06/14/2020 5:20 PM EST Physical [...] 06/13/20. He transferred from the CCU to [facility] on 06/14/20. PMH of DJD, HLD, HTN, [...] 33.75) performed by Chun Stanton MD at [facility] MAIN OR ??? PRO CABG, ARTERY-VEIN, TWO N/A 06/13/2020 @CABG, TWO VENOUS GRAFTS & ARTERIAL GRAFT (WRVU 7.93) performed by Chun Stanton MD at [facility] MAIN OR ??? PRO ENDOSCOPY W/VIDEO-ASST VEIN HARVEST, CABG Right 06/13/2020 ENDOSCOPIC HARVEST VEIN(S) FOR CABG (WRVU 0.31) performed by Chun Stanton MD at [facility] MAIN OR ??? 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 Enjoys TV and sports- likes [employer]. Equipment at home: none Fall history: none. [...] the CCU and assisted with transfer to [facility] and helped settle patient in new room. [...] Total Evaluation Minutes, Physical Therapy: 50 BRENNAN WATTS, PT Pager: [phone] Physical Therapy Inpatient Rehabilitation Department * Initial [...] -Emili would be surrogate decision maker per [place] surrogate decision making law. Any patient receiving care at [facility] must abide by [place] law. The hierarchy for surrogate decision making [...] (i) The agent with financial power of corporate associate attorney or a conservator appointed in accordance [...] Information: none noted Health/Prescription Coverage: Primary Insurance: [facility] MANAGED MEDICARE Secondary Insurance: N/A Prescription Coverage: yes Preferred Pharmacy: [facility] [place] Other: nonenoted Primary Care Provider: Ramiro Ball MD [phone] Patient/Caregiver Goals of Treatment: dc to home Potential Needs for Transition of Care: Rehab/SNF: no Home Health: Natalie SCHROEDER DME: no Dialysis: no Community Resources: home health Transportation: family/spouse Other: none I reviewed a list of Home Health Agencies/DME vendors with patient which serve the preferred geographic area. If patient chooses one of our affiliates, I will provide our affiliate letter. Education was provided about the right to choose where referrals are placed. Patient requests referral to: [facility] PHONE: [phone] FAX: [phone] Expected date of discharge: ?. Referral routed to the Archives Specialist for matching with agency/vendor and to provide any required information. Anticipated Barriers to Discharge/Special Considerations: no barriers to DC that are identified at this time Assessment: per MDs note:69-year-old male with known aortic stenosis.He has known atherosclerotic coronary disease having undergone PCI with stent placement of an LAD lesion in the past. ??He has treated hypertension, he is a xpd-ngtisuc-mdvhlhsvq diabetic. ??He has known dyslipidemia. ??He has had no known previous CVA or TIA. ??He has no known hepatic dysfunction he does have mild renal insufficiency with a baseline creatinine of about 1.3. ??He was not a user of tobacco. ??He is undergone prior appendectomy. ??He does have a family history of atherosclerotic disease in that his father following an CT at 48 years of age. ??He has [...] ??Plan: anticipate to DC to home with [facility] A member of the Care Management team will continue to monitor progress, follow for continuity of care and assist with transition of care planning. Makenzie Navarrete RN Pager:[phone] Ext :[phone] * Brief Op Note - Chun Stanton MD - 06/13/2020 1:26 PM EST Brief Operative Note Patient Name: Johnson Tobar : [id number] MR#: [id number] Case Date: 06/13/2020 Surgeon: Surgeon(s) and Role: * Chun Stanton MD - Primary * Kris Mayen PA - Physician Pipelines Supervisor Preoperative diagnosis: , CAD Postoperative diagnosis: , [...] 2:30 PM EST [place] [address] Susanna Cm APRN [facility] [address] [place] [address] Scheduled Referrals Name Type Priority Associated Diagnoses [...] 0 8:19 AM EST Endoscopy W/Video-Asst Vein [place], Cabg ([id number]) 06/13/2020 7:26 AM EST , CAD Cabg, Artery-Vein, Two ([id number]) 06/13/2020 7:26 AM EST , CAD Cabg, Arterial, Single ([id number]) 06/13/2020 7:26 AM EST , CAD Replacement Prosthetic Aortic Valve Open W Cardiopulmonary Bypass Homogrf/Stent ([id number]) 06/13/2020 7:26 AM EST , CAD PREPARE [...] (Bezet) 432 ms MUSE SYSTEM Calculated P [place] 20 degrees MUSE SYSTEM Calculated R [place] -17 degrees MUSE SYSTEM Calculated T [place] -34 degrees MUSE SYSTEM INTERPRETATION Normal sinus rhythm Possible Left atrial enlargement Left ventricular hypertrophy Inferior infarct (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-2020) T wave abnormality, consider lateral ischemia Abnormal ECG When compared with ECG of 13-JUN-2020 14:20, ST no longer elevated in Anterior leads T wave inversion now evident in Anterolateral leads Confirmed by MD Mclain Daniel ([id number]) on 07/21/2020 6:32:41 PM MUSE SYSTEM 07/21/2020 [...] PM EST Procedure: ?Transthoracic Echocardiogram Patient: ?ELMER JOHNSON R ? (Age): 1950(69y) Med Rec#: ? [id number] ?Sex: ?M ? Site Loc: ? [facility] ?Ht / Wt: ??170(cm)/84(kg) Pt. Loc: ?Echo Lab ?BSA: ?1.96 Study Date: ?? 07/21/2020 ?Pt. Type: Outpatient Tape: ? Referring: BARRON Reading: John Andrade ([id number]) Slumber Room Attendant: Meaghan Cosby [facility], [place] Diagnosis: *Presence of other heart-valve replacement [...] Vmax ?1.11 ? m/sec ? MV deceleration [id number] ?msec ? MV A-wave Vmax ?1.57 ? [...] ? Mid-Inferior ?Normal ? Mid-Inferoseptal ?Normal ? [place]-Septal ? Normal ? [place]-Anterior ? Normal ? [place]-Lateral ?Normal ? [place]-Inferior ? Normal ? [place]-Tip ?Normal ? This report has been electronically signed by: John Andrade MD ? 07/21/2020 12:13:35 Images reviewed and interpretation verified [facility] Cardiac Ultrasound Laboratory Procedure Note John Andrade MD - 07/21/2020 Procedure: Transthoracic Echocardiogram Patient: ELMER López DOB(Age): 1950(69y) Med Rec#: [id number] Sex: M Site Loc: [facility] Ht / Wt: 170(cm)/84(kg) Pt. Loc: Echo Lab BSA: 1.96 Study Date: 07/21/2020 Pt. Type: Outpatient Tape: Referring: BARRON Reading: John Andrade ([id number]) Slumber Room Attendant: Meaghan Cosby [facility]CS, FASE Diagnosis: *Presence of [...] MV E-wave Vmax 1.11 m/sec MV deceleration [id number] msec MV A-wave Vmax 1.57 m/sec MV [...] Normal Mid-Posterolateral Normal Mid-Inferior Normal Mid-Inferoseptal Normal Gur[place]-Septal Normal Gur[place]-Anterior Normal [place]-Lateral Normal [place]-Inferior Normal [place]-Tip Normal This report has been electronically signed by: John Andrade MD 07/21/2020 12:13:35 Images reviewed and interpretation verified [facility] Cardiac Ultrasound Laboratory Chun Stanton MD ECHO ORDERABLES * POCT Glucose (06/19/2020 7:43 AM EST) Glucose, POC 155 65 - 199 mg/dL [facility] Comment: Supplemental ranges: <140 mg/dL before meals <180 mg/dL all other times of the day Blood specimen (specimen) 06/19/2020 7:43 AM EST 06/19/2020 7:43 AM EST Chun Stanton MD POINT OF CARE TEST ORDERABLES [facility] [place] [address] * POCT Glucose (06/19/2020 4:43 AM EST) Glucose, POC 147 65 - 199 mg/dL [facility] Comment: Supplemental ranges: <140 mg/dL before meals <180 mg/dL all other times of the day Blood specimen (specimen) 06/19/2020 4:43 AM EST 06/19/2020 4:43 AM EST Chun Stanton MD POINT OF CARE TEST ORDERABLES Performing Organization Address [facility] Co de Phone Number [facility] [place] [address] * Potassium (06/19/2020 3:40 AM EST) [facility] Signature Potassium 3.9 3.5 - 5.0 mmol/L [facility] Comment: Please note: ??Patients with [...] MD CHEMISTRY ORDERABLE S Performing Organization Address [facility] Co de Phone Number [facility] [place] [address] * POCT Glucose (06/18/2020 11:28 PM EST) Glucose, POC 167 65 - 199 mg/dL [facility] Comment: Supplemental ranges: <140 mg/dL before meals <180 mg/dL all other times of the day Blood specimen (specimen) 06/18/2020 11:28 PM EST 06/18/2020 11:28 PM EST Chun Stanton MD POINT OF CARE TEST ORDERABLES Performing Organization Address [facility] Co de Phone Number [facility] [place] [address] * POCT Glucose (06/18/2020 8:22 PM EST) Glucose, POC 181 65 - 199 mg/dL [facility] Comment: Supplemental ranges: <140 mg/dL before meals <180 mg/dL all other times of the day Blood specimen (specimen) 06/18/2020 8:22 PM EST 06/18/2020 8:22 PM EST Chun Stanton MD POINT OF CARE TEST ORDERABLES Performing Organization Address [facility] de Phone Number [facility] [place] [address] * POCT Glucose (06/18/2020 3:14 PM EST) Glucose, POC 145 65 - 199 mg/dL [facility] Comment: Supplemental ranges: <140 mg/dL before meals <180 mg/dL all other times of the day Blood specimen (specimen) 06/18/2020 3:14 PM EST 06/18/2020 3:14 PM EST Chun Stanton MD POINT OF CARE TEST ORDERABLES Performing Organization Address [facility] de Phone Number [facility] [place] [address] * (ABNORMAL) POCT Glucose (06/18/2020 11:58 AM EST) Glucose, POC 220(H) 65 - 199 mg/dL [facility] Comment: Supplemental ranges: <140 mg/dL before meals <180 mg/dL all other times of the day Blood specimen (specimen) 06/18/2020 11:58 AM EST 06/18/2020 11:58 AM EST Chun Stanton MD POINT OF CARE TEST ORDERABLES Performing Organization Address City/State/[facility] de Phone Number [facility] [place] [address] * (ABNORMAL) POCT Glucose (06/18/2020 11:50 AM EST) Glucose, POC 245(H) 65 - 199 mg/dL [facility] Comment: Supplemental ranges: <140 mg/dL before meals <180 mg/dL all other times of the day Blood specimen (specimen) 06/18/2020 11:50 AM EST 06/18/2020 11:50 AM EST Chun Stanton MD POINT OF CARE TEST ORDERABLES Performing Organization Address [facility] de Phone Number [facility] [place] [address] * POCT Glucose (06/18/2020 7:51 AM EST) Glucose, POC 185 65 - 199 mg/dL [facility] Comment: Supplemental ranges: <140 mg/dL before meals <180 mg/dL all other times of the day Blood specimen (specimen) 06/18/2020 7:51 AM EST 06/18/2020 7:51 AM EST Chun Stanton MD POINT OF CARE TEST ORDERABLES Performing Organization Address [facility] de Phone Number [facility] [place] [address] * Potassium (06/18/2020 5:28 AM EST) Potassium 3.7 3.5 - 5.0 mmol/L [facility] Comment: Please note: ??Patients with [...] MD CHEMISTRY ORDERABLE S Performing Organization Address [facility]/ZIP Co de Phone Number [facility] [place] [address] * POCT Glucose (06/18/2020 5:02 AM EST) Glucose, POC 176 65 - 199 mg/dL [facility] Comment: Supplemental ranges: <140 mg/dL before meals <180 mg/dL all other times of the day Blood specimen (specimen) 06/18/2020 5:02 AM EST 06/18/2020 5:02 AM EST Chun Stanton MD POINT OF CARE TEST ORDERABLES Performing Organization Address [facility] Co de Phone Number [facility] [place] [address] * POCT Glucose (06/18/2020 4:03 AM EST) Glucose, POC 157 65 - 199 mg/dL [facility] Comment: Supplemental ranges: <140 mg/dL before meals <180 mg/dL all other times of the day Blood specimen (specimen) 06/18/2020 4:03 AM EST 06/18/2020 4:03 AM EST Chun Stanton MD POINT OF CARE TEST ORDERABLES Performing Organization Address [facility] Co de Phone Number [facility] [place] [address] * (ABNORMAL) POCT Glucose (06/17/2020 11:15 PM EST) Glucose, POC 209(H) 65 - 199 mg/dL [facility] Comment: Supplemental ranges: <140 mg/dL before meals <180 mg/dL all other times of the day Blood specimen (specimen) 06/17/2020 11:15 PM EST 06/17/2020 11:15 PM EST Chun Stanton MD POINT OF CARE TEST ORDERABLES Performing Organization Address City/[facility]/ZIP Co de Phone Number [facility] [place] [address] * POCT Glucose (06/17/2020 8:38 PM EST) Glucose, POC 182 65 - 199 mg/dL [facility] Comment: Supplemental ranges: <140 mg/dL before meals <180 mg/dL all other times of the day Blood specimen (specimen) 06/17/2020 8:38 PM EST 06/17/2020 8:38 PM EST Chun Stanton MD POINT OF CARE TEST ORDERABLES Performing Organization Address City/[facility] Co de Phone Number [facility] [place] [address] * POCT Glucose (06/17/2020 4:27 PM EST) Glucose, POC 147 65 - 199 mg/dL [facility] Comment: Supplemental ranges: <140 mg/dL before meals <180 mg/dL all other times of the day Blood specimen (specimen) 06/17/2020 4:27 PM EST 06/17/2020 4:27 PM EST Chun Stanton MD POINT OF CARE TEST ORDERABLES Performing Organization Address City/[facility]/ZIP Co de Phone Number [facility] [place] [address] * POCT Glucose (06/17/2020 2:08 PM EST) Glucose, POC 162 65 - 199 mg/dL [facility] Comment: Supplemental ranges: <140 mg/dL before meals <180 mg/dL all other times of the day Blood specimen (specimen) 06/17/2020 2:08 PM EST 06/17/2020 2:08 PM EST Chun Stanton MD POINT OF CARE TEST ORDERABLES [facility] [place] [address] * (ABNORMAL) POCT Glucose (06/17/2020 11:27 AM EST) Glucose, POC 315(H) 65 - 199 mg/dL [facility] Comment: Supplemental ranges: <140 mg/dL before meals <180 mg/dL all other times of the day Blood specimen (specimen) 06/17/2020 11:27 AM EST 06/17/2020 11:27 AM EST Chun Stanton MD POINT OF CARE TEST ORDERABLES [facility] [place] [address] * POCT Glucose (06/17/2020 7:46 AM EST) Glucose, POC 169 65 - 199 mg/dL [facility] Comment: Supplemental ranges: <140 mg/dL before meals <180 mg/dL all other times of the day Blood specimen (specimen) 06/17/2020 7:46 AM EST 06/17/2020 7:46 AM EST Chun Stanton MD POINT OF CARE TEST ORDERABLES Performing Organization Address City/[facility]/ZIP Co de Phone Number [facility] [place] [address] * POCT Glucose (06/17/2020 4:41 AM EST) Glucose, POC 172 65 - 199 mg/dL [facility] Comment: Supplemental ranges: <140 mg/dL before meals <180 mg/dL all other times of the day Blood specimen (specimen) 06/17/2020 4:41 AM EST 06/17/2020 4:41 AM EST Chun Stanton MD POINT OF CARE TEST ORDERABLES [facility] [place] [address] * Potassium (06/17/2020 4:36 AM EST) Potassium 3.9 3.5 - 5.0 mmol/L [facility] Comment: Please note: ??Patients with [...] MD CHEMISTRY ORDERABLE S Performing Organization Address [facility] Co de Phone Number [facility] [place] [address] * POCT Glucose (06/16/2020 11:33 PM EST) Glucose, POC 157 65 - 199 mg/dL [facility] Comment: Supplemental ranges: <140 mg/dL before meals <180 mg/dL all other times of the day Blood specimen (specimen) 06/16/2020 11:33 PM EST 06/16/2020 11:33 PM EST Chun Stanton MD POINT OF CARE TEST ORDERABLES Performing Organization Address [facility]/ZIP Co de Phone Number [facility] [place] [address] * POCT Glucose (06/16/2020 7:59 PM EST) Glucose, POC 198 65 - 199 mg/dL [facility] Comment: Supplemental ranges: <140 mg/dL before meals <180 mg/dL all other times of the day Blood specimen (specimen) 06/16/2020 7:59 PM EST 06/16/2020 7:59 PM EST Chun Stanton MD POINT OF CARE TEST ORDERABLES [facility] [place] [address] * (ABNORMAL) POCT Glucose (06/16/2020 4:07 PM EST) Glucose, POC 211(H) 65 - 199 mg/dL [facility] Comment: Supplemental ranges: <140 mg/dL before meals <180 mg/dL all other times of the day Blood specimen (specimen) 06/16/2020 4:07 PM EST 06/16/2020 4:07 PM EST Chun Stanton MD POINT OF CARE TEST ORDERABLES Performing Organization Address [facility] de Phone Number [facility] [place] [address] * (ABNORMAL) POCT Glucose (06/16/2020 11:51 AM EST) Glucose, POC 224(H) 65 - 199 mg/dL [facility] Comment: Supplemental ranges: <140 mg/dL before meals <180 mg/dL all other times of the day Blood specimen (specimen) 06/16/2020 11:51 AM EST 06/16/2020 11:51 AM EST Chun Stanton MD POINT OF CARE TEST ORDERABLES Performing Organization Address [facility] Co de Phone Number [facility] [place] [address] * (ABNORMAL) POCT Glucose (06/16/2020 9:33 AM EST) Glucose, POC 252(H) 65 - 199 mg/dL [facility] Comment: Supplemental ranges: <140 mg/dL before meals <180 mg/dL all other times of the day Blood specimen (specimen) 06/16/2020 9:33 AM EST 06/16/2020 9:33 AM EST Chun Stanton MD POINT OF CARE TEST ORDERABLES [facility] [place] [address] * XR Chest PA & Lateral (Generic) [...] please contact the number below. ? Narrative 06/16/2020 10:45 AM EST EXAMINATION: XR [...] Glucose, POC 193 65 - 199 mg/dL [facility] Comment: Supplemental ranges: <140 mg/dL before meals <180 mg/dL all other times of the day Blood specimen (specimen) 06/16/2020 8:24 AM EST 06/16/2020 8:24 AM EST Chun Stanton MD POINT OF CARE TEST ORDERABLES [facility] [place] [address] * POCT Glucose (06/16/2020 6:32 AM EST) Glucose, POC 169 65 - 199 mg/dL [facility] Comment: Supplemental ranges: <140 mg/dL before meals <180 mg/dL all other times of the day Blood specimen (specimen) 06/16/2020 6:32 AM EST 06/16/2020 6:32 AM EST Chun Stanton MD POINT OF CARE TEST ORDERABLES [facility] [place] [address] * POCT Glucose (06/16/2020 5:36 AM EST) [facility] Glucose, POC 175 65 - 199 mg/dL [facility] Comment: Supplemental ranges: <140 mg/dL before meals <180 mg/dL all other times of the day Blood specimen (specimen) 06/16/2020 5:36 AM EST 06/16/2020 5:36 AM EST Chun Stanton MD POINT OF CARE TEST ORDERABLES Performing Organization Address City/[facility]/ZIP Co de Phone Number [facility] [place] [address] * (ABNORMAL) Differential, Automated (06/16/2020 4:54 AM EST) [facility] Neutrophil % 76.4 % [facility] Neutrophil Absolute 9.41(H) 1.70 - 6.10 x10(3)/mc L [facility] Lymph % 12.4 % [facility] Lymphocytes Abs 1.5 0.9 - 3.2 x10(3)/mc L [facility] Monocyte % 9.8 % [facility] Monocyte Abs 1.2(H) 0.3 - 0.9 x10(3)/mc L [facility] Eos % 0.6 % [facility] Eosinophils Abs 0.1 0.0 - 0.4 x10(3)/mc L [facility] Basophil % 0.3 % [facility] Baso Absolute 0.0 0.0 - 0.1 x10(3)/mc L [facility] Immature Gran % 0.50 % [facility] Comment: Immature granulocytes(IG's)percentage and absolute count will include metamyelocytes, myelocytes, and promyelocytes. Blood smears from CBCs yielding IG's will be scanned manually for concordance. If this scan disagrees with the automated IG or if promyelocytes are noted, a manual differential will be performed. Immature Gran Absolute 0.06(H) 0.00 - 0.04 x10(3)/mc L [facility] Blood specimen (specimen) 06/16/2020 4:54 AM EST 06/16/2020 5:33 AM EST Narrative Resulting Agency Comment Spec In Lab Kris KISER HEMATOLOGY ORDERABLE S [facility] [place] [address] * (ABNORMAL) Hemogram (06/16/2020 4:54 AM EST) White Blood Cell 12.3(H) 4.0 - 9.5 x10(3)/mc L [facility] Red Blood Cell 3.15(L) 4.58 - 5.54 x10(6)/mc L [facility] Hemoglobin 9.0(L) 13.7 - 16.5 gm/dL [facility] Hematocrit 27.6(L) 40.5 - 48.5 % [facility] Mean Cell Volume 87.6 82.9 - 93.1 fL [facility] Mean Cell Hemoglobin 28.6 27.5 - 32.1 pg [facility] Mean Cell Hemoglobin Concentration 32.6 32.0 - 35.7 gm/dL [facility] Platelet 112(L) 145 - 357 x10(3)/mc L [facility] RDW Standard Deviation 45.2(H) 36.0 - 45.0 fL [facility] RDW coefficient of variation 14.3(H) 11.4 - 13.8 % [facility] Mean Platelet Volume 12.3 7.6 - 12.9 fL [facility] NRBC% auto 0.0 % [facility] NRBC Absolute 0.000 0.000 - 0.000 x10(3)/mc L [facility] Blood specimen (specimen) 06/16/2020 4:54 AM EST 06/16/2020 5:33 AM EST Narrative Resulting Agency Comment Spec In Lab Kris KISER HEMATOLOGY ORDERABLE S [facility] [place] [address] * (ABNORMAL) Basic Metabolic Panel (non-fasting) (06/16/2020 4:54 AM EST) Glucose 163 65 - 199 mg/dL [facility] Comment:Diabetes: >=200 mg/d L plus symptoms Blood Urea Nitrogen 19 10 - 20 mg/dL [facility] Creatinine 1.06 0.80 - 1.50 mg/dL [facility] Sodium 133(L) 135 - 145 mmol/L [facility] Potassium 4.6 3.5 - 5.0 mmol/L [facility] Comment: Please note: ??Patients with WBC >100,000 may have falsely elevated Potassium levels. ??For accurate Potassium quantification in these patients send serum separator tube (gold top) for subsequent determinations. ??Contact the Clinical Chemistry Laboratory if there are any questions. Chloride 101 98 - 107 mmol/L [facility] Carbon Dioxide 24 22 - 31 mmol/L [facility] Anion Gap 8 5 - 15 mmol/L [facility] Calcium 8.5 8.5 - 10.5 mg/dL [facility] Est Glomerular Filtration Rate 71 >=60 mL/min/1. 73 m?? [facility] Comment: This patient? s estimated glomerular [...] MD CHEMISTRY ORDERABLE S Performing Organization Address City/[facility]/ZIP Co de Phone Number [facility] [place] [address] * POCT Glucose (06/16/2020 4:38 AM EST) Glucose, POC 154 65 - 199 mg/dL [facility] Comment: Supplemental ranges: <140 mg/dL before meals <180 mg/dL all other times of the day Blood specimen (specimen) 06/16/2020 4:38 AM EST 06/16/2020 4:38 AM EST Chun Stanton MD POINT OF CARE TEST ORDERABLES Performing Organization Address [facility] Co de Phone Number [facility] [place] [address] * POCT Glucose (06/16/2020 3:31 AM EST) Glucose, POC 178 65 - 199 mg/dL [facility] Comment: Supplemental ranges: <140 mg/dL before meals <180 mg/dL all other times of the day Blood specimen (specimen) 06/16/2020 3:31 AM EST 06/16/2020 3:31 AM EST Chun Statnon MD POINT OF CARE TEST ORDERABLES Performing Organization Address City/[facility] Co de Phone Number [facility] [place] [address] * POCT Glucose (06/16/2020 2:42 AM EST) Glucose, POC 182 65 - 199 mg/dL [facility] Comment: Supplemental ranges: <140 mg/dL before meals <180 mg/dL all other times of the day Blood specimen (specimen) 06/16/2020 2:42 AM EST 06/16/2020 2:42 AM EST Chun Stanton MD POINT OF CARE TEST ORDERABLES Performing Organization Address City/[facility]/ZIP Co de Phone Number [facility] [place] [address] * POCT Glucose (06/16/2020 1:28 AM EST) Glucose, POC 198 65 - 199 mg/dL [facility] Comment: Supplemental ranges: <140 mg/dL before meals <180 mg/dL all other times of the day Blood specimen (specimen) 06/16/2020 1:28 AM EST 06/16/2020 1:28 AM EST Chun Stanton MD POINT OF CARE TEST ORDERABLES Performing Organization Address [facility] Co de Phone Number [facility] [place] [address] * POCT Glucose (06/15/2020 11:41 PM EST) Glucose, POC 133 65 - 199 mg/dL [facility] Comment: Supplemental ranges: <140 mg/dL before meals <180 mg/dL all other times of the day Blood specimen (specimen) 06/15/2020 11:41 PM EST 06/15/2020 11:41 PM EST Chun Stanton MD POINT OF CARE TEST ORDERABLES Performing Organization Address City/[facility]/ZIP Co de Phone Number [facility] [place] [address] * POCT Glucose (06/15/2020 10:28 PM EST) Glucose, POC 141 65 - 199 mg/dL [facility] Comment: Supplemental ranges: <140 mg/dL before meals <180 mg/dL all other times of the day Blood specimen (specimen) 06/15/2020 10:28 PM EST 06/15/2020 10:28 PM EST Chun Stanton MD POINT OF CARE TEST ORDERABLES Performing Organization Address City/[facility] Co de Phone Number [facility] [place] [address] * POCT Glucose (06/15/2020 9:34 PM EST) Glucose, POC 140 65 - 199 mg/dL [facility] Comment: Supplemental ranges: <140 mg/dL before meals <180 mg/dL all other times of the day Blood specimen (specimen) 06/15/2020 9:34 PM EST 06/15/2020 9:34 PM EST Chun Stanton MD POINT OF CARE TEST ORDERABLES Performing Organization Address [facility] Co de Phone Number [facility] [place] [address] * POCT Glucose (06/15/2020 8:44 PM EST) Glucose, POC 120 65 - 199 mg/dL [facility] Comment: Supplemental ranges: <140 mg/dL before meals <180 mg/dL all other times of the day Blood specimen (specimen) 06/15/2020 8:44 PM EST 06/15/2020 8:44 PM EST Chun Stanton MD POINT OF CARE TEST ORDERABLES Performing Organization Address City/[facility] Co de Phone Number [facility] [place] [address] * POCT Glucose (06/15/2020 7:17 PM EST) Glucose, POC 115 65 - 199 mg/dL [facility] Comment: Supplemental ranges: <140 mg/dL before meals <180 mg/dL all other times of the day Blood specimen (specimen) 06/15/2020 7:17 PM EST 06/15/2020 7:17 PM EST Chun Stanton MD POINT OF CARE TEST ORDERABLES Performing Organization Address [facility]/ZIP Co de Phone Number [facility] [place] [address] * POCT Glucose (06/15/2020 6:22 PM EST) Glucose, POC 107 65 - 199 mg/dL [facility] Comment: Supplemental ranges: <140 mg/dL before meals <180 mg/dL all other times of the day Blood specimen (specimen) 06/15/2020 6:22 PM EST 06/15/2020 6:22 PM EST Chun Stanton MD POINT OF CARE TEST ORDERABLES Performing Organization Address [facility] Co de Phone Number [facility] [place] [address] * POCT Glucose (06/15/2020 5:05 PM EST) Glucose, POC 90 65 - 199 mg/dL [facility] Comment: Supplemental ranges: <140 mg/dL before meals <180 mg/dL all other times of the day Blood specimen (specimen) 06/15/2020 5:05 PM EST 06/15/2020 5:05 PM EST Chun Stanton MD POINT OF CARE TEST ORDERABLES Performing Organization Address City/[facility] Co de Phone Number [facility] [place] [address] * POCT Glucose (06/15/2020 3:48 PM EST) Glucose, POC 109 65 - 199 mg/dL [facility] Comment: Supplemental ranges: <140 mg/dL before meals <180 mg/dL all other times of the day Blood specimen (specimen) 06/15/2020 3:48 PM EST 06/15/2020 3:48 PM EST Chun Stanton MD POINT OF CARE TEST ORDERABLES Performing Organization Address [facility] Co de Phone Number [facility] [place] [address] * (ABNORMAL) POCT Glucose (06/15/2020 2:00 PM EST) Glucose, POC 222(H) 65 - 199 mg/dL [facility] Comment: Supplemental ranges: <140 mg/dL before meals <180 mg/dL all other times of the day Blood specimen (specimen) 06/15/2020 2:00 PM EST 06/15/2020 2:00 PM EST Chun Stanton MD POINT OF CARE TEST ORDERABLES Performing Organization Address [facility] Co de Phone Number [facility] [place] [address] * (ABNORMAL) POCT Glucose (06/15/2020 1:02 PM EST) Glucose, POC 223(H) 65 - 199 mg/dL [facility] Comment: Supplemental ranges: <140 mg/dL before meals <180 mg/dL all other times of the day Blood specimen (specimen) 06/15/2020 1:02 PM EST 06/15/2020 1:02 PM EST Chun Stanton MD POINT OF CARE TEST ORDERABLES Performing Organization Address [facility] Co de Phone Number [facility] [place] [address] * POCT Glucose (06/15/2020 11:51 AM EST) Glucose, POC 191 65 - 199 mg/dL [facility] Comment: Supplemental ranges: <140 mg/dL before meals <180 mg/dL all other times of the day Blood specimen (specimen) 06/15/2020 11:51 AM EST 06/15/2020 11:51 AM EST Chun Stanton MD POINT OF CARE TEST ORDERABLES Performing Organization Address [facility] Co de Phone Number [facility] [place] [address] * (ABNORMAL) POCT Glucose (06/15/2020 10:45 AM EST) Glucose, POC 221(H) 65 - 199 mg/dL [facility] Comment: Supplemental ranges: <140 mg/dL before meals <180 mg/dL all other times of the day Blood specimen (specimen) 06/15/2020 10:45 AM EST 06/15/2020 10:45 AM EST Chun Stanton MD POINT OF CARE TEST ORDERABLES Performing Organization Address [facility] de Phone Number [facility] [place] [address] * (ABNORMAL) POCT Glucose (06/15/2020 9:44 AM EST) Glucose, POC 249(H) 65 - 199 mg/dL [facility] Comment: Supplemental ranges: <140 mg/dL before meals <180 mg/dL all other times of the day Blood specimen (specimen) 06/15/2020 9:44 AM EST 06/15/2020 9:44 AM EST Chun Stanton MD POINT OF CARE TEST ORDERABLES Performing Organization Address [facility] Co de Phone Number [facility] [place] [address] * (ABNORMAL) POCT Glucose (06/15/2020 8:49 AM EST) Glucose, POC 246(H) 65 - 199 mg/dL [facility] Comment: Supplemental ranges: <140 mg/dL before meals <180 mg/dL all other times of the day Blood specimen (specimen) 06/15/2020 8:49 AM EST 06/15/2020 8:49 AM EST Chun Stanton MD POINT OF CARE TEST ORDERABLES Performing Organization Address [facility] Co de Phone Number [facility] [place] [address] * POCT Glucose (06/15/2020 7:35 AM EST) Glucose, POC 189 65 - 199 mg/dL [facility] Comment: Supplemental ranges: <140 mg/dL before meals <180 mg/dL all other times of the day Blood specimen (specimen) 06/15/2020 7:35 AM EST 06/15/2020 7:35 AM EST Chun Stanton MD POINT OF CARE TEST ORDERABLES Performing Organization Address [facility] de Phone Number [facility] [place] [address] * POCT Glucose (06/15/2020 6:31 AM EST) Glucose, POC 165 65 - 199 mg/dL [facility] Comment: Supplemental ranges: <140 mg/dL before meals <180 mg/dL all other times of the day Blood specimen (specimen) 06/15/2020 6:31 AM EST 06/15/2020 6:31 AM EST Chun Stanton MD POINT OF CARE TEST ORDERABLES Performing Organization Address [facility] Co de Phone Number [facility] [place] [address] * Potassium (06/15/2020 5:37 AM EST) Potassium 4.7 3.5 - 5.0 mmol/L [facility] Comment: Please note: ??Patients with [...] MD CHEMISTRY ORDERABLE S Performing Organization Address [facility] de Phone Number [facility] [place] [address] * POCT Glucose (06/15/2020 5:36 AM EST) Glucose, POC 170 65 - 199 mg/dL [facility] Comment: Supplemental ranges: <140 mg/dL before meals <180 mg/dL all other times of the day Blood specimen (specimen) 06/15/2020 5:36 AM EST 06/15/2020 5:36 AM EST Chun Stanton MD POINT OF CARE TEST ORDERABLES Performing Organization Address [facility] Phone Number [facility] [place] [address] * POCT Glucose (06/15/2020 4:38 AM EST) Glucose, POC 162 65 - 199 mg/dL [facility] Comment: Supplemental ranges: <140 mg/dL before meals <180 mg/dL all other times of the day Blood specimen (specimen) 06/15/2020 4:38 AM EST 06/15/2020 4:38 AM EST Chun Stanton MD POINT OF CARE TEST ORDERABLES Performing Organization Address [facility] Co de Phone Number [facility] [place] [address] * POCT Glucose (06/15/2020 3:36 AM EST) Glucose, POC 173 65 - 199 mg/dL [facility] Comment: Supplemental ranges: <140 mg/dL before meals <180 mg/dL all other times of the day Blood specimen (specimen) 06/15/2020 3:36 AM EST 06/15/2020 3:36 AM EST Chun Stanton MD POINT OF CARE TEST ORDERABLES Performing Organization Address [facility] Co de Phone Number [facility] [place] [address] * POCT Glucose (06/15/2020 2:26 AM EST) Glucose, POC 179 65 - 199 mg/dL [facility] Comment: Supplemental ranges: <140 mg/dL before meals <180 mg/dL all other times of the day Blood specimen (specimen) 06/15/2020 2:26 AM EST 06/15/2020 2:26 AM EST Chun Stanton MD POINT OF CARE TEST ORDERABLES Performing Organization Address [facility] Co de Phone Number [facility] [place] [address] * POCT Glucose (06/15/2020 1:29 AM EST) Glucose, POC 196 65 - 199 mg/dL [facility] Comment: Supplemental ranges: <140 mg/dL before meals <180 mg/dL all other times of the day Blood specimen (specimen) 06/15/2020 1:29 AM EST 06/15/2020 1:29 AM EST Chun Stanton MD POINT OF CARE TEST ORDERABLES Performing Organization Address [facility] Co de Phone Number [facility] [place] [address] * POCT Glucose (06/15/2020 12:24 AM EST) Glucose, POC 152 65 - 199 mg/dL [facility] Comment: Supplemental ranges: <140 mg/dL before meals <180 mg/dL all other times of the day Blood specimen (specimen) 06/15/2020 12:24 AM EST 06/15/2020 12:24 AM EST Chun Stanton MD POINT OF CARE TEST ORDERABLES [facility] [place] [address] * POCT Glucose (06/14/2020 11:04 PM EST) Glucose, POC 132 65 - 199 mg/dL [facility] Comment: Supplemental ranges: <140 mg/dL before meals <180 mg/dL all other times of the day Blood specimen (specimen) 06/14/2020 11:04 PM EST 06/14/2020 11:04 PM EST Chun Stanton MD POINT OF CARE TEST ORDERABLES Performing Organization Address [facility] Co de Phone Number [facility] [place] [address] * POCT Glucose (06/14/2020 10:29 PM EST) Glucose, POC 114 65 - 199 mg/dL [facility] Comment: Supplemental ranges: <140 mg/dL before meals <180 mg/dL all other times of the day Blood specimen (specimen) 06/14/2020 10:29 PM EST 06/14/2020 10:29 PM EST Chun Stanton MD POINT OF CARE TEST ORDERABLES Performing Organization Address City/[facility]/ZIP Co de Phone Number [facility] [place] [address] * POCT Glucose (06/14/2020 9:03 PM EST) Glucose, POC 110 65 - 199 mg/dL [facility] Comment: Supplemental ranges: <140 mg/dL before meals <180 mg/dL all other times of the day Blood specimen (specimen) 06/14/2020 9:03 PM EST 06/14/2020 9:03 PM EST Chun Stanton MD POINT OF CARE TEST ORDERABLES [facility] [place] [address] * POCT Glucose (06/14/2020 8:06 PM EST) Glucose, POC 104 65 - 199 mg/dL [facility] Comment: Supplemental ranges: <140 mg/dL before meals <180 mg/dL all other times of the day Blood specimen (specimen) 06/14/2020 8:06 PM EST 06/14/2020 8:06 PM EST Chun Stanton MD POINT OF CARE TEST ORDERABLES [facility] [place] [address] * POCT Glucose (06/14/2020 7:02 PM EST) Glucose, POC 118 65 - 199 mg/dL [facility] Comment: Supplemental ranges: <140 mg/dL before meals <180 mg/dL all other times of the day Blood specimen (specimen) 06/14/2020 7:02 PM EST 06/14/2020 7:02 PM EST Chun Stanton MD POINT OF CARE TEST ORDERABLES [facility] [place] [address] * POCT Glucose (06/14/2020 5:24 PM EST) Glucose, POC 141 65 - 199 mg/dL [facility] Comment: Supplemental ranges: <140 mg/dL before meals <180 mg/dL all other times of the day Blood specimen (specimen) 06/14/2020 5:24 PM EST 06/14/2020 5:24 PM EST Chun Stanton MD POINT OF CARE TEST ORDERABLES [facility] [place] [address] * POCT Glucose (06/14/2020 4:21 PM EST) Glucose, POC 168 65 - 199 mg/dL [facility] Comment: Supplemental ranges: <140 mg/dL before meals <180 mg/dL all other times of the day Blood specimen (specimen) 06/14/2020 4:21 PM EST 06/14/2020 4:21 PM EST Chun Stanton MD POINT OF CARE TEST ORDERABLES [facility] [place] [address] * (ABNORMAL) POCT Glucose (06/14/2020 3:12 PM EST) Glucose, POC 206(H) 65 - 199 mg/dL [facility] Comment: Supplemental ranges: <140 mg/dL before meals <180 mg/dL all other times of the day Blood specimen (specimen) 06/14/2020 3:12 PM EST 06/14/2020 3:12 PM EST Chun Stanton MD POINT OF CARE TEST ORDERABLES Performing Organization Address City/[facility] Co de Phone Number [facility] [place] [address] * (ABNORMAL) POCT Glucose (06/14/2020 2:07 PM EST) Glucose, POC 220(H) 65 - 199 mg/dL [facility] Comment: Supplemental ranges: <140 mg/dL before meals <180 mg/dL all other times of the day Blood specimen (specimen) 06/14/2020 2:07 PM EST 06/14/2020 2:07 PM EST Chun Stanton MD POINT OF CARE TEST ORDERABLES Performing Organization Address City/[facility]/ZIP Co de Phone Number [facility] [place] [address] * POCT Glucose (06/14/2020 1:04 PM EST) Glucose, POC 188 65 - 199 mg/dL [facility] Comment: Supplemental ranges: <140 mg/dL before meals <180 mg/dL all other times of the day Blood specimen (specimen) 06/14/2020 1:04 PM EST 06/14/2020 1:04 PM EST Chun Stanton MD POINT OF CARE TEST ORDERABLES [facility] [place] [address] * POCT Glucose (06/14/2020 11:56 AM EST) Glucose, POC 154 65 - 199 mg/dL [facility] Comment: Supplemental ranges: <140 mg/dL before meals <180 mg/dL all other times of the day Blood specimen (specimen) 06/14/2020 11:56 AM EST 06/14/2020 11:56 AM EST Chun Stanton MD POINT OF CARE TEST ORDERABLES [facility] [place] [address] * POCT Glucose (06/14/2020 10:04 AM EST) Glucose, POC 139 65 - 199 mg/dL [facility] Comment: Supplemental ranges: <140 mg/dL before meals <180 mg/dL all other times of the day Blood specimen (specimen) 06/14/2020 10:04 AM EST 06/14/2020 10:04 AM EST Chun Stanton MD POINT OF CARE TEST ORDERABLES [facility] [place] [address] * POCT Glucose (06/14/2020 9:32 AM EST) Glucose, POC 129 65 - 199 mg/dL [facility] Comment: Supplemental ranges: <140 mg/dL before meals <180 mg/dL all other times of the day Blood specimen (specimen) 06/14/2020 9:32 AM EST 06/14/2020 9:32 AM EST Chun Stanton MD POINT OF CARE TEST ORDERABLES [facility] [place] [address] * POCT Glucose (06/14/2020 8:36 AM EST) Glucose, POC 134 65 - 199 mg/dL [facility] Comment: Supplemental ranges: <140 mg/dL before meals <180 mg/dL all other times of the day Blood specimen (specimen) 06/14/2020 8:36 AM EST 06/14/2020 8:36 AM EST Chun Stanton MD POINT OF CARE TEST ORDERABLES Performing Organization Address City/[facility] Co de Phone Number [facility] [place] [address] * POCT Glucose (06/14/2020 6:00 AM EST) Glucose, POC 156 65 - 199 mg/dL [facility] Comment: Supplemental ranges: <140 mg/dL before meals <180 mg/dL all other times of the day Blood specimen (specimen) 06/14/2020 6:00 AM EST 06/14/2020 6:00 AM EST Chun Stanton MD POINT OF CARE TEST ORDERABLES Performing Organization Address City/[facility] Co de Phone Number [facility] [place] [address] * (ABNORMAL) Hemoglobin A1c (06/14/2020 5:13 AM EST) Hemoglobin A1c 8.2(H) 4.3 - 5.6 % [facility] Comment: Reference Range: 4.3 - 5.6% [...] Mellitus, Diabetes Care 2013; 36: Suppl. 1, S67-29 Estimated Average Glucose See note mg/dL [facility] Comment: Estimated Average Glucose not appropriate [...] into estimated average glucose values. ??Diabetes Care 2008:31(8):3332-2557. Blood specimen (specimen) Venous Draw / Unknown 06/14/2020 5:13 AM EST 06/15/2020 2:29 PM EST Narrative Resulting Agency Comment Spec In Lab Zenia Lanza APRN CHEMISTRY ORDERABLE S [facility] [place] [address] * Scan, Peripheral Blood (06/14/2020 5:13 AM EST) [facility] Plat estimate Decreased [facility] RBC Morphology Abnormal [facility] Microcyte 1-5 /HPF [facility] Ovalocytes 1-5 /HPF [facility] [place] Cells 1-5 /HPF [facility] Blood specimen (specimen) 06/14/2020 5:13 AM EST 06/14/2020 5:23 AM EST Narrative Resulting Agency Comment Spec In Lab Kris KISER HEMATOLOGY ORDERABLE S Performing Organization Address City/[facility]/ZIP Co de Phone Number [facility] [place] [address] * (ABNORMAL) Differential, Automated (06/14/2020 5:13 AM EST) [facility] Neutrophil % 78.7 % [facility] Neutrophil Absolute 10.60(H) 1.70 - 6.10 x10(3)/mc L [facility] Lymph % 7.9 % [facility] Lymphocytes Abs 1.1 0.9 - 3.2 x10(3)/mc L [facility] Monocyte % 12.9 % [facility] Monocyte Abs 1.7(H) 0.3 - 0.9 x10(3)/mc L [facility] Eos % 0.0 % [facility] Eosinophils Abs 0.0 0.0 - 0.4 x10(3)/mc L [facility] Basophil % 0.1 % [facility] Baso Absolute 0.0 0.0 - 0.1 x10(3)/mc L [facility] Immature Gran % 0.40 % [facility] Comment: Immature granulocytes(IG's)percentage and absolute count will include metamyelocytes, myelocytes, and promyelocytes. Blood smears from CBCs yielding IG's will be scanned manually for concordance. If this scan disagrees with the automated IG or if promyelocytes are noted, a manual differential will be performed. Immature Gran Absolute 0.06(H) 0.00 - 0.04 x10(3)/mc L [facility] Blood specimen (specimen) 06/14/2020 5:13 AM EST 06/14/2020 5:23 AM EST Narrative Resulting Agency Comment Spec In Lab Kris KISER HEMATOLOGY ORDERABLE S [facility] [place] [address] * (ABNORMAL) Hemogram (06/14/2020 5:13 AM EST) White Blood Cell 13.5(H) 4.0 - 9.5 x10(3)/mc L [facility] Red Blood Cell 3.04(L) 4.58 - 5.54 x10(6)/mc L [facility] Hemoglobin 8.8(L) 13.7 - 16.5 gm/dL [facility] Hematocrit 25.5(L) 40.5 - 48.5 % [facility] Mean Cell Volume 83.9 82.9 - 93.1 fL [facility] Mean Cell Hemoglobin 28.9 27.5 - 32.1 pg [facility] Mean Cell Hemoglobin Concentration 34.5 32.0 - 35.7 gm/dL [facility] Platelet 123(L) 145 - 357 x10(3)/mc L [facility] RDW Standard Deviation 42.4 36.0 - 45.0 [facility] RDW coefficient of variation 13.8 11.4 - 13.8 % [facility] Mean Platelet Volume 11.5 7.6 - 12.9 fL [facility] NRBC% auto 0.0 % [facility] NRBC Absolute 0.000 0.000 - 0.000 x10(3)/mc L [facility] Blood specimen (specimen) 06/14/2020 5:13 AM EST 06/14/2020 5:23 AM EST Narrative Resulting Agency Comment Spec In Lab Kris KISER HEMATOLOGY ORDERABLE S [facility] [place] [address] * (ABNORMAL) Basic Metabolic Panel (non-fasting) (06/14/2020 5:13 AM EST) Glucose 143 65 - 199 mg/dL [facility] Comment:Diabetes: >=200 mg/d L plus symptoms Blood Urea Nitrogen 14 10 - 20 mg/dL [facility] Creatinine 0.99 0.80 - 1.50 mg/dL [facility] Sodium 140 135 - 145 mmol/L [facility] Potassium 4.0 3.5 - 5.0 mmol/L [facility] Comment: Please note: ??Patients with WBC >100,000 may have falsely elevated Potassium levels. ??For accurate Potassium quantification in these patients send serum separator tube (gold top) for subsequent determinations. ??Contact the Clinical Chemistry Laboratory if there are any questions. Chloride 106 98 - 107 mmol/L [facility] Carbon Dioxide 24 22 - 31 mmol/L [facility] Anion Gap 10 5 - 15 mmol/L [facility] Calcium 8.0(L) 8.5 - 10.5 mg/dL [facility] Est Glomerular Filtration Rate 77 >=60 mL/min/1. 73 m?? [facility] Comment: The eGFR was calculated using the CKD-EPI equation. As with all creatinine based estimates of kidney function, eGFR values calculated with the CKD-EPI equation are not accurate in patients with acute kidney failure, extremes of body mass or the acutely ill. http://[facility]MCnkf eGFR 89 >=60 mL/min/1. 73 m?? [facility] Comment: The eGFR was calculated using the CKD-EPI equation. As with all creatinine based estimates of kidney function, eGFR values calculated with the CKD-EPI equation are not accurate in patients with acute kidney failure, extremes of body mass or the acutely ill. http://[facility] Blood specimen (specimen) 06/14/2020 5:13 AM EST 06/14/2020 5:23 AM EST Narrative Resulting Agency Comment Spec In Lab Chun Stanton MD CHEMISTRY ORDERABLE S [facility] [place] [address] * (ABNORMAL) Troponin (06/14/2020 5:13 AM EST) Troponin-T 0.47(H) 0.00 - 0.00 ng/mL [facility] Comment: The 99th percentile for Troponin T is less than 0.01 ng/mL, any detectable cTnT concentration using this assay should be considered elevated. According to the third universal definition of myocardial infarction the following criteria with a clinical presentation consistent with acute myocardial ischemia meets the diagnosis for a myocardial infarction (CT). Detection of a rise and/or fall of cTnT, with at least one value greater than the 99th percentile (> or = 0.01) and with at least one of the following ?? Symptoms of ischemia ?? New or presumed new significant [id number]-I wave (ST-T) changes or new left bundle [...] additional sample may be indicated. Reference: [place] Definition of Myocardial Infarction. Journal of the [place] [employer] 2012;60:1581-98 Blood specimen (specimen) 06/14/2020 5:13 AM EST 06/14/2020 5:23 AM EST Narrative Resulting Agency Comment Spec In Lab Chun Stanton MD CHEMISTRY ORDERABLE S Performing Organization Address [facility]/ZIP Co de Phone Number [facility] [place] [address] * POCT Glucose (06/14/2020 2:36 AM EST) Glucose, POC 169 65 - 199 mg/dL [facility] Comment: Supplemental ranges: <140 mg/dL before meals <180 mg/dL all other times of the day Blood specimen (specimen) 06/14/2020 2:36 AM EST 06/14/2020 2:36 AM EST Chun Stanton MD POINT OF CARE TEST ORDERABLES Performing Organization Address [facility] Co de Phone Number [facility] [place] [address] * POCT Glucose (06/13/2020 10:38 PM EST) Glucose, POC 193 65 - 199 mg/dL [facility] Comment: Supplemental ranges: <140 mg/dL before meals <180 mg/dL all other times of the day Blood specimen (specimen) 06/13/2020 10:38 PM EST 06/13/2020 10:38 PM EST Chun Stanton MD POINT OF CARE TEST ORDERABLES Performing Organization Address [facility] Co de Phone Number [facility] [place] [address] * (ABNORMAL) POCT Glucose (06/13/2020 8:41 PM EST) Glucose, POC 217(H) 65 - 199 mg/dL [facility] Comment: Supplemental ranges: <140 mg/dL before meals <180 mg/dL all other times of the day Blood specimen (specimen) 06/13/2020 8:41 PM EST 06/13/2020 8:41 PM EST Chun Stanton MD POINT OF CARE TEST ORDERABLES Performing Organization Address [facility] Co de Phone Number [facility] [place] [address] * (ABNORMAL) POCT Glucose (06/13/2020 7:04 PM EST) Glucose, POC 217(H) 65 - 199 mg/dL [facility] Comment: Supplemental ranges: <140 mg/dL before meals <180 mg/dL all other times of the day Blood specimen (specimen) 06/13/2020 7:04 PM EST 06/13/2020 7:04 PM EST Chun Stanton MD POINT OF CARE TEST ORDERABLES Performing Organization Address [facility] Co de Phone Number [facility] [place] [address] * (ABNORMAL) POCT Glucose (06/13/2020 6:17 PM EST) Glucose, POC 230(H) 65 - 199 mg/dL [facility] Comment: Supplemental ranges: <140 mg/dL before meals <180 mg/dL all other times of the day Blood specimen (specimen) 06/13/2020 6:17 PM EST 06/13/2020 6:17 PM EST Chun Stanton MD POINT OF CARE TEST ORDERABLES Performing Organization Address City/[facility] Co de Phone Number [facility] [place] [address] * (ABNORMAL) POCT Glucose (06/13/2020 5:42 PM EST) Glucose, POC 255(H) 65 - 199 mg/dL [facility] Comment: Supplemental ranges: <140 mg/dL before meals <180 mg/dL all other times of the day Blood specimen (specimen) 06/13/2020 5:42 PM EST 06/13/2020 5:42 PM EST Chun Stanton MD POINT OF CARE TEST ORDERABLES Performing Organization Address [facility] de Phone Number [facility] [place] [address] * (ABNORMAL) Hemoglobin (06/13/2020 5:38 PM EST) [facility] Hemoglobin 9.9(L) 13.7 - 16.5 gm/dL [facility] Blood specimen (specimen) 06/13/2020 5:38 PM EST 06/13/2020 5:49 PM EST Narrative Resulting Agency Comment Spec In Lab Chun Stanton MD HEMATOLOGY ORDERABL ES Performing Organization Address [facility] de Phone Number [facility] [place] [address] * Potassium (06/13/2020 5:38 PM EST) [facility] Potassium 3.9 3.5 - 5.0 mmol/L [facility] Comment: Please note: ??Patients with [...] MD CHEMISTRY ORDERABLE S Performing Organization Address [facility] de Phone Number [facility] [place] [address] * (ABNORMAL) POCT Glucose (06/13/2020 4:39 PM EST) [facility] Glucose, POC 215(H) 65 - 199 mg/dL [facility] Comment: Supplemental ranges: <140 mg/dL before meals <180 mg/dL all other times of the day Blood specimen (specimen) 06/13/2020 4:39 PM EST 06/13/2020 4:39 PM EST Chun Stanton MD POINT OF CARE TEST ORDERABLES [facility] [place] [address] * (ABNORMAL) BLOOD GAS 2 ARTERIAL (06/13/2020 4:22 PM EST) pH, Arterial 7.34(L) 7.35 - 7.45 [facility] PCO2, Arterial 37 35 - 45 mmHg [facility] PO2, Arterial 82(L) 85 - 104 mmHg [facility] Bicarbonate, Arterial 19.1(L) 20.0 - 26.0 mmol/L [facility] Base Excess, Arterial -6.7(L) -3.0 - 3.0 mmol/L [facility] Hgb Blood Gas 10.8(L) 13.7 - 16.5 gm/dL [facility] Oxyhemoglobin, Arterial 93.9(L) 94.0 - 97.0 % [facility] Carboxyhemoglob in, Arterial 0.1 % [facility] Comment: Nonsmokers: 0.5-1.5% COHB Smokers: Variable, but usually less than 10% Toxic: 20-30% COHB Lethal: Greater than 60% COHB Methemoglobin, Arterial 0.4 <=1.5 % [facility] Na Whole Blood 137 135 - 145 mmol/L [facility] K Whole Blood 3.6 3.5 - 5.0 mmol/L [facility] Comment: Please note: Patients with WBC >100,000 may have falsely elevated Potassium levels. Contact the Clinical Chemistry Laboratory if there are any questions. ICa Whole Blood 1.06(L) 1.15 - 1.33 mmol/L [facility] Comment: Note: ??Total bilirubin higher than 20 mg/dL may lead to falsely low ionized calcium. CL Whole Blood 108(H) 98 - 107 mmol/L [facility] Gluc Whole Bld 226(H) 65 - 199 mg/dL [facility] Comment:Diabetes: >=200 mg/d L plus symptoms. Lactate WB 2.9(H) 0.5 - 2.2 mmol/L [facility] FIO2 Art 40 % [facility] PF Ratio Art 205 [facility] Blood specimen (specimen) 06/13/2020 4:22 PM EST 06/13/2020 4:22 PM EST Chun Stanton MD POINT OF CARE TEST ORDERABLES Performing Organization Address [facility] Co de Phone Number [facility] [place] [address] * POCT Glucose (06/13/2020 3:32 PM EST) Glucose, POC 184 65 - 199 mg/dL [facility] Comment: Supplemental ranges: <140 mg/dL before meals <180 mg/dL all other times of the day Blood specimen (specimen) 06/13/2020 3:32 PM EST 06/13/2020 3:32 PM EST Chun Stanton MD POINT OF CARE TEST ORDERABLES Performing Organization Address [facility] Co de Phone Number [facility] [place] [address] * XR Chest One View (06/13/2020 2:48 [...] above the ranjith. -Right internal jugular vein [place] catheter tip is at the bifurcation of [...] above the ranjith. -Right internal jugular vein [place] catheter tip is at the bifurcationof main [...] EKG 12 Lead (06/13/2020 2:20 PM EST) Pathologist [facility] Ventricular rate 56 BPM MUSE SYSTEM Atrial Rate 56 BPM MUSE SYSTEM P-R Interval 132 ms MUSE SYSTEM QRS Duration 92 ms MUSE SYSTEM Q-T Interval 458 ms MUSE SYSTEM QTC Calculated (Bezet) 441 ms MUSE SYSTEM Calculated P [place] 45 degrees MUSE SYSTEM Calculated R [place] -32 degrees MUSE SYSTEM Calculated T [place] -30 degrees MUSE SYSTEM INTERPRETATION Sinus bradycardia Left axis deviation Inferior infarct (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-2020) ST elevation, consider early repolarization Abnormal ECG When compared with ECG of 03-JUN-2020 11:37, T wave inversion are no longer present in the lateral leads. Confirmed by Carlos Toro ([id number]) on 06/13/2020 4:08:19 PM MUSE SYSTEM 06/13/2020 2:20 PM EST 06/13/2020 4:08 PM EST Chun Stanton MD ECG ORDERABLES MUSE SYSTEM * (ABNORMAL) BLOOD GAS 2 ARTERIAL (06/13/2020 2:19 PM EST) Pathologist [facility] pH, Arterial 7.32(L) 7.35 - 7.45 [facility] PCO2, Arterial 47(H) 35 - 45 mmHg [facility] PO2, Arterial 205(H) 85 - 104 mmHg [facility] Bicarbonate, Arterial 24.1 20.0 - 26.0 mmol/L [facility] Base Excess, Arterial -1.9 -3.0 - 3.0 mmol/L [facility] Hgb Blood Gas 10.0(L) 13.7 - 16.5 gm/dL [facility] Oxyhemoglobin, Arterial 97.6(H) 94.0 - 97.0 % [facility] Carboxyhemoglob in, Arterial 0.3 % [facility] Comment: Nonsmokers: 0.5-1.5% COHB Smokers: Variable, but usually less than 10% Toxic: 20-30% COHB Lethal: Greater than 60% COHB Methemoglobin, Arterial 0.6 <=1.5 % [facility] Na Whole Blood 139 135 - 145 mmol/L [facility] K Whole Blood 4.3 3.5 - 5.0 mmol/L [facility] Comment: Please note: Patients with WBC >100,000 may have falsely elevated Potassium levels. Contact the Clinical Chemistry Laboratory if there are any questions. ICa Whole Blood 1.12(L) 1.15 - 1.33 mmol/L [facility] Comment: Note: ??Total bilirubin higher than 20 mg/dL may lead to falsely low ionized calcium. CL Whole Blood 107 98 - 107 mmol/L [facility] Gluc Whole Bld 186 65 - 199 mg/dL [facility] Comment:Diabetes: >=200 mg/d L plus symptoms. Lactate WB 1.7 0.5 - 2.2 mmol/L [facility] FIO2 Art 100 % [facility] PF Ratio Art 205 [facility] Blood specimen (specimen) 06/13/2020 2:19 PM EST 06/13/2020 2:19 PM EST Chun Stanton MD POINT OF CARE TEST ORDERABLES [facility] [place] [address] * (ABNORMAL) BLOOD GAS 2 ARTERIAL (06/13/2020 12:46 PM EST) pH, Arterial 7.33(L) 7.35 - 7.45 [facility] PCO2, Arterial 42 35 - 45 mmHg [facility] PO2, Arterial 90 85 - 104 mmHg [facility] Bicarbonate, Arterial 21.8 20.0 - 26.0 mmol/L [facility] Base Excess, Arterial -4.0(L) -3.0 - 3.0 mmol/L [facility] Hgb Blood Gas 7.8(L) 13.7 - 16.5 gm/dL [facility] Oxyhemoglobin, Arterial 94.6 94.0 - 97.0 % [facility] Carboxyhemoglob in, Arterial 1.0 % [facility] Comment: Nonsmokers: 0.5-1.5% COHB Smokers: Variable, but usually less than 10% Toxic: 20-30% COHB Lethal: Greater than 60% COHB Methemoglobin, Arterial 0.3 <=1.5 % [facility] Na Whole Blood 134(L) 135 - 145 mmol/L [facility] K Whole Blood 3.8 3.5 - 5.0 mmol/L [facility] Comment: Please note: Patients with WBC >100,000 may have falsely elevated Potassium levels. Contact the Clinical Chemistry Laboratory if there are any questions. ICa Whole Blood 1.16 1.15 - 1.33 mmol/L [facility] Comment: Note: ??Total bilirubin higher than 20 mg/dL may lead to falsely low ionized calcium. CL Whole Blood 107 98 - 107 mmol/L [facility] Gluc Whole Bld 194 65 - 199 mg/dL [facility] Comment:Diabetes: >=200 mg/d L plus symptoms. Lactate WB 3.2(H) 0.5 - 2.2 mmol/L [facility] Blood specimen (specimen) 06/13/2020 12:46 PM EST 06/13/2020 12:46 PM EST Chun Stanton MD POINT OF CARE TEST ORDERABLES [facility] [place] [address] * Scan, Peripheral Blood (06/13/2020 12:40 PM EST) Plat estimate Decreased [facility] RBC Morphology Abnormal [facility] Ovalocytes 1-5 /HPF [facility] Blood specimen (specimen) 06/13/2020 12:40 PM EST 06/13/2020 12:51 PM EST Narrative Resulting Agency Comment Spec In Lab Sarahi Avery MD HEMATOLOGY ORDERABLE S Performing Organization Address [facility] Co de Phone Number [facility] [place] [address] * (ABNORMAL) Fibrinogen (06/13/2020 12:40 PM EST) Fibrinogen 156(L) 200 - 393 mg/dL [facility] Comment: OR Result called by ?? SALVLT OR Results read back by: ? Wilfred Heath at 2020-06-13 13:07:09 A fibrinogen level >100 mg/dL is adequate for hemostasis in most patients without underlying bleeding disorders. Blood specimen (specimen) 06/13/2020 12:40 PM EST 06/13/2020 12:51 PM EST Narrative Resulting Agency Comment Spec In Lab Marianna Torres MD HEMATOLOGY ORDERABL ES Performing Organization Address [facility] de Phone Number [facility] [place] [address] * APTT (06/13/2020 12:40 PM EST) Partial Thromboplastin Time 27 25 - 37 sec [facility] Comment: OR Result called by ?? SALVLT OR Results read back by: ? Wilfred Heath at 2020-06-13 13:07:09 The PTT is NOT appropriate for heparin monitoring. Use the Anti-Xa level for heparin monitoring (HEP UFH) or LMWH monitoring (HEP LMW). A PTT less than 37 seconds generally indicates adequate hemostasis. Blood specimen (specimen) 06/13/2020 12:40 PM EST 06/13/2020 12:51 PM EST Narrative Resulting Agency Comment Spec In Lab Marianna Torres MD HEMATOLOGY ORDERABL ES Performing Organization Address [facility] de Phone Number [facility] [place] [address] * (ABNORMAL) Prothrombin Time (06/13/2020 12:40 PM EST) Prothrombin Time 17.2(H) 9.4 - 12.5 sec [facility] Comment: OR Result called by ?? SALVLT OR Results read back by: ? Wilfred Heath at 2020-06-13 13:07:09 International Normalization Ratio 1.5 [facility] Comment: OR Result called by ?? [...] MD HEMATOLOGY ORDERABL ES Performing Organization Address [facility] Co de Phone Number [facility] [place] [address] * (ABNORMAL) Hemogram (06/13/2020 12:40 PM EST) White Blood Cell 9.1 4.0 - 9.5 x10(3)/mc L [facility] Red Blood Cell 2.50(L) 4.58 - 5.54 x10(6)/mc L [facility] Hemoglobin 7.3(L) 13.7 - 16.5 gm/dL [facility] Hematocrit 21.4(L) 40.5 - 48.5 % [facility] Comment: This result has been called to WILFRED HEATH by Adelita Huff on 06 13 2020 at 1331, and has been read back. Mean Cell Volume 85.6 82.9 - 93.1 fL [facility] Mean Cell Hemoglobin 29.2 27.5 - 32.1 pg [facility] Mean Cell Hemoglobin Concentration 34.1 32.0 - 35.7 gm/dL [facility] Platelet 81(L) 145 - 357 x10(3)/mc L [facility] RDW Standard Deviation 41.9 36.0 - 45.0 fL [facility] RDW coefficient of variation 13.5 11.4 - 13.8 % [facility] Mean Platelet Volume 12.1 7.6 - 12.9 fL [facility] NRBC% auto 0.0 % [facility] NRBC Absolute 0.000 0.000 - 0.000 x10(3)/mc L [facility] Blood specimen (specimen) 06/13/2020 12:40 PM EST 06/13/2020 12:51 PM EST Narrative Resulting Agency Comment Spec In Lab Marianna Torres MD HEMATOLOGY ORDERABL ES Performing Organization Address City/State/[facility] Co de Phone Number [facility] [place] [address] * (ABNORMAL) BLOOD GAS 2 ARTERIAL (06/13/2020 12:13 PM EST) pH, Arterial 7.30(L) 7.35 - 7.45 [facility] PCO2, Arterial 44 35 - 45 mmHg [facility] PO2, Arterial 392(H) 85 - 104 mmHg [facility] Bicarbonate, Arterial 21.3 20.0 - 26.0 mmol/L [facility] Base Excess, Arterial -5.1(L) -3.0 - 3.0 mmol/L [facility] Hgb Blood Gas 7.8(L) 13.7 - 16.5 gm/dL [facility] Oxyhemoglobin, Arterial 98.3(H) 94.0 - 97.0 % [facility] Carboxyhemoglob in, Arterial 0.8 % [facility] Comment: Nonsmokers: 0.5-1.5% COHB Smokers: Variable, but usually less than 10% Toxic: 20-30% COHB Lethal: Greater than 60% COHB Methemoglobin, Arterial 0.3 <=1.5 % [facility] Na Whole Blood 129(L) 135 - 145 mmol/L [facility] K Whole Blood 5.0 3.5 - 5.0 mmol/L [facility] Comment: Please note: Patients with WBC >100,000 may have falsely elevated Potassium levels. Contact the Clinical Chemistry Laboratory if there are any questions. ICa Whole Blood 1.37(H) 1.15 - 1.33 mmol/L [facility] Comment: Note: ??Total bilirubin higher than 20 mg/dL may lead to falsely low ionized calcium. CL Whole Blood 106 98 - 107 mmol/L [facility] Gluc Whole Bld 211(H) 65 - 199 mg/dL [facility] Comment:Diabetes: >=200 mg/d L plus symptoms. Lactate WB 2.9(H) 0.5 - 2.2 mmol/L [facility] Blood specimen (specimen) 06/13/2020 12:13 PM EST 06/13/2020 12:13 PM EST Chun Stanton MD POINT OF CARE TEST ORDERABLES [facility] [place] [address] * Prepare Platelets, Apheresis (06/13/2020 12:10 PM EST) Dispensed? Yes [facility] Blood specimen (specimen) 06/13/2020 12:10 PM EST 06/13/2020 12:08 PM EST Chun Stanton MD BLOOD BANK PRODUCT ORDERABLES Performing Organization Address City/[facility]/ZIP Co de Phone Number [facility] [place] [address] * (ABNORMAL) Platelet count (06/13/2020 11:50 AM EST) Platelet 107(L) 145 - 357 x10(3)/mc L [facility] Immature Plt % 5.0 0.0 - 7.4 % [facility] Comment: Limitation of the Immature Platelet Fraction (IPF)-May be less reliable when the platelet count is less than 15l406/uL due to statistical imprecision. The IPF value [...] in a decreased state of production. References: [employer] The Clinical Value of the Immature Platelet Fraction (IPF) in Cell Recovery Document Number [id number] 12/2010 [employer] The Role of the Immature Platelet Fraction (IPF) in the Differential Diagnosis of Thrombocytopenia, Document [id number] V05/06/27 P05/14 Blood specimen (specimen) 06/13/2020 11:50 AM EST 06/13/2020 11:59 AM EST Narrative Resulting Agency Comment Spec In Lab Chun Stanton MD HEMATOLOGY ORDERABL ES Performing Organization Address City/[facility]/ZIP Co de Phone Number [facility] [place] [address] * (ABNORMAL) Hemoglobin and Hematocrit, blood (06/13/2020 11:50 AM EST) Hemoglobin 7.8(L) 13.7 - 16.5 gm/dL [facility] Hematocrit 22.7(L) 40.5 - 48.5 % [facility] Comment: This result has been called to WILFRED HEATH by Elizabet Santiago on 06 13 2020 at 1207, and has been read back. Blood specimen (specimen) 06/13/2020 11:50 AM EST 06/13/2020 11:59 AM EST Narrative Resulting Agency Comment Spec In Lab Chun Stanton MD HEMATOLOGY ORDERABL ES Performing Organization Address [facility] Co de Phone Number [facility] [place] [address] * (ABNORMAL) Fibrinogen (06/13/2020 11:50 AM EST) Fibrinogen 161(L) 200 - 393 mg/dL [facility] Comment: OR Result called by ?? SABINE OR Results read back by: ? Wilfred Heath at 2020-06-13 12:13:36 A fibrinogen level >100 mg/dL is adequate for hemostasis in most patients without underlying bleeding disorders. Blood specimen (specimen) 06/13/2020 11:50 AM EST 06/13/2020 11:59 AM EST Narrative Resulting Agency Comment Spec In Lab Chun Stanton MD HEMATOLOGY ORDERABL ES Performing Organization Address [facility] Co de Phone Number [facility] [place] [address] * (ABNORMAL) BLOOD GAS 2 ARTERIAL (06/13/2020 11:44 AM EST) pH, Arterial 7.34(L) 7.35 - 7.45 [facility] PCO2, Arterial 41 35 - 45 mmHg [facility] PO2, Arterial 235(H) 85 - 104 mmHg [facility] Bicarbonate, Arterial 21.5 20.0 - 26.0 mmol/L [facility] Base Excess, Arterial -4.3(L) -3.0 - 3.0 mmol/L [facility] Hgb Blood Gas 9.3(L) 13.7 - 16.5 gm/dL [facility] Oxyhemoglobin, Arterial 98.5(H) 94.0 - 97.0 % [facility] Carboxyhemoglob in, Arterial 0.2 % [facility] Comment: Nonsmokers: 0.5-1.5% COHB Smokers: Variable, but usually less than 10% Toxic: 20-30% COHB Lethal: Greater than 60% COHB Methemoglobin, Arterial 0.3 <=1.5 % [facility] Na Whole Blood 132(L) 135 - 145 mmol/L [facility] K Whole Blood 4.6 3.5 - 5.0 mmol/L [facility] Comment: Please note: Patients with WBC >100,000 may have falsely elevated Potassium levels. Contact the Clinical Chemistry Laboratory if there are any questions. ICa Whole Blood 0.97(L) 1.15 - 1.33 mmol/L [facility] Comment: Note: ??Total bilirubin higher than 20 mg/dL may lead to falsely low ionized calcium. CL Whole Blood 106 98 - 107 mmol/L [facility] Gluc Whole Bld 222(H) 65 - 199 mg/dL [facility] Comment:Diabetes: >=200 mg/d L plus symptoms. Lactate WB 2.1 0.5 - 2.2 mmol/L [facility] Blood specimen (specimen) 06/13/2020 11:44 AM EST 06/13/2020 11:44 AM EST Chun Stanton MD POINT OF CARE TEST ORDERABLES [facility] [place] [address] * (ABNORMAL) BLOOD GAS 2 ARTERIAL (06/13/2020 11:08 AM EST) pH, Arterial 7.34(L) 7.35 - 7.45 [facility] PCO2, Arterial 41 35 - 45 mmHg [facility] PO2, Arterial 288(H) 85 - 104 mmHg [facility] Bicarbonate, Arterial 21.9 20.0 - 26.0 mmol/L [facility] Base Excess, Arterial -3.8(L) -3.0 - 3.0 mmol/L [facility] Hgb Blood Gas 9.1(L) 13.7 - 16.5 gm/dL [facility] Oxyhemoglobin, Arterial 98.7(H) 94.0 - 97.0 % [facility] Carboxyhemoglob in, Arterial 0.3 % [facility] Comment: Nonsmokers: 0.5-1.5% COHB Smokers: Variable, but usually less than 10% Toxic: 20-30% COHB Lethal: Greater than 60% COHB Methemoglobin, Arterial 0.3 <=1.5 % [facility] Na Whole Blood 132(L) 135 - 145 mmol/L [facility] K Whole Blood 5.3(H) 3.5 - 5.0 mmol/L [facility] Comment: Please note: Patients with WBC >100,000 may have falsely elevated Potassium levels. Contact the Clinical Chemistry Laboratory if there are any questions. ICa Whole Blood 0.98(L) 1.15 - 1.33 mmol/L [facility] Comment: Note: ??Total bilirubin higher than 20 mg/dL may lead to falsely low ionized calcium. CL Whole Blood 106 98 - 107 mmol/L [facility] Gluc Whole Bld 230(H) 65 - 199 mg/dL [facility] Comment:Diabetes: >=200 mg/d L plus symptoms. Lactate WB 2.0 0.5 - 2.2 mmol/L [facility] Blood specimen (specimen) 06/13/2020 11:08 AM EST 06/13/2020 11:08 AM EST Chun Stanton MD POINT OF CARE TEST ORDERABLES [facility] [place] [address] * (ABNORMAL) BLOOD GAS 2 ARTERIAL (06/13/2020 10:25 AM EST) pH, Arterial 7.38 7.35 - 7.45 [facility] PCO2, Arterial 38 35 - 45 mmHg [facility] PO2, Arterial 436(H) 85 - 104 mmHg [facility] Bicarbonate, Arterial 21.9 20.0 - 26.0 mmol/L [facility] Base Excess, Arterial -3.2(L) -3.0 - 3.0 mmol/L [facility] Hgb Blood Gas 9.2(L) 13.7 - 16.5 gm/dL [facility] Oxyhemoglobin, Arterial 98.8(H) 94.0 - 97.0 % [facility] Carboxyhemoglob in, Arterial 0.3 % [facility] Comment: Nonsmokers: 0.5-1.5% COHB Smokers: Variable, but usually less than 10% Toxic: 20-30% COHB Lethal: Greater than 60% COHB Methemoglobin, Arterial 0.3 <=1.5 % [facility] Na Whole Blood 133(L) 135 - 145 mmol/L [facility] K Whole Blood 5.8(H) 3.5 - 5.0 mmol/L [facility] Comment: Please note: Patients with WBC >100,000 may have falsely elevated Potassium levels. Contact the Clinical Chemistry Laboratory if there are any questions. ICa Whole Blood 0.92(Criti candida) 1.15 - 1.33 mmol/L [facility] Comment: Noted by woodwind instruments inspector. Note: ??Total bilirubin higher than 20 mg/dL may lead to falsely low ionized calcium. CL Whole Blood 104 98 - 107 mmol/L [facility] Gluc Whole Bld 235(H) 65 - 199 mg/dL [facility] Comment:Diabetes: >=200 mg/d L plus symptoms. Lactate WB 2.1 0.5 - 2.2 mmol/L [facility] Blood specimen (specimen) 06/13/2020 10:25 AM EST 06/13/2020 10:25 AM EST Chun Stanton MD POINT OF CARE TEST ORDERABLES Performing Organization Address [facility] [place] [address] * Specimen to Pathology (06/13/2020 10:24 AM EST) AP Specimen 06/13/2020 10:2 4 AM EST 06/13/2020 10:24 AM EST Narrative [facility] - 06/13/2020 10:24 AM EST Specimen requisition ordered. ??Separate Pathology report to follow Chun Stanton MD PATHOLOGY/CYTOLOGY ORDERABLES Performing Organization Address [facility] de Phone Number [facility] [place] [address] * Surgical Pathology Report (06/13/2020 10:23 AM EST) Final Diagnosis [id number] ? Location: [place] [address]; The signing pathologist has (i) examined the relevant preparation(s) for the specimen(s) and (ii) rendered or confirmed the diagnosis(es). . ?Surgical Pathology DIAGNOSIS A - Aortic Valves Leaflets, excision - Valve leaflet tissue with nodular calcific and myxoid degeneration. Electronically signed by: ??Lena Henson DO Verified: ??06/16/2020 ?Pathologist Performed at: ??-[facility] Dept. of Pathology, [place], [place] SPECIMEN(S) SUBMITTED A - Aortic Valves [...] sing: Blocks submitted for decalcification : A1. Back Sizer sections in 1 cassette labeled A1. ??ajw 06/16/2020 3:31 PM EST [facility] AORTIC STRUCTURE / Unknown 06/13/2020 10:23 AM EST 06/13/2020 10:23 AM EST Chun Stanton MD PATHOLOGY/CYTOLOGY ORDERABLES Performing Organization Address City/State/[facility] Co de Phone Number [facility] [place] [address] * (ABNORMAL) BLOOD GAS 2 VENOUS (06/13/2020 9:54 AM EST) pH, Venous 7.33 7.32 - 7.42 [facility] PCO2, Venous 45 41 - 51 mmHg [facility] PO2, Venous 47(H) 25 - 40 mmHg [facility] Bicarbonate, Venous 23.1 mmol/L [facility] Base Excess, Venous -2.9 mmol/L [facility] Hgb Blood Gas 9.3(L) 13.7 - 16.5 gm/dL [facility] Oxyhemoglobin, Venous 79.5 % [facility] Carboxyhemoglob in, Venous 0.9 % [facility] Comment: Nonsmokers: 0.5-1.5% COHB Smokers: Variable, but usually less than 10% Toxic: 20-30% COHB Lethal: Greater than 60% COHB Methemoglobin, Venous 0.3 <=1.5 % [facility] Na Whole Blood 133(L) 135 - 145 mmol/L [facility] K Whole Blood 4.2 3.5 - 5.0 mmol/L [facility] Comment: Please note: Patients with WBC >100,000 may have falsely elevated Potassium levels. Contact the Clinical Chemistry Laboratory if there are any questions. ICa Whole Blood 0.97(L) 1.15 - 1.33 mmol/L [facility] Comment: Note: ??Total bilirubin higher than 20 mg/dL may lead to falsely low ionized calcium. CL Whole Blood 104 98 - 107 mmol/L [facility] Gluc Whole Bld 142 65 - 199 mg/dL [facility] Comment:Diabetes: >=200 mg/d L plus symptoms Lactate WB 1.8 0.5 - 2.2 mmol/L [facility] Blood Gas Source Venous [facility] Blood specimen (specimen) 06/13/2020 9:54 AM EST 06/13/2020 9:54 AM EST Chun Stanton MD POINT OF CARE TEST ORDERABLES Performing Organization Address City/State/[facility] Co de Phone Number [facility] [place] [address] * (ABNORMAL) BLOOD GAS 2 ARTERIAL (06/13/2020 9:51 AM EST) pH, Arterial 7.36 7.35 - 7.45 [facility] PCO2, Arterial 40 35 - 45 mmHg [facility] PO2, Arterial 374(H) 85 - 104 mmHg [facility] Bicarbonate, Arterial 22.2 20.0 - 26.0 mmol/L [facility] Base Excess, Arterial -3.2(L) -3.0 - 3.0 mmol/L [facility] Hgb Blood Gas 9.2(L) 13.7 - 16.5 gm/dL [facility] Oxyhemoglobin, Arterial 99.0(H) 94.0 - 97.0 % [facility] Carboxyhemoglob in, Arterial 0.1 % [facility] Comment: Nonsmokers: 0.5-1.5% COHB Smokers: Variable, but usually less than 10% Toxic: 20-30% COHB Lethal: Greater than 60% COHB Methemoglobin, Arterial 0.3 <=1.5 % [facility] Na Whole Blood 133(L) 135 - 145 mmol/L [facility] K Whole Blood 4.3 3.5 - 5.0 mmol/L [facility] Comment: Please note: Patients with WBC >100,000 may have falsely elevated Potassium levels. Contact the Clinical Chemistry Laboratory if there are any questions. ICa Whole Blood 0.96(L) 1.15 - 1.33 mmol/L [facility] Comment: Note: ??Total bilirubin higher than 20 mg/dL may lead to falsely low ionized calcium. CL Whole Blood 104 98 - 107 mmol/L [facility] Gluc Whole Bld 134 65 - 199 mg/dL [facility] Comment:Diabetes: >=200 mg/d L plus symptoms. Lactate WB 1.9 0.5 - 2.2 mmol/L [facility] Blood specimen (specimen) 06/13/2020 9:51 AM EST 06/13/2020 9:51 AM EST Chun Stanton MD POINT OF CARE TEST ORDERABLES [facility] [place] [address] * (ABNORMAL) BLOOD GAS 2 ARTERIAL (06/13/2020 8:19 AM EST) pH, Arterial 7.39 7.35 - 7.45 [facility] PCO2, Arterial 34(L) 35 - 45 mmHg [facility] PO2, Arterial 99 85 - 104 mmHg [facility] Bicarbonate, Arterial 20.2 20.0 - 26.0 mmol/L [facility] Base Excess, Arterial -4.8(L) -3.0 - 3.0 mmol/L [facility] Hgb Blood Gas 14.8 13.7 - 16.5 gm/dL [facility] Oxyhemoglobin, Arterial 96.4 94.0 - 97.0 % [facility] Carboxyhemoglob in, Arterial 0.6 % [facility] Comment: Nonsmokers: 0.5-1.5% COHB Smokers: Variable, but usually less than 10% Toxic: 20-30% COHB Lethal: Greater than 60% COHB Methemoglobin, Arterial 0.3 <=1.5 % [facility] Na Whole Blood 137 135 - 145 mmol/L [facility] K Whole Blood 5.0 3.5 - 5.0 mmol/L [facility] Comment: Please note: Patients with WBC >100,000 may have falsely elevated Potassium levels. Contact the Clinical Chemistry Laboratory if there are any questions. ICa Whole Blood 1.20 1.15 - 1.33 mmol/L [facility] Comment: Note: ??Total bilirubin higher than 20 mg/dL may lead to falsely low ionized calcium. CL Whole Blood 105 98 - 107 mmol/L [facility] Gluc Whole Bld 186 65 - 199 mg/dL [facility] Comment:Diabetes: >=200 mg/d L plus symptoms. Lactate WB 2.4(H) 0.5 - 2.2 mmol/L [facility] Blood specimen (specimen) 06/13/2020 8:19 AM EST 06/13/2020 8:19 AM EST Chun Stanton MD POINT OF CARE TEST ORDERABLES [facility] [place] [address] * Prepare RBC (06/13/2020 6:40 AM EST) Dispensed? Yes [facility] Blood specimen (specimen) 06/13/2020 6:40 AM EST 06/13/2020 6:39 AM EST Chun Stanton MD BLOOD BANK PRODUCT ORDERABLES [facility] [place] [address] * (ABNORMAL) POCT Glucose (06/13/2020 6:16 AM EST) Glucose, POC 215(H) 65 - 199 mg/dL [facility] Comment: Supplemental ranges: <140 mg/dL before meals <180 mg/dL all other times of the day Blood specimen (specimen) 06/13/2020 6:16 AM EST 06/13/2020 6:16 AM EST Chun Stanton MD POINT OF CARE TEST ORDERABLES Performing Organization Address City/[facility] Co de Phone Number [facility] [place] [address] * SCAN DOC: IMPLANTABLE DEVICES (06/13/2020 12:00 AM EST) Narrative 06/13/2020 12:00 AM EST Ordered by an unspecified provider. Scanning Provider MEDIA MGR SCAN EXT O RDR/RSLT documented in this encounter Visit Diagnoses Not on filedocumented in this encounter Administered Medications Inactive Administered Medications - up to 3 most recent administrations Medication Order MAR Action Action Date Dose Rate Site acetaminophen (Tylenol) tablet 1,000 mg 1,000 mg, [...] Given 06/18/2020 5:55 PM EST 1,000 mg aspirin EC tablet 325 mg 325 mg, Oral, DAILY, First dose on Sat06/14/20 at 0915, Until Discontinued, Routine Given 06/19/2020 8:38 AM EST 325 mg Given 06/18/2020 8:54 AM EST 325 mg Given 06/17/2020 8:19 AM EST 325 mg benzonatate (Tessalon) capsule 100 mg 100 mg, Oral, 3 TIMES DAILY, First dose on Mary Beth 06/16/20 at 2100, Until Discontinued, DO NOT CRUSH OR OPEN, Routine Given 06/19/2020 8:39 AM EST 100 mg Given 06/18/2020 8:14 PM EST 100 mg Given 06/18/2020 3:18 PM EST 100 mg calcium chloride 10% (100 mg/mL) injection ONCE PRN, Starting on 06/13/20 at 1207, Until Sat06/13/20 at 1336, Intra-Operative (Intra-Procedure), Routine Given 06/13/2020 12:07 PM EST 1 g Central Line cardioplegic solution (Plegisol) induction solution CONTINUOUS PRN, Starting on Sat06/13/20 at 0954, Until Sat06/13/20 at 0954, Intra-Operative (Intra-Procedure) New Bag 06/13/2020 9:54 AM EST 255 mLs Central Line cardioplegic solution (Plegisol) maintenance solution CONTINUOUS PRN, Starting on Sat06/13/20 at 1141, Until Sat06/13/20 at 1141, Intra-Operative (Intra-Procedure) New Bag 06/13/2020 11:41 AM EST 449 mLs Central Line Dextromethorphan HBr 5 mg/5 mL oral syrup [...] for the duration of the active insulin. electrolyte (pH 7.4) (NORMOSOL-R; PLASMALYTE-A) injection CONTINUOUS PRN, Starting on Sat06/13/20 at 0942, Until Sat06/13/20 at 0942, Intra-Operative (Intra-Procedure) New Bag 06/13/2020 9:42 AM EST 1 L Central Line furosemide (Lasix) tablet 40 mg 40 mg, Oral, 2 TIMES DAILY, First dose (after last modification) on [facility] 06/16/20 at 0915, Until Discontinued, Routine Given 06/19/2020 8:38 AM EST 40 mg Given 06/18/2020 4:37 PM EST 40 mg Given 06/18/2020 8:54 AM EST 40 mg glipiZIDE XL (Glucotrol XL) tablet 5 [...] Given 06/18/2020 8:55 AM EST 600 mg heparin (porcine) (1,000 units/mL) injection ONCE PRN, Starting on Sat06/13/20 at 0942, Until Sat06/13/20 at 1336, Intra-Operative (Intra-Procedure), Routine Given 06/13/2020 11:46 AM EST 2,000 Units Central Line Given 06/13/2020 11:27 AM EST 3,000 Units Central Line Given 06/13/2020 9:42 AM EST 5,000 Units C entral Line insulin lispro (HumaLOG) (100 unit/mL) subcutaneous injection [...] Given 06/18/2020 8:23 PM EST 3 Units lidocaine (pf) (Xylocaine) (20 mg/mL) 2% injection syringe ONCE PRN, Starting on Sat06/13/20 at 1157, Until Sat06/13/20 at 1336, Intra-Operative (Intra-Procedure), Routine Given 06/13/2020 12:09 PM EST 100 mg Central Line Given 06/13/2020 11:57 AM EST 200 mg C entral Line lisinopriL (Prinivil;Zestril) tablet 40 mg 40 mg, Oral, DAILY, First dose (after last modification) on 06/20/20 at 0900, Until Discontinued, Routine magnesium sulfate 4 mEq/mL (50 %) injection ONCE PRN, Starting on 06/13/20 at 1158, Until 06/13/20 at 1336, Intra-Operative (Intra-Procedure), Routine Given 06/13/2020 11:58 AM EST 2 g Central Line mannitoL (50 grams and over) 100 g/500 mL (20%) infusion CONTINUOUS PRN, Starting on 06/13/20 at 1200, Until Sat06/13/20 at 1200, Intra-Operative (Intra-Procedure) New Bag 06/13/2020 12:00 PM EST 40 g Central Line metFORMIN (Glucophage) tablet 1,000 mg 1,000 mg, Oral, 2 TIMES DAILY WITH MEALS, First dose on 06/19/20 at 0800, Until Discontinued, Routine Given 06/19/2020 [...] Given 06/18/2020 8:52 AM EST 100 mg ondansetron (pf) (Zofran) (2 mg/mL) injection 4 mg 4 mg, Intravenous, EVERY 8 HOURS PRN, Starting on Sat06/13/20 at 1413, Until 06/19/20 at 1408, Nausea Given 06/15/2020 10:53 AM EST 4 mg Given 06/14/2020 8:41 AM EST 4 mg Given 06/13/2020 7:21 PM EST 4 mg oxyCODONE (Roxicodone) tablet 5-10 mg 5-10 mg, Oral, EVERY 4 HOURS PRN, Starting on 06/13/20 at 1413, Until 06/19/20 at 1408, Pain, - When tolerating oral medications. - Initial dose 5 mg. - If pain control not adequate in 60 minutes, give additional 5 mg., Routine Given 06/15/2020 1:34 AM EST 5 mg Given 06/15/2020 12:28 AM EST 5 mg Given 06/14/2020 8:24 PM EST 5 mg pantoprazole EC (Protonix) tablet 40 mg 40 mg, Oral, DAILY, First dose on Sat06/13/20 at 1500, Until Discontinued, DO NOT CRUSH OR OPEN If unable to take PO, may give IV Given 06/19/2020 8:38 AM EST 40 mg Given 06/18/2020 8:54 AM EST 40 mg Given 06/17/2020 8:19 AM EST 40 mg rosuvastatin (Crestor) tablet 40 mg 40 mg, Oral, EVERY EVENING, First dose on Sat06/13/20 at 1700, Until Discontinued, Routine Given 06/18/2020 4:3 7 PM EST 40 mg Given 06/17/2020 4:45 PM EST 40 mg Given 06/16/2020 4:18 PM EST 40 mg sodium bicarbonate 8.4 % (1 meq/ml) IV solution ONCE PRN, Starting on Sat06/13/20 at 0942, Until Sat06/13/20 at 1336, Intra-Operative (Intra-Procedure), Routine Given 06/13/2020 12:17 PM EST 50 mEq Central Line Given 06/13/2020 9:42 AM EST 50 mEq Ce ntral Line sodium chloride 0.9 % (flush) flush 5 mL 5 mL, Intravenous, EVERY 8 HOURS, First dose on Sat06/14/20 at 1600, Until Discontinued, Routine Given 06/18/2020 3:20 PM EST 5 mLs Given 06/18/2020 8:55 AM EST 5 mLs Given 06/18/2020 12:00 AM EST 5 mLs vancomycin (Vancocin) injection ONCE PRN, Starting on Sat06/13/20 at 1255, Until Sat06/13/20 at 1336, Intra-Operative (Intra-Procedure), Routine Given 06/13/2020 12:55 PM EST 1 g 19- Surgical Site verapamiL (Isoptin) (2.5 mg/mL) injection ONCE PRN, Starting on Sat06/13/20 at 0857, Until Sat06/13/20 at 1336, Administer over 2 Minutes, Intra-Operative (Intra-Procedure) Given 06/13/2020 8:57 AM EST 5 mg 19- Surgical Site documented in this encounter Active and Recently [...] Alex Glover RN)1755 (Given - Provider: Alex Glover RN)2336 (Given - Provider: Jose Buckley RN) 0537 (Given - Provider: Jose Buckley RN)1200 (Due) aspirin EC tablet 325 mg 325 mg, Oral, DAILY, First dose on Sat06/14/20 at 0915, Until Discontinued, Routine 0819 (Given - Provider: Emili Escobar RN) 0854 (Given - Provider: lAex Glover RN) 0838 (Given - Provider: Margaux [...] Glover RN)1518 (Given - Provider: Alex Glover RN)2014 (Given - Provider: Jose Buckley RN) 0839 (Given - Provider: Margaux Jones RN) furosemide (Lasix) tablet 40 mg 40 mg, Oral, 2 TIMES DAILY, First dose (after last modification) on Sat06/16/20 at 0915, Until Discontinued, Routine 0819 (Given - Provider: Emili Escobar RN)1645 (Given - Provider: Emili Escobar RN) 0854 (Given - Provider: Alex Glover, MOISES)1637 (Given - Provider: Alex Glover, MOISES) 0838 (Given - Provider: Margaux Jones RN) [...] Glover RN) 0839 (Given - Provider: Margaux Jones RN) guaiFENesin ER (Mucinex) tablet 600 mg 600 mg, Oral, EVERY 12 HOURS, First dose on Sat06/16/20 at 2100, Until Discontinued, DO NOT CRUSH OR OPEN, Routine 0818 (Given - Provider: Emili Escobar RN)2051 (Given - Provider: Nicole Domínguez RN) 08 (Given - Provider: Alex Glover, MOISES)2013 (Given - Provider: Jose Buckley RN) 0838 [...] Escobar RN)1646 (Given - Provider: Emili Escobar RN)2051 (Given - Provider: Nicole Domínguez RN)2325 (Given - Provider: Nicole Domínguez RN) 0405 (Given - Provider: Nicole Domínguez RN)0850 (Given - Provider: Alex Glover RN - Comment: BG 185 per order gave 3 units)1203 (Given - Provider: Alex Glover RN - Comment: BG 220 per order gave 4 units)1518 (Given - Provider: Alex Glover RN - Comment: BG 145, gave 1 unit)2023 (Given - Provider: Jose Buckley RN)2337 (Given - Provider: Jose Buckley RN) 0538 (Given - Provider: Jose Buckley RN)0800 (Not Given - Provider: Margaux Jones RN - Reason: Order parameters not met)1200 (Due) lisinopriL (Prinivil;Zestril) tablet 10 mg (COMPLETED) 10 mg, Oral, ONCE, 1 dose, On Sat06/19/20 at 0930, Routine 1033 (Given - Provider: [...] Glover RN) 0838 (Given - Provider: Margaux Jones, RN) lisinopriL (Prinivil;Zestril) tablet 40 mg 40 mg, Oral, DAILY, First dose (after last modification) on 06/20/20 at 0900, Until Discontinued, Routine metFORMIN (Glucophage) tablet 1,000 mg 1,000 mg, Oral, 2 TIMES DAILY WITH MEALS, First dose on Sat06/19/20 at 0800, Until Discontinued, Routine 0838 (Given - Provider: Margaux Jones RN) metoprolol tartrate (Lopressor) tablet 100 mg 100 mg, Oral, EVERY 12 HOURS SCHEDULED, First dose (after last modification) on [facility] 06/16/20 at 2100, Until Discontinued, Hold for HR<60, SBP<90., Routine 08 (Given - Provider: Emili Escobar RN)2051 (Given - Provider: Nicole Domínguez RN) 851 (Given - Provider: Alex Glover RN)2013 (Given - Provider: Jose Buckley RN) 0838 (Given - Provider: Margaux Jones RN) pantoprazole EC (Protonix) tablet 40 mg(Linked Group 3) 40 mg, Oral, DAILY, First dose on 06/13/20 at 1500, Until Discontinued, DO NOT CRUSH OR OPEN If unable to take PO, may give IV 0819 (Given - Provider: Emili Escobar RN) 0854 (Given - Provider: Alex Glover RN) 08 (Given - Provider: Margaux Jones RN) potassium chloride ER (K-Dur/Klor-Con) tablet 10 mEq (COMPLETED) 10 mEq, Oral, ONCE, 1 dose, On Sat06/17/20 at 0715, Routine 0818 (Given - Provider: Emili Escobar RN) potassium chloride ER (K-Dur/Klor-Con) tablet 30 mEq (COMPLETED) 30 mEq, Oral, ONCE, 1 dose, On 06/18/20 at 0730, Routine 0855 (Given - Provider: Alex Glover, MOISES) rosuvastatin (Crestor) tablet 40 mg 40 mg, Oral, EVERY EVENING, First dose on Sat06/13/20 at 1700, Until Discontinued, Routine 1645 (Given - Provider: Emili Escobar RN) 1637 (Given - Provider: Alex Glover, MOISES) sodium chloride 0.9 % (flush) flush 5 mL 5 mL, Intravenous, EVERY 8 HOURS, First dose on Sat06/14/20 at 1600, Until Discontinued, Routine 0800 (Given - Provider: Emili Escobar, MOISES)1600 (Given - Provider: Emili Escobar RN) 0000 (Given - Provider: Nicole Domínguez RN)0855 (Given - Provider: Alex Glover RN)1520 [...] Nicole Domínguez RN)2325 (Given - Provider: Nicole Domínguez, MOISES) 0613 (Given - Provider: Nicole Domínguez RN)2300 [...] on Mary Beth 06/16/20 at 0929, Until Sun 12 at 1408, Low blood sugar, For BG [...] Intravenous, EVERY 8 HOURS PRN, Starting on Sat06/13/20 at 1413, Until 06/19/20 at 1408, Nausea oxyCODONE (Roxicodone) tablet 5-10 mg 5-10 mg, Oral, EVERY 4 HOURS PRN, Starting on Sat06/13/20 at 1413, Until 06/19/20 at 1408, Pain, - When tolerating oral [...] Routine documented in this encounter Care Teams Manufacturing Coordinator Relationship Specialty Start Date End Date Ramiro Ball MD [address] [place] [id number] PCP - General 06/06/10 02/17/24 documented as of this encounter
--- OUTSIDE RECORDS SUMMARY | 2024-03-26 15:54 | XMS_ITS | Encounter Summary ---
Author Organization [facility] [place] [address] Care Team Providers Care Manager Cleaning Name Role Phone Ramiro Ball MD Primary Care Provider [phone] Reason for Visit * Auth/Cert Specialty Diagnoses / Procedures Referred By Luca beltran Referred To Contact Diagnoses Aortic stenosis /PRE TAVR Procedures PRG CATH PLMT CORONARY ART W/INJ FOR ANGIO W/R HEART CATH IMG S&I CARDIAC CATHETERIZATION CORONARY ANGIOGRAPHY; W C Referral ID Status Reason Start Date Expiration Date Visits Re quested Visits Authorized [id number] 1 1 Encounter Details Date Type Department Care Team (Late st Contact Info) Description 06/03/2020 3:30 PM EST [place] [phone] Social History Tobacco Use Types Packs/Day Years [...] Sign Reading Time Taken Comments Blood Pressure - - Pulse - - Temperature - - Respiratory Rate - - Oxygen Saturation - - Inhaled Oxygen Concentration - - Weight 79.4 kg (175 lb) 06/03/2020 3:04 PM EST Height 170.2 cm (5' 7) 06/03/2020 3:04 PM EST Body Mass Index 27.41 06/03/2020 3:04 PM EST documented in this encounter Progress Notes * Nkechi Bustillos, RN - 06/03/2020 3:30 PM EST PAT questionnaire reviewed with patient and johny while in Pre Admission testing. Pt had anesthesia as a child. Pre-operative instruction booklet reviewed with patient. Reviewed importance of pain control and cough and deep breathing exercise during the post-operative period. Instructed patienton use of Hibiclens soap to shower with the night before surgery or the morning of surgery. Pt verbalizes good understanding of all information reviewed. Pt aware they will receive Cardiac Surgery folder and DVDin the mail. Pt to bring booklet and DVD in overnight bag. PLAN Testing: Type and screen other labs, urine, sent to for CXR Special medication instructions: Procedure date: 06-13-20 Dr Wiley documented in this encounter Plan of Treatment Upcoming Encounters Date Type Department Care Team (Late st Contact Info) Description 08/27/2024 2:30 PM EST [place] [address] Susanna Cm, DIVISION CONTROLLER [facility] [place] [address] documented as of this encounter Visit Diagnoses Not on filedocumented in this encounter Care Teams Manager Cleaning Relationship Specialty Start Date End Date Ramiro Ball MD [address] [place] [id number] PCP - General 06/06/10 02/17/24 documented as of this encounter
--- OUTSIDE RECORDS SUMMARY | 2024-03-26 15:54 | XMS_ITS | Encounter Summary ---
Author Organization [facility] Address [facility] [place] [address] Care Team Providers Care Outboard Motor Assembler Name Role Phone Ramiro Ball MD Primary Care Provider [phone] Reason for Visit * Auth/Cert Specialty Diagnoses / Procedures Referred By Luca beltran Referred To Contact Diagnoses Aortic stenosis /PRE TAVR Procedures PRG CATH PLMT CORONARY ART W/INJ FOR ANGIO W/R HEART CATH IMG S&I CARDIAC CATHETERIZATION CORONARY ANGIOGRAPHY; W RHC Referral ID Status Reason Start Date Expiration Date Visits Re quested Visits Authorized [id number] 1 1 Encounter Details Date Type Department Care Team (Latest Contact Info) Description 06/03/2020 4:13 PM EST - 06/03/2020 11:59 PM [facility] Hospital Encounter XRay at [address] [place] [address] Chun Wiley MD [facility] [place] [address] Nonrheumatic aortic valve stenosis Discharge Disposition: Home [...] 2:30 PM EST Office [place] [address] Susanna Cm APRN [facility] [place] [place] [address] documented as of this encounter Procedures Procedure Name Priority Date/Time Associated Diagnosis Comments XR CHEST PA AND LATERAL Routine 06/03/2020 4:21 PM EST Nonrheumatic aortic valve stenosis documented in this encounter Results * XR [...] disorders documented in this encounter Care Teams Outboard Motor Assembler Relationship Specialty Start Date End Date Ramiro Ball MD [address] [place] [address] PCP - General 06/06/10 02/17/24 documented as of this encounter
--- OUTSIDE RECORDS SUMMARY | 2024-03-26 15:54 | XMS_ITS | Encounter Summary ---
Author Organization [place] [address] Care Team Providers Care Construction Materials Tester Name Role Phone Ramiro Ball MD Primary Care Provider Reason for Referral * Diagnostic Test (Routine) - Closed Specialty Diagnoses / Procedures Referred By Luca t Referred To Contact Radiology Diagnoses Aortic stenosis, severe Procedures CT Angiogram Abdomen & Pelvis w Contrast (Generic) [facility] [address] [address] [place] [address] [facility] [place] [address] Referral ID Status Reason Start Date Expiration Date V isits Requested Visits Authorized [id number] Closed Specialty Service Requested 05/21/2020 11/17/2020 1 1 * Diagnostic Test (Routine) - Closed Specialty Diagnoses / Procedures Referred By Contac t Referred To Contact Radiology Diagnoses Aortic stenosis, severe Procedures CT Cardiac for Morphology & Function [facility] [address] [place] [address] [facility] [place] [address] Referral ID Status Reason Start Date Expiration Date V isits Requested Visits Authorized [id number] Closed Specialty Service Requested 05/26/2020 11/19/2020 1 1 Reason for Visit * Diagnostic Test (Routine) - Closed Specialty Diagnoses / Procedures Referred By Luca beltran Referred To Contact Radiology Diagnoses Aortic stenosis, severe Procedures CT Cardiac for Morphology & Function [facility] [address] [place] [phone] [facility] [place] [address] Referral ID Status Reason Start Date Expiration Date V isits Requested Visits Authorized [id number] Closed Specialty Service Requested 05/26/2020 11/19/2020 1 1 Encounter Details Date Type Department Care Team (Latest Contact Info) Description 05/26/2020 10:04 AM EST - 05/26/2020 11:14 AM EST Hospital [place] [address] Jim Castelan MD [facility] [place] [address] Aortic stenosis, severe Discharge Disposition: Home Social History Tobacco Use Types Packs/Day Years Used Date Smoking Tobacco: Never Smokeless Tobacco: Never Sex and Gender Information Value Date Recorded [...] TABLET BY MOUTH TWICE A DAY 04/10/2020 chlorhexidine (HIBICLENS) 4 % Liquid Apply topically [...] 2:30 PM EST Office [place] [address] Susanna Cm, ANH [facility] [place] [address] documented as of this encounter Procedures Procedure Name Priority Date/Time Associated Diagnosis Comments CT HEART FOR FUNCTION (NON-CORONARY) W CONTRAST Routine 05/26/2020 10:35 AM EST Aortic stenosis, severe CT ANGIOGRAM ABDOMEN AND PELVIS W CONTRAST Routine 05/26/2020 10:35 AM EST Aortic stenosis, severe documented in this encounter Results * CT Angiogram Abdomen & Pelvis w Contrast (Generic) (05/26/2020 10:35 AM EST) Anatomical Region Laterality Modality Abdomen, Pelvis Computed Tomogra phy Impressions 05/26/2020 11:39 AM EST Incidental note made of moderate left and large fat filled right inguinal hernias with small right inguinal cystocele. Pre TAVR measurements as above. Thank you for letting us participate in the care of this patient. For questions regarding this report, please contact the number below. ? Narrative 05/26/2020 11:39 AM EST EXAMINATION: CT ANGIOGRAM ABDOMEN AND PELVIS W CONTRAST (GENERIC) CLINICAL HISTORY: TAVR screening; iliac and bifurcation sizing and calcification, aortic stenosis TECHNIQUE: Helical CTA of the abdomen and pelvis was performed after intravenous administration of contrast. 102 cc Omnipaque 350 intravenous contrast. Coronal and sagittal reconstructions were generated. Three-dimensional volume reconstructions were created on an independent computer workstation. COMPARISON: None FINDINGS: VASCULAR Abdominal aorta: Mildly calcified mural atherosclerotic disease. No aneurysm. No dissection. (Minimal luminal diameters) Suprarenal aorta: 19.8 mm Juxtarenal aorta: 18 mm Infrarenal aorta: 13.1 mm Degree of calcification at aortic bifurcation: Mild Branch vessels: Celiac artery: Widely patent. Gives rise to left gastric and splenic arteries. SMA: Widely patent. Replaced common hepatic artery arises from SMA. Right renal artery: Widely patent. Left renal artery: Widely patent. STANLEY: Widely patent. Iliac/Femoral Arteries: (Minimal luminal diameters) Right common iliac: 9.4 mm Right external iliac: 6.5 mm Right common femoral: 4.1 mm Left common iliac: 7.4 mm Left external iliac: 7.3 mm Left common femoral: 6 mm Tortuosity on the right: Mild, 17 degrees/cm Tortuosity on the left: Moderate, 30 degrees/cm NON-VASCULAR FINDINGS Liver: Normal. Bile ducts: Nondilated. Gallbladder: No calcified gallstones. Normal caliber wall. Pancreas: Normal. Spleen: Normal. Adrenals: Normal. Kidneys: Normal. Urinary Bladder: Small right inguinal cystocele. Lymph Nodes: No enlarged lymph nodes. Bowel: Moderate fecal burden. Diverticulosis without acuity. Normal caliber loops of small bowel without mural thickening. Small hiatal hernia. Peritoneum and mesentery: No ascites, free air, or loculated fluid collection. No mesenteric inflammation. Abdominal wall: Moderate left and large right fat filled umbilicus region hernias. Osseous structures: Considerable degenerative changes at L3-4 with subchondral sclerosis and effacement of the intervertebral disc space at this level. No suspicious lesions. No acute fractures. Procedure Note Nani Lund MD - 05/26/2020 EXAMINATION: CT ANGIOGRAM ABDOMEN AND PELVIS W CONTRAST (GENERIC) CLINICAL HISTORY: TAVR screening; iliac and bifurcation sizing and calcification, aortic stenosis TECHNIQUE: Helical CTA of the abdomen and pelvis was performed afterintravenous administration of contrast. 102 cc Omnipaque 350 intravenous contrast.Coronal and sagittal reconstructions were generated. Three-dimensional volume reconstructions were created on an independent computer workstation. COMPARISON: None FINDINGS: VASCULAR Abdominal aorta: Mildly calcified mural atherosclerotic disease. Noaneurysm. No dissection. (Minimal luminal diameters) Suprarenal aorta: 19.8 mm Juxtarenal aorta: 18 mm Infrarenal aorta: 13.1 mm Degree of calcification at aortic bifurcation: Mild Branch vessels: Celiac artery: Widely patent. Gives rise to left gastric and splenicarteries. SMA: Widely patent. Replaced common hepatic artery arises from SMA. Right renal artery: Widely patent. Left renal artery: Widely patent. STANLEY: Widely patent. Iliac/Femoral Arteries: (Minimal luminal diameters) Right common iliac: 9.4 mm Right external iliac: 6.5 mm Right common femoral: 4.1 mm Left common iliac: 7.4 mm Left external iliac: 7.3 mm Left common femoral: 6 mm Tortuosity on the right: Mild, 17 degrees/cm Tortuosity on the left: Moderate, 30 degrees/cm NON-VASCULAR FINDINGS Liver: Normal. Bile ducts: Nondilated. Gallbladder: No calcified gallstones. Normal caliber wall. Pancreas: Normal. Spleen: Normal. Adrenals: Normal. Kidneys: Normal. Urinary Bladder: Small right inguinal cystocele. Lymph Nodes: No enlarged lymph nodes. Bowel: Moderate fecal burden. Diverticulosis without acuity. Normalcaliber loops of small bowel without mural thickening. Small hiatal hernia. Peritoneum and mesentery: No ascites, free air, or loculated fluidcollection. No mesenteric inflammation. Abdominal wall: Moderate left and large right fat filled umbilicusregion hernias. Osseous structures: Considerable degenerative changes at L3-4 withsubchondral sclerosis and effacement of the intervertebral disc space at this level.No suspicious lesions. No acute fractures. IMPRESSION Incidental note made of moderate left and large fat filled rightinguinal hernias with small right inguinal cystocele. Pre TAVR measurements as above. Thank you for letting us participate in the care of this patient. Forquestions regarding this report, please contact the number below. Jim Castelan MD IMG CT ORDERABLES * CT Cardiac for Morphology & Function (05/26/2020 10:35 AM EST) Anatomical Region Laterality Modality Chest, Cardiac Computed Tomogra phy Impressions 05/26/2020 4:48 PM EST Pre-TAVR measurements, as above. Single enlarged AP window lymph node with normal fatty hilum, of indeterminate etiology/significance. I have personally reviewed the image(s) and the resident's interpretation and agree with the findings, Deja Haley MD at 05/26/2020 4:48 PM Thank you for letting us participate in the care of this patient. For questions regarding this report, please contact the number below. ? Narrative 05/26/2020 4:[address] for morphology and function with contrast CLINICAL HISTORY: TAVR screening; aortic annuar sizing and calcification; please include subclavian assessment, aortic stenosis COMPARISON: None. TECHNIQUE: After timing bolus, 0.6 mm thick axial contiguous sections were obtained through the heart via ECG-gated helical acquisition during intravenous administration of 102 cc Omnipaque 350. (CTA abdomen and pelvis is reported separately.) Post-processing was performed on an independent computer workstation including multiplanar MIP reconstructions. FINDINGS: Heart rate: mean 71 bpm, range 70 to 78 bpm Heart rhythm: regular ECG gating: Successful identification of every R wave. ECG editing: Not performed. Artifacts: No significant artifacts. Aortic valve: Imaging phase: 35% Calcification of leaflets: Severe trileaflet calcification. Suggested fluoroscopic angulation based on line extending through the nadirs of the three sinuses of Valsalva, set equidistant: ?? Anterior oblique plane: ERICA Anterior oblique angulation: 21 Craniocaudal plane: STATIONARY STEAM ENGINEER Craniocaudal angulation: 25 [id number] height: Imaging phase: 75% Right: 12.9 mm Left: 14.4 mm Valve leaflet length: Imaging phase: 75% Right: 16.8 mm Left: 16.3 mm Annulus: Imaging phase: 35% Diameters: 24.4 mm x 20.8 mm Area: 416 mm2 Circumference: 75 mm Calcification: Severe nodular calcific focus below left sinus with calcific ridge extending to the mitral valve annulus. Small calcific nodular focus below right sinus. Aortic root/sinuses of Valsalva: Imaging phase: 35% Diameter: 34.0 mm Aortoventricular angle: [56.5] degrees Sinotubular junction: Imaging phase: 35% Effacement: Not effaced. Diameters: 26.3 mm x 28.9 mm Area: 625 mm2 Circumference: 90 mm Calcification: Small focus of calcification above the left sinus. Thoracic aorta beyond the sinotubular junction: Mid ascending aorta: 23 mm Mid aortic arch: 23 mm Mid descending aorta: 29 mm Distal descending aorta, near hiatus: 19 mm Aortic arch branch vessels: Configuration: 3 vessels in classic configuration. Patency: Widely patent. Left subclavian artery: [6.3] mm x [8.0] mm Left axillary artery: [5.7] mm x [7.8] mm Annulus to innominate distance: 9.2 cm Other cardiovascular structures: Moderate coronary artery calcification and LAD stent. Moderate to severe mitral annulus annulus calcification. No pericardial effusion. Pulmonary parenchyma, airways, pleura: 2 mm peripheral left upper lobe pulmonary nodule (series 7, image 51) for which no further follow-up is required. Left perifissural sub-6 mm nodule (series 7, image 58), compatible with an intrapulmonary lymph node. Single enlarged mediastinal lymph node, specifically 16 mm short axis AP window lymph node with normal fatty hilum, of indeterminate etiology/significance. Upper abdomen: See separately reported CTA abdomen and pelvis. Skeletal structures: No suspicious osseous lesion. Procedure Note Deja Haley MD - 05/26/[address] for morphology and function with contrast CLINICAL HISTORY: TAVR screening; aortic annuar sizing and calcification;please include subclavian assessment, aortic stenosis COMPARISON: None. TECHNIQUE: After timing bolus, 0.6 mm thick axial contiguous sectionswere obtained through the heart via ECG-gated helical acquisition duringintravenous administration of 102 cc Omnipaque 350. (CTA abdomen and pelvis isreported separately.) Post-processing was performed on an independent computer workstation including multiplanar MIP reconstructions. FINDINGS: Heart rate: mean 71 bpm, range 70 to 78 bpm Heart rhythm: regular ECG gating: Successful identification of every R wave. ECG editing: Not performed. Artifacts: No significant artifacts. Aortic valve: Imaging phase: 35% Calcification of leaflets: Severe trileaflet calcification. Suggested fluoroscopic angulation based on line extending through thenadirs of the three sinuses of Valsalva, set equidistant: Anterior oblique plane: ERICA Anterior oblique angulation: 21 Craniocaudal plane: STATIONARY STEAM ENGINEER Craniocaudal angulation: 25 [id number] height: Imaging phase: 75% Right: 12.9 mm Left: 14.4 mm Valve leaflet length: Imaging phase: 75% Right: 16.8 mm Left: 16.3 mm Annulus: Imaging phase: 35% Diameters: 24.4 mm x 20.8 mm Area: 416 mm2 Circumference: 75 mm Calcification: Severe nodular calcific focus below left sinus withcalcific ridge extending to the mitral valve annulus. Small calcific nodular focusbelow right sinus. Aortic root/sinuses of Valsalva: Imaging phase: 35% Diameter: 34.0 mm Aortoventricular angle: [56.5] degrees Sinotubular junction: Imaging phase: 35% Effacement: Not effaced. Diameters: 26.3 mm x 28.9 mm Area: 625 mm2 Circumference: 90 mm Calcification: Small focus of calcification above the left sinus. Thoracic aorta beyond the sinotubular junction: Mid ascending aorta: 23 mm Mid aortic arch: 23 mm Mid descending aorta: 29 mm Distal descending aorta, near hiatus: 19 mm Aortic arch branch vessels: Configuration: 3 vessels in classic configuration. Patency: Widely patent. Left subclavian artery: [6.3] mm x [8.0] mm Left axillary artery: [5.7] mm x [7.8] mm Annulus to innominate distance: 9.2 cm Other cardiovascular structures: Moderate coronary artery calcificationand LAD stent. Moderate to severe mitral annulus annulus calcification. Nopericardial effusion. Pulmonary parenchyma, airways, pleura: 2 mm peripheral left upper lobepulmonary nodule (series 7, image 51) for which no further follow-up is required.Left perifissural sub-6 mm nodule (series 7, image 58), compatible with an intrapulmonary lymph node. Single enlarged mediastinal lymph node, specifically 16 mm short axis APwindow lymph node with normal fatty hilum, of indeterminateetiology/significance. Upper abdomen: See separately reported CTA abdomen and pelvis. Skeletal structures: No suspicious osseous lesion. IMPRESSION Pre-TAVR measurements, as above. Single enlarged AP window lymph node with normal fatty hilum, ofindeterminate etiology/significance. I have personally reviewed the image(s) and the resident's interpretationand agree with the findings, Deja Haley MD at 05/26/2020 4:48 PM Thank you for letting us participate in the care of this patient. Forquestions regarding this report, please contact the number below. Jim Castelan MD IMG CT ORDERABLES documented in this encounter Visit Diagnoses Diagnosis Aortic stenosis, severe Aortic valve disorders documented in this encounter Administered Medications Inactive Administered Medications - up to 3 most recent administrations Medication Order MAR Action Action Date Dose Rate Site iohexoL (Omnipaque) 350 mg/mL solution 0-200 mL 0-200 mL, Intravenous, ONCE PRN, 1 dose, Starting on Mary Beth 05/26/20 at 1029, Until Mary Beth 05/26/20 at 1029, Per Protocol, Warning Vesicant/Irritant Medication , Radiology Contrast, Routine Given 05/26/2020 10:29 AM EST 102 mLs documented in this encounter Care Teams Construction Materials Tester Relationship Specialty Start Date End Date Ramiro Ball MD [address] [address] PCP - General 06/06/10 02/17/24 documented as of this encounter
--- OUTSIDE RECORDS SUMMARY | 2024-03-26 15:55 | XMS_ITS | Encounter Summary ---
Author Organization [place] [address] Care Team Providers Care Chief Privacy Officer Name Role Phone Ramiro Ball MD Primary Care Provider [phone] Encounter Details Date Type Department Care Team (Late st Contact Info) Description 03/01/2011 Abstract [facility] [address] [place] [phone] Charissa Goodman RN ASCVD (arteriosclerotic cardiovascular disease); Aortic stenosis Social History Tobacco Use Types Packs/Day [...] 2:30 PM EST [place] [address] Susanna Cm APRN [facility] [place] [address] documented as of this encounter Visit Diagnoses Diagnosis ASCVD (arteriosclerotic cardiovascular disease) Unspecified cardiovascular disease Aortic stenosis Aortic valve disorders documented in this encounter Care Teams Chief Privacy Officer Relationship Specialty Start Date End Date Ramiro Ball MD [address] [place] [address] PCP - General 06/06/10 02/17/24 documented as of this encounter
--- OUTSIDE RECORDS SUMMARY | 2024-03-26 15:55 | XMS_ITS | Encounter Summary ---
Author Organization Formerly [facility], 1928–1983 [facility] [place] [address] Care Team Providers Care Salesperson Men'S Furnishings Name Role Phone Ramiro Ball MD Primary Care Provider [phone] Encounter Details Date Type Department Care Team (Latest Contact Info) Description 05/26/2020 3:40 PM EST Office Visit Cardiology at [address] [address] Jim Castelan MD [facility] [place] [address] Aortic valve stenosis, etiology of cardiac valve disease unspecified; ASCVD (arteriosclerotic cardiovascular disease); Hypertension, unspecified type; Elevated cholesterol Social History Tobacco Use Types Packs/Day Years Used Date Smoking Tobacco: Never Smokeless Tobacco: Never Sex and Gender Information Value Date Recorded Sex Assigned at Not on file Gender Identity Not on file Sexual Orientation Not on file documented as of this encounter Last Filed Vital Signs Vital Sign Reading Time Taken Comments Blood Pressure 151/83 05/26/2020 2:29 PM EST Pulse 78 05/26/2020 2:29 PM EST Temperature - - Respiratory Rate 20 05/26/2020 2:29 PM EST Oxygen Saturation 100% 05/26/2020 2:29 PM EST Inhaled Oxygen Concentration - - Weight 79.5 kg (175 lb 3.2 oz) 05/26/2020 2:29 P M EST Height 170.2 cm (5' 7) 05/26/2020 2:29 PM EST Body Mass Index 27.44 05/26/2020 2:29 PM EST documented in this encounter Progress Notes * Jim Castelan MD - 05/26/2020 3:40 PM EST Images from the original note were not included. [facility] [address] [place], [place] [address] CARDIOVASCULAR MEDICINE OUTPATIENT CONSULTATION [facility] Johnson Tobar Primary Care Provider: Ramiro Ball MD REFERRING PROVIDER: Joseph Lackey CHIEF COMPLAINT: Aortic stenosis PROBLEM LIST: 1. Aortic stenosis A. Aortic valve area 0.8 cm??, peak/mean gradient 57/41 mmHg, EF 65% 2. Diabetes mellitus, type II A. Managed on Metformin 3. Degenerative joint disease, involving primarily the knees 4. Hypertension 5. Hyperlipidemia 6. ASCVD A. Status post mid LAD stent with 3 X 15 mm MultiLink, [address] Lucien Pichardo 7. Chronic kidney disease, stage II A. Baseline creatinine is 1.3 HISTORY OF PRESENT ILLNESS: 69-year-old gentleman is seen in consultation for aortic valve therapies, referred by Dr. Joseph Lackey. Social history: The patient is from [facility]. 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 He is and lives with his on his farm, and they have 2 grown children who are out of the house. He is a lifelong non-smoker and rarely drinks alcoholic beverages. He enjoys watching sports on TV, and is a tie hard [employer] baseball fan. He also played basketball for many years, but had to stop doing it recently because of bilateral knee pain. He enjoys watching basketball and football on TV. Over the summer months, he noticed he had more difficulty out in the underwood with shortness of breath and fatigue. He was seen at [facility] by Dr. Lackey where an echocardiogram revealed progression of his aortic valve disease into the severe range. Accordingly, he was referred for consideration of aortic valve therapies. He reports no exertional chest tightness, pressure, or pain. He denies orthopnea. He has had exertional shortness of breath when in the underwood, but nothing with hisnormal routine daily activities. Review of systems is as noted below. PAST MEDICAL HISTORY (Problem List) Patient Active Problem List Diagnosis ??? Aortic valve stenosis Added automatically [...] mean Gr 57; PASP 35-45; Trivial AI/MR SOCIAL HISTORY: Reviewed and updated as appropriate in the medical record. FAMILY HISTORY: Reviewed and updated as appropriate in the medical record. Review of Systems: CardioVascular Pre Appointment Symptom Review 05/26/2020 Angina (chest discomfort) Frequency: None Shortness of breath: Only with moderate or strenous activity Palpitations (skipped beats): No Leg swelling: No Loss of consciousness: No Difficulty lying flat (because of breathing): No Chills: No Fatigue: No Fever: No Unintended weight change: No Nosebleeds: No Difficulty swallowing: No Visual disturbances: No Frequent cough: Yes Wheezing: Yes Snoring: No Abdominal pain: No Diarrhea: Yes Blood in bowel movement: No Black, tarry bowel movement: No Nausea/vomiting: No Heat/cold intolerance: No Problems urinating: No Joint pains: No Muscle pain: No Rash: No Weakness/numbness: No Speech problems: No Easy bruising/bleeding: No Depression: No Anxiety: No Poor sleep: No As noted in the the HPI; all others negative MEDICATIONS: Current Outpatient Medications Medication Sig Dispense Refill ??? glipiZIDE XL (Glucotrol XL) 10 mg Tablet Extended Rel 24 hr TAKE 1 TABLET BY MOUTH ONCE DAILY ??? lisinopriL (PRINIVIL;ZESTRIL) 30 mg Tablet TAKE ONE TABLET BY MOUTH EVERY DAY ??? metFORMIN (GLUCOPHAGE) 1,000 mg Tablet TAKE ONE TABLET BY MOUTH TWICE A DAY ??? metoprolol tartrate (Lopressor) 50 mg Tablet TAKE ONE TABLET BY MOUTH TWICE A DAY ??? omeprazole (PriLOSEC) 20 mg Capsule, Delayed Release(E.C.) TAKE ONE CAPSULE BY MOUTH EVERY DAY ??? rosuvastatin (Crestor) 40 mg Tablet TAKE ONE TABLET BY MOUTH EVERY DAY ALLERGIES: Reviewed and updated as appropriate in the medical record. PHYSICAL EXAMINATION: BP 151/83 Pulse 78 Resp 20 Ht 170.2 cm (5' 7) Wt 79.5 kg (175 lb 3.2 oz) SpO2 100% BMI27.44 kg/m?? Exam Details: Psych: mood and affect normal Skin: intact with no breakdown Neuro: grossly non-focal Heme/Lymph: no lymphadenopthy Pleasant patient who is in no distress. Neck is supple with transmitted aortic sounds bilaterally. Lung underwood are clear to auscultation. Cardiac exam reveals a late peaking systolic ejection murmur heard across the precordium with radiation to the neck. Abdomen is soft and nontender. Extremities show trace edema with 1+ radial pulses and normal Luan's test. Neurologically, the patient is awake,alert, and appropriate with a grossly nonfocal exam. EKG: Sinus rhythm with left atrial enlargement and LVH, prominent T waves in lead V2, nonspecific ST changes inferiorly with inferior Q waves ASSESSMENT: 1. Severe symptomatic aortic stenosis 2. Moderate annular calcium on CTA 3. Previous coronary artery disease with LAD stenting, 1997 4. Diabetes mellitus, type II RECOMMENDATIONS: At today's visit, we discussed the natural history of aortic valve stenosis. We reviewed the treatment options including medical therapy, surgical aortic valve replacement, palliation, and transcatheter aortic valve replacement. We discussed the intricacies of each approach, the pros and the cons, and discussed the rationale for considering one versus another. We also reviewed the data suggestingequipoise between a surgical approach and a transcatheter approach in most patients, with recent data suggesting lower risk patients may have improved outcomes with TAVR. We reviewed that medical therapy has been proven to be inferior to either in terms of survival. After reviewing all of the information, the patient's questions were answered. We reviewed the results of testing from today's visit and previous visits related to aortic valve disease. The information still needed includes a cardiac catheterization, and this is been scheduled for a week from today. Once we have this information, I can yomba shoshone back to Dr. Chun Wiley and we can have a final discussion. From a TAVR perspective, he has adequate iliofemoral vessels to allow for passage of a transcatheter valve, but has significant annular calcium which may make the risk of annular injury and or incomplete seal higher. In light of this, an open surgical approach may be more appropriate, particularly in light of his younger age. This was reviewed with the patient and his questions were answered. documented in this encounter Plan of Treatment Upcoming Encounters Date Type Department Care Team (Late st Contact Info) Description 08/27/2024 2:30 PM EST [place] [address] Susanna Cm APRN [facility] [place] [address] documented as of this encounter Visit Diagnoses Diagnosis Aortic valve stenosis, etiology of cardiac valve disease unspecified ASCVD (arteriosclerotic cardiovascular disease) Unspecified cardiovascular disease Hypertension, unspecified type Elevated cholesterol Pure hypercholesterolemia documented in this encounter Care Teams Salesperson Men'S Furnishings Relationship Specialty Start Date End Date Ramiro Ball MD [address] [place] [id number] PCP - General 06/06/10 02/17/24 documented as of this encounter
--- OUTSIDE RECORDS SUMMARY | 2024-03-26 15:55 | XMS_ITS | Encounter Summary ---
Author Organization [facility] Address [facility] Juan Miguel [facility] [place] [address] Care Team Providers Care Creel Hand Name Role Phone Ramiro Ball MD Primary Care Provider [phone] Encounter Details Date Type Department Care Team (Late st Contact Info) Description 05/26/2020 2:40 PM EST Office Visit [place] [address] Chun Wiley MD [facility] [place] [address] Aortic stenosis, severe Social History Tobacco Use Types Packs/Day Years Used Date Smoking Tobacco: Never Smokeless Tobacco: Never Sex and Gender Information Value Date Recorded Sex Assigned at Not on file Gender Identity Not on file Sexual Orientation Not on file documented as of this encounter Last Filed Vital Signs Vital Sign Reading Time Taken Comments Blood Pressure 151/83 05/26/2020 2:26 PM EST Pulse 78 05/26/2020 2:26 PM EST Temperature - - Respiratory Rate 20 05/26/2020 2:26 PM EST Oxygen Saturation 100% 05/26/2020 2:26 PM EST Inhaled Oxygen Concentration - - Weight 79.5 kg (175 lb 3.2 oz) 05/26/2020 2:26 P M EST Height 170.2 cm (5' 7) 05/26/2020 2:26 PM EST Body Mass Index 27.44 05/26/2020 2:26 PM EST documented in this encounter Progress Notes * Chun Wiley MD - 05/26/2020 2:40 PM EST Pt. Johnson Tobar ( 1950) Primary Care Provider: Ramiro Ball MD ?? REFERRING PROVIDER's: Joseph Lackey MD, Jim Castelan MD Thank you for the opportunity to meet today with Mr. Tobar and his (via the phone) to discuss issues surrounding the management of his progressively severe known aortic stenosis which is become symptomatic with dyspnea and chest pain. Although well-known to you please allow me to reiteratesome of the pertinent issues for the purpose of the chart. Mr. Tobar is a 69-year-old male withknown aortic stenosis. I reviewed her recent echocardiogram which shows severe, likely trileaflet aortic stenosis with an aortic valve area of 0.8 cm??, the mean gradient is 57, the peak velocity across this valve is 5 m/s. His LV systolic function is preserved. A complete review of systems and past medical history was obtained. The pertinent issues are as below. His symptoms are those of class II exertional dyspnea and occasional exertional chest pain. Importantly he is has known atherosclerotic coronary disease having undergone PCI with stent placement of an LAD lesion in the past. He has treated hypertension, he is a mis-lqymyue-zxyuerrcm diabetic. He has known dyslipidemia. He has had no known previous CVA or TIA. He has no known hepatic dysfunction he does have mild renal insufficiency with a baseline creatinine of about 1.3. He was not a user of tobacco. He is undergone prior appendectomy. He does have a family history of atherosclerotic disease in that his father followingan [place] at 48 years of age. 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 On examination he is a blood pressure 150/80, his heart rates in the 70s at sinus by palpation. His HEENT examination is unremarkable, there is no scleral icterus. There are murmurs transmitted to the neck bilaterally. He has a harsh 4/6 systolic murmur at the right upper parasternal border which radiates into his neck. His chest is clear to auscultation. His lower extremities are free of edema. There are no gross varicosities or neurological deficits. In summary Mr. Tobar has severe, symptomatic aortic stenosis. I think he would benefit from aortic valve replacement therapy. I think he represents a low risk surgical candidate, and coupled withhis otherwise excellent health he may be better served with an open SAVR. The next step in the work-up will be for cardiac cath which has been booked for 03 June. Once we have that data point theheart team will meet and render a final opinion as to the appropriate approach. In the interim thank you very much for allowing us to participate in his care and should you require anything further please do not hesitate to contact my office. Best personal regards, Chun Wiley MD [phone] In aggregate 45 minutes were spent evaluating this patient, reviewing all images, counseling/examining the patient and communicating with other involved physicians. documented in this encounter Plan of Treatment Upcoming Encounters Date Type Department Care Team (Late st Contact Info) Description 08/27/2024 2:30 PM EST Office [place] [address] Susanna Cm APRN [facility] [place] [address] documented as of this encounter Visit Diagnoses Diagnosis Aortic stenosis, severe Aortic valve disorders documented in this encounter Care Teams Creel Hand Relationship Specialty Start Date End Date Ramiro Ball MD [address] [place] [id number] PCP - General 06/06/10 02/17/24 documented as of this encounter
--- OUTSIDE RECORDS SUMMARY | 2024-03-26 15:55 | XMS_ITS | Encounter Summary ---
Author Organization [facility] [place] [address] Care Team Providers Care Pmo Project Manager Name Role Phone Ramiro Ball MD Primary Care Provider Reason for Referral * Diagnostic Test (Routine) - Closed Specialty Diagnoses / Procedures Referred By Luca beltran Referred To Contact Radiology Diagnoses Aortic stenosis, severe Procedures CT Angiogram Abdomen & Pelvis w Contrast (Generic) [facility] [address] [place] [address] [facility] [place] [address] Referral ID Status Reason Start Date Expiration Date V isits Requested Visits Authorized [id number] Closed Specialty Service Requested 05/21/2020 11/17/2020 1 1 * Diagnostic Test (Routine) - Closed Specialty Diagnoses / Procedures Referred By Contac t Referred To Contact Radiology Diagnoses Aortic stenosis, severe Procedures CT Cardiac for Morphology & Function [facility] [address] [place] [address] [facility] [place] [address] Referral ID Status Reason Start Date Expiration Date V isits Requested Visits Authorized [id number] Closed Specialty Service Requested 05/26/2020 11/19/2020 1 1 Encounter Details Date Type Department Care Team (Late st Contact Info) Description 04/14/2020 Orders Only Cardiology at [address] [address] Yossi Schmitz, RN Aortic stenosis, severe Social History Tobacco Use Types Packs/Day Years Used Date Smoking Tobacco: Never Assessed Sex and Gender Information Value Date Recorded Sex Assigned at Not on file Gender Identity Not on file Sexual Orientation Not on file documented as of this encounter Progress Notes * Yossi Schmitz RN - 04/14/2020 11:54 AM EDT Mr. Tobar is referred by Joseph Lackey MD for consideration of treatment options for severe, symptomatic, aortic stenosis; please refer to notes in scanned documents for detailed history and assessment. 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 His history includes the following: ; MS; ASCVD s/p PCI 1997; HTN;DVD and HLD. Echo 03/11/2020: EF 65%; TOBI 0.8; pV 5.0; mean Gr 57; PASP 35-45; Trivial AI/MR Labs: Hgb 13.3; Hct 39.5; Cr 1.1 STS: 0.84 Plan: Patient is aware of referral and is interested in proceeding with the evaluation. Schedule SDM clinic, diagnostics, frailty evaluation and cardiac cath. documented in this encounter Plan of Treatment Upcoming Encounters Date Type Department Care Team (Late st Contact Info) Description 08/27/2024 2:30 PM EST [place] [phone] Susanna Cm APRN [facility] [place] [address] documented as of this encounter Results * EKG 12 Lead (05/26/2020 2:30 PM EST) Ventricular rate 73 BPM MUSE SYSTEM Atrial Rate 73 BPM MUSE SYSTEM P-R Interval 124 ms MUSE SYSTEM QRS Duration 78 ms MUSE SYSTEM Q-T Interval 372 ms MUSE SYSTEM QTC Calculated (Bezet) 409 ms MUSE SYSTEM Calculated P Sims 32 degrees MUSE SYSTEM Calculated R Sims -10 degrees MUSE SYSTEM Calculated T Sims -57 degrees MUSE SYSTEM INTERPRETATION Normal sinus rhythm Possible Left atrial enlargement Left ventricular hypertrophy with repolarization abnormality Possible Inferior infarct , age undetermined Abnormal ECG When compared with ECG of 03-DEC-1997 07:21, ST now depressed in Inferior leads ST now depressed in Lateral leads T wave inversion more evident in Inferior leads T wave inversion now evident in Lateral leads Confirmed by MD Sushant, Darius ([id number]) on 05/26/2020 4:03:09 PM MUSE SYSTEM 05/26/2020 2:30 PM EST 05/26/2020 4:03 PM EST Jim Castelan MD ECG ORDERABLES MUSE SYSTEM * XR Chest PA & Lateral (Generic) (05/26/2020 11:28 AM EST) Anatomical Region Laterality Modality Chest N/A Digital Radiogra phy Impressions 05/26/2020 11:43 AM EST No active cardiopulmonary pathology identified. Thank you for letting us participate in the care of this patient. For questions regarding this report, please contact the number below. ? Narrative 05/26/2020 11:43 AM EST EXAMINATION: XR CHEST PA AND LATERAL (GENERIC) CLINICAL HISTORY: TAVR screening TECHNIQUE: PA and lateral views of the chest. COMPARISON: None. FINDINGS: The lungs appear clear. The cardiomediastinal silhouette, shelly, pulmonary vessels, and pleura are within normal limits. Aortic valve and mitral annular calcification is visible on the lateral projection. No significant osseous findings are seen. Procedure Note Djea Haley MD - 05/26/2020 EXAMINATION: XR CHEST PA AND LATERAL (GENERIC) CLINICAL HISTORY: TAVR screening TECHNIQUE: PA and lateral views of the chest. COMPARISON: None. FINDINGS: The lungs appear clear. The cardiomediastinal silhouette,shelly, pulmonary vessels, and pleura are within normal limits. Aortic valve andmitral annular calcification is visible on the lateral projection. Nosignificant osseous findings are seen. IMPRESSION No active cardiopulmonary pathology identified. Thank you for letting us participate in the care of this patient. Forquestions regarding this report, please contact the number below. Jim Castelan MD IMG DX ORDERABLES * CT Angiogram Abdomen & Pelvis w [...] the number below. ? Electronically signed by: Deja Haley MD, [facility] ([phone]), at 05/26/2020 4:48 PM Narrative 05/26/2020 4:[address] [...] ERICA Anterior oblique angulation: 21 Craniocaudal plane: FELT HOOKER Craniocaudal angulation: 25 Ylhijoy-ge-shhlrrlh height: Imaging phase: 75% Right: 12.9 mm [...] ERICA Anterior oblique angulation: 21 Craniocaudal plane: FELT HOOKER Craniocaudal angulation: 25 Qdauwql-sy-jdninldo height: Imaging phase: 75% Right: 12.9 mm [...] Jim Castelan MD IMG CT ORDERABLES * (ABNORMAL) Comprehensive metabolic panel (non-fasting) (05/26/2020 9:11 AM EST) Glucose 275(H) 65 - 199 mg/dL [facility] Comment:Diabetes: >=200 mg/d L plus symptoms Blood Urea Nitrogen 17 10 - 20 mg/dL [facility] Creatinine 1.27 0.80 - 1.50 mg/dL [facility] Sodium 137 135 - 145 mmol/L [facility] Potassium 5.0 3.5 - 5.0 mmol/L [facility] Comment: Please note: ??Patients with WBC >100,000 may have falsely elevated Potassium levels. ??For accurate Potassium quantification in these patients send serum separator tube (gold top) for subsequent determinations. ??Contact the Clinical Chemistry Laboratory if there are any questions. Chloride 102 98 - 107 mmol/L [facility] Carbon Dioxide 22 22 - 31 mmol/L [facility] Anion Gap 13 5 - 15 mmol/L [facility] Calcium 10.2 8.5 - 10.5 mg/dL [facility] Protein, Total 8.0 6.1 - 8.0 gm/dL [facility] Albumin 4.8 3.2 - 5.2 gm/dL [facility] Aspartate Aminotransferase 24 0 - 39 unit/L [facility] Alanine Aminotransferase 20 0 - 55 unit/L [facility] Alkaline Phosphatase 60 40 - 130 unit/L [facility] Bilirubin, Total 0.4 0.2 - 1.3 mg/dL [facility] Est Glomerular Filtration Rate 57(L) >=60 mL/min/1. 73 m?? [facility] Comment: The eGFR was calculated using the CKD-EPI equation. As with all creatinine based estimates of kidney function, eGFR values calculated with the CKD-EPI equation are not accurate in patients with acute kidney failure, extremes of body mass or the acutely ill. http://[employer]/DHMCnkf eGFR 66 >=60 mL/min/1. 73 m?? [facility] Comment: The eGFR was calculated using the CKD-EPI equation. As with all creatinine based estimates of kidney function, eGFR values calculated with the CKD-EPI equation are not accurate in patients with acute kidney failure, extremes of body mass or the acutely ill. http://[employer]/DHMCnkf Blood specimen (specimen) 05/26/2020 9:11 AM EST 05/26/2020 9:18 AM EST Narrative Resulting Agency Comment Spec In Lab Jim Castelan MD CHEMISTRY ORDERABLES [facility] [place] [address] documented in this encounter Visit Diagnoses Diagnosis Aortic stenosis, severe Aortic valve disorders Aortic stenosis, severe Aortic valve disorders Aortic stenosis, severe Aortic valve disorders documented in this encounter Care Teams Pmo Project Manager Relationship Specialty Start Date End Date Ramiro Ball MD [address] [place] [address] PCP - General 06/06/10 02/17/24 documented as of this encounter
--- OUTSIDE RECORDS SUMMARY | 2024-03-26 15:55 | XMS_ITS | Encounter Summary ---
Author Organization [facility] [place] [address] Care Team Providers Care Link Fabric Machine Operator Name Role Phone Ramiro Ball MD Primary Care Provider [phone] Encounter Details Date Type Department Care Team (Late st Contact Info) Description 05/09/2020 [place] [address] Ivon Gracia PA [facility] [place] [address] Aortic valve stenosis, etiology of cardiac valve disease unspecified Social History Tobacco Use Types Packs/Day Years [...] 2:30 PM EST [place] [address] Susanna Cm APRN [facility] [place] [address] documented as of this encounter Visit Diagnoses Diagnosis Aortic valve stenosis, etiology of cardiac valve disease unspecified documented in this encounter Care Teams Link Fabric Machine Operator Relationship Specialty Start Date End Date Ramiro Ball MD [address] [address] PCP - General 06/06/10 02/17/24 documented as of this encounter
--- OUTSIDE RECORDS SUMMARY | 2024-03-26 15:55 | XMS_ITS | Encounter Summary ---
Author Organization [facility] Juan Miguel [facility] [place] [address] Care Team Providers Care Auto Porter Name Role Phone Ramiro Ball MD Primary Care Provider + [phone] Reason for Visit * Reason Comments Coronary Artery Disease Encounter Details Date Type Department Care Team (Late st Contact Info) Description 04/15/2012 9:15 AM EDT Office Visit [address] [address] Carl Grant MD [facility] [place] [address] CAD (coronary artery disease) (Primary Dx) Social History Tobacco Use Types Packs/Day Years Used Date Smoking Tobacco: Never Assessed Sex and Gender Information Value Date Recorded Sex Assigned at Not on file Gender Identity Not on file Sexual Orientation Not on file documented as of this encounter Progress Notes * Uma Benitez - 04/18/2012 10:19 AM EDT * Carl Grant - 04/15/2012 10:59 AM EDT Subjective: Patient ID: Johnson Tobar is a 61 y.o. male. HPI ROS Objective: Physical Exam Assessment and Plan: No problem-specific visit notes found for this encounter. Scanned note documented in this encounter Plan of Treatment Upcoming Encounters Date Type Department Care Team (Late st Contact Info) Description 08/27/2024 2:30 PM EST [place] [address] Susanna Cm, ACCOUNTS PAYABLE MANAGER [facility] [place] [address] documented as of this encounter Visit Diagnoses Diagnosis CAD (coronary artery disease)- Primary Coronary atherosclerosis of unspecified type of vessel, [place] or graft documented in this encounter Care Teams Auto Porter Relationship Specialty Start Date End Date Ramiro Ball MD [address] [place] [id number] PCP - General 06/06/10 02/17/24 documented as of this encounter
--- OUTSIDE RECORDS SUMMARY | 2024-03-26 15:55 | XMS_ITS | Encounter Summary ---
Author Organization [facility] [place] [address] Care Team Providers Care Sheet Rock Layer Name Role Phone Ramiro Ball MD Primary Care Provider [phone] Encounter Details Date Type Department Care Team (Late st Contact Info) Description 05/26/2020 2:20 PM EST Office Visit Cardiology at [address] [phone] Aortic stenosis, severe Social History Tobacco Use Types Packs/Day Years Used Date Smoking Tobacco: Never Smokeless Tobacco: Never Sex and Gender Information Value Date Recorded Sex Assigned at Not on file Gender Identity Not on file Sexual Orientation Not on file documented as of this encounter Last Filed Vital Signs Vital Sign Reading Time Taken Comments Blood Pressure 151/83 05/26/2020 2:18 PM EST Pulse 78 05/26/2020 2:18 PM EST Temperature - - Respiratory Rate 20 05/26/2020 2:18 PM EST Oxygen Saturation 100% 05/26/2020 2:18 PM EST Inhaled Oxygen Concentration - - Weight 79.5 kg (175 lb 3.2 oz) 05/26/2020 2:18 P M EST Height 170.2 cm (5' 7) 05/26/2020 2:18 PM EST Body Mass Index 27.44 05/26/2020 2:18 PM EST documented in this encounter Progress Notes * Mary Beth Will, CCMA - 05/26/2020 2:20 PM EST Vital signs EKG KCCQ 5mwt documented in this encounter Plan of Treatment Upcoming Encounters Date Type Department Care Team (Late st Contact Info) Description 08/27/2024 2:30 PM EST Office Visit Neurology at [facility] [place] [address] Susanna Cm APRN [facility] [place] [address] documented as of this encounter Procedures Procedure Name Priority Date/Time Associated Diagnosis Comments EKG 12-LEAD Routine 05/26/2020 2:30 PM EST Aortic stenosis, severe documented in this encounter Results * EKG 12 Lead (05/26/2020 2:30 PM EST) Ventricular rate 73 BPM MUSE SYSTEM Atrial Rate 73 BPM MUSE SYSTEM P-R Interval 124 ms MUSE SYSTEM QRS Duration 78 ms MUSE SYSTEM Q-T Interval 372 ms MUSE SYSTEM QTC Calculated (Bezet) 409 ms MUSE SYSTEM Calculated P [place] 32 degrees MUSE SYSTEM Calculated R [place] -10 degrees MUSE SYSTEM Calculated T [place] -57 degrees MUSE SYSTEM INTERPRETATION Normal sinus [...] disorders documented in this encounter Care Teams Sheet Rock Layer Relationship Specialty Start Date End Date Ramiro Ball MD [address] [place] [id number] PCP - General 06/06/10 02/17/24 documented as of this encounter
--- OUTSIDE RECORDS SUMMARY | 2024-03-26 15:55 | XMS_ITS | Encounter Summary ---
Author Organization [facility] Address [facility] [place] [address] Care Team Providers Care Vice President Of Contracts Name Role Phone Ramiro Ball MD Primary Care Provider [phone] Encounter Details Date Type Department Care Team (Latest Contact Info) Description 05/26/2020 11:15 AM EST - 05/26/2020 11:59 PM [facility] Hospital Encounter XRay at [address] [place] [address] Jim Castelan MD [facility] [place] [address] Aortic stenosis, severe Discharge Disposition: Home Social [...] 2:30 PM EST Office [place] [address] Susanna Cm APRN [facility] [place] [address] documented as of this encounter Procedures Procedure Name Priority Date/Time Associated Diagnosis Comments XR CHEST PA AND LATERAL Routine 05/26/2020 11:28 AM EST Aortic stenosis, severe documented in this encounter Results * XR [...] seen. Procedure Note Deja Haley MD - 05/26/2020 EXAMINATION: XR CHEST [...] below. Jim Castelan MD IMG DX ORDERABLES documented in this encounter Visit Diagnoses Diagnosis Aortic stenosis, severe Aortic valve disorders documented in this encounter Care Teams Vice President Of Contracts Relationship Specialty Start Date End Date Ramiro Ball MD [address] [place] [phone] PCP - General 06/06/10 02/17/24 documented as of this encounter
--- OUTSIDE RECORDS SUMMARY | 2024-03-26 15:55 | XMS_ITS | Encounter Summary ---
Author Organization [facility] [place] [address] Care Team Providers Care Neurology Stroke Physician Name Role Phone Ramiro Ball MD Primary Care Provider + [phone] Reason for Visit * Reason Comments Coronary Artery Disease Encounter Details Date Type Department Care Team (Late st Contact Info) Description 03/02/2011 8:15 AM EDT Office Visit [address] [phone] Carl Grant MD [facility] [place] [address] CAD (coronary artery disease) (Primary Dx) Social History Tobacco Use Types Packs/Day Years Used Date Smoking Tobacco: Never Assessed Sex and Gender Information Value Date Recorded Sex Assigned at Not on file Gender Identity Not on file Sexual Orientation Not on file documented as of this encounter Progress Notes * Uma Benitez - 03/09/2011 11:10 AM EDT * Carl Grant - 03/02/2011 8:33 AM EDT Scanned note [facility] documented in this encounter Plan of Treatment Upcoming Encounters Date Type Department Care Team (Late st Contact Info) Description 08/27/2024 2:30 PM EST Office [place] [address] Susanna Cm APRN [facility] [place] [address] documented as of this encounter Visit Diagnoses Diagnosis CAD (coronary artery disease)- Primary Coronary atherosclerosis of unspecified type of vessel, [place] or graft documented in this encounter Care Teams Neurology Stroke Physician Relationship Specialty Start Date End Date Ramiro Ball MD [address] [place] [id number] PCP - General 06/06/10 02/17/24 documented as of this encounter
--- OUTSIDE RECORDS SUMMARY | 2024-03-26 15:55 | XMS_ITS | Encounter Summary ---
Author Organization [facility] [place] [address] Care Team Providers Care Management Technician Name Role Phone Ramiro Ball MD Primary Care Provider [phone] Encounter Details Date Type Department Care Team (Latest Contact Info) Description 05/26/2020 9:15 AM EST Laboratory Appointment Lab [address] [place] [phone] Aortic stenosis, severe Social History Tobacco Use [...] 2:30 PM EST Office [place] [address] Susanna Cm APRN [facility] [place] [address] documented as of this encounter Procedures Procedure Name Priority Date/Time Associated Diagnosis Comments HEMOGRAM Routine 05/26/2020 9:11 AM EST Aortic stenosis, severe DIFFERENTIAL, AUTOMATED Routine 05/26/2020 9:11 AM EST Aortic stenosis, severe CBC,PLT & AUTO DIFF Routine 0 9:11 AM EST Aortic stenosis, severe COMPREHENSIVE METABOLIC PANEL Routine 05/26/2020 9:11 AM EST Aortic stenosis, severe documented in this encounter Results * Differential, Automated (05/26/2020 9:11 AM EST) Neutrophil % 51.6 % [facility] Neutrophil Absolute 3.63 1.70 - 6.10 x10(3)/[facility] LAB[facility] Lymph % 31.3 % [facility] Lymphocytes Abs 2.2 0.9 - 3.2 x10(3)/[facility] LABOR[facility] Monocyte % 12.1 % [facility] Monocyte Abs 0.8 0.3 - 0.9 x10(3)/[facility] LAB[facility] Eos % 3.6 % [facility] Eosinophils Abs 0.2 0.0 - 0.4 x10(3)/[facility] LABOR[facility] Basophil % 1.1 % [facility] Baso Absolute 0.1 0.0 - 0.1 x10(3)/[facility] LABORATORY Immature Gran % 0.30 % [facility] Comment: Immature granulocytes(IG's)percentage and absolute count will include metamyelocytes, myelocytes, and promyelocytes. Blood smears from CBCs yielding IG's will be scanned manually for concordance. If this scan disagrees with the automated IG or if promyelocytes are noted, a manual differential will be performed. Immature Gran Absolute 0.02 0.00 - 0.04 x10(3)/[facility] LABORATORY Blood specimen (specimen) 05/26/2020 9:11 AM EST 05/26/2020 9:18 AM EST Narrative Resulting Agency Comment Spec In Lab Jim Castelan MD HEMATOLOGY ORDERABLE S [facility] [place] [address] * (ABNORMAL) Hemogram (05/26/2020 9:11 AM EST) White Blood Cell 7.0 4.0 - 9.5 x10(3)/[facility] LABORATORY Red Blood Cell 4.76 4.58 - 5.54 x10(6)/ L [facility] Hemoglobin 13.5(L) 13.7 - 16.5 gm/dL [facility] Hematocrit 40.8 40.5 - 48.5 % [facility] Mean Cell Volume 85.7 82.9 - 93.1 fL [facility] Mean Cell Hemoglobin 28.4 27.5 - 32.1 pg [facility] Mean Cell Hemoglobin Concentration 33.1 32.0 - 35.7 gm/dL [facility] Platelet 154 145 - 357 x10(3)/[facility] LABORATORY RDW Standard Deviation 42.1 36.0 - 45.0 [facility]ORY RDW coefficient of variation 13.5 11.4 - 13.8 % [facility] Mean Platelet Volume 12.0 7.6 - 12.9 [facility]ORY NRBC% auto 0.0 % [facility] NRBC Absolute 0.000 0.000 - 0.000 x10(3)/[facility] LABOR[facility] Blood specimen (specimen) 05/26/2020 9:11 AM EST 05/26/2020 9:18 AM EST Narrative Resulting Agency Comment Spec In Lab Jim Castelan MD HEMATOLOGY ORDERABLE S [facility] [place] [address] * (ABNORMAL) Comprehensive metabolic panel (non-fasting) (05/26/2020 [...] of body mass or the acutely ill. [email or web address] eGFR 66 >=60 mL/min/1. 73 m?? [facility] Comment: The eGFR was calculated using the CKD-EPI equation. As with all creatinine based estimates of kidney function, eGFR values calculated with the CKD-EPI equation are not accurate in patients with acute kidney failure, extremes of body mass or the acutely ill. [email or web address] Blood specimen (specimen) 05/26/2020 9:11 AM EST 05/26/2020 9:18 AM EST Narrative Resulting Agency Comment Spec In Lab Jim Castelan MD CHEMISTRY ORDERABLES Performing Organization Address City/State/[facility] Co de Phone Number [facility] [place] [address] documented in this encounter Visit Diagnoses Diagnosis Aortic stenosis, severe Aortic valve disorders documented in this encounter Care Teams Management Technician Relationship Specialty Start Date End Date Ramiro Ball MD [address] [place] [id number] PCP - General 06/06/10 02/17/24 documented as of this encounter
--- OUTSIDE RECORDS SUMMARY | 2024-03-26 15:55 | XMS_ITS | Encounter Summary ---
Author Organization [facility] [place] [address] Care Team Providers Care Supervisor Parking Lot Name Role Phone Ramiro Ball MD Primary Care Provider + [phone] Reason for Visit * Reason Comments Coronary Artery Disease Encounter Details Date Type Department Care Team (Latest Contact Info) Description 04/07/2013 11:45 AM EDT Office Visit [address] [phone] Carl Grant MD [facility] 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) Social History Tobacco Use Types Packs/Day Years Used Date Smoking Tobacco: Never Assessed Sex and Gender Information Value Date Recorded Sex Assigned at Not on file Gender Identity Not on file Sexual Orientation Not on file documented as of this encounter Progress Notes * Carl Grant - 06/22/2013 8:31 AM EST Scanned note documented in this encounter Plan of Treatment Upcoming Encounters Date Type Department Care Team (Late st Contact Info) Description 08/27/2024 2:30 PM EST Office [place] [address] Susanna Cm, PAYROLL PROCESSOR [facility] [place] [address] documented as of this encounter Visit Diagnoses Diagnosis 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
[2024-03-26 19:32] LABS: Abs Immature Grans 0.02 10^3/uL (0.0-0.06); Absolute Basophil Count 0.08 10^3/uL (0.0-0.2); Absolute Eosinophil Count 0.29 10^3/uL (0.0-0.7); Absolute Lymphocyte Count 1.07 10^3/uL (1.2-3.4); Absolute Monocyte Count 0.72 10^3/uL (0.1-0.8); Absolute Neutrophil Count 3.87 10^3/uL (1.2-6.7); Basophils % 1.3 %; Eosinophils % 4.8 %; HCT 32.8 % (40.0-50.0); HGB 10.6 g/dL (13.5-17.5); Immature Grans % 0.3 %; Lymphocytes % 17.7 %; MCH 27.2 pg (27.0-33.0); MCHC 32.3 % (32.0-36.0); MCV 84 fL (80-95); MPV 11.6 fL (8.0-11.0); Monocytes % 11.9 %; Platelet Count 246 10^3/uL (130-400); RBC 3.89 10^6/uL (4.36-5.78); RDW 16.5 % (11.8-14.1); RDW-SD 50.4 fL; WBC 6.05 10^3/uL (4.4-10.8)
[2024-03-26 20:04] LABS: Iron 50 ug/dL (65-175); Total Iron Binding Capacity 400 ug/dL (250-450); Transferrin Sat 13 % (20-55)
[2024-03-26 20:23] LABS: ALT 28 U/L (16-63); AST 28 U/L (15-37); Albumin 3.5 g/dL (3.4-5.0); Alkaline Phosphatase 91 U/L (46-116); Anion Gap 9.6 mmol/L (3-11); BUN 21 mg/dL (7-18); Bilirubin, Total 0.53 mg/dL (0.2-1.0); CO2 25.4 mmol/L (21.0-32.0); CREATININE 1.4 mg/dL (0.70-1.30); Calcium 9.1 mg/dL (8.5-10.1); Chloride 98 mmol/L (98-107); Estimated GFR 52.74 (mL/min/1.73m2); Ferritin 60 ng/mL (26-388); Glucose 121 mg/dL (74-106); Magnesium 1.2 mg/dL (1.8-2.4); Sodium 133 mmol/L (136-145); Vitamin B12 210 pg/mL (193-986)
[2024-03-26 20:24] LABS: Folate > 20.0 ng/mL (8.6-20.0)
== END 2024-03-26 15:45 | disposition home or self-care (01) ==
LOC: NCHCN 15:44
PROVIDERS: PCP Internal Medicine; Visit Provider Physician Assistant
DX: D64.9 Anemia, unspecified (principal); I50.9 Heart failure, unspecified; E83.42 Hypomagnesemia
CPT/HCPCS: 80053; 82607; 82728; 82746; 83540; 83550; 83735; 85025

== ENCOUNTER 2024-04-02 18:21 | Emergency (ER) | payer MEDICARE, SELFPAY ==
[2024-04-02] VITALS (9 sets, daily range): BP systolic 103–136; BP diastolic 50–62; PULSE 60–66; RESP 16–26; TEMP 37.2; O2SAT 95
--- NOTE | 2024-04-02 18:15 | RT.EKG_ITS ---
APPROVED REPORT Exam: Resting ECG Reason for Exam: numbness Patient Location: E HR:64 bpm ECG Measurements Heart Rate 64 AXIS MI 117 P 63 QRSd 84 QRS -15 QT 412 T 9 QTc 416 Conclusion Sinus rhythm 64 no stemi
[2024-04-02 19:45] LABS: Abs Immature Grans 0.02 10^3/uL (0.0-0.06); Absolute Basophil Count 0.07 10^3/uL (0.0-0.2); Absolute Eosinophil Count 0.19 10^3/uL (0.0-0.7); Absolute Lymphocyte Count 1.26 10^3/uL (1.2-3.4); Absolute Neutrophil Count 3.58 10^3/uL (1.2-6.7); Basophils % 1.2 %; Eosinophils % 3.2 %; HCT 31.2 % (40.0-50.0); Immature Grans % 0.3 %; Lymphocytes % 21.3 %; MCHC 32.1 % (32.0-36.0); MCV 84 fL (80-95); MPV 10.7 fL (8.0-11.0); Monocytes % 13.5 %; Neutrophils % 60.5 %; Platelet Count 196 10^3/uL (130-400); RDW 16.4 % (11.8-14.1); RDW-SD 50.4 fL; WBC 5.92 10^3/uL (4.4-10.8)
[2024-04-02 20:07] LABS: ALT 23 U/L (16-63); AST 19 U/L (15-37); Albumin 3.3 g/dL (3.4-5.0); Alkaline Phosphatase 73 U/L (46-116); Anion Gap 8.1 mmol/L (3-11); BUN 24 mg/dL (7-18); Bilirubin, Total 0.32 mg/dL (0.2-1.0); CO2 26.9 mmol/L (21.0-32.0); CREATININE 1.3 mg/dL (0.70-1.30); Calcium 9.4 mg/dL (8.5-10.1); Chloride 99 mmol/L (98-107); Estimated GFR 57.65 (mL/min/1.73m2); Glucose 159 mg/dL (74-106); NT-proBNP 3194 pg/mL (<300); Potassium 3.9 mmol/L (3.5-5.1); Sodium 134 mmol/L (136-145); Total Protein 7.3 g/dL (6.4-8.2); Troponin I 24 ng/L (<or=76)
--- NOTE | 2024-04-02 20:30 | DI.RAD_ITS ---
Exam(s) XR CHEST 1V IN DI DEPT EXAM: XR CHEST 1V IN DI DEPT CLINICAL HISTORY: weakness TECHNIQUE: 2D digital imaging was performed. COMPARISON: No exams were available for comparison FINDINGS: LUNGS: Underlying fibrotic changes. Bilateral patchy densities in the upper lobes. Findings could r epresent scarring versus infiltrates or mass. Minimal blunting at the right costophrenic angle. Fin dings may be chronic. HEART: Enlarged. Aortic valve prosthesis. AORTA: Normal diameter. BONES: Spine mostly obscured. Sternal wires. Soft tissues: Unremarkable. IMPRESSION: Bilateral upper lobe infiltrates superimposed on chronic interstitial changes. Follow-up recommended . DATA REPOSITORY: RADIATION DOSE DELIVERED:
--- NOTE | 2024-04-02 20:30 | DI.CT_ITS ---
Exam(s) CT HEAD WO EXAM: CT HEAD WO CLINICAL HISTORY: cva 5 wks ago, left sided paresthesias ( r infarct. TECHNIQUE: Imaging Protocol: Axial computed tomography images with coronal and sagittal reformatted images were created and reviewed COMPARISON: No exams were available for comparison FINDINGS: Ventricles and Extra axial spaces: Normal in size and morphology for the patient's age. Hemorrhage: None. Cerebral parenchyma: No evidence of acute infarct or mass. Small area of old infarct in the right p osterior inferior temporal lobe. Midline shift: None. Brainstem/Cerebellum: Normal. Calvarium: Normal. Visualized Paranasal sinuses:Clear. Mastoids: Clear. Soft Tissues: Unremarkable. ORBITS: Unremarkable. PITUITARY: Not enlarged. 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 No acute intracranial process. RADIATION DOSE DELIVERED: 826.85mGy.cm Total DLP DATA REPOSITORY: All CT scans at this facility are submitted to the National Radiology Data Registry (NRDR) Dose Index Registry (DIR) with the [employer] (ACR). RADIATION OPTIMIZATION: All CT scans at this facility use at least one of these dose optimization te chniques: automated exposure control; mA and/or kV adjustment per patient size (includes targeted exa ms where dose is matched to clinical indication); or iterative reconstruction.
--- OUTSIDE RECORDS SUMMARY | 2024-04-02 21:07 | XMS_ITS | Continuity of Care Document ---
Author Organization [facility] Address Unknown Care Team Providers Care Pony Ride Attendant Name Role Phone Tamia Tsai Primary Care Physician Encounter [facility] Date(s): 03/02/24 - 03/06/24 [facility] [address] [place] [address]- Encounter Diagnosis Cerebral infarction due to embolism of right posterior cerebral artery(Final) - Hypo-osmolality and hyponatremia(Final) - Postprocedural cerebrovascular infarction following cardiac surgery(Final) - Hemiplegia, unspecified affecting left nondominant side(Final) - Slurred speech(Final) - Essential (primary) hypertension(Final) - Other surgical procedures as the cause of abnormal reaction of the patient, or of later complication, without mention of misadventure at the time of the procedure(Final) - Diagnostic and monitoring cardiovascular devices associated with adverse incidents(Final) - NIHSS score 7(Final) - Presence of aortocoronary bypass graft(Final) - Type 2 diabetes mellitus without complications(Final) - Personal history of peptic ulcer disease(Final) - Atherosclerotic heart disease of [place] coronary artery without angina pectoris (Final) - Hyperlipidemia, unspecified(Final) - FDC (current) use of oral hypoglycemic drugs(Final) - Anemia, unspecified(Final) - Constipation, unspecified(Final) - Retention of urine, unspecified(Final) - Non-ST elevation IA (NSTEMI)(Discharge Diagnosis) - 03/02/24 Hyponatremia(Discharge Diagnosis) - 03/02/24 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 RN reported pt had uneventful night. pt found up in chair in room alert, pleasant and oriented x4. VSS assessment benign, took am medications without issue, denies pain. pt requesting to go home after team, pt has been informed we recommend pt stay, verbalized understanding and has been informed supervision at all times has been recommended at this time. Discharge instructions gone over with pt including; medication schedule, purpose and dosing, prescriptions for new medications faxed to preferred pharmacy, pt and verbalized understanding. Safety and physical restrictions gone over, pt understands the importance of safety, including supervision and the use of ambulation aid while up and ambulating, pt and had no questions. Referrals and prescription for PT/ OT placed in blue book, blue book gone over, personal belongings returned to pt. 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 ?#Cardiovascular: CAD HTN HLD AVR ?Continue ASA norvasc statin metoprolol entresto. ?BP 100-120 well controlled ?#DM2?Continue CCD diet, ISS ?at , started lantus 5 which has been stopped ?restarted metformin and glipizide (home meds). Started metformin 500 bid increased to 1000 bid; restarted glipizide 5 ?BGs 110-170 currently ?resume increased dose glipizide 10 next 1-2d depending on BGs ?f/u PCP re DM management ?#hyponatremia?Na 129 on admit, had been stable 127-128 last few days. ?continues on NaCl tabs ?next BMP Fri, consider stopping salt tabs at that time if appropriate ?#left foot cellulitis, resolved ?completed keflex 500 qid while at ?#anemia?Hb stable 10, 9.6 on admit, stable ?#GI prophylaxis ?proton pump inhibitor ? #chronic urinary frequency ? given chronicity and normal PVRs, may have overactive bladder, try oxybutynin ?#dispo ?home after 1 week LOS, with home health as needed ?f/u PCP neuro cardiology ?Medication prescribed despite medication allergy noted in patient's medical record. ?YES - started oxybutynin ? Extracted from: Title:SOAP Note: Rehab Note Author:Jeanette Rao Date:03/04/24 Health Status Allergies: Nonallergic Reactions (All) Severe Lisinopril- No reactions were documented., Allergies (1) Active Severity Reaction lisinopril Severe None Documented Medications Current medications: (Selected) Inpatient Medications Ordered Colace: 100 mg = 1 cap(s), Oral, BID Dulcolax Laxative: 10 mg = 1 supp, Rectal, Daily, PRN: Constipation Humalog (Lispro) Sliding Scale Medium Dose Algorithm: Medium Dose Scale, Subcutaneous, QIDACHS Lovenox: 40 mg = 0.4 mL, Subcutaneous, HS MiraLax: 17 gm = 1 packet(s), Oral, Daily, PRN: Constipation Norvasc: 5 mg = 1 tab(s), Oral, BID Plavix: 75 mg = 1 tab(s), Oral, Daily Protonix: 40 mg = 1 tab(s), Oral, Daily Sodium Chloride 1g Tab: 1 gm = 1 tab(s), Oral, TID Zetia: 10 mg = 1 tab(s), Oral, Daily acetaminophen: 650 mg = 2 tab(s), Oral, q4hr, PRN: Pain aspirin: 81 mg = 1 tab(s), Oral, Daily atorvastatin: 80 mg = 1 tab(s), Oral, HS bacitracin zinc 500 units/g topical ointment: 1 lizet, Topical, q8hr, PRN: Other (see comment) glipiZIDE: 5 mg = 1 tab(s), Oral, Daily glucagon: 1 mg = 1 vial(s), Intramuscular, Daily, PRN: Blood Glucose glucose 40% oral gel: 37.5 gm = 1 EA, Oral, q30min, PRN: Low blood sugar metFORMIN: 1,000 mg = 2 tab(s), Oral, BIDWM metoprolol: 100 mg = 2 tab(s), Oral, BID sacubitril-valsartan 24-26 mg Tab: 1 EA, Oral, BID senna: 17.2 mg = 2 tab(s), Oral, HS Documented Medications Documented Aspirin 81 mg Chewable: 1 tab(s), Oral, Daily, 0 Refill(s) Entresto 24 mg-26 mg oral tablet: 1 tab(s), Oral, BID, 0 Refill(s) Jardiance 25 mg oral tablet: 0 Refill(s) Norvasc 5 mg oral tablet: 5 mg = 1 tab(s), Oral, BID, 0 Refill(s) Ozempic 2 mg/1.5 mL (0.25 mg or 0.5 mg dose) subcutaneous solution: 0.5 mg, Subcutaneous, qWeek, 0 Refill(s) Plavix 75 mg oral tablet: 75 mg = 1 tab(s), Oral, Daily, 0 Refill(s) Zetia 10 mg oral tablet: 10 mg = 1 tab(s), Oral, Daily, 0 Refill(s) amoxicillin-clavulanate 1000 mg-62.5 mg oral tablet, extended release: 2 tab(s), Oral, dental procedures, 0 Refill(s) metFORMIN 1000 mg oral tablet: 1,000 mg = 1 tab(s), Oral, BID, 0 Refill(s) metoprolol tartrate 100 mg oral tablet: 100 mg = 1 tab(s), Oral, BID, 0 Refill(s) multivitamin: 1 tab(s), Oral, Daily, 0 Refill(s) omeprazole 20 mg oral delayed release tablet: 20 mg = 1 tab(s), Oral, Daily, 0 Refill(s) rosuvastatin 40 mg oral tablet: 40 mg = 1 tab(s), Oral, HS, 0 Refill(s), Medications (21) Active Scheduled: (15) amLODIPine 5 mg Tab [[facility]] 5 mg 1 tab(s), Oral, BID aspirin 81 mg Chew Tab [[facility]] 81 mg 1 tab(s), Oral, Daily atorvastatin 80 mg Tab [[facility]] 80 mg 1 tab(s), Oral, HS clopidogrel 75 mg Tab [[facility]] 75 mg 1 tab(s), Oral, Daily docusate sodium 100 mg Cap [[facility]] 100 mg 1 cap(s), Oral, BID enoxaparin 40 mg/0.4 mL SC Dilma [[facility]] 40 mg 0.4 mL, Subcutaneous, HS ezetimibe 10 mg Tab [[facility]] 10 mg 1 tab(s), Oral, Daily glipiZIDE 5 mg ER Tab [[facility]] 5 mg 1 tab(s), Oral, Daily insulin lispro (HumaLOG) 100 units/mL SubQ PEN [[facility]] Medium Dose Scale, Subcutaneous, QIDACHS metFORMIN 500 mg Tab [[facility]] 1,000 mg 2 tab(s), Oral, BIDWM metoprolol 50 mg Tab [[facility]] 100 mg 2 tab(s), Oral, BID pantoprazole 40 mg Oral EC Tab [[facility]] 40 mg 1 tab(s), Oral, Daily sacubitril-valsartan 24-26 mg Tab 1 EA, Oral, BID senna 8.6 mg Tab [[facility]] 17.2 mg 2 tab(s), Oral, HS sodium chloride 1 g Tab [[facility]] 1 gm 1 tab(s), Oral, TID Continuous: (0) PRN: (6) acetaminophen 325 mg Tab [[facility]] 650 mg 2 tab(s), Oral, q4hr bacitracin zinc 500 units/g Top Oint UD [[facility]] 1 lizet, Topical, q8hr bisacodyl 10 mg Supp [[facility]] 10 mg 1 supp, Rectal, Daily glucagon recombinant 1 mg Inj [[facility]] 1 mg 1 vial(s), Intramuscular, Daily glucose 40% oral gel ([facility]] 37.5 gm 1 EA, Oral, q30min polyethylene glycol 3350 Oral Pwdr Recon [[facility]] 17 gm 1 packet(s), Oral, Daily . Problem list: All Problems CAD (coronary artery disease) / 5864930036 / Confirmed GERD (gastroesophageal reflux disease) / [id number] / Confirmed S/P AVR / [id number] / Confirmed Hx of CABG / [id number] / Confirmed HLD (hyperlipidemia) / 54448003 / Confirmed HTN (hypertension) / 8736427706 / Confirmed PUD (peptic ulcer disease) / 52492201 / Confirmed DM2 (diabetes mellitus, type 2) / 466596965 / Confirmed, Active Problems (8) CAD (coronary artery disease) DM2 (diabetes mellitus, type 2) GERD (gastroesophageal reflux disease) HLD (hyperlipidemia) HTN (hypertension) Hx of CABG PUD (peptic ulcer disease) S/P AVR Impression and Plan #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 #Cardiovascular: CAD HTN HLD AVR Continue ASA norvasc statin metoprolol entresto. BP 100-120 well controlled #DM2 Continue CCD diet, ISS at , started lantus 5 which has been stopped restarted metformin and glipizide (home meds). Started metformin 500 bid increased to 1000 bid; restarted glipizide 5 BGs 110-170 currently resume increased dose glipizide 10 next 1-2d depending on BGs f/u PCP re DM management #hyponatremia Na 129 on admit, had been stable 127-128 last few days. continues on NaCl tabs next BMP Sat, consider stopping salt tabs at that time if appropriate #left foot cellulitis, resolved completed keflex 500 qid while at #anemia Hb stable 10, 9.6 on admit, stable #GI prophylaxis proton pump inhibitor #dispo home after 1 week LOS, with home health as needed f/u PCP neuro cardiology Medication prescribed despite medication allergy noted in patient's medical record. NO 35 min total time spent on chart review, discussion with team, face to face eval Extracted from: Title:SOAP Note: Rehab Note Author:Jeanette Rao Date:03/03/24 Health Status Allergies: Nonallergic Reactions (All) Severe Lisinopril- No reactions were documented., Allergies (1) Active Severity Reaction lisinopril Severe None Documented Medications Current medications: (Selected) Inpatient Medications Ordered Colace: 100 mg = 1 cap(s), Oral, BID Dulcolax Laxative: 10 mg = 1 supp, Rectal, Daily, PRN: Constipation Humalog (Lispro) Sliding Scale Medium Dose Algorithm: Medium Dose Scale, Subcutaneous, QIDACHS Lovenox: 40 mg = 0.4 mL, Subcutaneous, HS MiraLax: 17 gm = 1 packet(s), Oral, Daily, PRN: Constipation Norvasc: 5 mg = 1 tab(s), Oral, BID Plavix: 75 mg = 1 tab(s), Oral, Daily Protonix: 40 mg = 1 tab(s), Oral, Daily Sodium Chloride 1g Tab: 1 gm = 1 tab(s), Oral, TID Zetia: 10 mg = 1 tab(s), Oral, Daily acetaminophen: 650 mg = 2 tab(s), Oral, q4hr, PRN: Pain aspirin: 81 mg = 1 tab(s), Oral, Daily atorvastatin: 80 mg = 1 tab(s), Oral, HS bacitracin zinc 500 units/g topical ointment: 1 lizet, Topical, q8hr, PRN: Other (see comment) glipiZIDE: 5 mg = 1 tab(s), Oral, Daily glucagon: 1 mg = 1 vial(s), Intramuscular, Daily, PRN: Blood Glucose glucose 40% oral gel: 37.5 gm = 1 EA, Oral, q30min, PRN: Low blood sugar metFORMIN: 500 mg = 1 tab(s), Oral, BIDWM metoprolol: 100 mg = 2 tab(s), Oral, BID sacubitril-valsartan 24-26 mg Tab: 1 EA, Oral, BID senna: 17.2 mg = 2 tab(s), Oral, HS Documented Medications Documented Aspirin 81 mg Chewable: 1 tab(s), Oral, Daily, 0 Refill(s) Entresto 24 mg-26 mg oral tablet: 1 tab(s), Oral, BID, 0 Refill(s) Jardiance 25 mg oral tablet: 0 Refill(s) Norvasc 5 mg oral tablet: 5 mg = 1 tab(s), Oral, BID, 0 Refill(s) Ozempic 2 mg/1.5 mL (0.25 mg or 0.5 mg dose) subcutaneous solution: 0.5 mg, Subcutaneous, qWeek, 0 Refill(s) Plavix 75 mg oral tablet: 75 mg = 1 tab(s), Oral, Daily, 0 Refill(s) Zetia 10 mg oral tablet: 10 mg = 1 tab(s), Oral, Daily, 0 Refill(s) amoxicillin-clavulanate 1000 mg-62.5 mg oral tablet, extended release: 2 tab(s), Oral, dental procedures, 0 Refill(s) metFORMIN 1000 mg oral tablet: 1,000 mg = 1 tab(s), Oral, BID, 0 Refill(s) metoprolol tartrate 100 mg oral tablet: 100 mg = 1 tab(s), Oral, BID, 0 Refill(s) multivitamin: 1 tab(s), Oral, Daily, 0 Refill(s) omeprazole 20 mg oral delayed release tablet: 20 mg = 1 tab(s), Oral, Daily, 0 Refill(s) rosuvastatin 40 mg oral tablet: 40 mg = 1 tab(s), Oral, HS, 0 Refill(s), Medications (21) Active Scheduled: (15) amLODIPine 5 mg Tab [[facility]] 5 mg 1 tab(s), Oral, BID aspirin 81 mg Chew Tab [[facility]] 81 mg 1 tab(s), Oral, Daily atorvastatin 80 mg Tab [[facility]] 80 mg 1 tab(s), Oral, HS clopidogrel 75 mg Tab [[facility]] 75 mg 1 tab(s), Oral, Daily docusate sodium 100 mg Cap [[facility]] 100 mg 1 cap(s), Oral, BID enoxaparin 40 mg/0.4 mL SC Dilma [[facility]] 40 mg 0.4 mL, Subcutaneous, HS ezetimibe 10 mg Tab [[facility]] 10 mg 1 tab(s), Oral, Daily glipiZIDE 5 mg ER Tab [[facility]] 5 mg 1 tab(s), Oral, Daily insulin lispro (HumaLOG) 100 units/mL SubQ PEN [[facility]] Medium Dose Scale, Subcutaneous, QIDACHS metFORMIN 500 mg Tab [[facility]] 500 mg 1 tab(s), Oral, BIDWM metoprolol 50 mg Tab [[facility]] 100 mg 2 tab(s), Oral, BID pantoprazole 40 mg Oral EC Tab [[facility]] 40 mg 1 tab(s), Oral, Daily sacubitril-valsartan 24-26 mg Tab 1 EA, Oral, BID senna 8.6 mg Tab [[facility]] 17.2 mg 2 tab(s), Oral, HS sodium chloride 1 g Tab [[facility]] 1 gm 1 tab(s), Oral, TID Continuous: (0) PRN: (6) acetaminophen 325 mg Tab [[facility]] 650 mg 2 tab(s), Oral, q4hr bacitracin zinc 500 units/g Top Oint UD [[facility]] 1 lizet, Topical, q8hr bisacodyl 10 mg Supp [[facility]] 10 mg 1 supp, Rectal, Daily glucagon recombinant 1 mg Inj [[facility]] 1 mg 1 vial(s), Intramuscular, Daily glucose 40% [facility] gel [facility] 37.5 gm 1 EA, Oral, q30min polyethylene glycol 3350 Oral Pwdr Recon [[facility]] 17 gm 1 packet(s), Oral, Daily . Problem list: All Problems CAD (coronary artery disease) / [id number] / Confirmed GERD (gastroesophageal reflux disease) / [id number] / Confirmed S/P AVR / [id number] / Confirmed Hx of CABG / [id number] / Confirmed HLD (hyperlipidemia) / 92332947 / Confirmed HTN (hypertension) / 9500072700 / Confirmed PUD (peptic ulcer disease) / 31388449 / Confirmed DM2 (diabetes mellitus, type 2) / 853911055 / Confirmed, Active Problems (8) CAD (coronary artery disease) DM2 (diabetes mellitus, type 2) GERD (gastroesophageal reflux disease) HLD (hyperlipidemia) HTN (hypertension) Hx of CABG PUD (peptic ulcer disease) S/P AVR Impression and Plan #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 #Cardiovascular: CAD HTN HLD AVR Continue ASA norvasc statin metoprolol entresto. #DM2 Continue CCD diet, ISS restart metformin and glipizide per home. Started metformin 500 bid increased to 1000 bid today; restart glipizide 5 will plan to increase 10 10 tomorrow as needed at , started lantus 5 which was stopped f/u PCP re DM management #hyponatremia Na 129 on admit, had been stable 127-128 last few days. #left foot cellulitis completed keflex 500 qid. #anemia Hb stable 10, 9.6 on admit, stable #GI prophylaxis proton pump inhibitor #dispo home after 1 week LOS, with home health as needed f/u PCP neuro cardiology Medication prescribed despite medication allergy noted in patient's medical record. YES increased metformin Did the facility complete prescribed/recommended actions in response to the identified potentially clinically significant medication issues by midnight of the next calendar day? YES 35 min total time spent on chart review, discussion with team, face to face eval Extracted from: Title:Admission RN Author:Eboni Pastor Date: Pt arrive via private vehicl e with spouse at 1400. Pt is alert and oriented able to make needs known. Patient and answered admission questions. Pt is able to ambulate with one assist to bathroom. Stable vital signs. Falls teaching/ call blanco demonstration provided. Pt's belongings and medications documented. Pt was oriented to room and unit routine. Extracted from: Title:General Rehab Admission H&P * stroke Autho r:Jeanette Rao MD Date:03/02/24 History of Present Illness Mr Tobar is a 73 yo man with h/o DM2, CABG, HTN, HLD, GERD, PUD, AVR who was [place] [facility] [place] after presenting with CP concerning for ACS, NSTEMI and elevated troponins. He was taken to laboratory worker which showed patent MCKEON however high grade lesion of left circumflex. No intervention done. Following the procedure, in the recovery room, noted to have slurred speech and left hemiparesis concerning for stroke. 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 Pt received TPA and thrombolytics. TTE showed EF 55%, with severely dilated LA. Stroke felt to be secondary to atheroembolism from procedure. NIHSS improved 14->7. The patient worked with PT OT and FRUIT TESTER throughout their stay however given residual deficits requiring CGA to min assist for mobility and ADLs due to left weakness, it was felt beneficial to transfer to an acute rehabilitation level of care for intensive PT OT and FRUIT TESTER with the goal of optimizing function and eventual return home. Review of Systems Constitutional: Negative. Pain assessment: Self-reports no pain. Eye: No blurring, No double vision. Ear/Nose/Mouth/Throat: No dysphagia. Respiratory: No shortness of breath, No cough, No wheezing, No sputum production. Cardiovascular: No chest pain, No palpitations, No bradycardia, No tachycardia, No leg swelling. Gastrointestinal: Constipation, No nausea, No vomiting, No diarrhea, No abdominal pain. Genitourinary: No dysuria, No urinary frequency, No urinary incontinence. Hematology/Lymphatics: Anemia. Endocrine: No hyperglycemia. Musculoskeletal: No back pain, No joint pain, No muscle pain, No joint swelling. Integumentary: No rash, No breakdown, No skin lesion. Neurologic: Weakness, No confusion, No numbness, No tingling, No dizziness, No memory loss, No speech problems. Psychiatric: No anxiety, No depression, No sleeping problems. Health Status Allergies: No allergies have been recorded., No qualifying data available Medications Current medications: (Selected) Inpatient Medications Ordered Colace: 100 mg = 1 cap(s), Oral, BID Dulcolax Laxative: 10 mg = 1 supp, Rectal, Daily, PRN: Constipation Humalog (Lispro) Sliding Scale Medium Dose Algorithm: Medium Dose Scale, Subcutaneous, QIDACHS Jardiance: 25 mg, Oral, Daily Lantus: 5 unit(s) = 0.05 mL, Subcutaneous, HS Lovenox: 40 mg = 0.4 mL, Subcutaneous, HS MiraLax: 17 gm = 1 packet(s), Oral, Daily, PRN: Constipation Norvasc: 5 mg = 1 tab(s), Oral, BID Plavix: 75 mg = 1 tab(s), Oral, Daily Protonix: 40 mg = 1 tab(s), Oral, Daily Sodium Chloride 1g Tab: 1 gm = 1 tab(s), Oral, TID Zetia: 10 mg = 1 tab(s), Oral, Daily acetaminophen: 650 mg = 2 tab(s), Oral, q4hr, PRN: Pain aspirin: 81 mg, Oral, Daily bacitracin zinc 500 units/g topical ointment: 1 lizet, Topical, q8hr, PRN: Other (see comment) entresto: 24-26, Oral, BID glipiZIDE: 10 mg = 2 tab(s), Oral, Daily glucagon: 1 mg = 1 vial(s), Intramuscular, Daily, PRN: Blood Glucose glucose 40% oral gel: 37.5 gm = 1 EA, Oral, q30min, PRN: Low blood sugar metFORMIN: 1,000 mg = 2 tab(s), Oral, BID metoprolol: 100 mg = 2 tab(s), Oral, BID omeprazole: 20 mg = 1 tab(s), Oral, Daily rosuvastatin: 40 mg = 1 tab(s), Oral, HS senna: 17.2 mg = 2 tab(s), Oral, HS Documented Medications Documented Aspirin 81 mg Chewable: 1 tab(s), Oral, Daily, 0 Refill(s) Entresto 24 mg-26 mg oral tablet: 1 tab(s), Oral, BID, 0 Refill(s) Jardiance 25 mg oral tablet: 0 Refill(s) Norvasc 5 mg oral tablet: 5 mg = 1 tab(s), Oral, BID, 0 Refill(s) Ozempic 2 mg/1.5 mL (0.25 mg or 0.5 mg dose) subcutaneous solution: 0.5 mg, Subcutaneous, qWeek, 0 Refill(s) Plavix 75 mg oral tablet: 75 mg = 1 tab(s), Oral, Daily, 0 Refill(s) amoxicillin-clavulanate 1000 mg-62.5 mg oral tablet, extended release: 2 tab(s), Oral, dental procedures, 0 Refill(s) glipiZIDE 10 mg oral tablet, extended release: 10 mg = 1 tab(s), Oral, Daily, 0 Refill(s) metFORMIN 1000 mg oral tablet: 1,000 mg = 1 tab(s), Oral, BID, 0 Refill(s) metoprolol tartrate 100 mg oral tablet: 100 mg = 1 tab(s), Oral, BID, 0 Refill(s) multivitamin: 1 tab(s), Oral, Daily, 0 Refill(s) omeprazole 20 mg oral delayed release tablet: 20 mg = 1 tab(s), Oral, Daily, 0 Refill(s) rosuvastatin 40 mg oral tablet: 40 mg = 1 tab(s), Oral, HS, 0 Refill(s), Medications (24) Active Scheduled: (18) amLODIPine 5 mg Tab [[facility]] 5 mg 1 tab(s), Oral, BID aspirin 81 mg, Oral, Daily clopidogrel 75 mg Tab [[facility]] 75 mg 1 tab(s), Oral, Daily docusate sodium 100 mg Cap [[facility]] 100 mg 1 cap(s), Oral, BID empagliflozin 25 mg, Oral, Daily enoxaparin 40 mg/0.4 mL SC Dilma [[facility]] 40 mg 0.4 mL, Subcutaneous, HS ezetimibe 10 mg Tab [[facility]] 10 mg 1 tab(s), Oral, Daily glipiZIDE 5 mg ER Tab [[facility]] 10 mg 2 tab(s), Oral, Daily insulin glargine 100 units/mL SubQ [[facility]] 5 unit(s) 0.05 mL, Subcutaneous, HS insulin lispro (HumaLOG) 100 units/mL SubQ PEN [[facility]] Medium Dose Scale, Subcutaneous, QIDACHS metFORMIN 500 mg Tab [[facility]] 1,000 mg 2 tab(s), Oral, BID metoprolol 50 mg Tab [[facility]] 100 mg 2 tab(s), Oral, BID Non-Formulary 24-26, Oral, BID omeprazole 20 mg 1 tab(s), Oral, Daily pantoprazole 40 mg Oral EC Tab [[facility]] 40 mg 1 tab(s), Oral, Daily rosuvastatin 40 mg 1 tab(s), Oral, HS senna 8.6 mg Tab [[facility]] 17.2 mg 2 tab(s), Oral, HS sodium chloride 1 g Tab [[facility]] 1 gm 1 tab(s), Oral, TID Continuous: (0) PRN: (6) acetaminophen 325 mg Tab [[facility]] 650 mg 2 tab(s), Oral, q4hr bacitracin zinc 500 units/g Top Oint UD [[facility]] 1 lizet, Topical, q8hr bisacodyl 10 mg Supp [[facility]] 10 mg 1 supp, Rectal, Daily glucagon recombinant 1 mg Inj [[facility]] 1 mg 1 vial(s), Intramuscular, Daily glucose 40% oral gel ([facility]] 37.5 gm 1 EA, Oral, q30min polyethylene glycol 3350 Oral Pwdr Recon [[facility]] 17 gm 1 packet(s), Oral, Daily . Medications (24) Active Scheduled: (18) amLODIPine 5 mg Tab [[facility]] 5 mg 1 tab(s), Oral, BID aspirin 81 mg, Oral, Daily clopidogrel 75 mg Tab [[facility]] 75 mg 1 tab(s), Oral, Daily docusate sodium 100 mg Cap [[facility]] 100 mg 1 cap(s), Oral, BID empagliflozin 25 mg, Oral, Daily enoxaparin 40 mg/0.4 mL SC Dilma [[facility]] 40 mg 0.4 mL, Subcutaneous, HS ezetimibe 10 mg Tab [[facility]] 10 mg 1 tab(s), Oral, Daily glipiZIDE 5 mg ER Tab [[facility]] 10 mg 2 tab(s), Oral, Daily insulin glargine 100 units/mL SubQ [[facility]] 5 unit(s) 0.05 mL, Subcutaneous, HS insulin lispro (HumaLOG) 100 units/mL SubQ PEN [[facility]] Medium Dose Scale, Subcutaneous, QIDACHS metFORMIN 500 mg Tab [[facility]] 1,000 mg 2 tab(s), Oral, BID metoprolol 50 mg Tab [[facility]] 100 mg 2 tab(s), Oral, BID Non-Formulary 24-26, Oral, BID omeprazole 20 mg 1 tab(s), Oral, Daily pantoprazole 40 mg Oral EC Tab [[facility]] 40 mg 1 tab(s), Oral, Daily rosuvastatin 40 mg 1 tab(s), Oral, HS senna 8.6 mg Tab [[facility]] 17.2 mg 2 tab(s), Oral, HS sodium chloride 1 g Tab [[facility]] 1 gm 1 tab(s), Oral, TID Continuous: (0) PRN: (6) acetaminophen 325 mg Tab [[facility]] 650 mg 2 tab(s), Oral, q4hr bacitracin zinc 500 units/g Top Oint UD [[facility]] 1 lizet, Topical, q8hr bisacodyl 10 mg Supp [[facility]] 10 mg 1 supp, Rectal, Daily glucagon recombinant 1 mg Inj [[facility]] 1 mg 1 vial(s), Intramuscular, Daily glucose 40% oral gel ([facility]] 37.5 gm 1 EA, Oral, q30min polyethylene glycol 3350 Oral Pwdr Recon [[facility]] 17 gm 1 packet(s), Oral, Daily . Problem list: All Problems CAD (coronary artery disease) / 6971264225 / Confirmed GERD (gastroesophageal reflux disease) / [id number] / Confirmed S/P AVR / [id number] / Confirmed Hx of CABG / [id number] / Confirmed HLD (hyperlipidemia) / 56701272 / Confirmed HTN (hypertension) / [id number] / Confirmed PUD (peptic ulcer disease) / [id number] / Confirmed DM2 (diabetes mellitus, type 2) / [id number] / Confirmed, Active Problems (8) CAD (coronary artery disease) DM2 (diabetes mellitus, type 2) GERD (gastroesophageal reflux disease) HLD (hyperlipidemia) HTN (hypertension) Hx of CABG PUD (peptic ulcer disease) S/P AVR Physical Examination VS/Measurements Vital Signs (last 24 hrs) Last Charted Weight 77.7 kg (MAR 02 13:00) , Measurements from flowsheet : Measurements 03/02/2024 13:00 EDT Weight 77.7 kg Weight Dosing 77.700 kg General: Alert and oriented, No acute distress. Eye: Extraocular movements are intact, Normal conjunctiva. Respiratory: Lungs are clear to auscultation, Respirations are non-labored. Cardiovascular: Normal rate, Regular rhythm. Gastrointestinal: Soft, Non-tender, Non-distended, Normal bowel sounds. Integumentary: Intact, No rash. Mental status/ Cognition Alert. Oriented x 3. Speech and language intact. Cognition intact. Sensorimotor/ Reflexes Normal sensation. strength 5/5 except LUE +pronator drift. Psychiatric: Cooperative, Appropriate mood & affect. 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 Impairments: Hemiparesis, Fatigue, Speech/ language. General: Decreased strength, Decreased endurance, Decreased balance. Disabilities: Decreased: Mobility, Ability to transfer self, Ability to ambulate, Ability to dress self, Ability to feed self, Ability to bathe self, Ability to toilet self, Ability to self-care, Communication abilities, Problem-solving abilities, Safety. Limiting factors: Medical complexity. Nursing goals: Nutrition/diet: Maintain optimal caloric intake, Tolerate regular diet. Medication monitor for treatment: Effects, Adverse reactions. Bladder: Continent, Regulated with program. Bowel: Continent, Regulated with program. Skin: Promote wound healing, Prevent breakdown. Pain/Sleep: Regulate sleep cycle, Decrease pain level. Occupational therapy goals: Setup/ supervision, Equipment/DME assessment. Physical therapy goals: Setup/ supervision, Equipment/DME assessment, Home assessment. Speech Therapy goals: Setup/ supervision, Dysphagia assessment, Cognitive assessment, Language assessment. Therapeutic Recreation Goals: Leisure skills assessment, Improve social interaction with peers. Patient/Family Goals: Return to home independent, Return to home with assistance. Potential for improvement to meet goals: Good. Patient/Family Educational Needs: ADL assistance, Bowel/bladder program, Disease process education, Medication education, Safety awareness, Transfers. Estimated length of stay: 1 weeks. Disposition: Home. Code Status: Full code. Medical Plan DVT prophylaxis: low molecular weight heparin, anti-embolus stockings. Skin: pressure relief, positioning, edema management. Respiratory: pulmonary hygiene incentive spirometry. Cardiovascular: CAD HTN HLD AVR Continue ASA norvasc statin metoprolol entresto. Endocrine: DM2 Continue CCD diet, metformin and glipizide per home. Also started lantus 5 which I will try to taper off, and also on ISS hyponatremia - Na 127, stable 127-128 last few days. Infectious Disease: left foot cellulitis - completed keflex 500 qid. Hematology: anemia - Hb stable 10, recheck CBC in am. GI: prophylaxis proton pump inhibitors, Constipation (laxative, stool softener). : retention (post void residual, voiding program). Nutrition: diabetic. Fluids/ Electrolytes: encourage po foods and fluids. Pain: managed with acetaminophen. #[facility] medication review: Did a complete drug regimen review identify potential clinically significant medication issues? - YES ? Issues found during review; zetia and protonix listed as new meds but are home meds; pt has been receiving lantus which is not listed on discharge med list Did the facility complete prescribed/recommended actions in response to the identified potential clinically significant medication issues by midnight of the next calendar day? - YES . #CMS High-Risk Drug Classes Is patient taking any medications in the following pharmacological classifications: Antipsychotic, Anticoagulant, Antibiotic, Opioid, Antiplatelet, Hypoglycemic (including insulin)? YES - Antiplatelet, Hypoglycemic (including insulin) Is there an indication noted for all medications in the drug classes noted above? ? ? YES, indication noted . Rehab Impairment Categories Impairment category/ codes table I & II Stroke: 01.1 Left body involvement (right brain). Post Admission Physician Evaluation: Documentation Reviewed: I have reviewed the Preadmission Screen. Functional status documented at preadmission: I agree with the patient's current functional status as documented in the preadmission screening. Risk for complications: I agree with the risk for clinical complications documented in the preadmission screening. Medical conditions: The patient's medical conditions can be managed in the rehab hospital, The plan of treatment is documented above in the history and physical. Patient participation in therapy: The patient can participate in, and will benefit from an intense therapy program at least 3 hours per day / 5 days per week. Therapies/services include:, Physical therapy, Occupational therapy, Speech language pathology, Rehabilitation Nursing, Case Management, Therapeutic Recreation, Nanotechnologist. Functional Status 03/06/24 History of Fall in Last 3 Months Taylor N o Mobility Lorenzo Slightly limited 03/02/24 Recent Travel History Unable to obtain Family Member Travel History Unable to o btain COVID-19 Screening None Medications acetaminophen 325 mg oral tablet 650 mg = 2 tab(s), Oral, q4hr, PRN PRN Pain, 0 Refill(s) Start Date: 03/06/24 Status: Ordered amoxicillin-clavulanate 1000 mg-62.5 mg oral tablet, extended release 2 tab(s), Oral, dental procedures, 0 Refill(s) Start Date: 03/02/24 Status: Ordered Aspirin 81 mg Chewable = 1 tab(s), Oral, Daily, 0 Refill(s) Start Date: 03/02/24 Status: Ordered Atorvastatin 80mg tablet 80 mg = 1 tab(s), Oral, HS, # 30 tab(s), 0 Refill(s), Pharmacy: [id number], 1 tab(s) OralHS, 170.2, cm, 03/02/24 14:37:00 EDT, Height, 77.7, kg, 03/02/24 13:54:00 EDT, Weight Dosing Start Date: 03/06/24 Status: Ordered Colace 100 mg oral capsule c, Oral, BID, PRN PRN Constipation, 0 Refill(s) Start Date: 03/06/24 Status: Ordered Entresto 24 mg-26 mg oral tablet = 1 tab(s), Oral, BID, 0 Refill(s) Start Date: 03/02/24 Status: Ordered glipiZIDE 10 mg oral tablet, extended release 10 mg = 1 tab(s), Oral, Daily, 0 Refill(s) Start Date: 03/06/24 Status: Ordered Humalog (Lispro) Sliding Scale Medium Dose Algorithm Medium Dose Scale, Injection-Insulin, Subcutaneous, Start date: 03/06/24 11:45:00 AM EDT, 03/02/24 14:39:00 EDT Start Date: 03/06/24 Stop Date: 03/06/24 Status: Completed Jardiance 25 mg oral tablet 0 Refill(s) Start Date: 03/02/24 Status: Ordered metFORMIN 1000 mg oral tablet 1,000 mg = 1 tab(s), Oral, BID, 0 Refill(s) Start Date: 03/02/24 Status: Ordered metoprolol tartrate 100 mg oral tablet 100 mg = 1 tab(s), Oral, BID, 0 Refill(s) Start Date: 03/02/24 Status: Ordered multivitamin = 1 tab(s), Oral, Daily, 0 Refill(s) Start Date: 03/02/24 Status: Ordered Norvasc 5 mg oral tablet 5 mg = 1 tab(s), Oral, BID, 0 Refill(s) Start Date: 03/02/24 Status: Ordered oxybutynin 5 mg oral tablet 5 mg = 1 tab(s), Oral, BID, # 60 tab(s), 0 Refill(s), Pharmacy: [facility], 1 tab(s) OralBID, 170.2, cm, 03/02/24 14:37:00 EDT, Height, 77.7, kg, 03/02/24 13:54:00 EDT, Weight Dosing Start Date: 03/06/24 Status: Ordered Plavix 75 mg oral tablet 75 mg = 1 tab(s), Oral, Daily, 0 Refill(s) Start Date: 03/02/24 Status: Ordered Protonix 40 mg oral delayed release tablet 40 mg = 1 tab(s), Oral, Daily, # 30 tab(s), 0 Refill(s), Pharmacy: [facility], 1 tab(s) Oral Daily, 170.2, cm, 03/02/24 14:37:00 EDT, Height, 77.7, kg, 03/02/24 13:54:00 EDT, Weight Dosing Start Date: 03/06/24 Status: Ordered Protonix 40 mg oral delayed release tablet 40 mg = 1 tab(s), Oral, Daily, # 30 tab(s), 0 Refill(s), Pharmacy: [facility], 1 tab(s) Oral Daily, 170.2, cm, 03/02/24 14:37:00 EDT, Height, 77.7, kg, 03/02/24 13:54:00 EDT, Weight Dosing Start Date: 03/06/24 Status: Ordered senna 8.6 mg oral tablet 17.2 mg = 2 tab(s), Oral, HS, PRN PRN Constipation, 0 Refill(s) Start Date: 03/06/24 Status: Ordered sodium chloride 1 g oral tablet 1 gm = 1 tab(s), Oral, BID, # 60 tab(s), 0 Refill(s), Pharmacy: [facility], 1 tab(s) OralBID, 170.2, cm, 03/02/24 14:37:00 EDT, Height, 77.7, kg, 03/02/24 13:54:00 EDT, Weight Dosing Start Date: 03/06/24 Status: Ordered Zetia 10 mg oral tablet 10 mg = 1 tab(s), Oral, Daily, 0 Refill(s) Start Date: 03/02/24 Status: Ordered Mental Status 03/06/24 Sensory Perception Lorenzo Slightly limit ed Level of Consciousness Alert Problem List Condition Confirmation Course Effective Dates Status Health St atus Informant CAD (coronary artery disease) Confirmed Active GERD (gastroesophageal reflux disease) Confirmed Active S/P AVR Confirmed Active Hx of CABG Confirmed Active HLD (hyperlipidemia) Confirmed Active HTN (hypertension) Confirmed Active PUD (peptic ulcer disease) Confirmed Active DM2 (diabetes mellitus, type 2) Confirmed Active Results Laboratory List Name Date Blood Glucose Monitoring POC 03/06/24 Basic Metabolic Panel DH (BMP DH) 4 Blood Glucose Monitoring POC 03/05/24 Glucose POC1 03/03/24 Glucose POC1 03/03/24 Glucose POC1 03/03/24 .Hemogram DH (CBC DH) 03/03/24 Basic Metabolic Panel DH 03/03/24 Most recent to oldest [Reference Range]: 1 2 3 Anion Gap DH [5-15 mmol/L] 14 mmol/L (03/06/24:26 AM) 12 mmol/L (03/03/24 5:00 AM) Chloride Lvl DH [98-107 mmol/L] 97 mmol/L *LOW* (03/06/24 6:26 AM) 97 mmol/L *LOW* (03/03/24 5:00 AM) CO2 DH [22-31 mmol/L] 21 mmol/L *LOW* (03/06/24 6:26 AM) 20 mmol/L *LOW* (03/03/24 5:00 AM) Est GFR DH [>=60 mL/min/1.73 m2] 82 mL/min/1.73 m2 1 (03/06/24 6:26 AM) 91 mL/min/1.73 m2 2 (03/03/24 5:00 AM) Glucose Lvl DH [65-99 mg/dL] 118 mg/dL *HI* (03/06/24 6:26 AM) 147 mg/dL *HI* (03/03/24 5:00 AM) NRBC% auto DH [0-0 %] 0 % (03/03/24 5:00 AM) NRBC Absolute DH 0 *NA* (03/03/24 5:00 AM) Potassium Lvl DH [3.5-5.0 mmol/L] 4.3 mmol/L (03/06/24 6:26 AM) 4.4 mmol/L (03/03/24 5:00 AM) Sodium Lvl DH [135-145 mmol/L] 132 mmol/L *LOW* (03/06/24 6:26 AM) 129 mmol/L *LOW* (03/03/24 5:00 AM) BUN DH [10-20 mg/dL] 10 mg/dL (03/06/24 6:26 AM) 14 mg/dL (03/03/24 5:00 AM) Calcium Lvl DH [8.5-10.5 mg/dL] 9.3 mg/dL (03/06/24 6:26 AM) 8.8 mg/dL (03/03/24 5:00 AM) Creatinine [0.80-1.50 mg/dL] .97 mg/dL (03/06/24 6:26 AM) .85 mg/dL (03/03/24 5:00 AM) Creatinine 0.96 mg/dL (03/02/24 5:58 AM) Fasting >= 8hrs? DH No *NA* (03/06/24 6:26 AM) No *NA* (03/03/24 5:00 AM) Glucose POC [65-99 mg/dL] 114 mg/dL *HI* (03/03/24 8:08 PM) 175 mg/dL *HI* (03/03/24 5:17 PM) 152 mg/dL *HI* (03/03/24 7:06 AM) Hct DH [40.5-48.5 %] 28.3 % *LOW* (03/03/24 5:00 AM) Hgb DH [13.7-16.5 g/dL] 9.6 g/dL *LOW* (03/03/24 5:00 AM) MCHC DH [32.0-35.7 g/dL] 33.9 g/dL (03/03/24 5:00 AM) MCH DH [27.5-32.1 pg] 27.4 pg *LOW* (03/03/24 5:00 AM) MCV DH [82.9-93.1 fL] 80.6 fL *LOW* (03/03/24 5:00 AM) MPV DH [7.6-12.9 fL] 10.5 fL (03/03/24 5:00 AM) Platelet DH [145-357 x10(3)/mcL] 272 x10(3)/mcL (03/03/24 5:00 AM) RBC DH [4.58-5.54 x10(6)/mcL] 3.51 x10(6)/mcL *LOW* (03/03/24 5:00 AM) RDWCV DH [11.4-13.8 %] 15.3 % *HI* (03/03/24 5:00 AM) RDWSD DH [36.0-45.0 fL] 45.0 fL (03/03/24 5:00 AM) WBC DH [4.0-9.5 x10(3)/mcL] 5.9 x10(3)/m cL (03/03/24 5:00 AM) Blood Glucose, Capillary POC [65-99 mg/dL] 231 mg/dL *HI* (03/06/24 12:33 PM) 231 mg/dL *HI* (03/06/24 11:40 AM) 185 mg/dL *HI* (03/06/24 7:47 AM) 1Result Comment: This patient's estimated GFR was calculated using the 2020 CKD- EPI equation. The estimated GFR can vary from [...] mass and symptoms in addition to eGFR. 2Result Comment: This patient's estimated GFR was calculated using the 2020 CKD- EPI equation. The estimated GFR can vary from [...] mass and symptoms in addition to eGFR. Vital Signs Most recent to oldest [Reference Range]: 1 2 3 Temperature Oral [35.8-37.3 DegC] 37.2 DegC (03/06/24 7:45 AM) 36.6 DegC (03/05/24 9:00 PM) 36.5 DegC (03/05/24 9:32 AM) Temperature Oral (DegF) 98.96 DegF (03/06/24 7:45 AM) 97.88 DegF (03/05/24 9:00 PM) 97.7 DegF (03/05/24 9:32 AM) Peripheral Pulse Rate [60-100 bpm] 101 bpm *HI* (03/06/24 7:45 AM) 102 bpm *HI* (03/06/24 6:00 AM) 82 bpm (03/05/24 9:00 PM) Respiratory Rate [14-20 br/min] 16 br/min (03/05/24 9:00 PM) 16 br/min (03/05/24 9:32 AM) 18 br/min (03/04/24 8:00 PM) Blood Pressure [90-140/60-90 mmHg] 107/60mmHg (03/06/24 7:45 AM) 137/67mmHg (03/06/24 6:00 AM) Systolic Blood Pressure [90-140 mmHg] 100 mmHg (03/05/24 10:46 PM) Diastolic Blood Pressure [60-90 mmHg] 42 mmHg *LOW* (03/05/24 10:46 PM) Mean Arterial Pressure, Cuff [70-110 mmHg] 76 mmHg (03/06/24 7:45 AM) 64 mmHg *LOW* (03/05/24 9:00 PM) 81 mmHg (03/05/24 9:32 AM) BP Site Left arm (03/05/24 9:32 AM) Right arm (03/04/24 7:15 AM) Right arm (03/03/24 8:00 PM) SpO2 [92-100 %] 97 % (03/06/24 7:45 AM) 95 % (03/05/24 9:00 PM) 97 % (03/05/24:32 AM) SpO2 Location Right hand (03/04/24 8:00 PM) Right hand (03/03/24 8:00 PM) Right hand (03/03/24 7:00 AM) BP Method Automatic (03/04/24 7:15 AM) Automatic (03/03/24 8:00 PM) Automatic (03/03/24 1:00 AM) Height 170.2 cm (03/02/24 2:37 PM) 170.2 cm (02/23/24 8:40 PM) Weight 77.7 kg (03/02/24 2:37 PM) 77.7 kg (03/02/24 1:00 PM) Weight Dosing 77.700 kg (03/02/24 1:00 PM) Body Mass Index 26.82 kg/m2 (03/02/24 2:37 PM) Social History Social History Type Response Tobacco Never tobacco user T obacco Use:. Sex Hospital Discharge Instructions Patient Education 03/06/2024 13:30:48 Hospitalist Services Upon Discharge ([facility]) (Custom) Services Upon Discharge Patient is being discharged home with these services in place: HOME SERVICES: Home Services Discharge - Arrangements and orders for follow-up care Service Provider: Natalie SCHROEDER Contact Service(s) to be Provided: Physical Therapy, Occupational Therapy Frequency: 2 x per week per service Additional Comments: They report the start of care will be Saturday03/09/24. If you have any questions or concerns please call the number above. Date of the face to face encounter: 03/06/24 This visit was related to stroke for which the patient needs skilled home health services.?? My clinical findings support the need for skilled: Occupational Therapy- 2x weekly for independence with ADLs Physical Therapy- 2x weekly for strengthening, endurance, balance and functional independence. The patient is homebound and requires considerable and taxing effort to leave their residence secondary to impaired mobility and ADLs after stroke To all home service providers, please contact the patient???s Primary Care Provider - Dr. Tamia Tsai - with all follow up regarding your services. Reviewed and Electronically Signed By: Jeanette Rao MD Date: 03/06/24 03/06/2024 13:20:01 Cardiac Rehabilitation Cardiac Rehabilitation What is cardiac rehabilitation? Cardiac rehabilitation is a treatment program that helps improve the health and well-being of people who have heart problems. Cardiac rehabilitation includes exercise training, education, and counseling to help you get stronger and return to an active lifestyle. This program can help you get betterfaster, lessen any future hospital stays, and improve your quality of life. Why might I need cardiac rehabilitation? Cardiac rehabilitation programs can help when you have or have had: ??? A heart attack. ??? Heart failure. ??? Peripheral artery disease. ??? Coronary artery disease. ??? Angina. ??? Lung or breathing problems. Cardiac rehabilitation programs are also used when you have had: ??? Coronary artery bypass graft surgery. ??? Heart valve replacement. ??? Heart stent placement. ??? Heart transplant. ??? Aneurysm repair. What are the benefits of cardiac rehabilitation? Cardiac rehabilitation can help you: ??? Lessen problems like chest pain and trouble breathing. ??? Change risk factors that contribute to heart disease, such as: ??? Smoking. ??? High blood pressure. ??? High cholesterol. ??? Diabetes. ??? Not being physically active. ??? Weighing over 30% more than your ideal weight. ??? Diet. ??? Improve your emotional outlook so you feel: ??? More hopeful. ??? Better about yourself. ??? More confident about taking care of yourself. ??? Less depressed. Cardiac rehabilitation can also help you: ??? Get support from health experts as well as other people with similar challenges. ??? Learn healthy ways to manage stress. ??? Learn how to manage and understand your medicines. ??? Teach your family about your condition and how to participate in your recovery. What is a cardiac rehabilitation team and what do they do? The cardiac rehabilitation team works with you to make a plan based on your health and goals. Your program will be specific to you and your needs and may change as you progress. You may work with a health care team that includes: ??? Doctors. ??? Nurses. ??? Dietitians. ??? Psychologists. ??? Exercise specialists. ??? Physical and occupational therapists. A cardiac rehabilitation team will check your health history and do a physical exam. You may need blood tests, exercise stress tests, and other tests to make sure that you are ready to start cardiac rehabilitation. What are the phases of cardiac rehabilitation? A cardiac rehabilitation program is often split into phases. You move from one phase to the next. Phase 1 This phase starts while you are still in the hospital. You may: ??? Start by walking in your room and then in the holliday. ??? Do simple exercises with a therapist. Phase 2 This phase begins when you go home or to another center. You will travel to a cardiac rehabilitation center or another place where rehabilitation is offered. This phase may last 12???18 weeks and is usually 2???3 days a week. During this phase: ??? You will slowly increase your activity level while being closely watched by a nurse or therapist. ??? You will have medical tests and exams to monitor your progress. ??? Your exercises may include strength or resistance training along with activities that cause your heart to beat faster (aerobic exercises), such as walking on a treadmill. ??? Your condition will determine how often and how long these sessions last. ??? You may learn how to: ??? Cook heart-healthy meals. ??? Control your blood sugar, if this applies. ??? Stop smoking. ??? Manage your medicines. This may include scheduling or planning how and when to take your medicines. If you have questions about your medicines, talk with your health care provider. Phase 3 This phase continues for the rest of your life. In this phase: ??? There will be less supervision. ??? You may continue to do cardiac rehabilitation activities or become part of a group in your community. ??? You may benefit from talking about your experience with other people who have similar challenges. Follow these instructions at home: ??? Take rasw-gqy-auwlvoh and prescription medicines only as told by your health care provider. ??? Keep all follow-up visits. This helps your health care team monitor your progress. Get help right away if: ??? You have severe chest discomfort, especially if the pain is crushing or pressure-like and spreads to your arms, back, neck, or jaw. ??? You have discomfort in the chest, neck, arm, jaw, or back (angina) that lasts for longer than 5minutes and medicine does not help. ??? You have fast or irregular heartbeats (palpitations). ??? You have trouble breathing or shortness of breath. ??? You have sweating that is not caused by exercise. ??? You have nausea or vomiting. ??? You feel tired or weak and do not know why. ??? You have any symptoms of a stroke. BE FAST is an easy way to remember the main warning signs of a stroke: ??? B - Balance. Signs are dizziness, sudden trouble walking, or loss of balance. ??? E - Eyes. Signs are trouble seeing or a sudden change in vision. ??? F - Face. Signs are sudden weakness or numbness of the face, or the face or eyelid drooping on one side. ??? A - Arms. Signs are weakness or numbness in an arm. This happens suddenly and usually on one side of the body. ??? S - Speech. Signs are sudden trouble speaking, slurred speech, or trouble understanding what people say. ??? T - Time. Time to call emergency services. Write down what time symptoms started. ??? You have other signs of a stroke, such as: ??? A sudden, severe headache with no known cause. ??? Seizure. These symptoms may be an emergency. Get help right away. Call 911. ??? Do not wait to see if the symptoms will go away. ??? Do not drive yourself to the hospital. This information is not intended to replace advice given to you by your health care provider. Make sure you discuss any questions you have with your health care provider. Document Revised: 12/03/2022 Document Reviewed: 12/03/2022 [employer] Patient Education ?? 2023 [employer] 03/06/2024 13:18:45 Stroke Prevention, Cdgf-qo-Sois Stroke Prevention Some medical conditions and lifestyle choices can lead to a higher risk for a stroke. You can help to prevent a stroke by eating healthy foods and exercising. It also helps to not smoke and to manageany health problems you may have. How can this condition affect me? A stroke is an emergency. It should be treated right away. A stroke can lead to brain damage or threaten your life. There is a better chance of surviving and getting better after a stroke if you get medical help right away. What can increase my risk? The following medical conditions may increase your risk of a stroke: ??? Diseases of the heart and blood vessels (cardiovascular disease). ??? High blood pressure (hypertension). ??? Diabetes. ??? High cholesterol. ??? Sickle cell disease. ??? Problems with blood clotting. ??? Being very overweight. ??? Sleeping problems (obstructivesleep apnea). Other risk factors include: ??? Being older than age 60. ??? A history of blood clots, stroke, or mini-stroke (TIA). ??? Race, ethnic background, or a family history of stroke. ??? Smoking or using tobacco products. ??? Taking control pills, especially if you smoke. ??? Heavy alcohol and drug use. ??? Not being active. What actions can I take to prevent this? Manage your health conditions ??? High cholesterol. ??? Eat a healthy diet. If this is not enough to manage your cholesterol, you may need to take medicines. ??? Take medicines as told by your doctor. ??? High blood pressure. ??? Try to keep your blood pressure below 130/80. ??? If your blood pressure cannot be managed through a healthy diet and regular exercise, you may need to take medicines. ??? Take medicines as told by your doctor. ??? Ask your doctor if you should check your blood pressure at home. ??? Have your blood pressure checked every year. ??? Diabetes. ??? Eat a healthy diet and get regular exercise. If your blood sugar (glucose) cannot be managed through diet and exercise, you may need to take medicines. ??? Take medicines as told by your doctor. ??? Talk to your doctor about getting checked for sleeping problems. Signs of a problem can include: ??? Snoring a lot. ??? Feeling very tired. ??? Make sure that you manage any other conditions you have. Nutrition ??? Follow instructions from your doctor about what to eat or drink. You may be told to: ??? Eat and drink fewer calories each day. ??? Limit how much salt (sodium) you use to 1,500 milligrams (mg) each day. ??? Use only healthy fats for cooking, such as olive oil, canola oil, and sunflower oil. ??? Eat healthy foods. To do this: ??? Choose foods that are high in fiber. These include whole grains, and fresh fruits and vegetables. ??? Eat at least 5 servings of fruits and vegetables a day. Try to fill one-half of your plate withfruits and vegetables at each meal. ??? Choose low-fat (lean) proteins. These include low-fat cuts of meat, chicken without skin, fish,tofu, beans, and nuts. ??? Eat low-fat dairy products. ??? Avoid foods that: ??? Are high in salt. ??? Have saturated fat. ??? Have trans fat. ??? Have cholesterol. ??? Are processed or pre-made. ??? Count how many carbohydrates you eat and drink each day. Lifestyle ??? If you drink alcohol: ??? Limit how much you have to: ??? 0???1 drink a day for women who are not . ??? 0???2 drinks a day for men. ??? Know how much alcohol is in your drink. In the [place] one drink equals one 12 oz bottle of beer (355mL), one 5 oz glass of wine (148mL), or one 1?? oz glass of hard liquor (44mL). ??? Do not smoke or use any products that have nicotine or tobacco. If you need help quitting, ask your doctor. ??? Avoid secondhand smoke. ??? Do not use drugs. Activity ??? Try to stay at a healthy weight. ??? Get at least 30 minutes of exercise on most days, such as: ??? Fast walking. ??? Biking. ??? Swimming. Medicines ??? Take ptqg-hke-yknlkgg and prescription medicines only as told by your doctor. ??? Avoid taking control pills. Talk to your doctor about the risks of taking control pills if: ??? You are over 35 years old. ??? You smoke. ??? You get very bad headaches. ??? You have had a blood clot. Where to find more information ??? [place] [employer] Association: www.strokeassociation.org Get help right away if: ??? You or a loved one has any signs of a stroke. BE FAST is an easy way to remember the warning signs: ??? B - Balance. Dizziness, sudden trouble walking, or loss of balance. ??? E - Eyes. Trouble seeing or a change in how you see. ??? F - Face. Sudden weakness or loss of feeling of the face. The face or eyelid may droop on one side. ??? A - Arms. Weakness or loss of feeling in an arm. This happens all of a sudden and most often onone side of the body. ??? S - Speech. Sudden trouble speaking, slurred speech, or trouble understanding what people say. ??? T - Time. Time to call emergency services. Write down what time symptoms started. ??? You or a loved one has other signs of a stroke, such as: ??? A sudden, very bad headache with no known cause. ??? Feeling like you may vomit (nausea). ??? Vomiting. ??? A seizure. These symptoms may be an emergency. Get help right away. Call your local emergency services (911 int [place] ??? Do not wait to see if the symptoms will go away. ??? Do not drive yourself to the hospital. Summary ??? You can help to prevent a stroke by eating healthy, exercising, and not smoking. It also helps to manage any health problems you have. ??? Do not smoke or use any products that contain nicotine or tobacco. ??? Get help right away if you or a loved one has any signs of a stroke. This information is not intended to replace advice given to you by your health care provider. Make sure you discuss any questions you have with your health care provider. Document Revised: 06/03/2023 Document Reviewed: 06/03/2023 [employer] Patient Education ?? 2023 [employer] Follow Up Care 03/02/2024 11:11:05 With:[place], [facility] Address: When: Unknown Comments:f/u NSTEMI With:Neurology, [facility] Address: When: Unknown Comments:f/u stroke With:Tamia Tsai Address: [address] [place] [phone] Business (1) When:03/11/2024 15:00:00 Discharge summary * Lisy Echeverria: PERFORM Event Display: Discharge Note Authored Date: [id number] pt and report received from Kaye Bradley. MOISES reported pt had uneventful night. pt found up in chair in room alert, pleasant and oriented x4. VSS assessment benign, took am medications without issue, denies pain. pt requesting to go home after team, pt has been informed we recommend pt stay, verbalized understanding and has been informed supervision at all times has been recommended at this time. Discharge instructions gone over with pt including; medication schedule, purpose and dosing, prescriptions for new medications faxed to preferred pharmacy, pt and verbalized understanding. Safety and physical restrictions gone over, pt understands the importance of safety, including supervision and the use of ambulation aid while up and ambulating, pt and had no questions. Referrals and prescription for PT/ OT placed in blue book, blue book gone over, personal belongingsreturned to pt. literary writer took pt to private car, pt left in stable condition at 230 [Electronically Signed on: 03/06/2024 14:48 EDT] Lisy Echeverria [Verified on: 03/06/2024 14:48 EDT] Lisy Echeverria * Jeanette Rao MD: VERIFY, PERFORM, SIGN Event Display: Discharge Summary Authored Date: [id number] Patient: BURTON TOBAR Age: 73 years Sex: Male : 1950 Associated Diagnoses: None Author: Jeanette Rao MD History of Present Illness Mr Tobar is a 73 yo man with h/o DM2, CABG, HTN, HLD, GERD, PUD, AVR who was admitted at [facility] [place] 03/02 after presenting with CP concerning for ACS, NSTEMI and elevated troponins. 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 No intervention done. Following the procedure, in the recovery room, noted to have slurred speech and left hemiparesis concerning for stroke. 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 Pt received TPA and thrombolytics. TTE showed EF 55%, with severely dilated LA. Stroke felt to be secondary to atheroembolism from procedure. NIHSS improved 14->7. The patient worked with PT OT and FRUIT TESTER throughout their stay however given residual deficits requiring CGA to min assist for mobility and ADLs due to left weakness, it was felt beneficial to transfer to an acute rehabilitation level of care for intensive PT OT and FRUIT TESTER with the goal of optimizing function and eventual return home. Histories Past Medical History: Active HTN (hypertension) (6045149573) PUD (peptic ulcer disease) (99245937) GERD (gastroesophageal reflux disease) (908184656) DM2 (diabetes mellitus, type 2) (917308509) S/P AVR (4849508271) Hx of CABG (3121038070) HLD (hyperlipidemia) (05789133) CAD (coronary artery disease) (5441534752) Procedure history: No active procedure history items have been selected or recorded. Social History Social & Psychosocial History Social History Tobacco Never tobacco user Tobacco Use:. Electronic Cigarette/Vaping Electronic Cigarette Use: Never. Psychosocial History No active psychosocial history has been recorded . Social History Social & Psychosocial History Social History Tobacco Never tobacco user Tobacco Use:. Electronic Cigarette/Vaping Electronic Cigarette Use: Never. Psychosocial History No active psychosocial history has been recorded . Results Review Results review Labs (Last four charted values) WBC 5.9 (MAR 03) Hgb L 9.6 (MAR 03) Hct L 28.3 (MAR 03) Plt 272 (MAR 03) Na L 132 (MAR 06) L 129 (MAR 03) K 4.3 (MAR 06) 4.4 (MAR 03) CO2 L 21 (MAR 06) L 20 (MAR 03) Cl L 97 (MAR 06) L 97 (MAR 03) Cr .97 (MAR 06) .85 (MAR 03) 0.96 (MAR 02) BUN 10 (MAR 06) 14 (MAR 03) Glucose H 118 (MAR 06) H 147 (MAR 03) Ca 9.3 (MAR 06) 8.8 (MAR 03) Health Status Allergies: Nonallergic Reactions (All) Severe Lisinopril- No reactions were documented., Allergies (1) Active Severity Reaction lisinopril Severe None Documented Current medications: Home Medications (19) Active acetaminophen 325 mg oral tablet 650 mg = 2 tab(s), PRN, Oral, q4hr amoxicillin-clavulanate 1000 mg-62.5 mg oral tablet, extended release 2 tab(s), Oral Aspirin 81 mg Chewable 1 tab(s), Oral, Daily Atorvastatin 80mg tablet 80 mg = 1 tab(s), Oral, HS Colace 100 mg oral capsule c, PRN, Oral, BID Entresto 24 mg-26 mg oral tablet 1 tab(s), Oral, BID glipiZIDE 10 mg oral tablet, extended release 10 mg = 1 tab(s), Oral, Daily Jardiance 25 mg oral tablet metFORMIN 1000 mg oral tablet 1,000 mg = 1 tab(s), Oral, BID metoprolol tartrate 100 mg oral tablet 100 mg = 1 tab(s), Oral, BID multivitamin 1 tab(s), Oral, Daily Norvasc 5 mg oral tablet 5 mg = 1 tab(s), Oral, BID oxybutynin 5 mg oral tablet 5 mg = 1 tab(s), Oral, BID Plavix 75 mg oral tablet 75 mg = 1 tab(s), Oral, Daily Protonix 40 mg oral delayed release tablet 40 mg = 1 tab(s), Oral, Daily Protonix 40 mg oral delayed release tablet 40 mg = 1 tab(s), Oral, Daily senna 8.6 mg oral tablet 17.2 mg = 2 tab(s), PRN, Oral, HS sodium chloride 1 g oral tablet 1 gm = 1 tab(s), Oral, BID Zetia 10 mg oral tablet 10 mg = 1 tab(s), Oral, Daily Problem list: All Problems CAD (coronary artery disease) / 9813265418 / Confirmed GERD (gastroesophageal reflux disease) / 014743762 / Confirmed S/P AVR / 5666212219 / Confirmed Hx of CABG / 8921580550 / Confirmed HLD (hyperlipidemia) / 71629074 / Confirmed HTN (hypertension) / 2619445988 / Confirmed PUD (peptic ulcer disease) / 33203970 / Confirmed DM2 (diabetes mellitus, type 2) / 530351207 / Confirmed, Active Problems (8) CAD (coronary artery disease) DM2 (diabetes mellitus, type 2) GERD (gastroesophageal reflux disease) HLD (hyperlipidemia) HTN (hypertension) Hx of CABG PUD (peptic ulcer disease) S/P AVR Health Maintenance Health Maintenance Pending (in the next year) Due Abdominal Aortic Aneursym Screening (if hx of smoking) due 03/06/24 One-time only Adult Wellness Exam due 03/06/24 and every 1 year(s) Annual Wellness Visit (Medicare) due 03/06/24 and every 1 year(s) Colorectal Cancer Screening due 03/06/24 Variable frequency DM - Communication with Managing Provider due 03/06/24 and every 1 year(s) DM - Eye Exam due 03/06/24 Variable frequency DM - Foot Exam due 03/06/24 and every 1 year(s) DM - HgbA1c due 03/06/24 and every 3 month(s) DM - Microalbumin due 03/06/24 and every 1 year(s) Depression Screening due 03/06/24 and every 1 year(s) Glaucoma Screening due 03/06/24 and every 1 year(s) HIV Screening (if sexually active) due 03/06/24 and every 1 year(s) Hepatitis C Screening due 03/06/24 One-time only Initial Preventative Physical Examination (Medicare) due 03/06/24 One-time only Lipid Disorders Screening due 03/06/24 and every 1 year(s) Prostate Cancer Screening due 03/06/24 Variable frequency Sexually Transmitted Infections: Behavioral Counseling due 03/06/24 and every 1 year(s) Syphilis Screening (if sexually active) due 03/06/24 and every 1 year(s) Tobacco Use Screening due 03/06/24 and every 1 year(s) Near Due Influenza Vaccine near due 03/15/24 and every 1 year(s) Due In Future Body Mass Index Check not due until 03/02/25 and every 1 year(s) Alcohol Use Screening not due until 03/02/25 and every 1 year(s) Satisfied (in the past 1 year) Satisfied Alcohol Use Screening on 03/02/24. Satisfied by Eboni Pastor Body Mass Index Check on 03/02/24. Satisfied by Eboni Pastor Fall Risk Screening on 03/06/24. Satisfied by Lisy Echeverria High Blood Pressure Screening on 03/06/24. Satisfied by Lisy Echeverria Type 2 Diabetes Mellitus Screening on 03/06/24. Satisfied by Jayla Cabezas Hospital Course #stroke, right [employer]ALITY [employer]ANCE SUPERVISOR BODY #NSTEMI He worked daily with PT OT: 03/03: PT OT evals today, supervision to CGA on admit 03/04: PT neglect improving, CGA with FWW 03/06: CGA mobility and ADLs, with caregiver training #DVT prophylaxis Continued on low molecular weight heparin. #Cardiovascular: CAD HTN HLD AVR Continued ASA norvasc statin metoprolol entresto. BP 100-120 well controlled #DM2 Continue CCD diet, ISS At , had been started on lantus 5 and pt's oral meds held. Restarted metformin and glipizide (home meds). Started metformin 500 bid increased to 1000 bid; restarted glipizide 5 increased back to 10at time of discharge to home. BGs 110- 170 currently. F/u PCP re DM management #hyponatremia Na 129 on admit, had been stable 127-128 last few days, improved to 132. By discharge, continued Salt tabs bid. Defer further management to PCP. #left foot cellulitis, resolved Completed keflex 500 qid while at #anemia Hb stable 10, 9.6 on admit, stable. #GI prophylaxis Received proton pump inhibitor #chronic urinary frequency Given chronicity and normal PVRs, may have overactive bladder so trialing oxybutynin #dispo He is being discharged to home 03/06 with home health PT OT. Outpatient f/u with PCP neuro cardiology. Physical Examination VS/Measurements Vital Signs (last 24 hrs) Last Charted Temp Oral 37.2 DegC (MAR 06 07:45) Heart Rate Peripheral H 101 bpm (MAR 06 07:45) Resp Rate 16 br/min (MAR 05 21:00) SBP 107 mmHg (MAR 06 07:45) DBP 60 mmHg (MAR 06 07:45) Discharge Plan Instructions to patient Discharge medications: Home Medications (19) Active acetaminophen 325 mg oral tablet 650 mg = 2 tab(s), PRN, Oral, q4hr amoxicillin-clavulanate 1000 mg-62.5 mg oral tablet, extended release 2 tab(s), Oral Aspirin 81 mg Chewable 1 tab(s), Oral, Daily Atorvastatin 80mg tablet 80 mg = 1 tab(s), Oral, HS Colace 100 mg oral capsule c, PRN, Oral, BID Entresto 24 mg-26 mg oral tablet 1 tab(s), Oral, BID glipiZIDE 10 mg oral tablet, extended release 10 mg = 1 tab(s), Oral, Daily Jardiance 25 mg oral tablet metFORMIN 1000 mg oral tablet 1,000 mg = 1 tab(s), Oral, BID metoprolol tartrate 100 mg oral tablet 100 mg = 1 tab(s), Oral, BID multivitamin 1 tab(s), Oral, Daily Norvasc 5 mg oral tablet 5 mg = 1 tab(s), Oral, BID oxybutynin 5 mg oral tablet 5 mg = 1 tab(s), Oral, BID Plavix 75 mg oral tablet 75 mg = 1 tab(s), Oral, Daily Protonix 40 mg oral delayed release tablet 40 mg = 1 tab(s), Oral, Daily Protonix 40 mg oral delayed release tablet 40 mg = 1 tab(s), Oral, Daily senna 8.6 mg oral tablet 17.2 mg = 2 tab(s), PRN, Oral, HS sodium chloride 1 g oral tablet 1 gm = 1 tab(s), Oral, BID Zetia 10 mg oral tablet 10 mg = 1 tab(s), Oral, Daily . #Did the facility contact and complete physician prescribed/recommended actions by midnight of the next calendar day each time potential clinically significant medication issues were identified sincethe admission? YES #CMS High-Risk Drug Classes Is patient taking any medications in the following pharmacological classifications: Antipsychotic, Anticoagulant, Antibiotic, Opioid, Antiplatelet, Hypoglycemic (including insulin)? YES?? - Antiplatelet, Hypoglycemic (including insulin) ??? Is there an indication noted for all medications in the drug classes noted above? YES, indication noted I have personally seen and examined the patient and they are ready for discharge. Discharge Information Discharge Summary Information Admitted 03/02/2024 Discharged 03/06/2024 Diagnosis Principle diagnosis: stroke [Electronically Signed on: 03/06/2024 12:16 EDT] Jeanette Rao MD, MD [Verified on: 03/06/2024 12:16 EDT] Jeanette Rao MD, MD Discharge instructions * Lisy Echeverria: PERFORM Event Display: Discharge Instructions Authored Date: [id number] BURTON TOBAR :1950 Age:73 years Sex:Male Visit Date:03/02/2024 Primary Care Physician: Tamia Tsai Nataliya [facility] Discharge Instructions We would like to thank you for allowing us to assist you with your healthcare needs. The following includes patient education materials and information regarding your injury/illness. Your Next Steps Follow Up Appointments Follow Up with??Cardiology, [facility] Why: f/u NSTEMI Follow Up with??Neurology, [facility] Why: f/u stroke Follow Up with??Tamia Tsai When:??03/11/2024 03:00 PM EDT Where: [address] [place] [phone] Business (1) The Following Services Have Been Arranged for You Special Services and Community Resources - None Medications What How Much When Instructions Next Dose New acetaminophen (acetaminophen 325 mg oral tablet) 2 tab(s) Oral Every 4 hours as needed for Pain New atorvastatin (Atorvastatin 80mg tablet) 1 tab(s) Oral Bedtime Pickup at [facility] New docusate (Colace 100 mg oral capsule) c Oral 2 times per day as needed for Constipation New oxybutynin (oxybutynin 5 mg oral tablet) 1 tab(s) Oral 2 times per day Pickup at [facility] New pantoprazole (Protonix 40 mg oral delayed release tablet) 1 tab(s) Oral Every day Pickup at [facility] New pantoprazole (Protonix 40 mg oral delayed release tablet) 1 tab(s) Oral Every day Pickup at [facility] New senna (senna 8.6 mg oral tablet) 2 tab(s) Oral Bedtime as needed for Constipation New sodium chloride (sodium chloride 1 g oral tablet) 1 tab(s) Oral 2 times per day Pickup at [facility] Changed glipiZIDE (glipiZIDE 10 mg oral tablet, extended release) 1 tab(s) Oral Every day Unchanged amLODIPine (Norvasc 5 mg oral tablet) 1 tab(s) Oral 2 times per day Unchanged amoxicillin-clavulanate (amoxicillin-clavulanate 1000 mg-62.5 mg oral tablet, extended release) 2 tab(s) Oral dental procedures ?? Unchanged aspirin (Aspirin 81 mg Chewable) 1 tab(s) Oral Every day Unchanged clopidogrel (Plavix 75 mg oral tablet) 1 tab(s) Oral Every day Unchanged empagliflozin (Jardiance 25 mg oral tablet) Unchanged ezetimibe (Zetia 10 mg oral tablet) 1 tab(s) Oral Every day Unchanged metFORMIN (metFORMIN 1000 mg oral tablet) 1 tab(s) Oral 2 times per day Unchanged metoprolol (metoprolol tartrate 100 mg oral tablet) 1 tab(s) Oral 2 times per day Unchanged multivitamin 1 tab(s) Oral Every day Unchanged sacubitril-valsartan (Entresto 24 mg-26 mg oral tablet) 1 tab(s) Oral 2 times per day Pharmacy Information [facility]: [address] [place], [place] [id number] [phone] ?? 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 CAD (coronary artery disease) DM2 (diabetes mellitus, type 2) GERD (gastroesophageal reflux disease) HLD (hyperlipidemia) HTN (hypertension) Hx of CABG PUD (peptic ulcer disease) S/P AVR Tests Performed/Pending Basic Metabolic Panel DH Blood Glucose Monitoring POC BMP DH CBC DH Glucose POC1 Discharge Vitals Temperature??(Oral) 99.0 ??F (37.2 ??C) Heart Rate??(Peripheral) 101 Respiratory Rate?? 16 Blood Pressure?? 107/60?? SpO2?? 97% Allergies lisinopril Education Materials ? Services Upon Discharge ? Patient is being discharged home with these services in place: ? HOME SERVICES: ? Home Services Discharge - Arrangements and orders for follow-up care ? Service Provider: Natalie SCHROEDER ? Contact ? Service(s) to be Provided: Physical Therapy, Occupational Therapy ? Frequency: 2 x per week per service ? Additional Comments: They report the start of care will be Saturday03/09/24. If you have any questions or concerns please call the number above. ? Date of the face to face encounter: 03/06/24 This visit was related to stroke for which the patient needs skilled home health services.?? My clinical findings support the need for skilled: ? Occupational Therapy- 2x weekly for independence with ADLs Physical Therapy- 2x weekly for strengthening, endurance, balance and functional independence. ? The patient is homebound and requires considerable and taxing effort to leave their residence secondary to impaired mobility and ADLs after stroke ? To all home service providers, please contact the patient???s Primary Care Provider - Dr. Tamia Tsai - with all follow up regarding your services. ? Reviewed and Electronically Signed By: Jeanette Rao MD Date: 03/06/24 Patient/Biology Manager Signature Patient Name:BURTON TOBAR I have received this information and my questions have been answered. Patient/Biology Manager Name: Patient/Biology Manager Signature: Relationship to Patient: Witness Name/Signature: Date: Electronically Signed on: 03/06/2024 14:03 EDT Signed by:HELGA Note * Mely Skinner LNA: PERFORM Event Display: Speech/Audiology Therapy Note Authored Date: [id number] manager shell Note * Maria M Garcia, RN: PERFORM Event Display: Case Management Note Authored Date: Patient and state that patient insists on leaving today. Dr. Roa, PT, OT, Speech aware of d/ctoday. CM pended orders for [facility] for PT/OT via [place] and CM called [facility] and left message regarding services needed and d/c today. * Shahida Thomas: PERFORM Event Display: Case Management Note Authored Date: [id number] Report written from chart review, MD note and patient interview. From H&P: Mr Tobar is a 73 yo man with h/o DM2, CABG, HTN, HLD, GERD, PUD, AVR who was admitted at [facility] [place]/22 [place] 03/02 after presenting with CP concerning for ACS, NSTEMI and elevated troponins. He was taken to laboratory worker which showed patent MCKEON however high grade lesion of left circumflex. Nointervention done. Following the procedure, in the recovery room, noted to have slurred speech and left hemiparesis concerning for stroke. 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 Pt received TPA and thrombolytics. TTE showed EF 55%, with severely dilated LA. Stroke felt to be secondary to atheroembolism from procedure. NIHSS improved 14->7. The patient worked with PT OT and FRUIT TESTER throughout their stay however given residual deficits requiring CGA to min assist for mobility and ADLs due to left weakness, it was felt beneficial to transfer to an acute rehabilitation level of care for intensive PT OT and FRUIT TESTER with the goal of optimizing function and eventual return home. 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 Patient states that they could make first floor living a possibility if needed. Patient uses [facility] in [place], [place] for prescription needs Patient has used [facility] for [facility] services and is open to working with them again Patient was independent before this hospitalization and is currently using a walker/wheelchair for ambulation CM will maintain contact with patient and providers to coordinate services at discharge. Nurse Progress note * Enzo West: PERFORM Event Display: Progress Note-Nurse Authored Date: Physical Assessment: Pleasant and cooperative with all treatment cares. Vital signs stable. Pt slept well through the night Skin: remains intact Psychosocial / Cognitive: Alert, calm and oriented. Mobility: continues improvement with CGA with Gait Belt and FWW Pain: no complaints of pain or discomfort Safety: teaching safety, fall precautions and call light. Pt reports and demonstrates an understanding of teaching instructions. Medication needs / Diet: Cardiac meds held last night for low SBP, asymptomatic but in bed. Bowel meds also held Bowel / Bladder: Continent of bowel and bladder. Started on new bladder med last PM (Oxybutin)- Teaching on new med with pr reported understanding Working on...: Continues with therapy services for strengthening and functional mobility. Dischargeplanning, [Electronically Signed on: 03/06/2024 06:02 EDT] Enzo West [Verified on: 03/06/2024 06:02 EDT] Enzo West * Enzo West: PERFORM Event Display: Progress Note-Nurse Authored Date: [id number] SBP this AM = 137 HR 102. Report to day nurse possible adjustment of PM cardiac meds. Day nurse speak with day doctor [Electronically Signed on: 03/06/2024 07:05 EDT] Enzo West * Lisy Echeverria: PERFORM Event Display: Progress Note-Nurse Authored Date: [id number] Physical Assessment: VSS assessment benign, reported pt had restless night, up to void q2 hrs, discussed with , states this is baseline. Skin: intact, Psychosocial / Cognitive: Alert, pleasant and oriented. participating with therapies. Mobility: CGA/Gait belt/FWW support on left Pain: no c/o pain Safety: no concerns, using call blanco appropriately, Medication needs / Diet: using sliding scale per protocol , BG 147 /263/ 166, appetite Bowel / Bladder: continent of both, multiple BMs during day. Pt voiding small amounts multiple times an hour, urine odorless and clear, no discomfort, Dr Bourne informed, oxybutynin ordered BID, to startthis evening, will continue to monitor. Working on...: Bladder, safety, d/c planning, medication management [Electronically Signed on: 03/05/2024 18:07 EDT] Lisy Echeverria [Verified on: 03/05/2024 18:07 EDT] Lisy Echeverria * Rody Gaytan, RN: PERFORM Event Display: Progress Note-Nurse Authored Date: [id number] Physical Assessment: see iView and EMAR. VSS. Skin: no skin issues noted Psychosocial / Cognitive: Pt alert and oriented. Using call blanco appropriately. Able to make needs known. Mobility: SBA FWW, steady with ambulation. Pain: Pt denies pain. Safety: Call blanco in reach, ringing appropriately. Medication needs / Diet: Swallows pills whole. Lispro coverage required at HS. Bowel / Bladder: Pt is continent of bladder and bowel. Bowel medications held due to loose stools. Working on...: discharge planning for 03/10 [Electronically Signed on: 03/05/2024 05:01 EDT] Rody Gaytan RN [Verified on: 03/05/2024 05:01 EDT] Rody Gaytan RN History and physical note * Jeanette Rao MD: MODIFY, PERFORM, MODIFY Event Display: History and Physical Authored Date: [id number] Patient: BURTON TOBAR Age: 73 years Sex: Male : 1950 Associated Diagnoses: None Author: Jeanette Rao MD Basic Information Visit type: New patient evaluation. Source of history: Self, records. Chief Complaint RPCA stroke History of Present Illness Mr Tobar is a 73 yo man with h/o DM2, CABG, HTN, HLD, GERD, PUD, AVR who was [place] [facility] [place] after presenting with CP concerning for ACS, NSTEMI and elevated troponins. 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 No intervention done. Following the procedure, in the recovery room, noted to have slurred speech and left hemiparesis concerning for stroke. 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 Pt received TPA and thrombolytics. TTE showed EF 55%, with severely dilated LA. Stroke felt to be secondary to atheroembolism from procedure. NIHSS improved 14->7. The patient worked with PT OT and FRUIT TESTER throughout their stay however given residual deficits requiring CGA to min assist for mobility and ADLs due to left weakness, it was felt beneficial to transfer to an acute rehabilitation level of care for intensive PT OT and FRUIT TESTER with the goal of optimizing function and eventual return home. Review of Systems Constitutional: Negative. Pain assessment: Self-reports no pain. Eye: No blurring, No double vision. Ear/Nose/Mouth/Throat: No dysphagia. Respiratory: No shortness of breath, No cough, No wheezing, No sputum production. Cardiovascular: No chest pain, No palpitations, No bradycardia, No tachycardia, No leg swelling. Gastrointestinal: Constipation, No nausea, No vomiting, No diarrhea, No abdominal pain. Genitourinary: No dysuria, No urinary frequency, No urinary incontinence. Hematology/Lymphatics: Anemia. Endocrine: No hyperglycemia. Musculoskeletal: No back pain, No joint pain, No muscle pain, No joint swelling. Integumentary: No rash, No breakdown, No skin lesion. Neurologic: Weakness, No confusion, No numbness, No tingling, No dizziness, No memory loss, No speech problems. Psychiatric: No anxiety, No depression, No sleeping problems. Health Status Allergies: No allergies have been recorded., No qualifying data available Medications Current medications: (Selected) Inpatient Medications Ordered Colace: 100 mg = 1 cap(s), Oral, BID Dulcolax Laxative: 10 mg = 1 supp, Rectal, Daily, PRN: Constipation Humalog (Lispro) Sliding Scale Medium Dose Algorithm: Medium Dose Scale, Subcutaneous, QIDACHS Jardiance: 25 mg, Oral, Daily Lantus: 5 unit(s) = 0.05 mL, Subcutaneous, HS Lovenox: 40 mg = 0.4 mL, Subcutaneous, HS MiraLax: 17 gm = 1 packet(s), Oral, Daily, PRN: Constipation Norvasc: 5 mg = 1 tab(s), Oral, BID Plavix: 75 mg = 1 tab(s), Oral, Daily Protonix: 40 mg = 1 tab(s), Oral, Daily Sodium Chloride 1g Tab: 1 gm = 1 tab(s), Oral, TID Zetia: 10 mg = 1 tab(s), Oral, Daily acetaminophen: 650 mg = 2 tab(s), Oral, q4hr, PRN: Pain aspirin: 81 mg, Oral, Daily bacitracin zinc 500 units/g topical ointment: 1 lizet, Topical, q8hr, PRN: Other (see comment) entresto: 24-26, Oral, BID glipiZIDE: 10 mg = 2 tab(s), Oral, Daily glucagon: 1 mg = 1 vial(s), Intramuscular, Daily, PRN: Blood Glucose glucose 40% oral gel: 37.5 gm = 1 EA, Oral, q30min, PRN: Low blood sugar metFORMIN: 1,000 mg = 2 tab(s), Oral, BID metoprolol: 100 mg = 2 tab(s), Oral, BID omeprazole: 20 mg = 1 tab(s), Oral, Daily rosuvastatin: 40 mg = 1 tab(s), Oral, HS senna: 17.2 mg = 2 tab(s), Oral, HS Documented Medications Documented Aspirin 81 mg Chewable: 1 tab(s), Oral, Daily, 0 Refill(s) Entresto 24 mg-26 mg oral tablet: 1 tab(s), Oral, BID, 0 Refill(s) Jardiance 25 mg oral tablet: 0 Refill(s) Norvasc 5 mg oral tablet: 5 mg = 1 tab(s), Oral, BID, 0 Refill(s) Ozempic 2 mg/1.5 mL (0.25 mg or 0.5 mg dose) subcutaneous solution: 0.5 mg, Subcutaneous, qWeek, 0 Refill(s) Plavix 75 mg oral tablet: 75 mg = 1 tab(s), Oral, Daily, 0 Refill(s) amoxicillin-clavulanate 1000 mg-62.5 mg oral tablet, extended release: 2 tab(s), Oral, dental procedures, 0 Refill(s) glipiZIDE 10 mg oral tablet, extended release: 10 mg = 1 tab(s), Oral, Daily, 0 Refill(s) metFORMIN 1000 mg oral tablet: 1,000 mg = 1 tab(s), Oral, BID, 0 Refill(s) metoprolol tartrate 100 mg oral tablet: 100 mg = 1 tab(s), Oral, BID, 0 Refill(s) multivitamin: 1 tab(s), Oral, Daily, 0 Refill(s) omeprazole 20 mg oral delayed release tablet: 20 mg = 1 tab(s), Oral, Daily, 0 Refill(s) rosuvastatin 40 mg oral tablet: 40 mg = 1 tab(s), Oral, HS, 0 Refill(s), Medications (24) Active Scheduled: (18) amLODIPine 5 mg Tab [[facility]] 5 mg 1 tab(s), Oral, BID aspirin 81 mg, Oral, Daily clopidogrel 75 mg Tab [[facility]] 75 mg 1 tab(s), Oral, Daily docusate sodium 100 mg Cap [[facility]] 100 mg 1 cap(s), Oral, BID empagliflozin 25 mg, Oral, Daily enoxaparin 40 mg/0.4 mL SC Dilma [[facility]] 40 mg 0.4 mL, Subcutaneous, HS ezetimibe 10 mg Tab [[facility]] 10 mg 1 tab(s), Oral, Daily glipiZIDE 5 mg ER Tab [[facility]] 10 mg 2 tab(s), Oral, Daily insulin glargine 100 units/mL SubQ [[facility]] 5 unit(s) 0.05 mL, Subcutaneous, HS insulin lispro (HumaLOG) 100 units/mL SubQ PEN [[facility]] Medium Dose Scale, Subcutaneous, QIDACHS metFORMIN 500 mg Tab [[facility]] 1,000 mg 2 tab(s), Oral, BID metoprolol 50 mg Tab [[facility]] 100 mg 2 tab(s), Oral, BID Non-Formulary 24-26, Oral, BID omeprazole 20 mg 1 tab(s), Oral, Daily pantoprazole 40 mg Oral EC Tab [[facility]] 40 mg 1 tab(s), Oral, Daily rosuvastatin 40 mg 1 tab(s), Oral, HS senna 8.6 mg Tab [[facility]] 17.2 mg 2 tab(s), Oral, HS sodium chloride 1 g Tab [[facility]] 1 gm 1 tab(s), Oral, TID Continuous: (0) PRN: (6) acetaminophen 325 mg Tab [[facility]] 650 mg 2 tab(s), Oral, q4hr bacitracin zinc 500 units/g Top Oint UD [[facility]] 1 lizet, Topical, q8hr bisacodyl 10 mg Supp [[facility]] 10 mg 1 supp, Rectal, Daily glucagon recombinant 1 mg Inj [[facility]] 1 mg 1 vial(s), Intramuscular, Daily glucose 40% oral gel ([facility] 37.5 gm 1 EA, Oral, q30min polyethylene glycol 3350 Oral Pwdr Recon [[facility]] 17 gm 1 packet(s), Oral, Daily . Medications (24) Active Scheduled: (18) amLODIPine 5 mg Tab [[facility]] 5 mg 1 tab(s), Oral, BID aspirin 81 mg, Oral, Daily clopidogrel 75 mg Tab [[facility]] 75 mg 1 tab(s), Oral, Daily docusate sodium 100 mg Cap [[facility]] 100 mg 1 cap(s), Oral, BID empagliflozin 25 mg, Oral, Daily enoxaparin 40 mg/0.4 mL SC Dilma [[facility]] 40 mg 0.4 mL, Subcutaneous, HS ezetimibe 10 mg Tab [[facility]] 10 mg 1 tab(s), Oral, Daily glipiZIDE 5 mg ER Tab [[facility]] 10 mg 2 tab(s), Oral, Daily insulin glargine 100 units/mL SubQ [[facility]] 5 unit(s) 0.05 mL, Subcutaneous, HS insulin lispro (HumaLOG) 100 units/mL SubQ PEN [[facility]] Medium Dose Scale, Subcutaneous, QIDACHS metFORMIN 500 mg Tab [[facility]] 1,000 mg 2 tab(s), Oral, BID metoprolol 50 mg Tab [[facility]] 100 mg 2 tab(s), Oral, BID Non-Formulary 24-26, Oral, BID omeprazole 20 mg 1 tab(s), Oral, Daily pantoprazole 40 mg Oral EC Tab [[facility]] 40 mg 1 tab(s), Oral, Daily rosuvastatin 40 mg 1 tab(s), Oral, HS senna 8.6 mg Tab [[facility]] 17.2 mg 2 tab(s), Oral, HS sodium chloride 1 g Tab [[facility]] 1 gm 1 tab(s), Oral, TID Continuous: (0) PRN: (6) acetaminophen 325 mg Tab [[facility]] 650 mg 2 tab(s), Oral, q4hr bacitracin zinc 500 units/g Top Oint UD [[facility]] 1 lizet, Topical, q8hr bisacodyl 10 mg Supp [[facility]] 10 mg 1 supp, Rectal, Daily glucagon recombinant 1 mg Inj [[facility]] 1 mg 1 vial(s), Intramuscular, Daily glucose 40% oral gel ([facility]] 37.5 gm 1 EA, Oral, q30min polyethylene glycol 3350 Oral Pwdr Recon [[facility]] 17 gm 1 packet(s), Oral, Daily . Problem list: All Problems CAD (coronary artery disease) / 9753329761 / Confirmed GERD (gastroesophageal reflux disease) / 879060672 / Confirmed S/P AVR / [id number] / Confirmed Hx of CABG / [id number] / Confirmed HLD (hyperlipidemia) / 02208390 / Confirmed HTN (hypertension) / 4377325262 / Confirmed PUD (peptic ulcer disease) / 87342174 / Confirmed DM2 (diabetes mellitus, type 2) / / Confirmed, Active Problems (8) CAD (coronary artery disease) DM2 (diabetes mellitus, type 2) GERD (gastroesophageal reflux disease) HLD (hyperlipidemia) HTN (hypertension) Hx of CABG PUD (peptic ulcer disease) S/P AVR Histories Past Medical History: Active HTN (hypertension) (4254495084) PUD (peptic ulcer disease) (69078693) GERD (gastroesophageal reflux disease) (553638809) DM2 (diabetes mellitus, type 2) () S/P AVR (1182322931) Hx of CABG (7789417470) HLD (hyperlipidemia) (51105840) CAD (coronary artery disease) (1976838577) Family History: No family history items have been selected or recorded. Procedure history: No active procedure history items have been selected or recorded. Social History Social History No active social history has been recorded Psychosocial History No active psychosocial history has been recorded . Family/ Social situation: Lives in home with 4-5 EARLE, 2nd floor but can have bed on main level as needed. Lives with who helps manage medications. No tobacco, no alcohol, no MJ. Previously independent. Physical Examination VS/Measurements Vital Signs (last 24 hrs) Last Charted Weight 77.7 kg (MAR 02 13:00) , Measurements from flowsheet : Measurements 03/02/2024 13:00 EDT Weight 77.7 kg Weight Dosing 77.700 kg General: Alert and oriented, No acute distress. Eye: Extraocular movements are intact, Normal conjunctiva. Respiratory: Lungs are clear to auscultation, Respirations are non-labored. Cardiovascular: Normal rate, Regular rhythm. Gastrointestinal: Soft, Non-tender, Non-distended, Normal bowel sounds. Integumentary: Intact, No rash. Mental status/ Cognition Alert. Oriented x 3. Speech and language intact. Cognition intact. Sensorimotor/ Reflexes Normal sensation. strength 5/5 except LUE +pronator drift. Psychiatric: Cooperative, Appropriate mood & affect. Review / Management Results review: No qualifying data available . 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 Impairments: Hemiparesis, Fatigue, Speech/ language. General: Decreased strength, Decreased endurance, Decreased balance. Disabilities: Decreased: Mobility, Ability to transfer self, Ability to ambulate, Ability to dress self, Ability to feed self, Ability to bathe self, Ability to toilet self, Ability to self-care, Communication abilities, Problem- solving abilities, Safety. Limiting factors: Medical complexity. Nursing goals: Nutrition/diet: Maintain optimal caloric intake, Tolerate regular diet. Medication monitor for treatment: Effects, Adverse reactions. Bladder: Continent, Regulated with program. Bowel: Continent, Regulated with program. Skin: Promote wound healing, Prevent breakdown. Pain/Sleep: Regulate sleep cycle, Decrease pain level. Occupational therapy goals: Setup/ supervision, Equipment/DME assessment. Physical therapy goals: Setup/ supervision, Equipment/DME assessment, Home assessment. Speech Therapy goals: Setup/ supervision, Dysphagia assessment, Cognitive assessment, Language assessment. Therapeutic Recreation Goals: Leisure skills assessment, Improve social interaction with peers. Patient/Family Goals: Return to home independent, Return to home with assistance. Potential for improvement to meet goals: Good. Patient/Family Educational Needs: ADL assistance, Bowel/bladder program, Disease process education,Medication education, Safety awareness, Transfers. Estimated length of stay: 1 weeks. Disposition: Home. Code Status: Full code. Medical Plan DVT prophylaxis: low molecular weight heparin, anti-embolus stockings. Skin: pressure relief, positioning, edema management. Respiratory: pulmonary hygiene incentive spirometry. Cardiovascular: CAD HTN HLD AVR Continue ASA norvasc statin metoprolol entresto. Endocrine: DM2 Continue CCD diet, metformin and glipizide per home. Also started lantus 5 which I will try to taper off, and also on ISS hyponatremia - Na 127, stable 127-128 last few days. Infectious Disease: left foot cellulitis - completed keflex 500 qid. Hematology: anemia - Hb stable 10, recheck CBC in am. GI: prophylaxis proton pump inhibitors, Constipation (laxative, stool softener). : retention (post void residual, voiding program). Nutrition: diabetic. Fluids/ Electrolytes: encourage po foods and fluids. Pain: managed with acetaminophen. #[facility] medication review: Did a complete drug regimen review identify potential clinically significant medication issues? - YES ??? Issues found during review; zetia and protonix listed as new meds but are home meds; pt has been receiving lantus which is not listed on discharge med list Did the facility complete prescribed/recommended actions in response to the identified potential clinically significant medication issues by midnight of the next calendar day? - YES . #[facility] High-Risk Drug Classes Is patient taking any medications in the following pharmacological classifications: Antipsychotic, Anticoagulant, Antibiotic, Opioid, Antiplatelet, Hypoglycemic (including insulin)? YES - Antiplatelet, Hypoglycemic (including insulin) Is there an indication noted for all medications in the drug classes noted above? YES, indication noted . Rehab Impairment Categories Impairment category/ codes table I & II Stroke: 01.1 Left body involvement (right brain). Post Admission Physician Evaluation: Documentation Reviewed: I have reviewed the Preadmission Screen. Functional status documented at preadmission: I agree with the patient's current functional status as documented in the preadmission screening. Risk for complications: I agree with the risk for clinical complications documented in the preadmission screening. Medical conditions: The patient's medical conditions can be managed in the rehab hospital, The planof treatment is documented above in the history and physical. Patient participation in therapy: The patient can participate in, and will benefit from an intense therapy program at least 3 hours per day / 5 days per week. Therapies/services include:, Physical therapy, Occupational therapy, Speech language pathology, Rehabilitation Nursing, Case Management, Therapeutic Recreation, Nanotechnologist. [Electronically Signed on: 03/02/2024 14:28 EDT] Jeanette Rao MD, MD [Electronically Signed on: 03/02/2024 15:02 EDT] Jeanette Rao MD, MD [Electronically Signed on: 03/02/2024 15:38 EDT] Jeanette Rao MD, MD [Verified on: 03/02/2024 14:28 EDT] Jeanette Rao MD, MD Progress note * Jessee Bourne MD, [employer]: PERFORM Event Display: Progress Note-Physician Authored Date: [id number] BURTON TOBAR :1950 Age:73 years Sex:Male Visit Date:03/02/2024 Primary Care Physician: Tamia Tsai Subjective Urinate q2hr per patient. Also does this at home. RN notes PVRs here have been normal so no signs of retention. Objective Vitals & Measurements T:??36.5?C ??(Oral)?? HR:??89??(Peripheral)?? RR:??16?? BP:??110/66?? SpO2:??97%?? Pain Score:??0 = No pain?? O2 Therapy:??Room air?? Physical Exam Gen -?NAD?? Resp - breath sound??clear bilaterally? Card -?regular??rhythm,??normal rate?? Abd -?nontender?,??nondistended??,?normoactive?? 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 ?#Cardiovascular: CAD HTN HLD AVR ?Continue ASA norvasc statin metoprolol entresto. ?BP 100-120 well controlled ?#DM2?Continue CCD diet, ISS ?at , started lantus 5 which has been stopped ?restarted metformin and glipizide (home meds). Started metformin 500 bid increased to 1000 bid;restarted glipizide 5 ?BGs 110-170 currently ?resume increased dose glipizide 10 next 1-2d depending on BGs ?f/u PCP re DM management ?#hyponatremia?Na 129 on admit, had been stable 127-128 last few days. ?continues on NaCl tabs ?next BMP Fri, consider stopping salt tabs at that time if appropriate ?#left foot cellulitis, resolved ?completed keflex 500 qid while at ?#anemia?Hb stable 10, 9.6 on admit, stable ?#GI prophylaxis ?proton pump inhibitor ? #chronic urinary frequency ? given chronicity and normal PVRs, may have overactive bladder, try oxybutynin ?#dispo ?home after 1 week LOS, with home health as needed ?f/u PCP neuro cardiology ?Medication prescribed despite medication allergy noted in patient's medical record. ?YES - started oxybutynin ? [Electronically Signed on: 03/05/2024 16:24 EDT] IpJessee MD, [employer] [Verified on: 03/05/2024 16:24 EDT] IpJessee MD, [employer] * Jeanette Rao MD: VERIFY, PERFORM, SIGN Event Display: Progress Note-Physician Authored Date: [id number] Patient: BURTON TOBAR Age: 73 years Sex: Male : 1950 Associated Diagnoses: None Author: Jeanette Rao MD Subjective Doing well. Per PT neglect improving. He reported urinary frequency at night, present since he was diagnosed with DM. Recommended reduced fluid intake after 6pm and he will try this. BGs better sinceresuming home med regimen. Following BMP next on Sat. Health Status Allergies: Nonallergic Reactions (All) Severe Lisinopril- No reactions were documented., Allergies (1) Active Severity Reaction lisinopril Severe None Documented Medications Current medications: (Selected) Inpatient Medications Ordered Colace: 100 mg = 1 cap(s), Oral, BID Dulcolax Laxative: 10 mg = 1 supp, Rectal, Daily, PRN: Constipation Humalog (Lispro) Sliding Scale Medium Dose Algorithm: Medium Dose Scale, Subcutaneous, QIDACHS Lovenox: 40 mg = 0.4 mL, Subcutaneous, HS MiraLax: 17 gm = 1 packet(s), Oral, Daily, PRN: Constipation Norvasc: 5 mg = 1 tab(s), Oral, BID Plavix: 75 mg = 1 tab(s), Oral, Daily Protonix: 40 mg = 1 tab(s), Oral, Daily Sodium Chloride 1g Tab: 1 gm = 1 tab(s), Oral, TID Zetia: 10 mg = 1 tab(s), Oral, Daily acetaminophen: 650 mg = 2 tab(s), Oral, q4hr, PRN: Pain aspirin: 81 mg = 1 tab(s), Oral, Daily atorvastatin: 80 mg = 1 tab(s), Oral, HS bacitracin zinc 500 units/g topical ointment: 1 lizet, Topical, q8hr, PRN: Other (see comment) glipiZIDE: 5 mg = 1 tab(s), Oral, Daily glucagon: 1 mg = 1 vial(s), Intramuscular, Daily, PRN: Blood Glucose glucose 40% oral gel: 37.5 gm = 1 EA, Oral, q30min, PRN: Low blood sugar metFORMIN: 1,000 mg = 2 tab(s), Oral, BIDWM metoprolol: 100 mg = 2 tab(s), Oral, BID sacubitril-valsartan 24-26 mg Tab: 1 EA, Oral, BID senna: 17.2 mg = 2 tab(s), Oral, HS Documented Medications Documented Aspirin 81 mg Chewable: 1 tab(s), Oral, Daily, 0 Refill(s) Entresto 24 mg-26 mg oral tablet: 1 tab(s), Oral, BID, 0 Refill(s) Jardiance 25 mg oral tablet: 0 Refill(s) Norvasc 5 mg oral tablet: 5 mg = 1 tab(s), Oral, BID, 0 Refill(s) Ozempic 2 mg/1.5 mL (0.25 mg or 0.5 mg dose) subcutaneous solution: 0.5 mg, Subcutaneous, qWeek, 0 Refill(s) Plavix 75 mg oral tablet: 75 mg = 1 tab(s), Oral, Daily, 0 Refill(s) Zetia 10 mg oral tablet: 10 mg = 1 tab(s), Oral, Daily, 0 Refill(s) amoxicillin-clavulanate 1000 mg-62.5 mg oral tablet, extended release: 2 tab(s), Oral, dental procedures, 0 Refill(s) metFORMIN 1000 mg oral tablet: 1,000 mg = 1 tab(s), Oral, BID, 0 Refill(s) metoprolol tartrate 100 mg oral tablet: 100 mg = 1 tab(s), Oral, BID, 0 Refill(s) multivitamin: 1 tab(s), Oral, Daily, 0 Refill(s) omeprazole 20 mg oral delayed release tablet: 20 mg = 1 tab(s), Oral, Daily, 0 Refill(s) rosuvastatin 40 mg oral tablet: 40 mg = 1 tab(s), Oral, HS, 0 Refill(s), Medications (21) Active Scheduled: (15) amLODIPine 5 mg Tab [[facility]] 5 mg 1 tab(s), Oral, BID aspirin 81 mg Chew Tab [[facility]] 81 mg 1 tab(s), Oral, Daily atorvastatin 80 mg Tab [[facility]] 80 mg 1 tab(s), Oral, HS clopidogrel 75 mg Tab [[facility]] 75 mg 1 tab(s), Oral, Daily docusate sodium 100 mg Cap [[facility]] 100 mg 1 cap(s), Oral, BID enoxaparin 40 mg/0.4 mL SC Dilma [[facility]] 40 mg 0.4 mL, Subcutaneous, HS ezetimibe 10 mg Tab [[facility]] 10 mg 1 tab(s), Oral, Daily glipiZIDE 5 mg ER Tab [[facility]] 5 mg 1 tab(s), Oral, Daily insulin lispro (HumaLOG) 100 units/mL SubQ PEN [[facility]] Medium Dose Scale, Subcutaneous, QIDACHS metFORMIN 500 mg Tab [[facility]] 1,000 mg 2 tab(s), Oral, BIDWM metoprolol 50 mg Tab [[facility]] 100 mg 2 tab(s), Oral, BID pantoprazole 40 mg Oral EC Tab [[facility]] 40 mg 1 tab(s), Oral, Daily sacubitril-valsartan 24-26 mg Tab 1 EA, Oral, BID senna 8.6 mg Tab [[facility]] 17.2 mg 2 tab(s), Oral, HS sodium chloride 1 g Tab [[facility]] 1 gm 1 tab(s), Oral, TID Continuous: (0) PRN: (6) acetaminophen 325 mg Tab [[facility]] 650 mg 2 tab(s), Oral, q4hr bacitracin zinc 500 units/g Top Oint UD [[facility]] 1 lizet, Topical, q8hr bisacodyl 10 mg Supp [[facility]] 10 mg 1 supp, Rectal, Daily glucagon recombinant 1 mg Inj [[facility]] 1 mg 1 vial(s), Intramuscular, Daily glucose 40% oral gel ([facility]] 37.5 gm 1 EA, Oral, q30min polyethylene glycol 3350 Oral Pwdr Recon [[facility]] 17 gm 1 packet(s), Oral, Daily . Problem list: All Problems CAD (coronary artery disease) / 3930889284 / Confirmed GERD (gastroesophageal reflux disease) / 888741568 / Confirmed S/P AVR / 4513856248 / Confirmed Hx of CABG / 2146032424 / Confirmed HLD (hyperlipidemia) / 07725482 / Confirmed HTN (hypertension) / 8133283316 / Confirmed PUD (peptic ulcer disease) / 79181838 / Confirmed DM2 (diabetes mellitus, type 2) / 881632988 / Confirmed, Active Problems (8) CAD (coronary artery disease) DM2 (diabetes mellitus, type 2) GERD (gastroesophageal reflux disease) HLD (hyperlipidemia) HTN (hypertension) Hx of CABG PUD (peptic ulcer disease) S/P AVR Objective VS/Measurements Vital Signs (last 24 hrs) Last Charted Temp Oral 36.8 DegC (MAR 04 07:15) Heart Rate Peripheral 79 bpm (MAR 04:15) Resp Rate 18 br/min (MAR 03 20:00) SBP 106 mmHg (MAR 04 07:15) DBP 69 mmHg (MAR 04 07:15) General: Alert and oriented, No acute distress. Eye: Extraocular movements are intact, Normal conjunctiva. Respiratory: Respirations are non-labored. Cardiovascular: Normal rate. Gastrointestinal: Non-distended. Integumentary: Intact, No rash. Movement/ Coordination gait slow steady with FWW and CGA. Psychiatric: Cooperative, Appropriate mood & affect. Results Review Results review Labs (Last four charted values) WBC 5.9 (MAR 03) Hgb L 9.6 (MAR 03) Hct L 28.3 (MAR 03) Plt 272 (MAR 03) Na L 129 (MAR 03) K 4.4 (MAR 03) CO2 L 20 (MAR 03) Cl L 97 (MAR 03) Cr .85 (MAR 03) 0.96 (MAR 02) BUN 14 (MAR 03) Glucose H 147 (MAR 03) Ca 8.8 (MAR 03) Lab results 03/04/2024 7:12 EDT Blood Glucose, Capillary POC 161 mg/dL AR 03/03/2024 20:27 EDT Blood Glucose, Capillary POC 114 mg/dL AR 03/03/2024 20:11 EDT Blood Glucose, Capillary POC 114 mg/dL AR 03/03/2024 20:08 EDT Glucose POC 114 mg/dL AR 03/03/2024 17:26 EDT Blood Glucose, Capillary POC 175 mg/dL AR 03/03/2024 17:17 EDT Glucose POC 175 mg/dL AR 03/03/2024 11:53 EDT Blood Glucose, Capillary POC 220 mg/dL AR 03/03/2024 7:11 EDT Blood Glucose, Capillary POC 152 mg/dL AR 03/03/2024 7:06 EDT Glucose POC 152 mg/dL AR 03/03/2024 5:00 EDT WBC DH 5.9 x10(3)/mcL RBC DH 3.51 x10(6)/mcL LOW Hgb DH 9.6 g/dL LOW Hct DH 28.3 % LOW MCV DH 80.6 fL LOW MCH DH 27.4 pg LOW MCHC DH 33.9 g/dL Platelet DH 272 x10(3)/mcL RDWSD DH 45.0 fL RDWCV DH 15.3 % HI MPV DH 10.5 fL NRBC Absolute DH 0 NA NRBC% auto DH 0 % Fasting >= 8hrs? 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 #Cardiovascular: CAD HTN HLD AVR Continue ASA norvasc statin metoprolol entresto. BP 100-120 well controlled #DM2 Continue CCD diet, ISS at , started lantus 5 which has been stopped restarted metformin and glipizide (home meds). Started metformin 500 bid increased to 1000 bid; restarted glipizide 5 BGs 110-170 currently resume increased dose glipizide 10 next 1-2d depending on BGs f/u PCP re DM management #hyponatremia Na 129 on admit, had been stable 127-128 last few days. continues on NaCl tabs next BMP Sat, consider stopping salt tabs at that time if appropriate #left foot cellulitis, resolved completed keflex 500 qid while at #anemia Hb stable 10, 9.6 on admit, stable #GI prophylaxis proton pump inhibitor #dispo home after 1 week LOS, with home health as needed f/u PCP neuro cardiology Medication prescribed despite medication allergy noted in patient's medical record. NO 35 min total time spent on chart review, discussion with team, face to face eval [Electronically Signed on: 03/04/2024 11:39 EDT] Jeanette Rao MD, MD [Verified on: 03/04/2024 11:39 EDT] Jeanette Rao MD, MD * Jeanette Rao MD: VERIFY, PERFORM, SIGN Event Display: Progress Note-Physician Authored Date: Patient: BURTON TOBAR Age: 73 years Sex: Male : 1950 Associated Diagnoses: None Author: Jeanette Rao MD Subjective Doing well on first full day therapies. Tired, sleeping during my visit as asked questions about how he's doing. No concerns, no acute complaints. BGs hihg today but restarting home oral meds and stopped lantus. Health Status Allergies: Nonallergic Reactions (All) Severe Lisinopril- No reactions were documented., Allergies (1) Active Severity Reaction lisinopril Severe None Documented Medications Current medications: (Selected) Inpatient Medications Ordered Colace: 100 mg = 1 cap(s), Oral, BID Dulcolax Laxative: 10 mg = 1 supp, Rectal, Daily, PRN: Constipation Humalog (Lispro) Sliding Scale Medium Dose Algorithm: Medium Dose Scale, Subcutaneous, QIDACHS Lovenox: 40 mg = 0.4 mL, Subcutaneous, HS MiraLax: 17 gm = 1 packet(s), Oral, Daily, PRN: Constipation Norvasc: 5 mg = 1 tab(s), Oral, BID Plavix: 75 mg = 1 tab(s), Oral, Daily Protonix: 40 mg = 1 tab(s), Oral, Daily Sodium Chloride 1g Tab: 1 gm = 1 tab(s), Oral, TID Zetia: 10 mg = 1 tab(s), Oral, Daily acetaminophen: 650 mg = 2 tab(s), Oral, q4hr, PRN: Pain aspirin: 81 mg = 1 tab(s), Oral, Daily atorvastatin: 80 mg = 1 tab(s), Oral, HS bacitracin zinc 500 units/g topical ointment: 1 lizet, Topical, q8hr, PRN: Other (see comment) glipiZIDE: 5 mg = 1 tab(s), Oral, Daily glucagon: 1 mg = 1 vial(s), Intramuscular, Daily, PRN: Blood Glucose glucose 40% oral gel: 37.5 gm = 1 EA, Oral, q30min, PRN: Low blood sugar metFORMIN: 500 mg = 1 tab(s), Oral, BIDWM metoprolol: 100 mg = 2 tab(s), Oral, BID sacubitril-valsartan 24-26 mg Tab: 1 EA, Oral, BID senna: 17.2 mg = 2 tab(s), Oral, HS Documented Medications Documented Aspirin 81 mg Chewable: 1 tab(s), Oral, Daily, 0 Refill(s) Entresto 24 mg-26 mg oral tablet: 1 tab(s), Oral, BID, 0 Refill(s) Jardiance 25 mg oral tablet: 0 Refill(s) Norvasc 5 mg oral tablet: 5 mg = 1 tab(s), Oral, BID, 0 Refill(s) Ozempic 2 mg/1.5 mL (0.25 mg or 0.5 mg dose) subcutaneous solution: 0.5 mg, Subcutaneous, qWeek, 0 Refill(s) Plavix 75 mg oral tablet: 75 mg = 1 tab(s), Oral, Daily, 0 Refill(s) Zetia 10 mg oral tablet: 10 mg = 1 tab(s), Oral, Daily, 0 Refill(s) amoxicillin-clavulanate 1000 mg-62.5 mg oral tablet, extended release: 2 tab(s), Oral, dental procedures, 0 Refill(s) metFORMIN 1000 mg oral tablet: 1,000 mg = 1 tab(s), Oral, BID, 0 Refill(s) metoprolol tartrate 100 mg oral tablet: 100 mg = 1 tab(s), Oral, BID, 0 Refill(s) multivitamin: 1 tab(s), Oral, Daily, 0 Refill(s) omeprazole 20 mg oral delayed release tablet: 20 mg = 1 tab(s), Oral, Daily, 0 Refill(s) rosuvastatin 40 mg oral tablet: 40 mg = 1 tab(s), Oral, HS, 0 Refill(s), Medications (21) Active Scheduled: (15) amLODIPine 5 mg Tab [[facility]] 5 mg 1 tab(s), Oral, BID aspirin 81 mg Chew Tab [[facility]] 81 mg 1 tab(s), Oral, Daily atorvastatin 80 mg Tab [[facility]] 80 mg 1 tab(s), Oral, HS clopidogrel 75 mg Tab [[facility]] 75 mg 1 tab(s), Oral, Daily docusate sodium 100 mg Cap [[facility]] 100 mg 1 cap(s), Oral, BID enoxaparin 40 mg/0.4 mL SC Dilma [[facility]] 40 mg 0.4 mL, Subcutaneous, HS ezetimibe 10 mg Tab [[facility]] 10 mg 1 tab(s), Oral, Daily glipiZIDE 5 mg ER Tab [[facility]] 5 mg 1 tab(s), Oral, Daily insulin lispro (HumaLOG) 100 units/mL SubQ PEN [[facility]] Medium Dose Scale, Subcutaneous, QIDACHS metFORMIN 500 mg Tab [[facility]] 500 mg 1 tab(s), Oral, BIDWM metoprolol 50 mg Tab [[facility]] 100 mg 2 tab(s), Oral, BID pantoprazole 40 mg Oral EC Tab [[facility]] 40 mg 1 tab(s), Oral, Daily sacubitril-valsartan 24-26 mg Tab 1 EA, Oral, BID senna 8.6 mg Tab [[facility]] 17.2 mg 2 tab(s), Oral, HS sodium chloride 1 g Tab [[facility]] 1 gm 1 tab(s), Oral, TID Continuous: (0) PRN: (6) acetaminophen 325 mg Tab [[facility]] 650 mg 2 tab(s), Oral, q4hr bacitracin zinc 500 units/g Top Oint UD [[facility]] 1 lizet, Topical, q8hr bisacodyl 10 mg Supp [[facility]] 10 mg 1 supp, Rectal, Daily glucagon recombinant 1 mg Inj [[facility]] 1 mg 1 vial(s), Intramuscular, Daily glucose 40% oral gel ([facility]] 37.5 gm 1 EA, Oral, q30min polyethylene glycol 3350 Oral Pwdr Recon [[facility]] 17 gm 1 packet(s), Oral, Daily . Problem list: All Problems CAD (coronary artery disease) / 8454710751 / Confirmed GERD (gastroesophageal reflux disease) / 213067959 / Confirmed S/P AVR / 7750128374 / Confirmed Hx of CABG / 5201606119 / Confirmed HLD (hyperlipidemia) / 44342753 / Confirmed HTN (hypertension) / 6702633764 / Confirmed PUD (peptic ulcer disease) / 70115977 / Confirmed DM2 (diabetes mellitus, type 2) / 096215371 / Confirmed, Active Problems (8) CAD (coronary artery disease) DM2 (diabetes mellitus, type 2) GERD (gastroesophageal reflux disease) HLD (hyperlipidemia) HTN (hypertension) Hx of CABG PUD (peptic ulcer disease) S/P AVR Objective VS/Measurements Vital Signs (last 24 hrs) Last Charted Temp Oral 36.7 DegC (MAR 03 07:00) Heart Rate Peripheral 84 bpm (MAR 03 07:00) Resp Rate 18 br/min (MAR 03 07:00) SBP 118 mmHg (MAR 03 10:00) DBP 78 mmHg (MAR 03 10:00) Weight 77.7 kg (MAR 02 14:37) Height 170.2 cm (MAR 02 14:37) BMI 26.82 (MAR 02 14:37) Results Review Results review Labs (Last four charted values) WBC 5.9 (MAR 03) Hgb L 9.6 (MAR 03) Hct L 28.3 (MAR 03) Plt 272 (MAR 03) Na L 129 (MAR 03) K 4.4 (MAR 03) CO2 L 20 (MAR 03) Cl L 97 (MAR 03) Cr .85 (MAR 03) 0.96 (MAR 02) BUN 14 (MAR 03) Glucose H 147 (MAR 03) Ca 8.8 (MAR 03) Lab results 03/03/2024 11:53 EDT Blood Glucose, Capillary POC 220 mg/dL HI 03/03/2024 7:11 EDT Blood Glucose, Capillary POC 152 mg/dL HI 03/03/2024 7:06 EDT Glucose POC 152 mg/dL HI 03/03/2024 5:00 EDT WBC DH 5.9 x10(3)/mcL RBC DH 3.51 x10(6)/mcL LOW Hgb DH 9.6 g/dL LOW Hct DH 28.3 % LOW MCV DH 80.6 fL LOW MCH DH 27.4 pg LOW MCHC DH 33.9 g/dL Platelet DH 272 x10(3)/mcL RDWSD DH 45.0 fL RDWCV DH 15.3 % HI MPV DH 10.5 fL NRBC Absolute DH 0 NA NRBC% auto DH 0 % Fasting >= 8hrs? 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 #Cardiovascular: CAD HTN HLD AVR Continue ASA norvasc statin metoprolol entresto. #DM2 Continue CCD diet, ISS restart metformin and glipizide per home. Started metformin 500 bid increased to 1000 bid today; restart glipizide 5 will plan to increase 10 10 tomorrow as needed at , started lantus 5 which was stopped f/u PCP re DM management #hyponatremia Na 129 on admit, had been stable 127-128 last few days. #left foot cellulitis completed keflex 500 qid. #anemia Hb stable 10, 9.6 on admit, stable #GI prophylaxis proton pump inhibitor #dispo home after 1 week LOS, with home health as needed f/u PCP neuro cardiology Medication prescribed despite medication allergy noted in patient's medical record. YES increased metformin Did the facility complete prescribed/recommended actions in response to the identified potentially clinically significant medication issues by midnight of the next calendar day? YES 35 min total time spent on chart review, discussion with team, face to face eval [Electronically Signed on: 03/03/2024 12:20 EDT] Jeanette Rao MD, MD [Verified on: 03/03/2024 12:20 EDT] Jeanette Rao MD, MD Patient Care team information Care Team Personnel Name: Tamia Tsai Position: CAH No Access Member Role: Informed Provider Address: Address: [address] [place] [phone] [place] Care Team Related Persons Name: SEBAS TOBAR Address: Home [address] [place] [address], [phone] Name: SUJATA TOBAR
--- OUTSIDE RECORDS SUMMARY | 2024-04-02 21:07 | XMS_ITS | Continuity of Care Document ---
Author Organization [facility] Address Unknown Care Team Providers Care Parts Consultant Name Role Phone Tamia Tsai Primary Care Physician Encounter [facility] Date(s): 03/04/24 - 03/04/24 [facility] [address], [place] [address] Discharge Disposition: Other Allergies, Adverse Reactions, Alerts Substance Criticality Severity Reaction Reaction Severity Status lisinopril 1 High criticality Severe Active 1tolerates Entresto per home regimen Assessment and Plan Future Appointments Medications amoxicillin-clavulanate 1000 mg-62.5 mg oral tablet, extended release 2 tab(s), Oral, dental procedures, 0 Refill(s) Start Date: 03/02/24 Status: Ordered Aspirin 81 mg Chewable = 1 tab(s), Oral, Daily, 0 Refill(s) Start Date: 03/02/24 Status: Ordered Entresto 24 mg-26 mg oral tablet = 1 tab(s), Oral, BID, 0 Refill(s) Start Date: 03/02/24 Status: Ordered Jardiance 25 mg oral tablet 0 Refill(s) [...] 0 Refill(s) Start Date: 03/02/24 Status: Ordered omeprazole 20 mg oral delayed release tablet 20 mg = 1 tab(s), Oral, Daily, 0 Refill(s) Start Date: 03/02/24 Status: Ordered Ozempic 2 mg/1.5 mL (0.25 mg or 0.5 mg dose) subcutaneous solution 0.5 mg, Subcutaneous, qWeek, 0 Refill(s) Start Date: 03/02/24 Status: Ordered Plavix 75 mg oral tablet 75 mg = 1 tab(s), Oral, Daily, 0 Refill(s) Start Date: 03/02/24 Status: Ordered rosuvastatin 40 mg oral tablet 40 mg = 1 tab(s), Oral, HS, 0 Refill(s) Start Date: 03/02/24 Status: Ordered Zetia 10 mg oral tablet 10 mg = 1 tab(s), Oral, Daily, 0 Refill(s) Start Date: 03/02/24 Status: Ordered Problem List Condition Confirmation Course Effective Dates Status Health St atus Informant CAD (coronary artery disease) Confirmed Active GERD (gastroesophageal reflux disease) Confirmed Active S/P AVR Confirmed Active Hx of CABG Confirmed Active HLD (hyperlipidemia) Confirmed Active HTN (hypertension) Confirmed Active PUD (peptic ulcer disease) Confirmed Active DM2 (diabetes mellitus, type 2) Confirmed Active Social History Social History Type Response Tobacco Never tobacco user T obacco Use:. Sex Patient Care team information Care Team Personnel Name: Tamia Tsai Position: CAH No Access Member Role: Informed Provider Address: Address: [address] [place] [phone] [place] Care Team Related Persons Name: SEBAS PAYNE Address: Home [address] [place] [phone] Name: SUJATA PAYNE
--- OUTSIDE RECORDS SUMMARY | 2024-04-02 21:08 | XMS_ITS ---
Author Organization Unknown Address [address] [place] [phone] Phone Care Team Providers Care Cotton Puller Name Role Phone AVERY Tobais Attending Unavailable MARRY De La Paz Primary [...] Start Date Code Code Sys tem 12/25/2023 [id number] SNOMED-CT Personal Care Team Section Performer Name Performer Role Active Date Inactive Da te
--- OUTSIDE RECORDS SUMMARY | 2024-04-02 21:08 | XMS_ITS ---
Author Organization Unknown Address [address] [place] [phone] Phone Care Team Providers Care Registered Nurse Bone Marrow Transplant Name Role Phone AVERY Tobias Attending Unavailable [...] Start Date Code Code Sys tem 10/14/2023 [id number] SNOMED-CT Personal Care Team Section Performer Name Performer Role Active Date Inactive Da te
--- OUTSIDE RECORDS SUMMARY | 2024-04-02 21:08 | XMS_ITS ---
Author Organization Unknown Address [address] [place] [phone] Phone Care Team Providers Care Inflatable Buildings Laminator Name Role Phone AVERY Tobias Attending Unavailable [...] Code Sys tem Aortic stenosis, non-rheumatic 12/11/2022 [id number] SNOMED-CT Personal Care Team Section Performer Name Performer Role Active Date Inactive Da te
--- OUTSIDE RECORDS SUMMARY | 2024-04-02 21:08 | XMS_ITS ---
Author Organization Unknown Address [address] [place] [phone] Phone Care Team Providers Care Film Inspector Name Role Phone AVERY Tobias Attending Unavailable MARRY De La Paz Primary Unavailable Results NM MPI COMPLETE - Completed: 04/24/2023 14:16 LOINC: [place], [place] [address] PACS TRUCKING CONTRACTOR REPORT Patient Name: BURTON PAYNE MRN: Sex: : Age: [id number] M 1950 72 Account: Accession: Admit: StayType: [id number] 04/24/2023 CLINIC Ordered: Order ID: Submitted: Ordering Provider: 04/24/2023 11:30 [id number] P Sudeep Lackey Completed: Technologist: Resulted: 04/24/2023 14:16 HTP 04/24/2023 15:34 Vasodilator/Pharmacologic Nuclear Stress Test Date: 04/24/2023 10:21 AM EDT Ordering Provider: Sudeep aLckey Referring Provider: SUDEEP LACKEY ID number: [id number] Date of : 1950 Age: 72Y Indication [...] Sys tem Atherosclerotic heart diseas e of [place] coronary artery without angina pectoris 04/24/2023 SNOMED-CT Personal Care Team Section Performer Name Performer Role Active Date Inactive Da ted
--- OUTSIDE RECORDS SUMMARY | 2024-04-02 21:08 | XMS_ITS ---
Author Organization Unknown Address [address] [place], [place] [phone] Phone Care Team Providers Care Diesel Mechanic Name Role Phone AVERY Tobias Attending Unavailable MARRY De La Paz Primary Unavailable Results CBC W/ DIFFERENTIAL* - Colle ct Date/Time: 04/30/2023 10:40 [facility] ID: [id number] [address] [place], [place], [address] LOINC: 60938-4 Test Value Unit Reference Range Code Code System Flag WBC 7.08 th/cmm L=5.00 H=10.00 6690-2 LOINC NEUT % 61.7 % L=40.0 H=80.0 LYMPH % 21.6 % L=10.0 H=50.0 MONO % 12.4 % L=2.0 H=12.0 34399-6 LOINC H EOS % 3.2 % L=0.0 H=8.0 BASO % 1.0 % L=0.0 H=3.0 IG % 0.1 % L=0.0 H=1.1 2514-8 LOINC NRBC % 0.0 % L=0.0 H=0.0 92366-9 LOINC NEUT abs count 4.4 th/cmm L=1.6 H=8.4 751-8 LOINC LYMPH abs count 1.5 th/cmm L=1.5 H=4.0 731-0 LOINC MONO abs count 0.9 th/cmm L=0.2 H=1.0 742-7 LOINC EOS abs count 0.2 th/cmm L=0.0 H=0.5 711-2 LOINC BASO abs count 0.1 th/cmm L=0.0 H=0.2 704-7 LOINC IG abs count 0.0 th/cmm L=0.0 H=0.1 06637-0 LOINC NRBC abs count 0.0 mil/cmm L=0.0 H=0.0 75487-5 LOINC RBC 5.20 mil/cmm L=4.30 H=6.20 789-8 [...] PANEL (BMP) - Collect Date/Time: 04/30/2023 10:40 [facility] ID: [id number] [address] [place], [place], [address] LOINC: 17812-0 Test Value Unit Reference Range Code Code [...] H=34 2028-9 LOINC ANION GAP 9.2 mmol/L 13689-3 LOINC CALCIUM SERUM 9.7 mg/dL L=8.2 H=10.2 55440-5 LOINC AGE 72 years eGFR (non-Afr.Amer.) 53 mL/min 69783-8 [facility] eGFR (Afr-Belgian) 64 mL/min 74271-7 [facility] Social History Type Status Start Date End [...]
--- OUTSIDE RECORDS SUMMARY | 2024-04-02 21:08 | XMS_ITS ---
Author Organization Unknown Address [address] [place] [phone] Phone Care Team Providers Care Equipment Hire Manager Name Role Phone AVERY Tobias Attending [...] Start Date Code Code Sys tem 08/13/2023 [id number] SNOMED-CT Personal Care Team Section Performer Name Performer Role Active Date Inactive Da te
--- OUTSIDE RECORDS SUMMARY | 2024-04-02 21:08 | XMS_ITS | Data Portability ---
Author Organization [facility] Address [address] [place] [address] Care Team Providers Care Business Information Consultant Name Role Phone TAMIA TAYLOR Primary Care Provider MATEO GLASS [employer] Designer DOWELL KATHLEEN School Janitor DELPHINE OLSEN [facility] Worker [phone] WINTER LACKEY OTHER DEISY WALDEN [employer] Team Member/Semi Conductor Assembler [facility] RECYCLABLE MATERIALS COLLECTOR-RAJEEV LEVIN Seafood Team Member/Nutritioni BURT DASILVA Dentist LILI FARRIS [facility] [phone] Assessment Encounter Date Assessment Date Assessment LastModified by Organization Details LastModified Time 01/31/2024 01/31/2024 The patient presents with left lower back pain and left leg pain, which are suggestive of lumbago with sciatica. The history and physical examination findings indicate the possible involvement of nerve compression, potentially due to a bulging disc or muscle tightness. The total time devoted to today's encounter, including both the cuqj-iu-bcya time with the patient and/or family/caregiv er and ewy-xzhx-fq-fa ce time I personally spent is 30 minutes. Not available 01/31/2024 17:04:02 02/07/2024 02/07/2024 The patient, a 73-year-old male, [...] and an MRI. Not available 02/07/2024 10:11:40 02/21/2024 02/21/2024 The patient is a 73-year-old male with lumbar spondylosis with myelopathy , presenting with low back pain and left leg pain. There has been some improvement in the last three to four days, possibly due to the medrol dose jacky and cyclobenzaprin e. The patient has been referred to a spine center for further evaluation and potential treatment options. Not available 02/21/2024 13:29:08 Plan of Treatment Reminders Order Date Submit Date Provider Last Modified By Organization Details Last Modified Time Details Appointments Follow Up 30 2023 11:30A M Not available Not available Not available Lab hemoglobi n A1C, fingersti ck 2023 024 [facility] [place], [address] [place] [address], [address], 10/25/2023 08:55:56 hemoglobi n A1C, fingersti ck 2023 024 [facility] [place], [address] [place] [address], [address], 02/07/2024 09:17:18 drug screen, urine 2023 024 [facility] [place], [address] [place] [address], [address], 02/21/2024 13:10:09 magnesium , serum or plasma [email or web address] [facility] (Registration ), [address] [facility] [place], [address], 03/27/2024 15:12:27 iron + TIBC + ferritin, serum [address] [facility] (Registration ), [address] [place] [address] [place], [address], 03/27/2024 15:11:36 folate, serum [address] [facility] (Registration ), [address] [place] [address] [place], [address], 03/27/2024 15:11:56 vitamin B12, serum [address] [facility] (Registration ), [address] [place] [address] [place], [address], 03/27/2024 15:12:10 hemoglobi n A1C, fingersti ck 2023 024 [email or web address] 0 [facility] [place], [address], [place], [address], 03/26/2024 15:17:47 CMP, serum or plasma 2023 024 [facility] (Registration ), [address] [place] [address] [address] [facility] [place], [address], 03/26/2024 20:27:03 CBC w/ auto diff 2023 024 [facility] (Registration ), [address] [place] [address] [address] [facility] [place], [address], 03/26/2024 19:44:45 Referral physical therapist referral [email or web address] [facility], [address] [place] [address] , [address], [address], 04/01/2024 08:57:[address] referral 2023 024 [facility], [address] [place], [address], 03/31/2024 18:40:27 Procedures None recorded. Surgeries None recorded. Imaging MRI, lumbar spine, w/o contrast [address] [facility], [address], [place], [address], 03/04/2024 07:57:33 XR, lumbar spine 2023 024 [facility], [address], [place], [address], 02/04/2024 08:35:54 Medication Orders Nitrostat 0.4 mg sublingua l tablet 2023 024 [employer] [facility], [address], [place], [address], 10/25/2023 08:24:22 cyclobenz aprine 5 mg tablet 2023 024 [email or web address] 0 [employer] [facility], [address] [facility] [place], [address], 03/26/2024 14:10:19 Medrol (Jacky) 4 mg tablets in a dose pack 2023 [address]24 [email or web address] [employer] [address], [address] [facility] [place], [address], 03/02/2024 16:10:59 Medrol (Jacky) 4 mg tablets in a dose pack 2023 024 [employer] [facility], [address] [facility] [place], [address], 03/02/2024 16:11:03 cyclobenz aprine 5 mg tablet 2023 024 [employer] [address], [address] [place], [address], 03/26/2024 14:10:23 ketoconaz ole 2 % topical cream 2023 024 [employer] [address], [address] [facility], [place], [address], 02/07/2024 09:12:59 tramadol 50 mg tablet 2023 024 [employer] [address], [address] [facility], [place], [address], 02/21/2024 10:39:14 pantopraz ole 40 mg tablet,de layed release 2023 024 [employer] [address], [address] [facility], [place], [address], 03/26/2024 16:22:08 cephalexi n 500 mg capsule 2023 024 [employer] [address], [address] [facility], [place], [address], 03/26/2024 14:51:45 Patient TargetsNo targets recorded. Patient Instructions Encounter Date Encounter Id Patient Instructions Last Modified By Organization Details Last Modified Time 10/25/2023 [id number] diet Not available 10/24 08:24:18 exercise Not available 2023 08:24:18 You had blood wo rk done today. Please allow up to 2 weeks to hear about results. inc ozempic to 0.75mg weekly, take a 0.25mg injection with a 0.5mg injection increase exercise Call with any questions or concerns Not available 10/25/2023 08:28:10 01/31/2024 [id number] You have been started on {{prednisone a prednisone taper methylprednis one (medrol dose jakcy)*}}. Take as instructed on the bottle. While on prednisone you can feel hungry, thirsty, energized (take in the morning with food) and can affect mood. It is important to avoid NSAIDs (ie ibuprofen, aleve, advil, naproxen etc) while on prednisone. You can take tylenol/acetaminoph en if needed for pain relief 2 tablets every 6 to 8 hours (3 doses in 24 hours). You have been prescribed cyclobenzaprine. Take as directed on the bottle. This medication can make you drowsy or dizzy. Do not drive or operate heavy machinery while on this medication. It is okay to take it just at bedtime if you need to drive during the day. Go to {{[facility] ([facility])* [facility] ([facility]) [facility] ([facility] ([facility]) [facility] ([facility]) [facility] ([facility]) [facility]}} for {{fasting blood work (water or black coffee only for at least 8 hours) bloodwork X- ray* }} (no appointment needed), please allow up to 2 weeks to hear about results {{[facility] ([facility])* [facility] ([facility]) [facility] ([facility]) [facility] ([facility]) [facility] ([facility]) [facility] ([facility]) [facility]}} will contact you to schedule {{bone density CT scan Heart Monitor mammogram M RI* Ultrasound Stre ss Test Xray}}. If you do not receive a call in 7-10 days please contact the office. 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 ([facility]) [facility] ([facility]) [facility]}}. If you do not receive a call to schedule an appointment in 7-10 days, please contact our learning center coordinator at call me if blood sugars are greater than 300 keep appt as scheduled for next week Call with any questions or concerns Not available 01/31/2024 15:41:51 02/07/2024 [id number] You have been started on {{prednisone a prednisone taper methylprednis one (medrol dose jacky)*}}. Take as instructed on the bottle. While on prednisone you can feel hungry, thirsty, energized (take in the morning with food) and can affect mood. It is important to avoid NSAIDs (ie ibuprofen, aleve, advil, naproxen etc) while on prednisone. You can take tylenol/acetaminoph en if needed for pain relief. You have [...] weeks Call with any questions or concerns [email or web address] Not available 02/07/2024 09:14:39 02/21/2024 [id number] let me know if y ou do not hear from [facility] in 1-2 weeks prescription for tramadol 1 tablet twice daily as needed for SEVERE pain only. you can continue with tylenol 1000mg every 6-8 hours max of 3 doses in 24 hours continue to do activity and stretches as tolerated continue with cyclobenzaprine (muscle relaxer) at bedtime as needed Call with any questions or concerns Not available 02/21/2024 10:41:03 03/26/2024 [id number] cephalexin 500mg 1 capsule three times per day for 7 days continue with antifungal cream twice daily keep appointment with Dr Lackey as scheduled. ask him about aspirin and plavix start on ozempic 0.25mg once weekly for 2 weeks then increase to 0.5mg once weekly A referral has been placed for {{Allergy Audiology Bariatric Cardiolo gy Colonoscopy Diet ician Endocrinology ENT Gastroenterolo gy General Surgery Genetics He matology/Oncology N ephrology Neurology * BIOMETRY TEACHER Optometry/ Ophthalmology Ortho pedics Pain Clinic Physical Therapy Podiatry Ps ychiatry Pulmonolog y Rheumatology Slee p Clinic Spine Clinic Urology Vasc ular Surgery}} at {{[facility] ([facility]) [facility] ([facility])* [facility] ([facility]) [facility] ([facility]) [facility] ([facility]) [facility] ([facility]) [facility]}}. If you do not receive a call to schedule an appointment in 7-10 days, please contact our learning center coordinator at You had blood work done today. Please allow up to 2 weeks to hear about results. Not available 03/26/2024 14:57:27 Reason for Referral Urologist Referral for Prost ate specific antigen above reference range elevated PSA 8.7 and nocturia. recently treated for cystitis. 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 Referring Physician: Tamai Tayolr [facility], Encounter Date: 03/26/2024 Results Created Date Observation Date Name Description Value Unit Range Abnormal Flag Note LastModifiedBy Organization Detail LastModifiedTime 10/25/19 24 10/25/2023 hemog lobin A1C, finge rstic k hemoglobin A1C 7.1 % <5.7 Not Available [facility] [address], [place], [address], 10/24/2023 14:23:38 02/07/20 24 02/07/2024 hemog lobin A1C, finge rstic k hemoglobin A1C 7.5 % <5.7 Not Available [facility] [address], [place], [address], 02/07/2024 08:53:37 02/21/20 24 02/21/2024 drug scree n, urine Amphetamines : negati ve Not Available [facility] [address] [address], [place], [address], 02/21/2024 10:39:26 02/21/20 24 02/21/2024 drug scree n, urine Barbiturates : negati ve Not Available [facility] [address] [address], [place], [address], 02/21/2024 10:39:26 02/21/20 24 02/21/2024 drug scree n, urine BUP: negati ve Not Available [facility] [address] [address], [place], [address], 02/21/2024 10:39:26 02/21/20 24 02/21/2024 drug scree n, urine Benzodiazepi david: negati ve Not Available [facility] [address] [address], [place], [address], 02/21/2024 10:39:26 02/21/20 24 02/21/2024 drug scree n, urine Cocaine: negati ve Not Available [facility] [address] [address], [place], [address], 02/21/2024 10:39:26 02/21/20 24 02/21/2024 drug scree n, urine EDDP (Methadone Metabolite) negati ve Not Available [facility] [address] [address], [place], [address], 02/21/2024 10:39:26 02/21/20 24 02/21/2024 drug scree n, urine (MET) Methamphetam ine: negati ve Not Available [facility] [address] [address], [place], [address], 02/21/2024 10:39:26 02/21/20 24 02/21/2024 drug scree n, urine MDMA: negati ve Not Available [facility] [address] [address], [place], [address], 02/21/2024 10:39:26 02/21/20 24 02/21/2024 drug scree n, urine MTD (Methadone): negati ve Not Available [facility] [address] [address], [place], [address], 02/21/2024 10:39:26 02/21/20 24 02/21/2024 drug scree n, urine [id number] (Opiate): negati ve Not Available [facility] [address] [address], [place], [address], 02/21/2024 10:39:26 02/21/20 24 02/21/2024 drug scree n, urine OXY (Oxycodone): negati ve Not Available [facility] [address] [address], [place], [address], 02/21/2024 10:39:26 02/21/20 24 02/21/2024 drug scree n, urine TCA: positi ve Not Available [facility] [address] [address], [place], [address], 02/21/2024 10:39:26 02/21/20 24 02/21/2024 drug scree n, urine THC: negati ve Not Available [facility] [address] [address], [place], [address], 02/21/2024 10:39:26 03/26/20 24 03/26/2024 COMPL ETE BLOOD COUNT W/DIF F WBC 6.05 10_3/ uL 4.4-10 .8 normal Not Available [address] [place], [address] 03/26/2024 19:44:45 03/26/2003/26/2024 COMPL ETE BLOOD COUNT W/DIF F RBC 3.89 10_6/ uL 4.36-5 .78 low Not Available [address] [place], [address] 03/26/2024 19:44:45 03/26/20 24 03/26/2024 COMPL ETE BLOOD COUNT W/DIF F HGB 10.6 g/dL 13.5-1 7.5 low Not Available [address] [place], [address] 03/26/2024 19:44:45 03/26/2003/26/2024 COMPL ETE BLOOD COUNT W/DIF F HCT 32.8 % 40.0-5 0.0 low Not Available [address] [place], [address] 03/26/2024 19:44:45 03/26/2003/26/2024 COMPL ETE BLOOD COUNT W/DIF F MCV 84 fL 80-95 normal Not Available [address] [place], [address] 03/26/2024 19:44:45 03/26/2003/26/2024 COMPL ETE BLOOD COUNT W/DIF F MCH 27.2 pg 27.0-3 3.0 normal Not Available [address] [place], [address] 03/26/2024 19:44:45 03/26/2003/26/2024 COMPL ETE BLOOD COUNT W/DIF F MCHC 32.3 % 32.0-3 6.0 normal Not Available [address] [place], [address] 03/26/2024 19:44:45 03/26/2003/26/2024 COMPL ETE BLOOD COUNT W/DIF F RDW 16.5 % 11.8-1 4.1 high Not Available [address] [place], [address] 03/26/2024 19:44:45 03/26/20 24 03/26/2024 COMPL ETE BLOOD COUNT W/DIF F platelet count 246 10_3/ uL 130-40 0 normal Not Available [address] [place], [address] 03/26/2024 19:44:45 03/26/20 24 03/26/2024 COMPL ETE BLOOD COUNT W/DIF F MPV 11.6 fL 8.0-11 .0 high Not Available [address] [place], [address] 03/26/2024 19:44:45 03/26/20 24 03/26/2024 COMPL ETE BLOOD COUNT W/DIF F neutrophils % 64.0 % Not Available [address] [place], [address] 03/26/2024 19:44:45 03/26/20 24 03/26/2024 COMPL ETE BLOOD COUNT W/DIF F lymphocytes % 17.7 % Not Available [address] [place], [address] 03/26/2024 19:44:45 03/26/20 24 03/26/2024 COMPL ETE BLOOD COUNT W/DIF F monocytes % 11.9 % Not Available [address] [place], [address] 03/26/2024 19:44:45 03/26/20 24 03/26/2024 COMPL ETE BLOOD COUNT W/DIF F eosinophils % 4.8 % Not Available [address] [place], [address] 03/26/2024 19:44:45 03/26/20 24 03/26/2024 COMPL ETE BLOOD COUNT W/DIF F basophils % 1.3 % Not Available [address] [place], [address] 03/26/2024 19:44:45 03/26/20 24 03/26/2024 COMPL ETE BLOOD COUNT W/DIF F immature grans % 0.3 % Not Available [address] [place], [address] 03/26/2024 19:44:45 03/26/20 24 03/26/2024 COMPL ETE BLOOD COUNT W/DIF F nucleated RBC 0.0 % 0.0-0. 3 normal Not Available [address] [place], [address] 03/26/2024 19:44:45 03/26/20 24 03/26/2024 COMPL ETE BLOOD COUNT W/DIF F absolute neutrophil count 3.87 10_3/ uL 1.2-6. 7 normal Not Available [address] [place], [address] 03/26/2024 19:44:45 03/26/20 24 03/26/2024 COMPL ETE BLOOD COUNT W/DIF F absolute lymphocyte count 1.07 10_3/ uL 1.2-3. 4 low Not Available [address] [place], [address] 03/26/2024 19:44:45 03/26/20 24 03/26/2024 COMPL ETE BLOOD COUNT W/DIF F absolute monocyte count 0.72 10_3/ uL 0.1-0. 8 normal Not Available [address] [place], [address] 03/26/2024 19:44:45 03/26/20 24 03/26/2024 COMPL ETE BLOOD COUNT W/DIF F absolute eosinophil count 0.29 10_3/ uL 0.0-0. 7 normal Not Available [address] [place], [address] 03/26/2024 19:44:45 03/26/2003/26/2024 COMPL ETE BLOOD COUNT W/DIF F absolute basophil count 0.08 10_3/ uL 0.0-0. 2 normal Not Available [address] [place], [address] 03/26/2024 19:44:45 03/26/2003/26/2024 IRON AND IBCT iron 50 ug/dL 65-175 low Not Available Reji [address] [place], [address] 03/26/2024 20:05:53 03/26/20 24 03/26/2024 IRON AND IBCT total iron binding capacity 400 ug/dL 250-45 0 normal Not Available [address] [place], [address] 03/26/2024 20:05:53 03/26/20 24 03/26/2024 IRON AND IBCT transferrin sat 13 % 20-55 low Not Available Mauricio bloom [address] [place], [address] 03/26/2024 20:05:53 03/26/20 24 03/26/2024 COMPR EHENS MARIELENA METAB OLIC PANEL calcium 9.1 mg/dL 8.5-10 .1 normal Not Available [address] [place], [address] 03/26/2024 20:27:03 03/26/20 24 03/26/2024 COMPR EHENS MARIELENA METAB OLIC PANEL glucose 121 mg/dL 74-106 high Not Available Reji black [address] [place], [address] 03/26/2024 20:27:03 03/26/20 24 03/26/2024 COMPR EHENS MARIELENA METAB OLIC PANEL BUN 21 mg/dL 7-18 high Not Available Reji [address] [place], [address] 03/26/2024 20:27:03 03/26/20 24 03/26/2024 COMPR EHENS MARIELENA METAB OLIC PANEL creatinine 1.4 mg/dL 0.70-1 .30 high Not Available [address] [place], [address] 03/26/2024 20:27:03 03/26/20 24 03/26/2024 COMPR EHENS MARIELENA METAB OLIC PANEL estimated GFR 52.74 mL/min /1.73m 2 The eGFR is calcu lated from a serum creat inine using the CKD-E PI 2020 equat ion. Other varia bles requi red for the equat ion are gende r and age; this equat ion does not inclu de a race coeff icien t. This equat ion has simil ar overa ll perfo rmanc e to previ ous equat ions excep t value s may diffe r, in parti cular , in patie nts with highe r value s of eGFR and young er-ag ed adult s. Not Available [address] [place], [address] 03/26/2024 20:27:03 03/26/20 24 03/26/2024 COMPR EHENS MARIELENA METAB OLIC PANEL total protein 8.0 g/dL 6.4-8. 2 normal Not Available [address] [place], [address] 03/26/2024 20:27:03 03/26/20 24 03/26/2024 COMPR EHENS MARIELENA METAB OLIC PANEL albumin 3.5 g/dL 3.4-5. 0 normal Not Available [address] [place], [address] 03/26/2024 20:27:03 03/26/20 24 03/26/2024 COMPR EHENS MARIELENA METAB OLIC PANEL bilirubin, total 0.53 mg/dL 0.2-1. 0 normal Not Available [address] [place], [address] 03/26/2024 20:27:03 03/26/20 24 03/26/2024 COMPR EHENS MARIELENA METAB OLIC PANEL alk phos 91 U/L 46-116 normal Not Available [address] [place], [address] 03/26/2024 20:27:03 03/26/20 24 03/26/2024 COMPR EHENS MARIELENA METAB OLIC PANEL sodium 133 mmol/ L 136-14 5 low Not Available [address] [place], [address] 03/26/2024 20:27:03 03/26/20 24 03/26/2024 COMPR EHENS MARIELENA METAB OLIC PANEL potassium 4.0 mmol/ L 3.5-5. 1 normal Not Available [address] [place], [address] 03/26/2024 20:27:03 03/26/20 24 03/26/2024 COMPR EHENS MARIELENA METAB OLIC PANEL chloride 98 mmol/ L 98-107 normal Not Available [address] [place] [place], [address] 03/26/2024 20:27:03 03/26/20 24 03/26/2024 COMPR EHENS MARIELENA METAB OLIC PANEL CO2 25.4 mmol/ L 21.0-3 2.0 normal Not Available [address] [place], [address] 03/26/2024 20:27:03 03/26/20 24 03/26/2024 COMPR EHENS MARIELENA METAB OLIC PANEL anion gap 9.6 mmol/ L 3-11 normal Not Available [address] [place], [address] 03/26/2024 20:27:03 03/26/20 24 03/26/2024 COMPR EHENS MARIELENA METAB OLIC PANEL AST 28 U/L 15-37 normal Not Available [address] [place], [address] 03/26/2024 20:27:03 03/26/20 24 03/26/2024 COMPR EHENS MARIELENA METAB OLIC PANEL ALT 28 U/L 16-63 normal Not Available [address] [place], [address] 03/26/2024 20:27:03 03/26/20 24 03/26/2024 SIDNEY TIN ferritin 60 NG/mL 26-388 normal Not Available [address] [place], [address] 03/26/2024 20:27:04 03/26/20 24 03/26/2024 MAGNE SIUM magnesium 1.2 mg/dL 1.8-2. 4 low Not Available [address] [place], [address] 03/26/2024 20:27:04 03/26/20 24 03/26/2024 VITAM IN B12 vitamin B12 210 pg/mL 193-98 6 normal Not Available [address] [place], [address] 03/26/2024 20:27:05 03/26/20 24 03/26/2024 FOLAT E folate > 20.0 NG/mL 8.6-20 .0 high Not Available [address] [place], [address] 03/26/2024 20:27:05 03/26/20 24 03/26/2024 hemog lobin A1C, reji caba hemoglobin A1C 7.3 % <5.7 Not Available [facility] [address], [place], [address], 03/24/2024 12:13:44 04/02/20 24 04/02/2024 NT-HI OBNP nt-probnp 3194 pg/mL <300 high NT-pr oBNP value s <300 pg/mL have a 98% negat marielena predi ctive value for exclu ding acute conge stive heart failu re (CHF) . NT-pr oBNP value s >450 pg/mL are consi stent with CHF in adult s <50 years of age. A diagn ostic cut-o ff of 900 pg/mL has been sugge sted in adult s >50 years of age in the absen ce of renal failu re. A cut-o ff of 1200 pg/mL for patie nts with an eGFR less than 60 yield s a diagn ostic sensi tivit y and speci ficit y of 89% and 72% for acute conge stive failu re. NOTE: Supra -phys iolog ic doses of Bioti n(B7) may cause false negat marielena resul ts. Not Available [address] [place], [address] 04/02/2024 20:11:22 04/02/20 24 04/02/2024 TROPO ZAC I troponin I 24 NG/L <or=76 An eleva rose marie/a bnorm al tropo zac value above 51ng/ L for Femal e and above 76ng/ L for Male( which is the 99th perce ntile cutof f of a jacquelin l, healt hy refer ence popul ation ) must be inter prete d in the radha xt of the clini candida prese ntati on. Clini candida and labor atory corre latio n is requi red to evalu ate for an acute myoca rdial infar ction . The resul ts of this assay can be false ly lower ed due to the consu mptio n of Bioti n (Luana min B7). Not Available [address] [place], [address] 04/02/2024 20:11:22 04/02/20 24 04/02/2024 COMPR EHENS MARIELENA METAB OLIC PANEL calcium 9.4 mg/dL 8.5-10 .1 normal Not Available [address] [place], [address] 04/02/2024 20:11:21 04/02/20 24 04/02/2024 COMPR EHENS MARIELENA METAB OLIC PANEL glucose 159 mg/dL 74-106 high Not Available [facility] [address] [place], [address] 04/02/2024 20:11:21 04/02/20 24 04/02/2024 COMPR EHENS MARIELENA METAB OLIC PANEL BUN 24 mg/dL 7-18 high Not Available [facility] black [address] [facility] [place], [address] 04/02/2024 20:11:21 04/02/20 24 04/02/2024 COMPR EHENS MARIELENA METAB OLIC PANEL creatinine 1.3 mg/dL 0.70-1 .30 normal Not Available [address] [place], [address] 04/02/2024 20:11:21 04/02/20 24 04/02/2024 COMPR EHENS MARIELENA METAB OLIC PANEL estimated GFR 57.65 mL/min /1.73M 2 The eGFR is calcu lated from a serum creat inine using the CKD-E PI 2020 equat ion. Other varia bles requi red for the equat ion are gende r and age; this equat ion does not inclu de a race coeff icien t. This equat ion has simil ar overa ll perfo rmanc e to previ ous equat ions excep t value s may diffe r, in parti cular , in patie nts with highe r value s of eGFR and young er-ag ed adult s. Not Available [address] [place], [address] 04/02/2024 20:11:21 04/02/20 24 04/02/2024 COMPR EHENS MARIELENA METAB OLIC PANEL total protein 7.3 g/dL 6.4-8. 2 normal Not Available [address] [place], [address] 04/02/2024 20:11:21 04/02/20 24 04/02/2024 COMPR EHENS MARIELENA METAB OLIC PANEL albumin 3.3 g/dL 3.4-5. 0 low Not Available [address] [place], [address] 04/02/2024 20:11:21 04/02/20 24 04/02/2024 COMPR EHENS MARIELENA METAB OLIC PANEL bilirubin, total 0.32 mg/dL 0.2-1. 0 normal Not Available [address] [place], [address] 04/02/2024 20:11:21 04/02/20 24 04/02/2024 COMPR EHENS MARIELENA METAB OLIC PANEL alk phos 73 U/L 46-116 normal Not Available [address] [place], [address] 04/02/2024 20:11:21 04/02/20 24 04/02/2024 COMPR EHENS MARIELENA METAB OLIC PANEL sodium 134 mmol/ L 136-14 5 low Not Available [address] [place], [address] 04/02/2024 20:11:21 04/02/20 24 04/02/2024 COMPR EHENS MARIELENA METAB OLIC PANEL potassium 3.9 mmol/ L 3.5-5. 1 normal Not Available [address] [place], [address] 04/02/2024 20:11:21 04/02/20 24 04/02/2024 COMPR EHENS MARIELENA METAB OLIC PANEL chloride 99 mmol/ L 98-107 normal Not Available [address] [place], [address] 04/02/2024 20:11:21 04/02/20 24 04/02/2024 COMPR EHENS MARIELENA METAB OLIC PANEL CO2 26.9 mmol/ L 21.0-3 2.0 normal Not Available [address] [place], [address] 04/02/2024 20:11:21 04/02/20 24 04/02/2024 COMPR EHENS MARIELENA METAB OLIC PANEL anion gap 8.1 mmol/ L 3-11 normal Not Available [address] [place], [address] 04/02/2024 20:11:21 04/02/20 24 04/02/2024 COMPR EHENS MARIELENA METAB OLIC PANEL AST 19 U/L 15-37 normal Not Available Reji black [address] [place], [address] 04/02/2024 20:11:21 04/02/20 24 04/02/2024 COMPR EHENS MARIELENA METAB OLIC PANEL ALT 23 U/L 16-63 normal Not Available Reji [address] [place], [address] 04/02/2024 20:11:21 04/02/20 24 04/02/2024 COMPL ETE BLOOD COUNT W/DIF F WBC 5.92 10_3/ uL 4.4-10 .8 normal Not Available [address] [place], [address] 04/02/2024 19:48:23 04/02/20 24 04/02/2024 COMPL ETE BLOOD COUNT W/DIF F RBC 3.70 10_6/ uL 4.36-5 .78 low Not Available [address] [place], [address] 04/02/2024 19:48:23 04/02/20 24 04/02/2024 COMPL ETE BLOOD COUNT W/DIF F HGB 10.0 g/dL 13.5-1 7.5 low Not Available [address] [place], [address] 04/02/2024 19:48:23 04/02/20 24 04/02/2024 COMPL ETE BLOOD COUNT W/DIF F HCT 31.2 % 40.0-5 0.0 low Not Available [address] [place], [address] 04/02/2024 19:48:23 04/02/20 24 04/02/2024 COMPL ETE BLOOD COUNT W/DIF F MCV 84 fL 80-95 normal Not Available Reji [address] [place], [address] 04/02/2024 19:48:23 04/02/20 24 04/02/2024 COMPL ETE BLOOD COUNT W/DIF F MCH 27.0 pg 27.0-3 3.0 normal Not Available [address] [place], [address] 04/02/2024 19:48:23 04/02/20 24 04/02/2024 COMPL ETE BLOOD COUNT W/DIF F MCHC 32.1 % 32.0-3 6.0 normal Not Available [address] [place], [address] 04/02/2024 19:48:23 04/02/20 24 04/02/2024 COMPL ETE BLOOD COUNT W/DIF F RDW 16.4 % 11.8-1 4.1 high Not Available [address] [place], [address] 04/02/2024 19:48:23 04/02/20 24 04/02/2024 COMPL ETE BLOOD COUNT W/DIF F platelet count 196 10_3/ uL 130-40 0 normal Not Available [address] [place], [address] 04/02/2024 19:48:23 04/02/20 24 04/02/2024 COMPL ETE BLOOD COUNT W/DIF F MPV 10.7 fL 8.0-11 .0 normal Not Available [address] [place], [address] 04/02/2024 19:48:23 04/02/20 24 04/02/2024 COMPL ETE BLOOD COUNT W/DIF F neutrophils % 60.5 % Not Available [address] [place], [address] 04/02/2024 19:48:23 04/02/20 24 04/02/2024 COMPL ETE BLOOD COUNT W/DIF F lymphocytes % 21.3 % Not Available [address] [place], [address] 04/02/2024 19:48:23 04/02/20 24 04/02/2024 COMPL ETE BLOOD COUNT W/DIF F monocytes % 13.5 % Not Available [address] [place], [address] 04/02/2024 19:48:23 04/02/20 24 04/02/2024 COMPL ETE BLOOD COUNT W/DIF F eosinophils % 3.2 % Not Available [address] [place], [address] 04/02/2024 19:48:23 04/02/20 24 04/02/2024 COMPL ETE BLOOD COUNT W/DIF F basophils % 1.2 % Not Available [address] [place], [address] 04/02/2024 19:48:23 04/02/20 24 04/02/2024 COMPL ETE BLOOD COUNT W/DIF F immature grans % 0.3 % Not Available [address] [place], [address] 04/02/2024 19:48:23 04/02/20 24 04/02/2024 COMPL ETE BLOOD COUNT W/DIF F nucleated RBC 0.0 % 0.0-0. 3 normal Not Available [address] [place], [address] 04/02/2024 19:48:23 04/02/20 24 04/02/2024 COMPL ETE BLOOD COUNT W/DIF F absolute neutrophil count 3.58 10_3/ uL 1.2-6. 7 normal Not Available [address] [place], [address] 04/02/2024 19:48:23 04/02/20 24 04/02/2024 COMPL ETE BLOOD COUNT W/DIF F absolute lymphocyte count 1.26 10_3/ uL 1.2-3. 4 normal Not Available [address] [place], [address] 04/02/2024 19:48:23 04/02/20 24 04/02/2024 COMPL ETE BLOOD COUNT W/DIF F absolute monocyte count 0.80 10_3/ uL 0.1-0. 8 normal Not Available [address] [place], [address] 04/02/2024 19:48:23 04/02/20 24 04/02/2024 COMPL ETE BLOOD COUNT W/DIF F absolute eosinophil count 0.19 10_3/ uL 0.0-0. 7 normal Not Available [address] [place], [address] 04/02/2024 19:48:23 04/02/20 24 04/02/2024 COMPL ETE BLOOD COUNT W/DIF F absolute basophil count 0.07 10_3/ uL 0.0-0. 2 normal Not Available [address] [place], [address] 04/02/2024 19:48:23 10/18/19 24 10/14/2023 EKG order lalo ng 12 lead [facility] Mouna Roque [id number] EK TRANSC JUAN Villegas REPORT _ Accoun t: Access ion: Admit: StayTy pe: [id number] 10/14/19 [facility] Observ ation: Order ID: Submit rose marie: Denise ng Provid er: 2023 09:50 [id number] TRENT JACKSON _ [place] [id number] [facility] Cardio logy Test Date: 10-13 Pat Name: JOHNSON SANTILLAN Depart ment: Home beltran ID: [id number] Room: Gender : Jad Mendieta swapna: sherine : 1951-0 12-26 Reques rose marie By: TRENT Howard Order Number : [id number] Estefanía howard MD: Trent Lackey Measur ements Interv als [place] Rate: 62 P: 11 HI: 122 QRS: 11 QRSD: 84 T: 0 QT: 406 QTc: 412 Interp retive Statem ents Normal sinus rhythm ST & T wave abnorm ality, consid er inferi or ischem ia Compar ed to ECG 2023 08:52: 49 ST (T wave) deviat ion now presen t Possib le ischem ia now presen t Myocar dial infarc t findin g no longer presen t Electr onical ly Signed On 10-16-19 17:23: 42 EDT by Trent Lackey [email or web address] [facility] (Lab) [address] [place] [address], [address], 10/18/2023 12:14:49 12/26/19 24 12/25/2023 [facility] ng [id number] TRAN[facility] RIPTIO N REPORT _ Accoun t: Access ion: Admit: StayTy pe: [id number] [facility] Observ ation: Order ID: Submit rose marie: Denise dangelo Provid er: 2023 08:32 [id number] TRENT ARRINGTON _ [place] [id number] [facility] Cardio logy Test Date: 12-24 Pat Name: JOHNSON SANTILLAN Depart ment: Cardio logy Clinic Patien t ID: [id number] Room: Gender : M Techni swapna: [facility] : [birth year] Reques rose marie By: TRENT Howard Order Number : [id number] Estefanía howard MD: Trent Lackey [employer] Interv als [place] Rate: 63 P: 15 HI: 132 QRS: 3 QRSD: 86 T: 0 QT: 404 QTc: 413 Interp retive Statem ents Normal sinus rhythm ST & T wave abnorm ality, consid er inferi or ischem ia Compar ed to ECG 2023 09:50: 52 No signif icant change s Electr onical ly Signed On 024 10:46: 01 EDT by Trent Lackey [email or web address] [facility] (Lab) [address] [place] [address], [address], 2023 13:56:38 01/31/20 24 01/31/2024 XR, lumba r spine [...] soft tissue s are normal . IMPRES DORI: Degene rative disc and facet diseas e. Report signed by: William Bryant On 2023 16:53: [email or web address] [facility] Xray [address], [place], [address], 02/04/2024 08:35:54 02/16/20 24 02/14/2024 MR LS [...] ssion. L1-L2: Right forami nal disc protru dori causin g mild right forami nal narrow ing. No signif icant thecal sac compre ssion. L2-L3: Vine Pruner ior osteop hyte disc comple x with bilate ral facet joint arthro rober and ligame ntum flavum hypert rophy causin g modera te thecal sac compre ssion and modera te narrow ing of both neural forami na. L3-L4: Vine Pruner ior osteop hyte disc comple x with bilate ral facet joint arthro rober and ligame ntum flavum hypert rophy causin g modera te thecal sac compre ssion and modera te narrow ing of both neural forami na. There is a right forami nal disc protru dori. L4-L5: Vine Pruner ior osteop hyte disc comple x with bilate ral facet joint arthro rober and ligame ntum flavum hypert rophy causin g severe thecal sac compre ssion and modera te narrow ing of both neural forami na, more on the right side. L5-S1: Vine Pruner ior osteop hyte disc comple x with bilate ral facet joint arthro rober ligame ntum flavum hypert rophy but no signif icant thecal sac compre ssion. There is severe narrow ing of the right and modera te narrow ing of the left neural forame n. Soft tissue s: Unrema rkable . 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 Report signed by: Anthony Camilo On 2023 11:18: [email or web address], [place], [address], 02/18/2024 12:57:36 02/23/2002/23/2024 XR, chest , 1 view PROCED URE INFORM ATION: Exam: XR Chest Exam date and time: 024 9:22 AM Age: 73 years old Clinic al indica tion: Chest pain TECHNI QUE: Imagin g protoc ol: Radiol ogic exam of the chest. Views: 1 view. COMPAR NGOC: CT ABD/PE LVIS W/ CONTR NO PO 024 11:39 PM FINDIN GS: Lungs: Unrema rkable . No consol idatio n. Pleura l spaces : Unrema rkable . No pleura l effusi on. No pneumo thorax . Heart/ Medias tinum: Unrema rkable . No cardio megaly . Bones/ joints : Median sterno montez IMPRES DORI: No focal consol idatio n Report signed by: Sheeba Yang On 2023 10:36: [address], [place], [address], 02/23/2024 21:53:44 03/09/20 24 03/09/2024 CT, head [...] to clinic al indica tion); or iterat marielena recons tructi on. COMPAR NGOC: No releva [...] Soft tissue s: Unrema rkable . IMPRES DORI: No acute intrac ranial abnorm ality. Report signed by: Dorina Mojica On 2023 07:05: [email or web address] [facility] [address], [place], [address], 03/09/2024 10:07:54 03/09/2003/09/2024 XR, chest , 1 [...] : Status post median sterno montez. IMPRES DORI: Patchy perihi lar opacit ies may be infect ious etiolo gy. No focal consol idatio n to sugges t pneumo naga. Report signed by: Dorina Mojica On 2023 07:06: [email or web address] [facility] [address], [place], [address], 03/09/2024 10:07:54 03/10/20 24 03/10/2024 MRI, brain [...] hemosi christopher staini ng in the right entry level account executive ior mesial tempor al lobe involv ing hippoc ampus as well as subacu te methem oglobi n in the entry level account executive ior thalam us. There is minima l [...] l right thalam us and adjace nt entry level account executive ior limb of campus recruiting intern al capsul e which is theref [...] s: Unrema rkable as visual ized. IMPRES DORI: 1. Area of subacu te to chroni c infarc t in right entry level account executive ior mesial tempor al lobe with both subacu te and chroni c hemorr sylvain. Additi onal area of subacu te hemorr sylvain in the right entry level account executive ior thalam us. 2. Separa te area of restri cted diffus ion and acute to subacu te infarc t withou t hemorr sylvain in right latera l thalam us and adjace nt entry level account executive ior limb of campus recruiting intern al capsul e. Report signed by: Diana Riddle eyer On 2023 15:41: [address], [place], [address], 03/10/2024 16:49:36 03/11/20 24 03/11/2024 XR, chest [...] joints : Sterno montez. Old, healed right entry level account executive ior 8th rib fractu re. IMPRES DORI: Increa sing pulmon pao venous conges tion and edema in the upper lungs. Report signed by: Robin Angel On 2023 02:07: 09 [facility] [address], [place], [address], 03/12/2024 10:31:05 03/11/20 24 03/10/2024 MRI, brain , w/o contr ast CRITIC AL FINDIN G Addend um create d by Diana byers MD on 7:02:3 6 AM EDT: MOISES reyna ed report and has no questi ons. Also, techno logist replie d that [facility] has seen report . Initia l report [...] hemosi christopher staini ng in the right entry level account executive ior mesial tempor al lobe involv ing hippoc ampus as well as subacu te methem oglobi n in the entry level account executive ior thalam us. There is minima l [...] l right thalam us and adjace nt entry level account executive ior limb of campus recruiting intern al capsul e which is theref [...] s: Unrema rkable as visual ized. IMPRES DORI: 1. Area of subacu te to chroni c infarc t in right entry level account executive ior mesial tempor al lobe with both subacu te and chroni c hemorr sylvain. Additi onal area of subacu te hemorr sylvain in the right entry level account executive ior thalam us. 2. Separa te area of restri cted diffus ion and acute to subacu te infarc t withou t hemorr sylvain in right latera l thalam us and adjace nt entry level account executive ior limb of campus recruiting intern al capsul e. Report signed by: Diana Riddle eyer On 2023 07:02: 36 [facility] [address], [place], [address], 03/12/2024 10:31:04 03/11/2003/10/2024 MRI, brain , w/o [...] cted diffus ion in the medial and entry level account executive ior right tempor al lobe which has nearly resolv ed except for the 2 small linear areas. This theref ore is consis tent with subacu te to chroni c infarc t at this time. The area of subacu te hemorr sylvain in the entry level account executive ior aspect of the thalam us is locate d in area acute to subacu te infarc t in the right entry level account executive ior thalam us on prior examin ation. Restri cted diffus ion in this locati on has resolv ed. Addend um create d by Diana byers MD on 7:02:3 6 AM EDT: MOISES reyna ed report and has no questi ons. Also, techno logist replie d that [facility] has seen report . Initia l report [...] hemosi christopher staini ng in the right entry level account executive ior mesial tempor al lobe involv ing hippoc ampus as well as subacu te methem oglobi n in the entry level account executive ior thalam us. There is minima l [...] l right thalam us and adjace nt entry level account executive ior limb of campus recruiting intern al capsul e which is theref [...] s: Unrema rkable as visual ized. IMPRES DORI: 1. Area of subacu te to chroni c infarc t in right entry level account executive ior mesial tempor al lobe with both subacu te and chroni c hemorr sylvain. Additi onal area of subacu te hemorr sylvain in the right entry level account executive ior thalam us. 2. Separa te area of restri cted diffus ion and acute to subacu te infarc t withou t hemorr sylvain in right latera l thalam us and adjace nt entry level account executive ior limb of campus recruiting intern al capsul e. Report signed by: Diana Riddle eyer On 2023 14:37: [email or web address] [facility] [address], [place], [address], 03/12/2024 10:31:04 03/11/20 24 03/11/2024 CT, head [...] to clinic al indica tion); or iterat marielena recons tructi on. COMPAR NGOC: MR BRAIN WO CONTRA ST 024 2:38 PM FINDIN GS: Brain: Redemo nstrat ion of small subacu te to early chroni c infarc t involv ing the right hippoc ampus. Trace hyperd ensity along the entry level account executive ior aspect of the right thalam us and along the entry level account executive omedia l right hippoc ampus may correl [...] tissue s are unrema rkable . IMPRES DORI: 1. Redemo nstrat ion of small subacu te to early chroni c infarc t involv ing the right hippoc ampus. 2. Trace hyperd ensity along the entry level account executive ior aspect of the right thalam us and along the entry level account executive omedia l right hippoc ampus may correl ate with areas of microh emorrh age as demons trated on prior MRI. 3. Other chroni c findin gs, as above. Report signed by: Daniel Stanton On 2023 17:14: [address], [place], [address], 03/11/2024 18:42:20 03/12/20 24 03/12/2024 US extre [...] color flow Dopple r throug hout. IMPRES DORI: Chroni c thromb us with partia l compre ssibil ity in the mid and distal right femora l vein. No eviden ce of acute DVT noted. THIS IS AN ELECTR ONICAL LY VERIFI ED REPORT 024 4:27 PM: ANALILIA SAUNDERS M.D. [address], [place], [address], 03/12/2024 18:10:18 03/17/20 24 03/17/2024 XR, chest [...] CABG and aortic valve replac ement IMPRES DORI: Shifti ng multif ocal bilate ral airspa ce diseas e Report signed by: Kaye Eliot On 2023 10:21: 41 [facility] [address] , [place], [address], 03/17/2024 11:49:43 03/30/20 24 06/03/2020 XR, chest No observ ation record ed. Not Available 03/30 19:44:43 03/30/20 24 05/26/2020 XR, chest No observ ation record ed. Not Available 03/30 19:44:44 03/30/20 24 06/13/2020 XR, chest No observ ation record ed. Not Available 03/30 19:44:45 03/30/20 24 05/26/2020 imagi ng/di agnos tic resul t No observ ation record ed. Not Available 03/30 19:45:16 03/30/20 24 05/26/2020 imagi ng/di agnos tic resul t No observ ation record ed. Not Available 03/30 19:45:19 03/30/20 24 05/24/2023 imagi ng/di agnos tic resul t No observ ation record ed. Not Available 03/30 19:45:22 03/30/20 24 03/11/2020 US, echoc ardio gram No observ ation record ed. Not Available 03/30 19:45:29 03/30/20 24 03/24/2021 US, echoc ardio gram No observ ation record ed. Not Available 03/30 19:45:30 03/30/20 24 04/24/2023 nucle ar stres s test No observ ation record ed. Not Available 03/30 19:45:31 03/30/20 24 07/21/2020 imagi ng/di agnos tic resul t No observ ation record ed. Not Available 03/30 19:47:46 03/30/20 24 06/13/2020 imagi ng/di agnos tic resul t No observ ation record ed. Not Available 03/30 19:47:48 03/30/2005/17/2023 imagi ng/di agnos tic resul t No observ ation record ed. Not Available 03/30 19:47:51 03/30/20 24 03/11/2023 imagi ng/di agnos tic resul t No observ ation record ed. Not Available 03/30 19:47:55 03/30/20 24 06/03/2020 imagi ng/di agnos tic resul t No observ ation record ed. Not Available 03/30 19:47:56 03/30/20 24 06/03/2020 imagi ng/di agnos tic resul t No observ ation record ed. Not Available 03/30 19:47:57 03/30/20 24 05/26/2020 imagi ng/di agnos tic resul t No observ ation record ed. Not Available 03/30 19:47:59 03/30/20 24 06/03/2020 imagi ng/di agnos tic resul t No observ ation record ed. Not Available 03/30 19:48:00 03/30/20 24 06/03/2020 imagi ng/di agnos tic resul t No observ ation record ed. Not Available 03/30 19:48:01 03/30/20 24 04/03/2022 imagi ng/di agnos tic resul t No observ ation record ed. Not Available 03/30 19:48:07 Result Notes Documentation Provider Name and Address Organization Details Recorded Time Xr, Lumbar Spine : ABNORMAL FINDING PROCEDURE INFORMATION: Exam: XR Lumbosacral Spine Exam date and time: 01/31/2024 4:32 PM Age: 73 years old Clinical indication: Lumbago with sciatica, left TECHNIQUE: Imaging protocol: Radiologic exam of the lumbosacral spine. Views: 2 or 3 views. COMPARISON: CT ABD/PELVIS W/ CONTR NO PO 09/06/2023 11:39 PM FINDINGS: Bones/joints: There is marked narrowing of the L2-L3 disc. Marginal osteophytes are noted at multiple levels in the spine. The facet joints demonstrate mild degenerative hypertrophy and sclerosis. The vertebral body heights are maintained. Soft tissues: The extraspinous soft tissues are normal. IMPRESSION: Degenerative disc and facet disease. Report signed by: William Bryant On 01/31/2024 16:53:31 NICK diallo, [facility] 02/04/2024 08:35:54 Xr, Chest, 1 View : PROCEDURE INFORMATION: Exam: XR Chest Exam date and time: 02/23/2024 9:22 AM Age: 73 years old Clinical indication: Chest pain TECHNIQUE: Imaging protocol: Radiologic exam of the chest. Views: 1 view. COMPARISON: CT ABD/PELVIS W/ CONTR NO PO 09/06/2023 11:39 PM FINDINGS: Lungs: Unremarkable. No consolidation. Pleural spaces: Unremarkable. No pleural effusion. No pneumothorax. Heart/Mediastinum: Unremarkable. No cardiomegaly. Bones/joints: Median sternotomy IMPRESSION: No focal consolidation Report signed by: Susana Yang On 02/23/2024 10:36:18 SRIKANTH TUTTLE MD [address], [place], [address], [facility] 02/23/2024 21:53:44 Ct, Head + Brain, W/o Contrast : PROCEDURE INFORMATION: Exam: CT Head Without Contrast Exam date and time: 03/09/2024 6:35 AM Age: 73 years old Clinical indication: AMS TECHNIQUE: Imaging protocol: Computed tomography of the head without contrast. Radiation optimization: All CT scans at this facility use at least one of these dose optimization techniques: automated exposure control; mA and/or kV adjustment per patient size (includes targeted exams where dose is matched to clinical indication); or iterative reconstruction. COMPARISON: No relevant prior studies available. FINDINGS: Brain: No hemorrhage. Unremarkable white matter. No mass effect. Cerebral ventricles: No ventriculomegaly. Paranasal sinuses: Visualized sinuses are unremarkable. No fluid levels. Mastoid air cells: Visualized mastoid air cells are well aerated. Bones: Unremarkable. No acute fracture. Soft tissues: Unremarkable. IMPRESSION: No acute intracranial abnormality. Report signed by: Dorina Mojica On 03/09/2024 07:05:[address], [place], [address], [facility] 03/09/2024 10:07:54 Xr, Chest, 1 View : PROCEDURE INFORMATION: Exam: XR Chest Exam date and time: 03/09/2024 6:22 AM Age: 73 years old Clinical indication: AMS TECHNIQUE: Imaging protocol: Radiologic exam of the chest. Views: 1 view. COMPARISON: CR XR CHEST 1 VW 02/23/2024 9:22 AM FINDINGS: Lungs: Patchy perihilar opacities. No focal consolidation. Pleural spaces: No sizable pleural effusion or pneumothorax. Heart/Mediastinum: Stable cardiomediastinal silhouette. Bones/joints: Status post median sternotomy. IMPRESSION: Patchy perihilar opacities may be infectious etiology. No focal consolidation to suggest pneumonia. Report signed by: Dorina Mojica On 03/09/2024 07:06:[address], [place], [address], [facility]. 03/09/2024 10:07:54 Mri, Brain, W/o Contrast : CRITICAL FINDING PROCEDURE INFORMATION: Exam: MR Head Without Contrast Exam date and time: 03/10/2024 2:38 PM Age: 73 years old Clinical indication: Altered mental status, facial droop, lower extremity ataxia, R/O stroke TECHNIQUE: Imaging protocol: Magnetic resonance imaging of the head without contrast. COMPARISON: CT HEAD/BRAIN WO CONTRAST 03/09/2024 6:35 AM FINDINGS: Brain: There is very small linear chronic infarct in left cerebellar hemisphere. There is mixture of subacute methemoglobin chronic hemosiderin staining in the right posterior mesial temporal lobe involving hippocampus as well as subacute methemoglobin in the posterior thalamus. There is minimal persistent linear cortical increased signal on diffusion-weighted images in the mesial temporal region which likely shows low signal on ADC map and is consistent with small areas of persistent resolving restricted diffusion in the subacute to chronic infarct. There is also a separate area of restricted diffusion in the lateral right thalamus and adjacent posterior limb of internal capsule which is therefore consistent with an additional area of acute to subacute and more recent lacunar infarct. This shows no blood products. Few small areas of increased cerebral white matter FLAIR signal consistent with mild microvascular change. Cerebral ventricles: Normal. No ventriculomegaly. Bones: Unremarkable. Paranasal sinuses: Normal as visualized. No acute sinusitis. Mastoid air cells: No significant mastoid effusion. Orbital cavities: There have been bilateral intraocular lens replacements likely related to cataract surgery. Soft tissues: Unremarkable as visualized. IMPRESSION: 1. Area of subacute to chronic infarct in right posterior mesial temporal lobe with both subacute and chronic hemorrhage. Additional area of subacute hemorrhage in the right posterior thalamus. 2. Separate area of restricted diffusion and acute to subacute infarct without hemorrhage in right lateral thalamus and adjacent posterior limb of internal capsule. Report signed by: Diana Duckworth On 03/10/2024 15:41:[address], [place], [address], [facility] 03/10/2024 16:49:36 Xr, Chest, 1 View : ABNORMAL FINDING PROCEDURE INFORMATION: Exam: XR Chest Exam date and time: 03/11/2024 1:17 AM Age: 73 years old Clinical indication: SOB, desat, increased wob TECHNIQUE: Imaging protocol: Radiologic exam of the chest. Views: 1 view. COMPARISON: CR XR CHEST 1 VW 03/09/2024 6:22 AM and chest x-ray 02/23/2024 FINDINGS: Lungs: Pulmonary venous congestion and new consolidations in the upper lobes, right side more than left, suspicious for pulmonary edema. Pleural spaces: Unremarkable. No pleural effusion. No pneumothorax. Heart/Mediastinum: Stable mild cardiomegaly. Prosthetic cardiac valve. CABG. Bones/joints: Sternotomy. Old, healed right posterior 8th rib fracture. IMPRESSION: Increasing pulmonary venous congestion and edema in the upper lungs. Report signed by: Lili Angel On 03/11/2024 02:07:[address], [place], [address], [facility] 03/12/2024 10:31:05 Mri, Brain, W/o Contrast : CRITICAL FINDING Addendum created by Diana Duckworth MD on 03/11/2024 2:37:47 PM EDT: COMPARISON MORE: MR BRAIN WO CONTRAST 02/25/2024 2:08 PM As noted there is minimal residual linear cortical restricted diffusion in the right hippocampus and previously there was significant restricted diffusion in the medial and posterior right temporal lobe which has nearly resolved except for the 2 small linear areas. This therefore is consistent with subacute to chronic infarct at this time. The area of subacute hemorrhage in the posterior aspect of the thalamus is located in area acute to subacute infarct in the right posterior thalamus on prior examination. Restricted diffusion in this location has resolved. Addendum created by Diana Duckworth MD on 03/11/2024 7:02:36 AM EDT: MOISES Yap received report and has no questions. Also, technologist replied that hospitalist has seen report. Initial report created on 03/10/2024 3:41:13 PM EDT: PROCEDURE INFORMATION: Exam: MR Head Without Contrast Exam date and time: 03/10/2024 2:38 PM Age: 73 years old Clinical indication: Altered mental status, facial droop, lower extremity ataxia, R/O stroke TECHNIQUE: Imaging protocol: Magnetic resonance imaging of the head without contrast. COMPARISON: CT HEAD/BRAIN WO CONTRAST 03/09/2024 6:35 AM FINDINGS: Brain: There is very small linear chronic infarct in left cerebellar hemisphere. There is mixture of subacute methemoglobin chronic hemosiderin staining in the right posterior mesial temporal lobe involving hippocampus as well as subacute methemoglobin in the posterior thalamus. There is minimal persistent linear cortical increased signal on diffusion-weighted images in the mesial temporal region which likely shows low signal on ADC map and is consistent with small areas of persistent resolving restricted diffusion in the subacute to chronic infarct. There is also a separate area of restricted diffusion in the lateral right thalamus and adjacent posterior limb of internal capsule which is therefore consistent with an additional area of acute to subacute and more recent lacunar infarct. This shows no blood products. Few small areas of increased cerebral white matter FLAIR signal consistent with mild microvascular change. Cerebral ventricles: Normal. No ventriculomegaly. Bones: Unremarkable. Paranasal sinuses: Normal as visualized. No acute sinusitis. Mastoid air cells: No significant mastoid effusion. Orbital cavities: There have been bilateral intraocular lens replacements likely related to cataract surgery. Soft tissues: Unremarkable as visualized. IMPRESSION: 1. Area of subacute to chronic infarct in right posterior mesial temporal lobe with both subacute and chronic hemorrhage. Additional area of subacute hemorrhage in the right posterior thalamus. 2. Separate area of restricted diffusion and acute to subacute infarct without hemorrhage in right lateral thalamus and adjacent posterior limb of internal capsule. Report signed by: Diana Duckworth On 03/11/2024 14:37:[address], [place], [address], [facility] 03/12/2024 10:31:04 Ct, Head + Brain, W/o Contrast : ABNORMAL FINDING PROCEDURE INFORMATION: Exam: CT Head Without Contrast Exam date and time: 03/11/2024 4:56 PM Age: 73 years old Clinical indication: F/u CVA TECHNIQUE: Imaging protocol: Computed tomography of the head without contrast. Radiation optimization: All CT scans at this facility use at least one of these dose optimization techniques: automated exposure control; mA and/or kV adjustment per patient size (includes targeted exams where dose is matched to clinical indication); or iterative reconstruction. COMPARISON: MR BRAIN WO CONTRAST 03/10/2024 2:38 PM FINDINGS: Brain: Redemonstration of small subacute to early chronic infarct involving the right hippocampus. Trace hyperdensity along the posterior aspect of the right thalamus and along the posteromedial right hippocampus may correlate with areas of microhemorrhage as demonstrated on prior MRI. Mild nonspecific hypodensities of the periventricular and deep subcortical white matter, most likely secondary to chronic microangiopathic ischemic change. No extra-axial fluid collection. No evidence of mass effect or midline shift. Cerebral ventricles: Mild prominence of the ventricles and sulci, most likely attributed to parenchymal volume loss. Paranasal sinuses: Unremarkable. No fluid levels. Mastoid air cells: Unremarkable. Bones: No acute calvarial fracture. Soft tissues: Scalp soft tissues are unremarkable. IMPRESSION: 1. Redemonstration of small subacute to early chronic infarct involving the right hippocampus. 2. Trace hyperdensity along the posterior aspect of the right thalamus and along the posteromedial right hippocampus may correlate with areas of microhemorrhage as demonstrated on prior MRI. 3. Other chronic findings, as above. Report signed by: Daniel Stanton On 03/11/2024 17:14:56 SRIKANTH TUTTLE MD [address], [place], [address], [facility] 03/11/2024 18:42:20 Mri, Brain, W/o Contrast : CRITICAL FINDING Addendum created by Diana Duckworth MD on 03/11/2024 7:02:36 AM EDT: MOISES Yap received report and has no questions. Also, technologist replied that hospitalist has seen report. Initial report created on 03/10/2024 3:41:13 PM EDT: PROCEDURE INFORMATION: Exam: MR Head Without Contrast Exam date and time: 03/10/2024 2:38 PM Age: 73 years old Clinical indication: Altered mental status, facial droop, lower extremity ataxia, R/O stroke TECHNIQUE: Imaging protocol: Magnetic resonance imaging of the head without contrast. COMPARISON: CT HEAD/BRAIN WO CONTRAST 03/09/2024 6:35 AM FINDINGS: Brain: There is very small linear chronic infarct in left cerebellar hemisphere. There is mixture of subacute methemoglobin chronic hemosiderin staining in the right posterior mesial temporal lobe involving hippocampus as well as subacute methemoglobin in the posterior thalamus. There is minimal persistent linear cortical increased signal on diffusion-weighted images in the mesial temporal region which likely shows low signal on ADC map and is consistent with small areas of persistent resolving restricted diffusion in the subacute to chronic infarct. There is also a separate area of restricted diffusion in the lateral right thalamus and adjacent posterior limb of internal capsule which is therefore consistent with an additional area of acute to subacute and more recent lacunar infarct. This shows no blood products. Few small areas of increased cerebral white matter FLAIR signal consistent with mild microvascular change. Cerebral ventricles: Normal. No ventriculomegaly. Bones: Unremarkable. Paranasal sinuses: Normal as visualized. No acute sinusitis. Mastoid air cells: No significant mastoid effusion. Orbital cavities: There have been bilateral intraocular lens replacements likely related to cataract surgery. Soft tissues: Unremarkable as visualized. IMPRESSION: 1. Area of subacute to chronic infarct in right posterior mesial temporal lobe with both subacute and chronic hemorrhage. Additional area of subacute hemorrhage in the right posterior thalamus. 2. Separate area of restricted diffusion and acute to subacute infarct without hemorrhage in right lateral thalamus and adjacent posterior limb of internal capsule. Report signed by: Diana Duckworth On 03/11/2024 07:02:[address], [place], [address], [facility] 03/12/2024 10:31:04 Xr, Chest, 1 View : ABNORMAL FINDING PROCEDURE INFORMATION: Exam: XR Chest Exam date and time: 03/17/2024 10:07 AM Age: 73 years old Clinical indication: Cough and SOB TECHNIQUE: Imaging protocol: Radiologic exam of the chest. Views: 1 view. COMPARISON: CR XR CHEST 1 VW 03/11/2024 1:17 AM FINDINGS: Lungs: Multifocal bilateral airspace disease. Pleural spaces: Unremarkable. No pleural effusion. No pneumothorax. Heart/Mediastinum: Stable cardiomegaly. Bones/joints: Prior median sternotomy, CABG and aortic valve replacement IMPRESSION: Shifting multifocal bilateral airspace disease Report signed by: Kaye Mccabe On 03/17/2024 10:21:[address], [place], [address], [facility] 03/17/2024 11:49:43 Problems Name Problem SNOMED Code Status Onset Date Resolution Date Notes Provider Name and Address Organization Details Recorded Time Hyperlip id[facility] 92715470 [facility] 4 10:52[facility]48 Gastroes ophageal reflux disease without esophagi tis 208570793 Active 2001 [facility] 4 10:52:40 Aortic stenosis , non-rheu matic 023600138 Active 2012 [facility] 4 10:51:50 Type 2 diabetes mellitus without complica tion 110782668 Completed 200103/24/2024 TAMIA TAYLOR PA-C [facility] [address], [place], [address] [facility] 4 12:13:19 Atherosc lerosis of coronary artery without angina pectoris 32114649342 4103 Active 2001 CAD [facility] 4 10:52:05 [facility] hyperten dori 72829333 Active 2014 [facility] 4 10:52:32 Posterio r rhinorrh ea 31935614 Completed 201607/11/2017 05/30/20 17 - Comments only - Binu Cortes PA-C - Recommen d trial nasal saline. Follow-u p if not improved . Problem Code: R09.82; Problem Code Type: ICD-10; Not Available [facility] 3 05:30:35 Pre-surg eri evaluati on [...] Z01.818; Problem Code Type: ICD-10; Not Available [facility] 3 05:30:35 Impacted cerumen in left ear 67018309731 40260 Completed 202009/30/2020 09/30/19 21 - Comments only - Tamia KISER - Flush performe d without complica tions Problem Code: H61.22; Problem Code Type: ICD-10; Not Available [facility] 3 05:30:35 Pain of left shoulder joint [id number] 536999 Completed 202009/30/2020 09/30/19 21 - Comments only - Tamia KISER - Likely a strain or mild tendinop athy. Recommen ded rest heating pad and muscle rub. Stretche s as tolerate d. Problem Code: M25.512; Problem Code Type: ICD-10; Not Available [facility] 3 05:30:35 Pain of joint of knee 4204175816 Active 2020 Knee pain, chronic, b/l Vanita diallo [facility] 4 10:53:38 Rheumati c mitral stenosis 69599161 Active 2020 mod 02/2024 [facility] echo SRIKANTH TUTTLE MD [address], [place], [address] , [facility] 4 07:49:56 Screenin g for malignan t neoplasm of colon Completed 202004/21/2021 04/20/20 21 - Comments only - Tamia KISER - Referral to [facility] general surgery for screenin g colonosc opy. Patient is overdue by 6 years. He denies hematoch ezia, melena and bowel changes. Problem Code: Z12.11; Problem Code Type: ICD-10; Not Available [facility] 3 05:30:36 Viral screenin g Completed 202110/19/2021 10/19/19 22 - Comments only - Tamia KISER - Hep C drawn today for screenin g purposes Problem Code: Z11.59; Problem Code Type: ICD-10; Not Available [facility] 3 05:30:36 [place] ht 496378622 Active 2021 ALIX Alcala [facility] 4 10:53:19 Pre-surg eri evaluati on Completed 202102/23/2022 02/23/20 22 - Comments only - Tamia KISER - /Tracey t patient s chronic medical issues are stable. His blood sugar is not optimal but stable enough for this procedur e. Recommen d routine perioper ative care for upcoming low risk procedur e. Problem Code: Z01.818; Problem Code Type: ICD-10; Not Available [facility] 3 05:30:36 Senile cataract 38756272 Completed 202102/23/2022 Problem Code: H25.9; Problem Code Type: ICD-10; Not Available [facility] 3 05:30:36 Coronary arterios clerosis 56192316 Completed 200109/06/2015 Not Available [facility] 3 05:30:36 Gastro-e sophagea l reflux disease with esophagi tis 536351461 Completed 200104/10/2023 Problem Code: 530.11; Problem Code Type: ICD-9; Not Available [facility] 3 05:30:37 Blood glucose outside referenc e range 153980328 Completed 200104/10/2023 Problem Code: R73.09; Problem Code Type: ICD-10; Not Available [facility] 3 05:30:37 Itching of skin 406205166 Completed 202011/10/2020 Problem Code: L29.9; Problem Code Type: ICD-10; Not Available [facility] 3 05:30:37 Glucose level outside referenc e range 655507060 Completed 200104/10/2023 Problem Code: 790.29; Problem Code Type: ICD-9; Not Available [facility] 3 05:30:37 Aortic valve disorder 3143246 Completed 201204/10/2023 Problem Code: 424.1; Problem Code Type: ICD-9; Not Available [facility] 3 05:30:37 Dysuria 32762283 Completed 202206/06/2023 Problem Code: R30.0; Problem Code Type: ICD-10; Not Available [facility] 4 05:36:43 Blood in urine 96794375 Active 2022 Vanita Martínez [facility], [facility] 4 10:52:20 Abdomina l pain 48773249 Active 2022 Flank pain, right Vanita Mauricio null, [facility] 4 10:51:41 Nocturia 009046340 Active 2022 Vanita Mauricio null, [facility] 4 10:53:10 Inguinal hernia 527265834 Active 2022 right Vanita Mauricio null, [facility] 4 10:53:00 Lumbago with sciatica 206792973 Active 2023 TAMIA TAYLOR PA-C [address], [place], [address] , [facility] 4 15:37:21 Lumbar spondylo sis with myelopat hy 40306212 Active 2023 TAMIA TAYLOR PA-C [address], [place], [address] , [facility] 4 13:01:42 Acute non-ST segment elevatio n myocardi al infarcti on 021350409 Active 2023 R PHYSICIAN AIDE occlusio n and infarcti on associat ed w/ cardiac cath, s/p tPA Saskia Ramirez RN null, 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 4 09:11:03 Hypergly cemia due to type 2 diabetes mellitus 57625704926 9109 Active [address], [facility] [address] , [facility] 4 12:13:33 Anemia 263245199 Active 2023 B12- low end of normal at 210 serum iron low recd suppleme ntation and recheck iron studies mid Jun [address], [facility] [address] , [facility] 14:20:37 Hypomagn esemia 474262495 Active [address], [facility] [address] , [facility] 4 14:21:16 Problem Notes None recorded. Procedures Surgical History Date Name Laterality Status Provider Name and Address Organization Details Recorded Time 02/23/20 24 cardiac catheterization completed [address], [facility] [address], [facility] 02/26/2024 10:29:14 06/13/20 20 replacement of aortic valve completed [address], [facility] [address], [facility] 07/03/2023 16:23:48 Appendectomy completed [address], [place], [address], [facility] 07/03/2023 16:22:23 Tonsillectomy completed [address], [place], [address], [facility] 07/03/2023 16:22:42 Cataract Surgery completed [address], [place], [address], [facility] 07/03/2023 16:24:20 Cabg vein three completed [address], [place], [address], [facility] 07/03/2023 16:24:28 Imaging Results Imaging Date Name Status LastModified by Organization Details LastModified Time 10/14/2023 EKG order tracing 12 lead completed [address] (Lab) [address] [place], [address], 10/18/2023 12:14:49 12/25/2023 EKG order tracing 12 lead completed [address] (Lab) [address] [place] [address], [address], 2023 13:56:38 01/31/2024 XR, lumbar spine completed [facility] [address], [place], [address], 02/04/2024 08:35:54 02/14/2024 MR LS spine wo contrast completed [facility] [address], [place], [address], 02/18/2024 12:57:36 02/23/2024 XR, chest, 1 view completed [address], [place], [address], 02/23/2024 21:53:44 03/09/2024 CT, head + brain, w/o contrast completed [address] [place], [address], 03/09/2024 10:07:54 03/09/2024 XR, chest, 1 view completed [address] [place], [address], 03/09/2024 10:07:54 03/10/2024 MRI, brain, w/o contrast completed [address] [place], [address], 03/10/2024 16:49:36 03/11/2024 XR, chest, 1 view completed [address] [place], [address], 03/12/2024 10:31:05 03/10/2024 MRI, brain, w/o contrast completed [address] [place], [address], 03/12/2024 10:31:04 03/10/2024 MRI, brain, w/o contrast completed [address] [place], [address], 03/12/2024 10:31:04 03/11/2024 CT, head + brain, w/o contrast completed [address] [place], [address], 03/11/2024 18:42:20 03/12/2024 US extremity lower venous ar completed [address] [place], [address], 03/12/2024 18:10:18 03/17/2024 XR, chest, 1 view completed [address], [place], [address], 03/17/2024 11:49:43 06/03/2020 XR, chest completed Information no t available 03/30/2024 19:44:43 05/26/2020 XR, chest completed Information no t available 03/30/2024 19:44:44 06/13/2020 XR, chest completed Information no t available 03/30/2024 19:44:45 05/26/2020 imaging/diagnostic result completed Information not available 03/30/2024 19:45:16 05/26/2020 imaging/diagnostic result completed Information not available 03/30/2024 19:45:19 05/24/2023 imaging/diagnostic result completed Information not available 03/30/2024 19:45:22 03/11/2020 US, echocardiogram completed Inform ation not available 03/30/2024 19:45:29 03/24/2021 US, echocardiogram completed Inform ation not available 03/30/2024 19:45:30 04/24/2023 nuclear stress test completed Information not available 03/30/2024 19:45:31 07/21/2020 imaging/diagnostic result completed Information not available 03/30/2024 19:47:46 06/13/2020 imaging/diagnostic result completed Information not available 03/30/2024 19:47:48 05/17/2023 imaging/diagnostic result completed Information not available 03/30/2024 19:47:51 03/11/2023 imaging/diagnostic result completed Information not available 03/30/2024 19:47:55 06/03/2020 imaging/diagnostic result completed Information not available 03/30/2024 19:47:56 06/03/2020 imaging/diagnostic result completed Information not available 03/30/2024 19:47:57 05/26/2020 imaging/diagnostic result completed Information not available 03/30/2024 19:47:59 06/03/2020 imaging/diagnostic result completed Information not available 03/30/2024 19:48:00 06/03/2020 imaging/diagnostic result completed Information not available 03/30/2024 19:48:01 04/03/2022 imaging/diagnostic result completed Information not available 03/30/2024 19:48:07 Procedure Notes None recorded. Medical Equipment None Reported. Allergies Allergen ID Allergen Name Allergen Category Reaction Reaction Severity Criticality Documentation Date Start Date Code Code System Note Provider Name and Address Organization Details Recorded Time 19367 ticlopidi ne medicatio n other moderate Not available 10/17/20232001 26408 RxNorm (Ticl id tabs) Vanita Martínez [facility] 10:54:55 34947 lisinopri l medicatio n cough Not available Not available 03/26/2024 05077 RxNorm JOJO HORNE RN [facility] 14:09:37 Medications Name Sig Start Date Stop Date Status Note LastModified by Organization Details LastModified Time Prescript ion - Renewal active Drug Alert/Co nsiderat ion Not Available Not Available Not Available multivita min tablet Take 1 tablet by [...] TAKE ONE TABLET BY MOUTH AT BEDTIME 2023 active Not Available Not Available Not Avai lable Iron (ferrous sulfate) 325 mg (65 mg iron) tablet Take 1 tablet every day by oral route. active Not Available Not Available No t Available aspirin 325 mg tablet take 1 [...] a day by oral route. 03/23 completed [facility] hosp. Not Available Not Available Not Available glipizide ER 5 mg tablet, extended release 24 hr Take 1 tab by mouth daily (take with 10mg glipizid e ER) 11/10 completed Not Available Not Available Not Available clopidogr el 75 mg tablet TAKE ONE TABLET BY MOUTH EVERY DAY 03/23 completed stopped per [facility] discharg e summary Not Available Not Available Not Available chlorthal idone 25 mg tablet Take 1 tab by mouth daily 10/[address] Lackey Not Available Not Available Not Available amlodipin e 5 mg tablet TAKE ONE TABLET BY MOUTH ONCE DAILY active dec from BID to QD as of 04/01/24 Not Available Not Available Not Available sulfameth oxazole 800 mg-trimet hoprim 160 [...] Not Available tamsulosi n 0.4 mg capsule Take 1 capsule by mouth at bedtime 2023 active Not Available Not Available Not Avai labfarhan OneTouch Ultra Test strips TEST ONCE A [...] pantopraz ole 40 mg tablet,de layed release Take 1 tablet twice a day by oral route for 30 days, for Increasi ng gerd symptoms . 2023 active Not Available Not Available Not Avai lable metformin 1,000 mg tablet TAKE ONE TABLET [...] ONE TABLET BY MOUTH TWICE A DAY 2023 active Not Available Not Available Not Avai lable lisinopri l 40 mg tablet Take 1 [...] completed Not Available Not Available Not Available Vitamin B12 1000mcg once daily active Not Available Not Available No t Available omeprazol e 20 mg tablet,de layed release Take 1 tab by mouth daily. 12/15 completed Not Available Not Available Not Available magnesium glycinate 200mg twice daily active Not Available Not Available No t Available OneTouch Delica Lancets 30 gauge test [...] 06/01/22 -Pt is enrolled and approved in [employer] Pt assistan ce program through Meghan Dias. Not Available Not Available Not Available Ozempic 0.25 mg or 0.5 mg (2 mg/1.5 mL) subcutane ous pen injector Inject 0.5mg subcutan eously once a week 2021 active P t is approved and enrolled in [employer] Pt assistan ce program, through Meghan Dias [...] Updated DateTime 4 168.91 cm 26.9 kg/m2 74778.4 5 g 96 % 96 % 65 /min 120 mm[Hg] 64 mm[Hg] Parker Farmer RN [facility] 4 08:07:28 Date Recorded Body height Body mass index (BMI) Body weight Oxygen saturation Oxygen saturation in Arterial blood by Pulse oximetry Heart rate Systolic blood pressure Diastolic blood pressure Provider Name and Address Organization Details Last Updated DateTime 4 168.91 cm 27.5 kg/m2 23340.4 8 g 97 % 97 % 63 /min 134 mm[Hg] 86 mm[Hg] Parker Farmer RN [facility] 4 15:10:10 Date Recorded Body height Body mass index (BMI) Body weight Oxygen saturation Oxygen saturation in Arterial blood by Pulse oximetry Heart rate Body temperature Systolic blood pressure Diastolic blood pressure Provider Name and Address Organization Details Last Updated DateTime 4 168.91 cm 26.9 kg/m2 79233.7 8 g 96 % 96 % 59 /min 96.6 [degF] 132 mm[Hg] 72 mm[Hg] Parker Farmer RN [facility] 4 08:49:21 Date Recorded Body height Body mass index (BMI) Body weight Oxygen saturation Oxygen saturation in Arterial blood by Pulse oximetry Heart rate Systolic blood pressure Diastolic blood pressure Provider Name and Address Organization Details Last Updated DateTime 4 168.91 cm 27 kg/m2 34143.3 8 g 95 % 95 % 81 /min 128 mm[Hg] 62 mm[Hg] Parker Farmer RN [facility] 4 10:25:39 Date Recorded Body height Body mass index (BMI) Body weight Heart rate Systolic blood pressure Diastolic blood pressure Provider Name and Address Organization Details Last Updated DateTime 4 168.91 cm 25.6 kg/m2 01103.3 7 g 96 /min 102 mm[Hg] 66 mm[Hg] JOJO HORNE RN [facility] 4 14:12:14 Date Recorded Oxygen saturation Oxygen saturation in Arterial blood by Pulse oximetry Provider Name and Address Organization Details Last Updated DateTime 03/26/2024 96 % 96 % [address], [place], [address], [facility] 03/26/2024 15:02:51 Social History Question Answer Notes LastModified by Organizat ion Details LastModified Time Tobacco Smoking Status Never Smoker LILLY MAJANO MA null, [facility] 07/26/2023 08:35:54 1) Date Of Last [...] Printed: 01/09/2024 Information not available 01/09/2024 Assigned Wool Dyer: Sylvia Dowell Information not available 01/09/2024 Is [facility] The Lead Wool Dyer? Yes Information not available 01/09/2024 Level Of Intensity: Quarterly Information not available 01/09/2024 Team Based Care: Yes Information not available 01/09/2024 Other Barriers To Care (See Note) Yes Denies Language Barrier: Vietnamese Is Primary Language, But He Speaks & Reports Reads Ukrainian Well Information not available 01/09/2024 Last Care Team Meeting 05/23/2023 Information not available 01/09/2024 Financial Barrier Yes Limited Income; Eligible For Medication Patient Assistance Programs (Cardiac & Diabetes Meds) Information not available 01/09/2024 Behavioral Health Yes Information not available 01/09/2024 Community Chief Technology Officer Yes Information not available 01/09/2024 Dental Services Yes Informati on not available 01/09/2024 Diabetes Education Yes Information not available 01/09/2024 Medication Assistance Yes Information not available 01/09/2024 Social Security/Disabi lity Yes Information not available 01/09/2024 Diabetes Self Management Program Yes Info Provided; Declines Information not available 01/09/2024 Diabetes Support Group Yes Info Provided; Declines Information not available 01/09/2024 Health Sole Rounding Machine Operator For HTN Control Yes Info Provided; Declines Information not available 01/09/2024 Hot Molder On Aging Yes Information not available 01/09/2024 Providers Yes Information no t available 01/09/2024 What Was The Date Of Your Most Recent Tobacco Screening? 02/07/2024 Information not available 02/07/2024 Has Tobacco Cessation Counseling Been Provided? No Information not available 02/07/2024 Sex: Male Functional Status None recorded. Mental Status None recorded. Family History Relationship Description Onset Age of this Age Resolved Age Notes LastModified by Organization Details LastModified Time Mother Family history of acute medical disorder [place] son's [email or web address] Not available 05/24/2023 03:52:25 Father Family history of heart failure [email or web address] Not available 2022 03:52:26 Notes:*Problem: FAMILY HX: M other at age 80 of Parkinson's. Father age 46 of an ND. he has 3 brothers, one w/ CAD, and 2 sisters, one w/ MS and CAD. Medical History No medical history recorded. Immunizations Vaccine Type Date Status Provider Name and Address Organization Details Recorded Time COVID-19, mRNA, LNP-S, PF, oly-sucrose, 30 mcg/0.3 mL 10/25/2023 cancelled TAMIA TAYLOR PA-C [address], [place], [address], [facility] 10/25/2023 10:10:11 Td (adult), 2 Lf tetanus toxoid, preservative free, adsorbed 09/09/2018 completed Not Available [facility] 05/24/2023 05:17:56 Tdap 05/31/2009 completed Not Available [facility] 05:17:56 zoster live 02/01/2014 completed Not Available [facility] 05/24/2023 05:17:56 Pneumococcal conjugate PCV 13 07/12/2015 completed Not Available [facility] 05/24/2023 05:17:57 Influenza, split virus, trivalent, preservative 05/20/2015 completed Not Available [facility] 05/24/2023 05:17:57 Influenza, split virus, trivalent, preservative 05/29/2016 completed Not Available [facility] 05/24/2023 05:17:57 Influenza, split virus, quadrivalent, PF 04/28/2019 completed Not Available [facility] 05/24/2023 05:17:57 Influenza, split virus, quadrivalent, PF 04/29/2020 completed Not Available [facility] 05/24/2023 05:17:57 Influenza, split virus, quadrivalent, preservative 06/03/2018 completed Not Available [facility] 05/24/2023 05:17:57 Influenza, high-dose, quadrivalent, PF 04/20/2021 completed Not Available [facility] 05/24/2023 05:17:57 Influenza, high-dose, quadrivalent, PF 04/26/2022 completed Not Available [facility] 05/24/2023 05:17:57 COVID-19, mRNA, LNP-S, PF, 100 mcg/0.5mL dose or 50 mcg/0.25mL dose 09/15/2020 completed Not Available [facility] 05/24/2023 05:17:57 COVID-19, mRNA, LNP-S, PF, 100 mcg/0.5mL dose or 50 mcg/0.25mL dose 10/13/2020 completed Not Available [facility] 05/24/2023 05:17:57 SARS-COV-2 (COVID-19) vaccine, UNSPECIFIED 05/15/2021 completed Not Available [facility] 05/24/2023 05:17:57 COVID-19, mRNA, LNP-S, bivalent, PF, 30 mcg/0.3 mL dose 05/02/2022 completed Not Available [facility] 05/24/20 05:17:58 pneumococcal polysaccharide PPV23 08/22/2010 completed Not Available [facility] 2022 05:17:58 pneumococcal polysaccharide PPV23 08/29/2016 completed Not Available [facility] 2022 05:17:58 Hep B, unspecified formulation 11/21/2012 completed Not Available [facility] 05/24/2023 05:17:58 Influenza, high-dose, quadrivalent, PF 05/03/2023 completed Not Available [facility] 07/26/2023 05:31:29 Past Encounters Encounter ID Performer Location Encounter Start Date Encounter Closed Date Diagnosis/Indication Diagnosis SNOMED-CT Code Diagnosis ICD10 Code [id number] TAMIA TAYLOR PA-C [address] [address] 07/26/2023 08:27:21 07/26/2023 09:28:03 Essential hypertension 77484640 I10 Hyperlipidemia 63978421 E78.5 Type 2 yanira betes mellitus without complication 060268972 E11.9 Atheroscle rosis of coronary artery without angina pectoris 6326329735 57454 I25.10 [id number] RAYSA MEAGANHUMBERTO [address] [address] 07/30/2023 07:56:27 07/30/2023 08:55:[id number] [address] 10/25/2023 07:56:57 10/25/2023 08:33:37 Type 2 diabetes mellitus without complication 754757490 E11.9 Atheroscle rosis of coronary artery without angina pectoris 2425773106 44099 I25.10 Essential hypertension 91699400 I10 Hyperlipidemia 56043798 E78.5 Overweight 396040557 E66 .3 Active or passive immunization 142925063 Z23 [id number] TAMIA VALENTIN[address] [address] 01/31/2024 15:01:16 01/31/2024 15:49:17 Lumbago with sciatica 438423515 M54.42 [id number] TAMIA [address] [address] 02/07/2024 08:35:45 02/07/2024 09:48:10 Type 2 diabetes mellitus without complication 628368427 E11.9 Lumbago with sciatica 20 3254566 M54.42 Tinea pedis 7633866 B35. 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 Goals Section Goal Description Status Start Date [...] by Organization Details LastModified Time None Recorded Advance Directives Directive None Recorded Payers Encounter Date Sequence Insurance Name Policy Number Policy Michele Covered Member ID Michele Member ID Guarantor Name 10/25/2023 1 [facility] [place] (MEDICARE REPLACEMENT HMO) [id number] Johnson R Ekaterina [id number] Johnson R Ekaterina 01/31/2024 1 [facility] [place] (MEDICARE REPLACEMENT HMO) [id number] Johnson R Ekaterina [id number] Johnson R Ekaterina 02/07/2024 1 [facility] [place] ([place]ICARE [place]PLAC[place] H[place]) [id number] Johnson R Ekaterina [id number] Johnson R Ekaterina 02/21/2024 1 [facility] [place] (MEDICARE REPLACEMENT O) [id number] Johnson R Ekaterina [id number] Johnson R Ekaterina 03/26/2024 1 [facility] (MEDICARE REPLACEMENT HMO) [id number] Johnson R Ekaterina [id number] Johnson R Ekaterina Notes Date Note Type Note Provider Name and Address Organization Details Recorded Time 10/25/2023 text/html HPI Notes: Noam flores presents for follow-up. Patient's blood pressure is well-controlled on his current medication. A1c well-controlled at 7.1. He mentions that a month ago he stopped taking the Jardiance as he ended up developing another UTI. He did try it daily for a couple of months. He is currently doing the 0.5 mg of the Ozempic weekly. He was wondering if he could try to go up to 0.75 mg instead of the 1 mg as 1 mg caused him to have side effects of the nausea and vomiting. He denies numbness and tingling in his feet. He is seeing Dr. 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 The amlodipine was changed from 5 mg twice daily to once daily and he now has a long-acting nitro on board. He does sometimes get some chest pains with activity and he is working closely with his aluminum hydroxide process operator. He may need to have another cardiac catheterization done. He denies palpitations, headaches, dizziness, shortness of breath and edema. [address], [place], [address], [facility] 10/25/2023 10:13:37 01/31/2024 text/html HPI Notes: 73-ye ar-old male presents with left lower back pain and left leg pain for the past week. Lumbago with Sciatica (left side): The patient reports that his back pain started one week ago after getting up in the morning and reaching for milk in the refrigerator. He experienced a similar problem in his 20s, which would recur every four to five years but has been absent for the past 15 years. The pain is located in the left lower back area and radiates down to theleft knee. The pain is shooting in nature, comes and goes, and is worse with sitting. The patient feels better when walking or lying down. He has been taking two Extra Strength Tylenol every 4 hours for the pain. The patient reports that his left leg gives out when walking and experiences shooting pain in the knee. The pain goes down to about the knee but does not extend further. - The patient has a history of diabetes and hypertension - Attends cardiac rehab a couple of times a week - General: No fevers, numbness, or tingling - Musculoskeletal: No foot drop, no saddle anesthesia [address], [place], [address], [facility] 01/31/2024 17:04:16 02/07/2024 text/html HPI Notes: The p atez presents with concerns about his diabetes, left [...] Musculoskeletal: No foot drop, no saddle anesthesia [address], [place], [address], [facility], [facility]. 02/07/2024 10:14:40 02/21/2024 text/html HPI Notes: 73-ye ar-old male patient presents with low back pain and left leg pain. The patient is a 73-year-old male with a diagnosis of lumbar spondylosis with myelopathy. The condition started with low back pain and progressed to include pain radiating down the left leg. The patient has tried two rounds of medrol dose jacky which provided some relief, and has also been taking cyclobenzaprine to help with the pain. The pain has been a little bit better in the last three to four days, but the patient still experiences symptoms in the left leg. A referral to a spine center has been sent to [facility] 3 days ago, but the patient has not heard about scheduling yet as to be expected. 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 denies saddle anesthesia, foot drop, fevers and loss of bowel/bladder control. [address], [place], [address], [facility]. 02/21/2024 13:31:14 03/26/2024 text/html HPI Notes: Noam flores presents for f/u recent hospitalizations He present to [facility] ER with chest heaviness and dizziness on 02/22 and found to have NSTEMI in which he was transferred to [facility]. Patient suffered a stroke(R PHYSICIAN AIDE occlusion and infarction) after cardiac catheterization procedure. He received tpaHe received treatment and was hospitalized at [facility] for a week before being transferred to a rehab facility ([facility]) for four to five days. He is currently receiving home health services, including physical and occupational therapy, to aid in recovery from the stroke. he has not heard about scheduling with neurologist. they would like a referral to neurology closer to home. DAPT was stopped and per cardiology no indication for this. history of type 2 diabetes mellitus. His current A1c is 7.3. he was on insulin while hospitalized. they stopped the ozempic during that time. blood sugars have been ranging in the 130-150s. Heart failure, unspecified: Patient has a history of heart failure and was recently hospitalized for fluid retention. He is currently taking Lasix to manage the fluid retention and monitoring his weight daily. He is scheduled to follow up with Dr Lackey in 2 weeks. Anemia, unspecified: Patient has a history of anemia and is due for a follow-up blood work to monitor the condition. Hypomagnesemia: Patient's magnesium levels have been low in the past. He is not currently taking any magnesium supplements, but his healthcare provider will check his magnesium levels and consider starting a supplement if levels remain low. Cellulitis of right lower limb: Patient was diagnosed with cellulitis in the right foot and was treated with antibiotics. The redness and swelling have improved, but there is still some residual swelling. Acid reflux: Patient has a history of acid reflux and is currently experiencing symptoms when lying down at night. His healthcare provider recommends elevating the head of the bed to alleviate acid reflux symptoms and considering adjusting medications if symptoms do not improve. Swelling in feet: Patient's feet were swollen due to fluid retention. The swelling has improved since starting Lasix 60mg daily. - Patient is on a low sodium diet. TAMIA TAYLOR PA-C [address], [place], [address], [place] [facility]. 03/26/2024 17:23:52
--- OUTSIDE RECORDS SUMMARY | 2024-04-02 21:08 | XMS_ITS ---
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
--- OUTSIDE RECORDS SUMMARY | 2024-04-02 21:08 | XMS_ITS ---
Author Organization Unknown Address [address] [place] [phone] Phone Care Team Providers Care Senior Software Tester Name Role Phone AVERY Tobias Attending Unavailable [...] Code Sys tem Aortic stenosis, non-rheumatic 03/19/2023 [id number] SNOMED-CT Personal Care Team Section Performer Name Performer Role Active Date Inactive Da te
--- OUTSIDE RECORDS SUMMARY | 2024-04-02 21:09 | XMS_ITS | Continuity of Care Document ---
Author Organization [place] - [facility], [facility] Address [address] [place] [address] Care Team Providers Care Bar Tacker Name Role Phone TAMIA TAYLOR Primary Care Provider MATEO GLASS Grade Teacher DOWELL KATHLEEN Vehicle Operator Technician [phone] DELPHINE OLSEN Community Health Worker WINTER LACKEY DEISY WALDEN Pigment Processor/Agricultural Technician [facility] PLUG STITCHER-RAJEEV LEVIN Pigment Processor/Nutritioni st BURT DASILVA Dentist [phone] ANTONIA FARRIS Behavioral [facility] [phone] Assessment Encounter Date Assessment Date Assessment LastModified [...] for further evaluation and potential treatment options. [email or web address] Not available 02/21/2024 13:29:08 Plan of Treatment Reminders Order Date Submit Date Provider Last Modified By Organization Details Last Modified Time Details Appointments Follow Up 30 2023 11:30A M Not available Not available Not available Lab drug screen, urine 2023 024 [facility], [address] [place] [address] [address], [place], [address], 02/21/2024 13:10:09 Referral None recorded. Procedures None recorded. Surgeries None recorded. Imaging None recorded. Medication Orders tramadol 50 mg tablet 2023 024 [id number], [address], [place], [address], 02/21/2024 10:39:14 Patient TargetsNo targets recorded. Patient Instructions Encounter Date Encounter Id Patient Instructions Last Modified By Organization Details Last Modified Time 02/21/2024 [id number] let me know if y ou do not hear from [facility] in 1-2 weeks prescription for tramadol 1 tablet twice daily as needed for SEVERE pain only. 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 [place] [address], [place], [address], 02/21/2024 10:39:26 02/21/20 24 02/21/2024 drug scree n, urine Barbiturates : negati ve Not Available [facility] [address], [place], [address], 02/21/2024 10:39:26 02/21/20 24 02/21/2024 drug scree n, urine BUP: negati ve Not Available [facility] [address], [place], [address], 02/21/2024 10:39:26 02/21/20 24 02/21/2024 drug scree n, urine Benzodiazepi david: negati ve Not Available [facility] [address], [place], [address], 02/21/2024 10:39:26 02/21/20 24 02/21/2024 drug scree n, urine Cocaine: negati ve Not Available [facility] [address], [place], [address], 02/21/2024 10:39:26 02/21/20 24 02/21/2024 drug scree n, urine EDDP (Methadone Metabolite) negati ve Not Available [facility] [address], [place], [address], 02/21/2024 10:39:26 02/21/20 24 02/21/2024 drug scree n, urine (MET) Methamphetam ine: negati ve Not Available [facility] [address], [place], [address], 02/21/2024 10:39:26 02/21/20 24 02/21/2024 drug scree n, urine MDMA: negati ve Not Available [facility] [address], [place], [address], 02/21/2024 10:39:26 02/21/20 24 02/21/2024 drug scree n, urine MTD (Methadone): negati ve Not Available [facility] [address], [place], [address], 02/21/2024 10:39:26 02/21/20 24 02/21/2024 drug scree n, urine Fmg249 (Opiate): negati ve Not Available [facility] [address], [place], [address], 02/21/2024 10:39:26 02/21/20 24 02/21/2024 drug scree n, urine OXY (Oxycodone): negati ve Not Available [facility] [address], [place], [address], 02/21/2024 10:39:26 02/21/20 24 02/21/2024 drug scree n, urine TCA: positi ve Not Available [facility] [address], [place], [address], 02/21/2024 10:39:26 02/21/20 24 02/21/2024 drug scree n, urine THC: negati ve Not Available [facility] [address], [place], [address], 02/21/2024 10:39:26 01/31/20 24 01/31/2024 XR, lumba [...] by: William Bryant On 2023 16:53: [email or web address] [facility] [address], [place], [address], 02/04/2024 08:35:54 02/16/20 24 02/14/2024 MR LS [...] signif icant thecal sac compre ssion. L2-L3: Drafter ior osteop hyte disc comple x with bilate ral facet joint arthro rober and ligame ntum flavum hypert rophy causin g modera te thecal sac compre ssion and modera te narrow ing of both neural forami na. L3-L4: Drafter ior osteop hyte disc comple x with bilate ral facet joint arthro rober and ligame ntum flavum hypert rophy causin g modera te thecal sac compre ssion and modera te narrow ing of both neural forami na. There is a right forami nal disc protru celestino. L4-L5: Drafter ior osteop hyte disc comple x with bilate ral facet joint arthro rober and ligame ntum flavum hypert rophy causin g severe thecal sac compre ssion and modera te narrow ing of both neural forami na, more on the right side. L5-S1: Drafter ior osteop hyte disc comple x with [...] sac compre ssion. Report signed by: Anthony Umanzor 2023 11:18: [email or web address] [place] [address] [address], [place], [address], 02/18/2024 12:57:36 02/23/20 24 02/23/2024 XR, chest [...] by: Sheeba Yang On 2023 10:36: [email or web address], [place], [address], 02/23/2024 21:53:44 03/09/20 24 03/09/2024 CT, head [...] by: Dorina Mojica On 2023 07:05: [email or web address], [place], [address], 03/09/2024 10:07:54 03/09/20 24 03/09/2024 XR, chest , 1 view PROCED URE INFORM ATION: Exam: XR Chest Exam date and time: 024 6:22 AM Age: 73 years old Clinic al indica tion: AMS TECHNI QUE: Imagin g protoc ol: Radiol ogic exam of the chest. Views: 1 view. COMPAR NOGC: CR XR CHEST 1 VW 9:22 AM [...] by: Dorina Mojica On 2023 07:06: [email or web address], [place], [address], 03/09/2024 10:07:54 03/10/2003/10/2024 MRI, brain , w/o [...] hemosi christopher staini ng in the right crossbar switch adjuster ior mesial tempor al lobe involv ing hippoc ampus as well as subacu te methem oglobi n in the crossbar switch adjuster ior thalam us. There is minima l [...] l right thalam us and adjace nt crossbar switch adjuster ior limb of auditor internal al capsul e which is theref ore [...] to chroni c infarc t in right crossbar switch adjuster ior mesial tempor al lobe with both subacu te and chroni c hemorr sylvain. Additi onal area of subacu te hemorr sylvain in the right crossbar switch adjuster ior thalam us. 2. Separa te area of restri cted diffus ion and acute to subacu te infarc t withou t hemorr sylvain in right latera l thalam us and adjace nt crossbar switch adjuster ior limb of auditor internal al capsul e. Report signed by: Diana Riddle eyer On 2023 15:41: 13 [facility] [address], [place], [address], 03/10/2024 16:49:36 03/11/20 24 03/11/2024 XR, chest [...] joints : Sterno montez. Old, healed right crossbar switch adjuster ior 8th rib fractu re. IMPRES CELESTINO: Increa sing pulmon pao venous conges tion and edema in the upper lungs. Report signed by: Robin Angel On 2023 02:07: [address] , [place], [address], 03/12/2024 10:31:05 03/11/2003/10/2024 MRI, brain , w/o contr ast CRITIC AL FINDIN G Addend um create d by Diana byers MD on 7:02:3 6 AM EDT: MOISES reyna ed report and has no questi ons. Also, techno logist replie d that [facility] has seen report . Initia [...] hemosi christopher staini ng in the right crossbar switch adjuster ior mesial tempor al lobe involv ing hippoc ampus as well as subacu te methem oglobi n in the crossbar switch adjuster ior thalam us. There is minima l [...] l right thalam us and adjace nt crossbar switch adjuster ior limb of auditor internal al capsul e which is theref ore [...] to chroni c infarc t in right crossbar switch adjuster ior mesial tempor al lobe with both subacu te and chroni c hemorr sylvain. Additi onal area of subacu te hemorr sylvain in the right crossbar switch adjuster ior thalam us. 2. Separa te area of restri cted diffus ion and acute to subacu te infarc t withou t hemorr sylvain in right latera l thalam us and adjace nt crossbar switch adjuster ior limb of auditor internal al capsul e. Report signed by: Diana byers On 2023 07:02: 36 [facility] [address], [place], [address], 03/12/2024 10:31:04 03/11/20 24 03/10/2024 MRI, brain [...] cted diffus ion in the medial and crossbar switch adjuster ior right tempor al lobe which has nearly resolv ed except for the 2 small linear areas. This theref ore is consis tent with subacu te to chroni c infarc t at this time. The area of subacu te hemorr sylvain in the crossbar switch adjuster ior aspect of the thalam us is locate d in area acute to subacu te infarc t in the right crossbar switch adjuster ior thalam us on prior examin ation. Restri cted diffus ion in this locati on has resolv ed. Addend um espinoza d by Diana byers MD on 7:02:3 6 AM EDT: MOISES reyna ed report and has no questi ons. Also, techno logist replie d that [facility] has seen report . Initia l report create d on 3:41:1 3 PM EDT: ====== ====== ====== ====== ====== ====== ====== ====== ====== ====== ===== PROCED URE INFORM ATION: Exam: MR Head Withou t Contra st Exam date and time: 8/27/2 024 2:38 PM Age: 73 years old [...] hemosi christopher staini ng in the right crossbar switch adjuster ior mesial tempor al lobe involv ing hippoc ampus as well as subacu te methem oglobi n in the crossbar switch adjuster ior thalam us. There is minima l [...] l right thalam us and adjace nt crossbar switch adjuster ior limb of auditor internal al capsul e which is theref ore [...] to chroni c infarc t in right crossbar switch adjuster ior mesial tempor al lobe with both subacu te and chroni c hemorr sylvain. Additi onal area of subacu te hemorr sylvain in the right crossbar switch adjuster ior thalam us. 2. Separa te area of restri cted diffus ion and acute to subacu te infarc t withou t hemorr sylvain in right latera l thalam us and adjace nt crossbar switch adjuster ior limb of auditor internal al capsul e. Report signed by: Diana Riddle eyer On 2023 14:37: 47 [facility] [address] , [place], [address], 03/12/2024 10:31:04 03/11/20 24 03/11/2024 CT, head [...] hippoc ampus. Trace hyperd ensity along the crossbar switch adjuster ior aspect of the right thalam us and along the crossbar switch adjuster omedia l right hippoc ampus may correl [...] ampus. 2. Trace hyperd ensity along the crossbar switch adjuster ior aspect of the right thalam us and along the crossbar switch adjuster omedia l right hippoc ampus may correl ate with areas of microh emorrh age as demons trated on prior MRI. 3. Other chroni c findin gs, as above. Report signed by: Daniel Stanton On 2023 17:14: [address], [place], [address], 03/11/2024 18:42:20 03/12/20 24 03/12/2024 US extre [...] REPORT 024 4:27 PM: ANALILIA SAUNDERS M.D. [address], [place], [address], 03/12/2024 18:10:18 03/17/20 24 03/17/2024 XR, chest [...] by: Kaye Mccabe On 2023 10:21: [address] [address] [address], [place], [address], 03/17/2024 11:49:43 03/30/20 24 06/03/2020 XR, chest [...] ation record ed. Not Available 03/30 19:47:48 03/30/20 24 05/17/2023 imagi ng/di agnos tic resul t No [...] ed. Not Available 03/30 19:48:07 Result Notes None recorded. Problems Name Problem SNOMED Code Status Onset Date Resolution Date Notes Provider Name and Address Organization Details Recorded Time Hyperlip idemia 07326231 Active 2001 [facility] 4 10:52:48 Gastroes ophageal reflux disease without esophagi tis 283140533 Active 2001 [facility] 4 10:52:40 Aortic stenosis , non-rheu matic 794425313 Active 2012 [facility] 4 10:51:50 Type 2 diabetes mellitus without complica tion 153006879 Completed 200103/24/2024 TAMIA TAYLOR PA-C [facility] [address], [place], [address] [facility] 4 12:13:19 Atherosc lerosis of coronary artery without angina pectoris 54041132066 4103 Active 2001 CAD [facility] 4 10:52:05 [facility] hyperten celestino 63880663 Active 2014 [facility] 4 10:52:32 Posterio r rhinorrh ea 06453555 Completed 201607/11/2017 05/30/20 17 - Comments only - Binu Cortes PA-C - Recommen d trial nasal saline. Follow-u p if not improved . Problem Code: R09.82; Problem Code Type: ICD-10; Not Available [facility] 3 05:30:35 Pre-surg eri husain on Completed 201705/30/2018 04/18/20 18 - Comments [...] Z01.818; Problem Code Type: ICD-10; Not Available [facility] 3 05:30:35 Impacted cerumen in left ear 05338699209 64382 Completed 202009/30/2020 09/30/19 21 - Comments only - Tamia KISER - Flush performe d without complica tions Problem Code: H61.22; Problem Code Type: ICD-10; Not Available [facility] 3 05:30:35 Pain of left shoulder joint 72425569603 749121 Completed 202009/30/2020 09/30/19 21 - Comments only - Tamia KISER - Likely a strain or mild tendinop athy. Recommen ded rest heating pad and muscle rub. Stretche s as tolerate d. Problem Code: M25.512; Problem Code Type: ICD-10; Not Available [facility] 3 05:30:35 Pain of joint of knee 7292570545 Active 2020 Knee pain, chronic, b/l Vanita Martínez [facility] [place], [place] - [facility]. 4 10:53:38 Rheumati c mitral stenosis 58788403 Active 2020 mod 02/2024 [facility] echo SRIKANTH TUTTLE MD [address], [place], [address] , [place] - [facility]. 4 07:49:56 Screenin g for malignan t neoplasm of colon Completed 202004/21/2021 04/20/20 21 - Comments only - Tamia KISER - Referral to [facility] general surgery for screenin g colonosc opy. Patient is overdue by 6 years. He denies hematoch ezia, melena and bowel changes. Problem Code: Z12.11; Problem Code Type: ICD-10; Not Available [facility] 3 05:30:36 Viral screenin g Completed 202110/19/2021 10/19/19 22 - Comments only - Tamia KISER - Hep C drawn today for screenin g purposes Problem Code: Z11.59; Problem Code Type: ICD-10; Not Available [facility] 3 05:30:36 [place]we[place] ht 042246721 Active 2021 ALIX Alcal[facility] - [facility] 4 10:53:19 Pre-surg eri evaluati on Completed 202102/23/2022 02/23/20 22 - Comments only - Tamia KISER - /Catarac t patient s chronic medical issues are stable. His blood sugar is not optimal but stable enough for this procedur e. Recommen d routine perioper ative care for upcoming low risk procedur e. Problem Code: Z01.818; Problem Code Type: ICD-10; Not Available [facility] 3 05:30:36 Senile cataract 14237316 Completed 202102/23/2022 Problem Code: H25.9; Problem Code Type: ICD-10; Not Available [facility] 3 05:30:36 Coronary arterios clerosis 58014148 Completed 200109/06/2015 Not Available [facility] 3 05:30:36 Gastro-e sophagea l reflux disease with esophagi tis 450633013 Completed 200104/10/2023 Problem Code: 530.11; Problem Code Type: ICD-9; Not Available [facility] 3 05:30:37 Blood glucose outside referenc e range 019609373 Completed 200104/10/2023 Problem Code: R73.09; Problem Code Type: ICD-10; Not Available [facility] 3 05:30:37 Itching of skin 082645322 Completed 202011/10/2020 Problem Code: L29.9; Problem Code Type: ICD-10; Not Available [facility] 3 05:30:37 Glucose level outside referenc e range 898804578 Completed 200104/10/2023 Problem Code: 790.29; Problem Code Type: ICD-9; Not Available [facility] 3 05:30:37 Aortic valve disorder 5493128 Completed 201204/10/2023 Problem Code: 424.1; Problem Code Type: ICD-9; Not Available [facility] 3 05:30:37 Dysuria 35521418 Completed 202206/06/2023 Problem Code: R30.0; Problem Code Type: ICD-10; Not Available [facility] 4 05:36:43 Blood in urine 36479326 Active 2022 Vanita Mauricio null, [facility] 4 10:52:20 Abdomina l pain 37258090 Active 2022 Flank pain, right [place] Mauricio null, [facility] 4 10:51:41 Nocturia 286471665 Active 2022 Vanita Mauricio null, [facility] 4 10:53:10 Inguinal hernia 977542773 Active 2022 [facility], [facility] 4 10:53:00 Lumbago with sciatica 232480455 Active 2023 TAMIA TAYLOR PA-C [address], [place], [address] , [facility] 4 15:37:21 Lumbar spondylo sis with myelopat hy 09527660 Active 2023 TAMIA TAYLOR PA-C [address], [place], [address] , [facility] 4 13:01:42 Acute non-ST segment elevatio n myocardi al infarcti on 845286140 Active 2023 R STONE RUBBER occlusio n and infarcti on associat ed w/ cardiac cath, s/p tPA Saskia Ramirez RN null, [facility] 4 16:06:53 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 [address] , [facility] 4 15:54:14 Right carotid artery stenosis 02323983709 9100 Active 2023 ulysses <50% [facility] 02/[address], [facility] [address] , [facility] 4 07:50:29 Transcat heter aortic valve implanta tion Active [address], [facility] [address] , [facility] 4 07:47:30 Congesti ve heart failure 48441517 Active 2023 Saskia Ramirez RN null, [facility] 4 09:11:03 Hypergly cemia due to type 2 diabetes mellitus 09817346790 9109 Active [address], [place], [address] , [facility] 4 12:13:33 Anemia 421745603 Active 2023 B12- low end of normal at 210 serum iron low recd suppleme ntation and recheck iron studies mid Jun [address], [place], [address] , [facility] 4 14:20:37 Hypomagn esemia 045167000 Active [address], [facility] [address] , [facility] 14:21:16 Problem Notes None recorded. Procedures Surgical History Date Name Laterality Status Provider Name and Address Organization Details Recorded Time 02/23/20 24 cardiac catheterization completed [address], [facility] [address], [facility] 02/26/2024 10:29:14 06/13/20 20 replacement of aortic valve completed [address], [place] [address], [facility] 07/03/2023 16:23:48 Appendectomy completed [address], [place] [address], [facility] 07/03/2023 16:22:23 Tonsillectomy completed [address], [address] 07/03/2023 16:22:42 Cataract Surgery completed [address], [place] [address], [facility] 07/03/2023 16:24:20 Cabg vein three completed [address], [facility] [address], [facility] 07/03/2023 16:24:28 Imaging Results None recorded. Procedure Notes None recorded. Medical Equipment None Reported. Allergies Allergen ID Allergen Name Allergen Category Reaction Reaction Severity Criticality Documentation Date Start Date Code Code System Note Provider Name and Address Organization Details Recorded Time 13469 ticlopidi ne medicatio n other moderate Not available 10/17/20232001 54313 RxNorm (Ticl id tabs) [facility] 10:54:55 33093 lisinopri l medicatio n cough Not available Not available 03/26/2024 74610 RxNorm JOJO HORNE RN null, [place] - [facility]. 14:09:37 Medications Name Sig Start Date Stop [...] a day by oral route. 03/23 completed [facility] Not Available Not Available Not Available glipizide ER 5 mg tablet, extended release 24 hr Take 1 tab by mouth daily (take with 10mg glipizid e ER) 11/10 completed Not Available Not Available Not Available clopidogr el 75 mg tablet TAKE ONE TABLET BY MOUTH EVERY DAY 03/23 completed [facility] Not Available Not Available [...] Not Available Not Available Not Avai lable OneTouch Ultra Test strips TEST ONCE A [...] 06/01/22 -Pt is enrolled and approved in [facility] Pt assistan ce program through Meghan Dias. [...] and Address Organization Details Last Updated DateTime 168.91 cm 27 kg/m2 32324.3 8 g 95 % 95 % 81 /min 128 mm[Hg] 62 mm[Hg] Parker Farmer RN [facility] 10:25:39 Social History Question Answer Notes LastModified by Organizat ion Details LastModified Time Tobacco Smoking Status Never Smoker CORIE ACUNA, [facility] 07/26/2023 08:35:54 1) Date Of Last VPMS [...] Printed: 01/09/2024 Information not available 01/09/2024 Assigned Ice Cream Maker: Sylvia Dowell Information not available 01/09/2024 Is [facility] The Lead Ice Cream Maker? Yes Information not available 01/09/2024 Level Of Intensity: Quarterly Information not available 01/09/2024 Team Based Care: Yes Information not available 01/09/2024 Other Barriers To Care (See Note) Yes Denies Language Barrier: Japanese Is Primary Language, But He Speaks & Reports Reads Occitan Well Information not available 01/09/2024 Last Care Team Meeting 05/23/2023 Information not available 01/09/2024 Financial Barrier Yes Limited Income; Eligible For Medication Patient Assistance Programs (Cardiac & Diabetes Meds) Information not available 01/09/2024 Behavioral Health Yes Information not available 01/09/2024 Community Plant Operator Helper Yes Information not available 01/09/2024 Dental Services Yes Informati on not available 01/09/2024 Diabetes Education Yes Information not available 01/09/2024 Medication Assistance Yes Information not available 01/09/2024 Social Security/Disabi lity Yes Information not available 01/09/2024 Diabetes Self Management Program Yes Info Provided; Declines Information not available 01/09/2024 Diabetes Support Group Yes Info Provided; Declines Information not available 01/09/2024 Health Extension Agent For HTN Control Yes Info Provided; Declines Information not available 01/09/2024 Straight Truck Driver On Aging Yes Information not available 01/09/2024 [...] Mother Family history of acute medical disorder Jadiel son's [email or web address] Not available 05/24/2023 03:52:25 Father Family history of heart failure [email or web address] Not available 2022 03:52:26 Notes:*Problem: FAMILY HX: M other at age 80 of Parkinson's. Father age 46 of an MO. he has 3 brothers, one w/ CAD, and 2 sisters, one w/ MS and CAD. Medical History No medical history recorded. Immunizations Vaccine Type Date Status Provider Name and Address Organization Details Recorded Time COVID-19, mRNA, LNP-S, PF, oly-sucrose, 30 mcg/0.3 mL 10/25/2023 cancelled TAMIA TAYLOR PA-C [address], [place], [address], [facility] [place] [facility] 10/25/2023 10:10:11 Td (adult), 2 Lf tetanus toxoid, preservative free, adsorbed 09/09/2018 completed Not Available [facility] 05/24/2023 05:17:56 Tdap 05/31/2009 completed Not Available [facility] 05:17:56 zoster live 02/01/2014 completed Not Available [facility] 05/24/2023 05:17:56 Pneumococcal conjugate PCV 13 07/12/2015 completed Not Available [facility] 05/24/2023 05:17:57 Influenza, split virus, trivalent, preservative 05/20/2015 completed Not Available [facility] 05/24/2023 05:17:57 Influenza, split virus, trivalent, preservative 05/29/2016 completed Not Available [facility] 05/24/2023 05:17:57 Influenza, split virus, quadrivalent, PF 04/28/2019 completed Not Available [facility] 05/24/2023 05:17:57 Influenza, split virus, quadrivalent, PF 04/29/2020 completed Not Available [facility] 05/24/2023 05:17:57 Influenza, split virus, quadrivalent, preservative 06/03/2018 completed Not Available [facility] 05/24/2023 05:17:57 Influenza, high-dose, quadrivalent, PF 04/20/2021 completed Not Available [facility] 05/24/2023 05:17:57 Influenza, high-dose, quadrivalent, PF 04/26/2022 completed Not Available [facility] 05/24/2023 05:17:57 COVID-19, mRNA, LNP-S, PF, 100 mcg/0.5mL dose or 50 mcg/0.25mL dose 09/15/2020 completed Not Available [facility] 05/24/2023 05:17:57 COVID-19, mRNA, LNP-S, PF, 100 mcg/0.5mL dose or 50 mcg/0.25mL dose 10/13/2020 completed Not Available [facility] 05/24/2023 05:17:57 SARS-COV-2 (COVID-19) vaccine, UNSPECIFIED 05/15/2021 completed Not Available [facility] 05/24/2023 05:17:57 COVID-19, mRNA, LNP-S, bivalent, PF, 30 mcg/0.3 mL dose 05/02/2022 completed Not Available [facility] 05/24/20 05:17:58 pneumococcal polysaccharide PPV23 08/22/2010 completed Not Available [facility] 2022 05:17:58 pneumococcal polysaccharide PPV23 08/29/2016 completed Not Available [facility] 2022 05:17:58 Hep B, unspecified formulation 11/21/2012 completed Not Available [facility] 05/24/2023 05:17:58 Influenza, high-dose, quadrivalent, PF 05/03/2023 completed Not Available [facility] 07/26/2023 05:31:29 Past Encounters Encounter ID Performer Location Encounter Start Date Encounter Closed Date Diagnosis/Indication Diagnosis SNOMED-CT Code Diagnosis ICD10 Code [id number] [address] [address] 01/31/2024 15:01:16 01/31/2024 15:49:17 Lumbago with sciatica 338151713 M54.[id number] [address] 02/07/2024 08:35:45 02/07/2024 09:48:10 Type 2 diabetes mellitus without complication 731918972 E11.9 Lumbago with sciatica 20 0694897 M54.42 Tinea pedis 3464808 B35. [id number] [address] 02/21/2024 10:07:06 02/21/2024 10:54:17 Lumbar spondylosis with myelopathy 60624453 M47.16 Goals Section Goal Description Status Start Date LastModified by Organization Details LastModified Time Hemoglobin A1C Lowers or maintains hemoglobin A1C (HbA1c) as per care team recommendation (s) [TARGET: less than or equal to 7%]; Avoid Insulin start Goal not achieved SYLVIA DOWELL Information not available 01/09/2024 17:57:16 Keep Medication Costs down Follows medication regimen as per care team recommendation (s) keeping medication costs to a minimum. Goal not achieved SYLVIA BLINDKARSON Information not available 01/09/2024 17:59:07 More Care [...] Michele Member ID Guarantor Name 02/21/2024 1 [facility] (MEDICARE REPLACEMENT HMO) [id number] Johnson Tobar [id number] Johnson López Ekaterina Notes Date Note Type Note Provider [...] a spine center has been sent to [facility] 3 days ago, but the patient has not heard about scheduling yet as to be expected. 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 denies saddle anesthesia, foot drop, fevers and loss of bowel/bladder control. [address], [place], [address], [facility]. 02/21/2024 13:31:14
--- OUTSIDE RECORDS SUMMARY | 2024-04-02 21:09 | XMS_ITS | Encounter Summary ---
Author Organization [facility] Address [address] [place] [address] Care Team Providers Care Heating And Ventilation Engineer Name Role Phone Unknown, Provider Primary Care Provider Encounter Details Date Type Department Care Team (Late st Contact Info) Description 05/24/2023 Lab Requisition [facility] Pathology & Laboratory Medicine - [facility] [address], [place] [id number] Outr Resulting Lab, Provider Social History Tobacco [...] PSA 8.7(H) <=6.5 ng/mL 05/24/2023 18:45 EST [facility] Blood VENOUS BLOOD / Unknown 05/23/2023 11:22 EST 05/24/2023 18:01 EST Narrative [facility] - 05/24/2023 18:45 EST NOTE: Serum PSA concentration should not be interpreted as absolute evidence for the presence or absence of malignant disease. Assayed on Siemens ADVIA Centaur XPT using chemiluminescent technology.??Values obtained by using different assay methods cannot be used interchangeably. Provider Outr Resulting Lab CHEMISTRY & BLOOD GAS ORDERABLES [facility] [address] [place] [address] documented in this encounter Visit Diagnoses Not on filedocumented in this encounter Care Teams Heating And Ventilation Engineer Relationship Specialty Start Date End Date Unknown, Provider, PCP - General 05/15/21 documented as of this encounter
--- OUTSIDE RECORDS SUMMARY | 2024-04-02 21:09 | XMS_ITS | Encounter Summary ---
Author Organization [facility] Address [address] [place] [address] Care Team Providers Care Him Coder Name Role Phone Unknown, Provider Primary Care Provider Encounter Details Date Type Department Care Team (Late st Contact Info) Description 10/19/2021 Lab Requisition [facility] Pathology & Laboratory Medicine - [facility] [address] [place] [address] Outr Resulting Lab, Provider Social History Tobacco [...] C Antibody Negative Negative 10/20/2021 10:[address] [facility] Blood VENOUS BLOOD / Unknown 10/18/2021 9:05 EDT 10/19/2021 17:30 EDT Provider Outr Resulting Lab CHEMISTRY & BLOOD GAS ORDERABLES [facility] [address] [place] [address] documented in this encounter Visit Diagnoses Not on filedocumented in this encounter Care Teams Him Coder Relationship Specialty Start Date End Date Unknown, ProviderMD PCP - General 05/15/21 documented as of this encounter
--- OUTSIDE RECORDS SUMMARY | 2024-04-02 21:09 | XMS_ITS | Continuity of Care Document ---
Author Organization [place] - [facility], [facility] Address [address] [place] [address] Care Team Providers Care Drawbridge Tender Name Role Phone TAMIA TAYLOR Primary Care Provider MATEO GLASS Vulnerability Assessment Analyst DOWELL KATHLEEN Furnace Filler DELPHINE OLSEN Community Health Worker WINTER LACKEY DEISY WALDEN Regular Senior Care Provider/Cable Strander REPLACED BY [facility] MAN-RAJEEV LEVIN Regular Senior Care Provider/Nutritioni st BURT DASILVA Dentist ANTONIA FARRIS Behavioral [...] Lab hemoglobi n A1C, fingersti ck 2023 [facility] [place], [address] [facility], [place], [address], 02/07/2024 09:17:18 Referral None recorded. Procedures None recorded. Surgeries None recorded. Imaging None recorded. Medication Orders Medrol (Jacky) 4 mg tablets in a dose pack 2023 [facility] [address], [address] [place], [address], 03/02/2024 16:11:03 cyclobenz aprine 5 mg tablet 2023 [facility] [address], [address] [place], [address], 03/26/2024 14:10:23 ketoconaz ole 2 % topical cream 2023 [facility] [address], [address] [place], [address], 02/07/2024 09:12:59 Patient TargetsNo targets recorded. Patient Instructions Encounter Date Encounter Id Patient Instructions Last Modified By Organization Details Last Modified Time 02/07/2024 [id number] You have been started on {{prednisone a [...] weeks Call with any questions or concerns Not available 02/07/2024 09:14:39 Reason for Referral Urologist Referral for Prost ate specific antigen above reference range elevated PSA 8.7 and nocturia. recently treated for cystitis. 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 Referring Physician: Tamia Taylor [facility], Encounter Date: 03/26/2024 Results Created Date Observation Date Name Description Value Unit Range Abnormal Flag Note LastModifiedBy Organization Detail LastModifiedTime 02/07/20 24 02/07/2024 hemog lobin A1C, finge rstic k hemoglobin A1C 7.5 % <5.7 Not Available [facility] [place] [address], [place], [address], 02/07/2024 08:53:37 01/31/20 24 01/31/2024 XR, lumba [...] by: William Bryant On 2023 16:53: 31 [email or web address] [facility] Xray [address], [place], [address], 02/04/2024 08:35:54 02/16/20 24 02/14/2024 MR LS [...] signif icant thecal sac compre ssion. L2-L3: Cotton Broker ior osteop hyte disc comple x with bilate ral facet joint arthro rober and ligame ntum flavum hypert rophy causin g modera te thecal sac compre ssion and modera te narrow ing of both neural forami na. L3-L4: Cotton Broker ior osteop hyte disc comple x with bilate ral facet joint arthro rober and ligame ntum flavum hypert rophy causin g modera te thecal sac compre ssion and modera te narrow ing of both neural forami na. There is a right forami nal disc protru celestino. L4-L5: Cotton Broker ior osteop hyte disc comple x with bilate ral facet joint arthro rober and ligame ntum flavum hypert rophy causin g severe thecal sac compre ssion and modera te narrow ing of both neural forami na, more on the right side. L5-S1: Cotton Broker ior osteop hyte disc comple x with [...] by: Anthony Camilo On 2023 11:18: [email or web address], [place], [address], 02/18/2024 12:57:36 02/23/20 24 02/23/2024 XR, chest [...] by: Sheeba Yang On 2023 10:36: [address], [place], [address], 02/23/2024 21:53:44 03/09/20 24 03/09/2024 CT, head [...] Dorina Mojica On 2023 07:05: 23 [email or web address] [facility] [address], [place], [address], 03/09/2024 10:07:54 03/09/20 24 03/09/2024 XR, chest [...] Dorina Mojica On 2023 07:06: 40 [email or web address] [facility] [address] , [place], [address], 03/09/2024 10:07:54 03/10/2003/10/2024 MRI, brain , w/o [...] hemosi christopher staini ng in the right housekeeper nanny ior mesial tempor al lobe involv ing hippoc ampus as well as subacu te methem oglobi n in the housekeeper nanny ior thalam us. There is minima l [...] l right thalam us and adjace nt housekeeper nanny ior limb of internal combustion engine inspector al capsul e which is theref ore [...] to chroni c infarc t in right housekeeper nanny ior mesial tempor al lobe with both subacu te and chroni c hemorr sylvain. Additi onal area of subacu te hemorr sylvain in the right housekeeper nanny ior thalam us. 2. Separa te area of restri cted diffus ion and acute to subacu te infarc t withou t hemorr sylvain in right latera l thalam us and adjace nt housekeeper nanny ior limb of internal combustion engine inspector al capsul e. Report signed by: Diana Riddle eyer On 2023 15:41: 13 [facility] [address], [place], [address], 03/10/2024 16:49:36 03/11/20 24 03/11/2024 XR, chest [...] joints : Sterno montez. Old, healed right housekeeper nanny ior 8th rib fractu re. IMPRES CELESTINO: Increa sing pulmon pao venous conges tion and edema in the upper lungs. Report signed by: Robin Angel On 2023 02:07: 09 [facility] [address], [place], [address], 03/12/2024 10:31:05 03/11/2003/10/2024 MRI, brain , w/o contr ast CRITIC AL FINDIN G Addend um create d by Diana byers MD on 7:02:3 6 AM EDT: MOISES reyna ed report and has no questi ons. Also, techno logist replie d that [facility] has seen report . Initia l report create d on 3:41:1 3 PM EDT: ====== ====== ====== ====== ====== ====== ====== ====== ====== ====== ===== PROCED URE INFORM ATION: Exam: MR Head Withou t Contra Exam date and time: 2:38 PM Age: 73 years old Clinic al indica tion: Altere d mental status , facial droop, lower extrem ity ataxia , R/O stroke TECHNI QUE: Imagin g protoc ol: Magnet ic resona nce imagin g of the head withou t contra st. COMPAR NGOC: CT HEAD/B RAIN WO CONTRA ST 6:35 AM IMMANUEL GS: Brain: There is very small linear chroni c infarc t in left cerebe llar hemisp here. There is mixtur e of subacu te methem oglobi n chroni c hemosi christopher staini ng in the right housekeeper nanny ior mesial tempor al lobe involv ing hippoc ampus as well as subacu te methem oglobi n in the housekeeper nanny ior thalam us. There is minima l [...] l right thalam us and adjace nt housekeeper nanny ior limb of internal combustion engine inspector al capsul e which is theref ore [...] to chroni c infarc t in right housekeeper nanny ior mesial tempor al lobe with both subacu te and chroni c hemorr sylvain. Additi onal area of subacu te hemorr sylvain in the right housekeeper nanny ior thalam us. 2. Separa te area of restri cted diffus ion and acute to subacu te infarc t withou t hemorr sylvain in right latera l thalam us and adjace nt housekeeper nanny ior limb of internal combustion engine inspector al capsul e. Report signed by: Diana Riddle eyer On 2023 07:02: [address] [place] [address], [place], [address], 03/12/2024 10:31:04 03/11/20 24 03/10/2024 MRI, brain [...] cted diffus ion in the medial and housekeeper nanny ior right tempor al lobe which has nearly resolv ed except for the 2 small linear areas. This theref ore is consis tent with subacu te to chroni c infarc t at this time. The area of subacu te hemorr sylvain in the housekeeper nanny ior aspect of the thalam us is locate d in area acute to subacu te infarc t in the right housekeeper nanny ior thalam us on prior examin ation. Restri cted diffus ion in this locati on has resolv ed. Addend um espinoza d by Diana byers MD on 7:02:3 6 AM EDT: MOISES reyna ed report and has no questi ons. Also, techno logist replie d that bev mccormick has seen report . Initia l report [...] RAIN WO CONTRA ST 024 6:35 AM IMMANUEL GS: Brain: There is very small linear chroni c infarc t in left cerebe llar hemisp here. There is mixtur e of subacu te methem oglobi n chroni c hemosi christopher staini ng in the right housekeeper nanny ior mesial tempor al lobe involv ing hippoc ampus as well as subacu te methem oglobi n in the housekeeper nanny ior thalam us. There is minima l [...] l right thalam us and adjace nt housekeeper nanny ior limb of internal combustion engine inspector al capsul e which is theref ore [...] to chroni c infarc t in right housekeeper nanny ior mesial tempor al lobe with both subacu te and chroni c hemorr sylvain. Additi onal area of subacu te hemorr sylvain in the right housekeeper nanny ior thalam us. 2. Separa te area of restri cted diffus ion and acute to subacu te infarc t withou t hemorr sylvain in right latera l thalam us and adjace nt housekeeper nanny ior limb of internal combustion engine inspector al capsul e. Report signed by: Diana Riddle eyer On 2023 14:37: 47 [facility] [address], [place], [address], 03/12/2024 10:31:04 03/11/20 24 03/11/2024 CT, head [...] hippoc ampus. Trace hyperd ensity along the housekeeper nanny ior aspect of the right thalam us and along the housekeeper nanny omedia l right hippoc ampus may correl [...] ampus. 2. Trace hyperd ensity along the housekeeper nanny ior aspect of the right thalam us and along the housekeeper nanny omedia l right hippoc ampus may correl ate with areas of microh emorrh age as demons trated on prior MRI. 3. Other chroni c findin gs, as above. Report signed by: Daniel Stanton On 2023 17:14: [address], [place], [address], 03/11/2024 18:42:20 03/12/20 24 03/12/2024 US extre [...] REPORT 024 4:27 PM: ANALILIA SAUNDERS M.D. [address], [place], [address], 03/12/2024 18:10:18 03/17/20 24 03/17/2024 XR, chest [...] by: Kaye Mccabe On 2023 10:21: [address], [place], [address], 03/17/2024 11:49:43 03/30/20 24 06/03/2020 XR, chest [...] ation record ed. Not Available 03/30 19:45:19 03/30/2005/24/2023 imagi ng/di agnos tic resul t No observ ation record ed. Not Available 03/30 19:45:22 03/30/20 24 03/11/2020 US, echoc ardio gram No observ ation record ed. Not Available 03/30 19:45:29 03/30/20 24 03/24/2021 US, echo ardio gram No observ ation record ed. [...] Address Organization Details Recorded Time Hyperlip idemia 92131074 Active 2001 [facility] 4 10:52:48 Gastroes ophageal reflux disease without esophagi tis 101333063 Active 2001 [facility] 4 10:52:40 Aortic stenosis , non-rheu matic 133367248 Active 2012 [facility] 4 10:51:50 Type 2 diabetes mellitus without complica tion 550571179 Completed 200103/24/[address], [place], [address] , [facility] 4 12:13:19 Atherosc lerosis of coronary artery without angina pectoris 57463660155 4103 Active 2001 CAD [facility] 4 10:52:05 Essentia l hyperten celestino 28434260 Active 2014 [facility] 4 10:52:32 Posterio r rhinorrh ea 06699261 Completed 201607/11/2017 05/30/20 17 - Comments only - Binu Cortes PA-C - Recommen d trial nasal saline. Follow-u p if not improved . Problem Code: R09.82; Problem Code Type: ICD-10; Not Available [facility] 3 05:30:35 Pre-surg eri evaluati on Completed 201705/30/2018 04/18/20 18 - Comments only - Binu Sophia, PA-C - Patient RCRI is 1 given his diabetes . He has excellec t exercise capacity without any cardiac symptoms 4+METS. He does not need any further cardiac testing for this low risk procedur e. Reviewed the risks and benefits with the patient he would like to proced with surgery. Problem Code: Z01.818; Problem Code Type: ICD-10; Not Available [facility] 3 05:30:35 Impacted cerumen in left ear 41015331135 96348 Completed 202009/30/2020 09/30/19 21 - Comments only - Tamia KISER - Flush performe d without complica tions Problem Code: H61.22; Problem Code Type: ICD-10; Not Available [facility] 3 05:30:35 Pain of left shoulder joint 82331509062 078849 Completed 202009/30/2020 09/30/19 21 - Comments only - Tamia KISER - Likely a strain or mild tendinop athy. Recommen ded rest heating pad and muscle rub. Stretche s as tolerate d. Problem Code: M25.512; Problem Code Type: ICD-10; Not Available [facility] 3 05:30:35 Pain of joint of knee 4661400082 Active 2020 Knee pain, chronic, b/l Vanita Martínez [facility], [place] - [facility] 4 10:53:38 Rheumati c mitral stenosis 14798463 Active 2020 mod 02/2024 [facility] echo SRIKANTH TUTTLE MD [address], [place], [address] , [place] - [facility] 4 07:49:56 Screenin g for malignan t neoplasm of colon Completed 202004/21/2021 04/20/20 21 - Comments only - Tamia KISER - Referral to [facility] general surgery for screenin g colonosc opy. Patient is overdue by 6 years. He denies hematoch ezia, melena and bowel changes. Problem Code: Z12.11; Problem Code Type: ICD-10; Not Available [facility] 3 05:30:36 Viral screenin g Completed 202110/19/2021 10/19/19 22 - Comments only - Tamia KISER - Hep C drawn today for screenin g purposes Problem Code: Z11.59; Problem Code Type: ICD-10; Not Available [facility] 3 05:30:36 [place] ht 215323127 Active 2021 [facility] [place] [facility] Z01.818; Problem Code Type: ICD-10; Not Available [facility] 3 05:30:36 Senile cataract 31769951 Completed 202102/23/2022 Problem Code: H25.9; Problem Code Type: ICD-10; Not Available [facility] 3 05:30:36 Coronary arterios clerosis 08737582 Completed 200109/06/2015 Not Available [facility] 3 05:30:36 Gastro-e sophagea l reflux disease with esophagi tis 855144778 Completed 200104/10/2023 Problem Code: 530.11; Problem Code Type: ICD-9; Not Available [facility] 3 05:30:37 Blood glucose outside referenc e range 362091202 Completed 200104/10/2023 Problem Code: R73.09; Problem Code Type: ICD-10; Not Available [facility] 3 05:30:37 Itching of skin 502581555 Completed 202011/10/2020 Problem Code: L29.9; Problem Code Type: ICD-10; Not Available [facility] 3 05:30:37 Glucose level outside referenc e range 047560121 Completed 200104/10/2023 Problem Code: 790.29; Problem Code Type: ICD-9; Not Available [facility] 3 05:30:37 Aortic valve disorder 7212563 Completed 201204/10/2023 Problem Code: 424.1; Problem Code Type: ICD-9; Not Available [facility] 3 05:30:37 Dysuria 20023480 Completed 202206/06/2023 Problem Code: R30.0; Problem Code Type: ICD-10; Not Available [facility] 4 05:36:43 Blood in urine 15727143 Active 2022 Vanita Mauricio null, [facility] 4 10:52:20 Abdomina l pain 59524559 Active 2022 Flank pain, right Vanita Mauricio [facility], [facility] 4 10:51:41 Nocturia 862672768 Active 2022 Vanita Mauricio null, [facility] 4 10:53:10 Inguinal hernia 329685593 Active 2022 right Vanita Mauricio [facility], [facility] 4 10:53:00 Lumbago with sciatica 115422713 Active 2023 TAMIA TAYLOR PA-C [address], [place], [address] , [facility] 4 15:37:21 Lumbar spondylo sis with myelopat hy 38215567 Active [address], [place], [address] , [facility] 4 13:01:42 Acute non-ST segment elevatio n myocardi al infarcti on 507486484 Active 2023 R CLERICAL DENTIST ASSISTANT occlusio n and infarcti on associat ed w/ cardiac cath, s/p tPA Saskia Ramirez RN null, [facility] 4 16:06:53 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 066110860 Active 2023 s/p tPA [address], [place] [address] , [facility] 4 15:54:14 Right carotid artery stenosis 75720784834 9100 Active 2023 ulysses <50% [facility] 02/[address], [place] [address] , [facility] 4 07:50:29 Transcat heter aortic valve implanta tion Active [address], [address] 4 07:47:30 Congesti ve heart failure 06366916 Active 2023 Saskia Ramirez RN null, [facility] 4 09:11:03 Hypergly cemia due to type 2 diabetes mellitus 62667151016 9109 Active [address], [place] [address] , [facility] 4 12:13:33 Anemia 843887883 Active 2023 B12- low end of normal at 210 serum iron low recd suppleme ntation and recheck iron studies mid Jun [address], [facility] [address] , [facility] 4 14:20:37 Hypomagn esemia 880313911 Active [address], [facility] [address] , [facility] 4 14:21:16 Problem Notes None recorded. Procedures Surgical History Date Name Laterality Status Provider Name and Address Organization Details Recorded Time 08/11/20 24 cardiac catheterization completed [address], [place], [address], [facility] 02/26/2024 10:29:14 06/13/20 20 replacement of aortic valve completed [address], [facility] [address] [place] [address] 07/03/2023 16:23:48 Appendectomy completed [address], [address] 07/03/2023 16:22:23 Tonsillectomy completed [address], [address] 07/03/2023 16:22:42 Cataract Surgery completed [address], [address] 07/03/2023 16:24:20 Cabg vein three completed [address], [address] 07/03/2023 16:24:28 Imaging Results None recorded. Procedure Notes None recorded. Medical Equipment None Reported. Allergies Allergen ID Allergen Name Allergen Category Reaction Reaction Severity Criticality Documentation Date Start Date Code Code System Note Provider Name and Address Organization Details Recorded Time 25158 ticlopidi ne medicatio n other moderate Not available 10/17/20232001 87003 RxNorm (Ticl id tabs) Vanita Martínez null, [facility] 10:54:55 46136 lisinopri l medicatio n cough Not available Not available 03/26/2024 10452 RxNorm JOJO HORNE RN [facility], [facility] 14:09:37 Medications Name Sig Start Date Stop [...] a day by oral route. 03/23 completed [facility] hosp. Not Available Not Available Not Available glipizide ER 5 mg tablet, extended release 24 hr Take 1 tab by mouth daily (take with 10mg glipizid e ER) 11/10 completed Not Available Not Available Not Available clopidogr el 75 mg tablet TAKE ONE TABLET BY MOUTH EVERY DAY 03/23 completed stopped per [facility] discharg e summary Not Available Not Available [...] dine gluconate 0.12 % mouthwash RINSE WITH 2 OUNCE BY MOUTH AFTER BREAKFAS T AND [...] 06/01/22 -Pt is enrolled and approved in [employer] Pt assistan ce program through Meghan Dias. [...] Organization Details Last Updated DateTime 168.91 cm 26.9 kg/m2 15817.7 8 g 96 % 96 % 59 /min 96.6 [degF] 132 mm[Hg] 72 mm[Hg] Parker Farmer RN [facility] 08:49:21 Social History Question Answer Notes LastModified by Organizat ion Details LastModified Time Tobacco Smoking Status Never Smoker CORIE ACUNA, [facility] 07/26/2023 08:35:54 1) Date Of Last [...] Printed: 01/09/2024 Information not available 01/09/2024 Assigned Mule Tender: Sylvia Dowell Information not available 01/09/2024 Is [facility] The Lead Mule Tender? Yes Information not available 01/09/2024 Level Of Intensity: Quarterly Information not available 01/09/2024 Team Based Care: Yes Information not available 01/09/2024 Other Barriers To Care (See Note) Yes Denies Language Barrier: Swedish Is Primary Language, But He Speaks & Reports Reads Chadian Well Information not available 01/09/2024 Last Care Team Meeting 05/23/2023 Information not available 01/09/2024 Financial Barrier Yes Limited Income; Eligible For Medication Patient Assistance Programs (Cardiac & Diabetes Meds) Information not available 01/09/2024 Behavioral Health Yes Information not available 01/09/2024 Community Director Of Group Counseling Program Yes Information not available 01/09/2024 Dental Services Yes Informati on not available 01/09/2024 Diabetes Education Yes Information not available 01/09/2024 Medication Assistance Yes Information not available 01/09/2024 Social Security/Disabi lity Yes Information not available 01/09/2024 Diabetes Self Management Program Yes Info Provided; Declines Information not available 01/09/2024 Diabetes Support Group Yes Info Provided; Declines Information not available 01/09/2024 Health Banquet Manager For HTN Control Yes Info Provided; Declines Information not available 01/09/2024 Instrument Repairer Steam Plant On Aging Yes Information not available 01/09/2024 [...] history of acute medical disorder Jadiel son's nenita.Sandra Not available 05/24/2023 03:52:25 Father Family history of heart failure lili Not available 2022 03:52:26 Notes:*Problem: FAMILY HX: M other at age 80 of Parkinson's. Father age 46 of an DC. he has 3 brothers, one w/ CAD, and 2 sisters, one w/ MS and CAD. Medical History No medical history recorded. Immunizations Vaccine Type Date Status Provider Name and Address Organization Details Recorded Time COVID-19, mRNA, LNP-S, PF, oly-sucrose, 30 mcg/0.3 mL 10/25/[address], [place], [address], [facility] 10/25/2023 10:10:11 Td (adult), 2 Lf tetanus toxoid, preservative free, adsorbed 09/09/2018 completed Not Available [facility] 05/24/2023 05:17:56 Tdap 05/31/2009 completed Not Available [facility] 05:17:56 zoster live 02/01/2014 completed Not Available [facility] 05/24/2023 05:17:56 Pneumococcal conjugate PCV 13 07/12/2015 completed Not Available [facility] 05/24/2023 05:17:57 Influenza, split virus, trivalent, preservative 05/20/2015 completed Not Available [facility] 05/24/2023 05:17:57 Influenza, split virus, trivalent, preservative 05/29/2016 completed Not Available [facility] 05/24/2023 05:17:57 Influenza, split virus, quadrivalent, PF 04/28/2019 completed Not Available [facility] 05/24/2023 05:17:57 Influenza, split virus, quadrivalent, PF 04/29/2020 completed Not Available [facility] 05/24/2023 05:17:57 Influenza, split virus, quadrivalent, preservative 06/03/2018 completed Not Available [facility] 05/24/2023 05:17:57 Influenza, high-dose, quadrivalent, PF 04/20/2021 completed Not Available [facility] 05/24/2023 05:17:57 Influenza, high-dose, quadrivalent, PF 04/26/2022 completed Not Available [facility] 05/24/2023 05:17:57 COVID-19, mRNA, LNP-S, PF, 100 mcg/0.5mL dose or 50 mcg/0.25mL dose 09/15/2020 completed Not Available [facility] 05/24/2023 05:17:57 COVID-19, mRNA, LNP-S, PF, 100 mcg/0.5mL dose or 50 mcg/0.25mL dose 10/13/2020 completed Not Available [facility] 05/24/2023 05:17:57 SARS-COV-2 (COVID-19) vaccine, UNSPECIFIED 05/15/2021 completed Not Available [facility] 05/24/2023 05:17:57 COVID-19, mRNA, LNP-S, bivalent, PF, 30 mcg/0.3 mL dose 05/02/2022 completed Not Available [facility] 05/24/20 05:17:58 pneumococcal polysaccharide PPV23 08/22/2010 completed Not Available [facility] 2022 05:17:58 pneumococcal polysaccharide PPV23 08/29/2016 completed Not Available [facility] 2022 05:17:58 Hep B, unspecified formulation 11/21/2012 completed Not Available [facility] 05/24/2023 05:17:58 Influenza, high-dose, quadrivalent, PF 05/03/2023 completed Not Available [facility] 07/26/2023 05:31:29 Past Encounters Encounter ID Performer Location Encounter Start Date Encounter Closed Date Diagnosis/Indication Diagnosis SNOMED-CT Code Diagnosis ICD10 Code [id number] TAMIA [address] [id number] 01/31/2024 15:01:16 01/31/2024 15:49:17 Lumbago with sciatica 911612819 M54.[id number] [address] 02/07/2024 08:35:45 02/07/2024 09:48:10 Type 2 diabetes mellitus without complication 991182352 E11.9 Lumbago with sciatica [id number] M54.42 Tinea pedis [id number] B35. 3 Goals Section Goal Description Status [...] Team, &/or Support Services. Goal not achieved 06/27/2 024 SYLVIA BLINDOW Information not available 01/09/2024 18:24:46 Health Concerns Section Related Observation LastModified by Organization Detai ls LastModified Time None Recorded Concern Status LastModified by Organization Details LastModified Time None Recorded Payers Encounter Date Sequence Insurance Name Policy Number Policy Michele Covered Member ID Michele Member ID Guarantor Name 02/07/2024 1 [facility] (MEDICARE REPLACEMENT HMO) [id number] Johnson R Ekaterina [id number] Johnson R Ekaterina Notes Date Note Type [...] drop, no saddle anesthesia [address], [place], [address], [facility] 02/07/2024 10:14:40
--- OUTSIDE RECORDS SUMMARY | 2024-04-02 21:09 | XMS_ITS | Clinical Summary ---
Author Organization [facility] Address [address] [place] [address] Care Team Providers Care Script Coordinator Name Role Phone Unknown, Provider Primary Care Provider Encounters Date Type Department Care Team Description 01/06/2024 Lab Requisition [facility] Pathology & Laboratory [facility] [address] [place] [address] Outr Resulting Lab, Provider 01/06/2024 Lab Requisition [facility] Pathology & Laboratory [address] [address] Outr Resulting Lab, Provider from Last 3 [...] % 67.9 N/A % 01/07/20 15:15 EDT [facility] Albumin, Urine mg/dL 86 mg/dL 01/07/2024 15:15 [facility] Globulins, Urine % 32.1 N/A % 01/07/2024 15:15 T [facility] Globulins, Urine mg/dL 40 mg/dL 01/07/2024 15:15 [facility] UPEP Comment See Comment 01/07/2024 15:15 [facility] Comment:Electrophoresis scre ening performed; Immunotyping to follow. ??See scanned/supplementary report. Immunotyping, Urine Current Interpretatio n: Negative for free monoclonal light chains. Reviewed by: Jeremy Galloway MD 01/07/2024 1315 01/07/2024 15:15 T [facility] Total Protein, Urine 126 See Note mg/dL 01/07/2024 15:15 [facility] Comment: NOTE: Reference range has not been established for total protein concentration in random urine specimens. Urine URINE / Unknown 01/06/2024 1 1:35 EDT 01/06/2024 22:26 EDT Provider Outr Resulting Lab URINALYSIS O RDERABLES [facility] [address], [place] [id number] * (ABNORMAL) SPEP, INCLUDES QUANTITATION OF MONOCLONAL SPIKE PERFORMABLE (01/06/2024 11:35 EDT) Albumin % 56.1 55.8 - 66.1 % 01/07/2024 12:38 [facility] Albumin g/dL 4.2 3.6 - 5.2 g/dL 01/07/2024 12:38 [facility] Alpha-1 % 3.9 2.9 - 4.9 % 01/07/2024 12:38 [facility] Alpha-1 g/dL 0.30 0.15 - 0.40 g/dL 01/07/2024 12:38 [facility] Alpha-2 % 13.7(H) 7.1 - 11.8 % 01/07/2024 12:38 [facility] Alpha-2 g/dL 1.00 0.50 - 1.00 g/dL 01/07/2024 12:38 [facility] Beta % 13.1 8.4 - 13.1 % 01/07/2024 12:38 [facility] Beta g/dL 1.00 0.60 - 1.20 g/dL 01/07/2024 12:38 [facility] Gamma % 13.2 11.1 - 18.8 % 01/07/2024 12:38 [facility] Gamma g/dL 1.00 0.60 - 1.60 g/dL 01/07/2024 12:38 [facility] SPEP Comment No apparent monoclonal protein seen on serum electrophoresis 01/07/2024 12:38 [facility] Comment:See scanned/suppleme ntary report. Total Protein 7.4 6.3 - 8.2 g/dL 01/07/2024 12:38 [facility] Blood VENOUS BLOOD / Unknown 01/06/2024 11:35 EDT 01/06/2024 22:31 EDT Provider Outr Resulting Lab CHEMISTRY & BLOOD GAS ORDERABLES [facility] [address] [place] [address] * PROTEIN, TOTAL, RANDOM, URINE (01/06/2024 11:35 EDT) Urine URINE / Unknown 01/06/2024 1 1:35 EDT 01/06/2024 22:26 EDT Provider Outr Resulting Lab URINALYSIS O RDERABLES Performing Organization Address [facility]/ZIP Co de Phone Number [facility] [address] [place] [address] * PROTEIN, TOTAL (01/06/2024 11:35 EDT) Blood VENOUS BLOOD / Unknown 01/06/2024 11:35 EDT 01/06/2024 22:31 EDT Provider Outr Resulting Lab CHEMISTRY & BLOOD GAS ORDERABLES Performing Organization Address [facility] Co de Phone Number [facility] [address] [place] [address] * HEPATITIS C AB W REFLEX TO HCV RNA BY PCR (10/18/2021 9:05 EDT) Hep C Antibody Negative Negative 10/20/2021 10:04 EDT [facility] Blood VENOUS BLOOD / Unknown 10/18/2021 9:05 EDT 10/19/2021 17:30 EDT Provider Outr Resulting Lab CHEMISTRY & BLOOD GAS ORDERABLES [facility] [address] [place] [address] from Last 3 Months or Most Recently Relevant to Health Maintenance Care Teams Script Coordinator Relationship Specialty Start Date End Date Unknown, Provider, PCP - General 05/15/21
--- OUTSIDE RECORDS SUMMARY | 2024-04-02 21:09 | XMS_ITS | Encounter Summary ---
Author Organization [facility] Address [address] [place] [address] Care Team Providers Care Editorial Assistant Name Role Phone Unknown, Provider Primary Care Provider Encounter Details Date Type Department Care Team (Late st Contact Info) Description 06/14/2021 Lab Requisition [facility] Pathology & Laboratory Medicine - [facility] [address] [place] [address] Outr Resulting Lab, Provider Social History Tobacco [...] 55.8 - 66.1 % 06/15/2021 15:25 EST [facility] Alpha-1 % 4.2 2.9 - 4.9 % 06/15/2021 15:25 EST [facility] Alpha-2 % 13.6(H) 7.1 - 11.8 % 06/15/2021 15:25 [facility] Beta % 13.6(H) 8.4 - 13.1 % 06/15/2021 15:25 [facility] Gamma % 13.8 11.1 - 18.8 % 06/15/2021 15:25 [facility] SPEP Comment No apparent monoclonal protein seen on serum electrophoresis 06/15/2021 15:25 [facility] Comment:See scanned/suppleme ntary report. Immunotyping , Serum Current Interpretation: Negative for monoclonal immunoglobulins. Reviewed by: Jeremy Galloway MD 06/15/2021 1446 06/15/2021 15:25 [facility] Total Protein 8.5(H) 6.3 - 8.2 g/dL 06/15/2021 15:25 [facility] Blood VENOUS BLOOD / Unknown 06/14/2021 10:53 EST 06/14/2021 20:53 EST Provider Outr Resulting Lab CHEMISTRY & BLOOD GAS ORDERABLES Performing Organization Address [facility] de Phone Number [facility] [address] [place] [address] * PROTEIN, TOTAL (06/14/2021 10:53 EST) Blood VENOUS BLOOD / Unknown 06/14/2021 10:53 EST 06/14/2021 20:53 EST Provider Outr Resulting Lab CHEMISTRY & BLOOD GAS ORDERABLES Performing Organization Address [facility] Co de Phone Number [facility] [address] [place] [address] * (ABNORMAL) SERUM FREE LIGHT CHAINS (06/14/2021 10:53 EST) [place] Free Lt Chain 3.51(H) 0.33 - 1.94 mg/dL 06/15/2021 9:28 [facility] Lambda Free Lt Chain 2.67(H) 0.57 - 2.63 mg/dL 06/15/2021 9:28 [facility] [place]/Lambda Ratio 1.31 0.26 - 1.65 06/15/2021 9:28 EST [facility] Blood VENOUS BLOOD / Unknown 06/14/2021 10:53 EST 06/14/2021 20:53 EST Provider Outr Resulting Lab CHEMISTRY & BLOOD GAS ORDERABLES Performing Organization Address City/State/[facility] Co de Phone Number [facility] [address] [place] [address] documented in this encounter Visit Diagnoses Not on filedocumented in this encounter Care Teams Editorial Assistant Relationship Specialty Start Date End Date Unknown, Provider, PCP - General 05/15/21 documented as of this encounter
--- OUTSIDE RECORDS SUMMARY | 2024-04-02 21:09 | XMS_ITS | Continuity of Care Document ---
Author Organization [place] - [facility], [facility] Address [address] [place] [address] Care Team Providers Care Crystallizer Operator Name Role Phone TAMIA TAYLOR Primary Care Provider MATEO GLASS Garment Worker WHITAKER KATHLEEN Senior Clerk DELPHINE OLSEN Community Health Worker [phone] WINTER LACKEY OTHER DEISY WALDEN Math And Sciences Department Chair/Dental Office Coordinator [facility] LIVING SPECIALIST-RAJEEV LEVIN Math And Sciences Department Chair/Nutritioni st BURT DASILVA Dentist ANTONIA FARRIS Behavioral Health Assessment No assessment recorded. Plan of Treatment Reminders Order Date Submit Date Provider Last Modified By Organization Details Last Modified Time Details Appointments Follow Up 30 2023 11:30A M Not available Not available Not available Lab magnesium , serum or plasma [address] [facility] (Registration ), [address] [place] [address] [place], [address], 03/27/2024 15:12:27 iron + TIBC + ferritin, serum [address] [facility] (Registration ), [address] [place] [address] [place], [address], 03/27/2024 15:11:36 folate, serum [address] [facility] (Registration ), [address] [place] [address] [place], [address], 03/27/2024 15:11:56 vitamin B12, serum [address] [facility] (Registration ), [address] [place] [address] [place], [address], 03/27/2024 15:12:10 hemoglobi n A1C, fingersti ck 2023 024 [email or web address] 0 [facility], [address], [place], [address], 03/26/2024 15:17:47 CMP, serum or plasma 2023 024 [facility] (Registration ), [address] [place] [address] [place], [address], 03/26/2024 20:27:03 CBC w/ auto diff 2023 024 [facility] (Registration ), [address] [place] [address] [place], [address], 03/26/2024 19:44:[address] referral 2023 024 [facility], [address] [place], [address], 03/31/2024 18:40:27 Procedures None recorded. Surgeries None recorded. Imaging None recorded. Medication Orders pantopraz ole 40 mg tablet,de layed release 2023 024 [facility] [address], [address] [place], [address], 03/26/2024 16:22:08 cephalexi n 500 mg capsule 2023 024 [facility] [address], [address] [facility] [place], [address], 03/26/2024 14:51:45 Patient TargetsNo targets recorded. Patient Instructions Encounter Date Encounter Id Patient Instructions Last Modified By Organization Details Last Modified Time 03/26/2024 [id number] cephalexin 500mg 1 capsule three times per day for 7 days continue with antifungal cream twice daily keep appointment with Dr Lackey as scheduled. ask him about aspirin and plavix start on ozempic 0.25mg once weekly for 2 weeks then increase to 0.5mg once weekly A referral has been placed for {{Allergy Audiolo gy Bariatric Card iology Colonoscop y Math And Sciences Department Chair Endoc rinology ENT Jacquelin roenterology Gene ral Surgery Genetics Hematology/Oncolo gy Nephrology Miguel rology* CLIENT ENGAGEMENT SPECIALIST Op tometry/Ophthalmo logy Orthopedics Pain Clinic Physical Therapy Podiatry Psychiatry Pulmon ology Rheumatolog y Sleep Clinic Spine Clinic Urology Va scular Surgery}} at {{[facility] ([facility]) [facility] ([facility])* [facility] ([facility] ([facility]) [facility] ([facility]) [facility] ([facility]) [facility]}}. If you do not receive a call to schedule an appointment in 7-10 days, please contact our immigration coordinator at You had blood work done today. Please allow up to 2 weeks to hear about results. Not available 03/26/2024 14:57:27 Reason for Referral Urologist Referral for Prost ate specific antigen above reference range elevated PSA 8.7 and nocturia. recently treated for cystitis. 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 Referring Physician: Family [facility] Medicine, Encounter Date: 03/26/2024 Results Created Date Observation Date Name Description Value Unit Range Abnormal Flag Note LastModifiedBy Organization Detail LastModifiedTime 03/26/20 24 03/26/2024 hemog lobin A1C, finge rstic k hemoglobin A1C 7.3 % <5.7 Not Available [facility] [address] [facility] [address], [place], [address], 03/24/2024 12:13:44 03/09/20 24 03/09/2024 CT, head + brain , w/o contr ast PROCED URE INFORM ATION: Exam: CT Head Withou t Contra st Exam date and time: 024 6:35 AM Age: 73 years old Clinic [...] Dorina Mojica On 2023 07:05: 23 [email or web address] [facility] [address], [place], [address], 03/09/2024 10:07:54 03/09/20 24 03/09/2024 XR, chest [...] by: Dorina Mojica On 2023 07:06: [email or web address] [place] [address], [place], [address], 03/09/2024 10:07:54 03/10/20 24 03/10/2024 MRI, brain [...] hemosi christopher staini ng in the right carpentry teacher ior mesial tempor al lobe involv ing hippoc ampus as well as subacu te methem oglobi n in the carpentry teacher ior thalam us. There is minima l [...] l right thalam us and adjace nt carpentry teacher ior limb of internet sales representative al capsul e which is theref ore [...] to chroni c infarc t in right carpentry teacher ior mesial tempor al lobe with both subacu te and chroni c hemorr sylvain. Additi onal area of subacu te hemorr sylvain in the right carpentry teacher ior thalam us. 2. Separa te area of restri cted diffus ion and acute to subacu te infarc t withou t hemorr sylvain in right latera l thalam us and adjace nt carpentry teacher ior limb of internet sales representative al capsul e. Report signed by: Diana Riddle eyer On 2023 15:41: 13 [email or web address] [place] [address], [place], [address], 03/10/2024 16:49:36 03/11/20 24 03/11/2024 XR, chest [...] joints : Sterno montez. Old, healed right carpentry teacher ior 8th rib fractu re. IMPRES CELESTINO: Increa sing pulmon pao venous conges tion and edema in the upper lungs. Report signed by: Robin Angel On 2023 02:07: 09 [facility] [address], [place], [address], 03/12/2024 10:31:05 03/11/2003/10/2024 MRI, brain , w/o contr ast CRITIC AL INNAIN G Addend um create d by Diana byers MD on 7:02:3 6 AM EDT: MOISES reyna ed report and has no questi ons. Also, techno logist replie d that [facility] has seen report . Initia l report [...] hemosi christopher staini ng in the right carpentry teacher ior mesial tempor al lobe involv ing hippoc ampus as well as subacu te methem oglobi n in the carpentry teacher ior thalam us. There is minima l [...] l right thalam us and adjace nt carpentry teacher ior limb of internet sales representative al capsul e which is theref ore [...] to chroni c infarc t in right carpentry teacher ior mesial tempor al lobe with both subacu te and chroni c hemorr sylvain. Additi onal area of subacu te hemorr sylvain in the right carpentry teacher ior thalam us. 2. Separa te area of restri cted diffus ion and acute to subacu te infarc t withou t hemorr sylvain in right latera l thalam us and adjace nt carpentry teacher ior limb of internet sales representative al capsul e. Report signed by: Diana byers On 2023 07:02: 36 [facility] [address], [place], [address], 03/12/2024 10:31:04 03/11/20 24 03/10/2024 MRI, brain [...] cted diffus ion in the medial and carpentry teacher ior right tempor al lobe which has nearly resolv ed except for the 2 small linear areas. This theref ore is consis tent with subacu te to chroni c infarc t at this time. The area of subacu te hemorr sylvain in the carpentry teacher ior aspect of the thalam us is locate d in area acute to subacu te infarc t in the right carpentry teacher ior thalam us on prior examin ation. Restri cted diffus ion in this locati on has resolv ed. Addend um create d by Diana byers MD on 7:02:3 6 AM EDT: MOISES reyna ed report and has no questi ons. Also, techno logist replie d that [facility] has seen report . Initia l report [...] hemosi christopher staini ng in the right carpentry teacher ior mesial tempor al lobe involv ing hippoc ampus as well as subacu te methem oglobi n in the carpentry teacher ior thalam us. There is minima l [...] l right thalam us and adjace nt carpentry teacher ior limb of internet sales representative al capsul e which is theref ore [...] to chroni c infarc t in right carpentry teacher ior mesial tempor al lobe with both subacu te and chroni c hemorr sylvain. Additi onal area of subacu te hemorr sylvain in the right carpentry teacher ior thalam us. 2. Separa te area of restri cted diffus ion and acute to subacu te infarc t withou t hemorr sylvain in right latera l thalam us and adjace nt carpentry teacher ior limb of internet sales representative al capsul e. Report signed by: Diana Riddle eyer On 2023 14:37: 47 [facility] [address] , [place], [address], 03/12/2024 10:31:04 03/11/20 24 03/11/2024 CT, head [...] hippoc ampus. Trace hyperd ensity along the carpentry teacher ior aspect of the right thalam us and along the carpentry teacher omedia l right hippoc ampus may correl [...] ampus. 2. Trace hyperd ensity along the carpentry teacher ior aspect of the right thalam us and along the carpentry teacher omedia l right hippoc ampus may correl ate with areas of microh emorrh age as demons trated on prior MRI. 3. Other chroni c findin gs, as above. Report signed by: Daniel Stanton On 2023 17:14: 56 [email or web address] [facility] [address], [place], [address], 03/11/2024 18:42:20 03/12/20 24 03/12/2024 US extre [...] REPORT 024 4:27 PM: ANALILIA SAUNDERS M.D. [email or web address] [facility] [address], [place], [address], 03/12/2024 18:10:18 03/17/2003/17/2024 XR, chest , 1 view ABNORM AL [...] by: Kaye Mccabe On 2023 10:21: 41 [facility] [address], [place], [address], 03/17/2024 11:49:43 03/30/20 24 06/03/2020 XR, chest [...] Address Organization Details Recorded Time Hyperlip idemia 40463871 Active 2001 [facility] 4 10:52:48 Gastroes ophageal reflux disease without esophagi tis 092442818 Active 2001 [facility] 4 10:52:40 Aortic stenosis , non-rheu matic 647354077 Active 2012 [facility] 4 10:51:50 Type 2 diabetes mellitus without complica tion 077002310 Completed 200103/24/[address], [place], [address] , [facility] 4 12:13:19 Atherosc lerosis of coronary artery without angina pectoris 65150633883 4103 Active 2001 [facility] 4 10:52:05 [facility]entia l hyperten celestino 66461693 Active 2014 [facility] 4 10:52:32 Posterio r rhinorrh ea 01339979 Completed 201607/11/2017 05/30/20 17 - Comments only - Binu Cortes PA-C - Recommen d trial nasal saline. Follow-u p if not improved . Problem Code: R09.82; Problem Code Type: ICD-10; Not Available [facility] 3 05:30:35 Pre-surg eri cancholaati on Completed 201705/30/2018 04/18/20 18 - Comments [...] Z01.818; Problem Code Type: ICD-10; Not Available [facility] 3 05:30:35 Impacted cerumen in left ear 13374915989 79911 Completed 202009/30/2020 09/30/19 21 - Comments only - Tamia KISER - Flush performe d without complica tions Problem Code: H61.22; Problem Code Type: ICD-10; Not Available [facility] 3 05:30:35 Pain of left shoulder joint 08097125813 634516 Completed 202009/30/2020 09/30/19 21 - Comments only - Tamia KISER - Likely a strain or mild tendinop athy. Recommen ded rest heating pad and muscle rub. Stretche s as tolerate d. Problem Code: M25.512; Problem Code Type: ICD-10; Not Available [facility] 3 05:30:35 Pain of joint of knee 4780437157 Active 2020 Knee pain, chronic, b/l Vanita diallo, [place] - [facility]. 4 10:53:38 Rheumati c mitral stenosis 73690868 Active 2020 mod 02/2024 [facility] echo SRIKANTH TUTTLE MD [address], [place], [address] , [place] - [facility]. 4 07:49:56 Screenin g for malignan t neoplasm of colon Completed 202004/21/2021 04/20/20 21 - Comments only - Tamia KISER - Referral to [facility] general surgery for screenin g colonosc opy. Patient is overdue by 6 years. He denies hematoch ezia, melena and bowel changes. Problem Code: Z12.11; Problem Code Type: ICD-10; Not Available [facility] 3 05:30:36 Viral screenin g Completed 202110/19/2021 10/19/19 22 - Comments only - Tamia KISER - Hep C drawn today for screenin g purposes Problem Code: Z11.59; Problem Code Type: ICD-10; Not Available [facility] 3 05:30:36 [place] ht 359437508 Active 2021 Vanita diallo [place] - [facility] 4 10:53:19 Pre-surg eri evaluati on Completed 202102/23/2022 02/23/20 22 - Comments only - Tamia KISER - /Catarac t patient s chronic medical issues are stable. His blood sugar is not optimal but stable enough for this procedur e. Recommen d routine perioper ative care for upcoming low risk procedur e. Problem Code: Z01.818; Problem Code Type: ICD-10; Not Available [facility] 3 05:30:36 Senile cataract 81533873 Completed 202102/23/2022 Problem Code: H25.9; Problem Code Type: ICD-10; Not Available [facility] 3 05:30:36 Coronary arterios clerosis 96751198 Completed 200109/06/2015 Not Available [facility] 3 05:30:36 Gastro-e sophagea l reflux disease with esophagi tis 229714420 Completed 200104/10/2023 Problem Code: 530.11; Problem Code Type: ICD-9; Not Available [facility] 3 05:30:37 Blood glucose outside referenc e range 814173771 Completed 200104/10/2023 Problem Code: R73.09; Problem Code Type: ICD-10; Not Available [facility] 3 05:30:37 Itching of skin 861592616 Completed 202011/10/2020 Problem Code: L29.9; Problem Code Type: ICD-10; Not Available [facility] 3 05:30:37 Glucose level outside referenc e range 310139377 Completed 200104/10/2023 Problem Code: 790.29; Problem Code Type: ICD-9; Not Available [facility] 3 05:30:37 Aortic valve disorder 1786586 Completed 201204/10/2023 Problem Code: 424.1; Problem Code Type: ICD-9; Not Available [facility] 3 05:30:37 Dysuria 96134040 Completed 202206/06/2023 Problem Code: R30.0; Problem Code Type: ICD-10; Not Available [facility] 4 05:36:43 Blood in urine 44618812 Active 2022 Vanita Mauricio [facility], [facility] 4 10:52:20 Abdomina l pain 08521367 Active 2022 Flank pain, right Vanita Mauricio null, [facility] 4 10:51:41 Nocturia 710042466 Active 2022 Vanita Mauricio null, [facility] 4 10:53:10 Inguinal hernia 556445746 Active 2022 right Vanita Mauricio null, [facility] 4 10:53:00 Lumbago with sciatica 296441141 Active [address], [place], [address] , [facility]. 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 527810021 Active 2023 s/p tPA [address], [place], [address] , [facility] 4 15:54:14 Right carotid artery stenosis 39332429646 9100 Active 2023 ulysses <50% [facility] 02/[address], [place], [address] , [facility] 4 07:50:29 Transcat heter aortic valve implanta tion Active [address], [place], [address] , [facility] 4 07:47:30 Congesti ve heart failure 73670185 Active 2023 Saskia Ramirez RN null, [facility] 4 09:11:03 Hypergly cemia due to type 2 diabetes mellitus 62396531348 9109 Active [address], [place], [address] , [facility] 4 12:13:33 Anemia 347718871 Active 2023 B12- low end of normal at 210 serum iron low recd suppleme ntation and recheck iron studies mid Jun [address], [place], [address] , [facility] 14:20:37 Hypomagn esemia 492335247 Active [address], [facility] [address] , [facility] 14:21:16 Problem Notes None recorded. Procedures Surgical History Date Name Laterality Status Provider Name and Address Organization Details Recorded Time 02/23/20 24 cardiac catheterization completed [address], [facility] [address] [place] [address] 02/26/2024 10:29:14 06/13/20 20 replacement of aortic valve completed [address], [facility] [address] [place] [address] 07/03/2023 16:23:48 Appendectomy completed [address], [facility] [address] [place] [address] 07/03/2023 16:22:23 Tonsillectomy completed [address], [address] 07/03/2023 16:22:42 Cataract Surgery completed [address], [facility] [address] [place] [address] 07/03/2023 16:24:20 Cabg vein three completed [address], [facility] [address] [place] [address] 07/03/2023 16:24:28 Imaging Results None recorded. Procedure Notes None recorded. Medical Equipment None Reported. Allergies Allergen ID Allergen Name Allergen Category Reaction Reaction Severity Criticality Documentation Date Start Date Code Code System Note Provider Name and Address Organization Details Recorded Time 31090 ticlopidi ne medicatio n other moderate Not available 10/17/20232001 28052 RxNorm (Ticl id tabs) Vanita Mart[facility]nez [facility], [facility] 4 10:54:55 63092 lisinopri l medicatio n cough Not available Not available 03/26/2024 83359 RxNorm JOJO HORNE RN [facility] 4 14:09:37 Medications Name Sig Start Date Stop [...] day by oral route. 03/23 completed [facility]. Not Available Not Available Not Available glipizide ER 5 mg tablet, extended release 24 hr Take 1 tab by mouth daily (take with 10mg glipizid e ER) 11/10 completed Not Available Not Available Not Available clopidogr el 75 mg tablet TAKE ONE TABLET BY MOUTH EVERY DAY 03/23 completed [facility] Not Available Not Available [...] 06/01/22 -Pt is enrolled and approved in [employer] Pt assistan ce program through Meghan Dias. [...] Organization Details Last Updated DateTime 168.91 cm 25.6 kg/m2 60343.3 7 g 96 /min 102 mm[Hg] 66 mm[Hg] JOJO HORNE RN [facility] 14:12:14 Date Recorded Oxygen saturation Oxygen saturation in Arterial blood by Pulse oximetry Provider Name and Address Organization Details Last Updated DateTime 03/26/2024 96 % 96 % TAMIA TAYLOR PA-C [address], [place], [address], [facility] 03/26/2024 15:02:51 Social History Question Answer Notes LastModified by Organizat ion Details LastModified Time Tobacco Smoking Status Never Smoker CORIE ACUNA, [facility] 07/26/2023 08:35:54 1) Date [...] Printed: 01/09/2024 Information not available 01/09/2024 Assigned Certified Histologic Technician: Sylvia Blindow Information not available 01/09/2024 Is COUNT INCLUDES THE [facility] The Lead Certified Histologic Technician? Yes Information not available 01/09/2024 Level Of Intensity: Quarterly Information not available 01/09/2024 Team Based Care: Yes Information not available 01/09/2024 Other Barriers To Care (See Note) Yes Denies Language Barrier: Surinamese Is Primary Language, But He Speaks & Reports Reads Spanish Well Information not available 01/09/2024 Last Care Team Meeting 05/23/2023 Information not available 01/09/2024 Financial Barrier Yes Limited Income; Eligible For Medication Patient Assistance Programs (Cardiac & Diabetes Meds) Information not available 01/09/2024 Behavioral Health Yes Information not available 01/09/2024 Community Church History Teacher Yes Information not available 01/09/2024 Dental Services Yes Informati on not available 01/09/2024 Diabetes Education Yes Information not available 01/09/2024 Medication Assistance Yes Information not available 01/09/2024 Social Security/Disabi lity Yes Information not available 01/09/2024 Diabetes Self Management Program Yes Info Provided; Declines Information not available 01/09/2024 Diabetes Support Group Yes Info Provided; Declines Information not available 01/09/2024 Health Rn Clinical Trials For HTN Control Yes Info Provided; Declines Information not available 01/09/2024 Mechanical Ordnance Assembler On Aging Yes Information not available 01/09/2024 [...] of Parkinson's. Father age 46 of an NE. he has 3 brothers, one w/ CAD, and 2 sisters, one w/ MS and CAD. Medical History No medical history recorded. Immunizations Vaccine Type Date Status Provider Name and Address Organization Details Recorded Time COVID-19, mRNA, LNP-S, PF, oly-sucrose, 30 mcg/0.3 mL 10/25/[address], [place], [address], [facility] 10/25/2023 10:10:11 Td (adult), 2 Lf tetanus toxoid, preservative free, adsorbed 09/09/2018 completed Not Available [facility] 05/24/2023 05:17:56 Tdap 05/31/2009 completed Not Available [facility] 05:17:56 zoster live 02/01/2014 completed Not Available [facility] 05/24/2023 05:17:56 Pneumococcal conjugate PCV 13 07/12/2015 completed Not Available [facility] 05/24/2023 05:17:57 Influenza, split virus, trivalent, preservative 05/20/2015 completed Not Available [facility] 05/24/2023 05:17:57 Influenza, split virus, trivalent, preservative 05/29/2016 completed Not Available [facility] 05/24/2023 05:17:57 Influenza, split virus, quadrivalent, PF 04/28/2019 completed Not Available [facility] 05/24/2023 05:17:57 Influenza, split virus, quadrivalent, PF 04/29/2020 completed Not Available [facility] 05/24/2023 05:17:57 Influenza, split virus, quadrivalent, preservative 06/03/2018 completed Not Available [facility] 05/24/2023 05:17:57 Influenza, high-dose, quadrivalent, PF 04/20/2021 completed Not Available [facility] 05/24/2023 05:17:57 Influenza, high-dose, quadrivalent, PF 04/26/2022 completed Not Available [facility] 05/24/2023 05:17:57 COVID-19, mRNA, LNP-S, PF, 100 mcg/0.5mL dose or 50 mcg/0.25mL dose 09/15/2020 completed Not Available [facility] 05/24/2023 05:17:57 COVID-19, mRNA, LNP-S, PF, 100 mcg/0.5mL dose or 50 mcg/0.25mL dose 10/13/2020 completed Not Available [facility] 05/24/2023 05:17:57 SARS-COV-2 (COVID-19) vaccine, UNSPECIFIED 05/15/2021 completed Not Available [facility] 05/24/2023 05:17:57 COVID-19, mRNA, LNP-S, bivalent, PF, 30 mcg/0.3 mL dose 05/02/2022 completed Not Available [facility] 05/24/20 05:17:58 pneumococcal polysaccharide PPV23 08/22/2010 completed Not Available [facility] 2022 05:17:58 pneumococcal polysaccharide PPV23 08/29/2016 completed Not Available [facility] 2022 05:17:58 Hep B, unspecified formulation 11/21/2012 completed Not Available [facility] 05/24/2023 05:17:58 Influenza, high-dose, quadrivalent, PF 05/03/2023 completed Not Available [facility] 07/26/2023 05:31:29 Past Encounters Encounter ID Performer Location Encounter Start Date Encounter Closed Date Diagnosis/Indication Diagnosis SNOMED-CT Code Diagnosis ICD10 Code [id number] TAMIA TAYLOR PA-C [address] [id number] 03/26/2024 14:00:36 03/26/2024 15:23:30 Hyperglycemia due to type 2 diabetes mellitus 4423951482 05810 E11.65 Congestive heart failure 39559015 I50.9 Anemia 526069291 D64.9 Hypomagnesemia 930445767 E83.42 Cellulitis of right foot 9169344489 2608388 L03.115 Gastroesop hageal reflux disease 457030770 K21.9 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 Goal not achieved SYLVIA JULIANNE Information not available 01/09/2024 17:59:07 More Care Coordination &/or Support Services Improve Care Coordination with Primary Care Provider (PCP), Specialist(s), Care Team, &/or Support Services. Goal not achieved SYLVIA JULIANNE Information not available 01/09/2024 18:24:46 Health Concerns Section Related Observation LastModified by Organization Detai ls LastModified Time None Recorded Concern Status LastModified by Organization Details LastModified Time None Recorded Payers Encounter Date Sequence Insurance Name Policy Number Policy Michele Covered Member ID Michele Member ID Guarantor Name 03/26/2024 [address] [facility] (MEDICARE REPLACEMENT HMO) [id number] Johnson R Ekaterina [id number] Johnson R Ekaterina Notes Date Note Type Note Provider Name and Address Organization Details Recorded Time 03/26/2024 text/html HPI Notes: Noam flores presents for f/u recent hospitalizations He present to [facility] with chest heaviness and dizziness on 02/22 and found to have NSTEMI in which he was transferred to [facility]. Patient suffered a stroke([employer] occlusion and infarction) after cardiac catheterization procedure. He received tpaHe received treatment and was hospitalized at [facility] for a week before being transferred to a rehab facility ([facility]) for four to five days. He is [...] Patient is on a low sodium diet. [address], [place], [address], [place] - [facility]. 03/26/2024 17:23:52
--- OUTSIDE RECORDS SUMMARY | 2024-04-02 21:09 | XMS_ITS | Encounter Summary ---
Author Organization [facility] Address [address] [place] [address] Care Team Providers Care Quality Assurance Specialist Name Role Phone Unknown, Provider Primary Care Provider Encounter Details Date Type Department Care Team (Late st Contact Info) Description 01/06/2024 Lab Requisition [facility] Pathology & Laboratory Medicine - [facility] [address], [place] [address] Outr Resulting Lab, Provider Social History Tobacco [...] 55.8 - 66.1 % 01/07/2024 12:38 EDT [facility] Albumin g/dL 4.2 3.6 - 5.2 g/dL 01/07/2024 12:38 EDT [facility] Alpha-1 % 3.9 2.9 - 4.9 % 01/07/2024 12:38 EDT [facility] Alpha-1 g/dL 0.30 0.15 - 0.40 g/dL 01/07/2024 12:38 [facility] Alpha-2 % 13.7(H) 7.1 - 11.8 % 01/07/2024 12:38 [facility] Alpha-2 g/dL 1.00 0.50 - 1.00 g/dL 01/07/2024 12:38 [facility] Beta % 13.1 8.4 - 13.1 % 01/07/2024 12:38 [facility] Beta g/dL 1.00 0.60 - 1.20 g/dL 01/07/2024 12:38 [facility] Gamma % 13.2 11.1 - 18.8 % 01/07/2024 12:38 [facility] Gamma g/dL 1.00 0.60 - 1.60 g/dL 01/07/2024 12:38 [facility] SPEP Comment No apparent monoclonal protein seen on serum electrophoresis 01/07/2024 12:38 [facility] Comment:See scanned/suppleme ntary report. Total Protein 7.4 6.3 - 8.2 g/dL 01/07/2024 12:38 [facility] Blood VENOUS BLOOD / Unknown 01/06/2024 11:35 EDT 01/06/2024 22:31 EDT Provider Outr Resulting Lab CHEMISTRY & BLOOD GAS ORDERABLES Performing Organization Address City/[facility]/ZIP Co de Phone Number [facility] [address], [place] [id number] * PROTEIN, TOTAL (01/06/2024 11:35 EDT) Blood VENOUS BLOOD / Unknown 01/06/2024 11:35 EDT 01/06/2024 22:31 EDT Provider Outr Resulting Lab CHEMISTRY & BLOOD GAS ORDERABLES Performing Organization Address City/[facility]/ZIP Co de Phone Number [facility] [address] [place] [address] documented in this encounter Visit Diagnoses Not on filedocumented in this encounter Care Teams Quality Assurance Specialist Relationship Specialty Start Date End Date Unknown, Provider, PCP - General 05/15/21 documented as of this encounter
--- OUTSIDE RECORDS SUMMARY | 2024-04-02 21:09 | XMS_ITS | Continuity of Care Document ---
Author Organization [facility] Address [address] [place] [address] Care Team Providers Care Humanities Department Chair Name Role Phone TAMIA TAYLOR Primary Care Provider MATEO GLASS Molder Wax Ball DOWELL KATHLEEN Tetryl Screen Operator DELPHINE OLSEN Community Health Worker WINTER LACKEY OTHER DEISY WALDEN Roofer Gypsum/Topstitcher Zigzag [facility] RESIDENT DOCTOR-RAJEEV LEVIN Roofer Gypsum/Nutritioni st BURT DASILVA Dentist [phone] ANTONIA FARRIS [facility] [phone] Assessment Encounter Date Assessment Date Assessment LastModified [...] devoted to today's encounter, including both the rlya-[id number]-djnu time with the patient and/or family/caregiv er and sfx-cnhg-eu-fa ce time I personally spent is 30 minutes. Not available 01/31/2024 17:04:02 Plan of Treatment Reminders Order Date Submit Date Provider Last Modified By Organization Details Last Modified Time Details Appointments Follow Up 30 2023 11:30A M Not available Not available Not available Lab None recorded. Referral physical therapist referral 2023 024 [email or web address] [facility], [address], [address], [place], [address], 04/01/2024 08:57:10 Procedures None recorded. Surgeries None recorded. Imaging MRI, lumbar spine, w/o contrast [address] [facility], [address], [place], [address], 03/04/2024 07:57:33 XR, lumbar spine 2023 024 [facility], [address], [place], [address], 02/04/2024 08:35:54 Medication Orders cyclobenz aprine 5 mg tablet 2023 024 [email or web address] [facility], [address], [place], [address], 03/26/2024 14:10:19 Medrol (Jacky) 4 mg tablets in a dose pack 2023 024 [email or web address] [facility], [address], [place], [address], 03/02/2024 16:10:59 Patient TargetsNo targets recorded. Patient Instructions Encounter Date Encounter Id Patient Instructions Last Modified By Organization Details Last Modified Time 01/31/2024 [id number] You have been started on {{prednisone a prednisone taper methylpredn isone (medrol dose jacky)*}}. Take as instructed on the bottle. While on prednisone you can feel hungry, thirsty, energized (take in the morning with food) and can affect mood. It is important to avoid NSAIDs (ie ibuprofen, aleve, advil, naproxen etc) while on prednisone. You can take tylenol/acetamino phen if needed for pain relief 2 tablets [...] to drive during the day. Go to {{ ([facility])* Reji black [facility] ([facility]) [facility] ([facility]) [facility] ([facility]) [facility] ([facility]) [facility] ([facility]) [facility]}} for {{fasting blood work (water or black coffee only for at least 8 hours) bloodwork X-ray* }} (no appointment needed), please allow up to 2 weeks to hear about results {{ ([facility])* Reji black [facility] ([facility]) [facility] ([facility]) [facility] ([facility]) [facility] ([facility]) [facility] ([facility]) [facility]}} will contact you to schedule {{bone density CT scan Heart Monitor mammogram MRI* Ultrasound Stress Test Xray}}. If you do not receive a call in 7-10 days please contact the office. A referral has been placed for {{Allergy Audiolo gy Bariatric Card iology Colonoscop y Roofer Gypsum Endoc rinology ENT Jacquelin roenterology Gene ral Surgery Genetics Hematology/Oncolo gy Nephrology Miguel rology POLICE CAPTAIN PRECINCT Opt ometry/Ophthalmol ogy Orthopedics [facility]* Podiatry Psychiatry Pulmo nology Rheumatolo gy Sleep Clinic Spine Clinic Urology Va scular Surgery}} at {{ ([facility])* Reji black [facility] ([facility]) [facility] ([facility]) [facility] ([facility]) [facility] ([facility]) [facility] ([facility]) [facility]}}. If you do not receive a call to schedule an appointment in 7-10 days, please contact our product development coordinator at call me if blood sugars are greater than 300 keep appt as scheduled for next week Call with any questions or concerns [email or web address] Not available 01/31/2024 15:41:51 Reason for Referral Urologist Referral for Prost ate specific antigen above reference range elevated PSA 8.7 and nocturia. recently treated for cystitis. 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 L2-L3: Fingerprint Clerk ior osteop hyte disc comple x with bilate ral facet joint arthro rober and ligame ntum flavum hypert rophy causin g modera te thecal sac compre ssion and modera te narrow ing of both neural forami na. L3-L4: Fingerprint Clerk ior osteop hyte disc comple x with bilate ral facet joint arthro rober and ligame ntum flavum hypert rophy causin g modera te thecal sac compre ssion and modera te narrow ing of both neural forami na. There is a right forami nal disc protru celestino. L4-L5: Fingerprint Clerk ior osteop hyte disc comple x with bilate ral facet joint arthro rober and ligame ntum flavum hypert rophy causin g severe thecal sac compre ssion and modera te narrow ing of both neural forami na, more on the right side. L5-S1: Fingerprint Clerk ior osteop hyte disc comple x with [...] by: Anthony Camilo On 2023 11:18: 55 [address], [place], [address], 02/18/2024 12:57:36 02/23/20 24 02/23/2024 XR, chest [...] by: Sheeba Yang On 2023 10:36: 18 [email or web address] [address], [place], [address], 02/23/2024 21:53:44 03/09/20 24 03/09/2024 CT, head [...] by: Dorina Mojica On 2023 07:05: [email or web address], [place], [address], 03/09/2024 10:07:54 03/09/20 24 03/09/2024 XR, chest [...] by: Dorina Mojica On 2023 07:06: [email or web address], [place], [address], 03/09/2024 10:07:54 03/10/20 24 03/10/2024 MRI, brain [...] hemosi christopher staini ng in the right shell press operator ior mesial tempor al lobe involv ing hippoc ampus as well as subacu te methem oglobi n in the shell press operator ior thalam us. There is minima l [...] l right thalam us and adjace nt shell press operator ior limb of international operations manager al capsul e which is theref ore [...] to chroni c infarc t in right shell press operator ior mesial tempor al lobe with both subacu te and chroni c hemorr sylvain. Additi onal area of subacu te hemorr sylvain in the right shell press operator ior thalam us. 2. Separa te area of restri cted diffus ion and acute to subacu te infarc t withou t hemorr sylvain in right latera l thalam us and adjace nt shell press operator ior limb of international operations manager al capsul e. Report signed by: Diana Riddle eyer On 2023 15:41: [address], [place], [address], 03/10/2024 16:49:36 03/11/20 24 03/11/2024 XR, chest [...] NGOC: CR XR CHEST 1 VW 024 6:22 AM and chest x-ray 2023 FINDIN [...] joints : Sterno montez. Old, healed right shell press operator ior 8th rib fractu re. IMPRES CELESTINO: Increa sing pulmon pao venous conges tion and edema in the upper lungs. Report signed by: Robin Angel On 2023 02:07: [address], [place], [address], 03/12/2024 10:31:05 03/11/20 24 03/10/2024 MRI, brain , w/o contr ast CRITIC AL FINDIN G Addend um create d by Diana byers MD on 7:02:3 6 AM EDT: MOISES reyna ed report and has no questi ons. Also, techno logist replie d that [facility] has seen report . Initia [...] hemosi christopher staini ng in the right shell press operator ior mesial tempor al lobe involv ing hippoc ampus as well as subacu te methem oglobi n in the shell press operator ior thalam us. There is minima l [...] l right thalam us and adjace nt shell press operator ior limb of international operations manager al capsul e which is theref ore [...] to chroni c infarc t in right shell press operator ior mesial tempor al lobe with both subacu te and chroni c hemorr sylvain. Additi onal area of subacu te hemorr sylvain in the right shell press operator ior thalam us. 2. Separa te area of restri cted diffus ion and acute to subacu te infarc t withou t hemorr sylvian in right latera l thalam us and adjace nt shell press operator ior limb of international operations manager al capsul e. Report signed by: Diana byers On 2023 07:02: [address] [address], [place], [address], 03/12/2024 10:31:04 03/11/20 24 03/10/2024 MRI, brain [...] cted diffus ion in the medial and shell press operator ior right tempor al lobe which has nearly resolv ed except for the 2 small linear areas. This theref ore is consis tent with subacu te to chroni c infarc t at this time. The area of subacu te hemorr sylvain in the shell press operator ior aspect of the thalam us is locate d in area acute to subacu te infarc t in the right shell press operator ior thalam us on prior examin ation. Restri cted diffus ion in this locati on has resolv ed. Addend um create d by Diana byers MD on 7:02:3 6 AM EDT: MOISES amado receiv ed report and has no questi ons. Also, techno logist replie d that [facility] carrie has seen report . Initia l [...] hemosi christopher staini ng in the right shell press operator ior mesial tempor al lobe involv ing hippoc ampus as well as subacu te methem oglobi n in the shell press operator ior thalam us. There is minima l [...] l right thalam us and adjace nt shell press operator ior limb of international operations manager al capsul e which is theref ore [...] to chroni c infarc t in right shell press operator ior mesial tempor al lobe with both subacu te and chroni c hemorr sylvain. Additi onal area of subacu te hemorr sylvain in the right shell press operator ior thalam us. 2. Separa te area of restri cted diffus ion and acute to subacu te infarc t withou t hemorr sylvain in right latera l thalam us and adjace nt shell press operator ior limb of international operations manager al capsul e. Report signed by: Diana Riddle eyer On 2023 14:37: [address] [address], [place], [address], 03/12/2024 10:31:04 03/11/20 24 03/11/2024 CT, head [...] hippoc ampus. Trace hyperd ensity along the shell press operator ior aspect of the right thalam us and along the shell press operator omedia l right hippoc ampus may correl [...] ampus. 2. Trace hyperd ensity along the shell press operator ior aspect of the right thalam us and along the shell press operator omedia l right hippoc ampus may correl ate with areas of microh emorrh age as demons trated on prior MRI. 3. Other chroni c findin gs, as above. Report signed by: Daniel Stanton On 2023 17:14: [address], [place], [address], 03/11/2024 18:42:20 03/12/20 24 03/12/2024 US extre [...] REPORT 024 4:27 PM: ANALILIA SAUNDERS M.D. [address], [place], [address], 03/12/2024 18:10:18 03/17/20 24 03/17/2024 XR, chest [...] by: Kaye Mccabe On 2023 10:21: [address], [place], [address], 03/17/2024 11:49:43 03/30/20 24 06/03/2020 XR, chest No observ ation record ed. Not Available 03/30 19:44:43 03/30/20 24 05/26/2020 XR, chest No observ ation record ed. Not Available 03/30 19:44:44 03/30/2006/13/2020 XR, chest No observ ation record ed. [...] ation record ed. Not Available 03/30 19:47:51 03/30/2003/11/2023 imagi ng/di agnos tic resul t No [...] ation record ed. Not Available 03/30 19:47:59 03/30/2006/03/2020 imagi ng/di agnos tic resul t No [...] by: William Bryant On 01/31/2024 16:53:31 NICK GRETEL [facility] 02/04/2024 08:35:54 Problems Name Problem SNOMED Code Status Onset Date Resolution Date Notes Provider Name and Address Organization Details Recorded Time Hyperlip idemia 01351602 Active 2001 [facility] 4 10:52:48 Gastroes ophageal reflux disease without esophagi tis 356822982 Active 2001 [facility] 4 10:52:40 Aortic stenosis , non-rheu matic 954035160 Active 2012 [facility] 4 10:51:50 Type 2 diabetes mellitus without complica tion 024521793 Completed 200103/24/2024 TAMIA TAYLOR PA-C [address] [place] [address] , [place], [address] [facility] 4 12:13:19 Atherosc lerosis of coronary artery without angina pectoris 97116506766 4103 Active 2001 CAD [facility] 4 10:52:05 [facility]entia l hyperten celestino 03674382 Active 2014 [facility] 4 10:52:32 Posterio r rhinorrh ea 20828982 Completed 201607/11/2017 05/30/20 17 - Comments only - Binu Cortes PA-C - Recommen d trial nasal saline. Follow-u p if not improved . Problem Code: R09.82; Problem Code Type: ICD-10; Not Available [facility] 3 05:30:35 Pre-surg eri sushantati on Completed 201705/30/2018 04/18/20 18 - Comments [...] Z01.818; Problem Code Type: ICD-10; Not Available [facility] 3 05:30:35 Impacted cerumen in left ear 03379278978 07401 Completed 202009/30/2020 09/30/19 21 - Comments only - Tamia KISER - Flush performe d without complica tions Problem Code: H61.22; Problem Code Type: ICD-10; Not Available [facility] 3 05:30:35 Pain of left shoulder joint 78569531908 443085 Completed 202009/30/2020 09/30/19 21 - Comments only - Tamia KISER - Likely a strain or mild tendinop athy. Recommen ded rest heating pad and muscle rub. Stretche s as tolerate d. Problem Code: M25.512; Problem Code Type: ICD-10; Not Available [facility] 3 05:30:35 Pain of joint of knee 5989716227 Active 2020 Knee pain, chronic, b/l Vanita Martínez null, [place] - [facility], [facility]. 4 10:53:38 Rheumati c mitral stenosis 59439734 Active 2020 mod 02/2024 [facility] echo SRIKANTH TUTTLE MD [address], [place], [address] , [place] - [facility]. 4 07:49:56 Screenin g for malignan t neoplasm of colon Completed 202004/21/2021 04/20/20 21 - Comments only - Tamia KISER - Referral to [facility] surgery for screenin g colonosc opy. Patient is overdue by 6 years. He denies hematoch ezia, melena and bowel changes. Problem Code: Z12.11; Problem Code Type: ICD-10; Not Available [facility] 3 05:30:36 Viral screenin g Completed 202110/19/2021 10/19/19 22 - Comments only - Tamia KISER - Hep C drawn today for screenin g purposes Problem Code: Z11.59; Problem Code Type: ICD-10; Not Available [facility] 3 05:30:36 [place] ht 077779664 Active 2021 ALIX [place] - [facility] 4 10:53:19 Pre-surg eri evaluati on Completed 202102/23/2022 02/23/20 22 - Comments only - Tamia KISER - /Catarac t patient s chronic medical issues are stable. His blood sugar is not optimal but stable enough for this procedur e. Recommen d routine perioper ative care for upcoming low risk procedur e. Problem Code: Z01.818; Problem Code Type: ICD-10; Not Available [facility] 3 05:30:36 Senile cataract 64588676 Completed 202102/23/2022 Problem Code: H25.9; Problem Code Type: ICD-10; Not Available [facility] 3 05:30:36 Coronary arterios clerosis 62929420 Completed 200109/06/2015 Not Available [facility] 3 05:30:36 Gastro-e sophagea l reflux disease with esophagi tis 027298905 Completed 200104/10/2023 Problem Code: 530.11; Problem Code Type: ICD-9; Not Available [facility] 3 05:30:37 Blood glucose outside referenc e range 338373901 Completed 200104/10/2023 Problem Code: R73.09; Problem Code Type: ICD-10; Not Available [facility] 3 05:30:37 Itching of skin 601769645 Completed 202011/10/2020 Problem Code: L29.9; Problem Code Type: ICD-10; Not Available On license of [facility] 3 05:30:37 Glucose level outside referenc e range 546700921 Completed 200104/10/2023 Problem Code: 790.29; Problem Code Type: ICD-9; Not Available On license of [facility] 3 05:30:37 Aortic valve disorder 7911902 Completed 201204/10/2023 Problem Code: 424.1; Problem Code Type: ICD-9; Not Available On license of [facility] 3 05:30:37 Dysuria 78168721 Completed 202206/06/2023 Problem Code: R30.0; Problem Code Type: ICD-10; Not Available On license of [facility] 4 05:36:43 Blood in urine 55922567 Active 2022 Vanita Mauricio null, [facility] 4 10:52:20 Abdomina l pain 77271816 Active 2022 Flank pain, right Vanita Mauricio null, [facility] 4 10:51:41 Nocturia 529479777 Active 2022 Vanita Mauricio null, [facility] 4 10:53:10 Inguinal hernia 772307363 Active 2022 right Vanita Mauricio null, [facility] 4 10:53:00 Lumbago with sciatica 428653008 Active 2023 TAMIA TAYLOR PA-C [address], [place], [address] , [facility] 4 15:37:21 Lumbar spondylo sis with myelopat hy 96926869 Active 2023 TAMIA TAYLOR PA-C [address], [place], [address] , [facility] 4 13:01:42 Acute non-ST segment elevatio n myocardi al infarcti on 861021490 Active 2023 R BOBBIN FIXER occlusio n and infarcti on associat ed w/ cardiac cath, s/p tPA Saskia Ramirez RN null, [facility] 4 16:06:53 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 621958509 Active 2023 s/p tPA [address], [place], [address] , [facility] 4 15:54:14 Right carotid artery stenosis 72005111923 9100 Active 2023 ulysses <50% [facility] 02/[address], [place], [address] , [facility] 4 07:50:29 Transcat heter aortic valve implanta tion Active [address], [place], [address] , [facility] 4 07:47:30 Congesti ve heart failure 16288171 Active 2023 Saskia Ramirez RN null, [facility] 4 09:11:03 Hypergly cemia due to type 2 diabetes mellitus 24123347195 9109 Active [address], [place], [address] , [facility] 4 12:13:33 Anemia 643647493 Active 2023 B12- low end of normal at 210 serum iron low recd suppleme ntation and recheck iron studies mid Jun [address], [place], [address] , [facility] 4 14:20:37 Hypomagn esemia 110662929 Active [address], [facility] [address] , [facility] 14:21:16 Problem Notes None recorded. Procedures Surgical History Date Name Laterality Status Provider Name and Address Organization Details Recorded Time 02/23/20 24 cardiac catheterization completed [address], [facility] [address], [facility] 02/26/2024 10:29:14 06/13/20 20 replacement of aortic valve completed [address], [address] 07/03/2023 16:23:48 Appendectomy completed [address], [facility] [address], [facility] 07/03/2023 16:22:23 Tonsillectomy completed [address], [facility] [address] [place] [address] 07/03/2023 16:22:42 Cataract Surgery completed [address], [facility] [address] [place] [address] 07/03/2023 16:24:20 Cabg vein three completed [address], [facility] [address], [facility] 07/03/2023 16:24:28 Imaging Results None recorded. Procedure Notes None recorded. Medical Equipment None Reported. Allergies Allergen ID Allergen Name Allergen Category Reaction Reaction Severity Criticality Documentation Date Start Date Code Code System Note Provider Name and Address Organization Details Recorded Time 24353 ticlopidi ne medicatio n other moderate Not available 10/17/20232001 44922 RxNorm (Ticl id tabs) [facility] 10:54:55 12344 lisinopri l medicatio n cough Not available Not available 03/26/2024 76361 RxNorm JOJO HORNE RN null, [place] - [facility]. 14:09:37 Medications Name Sig Start Date [...] a day by oral route. 03/23 completed [facility] Not Available Not Available Not Available glipizide ER 5 mg tablet, extended release 24 hr Take 1 tab by mouth daily (take with 10mg glipizid e ER) 11/10 completed Not Available Not Available Not Available clopidogr el 75 mg tablet TAKE ONE TABLET BY MOUTH EVERY DAY 03/23 completed stopped per jaci chery discharg e summary Not Available Not Available [...] 06/01/22 -Pt is enrolled and approved in [facility] Pt assistan ce program through Meghan Dias. [...] Updated DateTime 4 168.91 cm 27.5 kg/m2 32647.4 8 g 97 % 97 % 63 /min 134 mm[Hg] 86 mm[Hg] Parker Farmer RN [facility] 15:10:10 Social History Question Answer Notes LastModified by Organizat ion Details LastModified Time Tobacco Smoking Status Never Smoker CORIE ACUNA, [facility] 07/26/2023 08:35:54 1) Date Of Last [...] Printed: 01/09/2024 Information not available 01/09/2024 Assigned Bench Carpenter: Sylvia Dowell Information not available 01/09/2024 Is [facility] The Lead Bench Carpenter? Yes Information not available 01/09/2024 Level Of Intensity: Quarterly Information not available 01/09/2024 Team Based Care: Yes Information not available 01/09/2024 Other Barriers To Care (See Note) Yes Denies Language Barrier: Macedonian Is Primary Language, But He Speaks & Reports Reads Syrian Well Information not available 01/09/2024 Last Care Team Meeting 05/23/2023 Information not available 01/09/2024 Financial Barrier Yes Limited Income; Eligible For Medication Patient Assistance Programs (Cardiac & Diabetes Meds) Information not available 01/09/2024 Behavioral Health Yes Information not available 01/09/2024 Community Missileman Yes Information not available 01/09/2024 Dental Services Yes Informati on not available 01/09/2024 Diabetes Education Yes Information not available 01/09/2024 Medication Assistance Yes Information not available 01/09/2024 Social Security/Disabi lity Yes Information not available 01/09/2024 Diabetes Self Management Program Yes Info Provided; Declines Information not available 01/09/2024 Diabetes Support Group Yes Info Provided; Declines Information not available 01/09/2024 Health Laborer [place] For HTN Control Yes Info Provided; Declines Information not available 01/09/2024 Director Customer On Aging Yes Information not available 01/09/2024 [...] of Parkinson's. Father age 46 of an MD. he has 3 brothers, one w/ CAD, and 2 sisters, one w/ MS and CAD. Medical History No medical history recorded. Immunizations Vaccine Type Date Status Provider Name and Address Organization Details Recorded Time COVID-19, mRNA, LNP-S, PF, oly-sucrose, 30 mcg/0.3 mL 10/25/2023 cancelled TAMIA TAYLOR PA-C [address], [place], [address], [facility] 10/25/2023 10:10:11 Td (adult), 2 Lf tetanus toxoid, preservative free, adsorbed 09/09/2018 completed Not Available [facility] 05/24/2023 05:17:56 Tdap 05/31/2009 completed Not Available [facility] 05:17:56 zoster live 02/01/2014 completed Not Available [facility] 05/24/2023 05:17:56 Pneumococcal conjugate PCV 13 07/12/2015 completed Not Available [facility] 05/24/2023 05:17:57 Influenza, split virus, trivalent, preservative 05/20/2015 completed Not Available [facility] 05/24/2023 05:17:57 Influenza, split virus, trivalent, preservative 05/29/2016 completed Not Available [facility] 05/24/2023 05:17:57 Influenza, split virus, quadrivalent, PF 04/28/2019 completed Not Available [facility] 05/24/2023 05:17:57 Influenza, split virus, quadrivalent, PF 04/29/2020 completed Not Available [facility] 05/24/2023 05:17:57 Influenza, split virus, quadrivalent, preservative 06/03/2018 completed Not Available [facility] 05/24/2023 05:17:57 Influenza, high-dose, quadrivalent, PF 04/20/2021 completed Not Available [facility] 05/24/2023 05:17:57 Influenza, high-dose, quadrivalent, PF 04/26/2022 completed Not Available [facility] 05/24/2023 05:17:57 COVID-19, mRNA, LNP-S, PF, 100 mcg/0.5mL dose or 50 mcg/0.25mL dose 09/15/2020 completed Not Available [facility] 05/24/2023 05:17:57 COVID-19, mRNA, LNP-S, PF, 100 mcg/0.5mL dose or 50 mcg/0.25mL dose 10/13/2020 completed Not Available [facility] 05/24/2023 05:17:57 SARS-COV-2 (COVID-19) vaccine, UNSPECIFIED 05/15/2021 completed Not Available [facility] 05/24/2023 05:17:57 COVID-19, mRNA, LNP-S, bivalent, PF, 30 mcg/0.3 mL dose 05/02/2022 completed Not Available [facility] 05/24/20 05:17:58 pneumococcal polysaccharide PPV23 08/22/2010 completed Not Available [facility] 2022 05:17:58 pneumococcal polysaccharide PPV23 08/29/2016 completed Not Available [facility] 2022 05:17:58 Hep B, unspecified formulation 11/21/2012 completed Not Available [facility] 05/24/2023 05:17:58 Influenza, high-dose, quadrivalent, PF 05/03/2023 completed Not Available [facility] 07/26/2023 05:31:29 Past Encounters Encounter ID Performer Location Encounter Start Date Encounter Closed Date Diagnosis/Indication Diagnosis SNOMED-CT Code Diagnosis ICD10 Code [id number] TAMIA TAYLOR PA-C [address] [address] 01/31/2024 15:01:16 01/31/2024 15:49:17 Lumbago with sciatica 655391686 M54.42 Goals Section Goal Description Status Start Date [...] Concerns Section Related Observation LastModified by Organization Emmanuel ls LastModified Time None Recorded Concern Status LastModified by Organization Details LastModified Time None Recorded Payers Encounter Date Sequence Insurance Name Policy Number Policy Michele Covered Member ID Michele Member ID Guarantor Name 01/31/2024 1 [facility] (MEDICARE REPLACEMENT HMO) [id number] Johnson López Ekaterina [id number] Johnson R Ekaterina Notes Date Note Type Note Provider Name and Address Organization Details Recorded Time 01/31/2024 text/html HPI Notes: 73-year-old male presents with left lower back pain [...] anesthesia TAMIA TAYLOR PA-C [address], [place], [address], [facility]. 01/31/2024 17:04:16
--- OUTSIDE RECORDS SUMMARY | 2024-04-02 21:09 | XMS_ITS | Encounter Summary ---
Author Organization [facility] Address [address] [place] [address] Care Team Providers Care Manager Client Name Role Phone Unknown, Provider Primary Care Provider [phone] Encounter Details Date Type Department Care Team (Late st Contact Info) Description 01/06/2024 Lab Requisition [facility] Pathology & Laboratory Medicine - [facility] [address], [place] [address] Outr Resulting Lab, Provider Social History Tobacco [...] % 67.9 N/A % 01/07/20 15:15 EDT [facility] Albumin, Urine mg/dL 86 mg/dL 01/07/2024 15:15 EDT [facility] Globulins, Urine % 32.1 N/A % 01/07/2024 15:15 EDT [facility] Globulins, Urine mg/dL 40 mg/dL 01/07/2024 15:15 EDT [facility] UPEP Comment See Comment 01/07/2024 15:15 EDT [facility] Comment:Electrophoresis scre ening performed; Immunotyping to follow. ??See scanned/supplementary report. Immunotyping, Urine Current Interpretatio n: Negative for free monoclonal light chains. Reviewed by: Jeremy Galloway MD 01/07/2024 1315 01/07/2024 15:15 EDT [facility] Total Protein, Urine 126 See Note mg/dL 01/07/2024 15:15 EDT [facility] Comment: NOTE: Reference range has not been established for total protein concentration in random urine specimens. Urine URINE / Unknown 01/06/2024 1 1:35 EDT 01/06/2024 22:26 EDT Provider Outr Resulting Lab URINALYSIS O RDERABLES Performing Organization Address [facility] Co de Phone Number [facility] [address] [place] [phone] * PROTEIN, TOTAL, RANDOM, URINE (01/06/2024 11:35 EDT) Urine URINE / Unknown 01/06/2024 1 1:35 EDT 01/06/2024 22:26 EDT Provider Outr Resulting Lab URINALYSIS O RDERABLES Performing Organization Address [facility] Co de Phone Number [facility] [address] [place] [address] documented in this encounter Visit Diagnoses Not on filedocumented in this encounter Care Teams Manager Client Relationship Specialty Start Date End Date Unknown, Provider, PCP - General 05/15/21 documented as of this encounter
--- OUTSIDE RECORDS SUMMARY | 2024-04-02 21:09 | XMS_ITS | Referral Summary ---
Author Organization [facility] Address [address] [place] [address] Care Team Providers Care Meteorologist In Charge Name Role Phone Unknown, Provider Primary Care Provider Encounters Date Type Department Care Team Description 01/06/2024 Lab Requisition [facility] Pathology & Laboratory [facility] [address] [place] [address] Outr Resulting Lab, Provider 01/06/2024 Lab Requisition [facility] Pathology & Laboratory [facility] [address] [place] [address] Outr Resulting Lab, Provider from Last 3 [...] % 67.9 N/A % 01/07/20 15:15 EDT [facility] Albumin, Urine mg/dL 86 mg/dL 01/07/2024 15:15 [facility] Globulins, Urine % 32.1 N/A % 01/07/2024 15:15 T [facility] Globulins, Urine mg/dL 40 mg/dL 01/07/2024 15:15 [facility] UPEP Comment See Comment 01/07/2024 15:15 [facility] Comment:Electrophoresis scre ening performed; Immunotyping to follow. ??See scanned/supplementary report. Immunotyping, Urine Current Interpretatio n: Negative for free monoclonal light chains. Reviewed by: Jeremy Galloway MD 01/07/2024 1315 01/07/2024 15:15 EDT [facility] Total Protein, Urine 126 See Note mg/dL 01/07/2024 15:15 [facility] Comment: NOTE: Reference range has not been established for total protein concentration in random urine specimens. Urine URINE / Unknown 01/06/2024 1 1:35 EDT 01/06/2024 22:26 EDT Provider Outr Resulting Lab URINALYSIS O RDERABLES [facility] [address] [place] [address] * (ABNORMAL) SPEP, INCLUDES QUANTITATION OF MONOCLONAL SPIKE PERFORMABLE (01/06/2024 11:35 EDT) Albumin % 56.1 55.8 - 66.1 % 01/07/2024 12:38 EDT [facility] Albumin g/dL 4.2 3.6 - 5.2 g/dL 01/07/2024 12:38 [facility] Alpha-1 % 3.9 2.9 - 4.9 % 01/07/2024 12:38 [facility] Alpha-1 g/dL 0.30 0.15 - 0.40 g/dL 01/07/2024 12:38 [facility] Alpha-2 % 13.7(H) 7.1 - 11.8 % 01/07/2024 12:38 [facility] Alpha-2 g/dL 1.00 0.50 - 1.00 g/dL 01/07/2024 12:38 [facility] Beta % 13.1 8.4 - 13.1 % 01/07/2024 12:38 [facility] Beta g/dL 1.00 0.60 - 1.20 g/dL 01/07/2024 12:38 [facility] Gamma % 13.2 11.1 - 18.8 % 01/07/2024 12:38 [facility] Gamma g/dL 1.00 0.60 - 1.60 g/dL 01/07/2024 12:38 [facility] SPEP Comment No apparent monoclonal protein seen on serum electrophoresis 01/07/2024 12:38 [facility] Comment:See scanned/suppleme ntary report. Total Protein 7.4 6.3 - 8.2 g/dL 01/07/2024 12:38 [facility] Blood VENOUS BLOOD / Unknown 01/06/2024 11:35 EDT 01/06/2024 22:31 EDT Provider Outr Resulting Lab CHEMISTRY & BLOOD GAS ORDERABLES [facility] [address] [place] [address] * PROTEIN, TOTAL, RANDOM, URINE (01/06/2024 11:35 EDT) Urine URINE / Unknown 01/06/2024 1 1:35 EDT 01/06/2024 22:26 EDT Provider Outr Resulting Lab URINALYSIS O RDERABLES Performing Organization Address City/[facility]/ZIP Co de Phone Number [facility] [address], [place] [phone] * PROTEIN, TOTAL (01/06/2024 11:35 EDT) Blood VENOUS BLOOD / Unknown 01/06/2024 11:35 EDT 01/06/2024 22:31 EDT Provider Outr Resulting Lab CHEMISTRY & BLOOD GAS ORDERABLES Performing Organization Address [facility] Co de Phone Number [facility] [address], [place] [address] * HEPATITIS C AB W REFLEX TO HCV RNA BY PCR (10/18/2021 9:05 EDT) Hep C Antibody Negative Negative 10/20/2021 10:04 EDT [facility] Blood VENOUS BLOOD / Unknown 10/18/2021 9:05 EDT 10/19/2021 17:30 EDT Provider Outr Resulting Lab CHEMISTRY & BLOOD GAS ORDERABLES Performing Organization Address City/[facility]/ZIP Co de Phone Number [facility] [address] [place] [phone] from Last 3 Months or Most Recently Relevant to Health Maintenance Care Teams Meteorologist In Charge Relationship Specialty Start Date End Date Unknown, Provider, PCP - General 05/15/21
--- OUTSIDE RECORDS SUMMARY | 2024-04-02 21:09 | XMS_ITS | Encounter Summary ---
Author Organization [facility] Address [address] [place] [address] Care Team Providers Care Cementer Name Role Phone Unknown, Provider Primary Care Provider Encounter Details Date Type Department Care Team (Late st Contact Info) Description 06/16/2021 Lab Requisition [facility] Pathology & Laboratory Medicine - [facility] [address] [place] [address] Outr Resulting Lab, Provider Social History Tobacco [...] % 67.8 N/A % 06/19/20 14:49 EST [facility] Globulins, Urine % 32.2 N/A % 06/19/2021 14:49 EST [facility] UPEP Comment See Comment 06/19/2021 14:49 EST [facility] Comment:Electrophoresis scre ening performed; Immunotyping to follow. See scanned/supplementary report. Immunotyping, Urine Current Interpretation : Negative for free monoclonal light chains. Interpreted by: Sha Rico MD, PhD 06/19/2021 14:30. 06/19/2021 14:49 EST [facility] Total Protein, Urine 51 See Note mg/dL 06/19/2021 14:49 EST [facility] Comment: NOTE: Reference range has not been established for total protein concentration in random urine specimens. Urine URINE / Unknown 06/16/2021 9 :50 EST 06/16/2021 20:52 EST Provider Outr Resulting Lab URINALYSIS O RDERABLES Performing Organization Address [facility] de Phone Number [facility] [address] [place] [address] * PROTEIN, TOTAL, RANDOM, URINE (06/16/2021 9:50 EST) Urine URINE / Unknown 06/16/2021 9 :50 EST 06/16/2021 20:52 EST Provider Outr Resulting Lab URINALYSIS O RDERABLES Performing Organization Address [facility] Co de Phone Number [facility] [address] [place] [address] documented in this encounter Visit Diagnoses Not on filedocumented in this encounter Care Teams Cementer Relationship Specialty Start Date End Date Unknown, Provider, PCP - General 05/15/21 documented as of this encounter
--- OUTSIDE RECORDS SUMMARY | 2024-04-02 21:10 | XMS_ITS | Encounter Summary ---
Author Organization [facility] [place] [address] Care Team Providers Care Gas Mask Assembler Name Role Phone Tamia Tsai Primary Care Provider [phone] Encounter Details Date Type Department Care Team (Late st Contact Info) Description 03/11/2024 5:00 PM EDT Telehealth [place] [id number] Telehealth, Neurology None Social History Tobacco Use Types Packs/Day Years Used Date Smoking Tobacco: Never Smokeless Tobacco: Never Alcohol Use Standard Drinks/Week Comments Not Currently 0 (1 standard drink = 0.6 oz pur e alcohol) [facility] Utilities Answer Date Recorded In the past 12 months has e [employer], gas, oil, or water [employer] threatened to shut off services in your [...] time in the past 12 m [facility], were you homeless or living in a custodial (including now)? No 02/24/2024 IPV Inpatient Questions [...] 2:30 PM EST [place] [address] Susanna Cm, [facility] [place] [address] documented as of this encounter Visit Diagnoses Not on filedocumented in this encounter Care Teams Gas Mask Assembler Relationship Specialty Start Date End Date Tamia Tsai PA [address] [place] [phone] PCP - General Family Medicine 02/18/24 documented as of this encounter
--- OUTSIDE RECORDS SUMMARY | 2024-04-02 21:10 | XMS_ITS | Encounter Summary ---
Author Organization [facility] Address [facility] [place] [address] Care Team Providers Care Lock Master Name Role Phone Tamia Tsai Primary Care Provider [phone] Encounter Details Date Type Department Care Team (Late st Contact Info) Description 03/10/2024 2:40 PM EDT Ancillary Procedure Radiology Library at [facility] [place] [id number] Vitor Camara MD [facility] [place] [address] Social History Tobacco Use Types Packs/Day Years Used Date Smoking Tobacco: Never Smokeless Tobacco: Never Alcohol Use Standard Drinks/Week Comments Not Currently 0 (1 standard drink = 0.6 oz pur e alcohol) [facility] Utilities Answer Date Recorded In the past 12 months has e electric, gas, oil, or water [employer] threatened to shut off services in your [...] any time in the past [facility], were you homeless or living in a half-way (including now)? No 02/24/2024 IPV Inpatient Questions [...] 2:30 PM EST [place] [address] Susanna Cm APRN [facility] [place] [address] documented as of this encounter Procedures Procedure [...] MD IMG FILM LIBRARY ORD ERABLES DH [place], [place] documented in this encounter Visit Diagnoses Not on filedocumented in this encounter Care Teams Lock Master Relationship Specialty Start Date End Date Tamia Tsai PA [address] [place] [address] PCP - General Family Medicine 02/18/24 documented as of this encounter
--- OUTSIDE RECORDS SUMMARY | 2024-04-02 21:10 | XMS_ITS | Encounter Summary ---
Author Organization [facility] Address [facility] [place] [address] Care Team Providers Care Reconciliation Coordinator Name Role Phone Tamia Tsai Primary Care Provider [phone] Encounter Details Date Type Department Care Team (Late st Contact Info) Description 03/10/2024 Interpretation Only Radiology Library at [facility] [place] [address] Vitor Camara MD [facility] [place] [address] Social History Tobacco Use Types Packs/Day Years Used Date Smoking Tobacco: Never Smokeless Tobacco: Never Alcohol Use Standard Drinks/Week Comments Not Currently 0 (1 standard drink = 0.6 oz pur e alcohol) [facility] Utilities Answer Date Recorded In the past 12 months has e [employer], gas, oil, or water [employer] threatened to shut off services in your [...] any time in the past 12 m [facility], were you homeless or living in a long term (including now)? No 02/24/2024 IPV Inpatient Questions [...] 2:30 PM EST [place] [address] Susanna Cm, TRANSFER CLERK [facility] [place] [address] documented as of this encounter Procedures Procedure [...] is for storage only. Vitor Camara MD G FILM LIBRARY ORD ERABLES DH [facility] [place], [place] documented in this encounter Visit Diagnoses Not on filedocumented in this encounter Care Teams Reconciliation Coordinator Relationship Specialty Start Date End Date Tamia Tsai PA [address] [place] [phone] PCP - General Family Medicine 02/18/24 documented as of this encounter
--- OUTSIDE RECORDS SUMMARY | 2024-04-02 21:10 | XMS_ITS | Clinical Summary ---
Author Organization [facility] [place] [address] Care Team Providers Care Supervisory Forester Name Role Phone Tamia Tsai Primary Care Provider [phone] Allergies Active Allergy Reactions Criticality Noted Date [...] CHF exacerbation 03/17/2024 Hypo-osmolar hyponatremia 03/02/2024 R MANAGER ORDER occlusion and infarcti on associated with cardiac catheterization, s/p tPA 02/25/2024 Overview (02/28/2024): Admitted 02/23/2024 Dx: R MANAGER ORDER occlusion and infarction after cath visiting from [facility] Antithrombotic stroke prevention DAPT (Cardiology input for [...] Fluids Nutrition Daily Healthy Menu Choices/Cardiac diet ([facility]iet) 60/60/75 CHO counting level 2 Discharge barriers [...] 06/15/2020 S/P CABG (coronary artery bypass graft) 11/30/20 20 S/P AVR (aortic valve replacement) 06/13/2020 CAD (coronary artery disease) 06/03/2020 Aortic valve stenosis 05/09/2020 Overview (05/09/2020): Added automatically from request for surgery [id number] Type 2 diabetes mellitus 07/15/2014 ASCVD (arteriosclerotic [...] Care Team Description 03/23/2024 Telephone Neurology at [place] [phone] Twila Cm, BANQUET KITCHEN SUPERVISOR Appointment 03/17/2024 10:14 PM EDT - 03/21/2024 3:41 PM EDT Hospital Encounter Heart and Vascular Unit Level 4 [place] [address] Carlos Toro MD Ahmad, Shawn M, MD Vinod, Poornima, MD Acute on chronic congestive heart failure, unspecified heart failure type Discharge Disposition: Home with [facility] 03/17/2024 Telephone Cardiology at [address] [address] Prabha Ngo, BANQUET KITCHEN SUPERVISOR 03/17/2024 External [place] [address] 03/13/2024 5:40 PM EDT Telehealth [place] [address] Telehealth, Neurology 03/11/2024 5:00 PM EDT Telehealth [place] [address] Telehealth, Neurology 03/11/2024 9:40 AM EDT Telehealth [place] [address] Telehealth, Neurology 03/10/2024 2:40 PM EDT Ancillary Procedure Radiology Library at [facility] [place] [address] Vitor Camara MD 03/10/2024 Interpretation Only Radiology Library [place] [facility] [place] [address] Vitor Camara MD 03/09/2024 6:50 AM EDT Telehealth [place] [address] Telehealth, Neurology 02/24/2024 11:00 AM EDT - 02/24/2024 12:00 PM EDT Surgery [place] [address] Zara Dc MD CARDIAC CATHETERIZATION 02/24/2024 Travel 02/23/2024 8:38 PM EDT - 03/02/2024 2:11 PM EDT Hospital Encounter Neurosciences and ENT Unit Level [address] [place] [address] Kal Puentes MD Battula, MD Jenn Magdaleno Evadne G, MD Rojas-Soto, MD Joseluis Dean Timothy G, MD Kussaga, Bassam Street MD Coronary artery disease, unspecified vessel or lesion type, unspecified whether angina present, unspecified whether ak chin or transplanted heart; Internal carotid artery stenosis, unspecified laterality; NSTEMI (non-ST elevated myocardial infarction) Discharge Disposition: Rehab Center in a Facility 02/23/2024 Telephone Cardiology at [facility] [place] [phone] Bryant Sher PA 02/23/2024 External Results Administration One [facility] [place] [address] 02/18/2024 Transcribe Orders eD Incoming Referrals [phone] Tamia Tsai PA Other spondylosis with myelopathy, lumbar region from Last 3 Months Social History Tobacco Use Types Packs/Day Years Used Date Smoking Tobacco: Never Smokeless Tobacco: Never Tobacco Cessation:Counseling Given: Yes Alcohol Use Standard Drinks/Week Comments Not Currently 0 (1 standard drink = 0.6 oz pur e alcohol) [facility] Utilities Answer Date Recorded In the past [...] any time in the past 12 m [facility], were you homeless or living in a chcf (including now)? No 03/18/2024 [facility] Inpatient Questions Answer Date Recorded Does [...] 2:30 PM EST Office [place] [address] Twila Cm, [facility] [place] [address] Health Maintenance Due Date Last Done Comments [...] (1 of 2) 12/27/1999 Covid-19 Vaccine (4 - 2022-2 4 season) 2024 05/02/2022, 10/13/2020, 09/15/2020 Influenza (Flu) vaccine (1 o f 1 - Influenza standard series) 03/15/2024 DM Hemoglobin A1c 05/26/2024 02/24/2024, , 06/14/2020 DM Creatinine yearly 03/19/2025 03/19/2024, 03/17/2024, 03/02/2024, Additional history exists Lipid Screening Discontinued 02/24/2024 Diabetes Screening (HgbA1C o r Glucose) Discontinued 03/19/2024, 03/17/2024, 03/02/2024, Additional history exists Medical Devices Implanted Type Area Sales Forecast Analyst Device Identifier Shelf Expiration Date Model / Serial / Lot Valve Coronary Aortic 23mm Tissue Trnscath Biopros Inspiris ([id number]) (Autoreq) - [id number] Implanted:Qty : 1 on 06/13/2020 by Chun Wiley MD at [facility] IMPLANTS Left: Heart [employer]OB [employer] - BOB LI 03/02/2024 [id number] 23MM / [id number] / Cable,Cut,Edg ,Blnt,Ss,3tpr ([id number]) - [id number] Implanted:Qty : 1 on 06/13/2020 by Chun Wiley MD at [facility] IMPLANTS Midline: Sternum [employer] - [id number] 10/29/2024 [id number] / / [id number] Procedures Procedure Name Priority Date/Time Associated Diagnosis [...] DOC: TELEMETRY STRIPS 03/17/2024 10:45 PM EDT [facility] RESULT Routine 03/17/2024 1:55 PM EDT [facility] RESULT Routine 03/17/2024 1:54 PM [...] type, unspecified whether angina present, unspecified whether ak chin or transplanted heart SCAN DOC: TELEMETRY STRIPS [...] type, unspecified whether angina present, unspecified whether ak chin or transplanted heart SCAN DOC: TELEMETRY STRIPS [...] DOC: TELEMETRY STRIPS 02/23/2024 8:53 PM EDT [facility] RESULT Routine 02/23/2024 10:57 AM EDT from Last 3 Months Results * (ABNORMAL) POC, GLUCOSE (03/21/2024 2:20 PM EDT) Only the most recent of63 resultswithin the time period is included. [facility] Glucometer, POC 217(H) 65 - 199 mg/dL 03/21/2024 2:21 PM EDT [facility] Comment:Supplemental ranges: <140 mg/dL before meals <180 mg/dL all other times of the day. Blood CAPILLARY BLOOD / Unknown 03/21/2024 2:20 PM EDT 03/21/2024 2:21 PM EDT Avtar Palafox MD POINT OF CARE TEST O RDERABLES [facility] [place] [address] * Scan Doc: Telemetry Strips (03/21/2024 7:31 [...] 65 - 199 mg/dL 03/19/2024 7:49 AM [facility] Comment:Glucose Concentratio n >=200 mg/dL plus symptoms is consistent with Diabetes Mellitus. Blood Urea Nitrogen 15 10 - 20 mg/dL 03/19/2024 7:49 AM [facility] Creatinine 1.11 0.80 - 1.50 mg/dL 03/19/2024 7:49 AM [facility] Sodium 134(L) 135 - 145 mMol/L 03/19/2024 7:49 AM [facility] Potassium 4.3 3.5 - 5.0 mMol/L 03/19/2024 7:49 AM [facility] Chloride 96(L) 98 - 107 mMol/L 03/19/2024 7:49 AM [facility] Carbon Dioxide 26 22 - 31 mMol/L 03/19/2024 7:49 AM [facility] Anion Gap 12 5 - 15 mMol/L 03/19/2024 7:49 AM [facility] Calcium 9.2 8.5 - 10.5 mg/dL 03/19/2024 7:49 AM [facility] Est Glomerular Filtration Rate - Male 70 mL/min/1. 73 m?? 03/19/2024 7:49 AM [facility] Comment: This patient's estimated GFR was [...] EDT Carlos Toro MD CHEMISTRY ORDER DILLON [facility] [place] [address] * Sodium, urine, random (03/18/2024 3:31 PM EDT) Sodium, Urine 95 mMol/L 03/18/2024 4:43 PM EDT [facility] Urine URINE SPECIMEN / Unknown Non Blood Collection / Unknown 03/18/2024 3:31 PM EDT 03/18/2024 3:37 PM EDT Carlos Toro MD URINE ORDERABLE S Performing Organization Address City/[facility]/ZIP Co de Phone Number [facility] [place] [address] * ECHO LMTD W CONTRAST W LMTD SPEC DOPP (03/18/2024 11:21 AM EDT) EF 42 HEARTLAB SYSTEM Anatomical Region Laterality Modality Cardiac Other 03/18/2024 10:2 2 AM EDT Narrative 03/18/2024 1:13 PM EDT [address] [place] [address] ? Echocardiogram Report Name: JOHNSON TOBAR ?Study Date: 03/18/2024 10:22 AMBP: 119/74 mmHg ? Patient Location: [address] : 1950 ? Height: 165 cm ? Account: [id number] Age: 73 yrs ? Weight: 74 kg Gender: Male ?BSA: 1.8 m2 Ordering Physician: BYRON CARLSON Referring Physician: LILIA MICHELLE Performed By: Chris Burnham RDCS Reason For Study: CHF Interpreting Fellow: Jorge A Ghotra. Exam Location: [facility]. Interpretation Summary Technically limited study due to [...] motions abnormalities are new. Procedure Limited - 92562. Doppler - 22670. Color Doppler - 66887. Image enhancement Optison was used for left [...] Note John Andrade MD - 03/18/2024 [address] [place] [id number] Echocardiogram Report Name: JOHNSON TOBAR Study Date: 0:22 AMBP: 119/74 mmHg Patient Location: [address] : 1950 Height: 165 cm Account: [id number] Age: 73 yrs Weight: 74 kg Gender: Male BSA: 1.8 m2 Ordering Physician: BYRON CARLSON Referring Physician: LILIA MICHELLE Performed By: Chris Burnham RDCS Reason For Study: CHF Interpreting Fellow: Jorge A Ghotra. Exam Location: [facility]. Interpretation Summary Technically limited study due to [...] motions abnormalities are new. Procedure Limited - 59123. Doppler - 06910. Color Doppler - 01204. Image enhancementOptison was used for left ventricular [...] of5 resultswithin the time period is included. [facility] Troponin-T, High Sensitivity 250(H) <=22 ng/L 03/18/2024 12:37 PM EDT [facility] Comment: This patient's troponin T concentration [...] troponin value can be found in the [facility] Laboratory Test Catalog Troponin - [email or web address] Reference: Fourth Floral Definition of Myocardial Infarction. Journal of the [place] College of Cardiology 2018;72:4037-3756 Blood VENOUS BLOOD SPECIMEN / Unknown IP Care Team Draw / Unknown 03/18/2024 10:53 AM EDT 03/18/2024 11:52 AM EDT Carlos Toro MD CHEMISTRY ORDER DILLON [facility] [place] [address] * CT Head wo Contrast (Generic) (03/18/2024 1:13 AM EDT) Only the most recent of2 resultswithin the time period is included. [employer] Signature WORKSTATION ID [id number] RAD Anatomical Region Laterality Modality Head Computed [...] who have questions please contact the health health care attorney that requested your imaging first. ? Electronically signed by: Theo Garcia MD, [facility] ([phone]), at 03/18/2024 8:27 AM Narrative 03/18/2024 8:27 AM EDT EXAMINATION: CT [...] patients who have questions please contactthe health health care attorney that requested your imaging first. Electronically signed by: Theo Garcia MD, [facility]([phone]), at 03/18/2024 8:27 AM Saniya Patrick MD IMG CT ORDERABLES * Respiratory Panel PCR (03/18/2024 12:08 AM EDT) Respiratory Panel PCR Negative Negative 03/18/2024 1:29 AM EDT [facility] Adenovirus Not Detected Not Detected 03/18/2024 1:29 AM EDT [facility] Coronavirus HKU1 Not Detected Not Detected 03/18/2024 1:29 AM EDT [facility] Coronavirus NL63 Not Detected Not Detected 03/18/2024 1:29 AM EDT [facility] Coronavirus 229E Not Detected Not Detected 03/18/2024 1:29 AM EDT [facility] Coronavirus OC43 Not Detected Not Detected 03/18/2024 1:29 AM EDT [facility] SARS-CoV-2 Not Detected Not Detected 03/18/2024 1:29 AM EDT [facility] Human Metapneumovirus Not Detected Not Detected 03/18/2024 1:29 AM EDT [facility] Human Rhinovirus/Enterov irus Not Detected Not Detected 03/18/2024 1:29 AM EDT [facility] Influenza A Not Detected Not Detected 03/18/2024 1:29 AM EDT [facility] Influenza B Not Detected Not Detected 03/18/2024 1:29 AM EDT [facility] Parainfluenza 1 Not Detected Not Detected 03/18/2024 1:29 AM EDT [facility] Parainfluenza 2 Not Detected Not Detected 03/18/2024 1:29 AM EDT [facility] Parainfluenza 3 Not Detected Not Detected 03/18/2024 1:29 AM EDT [facility] Parainfluenza 4 Not Detected Not Detected 03/18/2024 1:29 AM EDT [facility] Respiratory Syncytial Virus Not Detected Not Detected 03/18/2024 1:29 AM EDT [facility] Chlamydophila pneumoniae Not Detected Not Detected 03/18/2024 1:29 AM EDT [facility] Mycoplasma pneumoniae Not Detected Not Detected 03/18/2024 1:29 AM EDT [facility] Swab SPECIMEN FROM NASOPHARYNGEAL STRUCTURE / Unknown Non Blood Collection / Unknown 03/18/2024 12:08 AM EDT 03/18/2024 12:21 AM EDT Narrative [facility] - 03/18/2024 1:29 AM EDT Respiratory Panels are performed on the Lockbox using multiplexed PCR nucleic acid detection. Negative results do not preclude respiratory infection and should not be used as the sole basis for diagnosis, treatment, or other management decisions. Saniya Patrick MD MICROBIOLOGY - [facility] AL ORDERABLES [facility] [place] [id number] * XR Chest One View (03/18/2024 12:01 AM EDT) Only the most recent of2 resultswithin the time period is included. WORKSTATION ID [id number] DH RAD Anatomical Region Laterality Modality Chest [...] who have questions please contact the health health care attorney that requested your imaging first. ? Electronically signed by: Theo Lunsford MD, [facility] ??([phone]), at 03/18/2024 8:59 AM Narrative 03/18/2024 8:59 [...] patients who have questions please contactthe health health care attorney that requested your imaging first. Electronically signed by: Theo Lunsford MD, [facility]([phone]), at 03/18/2024 8:59 AM Saniya Patrick MD IMG DX ORDERABLES * [...] (Bezet) 434 ms MUSE SYSTEM Calculated P [place] 71 degrees MUSE SYSTEM Calculated R [place] -14 degrees MUSE SYSTEM Calculated T [place] 36 degrees MUSE SYSTEM INTERPRETATION Normal sinus [...] resultswithin the time period is included. Pathologist [facility] White Blood Cell 7.96 4.00 - 9.50 x10(3)/mc L 03/17/2024 11:47 PM EDT [facility] Red Blood Cell 3.71(L) 4.58 - 5.54 x10(6)/mc L 03/17/2024 11:47 PM EDT [facility] Hemoglobin 10.1(L) 13.7 - 16.5 g/dL 03/17/2024 11:47 PM EDT [facility] Hematocrit 31.2(L) 40.5 - 48.5 % 03/17/2024 11:47 PM EDT [facility] Mean Cell Volume 84.1 82.9 - 93.1 fL 03/17/2024 11:47 PM [facility] Mean Cell Hemoglobin 27.2(L) 27.5 - 32.1 pg 03/17/2024 11:47 PM [facility] Mean Cell Hemoglobin Concentration 32.4 32.0 - 35.7 g/dL 03/17/2024 11:47 PM [facility] Platelet 221 145 - 357 x10(3)/mc L 03/17/2024 11:47 PM [facility] Mean Platelet Volume 10.5 7.6 - 12.9 fL 03/17/2024 11:47 PM [facility] RDW Standard Deviation 51.9(H) 36.0 - 45.0 fL 03/17/2024 11:47 PM [facility] RDW coefficient of variation 17.3(H) 11.4 - 13.8 % 03/17/2024 11:47 PM [facility] NRBC% auto 0.0 % 03/17/2024 11:47 PM [facility] NRBC Absolute 0.00 0.00 - 0.00 x10(3)/mc L 03/17/2024 11:47 PM [facility] Neutrophil % 74.1 % 03/17/2024 11:47 PM [facility] Neutrophil Absolute (ANC) - Automated 5.90 1.70 - 6.10 x10(3)/mc L 03/17/2024 11:47 PM [facility] Lymph % 10.3 % 03/17/2024 11:47 PM [facility] Lymph Absolute 0.82(L) 0.90 - 3.20 x10(3)/mc L 03/17/2024 11:47 PM [facility] Monocyte % 11.4 % 03/17/2024 11:47 PM [facility] Monocyte Absolute 0.91(H) 0.30 - 0.90 x10(3)/mc L 03/17/2024 11:47 PM EDT [facility] Eos % 3.3 % 03/17/2024 11:47 PM EDT [facility] Eos Absolute 0.26 0.00 - 0.40 x10(3)/mc L 03/17/2024 11:47 PM EDT [facility] Basophil % 0.5 % 03/17/2024 11:47 PM EDT [facility] Baso Absolute 0.04 0.00 - 0.10 x10(3)/mc L 03/17/2024 11:47 PM EDT [facility] Immature Gran % 0.4 % 11:47 PM EDT [facility] Immature Gran Absolute 0.03 0.00 - 0.04 x10(3)/mc L 03/17/2024 11:47 PM EDT [facility] Blood VENOUS BLOOD SPECIMEN / Unknown Venipuncture / Unknown 03/17/2024 11:34 PM EDT 03/17/2024 11:38 PM EDT Saniya Patrick MD [place] [address] * (ABNORMAL) pro-Brain Natriuretic Peptide (03/17/2024 11:34 PM EDT) Only the most recent of2 resultswithin the time period is included. NT-proBNP 7,905(H) <=124 pg/mL 03/18/2024 12:19 AM EDT [facility] Blood VENOUS BLOOD SPECIMEN / Unknown Venipuncture / Unknown 03/17/2024 11:34 PM EDT 03/17/2024 11:38 PM EDT Saniya Patrick MD CHEMISTRY ORDERABLES [facility] [place] [address] * (ABNORMAL) Magnesium (03/17/2024 11:34 PM EDT) Only the most recent of7 resultswithin the time period is included. Magnesium 0.65(L) 0.69 - 1.07 mMol/L 03/18/2024 12:19 AM EDT [facility] Blood VENOUS BLOOD SPECIMEN / Unknown Venipuncture / Unknown 03/17/2024 11:34 PM EDT 03/17/2024 11:38 PM EDT Saniya Patrick MD CHEMISTRY ORDERABLES [facility] [place] [address] * Hepatic Function Panel (03/17/2024 11:34 PM EDT) Pathologist [facility] Albumin 3.6 3.2 - 5.2 g/dL 03/18/2024 12:19 AM EDT [facility] Aspartate Aminotransferase 26 <=39 unit/L 03/18/2024 12:19 AM [facility] Alanine Aminotransferase 16 0 - 55 unit/L 03/18/2024 12:19 AM [facility] Alkaline Phosphatase 105 40 - 130 unit/L 03/18/2024 12:19 AM [facility] Bilirubin, Total 0.7 <=1.3 mg/dL 03/18/2024 12:19 AM EDT [facility] Bilirubin, Direct 0.3 0.0 - 0.3 mg/dL 03/18/2024 12:19 AM [facility] Protein, Total 6.7 6.1 - 8.0 g/dL 03/18/2024 12:19 AM EDT [facility] Blood VENOUS BLOOD SPECIMEN / Unknown Venipuncture / Unknown 03/17/2024 11:34 PM EDT 03/17/2024 11:38 PM EDT Saniya Darnell MD CHEMISTRY ORDERABLES Performing Organization Address [facility] Co de Phone Number [facility] [place] [address] * External Cardiology Result (03/17/2024 1:55 PM EDT) Anatomical Region Laterality Modality Other Historical Provider EXTERNAL CARDIOLO GY RESULT * External Cardiology Result (03/17/2024 1:54 PM EDT) Anatomical Region Laterality Modality Other Historical Provider EXTERNAL CARDIOLO GY RESULT * Film Library- Storage Only MR Head (03/10/2024 2:40 PM EDT) 03/11/2024 8:20 AM EDT Narrative [facility] 03/11/2024 8:20 AM EDT This exam is auto-finalizing. It's purpose is for storage only. Vitor Camara MD IMG FILM LIBRARY ORD ERABLES Performing Organization Address [facility] Co de Phone Number [place], [place] * Urinalysis Microscopic Exam (02/28/2024 8:58 PM EDT) Bacteria, Urine None None /HPF 9:21 PM EDT [facility] RBC, Urine 3 0 - 3 /HPF 02/28/2024 9:21 PM EDT [facility] WBC, Urine 1 0 - 3 /HPF 02/28/2024 9:21 PM EDT [facility] Squamous Epithelial Cells, Urine 0 0 - 5 /HPF 02/28/2024 9:21 PM EDT [facility] Hyaline Casts, Urine 0 0 - 2 /LPF 02/28/2024 9:21 PM EDT [facility] Urine URINE SPECIMEN / Unknown Non Blood Collection / Unknown 02/28/2024 8:58 PM EDT 02/28/2024 9:08 PM EDT Kd Huggins MD URINE ORDERABLES Performing Organization Address City/[facility]/ZIP Co de Phone Number [facility] [place] [address] * Electrolytes, urine, random (02/28/2024 8:58 PM EDT) Only the most recent of2 resultswithin the time period is included. Sodium, Urine <20 mMol/L 02/28/2024 10:09 PM EDT [facility] Potassium, Urine 17 mMol/L 02/28/2024 10:09 PM EDT [facility] Chloride, Urine <20 mMol/L 02/28/2024 10:09 PM EDT [facility] Urine URINE SPECIMEN / Unknown Non Blood Collection / Unknown 02/28/2024 8:58 PM EDT 02/28/2024 9:08 PM EDT Kd Huggins MD URINE ORDERABLES Performing Organization Address [facility]/ZIP Co de Phone Number [facility] [place] [address] * Osmolality, urine, random (02/28/2024 8:58 PM EDT) Only the most recent of2 resultswithin the time period is included. Osmolality, Urine 314 50 - 1,200 mOsm/kg 02/28/2024 10:27 PM EDT [facility] Urine URINE SPECIMEN / Unknown Non Blood Collection / Unknown 02/28/2024 8:58 PM EDT 02/28/2024 9:08 PM EDT Kd Huggins MD URINE ORDERABLES Performing Organization Address City/[facility]/ZIP Co de Phone Number [facility] [place] [address] * (ABNORMAL) Urinalysis Dipstick (02/28/2024 8:58 PM EDT) Glucose, Urine Dipstick Negative Negative 02/28/2024 9:21 PM EDT [facility] Protein, Urine Dipstick 100 mg/dL(A) Negative 02/28/2024 9:21 PM EDT [facility] Bilirubin, Urine Dipstick Negative Negative 02/28/2024 9:21 PM [facility] Comment:Clinical correlation required for positive Urine Bilirubin results as false positive may occur with some drugs and drug related products. If a false positive is suspected a serum total bilirubin should be considered if clinically indicated. Urobilinogen, Urine Dipstick Normal Normal, 0.2 mg/dL, 1.0 mg/dL 02/28/2024 9:21 PM T [facility] pH, Urine (dipstick) 6.0 5.0 - 8.0 02/28/2024 9:21 PM [facility] Blood, Urine Dipstick Trace(A) Negative 02/28/2024 9:21 PM T [facility] Ketone, Urine Dipstick Negative Negative 02/28/2024 9:21 PM EDT [facility] Nitrite, Urine Dipstick Negative Negative 02/28/2024 9:21 PM [facility] Leukocytes, Urine Dipstick Negative Negative 02/28/2024 9:21 PM [facility] Specific [place] Urine Automated 1.013 1.005 - 1.030 02/28/2024 9:21 PM [facility] Appearance, Urine Dipstick Clear Clear 02/28/2024 9:21 PM EDT [facility] Color, Urine Dipstick Yellow Yellow, Dark Yellow 02/28/2024 9:21 PM [facility] Urine URINE SPECIMEN / Unknown Non Blood Collection / Unknown 02/28/2024 8:58 PM EDT 02/28/2024 9:08 PM EDT Kd Huggins MD URINE ORDERABLES [facility] [place] [address] * (ABNORMAL) Osmolality (02/28/2024 5:33 AM EDT) Only the most recent of4 resultswithin the time period is included. Osmolality 270(L) 275 - 295 mOsm/kg 02/28/2024 9:50 AM EDT [facility] Blood VENOUS BLOOD SPECIMEN / Unknown IP Care Team Draw / Unknown 02/28/2024 5:33 AM EDT 02/28/2024 5:54 AM EDT Kd Huggins MD CHEMISTRY ORDERABL ES [facility] [address] [place] [address] * EEG Continuous Monitoring Inpatient (02/25/2024 4:00 PM EDT) Narrative Josias Hyman MD - 02/25/2024 4:00 PM EDT Josias Hyman MD ? 02/25/2024 ??4:02 PM [facility] Department of Neurology Inpatient Continuous Video EEG Report Name of the Patient: ??Johnson Tobar Date of : ?1950 Patient Location: [facility] Date of Service: 02/24/2024 Referring [...] ??Earlier today, he was taken to the chemical processing laborer, though no intervention required. ??In recovery, pt [...] EKG. Video was recorded during the session. ASSEMBLER [employer] TURBINE'S REPORT: Performed by: AT At the onset [...] MD PGY-6 Clinical Instructor - Epilepsy Fellow [facility] Department of Neurology 02/25/2024 Twila Cm BANQUET KITCHEN SUPERVISOR NEUROLOGY ORDERABLE S * MRI Brain wo Contrast (02/25/2024 3:06 PM EDT) WORKSTATION ID [id number] RAD Anatomical Region Laterality Modality Head Magnetic [...] who have questions please contact the health health care attorney that requested your imaging first. ? Narrative [...] patients who have questions please contactthe health health care attorney that requested your imaging first. Gonzalez Barajas MD IMG MRI ORDERABLES * Carotid Duplex, Bilateral (02/25/2024 2:32 PM EDT) VB Text Report Department: Vascular Surgery Lab Patient: [id number] (JOHNSON TOBAR) CPT: 31095 Referring Physician: TWILA CM ?? Phone: Indications: [...] VASCUBASE 02/25/2024 2:32 PM EDT Twila Cm BANQUET KITCHEN SUPERVISOR VASCULAR ORDERABLES VASCUBASE * CT Head WO Contrast Dual Energy (Post MT/TPA) (02/24/2024 10:04 PM EDT) WORKSTATION ID [id number] [facility] Anatomical Region Laterality Modality Head Computed Tomogra [...] who have questions please contact the health health care attorney that requested your imaging first. ? Electronically signed by: Artur Palafox MD, [facility] ([phone]), at 02/25/2024 1:25 AM Narrative 02/25/2024 1:25 [...] patients who have questions please contactthe health health care attorney that requested your imaging first. Electronically signed by: Artur Palafox MD, [facility]([phone]), at 02/25/2024 1:25 AM Gonzalez Barajas MD IMG CT ORDERABLES * TSH (02/24/2024 1:31 PM EDT) Thyroid Stimulating Hormone 2.07 0.27 - 4.20 mcIU/mL 02/24/2024 7:48 PM EDT [facility] Blood VENOUS BLOOD SPECIMEN / Unknown 02/24/2024 1:31 PM EDT 02/24/2024 1:48 PM EDT Gonzalez Barajas MD CHEMISTRY ORDERABL ES [facility] [place] [address] * Lipid Panel (Reflex Direct LDL) (02/24/2024 1:31 PM EDT) Cholesterol, Total 91 mg/dL 02/24/2024 7:48 PM EDT [facility] Comment: Desirable: < 200 mg/dL Borderline High: 200 - 239 mg/dL High: > or = 240 mg/dL Triglyceride 122 mg/dL 02/24/2024 7:48 PM EDT [facility] Comment: Normal: <150 mg/dL Borderline High: 150-199 mg/dL High: 200-499 mg/dL Very High: > or =500 mg/dL HDL Cholesterol 32 mg/dL 7:48 PM EDT [facility] Comment:Males: High Risk: <4 0 mg/dL LDL Cholesterol 37 mg/dL 7:48 PM EDT [facility] Comment: Desirable: <100 mg/dL Above Desirable: 100-129 mg/dL Borderline High: 130-159 mg/dL High: 160-189 mg/dL Very High: > or =190 mg/dL Note: LDL calculation updated to the NIH LDL formula as of 02/16/2024 Non-HDL Cholesterol 59 mg/dL 02/24/2024 7:48 PM EDT [facility] Comment: Desirable: <130 mg/dL Above Desirable: 130-159 mg/dL Borderline High: 160-189 mg/dL High: 190-219 mg/dL Very High: > or = 220 mg/dL Blood VENOUS BLOOD SPECIMEN / Unknown 02/24/2024 1:31 PM EDT 02/24/2024 1:48 PM EDT [facility] - 02/24/2024 7:48 PM EDT It [...] MD CHEMISTRY ORDERABL ES Performing Organization Address [facility] Co de Phone Number [facility] [place] [address] * APTT (02/24/2024 1:25 PM EDT) Partial Thromboplastin Time 29 25 - 37 sec 02/24/2024 2:01 PM EDT [facility] Comment: The PTT is NOT appropriate for heparin monitoring. Use the Anti-Xa level for heparin monitoring (HEP UFH) or LMWH monitoring (HEP LMW). A PTT less than 37 seconds generally indicates adequate hemostasis. Blood VENOUS BLOOD SPECIMEN / Unknown 02/24/2024 1:25 PM EDT 02/24/2024 1:37 PM EDT Fariba Ramirez MD HEMATOLOGY ORDERABLE S Performing Organization Address [facility] de Phone Number [facility] [place] [address] * Prothrombin Time (02/24/2024 1:25 PM EDT) Only the most recent of2 resultswithin the time period is included. Prothrombin Time 12.3 9.4 - 12.5 sec 02/24/2024 2:01 PM EDT [facility] International Normalization Ratio 1.1 <=4.9 02/24/2024 2:01 PM EDT [facility] Comment: An INR < 2.0 indicates [...] EDT 02/24/2024 1:37 PM EDT Twila Cm BANQUET KITCHEN SUPERVISOR HEMATOLOGY ORDERABL ES [facility] [place] [address] * CTA Head/Neck Multiphase (Thrombectomy Protocol) (02/24/2024 1:10 PM EDT) [employer] WORKSTATION ID [id number] RAD Anatomical Region Laterality Modality Head Computed Tomogra phy Impressions 02/24/2024 2:49 PM EDT 1. 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 2. ??Severe right [...] who have questions please contact the health health care attorney that requested your imaging first. ? Electronically signed by: Kingston Dukes MD, [facility] ([phone]), at 02/24/2024 2:49 PM Narrative 02/24/2024 2:49 PM EDT EXAMINATION: CT HEAD WO CONTRAST (GENERIC), CTA HEAD/NECK MULTIPHASE (THROMBECTOMY PROTOCOL) CLINICAL HISTORY: stroke alert TECHNIQUE: CT of head without intravenous contrast. Multiphase CTA of the carotids and [place] is performed after the administration of 65cc of Omnipaque 350 intravenous contrast. MIP and 3-D volumetric reconstructions were created. COMPARISON: None FINDINGS: CT Head: No acute intracranial hemorrhage or mass effect. Cheung-white matter differentiation is maintained. ??Normal caliber ventricles. Patent basal cisterns.. Imaged paranasal sinuses and mastoid air cells are clear. CTA [place]: Intradural segments of the internal carotid arteries are patent. ??Normal course and caliber of the middle and anterior cerebral arteries. Dominant left vertebral artery is normal caliber. Calcified atheroma moderate-severely narrow the intradural right vertebral artery. Normal basilar artery. Occluded mid-distal P2 segment of the right MANAGER ORDER without distal reconstitution. No filling on delayed [...] intravenous contrast. Multiphase CTA of the carotidsand [place] is performed after the administration of 65cc ofOmnipaque 350 intravenous contrast. MIP and 3-D volumetric reconstructions werecreated. COMPARISON: None FINDINGS: CT Head: No acute intracranial hemorrhage or mass effect. Cheung-white matter differentiation is maintained. Normal caliber ventricles. Patent basal cisterns.. Imaged paranasal sinuses and mastoid air cells are clear. CTA [place]: Intradural segments of the internal carotid arteries are patent. Normalcourse and caliber of the middle and anterior cerebral arteries. Dominant left vertebral artery is normal caliber. Calcified atheroma moderate-severely narrow the intradural right vertebral artery. Normalbasilar artery. Occluded mid-distal P2 segment of the right MANAGER ORDER without distalreconstitution. No filling on delayed images. [...] be exaggerated by respiratorymotion. IMPRESSION 1. 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 2. Severe right [...] patients who have questions please contactthe health health care attorney that requested your imaging first. Electronically signed by: Kingston Dukes MD, [facility]([phone]), at 02/24/2024 2:49 PM Twila Cm APRN IMG CT ORDERABLES * CARDIAC CATHETERIZATION (02/24/2024 12:32 PM EDT) Anatomical Region Laterality Modality Other Narrative 02/25/2024 4:57 PM EDT ?[facility] ? Cardiac Catheterization/Intervention Report ? Patient Name: Ekaterina, Johnson R. ? Procedure Date: 02/24/2024 ? A #: [id number] ? Primary Physician: Zara Dc ? Case #: [id number] ? File Name: [id number] ? Catheterization Order Number: [id number] ? [facility] ? Final Report [place], [place] ? Patient Name: ? Johnson R. Ekaterina ? ID#: ?[id number] ? : ?1950 ? Procedure Date: ? February 24, 2024 ?Case #: ? [id number] ? Room: ? 2 ? Case Physician: ? Emad Dao, M.D. ? Start: ?11:37 ?Fellow: ? Mauricio [...] was designated as ASA Class III. The [facility] clinical ?frailty scale is 4: Vulnerable. [...] procedure was Urgent. The indication for ?the chemical processing laborer visit is ACS greater than 24 hrs. [...] Procedure Note Zara Dc MD - 03/06/2024 [facility] Cardiac Catheterization/Intervention Report Patient Name: Ekaterina Johnson LópezTyra Procedure Date: 02/24/2024 A #: [id number] Primary Physician: Zara Dc Case #: [id number] File Name: [id number] Catheterization Order Number: [id number] [facility] FinalReport [place], [place] Patient Name: Johnson Tobar ID#:[id number] :1950 Procedure Date: February 24, 2024 Case [...] diagnostic procedure was Urgent. The indicationfor the chemical processing laborer visit is ACS greater than 24 hrs. [...] EDT Narrative 02/24/2024 9:58 AM EDT [address] [place] [address] ? Echocardiogram Report Name: EKATERINAJOHNSON R ?Study Date: 02/24/2024 06:53 AMBP: 131/77 mmHg ? [facility] 1950 ? Height: 170 cm ? Account: [id number] Age: 73 yrs ? Weight: 75 kg Gender: Male ?BSA: 1.9 m2 Ordering Physician: BASSAM STEVENS Referring Physician: ARIEL LYNN Performed By: Kim Donahue RDCS Reason For Study: CAD Exam Location: [facility]. Interpretation Summary Technically difficult study despite the [...] with a DEBORAH if clinically indicated. Procedure Complete-64456. Image enhancement Optison was used for left [...] Note Darron Manzanares MD - 02/24/2024 [address] [place] [address] Echocardiogram Report Name: JOHNSON TOBAR Study Date: 406:53 AMBP: 131/77 mmHg Patient Location:[facility]^463^A : 1950 Height: 170 cm Account: [id number] Age: 73 yrs Weight: 75 kg Gender: Male BSA: 1.9 m2 Ordering Physician: BASSAM STEVENS Referring Physician: ARIEL LYNN Performed By: Kim Donahue RDCS Reason For Study: CAD Exam Location: [facility]. Interpretation Summary Technically difficult study despite the [...] with a DEBORAH if clinically indicated. Procedure Complete-29996. Image enhancement Optison was used for left [...] Heparin 0.23 IU/mL 02/24/2024 3:25 AM EDT [facility] Comment: Heparin (anti-Xa) levels should be [...] MD HEMATOLOGY ORDERABLE S Performing Organization Address [facility]/ZIP Co de Phone Number [facility] [place] [address] * (ABNORMAL) Hemoglobin A1c (02/24/2024 3:02 AM EDT) Hemoglobin A1c 8.3(H) 4.3 - 5.6 % 02/24/2024 10:42 AM EDT [facility] Comment: Per ADA guidelines, without clear [...] red blood cell turnover may not be sales representative printing paper of glycemic control. Reference Interval: 4.3 - 5.6% 5.7 - 6.4%: Consistent with prediabetes >=6.5%: Consistent with diagnosis of diabetes mellitus Estimated Average Glucose 02/24/2024 10:42 AM EDT [facility] Comment:Not Calculated. Blood VENOUS BLOOD SPECIMEN / Unknown IP Care Team Draw / Unknown 02/24/2024 3:02 AM EDT 02/24/2024 3:07 AM EDT Narrative [facility] - 02/24/2024 10:42 AM EDT Estimated average glucose (eAG) is calculated from the equation described in: Johnathan BOO, Cira J, Mak R, et al. ??Translating the A1C assay into estimated average glucose values. ??Diabetes Care 2008:31(8):0513-5181. Additional resources are available on the ADA website (diabetes.org). 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
--- OUTSIDE RECORDS SUMMARY | 2024-04-02 21:10 | XMS_ITS | Encounter Summary ---
Author Organization [facility] [place] [address] Care Team Providers Care Oxygen Equipment Technician Name Role Phone Tamia Tsai Primary Care Provider [phone] Encounter Details Date Type Department Care Team (Late st Contact Info) Description 03/17/2024 External [place] [phone] Social History Tobacco Use Types Packs/Day Years Used Date Smoking Tobacco: Never Smokeless Tobacco: Never Alcohol Use Standard Drinks/Week Comments Not Currently 0 (1 standard drink = 0.6 oz pur e alcohol) [facility] Utilities Answer Date Recorded In the past 12 months has [employer], gas, oil, or water [employer] threatened to shut off services in your [...] any time in the past 12 m [facility], were you homeless or living in a half-way (including now)? No 03/18/2024 IPV Inpatient Questions [...] 2:30 PM EST [place] [address] Susanna Cm APRN [facility] [place] [address] documented as of this encounter Procedures Procedure Name Priority Date/Time Associated Diagnosis Comments [facility] EXTERNAL CARDIOLOGY RESULT Routine 03/17/2024 1:55 PM EDT [facility] EXTERNAL CARDIOLOGY RESULT Routine 03/17/2024 1:54 PM [...] Indicated Resolved Time Rule Out Respiratory 03/17/2024 03/18/20242 024 1:29 AM EDT Rule Out COVID-19 03/17/2024 03/18/2024 03/18/2024 1:29 AM EDT documented as of this encounter Care Teams Oxygen Equipment Technician Relationship Specialty Start Date End Date Tamia Tsai PA [address] [place] [address] PCP - General Family Medicine 02/18/24 documented as of this encounter
--- OUTSIDE RECORDS SUMMARY | 2024-04-02 21:10 | XMS_ITS | Encounter Summary ---
Author Organization [facility] [place] [address] Care Team Providers Care Office Director Name Role Phone Tamia Tsai Primary Care Provider [phone] Encounter Details Date Type Department Care Team (Late st Contact Info) Description 03/13/2024 5:40 PM EDT Telehealth [place] [phone] Telehealth, Neurology None Social History Tobacco Use Types Packs/Day Years Used Date Smoking Tobacco: Never Smokeless Tobacco: Never Alcohol Use Standard Drinks/Week Comments Not Currently 0 (1 standard drink = 0.6 oz pur e alcohol) [facility] Utilities Answer Date Recorded In the past 12 months has e [employer], gas, oil, or water [employer] threatened to shut off services in your [...] any time in the past 12 m [facility], were you homeless or living in a alf (including now)? No 02/24/2024 IPV Inpatient Questions [...] 2:30 PM EST Office [place] [address] Susanna Cm, [facility] [place] [address] documented as of this encounter Visit Diagnoses Not on filedocumented in this encounter Care Teams Office Director Relationship Specialty Start Date End Date Tamia Tsai PA [address] [place] [address] PCP - General Family Medicine 02/18/24 documented as of this encounter
--- OUTSIDE RECORDS SUMMARY | 2024-04-02 21:10 | XMS_ITS | Encounter Summary ---
Author Organization [facility] [place] [address] Care Team Providers Care Apparel Machinery Instructor Name Role Phone Tamia Tsai Primary Care Provider [phone] Encounter Details Date Type Department Care Team (Late st Contact Info) Description 03/09/2024 6:50 AM EDT Telehealth [place] [phone] Telehealth, Neurology None Social History Tobacco Use Types Packs/Day Years Used Date Smoking Tobacco: Never Smokeless Tobacco: Never Alcohol Use Standard Drinks/Week Comments Not Currently 0 (1 standard drink = 0.6 oz pur e alcohol) [facility] Utilities Answer Date Recorded In the past 12 months has e [employer], gas, oil, or water [employer] threatened to shut off services in your [...] any time in the past 12 m [facility], were you homeless or living in a skilled nursing (including now)? No 02/24/2024 IPV Inpatient Questions [...] 2:30 PM EST [place] [address] Susanna Cm, [facility] [place] [address] documented as of this encounter Visit Diagnoses Not on filedocumented in this encounter Care Teams Apparel Machinery Instructor Relationship Specialty Start Date End Date Tamai Tsai PA [address] [place] [address] PCP - General Family Medicine 02/18/24 documented as of this encounter
--- OUTSIDE RECORDS SUMMARY | 2024-04-02 21:10 | XMS_ITS | Encounter Summary ---
Author Organization [facility] [place] [address] Care Team Providers Care Supervisor Plasma Name Role Phone Tamia Tsai Primary Care Provider [phone] Reason for Visit * Reason Onset Date Comments Appointment 03/23/2024 Encounter Details Date Type Department Care Team (Late st Contact Info) Description 03/23/2024 [place] [phone] Susanna Cm, GLOBAL MOBILITY SPECIALIST [facility] [place] [address] Appointment Social History Tobacco Use Types Packs/Day Years Used Date Smoking Tobacco: Never Smokeless Tobacco: Never Alcohol Use Standard Drinks/Week Comments Not Currently 0 (1 standard drink = 0.6 oz pur e alcohol) [facility] Utilities Answer Date Recorded In the past 12 months has [employer] electric, gas, oil, or water company threatened [...] any time in the past 12 m [facility], were you homeless or living in a senior care (including now)? No 03/18/2024 DH IPV Inpatient [...] Notes: IMPACT Visit Type: IMPACT Provider: Toi Huggins Additional Info Needed: The GLOBAL MOBILITY SPECIALIST works closely with Dr Huggins and typically see's the [facility] after discharge * Telephone Encounter - Richelle Fields - 03/23/2024 2:55 PM EDT Copied from CRM #[id number]. Topic: Specialty Dept CRMs - Appointment Needed [...] 2:30 PM EST [place] [address] Susanna Cm, [facility] [place] [address] documented as of this encounter Visit Diagnoses Not on filedocumented in this encounter Care Teams Supervisor Plasma Relationship Specialty Start Date End Date Tamia Tsai PA [address] [place] [address] PCP - General Family Medicine 02/18/24 documented as of this encounter
--- OUTSIDE RECORDS SUMMARY | 2024-04-02 21:10 | XMS_ITS | Encounter Summary ---
[place] [address] Care Team Providers Care Community Health Agent Name Role Phone Tamia Tsai Primary Care Provider [phone] Reason for Referral * Home Health Care (Routine) - Authorized Specialty Diagnoses / Procedures Referred By Contac t Referred To Contact Diagnoses Acute on chronic congestive heart failure, unspecified heart failure type Avtar Palafox MD [facility] [place] [place] [address] Referral ID Status Reason Start Date Expiration Date Visits Requested Visits Authorized [id number] Authorized Consult, Test & Treat 03/21/2024 09/17/2024 999 999 Reason for Visit * Auth/Cert (Routine) Specialty Diagnoses / Procedures Referred By Contac t Referred To Contact Diagnoses CHF exacerbation elevated troponin Procedures EMERGENCY IPI Saniya Patrick MD [facility] [place] [address] [place] [address] [facility] Referral ID Status Reason Start Date Expiration Date Visits Re quested Visits Authorized [id number] 1 1 Encounter Details Date Type Department Care Team (Late st Contact Info) Description 03/17/2024 10:14 PM EDT - 03/21/2024 3:41 PM EDT Hospital Encounter Heart and Vascular Unit Level 4 Wing B at [facility] [place] [address] Carlos Oakley MD [facility] [place] [address] Avtar Palafox MD [facility] [place] [place] [place] [address] Saniya Patrick MD [facility] [place] [address] Acute on chronic congestive heart failure, unspecified heart failure type Discharge Disposition: Home with VNA Social History Tobacco Use Types Packs/Day Years Used Date Smoking Tobacco: Never Smokeless Tobacco: Never Alcohol Use Standard Drinks/Week Comments Not Currently 0 (1 standard drink = 0.6 oz pur e alcohol) [facility] Utilities Answer Date Recorded In the past 12 months has th e Pulsant, gas, oil, or water [employer] threatened to shut off services in your [...] any time in the past [address] [facility], were you homeless or living in a half-way (including now)? No 03/18/2024 DH IPV Inpatient [...] Johnson Tobar Patient Age: 73 y.o. Language: Eritrean Race: White Ethnicity: Not nor Admit date: [...] please contact your inpatient physician through the [facility] Electronic Warfare Operator . Issues afterhours and on weekends will [...] Active Non-Hospital Problems Diagnosis Hypo-osmolar hyponatremia R CLEANING TEAM MEMBER occlusion and infarction associated with cardiac catheterization, [...] AVR (05/2020), DM2, HTN, HLD transferred from [facility] presenting with shortness of breath, hypoxemia (SpO2 87%) and cough History of Presentation: (per 03/17/2024 Admission H&P): 73 yo male with pmhx of AsCVD s/p CABG x 3 (MCKEON --> LAD, SVG --> OM1 --> D1) and RCA PCI (06/2023), severe s/p AVR (05/2020), DM2, HTN, HLD is a transfer from [facility] for shortness of breath evaluation and management. History obtained from patient and patient's at bedside. Apparently after patient was discharged from [facility] he was at rehab for about 4 [...] sick contacts. Patient is a transfer from [facility], 03/17/2024. Reviewed records, noted that they presented [...] by hemorrhagic CVA patient was accepted to [facility] for further evaluation and management. 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 No results for input(s): PHART, QSS4GDT, PO2ART, XAN7GNK in the last 168 hours. Pending Studies [...] 1 gram Tablet Follow-up: No future appointments. [facility] - Cardiology: April 09 at 10:45AM PCP Tamia KISER at March 26 at 2:10 PM Your Inpatient Medical Team at [facility] Name(s) of your inpatient provider(s): Attending: Avtar Palafox MD Fellow: Byron Carlson MD Resident: Perry Ramirez MD Solder Deposit Operator: Rachel Louie MD Your Primary Care Provider: RASHEL Do [phone] For questions regarding this document or issues relating to this hospitalization on the Medical Service, please contact your inpatient physician through the [facility] Electronic Warfare Operator . Issues afterhours and on weekends will be handled by the Hospitalist staff on-call. General Instructions None Future Appointments and Orders Future Orders Complete By Expires Referral to Home Health [REF34 Custom] As directed Process Instructions: If no progress note charted, please enter Clinical details in comments. Scheduling Instructions: Comments: Please evaluate Johnson Tobar for admission to Home Health. [address] [facility] [address] (home) Date of : 1950 Inpatient DOCUMENTATION FOR VNA SERVICES (INCLUDING THOSE PATIENTS WITH MEDICARE COVERAGE REQUIRING HOME VNA SERVICES AND/OR HOSPICE SERVICES) PATIENT'S LOCATION: Johnson Tobar [address] [facility] [id number] (home) Cell: Telephone Information: Shrimper's Name: self In discussion with the attending physician, it is certified that this patient is under their care and that they, or a Nurse Practitioner, Clinical Nurse specialist or Physician General Duty Nurse who is working directly with them, [...] for managing ADLs. HOME HEALTH CARE AGENCY: [facility] [address] [place] [id number] START OF CARE: Home Health services requested [...] obtained from this patient's PCP: RASHEL Do [address] / [facility] [address] . All VNA agencies which cover the area of patient's residence have been reviewed, either verbally or in writing, and patient/family have chosen the home health care agency noted. Questions: Disciplines Requested: Nursing Occupational Therapy Physical Therapy Primary Team Inpatient Physicians at [facility] was: Attending Physician(s): CARLOS OAKLEY SHAWN M Inpatient Provider Contact Information: If you have questions about this document please contact the [facility] chief transfer and pumphouse operator at and ask for one of [...] 1 gram Tablet Follow-up: No future appointments. [facility] - Cardiology: April 09 at 10:45AM PCP Tamia KISER at March 26 at 2:10 PM Your Inpatient Medical Team at [facility] Name(s) of your inpatient provider(s): Attending: Avtar Palafox MD Fellow: Byron Carlson MD Resident: Perry Ramirez MD Solder Deposit Operator: Rachel Louie MD Your Primary Care Provider: RASHEL Do [phone] For questions regarding this document or issues relating to this hospitalization on the Medical Service, please contact your inpatient physician through the [facility] Electronic Warfare Operator . Issues afterhours and on weekends will [...] 1950 PCP: RASHEL Do PCP phone number: [phone] Date of Admission: 03/17/2024 ( Hospital Day 3 days ) Attending: Carlos Oakley MD ID: Johnson Tobar is a 73 y.o. male ASCVD s/p CABG x 3 and RCA PCI (06/2023), severe s/p AVR(05/2020), DM2, HTN, HLD transferred from [facility] presenting with shortness of breath, hypoxemia (SpO2 [...] Intake/Output Summary (Last 24 hours) at 03/20/2024 0752 Last data filed at 03/20/2024 0351 Gross [...] Phlebitis 0-->no symptoms 03/18/24513 Infiltration 0-->no symptoms 03/18/2414 Labs Recent Labs 03/17/24 2334 WBC 7.96 [...] Component Value Units Date/Time Respiratory Panel PCR [[id number]] (Normal) Collected: 03/18/24 0008 Lab Status: Final [...] Narrative: Respiratory Panels are performed on the CM Sistemi using multiplexed PCR nucleic acid detection. 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 male ASCVD s/p CABG x 3 and RCA PCI (06/2023), severe s/p AVR(05/2020), DM2, HTN, HLD transferred from [facility] presenting with shortness of breath, hypoxemia (SpO2 [...] Phlebitis 0-->no symptoms 03/18/24513 Infiltration 0-->no symptoms 03/18/2414 Labs Recent Labs 03/17/24 2334 WBC 7.96 [...] Component Value Units Date/Time Respiratory Panel PCR [[id number]] (Normal) Collected: 03/18/24 0008 Lab Status: Final result Specimen: Swab from Nasopharynx Updated: 03/18/24128 Respiratory Panel PCR Negative Adenovirus Not Detected [...] Narrative: Respiratory Panels are performed on the CM Sistemi using multiplexed PCR nucleic acid detection. 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 Carlos Oakley MD , [facility], [facility] 03/19/24 3:51 PM Pager #[phone] * Bushra Mayen RN - 03/19/2024 7:46 AM EDT I have met with the patient to: discuss discharge planning needs. provide the [facility], Office of Care Management letter from the Airline Reservationist pertaining to rehab referrals. provide a letter describing our affiliations within the [facility] and educate about their right to choose where referrals are sent. provide a list of Home Health Agencies / Durable Medical Equipment vendors which serve their preferred geographic area. provided patient with CMS Star Quality Rating handout. They have requested referrals to: [facility] [address] [place] [address] Resumption: RN/PT/OT Note routed to a Bladder Cleaner who will communicate referrals to facilities and provide any required information. * Rachel Michel MD - 03/18/2024 6:50 AM EDT Images from the original note were not included. Cardiology Progress Note Patient info: Name: Johnson Tobar : 1950 PCP: RASHEL Do PCP phone number: [phone] Date of Admission: 03/17/2024 ( Hospital Day 1 day ) Attending: Carlos Oakley MD ID: Johnson Tobar is a 73 y.o. male ASCVD s/p CABG x 3 and RCA PCI (06/2023), severe s/p AVR(05/2020), DM2, HTN, HLD transferred from [facility] presenting with shortness of breath, hypoxemia (SpO2 [...] Component Value Units Date/Time Respiratory Panel PCR [[id number]] (Normal) Collected: 03/18/24 0008 Lab Status: Final result Specimen: Swab from Nasopharynx Updated: 03/18/24 012 Respiratory Panel PCR Negative Adenovirus Not Detected [...] Narrative: Respiratory Panels are performed on the CM Sistemi using multiplexed PCR nucleic acid detection. 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 Carlos Oakley MD , [facility], [facility] 03/18/24 4:13 PM Pager #[phone] documented in this encounter H&P Notes * [...] DM2, HTN, HLD is a transfer from [facility] for shortness of breath evaluation and management. History obtained from patient and patient's at bedside. Apparently after patient was discharged from [facility] he was at rehab for about 4 [...] sick contacts. Patient is a transfer from [facility], 03/17/2024. Reviewed records, noted that they presented [...] by hemorrhagic CVA patient was accepted to [facility] for further evaluation and management. [...] platelet count 244. Reviewed records/discharge records from [facility], patient was apparently admitted and discharged on [...] ANGIOPLASTY WITH STENT PLACEMENT 1997 PRG CATH [facility] LEFT HEART CATH & ARTS W/INJ & ANGIO IMG S&I N/A 05/17/2023 CORONARY ANGIOGRAPHY; W [facility],POSSIBLE PCI (WRVU 5.6) performed by Avani Danielle MD at [facility] CATHLABS PRG CATH PLTN LEFT HEART CATH & ARTS W/INJ & ANGIO IMG S&I N/A 06/26/2023 CORONARY ANGIOGRAPHY; W [facility],POSSIBLE PCI (WRVU 5.6) performed by Avani Danielle MD at [facility] CATHLABS PRO CABG, ARTERIAL, SINGLE Left 06/13/2020 @CABG, USING ARTERIAL GRAFT;SINGLE ARTERIAL GRAFT (WRVU 33.75) performed by Chun Wiley MD at [facility] MAIN OR PRO CABG, ARTERY-VEIN, TWO N/A 06/13/2020 @CABG, TWO VENOUS GRAFTS & ARTERIAL GRAFT (WRVU 7.93) performed by Chun Wiley MD at [facility] MAIN OR PRO ENDOSCOPY W/VIDEO-ASST VEIN HARVEST, CABG Right 06/13/2020 ENDOSCOPIC HARVEST VEIN(S) FOR CABG (WRVU 0.31) performed by Chun Wiley MD at [facility] MAIN OR PRO PERC TRLUML CORONARY STENT W/ANGIO ADDL ART/BRANCH N/A 06/26/2023 STENT PLACEMENT-EACH ADDITIONAL BRANCH OF A MAJOR CORONARY ARTERY (WRVU *) performed by Avani Danielle MD at [facility] CATH LABS PRO PERC TRLUML CORONARY STENT W/ANGIO ONE ART/BRANCH N/A 06/26/2023 STENT PLACEMENT-SINGLE MAJOR CORONARY ARTERY OR BRANCH (WRVU 10.96) performed by Avani Danielle MD at [facility] CATH LABS PRO REPLACEMENT PROSTHETIC AORTIC VALVE OPEN W CARDIOPULMONARY BYPASS HOMOGRF/STENT N/A 06/13/2020 @REPLACE AORTIC VALVE, OPEN, W\CPB, W\PROSTHETIC VALVE (WRVU 41.32) performed by Chun Wiley MD at [facility] MAIN OR Significant Family History: Reviewed, noncontributory [...] DM2, HTN, HLD is a transfer from [facility] for shortness of breath evaluation and management [...] aspirin 81 mg daily, Zetia, atorvastatin and gfmv-lbgqfej-debm dose -Patient does not have any active [...] CVA status post left heart catheterization, right CLEANING TEAM MEMBER occlusion # Hemorrhagic CVA, 03/09/2024 Patient was [...] adjacent thalamus infarctions. Vascular imaging showed Right CLEANING TEAM MEMBER occlusion (distal P2 segment), severe right ICA [...] magnesium levels daily and replete accordingly. # Amp-wptkpfk-bttvjjbun type 2 diabetes mellitus Hold off on [...] 03/19/2024 10:16 AM EDT Johnson completed a [place] Advanced Directive and stated that if he [...] Team, bedside nurse, medical record, and Patient PHYSIOLOGICAL CHEMIST Introduced self/reviewed role; services accepted. Admitted From: Transfer from another hospital Location: [facility] Reason for Hospitalization: SOB Past medical History: [...] surrogate would be surrogate decision maker per [place] surrogate decision making law. (Only good for 180 days) Any patient receiving care in [place] must abide by [place] law. The hierarchy for surrogate decision making [...] (i) The agent with financial power of ip attorney or a conservator appointed in accordance [...] homeless or living in a half-way (including now)?: No In the past 12 months has the electric, gas, oil, or water [employer] threatened to shut off services in your [...] regularly for steadiness) Home Address confirmed as: [facility] [place] [address] Social & Family Supports: All names listed below confirmed with patient as current and correct Extended Emergency Contact Information Primary Emergency Contact: Emili Tobar Address: [address] [facility] [address] [place] Relation: Spouse Secondary Emergency [...] Pertinent/Service Specific Information: Health/Prescription Coverage: Primary Insurance: [employer] MANAGED MEDICARE Payor: [facility] MANAGED MEDICARE / Plan: MV MANAGED MEDICARE / Product Type: *No Product type* / Secondary Insurance: N/A ; Prescription Coverage: Yes Preferred Pharmacy: [id number] - [place], [place] - [address] [facility] [address] [facility] [address] [place] Status: Patient is a : No Primary Care Provider confirmed: RASHEL Do [phone] Patient/Caregiver Goals of Treatment: Potential Needs for [...] care as indicated. ANGELINE Yancey Cardiology, ext. [phone] * Consult Note - Stephanie Fortune LPN [...] 2:30 PM EST [place] [address] Susanna Cm APRN [facility] [place] [address] Scheduled Referrals Name Type Priority Associated Diagnoses [...] - 199 mg/dL 03/21/2024 2:21 PM EDT [facility] Comment:Supplemental ranges: <140 mg/dL before meals <180 mg/dL all other times of the day. Blood CAPILLARY BLOOD / Unknown 03/21/2024 2:20 PM EDT 03/21/2024 2:21 PM EDT Avtar Palafox MD POINT OF CARE TEST O RDERABLES Performing Organization Address [facility] Co de Phone Number [facility] [place] [address] * (ABNORMAL) POC, GLUCOSE (03/21/2024 11:28 AM EDT) Glucometer, POC 256(H) 65 - 199 mg/dL 03/21/2024 11:29 AM EDT [facility] Comment:Supplemental ranges: <140 mg/dL before meals <180 mg/dL all other times of the day. Blood CAPILLARY BLOOD / Unknown 03/21/2024 11:28 AM EDT 03/21/2024 11:29 AM EDT Avtar Palafox MD POINT OF CARE TEST O RDERAJHONATAN Performing Organization Address [facility] Co de Phone Number [facility] [place] [address] * POC, GLUCOSE (03/21/2024 7:30 AM EDT) Glucometer, POC 144 65 - 199 mg/dL 03/21/2024 7:31 AM EDT [facility] Comment:Supplemental ranges: <140 mg/dL before meals <180 mg/dL all other times of the day. Blood CAPILLARY BLOOD / Unknown 03/21/2024 7:30 AM EDT 03/21/2024 7:31 AM EDT Avtar Palafox MD POINT OF CARE TEST O RDERABLES Performing Organization Address [facility] Co de Phone Number [facility] [place] [address] * POC, GLUCOSE (03/21/2024 3:17 AM EDT) Glucometer, POC 132 65 - 199 mg/dL 03/21/2024 3:17 AM EDT [facility] Comment:Supplemental ranges: <140 mg/dL before meals <180 mg/dL all other times of the day. Blood CAPILLARY BLOOD / Unknown 03/21/2024 3:17 AM EDT 03/21/2024 3:17 AM EDT Avtar Palafox MD POINT OF CARE TEST O JAYDEN Performing Organization Address [facility] Co de Phone Number [facility] [place] [address] * POC, GLUCOSE (03/20/2024 11:58 PM EDT) Glucometer, POC 125 65 - 199 mg/dL 03/20/2024 11:59 PM EDT [facility] Comment:Supplemental ranges: <140 mg/dL before meals <180 mg/dL all other times of the day. Blood CAPILLARY BLOOD / Unknown 03/20/2024 11:58 PM EDT 03/20/2024 11:59 PM EDT Avtar Palafox MD POINT OF CARE TEST O JAYDEN Performing Organization Address [facility]/ZIP Co de Phone Number [facility] [place] [address] * POC, GLUCOSE (03/20/2024 7:40 PM EDT) Glucometer, POC 182 65 - 199 mg/dL 03/20/2024 7:43 PM EDT [facility] Comment:Supplemental ranges: <140 mg/dL before meals <180 mg/dL all other times of the day. Blood CAPILLARY BLOOD / Unknown 03/20/2024 7:40 PM EDT 03/20/2024 7:43 PM EDT Avtar Palafox MD POINT OF CARE TEST O JAYDEN Performing Organization Address City/[facility]/ZIP Co de Phone Number [facility] [place] [address] * POC, GLUCOSE (03/20/2024 4:28 PM EDT) Glucometer, POC 114 65 - 199 mg/dL 03/20/2024 4:28 PM EDT [facility] Comment:Supplemental ranges: <140 mg/dL before meals <180 mg/dL all other times of the day. Blood CAPILLARY BLOOD / Unknown 03/20/2024 4:28 PM EDT 03/20/2024 4:28 PM EDT Avtar Palafox MD POINT OF CARE TEST O JAYDEN Performing Organization Address [facility] Co de Phone Number [facility] [place] [address] * (ABNORMAL) POC, GLUCOSE (03/20/2024 12:01 PM EDT) Glucometer, POC 213(H) 65 - 199 mg/dL 03/20/2024 12:01 PM EDT [facility] Comment:Supplemental ranges: <140 mg/dL before meals <180 mg/dL all other times of the day. Blood CAPILLARY BLOOD / Unknown 03/20/2024 12:01 PM EDT 03/20/2024 12:02 PM EDT Avtar Palafox MD POINT OF CARE TEST O JAYDEN Performing Organization Address City/[facility]/ZIP Co de Phone Number [facility] [place] [address] * POC, GLUCOSE (03/20/2024 7:25 AM EDT) Glucometer, POC 138 65 - 199 mg/dL 03/20/2024 7:25 AM EDT [facility] Comment:Supplemental ranges: <140 mg/dL before meals <180 mg/dL all other times of the day. Blood CAPILLARY BLOOD / Unknown 03/20/2024 7:25 AM EDT 03/20/2024 7:25 AM EDT Carlos Oakley MD POINT OF CARE T EST ORDERABLES Performing Organization Address City/[facility] Co de Phone Number [facility] [place] [address] * POC, GLUCOSE (03/20/2024 3:50 AM EDT) Glucometer, POC 145 65 - 199 mg/dL 03/20/2024 3:50 AM EDT [facility] Comment:Supplemental ranges: <140 mg/dL before meals <180 mg/dL all other times of the day. Blood CAPILLARY BLOOD / Unknown 03/20/2024 3:50 AM EDT 03/20/2024 3:50 AM EDT Carlos Oakley MD POINT OF CARE T EST ORDERABLES Performing Organization Address [facility] Co de Phone Number [facility] [place] [phone] * POC, GLUCOSE (03/20/2024 12:08 AM EDT) Glucometer, POC 147 65 - 199 mg/dL 03/20/2024 12:08 AM EDT [facility] Comment:Supplemental ranges: <140 mg/dL before meals <180 mg/dL all other times of the day. Blood CAPILLARY BLOOD / Unknown 03/20/2024 12:08 AM EDT 03/20/2024 12:08 AM EDT Carlos Oakley MD POINT OF CARE T EST ORDERABLES Performing Organization Address City/[facility]/ZIP Co de Phone Number [facility] [place] [address] * POC, GLUCOSE (03/19/2024 7:04 PM EDT) Glucometer, POC 122 65 - 199 mg/dL 03/19/2024 7:04 PM EDT [facility] Comment:Supplemental ranges: <140 mg/dL before meals <180 mg/dL all other times of the day. Blood CAPILLARY BLOOD / Unknown 03/19/2024 7:04 PM EDT 03/19/2024 7:04 PM EDT Carlos Oakley MD POINT OF CARE T EST ORDERABLES [facility] [place] [address] * POC, GLUCOSE (03/19/2024 6:15 PM EDT) Glucometer, POC 111 65 - 199 mg/dL 03/19/2024 6:15 PM EDT [facility] Comment:Supplemental ranges: <140 mg/dL before meals <180 mg/dL all other times of the day. Blood CAPILLARY BLOOD / Unknown 03/19/2024 6:15 PM EDT 03/19/2024 6:15 PM EDT Carlos Oakley MD POINT OF CARE T EST ORDERABLES [facility] [place] [address] * (ABNORMAL) POC, GLUCOSE (03/19/2024 4:09 PM EDT) Glucometer, POC 273(H) 65 - 199 mg/dL 03/19/2024 4:09 PM EDT [facility] Comment:Supplemental ranges: <140 mg/dL before meals <180 mg/dL all other times of the day. Blood CAPILLARY BLOOD / Unknown 03/19/2024 4:09 PM EDT 03/19/2024 4:09 PM EDT Carlos Oakley MD POINT OF CARE T EST ORDERABLES Performing Organization Address [facility] Co de Phone Number [facility] [place] [address] * (ABNORMAL) POC, GLUCOSE (03/19/2024 11:16 AM EDT) Glucometer, POC 271(H) 65 - 199 mg/dL 03/19/2024 11:16 AM EDT [facility] Comment:Supplemental ranges: <140 mg/dL before meals <180 mg/dL all other times of the day. Blood CAPILLARY BLOOD / Unknown 03/19/2024 11:16 AM EDT 03/19/2024 11:16 AM EDT Carlos Oakley MD POINT OF CARE T EST ORDERABLES Performing Organization Address [facility] Co de Phone Number [facility] [place] [address] * POC, GLUCOSE (03/19/2024 7:28 AM EDT) Glucometer, POC 149 65 - 199 mg/dL 03/19/2024 7:28 AM EDT [facility] Comment:Supplemental ranges: <140 mg/dL before meals <180 mg/dL all other times of the day. Blood CAPILLARY BLOOD / Unknown 03/19/2024 7:28 AM EDT 03/19/2024 7:29 AM EDT Carlos Oakley MD POINT OF CARE T EST ORDERABLES Performing Organization Address City/[facility]/ZIP Co de Phone Number [facility] [place] [address] * (ABNORMAL) Basic Metabolic Panel (03/19/2024 7:04 AM EDT) Glucose 142 65 - 199 mg/dL 03/19/2024 7:49 AM EDT [facility] Comment:Glucose Concentratio n >=200 mg/dL plus symptoms is consistent with Diabetes Mellitus. Blood Urea Nitrogen 15 10 - 20 mg/dL 03/19/2024 7:49 AM [facility] Creatinine 1.11 0.80 - 1.50 mg/dL 03/19/2024 7:49 AM [facility] Sodium 134(L) 135 - 145 mMol/L 03/19/2024 7:49 AM [facility] Potassium 4.3 3.5 - 5.0 mMol/L 03/19/2024 7:49 AM [facility] Chloride 96(L) 98 - 107 mMol/L 03/19/2024 7:49 AM [facility] Carbon Dioxide 26 22 - 31 mMol/L 03/19/2024 7:49 AM [facility] Anion Gap 12 5 - 15 mMol/L 03/19/2024 7:49 AM [facility] Calcium 9.2 8.5 - 10.5 mg/dL 03/19/2024 7:49 AM [facility] Est Glomerular Filtration Rate - Male 70 mL/min/1. 73 m?? 03/19/2024 7:49 AM [facility] Comment: This patient's estimated [...] MD CHEMISTRY ORDER DILLON Performing Organization Address City/[facility]/ZIP Co de Phone Number [facility] [place] [address] * POC, GLUCOSE (03/18/2024 7:47 PM EDT) Glucometer, POC 110 65 - 199 mg/dL 03/18/2024 7:47 PM EDT [facility] Comment:Supplemental ranges: <140 mg/dL before meals <180 mg/dL all other times of the day. Blood CAPILLARY BLOOD / Unknown 03/18/2024 7:47 PM EDT 03/18/2024 7:47 PM EDT Carlos Oakley MD POINT OF CARE T EST ORDERABLES Performing Organization Address [facility] Co de Phone Number [facility] [place] [address] * (ABNORMAL) POC, GLUCOSE (03/18/2024 4:36 PM EDT) Glucometer, POC 246(H) 65 - 199 mg/dL 03/18/2024 4:36 PM EDT [facility] Comment:Supplemental ranges: <140 mg/dL before meals <180 mg/dL all other times of the day. Blood CAPILLARY BLOOD / Unknown 03/18/2024 4:36 PM EDT 03/18/2024 4:37 PM EDT Carlos Oakley MD POINT OF CARE T EST ORDERABLES Performing Organization Address City/[facility]/ZIP Co de Phone Number [facility] [place] [address] * Sodium, urine, random (03/18/2024 3:31 PM EDT) Sodium, Urine 95 mMol/L 03/18/2024 4:43 PM EDT [facility] Urine URINE SPECIMEN / Unknown Non Blood Collection / Unknown 03/18/2024 3:31 PM EDT 03/18/2024 3:37 PM EDT Carlos Oakley MD URINE ORDERABLE S Performing Organization Address [facility]/ZIP Co de Phone Number [facility] [place] [address] * (ABNORMAL) POC, GLUCOSE (03/18/2024 2:09 PM EDT) Glucometer, POC 266(H) 65 - 199 mg/dL 03/18/2024 2:10 PM EDT [facility] Comment:Supplemental ranges: <140 mg/dL before meals <180 mg/dL all other times of the day. Blood CAPILLARY BLOOD / Unknown 03/18/2024 2:09 PM EDT 03/18/2024 2:10 PM EDT Carlos Oakley MD POINT OF CARE T EST ORDERABLES Performing Organization Address [facility] Co de Phone Number [facility] [place] [address] * (ABNORMAL) POC, GLUCOSE (03/18/2024 12:15 PM EDT) Glucometer, POC 291(H) 65 - 199 mg/dL 03/18/2024 12:16 PM EDT [facility] Comment:Supplemental ranges: <140 mg/dL before meals <180 mg/dL all other times of the day. Blood CAPILLARY BLOOD / Unknown 03/18/2024 12:15 PM EDT 03/18/2024 12:16 PM EDT Carlos Oakley MD POINT OF CARE T EST ORDERABLES [facility] [place] [address] * (ABNORMAL) POC, GLUCOSE (03/18/2024 12:14 PM EDT) Glucometer, POC 254(H) 65 - 199 mg/dL 03/18/2024 12:16 PM EDT [facility] Comment:Supplemental ranges: <140 mg/dL before meals <180 mg/dL all other times of the day. Blood CAPILLARY BLOOD / Unknown 03/18/2024 12:14 PM EDT 03/18/2024 12:16 PM EDT Carlos Oakley MD POINT OF CARE T EST ORDERABLES [facility] [place] [address] * ECHO LMTD W CONTRAST W LMTD SPEC DOPP (03/18/2024 11:21 AM EDT) EF 42 HEARTLAB SYSTEM Anatomical Region Laterality Modality Cardiac Other 03/18/2024 10:2 2 AM EDT Narrative 03/18/2024 1:13 PM EDT [address] [place] [address] ? Echocardiogram Report Name: JOHNSON TOBAR ?Study Date: 03/18/2024 10:22 AMBP: 119/74 mmHg ? Patient Location: [place] [address] A : 1950 ? Height: 165 cm ? Account: [id number] Age: 73 yrs ? Weight: 74 kg Gender: Male ?BSA: 1.8 m2 Ordering Physician: BYRON CARLSON Referring Physician: LILIA MICHELLE Performed By: Chris Burnham RDCS Reason For Study: CHF Interpreting Fellow: Jorge A Ghotra. Exam Location: [facility]. Interpretation Summary Technically limited study due [...] motions abnormalities are new. Procedure Limited - 95121. Doppler - 68020. Color Doppler - 14132. Image enhancement Optison was used for left [...] Procedure Note John Andrade MD - 03/18/[address] [place] [address] Echocardiogram Report Name: JOHNSON TOBAR Study Date: 0:22 AMBP: 119/74 mmHg Patient Location: [id number] : 1950 Height: 165 cm Account: [id number] Age: 73 yrs Weight: 74 kg Gender: Male BSA: 1.8 m2 Ordering Physician: BYRON CARLSON Referring Physician: LILIA MICHELLE Performed By: Chris uBrnham RDCS Reason For Study: CHF Interpreting Fellow: Jorge A Ghotra. Exam Location: [facility]. Interpretation Summary Technically limited study due [...] motions abnormalities are new. Procedure Limited - 42975. Doppler - 70322. Color Doppler - 70071. Image enhancementOptison was used for left ventricular [...] 250(H) <=22 ng/L 03/18/2024 12:37 PM EDT [facility] Comment: This patient's troponin T [...] value can be found in the [facility] Laboratory Test Catalog Troponin - [email or web address] hospitalAccess Pharmaceuticals.testcatalog.org/catalogs/565/files/31595 Reference: [place] Definition of Myocardial Infarction. Journal of the [place] College [employer] 2018;72:8676-2427 Blood VENOUS BLOOD SPECIMEN / Unknown IP Care Team Draw / Unknown 03/18/2024 10:53 AM EDT 03/18/2024 11:52 AM EDT Carlos Oakley MD CHEMISTRY ORDER DILLON [facility] [place] [address] * (ABNORMAL) Troponin - Single (03/18/2024 7:55 AM EDT) Troponin-T, High Sensitivity 217(H) <=22 ng/L 03/18/2024 8:58 AM EDT [facility] Comment: This patient's troponin T [...] value can be found in the [facility] Laboratory Test Catalog Troponin - https://[employer].testcatalog.org/catalogs/565/files/73837 Reference: [place] Definition of Myocardial Infarction. Journal of the [place] College of Cardiology 2018;72:7273-3559 Blood VENOUS BLOOD SPECIMEN / Unknown IP Care Team Draw / Unknown 03/18/2024 7:55 AM EDT 03/18/2024 8:25 AM EDT Carlos Oakley MD CHEMISTRY ORDER DILLON Performing Organization Address City/[facility]/ZIP Co de Phone Number [facility] [place] [address] * POC, GLUCOSE (03/18/2024 7:54 AM EDT) Glucometer, POC 158 65 - 199 mg/dL 03/18/2024 7:54 AM EDT [facility] Comment:Supplemental ranges: <140 mg/dL before meals <180 mg/dL all other times of the day. Blood CAPILLARY BLOOD / Unknown 03/18/2024 7:54 AM EDT 03/18/2024 7:54 AM EDT Carlos Oakley MD POINT OF CARE T EST ORDERABLES Performing Organization Address [facility]/ZIP Co de Phone Number [facility] [place] [address] * POC, GLUCOSE (03/18/2024 1:26 AM EDT) Glucometer, POC 155 65 - 199 mg/dL 03/18/2024 1:26 AM EDT [facility] Comment:Supplemental ranges: <140 mg/dL before meals <180 mg/dL all other times of the day. Blood CAPILLARY BLOOD / Unknown 03/18/2024 1:26 AM EDT 03/18/2024 1:26 AM EDT Carlos Oakley MD POINT OF CARE T EST ORDERABLES [facility] [place] [address] * CT Head wo Contrast (Generic) (03/18/2024 1:13 AM EDT) WORKSTATION ID [id number] RAD Anatomical Region Laterality Modality Head Computed [...] who have questions please contact the health youth care worker that requested your imaging first. ? Narrative [...] patients who have questions please contactthe health youth care worker that requested your imaging first. Saniya Patrick MD IM CT ORDERABLES * Respiratory Panel PCR (03/18/2024 12:08 AM EDT) Respiratory Panel PCR Negative Negative 03/18/2024 1:29 AM EDT [facility] Adenovirus Not Detected Not Detected 03/18/2024 1:29 AM EDT [facility] Coronavirus HKU1 Not Detected Not Detected 03/18/2024 1:29 AM EDT [facility] Coronavirus NL63 Not Detected Not Detected 03/18/2024 1:29 AM EDT [facility] Coronavirus 229E Not Detected Not Detected 03/18/2024 1:29 AM EDT [facility] Coronavirus OC43 Not Detected Not Detected 03/18/2024 1:29 AM EDT [facility] SARS-CoV-2 Not Detected Not Detected 03/18/2024 1:29 AM EDT [facility] Human Metapneumovirus Not Detected Not Detected 03/18/2024 1:29 AM EDT [facility] Human Rhinovirus/Enterov irus Not Detected Not Detected 03/18/2024 1:29 AM EDT [facility] Influenza A Not Detected Not Detected 03/18/2024 1:29 AM EDT [facility] Influenza B Not Detected Not Detected 03/18/2024 1:29 AM EDT [facility] Parainfluenza 1 Not Detected Not Detected 03/18/2024 1:29 AM EDT [facility] Parainfluenza 2 Not Detected Not Detected 03/18/2024 1:29 AM EDT [facility] Parainfluenza 3 Not Detected Not Detected 03/18/2024 1:29 AM EDT [facility] Parainfluenza 4 Not Detected Not Detected 03/18/2024 1:29 AM EDT [facility] Respiratory Syncytial Virus Not Detected Not Detected 03/18/2024 1:29 AM EDT [facility] Chlamydophila pneumoniae Not Detected Not Detected 03/18/2024 1:29 AM EDT [facility] Mycoplasma pneumoniae Not Detected Not Detected 03/18/2024 1:29 AM EDT [facility] Swab SPECIMEN FROM NASOPHARYNGEAL STRUCTURE / Unknown Non Blood Collection / Unknown 03/18/2024 12:08 AM EDT 03/18/2024 12:[address] [facility] - 03/18/2024 1:29 AM EDT Respiratory Panels are performed on the CM Sistemi using multiplexed PCR nucleic acid detection. Negative results do not preclude respiratory infection and should not be used as the sole basis for diagnosis, treatment, or other management decisions. Saniya Patrick MD MICROBIOLOGY - [facility] AL ORDERABLES [facility] [place] [address] * XR Chest One View (03/18/2024 12:01 AM EDT) WORKSTATION ID [id number] RAD Anatomical Region Laterality Modality Chest N/A [...] who have questions please contact the health youth care worker that requested your imaging first. ? Electronically signed by: Theo Lunsford MD, [facility] ??([phone]), at 03/18/2024 8:59 AM Narrative 03/18/2024 8:59 [...] patients who have questions please contactthe health youth care worker that requested your imaging first. Saniya Patrick MD IMG DX ORDERABLES * EKG 12 Lead (03/17/2024 11:39 PM EDT) Ventricular rate 77 BPM MUSE SYSTEM Atrial Rate 77 BPM MUSE SYSTEM P-R Interval 116 ms MUSE SYSTEM QRS Duration 92 ms MUSE SYSTEM Q-T Interval 384 ms MUSE SYSTEM QTC Calculated (Bezet) 434 ms MUSE SYSTEM Calculated P [place] 71 degrees MUSE SYSTEM Calculated R [place] -14 degrees MUSE SYSTEM Calculated T [place] 36 degrees MUSE SYSTEM INTERPRETATION Normal sinus rhythm Possible Left atrial enlargement Nonspecific ST and T wave abnormality Abnormal ECG When compared with ECG of 24-FEB-2024 02:00, Criteria for Inferior infarct are no longer Present I personally reviewed the tracing and edited the fellows interpretation Confirmed by fellow Sloan Coello ([id number]) on 03/18/2024 9:06:47 PM Confirmed by MD Hollingsworth Jose ([id number]) on 03/19/2024 2:56:46 PM MUSE SYSTEM 03/17/2024 11:3 9 PM EDT 03/19/2024 2:56 PM EDT Saniya Patrick MD ECG ORDERABLES MUSE SYSTEM * (ABNORMAL) Troponin - Single (03/17/2024 11:34 PM EDT) Troponin-T, High Sensitivity 137(H) <=22 ng/L 03/18/2024 12:19 AM EDT [facility] Comment: This patient's troponin T [...] value can be found in the [facility] Laboratory Test Catalog Troponin - https://[facility] hospitalAccess Pharmaceuticals.testcatalog.org/catalogs/565/files/26916 Reference: [place] Definition of Myocardial Infarction. Journal of the [place] College [employer] Cardiology 2018;72:1480-0427 Blood VENOUS BLOOD SPECIMEN / Unknown Venipuncture / Unknown 03/17/2024 11:34 PM EDT 03/17/2024 11:38 PM EDT Saniya Patrick MD CHEMISTRY ORDERABLES [facility] [place] [address] * Hepatic Function Panel (03/17/2024 11:34 PM EDT) Albumin 3.6 3.2 - 5.2 g/dL 03/18/2024 12:19 AM EDT [facility] Aspartate Aminotransferase 26 <=39 unit/L 03/18/2024 12:19 AM EDT [facility] Alanine Aminotransferase 16 0 - 55 unit/L 03/18/2024 12:19 AM [facility] Alkaline Phosphatase 105 40 - 130 unit/L 03/18/2024 12:19 AM [facility] Bilirubin, Total 0.7 <=1.3 mg/dL 03/18/2024 12:19 AM EDT [facility] Bilirubin, Direct 0.3 0.0 - 0.3 mg/dL 03/18/2024 12:19 AM EDT [facility] Protein, Total 6.7 6.1 - 8.0 g/dL 03/18/2024 12:19 AM EDT [facility] Blood VENOUS BLOOD SPECIMEN / Unknown Venipuncture / Unknown 03/17/2024 11:34 PM EDT 03/17/2024 11:38 PM EDT Saniya Patrick MD CHEMISTRY ORDERABLES [facility] [place] [address] * (ABNORMAL) pro-Brain Natriuretic Peptide (03/17/2024 11:34 PM EDT) NT-proBNP 7,905(H) <=124 pg/mL 03/18/2024 12:19 AM EDT [facility] Blood VENOUS BLOOD SPECIMEN / Unknown Venipuncture / Unknown 03/17/2024 11:34 PM EDT 03/17/2024 11:38 PM EDT Saniya Patrick MD CHEMISTRY ORDERABLES Performing Organization Address [facility] Co de Phone Number [facility] [place] [address] * (ABNORMAL) Magnesium (03/17/2024 11:34 PM EDT) Magnesium 0.65(L) 0.69 - 1.07 mMol/L 03/18/2024 12:19 AM EDT [facility] Blood VENOUS BLOOD SPECIMEN / Unknown Venipuncture / Unknown 03/17/2024 11:34 PM EDT 03/17/2024 11:38 PM EDT Saniya Patrick MD CHEMISTRY ORDERABLES Performing Organization Address City/[facility]/ZIP Co de Phone Number [facility] [place] [address] * Basic Metabolic Panel (03/17/2024 11:34 PM EDT) Glucose 193 65 - 199 mg/dL 03/18/2024 12:19 AM [facility] Comment:Glucose Concentratio n >=200 mg/dL plus symptoms is consistent with Diabetes Mellitus. Blood Urea Nitrogen 14 10 - 20 mg/dL 03/18/2024 12:19 AM [facility] Creatinine 1.11 0.80 - 1.50 mg/dL 03/18/2024 12:19 AM [facility] Sodium 137 135 - 145 mMol/L 03/18/2024 12:19 AM [facility] Potassium 3.8 3.5 - 5.0 mMol/L 03/18/2024 12:19 AM [facility] Chloride 100 98 - 107 mMol/L 03/18/2024 12:19 AM [facility] Carbon Dioxide 22 22 - 31 mMol/L 03/18/2024 12:19 AM [facility] Anion Gap 15 5 - 15 mMol/L 03/18/2024 12:19 AM [facility] Calcium 9.1 8.5 - 10.5 mg/dL 03/18/2024 12:19 AM [facility] Est Glomerular Filtration Rate - Male 70 mL/min/1. 73 m?? 03/18/2024 12:19 AM [facility] Comment: This patient's estimated [...] PM EDT Saniya Patrick MD CHEMISTRY ORDERABLES [facility] [place] [address] * (ABNORMAL) CBC (with Diff) (03/17/2024 11:34 PM EDT) White Blood Cell 7.96 4.00 - 9.50 x10(3)/mc L 03/17/2024 11:47 PM EDT [facility] Red Blood Cell 3.71(L) 4.58 - 5.54 x10(6)/mc L 03/17/2024 11:47 PM EDT [facility] Hemoglobin 10.1(L) 13.7 - 16.5 g/dL 03/17/2024 11:47 PM EDT [facility] Hematocrit 31.2(L) 40.5 - 48.5 % 03/17/2024 11:47 PM EDT [facility] Mean Cell Volume 84.1 82.9 - 93.1 fL 03/17/2024 11:47 PM EDT [facility] Mean Cell Hemoglobin 27.2(L) 27.5 - 32.1 pg 03/17/2024 11:47 PM EDT [facility] Mean Cell Hemoglobin Concentration 32.4 32.0 - 35.7 g/dL 03/17/2024 11:47 PM EDT [facility] Platelet 221 145 - 357 x10(3)/mc L 03/17/2024 11:47 PM EDT [facility] Mean Platelet Volume 10.5 7.6 - 12.9 fL 03/17/2024 11:47 PM EDT [facility] RDW Standard Deviation 51.9(H) 36.0 - 45.0 fL 03/17/2024 11:47 PM EDT [facility] RDW coefficient of variation 17.3(H) 11.4 - 13.8 % 03/17/2024 11:47 PM [facility] NRBC% auto 0.0 % 03/17/2024 11:47 PM [facility] NRBC Absolute 0.00 0.00 - 0.00 x10(3)/mc L 03/17/2024 11:47 PM [facility] Neutrophil % 74.1 % 03/17/2024 11:47 PM [facility] Neutrophil Absolute (ANC) - Automated 5.90 1.70 - 6.10 x10(3)/mc L 03/17/2024 11:47 PM [facility] Lymph % 10.3 % 03/17/2024 11:47 PM [facility] Lymph Absolute 0.82(L) 0.90 - 3.20 x10(3)/mc L 03/17/2024 11:47 PM [facility] Monocyte % 11.4 % 03/17/2024 11:47 PM [facility] Monocyte Absolute 0.91(H) 0.30 - 0.90 x10(3)/mc L 03/17/2024 11:47 PM [facility] Eos % 3.3 % 03/17/2024 11:47 PM [facility] Eos Absolute 0.26 0.00 - 0.40 x10(3)/mc L 03/17/2024 11:47 PM [facility] Basophil % 0.5 % 03/17/2024 11:47 PM [facility] Baso Absolute 0.04 0.00 - 0.10 x10(3)/mc L 03/17/2024 11:47 PM [facility] Immature Gran % 0.4 % 11:47 PM [facility] Immature Gran Absolute 0.03 0.00 - 0.04 x10(3)/mc L 03/17/2024 11:47 PM [facility] Blood VENOUS BLOOD SPECIMEN / Unknown Venipuncture / Unknown 03/17/2024 11:34 PM EDT 03/17/2024 11:38 PM EDT Saniya Patrick MD HEMATOLOGY ORDERABLE S [facility] [place] [address] documented in this encounter Visit Diagnoses Diagnosis [...] 40 mg, Oral, DAILY, First dose on 03/21/24 at 0900, Until Discontinued, Routine documented in [...] per MD) 0830 (Given - Provider: Alen Collins, MOISES)1520 (Given - Provider: Alen Collins RN) 0900 (Not Given - Provider: Alexa Lopez RN - Reason: Order parameters not met - Comment: BP 86/48)1500 (Due) aspirin EC tablet 81 mg 81 mg, Oral, DAILY, First dose on Sat03/18/24 at 0900, Until Discontinued, Routine 09 (Given - Provider: Alen Collins RN) 0830 (Given - Provider: Alen Collins RN) 0852 (Given - Provider: Alexa Lopez, MOISES) ezetimibe (Zetia) tablet 10 mg 10 mg, Oral, DAILY, First dose on Sat03/18/24 at 0900, Until Discontinued, Routine 0920 (Given - Provider: Alen Collins RN) 0829 (Given - Provider: Alen Collins, MOISES) 0852 (Given - Provider: Alexa Lopez, MOISES) furosemide (Lasix) (10 mg/mL) injection 80 mg (COMPLETED) 80 mg, Intravenous, ONCE, 1 dose, On Mary Beth 03/19/24 at 0715 0917 (Given - Provider: Alen Collins RN) furosemide (Lasix) tablet 60 mg (CANCELED) 60 mg, Oral, DAILY, First dose (after last modification) on Sat03/20/24 at 0900, Until Discontinued, Routine 08 (Given - Provider: Alen Collins, MOISES) insulin glargine-ygfn (Semglee) (100 unit/mL) subcutaneous injection vial 14 Units (CANCELED) 14 Units, Subcutaneous, DAILY, First dose on Sat03/20/24 at 0900, Until Discontinued, Routine 826 (Given - Provider: Alen Collins RN) 0853 (Given - Provider: Alexa Lopez, MOISES) insulin glargine-ygfn (Semglee) (100 unit/mL) subcutaneous injection vial 8 Units (CANCELED) 8 Units, Subcutaneous, DAILY, First dose on Sat03/18/24 at 0900, Until Discontinued, Routine 923 (Given - Provider: Alen Collins, MOISES) insulin lispro (HumaLOG;Admelog) (100 unit/mL) subcutaneous [...] - Reason: See comment - Comment: new order)1810 (Given - Provider: Zainab Cox RN - Comment: late dinner) 08 (Given - Provider: Alen Collins, MOISES)1242 (Given - Provider: Alen Collins, MOISES)1816 (Given - Provider: Alen Collins, MOISES) 0854 (Given - Provider: Alexa Lopez RN)1256 (Given - Provider: Alexa Lopez RN) insulin [...] OPEN, Routine 0922 (Given - Provider: Alen Collins, MOISES) 0829 (Given - Provider: Alen Collins, MOISES) [...] RN)2046 (Given - Provider: Tamara Westfall RN) 899 (Given - Provider: Alen Collins RN)2027 (Given - Provider: Tamara Westfall RN) 0852 (Given - Provider: Alexa Lopez RN) tamsulosin (Flomax) capsule 0.4 mg 0.4 mg, Oral, DAILY, First dose on Sat03/18/24 at 0900, Until Discontinued, DO NOT CRUSH OR CHEW, Routine 922 (Given - Provider: Alen Collins RN) 08 (Given - Provider: Alen Collins RN) 0852 (Given - Provider: Alexa Lopez RN) torsemide (Demadex) tablet 40 mg 40 mg, [...] documented as of this encounter Care Teams Community Health Agent Relationship Specialty Start Date End Date Tamia Tsai PA [address] [place] [id number] PCP - General Family Medicine 02/18/24 documented as of this encounter
--- OUTSIDE RECORDS SUMMARY | 2024-04-02 21:10 | XMS_ITS | Encounter Summary ---
Author Organization [facility] [place] [address] Care Team Providers Care Shipping And Receiving Material Handler Name Role Phone Tamia Tsai Primary Care Provider [phone] Encounter Details Date Type Department Care Team (Late st Contact Info) Description 03/11/2024 9:40 AM EDT Telehealth [place] [id number] Telehealth, Neurology None Social History Tobacco Use Types Packs/Day Years Used Date Smoking Tobacco: Never Smokeless Tobacco: Never Alcohol Use Standard Drinks/Week Comments Not Currently 0 (1 standard drink = 0.6 oz pur e alcohol) [facility] Utilities Answer Date Recorded In the past 12 months has e [employer], gas, oil, or water [employer] threatened to shut off services in your [...] any time in the past 12 m [facility], were you homeless or living [...] 2:30 PM EST Office [place] [address] Susanna Cm, ANH [facility] [place] [address] documented as of this encounter Visit Diagnoses Not on filedocumented in this encounter Care Teams Shipping And Receiving Material Handler Relationship Specialty Start Date End Date Tamia Tsai PA [address] [place] [id number] PCP - General Family Medicine 02/18/24 documented as of this encounter
--- OUTSIDE RECORDS SUMMARY | 2024-04-02 21:10 | XMS_ITS | Encounter Summary ---
Author Organization [facility] [place] [address] Care Team Providers Care Needle Grader Name Role Phone Tamia Tsai Primary Care Provider [phone] Encounter Details Date Type Department Care Team (Late st Contact Info) Description 03/17/2024 Telephone Cardiology at [address] [phone] Prabha Ngo, ANH [facility] [place] [address] Social History Tobacco Use Types Packs/Day Years Used Date Smoking Tobacco: Never Smokeless Tobacco: Never Alcohol Use Standard Drinks/Week Comments Not Currently 0 (1 standard drink = 0.6 oz pur e alcohol) [facility] Utilities Answer Date Recorded In the past 12 months has th e [employer], gas, oil, or water [employer] threatened to shut off services in your [...] any time in the past 12 m [facility], were you homeless or living in a intermediate (including now)? 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 Cath showed patent MCKEON however high-grade left circumflex lesion. Case complicated by ischemic CVA. Discharged from [facility] on [facility] with plans for outpatient cardiology [...] patient. Prabha Ngo APRN Cardiovascular Medicine Pager [phone] 03/17/2024 documented in this encounter Plan of Treatment Upcoming Encounters Date Type Department Care Team (Late st Contact Info) Description 08/27/2024 2:30 PM EST Office [place] [address] Susanna Cm APRN [facility] [place] [address] documented as of this encounter Visit Diagnoses Not on filedocumented in this encounter Care Teams Needle Grader Relationship Specialty Start Date End Date Tamia Tsai PA [address] [place] [id number] PCP - General Family Medicine 02/18/24 documented as of this encounter
--- OUTSIDE RECORDS SUMMARY | 2024-04-02 21:11 | XMS_ITS | Encounter Summary ---
Author Organization [place] [address] Care Team Providers Care Lab Associate Name Role Phone Tamia Tsai Primary Care Provider [phone] Reason for Referral * Consultation (Urgent) - Closed Specialty Diagnoses / Procedures Referred By Contac t Referred To Contact Cardiology Diagnoses NSTEMI (non-ST elevated myocardial infarction) S/P D/C - NSTEMI w/ diagnostic LHC on 02/24/2024, patent MCKEON however high-grade lesion of left circumflex. Jerome Amezquita PA [facility] [place] [address] [facility] [address] [place] [phone] Referral ID Status Reason Start Date Expiration Date V isits Requested Visits Authorized [id number] Closed Consult, Test & Treat 03/02/2024 03/02/2025 1 1 Reason for Visit * Auth/Cert (Routine) Specialty Diagnoses / Procedures Referred By Contac t Referred To Contact Diagnoses NSTEMI (non-ST elevated myocardial infarction) NSTEMI Procedures ER Mauricio Hein MD [facility] [place] [address] [facility] Referral ID Status Reason Start Date Expiration Date Visits Re quested Visits Authorized [id number] 1 1 Encounter Details Date Type Department Care Team (Latest Contact Info) Description 02/23/2024 8:38 PM EDT - 03/02/2024 2:11 PM EDT Hospital Encounter Neurosciences and ENT Unit Level [address] [place] [address] Kal Puentes MD [facility] [place] [address] Fariba Ramirez MD [facility] [place] [address] Gonzalez Barajas MD [facility] [place] [address] Arti Griffin MD [facility] [place] [address] Kd Huggins MD [facility] [place] [address] Mauricio Jean MD [facility] [place] [address] Coronary artery disease, unspecified vessel or lesion type, unspecified whether angina present, unspecified whether [place] or transplanted heart; Internal carotid artery stenosis, unspecified laterality; NSTEMI (non-ST elevated myocardial infarction) Discharge Disposition: Rehab Center in a Facility Social History Tobacco Use Types Packs/Day Years Used Date Smoking Tobacco: Never Smokeless Tobacco: Never Alcohol Use Standard Drinks/Week Comments Not Currently 0 (1 standard drink = 0.6 oz pur e alcohol) [facility] Utilities Answer Date Recorded In the past 12 months has th e electric, gas, oil, or water [employer] threatened to shut off services in your [...] any time in the past 12 m [facility], were you homeless or living in a snf (including now)? No 02/24/2024 IPV Inpatient Questions [...] Johnson Tobar Patient Age: 73 y.o. Language: Haitian Admit date: 02/23/2024 Discharge date and time: [...] on discharge: Daily Healthy Menu Choices/Cardiac diet ([facility]-Diet) 60/60/75 CHO counting [...] Discharge Diagnoses: Active Hospital Problems Diagnosis R PLASTIC TOP ASSEMBLER occlusion and infarction associated with cardiac catheterization, [...] Earlier today, he was taken to the label stamper, though no intervention required. In recovery, pt started to have slurred speech and left hemiparesis, Stroke Alert called. NIHSS 16 (LOC 1, Gaze 1, VF 1, Face 1, LUE 3, LLE 3, Sensory 2, Dysarthria 1, Language 1). CT/CTA showed R PLASTIC TOP ASSEMBLER occlusion and severe R ICA stenosis; decision [...] adjacent thalamus infarctions. Vascular imaging showed Right PLASTIC TOP ASSEMBLER occlusion (distal P2 segment), severe right ICA [...] Calculated (Bezet) ms 439 459 Calculated P [place] degrees 59 35 Calculated R [place] degrees -8 -2 Calculated T [place] degrees 0 -43 INTERPRETATION Normal sinus rhythm Possible Left atrial enlargement Inferior infarct (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-2020) Borderline ST depression Lateral leads Abnormal ECG When compared with ECG of 26-JUN-2023 13:17, No significant change was found I personally reviewed the tracing and edited the fellows interpretation Confirmed by fellow MD Sunshine, Carl ([id number]) on 02/24/2024 10:56:50 AM Confirmed by MD [...] who have questions please contact the health care coordination manager that requested your imaging first. Electronically signedby: Theo Garcia MD, [facility] ([phone]), at 02/28/2024 12:[address] Head wo Contrast (Generic) Result Date: 02/24/2024 1. Right PLASTIC TOP ASSEMBLER occlusion (distal P2 segment). 2. Severe right [...] who have questions please contact the health care coordination manager that requested your imaging first. Head and [...] patientswho have questions please contact the health care coordination manager that requested your imaging first. [place] No results found. TTE Interpretation [...] with a DEBORAH if clinically indicated. Procedure Complete-[id number]. 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 Primary Care Provider: RASHEL Do [address] / [facility] [address] Discharge References/Attachments None documented in this encounter Discharge Instructions * Patient Instructions* Jerome Amezquita PA - 03/02/2024 12:11 PM EDT Images from the original note were not included. Patient Instructions: You were admitted to the neurology service at [facility] Your Diagnosis: Stroke, NSTEMI - Work [...] follow-up appointment in the neurology clinic at [facility]. See below for the appointment time. [...] may be billed similar to a regular [facility] clinic visit. Primary Care Provider: Please follow up with your Primary Care Provider within one to 2 weeks of discharge. For questions regarding this document or issues relating to this hospitalization on the Neurology Service, please contact the author(s) of this discharge summary through the [facility] Complex Human Resources Manager . If you need to cancel or reschedule, please call Dept: [phone] as soon as possible. This is helpful to us and other waiting patients. IF FOLLOW UP VISIT WITH STROKE TEAM IS NEEDED IN FORM OF TELEHEALTH: Please ensure you have an active myD-H account and are familiar with it. Also, please ensure an active email address. To sign up for a myD-H account, Visit the [email or web address] website and 1) choose ???create an account?? [...] created. If you need technical assistance call [phone] Saturday through Saturday, 7:30 am to 5:00 pm If you plan to join your [facility] Video Visit using your personal smartphone or tablet, prior to joining your visit you will need to download the Zoom daniel from the Daniel Dotspin (for iPhone/iPad) or [employer]America (for Android). Ifyou already have Zoom downloaded on your device for personal use, you???re good to go! 1. Open the Daniel Store or [employer] Store on your device. 2. Search for Zoom and download the [employer] Terrell Meetings daniel. ? Daniel Store Link: [email or web address] ? WorkAmerica Link: [email or web address]://Overlay [email or web address]/store/apps/details?id=us.zoom.videomeetings If you plan to join your [facility] Video Visit using your computer or [...] the link to connect to your visit withinyoEnvisage Technologies portal. 1. Sign into your TodoCast TV account. 2. Select Appointments. 3. Select your [facility] Video Visit and tap Begin Visit. [...] Starting 30 minutes prior to your scheduled [facility] Video Visit, you will find the link to connect tothe visit within your TodoCast TV portal. 1. Sign into your TodoCast TV account (TodoCast TV portal link: [email or web address]/). 2. On the top of the webpage, hover over Visits and select Appointments and Visits. 3. Click the Details button next to your [facility] video visit. 4. Click the Begin [...] facility. Report called to MOISES Lyn at [facility]. Packet was given to to handoff to [...] Earlier today, he was taken to the label stamper, though no intervention required. After procedure, patient [...] 5.6) performed by Avani Danielle MD at [facility] CATHLABS PRG CATH PLMT LEFT HEART CATH & ARTS W/INJ & ANGIO IMG S&I N/A 06/26/2023 CORONARY ANGIOGRAPHY; W [facility],POSSIBLE PCI (WRVU 5.6) performed by Avani Danielle MD at [facility] CATHLABS PRO CABG, ARTERIAL, SINGLE Left 06/13/2020 @CABG, USING ARTERIAL GRAFT;SINGLE ARTERIAL GRAFT (WRVU 33.75) performed by Chun Wiley MD at [facility] MAIN OR PRO CABG, ARTERY-VEIN, TWO N/A 06/13/2020 @CABG, TWO VENOUS GRAFTS & ARTERIAL GRAFT (WRVU 7.93) performed by Chun Wiley MD at [facility] MAIN OR PRO ENDOSCOPY W/VIDEO-ASST VEIN HARVEST, CABG Right 06/13/2020 ENDOSCOPIC HARVEST VEIN(S) FOR CABG (WRVU 0.31) performed by Chun Wiley MD at [facility] MAIN OR PRO PERC TRLUML CORONARY STENT W/ANGIO ADDL ART/BRANCH N/A 06/26/2023 STENT PLACEMENT-EACH ADDITIONAL BRANCH OF A MAJOR CORONARY ARTERY (WRVU *) performed by Avani Danielle MD at [facility] CATH LABS PRO PERC TRLUML CORONARY STENT W/ANGIO ONE ART/BRANCH N/A 06/26/2023 STENT PLACEMENT-SINGLE MAJOR CORONARY ARTERY OR BRANCH (WRVU 10.96) performed by Avani Danilele MD at [facility] CATH LABS PRO REPLACEMENT PROSTHETIC AORTIC VALVE OPEN W CARDIOPULMONARY BYPASS HOMOGRF/STENT N/A 06/13/2020 @REPLACE AORTIC VALVE, OPEN, W\CPB, W\PROSTHETIC VALVE (WRVU 41.32) performed by Chun Wiley MD at [facility] MAIN OR Social History: Home set-up: [...] the patient. Total Minutes, Physical Therapy: 30 (2870-2561 2 x tef) Kd Naik TEACHER PUBLIC HEALTH Pager: [phone] Physical Therapy Inpatient Rehabilitation Department * Mihaela [...] Earlier today, he was taken to the label stamper, though no intervention required. After procedure, patient [...] 2-4 times/wk Total Minutes, Occupational Therapy: 18 [facility] ([phone][facility] Pager: [phone] Mihaela Coker OT 03/02/2024 Occupational Therapy Rehabilitation Department * Devon Lorenz - 03/02/2024 10:53 AM EDT Office of Care Management/Caustic Pump Operator Patient Name: Johnson Tobar : 1950 Patient has been offered an acute rehab bed at [facility] for today, 03/02/24 Patient will transport to facility via private car around 1300 No MD to MD report necessary Dr. Rao to admit Please call Nursing Report to [phone], ask for grain thresher. Info to accompany patient: Copies of Medication Administration Records and IV sheets for past 10 days. Plan: Caustic Pump Operator will be available to the patient and Block Operator-RN and/or Social Workerfor further assistance. Patient will be discharged to: [facility] Devon Lorenz Caustic Pump Operator * Yaya Hunter MD - 03/02/2024 6:49 AM EDT Images from the original note were not included. VASCULAR NEUROLOGY PROGRESS NOTE Admit Date 02/23/2024 Responsible Attending: Kd Huggins MD Primary Provider: RASHEL Do [phone] Hospital Day: Hospital Day: 9 Patient ID [...] hemibody weakness. Found to have acute right PLASTIC TOP ASSEMBLER infarct. 24-hr Events: -Patient feels well this [...] HA1C 8.3 (H) 02/24/2024 ASSESSMENT & PLAN Johnsonfernanda Bojorquezx 73 y.o. male with PMHx of ASCVD s/p CABG x 3 (MCKEON --> LAD, SVG --> OM1 --> D1) and RCA PCI (06/2023), severe s/p AVR (05/2020), DM2, HTN, HLD who initially presented on02/22 with chest pressure and light-headedness concerning for ACS, found to have dysarthria and lefthemiparesis and an acute distal R PLASTIC TOP ASSEMBLER occlusion s/p tPA. Most likely etiology clara-procedural. 03/02/24 Patient remains neurologically stable. He continues on DAPT with aspirin and Plavix, as well as high intensity statin and Zetia for secondary stroke risk reduction. Hyponatremia remains stable and continues to improve. Patient remains medically ready for discharge and is pending insurance authorization for acute patient rehab at [facility]. Anticipate discharge to rehab today. 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 * Linsey sEquivel RN - 03/01/2024 7:53 PM EDT Page Sent Successfully Page Confirmation To Pager number: [phone] From Submitter: Linsey Esquivel Urgency Level: FYI Callback Number: [phone] The following Message was sent: [FYI] - Callback:[id number] 503A ekaterina: pt here 7 days and awaiting placement. can VS and NC be q6wa? - Linsey Esquivel The following status was returned from the fountain server: Page for [phone] successfully sent to [phone] [...] and begin next steps. * Susanna Cm, ELECTRICIAN CRANE MAINTENANCE - 03/01/2024 8:05 AM EDT Images from the original note were not included. VASCULAR NEUROLOGY PROGRESS NOTE Admit Date 02/23/2024 Responsible Attending: Kd Huggins MD Primary Provider: RASHEL Do [phone] Hospital Day: Hospital Day: 8 Patient ID [...] hemibody weakness. Found to have acute right PLASTIC TOP ASSEMBLER infarct. 24hr Events: -NAEON, VSS, afebrile -Hyponatremia [...] 3.78 3.84 4.09 3.95 3.38 Recent Labs 03/01/2453502/29/24 0552 02/28/24 0533 02/27/2430 02/26/24 0004 NA 128* 127* 125* 128* 129* K 4.5 4.1 4.1 4.3 4.5 CL 95* 93* 93* 95* 94* CO2 19* 20* 21* 22 23 BUN 13 15 15 11 11 CREATININE 0.88 0.95 1.05 1.00 0.97 GLUCOSE 150 152 175 138 182 Recent Labs 03/01/2453502/29/2452 02/28/2453202/27/2462902/26/24 0004 CALCIUM 9.6 9.3 8.9 9.0 8.9 MAGNESIUM -- -- 0.67* 0.63* 0.79 No results for input(s): AST, ALT, ALKPHOS, BILITOT, BILIDIR, LDH in the last 168 hours. No results for input(s): TROPONINT, CK in the last 168 hours. No results for input(s): PHART, BBH8WAM, PO2ART, SCS7QHL in the last 168 hours. No results [...] hemiparesis found to have acute distal R PLASTIC TOP ASSEMBLER occlusion s/p tPA. Most likely etiology clara-procedural. 03/01/24 Patient remains neurologically stable. He continues on DAPT with aspirin and Plavix and high intensity statin and Zetia for secondary stroke risk reduction. Hyponatremia remains stable and continues to improve. Patient remains medically ready for discharge and is pending insurance authorization foracute patient rehab at [facility]. 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 - Dotty Burns The following status was returned from the fountain server: Page for [phone] successfully sent to [phone] having status of Available. * Susanna Cm, ELECTRICIAN CRANE MAINTENANCE - 02/29/2024 8:23 AM EDT Images from the original note were not included. VASCULAR NEUROLOGY PROGRESS NOTE Admit Date 02/23/2024 Responsible Attending: Kd Huggins MD Primary Provider: RASHEL Do [phone] Hospital Day: Hospital Day: 7 Patient ID [...] hemibody weakness. Found to have acute right PLASTIC TOP ASSEMBLER infarct. 24hr Events: -NAEON, VSS, afebrile -Stable [...] 182 171 Recent Labs 02/29/24 0552 02/28/24 0502/27/2462902/26/24 0004 CALCIUM 9.3 8.9 9.0 8.9 MAGNESIUM -- 0.67* 0.63* 0.79 No results for input(s): AST, ALT, ALKPHOS, BILITOT, BILIDIR, LDH in the last 168 hours. No results for input(s): TROPONINT, CK in the last 168 hours. No results for input(s): PHART, AKR2TBF, PO2ART, CID2MNU in the last 168 hours. No results [...] hemiparesis found to have acute distal R PLASTIC TOP ASSEMBLER occlusion s/p tPA. Most likely etiology clara-procedural. 02/29/24 Patient remains neurologically stable. He continues on DAPT with aspirin and Plavix and high intensity statin and Zetia for secondary stroke risk reduction. Continues to have hyponatremia. Will startsalt tablets and recommend adding salt to food. Patient remains medically ready for discharge and is pending insurance authorization for acute patient rehab at [facility]. 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 #NSTEMI s/p cardiac catherization w/o intervention 02/23 [...] nebs PRN #GI - - follow up SHEET ROCK TAPER HELPER recs - Daily Healthy Menu Choices/Cardiac diet ([facility]-Diet) 60/60/ CHO counting level 2 - maintain bowel [...] Please page Vascular Neurology with any questions, #[phone] Susanna Cm APRN Department of Neurology [place] [phone] Associated attestation - Kd Huggins MD - [...] BP Temp Temp src Pulse Resp SpO2 02/29/242031 132/71 37.1 ??C (98.8 ??F) Oral -- [...] of lab /radiology/other tests * Kd Naik, TEACHER PUBLIC HEALTH - 02/28/2024 3:39 PM EDT Physical Therapy [...] Earlier today, he was taken to the label stamper, though no intervention required. After procedure, patient [...] ANGIOPLASTY WITH STENT PLACEMENT 1997 PRG CATH [facility] LEFT HEART CATH & ARTS W/INJ & ANGIO IMG S&I N/A 05/17/2023 CORONARY ANGIOGRAPHY; W [facility],POSSIBLE PCI (WRVU 5.6) performed by Avani Danielle MD at [facility] CATHLABS PRG CATH [facility] LEFT HEART CATH & ARTS W/INJ & ANGIO IMG S&I N/A 06/26/2023 CORONARY ANGIOGRAPHY; W [facility],POSSIBLE PCI (WRVU 5.6) performed by Avani Danielle MD at [facility] CATHLABS PRO CABG, ARTERIAL, SINGLE Left 06/13/2020 @CABG, USING ARTERIAL GRAFT;SINGLE ARTERIAL GRAFT (WRVU 33.75) performed by Chun Wiley MD at [facility] MAIN OR PRO CABG, ARTERY-VEIN, TWO N/A 06/13/2020 @CABG, TWO VENOUS GRAFTS & ARTERIAL GRAFT (WRVU 7.93) performed by Chun Wiley MD at [facility] MAIN OR PRO ENDOSCOPY W/VIDEO-ASST VEIN HARVEST, CABG Right 06/13/2020 ENDOSCOPIC HARVEST VEIN(S) FOR CABG (WRVU 0.31) performed by Chun Wiley MD at [facility] MAIN OR PRO PERC TRLUML CORONARY STENT W/ANGIO ADDL ART/BRANCH N/A 06/26/2023 STENT PLACEMENT-EACH ADDITIONAL BRANCH OF A MAJOR CORONARY ARTERY (WRVU *) performed by Avani Danielle MD at [facility] CATH LABS PRO PERC TRLUML CORONARY STENT W/ANGIO ONE ART/BRANCH N/A 06/26/2023 STENT PLACEMENT-SINGLE MAJOR CORONARY ARTERY OR BRANCH (WRVU 10.96) performed by Avani Danielle MD at [facility] CATH LABS PRO REPLACEMENT PROSTHETIC AORTIC VALVE OPEN W CARDIOPULMONARY BYPASS HOMOGRF/STENT N/A 06/13/2020 @REPLACE AORTIC VALVE, OPEN, W\CPB, W\PROSTHETIC VALVE (WRVU 41.32) performed by Chun Wiley MD at [facility] MAIN OR Social History: Home set-up: [...] History: from todays Neuro note: - Patient reports that he feels ok overall this morning, but [facility] states that he continues to show [...] Bed Mobility: Supine to sit: min a ingot passer Sit to Supine: nt Transfers: Sit to [...] the patient. Total Minutes, Physical Therapy: 50 (2033-6622 3 x tef) Kd Naik, TEACHER PUBLIC HEALTH Pager: [phone] Physical Therapy Inpatient Rehabilitation Department * Carl Martínez RN - 02/28/2024 9:56 AM EDT Page Sent Successfully Page Confirmation To Pager number: [phone] From Submitter: Carl Martínez Urgency Level: FYI The following Message was sent: [FYI] - 503a; is the dixon staying in today? - Carl Martínez The following status was returned from the fountain server: Page for [phone] successfully sent to [phone] having status of Available. * Mihaela Coker OT - 02/28/2024 9:38 AM EDT Occupational [...] Earlier today, he was taken to the label stamper, though no intervention required. After procedure, patient [...] Occupational Therapy: 33 (SCHM X1 TEF x1 (2593-4276)) Pager: [phone] Mihaela Coker OT 02/28/2024 Occupational Therapy Rehabilitation Department * Yaya Hunter MD - 02/28/2024 7:07 AM EDT Images from the original note were not included. VASCULAR NEUROLOGY PROGRESS NOTE Admit Date 02/23/2024 Responsible Attending: Kd Huggins MD Primary Provider: RASHEL Do [phone] Hospital Day: Hospital Day: 6 Patient ID [...] hemibody weakness. Found to have acute right PLASTIC TOP ASSEMBLER infarct. 24hr Events: - Patient reports that [...] 168 hours. No results for input(s): PHART, ONQ3XBA, PO2ART, QXB9LLF in the last 168 hours. No results [...] Johnsonfernanda Bojorquezx 73 y.o. male with PMHx of ASCVD s/p CABG x 3 (MCKEON --> LAD, SVG --> OM1 --> D1) and RCA PCI (06/2023), severe s/p AVR (05/2020), DM2, HTN, HLD who initially presented on02/22 with chest pressure and light-headedness concerning for ACS, now with dysarthria and left hemiparesis found to have acute distal R PLASTIC TOP ASSEMBLER occlusion s/p tPA versus clara-procedural stroke. 02/28/24 Patient remains neurologically stable. Etiology unclear, possibly clara- procedural in setting of cath procedure. We plan to continue DAPT for at least 90 days for carotid stenosis per CREST, as well as high intensity statin and Zetia. Patient remains medically ready at this time and awaiting placement at [facility]. 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 After procedure, patient [...] Current Diet: Daily Healthy Menu Choices/Cardiac diet ([facility]-Diet) 60/60/75 CHO counting [...] Bolus Presentation(s) Tested Comments Thin liquids x Dubach thick liquids Honey thick liquids Pureed solids [...] Patient, Family educated on role of the SHEET ROCK TAPER HELPER and findings and plan of care. Patient [...] aspiration pneumonia Do not anticipate need from SHEET ROCK TAPER HELPER services in discharge location. Speech Therapy Goals: (To be met by discharge) Pt will maintain hydration / nutrition with optimal safety and efficiency. MET Monitor for further acute changes in speech or swallow during hospitalization MET Plan: Therapy Frequency (SHEET ROCK TAPER HELPER Eval): other (see comments) No further SHEET ROCK TAPER HELPER needs identified. Pt./family are in agreement with treatment plan. 10 min session. Thank you for this consult with this patient. Please feel free to page me with any questions or concerns. Rachel Saenz MA, CCC-SHEET ROCK TAPER HELPER Pager: [phone] Speech-Language Pathology Inpatient Rehabilitation Medicine * Carl Martínez RN - 02/27/2024 10:31 AM EDT Page Sent Successfully Page Confirmation To Pager number: [phone] From Submitter: Carl Martínez Urgency Level: FYI The following Message was sent: [FYI] - 503a; tele order expires @ 1500 today, also no BM since Saturday & no prn ordered - Carl Martínez The following status was returned from the fountain server: Page for [phone] successfully sent to [phone] having status of Available. * Yaya Hunter MD - 02/27/2024 9:23 AM EDT Images from the original note were not included. VASCULAR NEUROLOGY PROGRESS NOTE Admit Date 02/23/2024 Responsible Attending: Kd Huggins MD Primary Provider: RASHEL Do [phone] Hospital Day: Hospital Day: 5 Patient ID [...] Earlier today, he was taken to the label stamper, though no intervention required. After procedure, patient [...] no clear facial asymmetry recognized MOTOR- RUE/RLE: 5 LUE: drifts down, but able to sustain [...] 168 hours. No results for input(s): PHART, [id number], PO2ART, MYJ9XTN in the last 168 hours. Recent Labs [...] hemiparesis found to have acute distal R PLASTIC TOP ASSEMBLER occlusion now in the setting of severe [...] at this time and awaiting placement at [facility]. 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 male with [...] Earlier today, he was taken to the label stamper, though no intervention required. After procedure, patient [...] 5.6) performed by Avani Danielle MD at [facility] PRG CATH PLMT LEFT HEART CATH & ARTS W/INJ & ANGIO IMG S&I N/A 06/26/2023 CORONARY ANGIOGRAPHY; W [facility],POSSIBLE PCI (WRVU 5.6) performed by Avani Danielle MD at [facility] PRO CABG, ARTERIAL, SINGLE Left 06/13/2020 @CABG, USING ARTERIAL GRAFT;SINGLE ARTERIAL GRAFT (WRVU 33.75) performed by Chun Wiley MD at [facility] MAIN OR PRO CABG, ARTERY-VEIN, TWO N/A 06/13/2020 @CABG, TWO VENOUS GRAFTS & ARTERIAL GRAFT (WRVU 7.93) performed by Chun Wiley MD at [facility] MAIN OR PRO ENDOSCOPY W/VIDEO-ASST VEIN HARVEST, CABG Right 06/13/2020 ENDOSCOPIC HARVEST VEIN(S) FOR CABG (WRVU 0.31) performed by Chun Wiley MD at [facility] MAIN OR PRO PERC TRLUML CORONARY STENT W/ANGIO ADDL ART/BRANCH N/A 06/26/2023 STENT PLACEMENT-EACH ADDITIONAL BRANCH OF A MAJOR CORONARY ARTERY (WRVU *) performed by Avani Danielle MD at [facility] CATH [facility] PRO PERC TRLUML CORONARY STENT W/ANGIO ONE ART/BRANCH N/A 06/26/2023 STENT PLACEMENT-SINGLE MAJOR CORONARY ARTERY OR BRANCH (WRVU 10.96) performed by Avani Danielle MD at [facility] CATH [facility] PRO REPLACEMENT PROSTHETIC AORTIC VALVE OPEN W CARDIOPULMONARY BYPASS HOMOGRF/STENT N/A 06/13/2020 @REPLACE AORTIC VALVE, OPEN, W\CPB, W\PROSTHETIC VALVE (WRVU 41.32) performed by Chun Wiley MD at [facility] MA[facility] Social History: Home set-up: [...] with concern for ACS and taken to label stamper. No intervention was required, and after label stamper patient was found to have RIGHT gaze [...] outlined inthis evaluation. Time IN / OUT: [id number] Total Minutes, Physical Therapy: 29 Billing Code: mod complexity eval Beronica Marte PT, DPT, NCS Pager: [phone] Physical Therapy Inpatient Rehabilitation Department * Raquel Mims, OT - 02/26/2024 11:12 AM EDT Occupational [...] Earlier today, he was taken to the label stamper, though no intervention required. After procedure, patient [...] ANGIOPLASTY WITH STENT PLACEMENT 1997 PR[facility] CATH PLVA LEFT HEART CATH & ARTS W/INJ & ANGIO IMG S&I N/A 05/17/2023 CORONARY ANGIOGRAPHY; W [facility],POSSIBLE PCI (WRVU 5.6) performed by Avani Danielle MD at [facility] CATH[facility] PRG CATH PLVA LEFT HEART CATH & ARTS W/INJ & ANGIO IMG S&I N/A 06/26/2023 CORONARY ANGIOGRAPHY; [facility],POSSIBLE PCI (WRVU 5.6) performed by Avani Danielle MD at [facility] CATH[facility] PRO CABG, ARTERIAL, SINGLE Left 06/13/2020 @CABG, USING ARTERIAL GRAFT;SINGLE ARTERIAL GRAFT (WRVU 33.75) performed by Chun Wiley MD at [facility] MA[facility] OR PRO CABG, ARTERY-VEIN, TWO N/A 06/13/2020 @CABG, TWO VENOUS GRAFTS & ARTERIAL GRAFT (WRVU 7.93) performed by Chun Wiley MD at [facility] MA[facility] OR PRO ENDOSCOPY W/VIDEO-ASST VEIN HARVEST, CABG Right 06/13/2020 ENDOSCOPIC HARVEST VEIN(S) FOR CABG (WRVU 0.31) performed by Chun Wiley MD at [facility] MAIN OR PRO PERC TRLUML CORONARY STENT W/ANGIO ADDL ART/BRANCH N/A 06/26/2023 STENT PLACEMENT-EACH ADDITIONAL BRANCH OF A MAJOR CORONARY ARTERY (WRVU *) performed by Avani Danielle MD at [facility] CATH [facility] PRO PERC TRLUML CORONARY STENT W/ANGIO ONE ART/BRANCH N/A 06/26/2023 STENT PLACEMENT-SINGLE MAJOR CORONARY ARTERY OR BRANCH (WRVU 10.96) performed by Avani Danielle MD at [facility] CATH [facility] PRO REPLACEMENT PROSTHETIC AORTIC VALVE OPEN W CARDIOPULMONARY BYPASS HOMOGRF/STENT N/A 06/13/2020 @REPLACE AORTIC VALVE, OPEN, W\CPB, W\PROSTHETIC VALVE (WRVU 41.32) performed by Chun Wiley MD at [facility] MA[facility] Social History: Home set-up: [...] intensive acute rehab with OT, PT, and SHEET ROCK TAPER HELPER to maximize independence and safety. Pt would [...] for this consult. Shahida Mims OT Pager: [phone] * Rachel Saenz, JULIO - 02/26/2024 9:59 [...] Earlier today, he was taken to the label stamper, though no intervention required. After procedure, patient noted to have RIGHT gaze preference, dysarthria, left tongue deviation, and LEFT hemibody weakness. Transferred to NCCU s/p TPA. Prior Level of Swallow Function: WNL Subjective: Alert, sitting up in bed finishing regular breakfast tray. present and supportive.Pt denies having any further speech or swallowing issues this AM. My speech is fine, I'm just Maltese. Objective: Pt seen for evaluation today. Pain: Patient in no acute observed discomfort. Respiratory Status: Room air saturating at 98%. Vision: Functional for evaluation, not formally assessed Hearing: Functional for evaluation Current Diet: Daily Healthy Menu Choices/Cardiac diet ([facility]-Diet) 60/60/75 CHO counting [...] Bolus Presentation(s) Tested Comments Thin liquids x Dubach thick liquids Honey thick liquids Pureed solids [...] Patient, Family educated on role of the SHEET ROCK TAPER HELPER and findings and plan of care. Patient status, treatment and swallow recommendations were discussed with nursing. Assessment: Pt w/ reported visual disturbance, facial weakness, dysarthria and hemiparesis on 02/25/24 s/p label stamper. TPA given. This AM pt's oral motor [...] aspiration pneumonia Do not anticipate need from SHEET ROCK TAPER HELPER services in discharge location. Speech Therapy Goals: (To be met by discharge) Pt will maintain hydration / nutrition with optimal safety and efficiency. NEW Monitor for further acute changes in speech or swallow during hospitalization NEW Plan: Therapy Frequency (SHEET ROCK TAPER HELPER Eval): 1-3 times/wk Pt./family are in agreement with treatment plan. Total Minutes (Speech Language Pathology): 20 Thank you for this consult with this patient. Please feel free to page me with any questions or concerns. Rachel Saenz MA, [facility]-SHEET ROCK TAPER HELPER Pager: [phone] Speech-Language Pathology Inpatient Rehabilitation Medicine * Yaya Hunter MD - 02/26/2024 7:34 AM EDT Images from the original note were not included. VASCULAR NEUROLOGY PROGRESS NOTE Admit Date 02/23/2024 Responsible Attending: Arti Griffin MD Primary Provider: RASHEL Do [phone] Hospital Day: Hospital Day: 4 Patient ID [...] Earlier today, he was taken to the label stamper, though no intervention required. After procedure, patient [...] 168 hours. No results for input(s): PHART, KST2PRY, PO2ART, JON5JQY in the last 168 hours. Recent Labs [...] hemiparesis found to have acute distal R PLASTIC TOP ASSEMBLER occlusion now in the setting of severe R ICA stenosis s/p tPA. 02/26/24 Patient remains neurologically stable. Etiology possibly due to hypotension/hypoperfusion during cardiac cath from right ICA stenosis versus symptomatic ICA stenosis. Continue DAPT with aspirin and plavix and high intensity statin and Zetia. Patient is also pending PT/OT evaluation at this time. 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 Reviewed imaging including the PLASTIC TOP ASSEMBLER occlusion. Discussed with Cardiology Cont with DAPT [...] Orders Diet Daily Healthy Menu Choices/Cardiac diet ([facility]-Diet) 60/60/75 CHO counting [...] encounter: 73 kg (160 lb 15 oz). [place]ard Body Weight (IBW) (kg): 67.27 Usual Body [...] deficit noted at that time Posted for [facility] today Post procedure developed Left sided weakness, appeared confused, with right gaze preference, Strokealert was called CTB and CTA with severe PLASTIC TOP ASSEMBLER stenosis, Right ICA stenosis and Moderate-severe rightintradural [...] is alert. 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 Hold antiplatelet for 24 hours s/p tPA On rosuvastatin, ezetimibe, Entresto, Imdur, metoprolol at home Hold Entresto, Imdur, metoprolol Would continue rosuvastatin and acetamide but defer to neurology General Cardiology consultation for stress test timing in the setting of active stroke #Acute right-sided stroke? #R PLASTIC TOP ASSEMBLER occlusion # Severe right ICA occlusion # [...] diet Fariba Ramirez MD 02/24/2024 * Kimmy Mackey, RN - 02/24/2024 12:38 PM EDT Preparing [...] Arti Griffin MD Primary Provider: RASHEL Do [phone] Hospital Day: Hospital Day: 3 Patient ID [...] Earlier today, he was taken to the label stamper, though no intervention required. After procedure, patient [...] Out: 1810 [Urine:1810] Labs Recent Labs 02/25/2410502/24/24 13302/24/24 0302 02/23/242136 WBC 5.55 4.94 5.20 5.78 [...] 168 hours. No results for input(s): PHART, VHI7IWF, PO2ART, QOM8NPR in the last 168 hours. Recent Labs [...] hemiparesis found to have acute distal R PLASTIC TOP ASSEMBLER occlusion now in the setting of severe [...] nebs PRN #GI - - follow up SHEET ROCK TAPER HELPER recs - Daily Healthy Menu Choices/Cardiac diet ([facility]-Diet) 60/60/75 CHO counting [...] Please page Vascular Neurology with any questions, #[phone] Susanna Cm APRN [place] [address] Neurology Attending Attestation Patient accepted in transfer [...] Griffin MD Vascular Neurology * Marina Schmitz, ELECTRICIAN CRANE MAINTENANCE - 02/24/2024 1:37 PM EDT NEUROCRITICAL CARE [...] Earlier today, he was taken to the label stamper, though no intervention required. In recovery, pt started to have slurred speech and left hemiparesis, Stroke Alert called. NIHSS 16 (LOC 1, Gaze 1, VF 1, Face 1, LUE 3, LLE 3, Sensory 2, Dysarthria 1, Language 1). CT/CTA showed R PLASTIC TOP ASSEMBLER occlusion and severe R ICA stenosis; decision [...] Date CORONARY ANGIOPLASTY WITH STENT PLACEMENT 1997 [facility] CATH [facility] LEFT HEART CATH & ARTS W/INJ & ANGIO IMG S&I N/A 05/17/2023 CORONARY ANGIOGRAPHY; W [facility],POSSIBLE PCI (WRVU 5.6) performed by Avani Danielle MD at [facility]ATH[facility] LAG CATH [facility] LEFT HEART CATH & ARTS W/INJ & ANGIO IMG S&I N/A 06/26/2023 CORONARY ANGIOGRAPHY; W [facility],POSSIBLE PCI (WRVU 5.6) performed by Avani Danielle MD at [facility] CATH[facility] PRO CABG, ARTERIAL, SINGLE Left 06/13/2020 @CABG, USING ARTERIAL GRAFT;SINGLE ARTERIAL GRAFT (WRVU 33.75) performed by Chun Wiley MD at [facility] MAIN OR PRO CABG, ARTERY-VEIN, TWO N/A 06/13/2020 @CABG, TWO VENOUS GRAFTS & ARTERIAL GRAFT (WRVU 7.93) performed by Chun Wiley MD at [facility] MAIN OR PRO ENDOSCOPY W/VIDEO-ASST VEIN HARVEST, CABG Right 06/13/2020 ENDOSCOPIC HARVEST VEIN(S) FOR CABG (WRVU 0.31) performed by Chun Wiley MD at [facility] MAIN OR PRO PERC TRLUML CORONARY STENT W/ANGIO ADDL ART/BRANCH N/A 06/26/2023 STENT PLACEMENT-EACH ADDITIONAL BRANCH OF A MAJOR CORONARY ARTERY (WRVU *) performed by Avani Danielle MD at [facility] CATH [facility]S PRO PERC TRLUML CORONARY STENT W/ANGIO ONE ART/BRANCH N/A 06/26/2023 STENT PLACEMENT-SINGLE MAJOR CORONARY ARTERY OR BRANCH (WRVU 10.96) performed by Avani Danielle MD at [facility] CATH [facility] PRO REPLACEMENT PROSTHETIC AORTIC VALVE OPEN W CARDIOPULMONARY BYPASS HOMOGRF/STENT N/A 06/13/2020 @REPLACE AORTIC VALVE, OPEN, W\CPB, W\PROSTHETIC VALVE (WRVU 41.32) performed by Chun Wiley MD at [facility] MAIN OR Social History Tobacco Use [...] Head/Neck Multiphase (Thrombectomy Protocol) Impression 1. Right PLASTIC TOP ASSEMBLER occlusion (distal P2 segment). 2. Severe right [...] QTC Calculated (Bezet) 439 ms Calculated P [place] 59 degrees Calculated R [place] -8 degrees Calculated T [place] 0 degrees INTERPRETATION Normal sinus rhythm Possible [...] inattention CEREBELLUM: no nystagmus GROIN SITE: R OPTICAL DESIGN ENGINEER site still bleeding despite femostop NIH [...] hemiparesis found to have acute distal R PLASTIC TOP ASSEMBLER occlusion now in the setting ofsevere R ICA stenosis s/p tPA. # Neuro- - neuro checks, VS as per thrombectomy protocol x 24h - HOB > 30 deg - obtain MRI brain wo to eval stroke burden - NCHCT 24h post-tPA to evaluate for any hemorrhage - PT/OT eval and treat - femostop to R OPTICAL DESIGN ENGINEER site per protocol # CV - [...] 06/2023, niddm2, HTN, HLD who presented to [facility] with chest pressure and lightheadeness and has been transferred to [facility] for further management. [...] CABG. He went to the ED at [facility]. At [facility], by the time the ED physician interviewed [...] started on heparin gtt and transferred to [facility]. On arrival at [facility], the pateint is chest pain free. His vitals are stable. Family hx: Father of [place] in his 40s. Social: lives with . [...] ANGIOPLASTY WITH STENT PLACEMENT 1997 PR[facility] CATH PLVA LEFT HEART CATH & ARTS W/INJ & ANGIO IMG S&I N/A 05/17/2023 CORONARY ANGIOGRAPHY; W [facility],POSSIBLE PCI (WRVU 5.6) performed by Avani Danielle MD at [facility] CATH[facility] PRG CATH PLVA LEFT HEART CATH & ARTS W/INJ & ANGIO IMG S&I N/A 06/26/2023 CORONARY ANGIOGRAPHY; W [facility],POSSIBLE PCI (WRVU 5.6) performed by Avani Danielle MD at [facility] CATH[facility] PRO CABG, ARTERIAL, SINGLE Left 06/13/2020 @CABG, USING ARTERIAL GRAFT;SINGLE ARTERIAL GRAFT (WRVU 33.75) performed by Chun Wiley MD at [facility] MAIN OR PRO CABG, ARTERY-VEIN, TWO N/A 06/13/2020 @CABG, TWO VENOUS GRAFTS & ARTERIAL GRAFT (WRVU 7.93) performed by Chun Wiley MD at [facility] MA[facility] OR PRO ENDOSCOPY W/VIDEO-ASST VEIN HARVEST, CABG Right 06/13/2020 ENDOSCOPIC HARVEST VEIN(S) FOR CABG (WRVU 0.31) performed by Chun Wiley MD at [facility] MAIN OR PRO PERC TRLUML CORONARY STENT W/ANGIO ADDL ART/BRANCH N/A 06/26/2023 STENT PLACEMENT-EACH ADDITIONAL BRANCH OF A MAJOR CORONARY ARTERY (WRVU *) performed by Avani Danielle MD at [facility] CATH LABS PRO PERC TRLUML CORONARY STENT W/ANGIO ONE ART/BRANCH N/A 06/26/2023 STENT PLACEMENT-SINGLE MAJOR CORONARY ARTERY OR BRANCH (WRVU 10.96) performed by Avani Danielle MD at [facility] CATH [facility]S PRO REPLACEMENT PROSTHETIC AORTIC VALVE OPEN W CARDIOPULMONARY BYPASS HOMOGRF/STENT N/A 06/13/2020 @REPLACE AORTIC VALVE, OPEN, W\CPB, W\PROSTHETIC VALVE (WRVU 41.32) performed by Chun Wiley MD at [facility] MA[facility] OR Significant Family History: No [...] present. Extremities: No lower ext edema. Skin: [place] and warm. Neurologic: Awake, alert, oriented x [...] 06/2023, niddm2, HTN, HLD who presented to [facility] with chest pressure and lightheadeness and has been transferred to [facility] for further management. [...] if hypotensive / cardiogenic shock / inferior [place] / sildenafil within past 24 hours) - [...] PM EDTAssociated Order(s): EEG CONTINUOUS MONITORING INPATIENT [facility] Department of Neurology Inpatient Continuous Video EEG Report Name of the Patient: Johnson Tobar Date of : 1950 Patient Location: [facility] Date of Service: 02/24/2024 Referring [...] Earlier today, he was taken to the label stamper, though no intervention required. In recovery, pt [...] EKG. Video was recorded during the session. INDEPENDENT CONSULTANT'S REPORT: Performed by: AT At the onset [...] MD PGY-6 Clinical Instructor - Epilepsy Fellow [facility] Epilepsy Program Department of Neurology 02/25/2024 [...] & Follow-up Care: Contact information for follow-up [address] [address] Transportation: family or friend will provide Wheelchair [...] through: Primary Insurance: [employer] MANAGED MEDICARE Payor: P MANAGED MEDICARE / Plan: [employer] MANAGED MEDICARE [...] to: discuss discharge planning needs. provide the [facility], Office of Care Management letter from the Correctional Officer pertaining to rehab referrals. provide a letter describing our affiliations within the [facility] and educate about their right to choose where referrals are sent. provide the CMS Star Quality Rating handout. review the different levels of rehab including SNF, swing, and acute. provide a list of facilities within their preferred geographic area. request that they provide at least three choices for referral. They have requested referrals to: [facility] Acute Rehabilitation and Sub-Acute (Swing) Rehab Levels of Care [address] [place] [address] Does patient have COVID vaccine card: No Note routed to a Caustic Pump Operator who will communicate referrals to facilities and provide any required information. Transportation: TBD Barriers to discharge: None Plan going forward: Met with pt and spouse, they live in [place] and wish to go to [facility] A rehabif possible. Referrals placed. Care Management [...] Care Goal: Plan of Care Review 02/26/2024 1045 by Lili Tineo RN Outcome: Ongoing (Interventions Implemented as Appropriate) 02/26/2024 1040 by Lili Tineo RN Outcome: Ongoing (Interventions Implemented as Appropriate) Goal: Patient-Specific Goal (Individualized) 02/26/2024 1045 by Lili Tineo RN Outcome: [...] Absence of Fall and Fall-Related Injury 02/26/2024 1045 by Lili Tineo RN Outcome: [...] as Appropriate) * Consult Note - Byron Giarldo MD - 02/25/2024 1:14 PM EDT There [...] arrived to NCCU s/p stroke alert/stroke in label stamper; patient received TPA, see life safety note [...] Assessment: Stroke Alert called at 12:43 in Search Marketing Coordinator, Anesthesia had given Versed 1mg IV and [...] at bedside and agreed. TPA bolus began [id number] and TPA infusion started at 1421. Vitals [...] Earlier today, he was taken to the label stamper, though no intervention required. After procedure, patient [...] In: - Out: 400 [Urine:400] Recent Labs 02/24/2430102/23/24 2137 WBC 5.20 5.78 HGB 11.3* 11.7* HCT 33.2* 34.5* PLATELET 151 158 NEUTROABS 3.74 4.24 Recent Labs 02/24/2430102/23/24 2137 NA 131* 129* K 4.0 4.0 CL 96* 94* CO2 19* 20* BUN 12 14 CREATININE 0.95 1.00 GLUCOSE 88 126 Recent Labs 02/24/2430102/23/24 2137 CALCIUM 9.7 9.6 MAGNESIUM 0.44* 0.43* No results for input(s): AST, ALT, ALKPHOS, BILITOT, BILIDIR, LDH in the last 168 hours. No results for input(s): TROPONINT, CK in the last 168 hours. No results for input(s): PHART, BKQ6PWU, PO2ART, NUB6NRK in the last 168 hours. No results for input(s): INR in the last 72 hours. Lipid Panel Recent Labs 02/24/24301 HA1C 8.3* Diagnostic Tests and Imaging: CTA Multiphase 02/24/2024 IMPRESSION 1. Right PLASTIC TOP ASSEMBLER occlusion (distal P2 segment). 2. Severe right [...] concerning for acute stroke. CTA demonstrated right PLASTIC TOP ASSEMBLER occlusion, severe right ICA origin stenosis, and [...] hA1C -Tele Please page Vascular Neurology at #[phone] with any questions. Susanna Cm APRN [place] [address] Neurology Attending Attestation I evaluated the patient [...] 06/2023, niddm2, HTN, HLD who presented to [facility] with chest pressure and lightheadeness and [facility]. Last COVID test: Lab Results Component Value Date COVID19 Not Detected 06/10/2020 Present on Admission: NSTEMI (non-ST elevated myocardial infarction) Daily Update: 02/23: [facility] today and d/c tomorrow or next day Surgery: 02/23: [facility] today Hospitalizations Within the Past 30 Days: no previous admission in last 30 days Patient receiving hospital care under Inpatient status. Admission order reviewed. Health/Prescription Coverage: Primary Insurance: [employer] MANAGED MEDICARE Payor: [employer] MANAGED MEDICARE / Plan: [employer] MANAGED MEDICARE / Product Type: *No Product type* / Secondary Insurance: N/A ; Prescription Coverage: Yes Preferred Pharmacy: [id number] - [place], [place] - [address] [place] [address] [address] [facility] [id number] Advance Care Planning: Attempt Cardiopulmonary Resuscitation - Inpatient <no information> -Advanced Directive: No, need to discuss (SDM:Emili Tobar (Spouse)) Current Functional Ability: Assistive Person Functional Status Prior to Admission: Independent Home Environment: Others in the home: spouse. Current Living Arrangements: home/apartment/condo. Accessibility Concerns:Lives with spouse No DME 2 levels to home 4 EARLE Bed upstairs Bath downstairs. Current DME: none [address] [place] [address] [address] [place] [address] Social & Family Supports: All names listed below confirmed with patient as current and correct Extended Emergency Contact Information Primary Emergency Contact: Emili Tobar Address: [address] [place] [address] Mobile Relation: Spouse Secondary Emergency Contact: Ilda [...] via car when medically ready. Registered Nurse Block Operator / Psychiatry Instructor will continue to follow patient???s progress and remain available if situation changes for coordination of care, psychosocial support and/or discharge planning. Office of Care Management Phillip Bernabe RN RN/CM - Cellphone: [phone] Pager: [phone] Covering Service RN/CM documented in this encounter Plan of Treatment Upcoming Encounters Date Type Department Care Team (Late st Contact Info) Description 08/27/2024 2:30 PM EST [place] [address] Susanna Cm APRN [facility] [place] [address] Scheduled Referrals Name Type Priority Associated Diagnoses [...] type, unspecified whether angina present, unspecified whether [place] or transplanted heart POC, GLUCOSE Routine 02/24/2024 [...] type, unspecified whether angina present, unspecified whether [place] or transplanted heart POC, GLUCOSE Routine 02/23/2024 [...] - 199 mg/dL 03/02/2024 12:13 PM EDT [facility] Comment:Supplemental ranges: <140 mg/dL before meals <180 mg/dL all other times of the day. Blood CAPILLARY BLOOD / Unknown 03/02/2024 12:13 PM EDT 03/02/2024 12:14 PM EDT Kd Huggins MD POINT OF CARE TEST ORDERABLES [facility] [place] [address] * POC, GLUCOSE (03/02/2024 7:19 AM EDT) Glucometer, POC 156 65 - 199 mg/dL 03/02/2024 7:19 AM EDT [facility] Comment:Supplemental ranges: <140 mg/dL before meals <180 mg/dL all other times of the day. Blood CAPILLARY BLOOD / Unknown 03/02/2024 7:19 AM EDT 03/02/2024 7:19 AM EDT Kd Huggins MD POINT OF CARE TEST ORDERABLES [facility] [place] [address] * (ABNORMAL) CBC (with Diff) (03/02/2024 5:58 AM EDT) White Blood Cell 5.41 4.00 - 9.50 x10(3)/mc L 03/02/2024 6:35 AM EDT [facility] Red Blood Cell 3.61(L) 4.58 - 5.54 x10(6)/mc L 03/02/2024 6:35 AM EDT [facility] Hemoglobin 10.0(L) 13.7 - 16.5 g/dL 03/02/2024 6:35 AM EDT [facility] Hematocrit 28.9(L) 40.5 - 48.5 % 03/02/2024 6:35 AM EDT [facility] Mean Cell Volume 80.1(L) 82.9 - 93.1 fL 03/02/2024 6:35 AM EDT [facility] Mean Cell Hemoglobin 27.7 27.5 - 32.1 pg 03/02/2024 6:35 AM EDT [facility] Mean Cell Hemoglobin Concentration 34.6 32.0 - 35.7 g/dL 03/02/2024 6:35 AM EDT [facility] Platelet 253 145 - 357 x10(3)/mc L 03/02/2024 6:35 AM EDT [facility] Mean Platelet Volume 10.1 7.6 - 12.9 fL 03/02/2024 6:35 AM EDT [facility] RDW Standard Deviation 44.9 36.0 - 45.0 fL 03/02/2024 6:35 AM EDT [facility] RDW coefficient of variation 15.3(H) 11.4 - 13.8 % 03/02/2024 6:35 AM [facility] NRBC% auto 0.0 % 03/02/2024 6:35 AM [facility] NRBC Absolute 0.00 0.00 - 0.00 x10(3)/mc L 03/02/2024 6:35 AM [facility] Neutrophil % 67.0 % 03/02/2024 6:35 AM [facility] Neutrophil Absolute (ANC) - Automated 3.62 1.70 - 6.10 x10(3)/mc L 03/02/2024 6:35 AM [facility] Lymph % 14.2 % 03/02/2024 6:35 AM [facility] Lymph Absolute 0.77(L) 0.90 - 3.20 x10(3)/mc L 03/02/2024 6:35 AM [facility] Monocyte % 14.4 % 03/02/2024 6:35 AM [facility] Monocyte Absolute 0.78 0.30 - 0.90 x10(3)/mc L 03/02/2024 6:35 AM [facility] Eos % 2.8 % 03/02/2024 6:35 AM [facility] Eos Absolute 0.15 0.00 - 0.40 x10(3)/mc L 03/02/2024 6:35 AM [facility] Basophil % 0.9 % 03/02/2024 6:35 AM [facility] Baso Absolute 0.05 0.00 - 0.10 x10(3)/mc L 03/02/2024 6:35 AM [facility] Immature Gran % 0.7 % 6:35 AM [facility] Immature Gran Absolute 0.04 0.00 - 0.04 x10(3)/mc L 03/02/2024 6:35 AM [facility] Blood VENOUS BLOOD SPECIMEN / Unknown IP Care Team Draw / Unknown 03/02/2024 5:58 AM EDT 03/02/2024 6:20 AM EDT Kd Huggins MD HEMATOLOGY ORDERAB LES [facility] [place] [address] * (ABNORMAL) Basic Metabolic Panel (03/02/2024 5:58 AM EDT) Glucose 159 65 - 199 mg/dL 03/02/2024 6:55 AM EDT [facility] Comment:Glucose Concentratio n >=200 mg/dL plus symptoms is consistent with Diabetes Mellitus. Blood Urea Nitrogen 12 10 - 20 mg/dL 03/02/2024 6:55 AM EDT [facility] Creatinine 0.96 0.80 - 1.50 mg/dL 03/02[facility] Sodium 127(L) 135 - 145 mMol/L 03/02/2024 6:55 AM T [facility] Potassium 4.4 3.5 - 5.0 mMol/L 03/02/2024 6:55 AM [facility] Chloride 96(L) 98 - 107 mMol/L 03/02/2024 6:55 AM [facility] Carbon Dioxide 19(L) 22 - 31 mMol/L 03/02/2024 6:55 AM [facility] Anion Gap 12 5 - 15 mMol/L 03/02/2024 6:55 AM T [facility] Calcium 9.5 8.5 - 10.5 mg/dL 03/02/2024 6:55 AM [facility] Est Glomerular Filtration Rate - Male 83 mL/min/1. 73 m?? 03/02/2024 6:55 AM [facility] Comment: This patient's estimated GFR [...] APRN CHEMISTRY ORDERABLE S Performing Organization Address City/[facility]/ZIP Co de Phone Number [facility] [place] [address] * POC, GLUCOSE (03/01/2024 8:24 PM EDT) Glucometer, POC 185 65 - 199 mg/dL 03/01/2024 8:24 PM EDT [facility] Comment:Supplemental ranges: <140 mg/dL before meals <180 mg/dL all other times of the day. Blood CAPILLARY BLOOD / Unknown 03/01/2024 8:24 PM EDT 03/01/2024 8:25 PM EDT Kd Huggins MD POINT OF CARE TEST ORDERABLES Performing Organization Address City/[facility]/ZIP Co de Phone Number [facility] [place] [address] * POC, GLUCOSE (03/01/2024 4:27 PM EDT) Glucometer, POC 143 65 - 199 mg/dL 03/01/2024 4:27 PM EDT [facility] Comment:Supplemental ranges: <140 mg/dL before meals <180 mg/dL all other times of the day. Blood CAPILLARY BLOOD / Unknown 03/01/2024 4:27 PM EDT 03/01/2024 4:27 PM EDT Kd Huggins MD POINT OF CARE TEST ORDERABLES Performing Organization Address [facility] Co de Phone Number [facility] [place] [address] * POC, GLUCOSE (03/01/2024 11:33 AM EDT) Glucometer, POC 187 65 - 199 mg/dL 03/01/2024 11:33 AM EDT [facility] Comment:Supplemental ranges: <140 mg/dL before meals <180 mg/dL all other times of the day. Blood CAPILLARY BLOOD / Unknown 03/01/2024 11:33 AM EDT 03/01/2024 11:33 AM EDT Kd Huggins MD POINT OF CARE TEST ORDERABLES Performing Organization Address [facility] Co de Phone Number [facility] [place] [address] * POC, GLUCOSE (03/01/2024 7:11 AM EDT) Glucometer, POC 164 65 - 199 mg/dL 03/01/2024 7:11 AM EDT [facility] Comment:Supplemental ranges: <140 mg/dL before meals <180 mg/dL all other times of the day. Blood CAPILLARY BLOOD / Unknown 03/01/2024 7:11 AM EDT 03/01/2024 7:11 AM EDT Kd Huggins MD POINT OF CARE TEST ORDERABLES Performing Organization Address City/[facility] Co de Phone Number [facility] [place] [address] * (ABNORMAL) Basic Metabolic Panel (03/01/2024 5:36 AM EDT) Glucose 150 65 - 199 mg/dL 03/01/2024 6:26 AM EDT [facility] Comment:Glucose Concentratio n >=200 mg/dL plus symptoms is consistent with Diabetes Mellitus. Blood Urea Nitrogen 13 10 - 20 mg/dL 03/01/2024 6:26 AM [facility] Creatinine 0.88 0.80 - 1.50 mg/dL 03/01/2024 6:26 AM [facility] Sodium 128(L) 135 - 145 mMol/L 03/01/2024 6:26 AM [facility] Potassium 4.5 3.5 - 5.0 mMol/L 03/01/2024 6:26 AM [facility] Chloride 95(L) 98 - 107 mMol/L 03/01/2024 6:26 AM [facility] Carbon Dioxide 19(L) 22 - 31 mMol/L 03/01/2024 6:26 AM [facility] Anion Gap 14 5 - 15 mMol/L 03/01/2024 6:26 AM [facility] Calcium 9.6 8.5 - 10.5 mg/dL 03/01/2024 6:26 AM [facility] Est Glomerular Filtration Rate - Male 90 mL/min/1. 73 m?? 03/01/2024 6:26 AM [facility] Comment: This patient's estimated GFR [...] AM EDT 03/01/2024 5:51 AM EDT Susanna mC [employer] CHEMISTRY ORDERABLE S [facility] [place] [address] * POC, GLUCOSE (02/29/2024 8:32 PM EDT) Glucometer, POC 171 65 - 199 mg/dL 02/29/2024 8:33 PM EDT [facility] Comment:Supplemental ranges: <140 mg/dL before meals <180 mg/dL all other times of the day. Blood CAPILLARY BLOOD / Unknown 02/29/2024 8:32 PM EDT 02/29/2024 8:33 PM EDT Kd Huggins MD POINT OF CARE TEST ORDERABLES Performing Organization Address City/[facility]/ZIP Co de Phone Number [facility] [place] [address] * POC, GLUCOSE (02/29/2024 4:26 PM EDT) Glucometer, POC 105 65 - 199 mg/dL 02/29/2024 4:26 PM EDT [facility] Comment:Supplemental ranges: <140 mg/dL before meals <180 mg/dL all other times of the day. Blood CAPILLARY BLOOD / Unknown 02/29/2024 4:26 PM EDT 02/29/2024 4:26 PM EDT Kd Huggins MD POINT OF CARE TEST ORDERABLES [facility] [place] [address] * (ABNORMAL) POC, GLUCOSE (02/29/2024 11:51 AM EDT) Glucometer, POC 232(H) 65 - 199 mg/dL 02/29/2024 11:51 AM EDT [facility] Comment:Supplemental ranges: <140 mg/dL before meals <180 mg/dL all other times of the day. Blood CAPILLARY BLOOD / Unknown 02/29/2024 11:51 AM EDT 02/29/2024 11:51 AM EDT dK Huggins MD POINT OF CARE TEST ORDERABLES Performing Organization Address City/[facility]/ZIP Co de Phone Number [facility] [place] [address] * (ABNORMAL) POC, GLUCOSE (02/29/2024 11:36 AM EDT) Glucometer, POC 259(H) 65 - 199 mg/dL 02/29/2024 11:36 AM EDT [facility] Comment:Supplemental ranges: <140 mg/dL before meals <180 mg/dL all other times of the day. Blood CAPILLARY BLOOD / Unknown 02/29/2024 11:36 AM EDT 02/29/2024 11:36 AM EDT Kd Huggins MD POINT OF CARE TEST ORDERABLES Performing Organization Address [facility] Co de Phone Number [facility] [place] [address] * POC, GLUCOSE (02/29/2024 7:31 AM EDT) Glucometer, POC 148 65 - 199 mg/dL 02/29/2024 7:32 AM EDT [facility] Comment:Supplemental ranges: <140 mg/dL before meals <180 mg/dL all other times of the day. Blood CAPILLARY BLOOD / Unknown 02/29/2024 7:31 AM EDT 02/29/2024 7:32 AM EDT Kd Huggins MD POINT OF CARE TEST ORDERABLES [facility] [place] [address] * (ABNORMAL) Basic Metabolic Panel (02/29/2024 5:52 AM EDT) Glucose 152 65 - 199 mg/dL 02/29/2024 7:01 AM EDT [facility] Comment:Glucose Concentratio n >=200 mg/dL plus symptoms is consistent with Diabetes Mellitus. Blood Urea Nitrogen 15 10 - 20 mg/dL 02/29/2024 7:01 AM [facility] Creatinine 0.95 0.80 - 1.50 mg/dL 02/29/2024 7:01 AM [facility] Sodium 127(L) 135 - 145 mMol/L 02/29/2024 7:01 AM [facility] Potassium 4.1 3.5 - 5.0 mMol/L 02/29/2024 7:01 AM [facility] Chloride 93(L) 98 - 107 mMol/L 02/29/2024 7:01 AM [facility] Carbon Dioxide 20(L) 22 - 31 mMol/L 02/29/2024 7:01 AM [facility] Anion Gap 14 5 - 15 mMol/L 02/29/2024 7:01 AM [facility] Calcium 9.3 8.5 - 10.5 mg/dL 02/29/2024 7:01 AM [facility] Est Glomerular Filtration Rate - Male 84 mL/min/1. 73 m?? 02/29/2024 7:01 AM [facility] Comment: This patient's estimated GFR [...] EDT 02/29/2024 6:26 AM EDT Susanna Cm [employer]TE[employer] CHEMISTRY ORDERABLE S [facility] [place] [address] * POC, GLUCOSE (02/28/2024 9:22 PM EDT) Glucometer, POC 189 65 - 199 mg/dL 02/28/2024 9:22 PM EDT [facility] Comment:Supplemental ranges: <140 mg/dL before meals <180 mg/dL all other times of the day. Blood CAPILLARY BLOOD / Unknown 02/28/2024 9:22 PM EDT 02/28/2024 9:22 PM EDT Kd Huggins MD POINT OF CARE TEST ORDERABLES Performing Organization Address [facility] Co de Phone Number [facility] [place] [address] * Urinalysis Microscopic Exam (02/28/2024 8:58 PM EDT) Bacteria, Urine None None /HPF 9:21 PM EDT [facility] RBC, Urine 3 0 - 3 /HPF 02/28/2024 9:21 PM EDT [facility] WBC, Urine 1 0 - 3 /HPF 02/28/2024 9:21 PM EDT [facility] Squamous Epithelial Cells, Urine 0 0 - 5 /HPF 02/28/2024 9:21 PM EDT [facility] Hyaline Casts, Urine 0 0 - 2 /LPF 02/28/2024 9:21 PM EDT [facility] Urine URINE SPECIMEN / Unknown Non Blood Collection / Unknown 02/28/2024 8:58 PM EDT 02/28/2024 9:08 PM EDT Kd Huggins MD URINE ORDERABLES Performing Organization Address City/[facility]/ZIP Co de Phone Number [facility] [place] [address] * (ABNORMAL) Urinalysis Dipstick (02/28/2024 8:58 PM EDT) Glucose, Urine Dipstick Negative Negative 02/28/2024 9:21 PM [facility] Protein, Urine Dipstick 100 mg/dL(A) Negative 02/28/2024 9:21 PM [facility] Bilirubin, Urine Dipstick Negative Negative 02/28/2024 9:21 PM [facility] Comment:Clinical correlation required for positive Urine Bilirubin results as false positive may occur with some drugs and drug related products. If a false positive is suspected a serum total bilirubin should be considered if clinically indicated. Urobilinogen, Urine Dipstick Normal Normal, 0.2 mg/dL, 1.0 mg/dL 02/28/2024 9:21 PM [facility] pH, Urine (dipstick) 6.0 5.0 - 8.0 02/28/2024 9:21 PM [facility] Blood, Urine Dipstick Trace(A) Negative 02/28/2024 9:21 PM [facility] Ketone, Urine Dipstick Negative Negative 02/28/2024 9:21 PM [facility] Nitrite, Urine Dipstick Negative Negative 02/28/2024 9:21 PM [facility] Leukocytes, Urine Dipstick Negative Negative 02/28/2024 9:21 PM [facility] Specific [place] Urine Automated 1.013 1.005 - 1.030 02/28/2024 9:21 PM [facility] Appearance, Urine Dipstick Clear Clear 02/28/2024 9:21 PM [facility] Color, Urine Dipstick Yellow Yellow, Dark Yellow 02/28/2024 9:21 PM [facility] Urine URINE SPECIMEN / Unknown Non Blood Collection / Unknown 02/28/2024 8:58 PM EDT 02/28/2024 9:08 PM EDT Kd Huggins MD URINE ORDERABLES Performing Organization Address City/[facility]/ZIP Co de Phone Number [facility] [place] [address] * Electrolytes, urine, random (02/28/2024 8:58 PM EDT) Sodium, Urine <20 mMol/L 02/28/2024 10:09 PM EDT [facility] Potassium, Urine 17 mMol/L 02/28/2024 10:09 PM EDT [facility] Chloride, Urine <20 mMol/L 02/28/2024 10:09 PM EDT [facility] Urine URINE SPECIMEN / Unknown Non Blood Collection / Unknown 02/28/2024 8:58 PM EDT 02/28/2024 9:08 PM EDT Kd Huggins MD URINE ORDERABLES Performing Organization Address [facility] Co de Phone Number [facility] [place] [address] * Osmolality, urine, random (02/28/2024 8:58 PM EDT) Osmolality, Urine 314 50 - 1,200 mOsm/kg 02/28/2024 10:27 PM EDT [facility] Urine URINE SPECIMEN / Unknown Non Blood Collection / Unknown 02/28/2024 8:58 PM EDT 02/28/2024 9:08 PM EDT Kd Huggins MD URINE ORDERABLES Performing Organization Address City/[facility]/ZIP Co de Phone Number [facility] [place] [address] * (ABNORMAL) POC, GLUCOSE (02/28/2024 4:49 PM EDT) Glucometer, POC 220(H) 65 - 199 mg/dL 02/28/2024 4:49 PM EDT [facility] Comment:Supplemental ranges: <140 mg/dL before meals <180 mg/dL all other times of the day. Blood CAPILLARY BLOOD / Unknown 02/28/2024 4:49 PM EDT 02/28/2024 4:49 PM EDT Kd Huggins MD POINT OF CARE TEST ORDERABLES Performing Organization Address [facility] de Phone Number [facility] [place] [address] * (ABNORMAL) POC, GLUCOSE (02/28/2024 11:22 AM EDT) Glucometer, POC 219(H) 65 - 199 mg/dL 02/28/2024 11:22 AM EDT [facility] Comment:Supplemental ranges: <140 mg/dL before meals <180 mg/dL all other times of the day. Blood CAPILLARY BLOOD / Unknown 02/28/2024 11:22 AM EDT 02/28/2024 11:22 AM EDT Kd Huggins MD POINT OF CARE TEST ORDERABLES Performing Organization Address [facility] de Phone Number [facility] [place] [address] * XR Chest One View (02/28/2024 10:13 AM EDT) WORKSTATION ID [id number] DH RAD Anatomical Region Laterality Modality Chest [...] who have questions please contact the health care coordination manager that requested your imaging first. ? Narrative [...] patients who have questions please contactthe health care coordination manager that requested your imaging first. Kd Huggins MD IMG DX ORDERABLES * POC, GLUCOSE (02/28/2024 7:24 AM EDT) Glucometer, POC 162 65 - 199 mg/dL 02/28/2024 7:24 AM EDT [facility] Comment:Supplemental ranges: <140 mg/dL before meals <180 mg/dL all other times of the day. Blood CAPILLARY BLOOD / Unknown 02/28/2024 7:24 AM EDT 02/28/2024 7:24 AM EDT Kd Huggins MD POINT OF CARE TEST ORDERABLES Performing Organization Address [facility] Co de Phone Number [facility] [place] [address] * (ABNORMAL) Osmolality (02/28/2024 5:33 AM EDT) Osmolality 270(L) 275 - 295 mOsm/kg 02/28/2024 9:50 AM EDT [facility] Blood VENOUS BLOOD SPECIMEN / Unknown IP Care Team Draw / Unknown 02/28/2024 5:33 AM EDT 02/28/2024 5:54 AM EDT Kd Huggins MD CHEMISTRY ORDERABL ES Performing Organization Address [facility] de Phone Number [facility] [place] [address] * (ABNORMAL) Magnesium (02/28/2024 5:33 AM EDT) Magnesium 0.67(L) 0.69 - 1.07 mMol/L 02/28/2024 6:27 AM EDT [facility] Blood VENOUS BLOOD SPECIMEN / Unknown IP Care Team Draw / Unknown 02/28/2024 5:33 AM EDT 02/28/2024 5:54 AM EDT Susanna Cm APRN CHEMISTRY ORDERABLE S Performing Organization Address City/[facility]/ZIP Co de Phone Number [facility] [place] [address] * (ABNORMAL) CBC (with Diff) (02/28/2024 5:33 AM EDT) White Blood Cell 5.45 4.00 - 9.50 x10(3)/mc L 02/28/2024 6:03 AM EDT [facility] Red Blood Cell 3.82(L) 4.58 - 5.54 x10(6)/mc L 02/28/2024 6:03 AM EDT [facility] Hemoglobin 10.4(L) 13.7 - 16.5 g/dL 02/28/2024 6:03 AM EDT [facility] Hematocrit 31.0(L) 40.5 - 48.5 % 02/28/2024 6:03 AM EDT [facility] Mean Cell Volume 81.2(L) 82.9 - 93.1 fL 02/28/2024 6:03 AM EDT [facility] Mean Cell Hemoglobin 27.2(L) 27.5 - 32.1 pg 02/28/2024 6:03 AM EDT [facility] Mean Cell Hemoglobin Concentration 33.5 32.0 - 35.7 g/dL 02/28/2024 6:03 AM EDT [facility] Platelet 210 145 - 357 x10(3)/mc L 02/28/2024 6:03 AM EDT [facility] Mean Platelet Volume 10.2 7.6 - 12.9 fL 02/28/2024 6:03 AM EDT [facility] RDW Standard Deviation 45.5(H) 36.0 - 45.0 fL 02/28/2024 6:[facility] coefficient of variation 15.3(H) 11.4 - 13.8 % 02/28/2024 6:03 [facility] NRBC% auto 0.0 % 02/28/2024 6:03 AM EDT [facility] NRBC Absolute 0.00 0.00 - 0.00 x10(3)/mc L 02/28/2024 6:03 AM [facility] Neutrophil % 69.3 % 02/28/2024 6:03 AM [facility] Neutrophil Absolute (ANC) - Automated 3.78 1.70 - 6.10 x10(3)/mc L 02/28/2024 6:03 AM [facility] Lymph % 14.1 % 02/28/2024 6:03 AM [facility] Lymph Absolute 0.77(L) 0.90 - 3.20 x10(3)/mc L 02/28/2024 6:03 AM [facility] Monocyte % 11.6 % 02/28/2024 6:03 AM [facility] Monocyte Absolute 0.63 0.30 - 0.90 x10(3)/mc L 02/28/2024 6:03 AM [facility] Eos % 3.5 % 02/28/2024 6:03 AM [facility] Eos Absolute 0.19 0.00 - 0.40 x10(3)/mc L 02/28/2024 6:03 AM [facility] Basophil % 0.6 % 02/28/2024 6:03 AM [facility] Baso Absolute 0.03 0.00 - 0.10 x10(3)/mc L 02/28/2024 6:03 AM [facility] Immature Gran % 0.9 % 6:03 AM [facility] Immature Gran Absolute 0.05(H) 0.00 - 0.04 x10(3)/mc L 02/28/2024 6:03 AM [facility] Blood VENOUS BLOOD SPECIMEN / Unknown IP Care Team Draw / Unknown 02/28/2024 5:33 AM EDT 02/28/2024 5:54 AM EDT Susanna Cm [employer] ORDER[employer] ES [facility] [place] [address] * (ABNORMAL) Basic Metabolic Panel (02/28/2024 5:33 AM EDT) Glucose 175 65 - 199 mg/dL 02/28/2024 6:27 AM EDT [facility] Comment:Glucose Concentratio n >=200 mg/dL plus symptoms is consistent with Diabetes Mellitus. Blood Urea Nitrogen 15 10 - 20 mg/dL 02/28/2024 6:27 [facility] Creatinine 1.05 0.80 - 1.50 mg/dL 02/28/2024 6:27 AM [facility] Sodium 125(L) 135 - 145 mMol/L 02/28/2024 6:27 AM [facility] Potassium 4.1 3.5 - 5.0 mMol/L 02/28/2024 6:27 AM [facility] Chloride 93(L) 98 - 107 mMol/L 02/28/2024 6:27 AM [facility] Carbon Dioxide 21(L) 22 - 31 mMol/L 02/28/2024 6:27 AM [facility] Anion Gap 11 5 - 15 mMol/L 02/28/2024 6:27 AM [facility] Calcium 8.9 8.5 - 10.5 mg/dL 02/28/2024 6:27 AM [facility] Est Glomerular Filtration Rate - Male 74 mL/min/1. 73 m?? 02/28/2024 6:27 AM [facility] Comment: This patient's estimated GFR [...] EDT 02/28/2024 5:54 AM EDT Susanna Cm [employer] CHEMISTRY ORDERABLE S [facility] [place] [address] * (ABNORMAL) POC, GLUCOSE (02/27/2024 8:50 PM EDT) Glucometer, POC 225(H) 65 - 199 mg/dL 02/27/2024 8:50 PM EDT [facility] Comment:Supplemental ranges: <140 mg/dL before meals <180 mg/dL all other times of the day. Blood CAPILLARY BLOOD / Unknown 02/27/2024 8:50 PM EDT 02/27/2024 8:50 PM EDT Kd Huggins MD POINT OF CARE TEST ORDERABLES Performing Organization Address [facility]/ZIP Co de Phone Number [facility] [place] [address] * POC, GLUCOSE (02/27/2024 3:25 PM EDT) Glucometer, POC 192 65 - 199 mg/dL 02/27/2024 3:25 PM EDT [facility] Comment:Supplemental ranges: <140 mg/dL before meals <180 mg/dL all other times of the day. Blood CAPILLARY BLOOD / Unknown 02/27/2024 3:25 PM EDT 02/27/2024 3:25 PM EDT Kd Huggins MD POINT OF CARE TEST ORDERABLES [facility] [place] [address] * (ABNORMAL) POC, GLUCOSE (02/27/2024 11:09 AM EDT) Glucometer, POC 220(H) 65 - 199 mg/dL 02/27/2024 11:10 AM EDT [facility] Comment:Supplemental ranges: <140 mg/dL before meals <180 mg/dL all other times of the day. Blood CAPILLARY BLOOD / Unknown 02/27/2024 11:09 AM EDT 02/27/2024 11:10 AM EDT Kd Huggins MD POINT OF CARE TEST ORDERABLES Performing Organization Address City/[facility]/ZIP Co de Phone Number [facility] [place] [address] * POC, GLUCOSE (02/27/2024 7:25 AM EDT) Glucometer, POC 148 65 - 199 mg/dL 02/27/2024 7:25 AM EDT [facility] Comment:Supplemental ranges: <140 mg/dL before meals <180 mg/dL all other times of the day. Blood CAPILLARY BLOOD / Unknown 02/27/2024 7:25 AM EDT 02/27/2024 7:25 AM EDT Kd Huggins MD POINT OF CARE TEST ORDERABLES [facility] [place] [address] * (ABNORMAL) Osmolality (02/27/2024 6:30 AM EDT) Osmolality 270(L) 275 - 295 mOsm/kg 02/28/2024 10:06 AM EDT [facility] Blood VENOUS BLOOD SPECIMEN / Unknown IP Care Team Draw / Unknown 02/27/2024 6:30 AM EDT 02/27/2024 6:59 AM EDT Kd Huggins MD CHEMISTRY ORDERABL ES [facility] [place] [address] * (ABNORMAL) Magnesium (02/27/2024 6:30 AM EDT) [facility] Magnesium 0.63(L) 0.69 - 1.07 mMol/L 02/27/2024 7:43 AM EDT [facility] Blood VENOUS BLOOD SPECIMEN / Unknown IP Care Team Draw / Unknown 02/27/2024 6:30 AM EDT 02/27/2024 6:59 AM EDT Susanna Cm APRN CHEMISTRY ORDERABLE S Performing Organization Address City/[facility]/ZIP Co de Phone Number [facility] [place] [address] * (ABNORMAL) CBC (with Diff) (02/27/2024 6:30 AM EDT) [facility] White Blood Cell 5.78 4.00 - 9.50 x10(3)/mc L 02/27/2024 7:06 AM EDT [facility] Red Blood Cell 3.80(L) 4.58 - 5.54 x10(6)/mc L 02/27/2024 7:06 AM EDT [facility] Hemoglobin 10.5(L) 13.7 - 16.5 g/dL 02/27/2024 7:06 AM EDT [facility] Hematocrit 30.5(L) 40.5 - 48.5 % 02/27/2024 7:06 AM EDT [facility] Mean Cell Volume 80.3(L) 82.9 - 93.1 fL 02/27/2024 7:06 AM EDT [facility] Mean Cell Hemoglobin 27.6 27.5 - 32.1 pg 02/27/2024 7:06 AM EDT [facility] Mean Cell Hemoglobin Concentration 34.4 32.0 - 35.7 g/dL 02/27/2024 7:06 AM [facility] Platelet 179 145 - 357 x10(3)/mc L 02/27/2024 7:06 AM [facility] Mean Platelet Volume 10.5 7.6 - 12.9 fL 02/27/2024 7:06 AM [facility] RDW Standard Deviation 44.2 36.0 - 45.0 fL 02/27/2024 7:06 AM [facility] RDW coefficient of variation 15.1(H) 11.4 - 13.8 % 02/27/2024 7:06 AM [facility] NRBC% auto 0.0 % 02/27/2024 7:06 AM [facility] NRBC Absolute 0.00 0.00 - 0.00 x10(3)/mc L 02/27/2024 7:06 AM [facility] Neutrophil % 66.4 % 02/27/2024 7:06 AM [facility] Neutrophil Absolute (ANC) - Automated 3.84 1.70 - 6.10 x10(3)/mc L 02/27/2024 7:06 AM [facility] Lymph % 16.4 % 02/27/2024 7:06 AM [facility] Lymph Absolute 0.95 0.90 - 3.20 x10(3)/mc L 02/27/2024 7:06 AM [facility] Monocyte % 12.5 % 02/27/2024 7:06 AM [facility] Monocyte Absolute 0.72 0.30 - 0.90 x10(3)/mc L 02/27/2024 7:06 AM [facility] Eos % 3.1 % 02/27/2024 7:06 AM [facility] Eos Absolute 0.18 0.00 - 0.40 x10(3)/mc L 02/27/2024 7:06 AM [facility] Basophil % 0.9 % 02/27/2024 7:06 AM EDT [facility] Baso Absolute 0.05 0.00 - 0.10 x10(3)/mc L 02/27/2024 7:06 AM EDT [facility] Immature Gran % 0.7 % 7:06 AM EDT [facility] Immature Gran Absolute 0.04 0.00 - 0.04 x10(3)/mc L 02/27/2024 7:06 AM EDT [facility] Blood VENOUS BLOOD SPECIMEN / Unknown IP Care Team Draw / Unknown 02/27/2024 6:30 AM EDT 02/27/2024 6:59 AM EDT Susanna Cm [employer] HEMATOLOGY ORDERABL ES [facility] [place] [address] * (ABNORMAL) Basic Metabolic Panel (02/27/2024 6:30 AM EDT) Glucose 138 65 - 199 mg/dL 02/27/2024 7:43 AM [facility] Comment:Glucose Concentratio n >=200 mg/dL plus symptoms is consistent with Diabetes Mellitus. Blood Urea Nitrogen 11 10 - 20 mg/dL 02/27/2024 7:43 AM [facility] Creatinine 1.00 0.80 - 1.50 mg/dL 02/27/2024 7:43 AM EDT [facility] Sodium 128(L) 135 - 145 mMol/L 02/27/2024 [facility] Potassium 4.3 3.5 - 5.0 mMol/L 02/27/2024 7:43 [facility] Chloride 95(L) 98 - 107 mMol/L 02/27/2024 7:43 [facility] Carbon Dioxide 22 22 - 31 mMol/L 02/27/2024 7:43 AM EDT [facility] Anion Gap 11 5 - 15 mMol/L 02/27/2024 7:43 AM EDT [facility] Calcium 9.0 8.5 - 10.5 mg/dL 02/27/2024 7:43 AM EDT [facility] Est Glomerular Filtration Rate - Male 79 mL/min/1. 73 m?? 02/27/2024 7:43 AM EDT [facility] Comment: This patient's estimated [...] EDT Susanna Cm APRN CHEMISTRY ORDERABLE S [facility] [place] [address] * POC, GLUCOSE (02/26/2024 9:14 PM EDT) [facility] Signature Glucometer, POC 140 65 - 199 mg/dL 02/26/2024 9:15 PM EDT [facility] Comment:Supplemental ranges: <140 mg/dL before meals <180 mg/dL all other times of the day. Blood CAPILLARY BLOOD / Unknown 02/26/2024 9:14 PM EDT 02/26/2024 9:15 PM EDT Arti Griffin MD POINT OF CARE TEST ORDERABLES [facility] [place] [address] * POC, GLUCOSE (02/26/2024 5:00 PM EDT) Glucometer, POC 158 65 - 199 mg/dL 02/26/2024 5:00 PM EDT [facility] Comment:Supplemental ranges: <140 mg/dL before meals <180 mg/dL all other times of the day. Blood CAPILLARY BLOOD / Unknown 02/26/2024 5:00 PM EDT 02/26/2024 5:00 PM EDT Kd Huggins MD POINT OF CARE TEST ORDERABLES Performing Organization Address City/[facility]/ZIP Co de Phone Number [facility] [place] [address] * POC, GLUCOSE (02/26/2024 3:51 PM EDT) Glucometer, POC 187 65 - 199 mg/dL 02/26/2024 3:52 PM EDT [facility] Comment:Supplemental ranges: <140 mg/dL before meals <180 mg/dL all other times of the day. Blood CAPILLARY BLOOD / Unknown 02/26/2024 3:51 PM EDT 02/26/2024 3:52 PM EDT Kd Huggins MD POINT OF CARE TEST ORDERABLES [facility] [place] [address] * POC, GLUCOSE (02/26/2024 11:31 AM EDT) Glucometer, POC 128 65 - 199 mg/dL 02/26/2024 11:31 AM EDT [facility] Comment:Supplemental ranges: <140 mg/dL before meals <180 mg/dL all other times of the day. Blood CAPILLARY BLOOD / Unknown 02/26/2024 11:31 AM EDT 02/26/2024 11:31 AM EDT Kd Huggins MD POINT OF CARE TEST ORDERABLES [facility] [place] [address] * (ABNORMAL) POC, GLUCOSE (02/26/2024 9:35 AM EDT) Glucometer, POC 244(H) 65 - 199 mg/dL 02/26/2024 9:35 AM EDT [facility] Comment:Supplemental ranges: <140 mg/dL before meals <180 mg/dL all other times of the day. Blood CAPILLARY BLOOD / Unknown 02/26/2024 9:35 AM EDT 02/26/2024 9:36 AM EDT Kd Huggins MD POINT OF CARE TEST ORDERABLES Performing Organization Address City/[facility]/ZIP Co de Phone Number [facility] [place] [address] * (ABNORMAL) POC, GLUCOSE (02/26/2024 7:41 AM EDT) Glucometer, POC 276(H) 65 - 199 mg/dL 02/26/2024 7:41 AM EDT [facility] Comment:Supplemental ranges: <140 mg/dL before meals <180 mg/dL all other times of the day. Blood CAPILLARY BLOOD / Unknown 02/26/2024 7:41 AM EDT 02/26/2024 7:41 AM EDT Arti Griffin MD POINT OF CARE TEST ORDERABLES [facility] [place] [address] * POC, GLUCOSE (02/26/2024 3:21 AM EDT) Glucometer, POC 105 65 - 199 mg/dL 02/26/2024 3:21 AM EDT [facility] Comment:Supplemental ranges: <140 mg/dL before meals <180 mg/dL all other times of the day. Blood CAPILLARY BLOOD / Unknown 02/26/2024 3:21 AM EDT 02/26/2024 3:22 AM EDT Arti Griffin MD POINT OF CARE TEST ORDERABLES Performing Organization Address City/[facility]/ZIP Co de Phone Number [facility] [place] [address] * Osmolality (02/26/2024 12:04 AM EDT) Osmolality 275 275 - 295 mOsm/kg 02/28/2024 2:43 PM EDT [facility] Blood VENOUS BLOOD SPECIMEN / Unknown IP Care Team Draw / Unknown 02/26/2024 12:04 AM EDT 02/26/2024 12:11 AM EDT Kd Huggins MD CHEMISTRY ORDERABL ES Performing Organization Address [facility] Co de Phone Number [facility] [place] [address] * POC, GLUCOSE (02/26/2024 12:04 AM EDT) Glucometer, POC 181 65 - 199 mg/dL 02/26/2024 12:04 AM EDT [facility] Comment:Supplemental ranges: <140 mg/dL before meals <180 mg/dL all other times of the day. Blood CAPILLARY BLOOD / Unknown 02/26/2024 12:04 AM EDT 02/26/2024 12:04 AM EDT Arti Griffin MD POINT OF CARE TEST ORDERABLES Performing Organization Address [facility] Co de Phone Number [facility] [place] [address] * Magnesium (02/26/2024 12:04 AM EDT) Magnesium 0.79 0.69 - 1.07 mMol/L 02/26/2024 12:42 AM EDT [facility] Blood VENOUS BLOOD SPECIMEN / Unknown IP Care Team Draw / Unknown 02/26/2024 12:04 AM EDT 02/26/2024 12:11 AM EDT Susanna Cm [employer] CHEMISTRY ORDERABLE S [facility] [place] [address] * (ABNORMAL) CBC (with Diff) (02/26/2024 12:04 AM EDT) White Blood Cell 5.76 4.00 - 9.50 x10(3)/mc L 02/26/2024 12:17 AM [facility] Red Blood Cell 3.81(L) 4.58 - 5.54 x10(6)/mc L 02/26/2024 12:17 AM [facility] Hemoglobin 10.6(L) 13.7 - 16.5 g/dL 02/26/2024 12:17 AM [facility] Hematocrit 31.0(L) 40.5 - 48.5 % 02/26/2024 12:17 AM [facility] Mean Cell Volume 81.4(L) 82.9 - 93.1 fL 02/26/2024 12:17 AM [facility] Mean Cell Hemoglobin 27.8 27.5 - 32.1 pg 02/26/2024 12:17 AM [facility] Mean Cell Hemoglobin Concentration 34.2 32.0 - 35.7 g/dL 02/26/2024 12:17 AM [facility] Platelet 186 145 - 357 x10(3)/mc L 02/26/2024 12:17 AM [facility] Mean Platelet Volume 10.3 7.6 - 12.9 fL 02/26/2024 12:17 AM [facility] RDW Standard Deviation 45.5(H) 36.0 - 45.0 fL 02/26/2024 12:17 AM [facility] RDW coefficient of variation 15.4(H) 11.4 - 13.8 % 02/26/2024 12:17 AM [facility] NRBC% auto 0.0 % 02/26/2024 12:17 AM [facility] NRBC Absolute 0.00 0.00 - 0.00 x10(3)/mc L 02/26/2024 12:17 AM [facility] Neutrophil % 71.0 % 02/26/2024 12:17 AM [facility] Neutrophil Absolute (ANC) - Automated 4.09 1.70 - 6.10 x10(3)/mc L 02/26/2024 12:17 AM [facility] Lymph % 16.0 % 02/26/2024 12:17 AM [facility] Lymph Absolute 0.92 0.90 - 3.20 x10(3)/mc L 02/26/2024 12:17 AM [facility] Monocyte % 9.7 % 02/26/2024 12:17 AM [facility] Monocyte Absolute 0.56 0.30 - 0.90 x10(3)/mc L 02/26/2024 12:17 AM [facility] Eos % 2.3 % 02/26/2024 12:17 AM [facility] Eos Absolute 0.13 0.00 - 0.40 x10(3)/mc L 02/26/2024 12:17 AM [facility] Basophil % 0.5 % 02/26/2024 12:17 AM [facility] Baso Absolute 0.03 0.00 - 0.10 x10(3)/mc L 02/26/2024 12:17 AM [facility] Immature Gran % 0.5 % 12:17 AM [facility] Immature Gran Absolute 0.03 0.00 - 0.04 x10(3)/mc L 02/26/2024 12:17 AM T [facility] Blood VENOUS BLOOD SPECIMEN / Unknown IP Care Team Draw / Unknown 02/26/2024 12:04 AM EDT 02/26/2024 12:11 AM EDT Susanna Cm [employer] HEMATOLOGY ORDERABL ES [facility] [place] [address] * (ABNORMAL) Basic Metabolic Panel (02/26/2024 12:04 AM EDT) Glucose 182 65 - 199 mg/dL 02/26/2024 12:42 AM [facility] Comment:Glucose Concentratio n >=200 mg/dL plus symptoms is consistent with Diabetes Mellitus. Blood Urea Nitrogen 11 10 - 20 mg/dL 02/26/2024 12:42 AM [facility] Creatinine 0.97 0.80 - 1.50 mg/dL 02/26/2024 12:42 AM [facility] Sodium 129(L) 135 - 145 mMol/L 02/26/2024 12:42 AM [facility] Potassium 4.5 3.5 - 5.0 mMol/L 02/26/2024 12:42 AM [facility] Chloride 94(L) 98 - 107 mMol/L 02/26/2024 12:42 AM [facility] Carbon Dioxide 23 22 - 31 mMol/L 02/26/2024 12:42 AM [facility] Anion Gap 12 5 - 15 mMol/L 02/26/2024 12:42 AM [facility] Calcium 8.9 8.5 - 10.5 mg/dL 02/26/2024 12:42 AM [facility] Est Glomerular Filtration Rate - Male 82 mL/min/1. 73 m?? 02/26/2024 12:42 AM [facility] Comment: This patient's estimated GFR [...] EDT Susanna Cm APRN CHEMISTRY ORDERABLE S [facility] [place] [address] * POC, GLUCOSE (02/25/2024 7:39 PM EDT) Glucometer, POC 112 65 - 199 mg/dL 02/25/2024 7:39 PM EDT [facility] Comment:Supplemental ranges: <140 mg/dL before meals <180 mg/dL all other times of the day. Blood CAPILLARY BLOOD / Unknown 02/25/2024 7:39 PM EDT 02/25/2024 7:39 PM EDT Arti Griffin MD POINT OF CARE TEST ORDERABLES [facility] [place] [address] * POC, GLUCOSE (02/25/2024 4:11 PM EDT) Glucometer, POC 169 65 - 199 mg/dL 02/25/2024 4:11 PM EDT [facility] Comment:Supplemental ranges: <140 mg/dL before meals <180 mg/dL all other times of the day. Blood CAPILLARY BLOOD / Unknown 02/25/2024 4:11 PM EDT 02/25/2024 4:11 PM EDT Arti Griffin MD POINT OF CARE TEST ORDERABLES [facility] [place] [address] * EEG Continuous Monitoring Inpatient (02/25/2024 4:00 PM EDT) Narrative Josias Hyman MD - 02/25/2024 4:00 PM EDT Josias Hyman MD ? 02/25/2024 ??4:02 PM [facility] Department of Neurology Inpatient Continuous Video EEG Report Name of the Patient: ??Johnson Tobar Date of : ?1950 Patient Location: [facility] Date of Service: 02/24/2024 Referring [...] ??Earlier today, he was taken to the label stamper, though no intervention required. ??In recovery, pt [...] EKG. Video was recorded during the session. INDEPENDENT CONSULTANT'S REPORT: Performed by: AT At the onset [...] MD PGY-6 Clinical Instructor - Epilepsy Fellow [facility] Department of Neurology 02/25/2024 Susanna Cm APRN NEUROLOGY ORDERABLE S * MRI Brain wo Contrast (02/25/2024 3:06 PM EDT) [employer] WORKSTATION ID [id number] RAD Anatomical Region Laterality Modality Head Magnetic [...] who have questions please contact the health care coordination manager that requested your imaging first. ? Narrative [...] patients who have questions please contactthe health care coordination manager that requested your imaging first. Gonzalez Barajas MD IMG MRI ORDERABLES * Carotid Duplex, Bilateral (02/25/2024 2:32 PM EDT) VB Text Report Department: Vascular Surgery Lab Patient: [id number] (JOHNSON TOBAR) CPT: 75370 Referring Physician: SUSANNA CM ?? Phone: Indications: [...] VASCUBASE 02/25/2024 2:32 PM EDT Susanna Cm [employer] VASCULAR ORDERABLES VASCUBASE * (ABNORMAL) Basic Metabolic Panel (02/25/2024 1:12 PM EDT) Glucose 171 65 - 199 mg/dL 02/25/2024 4:00 PM T [facility] Comment:Glucose Concentratio n >=200 mg/dL plus symptoms is consistent with Diabetes Mellitus. Blood Urea Nitrogen 11 10 - 20 mg/dL 02/25/2024 4:00 PM [facility] Creatinine 1.00 0.80 - 1.50 mg/dL 02/25/2024 4:00 PM [facility] Sodium 129(L) 135 - 145 mMol/L 02/25/2024 4:00 PM [facility] Potassium 4.4 3.5 - 5.0 mMol/L 02/25/2024 4:00 PM [facility] Chloride 94(L) 98 - 107 mMol/L 02/25/2024 4:00 PM [facility] Carbon Dioxide 22 22 - 31 mMol/L 02/25/2024 4:00 PM [facility] Anion Gap 13 5 - 15 mMol/L 02/25/2024 4:00 PM [facility] Calcium 9.4 8.5 - 10.5 mg/dL 02/25/2024 4:00 PM [facility] Est Glomerular Filtration Rate - Male 79 mL/min/1. 73 m?? 02/25/2024 4:00 PM [facility] Comment: This patient's estimated GFR [...] MD CHEMISTRY ORDERABL ES Performing Organization Address City/[facility]/ZIP Co de Phone Number [facility] [place] [address] * POC, GLUCOSE (02/25/2024 12:44 PM EDT) Glucometer, POC 143 65 - 199 mg/dL 02/25/2024 12:45 PM EDT [facility] Comment:Supplemental ranges: <140 mg/dL before meals <180 mg/dL all other times of the day. Blood CAPILLARY BLOOD / Unknown 02/25/2024 12:44 PM EDT 02/25/2024 12:45 PM EDT Gonzalez Barajas MD POINT OF CARE TEST ORDERABLES Performing Organization Address [facility]/ZIP Co de Phone Number [facility] [place] [address] * POC, GLUCOSE (02/25/2024 7:29 AM EDT) Glucometer, POC 123 65 - 199 mg/dL 02/25/2024 7:30 AM EDT [facility] Comment:Supplemental ranges: <140 mg/dL before meals <180 mg/dL all other times of the day. Blood CAPILLARY BLOOD / Unknown 02/25/2024 7:29 AM EDT 02/25/2024 7:30 AM EDT Gonzalez Barajas MD POINT OF CARE TEST ORDERABLES [facility] [place] [address] * (ABNORMAL) POC, GLUCOSE (02/25/2024 3:58 AM EDT) [facility] Glucometer, POC 252(H) 65 - 199 mg/dL 02/25/2024 3:58 AM EDT [facility] Comment:Supplemental ranges: <140 mg/dL before meals <180 mg/dL all other times of the day. Blood CAPILLARY BLOOD / Unknown 02/25/2024 3:58 AM EDT 02/25/2024 3:58 AM EDT Gonzalez Barajas MD POINT OF CARE TEST ORDERABLES [facility] [place] [address] * (ABNORMAL) Magnesium (02/25/2024 1:06 AM EDT) [facility] Magnesium 0.63(L) 0.69 - 1.07 mMol/L 02/25/2024 1:53 AM EDT [facility] Blood VENOUS BLOOD SPECIMEN / Unknown IP Care Team Draw / Unknown 02/25/2024 1:06 AM EDT 02/25/2024 1:12 AM EDT Susanna Cm APRN CHEMISTRY ORDERABLE S [facility] [place] [address] * (ABNORMAL) CBC (with Diff) (02/25/2024 1:06 AM EDT) [facility] White Blood Cell 5.55 4.00 - 9.50 x10(3)/mc L 02/25/2024 1:29 AM EDT [facility] Red Blood Cell 3.97(L) 4.58 - 5.54 x10(6)/mc L 02/25/2024 1:29 AM EDT [facility] Hemoglobin 10.9(L) 13.7 - 16.5 g/dL 02/25/2024 1:29 AM [facility] Hematocrit 31.6(L) 40.5 - 48.5 % 02/25/2024 1:29 AM [facility] Mean Cell Volume 79.6(L) 82.9 - 93.1 fL 02/25/2024 1:29 AM [facility] Mean Cell Hemoglobin 27.5 27.5 - 32.1 pg 02/25/2024 1:29 AM [facility] Mean Cell Hemoglobin Concentration 34.5 32.0 - 35.7 g/dL 02/25/2024 1:29 AM [facility] Platelet 173 145 - 357 x10(3)/mc L 02/25/2024 1:29 AM [facility] Mean Platelet Volume 10.4 7.6 - 12.9 fL 02/25/2024 1:29 AM [facility] RDW Standard Deviation 44.6 36.0 - 45.0 fL 02/25/2024 1:29 AM [facility] RDW coefficient of variation 15.2(H) 11.4 - 13.8 % 02/25/2024 1:29 AM [facility] NRBC% auto 0.0 % 02/25/2024 1:29 AM [facility] NRBC Absolute 0.00 0.00 - 0.00 x10(3)/mc L 02/25/2024 1:29 AM [facility] Neutrophil % 71.1 % 02/25/2024 1:29 AM [facility] Neutrophil Absolute (ANC) - Automated 3.95 1.70 - 6.10 x10(3)/mc L 02/25/2024 1:29 AM [facility] Lymph % 13.2 % 02/25/2024 1:29 AM [facility] Lymph Absolute 0.73(L) 0.90 - 3.20 x10(3)/mc L 02/25/2024 1:29 AM EDT [facility] Monocyte % 12.6 % 02/25/2024 1:29 AM EDT [facility] Monocyte Absolute 0.70 0.30 - 0.90 x10(3)/mc L 02/25/2024 1:29 AM EDT [facility] Eos % 2.2 % 02/25/2024 1:29 AM EDT [facility] Eos Absolute 0.12 0.00 - 0.40 x10(3)/mc L 02/25/2024 1:29 AM EDT [facility] Basophil % 0.4 % 02/25/2024 1:29 AM EDT [facility] Baso Absolute 0.02 0.00 - 0.10 x10(3)/mc L 02/25/2024 1:29 AM EDT [facility] Immature Gran % 0.5 % 1:29 AM EDT [facility] Immature Gran Absolute 0.03 0.00 - 0.04 x10(3)/mc L 02/25/2024 1:29 AM EDT [facility] Blood VENOUS BLOOD SPECIMEN / Unknown IP Care Team Draw / Unknown 02/25/2024 1:06 AM EDT 02/25/2024 1:12 AM EDT Susanna Cm [employer] HEMATOLOGY ORDERABL ES [facility] [place] [address] * (ABNORMAL) Basic Metabolic Panel (02/25/2024 1:06 AM EDT) Glucose 112 65 - 199 mg/dL 02/25/2024 1:53 AM EDT [facility] Comment:Glucose Concentratio n >=200 mg/dL plus symptoms is consistent with Diabetes Mellitus. Blood Urea Nitrogen 13 10 - 20 mg/dL 02/25/2024 1:53 AM EDT [facility] Creatinine 1.00 0.80 - 1.50 mg/dL 02/25/2024 1:53 AM [facility] Sodium 130(L) 135 - 145 mMol/L 02/25/2024 1:53 AM [facility] Potassium 4.3 3.5 - 5.0 mMol/L 02/25/2024 1:53 AM [facility] Chloride 95(L) 98 - 107 mMol/L 02/25/2024 1:53 AM [facility] Carbon Dioxide 22 22 - 31 mMol/L 02/25/2024 1:53 AM [facility] Anion Gap 13 5 - 15 mMol/L 02/25/2024 1:53 AM [facility] Calcium 9.4 8.5 - 10.5 mg/dL 02/25/2024 1:53 AM [facility] Est Glomerular Filtration Rate - Male 79 mL/min/1. 73 m?? 02/25/2024 1:53 AM [facility] Comment: This patient's estimated GFR [...] EDT 02/25/2024 1:12 AM EDT Susanna Cm [employer] CHEMISTRY ORDERABLE S [facility] [place] [address] * POC, GLUCOSE (02/24/2024 11:55 PM EDT) Glucometer, POC 143 65 - 199 mg/dL 02/24/2024 11:56 PM EDT [facility] Comment:Supplemental ranges: <140 mg/dL before meals <180 mg/dL all other times of the day. Blood CAPILLARY BLOOD / Unknown 02/24/2024 11:55 PM EDT 02/24/2024 11:56 PM EDT Gonzalez Barajas MD POINT OF CARE TEST ORDERABLES [facility] [place] [address] * CT Head WO Contrast Dual Energy (Post MT/TPA) (02/24/2024 10:04 PM EDT) Pathologist [employer] WORKSTATION ID [id number] DH RAD Anatomical Region Laterality Modality Head [...] who have questions please contact the health care coordination manager that requested your imaging first. ? Narrative [...] patients who have questions please contactthe health care coordination manager that requested your imaging first. Gonzalez Barajas MD IMG CT ORDERABLES * (ABNORMAL) POC, GLUCOSE (02/24/2024 9:00 PM EDT) Glucometer, POC 230(H) 65 - 199 mg/dL 02/24/2024 9:00 PM EDT [facility] Comment:Supplemental ranges: <140 mg/dL before meals <180 mg/dL all other times of the day. Blood CAPILLARY BLOOD / Unknown 02/24/2024 9:00 PM EDT 02/24/2024 9:00 PM EDT Gonzalez Barajas MD POINT OF CARE TEST ORDERABLES Performing Organization Address [facility]/ZIP Co de Phone Number [facility] [place] [address] * Electrolytes, urine, random (02/24/2024 8:58 PM EDT) Sodium, Urine 22 mMol/L 02/28/2024 8:18 AM EDT [facility] Potassium, Urine 68 mMol/L 02/28/2024 8:18 AM EDT [facility] Chloride, Urine <20 mMol/L 02/28/2024 8:18 AM EDT [facility] Urine URINE SPECIMEN / Unknown Non Blood Collection / Unknown 02/24/2024 8:58 PM EDT 02/24/2024 9:35 PM EDT Kd Huggins MD URINE ORDERABLES Performing Organization Address City/[facility]/ZIP Co de Phone Number [facility] [place] [address] * Osmolality, urine, random (02/24/2024 8:58 PM EDT) Osmolality, Urine 685 50 - 1,200 mOsm/kg 02/24/2024 11:35 PM EDT [facility] Urine URINE SPECIMEN / Unknown Non Blood Collection / Unknown 02/24/2024 8:58 PM EDT 02/24/2024 11:32 PM EDT Gonzalez Barajas MD URINE ORDERABLES Performing Organization Address City/[facility]/ZIP Co de Phone Number [facility] [place] [address] * Osmolality (02/24/2024 8:58 PM EDT) Osmolality 275 275 - 295 mOsm/kg 02/25/2024 12:20 AM EDT [facility] Blood VENOUS BLOOD SPECIMEN / Unknown IP Care Team Draw / Unknown 02/24/2024 8:58 PM EDT 02/24/2024 9:35 PM EDT Fariba Ramirez MD CHEMISTRY ORDERABLES Performing Organization Address City/[facility]/ZIP Co de Phone Number [facility] [place] [address] * POC, GLUCOSE (02/24/2024 6:45 PM EDT) Glucometer, POC 142 65 - 199 mg/dL 02/24/2024 6:45 PM EDT [facility] Comment:Supplemental ranges: <140 mg/dL before meals <180 mg/dL all other times of the day. Blood CAPILLARY BLOOD / Unknown 02/24/2024 6:45 PM EDT 02/24/2024 6:45 PM EDT Gonzalez Barajas MD POINT OF CARE TEST ORDERABLES Performing Organization Address City/[facility]/ZIP Co de Phone Number [facility] [place] [address] * POC, GLUCOSE (02/24/2024 3:24 PM EDT) Glucometer, POC 138 65 - 199 mg/dL 02/24/2024 3:24 PM EDT [facility] Comment:Supplemental ranges: <140 mg/dL before meals <180 mg/dL all other times of the day. Blood CAPILLARY BLOOD / Unknown 02/24/2024 3:24 PM EDT 02/24/2024 3:24 PM EDT Gonzalez Barajas MD POINT OF CARE TEST ORDERABLES Performing Organization Address City/[facility]/ZIP Co de Phone Number [facility] [place] [address] * TSH (02/24/2024 1:31 PM EDT) Thyroid Stimulating Hormone 2.07 0.27 - 4.20 mcIU/mL 02/24/2024 7:48 PM EDT [facility] Blood VENOUS BLOOD SPECIMEN / Unknown 02/24/2024 1:31 PM EDT 02/24/2024 1:48 PM EDT Gonzalez Barajas MD CHEMISTRY ORDERABL ES Performing Organization Address City/[facility]/ZIP Co de Phone Number [facility] [place] [address] * Lipid Panel (Reflex Direct LDL) (02/24/2024 1:31 PM EDT) Cholesterol, Total 91 mg/dL 02/24/2024 7:48 PM EDT [facility] Comment: Desirable: < 200 mg/dL Borderline High: 200 - 239 mg/dL High: > or = 240 mg/dL Triglyceride 122 mg/dL 02/24/2024 7:48 PM EDT [facility] Comment: Normal: <150 mg/dL Borderline High: 150-199 mg/dL High: 200-499 mg/dL Very High: > or =500 mg/dL HDL Cholesterol 32 mg/dL 7:48 PM EDT [facility] Comment:Males: High Risk: <4 0 mg/dL LDL Cholesterol 37 mg/dL 7:48 PM EDT [facility] Comment: Desirable: <100 mg/dL Above Desirable: 100-129 mg/dL Borderline High: 130-159 mg/dL High: 160-189 mg/dL Very High: > or =190 mg/dL Note: LDL calculation updated to the NIH LDL formula as of 02/16/2024 Non-HDL Cholesterol 59 mg/dL 02/24/2024 7:48 PM EDT [facility] Comment: Desirable: <130 mg/dL Above Desirable: 130-159 mg/dL Borderline High: 160-189 mg/dL High: 190-219 mg/dL Very High: > or = 220 mg/dL Blood VENOUS BLOOD SPECIMEN / Unknown 02/24/2024 1:31 PM EDT 02/24/2024 1:48 PM EDT [facility] - 02/24/2024 7:48 PM EDT It [...] ACC/AHA Guidelines (most recently Barb et al. [facility] 04/17/22): * For individuals with atherosclerotic cardiovascular [...] disease) Gonzalez Barajas MD CHEMISTRY ORDERABL ES [facility] [place] [address] * (ABNORMAL) CBC (with Diff) (02/24/2024 1:31 PM EDT) White Blood Cell 4.94 4.00 - 9.50 x10(3)/mc L 02/24/2024 1:54 PM EDT [facility] Red Blood Cell 3.80(L) 4.58 - 5.54 x10(6)/mc L 02/24/2024 1:54 PM EDT [facility] Hemoglobin 10.5(L) 13.7 - 16.5 g/dL 02/24/2024 1:54 PM EDT [facility] Hematocrit 30.7(L) 40.5 - 48.5 % 02/24/2024 1:54 PM EDT [facility] Mean Cell Volume 80.8(L) 82.9 - 93.1 fL 02/24/2024 1:54 PM EDT [facility] Mean Cell Hemoglobin 27.6 27.5 - 32.1 pg 02/24/2024 1:54 PM [facility] Mean Cell Hemoglobin Concentration 34.2 32.0 - 35.7 g/dL 02/24/2024 1:54 PM [facility] Platelet 172 145 - 357 x10(3)/mc L 02/24/2024 1:54 PM [facility] Mean Platelet Volume 10.3 7.6 - 12.9 fL 02/24/2024 1:54 PM [facility] RDW Standard Deviation 46.0(H) 36.0 - 45.0 fL 02/24/2024 1:54 PM [facility] RDW coefficient of variation 15.6(H) 11.4 - 13.8 % 02/24/2024 1:54 PM [facility] NRBC% auto 0.0 % 02/24/2024 1:54 PM [facility] NRBC Absolute 0.00 0.00 - 0.00 x10(3)/mc L 02/24/2024 1:54 PM [facility] Neutrophil % 68.5 % 02/24/2024 1:54 PM [facility] Neutrophil Absolute (ANC) - Automated 3.38 1.70 - 6.10 x10(3)/mc L 02/24/2024 1:54 PM [facility] Lymph % 16.4 % 02/24/2024 1:54 PM [facility] Lymph Absolute 0.81(L) 0.90 - 3.20 x10(3)/mc L 02/24/2024 1:54 PM [facility] Monocyte % 11.5 % 02/24/2024 1:54 PM [facility] Monocyte Absolute 0.57 0.30 - 0.90 x10(3)/mc L 02/24/2024 1:54 PM [facility] Eos % 2.2 % 02/24/2024 1:54 PM EDT [facility] Eos Absolute 0.11 0.00 - 0.40 x10(3)/mc L 02/24/2024 1:54 PM EDT [facility] Basophil % 0.4 % 02/24/2024 1:54 PM EDT [facility] Baso Absolute 0.02 0.00 - 0.10 x10(3)/mc L 02/24/2024 1:54 PM EDT [facility] Immature Gran % 1.0 % 1:54 PM EDT [facility] Immature Gran Absolute 0.05(H) 0.00 - 0.04 x10(3)/mc L 02/24/2024 1:54 PM EDT [facility] Blood VENOUS BLOOD SPECIMEN / Unknown 02/24/2024 1:31 PM EDT 02/24/2024 1:49 PM EDT Susanna Cm [employer] HEMATOLOGY ORDERABL ES [facility] [place] [address] * (ABNORMAL) Basic Metabolic Panel (02/24/2024 1:31 PM EDT) Glucose 137 65 - 199 mg/dL 02/24/2024 3:54 PM EDT [facility] Comment:Glucose Concentratio n >=200 mg/dL plus symptoms is consistent with Diabetes Mellitus. Blood Urea Nitrogen 11 10 - 20 mg/dL 02/24/2024 3:54 PM EDT [facility] Creatinine 1.05 0.80 - 1.50 mg/dL 02/24/2024 3:54 PM EDT [facility] Sodium 126(L) 135 - 145 mMol/L 02/24/2024 3:54 PM EDT [facility] Potassium 4.2 3.5 - 5.0 mMol/L 02/24/2024 3:54 PM EDT [facility] Chloride 95(L) 98 - 107 mMol/L 02/24/2024 3:54 PM EDT [facility] Carbon Dioxide 20(L) 22 - 31 mMol/L 02/24/2024 3:54 PM EDT [facility] Anion Gap 11 5 - 15 mMol/L 02/24/2024 3:54 PM EDT [facility] Calcium 8.7 8.5 - 10.5 mg/dL 02/24/2024 3:54 PM EDT [facility] Est Glomerular Filtration Rate - Male 74 mL/min/1. 73 m?? 02/24/2024 3:54 PM EDT [facility] Comment: This patient's estimated [...] EDT 02/24/2024 1:48 PM EDT Susanna Cm [employer] CHEMISTRY ORDERABLE S [facility] [place] [address] * Prothrombin Time (02/24/2024 1:25 PM EDT) Prothrombin Time 12.3 9.4 - 12.5 sec 02/24/2024 2:01 PM EDT [facility] International Normalization Ratio 1.1 <=4.9 02/24/2024 2:01 PM EDT [facility] Comment: An INR < [...] APRN HEMATOLOGY ORDERABL ES Performing Organization Address [facility] Co de Phone Number [facility] [place] [address] * APTT (02/24/2024 1:25 PM EDT) Pathologist [facility] Partial Thromboplastin Time 29 25 - 37 sec 02/24/2024 2:01 PM EDT [facility] Comment: The PTT is NOT appropriate for heparin monitoring. Use the Anti-Xa level for heparin monitoring (HEP UFH) or LMWH monitoring (HEP LMW). A PTT less than 37 seconds generally indicates adequate hemostasis. Blood VENOUS BLOOD SPECIMEN / Unknown 02/24/2024 1:25 PM EDT 02/24/2024 1:37 PM EDT Fariba Ramirez MD HEMATOLOGY ORDERABLE S Performing Organization Address [facility] Co de Phone Number [facility] [place] [address] * CT Head wo Contrast (Generic) (02/24/2024 1:10 PM EDT) WORKSTATION ID [id number] RAD Anatomical Region Laterality Modality Head Computed Tomogra phy Impressions 02/24/2024 2:49 PM EDT 1. ??Right P[employer]SEMBLER occlusion (distal P2 segment). 2. ??Severe right [...] who have questions please contact the health care coordination manager that requested your imaging first. ? Narrative 02/24/2024 2:49 PM EDT EXAMINATION: CT HEAD WO CONTRAST (GENERIC), CTA HEAD/NECK MULTIPHASE (THROMBECTOMY PROTOCOL) CLINICAL HISTORY: stroke alert TECHNIQUE: CT of head without intravenous contrast. Multiphase CTA of the carotids and [place] is performed after the administration of 65cc of Omnipaque 350 intravenous contrast. MIP and 3-D volumetric reconstructions were created. COMPARISON: None FINDINGS: CT Head: No acute intracranial hemorrhage or mass effect. Cheung-white matter differentiation is maintained. ??Normal caliber ventricles. Patent basal cisterns.. Imaged paranasal sinuses and mastoid air cells are clear. CTA [place]: Intradural segments of the internal carotid arteries are patent. ??Normal course and caliber of the middle and anterior cerebral arteries. Dominant left vertebral artery is normal caliber. Calcified atheroma moderate-severely narrow the intradural right vertebral artery. Normal basilar artery. Occluded mid-distal P2 segment of the right PLASTIC TOP ASSEMBLER without distal reconstitution. No filling on delayed [...] intravenous contrast. Multiphase CTA of the carotidsand [place] is performed after the administration of 65cc ofOmnipaque 350 intravenous contrast. MIP and 3-D volumetric reconstructions werecreated. COMPARISON: None FINDINGS: CT Head: No acute intracranial hemorrhage or mass effect. Cheung-white matter differentiation is maintained. Normal caliber ventricles. Patent basal cisterns.. Imaged paranasal sinuses and mastoid air cells are clear. CTA [place]: Intradural segments of the internal carotid arteries are patent. Normalcourse and caliber of the middle and anterior cerebral arteries. Dominant left vertebral artery is normal caliber. Calcified atheroma moderate-severely narrow the intradural right vertebral artery. Normalbasilar artery. Occluded mid-distal P2 segment of the right PLASTIC TOP ASSEMBLER without distalreconstitution. No filling on delayed images. [...] be exaggerated by respiratorymotion. IMPRESSION 1. Right PLASTIC TOP ASSEMBLER occlusion (distal P2 segment). 2. Severe right [...] patients who have questions please contactthe health care coordination manager that requested your imaging first. Susanna Cm [employer] MAINTENANCE IMG CT ORDERABLES * CTA Head/Neck Multiphase (Thrombectomy Protocol) (02/24/2024 1:10 PM EDT) [employer] WORKSTATION ID [id number] [facility] Anatomical Region Laterality Modality Head Computed Tomogra phy Impressions 02/24/2024 2:49 PM EDT 1. ??Right PLASTIC TOP ASSEMBLER occlusion (distal P2 segment). 2. ??Severe right [...] who have questions please contact the health care coordination manager that requested your imaging first. ? Narrative 02/24/2024 2:49 PM EDT EXAMINATION: CT HEAD WO CONTRAST (GENERIC), CTA HEAD/NECK MULTIPHASE (THROMBECTOMY PROTOCOL) CLINICAL HISTORY: stroke alert TECHNIQUE: CT of head without intravenous contrast. Multiphase CTA of the carotids and [place] is performed after the administration of 65cc of Omnipaque 350 intravenous contrast. MIP and 3-D volumetric reconstructions were created. COMPARISON: None FINDINGS: CT Head: No acute intracranial hemorrhage or mass effect. Cheung-white matter differentiation is maintained. ??Normal caliber ventricles. Patent basal cisterns.. Imaged paranasal sinuses and mastoid air cells are clear. CTA [place]: Intradural segments of the internal carotid arteries are patent. ??Normal course and caliber of the middle and anterior cerebral arteries. Dominant left vertebral artery is normal caliber. Calcified atheroma moderate-severely narrow the intradural right vertebral artery. Normal basilar artery. Occluded mid-distal P2 segment of the right PLASTIC TOP ASSEMBLER without distal reconstitution. No filling on delayed [...] intravenous contrast. Multiphase CTA of the carot[place] is performed after the administration of 65cc ofOmnipaque 350 intravenous contrast. MIP and 3-D volumetric reconstructions werecreated. COMPARISON: None FINDINGS: CT Head: No acute intracranial hemorrhage or mass effect. Cheung-white matter differentiation is maintained. Normal caliber ventricles. Patent basal cisterns.. Imaged paranasal sinuses and mastoid air cells are clear. CTA [place]: Intradural segments of the internal carotid arteries are patent. Normalcourse and caliber of the middle and anterior cerebral arteries. Dominant left vertebral artery is normal caliber. Calcified atheroma moderate-severely narrow the intradural right vertebral artery. Normalbasilar artery. Occluded mid-distal P2 segment of the right PLASTIC TOP ASSEMBLER without distalreconstitution. No filling on delayed images. [...] be exaggerated by respiratorymotion. IMPRESSION 1. Right PLASTIC TOP ASSEMBLER occlusion (distal P2 segment). 2. Severe right [...] patients who have questions please contactthe health care coordination manager that requested your imaging first. Susanna Cm [employer] MAINTENANCE IMG CT ORDERABLES * POC, GLUCOSE (02/24/2024 12:45 PM EDT) [facility] Signature Glucometer, POC 124 65 - 199 mg/dL 02/24/2024 12:46 PM EDT [facility] Comment:Supplemental ranges: <140 mg/dL before meals <180 mg/dL all other times of the day. Blood CAPILLARY BLOOD / Unknown 02/24/2024 12:45 PM EDT 02/24/2024 12:46 PM EDT Fariba Ramirez MD POINT OF CARE TEST O RDERABLES [facility] [place] [address] * CARDIAC CATHETERIZATION (02/24/2024 12:32 PM EDT) Anatomical Region Laterality Modality Other Narrative 02/25/2024 4:57 PM EDT ?[facility] ? Cardiac Catheterization/Intervention Report ? Patient Name: Ekaterina, Johnson R. ? Procedure Date: 02/24/2024 ? A #: [id number] ? Primary Physician: Mogadam, Emad ? Case #: [id number] ? File Name: [id number] ? Catheterization Order Number: [id number] ? [facility] ? Final Report [place], [place] ? Patient Name: ? Johnson R. Ekaterina ? ID#: ?[id number] ? : ?1950 ? Procedure Date: ? February 24, 2024 ?Case #: ? [id number] ? Room: ? 2 ? Case Physician: [...] as ASA Class III. The HA clinical ?frailty scale is 4: Vulnerable. ? [...] procedure was Urgent. The indication for ?the label stamper visit is ACS greater than 24 hrs. [...] Procedure Note Zara Dc MD - 03/06/2024 [facility] Cardiac Catheterization/Intervention Report Patient Name: Johnson Tobar Procedure Date: 02/24/2024 A #: [id number] Primary Physician: Zara Dc Case #: [id number] File Name: [id number] Catheterization Order Number: [id number] [facility] FinalReport [place], [place] Patient Name: Johnson Tobar ID#:[id number] :1950 Procedure Date: February 24, 2024 Case [...] diagnostic procedure was Urgent. The indicationfor the label stamper visit is ACS greater than 24 hrs. [...] - 199 mg/dL 02/24/2024 11:05 AM EDT [facility] Comment:Supplemental ranges: <140 mg/dL before meals <180 mg/dL all other times of the day. Blood CAPILLARY BLOOD / Unknown 02/24/2024 11:05 AM EDT 02/24/2024 11:05 AM EDT Fariba Ramirez MD POINT OF CARE TEST O RDERABLES [facility] [place] [address] * ECHO COMPLETE W CONTRAST (02/24/2024 9:18 AM EDT) [facility] Signature EF 55 HEART[facility] SYSTEM Anatomical Region Laterality Modality Cardiac Other 02/24/2024 6:53 AM EDT Narrative 02/24/2024 9:58 AM EDT [address] [place] [address] ? Echocardiogram Report Name: JOHNSON TOBAR ?Study Date: 02/24/2024 06:53 AMBP: 131/77 mmHg ? Patient Location: L4WB^463^A : 1950 ? Height: 170 cm ? Account: [id number] Age: 73 yrs ? Weight: 75 kg Gender: Male ?BSA: 1.9 m2 Ordering Physician: MAURICIO JEAN Referring Physician: AIREL LYNN Performed By: Kim Donahue RDCS Reason For Study: CAD Exam Location: [facility]. Interpretation Summary Technically difficult study despite [...] with a DEBORAH if clinically indicated. Procedure Complete-[id number]. Image enhancement Optison was used for left [...] Note Darron Manzanares MD - 02/24/2024 [address] [id number] Echocardiogram Report Name: JOHNSON TOBAR Study Date: 406:53 AMBP: 131/77 mmHg Patient Location[facility]^A : 1950 Height: 170 cm Account: [id number] Age: 73 yrs Weight: 75 kg Gender: Male BSA: 1.9 m2 Ordering Physician: MAURICIO JAEN Referring Physician: ARIEL LYNN Performed By: Kim Donahue RDCS Reason For Study: CAD Exam Location: [facility]. Interpretation Summary Technically difficult study despite [...] with a DEBORAH if clinically indicated. Procedure Complete-[id number]. Image enhancement Optison was used for left [...] - 199 mg/dL 02/24/2024 7:39 AM EDT [facility] Comment:Supplemental ranges: <140 mg/dL before meals <180 mg/dL all other times of the day. Blood CAPILLARY BLOOD / Unknown 02/24/2024 7:40 AM EDT 02/24/2024 7:40 AM EDT Fariba Ramirez MD POINT OF CARE TEST O RDERABLES [facility] [place] [address] * Prothrombin Time (02/24/2024 3:02 AM EDT) Prothrombin Time 12.3 9.4 - 12.5 sec 02/24/2024 1:32 PM EDT [facility] International Normalization Ratio 1.1 <=4.9 02/24/2024 1:32 PM EDT [facility] Comment: An INR < [...] EDT Fariba Ramirez MD HEMATOLOGY ORDERABLE S [facility] [place] [address] * (ABNORMAL) Hemoglobin A1c (02/24/2024 3:02 AM EDT) Hemoglobin A1c 8.3(H) 4.3 - 5.6 % 02/24/2024 10:42 AM EDT [facility] Comment: Per ADA guidelines, [...] red blood cell turnover may not be bilingual inside sales representative of glycemic control. Reference Interval: 4.3 - 5.6% 5.7 - 6.4%: Consistent with prediabetes >=6.5%: Consistent with diagnosis of diabetes mellitus Estimated Average Glucose 02/24/2024 10:42 AM EDT [facility] Comment:Not Calculated. Blood VENOUS BLOOD SPECIMEN / Unknown IP Care Team Draw / Unknown 02/24/2024 3:02 AM EDT 02/24/2024 3:07 AM EDT Narrative [facility] - 02/24/2024 10:42 AM EDT Estimated average glucose (eAG) is calculated from the equation described in: Johnathan BOO, Cira J, Mak R, et al. ??Translating the A1C assay into estimated average glucose values. ??Diabetes Care 2008:31(8):8569-7203. Additional resources are available on the ADA website (diabetes.org). Fariba Ramirez MD CHEMISTRY ORDERABLES Performing Organization Address City/[facility]/ZIP Co de Phone Number [facility] [place] [address] * (ABNORMAL) Troponin - Single (02/24/2024 3:02 AM EDT) Troponin-T, High Sensitivity 141(H) <=22 ng/L 02/24/2024 6:30 AM EDT [facility] Comment: This patient's troponin [...] troponin value can be found in the [facility] Test Catalog Troponin - [email or web address].org/catalogs/565/files/[email or web address] Reference: Fourth Crittenden Definition of Myocardial Infarction. Journal of the [place] College [employer]iology 2018;72:3350-0181 Blood VENOUS BLOOD SPECIMEN / Unknown IP Care Team Draw / Unknown 02/24/2024 3:02 AM EDT 02/24/2024 3:07 AM EDT Mauricio Jean MD CHEMISTRY ORDERABLES Performing Organization Address City/[facility]/ZIP Co de Phone Number [facility] [place] [address] * Heparin (unfractionated) Level (02/24/2024 3:02 AM EDT) UF Heparin 0.23 IU/mL 02/24/2024 3:25 AM EDT [facility] Comment: Heparin (anti-Xa) levels [...] EDT Mauricio Jean MD HEMATOLOGY ORDERABLE S [facility] [place] [address] * (ABNORMAL) Magnesium (02/24/2024 3:02 AM EDT) Pathologist [facility] Magnesium 0.44(L) 0.69 - 1.07 mMol/L 02/24/2024 3:38 AM EDT [facility] Blood VENOUS BLOOD SPECIMEN / Unknown IP Care Team Draw / Unknown 02/24/2024 3:02 AM EDT 02/24/2024 3:07 AM EDT Marina Schmitz [employer] CHEMISTRY ORDERAB LES [facility] [place] [address] * (ABNORMAL) Basic Metabolic Panel (02/24/2024 3:02 AM EDT) Glucose 88 65 - 199 mg/dL 02/24/2024 3:38 AM [facility] Comment:Glucose Concentratio n >=200 mg/dL plus symptoms is consistent with Diabetes Mellitus. Blood Urea Nitrogen 12 10 - 20 mg/dL 02/24/2024 3:38 AM [facility] Creatinine 0.95 0.80 - 1.50 mg/dL 02/24/2024 3:38 AM [facility] Sodium 131(L) 135 - 145 mMol/L 02/24/2024 3:38 AM [facility] Potassium 4.0 3.5 - 5.0 mMol/L 02/24/2024 3:38 AM [facility] Chloride 96(L) 98 - 107 mMol/L 02/24/2024 3:38 AM [facility] Carbon Dioxide 19(L) 22 - 31 mMol/L 02/24/2024 3:38 AM [facility] Anion Gap 16(H) 5 - 15 mMol/L 02/24/2024 3:38 AM [facility] Calcium 9.7 8.5 - 10.5 mg/dL 02/24/2024 3:38 AM [facility] Est Glomerular Filtration Rate - Male 84 mL/min/1. 73 m?? 02/24/2024 3:38 AM [facility] Comment: This patient's estimated GFR [...] EDT 02/24/2024 3:07 AM EDT Marina Schmitz [employer] CHEMISTRY ORDERAB LES [facility] [place] [address] * (ABNORMAL) CBC (with Diff) (02/24/2024 3:02 AM EDT) White Blood Cell 5.20 4.00 - 9.50 x10(3)/mc L 02/24/2024 3:13 AM EDT [facility] Red Blood Cell 4.11(L) 4.58 - 5.54 x10(6)/mc L 02/24/2024 3:13 AM EDT [facility] Hemoglobin 11.3(L) 13.7 - 16.5 g/dL 02/24/2024 3:13 AM EDT [facility] Hematocrit 33.2(L) 40.5 - 48.5 % 02/24/2024 3:13 AM T [facility] Mean Cell Volume 80.8(L) 82.9 - 93.1 fL 02/24/2024 3:13 AM [facility] Mean Cell Hemoglobin 27.5 27.5 - 32.1 pg 02/24/2024 3:13 AM EDT [facility] Mean Cell Hemoglobin Concentration 34.0 32.0 - 35.7 g/dL 02/24/2024 3:[facility] 151 145 - 357 x10(3)/mc L 02/24/2024 3:[facility] Mean Platelet Volume 10.6 7.6 - 12.9 fL 02/24/2024 3:13 AM [facility] RDW Standard Deviation 46.5(H) 36.0 - 45.0 fL 02/24/2024 3:13 AM [facility] RDW coefficient of variation 15.7(H) 11.4 - 13.8 % 02/24/2024 3:13 AM [facility] NRBC% auto 0.0 % 02/24/2024 3:13 AM [facility] NRBC Absolute 0.00 0.00 - 0.00 x10(3)/mc L 02/24/2024 3:13 AM [facility] Neutrophil % 71.9 % 02/24/2024 3:13 AM [facility] Neutrophil Absolute (ANC) - Automated 3.74 1.70 - 6.10 x10(3)/mc L 02/24/2024 3:13 AM [facility] Lymph % 13.3 % 02/24/2024 3:13 AM [facility] Lymph Absolute 0.69(L) 0.90 - 3.20 x10(3)/mc L 02/24/2024 3:13 AM [facility] Monocyte % 11.3 % 02/24/2024 3:13 AM [facility] Monocyte Absolute 0.59 0.30 - 0.90 x10(3)/mc L 02/24/2024 3:13 AM [facility] Eos % 2.5 % 02/24/2024 3:13 AM [facility] Eos Absolute 0.13 0.00 - 0.40 x10(3)/mc L 02/24/2024 3:13 AM [facility] Basophil % 0.4 % 02/24/2024 3:13 AM [facility] Baso Absolute 0.02 0.00 - 0.10 x10(3)/mc L 02/24/2024 3:13 AM [facility] Immature Gran % 0.6 % 3:13 AM [facility] Immature Gran Absolute 0.03 0.00 - 0.04 x10(3)/mc L 02/24/2024 3:13 AM EDT [facility] Blood VENOUS BLOOD SPECIMEN / Unknown IP Care Team Draw / Unknown 02/24/2024 3:02 AM EDT 02/24/2024 3:07 AM EDT Mauricio Jean MD HEMATOLOGY ORDERABLE S Performing Organization Address City/[facility]/ZIP Co de Phone Number [facility] [place] [address] * EKG 12 Lead (02/24/2024 2:00 AM EDT) Ventricular rate 84 BPM MUSE SYSTEM Atrial Rate 84 BPM MUSE SYSTEM P-R Interval 124 ms MUSE SYSTEM QRS Duration 80 ms MUSE SYSTEM Q-T Interval 372 ms MUSE SYSTEM QTC Calculated (Bezet) 439 ms MUSE SYSTEM Calculated P [place] 59 degrees MUSE SYSTEM Calculated R [place] -8 degrees MUSE SYSTEM Calculated T [place] 0 degrees MUSE SYSTEM INTERPRETATION Normal sinus rhythm Possible Left atrial enlargement Inferior infarct (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-2020) Borderline ST depression Lateral leads Abnormal ECG When compared with ECG of 26-JUN-2023 13:17, No significant change was found I personally reviewed the tracing and edited the fellows interpretation Confirmed by fellow MD Sunshine, Carl ([id number]) on 02/24/2024 10:56:50 AM Confirmed by MD Darrick, Marshal ([id number]) on 02/25/2024 5:56:17 AM MUSE SYSTEM 02/24/2024 2:00 AM EDT 02/25/2024 5:56 AM EDT Mauricio Jean MD ECG ORDERABLES Performing Organization Address City/[facility]/ZIP Co de Phone Number MUSE SYSTEM * POC, GLUCOSE (02/23/2024 9:40 PM EDT) Glucometer, POC 135 65 - 199 mg/dL 02/23/2024 9:40 PM EDT [facility] Comment:Supplemental ranges: <140 mg/dL before meals <180 mg/dL all other times of the day. Blood CAPILLARY BLOOD / Unknown 02/23/2024 9:40 PM EDT 02/23/2024 9:40 PM EDT Kal Puentes MD POINT OF CARE TEST O RDERABLES Performing Organization Address [facility]/ZIP Co de Phone Number [facility] [place] [address] * (ABNORMAL) Magnesium (02/23/2024 9:37 PM EDT) Magnesium 0.43(L) 0.69 - 1.07 mMol/L 02/23/2024 10:19 PM EDT [facility] Blood VENOUS BLOOD SPECIMEN / Unknown IP Care Team Draw / Unknown 02/23/2024 9:37 PM EDT 02/23/2024 9:42 PM EDT Marina Schmitz [employer] CHEMISTRY ORDERAB LES Performing Organization Address [facility] Co de Phone Number [facility] [place] [address] * (ABNORMAL) Basic Metabolic Panel (02/23/2024 9:37 PM EDT) Glucose 126 65 - 199 mg/dL 02/23/2024 10:19 PM EDT [facility] Comment:Glucose Concentratio n >=200 mg/dL plus symptoms is consistent with Diabetes Mellitus. Blood Urea Nitrogen 14 10 - 20 mg/dL 02/23/2024 10:19 PM EDT [facility] Creatinine 1.00 0.80 - 1.50 mg/dL 02/23/2024 10:19 PM EDT [facility] Sodium 129(L) 135 - 145 mMol/L 02/23/2024 10:19 PM EDT [facility] Potassium 4.0 3.5 - 5.0 mMol/L 02/23/2024 10:19 PM EDT [facility] Chloride 94(L) 98 - 107 mMol/L 02/23/2024 10:19 PM EDT [facility] Carbon Dioxide 20(L) 22 - 31 mMol/L 02/23/2024 10:19 PM EDT [facility] Anion Gap 15 5 - 15 mMol/L 02/23/2024 10:19 PM EDT [facility] Calcium 9.6 8.5 - 10.5 mg/dL 02/23/2024 10:19 PM EDT [facility] Est Glomerular Filtration Rate - Male 79 mL/min/1. 73 m?? 02/23/2024 10:19 PM EDT [facility] Comment: This patient's estimated [...] EDT 02/23/2024 9:42 PM EDT Marina Schmitz [employer] CHEMISTRY ORDERAB LES [facility] [place] [address] * (ABNORMAL) CBC (with Diff) (02/23/2024 9:37 PM EDT) White Blood Cell 5.78 4.00 - 9.50 x10(3)/mc L 02/23/2024 9:52 PM EDT [facility] Red Blood Cell 4.24(L) 4.58 - 5.54 x10(6)/mc L 02/23/2024 9:52 PM EDT [facility] Hemoglobin 11.7(L) 13.7 - 16.5 g/dL 02/23/2024 9:52 PM [facility] Hematocrit 34.5(L) 40.5 - 48.5 % 02/23/2024 9:52 PM [facility] Mean Cell Volume 81.4(L) 82.9 - 93.1 fL 02/23/2024 9:52 PM [facility] Mean Cell Hemoglobin 27.6 27.5 - 32.1 pg 02/23/2024 9:52 PM [facility] Mean Cell Hemoglobin Concentration 33.9 32.0 - 35.7 g/dL 02/23/2024 9:52 PM [facility] Platelet 158 145 - 357 x10(3)/mc L 02/23/2024 9:52 PM [facility] Mean Platelet Volume 10.4 7.6 - 12.9 fL 02/23/2024 9:52 PM [facility] RDW Standard Deviation 47.0(H) 36.0 - 45.0 fL 02/23/2024 9:52 PM [facility] RDW coefficient of variation 15.8(H) 11.4 - 13.8 % 02/23/2024 9:52 PM [facility] NRBC% auto 0.0 % 02/23/2024 9:52 PM [facility] NRBC Absolute 0.00 0.00 - 0.00 x10(3)/mc L 02/23/2024 9:52 PM [facility] Neutrophil % 73.4 % 02/23/2024 9:52 PM [facility] Neutrophil Absolute (ANC) - Automated 4.24 1.70 - 6.10 x10(3)/mc L 02/23/2024 9:52 PM [facility] Lymph % 13.5 % 02/23/2024 9:52 PM [facility] Lymph Absolute 0.78(L) 0.90 - 3.20 x10(3)/mc L 02/23/2024 9:52 PM [facility] Monocyte % 9.7 % 02/23/2024 9:52 PM EDT [facility] Monocyte Absolute 0.56 0.30 - 0.90 x10(3)/mc L 02/23/2024 9:52 PM EDT [facility] Eos % 2.4 % 02/23/2024 9:52 PM EDT [facility] Eos Absolute 0.14 0.00 - 0.40 x10(3)/mc L 02/23/2024 9:52 PM EDT [facility] Basophil % 0.5 % 02/23/2024 9:52 PM EDT [facility] Baso Absolute 0.03 0.00 - 0.10 x10(3)/mc L 02/23/2024 9:52 PM EDT [facility] Immature Gran % 0.5 % 9:52 PM EDT [facility] Immature Gran Absolute 0.03 0.00 - 0.04 x10(3)/mc L 02/23/2024 9:52 PM EDT [facility] Blood VENOUS BLOOD SPECIMEN / Unknown IP Care Team Draw / Unknown 02/23/2024 9:37 PM EDT 02/23/2024 9:42 PM EDT Marina Schmitz [employer] HEMATOLOGY ORDERA BLES [facility] [place] [address] * (ABNORMAL) pro-Brain Natriuretic Peptide (02/23/2024 9:37 PM EDT) NT-proBNP 1,918(H) <=124 pg/mL 02/23/2024 10:19 PM EDT [facility] Blood VENOUS BLOOD SPECIMEN / Unknown IP Care Team Draw / Unknown 02/23/2024 9:37 PM EDT 02/23/2024 9:42 PM EDT Mauricio Jean MD CHEMISTRY ORDERABLES Performing Organization Address City/[facility]/ZIP Co de Phone Number [facility] [place] [address] * (ABNORMAL) Troponin - Single (02/23/2024 9:37 PM EDT) Troponin-T, High Sensitivity 161(H) <=22 ng/L 02/23/2024 10:19 PM EDT [facility] Comment: This patient's troponin [...] troponin value can be found in the [facility] Test Catalog Troponin - [email or web address]/catalogs/[email or web address] Reference: Fourth Crittenden Definition of Myocardial Infarction. 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, s/p tPA- Primary Coronary artery disease, unspecified vessel or lesion type, unspecified whether angina present, unspecified whether [place] or transplanted heart Internal carotid artery stenosis, [...] 10 mg, Intravenous, ONCE, 1 dose, On 8/14/24 at 1130 Given 02/26/2024 11:22 AM EDT [...] 2 g, Intravenous, ONCE, 1 dose, On Sat02/27/24 at 0815, Administer over 120 Minutes New [...] Burns RN)1300 (Given - Provider: Noemi Townsend RN)1851 (Given - Provider: Noemi Townsend RN)2054 (Given - Provider: Linsey Esquivel RN) 0900 (Given - Provider: Wendi Baeza RN) clopidogreL (Plavix) tablet 75 mg 75 mg, Oral, DAILY, First dose on Sat02/26/24 at 0900, Until Discontinued, Routine 0943 (Given - Provider: Dotty Burns RN) 09 (Given - Provider: Wendi Baeza, RN) 101 [...] on Sat02/25/24 at 0900, Until Discontinued, Routine 940 (Given - Provider: Dotty Burns RN) 09 [...] Burns RN) 0736 (Given - Provider: Wendi Baeza, MOISES)1153 (Given - Provider: Wendi Baeza RN)1650 (Given [...] Wendi Baeza RN)2025 (Given - Provider: Linsey Esquivel, MOISES) 1013 (Given - Provider: Miguel A Vides LPN [...] Discontinued, Routine 1624 (Given - Provider: Noemi Townsend, MOISES) 1700 (Given - Provider: Wendi [...] Wendi Baeza RN)2025 (Given - Provider: Linsey Esquivel, MOISES) 1012 (Given - Provider: Migule A Vides LPN - Comment: patient was [...] 101 (Given - Provider: Miguel A Pimental, CHIEF CRUISER - Comment: patient was off unit for [...] Routine documented in this encounter Care Teams Lab Associate Relationship Specialty Start Date End Date Tamia Tsai PA [address] [place] [id number] PCP - General Family Medicine 02/18/24 documented as of this encounter
--- OUTSIDE RECORDS SUMMARY | 2024-04-02 21:11 | XMS_ITS | Encounter Summary ---
Author Organization [facility] Address [facility] [place] [address] Care Team Providers Care Injection Molding Supervisor Name Role Phone Tamia Tsai Primary Care Provider [phone] Encounter Details Date Type Department Care Team (Latest Contact Info) Description 02/24/2024 Travel Social History Tobacco Use Types Packs/Day Years Used Date Smoking Tobacco: Never Smokeless Tobacco: Never Alcohol Use Standard Drinks/Week Comments Not Currently 0 (1 standard drink = 0.6 oz pur e alcohol) [facility] Utilities Answer Date Recorded [...] any time in the past 12 m [facility], were you homeless or living in a [...] 2:30 PM EST [place] [address] Susanna Cm, [facility] [place] [address] documented as of this encounter Visit Diagnoses Not on filedocumented in this encounter Care Teams Injection Molding Supervisor Relationship Specialty Start Date End Date Tamia Tsai PA [address] [place] [id number] PCP - General Family Medicine 02/18/24 documented as of this encounter
--- OUTSIDE RECORDS SUMMARY | 2024-04-02 21:12 | XMS_ITS | Encounter Summary ---
Author Organization [facility] [place] [address] Care Team Providers Care Senior Controls Analyst Name Role Phone Ramiro Ball MD Primary Care Provider [phone] Encounter Details Date Type Department Care Team (Late st Contact Info) Description 05/17/2023 Orders Only Cardiology at [address] [phone] Everett Guthrie MD [facility] [place] [address] Coronary artery disease, unspecified vessel or lesion type, unspecified whether angina present, unspecified whether [place] or transplanted heart Social History Tobacco Use [...] 2:30 PM EST [place] [phone] Susanna Cm, [employer] [facility] [place] [address] documented as of this encounter Visit Diagnoses Diagnosis Coronary artery disease, unspecified vessel or lesion type, unspecified whether angina present, unspecified whether [place] or transplanted heart documented in this encounter Care Teams Senior Controls Analyst Relationship Specialty Start Date End Date Ramiro Ball MD [address] [place] [id number] PCP - General 06/06/10 02/17/24 documented as of this encounter
--- OUTSIDE RECORDS SUMMARY | 2024-04-02 21:12 | XMS_ITS | Encounter Summary ---
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 Screening for cardiovascular condition [Z13.6] ASCVD (arteriosclerotic cardiovascular disease) [I25.10] Coronary artery disease, unspecified vessel or lesion type, unspecified whether angina present, unspecified whether deering or transplanted heart [I25.10] Procedures PRG CATH [...] CORONARY ARTERY (WRVU *) Avani Danielle MD [facility] [address] [facility] Referral ID Status Reason Start Date Expiration Date Visits Re quested Visits Authorized [id number] 1 1 Encounter Details Date Type Department Care Team (Late st Contact Info) Description 06/26/2023 8:00 AM EST - 06/26/2023 10:00 AM EST Surgery Bookkeeper [facility] [place] [address] Avani Danielle MD [facility] [place] [address] CARDIAC CATHETERIZATION Social History Tobacco Use Types [...] Johnson Tobar Patient Age: 72 y.o. Language: Turkmen Race: White Ethnicity: Not nor Admit date: [...] please contact your inpatient physician through the [facility] Labor Relations Analyst . Issues afterhours and on weekends will be handled by the ict account manager on-call. Discharge Diagnoses (Hospital Problems) and Secondary [...] Right Femoral Access ultrasound guided - 7 [place] Right Femoral Vein ultrasound guided - 5 [...] Rota juliet, we brought in a 6 Brazilian guide liner through which a 1.5 Rota [...] upsize the radial catheter to a 7 Brazilian system but were unable to put a 7 slender sheath. We then obtained right femoral access with a 7 [place] sheath. We brought a 7 Brazilian AL-1 guide catheter to the RCA. We placed a 7 Brazilian guide liner and rewiredthe RCA with a [...] Administered Date(s) Administered Ludin Geid-19 Monovalent 12Yr+ (Screen Room Operator 100mcg) 09/15/2020, 10/13/2020 Discharge Medications: Your [...] Complete By Expires Referral to Cardiac Rehab [ALU078 Custom] As directed Process Instructions: If no progress note charted, please enter Clinical details in comments. Scheduling Instructions: Questions: My question or request is: s/p PCI to RCA Discharge References/Attachments None documented in this encounter Discharge Instructions * Attachments The following attachments cannot be sent through Care Everywhere. * PCI (Percutaneous Coronary Intervention): Post-op (Turkmen) documented in this encounter Medications at Time [...] Heller RN - 06/27/2023 8:[address] [facility] Short Stay Unit Discharge Note All [...] stenosis Added automatically from request for surgery [id number] Type 2 diabetes mellitus ASCVD (arteriosclerotic cardiovascular [...] Tobar PCP: Ramiro Ball MD PCP Referring Auto Service Advisor: Joseph Lackey MD Reason for Referral: Angina [...] in cardiac rehab after his CABG at [facility] and enjoyed it. He has a stationary bike at home but has not been using it lately due to sx. He carries NTG and understands how to use it. Participation in an outpatient cardiac rehabilitation program at [facility] was discussed. He agrees to another referral to this program. The referral will be sent at discharge and the patient should be contacted by the Program within 1- 2 weeks from discharge. * Brief Op Note - Everett Guthrie MD - 06/26/2023 1:30 PM EST Images from the original note were not included. Brief Operative Note Patient Name: Johnson Tobar : [id number] MR#: [id number] Case Date: 06/26/2023 Surgeon: Surgeon(s) and Role: * Avani Danielle MD - Primary * Everett Guthrie MD - Fellow - Assisting * Jeana Stack MD - Fellow - Assisting Preoperative diagnosis: ASCVD Postoperative diagnosis: ASCVD Preliminary Cardiac Catheterization Procedure Note: Procedure(s) performed: Right Radial Access - 6 Slender Right Femoral Access ultrasound guided - 7 [place] Right Femoral Vein ultrasound guided - 5 [...] Rota juliet, we brought in a 6 Brazilian guide liner through which a 1.5 Rota [...] upsize the radial catheter to a 7 Brazilian system but were unable to put a 7 slender sheath. We then obtained right femoral access with a 7 [place] sheath. We brought a 7 Brazilian AL-1 guide catheter to the RCA. We placed a 7 Brazilian guide liner and rewiredthe RCA with a [...] 2:30 PM EST [place] [address] Susanna Cm APRN [facility] [place] [address] Scheduled Referrals Name Type Priority Associated Diagnoses [...] type, unspecified whether angina present, unspecified whether deering or transplanted heart Perc Trluml Coronary Stent W/Angio Addl Art/Branch ([id number]) 06/26/2023 9:06 AM EST Screening for cardiovascular condition ASCVD (arteriosclerotic cardiovascular disease) Coronary artery disease, unspecified vessel or lesion type, unspecified whether angina present, unspecified whether deering or transplanted heart Perc Trluml Coronary Stent W/Angio One Art/Branch([id number]) 06/26/2023 9:06 AM EST Screening for cardiovascular condition ASCVD (arteriosclerotic cardiovascular disease) Coronary artery disease, unspecified vessel or lesion type, unspecified whether angina present, unspecified whether deering or transplanted heart Cath Plmt Left Heart Cath & Arts W/Inj & Angio Img S&I ([id number]) 06/26/2023 9:06 AM EST Screening for cardiovascular condition ASCVD (arteriosclerotic cardiovascular disease) Coronary artery disease, unspecified vessel or lesion type, unspecified whether angina present, unspecified whether deering or transplanted heart POCT GLUCOSE Routine 06/26/2023 8:11 AM EST documented in this encounter Results * POCT Glucose (06/27/2023 6:42 AM EST) Glucose, POC 121 65 - 199 mg/dL [facility] Comment: Supplemental ranges: <140 mg/dL before meals <180 mg/dL all other times of the day Blood 06/27/2023 6:42 AM EST 06/27/2023 6:42 AM EST Avani Onofre MD POINT OF CARE TEST ORDERABLES [facility] [place] [address] * POCT Glucose (06/26/2023 9:17 PM EST) Glucose, POC 134 65 - 199 mg/dL [facility] Comment: Supplemental ranges: <140 mg/dL before meals <180 mg/dL all other times of the day Blood 06/26/2023 9:17 PM EST 06/26/2023 9:17 PM EST Avani Onofre MD POINT OF CARE TEST ORDERABLES [facility] [place] [address] * POCT Glucose (06/26/2023 4:43 PM EST) Glucose, POC 99 65 - 199 mg/dL [facility] Comment: Supplemental ranges: <140 mg/dL before meals <180 mg/dL all other times of the day Blood 06/26/2023 4:43 PM EST 06/26/2023 4:43 PM EST Avani Onofre MD POINT OF CARE TEST ORDERABLES Performing Organization Address City/State/[facility] Co de Phone Number [facility] [place] [address] * EKG 12 Lead (06/26/2023 1:17 PM EST) Ventricular rate 76 BPM MUSE SYSTEM Atrial Rate 76 BPM MUSE SYSTEM P-R Interval 136 ms MUSE SYSTEM QRS Duration 82 ms MUSE SYSTEM Q-T Interval 408 ms MUSE SYSTEM QTC Calculated (Bezet) 459 ms MUSE SYSTEM Calculated P [place] 35 degrees MUSE SYSTEM Calculated R [place] -2 degrees MUSE SYSTEM Calculated T [place] -43 degrees MUSE SYSTEM INTERPRETATION Normal sinus [...] Onofre MD ECG ORDERABLES Performing Organization Address City/[facility] Co de Phone Number MUSE SYSTEM * POCT Glucose (06/26/2023 1:13 PM EST) Glucose, POC 139 65 - 199 mg/dL [facility] Comment: Supplemental ranges: <140 mg/dL before meals <180 mg/dL all other times of the day Blood 06/26/2023 1:13 PM EST 06/26/2023 1:13 PM EST Avani Onofre MD POINT OF CARE TEST ORDERABLES [facility] [place] [address] * CARDIAC CATHETERIZATION (06/26/2023 12:55 PM EST) Anatomical Region Laterality Modality Other Narrative 06/26/2023 4:32 PM EST ?[facility] ? Cardiac Catheterization/Intervention Report ? Patient Name: Ekaterina, Johnson R. ? Procedure Date: 06/26/2023 ? A #: [id number] ? Primary Physician: Avani Danielle I ? Case #: [id number] ? File Name: [id number] ? Catheterization Order Number: [id number] ? [facility] ? Final Report [place], [place] ? Patient Name: ? Johnson R. Ekaterina ? ID#: ?[id number] ? : ?1950 ? Procedure Date: ? June 26, 2023 ?Case #: ? [id number] ? Room: ? 2 ? Case Physician: [...] procedure was Elective. 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 ?Recommended anti-platelet/anti-thrombotic regimen: ?Continue aspirin 81 mg daily for indefinitely. ?Continue clopidogrel 75 mg daily for 6 months then stop. ?These recommendations are made at the time of the intervention. Patient ?and provider preferences or a changing clinical situation may require ?modification of this regimen. Consult [facility] Interventional Cardiology for ?questions. ? Conclusions: ?* [...] Procedure Note Avani Danielle MD - 07/25/2023 [facility] Cardiac Catheterization/Intervention Report Patient Name: Johnson Tobar Procedure Date: 06/26/2023 A #: [id number] Primary Physician: Avani Danielle I Case #: [id number] File Name: [id number] Catheterization Order Number: [id number] [facility] FinalReport [place], [place] Patient Name: Johnson Tobar ID#:[id number] :1950 Procedure Date: June 26, 2023 Case [...] patient wasdesignated as ASA Class III. The [facility] clinical frailty scale is 4: Vulnerable. [...] diagnostic procedure was Elective. Theindication for the wharf labourer visit is stable known CAD. 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 Recommended anti-platelet/anti-thrombotic regimen: Continue aspirin 81 mg daily for indefinitely. Continue clopidogrel 75 mg daily for 6 months then stop. These recommendations are made at the time of the intervention.Patient and provider preferences or a changing clinical situation mayrequire modification of this regimen. Consult [facility] Interventional Cardiologyfor questions. Conclusions: * Obstructive disease [...] Glucose, POC 147 65 - 199 mg/dL [facility] Comment: Supplemental ranges: <140 mg/dL before meals <180 mg/dL all other times of the day Blood 06/26/2023 8:11 AM EST 06/26/2023 8:11 AM EST Avani Onofre MD POINT OF CARE TEST ORDERABLES [facility] [place] [address] documented in this encounter Visit Diagnoses Diagnosis CAD (coronary artery disease)- Primary Coronary atherosclerosis of unspecified type of vessel, deering or graft Screening for cardiovascular condition Screening for other and unspecified cardiovascular conditions ASCVD (arteriosclerotic cardiovascular disease) Unspecified cardiovascular disease Coronary artery disease, unspecified vessel or lesion type, unspecified whether angina present, unspecified whether deering or transplanted heart S/P coronary artery stent placement Postsurgical percutaneous transluminal coronary angioplasty status Screening for cardiovascular condition Screening for other and unspecified cardiovascular conditions ASCVD (arteriosclerotic cardiovascular disease) Unspecified cardiovascular disease Coronary artery disease, unspecified vessel or lesion type, unspecified whether angina present, unspecified whether deering or transplanted heart documented in this encounter Admitting Diagnoses Diagnosis CAD (coronary artery disease) Coronary atherosclerosis of unspecified type of vessel, deering or graft documented in this encounter Administered [...] 0830, STAT 0925 (Given - Provider: Luann Alvarez, RN - Comment: hung by Jeanette Rodriguez RN administered over 20 mins per MDs orders) amLODIPine (Norvasc) tablet 5 mg 5 mg, Oral, 2 TIMES DAILY, First dose on Sat06/26/23 at 1530, Until Discontinued, Routine 163 (Given - Provider: Eboni Carrion RN) 0812 (Given - Provider: Hailey Heller, MOISES) aspirin [...] Routine 1715 (Not Given - Provider: Eboni Carrion RN [...] 2113 (Given - Provider: Linsey Adair RN) 0813 (Given - Provider: Hailey Heller, MOISES) Continuous Medication Order 06/25/2023 06/26/2023 06/27/2023 sodium [...] Traci Mancera, MOISES)1100 (Given - Provider: Traci Mancera RN)1157 (Given - Provider: Traci Mancera, MOISES) glucagon (Glucagen) (1 mg/mL) injection solution 1 [...] Guthrie MD)1127 (Given - Provider: Traci Mancera, MOISES) midazolam (pf) (Versed) (1 mg/mL) multi-dose injection (CANCELED) PRN, Starting on Sat06/26/23 at 0927, Until Sat06/26/23 at 1246, Intra-Operative (Intra-Procedure), Routine 0927 (Given - Provider: Traci Mancera, RN)0941 (Given - Provider: Traci Mancera, RN)1100 (Given - Provider: Traci Mancera, RN)1157 (Given - Provider: Traci Mancera, MOISES) nitroGLYcerin 100 mcg/mL intracoronary dilution (CANCELED) PRN, [...] Routine documented in this encounter Care Teams Environmental Health Technician Relationship Specialty Start Date End Date Ramiro Ball MD [address] [place] [id number] PCP - General 06/06/10 02/17/24 documented as of this encounter
--- OUTSIDE RECORDS SUMMARY | 2024-04-02 21:12 | XMS_ITS | Encounter Summary ---
[place] [address] Care Team Providers Care Job Counselor Name Role Phone Ramiro Ball MD Primary Care Provider [phone] Reason for Visit * Auth/Cert (Routine) Specialty Diagnoses / Procedures Referred By Contac t Referred To Contact Diagnoses Encounter for screening for cardiovascular disorders Nonrheumatic aortic valve disorder, unspecified Atherosclerotic heart disease of [place] coronary artery without angina pectoris Screening for cardiovascular condition [Z13.6] Aortic valve disease [I35.9] ASCVD (arteriosclerotic cardiovascular disease) [I25.10] Procedures PRG CATH PLMT LEFT HEART CATH & ARTS W/INJ & ANGIO IMG S&I CARDIAC CATHETERIZATION CORONARY ANGIOGRAPHY; W LHC,POSSIBLE PCI (WRVU 5.6) Avani Danielle MD [facility] [place] [address] [facility] Referral ID Status Reason Start Date Expiration Date Visits Re quested Visits Authorized [id number] 1 1 Encounter Details Date Type Department Care Team (Latest Contact Info) Description 05/17/2023 10:20 AM EDT - 05/17/2023 6:58 PM EDT Hospital Encounter [place] [address] Avani Danielle MD [facility] [place] [place] [address] Screening for cardiovascular condition; Aortic valve disease; [...] by your doctor, do not take any aocx-zup-jvimpls medicines or herbal preparations without first discussing this with your doctor or pharmacist. There is the possibilityof side effect and interactions when these are combined. Follow up Care Who to Call with Questions or Problems If there are any questions or problems that you think might be related to your cardiac cath or angioplasty, contact the embossing clerk hearing care professional by calling [facility] at . documented in this encounter Medications [...] this, which is in the chart Byron Kristal Pager [phone] documented in this encounter Plan of Treatment Upcoming Encounters Date Type Department Care Team (Late st Contact Info) Description 08/27/2024 2:30 PM EST Office [place] [address] Susanna Cm APRN [facility] [place] [address] documented as of this encounter Procedures Procedure Name Priority Date/Time Associated Diagnosis Comments POCT GLUCOSE Routine 05/17/2023 5:31 PM EDT CARDIAC CATHETERIZATION Routine 05/17/2023 3:52 PM EDT Screening for cardiovascular condition Aortic valve disease ASCVD (arteriosclerotic cardiovascular disease) Cath Plmt Left Heart Cath & Arts W/Inj & Angio Img S&I ([id number]) 05/17/2023 1:41 PM EDT Screening for cardiovascular [...] * POCT Glucose (05/17/2023 5:31 PM EDT) Glucose, POC 126 65 - 199 mg/dL [facility] Comment: Supplemental ranges: <140 mg/dL before meals <180 mg/dL all other times of the day Blood 05/17/2023 5:31 PM EDT 05/17/2023 5:31 PM EDT Avani Onofre MD POINT OF CARE TEST ORDERABLES [facility] [place] [address] * CARDIAC CATHETERIZATION (05/17/2023 3:52 PM EDT) Anatomical Region Laterality Modality Other Narrative 05/18/2023 11:42 AM EDT ?[facility] ? Cardiac Catheterization/Intervention Report ? Patient Name: Ekaterina, Johnson R. ? Procedure Date: 05/17/2023 ? A #: [id number] ? Primary Physician: Avani Danielle I ? Case #: [id number] ? File Name: [id number] ? Catheterization Order Number: [id number] ? [facility] ? Final Report [place], [place] ? Patient Name: ? Johnson R. Ekaterina ? ID#: ?[id number] ? : ?1950 ? Procedure Date: ? May 17, 2023 ? Case #: ? [id number] ? Room: ? 1 ? Case Physician: ? Avani Danielle M.D. ? Start: ?14:15 ?Fellow: ? Byron Giraldo, M.D. ? Admission: ??05/17/2023 ?Everett Gtuhrie M.D. ? Referring Physician: ??Joseph Lackey M.D. [...] was Elective. 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 was via the [place] vessel and a bypass graft. ? There [...] (SUNITA Grade 2) and was via the [place] ? vessel and collaterals from the RCA. [...] Procedure Note Avani Danielle MD - 05/18/2023 [facility] Cardiac Catheterization/Intervention Report Patient Name: Johnson Tobar Procedure Date: 05/17/2023 A #: [id number] Primary Physician: Avani Danielle I Case #: [id number] File Name: [id number] Catheterization Order Number: [id number] [facility] FinalReport [place], [place] Patient Name: Johnson Tobar ID#:[id number] :1950 Procedure Date: May 17, 2023 Case [...] was designated as ASA Class II. The [facility] clinical frailtyscale is 3: Managing Well. [...] procedure was Elective. 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 There was [...] (SUNITA Grade 2) and was via the [place] vessel and collaterals from the RCA. Bypass [...] (Bezet) 432 ms MUSE SYSTEM Calculated P Barnett 24 degrees MUSE SYSTEM Calculated R Barnett -9 degrees MUSE SYSTEM Calculated T Barnett -7 degrees MUSE SYSTEM INTERPRETATION Sinus rhythm [...] Glucose, POC 122 65 - 199 mg/dL [facility] Comment: Supplemental ranges: <140 mg/dL before meals <180 mg/dL all other times of the day Blood 05/17/2023 11:5 7 AM EDT 05/17/2023 11:57 AM EDT Avani Onofre MD POINT OF CARE TEST ORDERABLES Performing Organization Address City/[facility]/[place] [address] * (ABNORMAL) Differential, Automated (05/17/2023 10:31 AM EDT) Neutrophil % 55.5 % [facility] Neutrophil Absolute 4.98 1.70 - 6.10 x10(3)/mc L [facility] Lymph % 25.6 % [facility] Lymphocytes Abs 2.3 0.9 - 3.2 x10(3)/ L [facility] Monocyte % 13.4 % [facility] Monocyte Abs 1.2(H) 0.3 - 0.9 x10(3)/[facility] Eos % 4.1 % [facility] Eosinophils Abs 0.4 0.0 - 0.4 x10(3)/ L [facility] Basophil % 1.1 % [facility] Baso Absolute 0.1 0.0 - 0.1 x10(3)/ L [facility] Immature Gran % 0.30 % [facility] Comment: Immature granulocytes(IG's)percentage and absolute count will include metamyelocytes, myelocytes, and promyelocytes. Blood smears from CBCs yielding IG's will be scanned manually for concordance. If this scan disagrees with the automated IG or if promyelocytes are noted, a manual differential will be performed. Immature Gran Absolute 0.03 0.00 - 0.04 x10(3)/mc L [facility] Blood 05/17/2023 10:3 1 AM EDT 05/17/2023 10:36 AM EDT Narrative Resulting Agency Comment Spec In Lab oJhnathan KISER HEMATOLOGY ORDERABLE S Performing Organization Address City/[facility]/ZIP Co de Phone Number [facility] [place] [address] * (ABNORMAL) Hemogram (05/17/2023 10:31 AM EDT) White Blood Cell 9.0 4.0 - 9.5 x10(3)/mc L [facility] Red Blood Cell 5.03 4.58 - 5.54 x10(6)/mc L [facility] Hemoglobin 13.3(L) 13.7 - 16.5 g/dL [facility] Hematocrit 41.2 40.5 - 48.5 % [facility] Mean Cell Volume 81.9(L) 82.9 - 93.1 fL [facility] Mean Cell Hemoglobin 26.4(L) 27.5 - 32.1 pg [facility] Mean Cell Hemoglobin Concentration 32.3 32.0 - 35.7 g/dL [facility] Platelet 167 145 - 357 x10(3)/mc L [facility] RDW Standard Deviation 43.8 36.0 - 45.0 fL [facility] RDW coefficient of variation 14.7(H) 11.4 - 13.8 % [facility] Mean Platelet Volume 11.5 7.6 - 12.9 fL [facility] NRBC% auto 0.0 % [facility] NRBC Absolute 0.000 0.000 - 0.000 x10(3)/ L [facility] Blood 05/17/2023 10:3 1 AM EDT 05/17/2023 10:36 AM EDT Narrative Resulting Agency Comment Spec In Lab Johnathan KISER HEMATOLOGY ORDERABLE S Performing Organization Address City/State/[facility] Co de Phone Number [facility] [place] [address] * Basic Metabolic Panel (non-fasting) (05/17/2023 10:31 AM EDT) Glucose 151 65 - 199 mg/dL [facility] Comment:Diabetes: >=200 mg/d L plus symptoms Blood Urea Nitrogen 18 10 - 20 mg/dL [facility] Creatinine 1.20 0.80 - 1.50 mg/dL [facility] Sodium 135 135 - 145 mmol/L [facility] Potassium 4.5 3.5 - 5.0 mmol/L [facility] Comment: Please note: ??Patients with WBC >100,000 may have falsely elevated Potassium levels. ??For accurate Potassium quantification in these patients send serum separator tube (gold top) for subsequent determinations. ??Contact the Clinical Chemistry Laboratory if there are any questions. Chloride 99 98 - 107 mmol/L [facility] Carbon Dioxide 23 22 - 31 mmol/L [facility] Anion Gap 13 5 - 15 mmol/L [facility] Calcium 9.9 8.5 - 10.5 mg/dL [facility] Est Glomerular Filtration Rate 64 >=60 mL/min/1. 73 m?? [facility] Comment: This patient's estimated GFR [...] Lab Avani Onofre MD CHEMISTRY ORDERABLE S [facility] [place] [address] documented in this encounter Visit Diagnoses Diagnosis CAD (coronary artery disease)- Primary Coronary atherosclerosis of unspecified type of vessel, [place] or graft Screening for cardiovascular condition Screening [...] Coronary atherosclerosis of unspecified type of vessel, [place] or graft documented in this encounter Administered [...] Mancera RN)1421 (Given - Provider: Traci Mancera RN) documented in this encounter Care Teams Job Counselor Relationship Specialty Start Date End Date Ramiro Ball MD [address] [place] [id number] PCP - General 06/06/10 02/17/24 documented as of this encounter
--- OUTSIDE RECORDS SUMMARY | 2024-04-02 21:12 | XMS_ITS | Encounter Summary ---
Author Organization [facility] [place] [address] Care Team Providers Care Project Reservoir Engineer Name Role Phone Tamia Tsai Primary Care Provider [phone] Encounter Details Date Type Department Care Team (Late st Contact Info) Description 02/23/2024 External [place] [id number] Social History Tobacco Use Types Packs/Day Years Used Date Smoking Tobacco: Never Smokeless Tobacco: Never Alcohol Use Standard Drinks/Week Comments Not Currently 0 (1 standard drink = 0.6 oz pur e alcohol) [facility] Utilities Answer Date Recorded In the past 12 months has [employer], gas, oil, or water [employer] threatened to shut off services in your [...] 2:30 PM EST [place] [address] Susanna Cm APRN [facility] [place] [address] documented as of this encounter Procedures Procedure Name Priority Date/Time Associated Diagnosis Comments MISC EXTERNAL CARDIOLOGY RESULT Routine 02/23/2024 10:57 AM EDT documented in this encounter Results * External Cardiology Result (02/23/2024 10:57 AM EDT) Anatomical Region Laterality Modality Other Historical Provider EXTERNAL CARDIOLO GY RESULT documented in this encounter Visit Diagnoses Not on filedocumented in this encounter Care Teams Project Reservoir Engineer Relationship Specialty Start Date End Date Tamia Tsai PA [address] [place] [phone] PCP - General Family Medicine 02/18/24 documented as of this encounter
--- OUTSIDE RECORDS SUMMARY | 2024-04-02 21:12 | XMS_ITS | Encounter Summary ---
Author Organization [facility] [place] [address] Care Team Providers Care Pickling Machine Operator Name Role Phone Tamia Tsai Primary Care Provider [phone] Encounter Details Date Type Department Care Team (Late st Contact Info) Description 02/23/2024 Telephone Cardiology at [address] [address] Bryant Sher PA [facility] [place] [address] Social History Tobacco Use Types Packs/Day Years Used Date Smoking Tobacco: Never Smokeless Tobacco: Never Alcohol Use Standard Drinks/Week Comments Not Currently 0 (1 standard drink = 0.6 oz pur e alcohol) [facility] Utilities Answer Date Recorded In the past 12 months has e [employer], gas, oil, or water [employer] threatened to shut off services in your [...] any time in the past 12 m [facility], were you homeless or living in a prison (including now)? No 02/24/2024 DH IPV Inpatient [...] Contact time: 11:07 AM Referring Referring Facility [facility] Referred by Ariel Omer MD [address] [place] [address] Past Medical History: CAD s/p CABGx3 MCKEON->LAD, [...] 05/17/2023- (elective outpatient for angina) 3vCAD, patent CMKEON-LAD, obstructive ds of SVG (y-type) to D2/OM1, [...] is trace mitral regurgitation present. OSH Interventions: [id number], Heparin Assessment & Plan: Johnson Tobar is a 73 y.o. male w/ history of cad s/p cabg x3 (MCKEON->LAD, Seq SVG->OM1->D1) + AVR 23 mm Inspriris bioprosthesis for severe 06/13/2020, mid and proximal RCA PCI 3known residual left system disease of SVG to OM1-D1 occluded at origin and [place] significant calcific disease of ostial proximal left [...] in management. Bryant Sher PA-C Access Pager [phone] 02/23/2024 documented in this encounter Plan of Treatment Upcoming Encounters Date Type Department Care Team (Late st Contact Info) Description 08/27/2024 2:30 PM EST Office [place] [address] Susanna Cm, DENITRATOR [facility] [place] [address] documented as of this encounter Visit Diagnoses Not on filedocumented in this encounter Care Teams Pickling Machine Operator Relationship Specialty Start Date End Date Tamia Tsai PA [address] [place] [phone] PCP - General Family Medicine 02/18/24 documented as of this encounter
--- OUTSIDE RECORDS SUMMARY | 2024-04-02 21:12 | XMS_ITS | Encounter Summary ---
[place] [address] Care Team Providers Care Hospitality Manager Name Role Phone Ramiro Ball MD Primary Care Provider [phone] Reason for Visit * Auth/Cert (Routine) Specialty Diagnoses / Procedures Referred By Contac t Referred To Contact Diagnoses Encounter for screening for cardiovascular disorders Nonrheumatic aortic valve disorder, unspecified Atherosclerotic heart disease of [place] coronary artery without angina pectoris Screening for cardiovascular condition [Z13.6] Aortic valve disease [I35.9] ASCVD (arteriosclerotic cardiovascular disease) [I25.10] Procedures PRG CATH PLMT LEFT HEART CATH & ARTS W/INJ & ANGIO IMG S&I CARDIAC CATHETERIZATION CORONARY ANGIOGRAPHY; W LHC,POSSIBLE PCI (WRVU 5.6) Avani Danielle MD [facility] [place] [address] [facility] Referral ID Status Reason Start Date Expiration Date Visits Re quested Visits Authorized [id number] 1 1 Encounter Details Date Type Department Care Team (Latest Contact Info) Description 06/12/2023 11:00 AM [facility] Hospital Encounter Same Day Admit [facility] [place] [address] Avani Danielle MD [facility] [place] [address] Coronary artery disease, unspecified vessel or lesion type, unspecified whether angina present, unspecified whether [place] or transplanted heart Social History Tobacco Use Types Packs/Day Years Used Date Smoking Tobacco: Never Smokeless Tobacco: Never Alcohol Use Standard Drinks/Week Comments Not Currently 0 (1 standard drink = 0.6 oz pur e alcohol) [facility] Utilities Answer Date Recorded In the past 12 months has th e 1,2,3 [employer], gas, oil, or water [employer] threatened to shut off services in your [...] any time in the past 12 m [facility], were you homeless or living in a [facility] (including now)? No 03/18/2024 IPV Inpatient Questions [...] 2:30 PM EST [place] [address] Susanna Cm APRN [facility] [address] Scheduled Orders Name Type Priority Associated Diagnoses Orde r Schedule Cardiac Catheterization Cardiac Cath Routine Coronary artery disease, unspecified vessel or lesion type, unspecified whether angina present, unspecified whether [place] or transplanted heart One Time for 1 [...] 10:06 AM EST) Neutrophil % 62.7 % [facility] Neutrophil Absolute 4.25 1.70 - 6.10 x10(3)/[facility] Lymph % 21.4 % [facility] Lymphocytes Abs 1.4 0.9 - 3.2 x10(3)/[facility] Monocyte % 10.9 % [facility] Monocyte Abs 0.7 0.3 - 0.9 x10(3)/[facility] Eos % 2.8 % [facility] Eosinophils Abs 0.2 0.0 - 0.4 x10(3)/[facility] Basophil % 1.8 % [facility] Baso Absolute 0.1 0.0 - 0.1 x10(3)/[facility] Immature Gran % 0.40 % [facility] Comment: Immature granulocytes(IG's)percentage and absolute count will include metamyelocytes, myelocytes, and promyelocytes. Blood smears from CBCs yielding IG's will be scanned manually for concordance. If this scan disagrees with the automated IG or if promyelocytes are noted, a manual differential will be performed. Immature Gran Absolute 0.03 0.00 - 0.04 x10(3)/mcL [facility] Blood 06/12/2023 10:0 6 AM EST 06/12/2023 10:16 AM EST Narrative Resulting Agency Comment Spec In Lab Everett Guthrie MD HEMATOLOGY ORDERABLE S [facility] [place] [address] * (ABNORMAL) Hemogram (06/12/2023 10:06 AM EST) White Blood Cell 6.8 4.0 - 9.5 x10(3)/mc L [facility] Red Blood Cell 4.67 4.58 - 5.54 x10(6)/mc L [facility] Hemoglobin 12.4(L) 13.7 - 16.5 g/dL [facility] Hematocrit 38.1(L) 40.5 - 48.5 % [facility] Mean Cell Volume 81.6(L) 82.9 - 93.1 fL [facility] Mean Cell Hemoglobin 26.6(L) 27.5 - 32.1 pg [facility] Mean Cell Hemoglobin Concentration 32.5 32.0 - 35.7 g/dL [facility] Platelet 181 145 - 357 x10(3)/mc L [facility] RDW Standard Deviation 48.7(H) 36.0 - 45.0 fL [facility] RDW coefficient of variation 16.6(H) 11.4 - 13.8 % [facility] Mean Platelet Volume 11.7 7.6 - 12.9 fL [facility] NRBC% auto 0.0 % [facility] NRBC Absolute 0.000 0.000 - 0.000 x10(3)/mc L [facility] Blood 06/12/2023 10:0 6 AM EST 06/12/2023 10:16 AM EST Narrative Resulting Agency Comment Spec In Lab Everett Guthrie MD HEMATOLOGY ORDERABLE S [facility] [place] [address] * (ABNORMAL) BMP w/fasting Glucose (06/12/2023 10:06 AM EST) Glucose Fasting 152(H) 65 - 99 mg/dL [facility] Comment: ?Fasting* Glucose Interpretive Criteria [...] of Diabetes Mellitus, Position Statement from the [place] [employer]. ??Diabetes Care, Volume 33, Supplement 1, Jul 2009 Blood Urea Nitrogen 12 10 - 20 mg/dL [facility] Creatinine 0.99 0.80 - 1.50 mg/dL [facility] Sodium 137 135 - 145 mmol/L [facility] Potassium 4.9 3.5 - 5.0 mmol/L [facility] Comment: Please note: ??Patients with WBC >100,000 may have falsely elevated Potassium levels. ??For accurate Potassium quantification in these patients send serum separator tube (gold top) for subsequent determinations. ??Contact the Clinical Chemistry Laboratory if there are any questions. Chloride 99 98 - 107 mmol/L [facility] Carbon Dioxide 26 22 - 31 mmol/L [facility] Anion Gap 12 5 - 15 mmol/L [facility] Calcium 9.7 8.5 - 10.5 mg/dL [facility] Est Glomerular Filtration Rate 80 >=60 mL/min/1. 73 m?? [facility] Comment: This patient's estimated [...] MD CHEMISTRY ORDERABLE S Performing Organization Address City/State/[facility] Co de Phone Number [facility] [place] [address] documented in this encounter Visit Diagnoses Diagnosis Coronary artery disease, unspecified vessel or lesion type, unspecified whether angina present, unspecified whether [place] or transplanted heart documented in this encounter Additional Health Concerns Infection Onset Date Last Indicated Resolved Time Rule Out Respiratory 03/17/2024 03/18/2024 024 1:29 AM EDT Rule Out COVID-19 03/17/2024 03/18/2024 03/18/2024 1:29 AM EDT documented as of this encounter Care Teams Hospitality Manager Relationship Specialty Start Date End Date Ramiro Ball MD [address] [place] [id number] PCP - General 06/06/10 02/17/24 documented as of this encounter
--- OUTSIDE RECORDS SUMMARY | 2024-04-02 21:12 | XMS_ITS | Encounter Summary ---
Author Organization [facility] Address [facility] [place] [address] Care Team Providers Care Outside Maintenance Worker Name Role Phone Ramiro Ball MD Primary Care Provider [phone] Encounter Details Date Type Department Care Team (Latest Contact Info) Description 07/21/2020 12:02 PM EST - 07/21/2020 11:59 PM EST Hospital Encounter XRay at [address] [place] [address] Chun Wiley MD [facility] [place] [address] S/P CABG (coronary artery bypass graft); S/P [...] 2:30 PM EST Office [place] [address] Susanna Cm APRN [facility] [place] [address] documented as of this encounter Procedures Procedure [...] means documented in this encounter Care Teams Outside Maintenance Worker Relationship Specialty Start Date End Date Ramiro Ball MD [address] [place] [address] PCP - General 06/06/10 02/17/24 documented as of this encounter
--- OUTSIDE RECORDS SUMMARY | 2024-04-02 21:12 | XMS_ITS | Encounter Summary ---
[place] [address] Care Team Providers Care Critical Systems Technician Name Role Phone Ramiro Ball MD Primary Care Provider [phone] Reason for Visit * Auth/Cert (Routine) Specialty Diagnoses / Procedures Referred By Contac t Referred To Contact Diagnoses Encounter for screening for cardiovascular disorders Nonrheumatic aortic valve disorder, unspecified Atherosclerotic heart disease of eagle coronary artery without angina pectoris Screening for cardiovascular condition [Z13.6] Aortic valve disease [I35.9] ASCVD (arteriosclerotic cardiovascular disease) [I25.10] Procedures PRG CATH PLMT LEFT HEART CATH & ARTS W/INJ & ANGIO IMG S&I CARDIAC CATHETERIZATION CORONARY ANGIOGRAPHY; W LHC,POSSIBLE PCI (WRVU 5.6) Avani Danielle MD [facility] [place] [address] [facility] Referral ID Status Reason Start Date Expiration Date Visits Re quested Visits Authorized [id number] 1 1 Encounter Details Date Type Department Care Team (Late st Contact Info) Description 06/12/2023 11:00 AM EST - 06/12/2023 12:30 PM EST [place] [address] Avani Danielle MD [facility] [place] [address] CARDIAC CATHETERIZATION Social History Tobacco Use Types [...] 2:30 PM [place] [address] Susanna Cm APRN [facility] [place] [address] Scheduled Orders Name Type Priority Associated Diagnoses Orde r Schedule Cardiac Catheterization Cardiac Cath Routine Coronary artery disease, unspecified vessel or lesion type, unspecified whether angina present, unspecified whether eagle or transplanted heart One Time for 1 [...] 10:06 AM EST) Neutrophil % 62.7 % [facility] Neutrophil Absolute 4.25 1.70 - 6.10 x10(3)/[facility] LABORATORY Lymph % 21.4 % [facility] Lymphocytes Abs 1.4 0.9 - 3.2 x10(3)/[facility] LABORATORY Monocyte % 10.9 % [facility] ITAL LABORATORY Monocyte Abs 0.7 0.3 - 0.9 x10(3)/[facility] LABORATORY Eos % 2.8 % [facility] Eosinophils Abs 0.2 0.0 - 0.4 x10(3)/[facility] LABORATORY Basophil % 1.8 % [facility] ITAL LABORATORY Baso Absolute 0.1 0.0 - 0.1 x10(3)/[facility] LABORATORY Immature Gran % 0.40 % [facility] Comment: Immature granulocytes(IG's)percentage and absolute count will include metamyelocytes, myelocytes, and promyelocytes. Blood smears from CBCs yielding IG's will be scanned manually for concordance. If this scan disagrees with the automated IG or if promyelocytes are noted, a manual differential will be performed. Immature Gran Absolute 0.03 0.00 - 0.04 x10(3)/[facility] LABORATORY Blood 06/12/2023 10:0 6 AM EST 06/12/2023 10:16 AM EST Narrative Resulting Agency Comment Spec In Lab Everett Guthrie MD HEMATOLOGY ORDERABLE S [facility] [place] [address] * (ABNORMAL) Hemogram (06/12/2023 10:06 AM EST) White Blood Cell 6.8 4.0 - 9.5 x10(3)/mc L [facility] Red Blood Cell 4.67 4.58 - 5.54 x10(6)/mc L [facility] Hemoglobin 12.4(L) 13.7 - 16.5 g/dL [facility] Hematocrit 38.1(L) 40.5 - 48.5 % [facility] Mean Cell Volume 81.6(L) 82.9 - 93.1 fL [facility] Mean Cell Hemoglobin 26.6(L) 27.5 - 32.1 pg [facility] Mean Cell Hemoglobin Concentration 32.5 32.0 - 35.7 g/dL [facility] Platelet 181 145 - 357 x10(3)/mc L [facility] RDW Standard Deviation 48.7(H) 36.0 - 45.0 fL [facility] RDW coefficient of variation 16.6(H) 11.4 - 13.8 % [facility] Mean Platelet Volume 11.7 7.6 - 12.9 fL [facility] NRBC% auto 0.0 % [facility] ITAL LABORATORY NRBC Absolute 0.000 0.000 - 0.000 x10(3)/mc L [facility] Blood 06/12/2023 10:0 6 AM EST 06/12/2023 10:16 AM EST Narrative Resulting Agency Comment Spec In Lab Everett Guthrie MD HEMATOLOGY ORDERABLE S [facility] [place] [address] * (ABNORMAL) BMP w/fasting Glucose (06/12/2023 10:06 AM EST) Glucose Fasting 152(H) 65 - 99 mg/dL [facility] Comment: ?Fasting* Glucose Interpretive Criteria Normal [...] of Diabetes Mellitus, Position Statement from the [place] [employer]. ??Diabetes Care, Volume 33, Supplement 1, Jul 2009 Blood Urea Nitrogen 12 10 - 20 mg/dL [facility] Creatinine 0.99 0.80 - 1.50 mg/dL [facility] Sodium 137 135 - 145 mmol/L [facility] Potassium 4.9 3.5 - 5.0 mmol/L [facility] Comment: Please note: ??Patients with WBC >100,000 may have falsely elevated Potassium levels. ??For accurate Potassium quantification in these patients send serum separator tube (gold top) for subsequent determinations. ??Contact the Clinical Chemistry Laboratory if there are any questions. Chloride 99 98 - 107 mmol/L [facility] Carbon Dioxide 26 22 - 31 mmol/L [facility] Anion Gap 12 5 - 15 mmol/L [facility] Calcium 9.7 8.5 - 10.5 mg/dL [facility] Est Glomerular Filtration Rate 80 >=60 mL/min/1. 73 m?? [facility] Comment: This patient's estimated GFR [...] Lab Avani Onofre MD CHEMISTRY ORDERABLE S [facility] [place] [id number] documented in this encounter Visit Diagnoses Diagnosis Coronary artery disease, unspecified vessel or lesion type, unspecified whether angina present, unspecified whether eagle or transplanted heart documented in this encounter Additional Health Concerns Infection Onset Date Last Indicated Resolved Time Rule Out Respiratory 03/17/2024 03/18/2024 024 1:29 AM EDT Rule Out COVID-19 03/17/2024 03/18/2024 03/18/2024 1:29 AM EDT documented as of this encounter Care Teams Critical Systems Technician Relationship Specialty Start Date End Date Ramiro Ball MD [address] [place] [id number] PCP - General 06/06/10 02/17/24 documented as of this encounter
--- OUTSIDE RECORDS SUMMARY | 2024-04-02 21:12 | XMS_ITS | Encounter Summary ---
[place] [address] Care Team Providers Care Personal Care Service Provider Name Role Phone Ramiro Ball MD Primary Care Provider [phone] Encounter Details Date Type Department Care Team (Late st Contact Info) Description 06/13/2023 [place] [phone] Johnathan Kothari PA [facility] [place] [address] Screening for cardiovascular condition; ASCVD (arteriosclerotic cardiovascular disease); Coronary artery disease, unspecified vessel or lesion type, unspecified whether angina present, unspecified whether lovelock or transplanted heart Social History Tobacco Use [...] 2:30 PM [place] [address] Susanna Cm, OUTDOOR ADVENTURE LEADER [facility] [address] documented as of this encounter Visit Diagnoses Diagnosis Screening for cardiovascular condition Screening for other and unspecified cardiovascular conditions ASCVD (arteriosclerotic cardiovascular disease) Unspecified cardiovascular disease Coronary artery disease, unspecified vessel or lesion type, unspecified whether angina present, unspecified whether lovelock or transplanted heart documented in this encounter Care Teams Personal Care Service Provider Relationship Specialty Start Date End Date Ramiro Ball MD [address] [place] [phone] PCP - General 06/06/10 02/17/24 documented as of this encounter
--- OUTSIDE RECORDS SUMMARY | 2024-04-02 21:12 | XMS_ITS | Encounter Summary ---
Author Organization [place] [address] Care Team Providers Care Project Control Manager Name Role Phone Ramiro Ball MD Primary Care Provider [phone] Encounter Details Date Type Department Care Team (Latest Contact Info) Description 06/12/2023 9:11 AM EST - 06/12/2023 11:59 PM [facility] Hospital [place] [address] Discharge Disposition: Home Social History Tobacco Use [...] 2:30 PM EST [place] [address] Susanna Cm, AGRICULTURAL AGENT [facility] [place] [address] documented as of this encounter Visit Diagnoses Not on filedocumented in this encounter Care Teams Project Control Manager Relationship Specialty Start Date End Date Ramiro Ball MD [address] [place] [phone] PCP - General 06/06/10 02/17/24 documented as of this encounter
--- OUTSIDE RECORDS SUMMARY | 2024-04-02 21:12 | XMS_ITS | Encounter Summary ---
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 Screening for cardiovascular condition [Z13.6] Aortic valve disease [I35.9] ASCVD (arteriosclerotic cardiovascular disease) [I25.10] Procedures PRG CATH PLMT LEFT HEART CATH & ARTS W/INJ & ANGIO IMG S&I CARDIAC CATHETERIZATION CORONARY ANGIOGRAPHY; W LHC,POSSIBLE PCI (WRVU 5.6) Avani Danielle MD [facility] [place] [address] [facility] Referral ID Status Reason Start Date Expiration Date Visits Re quested Visits Authorized [id number] 1 1 Encounter Details Date Type Department Care Team (Late st Contact Info) Description 05/17/2023 11:30 AM EDT - 05/17/2023 12:30 PM [place] [address] Avani Danielle MD [facility] [place] [address] CARDIAC CATHETERIZATION Social History Tobacco Use Types [...] by your doctor, do not take any movx-zah-jmxrttn medicines or herbal preparations without first discussing this with your doctor or pharmacist. There is the possibilityof side effect and interactions when these are combined. Follow up Care Who to Call with Questions or Problems If there are any questions or problems that you think might be related to your cardiac cath or angioplasty, contact the welding foreman continuous absorption process operator by calling [facility] at . documented in this encounter [...] is in the chart Byron Giraldo Pager [phone] documented in this encounter Plan of Treatment Upcoming Encounters Date Type Department Care Team (Late st Contact Info) Description 08/27/2024 2:30 PM EST Office [place] [address] Susanna Cm APRN [facility] [place] [address] documented as of this encounter Procedures Procedure Name Priority Date/Time Associated Diagnosis Comments POCT GLUCOSE Routine 05/17/2023 5:31 PM EDT CARDIAC CATHETERIZATION Routine 05/17/2023 3:52 PM EDT Screening for cardiovascular condition Aortic valve disease ASCVD (arteriosclerotic cardiovascular disease) Cath Plmt Left Heart Cath & Arts W/Inj & Angio Img S&I ([id number]) 05/17/2023 1:41 PM EDT Screening for cardiovascular [...] Glucose, POC 126 65 - 199 mg/dL [facility] Comment: Supplemental ranges: <140 mg/dL before meals <180 mg/dL all other times of the day Blood 05/17/2023 5:31 PM EDT 05/17/2023 5:31 PM EDT Avani Onofre MD POINT OF CARE TEST ORDERABLES [facility] [place] [address] * CARDIAC CATHETERIZATION (05/17/2023 3:52 PM EDT) Anatomical Region Laterality Modality Other Narrative 05/18/2023 11:42 AM EDT ?[facility] ? Cardiac Catheterization/Intervention Report ? Patient Name: Ekaterina, Johnson R. ? Procedure Date: 05/17/2023 ? A #: [id number] ? Primary Physician: Avani Danielle I ? Case #: [id number] ? File Name: [id number] ? Catheterization Order Number: [id number] ? [facility] ? Final Report [place], [place] ? Patient Name: ? Johnson R. Ekaterina ? ID#: ?[id number] ? : ?1950 ? Procedure Date: ? May 17, 2023 ? Case #: ? [id number] ? Room: ? 1 ? Case Physician: [...] procedure was Elective. The indication for ?the concrete mixing plant laborer visit is new onset angina less [...] was normal and ? was via the ramona vessel and a bypass graft. ? There [...] (SUNITA Grade 2) and was via the ramona ? vessel and collaterals from the RCA. [...] Procedure Note Avani Danielle MD - 05/18/2023 [facility] Cardiac Catheterization/Intervention Report Patient Name: Johnson TobarTyra Procedure Date: 05/17/2023 A #: [id number] Primary Physician: Avani Danielle I Case #: [id number] File Name: [id number] Catheterization Order Number: [id number] [facility] FinalReport [place], [place] Patient Name: Johnson Tobar ID#:[id number] :1950 Procedure Date: May 17, 2023 Case [...] was designated as ASA Class II. The [facility] clinical frailtyscale is 3: Managing [...] diagnostic procedure was Elective. Theindication for the concrete mixing plant laborer visit is new onset angina less [...] Distal flow was normaland was via the ramona vessel and a bypass graft. There was [...] (SUNITA Grade 2) and was via the ramona vessel and collaterals from the RCA. Bypass [...] (Bezet) 432 ms MUSE SYSTEM Calculated P Enterprise 24 degrees MUSE SYSTEM Calculated R Enterprise -9 degrees MUSE SYSTEM Calculated T Enterprise -7 degrees MUSE SYSTEM INTERPRETATION Sinus rhythm [...] Glucose, POC 122 65 - 199 mg/dL [facility] Comment: Supplemental ranges: <140 mg/dL before meals <180 mg/dL all other times of the day Blood 05/17/2023 11:5 7 AM EDT 05/17/2023 11:57 AM EDT Avani Onofre MD POINT OF CARE TEST [place] [address] * (ABNORMAL) Differential, Automated (05/17/2023 10:31 AM EDT) Neutrophil % 55.5 % [facility] LABORATORY Neutrophil Absolute 4.98 1.70 - 6.10 x10(3)/mc L [facility] Lymph % 25.6 % [facility] Lymphocytes Abs 2.3 0.9 - 3.2 x10(3)/mc L [facility] Monocyte % 13.4 % [facility] ITAL LABORATORY Monocyte Abs 1.2(H) 0.3 - 0.9 x10(3)/ L [facility] Eos % 4.1 % [facility] Eosinophils Abs 0.4 0.0 - 0.4 x10(3)/ L [facility] Basophil % 1.1 % [facility] Baso Absolute 0.1 0.0 - 0.1 x10(3)/mc L [facility] Immature Gran % 0.30 % [facility] Comment: Immature granulocytes(IG's)percentage and absolute count will include metamyelocytes, myelocytes, and promyelocytes. Blood smears from CBCs yielding IG's will be scanned manually for concordance. If this scan disagrees with the automated IG or if promyelocytes are noted, a manual differential will be performed. Immature Gran Absolute 0.03 0.00 - 0.04 x10(3)/mc L [facility] Blood 05/17/2023 10:3 1 AM EDT 05/17/2023 10:36 AM EDT Narrative Resulting Agency Comment Spec In Lab Johnathan KISER HEMATOLOGY [place] [address] * (ABNORMAL) Hemogram (05/17/2023 10:31 AM EDT) White Blood Cell 9.0 4.0 - 9.5 x10(3)/mc L [facility] Red Blood Cell 5.03 4.58 - 5.54 x10(6)/mc L [facility] Hemoglobin 13.3(L) 13.7 - 16.5 g/dL [facility] Hematocrit 41.2 40.5 - 48.5 % [facility] Mean Cell Volume 81.9(L) 82.9 - 93.1 fL [facility] Mean Cell Hemoglobin 26.4(L) 27.5 - 32.1 pg [facility] Mean Cell Hemoglobin Concentration 32.3 32.0 - 35.7 g/dL [facility] Platelet 167 145 - 357 x10(3)/mc L [facility] RDW Standard Deviation 43.8 36.0 - 45.0 fL [facility] RDW coefficient of variation 14.7(H) 11.4 - 13.8 % [facility] Mean Platelet Volume 11.5 7.6 - 12.9 fL [facility] NRBC% auto 0.0 % [facility] ITAL LABORATORY NRBC Absolute 0.000 0.000 - 0.000 x10(3)/ L [facility] Blood 05/17/2023 10:3 1 AM EDT 05/17/2023 10:36 AM EDT Narrative Resulting Agency Comment Spec In Lab Johnathan KISER HEMATOLOGY ORDERABLE S Performing Organization Address City/State/[facility] Co de Phone Number [facility] [place] [address] * Basic Metabolic Panel (non-fasting) (05/17/2023 10:31 AM EDT) Glucose 151 65 - 199 mg/dL [facility] Comment:Diabetes: >=200 mg/d L plus symptoms Blood Urea Nitrogen 18 10 - 20 mg/dL [facility] Creatinine 1.20 0.80 - 1.50 mg/dL [facility] Sodium 135 135 - 145 mmol/L [facility] Potassium 4.5 3.5 - 5.0 mmol/L [facility] Comment: Please note: ??Patients with WBC >100,000 may have falsely elevated Potassium levels. ??For accurate Potassium quantification in these patients send serum separator tube (gold top) for subsequent determinations. ??Contact the Clinical Chemistry Laboratory if there are any questions. Chloride 99 98 - 107 mmol/L [facility] Carbon Dioxide 23 22 - 31 mmol/L [facility] Anion Gap 13 5 - 15 mmol/L [facility] Calcium 9.9 8.5 - 10.5 mg/dL [facility] Est Glomerular Filtration Rate 64 >=60 mL/min/1. 73 m?? [facility] Comment: This patient's estimated GFR [...] MD CHEMISTRY ORDERABLE S Performing Organization Address City/State/[facility] Co de Phone Number [facility] [place] [address] documented in this encounter Visit Diagnoses Diagnosis [...] Coronary atherosclerosis of unspecified type of vessel, ramona or graft documented in this encounter Administered [...] RN) documented in this encounter Care Teams Specimen Collector Relationship Specialty Start Date End Date Ramiro Ball MD [address] [place] [phone] PCP - General 06/06/10 02/17/24 documented as of this encounter
--- OUTSIDE RECORDS SUMMARY | 2024-04-02 21:12 | XMS_ITS | Encounter Summary ---
[place] [address] Care Team Providers Care Canceling Machine Operator Name Role Phone Ramiro Ball MD Primary Care Provider [phone] Encounter Details Date Type Department Care Team (Late st Contact Info) Description 05/07/2023 Orders [place] [phone] Johnathan Kothari PA [facility] [place] [place] [address] Screening for cardiovascular condition; Aortic valve disease; [...] 2:30 PM [place] [address] Susanna Cm, FLAT LOCK MACHINE OPERATOR [facility] [place] [address] documented as of this encounter Results * Basic Metabolic Panel (non-fasting) (05/17/2023 10:31 AM EDT) Glucose 151 65 - 199 mg/dL [facility] Comment:Diabetes: >=200 mg/d L plus symptoms Blood Urea Nitrogen 18 10 - 20 mg/dL [facility] Creatinine 1.20 0.80 - 1.50 mg/dL [facility] Sodium 135 135 - 145 mmol/L [facility] Potassium 4.5 3.5 - 5.0 mmol/L [facility] Comment: Please note: ??Patients with WBC >100,000 may have falsely elevated Potassium levels. ??For accurate Potassium quantification in these patients send serum separator tube (gold top) for subsequent determinations. ??Contact the Clinical Chemistry Laboratory if there are any questions. Chloride 99 98 - 107 mmol/L [facility] Carbon Dioxide 23 22 - 31 mmol/L [facility] Anion Gap 13 5 - 15 mmol/L [facility] Calcium 9.9 8.5 - 10.5 mg/dL [facility] Est Glomerular Filtration Rate 64 >=60 mL/min/1. 73 m?? [facility] Comment: This patient's estimated GFR was [...] Lab Avani Onofre MD CHEMISTRY ORDERABLE S [facility] [address] documented in this encounter Visit Diagnoses Diagnosis Screening for cardiovascular condition Screening for other and unspecified cardiovascular conditions Aortic valve disease Aortic valve disorders ASCVD (arteriosclerotic cardiovascular disease) Unspecified cardiovascular disease documented in this encounter Care Teams Canceling Machine Operator Relationship Specialty Start Date End Date Ramiro Ball MD [address] [place] [id number] PCP - General 06/06/10 02/17/24 documented as of this encounter
--- OUTSIDE RECORDS SUMMARY | 2024-04-02 21:12 | XMS_ITS | Encounter Summary ---
[place] [address] Care Team Providers Care Factory Machine Computer Operator Name Role Phone Tamia Tsai Primary Care Provider Reason for Referral * Consultation (STAT) - Authorized Specialty Diagnoses / Procedures Referred By Contcj t Referred To Contact [facility] Diagnoses Other spondylosis with myelopathy, lumbar region Spine- lumbar disc protrusion w/compression/ radicular sx/ MRI 02/14/24 & XR 01/26/24 @ [facility] Tamia Tsai PA [address] [place] [address] [facility] [place] [address] Referral ID Status Reason Start Date Expiration Date Visits Requested Visits Authorized [id number] Authorized Consult, Test & Treat PCP Updated and/or Approved 02/18/2024 08/20/2024 1 1 Encounter Details Date Type Department Care Team (Latest Contact Info) Description 02/18/2024 Transcribe Orders eDH Incoming Referrals [phone] Tamia Tsai PA [address] [place] [phone] Other spondylosis with myelopathy, lumbar region Social History Tobacco Use Types Packs/Day Years Used Date Smoking Tobacco: Never Smokeless Tobacco: Never Alcohol Use Standard Drinks/Week Comments Not Currently 0 (1 standard drink = 0.6 oz pur e alcohol) [facility] Inpatient Questions Answer Date Recorded Does Anyone [...] 2:30 PM [place] [address] Susanna Cm CHILD WELFARE SPECIALIST [facility] [place] [address] Scheduled Referrals Name Type Priority Associated Diagnoses Orde r Schedule Referral to Spine Center Outpatient Referral STAT Other spondylosis with myelopathy, lumbar region Ordered: 02/18/2024 documented as of this encounter Visit Diagnoses Diagnosis Other spondylosis with myelopathy, lumbar region documented in this encounter Care Teams Factory Machine Computer Operator Relationship Specialty Start Date End Date Tamia Tsai PA [address] [place] [address] PCP - General Family Medicine 02/18/24 documented as of this encounter
--- OUTSIDE RECORDS SUMMARY | 2024-04-02 21:12 | XMS_ITS | Encounter Summary ---
Author Organization [facility] Address [facility] [place] [address] Care Team Providers Care Clinical Pharmacy Specialist Name Role Phone Ramiro Ball MD Primary Care Provider [phone] Reason for Referral * Consultation (Routine) - Closed Specialty Diagnoses / Procedures Referred By Luca beltran Referred To Contact Cardiology Diagnoses S/P coronary artery stent placement Avani Danielle MD [facility] [place] [address] Cardiac Rehab, [address] [place] [address] Referral ID Status Reason Start Date Expiration Date V isits Requested Visits Authorized [id number] Closed Consult, Test & Treat 06/27/2023 12/24/2023 36 36 Reason for Visit * Auth/Cert (Routine) Specialty Diagnoses / Procedures Referred By Luca beltran Referred To Contact Diagnoses Encounter for screening for cardiovascular disorders Atherosclerotic heart disease of [place] coronary artery without angina pectoris Screening for cardiovascular condition [Z13.6] ASCVD (arteriosclerotic cardiovascular disease) [I25.10] Coronary artery disease, unspecified vessel or lesion type, unspecified whether angina present, unspecified whether [place] or transplanted heart [I25.10] Procedures PRG CATH [...] CORONARY ARTERY (WRVU *) Avani Danielle MD [facility] [place] [address] [facility] Referral ID Status Reason Start Date Expiration Date Visits Re quested Visits Authorized [id number] 1 1 Encounter Details Date Type Department Care Team (Latest Contact Info) Description 06/26/2023 6:58 AM EST - 06/27/2023 9:32 AM EST Hospital Encounter [place] [id number] Avani Danielle MD [facility] [place] [address] Screening for cardiovascular condition; ASCVD (arteriosclerotic cardiovascular disease); Coronary artery disease, unspecified vessel or lesion type, unspecified whether angina present, unspecified whether [place] or transplanted heart; S/P coronary artery stent [...] Johnson Tobar Patient Age: 72 y.o. Language: [place] Race: White Ethnicity: Not nor Admit date: [...] please contact your inpatient physician through the [facility] Relief Captain . Issues afterhours and on weekends will be handled by the blast furnace keeper on-call. Discharge Diagnoses (Hospital Problems) and Secondary [...] Right Femoral Access ultrasound guided - 7 [place] Right Femoral Vein ultrasound guided - 5 [...] Rota juliet, we brought in a 6 [place] guide liner through which a 1.5 Rota [...] upsize the radial catheter to a 7 [place] system but were unable to put a 7 slender sheath. We then obtained right femoral access with a 7 [place] sheath. We brought a 7 [place] AL-1 guide catheter to the RCA. We placed a 7 [place] guide liner and rewiredthe RCA with a [...] Administered Date(s) Administered Moderna Covid-19 Monovalent 12Yr+ (Capacitor Tester 100mcg) 09/15/2020, 10/13/2020 Discharge Medications: Your Medications [...] Complete By Expires Referral to Cardiac Rehab [PLT755 Custom] As directed Process Instructions: If no progress note charted, please enter Clinical details in comments. Scheduling Instructions: Questions: My question or request is: s/p PCI to RCA Discharge References/Attachments None documented in this encounter Discharge Instructions * Attachments The following attachments cannot be sent through Care Everywhere. * PCI (Percutaneous Coronary Intervention): Post-op ([place]) documented in this encounter Medications at Time [...] Heller RN - 06/27/2023 8:00 AM EST [facility] Short Stay Unit Discharge Note All [...] stenosis Added automatically from request for surgery [id number] Type 2 diabetes mellitus ASCVD (arteriosclerotic cardiovascular [...] Tobar PCP: Ramiro Ball MD PCP Referring Fiscal Economist: Joseph Lackey MD Reason for Referral: Angina [...] in cardiac rehab after his CABG at [facility] and enjoyed it. He has a stationary bike at home but has not been using it lately due to sx. He carries NTG and understands how to use it. Participation in an outpatient cardiac rehabilitation program at [facility] was discussed. He agrees to another referral to this program. The referral will be sent at discharge and the patient should be contacted by the Program within 1- 2 weeks from discharge. * Brief Op Note - Everett Guthrei MD - 06/26/2023 1:30 PM EST Images from the original note were not included. Brief Operative Note Patient Name: Johnson Tobar : [id number] MR#: [id number] Case Date: 06/26/2023 Surgeon: Surgeon(s) and Role: * Avani Danielle MD - Primary * Everett Guthrie MD - Fellow - Assisting * Jeana Stack MD - Fellow - Assisting Preoperative diagnosis: ASCVD Postoperative diagnosis: ASCVD Preliminary Cardiac Catheterization Procedure Note: Procedure(s) performed: Right Radial Access - 6 Slender Right Femoral Access ultrasound guided - 7 [place] Right Femoral Vein ultrasound guided - 5 [...] Rota juliet, we brought in a 6 [place] guide liner through which a 1.5 Rota [...] upsize the radial catheter to a 7 [place] system but were unable to put a 7 slender sheath. We then obtained right femoral access with a 7 [place] sheath. We brought a 7 [place] AL-1 guide catheter to the RCA. We placed a 7 [place] guide liner and rewiredthe RCA with a [...] 2:30 PM EST [place] [address] Susanna Cm APRN [facility] [place] [address] Scheduled Referrals Name Type Priority Associated Diagnoses [...] type, unspecified whether angina present, unspecified whether [place] or transplanted heart Perc Trluml Coronary Stent W/Angio Addl Art/Branch ([id number]) 06/26/2023 9:06 AM EST Screening for cardiovascular condition ASCVD (arteriosclerotic cardiovascular disease) Coronary artery disease, unspecified vessel or lesion type, unspecified whether angina present, unspecified whether [place] or transplanted heart Perc Trluml Coronary Stent W/Angio One Art/Branch([id number]) 06/26/2023 9:06 AM EST Screening for cardiovascular condition ASCVD (arteriosclerotic cardiovascular disease) Coronary artery disease, unspecified vessel or lesion type, unspecified whether angina present, unspecified whether [place] or transplanted heart Cath [facility] Left Heart Cath & Arts W/Inj & Angio Img S&I ([id number]) 06/26/2023 9:06 AM EST Screening for cardiovascular condition ASCVD (arteriosclerotic cardiovascular disease) Coronary artery disease, unspecified vessel or lesion type, unspecified whether angina present, unspecified whether [place] or transplanted heart POCT GLUCOSE Routine 06/26/2023 8:11 AM EST documented in this encounter Results * POCT Glucose (06/27/2023 6:42 AM EST) Glucose, POC 121 65 - 199 mg/dL [facility] Comment: Supplemental ranges: <140 mg/dL before meals <180 mg/dL all other times of the day Blood 06/27/2023 6:42 AM EST 06/27/2023 6:42 AM EST Avani Onofre MD POINT OF CARE TEST ORDERABLES [facility] [place] [address] * POCT Glucose (06/26/2023 9:17 PM EST) Glucose, POC 134 65 - 199 mg/dL [facility] Comment: Supplemental ranges: <140 mg/dL before meals <180 mg/dL all other times of the day Blood 06/26/2023 9:17 PM EST 06/26/2023 9:17 PM EST Avani Onofre MD POINT OF CARE TEST ORDERABLES Performing Organization Address [facility] Co de Phone Number [facility] [place] [address] * POCT Glucose (06/26/2023 4:43 PM EST) Glucose, POC 99 65 - 199 mg/dL [facility] Comment: Supplemental ranges: <140 mg/dL before meals <180 mg/dL all other times of the day Blood 06/26/2023 4:43 PM EST 06/26/2023 4:43 PM EST Avani Onofre MD POINT OF CARE TEST ORDERABLES Performing Organization Address [facility] Co de Phone Number [facility] [place] [address] * EKG 12 Lead (06/26/2023 1:17 PM EST) Ventricular rate 76 BPM MUSE SYSTEM Atrial Rate 76 BPM MUSE SYSTEM P-R Interval 136 ms MUSE SYSTEM QRS Duration 82 ms MUSE SYSTEM Q-T Interval 408 ms MUSE SYSTEM QTC Calculated (Bezet) 459 ms MUSE SYSTEM Calculated P [place] 35 degrees MUSE SYSTEM Calculated R [place] -2 degrees MUSE SYSTEM Calculated T [place] -43 degrees MUSE SYSTEM INTERPRETATION Normal sinus [...] Glucose, POC 139 65 - 199 mg/dL [facility] Comment: Supplemental ranges: <140 mg/dL before meals <180 mg/dL all other times of the day Blood 06/26/2023 1:13 PM EST 06/26/2023 1:13 PM EST Avani Onofre MD POINT OF CARE TEST ORDERABLES Performing Organization Address [facility] Co de Phone Number [facility] [place] [address] * CARDIAC CATHETERIZATION (06/26/2023 12:55 PM EST) Anatomical Region Laterality Modality Other Narrative 06/26/2023 4:32 PM EST ?[facility] ? Cardiac Catheterization/Intervention Report ? Patient Name: Ekaterina, Johnson R. ? Procedure Date: 06/26/2023 ? A #: [id number] ? Primary Physician: Avani Danielle I ? Case #: [id number] ? File Name: [id number] ? Catheterization Order Number: [id number] ? [facility] ? Final Report [place], [place] ? Patient Name: ? Johnson R. Ekaterina ? ID#: ?[id number] ? : ?1950 ? Procedure Date: ? [...] was Elective. The indication for ?the laboratory inspector visit is stable known CAD. Chest pain [...] on chronic DAPT on arrival to the laboratory inspector. ?Recommended anti-platelet/anti-thrombotic regimen: ?Continue aspirin 81 mg daily for indefinitely. ?Continue clopidogrel 75 mg daily for 6 months then stop. ?These recommendations are made at the time of the intervention. Patient ?and provider preferences or a changing clinical situation may require ?modification of this regimen. Consult [facility] Interventional Cardiology for ?questions. ? Conclusions: ?* [...] Procedure Note Avani Danielle MD - 07/25/2023 [facility] Cardiac Catheterization/Intervention Report Patient Name: Johnson Tobar Procedure Date: 06/26/2023 A #: [id number] Primary Physician: Avani Danielle I Case #: [id number] File Name: [id number] Catheterization Order Number: [id number] [facility] FinalReport [place], [place] Patient Name: Johnson Tobar ID#:[id number] :1950 Procedure Date: June 26, 2023 Case [...] patient wasdesignated as ASA Class III. The [facility] clinical frailty scale is 4: Vulnerable. [...] procedure was Elective. Theindication for the laboratory inspector visit is stable known CAD. Chest pain [...] priority for the procedure was Elective. The [facility] indication for the procedure was Stable angina. [...] on chronic DAPT on arrival to the laboratory inspector. Recommended anti-platelet/anti-thrombotic regimen: Continue aspirin 81 mg daily for indefinitely. Continue clopidogrel 75 mg daily for 6 months then stop. These recommendations are made at the time of the intervention.Patient and provider preferences or a changing clinical situation mayrequire modification of this regimen. Consult [facility] Interventional Cardiologyfor questions. Conclusions: * Obstructive disease [...] Glucose, POC 147 65 - 199 mg/dL [facility] Comment: Supplemental ranges: <140 mg/dL before meals <180 mg/dL all other times of the day Blood 06/26/2023 8:11 AM EST 06/26/2023 8:11 AM EST Avani Onofre MD POINT OF CARE TEST ORDERABLES [facility] [place] [address] documented in this encounter Visit Diagnoses Diagnosis CAD (coronary artery disease)- Primary Coronary atherosclerosis of unspecified type of vessel, [place] or graft Screening for cardiovascular condition Screening for other and unspecified cardiovascular conditions ASCVD (arteriosclerotic cardiovascular disease) Unspecified cardiovascular disease Coronary artery disease, unspecified vessel or lesion type, unspecified whether angina present, unspecified whether [place] or transplanted heart S/P coronary artery stent placement Postsurgical percutaneous transluminal coronary angioplasty status Screening for cardiovascular condition Screening for other and unspecified cardiovascular conditions ASCVD (arteriosclerotic cardiovascular disease) Unspecified cardiovascular disease Coronary artery disease, unspecified vessel or lesion type, unspecified whether angina present, unspecified whether [place] or transplanted heart documented in this encounter Admitting Diagnoses Diagnosis CAD (coronary artery disease) Coronary atherosclerosis of unspecified type of vessel, [place] or graft documented in this encounter Administered [...] 1639 (Given - Provider: Eboni Carrion, MOISES) 08 (Given - Provider: Hailey Heller, MOISES) [...] RN - Reason: Order parameters not met) 07 (Not Given - Provider: Hailey Heller, MOISES - Reason: Order parameters not met - Comment: CB 121) metoprolol tartrate (Lopressor) tablet 100 mg [...] Routine documented in this encounter Care Teams Clinical Pharmacy Specialist Relationship Specialty Start Date End Date Ramiro Ball MD [address] [place] [id number] PCP - General 06/06/10 02/17/24 documented as of this encounter
--- OUTSIDE RECORDS SUMMARY | 2024-04-02 21:12 | XMS_ITS | Encounter Summary ---
[place] [address] Care Team Providers Care Evp And Chief Operating Officer Name Role Phone Tamia Tsai Primary Care Provider [phone] Reason for Visit * Auth/Cert (Routine) Specialty Diagnoses / Procedures Referred By Contac t Referred To Contact Diagnoses NSTEMI (non-ST elevated myocardial infarction) NSTEMI Procedures ER BRAXTONI Mauricio Jean MD [facility] [place] [address] [facility] Referral ID Status Reason Start Date Expiration Date Visits Re quested Visits Authorized [id number] 1 1 Encounter Details Date Type Department Care Team (Late st Contact Info) Description 02/24/2024 11:00 AM EDT - 02/24/2024 12:00 PM EDT [place] [address] Zara Dc MD [facility] [place] [address] CARDIAC CATHETERIZATION Social History Tobacco Use Types Packs/Day Years Used Date Smoking Tobacco: Never Smokeless Tobacco: Never Alcohol Use Standard Drinks/Week Comments Not Currently 0 (1 standard drink = 0.6 oz pur e alcohol) [facility] Utilities Answer Date Recorded In [...] [facility] the [facility] or living in a [facility] (including now)? No 02/24/2024 DH IPV Inpatient [...] Johnson Tobar Patient Age: 73 y.o. Language: Iraqi Admit date: 02/23/2024 Discharge date and time: [...] on discharge: Daily Healthy Menu Choices/Cardiac diet ([facility]-Diet) 60/60/75 CHO counting [...] Discharge Diagnoses: Active Hospital Problems Diagnosis R CORRESPONDENCE REVIEW CLERK occlusion and infarction associated with cardiac catheterization, [...] Earlier today, he was taken to the geoscience laboratory technician, though no intervention required. In recovery, pt started to have slurred speech and left hemiparesis, Stroke Alert called. NIHSS 16 (LOC 1, Gaze 1, VF 1, Face 1, LUE 3, LLE 3, Sensory 2, Dysarthria 1, Language 1). CT/CTA showed R CORRESPONDENCE REVIEW CLERK occlusion and severe R ICA stenosis; decision [...] adjacent thalamus infarctions. Vascular imaging showed Right CORRESPONDENCE REVIEW CLERK occlusion (distal P2 segment), severe right ICA [...] Calculated (Bezet) ms 439 459 Calculated P Hubbard degrees 59 35 Calculated R Hubbard degrees -8 -2 Calculated T Hubbard degrees 0 -43 INTERPRETATION Normal sinus rhythm Possible Left atrial enlargement Inferior infarct (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-2020) Borderline ST depression Lateral leads Abnormal ECG When compared with ECG of 26-JUN-2023 13:17, No significant change was found I personally reviewed the tracing and edited the fellows interpretation Confirmed by fellow MD Sunshine, Carl ([id number]) on 02/24/2024 10:56:50 AM Confirmed by MD [...] who have questions please contact the health healthcare receptionist that requested your imaging first. Electronically signedby: Theo Garcia MD, [facility] ([phone]), at 02/28/2024 12:[address] Head wo Contrast (Generic) Result Date: 02/24/2024 1. Right CORRESPONDENCE REVIEW CLERK occlusion (distal P2 segment). 2. Severe right [...] who have questions please contact the health healthcare receptionist that requested your imaging first. Electronically signed by: Kingston Dukes MD, [facility] ([phone]), at 02/24/2024 2:49PM MRA Head and Neck [...] patientswho have questions please contact the health healthcare receptionist that requested your imaging first. Carotids/[place] No results found. TTE Interpretation [...] with a DEBORAH if clinically indicated. Procedure Complete-[id number]. Image enhancement Optison was used for left [...] Anticipated Discharge Disposition (OT): acute rehabilitation facility APPRENTICE: Diagnosis: Baseline speech and swallow function Vital [...] 30mcg (12Yrs+) 05/02/2022 Moderna Covid-19 Monovalent 12Yr+ (Horticulture Superintendent 100mcg) 09/15/2020, 10/13/2020 Discharge Medications: Your Medications [...] stroke, and education on stroke follow-up. Modified Culberson Score (MRS) on discharge Score Description 0 [...] Care Provider: RASHEL Do [address] / [facility] [address] Discharge References/Attachments None documented in this encounter Discharge Instructions * Patient Instructions* Jerome Amezquita PA - 03/02/2024 12:11 PM EDT Images from the original note were not included. Patient Instructions: You were admitted to the neurology service at [facility] Your Diagnosis: Stroke, NSTEMI - Work close [...] follow-up appointment in the neurology clinic at [facility]. See below for the appointment time. [...] may be billed similar to a regular yeup-yu-oqbt clinic visit. Primary Care Provider: Please follow up with your Primary Care Provider within one to 2 weeks of discharge. For questions regarding this document or issues relating to this hospitalization on the Neurology Service, please contact the author(s) of this discharge summary through the [facility] Harness Preparer . If you need to cancel or reschedule, please call Dept: [phone] as soon as possible. This is helpful to us and other waiting patients. IF FOLLOW UP VISIT WITH STROKE TEAM IS NEEDED IN FORM OF TELEHEALTH: Please ensure you have an active Avieon-H account and are familiar with it. Also, please ensure an active email address. To sign up for a Avieon-H account, Visit the [email or web address] website and 1) choose ???create an account?? [...] created. If you need technical assistance call [phone] Saturday through Saturday, 7:30 am to 5:00 pm If you plan to join your [facility] Video Visit using your personal smartphone or tablet, prior to joining your visit you will need to download the Zoom daniel from the Daniel Store (for iPhone/iPad) or Fanattac (for Android). Ifyou already have Zoom downloaded on your device for personal use, you???re good to go! 1. Open the Daniel Store or Fanattac Store on your device. 2. Search for Zoom and download the Zoom Daggett Meetings daniel. ? Daniel Store Link: [email or web address] ? Fanattac Link: [email or web address]/apps/details?id=us.[email or web address].videomeetings If you plan to join your [facility] Video Visit using your computer or laptop, [...] the link to connect to your visit withinyoD-Share portal. 1. Sign into your Synerchip account. 2. Select Appointments. 3. Select your [facility] Video Visit and tap Begin Visit. 4. [...] Starting 30 minutes prior to your scheduled [employer]ieon-[employer] Video Visit, you will find the link to connect tothe visit within your Synerchip portal. 1. Sign into your Synerchip account (Synerchip portal link: [email or web address] Operational Agricultural [email or web address]).[email or web address]). 2. On the top of the webpage, hover over Visits and select Appointments and Visits. 3. Click the Details button next to your [facility] video visit. 4. Click the Begin Video [...] facility. [facility] Packet was given to to handoff [...] Earlier today, he was taken to the geoscience laboratory technician, though no intervention required. After [...] ANGIOPLASTY WITH STENT PLACEMENT 1997 PRG CATH PLRI LEFT HEART CATH & ARTS W/INJ & ANGIO IMG S&I N/A 05/17/2023 CORONARY ANGIOGRAPHY; W [facility],POSSIBLE PCI (WRVU 5.6) performed by Avani Danielle MD at [facility] CATHLABS PRG CATH PLMT LEFT HEART CATH & ARTS W/INJ & ANGIO IMG S&I N/A 06/26/2023 CORONARY ANGIOGRAPHY; W [facility],POSSIBLE PCI (WRVU 5.6) performed by Avani Danielle MD at [facility] CATHLABS PRO CABG, ARTERIAL, SINGLE Left 06/13/2020 @CABG, USING ARTERIAL GRAFT;SINGLE ARTERIAL GRAFT (WRVU 33.75) performed by Chun Wiley MD at [facility] MAIN OR PRO CABG, ARTERY-VEIN, TWO N/A 06/13/2020 @CABG, TWO VENOUS GRAFTS & ARTERIAL GRAFT (WRVU 7.93) performed by Chun Wiley MD at [facility] MAIN OR PRO ENDOSCOPY W/VIDEO-ASST VEIN HARVEST, CABG Right 06/13/2020 ENDOSCOPIC HARVEST VEIN(S) FOR CABG (WRVU 0.31) performed by Chun Wiley MD at [facility] MAIN OR PRO PERC TRLUML CORONARY STENT W/ANGIO ADDL ART/BRANCH N/A 06/26/2023 STENT PLACEMENT-EACH ADDITIONAL BRANCH OF A MAJOR CORONARY ARTERY (WRVU *) performed by Avani Danielle MD at [facility] CATH LABS PRO PERC TRLUML CORONARY STENT W/ANGIO ONE ART/BRANCH N/A 06/26/2023 STENT PLACEMENT-SINGLE MAJOR CORONARY ARTERY OR BRANCH (WRVU 10.96) performed by Avani Danielle MD at [facility] CATH LABS PRO REPLACEMENT PROSTHETIC AORTIC VALVE OPEN W CARDIOPULMONARY BYPASS HOMOGRF/STENT N/A 06/13/2020 @REPLACE AORTIC VALVE, OPEN, W\CPB, W\PROSTHETIC VALVE (WRVU 41.32) performed by Chun Wiley MD at [facility] MAIN OR Social History: Home set-up: [...] the patient. Total Minutes, Physical Therapy: 30 (0256-2937 2 x tef) Kd Naik PTA Pager: [phone] Physical Therapy Inpatient Rehabilitation Department * Mihaela [...] Earlier today, he was taken to the geoscience laboratory technician, though no intervention required. After [...] 2-4 times/wk Total Minutes, Occupational Therapy: 18 ([facility] x1 ([phone])) Pager: [phone] Mihaela Coker OT 03/02/2024 Occupational Therapy Rehabilitation Department * Devon Lorenz - 03/02/2024 10:53 AM EDT Office of Care Management/Grants Assistant Patient Name: Johnson Tobar : 1950 Patient has been offered an acute rehab bed at [facility] for today, 03/02/24 Patient will transport to facility via private car around 1300 No MD to MD report necessary Dr. Rao to admit Please call Nursing Report to [phone], ask for refiner operator. Info to accompany patient: Copies of Medication Administration Records and IV sheets for past 10 days. Plan: Grants Assistant will be available to the patient and Senior Svp-RN and/or Social Workerfor further assistance. Patient will be discharged to: [facility] Devon Lorenz Grants Assistant * Yaya Hunter MD - 03/02/2024 6:49 AM EDT Images from the original note were not included. VASCULAR NEUROLOGY PROGRESS NOTE Admit Date 02/23/2024 Responsible Attending: Kd Huggins MD Primary Provider: RASHEL Do [phone] Hospital Day: Hospital Day: 9 Patient ID [...] hemibody weakness. Found to have acute right CORRESPONDENCE REVIEW CLERK infarct. 24-hr Events: -Patient feels well this [...] 8.3 (H) 02/24/2024 ASSESSMENT & PLAN Johnson R Ekaterina 73 y.o. male with PMHx of ASCVD s/p CABG x 3 (MCKEON --> LAD, SVG --> OM1 --> D1) and RCA PCI (06/2023), severe s/p AVR (05/2020), DM2, HTN, HLD who initially presented on02/22 with chest pressure and light-headedness concerning for ACS, found to have dysarthria and lefthemiparesis and an acute distal R CORRESPONDENCE REVIEW CLERK occlusion s/p tPA. Most likely etiology clara-procedural. 03/02/24 Patient remains neurologically stable. He continues on DAPT with aspirin and Plavix, as well as high intensity statin and Zetia for secondary stroke risk reduction. Hyponatremia remains stable and continues to improve. Patient remains medically ready for discharge and is pending insurance authorization for acute patient rehab at [facility]. Anticipate discharge to rehab today. 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 #History severe right ICA stenosis #Moderate to severe right intradural VA stenosis - neuro checks/VS Q4 - Continue Aspirin 81mg daily, Plavix 75mg daily (will likely be on DAPT through 06/2023 per cardiology) - Continue rosuvastatin 40 mg - PT/OT/APPRENTICE #NSTEMI s/p cardiac catherization w/o intervention 02/23 [...] nebs PRN #GI - - follow up APPRENTICE recs - Daily Healthy Menu Choices/Cardiac diet ([facility]-Diet) 60/60/75 CHO counting level 2 - maintain bowel reg - Protonix 40mg # Other - Activity: as tolerated - Dispo: Acute patient rehab, [facility] pending insurance auth - Last BM: Last Bowel Movement: 02/29/24 - code status: Attempt Cardiopulmonary Resuscitation - Inpatient Patient Lines/Drains/Airways Status Active Tubes/Lines/Drains Name Placement date Placement time Site Days PIV 08/11/24 2000 18 gauge cephalic vein (lateral side of arm), left 02/23/241999 -- 8 PIV 02/23/241999 20 gauge basilic vein (medial side of arm), right 02/23/241999 -- 8 Please page Vascular Neurology with any questions, #[phone] Department of Neurology [place] [phone] Associated attestation - Kd Huggins MD - [...] Linsey Esquivel Urgency Level: FYI Callback Number: [phone] The following Message was sent: [] - Callback:[phone] ekaterina: pt here 7 days and awaiting placement. can VS and NC be q6wa? - Linsey Esquivel The following status was returned from the time study observer: Page for [phone] successfully sent to [phone] [...] and begin next steps. * Susanna Cm, ANH - 03/01/2024 8:05 AM EDT Images from the original note were not included. VASCULAR NEUROLOGY PROGRESS NOTE Admit Date 02/23/2024 Responsible Attending: Kd Huggins MD Primary Provider: RASHEL Do [phone] Hospital Day: Hospital Day: 8 Patient ID [...] hemibody weakness. Found to have acute right CORRESPONDENCE REVIEW CLERK infarct. 24hr Events: -NAEON, VSS, afebrile -Hyponatremia [...] Labs 03/01/24 0536 02/29/24 0552 02/28/24 0533 02/27/2462902/26/24 0004 NA 128* 127* 125* 128* 129* K 4.5 4.1 4.1 4.3 4.5 CL 95* 93* 93* 95* 94* CO2 19* 20* 21* 22 23 BUN 13 15 15 11 11 CREATININE 0.88 0.95 1.05 1.00 0.97 GLUCOSE 150 152 175 138 182 Recent Labs 03/01/2436 02/29/24 0552 02/28/24 0533 02/27/24 0630 02/26/24 0004 CALCIUM 9.6 9.3 8.9 9.0 8.9 MAGNESIUM -- -- 0.67* 0.63* 0.79 No results for input(s): AST, ALT, ALKPHOS, BILITOT, BILIDIR, LDH in the last 168 hours. No results for input(s): TROPONINT, CK in the last 168 hours. No results for input(s): PHART, ZQW4WTD, PO2ART, ZHQ7RMC in the last 168 hours. No results [...] hemiparesis found to have acute distal R CORRESPONDENCE REVIEW CLERK occlusion s/p tPA. Most likely etiology clara-procedural. 03/01/24 Patient remains neurologically stable. He continues on DAPT with aspirin and Plavix and high intensity statin and Zetia for secondary stroke risk reduction. Hyponatremia remains stable and continues to improve. Patient remains medically ready for discharge and is pending insurance authorization foracute patient rehab at [facility]. 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 #History severe right ICA stenosis #Moderate to severe right intradural VA stenosis - neuro checks/VS Q4 - Continue Aspirin 81mg daily, Plavix 75mg daily - Continue rosuvastatin 40 mg - PT/OT/APPRENTICE #NSTEMI s/p cardiac catherization w/o intervention 02/23 [...] nebs PRN #GI - - follow up APPRENTICE recs - Daily Healthy Menu Choices/Cardiac diet ([facility]-Diet) 60/60/75 CHO counting [...] Please page Vascular Neurology with any questions, #[phone] Susanna Cm APRN [place] [address] * Dotty Burns RN - 02/29/2024 6:19 PM EDT Page Confirmation To Pager number: [phone] From Submitter: Dotty Burns Urgency Level: FYI The following Message was sent: [FYI] - 503B Ekaterina; pt has had large volume watery stool foul, want sample? - Dotty Burns The following status was returned from the time study observer: Page for [phone] successfully sent to [phone] having status of Available. * Susanna Cm, INSURANCE EXAMINING CLERK - 02/29/2024 8:23 AM EDT Images from the original note were not included. VASCULAR NEUROLOGY PROGRESS NOTE Admit Date 02/23/2024 Responsible Attending: Kd Huggins MD Primary Provider: RASHEL Do [phone] Hospital Day: Hospital Day: 7 Patient ID [...] hemibody weakness. Found to have acute right CORRESPONDENCE REVIEW CLERK infarct. 24hr Events: -NAEON, VSS, afebrile -Stable [...] 168 hours. No results for input(s): PHART, SBT7OOY, PO2ART, JOV8XHM in the last 168 hours. No results [...] hemiparesis found to have acute distal R CORRESPONDENCE REVIEW CLERK occlusion s/p tPA. Most likely etiology clara-procedural. 02/29/24 Patient remains neurologically stable. He continues on DAPT with aspirin and Plavix and high intensity statin and Zetia for secondary stroke risk reduction. Continues to have hyponatremia. Will startsalt tablets and recommend adding salt to food. Patient remains medically ready for discharge and is pending insurance authorization for acute patient rehab at [facility]. 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 #History severe right ICA stenosis #Moderate to severe right intradural VA stenosis - neuro checks/VS Q4 - Continue Aspirin 81mg daily, Plavix 75mg daily - Continue rosuvastatin 40 mg - PT/OT/APPRENTICE #NSTEMI s/p cardiac catherization w/o intervention 02/23 [...] nebs PRN #GI - - follow up APPRENTICE recs - Daily Healthy Menu Choices/Cardiac diet ([facility]-Diet) 60/60/75 CHO counting [...] Please page Vascular Neurology with any questions, #[phone] Susanna Cm APRN [place] [address] Associated attestation - Kd Huggins MD - [...] -- Intake/Output Summary (Last 24 hours) at 02/29/2024 2113 Last data filed at 02/29/2024 0753 Gross [...] of lab /radiology/other tests * Kd Naik, MATERIAL FLOW ANALYST - 02/28/2024 3:39 PM EDT Physical [...] Earlier today, he was taken to the geoscience laboratory technician, though no intervention required. After [...] ANGIOPLASTY WITH STENT PLACEMENT 1997 PRG CATH [facility] LEFT HEART CATH & ARTS W/INJ & ANGIO IMG S&I N/A 05/17/2023 CORONARY ANGIOGRAPHY; W [facility],POSSIBLE PCI (WRVU 5.6) performed by Avani Danielle MD at [facility] CATHLABS PRG CATH PLRI LEFT HEART CATH & ARTS W/INJ & ANGIO IMG S&I N/A 06/26/2023 CORONARY ANGIOGRAPHY; W [facility],POSSIBLE PCI (WRVU 5.6) performed by Avani Danielle MD at [facility] CATHLABS PRO CABG, ARTERIAL, SINGLE Left 06/13/2020 @CABG, USING ARTERIAL GRAFT;SINGLE ARTERIAL GRAFT (WRVU 33.75) performed by Chun Wiley MD at [facility] MAIN OR PRO CABG, ARTERY-VEIN, TWO N/A 06/13/2020 @CABG, TWO VENOUS GRAFTS & ARTERIAL GRAFT (WRVU 7.93) performed by Chun Wiley MD at [facility] MAIN OR PRO ENDOSCOPY W/VIDEO-ASST VEIN HARVEST, CABG Right 06/13/2020 ENDOSCOPIC HARVEST VEIN(S) FOR CABG (WRVU 0.31) performed by Chun Wiley MD at [facility] MAIN OR PRO PERC TRLUML CORONARY STENT W/ANGIO ADDL ART/BRANCH N/A 06/26/2023 STENT PLACEMENT-EACH ADDITIONAL BRANCH OF A MAJOR CORONARY ARTERY (WRVU *) performed by Avani Danielle MD at [facility] CATH LABS PRO PERC TRLUML CORONARY STENT W/ANGIO ONE ART/BRANCH N/A 06/26/2023 STENT PLACEMENT-SINGLE MAJOR CORONARY ARTERY OR BRANCH (WRVU 10.96) performed by Avani Danielle MD at [facility] CATH LABS PRO REPLACEMENT PROSTHETIC AORTIC VALVE OPEN W CARDIOPULMONARY BYPASS HOMOGRF/STENT N/A 06/13/2020 @REPLACE AORTIC VALVE, OPEN, W\CPB, W\PROSTHETIC VALVE (WRVU 41.32) performed by Chun Wiley MD at [facility] MAIN OR Social History: Home set-up: [...] meal times as able. Interval History: from [facility] Neuro note: - Patient reports that [...] Bed Mobility: Supine to sit: min a datastage architect Sit to Supine: nt Transfers: Sit to [...] the patient. Total Minutes, Physical Therapy: 50 (1486-6046 3 x tef) Kd Naik MATERIAL FLOW ANALYST Pager: [phone] Physical Therapy Inpatient Rehabilitation Department * Carl Martínez RN - 02/28/2024 9:56 AM EDT Page Sent Successfully Page Confirmation To Pager number: [phone] From Submitter: Carl Martínez Urgency Level: FYI The following Message was sent: [FYI] - 503a; is the dixon staying in today? - Carl Martínez The following status was returned from the time study observer: Page for [phone] successfully sent to [phone] [...] Earlier today, he was taken to the geoscience laboratory technician, though no intervention required. After [...] Occupational Therapy: 33 (SCHM X1 TEF x1 (1094-1420)) Pager: [phone] Mihaela Coker, OT 02/28/2024 Occupational Therapy Rehabilitation Department * Yaya Hunter MD - 02/28/2024 7:07 AM EDT Images from the original note were not included. VASCULAR NEUROLOGY PROGRESS NOTE Admit Date 02/23/2024 Responsible Attending: Kd Huggins MD Primary Provider: RASHEL Do [phone] Hospital Day: Hospital Day: 6 Patient ID [...] hemibody weakness. Found to have acute right CORRESPONDENCE REVIEW CLERK infarct. 24hr Events: - Patient reports that [...] 168 hours. No results for input(s): PHART, UDK8IMU, PO2ART, UVD6QFP in the last 168 hours. No results [...] R Ekaterina 73 y.o. male with PMHx of ASCVD s/p CABG x 3 (MCKEON --> LAD, SVG --> OM1 --> D1) and RCA PCI (06/2023), severe s/p AVR (05/2020), DM2, HTN, HLD who initially presented on02/22 with chest pressure and light-headedness concerning for ACS, now with dysarthria and left hemiparesis found to have acute distal R CORRESPONDENCE REVIEW CLERK occlusion s/p tPA versus clara-procedural stroke. 02/28/24 Patient remains neurologically stable. Etiology unclear, possibly clara- procedural in setting of cath procedure. We plan to continue DAPT for at least 90 days for carotid stenosis per CREST, as well as high intensity statin and Zetia. Patient remains medically ready at this time and awaiting placement at [facility]. 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 #History severe right ICA stenosis #Moderate to severe right intradural VA stenosis - neuro checks/VS Q4 - Continue Aspirin 81mg daily, Plavix 75mg daily (will continue for 90 days at least, will defer tocardiology outpatient about DAPT past 90 days) - Continue rosuvastatin 40 mg - PT/OT/APPRENTICE #NSTEMI s/p cardiac catherization w/o intervention 02/23 [...] nebs PRN #GI - - follow up APPRENTICE recs - Daily Healthy Menu Choices/Cardiac diet ([facility]-Diet) 60/60/75 CHO counting [...] Please page Vascular Neurology with any questions, #[phone] Associated attestation - Kd Huggins MD - [...] The following status was returned from the time study observer: Page for [phone] successfully sent to [phone] [...] Earlier today, he was taken to the geoscience laboratory technician, though no intervention required. After [...] Current Diet: Daily Healthy Menu Choices/Cardiac diet ([facility]-Diet) 60/60/75 CHO counting [...] Bolus Presentation(s) Tested Comments Thin liquids x [place] thick liquids Honey thick liquids Pureed solids [...] Patient, Family educated on role of the APPRENTICE and findings and plan of care. Patient [...] aspiration pneumonia Do not anticipate need from APPRENTICE services in discharge location. Speech Therapy Goals: (To be met by discharge) Pt will maintain hydration / nutrition with optimal safety and efficiency. MET Monitor for further acute changes in speech or swallow during hospitalization MET Plan: Therapy Frequency (APPRENTICE Eval): other (see comments) No further APPRENTICE needs identified. Pt./family are in agreement with treatment plan. 10 min session. Thank you for this consult with this patient. Please feel free to page me with any questions or concerns. Rachel Saenz MA, CCC-APPRENTICE Pager: [phone] Speech-Language Pathology Inpatient Rehabilitation Medicine * Carl Martínez RN - 02/27/2024 10:31 AM EDT Page Sent Successfully Page Confirmation To Pager number: [phone] From Submitter: Carl Martínez Urgency Level: FYI The following Message was sent: [FYI] - 503a; tele order expires @ 1500 today, also no BM since Saturday & no prn ordered - Carl Martínez The following status was returned from the time study observer: Page for [phone] successfully sent to [phone] having status of Available. * Yaya Hunter MD - 02/27/2024 9:23 AM EDT Images from the original note were not included. VASCULAR NEUROLOGY PROGRESS NOTE Admit Date 02/23/2024 Responsible Attending: Kd Huggins MD Primary Provider: RASHEL Do [phone] Hospital Day: Hospital Day: 5 Patient ID [...] Earlier today, he was taken to the geoscience laboratory technician, though no intervention required. After [...] 168 hours. No results for input(s): PHART, JBS0JQP, PO2ART, YIG5YWG in the last 168 hours. Recent Labs [...] territorial abnormality identified. ASSESSMENT & PLAN Johnson Bojorquezx 73 y.o. male with PMHx ASCVD s/p CABG x 3 (MCKEON --> LAD, SVG --> OM1 -->D1) and RCA PCI (06/2023), severe s/p AVR (05/2020), DM2, HTN, HLD who initially presented on 02/22 with chest pressure and light-headedness concerning for ACS, now with dysarthria and left hemiparesis found to have acute distal R CORRESPONDENCE REVIEW CLERK occlusion now in the setting of severe [...] at this time and awaiting placement at [facility]. #Acute CORRESPONDENCE REVIEW CLERK infarct #Infarcts of posterior right temporal lobe [...] nebs PRN #GI - - follow up APPRENTICE recs - Daily Healthy Menu Choices/Cardiac diet ([facility]-Diet) 60// CHO counting level 2 - maintain bowel [...] Please page Vascular Neurology with any questions, #[phone] Associated attestation - Kd Huggins MD - [...] Earlier today, he was taken to the geoscience laboratory technician, though no intervention required. After [...] ANGIOPLASTY WITH STENT PLACEMENT 1997 PRG CATH PLRI LEFT HEART CATH & ARTS W/INJ & ANGIO IMG S&I N/A 05/17/2023 CORONARY ANGIOGRAPHY; W [facility],POSSIBLE PCI (WRVU 5.6) performed by Avani Danielle MD at [facility] CATHLABS PRG CATH PLRI LEFT HEART CATH & ARTS W/INJ & ANGIO IMG S&I N/A 06/26/2023 CORONARY ANGIOGRAPHY; W [facility],POSSIBLE PCI (WRVU 5.6) performed by Avani Danielle MD at [facility] CATHLABS PRO CABG, ARTERIAL, SINGLE Left 06/13/2020 @CABG, USING ARTERIAL GRAFT;SINGLE ARTERIAL GRAFT (WRVU 33.75) performed by Chun Wiley MD at [facility] MAIN OR PRO CABG, ARTERY-VEIN, TWO N/A 06/13/2020 @CABG, TWO VENOUS GRAFTS & ARTERIAL GRAFT (WRVU 7.93) performed by Chun Wiley MD at [facility] MAIN OR PRO ENDOSCOPY W/VIDEO-ASST VEIN HARVEST, CABG Right 06/13/2020 ENDOSCOPIC HARVEST VEIN(S) FOR CABG (WRVU 0.31) performed by Chun Wiley MD at [facility] MAIN OR PRO PERC TRLUML CORONARY STENT W/ANGIO ADDL ART/BRANCH N/A 06/26/2023 STENT PLACEMENT-EACH ADDITIONAL BRANCH OF A MAJOR CORONARY ARTERY (WRVU *) performed by Avani Danielle MD at [facility] CATH LABS PRO PERC TRLUML CORONARY STENT W/ANGIO ONE ART/BRANCH N/A 06/26/2023 STENT PLACEMENT-SINGLE MAJOR CORONARY ARTERY OR BRANCH (WRVU 10.96) performed by Avani Danielle MD at [facility] CATH LABS PRO REPLACEMENT PROSTHETIC AORTIC VALVE OPEN W CARDIOPULMONARY BYPASS HOMOGRF/STENT N/A 06/13/2020 @REPLACE AORTIC VALVE, OPEN, W\CPB, W\PROSTHETIC VALVE (WRVU 41.32) performed by Chun Wiley MD at [facility] MAIN OR Social History: Home set-up: [...] with concern for ACS and taken to geoscience laboratory technician. No intervention was required, and after geoscience laboratory technician patient was found to have [...] outlined inthis evaluation. Time IN / OUT: 8477-2245 Total Minutes, Physical Therapy: 29 Billing Code: mod complexity eval Beronica Marte PT, DPT, NCS Pager: [phone] Physical Therapy Inpatient Rehabilitation Department * Raquel [...] Earlier today, he was taken to the geoscience laboratory technician, though no intervention required. After [...] ANGIOPLASTY WITH STENT PLACEMENT 1997 PRG CATH PLRI LEFT HEART CATH & ARTS W/INJ & ANGIO IMG S&I N/A 05/17/2023 CORONARY ANGIOGRAPHY; W [facility],POSSIBLE PCI (WRVU 5.6) performed by Avani Danielle MD at [facility] CATHLABS PRG CATH PLRI LEFT HEART CATH & ARTS W/INJ & ANGIO IMG S&I N/A 06/26/2023 CORONARY ANGIOGRAPHY; W [facility],POSSIBLE PCI (WRVU 5.6) performed by Avani Danielle MD at [facility] CATHLABS PRO CABG, ARTERIAL, SINGLE Left 06/13/2020 @CABG, USING ARTERIAL GRAFT;SINGLE ARTERIAL GRAFT (WRVU 33.75) performed by Chun Wiley MD at [facility] MAIN OR PRO CABG, ARTERY-VEIN, TWO N/A 06/13/2020 @CABG, TWO VENOUS GRAFTS & ARTERIAL GRAFT (WRVU 7.93) performed by Chun Wiley MD at [facility] MAIN OR PRO ENDOSCOPY W/VIDEO-ASST VEIN HARVEST, CABG Right 06/13/2020 ENDOSCOPIC HARVEST VEIN(S) FOR CABG (WRVU 0.31) performed by Chun Wiley MD at [facility] MAIN OR PRO PERC TRLUML CORONARY STENT W/ANGIO ADDL ART/BRANCH N/A 06/26/2023 STENT PLACEMENT-EACH ADDITIONAL BRANCH OF A MAJOR CORONARY ARTERY (WRVU *) performed by Avani Danielle MD at [facility] CATH LABS PRO PERC TRLUML CORONARY STENT W/ANGIO ONE ART/BRANCH N/A 06/26/2023 STENT PLACEMENT-SINGLE MAJOR CORONARY ARTERY OR BRANCH (WRVU 10.96) performed by Avani Danielle MD at [facility] CATH LABS PRO REPLACEMENT PROSTHETIC AORTIC VALVE OPEN W CARDIOPULMONARY BYPASS HOMOGRF/STENT N/A 06/13/2020 @REPLACE AORTIC VALVE, OPEN, W\CPB, W\PROSTHETIC VALVE (WRVU 41.32) performed by Chun Wiley MD at [facility] MAIN OR Social History: Home set-up: [...] intensive acute rehab with OT, PT, and APPRENTICE to maximize independence and safety. Pt would [...] Thank you for this consult. Shahida Mims, CATALINA Pager: [phone] * Rachel Saenz, APPRENTICE - 02/26/2024 9:59 AM EDT Speech Therapy [...] Earlier today, he was taken to the geoscience laboratory technician, though no intervention required. After procedure, patient noted to have RIGHT gaze preference, dysarthria, left tongue deviation, and LEFT hemibody weakness. Transferred to NCCU s/p TPA. Prior Level of Swallow Function: WNL Subjective: Alert, sitting up in bed finishing regular breakfast tray. present and supportive.Pt denies having any further speech or swallowing issues this AM. My speech is fine, I'm just [place]. Objective: Pt seen for evaluation today. Pain: Patient in no acute observed discomfort. Respiratory Status: Room air saturating at 98%. Vision: Functional for evaluation, not formally assessed Hearing: Functional for evaluation Current Diet: Daily Healthy Menu Choices/Cardiac diet ([facility]-Diet) 60/60/75 CHO counting [...] Bolus Presentation(s) Tested Comments Thin liquids x [place] thick liquids Honey thick liquids Pureed solids [...] Patient, Family educated on role of the APPRENTICE and findings and plan of care. Patient status, treatment and swallow recommendations were discussed with nursing. Assessment: Pt w/ reported visual disturbance, facial weakness, dysarthria and hemiparesis on 02/25/24 s/p geoscience laboratory technician. TPA given. This AM pt's [...] aspiration pneumonia Do not anticipate need from APPRENTICE services in discharge location. Speech Therapy Goals: (To be met by discharge) Pt will maintain hydration / nutrition with optimal safety and efficiency. NEW Monitor for further acute changes in speech or swallow during hospitalization NEW Plan: Therapy Frequency (APPRENTICE Eval): 1-3 times/wk Pt./family are in agreement with treatment plan. Total Minutes (Speech Language Pathology): 20 Thank you for this consult with this patient. Please feel free to page me with any questions or concerns. Rachel Saenz MA, [facility]-APPRENTICE Pager: [phone] Speech-Language Pathology Inpatient Rehabilitation Medicine * Yaya Hunter MD - 02/26/2024 7:34 AM EDT Images from the original note were not included. VASCULAR NEUROLOGY PROGRESS NOTE Admit Date 02/23/2024 Responsible Attending: Arti Griffin MD Primary Provider: RASHEL Do [phone] Hospital Day: Hospital Day: 4 Patient ID [...] Earlier today, he was taken to the geoscience laboratory technician, though no intervention required. After [...] 168 hours. No results for input(s): PHART, IAY5ATX, PO2ART, GKC0VLR in the last 168 hours. Recent Labs [...] hemiparesis found to have acute distal R CORRESPONDENCE REVIEW CLERK occlusion now in the setting of severe R ICA stenosis s/p tPA. 02/26/24 Patient remains neurologically stable. Etiology possibly due to hypotension/hypoperfusion during cardiac cath from right ICA stenosis versus symptomatic ICA stenosis. Continue DAPT with aspirin and plavix and high intensity statin and Zetia. Patient is also pending PT/OT evaluation at this time. #Acute CORRESPONDENCE REVIEW CLERK infarct #Infarcts of posterior right temporal lobe [...] nebs PRN #GI - - follow up APPRENTICE recs - Daily Healthy Menu Choices/Cardiac diet ([facility]-Diet) 60/60/75 CHO counting [...] Please page Vascular Neurology with any questions, #[phone] Susanna Cm APRN [place] [address] Associated attestation - Kd Huggins MD - [...] them as documented. Reviewed imaging including the CORRESPONDENCE REVIEW CLERK occlusion. Discussed with Cardiology Cont with DAPT [...] CAD, s/p CABG, T2DM. Reason for Assessment: [facility] Evaluation Nutrition Recommendations: Continue [facility], CHO 2 diet order. Pt and deny recent weight loss or change in appetite. Please gather new weight. Weight from 02/23 appears inaccurate. No nutrition questions or concerns. Re-consult as needed. Current Nutrition Regimen: Active Orders Diet Daily Healthy Menu Choices/Cardiac diet ([facility]-Diet) 60/60/75 CHO counting [...] encounter: 73 kg (160 lb 15 oz). [place] Body Weight (IBW) (kg): 67.27 Usual Body [...] Not indicated. Malnutrition Diagnosis: Not identified (Carlito, LESTER J Parenteral Enteral Nutr. 2011; 36(3): 273-83) [...] deficit noted at that time Posted for [facility] today Post procedure developed Left sided weakness, appeared confused, with right gaze preference, Strokealert was called CTB and CTA with severe CORRESPONDENCE REVIEW CLERK stenosis, Right ICA stenosis and Moderate-severe rightintradural [...] Comments: Recent Labs 02/24/24 1331 02/24/24 0302 02/23/242136 WBC 4.94 5.20 5.78 HGB 10.5* 11.3* 11.7* HCT 30.7* 33.2* 34.5* PLATELET 172 151 158 Recent Labs 02/24/24 1325 INR 1.1 Recent Labs 02/24/24 1331 02/24/24 0302 02/23/247 NA 126* 131* 129* K 4.2 4.0 [...] 06/2023, niddm2, HTN, HLD who presented to [facility] with chest pressure and lightheadeness and has been transferred to [facility] for further management [...] of active stroke #Acute right-sided stroke? #R CORRESPONDENCE REVIEW CLERK occlusion # Severe right ICA occlusion # [...] Arti Griffin MD Primary Provider: RASHEL Do [phone] Hospital Day: Hospital Day: 3 Patient ID [...] Earlier today, he was taken to the geoscience laboratory technician, though no intervention required. After [...] [Urine:1810] Labs Recent Labs 02/25/2410502/24/24 1331 02/24/24 03002/23/242136 WBC 5.55 4.94 5.20 5.78 HGB 10.9* 10.5* 11.3* 11.7* HCT 31.6* 30.7* 33.2* 34.5* PLATELET 173 172 151 158 NEUTROABS 3.95 3.38 3.74 4.24 Recent Labs 02/25/24 01002/24/24 1331 02/24/24 03002/23/247 NA 130* 126* 131* 129* K 4.3 [...] 168 hours. No results for input(s): PHART, JFG6UKM, PO2ART, PXK2DQS in the last 168 hours. Recent Labs [...] territorial abnormality identified. ASSESSMENT & PLAN Johnson Bojorquezx 73 y.o. male with PMHx ASCVD s/p CABG x 3 (MCKEON --> LAD, SVG --> OM1 -->D1) and RCA PCI (06/2023), severe s/p AVR (05/2020), DM2, HTN, HLD who initially presented on 02/22 with chest pressure and light-headedness concerning for ACS, now with dysarthria and left hemiparesis found to have acute distal R CORRESPONDENCE REVIEW CLERK occlusion now in the setting of severe [...] nebs PRN #GI - - follow up APPRENTICE recs - Daily Healthy Menu Choices/Cardiac diet ([facility]-Diet) 60/60/75 CHO counting [...] Please page Vascular Neurology with any questions, #[phone] Susanna Cm APRN [place] [address] Neurology Attending Attestation Patient accepted in transfer [...] of two midnights or is on the [facility] inpatient only procedure list (status C) due [...] Griffin MD Vascular Neurology * Marina Schmitz, INSURANCE EXAMINING CLERK - 02/24/2024 1:37 PM EDT NEUROCRITICAL CARE [...] Earlier today, he was taken to the geoscience laboratory technician, though no intervention required. In recovery, pt started to have slurred speech and left hemiparesis, Stroke Alert called. NIHSS 16 (LOC 1, Gaze 1, VF 1, Face 1, LUE 3, LLE 3, Sensory 2, Dysarthria 1, Language 1). CT/CTA showed R CORRESPONDENCE REVIEW CLERK occlusion and severe R ICA stenosis; decision [...] ANGIOPLASTY WITH STENT PLACEMENT 1997 PRG CATH [facility] LEFT HEART CATH & ARTS W/INJ & ANGIO IMG S&I N/A 05/17/2023 CORONARY ANGIOGRAPHY; W [facility],POSSIBLE PCI (WRVU 5.6) performed by Avani Danielle MD at [facility] CATHLABS PRG CATH PLRI LEFT HEART CATH & ARTS W/INJ & ANGIO IMG S&I N/A 06/26/2023 CORONARY ANGIOGRAPHY; W [facility],POSSIBLE PCI (WRVU 5.6) performed by Avani Danielle MD at [facility] CATHLABS PRO CABG, ARTERIAL, SINGLE Left 06/13/2020 @CABG, USING ARTERIAL GRAFT;SINGLE ARTERIAL GRAFT (WRVU 33.75) performed by Chun Wiley MD at [facility] MAIN OR PRO CABG, ARTERY-VEIN, TWO N/A 06/13/2020 @CABG, TWO VENOUS GRAFTS & ARTERIAL GRAFT (WRVU 7.93) performed by Chun Wiley MD at [facility] MAIN OR PRO ENDOSCOPY W/VIDEO-ASST VEIN HARVEST, CABG Right 06/13/2020 ENDOSCOPIC HARVEST VEIN(S) FOR CABG (WRVU 0.31) performed by Chun Wiley MD at [facility] MAIN OR PRO PERC TRLUML CORONARY STENT W/ANGIO ADDL ART/BRANCH N/A 06/26/2023 STENT PLACEMENT-EACH ADDITIONAL BRANCH OF A MAJOR CORONARY ARTERY (WRVU *) performed by Avani Danielle MD at [facility] CATH LABS PRO PERC TRLUML CORONARY STENT W/ANGIO ONE ART/BRANCH N/A 06/26/2023 STENT PLACEMENT-SINGLE MAJOR CORONARY ARTERY OR BRANCH (WRVU 10.96) performed by Avani Danielle MD at [facility] CATH LABS PRO REPLACEMENT PROSTHETIC AORTIC VALVE OPEN W CARDIOPULMONARY BYPASS HOMOGRF/STENT N/A 06/13/2020 @REPLACE AORTIC VALVE, OPEN, W\CPB, W\PROSTHETIC VALVE (WRVU 41.32) performed by Chun Wiley MD at [facility] MAIN OR Social History Tobacco Use [...] Head/Neck Multiphase (Thrombectomy Protocol) Impression 1. Right CORRESPONDENCE REVIEW CLERK occlusion (distal P2 segment). 2. Severe right ICA origin stenosis. 3. Moderate-severe right intradural vertebral artery stenosis. 4. No intracranial hemorrhage. Electronically signed by: Kingston Dukes MD, [facility] ([phone]), at 02/24/2024 2:49 PM EKG: Results for orders placed or performed during the hospital encounter of 02/23/24 EKG 12 Lead Result Value Ref Range Ventricular rate 84 BPM Atrial Rate 84 BPM P-R Interval 124 ms QRS Duration 80 ms Q-T Interval 372 ms QTC Calculated (Bezet) 439 ms Calculated P Hubbard 59 degrees Calculated R Hubbard -8 degrees Calculated T Hubbard 0 degrees INTERPRETATION Normal sinus rhythm Possible [...] inattention CEREBELLUM: no nystagmus GROIN SITE: R SPRAY CEMENTER site still bleeding despite femostop NIH Stroke [...] hemiparesis found to have acute distal R CORRESPONDENCE REVIEW CLERK occlusion now in the setting ofsevere R ICA stenosis s/p tPA. # Neuro- - neuro checks, VS as per thrombectomy protocol x 24h - HOB > 30 deg - obtain MRI brain wo to eval stroke burden - NCHCT 24h post-tPA to evaluate for any hemorrhage - PT/OT eval and treat - femostop to R SPRAY CEMENTER site per protocol # CV - - [...] to display. History of Present Illness: Johnson Tobra is a 73 y.o. male with a hx of CAD s/p CABGx3 MCKEON->LAD, Seq SVG->OM1->D1 and AVR 23 mm Inspriris bioprosthesis 06/13/2020 for severe , mid and proximal RCA PCI 06/2023, niddm2, HTN, HLD who presented to [facility] with chest pressure and lightheadeness and has been transferred to [facility] for further management. [...] CABG. He went to the ED at [facility]. At [facility], by the time the ED physician interviewed [...] started on heparin gtt and transferred to [facility]. On arrival at [facility], the pateint is chest pain free. His vitals are stable. Family hx: Father of [place] in his 40s. Social: lives with . [...] ANGIOPLASTY WITH STENT PLACEMENT 1997 PRG CATH PLRI LEFT HEART CATH & ARTS W/INJ & ANGIO IMG S&I N/A 05/17/2023 CORONARY ANGIOGRAPHY; W [facility],POSSIBLE PCI (WRVU 5.6) performed by Avani Danielle MD at [facility] CATHLABS PRG CATH PLRI LEFT HEART CATH & ARTS W/INJ & ANGIO IMG S&I N/A 06/26/2023 CORONARY ANGIOGRAPHY; W [facility],POSSIBLE PCI (WRVU 5.6) performed by Avani Danielle MD at [facility] CATHLABS PRO CABG, ARTERIAL, SINGLE Left 06/13/2020 @CABG, USING ARTERIAL GRAFT;SINGLE ARTERIAL GRAFT (WRVU 33.75) performed by Chun Wiley MD at [facility] MAIN OR PRO CABG, ARTERY-VEIN, TWO N/A 06/13/2020 @CABG, TWO VENOUS GRAFTS & ARTERIAL GRAFT (WRVU 7.93) performed by Chun Wiley MD at [facility] MAIN OR PRO ENDOSCOPY W/VIDEO-ASST VEIN HARVEST, CABG Right 06/13/2020 ENDOSCOPIC HARVEST VEIN(S) FOR CABG (WRVU 0.31) performed by Chun Wiley MD at [facility] MAIN OR PRO PERC TRLUML CORONARY STENT W/ANGIO ADDL ART/BRANCH N/A 06/26/2023 STENT PLACEMENT-EACH ADDITIONAL BRANCH OF A MAJOR CORONARY ARTERY (WRVU *) performed by Avani Danielle MD at [facility] CATH LABS PRO PERC TRLUML CORONARY STENT W/ANGIO ONE ART/BRANCH N/A 06/26/2023 STENT PLACEMENT-SINGLE MAJOR CORONARY ARTERY OR BRANCH (WRVU 10.96) performed by Avani Danielle MD at [facility] CATH LABS PRO REPLACEMENT PROSTHETIC AORTIC VALVE OPEN W CARDIOPULMONARY BYPASS HOMOGRF/STENT N/A 06/13/2020 @REPLACE AORTIC VALVE, OPEN, W\CPB, W\PROSTHETIC VALVE (WRVU 41.32) performed by Chun Wiley MD at [facility] MAIN OR Significant Family History: No [...] present. Extremities: No lower ext edema. Skin: [place] and warm. Neurologic: Awake, alert, oriented x [...] 06/2023, niddm2, HTN, HLD who presented to [facility] with chest pressure and lightheadeness and has been transferred to [facility] for further management. [...] if hypotensive / cardiogenic shock / inferior [place] / sildenafil within past 24 hours) - [...] PM EDTAssociated Order(s): EEG CONTINUOUS MONITORING INPATIENT [facility] Department of Neurology Inpatient Continuous Video [...] Earlier today, he was taken to the geoscience laboratory technician, though no intervention required. In [...] Video was recorded during the session. SUPERVISOR PLASTERING'S REPORT: Performed by: AT At the onset [...] - Epilepsy Fellow [facility] Department of Neurology 02/25/2024 * [...] & Follow-up Care: Contact information for follow-up [address] [address] Transportation: family or friend will provide Wheelchair [...] through: Primary Insurance: P MANAGED MEDICARE Payor: [facility] MANAGED MEDICARE / Plan: [facility] MANAGED MEDICARE / Product Type: [...] to: discuss discharge planning needs. provide the [facility], Office of Care Management letter from the [employer] pertaining to rehab referrals. provide a letter describing our affiliations within the [facility] and educate about their right to choose where referrals are sent. provide the CMS Star Quality Rating handout. review the different levels of rehab including SNF, swing, and acute. provide a list of facilities within their preferred geographic area. request that they provide at least three choices for referral. They have requested referrals to: [facility] Acute Rehabilitation and Sub-Acute (Swing) Rehab Levels of Care [address] [place] [address] Does patient have COVID vaccine card: No Note routed to a Grants Assistant who will communicate referrals to facilities and provide any required information. Transportation: TBD Barriers to discharge: None Plan going forward: Met with pt and spouse, they live [place] and [facility]. Referrals placed. Care Management [...] of Care Goal: Plan of Care Review 02/26/20241044 by Lili Tineo RN Outcome: Ongoing (Interventions Implemented as Appropriate) 02/26/2024 104 by Lili Tineo RN Outcome: Ongoing (Interventions Implemented as Appropriate) Goal: Patient-Specific Goal (Individualized) 02/26/2024 104 by Lili Tineo RN Outcome: Ongoing (Interventions Implemented as Appropriate) 02/26/20241039 by Lili Tineo RN Outcome: Ongoing (Interventions Implemented as Appropriate) Goal: Absence of Hospital-Acquired Illness or Injury 02/26/2024 104 by Lili Tineo RN Outcome: Ongoing (Interventions Implemented as Appropriate) 02/26/2024 104 by Lili Tineo RN Outcome: Ongoing (Interventions Implemented as Appropriate) Goal: Optimal Comfort and Wellbeing 02/26/2024 104 by Lili Tineo RN Outcome: Ongoing (Interventions Implemented as Appropriate) 02/26/20241039 by Lili Tineo RN Outcome: Ongoing (Interventions Implemented as Appropriate) Goal: Readiness for Transition of Care 02/26/2024 104 by Lili Tineo RN Outcome: Ongoing (Interventions Implemented as Appropriate) 02/26/2024 104 by Lili Tineo RN Outcome: Ongoing (Interventions Implemented as Appropriate) Problem: Fall Injury Risk Goal: Absence of Fall and Fall-Related Injury 02/26/2024 104 by Lili Tineo RN Outcome: Ongoing (Interventions Implemented as Appropriate) 02/26/20241039 by Lili Tineo RN Outcome: Ongoing (Interventions [...] arrived to [facility] s/p stroke alert/stroke in geoscience laboratory technician; patient received TPA, see life [...] Assessment: Stroke Alert called at 12:43 in [place] Consultant, Anesthesia had given Versed 1mg IV and [...] at bedside and agreed. TPA bolus began [id number] and TPA infusion started at 1421. Vitals [...] Earlier today, he was taken to the geoscience laboratory technician, though no intervention required. After [...] In: - Out: 400 [Urine:400] Recent Labs 02/24/2430102/23/242136 WBC 5.20 5.78 HGB 11.3* 11.7* HCT 33.2* 34.5* PLATELET 151 158 NEUTROABS 3.74 4.24 Recent Labs 02/24/2430102/23/247 NA 131* 129* K 4.0 4.0 CL 96* 94* CO2 19* 20* BUN 12 14 CREATININE 0.95 1.00 GLUCOSE 88 126 Recent Labs 02/24/2430102/23/247 CALCIUM 9.7 9.6 MAGNESIUM 0.44* 0.43* No results for input(s): AST, ALT, ALKPHOS, BILITOT, BILIDIR, LDH in the last 168 hours. No results for input(s): TROPONINT, CK in the last 168 hours. No results for input(s): PHART, UBL4BDG, PO2ART, NKV0XEE in the last 168 hours. No results for input(s): INR in the last 72 hours. Lipid Panel Recent Labs 02/24/24301 HA1C 8.3* Diagnostic Tests and Imaging: CTA Multiphase 02/24/2024 IMPRESSION 1. Right CORRESPONDENCE REVIEW CLERK occlusion (distal P2 segment). 2. Severe right [...] concerning for acute stroke. CTA demonstrated right CORRESPONDENCE REVIEW CLERK occlusion, severe right ICA origin stenosis, and [...] hA1C -Tele Please page Vascular Neurology at #[phone] with any questions. Susanna Cm APRN [place] [address] Neurology Attending Attestation I evaluated the patient [...] 06/2023, niddm2, HTN, HLD who presented to [facility] with chest pressure and lightheadeness and [facility]. Last COVID test: Lab Results Component Value Date COVID19 Not Detected 06/10/2020 Present on Admission: NSTEMI (non-ST elevated myocardial infarction) Daily Update: 02/23: [facility] today and d/c tomorrow or next day Surgery: 02/23: [facility] today Hospitalizations Within the Past 30 Days: no previous admission in last 30 days Patient receiving hospital care under Inpatient status. Admission order reviewed. Health/Prescription Coverage: Primary Insurance: [employer] Payor: [employer] / Plan: [employer] / Product Type: *No Product type* / Secondary Insurance: N/A ; Prescription Coverage: Yes Preferred Pharmacy: [id number] - [place], [place] - [address] [facility] [address] [facility] [address] Advance Care Planning: Attempt Cardiopulmonary Resuscitation - Inpatient <no information> -Advanced Directive: No, need to discuss (SDM:Emili Tobar (Spouse)) Current Functional Ability: Assistive Person Functional Status Prior to Admission: Independent Home Environment: Others in the home: spouse. Current Living Arrangements: home/apartment/condo. Accessibility Concerns:Lives with spouse No DME 2 levels to home 4 EARLE Bed upstairs Bath downstairs. Current DME: none [address] [place] [address] [address] [facility] [address] Social & Family Supports: All names listed below confirmed with patient as current and correct Extended Emergency Contact Information Primary Emergency Contact: Emili Tobar Address: [address] [place] [address] [address] [place] [address] [place] Relation: Spouse Secondary [...] via car when medically ready. Registered Nurse Senior Svp / Humanities Department Chair will continue to follow patient???s progress and remain available if situation changes for coordination of care, psychosocial support and/or discharge planning. Office of Care Management Phillip Bernabe RN RN/CM - Cellphone: [phone] Pager: [phone] Covering Service RN/CM documented in this encounter Plan of Treatment Upcoming Encounters Date Type Department Care Team (Late st Contact Info) Description 08/27/2024 2:30 PM EST [place] [address] Susanna Cm APRN [facility] [place] [address] Scheduled Referrals Name Type Priority Associated Diagnoses [...] type, unspecified whether angina present, unspecified whether [place] or transplanted heart POC, GLUCOSE Routine 02/24/2024 [...] type, unspecified whether angina present, unspecified whether [place] or transplanted heart POC, GLUCOSE Routine 02/23/2024 [...] - 199 mg/dL 03/02/2024 12:13 PM EDT [facility] Comment:Supplemental ranges: <140 mg/dL before meals <180 mg/dL all other times of the day. Blood CAPILLARY BLOOD / Unknown 03/02/2024 12:13 PM EDT 03/02/2024 12:14 PM EDT Kd Huggins MD POINT OF CARE TEST ORDERABLES [facility] [place] [address] * POC, GLUCOSE (03/02/2024 7:19 AM EDT) Glucometer, POC 156 65 - 199 mg/dL 03/02/2024 7:19 AM EDT [facility] Comment:Supplemental ranges: <140 mg/dL before meals <180 mg/dL all other times of the day. Blood CAPILLARY BLOOD / Unknown 03/02/2024 7:19 AM EDT 03/02/2024 7:19 AM EDT Kd Huggins MD POINT OF CARE TEST ORDERABLES [facility] [place] [address] * (ABNORMAL) CBC (with Diff) (03/02/2024 5:58 AM EDT) White Blood Cell 5.41 4.00 - 9.50 x10(3)/mc L 03/02/2024 6:35 AM EDT [facility] Red Blood Cell 3.61(L) 4.58 - 5.54 x10(6)/mc L 03/02/2024 6:35 AM EDT [facility] Hemoglobin 10.0(L) 13.7 - 16.5 g/dL 03/02/2024 6:35 AM EDT [facility] Hematocrit 28.9(L) 40.5 - 48.5 % 03/02/2024 6:35 AM EDT [facility] Mean Cell Volume 80.1(L) 82.9 - 93.1 fL 03/02/2024 6:35 AM EDT [facility] Mean Cell Hemoglobin 27.7 27.5 - 32.1 pg 03/02/2024 6:35 AM EDT [facility] Mean Cell Hemoglobin Concentration 34.6 32.0 - 35.7 g/dL 03/02/2024 6:35 AM EDT [facility] Platelet 253 145 - 357 x10(3)/mc L 03/02/2024 6:35 AM EDT [facility] Mean Platelet Volume 10.1 7.6 - 12.9 fL 03/02/2024 6:35 AM EDT [facility] RDW Standard Deviation 44.9 36.0 - 45.0 fL 03/02[facility]24 [facility] RDW coefficient of variation 15.3(H) 11.4 - 13.8 % 03/02/2024 6:35 AM [facility] NRBC% auto 0.0 % 03/02/2024 6:35 AM [facility] NRBC Absolute 0.00 0.00 - 0.00 x10(3)/mc L 03/02/2024 6:35 AM [facility] Neutrophil % 67.0 % 03/02/2024 6:35 AM [facility] Neutrophil Absolute (ANC) - Automated 3.62 1.70 - 6.10 x10(3)/mc L 03/02/2024 6:35 AM [facility] Lymph % 14.2 % 03/02/2024 6:35 AM [facility] Lymph Absolute 0.77(L) 0.90 - 3.20 x10(3)/mc L 03/02/2024 6:35 AM [facility] Monocyte % 14.4 % 03/02/2024 6:35 AM [facility] Monocyte Absolute 0.78 0.30 - 0.90 x10(3)/mc L 03/02/2024 6:35 AM [facility] Eos % 2.8 % 03/02/2024 6:35 AM [facility] Eos Absolute 0.15 0.00 - 0.40 x10(3)/mc L 03/02/2024 6:35 AM [facility] Basophil % 0.9 % 03/02/2024 6:35 AM [facility] Baso Absolute 0.05 0.00 - 0.10 x10(3)/mc L 03/02/2024 6:35 AM [facility] Immature Gran % 0.7 % 6:35 AM [facility] Immature Gran Absolute 0.04 0.00 - 0.04 x10(3)/mc L 03/02/2024 6:35 AM [facility] Blood VENOUS BLOOD SPECIMEN / Unknown IP Care Team Draw / Unknown 03/02/2024 5:58 AM EDT 03/02/2024 6:20 AM EDT Kd Huggins MD HEMATOLOGY ORDERAB LES [facility] [place] [address] * (ABNORMAL) Basic Metabolic Panel (03/02/2024 5:58 AM EDT) Glucose 159 65 - 199 mg/dL 03/02/2024 6:55 AM EDT [facility] Comment:Glucose Concentratio n >=200 mg/dL plus symptoms is consistent with Diabetes Mellitus. Blood Urea Nitrogen 12 10 - 20 mg/dL 03/02/2024 6:55 AM EDT [facility] Creatinine 0.96 0.80 - 1.50 mg/dL 03/02/2024 6:55 AM EDT [facility] Sodium 127(L) 135 - 145 mMol/L 03/02/2024 6:55 AM EDT [facility] Potassium 4.4 3.5 - 5.0 mMol/L 03/02/2024 6:55 AM [facility] Chloride 96(L) 98 - 107 mMol/L 03/02/2024 6:55 AM [facility] Carbon Dioxide 19(L) 22 - 31 mMol/L 03/02/2024 6:55 AM EDT [facility] Anion Gap 12 5 - 15 mMol/L 03/02/2024 6:55 AM [facility] Calcium 9.5 8.5 - 10.5 mg/dL 03/02/2024 6:[facility] Est Glomerular Filtration Rate - Male 83 mL/min/1. 73 m?? 03/02/2024 6:55 [facility] Comment: This patient's estimated [...] APRN CHEMISTRY ORDERABLE S Performing Organization Address City/[facility]/ZIP Co de Phone Number [facility] [place] [address] * POC, GLUCOSE (03/01/2024 8:24 PM EDT) Glucometer, POC 185 65 - 199 mg/dL 03/01/2024 8:24 PM EDT [facility] Comment:Supplemental ranges: <140 mg/dL before meals <180 mg/dL all other times of the day. Blood CAPILLARY BLOOD / Unknown 03/01/2024 8:24 PM EDT 03/01/2024 8:25 PM EDT Kd Huggins MD POINT OF CARE TEST ORDERABLES [facility] [place] [address] * POC, GLUCOSE (03/01/2024 4:27 PM EDT) Glucometer, POC 143 65 - 199 mg/dL 03/01/2024 4:27 PM EDT [facility] Comment:Supplemental ranges: <140 mg/dL before meals <180 mg/dL all other times of the day. Blood CAPILLARY BLOOD / Unknown 03/01/2024 4:27 PM EDT 03/01/2024 4:27 PM EDT Kd Huggins MD POINT OF CARE TEST ORDERABLES Performing Organization Address City/[facility] Co de Phone Number [facility] [place] [address] * POC, GLUCOSE (03/01/2024 11:33 AM EDT) Glucometer, POC 187 65 - 199 mg/dL 03/01/2024 11:33 AM EDT [facility] Comment:Supplemental ranges: <140 mg/dL before meals <180 mg/dL all other times of the day. Blood CAPILLARY BLOOD / Unknown 03/01/2024 11:33 AM EDT 03/01/2024 11:33 AM EDT Kd Huggins MD POINT OF CARE TEST ORDERABLES Performing Organization Address [facility] Co de Phone Number [facility] [place] [address] * POC, GLUCOSE (03/01/2024 7:11 AM EDT) Glucometer, POC 164 65 - 199 mg/dL 03/01/2024 7:11 AM EDT [facility] Comment:Supplemental ranges: <140 mg/dL before meals <180 mg/dL all other times of the day. Blood CAPILLARY BLOOD / Unknown 03/01/2024 7:11 AM EDT 03/01/2024 7:11 AM EDT Kd Huggins MD POINT OF CARE TEST ORDERABLES Performing Organization Address City/[facility]/ZIP Co de Phone Number [facility] [place] [address] * (ABNORMAL) Basic Metabolic Panel (03/01/2024 5:36 AM EDT) Glucose 150 65 - 199 mg/dL 03/01/2024 6:26 AM EDT [facility] Comment:Glucose Concentratio n >=200 mg/dL plus symptoms is consistent with Diabetes Mellitus. Blood Urea Nitrogen 13 10 - 20 mg/dL 03/01/2024 6:26 AM [facility] Creatinine 0.88 0.80 - 1.50 mg/dL 03/01/2024 6:26 AM [facility] Sodium 128(L) 135 - 145 mMol/L 03/01/2024 6:26 AM [facility] Potassium 4.5 3.5 - 5.0 mMol/L 03/01/2024 6:26 AM [facility] Chloride 95(L) 98 - 107 mMol/L 03/01/2024 6:26 AM [facility] Carbon Dioxide 19(L) 22 - 31 mMol/L 03/01/2024 6:26 AM [facility] Anion Gap 14 5 - 15 mMol/L 03/01/2024 6:26 AM [facility] Calcium 9.6 8.5 - 10.5 mg/dL 03/01/2024 6:26 AM [facility] Est Glomerular Filtration Rate - Male 90 mL/min/1. 73 m?? 03/01/2024 6:26 AM [facility] Comment: This patient's estimated [...] EDT 03/01/2024 5:51 AM EDT Susanna Cm INSURANCE EXAMINING CLERK CHEMISTRY ORDERABLE S [facility] [place] [address] * POC, GLUCOSE (02/29/2024 8:32 PM EDT) Glucometer, POC 171 65 - 199 mg/dL 02/29/2024 8:33 PM EDT [facility] Comment:Supplemental ranges: <140 mg/dL before meals <180 mg/dL all other times of the day. Blood CAPILLARY BLOOD / Unknown 02/29/2024 8:32 PM EDT 02/29/2024 8:33 PM EDT Kd Huggins MD POINT OF CARE TEST ORDERABLES Performing Organization Address [facility] Co de Phone Number [facility] [place] [address] * POC, GLUCOSE (02/29/2024 4:26 PM EDT) Glucometer, POC 105 65 - 199 mg/dL 02/29/2024 4:26 PM EDT [facility] Comment:Supplemental ranges: <140 mg/dL before meals <180 mg/dL all other times of the day. Blood CAPILLARY BLOOD / Unknown 02/29/2024 4:26 PM EDT 02/29/2024 4:26 PM EDT Kd Huggins MD POINT OF CARE TEST ORDERABLES Performing Organization Address City/[facility] Co de Phone Number [facility] [place] [address] * (ABNORMAL) POC, GLUCOSE (02/29/2024 11:51 AM EDT) Glucometer, POC 232(H) 65 - 199 mg/dL 02/29/2024 11:51 AM EDT [facility] Comment:Supplemental ranges: <140 mg/dL before meals <180 mg/dL all other times of the day. Blood CAPILLARY BLOOD / Unknown 02/29/2024 11:51 AM EDT 02/29/2024 11:51 AM EDT Kd Huggins MD POINT OF CARE TEST ORDERABLES Performing Organization Address [facility]/ZIP Co de Phone Number [facility] [place] [address] * (ABNORMAL) POC, GLUCOSE (02/29/2024 11:36 AM EDT) Glucometer, POC 259(H) 65 - 199 mg/dL 02/29/2024 11:36 AM EDT [facility] Comment:Supplemental ranges: <140 mg/dL before meals <180 mg/dL all other times of the day. Blood CAPILLARY BLOOD / Unknown 02/29/2024 11:36 AM EDT 02/29/2024 11:36 AM EDT Kd Huggins MD POINT OF CARE TEST ORDERABLES Performing Organization Address [facility] Co de Phone Number [facility] [place] [address] * POC, GLUCOSE (02/29/2024 7:31 AM EDT) Glucometer, POC 148 65 - 199 mg/dL 02/29/2024 7:32 AM EDT [facility] Comment:Supplemental ranges: <140 mg/dL before meals <180 mg/dL all other times of the day. Blood CAPILLARY BLOOD / Unknown 02/29/2024 7:31 AM EDT 02/29/2024 7:32 AM EDT Kd Huggins MD POINT OF CARE TEST ORDERABLES Performing Organization Address City/[facility]/ZIP Co de Phone Number [facility] [place] [address] * (ABNORMAL) Basic Metabolic Panel (02/29/2024 5:52 AM EDT) Glucose 152 65 - 199 mg/dL 02/29/2024 7:01 AM EDT [facility] Comment:Glucose Concentratio n >=200 mg/dL plus symptoms is consistent with Diabetes Mellitus. Blood Urea Nitrogen 15 10 - 20 mg/dL 02/29/2024 7:01 AM [facility] Creatinine 0.95 0.80 - 1.50 mg/dL 02/29/2024 7:01 AM [facility] Sodium 127(L) 135 - 145 mMol/L 02/29/2024 7:01 AM [facility] Potassium 4.1 3.5 - 5.0 mMol/L 02/29/2024 7:01 AM [facility] Chloride 93(L) 98 - 107 mMol/L 02/29/2024 7:01 AM [facility] Carbon Dioxide 20(L) 22 - 31 mMol/L 02/29/2024 7:01 AM [facility] Anion Gap 14 5 - 15 mMol/L 02/29/2024 7:01 AM [facility] Calcium 9.3 8.5 - 10.5 mg/dL 02/29/2024 7:01 AM [facility] Est Glomerular Filtration Rate - Male 84 mL/min/1. 73 m?? 02/29/2024 7:01 AM [facility] Comment: This patient's estimated [...] EDT 02/29/2024 6:26 AM EDT Susanna Cm APRN CHEMISTRY ORDERABLE S [facility] [place] [address] * POC, GLUCOSE (02/28/2024 9:22 PM EDT) Glucometer, POC 189 65 - 199 mg/dL 02/28/2024 9:22 PM EDT [facility] Comment:Supplemental ranges: <140 mg/dL before meals <180 mg/dL all other times of the day. Blood CAPILLARY BLOOD / Unknown 02/28/2024 9:22 PM EDT 02/28/2024 9:22 PM EDT Kd Huggins MD POINT OF CARE TEST ORDERABLES Performing Organization Address [facility]/ZIP Co de Phone Number [facility] [place] [address] * Urinalysis Microscopic Exam (02/28/2024 8:58 PM EDT) Bacteria, Urine None None /HPF 9:21 PM EDT [facility] RBC, Urine 3 0 - 3 /HPF 02/28/2024 9:21 PM EDT [facility] WBC, Urine 1 0 - 3 /HPF 02/28/2024 9:21 PM EDT [facility] Squamous Epithelial Cells, Urine 0 0 - 5 /HPF 02/28/2024 9:21 PM EDT [facility] Hyaline Casts, Urine 0 0 - 2 /LPF 02/28/2024 9:21 PM EDT [facility] Urine URINE SPECIMEN / Unknown Non Blood Collection / Unknown 02/28/2024 8:58 PM EDT 02/28/2024 9:08 PM EDT Kd Huggins MD URINE ORDERABLES Performing Organization Address City/[facility]/ZIP Co de Phone Number [facility] [place] [address] * (ABNORMAL) Urinalysis Dipstick (02/28/2024 8:58 PM EDT) Glucose, Urine Dipstick Negative Negative 02/28/2024 9:21 PM [facility] Protein, Urine Dipstick 100 mg/dL(A) Negative 02/28/2024 9:21 PM [facility] Bilirubin, Urine Dipstick Negative Negative 02/28/2024 9:21 PM [facility] Comment:Clinical correlation required for positive Urine Bilirubin results as false positive may occur with some drugs and drug related products. If a false positive is suspected a serum total bilirubin should be considered if clinically indicated. Urobilinogen, Urine Dipstick Normal Normal, 0.2 mg/dL, 1.0 mg/dL 02/28/2024 9:21 PM [facility] pH, Urine (dipstick) 6.0 5.0 - 8.0 02/28/2024 9:21 PM [facility] Blood, Urine Dipstick Trace(A) Negative 02/28/2024 9:21 PM [facility] Ketone, Urine Dipstick Negative Negative 02/28/2024 9:21 PM [facility] Nitrite, Urine Dipstick Negative Negative 02/28/2024 9:21 PM [facility] Leukocytes, Urine Dipstick Negative Negative 02/28/2024 9:21 PM [facility] Specific [place] Urine Automated 1.013 1.005 - 1.030 02/28/2024 9:21 PM [facility] Appearance, Urine Dipstick Clear Clear 02/28/2024 9:21 PM [facility] Color, Urine Dipstick Yellow Yellow, Dark Yellow 02/28/2024 9:21 PM [facility] Urine URINE SPECIMEN / Unknown Non Blood Collection / Unknown 02/28/2024 8:58 PM EDT 02/28/2024 9:08 PM EDT Kd Huggins MD URINE ORDERABLES [facility] [place] [address] * Electrolytes, urine, random (02/28/2024 8:58 PM EDT) Sodium, Urine <20 mMol/L 02/28/2024 10:09 PM EDT [facility] Potassium, Urine 17 mMol/L 02/28/2024 10:09 PM EDT [facility] Chloride, Urine <20 mMol/L 02/28/2024 10:09 PM EDT [facility] Urine URINE SPECIMEN / Unknown Non Blood Collection / Unknown 02/28/2024 8:58 PM EDT 02/28/2024 9:08 PM EDT Kd Huggins MD URINE ORDERABLES Performing Organization Address City/[facility]/ZIP Co de Phone Number [facility] [place] [address] * Osmolality, urine, random (02/28/2024 8:58 PM EDT) Osmolality, Urine 314 50 - 1,200 mOsm/kg 02/28/2024 10:27 PM EDT [facility] Urine URINE SPECIMEN / Unknown Non Blood Collection / Unknown 02/28/2024 8:58 PM EDT 02/28/2024 9:08 PM EDT Kd Huggins MD URINE ORDERABLES [facility] [place] [address] * (ABNORMAL) POC, GLUCOSE (02/28/2024 4:49 PM EDT) Glucometer, POC 220(H) 65 - 199 mg/dL 02/28/2024 4:49 PM EDT [facility] Comment:Supplemental ranges: <140 mg/dL before meals <180 mg/dL all other times of the day. Blood CAPILLARY BLOOD / Unknown 02/28/2024 4:49 PM EDT 02/28/2024 4:49 PM EDT Kd Huggins MD POINT OF CARE TEST ORDERABLES Performing Organization Address [facility] Co de Phone Number [facility] [place] [address] * (ABNORMAL) POC, GLUCOSE (02/28/2024 11:22 AM EDT) Glucometer, POC 219(H) 65 - 199 mg/dL 02/28/2024 11:22 AM EDT [facility] Comment:Supplemental ranges: <140 mg/dL before meals <180 mg/dL all other times of the day. Blood CAPILLARY BLOOD / Unknown 02/28/2024 11:22 AM EDT 02/28/2024 11:22 AM EDT Kd Huggins MD POINT OF CARE TEST ORDERABLES Performing Organization Address [facility] de Phone Number [facility] [place] [address] * XR Chest One View (02/28/2024 10:13 AM EDT) WORKSTATION ID [id number] DH RAD Anatomical Region Laterality Modality Chest [...] who have questions please contact the health healthcare receptionist that requested your imaging first. ? Electronically signed by: Theo Garcia MD, [facility] ([phone]), at 02/28/2024 12:27 PM Narrative 02/28/2024 12:27 [...] patients who have questions please contactthe health healthcare receptionist that requested your imaging first. Kd Huggins MD IMG DX ORDERABLES * POC, GLUCOSE (02/28/2024 7:24 AM EDT) Glucometer, POC 162 65 - 199 mg/dL 02/28/2024 7:24 AM EDT [facility] Comment:Supplemental ranges: <140 mg/dL before meals <180 mg/dL all other times of the day. Blood CAPILLARY BLOOD / Unknown 02/28/2024 7:24 AM EDT 02/28/2024 7:24 AM EDT Kd Huggins MD POINT OF CARE TEST ORDERABLES Performing Organization Address City/[facility]/ZIP Co de Phone Number [facility] [place] [address] * (ABNORMAL) Osmolality (02/28/2024 5:33 AM EDT) Osmolality 270(L) 275 - 295 mOsm/kg 02/28/2024 9:50 AM EDT [facility] Blood VENOUS BLOOD SPECIMEN / Unknown IP Care Team Draw / Unknown 02/28/2024 5:33 AM EDT 02/28/2024 5:54 AM EDT Kd Huggins MD CHEMISTRY ORDERABL ES [facility] [place] [address] * (ABNORMAL) Magnesium (02/28/2024 5:33 AM EDT) Magnesium 0.67(L) 0.69 - 1.07 mMol/L 02/28/2024 6:27 AM EDT [facility] Blood VENOUS BLOOD SPECIMEN / Unknown IP Care Team Draw / Unknown 02/28/2024 5:33 AM EDT 02/28/2024 5:54 AM EDT Susanna T Gorecki INSURANCE EXAMINING CLERK CHEMISTRY ORDERABLE S [facility] [place] [address] * (ABNORMAL) CBC (with Diff) (02/28/2024 5:33 AM EDT) White Blood Cell 5.45 4.00 - 9.50 x10(3)/mc L 02/28/2024 6:03 AM EDT [facility] Red Blood Cell 3.82(L) 4.58 - 5.54 x10(6)/mc L 02/28/2024 6:03 AM EDT [facility] Hemoglobin 10.4(L) 13.7 - 16.5 g/dL 02/28/2024 6:03 AM EDT [facility] Hematocrit 31.0(L) 40.5 - 48.5 % 02/28/2024 6:03 AM EDT [facility] Mean Cell Volume 81.2(L) 82.9 - 93.1 fL 02/28/2024 6:03 AM EDT [facility] Mean Cell Hemoglobin 27.2(L) 27.5 - 32.1 pg 02/28/2024 6:03 AM EDT [facility] Mean Cell Hemoglobin Concentration 33.5 32.0 - 35.7 g/dL 02/28/2024 6:03 AM EDT [facility] Platelet 210 145 - 357 x10(3)/mc L 02/28/2024 6:03 AM EDT [facility] Mean Platelet Volume 10.2 7.6 - 12.9 fL 02/28/2024 6:03 AM EDT [facility] RDW Standard Deviation 45.5(H) 36.0 - 45.0 fL 02/28/2024 6:03 AM [facility] RDW coefficient of variation 15.3(H) 11.4 - 13.8 % 02/28/2024 6:03 AM EDT [facility] NRBC% auto 0.0 % 02/28/2024 6:03 AM [facility] NRBC Absolute 0.00 0.00 - 0.00 x10(3)/mc L 02/28/2024 6:03 AM [facility] Neutrophil % 69.3 % 02/28/2024 6:03 AM [facility] Neutrophil Absolute (ANC) - Automated 3.78 1.70 - 6.10 x10(3)/mc L 02/28/2024 6:03 AM [facility] Lymph % 14.1 % 02/28/2024 6:03 AM [facility] Lymph Absolute 0.77(L) 0.90 - 3.20 x10(3)/mc L 02/28/2024 6:03 AM [facility] Monocyte % 11.6 % 02/28/2024 6:03 AM [facility] Monocyte Absolute 0.63 0.30 - 0.90 x10(3)/mc L 02/28/2024 6:03 AM [facility] Eos % 3.5 % 02/28/2024 6:03 AM [facility] Eos Absolute 0.19 0.00 - 0.40 x10(3)/mc L 02/28/2024 6:03 AM [facility] Basophil % 0.6 % 02/28/2024 6:03 AM [facility] Baso Absolute 0.03 0.00 - 0.10 x10(3)/mc L 02/28/2024 6:03 AM [facility] Immature Gran % 0.9 % 6:03 AM [facility] Immature Gran Absolute 0.05(H) 0.00 - 0.04 x10(3)/mc L 02/28/2024 6:03 AM [facility] LABORATORY Blood VENOUS BLOOD SPECIMEN / Unknown IP Care Team Draw / Unknown 02/28/2024 5:33 AM EDT 02/28/2024 5:54 AM EDT Susanna Cm INSURANCE EXAMINING CLERK HEMATOLOGY ORDERABL ES [facility] [place] [address] * (ABNORMAL) Basic Metabolic Panel (02/28/2024 5:33 AM EDT) Glucose 175 65 - 199 mg/dL 02/28/2024 6:27 AM T [facility] Comment:Glucose Concentratio n >=200 mg/dL plus symptoms is consistent with Diabetes Mellitus. Blood Urea Nitrogen 15 10 - 20 mg/dL 02/28/2024 6:27 AM [facility] Creatinine 1.05 0.80 - 1.50 mg/dL 02/28/2024 6:27 AM [facility] Sodium 125(L) 135 - 145 mMol/L 02/28/2024 6:27 AM [facility] Potassium 4.1 3.5 - 5.0 mMol/L 02/28/2024 6:27 AM [facility] Chloride 93(L) 98 - 107 mMol/L 02/28/2024 6:27 AM [facility] Carbon Dioxide 21(L) 22 - 31 mMol/L 02/28/2024 6:27 AM [facility] Anion Gap 11 5 - 15 mMol/L 02/28/2024 6:27 AM [facility] Calcium 8.9 8.5 - 10.5 mg/dL 02/28/2024 6:27 AM [facility] Est Glomerular Filtration Rate - Male 74 mL/min/1. 73 m?? 02/28/2024 6:27 AM [facility] Comment: This patient's estimated [...] EDT 02/28/2024 5:54 AM EDT Susanna Cm INSURANCE EXAMINING CLERK CHEMISTRY ORDERABLE S Performing Organization Address [facility] Co de Phone Number [facility] [place] [address] * (ABNORMAL) POC, GLUCOSE (02/27/2024 8:50 PM EDT) Glucometer, POC 225(H) 65 - 199 mg/dL 02/27/2024 8:50 PM EDT [facility] Comment:Supplemental ranges: <140 mg/dL before meals <180 mg/dL all other times of the day. Blood CAPILLARY BLOOD / Unknown 02/27/2024 8:50 PM EDT 02/27/2024 8:50 PM EDT Kd Huggins MD POINT OF CARE TEST ORDERABLES Performing Organization Address City/[facility]/ZIP Co de Phone Number [facility] [place] [address] * POC, GLUCOSE (02/27/2024 3:25 PM EDT) Glucometer, POC 192 65 - 199 mg/dL 02/27/2024 3:25 PM EDT [facility] Comment:Supplemental ranges: <140 mg/dL before meals <180 mg/dL all other times of the day. Blood CAPILLARY BLOOD / Unknown 02/27/2024 3:25 PM EDT 02/27/2024 3:25 PM EDT Kd Huggins MD POINT OF CARE TEST ORDERABLES Performing Organization Address [facility] Co de Phone Number [facility] [place] [address] * (ABNORMAL) POC, GLUCOSE (02/27/2024 11:09 AM EDT) Glucometer, POC 220(H) 65 - 199 mg/dL 02/27/2024 11:10 AM EDT [facility] Comment:Supplemental ranges: <140 mg/dL before meals <180 mg/dL all other times of the day. Blood CAPILLARY BLOOD / Unknown 02/27/2024 11:09 AM EDT 02/27/2024 11:10 AM EDT Kd Huggins MD POINT OF CARE TEST ORDERABLES Performing Organization Address [facility] Co de Phone Number [facility] [place] [address] * POC, GLUCOSE (02/27/2024 7:25 AM EDT) Glucometer, POC 148 65 - 199 mg/dL 02/27/2024 7:25 AM EDT [facility] Comment:Supplemental ranges: <140 mg/dL before meals <180 mg/dL all other times of the day. Blood CAPILLARY BLOOD / Unknown 02/27/2024 7:25 AM EDT 02/27/2024 7:25 AM EDT Kd Huggins MD POINT OF CARE TEST ORDERABLES Performing Organization Address City/[facility] Co de Phone Number [facility] [place] [address] * (ABNORMAL) Osmolality (02/27/2024 6:30 AM EDT) Osmolality 270(L) 275 - 295 mOsm/kg 02/28/2024 10:06 AM EDT [facility] Blood VENOUS BLOOD SPECIMEN / Unknown IP Care Team Draw / Unknown 02/27/2024 6:30 AM EDT 02/27/2024 6:59 AM EDT Kd Huggins MD CHEMISTRY ORDERABL ES Performing Organization Address City/[facility]/ZIP Co de Phone Number [facility] [place] [address] * (ABNORMAL) Magnesium (02/27/2024 6:30 AM EDT) Pathologist [facility] Magnesium 0.63(L) 0.69 - 1.07 mMol/L 02/27/2024 7:43 AM EDT [facility] Blood VENOUS BLOOD SPECIMEN / Unknown IP Care Team Draw / Unknown 02/27/2024 6:30 AM EDT 02/27/2024 6:59 AM EDT Susanna Cm APRN CHEMISTRY ORDERABLE S Performing Organization Address [facility]/ZIP Co de Phone Number [facility] [place] [address] * (ABNORMAL) CBC (with Diff) (02/27/2024 6:30 AM EDT) [facility] White Blood Cell 5.78 4.00 - 9.50 x10(3)/mc L 02/27/2024 7:06 AM EDT [facility] Red Blood Cell 3.80(L) 4.58 - 5.54 x10(6)/mc L 02/27/2024 7:06 AM EDT [facility] Hemoglobin 10.5(L) 13.7 - 16.5 g/dL 02/27/2024 7:06 AM EDT [facility] Hematocrit 30.5(L) 40.5 - 48.5 % 02/27/2024 7:06 AM EDT [facility] Mean Cell Volume 80.3(L) 82.9 - 93.1 fL 02/27/2024 7:06 AM EDT [facility] Mean Cell Hemoglobin 27.6 27.5 - 32.1 pg 02/27/2024 7:06 AM EDT [facility] Mean Cell Hemoglobin Concentration 34.4 32.0 - 35.7 g/dL 02/27/2024 7:06 AM [facility] Platelet 179 145 - 357 x10(3)/mc L 02/27/2024 7:06 AM [facility] Mean Platelet Volume 10.5 7.6 - 12.9 fL 02/27/2024 7:06 AM [facility] RDW Standard Deviation 44.2 36.0 - 45.0 fL 02/27/2024 7:06 AM [facility] RDW coefficient of variation 15.1(H) 11.4 - 13.8 % 02/27/2024 7:06 AM [facility] NRBC% auto 0.0 % 02/27/2024 7:06 AM [facility] NRBC Absolute 0.00 0.00 - 0.00 x10(3)/mc L 02/27/2024 7:06 AM [facility] Neutrophil % 66.4 % 02/27/2024 7:06 AM [facility] Neutrophil Absolute (ANC) - Automated 3.84 1.70 - 6.10 x10(3)/mc L 02/27/2024 7:06 AM [facility] Lymph % 16.4 % 02/27/2024 7:06 AM [facility] Lymph Absolute 0.95 0.90 - 3.20 x10(3)/mc L 02/27/2024 7:06 AM [facility] Monocyte % 12.5 % 02/27/2024 7:06 AM [facility] Monocyte Absolute 0.72 0.30 - 0.90 x10(3)/mc L 02/27/2024 7:06 AM [facility] Eos % 3.1 % 02/27/2024 7:06 AM [facility] Eos Absolute 0.18 0.00 - 0.40 x10(3)/mc L 02/27/2024 7:06 AM EDT [facility] Basophil % 0.9 % 02/27/2024 7:06 AM EDT [facility] Baso Absolute 0.05 0.00 - 0.10 x10(3)/mc L 02/27/2024 7:06 AM EDT [facility] Immature Gran % 0.7 % 7:06 AM EDT [facility] Immature Gran Absolute 0.04 0.00 - 0.04 x10(3)/mc L 02/27/2024 7:06 AM EDT [facility] Blood VENOUS BLOOD SPECIMEN / Unknown IP Care Team Draw / Unknown 02/27/2024 6:30 AM EDT 02/27/2024 6:59 AM EDT Susanna Cm INSURANCE EXAMINING CLERK HEMATOLOGY ORDERABL ES [facility] [place] [address] * (ABNORMAL) Basic Metabolic Panel (02/27/2024 6:30 AM EDT) Glucose 138 65 - 199 mg/dL 02/27/2024 7:43 AM EDT [facility] Comment:Glucose Concentratio n >=200 mg/dL plus symptoms is consistent with Diabetes Mellitus. Blood Urea Nitrogen 11 10 - 20 mg/dL 02/27/2024 7:43 AM EDT [facility] Creatinine 1.00 0.80 - 1.50 mg/dL 02/27/2024 7:43 AM EDT [facility] Sodium 128(L) 135 - 145 mMol/L 02/27/2024 7:43 AM EDT [facility] Potassium 4.3 3.5 - 5.0 mMol/L 02/27/2024 7:43 AM EDT [facility] Chloride 95(L) 98 - 107 mMol/L 02/27/2024 7:43 AM EDT [facility] Carbon Dioxide 22 22 - 31 mMol/L 02/27/2024 7:43 AM EDT [facility] Anion Gap 11 5 - 15 mMol/L 02/27/2024 7:43 AM EDT [facility] Calcium 9.0 8.5 - 10.5 mg/dL 02/27/2024 7:43 AM EDT [facility] Est Glomerular Filtration Rate - Male 79 mL/min/1. 73 m?? 02/27/2024 7:43 AM EDT [facility] Comment: This patient's estimated [...] EDT Susanna Cm APRN CHEMISTRY ORDERABLE S [facility] [place] [address] * POC, GLUCOSE (02/26/2024 9:14 PM EDT) [facility] Signature Glucometer, POC 140 65 - 199 mg/dL 02/26/2024 9:15 PM EDT [facility] Comment:Supplemental ranges: <140 mg/dL before meals <180 mg/dL all other times of the day. Blood CAPILLARY BLOOD / Unknown 02/26/2024 9:14 PM EDT 02/26/2024 9:15 PM EDT Arti Griffin MD POINT OF CARE TEST ORDERABLES Performing Organization Address City/[facility]/ZIP Co de Phone Number [facility] [place] [address] * POC, GLUCOSE (02/26/2024 5:00 PM EDT) Glucometer, POC 158 65 - 199 mg/dL 02/26/2024 5:00 PM EDT [facility] Comment:Supplemental ranges: <140 mg/dL before meals <180 mg/dL all other times of the day. Blood CAPILLARY BLOOD / Unknown 02/26/2024 5:00 PM EDT 02/26/2024 5:00 PM EDT Kd Huggins MD POINT OF CARE TEST ORDERABLES Performing Organization Address [facility] Co de Phone Number [facility] [place] [address] * POC, GLUCOSE (02/26/2024 3:51 PM EDT) Glucometer, POC 187 65 - 199 mg/dL 02/26/2024 3:52 PM EDT [facility] Comment:Supplemental ranges: <140 mg/dL before meals <180 mg/dL all other times of the day. Blood CAPILLARY BLOOD / Unknown 02/26/2024 3:51 PM EDT 02/26/2024 3:52 PM EDT Kd Huggins MD POINT OF CARE TEST ORDERABLES Performing Organization Address City/[facility]/ZIP Co de Phone Number [facility] [place] [address] * POC, GLUCOSE (02/26/2024 11:31 AM EDT) Glucometer, POC 128 65 - 199 mg/dL 02/26/2024 11:31 AM EDT [facility] Comment:Supplemental ranges: <140 mg/dL before meals <180 mg/dL all other times of the day. Blood CAPILLARY BLOOD / Unknown 02/26/2024 11:31 AM EDT 02/26/2024 11:31 AM EDT Kd Huggins MD POINT OF CARE TEST ORDERABLES [facility] [place] [address] * (ABNORMAL) POC, GLUCOSE (02/26/2024 9:35 AM EDT) Glucometer, POC 244(H) 65 - 199 mg/dL 02/26/2024 9:35 AM EDT [facility] Comment:Supplemental ranges: <140 mg/dL before meals <180 mg/dL all other times of the day. Blood CAPILLARY BLOOD / Unknown 02/26/2024 9:35 AM EDT 02/26/2024 9:36 AM EDT Kd Huggins MD POINT OF CARE TEST ORDERABLES Performing Organization Address City/[facility]/ZIP Co de Phone Number [facility] [place] [address] * (ABNORMAL) POC, GLUCOSE (02/26/2024 7:41 AM EDT) Glucometer, POC 276(H) 65 - 199 mg/dL 02/26/2024 7:41 AM EDT [facility] Comment:Supplemental ranges: <140 mg/dL before meals <180 mg/dL all other times of the day. Blood CAPILLARY BLOOD / Unknown 02/26/2024 7:41 AM EDT 02/26/2024 7:41 AM EDT Arti Griffin MD POINT OF CARE TEST ORDERABLES [facility] [place] [address] * POC, GLUCOSE (02/26/2024 3:21 AM EDT) Glucometer, POC 105 65 - 199 mg/dL 02/26/2024 3:21 AM EDT [facility] Comment:Supplemental ranges: <140 mg/dL before meals <180 mg/dL all other times of the day. Blood CAPILLARY BLOOD / Unknown 02/26/2024 3:21 AM EDT 02/26/2024 3:22 AM EDT Arti Griffin MD POINT OF CARE TEST ORDERABLES Performing Organization Address City/[facility]/ZIP Co de Phone Number [facility] [place] [address] * Osmolality (02/26/2024 12:04 AM EDT) Osmolality 275 275 - 295 mOsm/kg 02/28/2024 2:43 PM EDT [facility] Blood VENOUS BLOOD SPECIMEN / Unknown IP Care Team Draw / Unknown 02/26/2024 12:04 AM EDT 02/26/2024 12:11 AM EDT Kd Huggins MD CHEMISTRY ORDERABL ES Performing Organization Address [facility] Co de Phone Number [facility] [place] [address] * POC, GLUCOSE (02/26/2024 12:04 AM EDT) Glucometer, POC 181 65 - 199 mg/dL 02/26/2024 12:04 AM EDT [facility] Comment:Supplemental ranges: <140 mg/dL before meals <180 mg/dL all other times of the day. Blood CAPILLARY BLOOD / Unknown 02/26/2024 12:04 AM EDT 02/26/2024 12:04 AM EDT Arti Griffin MD POINT OF CARE TEST ORDERABLES Performing Organization Address [facility] Co de Phone Number [facility] [place] [address] * Magnesium (02/26/2024 12:04 AM EDT) Magnesium 0.79 0.69 - 1.07 mMol/L 02/26/2024 12:42 AM EDT [facility] Blood VENOUS BLOOD SPECIMEN / Unknown IP Care Team Draw / Unknown 02/26/2024 12:04 AM EDT 02/26/2024 12:11 AM EDT Susanna Cm INSURANCE EXAMINING CLERK CHEMISTRY ORDERABLE S [facility] [place] [address] * (ABNORMAL) CBC (with Diff) (02/26/2024 12:04 AM EDT) White Blood Cell 5.76 4.00 - 9.50 x10(3)/mc L 02/26/2024 12:17 AM EDT [facility] Red Blood Cell 3.81(L) 4.58 - 5.54 x10(6)/mc L 02/26/2024 12:17 AM EDT [facility] Hemoglobin 10.6(L) 13.7 - 16.5 g/dL 02/26/2024 12:17 AM [facility] Hematocrit 31.0(L) 40.5 - 48.5 % 02/26/2024 12:[facility] Mean Cell Volume 81.4(L) 82.9 - 93.1 fL 02/26/2024 12:17 AM EDT [facility] Mean Cell Hemoglobin 27.8 27.5 - 32.1 pg 02/26/2024 12:17 AM T [facility] Mean Cell Hemoglobin Concentration 34.2 32.0 - 35.7 g/dL 02/26/2024 12:17 AM EDT [facility] Platelet 186 145 - 357 x10(3)/mc L 02/26/2024 12:17 [facility] Mean Platelet Volume 10.3 7.6 - 12.9 fL 02/26/2024 12:17 [facility] RDW Standard Deviation 45.5(H) 36.0 - 45.0 fL 02/26/2024 12:17 AM [facility] RDW coefficient of variation 15.4(H) 11.4 - 13.8 % 02/26/2024 12:17 AM [facility] NRBC% auto 0.0 % 02/26/2024 12:17 AM [facility] NRBC Absolute 0.00 0.00 - 0.00 x10(3)/mc L 02/26/2024 12:17 AM [facility] Neutrophil % 71.0 % 02/26/2024 12:17 AM [facility] Neutrophil Absolute (ANC) - Automated 4.09 1.70 - 6.10 x10(3)/mc L 02/26/2024 12:17 AM [facility] Lymph % 16.0 % 02/26/2024 12:17 AM [facility] Lymph Absolute 0.92 0.90 - 3.20 x10(3)/mc L 02/26/2024 12:17 AM [facility] Monocyte % 9.7 % 02/26/2024 12:17 AM [facility] Monocyte Absolute 0.56 0.30 - 0.90 x10(3)/mc L 02/26/2024 12:17 AM [facility] Eos % 2.3 % 02/26/2024 12:17 AM [facility] Eos Absolute 0.13 0.00 - 0.40 x10(3)/mc L 02/26/2024 12:17 AM [facility] Basophil % 0.5 % 02/26/2024 12:17 AM [facility] Baso Absolute 0.03 0.00 - 0.10 x10(3)/mc L 02/26/2024 12:17 AM [facility] Immature Gran % 0.5 % 12:17 AM EDT [facility] Immature Gran Absolute 0.03 0.00 - 0.04 x10(3)/mc L 02/26/2024 12:17 AM EDT [facility] Blood VENOUS BLOOD SPECIMEN / Unknown IP Care Team Draw / Unknown 02/26/2024 12:04 AM EDT 02/26/2024 12:11 AM EDT Susanna Cm INSURANCE EXAMINING CLERK HEMATOLOGY ORDERABL ES [facility] [place] [address] * (ABNORMAL) Basic Metabolic Panel (02/26/2024 12:04 AM EDT) Glucose 182 65 - 199 mg/dL 02/26/2024 12:42 AM [facility] Comment:Glucose Concentratio n >=200 mg/dL plus symptoms is consistent with Diabetes Mellitus. Blood Urea Nitrogen 11 10 - 20 mg/dL 02/26/2024 12:42 AM [facility] Creatinine 0.97 0.80 - 1.50 mg/dL 02/26/2024 12:42 AM [facility] Sodium 129(L) 135 - 145 mMol/L 02/26/2024 12:42 AM [facility] Potassium 4.5 3.5 - 5.0 mMol/L 02/26/2024 12:42 AM [facility] Chloride 94(L) 98 - 107 mMol/L 02/26/2024 12:42 AM [facility] Carbon Dioxide 23 22 - 31 mMol/L 02/26/2024 12:42 AM [facility] Anion Gap 12 5 - 15 mMol/L 02/26/2024 12:42 AM [facility] Calcium 8.9 8.5 - 10.5 mg/dL 02/26/2024 12:42 AM [facility] Est Glomerular Filtration Rate - Male 82 mL/min/1. 73 m?? 02/26/2024 12:42 AM EDT [facility] Comment: This patient's estimated [...] APRN CHEMISTRY ORDERABLE S Performing Organization Address City/[facility]/ZIP Co de Phone Number [facility] [place] [address] * POC, GLUCOSE (02/25/2024 7:39 PM EDT) Glucometer, POC 112 65 - 199 mg/dL 02/25/2024 7:39 PM EDT [facility] Comment:Supplemental ranges: <140 mg/dL before meals <180 mg/dL all other times of the day. Blood CAPILLARY BLOOD / Unknown 02/25/2024 7:39 PM EDT 02/25/2024 7:39 PM EDT Arti Griffin MD POINT OF CARE TEST ORDERABLES [facility] [place] [address] * POC, GLUCOSE (02/25/2024 4:11 PM EDT) Glucometer, POC 169 65 - 199 mg/dL 02/25/2024 4:11 PM EDT [facility] Comment:Supplemental ranges: <140 mg/dL before meals <180 mg/dL all other times of the day. Blood CAPILLARY BLOOD / Unknown 02/25/2024 4:11 PM EDT 02/25/2024 4:11 PM EDT Arti Griffin MD POINT OF CARE TEST ORDERABLES Performing Organization Address City/State/[facility] Co de Phone Number [facility] [place] [address] * EEG Continuous Monitoring Inpatient (02/25/2024 4:00 PM EDT) Narrative Josias Hyman MD - 02/25/2024 4:00 PM EDT Josias Hyman MD ? 02/25/2024 ??4:02 PM [facility] Department of Neurology Inpatient Continuous Video [...] ??Earlier today, he was taken to the geoscience laboratory technician, though no intervention required. ??In [...] Video was recorded during the session. SUPERVISOR PLASTERING'S REPORT: Performed by: AT At the onset [...] - Epilepsy Fellow [facility] Department of Neurology 02/25/2024 Susanna Cm INSURANCE EXAMINING CLERK NEUROLOGY ORDERABLE S * MRI Brain wo Contrast (02/25/2024 3:06 PM EDT) WORKSTATION ID [id number] RAD Anatomical Region Laterality Modality Head Magnetic [...] who have questions please contact the health healthcare receptionist that requested your imaging first. ? Narrative [...] patients who have questions please contactthe health healthcare receptionist that requested your imaging first. Gonzalez Barajas MD IMG MRI ORDERABLES * Carotid Duplex, Bilateral (02/25/2024 2:32 PM EDT) VB Text Report Department: Vascular Surgery Lab Patient: [id number] (JOHNSON TOBAR) CPT: 61402 Referring Physician: SUSANNA CM ?? Phone: Indications: [...] VASCUBASE 02/25/2024 2:32 PM EDT Susanna Cm INSURANCE EXAMINING CLERK VASCULAR ORDERABLES [facility]CU[place] * (ABNORMAL) Basic Metabolic Panel (02/25/2024 1:12 PM EDT) Glucose 171 65 - 199 mg/dL 02/25/2024 4:00 PM [facility] Comment:Glucose Concentratio n >=200 mg/dL plus symptoms is consistent with Diabetes Mellitus. Blood Urea Nitrogen 11 10 - 20 mg/dL 02/25/2024 4:00 PM [facility] Creatinine 1.00 0.80 - 1.50 mg/dL 02/25/2024 4:00 PM [facility] Sodium 129(L) 135 - 145 mMol/L 02/25/2024 4:00 PM [facility] Potassium 4.4 3.5 - 5.0 mMol/L 02/25/2024 4:00 PM [facility] Chloride 94(L) 98 - 107 mMol/L 02/25/2024 4:00 PM [facility] Carbon Dioxide 22 22 - 31 mMol/L 02/25/2024 4:00 PM [facility] Anion Gap 13 5 - 15 mMol/L 02/25/2024 4:00 PM [facility] Calcium 9.4 8.5 - 10.5 mg/dL 02/25/2024 4:00 PM [facility] Est Glomerular Filtration Rate - Male 79 mL/min/1. 73 m?? 02/25/2024 4:00 PM [facility] Comment: This patient's estimated [...] MD CHEMISTRY ORDERABL ES Performing Organization Address City/[facility]/ZIP Co de Phone Number [facility] [place] [address] * POC, GLUCOSE (02/25/2024 12:44 PM EDT) Glucometer, POC 143 65 - 199 mg/dL 02/25/2024 12:45 PM EDT [facility] Comment:Supplemental ranges: <140 mg/dL before meals <180 mg/dL all other times of the day. Blood CAPILLARY BLOOD / Unknown 02/25/2024 12:44 PM EDT 02/25/2024 12:45 PM EDT Gonzalez Barajas MD POINT OF CARE TEST ORDERABLES Performing Organization Address City/[facility]/ZIP Co de Phone Number [facility] [place] [address] * POC, GLUCOSE (02/25/2024 7:29 AM EDT) Glucometer, POC 123 65 - 199 mg/dL 02/25/2024 7:30 AM EDT [facility] Comment:Supplemental ranges: <140 mg/dL before meals <180 mg/dL all other times of the day. Blood CAPILLARY BLOOD / Unknown 02/25/2024 7:29 AM EDT 02/25/2024 7:30 AM EDT Gonzalez Barajas MD POINT OF CARE TEST ORDERABLES [facility] [place] [address] * (ABNORMAL) POC, GLUCOSE (02/25/2024 3:58 AM EDT) [facility] Glucometer, POC 252(H) 65 - 199 mg/dL 02/25/2024 3:58 AM EDT [facility] Comment:Supplemental ranges: <140 mg/dL before meals <180 mg/dL all other times of the day. Blood CAPILLARY BLOOD / Unknown 02/25/2024 3:58 AM EDT 02/25/2024 3:58 AM EDT Gonzalez Barajas MD POINT OF CARE TEST ORDERABLES Performing Organization Address [facility]/ZIP Co de Phone Number [facility] [place] [address] * (ABNORMAL) Magnesium (02/25/2024 1:06 AM EDT) [facility] Magnesium 0.63(L) 0.69 - 1.07 mMol/L 02/25/2024 1:53 AM EDT [facility] Blood VENOUS BLOOD SPECIMEN / Unknown IP Care Team Draw / Unknown 02/25/2024 1:06 AM EDT 02/25/2024 1:12 AM EDT Susanna Cm APRN CHEMISTRY ORDERABLE S Performing Organization Address City/[facility]/ZIP Co de Phone Number [facility] [place] [address] * (ABNORMAL) CBC (with Diff) (02/25/2024 1:06 AM EDT) [facility] White Blood Cell 5.55 4.00 - 9.50 x10(3)/mc L 02/25/2024 1:29 AM EDT [facility] Red Blood Cell 3.97(L) 4.58 - 5.54 x10(6)/mc L 02/25/2024 1:29 AM EDT [facility] Hemoglobin 10.9(L) 13.7 - 16.5 g/dL 02/25/2024 1:29 AM [facility] Hematocrit 31.6(L) 40.5 - 48.5 % 02/25/2024 1:29 AM [facility] [facility] Mean Cell Volume 79.6(L) 82.9 - 93.1 fL 02/25/2024 1:29 AM [facility] Mean Cell Hemoglobin 27.5 27.5 - 32.1 pg 02/25/2024 1:29 AM [facility] Mean Cell Hemoglobin Concentration 34.5 32.0 - 35.7 g/dL 02/25/2024 1:29 AM [facility] Platelet 173 145 - 357 x10(3)/mc L 02/25/2024 1:29 AM [facility] Mean Platelet Volume 10.4 7.6 - 12.9 fL 02/25/2024 1:29 AM [facility] RDW Standard Deviation 44.6 36.0 - 45.0 fL 02/25/2024 1:29 AM [facility] RDW coefficient of variation 15.2(H) 11.4 - 13.8 % 02/25/2024 1:29 AM [facility] NRBC% auto 0.0 % 02/25/2024 1:29 AM [facility] NRBC Absolute 0.00 0.00 - 0.00 x10(3)/mc L 02/25/2024 1:29 AM [facility] Neutrophil % 71.1 % 02/25/2024 1:29 AM [facility] Neutrophil Absolute (ANC) - Automated 3.95 1.70 - 6.10 x10(3)/mc L 02/25/2024 1:29 AM [facility] Lymph % 13.2 % 02/25/2024 1:29 AM [facility] Lymph Absolute 0.73(L) 0.90 - 3.20 x10(3)/mc L 02/25/2024 1:29 AM EDT [facility] Monocyte % 12.6 % 02/25/2024 1:29 AM EDT [facility] Monocyte Absolute 0.70 0.30 - 0.90 x10(3)/mc L 02/25/2024 1:29 AM EDT [facility] Eos % 2.2 % 02/25/2024 1:29 AM EDT [facility] Eos Absolute 0.12 0.00 - 0.40 x10(3)/mc L 02/25/2024 1:29 AM EDT [facility] Basophil % 0.4 % 02/25/2024 1:29 AM EDT [facility] Baso Absolute 0.02 0.00 - 0.10 x10(3)/mc L 02/25/2024 1:29 AM EDT [facility] Immature Gran % 0.5 % 1:29 AM EDT [facility] Immature Gran Absolute 0.03 0.00 - 0.04 x10(3)/mc L 02/25/2024 1:29 AM EDT [facility] Blood VENOUS BLOOD SPECIMEN / Unknown IP Care Team Draw / Unknown 02/25/2024 1:06 AM EDT 02/25/2024 1:12 AM EDT Susanna Cm INSURANCE EXAMINING CLERK HEMATOLOGY ORDERABL ES [facility] [place] [address] * (ABNORMAL) Basic Metabolic Panel (02/25/2024 1:06 AM EDT) Glucose 112 65 - 199 mg/dL 02/25/2024 1:53 AM EDT [facility] Comment:Glucose Concentratio n >=200 mg/dL plus symptoms is consistent with Diabetes Mellitus. Blood Urea Nitrogen 13 10 - 20 mg/dL 02/25/2024 1:53 AM [facility] Creatinine 1.00 0.80 - 1.50 mg/dL 02/25/2024 1:53 AM [facility] Sodium 130(L) 135 - 145 mMol/L 02/25/2024 1:53 AM [facility] Potassium 4.3 3.5 - 5.0 mMol/L 02/25/2024 1:53 AM [facility] Chloride 95(L) 98 - 107 mMol/L 02/25/2024 1:53 AM [facility] Carbon Dioxide 22 22 - 31 mMol/L 02/25/2024 1:53 AM [facility] Anion Gap 13 5 - 15 mMol/L 02/25/2024 1:53 AM [facility] Calcium 9.4 8.5 - 10.5 mg/dL 02/25/2024 1:53 AM [facility] Est Glomerular Filtration Rate - Male 79 mL/min/1. 73 m?? 02/25/2024 1:53 AM [facility] Comment: This patient's estimated [...] EDT 02/25/2024 1:12 AM EDT Susanna Cm INSURANCE EXAMINING CLERK CHEMISTRY ORDERABLE S [facility] [place] [address] * POC, GLUCOSE (02/24/2024 11:55 PM EDT) Glucometer, POC 143 65 - 199 mg/dL 02/24/2024 11:56 PM EDT [facility] Comment:Supplemental ranges: <140 mg/dL before meals <180 mg/dL all other times of the day. Blood CAPILLARY BLOOD / Unknown 02/24/2024 11:55 PM EDT 02/24/2024 11:56 PM EDT Gonzalez Barajas MD POINT OF CARE TEST ORDERABLES [facility] [place] [address] * CT Head WO Contrast Dual Energy (Post MT/TPA) (02/24/2024 10:04 PM EDT) WORKSTATION ID [id number] DH RAD Anatomical Region Laterality Modality Head [...] who have questions please contact the health healthcare receptionist that requested your imaging first. ? Electronically signed by: Artur Palafox MD, [facility] ([phone]), at 02/25/2024 1:25 AM Narrative 02/25/2024 1:25 [...] patients who have questions please contactthe health healthcare receptionist that requested your imaging first. Gonzalez Barajas MD IMG CT ORDERABLES * (ABNORMAL) POC, GLUCOSE (02/24/2024 9:00 PM EDT) Glucometer, POC 230(H) 65 - 199 mg/dL 02/24/2024 9:00 PM EDT [facility] Comment:Supplemental ranges: <140 mg/dL before meals <180 mg/dL all other times of the day. Blood CAPILLARY BLOOD / Unknown 02/24/2024 9:00 PM EDT 02/24/2024 9:00 PM EDT Gonzalez Barajas MD POINT OF CARE TEST ORDERABLES Performing Organization Address City/[facility]/ZIP Co de Phone Number [facility] [place] [address] * Electrolytes, urine, random (02/24/2024 8:58 PM EDT) Sodium, Urine 22 mMol/L 02/28/2024 8:18 AM EDT [facility] Potassium, Urine 68 mMol/L 02/28/2024 8:18 AM EDT [facility] Chloride, Urine <20 mMol/L 02/28/2024 8:18 AM EDT [facility] Urine URINE SPECIMEN / Unknown Non Blood Collection / Unknown 02/24/2024 8:58 PM EDT 02/24/2024 9:35 PM EDT Kd Huggins MD URINE ORDERABLES Performing Organization Address City/[facility]/ZIP Co de Phone Number [facility] [place] [address] * Osmolality, urine, random (02/24/2024 8:58 PM EDT) Osmolality, Urine 685 50 - 1,200 mOsm/kg 02/24/2024 11:35 PM EDT [facility] Urine URINE SPECIMEN / Unknown Non Blood Collection / Unknown 02/24/2024 8:58 PM EDT 02/24/2024 11:32 PM EDT Gonzalez Barajas MD URINE ORDERABLES [facility] [place] [address] * Osmolality (02/24/2024 8:58 PM EDT) Osmolality 275 275 - 295 mOsm/kg 02/25/2024 12:20 AM EDT [facility] Blood VENOUS BLOOD SPECIMEN / Unknown IP Care Team Draw / Unknown 02/24/2024 8:58 PM EDT 02/24/2024 9:35 PM EDT Fariba Ramirez MD CHEMISTRY ORDERABLES [facility] [place] [address] * POC, GLUCOSE (02/24/2024 6:45 PM EDT) Glucometer, POC 142 65 - 199 mg/dL 02/24/2024 6:45 PM EDT [facility] Comment:Supplemental ranges: <140 mg/dL before meals <180 mg/dL all other times of the day. Blood CAPILLARY BLOOD / Unknown 02/24/2024 6:45 PM EDT 02/24/2024 6:45 PM EDT Gonzalez Barajas MD POINT OF CARE TEST ORDERABLES [facility] [place] [address] * POC, GLUCOSE (02/24/2024 3:24 PM EDT) Pathologist [facility] Glucometer, POC 138 65 - 199 mg/dL 02/24/2024 3:24 PM EDT [facility] Comment:Supplemental ranges: <140 mg/dL before meals <180 mg/dL all other times of the day. Blood CAPILLARY BLOOD / Unknown 02/24/2024 3:24 PM EDT 02/24/2024 3:24 PM EDT Gonzalez Barajas MD POINT OF CARE TEST ORDERABLES Performing Organization Address City/[facility]/ZIP Co de Phone Number [facility] [place] [address] * TSH (02/24/2024 1:31 PM EDT) [facility] Thyroid Stimulating Hormone 2.07 0.27 - 4.20 mcIU/mL 02/24/2024 7:48 PM EDT [facility] Blood VENOUS BLOOD SPECIMEN / Unknown 02/24/2024 1:31 PM EDT 02/24/2024 1:48 PM EDT Gonzalez Barajas MD CHEMISTRY ORDERABL ES Performing Organization Address City/[facility]/ZIP Co de Phone Number [facility] [place] [address] * Lipid Panel (Reflex Direct LDL) (02/24/2024 1:31 PM EDT) [facility] Cholesterol, Total 91 mg/dL 02/24/2024 7:48 PM EDT [facility] Comment: Desirable: < 200 mg/dL Borderline High: 200 - 239 mg/dL High: > or = 240 mg/dL Triglyceride 122 mg/dL 02/24/2024 7:48 PM EDT [facility] Comment: Normal: <150 mg/dL Borderline High: 150-199 mg/dL High: 200-499 mg/dL Very High: > or =500 mg/dL HDL Cholesterol 32 mg/dL 7:48 PM EDT [facility] Comment:Males: High Risk: <4 0 mg/dL LDL Cholesterol 37 mg/dL 7:48 PM EDT [facility] Comment: Desirable: <100 mg/dL Above Desirable: 100-129 mg/dL Borderline High: 130-159 mg/dL High: 160-189 mg/dL Very High: > or =190 mg/dL Note: LDL calculation updated to the NIH LDL formula as of 02/16/2024 Non-HDL Cholesterol 59 mg/dL 02/24/2024 7:48 PM EDT [facility] Comment: Desirable: <130 mg/dL Above Desirable: 130-159 mg/dL Borderline High: 160-189 mg/dL High: 190-219 mg/dL Very High: > or = 220 mg/dL Blood VENOUS BLOOD SPECIMEN / Unknown 02/24/2024 1:31 PM EDT 02/24/2024 1:48 PM EDT [facility] - 02/24/2024 7:48 PM EDT [...] disease) Gonzalez Barajas MD CHEMISTRY ORDERABL ES [facility] [place] [address] * (ABNORMAL) CBC (with Diff) (02/24/2024 1:31 PM EDT) White Blood Cell 4.94 4.00 - 9.50 x10(3)/mc L 02/24/2024 1:54 PM EDT [facility] Red Blood Cell 3.80(L) 4.58 - 5.54 x10(6)/mc L 02/24/2024 1:54 PM EDT [facility] Hemoglobin 10.5(L) 13.7 - 16.5 g/dL 02/24/2024 1:54 PM EDT [facility] Hematocrit 30.7(L) 40.5 - 48.5 % 02/24/2024 1:54 PM EDT [facility] Mean Cell Volume 80.8(L) 82.9 - 93.1 fL 02/24/2024 1:54 PM [facility] Mean Cell Hemoglobin 27.6 27.5 - 32.1 pg 02/24/2024 1:54 PM [facility] Mean Cell Hemoglobin Concentration 34.2 32.0 - 35.7 g/dL 02/24/2024 1:54 PM [facility] Platelet 172 145 - 357 x10(3)/mc L 02/24/2024 1:54 PM [facility] Mean Platelet Volume 10.3 7.6 - 12.9 fL 02/24/2024 1:54 PM [facility] RDW Standard Deviation 46.0(H) 36.0 - 45.0 fL 02/24/2024 1:54 PM [facility] RDW coefficient of variation 15.6(H) 11.4 - 13.8 % 02/24/2024 1:54 PM [facility] NRBC% auto 0.0 % 02/24/2024 1:54 PM [facility] NRBC Absolute 0.00 0.00 - 0.00 x10(3)/mc L 02/24/2024 1:54 PM [facility] Neutrophil % 68.5 % 02/24/2024 1:54 PM [facility] Neutrophil Absolute (ANC) - Automated 3.38 1.70 - 6.10 x10(3)/mc L 02/24/2024 1:54 PM [facility] Lymph % 16.4 % 02/24/2024 1:54 PM [facility] Lymph Absolute 0.81(L) 0.90 - 3.20 x10(3)/mc L 02/24/2024 1:54 PM [facility] Monocyte % 11.5 % 02/24/2024 1:54 PM [facility] Monocyte Absolute 0.57 0.30 - 0.90 x10(3)/mc L 02/24/2024 1:54 PM EDT [facility] Eos % 2.2 % 02/24/2024 1:54 PM EDT [facility] Eos Absolute 0.11 0.00 - 0.40 x10(3)/mc L 02/24/2024 1:54 PM EDT [facility] Basophil % 0.4 % 02/24/2024 1:54 PM EDT [facility] Baso Absolute 0.02 0.00 - 0.10 x10(3)/mc L 02/24/2024 1:54 PM EDT [facility] Immature Gran % 1.0 % 1:54 PM EDT [facility] Immature Gran Absolute 0.05(H) 0.00 - 0.04 x10(3)/mc L 02/24/2024 1:54 PM EDT [facility] Blood VENOUS BLOOD SPECIMEN / Unknown 02/24/2024 1:31 PM EDT 02/24/2024 1:49 PM EDT Susanna Cm INSURANCE EXAMINING CLERK HEMATOLOGY ORDERABL ES [facility] [place] [address] * (ABNORMAL) Basic Metabolic Panel (02/24/2024 1:31 PM EDT) Glucose 137 65 - 199 mg/dL 02/24/2024 3:54 PM EDT [facility] Comment:Glucose Concentratio n >=200 mg/dL plus symptoms is consistent with Diabetes Mellitus. Blood Urea Nitrogen 11 10 - 20 mg/dL 02/24/2024 3:54 PM EDT [facility] Creatinine 1.05 0.80 - 1.50 mg/dL 02/24/2024 3:54 PM EDT [facility] Sodium 126(L) 135 - 145 mMol/L 02/24/2024 3:54 PM EDT [facility] Potassium 4.2 3.5 - 5.0 mMol/L 02/24/2024 3:54 PM EDT [facility] Chloride 95(L) 98 - 107 mMol/L 02/24/2024 3:54 PM EDT [facility] Carbon Dioxide 20(L) 22 - 31 mMol/L 02/24/2024 3:54 PM EDT [facility] Anion Gap 11 5 - 15 mMol/L 02/24/2024 3:54 PM EDT [facility] Calcium 8.7 8.5 - 10.5 mg/dL 02/24/2024 3:54 PM EDT [facility] Est Glomerular Filtration Rate - Male 74 mL/min/1. 73 m?? 02/24/2024 3:54 PM EDT [facility] Comment: This patient's estimated [...] EDT 02/24/2024 1:48 PM EDT Susanna Cm INSURANCE EXAMINING CLERK CHEMISTRY ORDERABLE S [facility] [place] [address] * Prothrombin Time (02/24/2024 1:25 PM EDT) Prothrombin Time 12.3 9.4 - 12.5 sec 02/24/2024 2:01 PM EDT [facility] International Normalization Ratio 1.1 <=4.9 02/24/2024 2:01 PM EDT [facility] Comment: An INR < [...] APRN HEMATOLOGY ORDERABL ES Performing Organization Address [facility] Co de Phone Number [facility] [place] [address] * APTT (02/24/2024 1:25 PM EDT) Partial Thromboplastin Time 29 25 - 37 sec 02/24/2024 2:01 PM EDT [facility] Comment: The PTT is NOT appropriate for heparin monitoring. Use the Anti-Xa level for heparin monitoring (HEP UFH) or LMWH monitoring (HEP LMW). A PTT less than 37 seconds generally indicates adequate hemostasis. Blood VENOUS BLOOD SPECIMEN / Unknown 02/24/2024 1:25 PM EDT 02/24/2024 1:37 PM EDT Fariba Ramirez MD HEMATOLOGY ORDERABLE S Performing Organization Address [facility] Co de Phone Number [facility] [place] [address] * CT Head wo Contrast (Generic) (02/24/2024 1:10 PM EDT) WORKSTATION ID [id number] RAD Anatomical Region Laterality Modality Head Computed Tomogra phy Impressions 02/24/2024 2:49 PM EDT 1. ??Right CORRESPONDENCE REVIEW CLERK occlusion (distal P2 segment). 2. ??Severe right [...] who have questions please contact the health healthcare receptionist that requested your imaging first. ? Electronically signed by: Kingston Dukes MD, [facility] ([phone]), at 02/24/2024 2:49 PM Narrative 02/24/2024 2:49 PM EDT EXAMINATION: CT HEAD WO CONTRAST (GENERIC), CTA HEAD/NECK MULTIPHASE (THROMBECTOMY PROTOCOL) CLINICAL HISTORY: stroke alert TECHNIQUE: CT of head without intravenous contrast. Multiphase CTA of the carotids and ramona of Ponce is performed after the administration of 65cc of Omnipaque 350 intravenous contrast. MIP and 3-D volumetric reconstructions were created. COMPARISON: None FINDINGS: CT Head: No acute intracranial hemorrhage or mass effect. Cheung-white matter differentiation is maintained. ??Normal caliber ventricles. Patent basal cisterns.. Imaged paranasal sinuses and mastoid air cells are clear. CTA [place] of [place]: Intradural segments of the internal carotid arteries are patent. ??Normal course and caliber of the middle and anterior cerebral arteries. Dominant left vertebral artery is normal caliber. Calcified atheroma moderate-severely narrow the intradural right vertebral artery. Normal basilar artery. Occluded mid-distal P2 segment of the right CORRESPONDENCE REVIEW CLERK without distal reconstitution. No filling on delayed [...] intravenous contrast. Multiphase CTA of the carotidsand ramona of Ponce is performed after the administration of 65cc ofOmnipaque 350 intravenous contrast. MIP and 3-D volumetric reconstructions werecreated. COMPARISON: None FINDINGS: CT Head: No acute intracranial hemorrhage or mass effect. Chueng-white matter differentiation is maintained. Normal caliber ventricles. Patent basal cisterns.. Imaged paranasal sinuses and mastoid air cells are clear. CTA [place] of [place]: Intradural segments of the internal carotid arteries are patent. Normalcourse and caliber of the middle and anterior cerebral arteries. Dominant left vertebral artery is normal caliber. Calcified atheroma moderate-severely narrow the intradural right vertebral artery. Normalbasilar artery. Occluded mid-distal P2 segment of the right CORRESPONDENCE REVIEW CLERK without distalreconstitution. No filling on delayed images. [...] be exaggerated by respiratorymotion. IMPRESSION 1. Right CORRESPONDENCE REVIEW CLERK occlusion (distal P2 segment). 2. Severe right [...] patients who have questions please contactthe health healthcare receptionist that requested your imaging first. Electronically signed by: Kingston Dukes MD, [facility]([phone]), at 02/24/2024 2:49 PM Susanna Cm INSURANCE EXAMINING CLERK IMG CT ORDERABLES * CTA Head/Neck Multiphase (Thrombectomy Protocol) (02/24/2024 1:10 PM EDT) [facility] Signature WORKSTATION ID [id number] RAD Anatomical Region Laterality Modality Head Computed Tomogra phy Impressions 02/24/2024 2:49 PM EDT 1. ??Right CORRESPONDENCE REVIEW CLERK occlusion (distal P2 segment). 2. ??Severe right [...] who have questions please contact the health healthcare receptionist that requested your imaging first. ? Electronically signed by: Kingston Dukes MD, [facility] ([phone]), at 02/24/2024 2:49 PM Narrative 02/24/2024 2:49 PM EDT EXAMINATION: CT HEAD WO CONTRAST (GENERIC), CTA HEAD/NECK MULTIPHASE (THROMBECTOMY PROTOCOL) CLINICAL HISTORY: stroke alert TECHNIQUE: CT of head without intravenous contrast. Multiphase CTA of the carotids and ramona of Ponce is performed after the administration of 65cc of Omnipaque 350 intravenous contrast. MIP and 3-D volumetric reconstructions were created. COMPARISON: None FINDINGS: CT Head: No acute intracranial hemorrhage or mass effect. Cheung-white matter differentiation is maintained. ??Normal caliber ventricles. Patent basal cisterns.. Imaged paranasal sinuses and mastoid air cells are clear. CTA Gray[place] of [place]: Intradural segments of the internal carotid arteries are patent. ??Normal course and caliber of the middle and anterior cerebral arteries. Dominant left vertebral artery is normal caliber. Calcified atheroma moderate-severely narrow the intradural right vertebral artery. Normal basilar artery. Occluded mid-distal P2 segment of the right CORRESPONDENCE REVIEW CLERK without distal reconstitution. No filling on delayed [...] intravenous contrast. Multiphase CTA of the carotidsand ramona of Ponce is performed after the administration of 65cc ofOmnipaque 350 intravenous contrast. MIP and 3-D volumetric reconstructions werecreated. COMPARISON: None FINDINGS: CT Head: No acute intracranial hemorrhage or mass effect. Cheung-white matter differentiation is maintained. Normal caliber ventricles. Patent basal cisterns.. Imaged paranasal sinuses and mastoid air cells are clear. CTA [place] of [place]: Intradural segments of the internal carotid arteries are patent. Normalcourse and caliber of the middle and anterior cerebral arteries. Dominant left vertebral artery is normal caliber. Calcified atheroma moderate-severely narrow the intradural right vertebral artery. Normalbasilar artery. Occluded mid-distal P2 segment of the right CORRESPONDENCE REVIEW CLERK without distalreconstitution. No filling on delayed images. [...] be exaggerated by respiratorymotion. IMPRESSION 1. Right CORRESPONDENCE REVIEW CLERK occlusion (distal P2 segment). 2. Severe right [...] patients who have questions please contactthe health healthcare receptionist that requested your imaging first. Electronically signed by: Kingston Dukes MD, [facility]([phone]), at 02/24/2024 2:49 PM Susanna Cm INSURANCE EXAMINING CLERK IMG CT ORDERABLES * POC, GLUCOSE (02/24/2024 12:45 PM EDT) [facility] Signature Glucometer, POC 124 65 - 199 mg/dL 02/24/2024 12:46 PM EDT [facility] Comment:Supplemental ranges: <140 mg/dL before meals <180 mg/dL all other times of the day. Blood CAPILLARY BLOOD / Unknown 02/24/2024 12:45 PM EDT 02/24/2024 12:46 PM EDT Fariba Ramirez MD POINT OF CARE TEST O RDERABLES Performing Organization Address City/State/[facility] Co de Phone Number [facility] [place] [address] * CARDIAC CATHETERIZATION (02/24/2024 12:32 PM EDT) Anatomical Region Laterality Modality Other Narrative 02/25/2024 4:57 PM EDT ?[facility] ? Cardiac Catheterization/Intervention Report ? Patient Name: Ekaterina, Johnson R. ? Procedure Date: 02/24/2024 ? A #: [id number] ? Primary Physician: Mogadam, Emad ? Case #: [id number] ? File Name: [id number] ? Catheterization Order Number: [id number] ? [facility] ? Final Report [place], [place] ? Patient Name: ? Johnson R. Ekaterina ? ID#: ?[id number] ? : ?1950 ? Procedure Date: ? February 24, 2024 ?Case #: ? [id number] ? Room: ? 2 ? Case Physician: ? Emad Choco Dc ? Start: ?11:37 ?Fellow: ? Mauricio Chi [...] was designated as ASA Class III. The [facility] clinical ?frailty scale [...] procedure was Urgent. The indication for ?the geoscience laboratory technician visit is ACS greater than [...] Procedure Note Zara Dc MD - 03/06/2024 [facility] Cardiac Catheterization/Intervention Report Patient Name: Johnson Tobar Procedure Date: 02/24/2024 A #: [id number] Primary Physician: Zara Dc Case #: [id number] File Name: [id number] Catheterization Order Number: [id number] [facility] FinalReport [place], [place] Patient Name: Johnson Tobar ID#:[id number] :1950 Procedure Date: February 24, 2024 Case [...] diagnostic procedure was Urgent. The indicationfor the geoscience laboratory technician visit is ACS greater than [...] - 199 mg/dL 02/24/2024 11:05 AM EDT [facility] Comment:Supplemental ranges: <140 mg/dL before meals <180 mg/dL all other times of the day. Blood CAPILLARY BLOOD / Unknown 02/24/2024 11:05 AM EDT 02/24/2024 11:05 AM EDT Fariba Ramirez MD POINT OF CARE TEST O RDERABLES [facility] [place] [address] * ECHO COMPLETE W CONTRAST (02/24/2024 9:18 AM EDT) EF 55 HEARTLAB SYSTEM Anatomical Region Laterality Modality Cardiac Other 02/24/2024 6:53 AM EDT Narrative 02/24/2024 9:58 AM EDT [address] [place] [address] ? Echocardiogram Report Name: EKATERINAJOHNSON SANTILLAN R ?Study Date: 02/24/2024 06:53 AMBP: 131/77 mmHg ? Patient Location: L4WB^463^A : 1950 ? Height: 170 cm ? Account: [id number] Age: 73 yrs ? Weight: 75 kg Gender: Male ?BSA: 1.9 m2 Ordering Physician: MAURICIO JEAN Referring Physician: ARIEL LYNN Performed By: Kim Donahue RDCS Reason For Study: CAD Exam Location: [facility]. Interpretation Summary Technically difficult study despite [...] with a DEBORAH if clinically indicated. Procedure Complete-[id number]. Image enhancement Optison was used for left [...] Note Darron Manzanares MD - 02/24/2024 [address] [place] [id number] Echocardiogram Report Name: EKATERINAJOHNSON Maribel Study Date: 406:53 AMBP: 131/77 mmHg Patient Location:[facility]^463^A : 1950 Height: 170 cm Account: [id number] Age: 73 yrs Weight: 75 kg Gender: Male BSA: 1.9 m2 Ordering Physician: MAURICIO JEAN Referring Physician: ARIEL LYNN Performed By: Kim Donahue RDCS Reason For Study: CAD Exam Location: [facility]. Interpretation Summary Technically difficult study despite [...] with a DEBORAH if clinically indicated. Procedure Complete-92034. Image enhancement Optison was used for left [...] - 199 mg/dL 02/24/2024 7:39 AM EDT [facility] Comment:Supplemental ranges: <140 mg/dL before meals <180 mg/dL all other times of the day. Blood CAPILLARY BLOOD / Unknown 02/24/2024 7:40 AM EDT 02/24/2024 7:40 AM EDT Fariba Ramirez MD POINT OF CARE TEST O RDERABLES [facility] [place] [place] [address] * Prothrombin Time (02/24/2024 3:02 AM EDT) Prothrombin Time 12.3 9.4 - 12.5 sec 02/24/2024 1:32 PM EDT [facility] International Normalization Ratio 1.1 <=4.9 02/24/2024 1:32 PM EDT [facility] Comment: An INR < [...] EDT Fariba Ramirez MD HEMATOLOGY ORDERABLE S [facility] [place] [address] * (ABNORMAL) Hemoglobin A1c (02/24/2024 3:02 AM EDT) Hemoglobin A1c 8.3(H) 4.3 - 5.6 % 02/24/2024 10:42 AM EDT [facility] Comment: Per ADA guidelines, [...] red blood cell turnover may not be hotel services sales representative of glycemic control. Reference Interval: 4.3 - 5.6% 5.7 - 6.4%: Consistent with prediabetes >=6.5%: Consistent with diagnosis of diabetes mellitus Estimated Average Glucose 02/24/2024 10:42 AM EDT [facility] Comment:Not Calculated. Blood VENOUS BLOOD SPECIMEN / Unknown IP Care Team Draw / Unknown 02/24/2024 3:02 AM EDT 02/24/2024 3:07 AM EDT Narrative [facility] - 02/24/2024 10:42 AM EDT Estimated average glucose (eAG) is calculated from the equation described in: Johnathan BOO, Cira J, Mak R, et al. ??Translating the A1C assay into estimated average glucose values. ??Diabetes Care 2008:31(8):7626-4292. Additional resources are available on the ADA website (diabetes.org). Fariba Ramirez MD CHEMISTRY ORDERABLES Performing Organization Address City/[facility]/ZIP Co de Phone Number [facility] [place] [address] * (ABNORMAL) Troponin - Single (02/24/2024 3:02 AM EDT) [facility] Troponin-T, High Sensitivity 141(H) <=22 ng/L 02/24/2024 6:30 AM EDT [facility] Comment: This patient's troponin [...] troponin value can be found in the [facility] Test Catalog Troponin - [email or web address]/catalogs/565/files/[email or web address] Reference: Fourth [place] Definition of Myocardial Infarction. Journal of the [place] College [employer]iology 2018;72:8304-7485 Blood VENOUS BLOOD SPECIMEN / Unknown IP Care Team Draw / Unknown 02/24/2024 3:02 AM EDT 02/24/2024 3:07 AM EDT Mauricio Jean MD CHEMISTRY ORDERABLES Performing Organization Address City/[facility]/ZIP Co de Phone Number [facility] [place] [address] * Heparin (unfractionated) Level (02/24/2024 3:02 AM EDT) Pathologist [facility] UF Heparin 0.23 IU/mL 02/24/2024 3:25 AM EDT [facility] Comment: Heparin (anti-Xa) levels [...] EDT Mauricio Jean MD HEMATOLOGY ORDERABLE S [facility] [place] [address] * (ABNORMAL) Magnesium (02/24/2024 3:02 AM EDT) Pathologist [facility] Magnesium 0.44(L) 0.69 - 1.07 mMol/L 02/24/2024 3:38 AM EDT [facility] Blood VENOUS BLOOD SPECIMEN / Unknown IP Care Team Draw / Unknown 02/24/2024 3:02 AM EDT 02/24/2024 3:07 AM EDT Marina Schmitz INSURANCE EXAMINING CLERK CHEMISTRY ORDERAB LES [facility] [place] [address] * (ABNORMAL) Basic Metabolic Panel (02/24/2024 3:02 AM EDT) Glucose 88 65 - 199 mg/dL 02/24/2024 3:38 AM [facility] Comment:Glucose Concentratio n >=200 mg/dL plus symptoms is consistent with Diabetes Mellitus. Blood Urea Nitrogen 12 10 - 20 mg/dL 02/24/2024 3:38 AM [facility] Creatinine 0.95 0.80 - 1.50 mg/dL 02/24/2024 3:38 AM [facility] Sodium 131(L) 135 - 145 mMol/L 02/24/2024 3:38 AM [facility] Potassium 4.0 3.5 - 5.0 mMol/L 02/24/2024 3:38 AM [facility] Chloride 96(L) 98 - 107 mMol/L 02/24/2024 3:38 AM [facility] Carbon Dioxide 19(L) 22 - 31 mMol/L 02/24/2024 3:38 AM [facility] Anion Gap 16(H) 5 - 15 mMol/L 02/24/2024 3:38 AM [facility] Calcium 9.7 8.5 - 10.5 mg/dL 02/24/2024 3:38 AM [facility] Est Glomerular Filtration Rate - Male 84 mL/min/1. 73 m?? 02/24/2024 3:38 AM [facility] Comment: This patient's estimated [...] EDT 02/24/2024 3:07 AM EDT Marina Schmitz INSURANCE EXAMINING CLERK CHEMISTRY ORDERAB LES [facility] [place] [address] * (ABNORMAL) CBC (with Diff) (02/24/2024 3:02 AM EDT) White Blood Cell 5.20 4.00 - 9.50 x10(3)/mc L 02/24/2024 3:13 AM EDT [facility] Red Blood Cell 4.11(L) 4.58 - 5.54 x10(6)/mc L 02/24/2024 3:13 AM EDT [facility] Hemoglobin 11.3(L) 13.7 - 16.5 g/dL 02/24/2024 3:13 AM EDT [facility] Hematocrit 33.2(L) 40.5 - 48.5 % 02/24/2024 3:13 AM [facility] Mean Cell Volume 80.8(L) 82.9 - 93.1 fL 02/24/2024 3:13 AM [facility] Mean Cell Hemoglobin 27.5 27.5 - 32.1 pg 02/24/2024 3:13 AM EDT [facility] Mean Cell Hemoglobin Concentration 34.0 32.0 - 35.7 g/dL 02/24/2024 3:13 AM [facility] Platelet 151 145 - 357 x10(3)/mc L 02/24/2024 3:[facility] Mean Platelet Volume 10.6 7.6 - 12.9 fL 02/24/2024 3:13 AM [facility] RDW Standard Deviation 46.5(H) 36.0 - 45.0 fL 02/24/2024 3:13 AM [facility] RDW coefficient of variation 15.7(H) 11.4 - 13.8 % 02/24/2024 3:13 AM [facility] NRBC% auto 0.0 % 02/24/2024 3:13 AM [facility] NRBC Absolute 0.00 0.00 - 0.00 x10(3)/mc L 02/24/2024 3:13 AM [facility] Neutrophil % 71.9 % 02/24/2024 3:13 AM [facility] Neutrophil Absolute (ANC) - Automated 3.74 1.70 - 6.10 x10(3)/mc L 02/24/2024 3:13 AM [facility] Lymph % 13.3 % 02/24/2024 3:13 AM [facility] Lymph Absolute 0.69(L) 0.90 - 3.20 x10(3)/mc L 02/24/2024 3:13 AM [facility] Monocyte % 11.3 % 02/24/2024 3:13 AM [facility] Monocyte Absolute 0.59 0.30 - 0.90 x10(3)/mc L 02/24/2024 3:13 AM [facility] Eos % 2.5 % 02/24/2024 3:13 AM [facility] Eos Absolute 0.13 0.00 - 0.40 x10(3)/mc L 02/24/2024 3:13 AM [facility] Basophil % 0.4 % 02/24/2024 3:13 AM [facility] Baso Absolute 0.02 0.00 - 0.10 x10(3)/mc L 02/24/2024 3:13 AM [facility] Immature Gran % 0.6 % 3:13 AM [facility] Immature Gran Absolute 0.03 0.00 - 0.04 x10(3)/mc L 02/24/2024 3:13 AM EDT [facility] Blood VENOUS BLOOD SPECIMEN / Unknown IP Care Team Draw / Unknown 02/24/2024 3:02 AM EDT 02/24/2024 3:07 AM EDT Mauricio Jean MD HEMATOLOGY ORDERABLE S [facility] [place] [address] * EKG 12 Lead (02/24/2024 2:00 AM EDT) Ventricular rate 84 BPM MUSE SYSTEM Atrial Rate 84 BPM MUSE SYSTEM P-R Interval 124 ms MUSE SYSTEM QRS Duration 80 ms MUSE SYSTEM Q-T Interval 372 ms MUSE SYSTEM QTC Calculated (Bezet) 439 ms MUSE SYSTEM Calculated P Hubbard 59 degrees MUSE SYSTEM Calculated R Hubbard -8 degrees MUSE SYSTEM Calculated T Hubbard 0 degrees MUSE SYSTEM INTERPRETATION Normal sinus rhythm Possible Left atrial enlargement Inferior infarct (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-2020) Borderline ST depression Lateral leads Abnormal ECG When compared with ECG of 26-JUN-2023 13:17, No significant change was found I personally reviewed the tracing and edited the fellows interpretation Confirmed by fellow MD Sunshine, Carl ([id number]) on 02/24/2024 10:56:50 AM Confirmed by MD Darrick, Marshal ([id number]) on 02/25/2024 5:56:17 AM MUSE SYSTEM 02/24/2024 2:00 AM EDT 02/25/2024 5:56 AM EDT Mauricio Jean MD ECG ORDERABLES MUSE SYSTEM * POC, GLUCOSE (02/23/2024 9:40 PM EDT) Glucometer, POC 135 65 - 199 mg/dL 02/23/2024 9:40 PM EDT [facility] Comment:Supplemental ranges: <140 mg/dL before meals <180 mg/dL all other times of the day. Blood CAPILLARY BLOOD / Unknown 02/23/2024 9:40 PM EDT 02/23/2024 9:40 PM EDT Kal Puentes MD POINT OF CARE TEST O RDERABLES Performing Organization Address [facility]/ZIP Co de Phone Number [facility] [place] [address] * (ABNORMAL) Magnesium (02/23/2024 9:37 PM EDT) Magnesium 0.43(L) 0.69 - 1.07 mMol/L 02/23/2024 10:19 PM EDT [facility] Blood VENOUS BLOOD SPECIMEN / Unknown IP Care Team Draw / Unknown 02/23/2024 9:37 PM EDT 02/23/2024 9:42 PM EDT Marina Schmitz INSURANCE EXAMINING CLERK CHEMISTRY ORDERAB LES Performing Organization Address City/[facility]/ZIP Co de Phone Number [facility] [place] [address] * (ABNORMAL) Basic Metabolic Panel (02/23/2024 9:37 PM EDT) Glucose 126 65 - 199 mg/dL 02/23/2024 10:19 PM EDT [facility] Comment:Glucose Concentratio n >=200 mg/dL plus symptoms is consistent with Diabetes Mellitus. Blood Urea Nitrogen 14 10 - 20 mg/dL 02/23/2024 10:19 PM EDT [facility] Creatinine 1.00 0.80 - 1.50 mg/dL 02/23/2024 10:19 PM EDT [facility] Sodium 129(L) 135 - 145 mMol/L 02/23/2024 10:19 PM EDT [facility] Potassium 4.0 3.5 - 5.0 mMol/L 02/23/2024 10:19 PM EDT [facility] Chloride 94(L) 98 - 107 mMol/L 02/23/2024 10:19 PM EDT [facility] Carbon Dioxide 20(L) 22 - 31 mMol/L 02/23/2024 10:19 PM EDT [facility] Anion Gap 15 5 - 15 mMol/L 02/23/2024 10:19 PM EDT [facility] Calcium 9.6 8.5 - 10.5 mg/dL 02/23/2024 10:19 PM EDT [facility] Est Glomerular Filtration Rate - Male 79 mL/min/1. 73 m?? 02/23/2024 10:19 PM EDT [facility] Comment: This patient's estimated [...] EDT 02/23/2024 9:42 PM EDT Marina Schmitz INSURANCE EXAMINING CLERK CHEMISTRY ORDERAB LES [facility] [place] [address] * (ABNORMAL) CBC (with Diff) (02/23/2024 9:37 PM EDT) White Blood Cell 5.78 4.00 - 9.50 x10(3)/mc L 02/23/2024 9:52 PM EDT [facility] Red Blood Cell 4.24(L) 4.58 - 5.54 x10(6)/mc L 02/23/2024 9:52 PM EDT [facility] Hemoglobin 11.7(L) 13.7 - 16.5 g/dL 02/23/2024 9:52 PM [facility] Hematocrit 34.5(L) 40.5 - 48.5 % 02/23/2024 9:52 PM [facility] Mean Cell Volume 81.4(L) 82.9 - 93.1 fL 02/23/2024 9:52 PM [facility] Mean Cell Hemoglobin 27.6 27.5 - 32.1 pg 02/23/2024 9:52 PM [facility] Mean Cell Hemoglobin Concentration 33.9 32.0 - 35.7 g/dL 02/23/2024 9:52 PM [facility] Platelet 158 145 - 357 x10(3)/mc L 02/23/2024 9:52 PM [facility] Mean Platelet Volume 10.4 7.6 - 12.9 fL 02/23/2024 9:52 PM [facility] RDW Standard Deviation 47.0(H) 36.0 - 45.0 fL 02/23/2024 9:52 PM [facility] RDW coefficient of variation 15.8(H) 11.4 - 13.8 % 02/23/2024 9:52 PM [facility] NRBC% auto 0.0 % 02/23/2024 9:52 PM [facility] NRBC Absolute 0.00 0.00 - 0.00 x10(3)/mc L 02/23/2024 9:52 PM [facility] Neutrophil % 73.4 % 02/23/2024 9:52 PM [facility] Neutrophil Absolute (ANC) - Automated 4.24 1.70 - 6.10 x10(3)/mc L 02/23/2024 9:52 PM [facility] Lymph % 13.5 % 02/23/2024 9:52 PM [facility] Lymph Absolute 0.78(L) 0.90 - 3.20 x10(3)/mc L 02/23/2024 9:52 PM EDT [facility] Monocyte % 9.7 % 02/23/2024 9:52 PM EDT [facility] Monocyte Absolute 0.56 0.30 - 0.90 x10(3)/mc L 02/23/2024 9:52 PM EDT [facility] Eos % 2.4 % 02/23/2024 9:52 PM EDT [facility] Eos Absolute 0.14 0.00 - 0.40 x10(3)/mc L 02/23/2024 9:52 PM EDT [facility] Basophil % 0.5 % 02/23/2024 9:52 PM EDT [facility] Baso Absolute 0.03 0.00 - 0.10 x10(3)/mc L 02/23/2024 9:52 PM EDT [facility] Immature Gran % 0.5 % 9:52 PM EDT [facility] Immature Gran Absolute 0.03 0.00 - 0.04 x10(3)/mc L 02/23/2024 9:52 PM EDT [facility] Blood VENOUS BLOOD SPECIMEN / Unknown IP Care Team Draw / Unknown 02/23/2024 9:37 PM EDT 02/23/2024 9:42 PM EDT Marina Schmitz INSURANCE EXAMINING CLERK HEMATOLOGY ORDERA BLES [facility] [place] [address] * (ABNORMAL) pro-Brain Natriuretic Peptide (02/23/2024 9:37 PM EDT) NT-proBNP 1,918(H) <=124 pg/mL 02/23/2024 10:19 PM EDT [facility] Blood VENOUS BLOOD SPECIMEN / Unknown IP Care Team Draw / Unknown 02/23/2024 9:37 PM EDT 02/23/2024 9:42 PM EDT Mauricio Jean MD CHEMISTRY ORDERABLES [facility] [place] [address] * (ABNORMAL) Troponin - Single (02/23/2024 9:37 PM EDT) Troponin-T, High Sensitivity 161(H) <=22 ng/L 02/23/2024 10:19 PM EDT [facility] Comment: This patient's troponin [...] troponin value can be found in the [facility] Test Catalog Troponin - [email or web address]/catalogs/565/files/[email or web address] Reference: Fourth [place] Definition of Myocardial Infarction. Journal of the [place] [employer] 2018;72:7895-5356 Blood VENOUS BLOOD SPECIMEN / Unknown IP Care Team Draw / Unknown 02/23/2024 9:37 PM EDT 02/23/2024 9:42 PM EDT Mauricio Jean MD CHEMISTRY ORDERABLES [facility] [place] [place] [address] documented in this encounter Visit Diagnoses Not [...] on Sat02/26/24 at 0900, Until Discontinued, Routine 43 (Given - Provider: Dotty Burns RN) 09 [...] Wendi Baeza RN)1153 (Given - Provider: Wendi Baeza, RN)1650 (Given - Provider: Wendi Baeza RN) [...] Townsend RN) 1700 (Given - Provider: Wendi Baeza RN) sacubitriL-valsartan (Entresto) 24-26 mg per tablet 1 tablet 1 tablet, Oral, 2 TIMES DAILY, First dose on Mary [place] 02/27/24 at 1000, Until Discontinued, Routine, Is this a continuation of home medication? Yes 0948 (Given - Provider: Dotty Burns RN)213 (Given - Provider: Linsey Esquivel RN) 09 (Given - Provider: Wendi Baeza RN)2025 (Given - Provider: iLnsey Esquivel RN) 1012 (Given - Provider: Miguel A Vides LPN - Comment: patient was off unit for PT) sodium chloride tablet 1 g 1 g, Oral, 3 TIMES DAILY, First dose on Sat02/29/24 at 0900, Until Discontinued, Routine 0954 (Given - Provider: Dotty Burns RN)162 (Given - Provider: Noemi Townsend RN)2055 (Given - Provider: Linsey Esquivel RN) 0905 (Given - Provider: Wendi Baeza RN)1615 (Given - Provider: Wendi Baeza RN)2025 (Given [...] Routine documented in this encounter Care Teams Evp And Chief Operating Officer Relationship Specialty Start Date End Date Tamia Tsai PA [address] [place] [id number] PCP - General Family Medicine 02/18/24 documented as of this encounter
--- NOTE | 2024-04-02 21:13 | DI.VRAD_ITS ---
PROCEDURE INFORMATION: Exam: XR Chest Exam date and time: 04/02/2024 8:29 PM Age: 73 years old Clinical indication: Other: Weakness TECHNIQUE: Imaging protocol: Radiologic exam of the chest. Views: 1 view. COMPARISON: No relevant prior studies available. FINDINGS: Tubes, catheters and devices: Aortic valvular prosthesis in the expected position. Lungs: Moderate interstitial thickening somewhat peripheral predominant. The lungs appear hyperinflated. Possible nodular density right mid lung zone, 15 mm, similar finding left lung apex. Small pleural calcifications can also have this appearance. This could be worked up with CT thorax if clinically indicated. Pleural spaces: No pleural effusion. No pneumothorax. Heart/Mediastinum: Mild cardiomegaly with mild vascular congestion. Bones/joints: Median sternotomy wires. IMPRESSION: 1. Mild cardiomegaly with mild vascular congestion. 2. Moderate interstitial thickening somewhat peripheral predominant. This pattern favors chronic IPF over bronchitis, atypical infection or other interstitial process. 3. Possible nodular pulmonary densities as above. Dictated and Authenticated by: Vivian John MD. Ordering:NORA Walker MD
--- OUTSIDE RECORDS SUMMARY | 2024-04-02 21:13 | XMS_ITS | Encounter Summary ---
Author Organization [facility] Address [facility] [place] [address] Care Team Providers Care Inspector Outside Steam Distribution Name Role Phone Ramiro Ball MD Primary Care Provider [phone] Reason for Referral * Consultation (Routine) - Specialty Diagnoses / Procedures Referred By Luca beltran Referred To Contact Cardiac Rehabilitation Diagnoses S/P CABG (coronary artery bypass graft) S/P AVR (aortic valve replacement) Chun Stanton MD [facility] DR C[place]IOTH[place] [address] Cardiac Rehab, [address] [place] [address] Referral ID Status Reason Start Date Expiration Date V isits Requested Visits Authorized [id number] Consult, Test & Treat 06/18/2020 12/15/2020 36 36 * Diagnostic Test (Routine) - Closed Specialty Diagnoses / Procedures Referred By Luca beltran Referred To Contact Cardiology Diagnoses S/P CABG (coronary artery bypass graft) S/P AVR (aortic valve replacement) Procedures Echocardiogram Transthoracic([facility] or [facility]) Natalia Castro PA [facility] [place] [address] [facility] [place] [address] Referral ID Status Reason Start Date Expiration Date V isits Requested Visits Authorized [id number] Closed Specialty Service Requested 06/15/2020 06/15/2021 1 1 Reason for Visit * Auth/Cert Specialty Diagnoses / Procedures Referred By Contac t Referred To Contact Diagnoses CAD (coronary [...] Expiration Date Visits Re quested Visits Authorized [id number] 1 1 Encounter Details Date Type Department Care Team (Latest Contact Info) Description 06/13/2020 5:56 AM EST - 06/19/2020 12:02 PM EST Hospital Encounter Intermediate [place] [address] Chun Stanton MD [facility] DR CARDIOTHORACIC [place] [address] S/P CABG (coronary artery bypass graft); S/P [...] Patient Age: 69 y.o. Birthdate: 1950 Language: Omani Race: White Ethnicity: Not nor Admit Date: [...] office will schedule an appointment with your Repacker, Dr. Lackey, in 2 weeks. ??? Our office will schedule an appointment with your Cardiac Surgeon, Dr. Chun Stanton, in 4weeks with a chest x-ray, EKG, and Echo before your appointment. Inpatient Provider Contact Information: [facility] Section of Cardiac Surgery [facility] [place] [address] FAX [phone] Discharge Diagnoses (Hospital Problems) Primary Diagnoses: Aortic [...] 33.75) performed by Chun Stanton MD at [facility] OR ??? PRO CABG, ARTERY-VEIN, TWO N/A 06/13/2020 @CABG, TWO VENOUS GRAFTS & ARTERIAL GRAFT (WRVU 7.93) performed by Chun Stanton MD at [facility] OR ??? PRO ENDOSCOPY W/VIDEO-ASST VEIN HARVEST, CABG Right 06/13/2020 ENDOSCOPIC HARVEST VEIN(S) FOR CABG (WRVU 0.31) performed by Chun Stanton MD at [facility] OR ??? PRO REPLACE AORT VALV, PROSTH VALV N/A 06/13/2020 @REPLACE AORTIC VALVE, OPEN, W\CPB, W\PROSTHETIC VALVE (WRVU 41.32) performed by Chun Stanton MD at [facility] MAIN OR Prior To Admission Medications [...] TABLET BY MOUTH TWICE A DAY 06/13/2020 [id number] ??? omeprazole (PriLOSEC) 20 mg Capsule, Delayed [...] ??He has treated hypertension, he is a erq-nzctquc-natvlbniv diabetic. ??He has known dyslipidemia. ??He has had no known previous CVA or TIA. ??He has no known hepatic dysfunction he does have mild renal insufficiency with a baseline creatinine of about 1.3. ??He was not a user of tobacco. ??He is undergone prior appendectomy. ??He does have a family history of atherosclerotic disease in that his father following an ND at 48 years of age. He hasworked [...] x 3 Johnson Tobar was admitted to [facility] on 06/13/2020 via the Same [...] Soft, NTND Ext: WWP, trace edema Incisions: CATY CDI Important Studies and Lab Data: Lab [...] Chun Stanton and/or the Cardiac Surgery Physician Data Technical Lead Team may be reached at . Antibiotic prophylaxis: You will need to take antibiotics prior to many invasive tests and treatments, such as dental cleaning, which should be done every 6 months. Your primary care physician or your dentist can prescribe this medication. Please refer to the card with the [place] [employer] Guidelines for more information. You have been provided with a copy of this card. Please refer to the [place] Heart Association Guidelines for more information. Good [...] Dr. Chun Stanton. You may use a Kur[place] Track or treadmill but avoid any pulling [...] friends, go to a movie, go to baptism, etc. Heavy activities: No hunting, skiing, jogging, [...] should resume a low fat, low cholesterol, [place] Heart [employer] Diet. Driving: No driving until [...] office will schedule an appointment with your Repacker, Dr. Lackey, in 2 weeks. ??? You have a follow up appointment with your Cardiac Surgeon, Dr. Chun Stanton, July 21at 1:00pm with a chest x-ray, EKG, and Echo before your appointment. Cardiac Rehabilitation: Johnson Tobar was seen today regarding participation in the outpatient Phase 2 Cardiac Rehabilitation at [facility]. The patient agrees to a referral to this program. The referral will be sent at discharge and the patient should be contacted by the Program within 1- 2 weeks from discharge. Future Appointments and Orders Future Appointments and Orders Future Appointments Provider Department Dept Phone 07/21/2020 10:30 AM ECHO REGULAR Non-Invasive Cardiology Lab [facility] Arrive at: Internet Ass[facility]or Area 4A [phone] 07/21/2020 12:15 PM [facility] DX ROOM 2 XRay at [facility] Arrive at: Internet Assessor Area 3T [phone] Please go to [facility] Area 3T ([place] Location). 07/21/2020 1:00 PM Chun Stanton MD Cardiac Surgery at [facility] Arrive at: Internet Assessor Area [phone] Future Orders Complete By Expires Echocardiogram Transthoracic([facility] or [facility]) [45036 CPT(R)] 07/16/2020 (Approximate) 09/13/2020 Process Instructions: Scheduling Instructions: Comments: Questions: Is a Bubble Study requested?: Does the patient have Congenital Heart Disease?: Does patient require sedation?: GA rationale: Where should this exam be performed?: [facility] EKG 12 Lead [80389 CPT(R)] 07/16/2020 (Approximate) 09/13/2020 Process Instructions: Scheduling Instructions: Questions: Which location will this be performed?: [place] Is a rhythm strip needed?: No XR Chest PA & Lateral (Generic) [48641 45756 Custom] 07/16/2020 (Approximate) 09/13/2020 Process Instructions: Scheduling Instructions: Comments: Questions: Where will study be performed?: [facility] Radiology Portable exam?: Reason for exam and clinical history: S/P AVR/CABGx3 Clinical information / pedraza questions: Stat read required?: Date of injury if applicable: Requested Time: Referral to Cardiac Rehab [RBQ599 Custom] As directed Process Instructions: If no progress note charted, please enter Clinical details in comments. Scheduling Instructions: Questions: My question or request is: s/p AVR/CABG. Cardiac rehab at [facility] Referral to Home Health - at DISCHARGE [TUJ0903 CPT(R)] As directed Process Instructions: Scheduling Instructions: Comments: DOCUMENTATION FOR VNA SERVICES (INCLUDING THOSE PATIENTS WITH MEDICARE COVERAGE REQUIRING HOME VNA SERVICES AND/OR HOSPICE SERVICES) PATIENT'S LOCATION: Johnson Tobar [address] [facility] [address] (home) No relevant phone numbers on file. Research And Development Tester's Name: self and -Emili In discussion with the attending physician, it is certified that this patient is under their care and that they, or a Nurse Practitioner, or Physician Data Technical Lead who is working directly with them, hada [...] for services as follows: HOME HEALTH AGENCY: [facility] PHONE: [phone] FAX: [phone] RN orders: Cardiopulmonary assessment, incisional assessment, assess vital signs, assessment of rehab progress, medication management and effectiveness, home safety evaluation. PT ORDERS: Continue rehab for endurance, gait stability and strength with mobility and transfers. Home safety evaluation. Home exercise program if appropriate. Start of Care Date: 06/20/2020 SPECIAL INSTRUCTIONS: For any follow up questions, needs, or issues please call the Cardiac SurgeryOffice at [phone] FOR MEDICARE ONLY: (please delete this section [...] noted. Questions: Agency name and contact information: [facility] Patient location post discharge: home What services are requested: Registered Nurse Physical Therapy Occupational Therapy Start date: Responsible MD post discharge contact info: PCP Rodrick rolling [EQ134 Custom] As directed Process Instructions: Scheduling Instructions: Comments: Johnson Tobar [address] [facility] [address] (home) Diagnosis:s/p 05/3020 CABGx3 now with Unsteady gait Significant weakness, ataxia or gait abnormality Patient's: Hgt: 5'7 Wgt: 187 lb 13oz VENDOR: [facility] Located @ [place], [place] Ordering: Front wheel walker IF d/c on Sat/Sun will be Delivered from [facility] weekend closet in [place] to pt's hospital room #: 449 Otherwise delivery by [facility]. Questions: Vendor Name/Contact information: [facility] @ [facility] Arrangements for VNA/home care: As above. VN RN OR PCP TO PLEASE REMOVE CHEST TUBE SUTURES ON OR AFTER 06/23/2020 Signed: RASHEL RIOS [facility] Section of Cardiac Surgery [facility] [place] [address] FAX [phone] Date: 06/19/2020 CC: MD Quinn Zhang Robert E, MD [address] [place] [phone] documented in this encounter Discharge Instructions * [...] your chest incision. Your surgeon, Dr. Chun Satnton and/or the Cardiac Surgery Physician Data Technical Lead Team may be reached at . ?? Antibiotic prophylaxis: You will need to take antibiotics prior to many invasive tests and treatments, such as dental cleaning, which should be done every 6 months. Your primary care physician or your dentist can prescribe this medication. Please refer to the card with the [place] Heart [employer] Guidelines for more information. You have been provided with a copy of this card. Please refer to the [place] Heart Association Guidelines for more information. Good [...] Dr. Chun Stanton. You may use a Kurten Track or treadmill but avoid any pulling [...] friends, go to a movie, go to baptism, etc. ?? Heavy activities: No hunting, skiing, [...] should resume a low fat, low cholesterol, [place] Heart Association Diet. ?? Driving: No driving [...] office will schedule an appointment with your Repacker, Dr. Lackey, in 2 weeks. ?? You have a follow up appointment with your Cardiac Surgeon, Dr. Chun Stanton, July 21 at 1:00pm with a chest x-ray, EKG, and Echo before your appointment. ?? Cardiac Rehabilitation: Johnson Tobar??was seen today regarding participation in the outpatient Phase 2 Cardiac Rehabilitation at [facility]. The patient agrees to a [...] CARE DME Made Easy letter andcopy of [employer] [place], [employer] Physician Order/Patient Agreement Form (pt signed). Maru Lane cytotechnologist/histotechnologist Office of Care Management [email or web address] Pager: [phone] * Margaux Jones RN - 06/19/2020 11:54 AM EST AVS and medications reviewed at bedside. DC'd and D-lined. Pt home in private car. * Shaylee Ceja RN - 06/18/2020 6:21 PM ESTSummary: DME walker choice Office of Care Management(OCM)/cytotechnologist/histotechnologist(RNCM)/Discharge Planning Weekend and Holidays Pager [phone] Service: Cardiac Surgery w/e pgr [phone] Referral from weekday RNCM that pt would [...] has choices, which vendors would bill his insurance([employer], [employer], [facility] butthat not all open on weekend, that stores such as [employer], [employer] etc would have but he wouldhave to pay out of pocket and submit to insurance. Advised would be able to dispense one from [facility] to him at his room before d/c. IF he needs he agrees with : [facility] Located @ [place], [place] Call Saturday Triage RNCM pgr [phone] for assist; and will add to their [...] glipizide. Metformin not restarted yet. Met with clinical unit educator. Neuro: tylenol, oxy prn CV: Metop [...] 0600 and on the weekends please page [phone]. * Kaye Hooper RN - 06/17/2020 12:26 [...] 0600 and on the weekends please page [phone]. * Katherine Flores RN - 06/16/2020 3:13 [...] 0600 and on the weekends please page [phone]. * Katherine Flores RN - 06/15/2020 3:42 [...] Ale Caballero - 06/15/2020 3:23 PM EST Negotiator Sales Encounter Note Patient Name: Johnson Tobar : [id number] MR#: [id number] Admit Date: 06/13/2020 5:56 AM Hospital Day [...] Ext: WWP, no edema Incisions: CDI Tubes/Lines/Drains: baltazar, danelle gallagher pw Assessment/Plan: 69 y.o. male 2 Days Post-Op ws/p avr/cabg x 3, recovering as expected Increase metoprolol 50 BID Start lasix 20 PO BID D/C aileen Neuro: tylenol, oxy PRN CV: Increase metop [...] 0600 and on the weekends please page [phone]. * Mihaela Johnson, RN - 06/14/2020 4:57 PM EST [facility]. Oriented to room, call blanco within [...] [69 bpm-118 bpm] Drips: Nitroglycerin 40mcg/min 06/13 701 - 06/14 0700 In: 6436.7 [P.O.:60; I.V.:5163.7] [...] 0600 and on the weekends please page [phone]. * Kris Mayen PA - 06/14/2020 11:02 AM EST Cardiac Surgery Progress Note Johnson Tobar is a 69 y.o. male 1 [...] 0600 and on the weekends please page [phone]. * Ramon Lucero, MEDICAL MICROBIOLOGIST - 06/13/2020 4:47 PM EST Patient extubated to ne per order. Pt tolerating well. No distress [...] plan since last visit. Chun Stanton MD [phone] Source Note - Chun Stanton MD - [...] He has treated hypertension, he is a pfm-gnwazfo-nswqmjwln diabetic. He has known dyslipidemia. He has had no known previous CVA or TIA. He has no known hepatic dysfunction he does have mild renal insufficiency with a baseline creatinine of about 1.3. He was not a user of tobacco. He is undergone prior appendectomy. He does have a family history of atherosclerotic disease in that his father following an ND at 48 years of age. 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 His cardiac cath shows severe CAD ?? [...] given written informed consent. Chun Stanton MD [phone] * Chun Stanton MD - 06/13/2020 6:57 [...] He has treated hypertension, he is a zxd-rycpyvf-vrtqpvtuc diabetic. He has known dyslipidemia. He has had no known previous CVA or TIA. He has no known hepatic dysfunction he does have mild renal insufficiency with a baseline creatinine of about 1.3. He was not a user of tobacco. He is undergone prior appendectomy. He does have a family history of atherosclerotic disease in that his father following an ND at 48 years of age. 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 His cardiac cath shows severe CAD ?? [...] given written informed consent. Chun Stanton MD [phone] documented in this encounter Nursing Notes * [...] Stanton MD - 06/19/2020 12:00 PM EST [facility] Operative Note Patient Name: Johnson Tobar : [id number] MR#: [id number] Case Date: 06/13/2020 Surgeon: Surgeon(s) and Role: * Chun Stanton MD - Primary * Kris Mayen PA - Physician Data Technical Lead ?? Preoperative diagnosis: , CAD ?? Postoperative [...] Overview Goal: Plan of Care Review 06/17/20 7838 Coping/Psychosocial Plan Of Care Reviewed With patient [...] OUTCOME EVALUATION: * Plan of Care - Akil, Amberly De La Paz, PT - 06/17/2020 9:22 AM EST Physical [...] 06/13/20. ??He transferred from the CCU to [facility] on 06/14/20. 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 ??Enjoys TV and sports- [...] Therapy: 16(TE-Fx1) Amberly Barnard PT, DPT Pager: [phone] Physical Therapy Inpatient Rehabilitation Department * Plan [...] of Care - Brennan Watts, PT - 06/16/2020 12:30 PM EST Physical [...] 06/13/20. He transferred from the CCU to [facility] on 06/14/20. 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 Enjoys TV and sports- likes [employer] and [employer]. Equipment at home: none Fall history: none. [...] end of session. Left on toilet with staff antisubmarine officer aware and monitoring. Objective: Patient seen for [...] and cues. Pt educated to practice with staff antisubmarine officer the next 24 hours with bed flat. [...] walker again next walk with patient and staff antisubmarine officer. ?? Stand to sit with supervision and [...] as above and to walk more with staff antisubmarine officer, practice bed mobility, and to call for staff antisubmarine officer assistance with all mobility. Assessment: Johnson Tobar [...] the bathroom 2x during session today, and staff antisubmarine officer aware. He plans to return home with [...] Physical Therapy: 46(functional mobility) BRENNAN WATTS, PT Pager:[phone] Physical Therapy Inpatient Rehabilitation Department * Consult Note - Jody Reed RN - 06/16/2020 11:32 AM EST [facility] CARDIAC REHABILITATION Johnson Tobar was seen today regarding participation in the outpatient Phase 2 Cardiac Rehabilitation at [facility]. The patient agrees to a [...] promoted * Plan of Care - Brennan Watts PT - 06/15/2020 4:04 PM EST Physical [...] 06/13/20. He transferred from the CCU to [facility] on 06/14/20. 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 Enjoys TV and sports- likes [employer] and [employer]. Equipment at home: none Fall history: none. [...] as above and to walk more with staff antisubmarine officer and to call for staff antisubmarine officer assistance with all mobility. Assessment: Johnson Tobar [...] Physical Therapy: 31(functional mobility) BRENNAN WATTS, PT Pager:[phone] Physical Therapy Inpatient Rehabilitation Department * Consult Note - Zenia Lanza, COMMERCIAL ATTORNEY - 06/15/2020 3:50 PM EST Images from [...] management and to provide a review of custodial diabetes care. Diabetes History: Johnson Tobar has had diabetes for about 5 years. He states it is pre diabetes but takes 2 oral agents. He reports he gets diarrhea daily from metformin. 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 He had to ask for help in the [employer] underwood this year due to MCNEILL. He [...] while healing if necessary. Will askKaye Hooper [facility] CDE to see him for advanced insulin [...] Glipizide XR 5 mg before breakfast tomorrow rn long term care diabetes care: Medications - Outpatient treatment regimen recommendations pending based on the hospital course. Monitoring - continue BG tid ac & hs Diet - low fat/low carb diet Exercise - weight-bearing exercise 30 min/day, as tolerated Thank you for allowing us to provide care for your patient Zenia Pool [facility] Endocrinology Pager [phone] 70 minutes of this 80 minute visit [...] 06/13/20. He transferred from the CCU to [facility] on 06/14/20. PMH of DJD, HLD, [...] 33.75) performed by Chun Stanton MD at [facility] MAIN OR ??? PRO CABG, ARTERY-VEIN, TWO N/A 06/13/2020 @CABG, TWO VENOUS GRAFTS & ARTERIAL GRAFT (WRVU 7.93) performed by Chun Stanton MD at [facility] MAIN OR ??? PRO ENDOSCOPY W/VIDEO-ASST VEIN HARVEST, CABG Right 06/13/2020 ENDOSCOPIC HARVEST VEIN(S) FOR CABG (WRVU 0.31) performed by Chun Stanton MD at [facility] MAIN OR ??? 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 Enjoys TV and sports- [...] the CCU and assisted with transfer to [facility] and helped settle patient in new [...] Physical Therapy: 50 BRENNAN WATTS PT Pager: [phone] Physical Therapy Inpatient Rehabilitation Department * Initial [...] -Emili would be surrogate decision maker per [place] surrogate decision making law. Any patient receiving care at [facility] must abide by [place] law. The hierarchy for surrogate decision making [...] (i) The agent with financial power of regional director of admissions or a conservator appointed in accordance with [...] Information: none noted Health/Prescription Coverage: Primary Insurance: [facility] MANAGED MEDICARE Secondary Insurance: N/A Prescription Coverage: yes Preferred Pharmacy: [facility] [place] Other: nonenoted Primary Care Provider: Ramiro Ball MD [phone] Patient/Caregiver Goals of Treatment: dc to home Potential Needs for Transition of Care: Rehab/SNF: no Home Health: [facility] DME: no Dialysis: no Community [...] [facility] PHONE: [phone] FAX: [phone] Expected date of discharge: ?. Referral routed to the Fish Butcher for matching with agency/vendor and to provide any required information. Anticipated Barriers to Discharge/Special Considerations: no barriers to DC that are identified at this time Assessment: per MDs note:69-year-old male with known aortic stenosis.He has known atherosclerotic coronary disease having undergone PCI with stent placement of an LAD lesion in the past. ??He has treated hypertension, he is a gqf-ypmrlxh-lnfbtstvw diabetic. ??He has known dyslipidemia. ??He has had no known previous CVA or TIA. ??He has no known hepatic dysfunction he does have mild renal insufficiency with a baseline creatinine of about 1.3. ??He was not a user of tobacco. ??He is undergone prior appendectomy. ??He does have a family history of atherosclerotic disease in that his father following an ND at 48 years of age. ??He has [...] ??Plan: anticipate to DC to home with Natalie Ramos [facility] A member of the Care Management team will continue to monitor progress, follow for continuity of care and assist with transition of care planning. Makenzie Navarrete RN Pager:[phone] Ext :[phone] * Brief Op Note - Chun Stanton MD - 06/13/2020 1:26 PM EST Brief Operative Note Patient Name: Johnson Tobar : [id number] MR#: [id number] Case Date: 06/13/2020 Surgeon: Surgeon(s) and Role: * Chun Stanton MD - Primary * Kris Mayen PA - Physician Data Technical Lead Preoperative diagnosis: , CAD Postoperative diagnosis: , [...] 2:30 PM EST Office [place] [id number] Susanna Cm APRN [facility] [place] [address] Scheduled Referrals Name Type Priority Associated Diagnoses [...] 0 8:19 AM EST Endoscopy W/Video-Asst Vein [place], Cabg ([id number]) 06/13/2020 7:26 AM EST , CAD Cabg, Artery-Vein, Two ([id number]) 06/13/2020 7:26 AM EST , CAD Cabg, Arterial, Single ([id number]) 06/13/2020 7:26 AM EST , CAD Replacement Prosthetic Aortic Valve Open W Cardiopulmonary Bypass Homogrf/Stent ([id number]) 06/13/2020 7:26 AM EST , CAD PREPARE [...] (Bezet) 432 ms MUSE SYSTEM Calculated P [place] 20 degrees MUSE SYSTEM Calculated R [place] -17 degrees MUSE SYSTEM Calculated T [place] -34 degrees MUSE SYSTEM INTERPRETATION Normal sinus rhythm Possible Left atrial enlargement Left ventricular hypertrophy Inferior infarct (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-2020) T wave abnormality, consider lateral ischemia Abnormal ECG When compared with ECG of 13-JUN-2020 14:20, ST no longer elevated in Anterior leads T wave inversion now evident in Anterolateral leads Confirmed by MD Mclain Daniel ([id number]) on 07/21/2020 6:32:41 PM MUSE SYSTEM 07/21/2020 [...] R ? (Age): 1950(69y) Med Rec#: ? [id number] ?Sex: ?M ? Site Loc: ? [facility] ?Ht / Wt: ??170(cm)/84(kg) Pt. Loc: ?Echo Lab ?BSA: ?1.96 Study Date: ?? 07/21/2020 ?Pt. Type: Outpatient Tape: ? Referring: BARRON Reading: John Andrade ([id number]) Entertainment Reporter: Meaghan Cosby RDCS, FASE Diagnosis: *Presence of [...] Vmax ?1.11 ? m/sec ? MV deceleration ywvi597.7 ?msec ? MV A-wave Vmax ?1.57 ? [...] ? Mid-Inferior ?Normal ? Mid-Inferoseptal ?Normal ? [place]-Septal ? Normal ? [place]-Anterior ? Normal ? [place]-Lateral ?Normal ? [place]-Inferior ? Normal ? [place]-Tip ?Normal ? This report has been electronically signed by: John Andrade MD ? 07/21/2020 12:13:35 Images reviewed and interpretation verified [facility] Cardiac Ultrasound Laboratory Procedure Note John Andrade MD - 07/21/2020 Procedure: Transthoracic Echocardiogram Patient: ELMER López (Age): 1950(69y) Med Rec#: [id number] Sex: M Site Loc: [facility] [place] Ht / Wt: 170(cm)/84(kg) Pt. Loc: Echo Lab BSA: 1.96 Study Date: 07/21/2020 Pt. Type: Outpatient Tape: Referring: [email or web address] Reading: John Andrade ([id number]) Entertainment Reporter: Meaghan Cosby RDCS, FASE Diagnosis: *Presence of [...] MV E-wave Vmax 1.11 m/sec MV deceleration outm456.7 msec MV A-wave Vmax 1.57 m/sec MV [...] Normal Mid-Posterolateral Normal Mid-Inferior Normal Mid-Inferoseptal Normal [place]-Septal Normal [place]-Anterior Normal [place]-Lateral Normal [place]-Inferior Normal [place]-Tip Normal This report has been electronically signed by: John Andrade MD 07/21/2020 12:13:35 Images reviewed and interpretation verified [facility] Cardiac Ultrasound Laboratory Chun Stanton MD ECHO ORDERABLES * POCT Glucose (06/19/2020 7:43 AM EST) Glucose, POC 155 65 - 199 mg/dL [facility] Comment: Supplemental ranges: <140 mg/dL before meals <180 mg/dL all other times of the day Blood specimen (specimen) 06/19/2020 7:43 AM EST 06/19/2020 7:43 AM EST Chun Stanton MD POINT OF CARE TEST ORDERABLES Performing Organization Address City/State/[facility] Co de Phone Number [facility] [place] [address] * POCT Glucose (06/19/2020 4:43 AM EST) Glucose, POC 147 65 - 199 mg/dL [facility] Comment: Supplemental ranges: <140 mg/dL before meals <180 mg/dL all other times of the day Blood specimen (specimen) 06/19/2020 4:43 AM EST 06/19/2020 4:43 AM EST Chun Stanton MD POINT OF CARE TEST ORDERABLES Performing Organization Address [facility] Co de Phone Number [facility] [place] [address] * Potassium (06/19/2020 3:40 AM EST) Potassium 3.9 3.5 - 5.0 mmol/L [facility] Comment: Please note: ??Patients with [...] MD CHEMISTRY ORDERABLE S Performing Organization Address [facility] de Phone Number [facility] [place] [address] * POCT Glucose (06/18/2020 11:28 PM EST) Glucose, POC 167 65 - 199 mg/dL [facility] Comment: Supplemental ranges: <140 mg/dL before meals <180 mg/dL all other times of the day Blood specimen (specimen) 06/18/2020 11:28 PM EST 06/18/2020 11:28 PM EST Chun Stanton MD POINT OF CARE TEST ORDERABLES Performing Organization Address [facility] Co de Phone Number [facility] [place] [address] * POCT Glucose (06/18/2020 8:22 PM EST) Glucose, POC 181 65 - 199 mg/dL [facility] Comment: Supplemental ranges: <140 mg/dL before meals <180 mg/dL all other times of the day Blood specimen (specimen) 06/18/2020 8:22 PM EST 06/18/2020 8:22 PM EST Chun Stanton MD POINT OF CARE TEST ORDERABLES Performing Organization Address [facility] de Phone Number [facility] [place] [address] * POCT Glucose (06/18/2020 3:14 PM EST) Glucose, POC 145 65 - 199 mg/dL [facility] Comment: Supplemental ranges: <140 mg/dL before meals <180 mg/dL all other times of the day Blood specimen (specimen) 06/18/2020 3:14 PM EST 06/18/2020 3:14 PM EST Chun Stanton MD POINT OF CARE TEST ORDERABLES Performing Organization Address [facility] de Phone Number [facility] [place] [address] * (ABNORMAL) POCT Glucose (06/18/2020 11:58 AM EST) Glucose, POC 220(H) 65 - 199 mg/dL [facility] Comment: Supplemental ranges: <140 mg/dL before meals <180 mg/dL all other times of the day Blood specimen (specimen) 06/18/2020 11:58 AM EST 06/18/2020 11:58 AM EST Chun Stanton MD POINT OF CARE TEST ORDERABLES Performing Organization Address [facility] de Phone Number [facility] [place] [address] * (ABNORMAL) POCT Glucose (06/18/2020 11:50 AM EST) Glucose, POC 245(H) 65 - 199 mg/dL [facility] Comment: Supplemental ranges: <140 mg/dL before meals <180 mg/dL all other times of the day Blood specimen (specimen) 06/18/2020 11:50 AM EST 06/18/2020 11:50 AM EST Chun Stanton MD POINT OF CARE TEST ORDERABLES Performing Organization Address [facility] Co de Phone Number [facility] [place] [address] * POCT Glucose (06/18/2020 7:51 AM EST) Glucose, POC 185 65 - 199 mg/dL [facility] Comment: Supplemental ranges: <140 mg/dL before meals <180 mg/dL all other times of the day Blood specimen (specimen) 06/18/2020 7:51 AM EST 06/18/2020 7:51 AM EST Chun Stanton MD POINT OF CARE TEST ORDERABLES Performing Organization Address [facility] de Phone Number [facility] [place] [address] * Potassium (06/18/2020 5:28 AM EST) Potassium 3.7 3.5 - 5.0 mmol/L [facility] Comment: Please note: ??Patients with [...] MD CHEMISTRY ORDERABLE S Performing Organization Address [facility] Co de Phone Number [facility] [place] [address] * POCT Glucose (06/18/2020 5:02 AM EST) Glucose, POC 176 65 - 199 mg/dL [facility] Comment: Supplemental ranges: <140 mg/dL before meals <180 mg/dL all other times of the day Blood specimen (specimen) 06/18/2020 5:02 AM EST 06/18/2020 5:02 AM EST Chun Stanton MD POINT OF CARE TEST ORDERABLES Performing Organization Address [facility] Co de Phone Number [facility] [place] [address] * POCT Glucose (06/18/2020 4:03 AM EST) Glucose, POC 157 65 - 199 mg/dL [facility] Comment: Supplemental ranges: <140 mg/dL before meals <180 mg/dL all other times of the day Blood specimen (specimen) 06/18/2020 4:03 AM EST 06/18/2020 4:03 AM EST Chun Stanton MD POINT OF CARE TEST ORDERABLES Performing Organization Address [facility] de Phone Number [facility] [place] [address] * (ABNORMAL) POCT Glucose (06/17/2020 11:15 PM EST) Glucose, POC 209(H) 65 - 199 mg/dL [facility] Comment: Supplemental ranges: <140 mg/dL before meals <180 mg/dL all other times of the day Blood specimen (specimen) 06/17/2020 11:15 PM EST 06/17/2020 11:15 PM EST Chun Stanton MD POINT OF CARE TEST ORDERABLES Performing Organization Address [facility] Co de Phone Number [facility] [place] [address] * POCT Glucose (06/17/2020 8:38 PM EST) Glucose, POC 182 65 - 199 mg/dL [facility] Comment: Supplemental ranges: <140 mg/dL before meals <180 mg/dL all other times of the day Blood specimen (specimen) 06/17/2020 8:38 PM EST 06/17/2020 8:38 PM EST Chun Stanton MD POINT OF CARE TEST ORDERABLES Performing Organization Address [facility] de Phone Number [facility] [place] [address] * POCT Glucose (06/17/2020 4:27 PM EST) Glucose, POC 147 65 - 199 mg/dL [facility] Comment: Supplemental ranges: <140 mg/dL before meals <180 mg/dL all other times of the day Blood specimen (specimen) 06/17/2020 4:27 PM EST 06/17/2020 4:27 PM EST Chun Statnon MD POINT OF CARE TEST ORDERABLES Performing Organization Address [facility] Phone Number [facility] [place] [address] * POCT Glucose (06/17/2020 2:08 PM EST) Glucose, POC 162 65 - 199 mg/dL [facility] Comment: Supplemental ranges: <140 mg/dL before meals <180 mg/dL all other times of the day Blood specimen (specimen) 06/17/2020 2:08 PM EST 06/17/2020 2:08 PM EST Chun Stanton MD POINT OF CARE TEST ORDERABLES Performing Organization Address [facility] Phone Number [facility] [place] [address] * (ABNORMAL) POCT Glucose (06/17/2020 11:27 AM EST) Glucose, POC 315(H) 65 - 199 mg/dL [facility] Comment: Supplemental ranges: <140 mg/dL before meals <180 mg/dL all other times of the day Blood specimen (specimen) 06/17/2020 11:27 AM EST 06/17/2020 11:27 AM EST Chun Stanton MD POINT OF CARE TEST ORDERABLES Performing Organization Address [facility] Co de Phone Number [facility] [place] [address] * POCT Glucose (06/17/2020 7:46 AM EST) Glucose, POC 169 65 - 199 mg/dL [facility] Comment: Supplemental ranges: <140 mg/dL before meals <180 mg/dL all other times of the day Blood specimen (specimen) 06/17/2020 7:46 AM EST 06/17/2020 7:46 AM EST Chun Stanton MD POINT OF CARE TEST ORDERABLES Performing Organization Address [facility] de Phone Number [facility] [place] [address] * POCT Glucose (06/17/2020 4:41 AM EST) Glucose, POC 172 65 - 199 mg/dL [facility] Comment: Supplemental ranges: <140 mg/dL before meals <180 mg/dL all other times of the day Blood specimen (specimen) 06/17/2020 4:41 AM EST 06/17/2020 4:41 AM EST Chun Stanton MD POINT OF CARE TEST ORDERABLES Performing Organization Address [facility] Co de Phone Number [facility] [place] [address] * Potassium (06/17/2020 4:36 AM EST) Potassium 3.9 3.5 - 5.0 mmol/L [facility] Comment: Please note: ??Patients with [...] MD CHEMISTRY ORDERABLE S Performing Organization Address [facility] Co de Phone Number [facility] [place] [address] * POCT Glucose (06/16/2020 11:33 PM EST) Glucose, POC 157 65 - 199 mg/dL [facility] Comment: Supplemental ranges: <140 mg/dL before meals <180 mg/dL all other times of the day Blood specimen (specimen) 06/16/2020 11:33 PM EST 06/16/2020 11:33 PM EST Chun Stanton MD POINT OF CARE TEST ORDERABLES Performing Organization Address [facility] Phone Number [facility] [place] [address] * POCT Glucose (06/16/2020 7:59 PM EST) Glucose, POC 198 65 - 199 mg/dL [facility] Comment: Supplemental ranges: <140 mg/dL before meals <180 mg/dL all other times of the day Blood specimen (specimen) 06/16/2020 7:59 PM EST 06/16/2020 7:59 PM EST Chun Stanton MD POINT OF CARE TEST ORDERABLES Performing Organization Address [facility] Co de Phone Number [facility] [place] [address] * (ABNORMAL) POCT Glucose (06/16/2020 4:07 PM EST) Glucose, POC 211(H) 65 - 199 mg/dL [facility] Comment: Supplemental ranges: <140 mg/dL before meals <180 mg/dL all other times of the day Blood specimen (specimen) 06/16/2020 4:07 PM EST 06/16/2020 4:07 PM EST Chun Stanton MD POINT OF CARE TEST ORDERABLES Performing Organization Address [facility] de Phone Number [facility] [place] [address] * (ABNORMAL) POCT Glucose (06/16/2020 11:51 AM EST) Glucose, POC 224(H) 65 - 199 mg/dL [facility] Comment: Supplemental ranges: <140 mg/dL before meals <180 mg/dL all other times of the day Blood specimen (specimen) 06/16/2020 11:51 AM EST 06/16/2020 11:51 AM EST Chun Stanton MD POINT OF CARE TEST ORDERABLES Performing Organization Address [facility] de Phone Number [facility] [place] [address] * (ABNORMAL) POCT Glucose (06/16/2020 9:33 AM EST) Glucose, POC 252(H) 65 - 199 mg/dL [facility] Comment: Supplemental ranges: <140 mg/dL before meals <180 mg/dL all other times of the day Blood specimen (specimen) 06/16/2020 9:33 AM EST 06/16/2020 9:33 AM EST Chun Stanton MD POINT OF CARE TEST ORDERABLES Performing Organization Address [facility] de Phone Number [facility] [place] [address] * XR Chest PA & Lateral (Generic) [...] Glucose, POC 193 65 - 199 mg/dL [facility] Comment: Supplemental ranges: <140 mg/dL before meals <180 mg/dL all other times of the day Blood specimen (specimen) 06/16/2020 8:24 AM EST 06/16/2020 8:24 AM EST Chun Stanton MD POINT OF CARE TEST ORDERABLES Performing Organization Address City/[facility]/ZIP Co de Phone Number [facility] [place] [address] * POCT Glucose (06/16/2020 6:32 AM EST) Glucose, POC 169 65 - 199 mg/dL [facility] Comment: Supplemental ranges: <140 mg/dL before meals <180 mg/dL all other times of the day Blood specimen (specimen) 06/16/2020 6:32 AM EST 06/16/2020 6:32 AM EST Chun Stanton MD POINT OF CARE TEST ORDERABLES [facility] [place] [address] * POCT Glucose (06/16/2020 5:36 AM EST) Glucose, POC 175 65 - 199 mg/dL [facility] Comment: Supplemental ranges: <140 mg/dL before meals <180 mg/dL all other times of the day Blood specimen (specimen) 06/16/2020 5:36 AM EST 06/16/2020 5:36 AM EST Chun Stanton MD POINT OF CARE TEST ORDERABLES [facility] [place] [address] * (ABNORMAL) Differential, Automated (06/16/2020 4:54 AM EST) Neutrophil % 76.4 % [facility] Neutrophil Absolute 9.41(H) 1.70 - 6.10 x10(3)/[facility] Lymph % 12.4 % [facility] Lymphocytes Abs 1.5 0.9 - 3.2 x10(3)/[facility] Monocyte % 9.8 % [facility] Monocyte Abs 1.2(H) 0.3 - 0.9 x10(3)/[facility] Eos % 0.6 % [facility] Eosinophils Abs 0.1 0.0 - 0.4 x10(3)/[facility] Basophil % 0.3 % [facility] Baso Absolute 0.0 0.0 - 0.1 x10(3)/[facility] Immature Gran % 0.50 % [facility] Comment: Immature granulocytes(IG's)percentage and absolute count will include metamyelocytes, myelocytes, and promyelocytes. Blood smears from CBCs yielding IG's will be scanned manually for concordance. If this scan disagrees with the automated IG or if promyelocytes are noted, a manual differential will be performed. Immature Gran Absolute 0.06(H) 0.00 - 0.04 x10(3)/ L [facility] Blood specimen (specimen) 06/16/2020 4:54 AM EST 06/16/2020 5:33 AM EST Narrative Resulting Agency Comment Spec In Lab Kris KISER HEMATOLOGY ORDERABLE S [facility] [place] [address] * (ABNORMAL) Hemogram (06/16/2020 4:54 AM EST) White Blood Cell 12.3(H) 4.0 - 9.5 x10(3)/mc L [facility] Red Blood Cell 3.15(L) 4.58 - 5.54 x10(6)/mc L [facility] Hemoglobin 9.0(L) 13.7 - 16.5 gm/dL [facility] Hematocrit 27.6(L) 40.5 - 48.5 % [facility] Mean Cell Volume 87.6 82.9 - 93.1 fL [facility] Mean Cell Hemoglobin 28.6 27.5 - 32.1 pg [facility] Mean Cell Hemoglobin Concentration 32.6 32.0 - 35.7 gm/dL [facility] Platelet 112(L) 145 - 357 x10(3)/mc L [facility] RDW Standard Deviation 45.2(H) 36.0 - 45.0 fL [facility] RDW coefficient of variation 14.3(H) 11.4 - 13.8 % [facility] Mean Platelet Volume 12.3 7.6 - 12.9 fL [facility] NRBC% auto 0.0 % [facility] NRBC Absolute 0.000 0.000 - 0.000 x10(3)/mc L [facility] Blood specimen (specimen) 06/16/2020 4:54 AM EST 06/16/2020 5:33 AM EST Narrative Resulting Agency Comment Spec In Lab Kris KISER HEMATOLOGY ORDERABLE S [facility] [place] [address] * (ABNORMAL) Basic Metabolic Panel (non-fasting) (06/16/2020 4:54 AM EST) Glucose 163 65 - 199 mg/dL [facility] Comment:Diabetes: >=200 mg/d L plus symptoms Blood Urea Nitrogen 19 10 - 20 mg/dL [facility] Creatinine 1.06 0.80 - 1.50 mg/dL [facility] Sodium 133(L) 135 - 145 mmol/L [facility] Potassium 4.6 3.5 - 5.0 mmol/L [facility] Comment: Please note: ??Patients with WBC >100,000 may have falsely elevated Potassium levels. ??For accurate Potassium quantification in these patients send serum separator tube (gold top) for subsequent determinations. ??Contact the Clinical Chemistry Laboratory if there are any questions. Chloride 101 98 - 107 mmol/L [facility] Carbon Dioxide 24 22 - 31 mmol/L [facility] Anion Gap 8 5 - 15 mmol/L [facility] Calcium 8.5 8.5 - 10.5 mg/dL [facility] Est Glomerular Filtration Rate 71 >=60 mL/min/1. 73 m?? [facility] Comment: This patient? s estimated [...] Lab Chun Stanton MD CHEMISTRY ORDERABLE S [facility] [place] [address] * POCT Glucose (06/16/2020 4:38 AM EST) Glucose, POC 154 65 - 199 mg/dL [facility] Comment: Supplemental ranges: <140 mg/dL before meals <180 mg/dL all other times of the day Blood specimen (specimen) 06/16/2020 4:38 AM EST 06/16/2020 4:38 AM EST Chun Stanton MD POINT OF CARE TEST ORDERABLES [facility] [place] [address] * POCT Glucose (06/16/2020 3:31 AM EST) Glucose, POC 178 65 - 199 mg/dL [facility] Comment: Supplemental ranges: <140 mg/dL before meals <180 mg/dL all other times of the day Blood specimen (specimen) 06/16/2020 3:31 AM EST 06/16/2020 3:31 AM EST Chun Stanton MD POINT OF CARE TEST ORDERABLES [facility] [place] [address] * POCT Glucose (06/16/2020 2:42 AM EST) Glucose, POC 182 65 - 199 mg/dL [facility] Comment: Supplemental ranges: <140 mg/dL before meals <180 mg/dL all other times of the day Blood specimen (specimen) 06/16/2020 2:42 AM EST 06/16/2020 2:42 AM EST Chun Stanton MD POINT OF CARE TEST ORDERABLES [facility] [place] [address] * POCT Glucose (06/16/2020 1:28 AM EST) Glucose, POC 198 65 - 199 mg/dL [facility] Comment: Supplemental ranges: <140 mg/dL before meals <180 mg/dL all other times of the day Blood specimen (specimen) 06/16/2020 1:28 AM EST 06/16/2020 1:28 AM EST Chun Stanton MD POINT OF CARE TEST ORDERABLES [facility] [place] [address] * POCT Glucose (06/15/2020 11:41 PM EST) Glucose, POC 133 65 - 199 mg/dL [facility] Comment: Supplemental ranges: <140 mg/dL before meals <180 mg/dL all other times of the day Blood specimen (specimen) 06/15/2020 11:41 PM EST 06/15/2020 11:41 PM EST Chun Stanton MD POINT OF CARE TEST ORDERABLES [facility] [place] [address] * POCT Glucose (06/15/2020 10:28 PM EST) Glucose, POC 141 65 - 199 mg/dL [facility] Comment: Supplemental ranges: <140 mg/dL before meals <180 mg/dL all other times of the day Blood specimen (specimen) 06/15/2020 10:28 PM EST 06/15/2020 10:28 PM EST Chun Stanton MD POINT OF CARE TEST ORDERABLES [facility] [place] [address] * POCT Glucose (06/15/2020 9:34 PM EST) Glucose, POC 140 65 - 199 mg/dL [facility] Comment: Supplemental ranges: <140 mg/dL before meals <180 mg/dL all other times of the day Blood specimen (specimen) 06/15/2020 9:34 PM EST 06/15/2020 9:34 PM EST Chun Stanton MD POINT OF CARE TEST ORDERABLES [facility] [place] [address] * POCT Glucose (06/15/2020 8:44 PM EST) Glucose, POC 120 65 - 199 mg/dL [facility] Comment: Supplemental ranges: <140 mg/dL before meals <180 mg/dL all other times of the day Blood specimen (specimen) 06/15/2020 8:44 PM EST 06/15/2020 8:44 PM EST Chun Stanton MD POINT OF CARE TEST ORDERABLES Performing Organization Address City/[facility]/ZIP Co de Phone Number [facility] [place] [address] * POCT Glucose (06/15/2020 7:17 PM EST) Glucose, POC 115 65 - 199 mg/dL [facility] Comment: Supplemental ranges: <140 mg/dL before meals <180 mg/dL all other times of the day Blood specimen (specimen) 06/15/2020 7:17 PM EST 06/15/2020 7:17 PM EST Chun Stanton MD POINT OF CARE TEST ORDERABLES [facility] [place] [address] * POCT Glucose (06/15/2020 6:22 PM EST) Glucose, POC 107 65 - 199 mg/dL [facility] Comment: Supplemental ranges: <140 mg/dL before meals <180 mg/dL all other times of the day Blood specimen (specimen) 06/15/2020 6:22 PM EST 06/15/2020 6:22 PM EST Chun Stanton MD POINT OF CARE TEST ORDERABLES Performing Organization Address City/[facility]/ZIP Co de Phone Number [facility] [place] [address] * POCT Glucose (06/15/2020 5:05 PM EST) Glucose, POC 90 65 - 199 mg/dL [facility] Comment: Supplemental ranges: <140 mg/dL before meals <180 mg/dL all other times of the day Blood specimen (specimen) 06/15/2020 5:05 PM EST 06/15/2020 5:05 PM EST Chun Stanton MD POINT OF CARE TEST ORDERABLES Performing Organization Address [facility] Co de Phone Number [facility] [place] [address] * POCT Glucose (06/15/2020 3:48 PM EST) Glucose, POC 109 65 - 199 mg/dL [facility] Comment: Supplemental ranges: <140 mg/dL before meals <180 mg/dL all other times of the day Blood specimen (specimen) 06/15/2020 3:48 PM EST 06/15/2020 3:48 PM EST Chun Stanton MD POINT OF CARE TEST ORDERABLES Performing Organization Address City/[facility] Co de Phone Number [facility] [place] [address] * (ABNORMAL) POCT Glucose (06/15/2020 2:00 PM EST) Glucose, POC 222(H) 65 - 199 mg/dL [facility] Comment: Supplemental ranges: <140 mg/dL before meals <180 mg/dL all other times of the day Blood specimen (specimen) 06/15/2020 2:00 PM EST 06/15/2020 2:00 PM EST Chun Stanton MD POINT OF CARE TEST ORDERABLES Performing Organization Address City/[facility] Co de Phone Number [facility] [place] [address] * (ABNORMAL) POCT Glucose (06/15/2020 1:02 PM EST) Glucose, POC 223(H) 65 - 199 mg/dL [facility] Comment: Supplemental ranges: <140 mg/dL before meals <180 mg/dL all other times of the day Blood specimen (specimen) 06/15/2020 1:02 PM EST 06/15/2020 1:02 PM EST Chun Stanton MD POINT OF CARE TEST ORDERABLES Performing Organization Address [facility] Co de Phone Number [facility] [place] [address] * POCT Glucose (06/15/2020 11:51 AM EST) Glucose, POC 191 65 - 199 mg/dL [facility] Comment: Supplemental ranges: <140 mg/dL before meals <180 mg/dL all other times of the day Blood specimen (specimen) 06/15/2020 11:51 AM EST 06/15/2020 11:51 AM EST Chun Stanton MD POINT OF CARE TEST ORDERABLES Performing Organization Address City/[facility] Co de Phone Number [facility] [place] [address] * (ABNORMAL) POCT Glucose (06/15/2020 10:45 AM EST) Glucose, POC 221(H) 65 - 199 mg/dL [facility] Comment: Supplemental ranges: <140 mg/dL before meals <180 mg/dL all other times of the day Blood specimen (specimen) 06/15/2020 10:45 AM EST 06/15/2020 10:45 AM EST Chun Stanton MD POINT OF CARE TEST ORDERABLES Performing Organization Address City/[facility] Co de Phone Number [facility] [place] [address] * (ABNORMAL) POCT Glucose (06/15/2020 9:44 AM EST) Glucose, POC 249(H) 65 - 199 mg/dL [facility] Comment: Supplemental ranges: <140 mg/dL before meals <180 mg/dL all other times of the day Blood specimen (specimen) 06/15/2020 9:44 AM EST 06/15/2020 9:44 AM EST Chun Stanton MD POINT OF CARE TEST ORDERABLES Performing Organization Address [facility] Co de Phone Number [facility] [place] [address] * (ABNORMAL) POCT Glucose (06/15/2020 8:49 AM EST) Glucose, POC 246(H) 65 - 199 mg/dL [facility] Comment: Supplemental ranges: <140 mg/dL before meals <180 mg/dL all other times of the day Blood specimen (specimen) 06/15/2020 8:49 AM EST 06/15/2020 8:49 AM EST Chun Stanton MD POINT OF CARE TEST ORDERABLES Performing Organization Address [facility] Co de Phone Number [facility] [place] [address] * POCT Glucose (06/15/2020 7:35 AM EST) Glucose, POC 189 65 - 199 mg/dL [facility] Comment: Supplemental ranges: <140 mg/dL before meals <180 mg/dL all other times of the day Blood specimen (specimen) 06/15/2020 7:35 AM EST 06/15/2020 7:35 AM EST Chun Stanton MD POINT OF CARE TEST ORDERABLES Performing Organization Address [facility] Co de Phone Number [facility] [place] [address] * POCT Glucose (06/15/2020 6:31 AM EST) Glucose, POC 165 65 - 199 mg/dL [facility] Comment: Supplemental ranges: <140 mg/dL before meals <180 mg/dL all other times of the day Blood specimen (specimen) 06/15/2020 6:31 AM EST 06/15/2020 6:31 AM EST Chun Stanton MD POINT OF CARE TEST ORDERABLES Performing Organization Address [facility] Phone Number [facility] [place] [address] * Potassium (06/15/2020 5:37 AM EST) Potassium 4.7 3.5 - 5.0 mmol/L [facility] Comment: Please note: ??Patients with [...] MD CHEMISTRY ORDERABLE S Performing Organization Address [facility] Co de Phone Number [facility] [place] [address] * POCT Glucose (06/15/2020 5:36 AM EST) Glucose, POC 170 65 - 199 mg/dL [facility] Comment: Supplemental ranges: <140 mg/dL before meals <180 mg/dL all other times of the day Blood specimen (specimen) 06/15/2020 5:36 AM EST 06/15/2020 5:36 AM EST Chun Stanton MD POINT OF CARE TEST ORDERABLES Performing Organization Address City/[facility] Co de Phone Number [facility] [place] [address] * POCT Glucose (06/15/2020 4:38 AM EST) Glucose, POC 162 65 - 199 mg/dL [facility] Comment: Supplemental ranges: <140 mg/dL before meals <180 mg/dL all other times of the day Blood specimen (specimen) 06/15/2020 4:38 AM EST 06/15/2020 4:38 AM EST Chun Stanton MD POINT OF CARE TEST ORDERABLES Performing Organization Address [facility] Co de Phone Number [facility] [place] [address] * POCT Glucose (06/15/2020 3:36 AM EST) Glucose, POC 173 65 - 199 mg/dL [facility] Comment: Supplemental ranges: <140 mg/dL before meals <180 mg/dL all other times of the day Blood specimen (specimen) 06/15/2020 3:36 AM EST 06/15/2020 3:36 AM EST Chun Stanton MD POINT OF CARE TEST ORDERABLES Performing Organization Address City/[facility] Co de Phone Number [facility] [place] [address] * POCT Glucose (06/15/2020 2:26 AM EST) Glucose, POC 179 65 - 199 mg/dL [facility] Comment: Supplemental ranges: <140 mg/dL before meals <180 mg/dL all other times of the day Blood specimen (specimen) 06/15/2020 2:26 AM EST 06/15/2020 2:26 AM EST Chun Stanton MD POINT OF CARE TEST ORDERABLES Performing Organization Address City/[facility] Co de Phone Number [facility] [place] [address] * POCT Glucose (06/15/2020 1:29 AM EST) Glucose, POC 196 65 - 199 mg/dL [facility] Comment: Supplemental ranges: <140 mg/dL before meals <180 mg/dL all other times of the day Blood specimen (specimen) 06/15/2020 1:29 AM EST 06/15/2020 1:29 AM EST Chun Stanton MD POINT OF CARE TEST ORDERABLES Performing Organization Address [facility] Co de Phone Number [facility] [place] [address] * POCT Glucose (06/15/2020 12:24 AM EST) Glucose, POC 152 65 - 199 mg/dL [facility] Comment: Supplemental ranges: <140 mg/dL before meals <180 mg/dL all other times of the day Blood specimen (specimen) 06/15/2020 12:24 AM EST 06/15/2020 12:24 AM EST Chun Stanton MD POINT OF CARE TEST ORDERABLES Performing Organization Address City/[facility] Co de Phone Number [facility] [place] [address] * POCT Glucose (06/14/2020 11:04 PM EST) Glucose, POC 132 65 - 199 mg/dL [facility] Comment: Supplemental ranges: <140 mg/dL before meals <180 mg/dL all other times of the day Blood specimen (specimen) 06/14/2020 11:04 PM EST 06/14/2020 11:04 PM EST Chun Stanton MD POINT OF CARE TEST ORDERABLES Performing Organization Address City/[facility] Co de Phone Number [facility] [place] [address] * POCT Glucose (06/14/2020 10:29 PM EST) Glucose, POC 114 65 - 199 mg/dL [facility] Comment: Supplemental ranges: <140 mg/dL before meals <180 mg/dL all other times of the day Blood specimen (specimen) 06/14/2020 10:29 PM EST 06/14/2020 10:29 PM EST Chun Stanton MD POINT OF CARE TEST ORDERABLES Performing Organization Address [facility] de Phone Number [facility] [place] [address] * POCT Glucose (06/14/2020 9:03 PM EST) Glucose, POC 110 65 - 199 mg/dL [facility] Comment: Supplemental ranges: <140 mg/dL before meals <180 mg/dL all other times of the day Blood specimen (specimen) 06/14/2020 9:03 PM EST 06/14/2020 9:03 PM EST Chun Stanton MD POINT OF CARE TEST ORDERABLES Performing Organization Address City/[facility] Co de Phone Number [facility] [place] [address] * POCT Glucose (06/14/2020 8:06 PM EST) Glucose, POC 104 65 - 199 mg/dL [facility] Comment: Supplemental ranges: <140 mg/dL before meals <180 mg/dL all other times of the day Blood specimen (specimen) 06/14/2020 8:06 PM EST 06/14/2020 8:06 PM EST Chun Stanton MD POINT OF CARE TEST ORDERABLES Performing Organization Address City/[facility]/ZIP Co de Phone Number [facility] [place] [address] * POCT Glucose (06/14/2020 7:02 PM EST) Glucose, POC 118 65 - 199 mg/dL [facility] Comment: Supplemental ranges: <140 mg/dL before meals <180 mg/dL all other times of the day Blood specimen (specimen) 06/14/2020 7:02 PM EST 06/14/2020 7:02 PM EST Chun Stanton MD POINT OF CARE TEST ORDERABLES Performing Organization Address [facility] Co de Phone Number [facility] [place] [address] * POCT Glucose (06/14/2020 5:24 PM EST) Glucose, POC 141 65 - 199 mg/dL [facility] Comment: Supplemental ranges: <140 mg/dL before meals <180 mg/dL all other times of the day Blood specimen (specimen) 06/14/2020 5:24 PM EST 06/14/2020 5:24 PM EST Chun Stanton MD POINT OF CARE TEST ORDERABLES Performing Organization Address City/[facility]/ZIP Co de Phone Number [facility] [place] [address] * POCT Glucose (06/14/2020 4:21 PM EST) Glucose, POC 168 65 - 199 mg/dL [facility] Comment: Supplemental ranges: <140 mg/dL before meals <180 mg/dL all other times of the day Blood specimen (specimen) 06/14/2020 4:21 PM EST 06/14/2020 4:21 PM EST Chun Stanton MD POINT OF CARE TEST ORDERABLES [facility] [place] [address] * (ABNORMAL) POCT Glucose (06/14/2020 3:12 PM EST) Glucose, POC 206(H) 65 - 199 mg/dL [facility] Comment: Supplemental ranges: <140 mg/dL before meals <180 mg/dL all other times of the day Blood specimen (specimen) 06/14/2020 3:12 PM EST 06/14/2020 3:12 PM EST Chun Stanton MD POINT OF CARE TEST ORDERABLES Performing Organization Address [facility] Co de Phone Number [facility] [place] [address] * (ABNORMAL) POCT Glucose (06/14/2020 2:07 PM EST) Glucose, POC 220(H) 65 - 199 mg/dL [facility] Comment: Supplemental ranges: <140 mg/dL before meals <180 mg/dL all other times of the day Blood specimen (specimen) 06/14/2020 2:07 PM EST 06/14/2020 2:07 PM EST Chun Stanton MD POINT OF CARE TEST ORDERABLES Performing Organization Address [facility] Co de Phone Number [facility] [place] [address] * POCT Glucose (06/14/2020 1:04 PM EST) Glucose, POC 188 65 - 199 mg/dL [facility] Comment: Supplemental ranges: <140 mg/dL before meals <180 mg/dL all other times of the day Blood specimen (specimen) 06/14/2020 1:04 PM EST 06/14/2020 1:04 PM EST Chun Stanton MD POINT OF CARE TEST ORDERABLES [facility] [place] [address] * POCT Glucose (06/14/2020 11:56 AM EST) Glucose, POC 154 65 - 199 mg/dL [facility] Comment: Supplemental ranges: <140 mg/dL before meals <180 mg/dL all other times of the day Blood specimen (specimen) 06/14/2020 11:56 AM EST 06/14/2020 11:56 AM EST Chun Stanton MD POINT OF CARE TEST ORDERABLES [facility] [place] [address] * POCT Glucose (06/14/2020 10:04 AM EST) Glucose, POC 139 65 - 199 mg/dL [facility] Comment: Supplemental ranges: <140 mg/dL before meals <180 mg/dL all other times of the day Blood specimen (specimen) 06/14/2020 10:04 AM EST 06/14/2020 10:04 AM EST Chun Stanton MD POINT OF CARE TEST ORDERABLES [facility] [place] [address] * POCT Glucose (06/14/2020 9:32 AM EST) Glucose, POC 129 65 - 199 mg/dL [facility] Comment: Supplemental ranges: <140 mg/dL before meals <180 mg/dL all other times of the day Blood specimen (specimen) 06/14/2020 9:32 AM EST 06/14/2020 9:32 AM EST Chun Stanton MD POINT OF CARE TEST ORDERABLES [facility] [place] [address] * POCT Glucose (06/14/2020 8:36 AM EST) Glucose, POC 134 65 - 199 mg/dL [facility] Comment: Supplemental ranges: <140 mg/dL before meals <180 mg/dL all other times of the day Blood specimen (specimen) 06/14/2020 8:36 AM EST 06/14/2020 8:36 AM EST Chun Stanton MD POINT OF CARE TEST ORDERABLES [facility] [place] [address] * POCT Glucose (06/14/2020 6:00 AM EST) Glucose, POC 156 65 - 199 mg/dL [facility] Comment: Supplemental ranges: <140 mg/dL before meals <180 mg/dL all other times of the day Blood specimen (specimen) 06/14/2020 6:00 AM EST 06/14/2020 6:00 AM EST Chun Stanton MD POINT OF CARE TEST ORDERABLES [facility] [place] [address] * (ABNORMAL) Hemoglobin A1c (06/14/2020 5:13 AM EST) Hemoglobin A1c 8.2(H) 4.3 - 5.6 % [facility] Comment: Reference Range: 4.3 - [...] Mellitus, Diabetes Care 2013; 36: Suppl. 1, Z50-79 Estimated Average Glucose See note mg/dL [facility] Comment: Estimated Average Glucose not [...] into estimated average glucose values. ??Diabetes Care 2008:31(8):0140-4069. Blood specimen (specimen) Venous Draw / Unknown 06/14/2020 5:13 AM EST 06/15/2020 2:29 PM EST Narrative Resulting Agency Comment Spec In Lab Zenia Lanza APRN CHEMISTRY ORDERABLE S [facility] [place] [address] * Scan, Peripheral Blood (06/14/2020 5:13 AM EST) Plat estimate Decreased [facility] RBC Morphology Abnormal [facility] Microcyte 1-5 /HPF [facility] Ovalocytes 1-5 /HPF [facility] [place] Cells 1-5 /HPF [facility] Blood specimen (specimen) 06/14/2020 5:13 AM EST 06/14/2020 5:23 AM EST Narrative Resulting Agency Comment Spec In Lab Kris KISER HEMATOLOGY ORDERABLE S [facility] [address] * (ABNORMAL) Differential, Automated (06/14/2020 5:13 AM EST) Neutrophil % 78.7 % [facility] Neutrophil Absolute 10.60(H) 1.70 - 6.10 x10(3)/ L [facility] Lymph % 7.9 % [facility] Lymphocytes Abs 1.1 0.9 - 3.2 x10(3)/[facility] Monocyte % 12.9 % [facility] Monocyte Abs 1.7(H) 0.3 - 0.9 x10(3)/[facility] Eos % 0.0 % [facility] Eosinophils Abs 0.0 0.0 - 0.4 x10(3)/[facility] Basophil % 0.1 % [facility] Baso Absolute 0.0 0.0 - 0.1 x10(3)/[facility] Immature Gran % 0.40 % [facility] Comment: Immature granulocytes(IG's)percentage and absolute count will include metamyelocytes, myelocytes, and promyelocytes. Blood smears from CBCs yielding IG's will be scanned manually for concordance. If this scan disagrees with the automated IG or if promyelocytes are noted, a manual differential will be performed. Immature Gran Absolute 0.06(H) 0.00 - 0.04 x10(3)/ L [facility] Blood specimen (specimen) 06/14/2020 5:13 AM EST 06/14/2020 5:23 AM EST Narrative Resulting Agency Comment Spec In Lab Kris KISER HEMATOLOGY ORDERABLE S [facility] [place] [address] * (ABNORMAL) Hemogram (06/14/2020 5:13 AM EST) White Blood Cell 13.5(H) 4.0 - 9.5 x10(3)/mc L [facility] Red Blood Cell 3.04(L) 4.58 - 5.54 x10(6)/mc L [facility] Hemoglobin 8.8(L) 13.7 - 16.5 gm/dL [facility] Hematocrit 25.5(L) 40.5 - 48.5 % [facility] Mean Cell Volume 83.9 82.9 - 93.1 fL [facility] Mean Cell Hemoglobin 28.9 27.5 - 32.1 pg [facility] Mean Cell Hemoglobin Concentration 34.5 32.0 - 35.7 gm/dL [facility] Platelet 123(L) 145 - 357 x10(3)/mc L [facility] RDW Standard Deviation 42.4 36.0 - 45.0 [facility] RDW coefficient of variation 13.8 11.4 - 13.8 % [facility] Mean Platelet Volume 11.5 7.6 - 12.9 fL [facility] NRBC% auto 0.0 % [facility] NRBC Absolute 0.000 0.000 - 0.000 x10(3)/mc L [facility] Blood specimen (specimen) 06/14/2020 5:13 AM EST 06/14/2020 5:23 AM EST Narrative Resulting Agency Comment Spec In Lab Kris KISER HEMATOLOGY ORDERABLE S [facility] [place] [address] * (ABNORMAL) Basic Metabolic Panel (non-fasting) (06/14/2020 5:13 AM EST) Glucose 143 65 - 199 mg/dL [facility] Comment:Diabetes: >=200 mg/d L plus symptoms Blood Urea Nitrogen 14 10 - 20 mg/dL [facility] Creatinine 0.99 0.80 - 1.50 mg/dL [facility] Sodium 140 135 - 145 mmol/L [facility] Potassium 4.0 3.5 - 5.0 mmol/L [facility] Comment: Please note: ??Patients with WBC >100,000 may have falsely elevated Potassium levels. ??For accurate Potassium quantification in these patients send serum separator tube (gold top) for subsequent determinations. ??Contact the Clinical Chemistry Laboratory if there are any questions. Chloride 106 98 - 107 mmol/L [facility] Carbon Dioxide 24 22 - 31 mmol/L [facility] Anion Gap 10 5 - 15 mmol/L [facility] Calcium 8.0(L) 8.5 - 10.5 mg/dL [facility] Est Glomerular Filtration Rate 77 >=60 mL/min/1. 73 m?? [facility] Comment: The eGFR was calculated using the CKD-EPI equation. As with all creatinine based estimates of kidney function, eGFR values calculated with the CKD-EPI equation are not accurate in patients with acute kidney failure, extremes of body mass or the acutely ill. [email or web address] eGFR 89 >=60 mL/min/1. 73 m?? [facility] Comment: The eGFR was calculated using the CKD-EPI equation. As with all creatinine based estimates of kidney function, eGFR values calculated with the CKD-EPI equation are not accurate in patients with acute kidney failure, extremes of body mass or the acutely ill. [email or web address] Blood specimen (specimen) 06/14/2020 5:13 AM EST 06/14/2020 5:23 AM EST Narrative Resulting Agency Comment Spec In Lab Chun Stanton MD CHEMISTRY ORDERABLE S Performing Organization Address City/[facility]/ZIP Co de Phone Number [facility] [address] * (ABNORMAL) Troponin (06/14/2020 5:13 AM EST) Pathologist [facility] Troponin-T 0.47(H) 0.00 - 0.00 ng/mL [facility] Comment: The 99th percentile for Troponin T is less than 0.01 ng/mL, any detectable cTnT concentration using this assay should be considered elevated. According to the third universal definition of myocardial infarction the following criteria with a clinical presentation consistent with acute myocardial ischemia meets the diagnosis for a myocardial infarction (ND). Detection of a rise and/or fall of cTnT, with at least one value greater than the 99th percentile (> or = 0.01) and with at least one of the following ?? Symptoms of ischemia ?? New or presumed new significant VW-[id number]-X wave (ST-T) changes or new left bundle [...] additional sample may be indicated. Reference: Third [place] Definition of Myocardial Infarction. Journal of the [place] [employer] 2012;60:1581-98 Blood specimen (specimen) 06/14/2020 5:13 AM EST 06/14/2020 5:23 AM EST Narrative Resulting Agency Comment Spec In Lab Chun Stanton MD CHEMISTRY ORDERABLE S Performing Organization Address [facility]/ZIP Co de Phone Number [facility] [place] [address] * POCT Glucose (06/14/2020 2:36 AM EST) [facility] Glucose, POC 169 65 - 199 mg/dL [facility] Comment: Supplemental ranges: <140 mg/dL before meals <180 mg/dL all other times of the day Blood specimen (specimen) 06/14/2020 2:36 AM EST 06/14/2020 2:36 AM EST Chun Stanton MD POINT OF CARE TEST ORDERABLES Performing Organization Address [facility] Co de Phone Number [facility] [place] [address] * POCT Glucose (06/13/2020 10:38 PM EST) Glucose, POC 193 65 - 199 mg/dL [facility] Comment: Supplemental ranges: <140 mg/dL before meals <180 mg/dL all other times of the day Blood specimen (specimen) 06/13/2020 10:38 PM EST 06/13/2020 10:38 PM EST Chun Stanton MD POINT OF CARE TEST ORDERABLES Performing Organization Address [facility] de Phone Number [facility] [place] [address] * (ABNORMAL) POCT Glucose (06/13/2020 8:41 PM EST) Glucose, POC 217(H) 65 - 199 mg/dL [facility] Comment: Supplemental ranges: <140 mg/dL before meals <180 mg/dL all other times of the day Blood specimen (specimen) 06/13/2020 8:41 PM EST 06/13/2020 8:41 PM EST Chun Stanton MD POINT OF CARE TEST ORDERABLES Performing Organization Address [facility] Co de Phone Number [facility] [place] [address] * (ABNORMAL) POCT Glucose (06/13/2020 7:04 PM EST) Glucose, POC 217(H) 65 - 199 mg/dL [facility] Comment: Supplemental ranges: <140 mg/dL before meals <180 mg/dL all other times of the day Blood specimen (specimen) 06/13/2020 7:04 PM EST 06/13/2020 7:04 PM EST Chun Stanton MD POINT OF CARE TEST ORDERABLES Performing Organization Address [facility] de Phone Number [facility] [place] [address] * (ABNORMAL) POCT Glucose (06/13/2020 6:17 PM EST) Glucose, POC 230(H) 65 - 199 mg/dL [facility] Comment: Supplemental ranges: <140 mg/dL before meals <180 mg/dL all other times of the day Blood specimen (specimen) 06/13/2020 6:17 PM EST 06/13/2020 6:17 PM EST Chun Stanton MD POINT OF CARE TEST ORDERABLES Performing Organization Address [facility] de Phone Number [facility] [place] [address] * (ABNORMAL) POCT Glucose (06/13/2020 5:42 PM EST) Glucose, POC 255(H) 65 - 199 mg/dL [facility] Comment: Supplemental ranges: <140 mg/dL before meals <180 mg/dL all other times of the day Blood specimen (specimen) 06/13/2020 5:42 PM EST 06/13/2020 5:42 PM EST Chun Stanton MD POINT OF CARE TEST ORDERABLES Performing Organization Address [facility] de Phone Number [facility] [place] [address] * (ABNORMAL) Hemoglobin (06/13/2020 5:38 PM EST) Hemoglobin 9.9(L) 13.7 - 16.5 gm/dL [facility] Blood specimen (specimen) 06/13/2020 5:38 PM EST 06/13/2020 5:49 PM EST Narrative Resulting Agency Comment Spec In Lab Chun Stanton MD HEMATOLOGY ORDERABL ES Performing Organization Address [facility] de Phone Number [facility] [place] [address] * Potassium (06/13/2020 5:38 PM EST) [facility] Potassium 3.9 3.5 - 5.0 mmol/L [facility] Comment: Please note: ??Patients with [...] MD CHEMISTRY ORDERABLE S Performing Organization Address [facility] de Phone Number [facility] [place] [address] * (ABNORMAL) POCT Glucose (06/13/2020 4:39 PM EST) [facility] Glucose, POC 215(H) 65 - 199 mg/dL [facility] Comment: Supplemental ranges: <140 mg/dL before meals <180 mg/dL all other times of the day Blood specimen (specimen) 06/13/2020 4:39 PM EST 06/13/2020 4:39 PM EST Chun Stanton MD POINT OF CARE TEST ORDERABLES Performing Organization Address [facility] Co de Phone Number [facility] [place] [address] * (ABNORMAL) BLOOD GAS 2 ARTERIAL (06/13/2020 4:22 PM EST) [facility] pH, Arterial 7.34(L) 7.35 - 7.45 [facility] PCO2, Arterial 37 35 - 45 mmHg [facility] PO2, Arterial 82(L) 85 - 104 mmHg [facility] Bicarbonate, Arterial 19.1(L) 20.0 - 26.0 mmol/L [facility] Base Excess, Arterial -6.7(L) -3.0 - 3.0 mmol/L [facility] Hgb Blood Gas 10.8(L) 13.7 - 16.5 gm/dL [facility] Oxyhemoglobin, Arterial 93.9(L) 94.0 - 97.0 % [facility] Carboxyhemoglob in, Arterial 0.1 % [facility] Comment: Nonsmokers: 0.5-1.5% COHB Smokers: Variable, but usually less than 10% Toxic: 20-30% COHB Lethal: Greater than 60% COHB Methemoglobin, Arterial 0.4 <=1.5 % [facility] Na Whole Blood 137 135 - 145 mmol/L [facility] K Whole Blood 3.6 3.5 - 5.0 mmol/L [facility] Comment: Please note: Patients with WBC >100,000 may have falsely elevated Potassium levels. Contact the Clinical Chemistry Laboratory if there are any questions. ICa Whole Blood 1.06(L) 1.15 - 1.33 mmol/L [facility] Comment: Note: ??Total bilirubin higher than 20 mg/dL may lead to falsely low ionized calcium. CL Whole Blood 108(H) 98 - 107 mmol/L [facility] Gluc Whole Bld 226(H) 65 - 199 mg/dL [facility] Comment:Diabetes: >=200 mg/d L plus symptoms. Lactate WB 2.9(H) 0.5 - 2.2 mmol/L [facility] FIO2 Art 40 % [facility] PF Ratio Art 205 [facility] Blood specimen (specimen) 06/13/2020 4:22 PM EST 06/13/2020 4:22 PM EST Chun Stanton MD POINT OF CARE TEST ORDERABLES [facility] [place] [address] * POCT Glucose (06/13/2020 3:32 PM EST) Glucose, POC 184 65 - 199 mg/dL [facility] Comment: Supplemental ranges: <140 mg/dL before meals <180 mg/dL all other times of the day Blood specimen (specimen) 06/13/2020 3:32 PM EST 06/13/2020 3:32 PM EST Chun Stanton MD POINT OF CARE TEST ORDERABLES Performing Organization Address [facility] Phone Number [facility] [place] [address] * XR Chest One View (06/13/2020 2:48 [...] above the ranjith. -Right internal jugular vein [place] catheter tip is at the bifurcation of [...] above the ranjith. -Right internal jugular vein [place] catheter tip is at the bifurcationof main [...] (Bezet) 441 ms MUSE SYSTEM Calculated P [place] 45 degrees MUSE SYSTEM Calculated R [place] -32 degrees MUSE SYSTEM Calculated T [place] -30 degrees MUSE SYSTEM INTERPRETATION Sinus bradycardia Left axis deviation Inferior infarct (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-2020) ST elevation, consider early repolarization Abnormal ECG When compared with ECG of 03-JUN-2020 11:37, T wave inversion are no longer present in the lateral leads. Confirmed by Carlos Toro ([id number]) on 06/13/2020 4:08:19 PM MUSE SYSTEM 06/13/2020 2:20 PM EST 06/13/2020 4:08 PM EST Chun Stanton MD ECG ORDERABLES MUSE SYSTEM * (ABNORMAL) BLOOD GAS 2 ARTERIAL (06/13/2020 2:19 PM EST) pH, Arterial 7.32(L) 7.35 - 7.45 [facility] PCO2, Arterial 47(H) 35 - 45 mmHg [facility] PO2, Arterial 205(H) 85 - 104 mmHg [facility] Bicarbonate, Arterial 24.1 20.0 - 26.0 mmol/L [facility] Base Excess, Arterial -1.9 -3.0 - 3.0 mmol/L [facility] Hgb Blood Gas 10.0(L) 13.7 - 16.5 gm/dL [facility] Oxyhemoglobin, Arterial 97.6(H) 94.0 - 97.0 % [facility] Carboxyhemoglob in, Arterial 0.3 % [facility] Comment: Nonsmokers: 0.5-1.5% COHB Smokers: Variable, but usually less than 10% Toxic: 20-30% COHB Lethal: Greater than 60% COHB Methemoglobin, Arterial 0.6 <=1.5 % [facility] Na Whole Blood 139 135 - 145 mmol/L [facility] K Whole Blood 4.3 3.5 - 5.0 mmol/L [facility] Comment: Please note: Patients with WBC >100,000 may have falsely elevated Potassium levels. Contact the Clinical Chemistry Laboratory if there are any questions. ICa Whole Blood 1.12(L) 1.15 - 1.33 mmol/L [facility] Comment: Note: ??Total bilirubin higher than 20 mg/dL may lead to falsely low ionized calcium. CL Whole Blood 107 98 - 107 mmol/L [facility] Gluc Whole Bld 186 65 - 199 mg/dL [facility] Comment:Diabetes: >=200 mg/d L plus symptoms. Lactate WB 1.7 0.5 - 2.2 mmol/L [facility] FIO2 Art 100 % [facility] PF Ratio Art 205 [facility] Blood specimen (specimen) 06/13/2020 2:19 PM EST 06/13/2020 2:19 PM EST Chun Stanton MD POINT OF CARE TEST ORDERABLES Performing Organization Address City/State/[facility] Co de Phone Number [facility] [place] [address] * (ABNORMAL) BLOOD GAS 2 ARTERIAL (06/13/2020 12:46 PM EST) pH, Arterial 7.33(L) 7.35 - 7.45 [facility] PCO2, Arterial 42 35 - 45 mmHg [facility] PO2, Arterial 90 85 - 104 mmHg [facility] Bicarbonate, Arterial 21.8 20.0 - 26.0 mmol/L [facility] Base Excess, Arterial -4.0(L) -3.0 - 3.0 mmol/L [facility] Hgb Blood Gas 7.8(L) 13.7 - 16.5 gm/dL [facility] Oxyhemoglobin, Arterial 94.6 94.0 - 97.0 % [facility] Carboxyhemoglob in, Arterial 1.0 % [facility] Comment: Nonsmokers: 0.5-1.5% COHB Smokers: Variable, but usually less than 10% Toxic: 20-30% COHB Lethal: Greater than 60% COHB Methemoglobin, Arterial 0.3 <=1.5 % [facility] Na Whole Blood 134(L) 135 - 145 mmol/L [facility] K Whole Blood 3.8 3.5 - 5.0 mmol/L [facility] Comment: Please note: Patients with WBC >100,000 may have falsely elevated Potassium levels. Contact the Clinical Chemistry Laboratory if there are any questions. ICa Whole Blood 1.16 1.15 - 1.33 mmol/L [facility] Comment: Note: ??Total bilirubin higher than 20 mg/dL may lead to falsely low ionized calcium. CL Whole Blood 107 98 - 107 mmol/L [facility] Gluc Whole Bld 194 65 - 199 mg/dL [facility] Comment:Diabetes: >=200 mg/d L plus symptoms. Lactate WB 3.2(H) 0.5 - 2.2 mmol/L [facility] Blood specimen (specimen) 06/13/2020 12:46 PM EST 06/13/2020 12:46 PM EST Chun Stanton MD POINT OF CARE TEST ORDERABLES Performing Organization Address City/[facility]/ZIP Co de Phone Number [facility] [place] [address] * Scan, Peripheral Blood (06/13/2020 12:40 PM EST) Plat estimate Decreased [facility] RBC Morphology Abnormal [facility] Ovalocytes 1-5 /HPF [facility] Blood specimen (specimen) 06/13/2020 12:40 PM EST 06/13/2020 12:51 PM EST Narrative Resulting Agency Comment Spec In Lab Sarahi Avery MD HEMATOLOGY ORDERABLE S [facility] [place] [address] * (ABNORMAL) Fibrinogen (06/13/2020 12:40 PM EST) Fibrinogen 156(L) 200 - 393 mg/dL [facility] Comment: OR Result called by ?? SALVLT OR Results read back by: ? Wilfred Heath at 2020-06-13 13:07:09 A fibrinogen level >100 mg/dL is adequate for hemostasis in most patients without underlying bleeding disorders. Blood specimen (specimen) 06/13/2020 12:40 PM EST 06/13/2020 12:51 PM EST Narrative Resulting Agency Comment Spec In Lab Marianna Torres MD HEMATOLOGY ORDERABL ES Performing Organization Address [facility] de Phone Number [facility] [place] [address] * APTT (06/13/2020 12:40 PM EST) Partial Thromboplastin Time 27 25 - 37 sec [facility] Comment: OR Result called by [...] MD HEMATOLOGY ORDERABL ES Performing Organization Address [facility] de Phone Number [facility] [place] [address] * (ABNORMAL) Prothrombin Time (06/13/2020 12:40 PM EST) Prothrombin Time 17.2(H) 9.4 - 12.5 sec [facility] Comment: OR Result called by ?? SALVLT OR Results read back by: ? Wilfredgloria Heath at 2020-06-13 13:07:09 International Normalization Ratio 1.5 [facility] Comment: OR Result called by [...] MD HEMATOLOGY ORDERABL ES Performing Organization Address City/State/[facility] Co de Phone Number [facility] [place] [address] * (ABNORMAL) Hemogram (06/13/2020 12:40 PM EST) White Blood Cell 9.1 4.0 - 9.5 x10(3)/mc L [facility] Red Blood Cell 2.50(L) 4.58 - 5.54 x10(6)/mc L [facility] Hemoglobin 7.3(L) 13.7 - 16.5 gm/dL [facility] Hematocrit 21.4(L) 40.5 - 48.5 % [facility] Comment: This result has been called to WILFRED HEATH by Adelita Huff on 06 13 2020 at 1331, and has been read back. Mean Cell Volume 85.6 82.9 - 93.1 fL [facility] Mean Cell Hemoglobin 29.2 27.5 - 32.1 pg [facility] Mean Cell Hemoglobin Concentration 34.1 32.0 - 35.7 gm/dL [facility] Platelet 81(L) 145 - 357 x10(3)/mc L [facility] RDW Standard Deviation 41.9 36.0 - 45.0 fL [facility] RDW coefficient of variation 13.5 11.4 - 13.8 % [facility] Mean Platelet Volume 12.1 7.6 - 12.9 fL [facility] NRBC% auto 0.0 % [facility] NRBC Absolute 0.000 0.000 - 0.000 x10(3)/mc L [facility] Blood specimen (specimen) 06/13/2020 12:40 PM EST 06/13/2020 12:51 PM EST Narrative Resulting Agency Comment Spec In Lab Marianna Torres MD HEMATOLOGY ORDERABL ES Performing Organization Address City/State/[facility] Co de Phone Number [facility] [place] [address] * (ABNORMAL) BLOOD GAS 2 ARTERIAL (06/13/2020 12:13 PM EST) pH, Arterial 7.30(L) 7.35 - 7.45 [facility] PCO2, Arterial 44 35 - 45 mmHg [facility] PO2, Arterial 392(H) 85 - 104 mmHg [facility] Bicarbonate, Arterial 21.3 20.0 - 26.0 mmol/L [facility] Base Excess, Arterial -5.1(L) -3.0 - 3.0 mmol/L [facility] Hgb Blood Gas 7.8(L) 13.7 - 16.5 gm/dL [facility] Oxyhemoglobin, Arterial 98.3(H) 94.0 - 97.0 % [facility] Carboxyhemoglob in, Arterial 0.8 % [facility] Comment: Nonsmokers: 0.5-1.5% COHB Smokers: Variable, but usually less than 10% Toxic: 20-30% COHB Lethal: Greater than 60% COHB Methemoglobin, Arterial 0.3 <=1.5 % [facility] Na Whole Blood 129(L) 135 - 145 mmol/L [facility] K Whole Blood 5.0 3.5 - 5.0 mmol/L [facility] Comment: Please note: Patients with WBC >100,000 may have falsely elevated Potassium levels. Contact the Clinical Chemistry Laboratory if there are any questions. ICa Whole Blood 1.37(H) 1.15 - 1.33 mmol/L [facility] Comment: Note: ??Total bilirubin higher than 20 mg/dL may lead to falsely low ionized calcium. CL Whole Blood 106 98 - 107 mmol/L [facility] Gluc Whole Bld 211(H) 65 - 199 mg/dL [facility] Comment:Diabetes: >=200 mg/d L plus symptoms. Lactate WB 2.9(H) 0.5 - 2.2 mmol/L [facility] Blood specimen (specimen) 06/13/2020 12:13 PM EST 06/13/2020 12:13 PM EST Chun Stanton MD POINT OF CARE TEST ORDERABLES Performing Organization Address City/[facility]/[place] [address] * Prepare Platelets, Apheresis (06/13/2020 12:10 PM EST) Dispensed? Yes [facility] Blood specimen (specimen) 06/13/2020 12:10 PM EST 06/13/2020 12:08 PM EST Chun Stanton MD BLOOD [place] [address] * (ABNORMAL) Platelet count (06/13/2020 11:50 AM EST) Platelet 107(L) 145 - 357 x10(3)/mc L [facility] Immature Plt % 5.0 0.0 - 7.4 % [facility] Comment: Limitation of the Immature Platelet Fraction (IPF)-May be less reliable when the platelet count is less than 58g675/uL due to statistical imprecision. The IPF value [...] in a decreased state of production. References: [employer] The Clinical Value of the Immature Platelet Fraction (IPF) in Cell Recovery Document Number [id number] 12/2010 [employer] The Role of the Immature Platelet Fraction (IPF) in the Differential Diagnosis of Thrombocytopenia, Document [id number] V05 P05 Blood specimen (specimen) 06/13/2020 11:50 AM EST 06/13/2020 11:59 AM EST Narrative Resulting Agency Comment Spec In Lab Chun Stanton MD HEMATOLOGY ORDERABL ES [facility] [place] [address] * (ABNORMAL) Hemoglobin and Hematocrit, blood (06/13/2020 11:50 AM EST) Hemoglobin 7.8(L) 13.7 - 16.5 gm/dL [facility] Hematocrit 22.7(L) 40.5 - 48.5 % [facility] Comment: This result has been called to WILFRED HEATH by Elizabet Santiago on 06 13 2020 at 1207, and has been read back. Blood specimen (specimen) 06/13/2020 11:50 AM EST 06/13/2020 11:59 AM EST Narrative Resulting Agency Comment Spec In Lab Chun Stanton MD HEMATOLOGY ORDERABL ES Performing Organization Address [facility] Co de Phone Number [facility] [place] [address] * (ABNORMAL) Fibrinogen (06/13/2020 11:50 AM EST) Fibrinogen 161(L) 200 - 393 mg/dL [facility] Comment: OR Result called by ?? SABINE OR Results read back by: ? Wilfred Heath at 2020-06-13 12:13:36 A fibrinogen level >100 mg/dL is adequate for hemostasis in most patients without underlying bleeding disorders. Blood specimen (specimen) 06/13/2020 11:50 AM EST 06/13/2020 11:59 AM EST Narrative Resulting Agency Comment Spec In Lab Chun Stanton MD HEMATOLOGY ORDERABL ES Performing Organization Address [facility] de Phone Number [facility] [place] [address] * (ABNORMAL) BLOOD GAS 2 ARTERIAL (06/13/2020 11:44 AM EST) pH, Arterial 7.34(L) 7.35 - 7.45 [facility] PCO2, Arterial 41 35 - 45 mmHg [facility] PO2, Arterial 235(H) 85 - 104 mmHg [facility] Bicarbonate, Arterial 21.5 20.0 - 26.0 mmol/L [facility] Base Excess, Arterial -4.3(L) -3.0 - 3.0 mmol/L [facility] Hgb Blood Gas 9.3(L) 13.7 - 16.5 gm/dL [facility] Oxyhemoglobin, Arterial 98.5(H) 94.0 - 97.0 % [facility] Carboxyhemoglob in, Arterial 0.2 % [facility] Comment: Nonsmokers: 0.5-1.5% COHB Smokers: Variable, but usually less than 10% Toxic: 20-30% COHB Lethal: Greater than 60% COHB Methemoglobin, Arterial 0.3 <=1.5 % [facility] Na Whole Blood 132(L) 135 - 145 mmol/L [facility] K Whole Blood 4.6 3.5 - 5.0 mmol/L [facility] Comment: Please note: Patients with WBC >100,000 may have falsely elevated Potassium levels. Contact the Clinical Chemistry Laboratory if there are any questions. ICa Whole Blood 0.97(L) 1.15 - 1.33 mmol/L [facility] Comment: Note: ??Total bilirubin higher than 20 mg/dL may lead to falsely low ionized calcium. CL Whole Blood 106 98 - 107 mmol/L [facility] Gluc Whole Bld 222(H) 65 - 199 mg/dL [facility] Comment:Diabetes: >=200 mg/d L plus symptoms. Lactate WB 2.1 0.5 - 2.2 mmol/L [facility] Blood specimen (specimen) 06/13/2020 11:44 AM EST 06/13/2020 11:44 AM EST Chun Stanton MD POINT OF CARE TEST ORDERABLES Performing Organization Address City/State/[facility] Co de Phone Number [facility] [place] [address] * (ABNORMAL) BLOOD GAS 2 ARTERIAL (06/13/2020 11:08 AM EST) pH, Arterial 7.34(L) 7.35 - 7.45 [facility] PCO2, Arterial 41 35 - 45 mmHg [facility] PO2, Arterial 288(H) 85 - 104 mmHg [facility] Bicarbonate, Arterial 21.9 20.0 - 26.0 mmol/L [facility] Base Excess, Arterial -3.8(L) -3.0 - 3.0 mmol/L [facility] Hgb Blood Gas 9.1(L) 13.7 - 16.5 gm/dL [facility] Oxyhemoglobin, Arterial 98.7(H) 94.0 - 97.0 % [facility] Carboxyhemoglob in, Arterial 0.3 % [facility] Comment: Nonsmokers: 0.5-1.5% COHB Smokers: Variable, but usually less than 10% Toxic: 20-30% COHB Lethal: Greater than 60% COHB Methemoglobin, Arterial 0.3 <=1.5 % [facility] Na Whole Blood 132(L) 135 - 145 mmol/L [facility] K Whole Blood 5.3(H) 3.5 - 5.0 mmol/L [facility] Comment: Please note: Patients with WBC >100,000 may have falsely elevated Potassium levels. Contact the Clinical Chemistry Laboratory if there are any questions. ICa Whole Blood 0.98(L) 1.15 - 1.33 mmol/L [facility] Comment: Note: ??Total bilirubin higher than 20 mg/dL may lead to falsely low ionized calcium. CL Whole Blood 106 98 - 107 mmol/L [facility] Gluc Whole Bld 230(H) 65 - 199 mg/dL [facility] Comment:Diabetes: >=200 mg/d L plus symptoms. Lactate WB 2.0 0.5 - 2.2 mmol/L [facility] Blood specimen (specimen) 06/13/2020 11:08 AM EST 06/13/2020 11:08 AM EST Chun Stanton MD POINT OF CARE TEST ORDERABLES [facility] [place] [address] * (ABNORMAL) BLOOD GAS 2 ARTERIAL (06/13/2020 10:25 AM EST) pH, Arterial 7.38 7.35 - 7.45 [facility] PCO2, Arterial 38 35 - 45 mmHg [facility] PO2, Arterial 436(H) 85 - 104 mmHg [facility] Bicarbonate, Arterial 21.9 20.0 - 26.0 mmol/L [facility] Base Excess, Arterial -3.2(L) -3.0 - 3.0 mmol/L [facility] Hgb Blood Gas 9.2(L) 13.7 - 16.5 gm/dL [facility] Oxyhemoglobin, Arterial 98.8(H) 94.0 - 97.0 % [facility] Carboxyhemoglob in, Arterial 0.3 % [facility] Comment: Nonsmokers: 0.5-1.5% COHB Smokers: Variable, but usually less than 10% Toxic: 20-30% COHB Lethal: Greater than 60% COHB Methemoglobin, Arterial 0.3 <=1.5 % [facility] Na Whole Blood 133(L) 135 - 145 mmol/L [facility] K Whole Blood 5.8(H) 3.5 - 5.0 mmol/L [facility] Comment: Please note: Patients with WBC >100,000 may have falsely elevated Potassium levels. Contact the Clinical Chemistry Laboratory if there are any questions. ICa Whole Blood 0.92(Criti candida) 1.15 - 1.33 mmol/L [facility] Comment: Noted by reed or wind instrument tuner. Note: ??Total bilirubin higher than 20 mg/dL may lead to falsely low ionized calcium. CL Whole Blood 104 98 - 107 mmol/L [facility] Gluc Whole Bld 235(H) 65 - 199 mg/dL [facility] Comment:Diabetes: >=200 mg/d L plus symptoms. Lactate WB 2.1 0.5 - 2.2 mmol/L [facility] Blood specimen (specimen) 06/13/2020 10:25 AM EST 06/13/2020 10:25 AM EST Chun Stanton MD POINT OF CARE TEST ORDERABLES [facility] [place] [address] * Specimen to Pathology (06/13/2020 10:24 AM EST) AP Specimen 06/13/2020 10:2 4 AM EST 06/13/2020 10:24 AM EST Narrative [facility] - 06/13/2020 10:24 AM EST Specimen requisition ordered. ??Separate Pathology report to follow Chun Stanton MD PATHOLOGY/CYTOLOGY ORDERABLES [facility] [place] [address] * Surgical Pathology Report (06/13/2020 10:23 AM EST) Final Diagnosis [id number] ? Location: [facility]; [facility]; The signing pathologist has (i) examined the relevant preparation(s) for the specimen(s) and (ii) rendered or confirmed the diagnosis(es). . ?Surgical Pathology DIAGNOSIS A - Aortic Valves Leaflets, excision - Valve leaflet tissue with nodular calcific and myxoid degeneration. Electronically signed by: ??Lena Henson DO Verified: ??06/16/2020 ?Pathologist Performed at: ??-[facility] Dept. of Pathology, [place], [place] SPECIMEN(S) SUBMITTED A - Aortic Valves [...] sing: Blocks submitted for decalcification : A1. Insurance Agents Supervisor sections in 1 cassette labeled A1. ??ajw 06/16/2020 3:31 PM EST [facility] AORTIC STRUCTURE / Unknown 06/13/2020 10:23 AM EST 06/13/2020 10:23 AM EST Chun Stanton MD PATHOLOGY/CYTOLOGY ORDERABLES [facility] [place] [address] * (ABNORMAL) BLOOD GAS 2 VENOUS (06/13/2020 9:54 AM EST) pH, Venous 7.33 7.32 - 7.42 [facility] PCO2, Venous 45 41 - 51 mmHg [facility] PO2, Venous 47(H) 25 - 40 mmHg [facility] Bicarbonate, Venous 23.1 mmol/L [facility] Base Excess, Venous -2.9 mmol/L [facility] Hgb Blood Gas 9.3(L) 13.7 - 16.5 gm/dL [facility] Oxyhemoglobin, Venous 79.5 % [facility] Carboxyhemoglob in, Venous 0.9 % [facility] Comment: Nonsmokers: 0.5-1.5% COHB Smokers: Variable, but usually less than 10% Toxic: 20-30% COHB Lethal: Greater than 60% COHB Methemoglobin, Venous 0.3 <=1.5 % [facility] Na Whole Blood 133(L) 135 - 145 mmol/L [facility] K Whole Blood 4.2 3.5 - 5.0 mmol/L [facility] Comment: Please note: Patients with WBC >100,000 may have falsely elevated Potassium levels. Contact the Clinical Chemistry Laboratory if there are any questions. ICa Whole Blood 0.97(L) 1.15 - 1.33 mmol/L [facility] Comment: Note: ??Total bilirubin higher than 20 mg/dL may lead to falsely low ionized calcium. CL Whole Blood 104 98 - 107 mmol/L [facility] Gluc Whole Bld 142 65 - 199 mg/dL [facility] Comment:Diabetes: >=200 mg/d L plus symptoms Lactate WB 1.8 0.5 - 2.2 mmol/L [facility] Blood Gas Source Venous [facility] Blood specimen (specimen) 06/13/2020 9:54 AM EST 06/13/2020 9:54 AM EST Chun Stanton MD POINT OF CARE TEST ORDERABLES [facility] [place] [address] * (ABNORMAL) BLOOD GAS 2 ARTERIAL (06/13/2020 9:51 AM EST) pH, Arterial 7.36 7.35 - 7.45 [facility] PCO2, Arterial 40 35 - 45 mmHg [facility] PO2, Arterial 374(H) 85 - 104 mmHg [facility] Bicarbonate, Arterial 22.2 20.0 - 26.0 mmol/L [facility] Base Excess, Arterial -3.2(L) -3.0 - 3.0 mmol/L [facility] Hgb Blood Gas 9.2(L) 13.7 - 16.5 gm/dL [facility] Oxyhemoglobin, Arterial 99.0(H) 94.0 - 97.0 % [facility] Carboxyhemoglob in, Arterial 0.1 % [facility] Comment: Nonsmokers: 0.5-1.5% COHB Smokers: Variable, but usually less than 10% Toxic: 20-30% COHB Lethal: Greater than 60% COHB Methemoglobin, Arterial 0.3 <=1.5 % [facility] Na Whole Blood 133(L) 135 - 145 mmol/L [facility] K Whole Blood 4.3 3.5 - 5.0 mmol/L [facility] Comment: Please note: Patients with WBC >100,000 may have falsely elevated Potassium levels. Contact the Clinical Chemistry Laboratory if there are any questions. ICa Whole Blood 0.96(L) 1.15 - 1.33 mmol/L [facility] Comment: Note: ??Total bilirubin higher than 20 mg/dL may lead to falsely low ionized calcium. CL Whole Blood 104 98 - 107 mmol/L [facility] Gluc Whole Bld 134 65 - 199 mg/dL [facility] Comment:Diabetes: >=200 mg/d L plus symptoms. Lactate WB 1.9 0.5 - 2.2 mmol/L [facility] Blood specimen (specimen) 06/13/2020 9:51 AM EST 06/13/2020 9:51 AM EST Chun Stanton MD POINT OF CARE TEST ORDERABLES Performing Organization Address City/State/[facility] Co de Phone Number [facility] [place] [address] * (ABNORMAL) BLOOD GAS 2 ARTERIAL (06/13/2020 8:19 AM EST) pH, Arterial 7.39 7.35 - 7.45 [facility] PCO2, Arterial 34(L) 35 - 45 mmHg [facility] PO2, Arterial 99 85 - 104 mmHg [facility] Bicarbonate, Arterial 20.2 20.0 - 26.0 mmol/L [facility] Base Excess, Arterial -4.8(L) -3.0 - 3.0 mmol/L [facility] Hgb Blood Gas 14.8 13.7 - 16.5 gm/dL [facility] Oxyhemoglobin, Arterial 96.4 94.0 - 97.0 % [facility] Carboxyhemoglob in, Arterial 0.6 % [facility] Comment: Nonsmokers: 0.5-1.5% COHB Smokers: Variable, but usually less than 10% Toxic: 20-30% COHB Lethal: Greater than 60% COHB Methemoglobin, Arterial 0.3 <=1.5 % [facility] Na Whole Blood 137 135 - 145 mmol/L [facility] K Whole Blood 5.0 3.5 - 5.0 mmol/L [facility] Comment: Please note: Patients with WBC >100,000 may have falsely elevated Potassium levels. Contact the Clinical Chemistry Laboratory if there are any questions. ICa Whole Blood 1.20 1.15 - 1.33 mmol/L [facility] Comment: Note: ??Total bilirubin higher than 20 mg/dL may lead to falsely low ionized calcium. CL Whole Blood 105 98 - 107 mmol/L [facility] Gluc Whole Bld 186 65 - 199 mg/dL [facility] Comment:Diabetes: >=200 mg/d L plus symptoms. Lactate WB 2.4(H) 0.5 - 2.2 mmol/L [facility] Blood specimen (specimen) 06/13/2020 8:19 AM EST 06/13/2020 8:19 AM EST Chun Stanton MD POINT OF CARE TEST ORDERABLES [facility] [place] [address] * Prepare RBC (06/13/2020 6:40 AM EST) Dispensed? Yes [facility] Blood specimen (specimen) 06/13/2020 6:40 AM EST 06/13/2020 6:39 AM EST Chun Stanton MD BLOOD BANK PRODUCT ORDERABLES [facility] [place] [address] * (ABNORMAL) POCT Glucose (06/13/2020 6:16 AM EST) Glucose, POC 215(H) 65 - 199 mg/dL [facility] Comment: Supplemental ranges: <140 mg/dL before meals <180 mg/dL all other times of the day Blood specimen (specimen) 06/13/2020 6:16 AM EST 06/13/2020 6:16 AM EST Chun Stanton MD POINT OF CARE TEST ORDERABLES [facility] [place] [address] * SCAN DOC: IMPLANTABLE DEVICES (06/13/2020 12:00 [...] Coronary atherosclerosis of unspecified type of vessel, [place] or graft S/P CABG (coronary artery bypass [...] 6 hours upon arrival to Unit. Give NM if unable to take PO, Routine Given [...] on 06/18/20 at 0900, Until Discontinued, Routine Given 06/19/2020 [...] SCHEDULED, First dose (after last modification) on [facility] 06/16/20 at 2100, Until Discontinued, Hold [...] PHENYLephrine and/or vasopressin ineffective. Call pager # [phone] if initiated., Routine Rate/Dose Change 06/13/2020 3:34 [...] 2.0 L/min/M2. Maximum volume 2 L. Call supervisor bottle house cleaners for additional fluid orders: pager #[phone]. Rate/Dose Verify 06/13/2020 4:00 PM EST 50 mL/hr 50 mL/hr Rate/Dose Verify 06/13/2020 3:30 PM EST 50 mL/hr 50 mL/h r New Bag 06/13/2020 1:45 PM EST 50 mL/hr 50 mL/hr sodium chloride 0.9% infusion 10-30 mL/hr, Intravenous, DAILY PRN, Starting on Sat06/13/20 at 1413, Until Sat06/14/20 at 1509, Side port TKO rate, per [facility] nursing protocol. Rate/Dose Verify 06/14/2020 4:00 AM EST 30 mL/hr 30 mL/hr Rate/Dose Verify 06/14/2020 2:00 AM EST 30 mL/hr 30 mL/h r Rate/Dose Verify 06/14/2020 12:00 AM EST 30 mL/hr 30 mL/ hr sodium chloride 0.9% infusion 10-30 mL/hr, Intravenous, DAILY PRN, Starting on Sat06/13/20 at 1413, Until Sat06/14/20 at 1509, Side port TKO rate, per [facility] nrusing protocol. Rate/Dose Verify 06/14/2020 12:00 PM [...] Glover RN)1755 (Given - Provider: Alex Glover, RN)2336 (Given - Provider: Jose Buckley RN) [...] RN)2051 (Given - Provider: Nicole Domínguez RN) 0855 (Given - Provider: Alex Glover RN)2013 (Given - Provider: Jose Buckley, MOISES) 0838 (Given - Provider: Margaux Jones, RN) insulin lispro (HumaLOG) (100 unit/mL) subcutaneous [...] Nicole Domínguez, MOISES)2325 (Given - Provider: Nicole Domínguez, MOISES) 0405 (Given - Provider: Nicole Domínguez RN)0850 (Given - Provider: Alex M Belen, RN - Comment: BG 185 per order [...] Routine documented in this encounter Care Teams Inspector Outside Steam Distribution Relationship Specialty Start Date End Date Ramiro Ball MD [address] [place] [id number] PCP - General 06/06/10 02/17/24 documented as of this encounter
--- OUTSIDE RECORDS SUMMARY | 2024-04-02 21:13 | XMS_ITS | Encounter Summary ---
Author Organization [facility] [place] [address] Care Team Providers Care Judge'S Clerk Name Role Phone Ramiro Ball MD Primary Care Provider [phone] Encounter Details Date Type Department Care Team (Late st Contact Info) Description 07/21/2020 1:00 PM EST Office Visit [place] [id number] Chun Wiley MD [facility] DR CARDIOTHORACIC [place] [address] S/P CABG (coronary artery bypass graft); S/P [...] office. This personal regards, Chun Wiley MD [phone] documented in this encounter Plan of Treatment Upcoming Encounters Date Type Department Care Team (Late st Contact Info) Description 08/27/2024 2:30 PM EST Office [place] [address] Susanna Cm, ANH [facility] [place] [address] documented as of this encounter Procedures Procedure [...] (Bezet) 432 ms MUSE SYSTEM Calculated P [place] 20 degrees MUSE SYSTEM Calculated R [place] -17 degrees MUSE SYSTEM Calculated T [place] -34 degrees MUSE SYSTEM INTERPRETATION Normal sinus rhythm Possible Left atrial enlargement Left ventricular hypertrophy Inferior infarct (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-2020) T wave abnormality, consider lateral ischemia Abnormal ECG When compared with ECG of 13-JUN-2020 14:20, ST no longer elevated in Anterior leads T wave inversion now evident in Anterolateral leads Confirmed by MD Mclain Daniel ([id number]) on 07/21/2020 6:32:41 PM MUSE SYSTEM 07/21/2020 12:5 0 PM EST 07/21/2020 6:32 PM EST Chun Wiley MD ECG ORDERABLES MUSE SYSTEM documented in this encounter Visit Diagnoses Diagnosis S/P CABG (coronary artery bypass graft) Postsurgical aortocoronary bypass status S/P AVR (aortic valve replacement) Heart valve replaced by other means documented in this encounter Care Teams Judge'S Clerk Relationship Specialty Start Date End Date Ramiro Ball MD [address] [place] [id number] PCP - General 06/06/10 02/17/24 documented as of this encounter
--- OUTSIDE RECORDS SUMMARY | 2024-04-02 21:13 | XMS_ITS | Encounter Summary ---
[place] [address] Care Team Providers Care Customer Strategy Manager Name Role Phone Ramiro Ball MD Primary Care Provider [phone] Reason for Referral * Diagnostic Test (Routine) - Closed Specialty Diagnoses / Procedures Referred By Luca beltran Referred To Contact Cardiology Diagnoses S/P CABG (coronary artery bypass graft) S/P AVR (aortic valve replacement) Procedures Echocardiogram Transthoracic([facility]) Natalia Castro PA [facility] [place] [address] [facility] [place] [address] Referral ID Status Reason Start Date Expiration Date V isits Requested Visits Authorized [id number] Closed Specialty Service Requested 06/15/2020 06/15/2021 1 1 Reason for Visit * Diagnostic Test (Routine) - Closed Specialty Diagnoses / Procedures Referred By Luca beltran Referred To Contact Cardiology Diagnoses S/P CABG (coronary artery bypass graft) S/P AVR (aortic valve replacement) Procedures Echocardiogram Transthoracic([facility]) Natalia Castro PA [facility] [place] [address] [facility] [place] [address] Referral ID Status Reason Start Date Expiration Date V isits Requested Visits Authorized [id number] Closed Specialty Service Requested 06/15/2020 06/15/2021 1 1 Encounter Details Date Type Department Care Team (Latest Contact Info) Description 07/21/2020 10:17 AM EST - 07/21/2020 12:01 PM EST Hospital Encounter [place] [address] S/P CABG (coronary artery bypass [...] 2:30 PM EST [place] [address] Susanna Cm APRN [facility] [place] [address] documented as of this encounter Procedures Procedure [...] R ? (Age): 1950(69y) Med Rec#: ? [id number] ?Sex: ?M ? Site Loc: ? [facility] ?Ht / Wt: ??170(cm)/84(kg) Pt. Loc: ?Echo Lab ?BSA: ?1.96 Study Date: ?? 07/21/2020 ?Pt. Type: Outpatient Tape: ? Referring: BARRON Reading: John Andrade ([id number]) Polymer Specialist: Meaghan Cosby RDCS, FASE Diagnosis: *Presence of [...] Vmax ?1.11 ? m/sec ? MV deceleration [id number] ?msec ? MV A-wave Vmax ?1.57 ? [...] ? Mid-Inferior ?Normal ? Mid-Inferoseptal ?Normal ? [place]-Septal ? Normal ? [place]-Anterior ? Normal ? [place]-Lateral ?Normal ? [place]-Inferior ? Normal ? [place]-Tip ?Normal ? This report has been electronically signed by: John Andrade MD ? 07/21/2020 12:13:35 Images reviewed and interpretation verified [facility] Cardiac Ultrasound Laboratory Procedure Note John Andrade MD - 07/21/2020 Procedure: Transthoracic Echocardiogram Patient: ELMER DIAZ(Age): 1950(69y) Med Rec#: [id number] Sex: M Site Loc: [facility] Ht / Wt: 170(cm)/84(kg) Pt. Loc: Echo Lab BSA: 1.96 Study Date: 07/21/2020 Pt. Type: Outpatient Tape: Referring: BARRON Reading: John Andrade ([id number]) Polymer Specialist: Meaghan Cosby RDCS, ISA Diagnosis: *Presence of [...] MV E-wave Vmax 1.11 m/sec MV deceleration [id number] msec MV A-wave Vmax 1.57 m/sec MV [...] Normal Mid-Posterolateral Normal Mid-Inferior Normal Mid-Inferoseptal Normal [place]-Septal Normal [place]-Anterior Normal [place]-Lateral Normal [place]-Inferior Normal [place]-Tip Normal This report has been electronically signed by: John Andrade MD 07/21/2020 12:13:35 Images reviewed and interpretation verified [facility] Cardiac Ultrasound Laboratory Chun Wiley MD ECHO ORDERABLES documented in this encounter Visit Diagnoses Diagnosis S/P CABG (coronary artery bypass graft) Postsurgical aortocoronary bypass status S/P AVR (aortic valve replacement) Heart valve replaced by other means documented in this encounter Care Teams Customer Strategy Manager Relationship Specialty Start Date End Date Ramiro Ball MD [address] [place] [id number] PCP - General 06/06/10 02/17/24 documented as of this encounter
--- NOTE | 2024-04-02 21:14 | DI.VRAD_ITS ---
PROCEDURE INFORMATION: Exam: CT Head Without Contrast Exam date and time: 04/02/2024 8:22 PM Age: 73 years old Clinical indication: Other: CVA 5 wks ago, left sided paresthesias ( R infarct TECHNIQUE: Imaging protocol: Computed tomography of the head without contrast. COMPARISON: No relevant prior studies available. FINDINGS: Brain: Moderate cerebral atrophy. No edema or hemorrhage. Cerebral ventricles: Ex vacuo dilation of the ventricular system. Paranasal sinuses: No acute sinusitis. Mastoid air cells: No mastoid effusion. Bones: No acute fracture. Soft tissues: No suspicious lesions. IMPRESSION: No acute intracranial findings. Dictated and Authenticated by: Vivian John MD. Ordering:NORA Walker MD
--- OUTSIDE RECORDS SUMMARY | 2024-04-02 21:14 | XMS_ITS | Encounter Summary ---
[place] [address] Care Team Providers Care Crew Boss Name Role Phone Ramiro Ball MD Primary Care Provider [phone] Reason for Visit * Auth/Cert Specialty Diagnoses / Procedures Referred By Luca beltran Referred To Contact Diagnoses Aortic stenosis /PRE TAVR Procedures PRG CATH PLMT CORONARY ART W/INJ FOR ANGIO W/R HEART CATH IMG S&I CARDIAC CATHETERIZATION CORONARY ANGIOGRAPHY; W C Referral ID Status Reason Start Date Expiration Date Visits Re quested Visits Authorized [id number] 1 1 Encounter Details Date Type Department Care Team (Latest Contact Info) Description 06/03/2020 3:10 PM EST [place] [phone] Nonrheumatic aortic valve stenosis Social History Tobacco [...] 2:30 PM [place] [phone] Susanna Cm, REPORTING SPECIALIST [facility] [place] [address] documented as of this encounter Procedures Procedure [...] EST) Glucose, Urine Dipstick Negative Negative mg/dL [facility] Protein, Urine Dipstick 100(A) Negative mg/dL [facility] Bilirubin, Urine Dipstick Negative Negative mg/dL [facility] Comment: Clinical correlation required for positive Urine Bilirubin results as false positive may occur with some drugs and drug related products. If a false positive is suspected a serum total bilirubin should be considered if clinically indicated. Urobilinogen, Urine Dipstick Normal Normal mg/dL [facility] pH, Urn (dipstick) 6.0 5.0 - 8.0 [facility] Blood, Urine Dipstick Negative Negative mg/dL [facility] Ketone, Urine Dipstick Negative Negative mg/dL [facility] Nitrite, Urine Dipstick Negative Negative [facility] Leukocytes, Urine Dipstick Negative Negative [facility] Appearance, Urine Dipstick Clear Clear [facility] Specific [place] Urine Automated >=1.030(A) 1.006 - 1.030 [facility] Color, Urine Dipstick Yellow Yellow [facility] Urine specimen (specimen) 06/03/2020 4:36 PM EST 06/03/2020 4:36 PM EST Narrative Resulting Agency Comment Spec In Lab Chun Wiley MD URINE ORDERABLES Performing Organization Address City/State/[facility] Co de Phone Number [facility] [place] [address] * Differential, Automated (06/03/2020 4:10 PM EST) Neutrophil % 54.4 % [facility] Neutrophil Absolute 3.47 1.70 - 6.10 x10(3)/[facility] Lymph % 31.1 % [facility] Lymphocytes Abs 2.0 0.9 - 3.2 x10(3)/[facility] Monocyte % 10.0 % [facility] Monocyte Abs 0.6 0.3 - 0.9 x10(3)/[facility] Eos % 3.3 % [facility] Eosinophils Abs 0.2 0.0 - 0.4 x10(3)/[facility] Basophil % 0.9 % [facility] Baso Absolute 0.1 0.0 - 0.1 x10(3)/[facility] Immature Gran % 0.30 % [facility] Comment: Immature granulocytes(IG's)percentage and absolute count will include metamyelocytes, myelocytes, and promyelocytes. Blood smears from CBCs yielding IG's will be scanned manually for concordance. If this scan disagrees with the automated IG or if promyelocytes are noted, a manual differential will be performed. Immature Gran Absolute 0.02 0.00 - 0.04 x10(3)/[facility] Blood specimen (specimen) 06/03/2020 4:10 PM EST 06/03/2020 4:53 PM EST Narrative Resulting Agency Comment Spec In Lab Chun Wiley MD HEMATOLOGY ORDERABL ES [facility] [place] [address] * (ABNORMAL) Hemogram (06/03/2020 4:10 PM EST) White Blood Cell 6.4 4.0 - 9.5 x10(3)/ L [facility] Red Blood Cell 4.45(L) 4.58 - 5.54 x10(6)/ L [facility] Hemoglobin 12.8(L) 13.7 - 16.5 gm/dL [facility] Hematocrit 37.5(L) 40.5 - 48.5 % [facility] Mean Cell Volume 84.3 82.9 - 93.1 fL [facility] Mean Cell Hemoglobin 28.8 27.5 - 32.1 pg [facility] Mean Cell Hemoglobin Concentration 34.1 32.0 - 35.7 gm/dL [facility] Platelet 155 145 - 357 x10(3)/ L [facility] RDW Standard Deviation 41.7 36.0 - 45.0 fL [facility] RDW coefficient of variation 13.6 11.4 - 13.8 % [facility] Mean Platelet Volume 12.3 7.6 - 12.9 fL [facility] NRBC% auto 0.0 % [facility] NRBC Absolute 0.000 0.000 - 0.000 x10(3)/mc L [facility] Blood specimen (specimen) 06/03/2020 4:10 PM EST 06/03/2020 4:53 PM EST Narrative Resulting Agency Comment Spec In Lab Chun Wiley MD HEMATOLOGY ORDERABL ES [facility] [place] [address] * (ABNORMAL) Basic Metabolic Panel (non-fasting) (06/03/2020 4:10 PM EST) Glucose 208(H) 65 - 199 mg/dL [facility] Comment:Diabetes: >=200 mg/d L plus symptoms Blood Urea Nitrogen 16 10 - 20 mg/dL [facility] Creatinine 1.19 0.80 - 1.50 mg/dL [facility] Sodium 137 135 - 145 mmol/L [facility] Potassium 4.7 3.5 - 5.0 mmol/L [facility] Comment: Please note: ??Patients with WBC >100,000 may have falsely elevated Potassium levels. ??For accurate Potassium quantification in these patients send serum separator tube (gold top) for subsequent determinations. ??Contact the Clinical Chemistry Laboratory if there are any questions. Chloride 105 98 - 107 mmol/L [facility] Carbon Dioxide 23 22 - 31 mmol/L [facility] Anion Gap 9 5 - 15 mmol/L [facility] Calcium 9.7 8.5 - 10.5 mg/dL [facility] Est Glomerular Filtration Rate 62 >=60 mL/min/1. 73 m?? [facility] Comment: The eGFR was calculated using the CKD-EPI equation. As with all creatinine based estimates of kidney function, eGFR values calculated with the CKD-EPI equation are not accurate in patients with acute kidney failure, extremes of body mass or the acutely ill. http://[employer]/[facility]ASH[facility]kf eGFR 71 >=60 mL/min/1. 73 m?? [facility] Comment: The eGFR was calculated using the CKD-EPI equation. As with all creatinine based estimates of kidney function, eGFR values calculated with the CKD-EPI equation are not accurate in patients with acute kidney failure, extremes of body mass or the acutely ill. http://[employer]/[facility] Blood specimen (specimen) 06/03/2020 4:10 PM EST 06/03/2020 4:53 PM EST Narrative Resulting Agency Comment Spec In Lab Chun Wiley MD CHEMISTRY ORDERABLE S Performing Organization Address [facility] Co de Phone Number [facility] [place] [address] * Hepatic Function Panel (06/03/2020 4:10 PM EST) Protein, Total 7.2 6.1 - 8.0 gm/dL [facility] Albumin 4.5 3.2 - 5.2 gm/dL [facility] Aspartate Aminotransferase 20 0 - 39 unit/L [facility] Alanine Aminotransferase 14 0 - 55 unit/L [facility] Alkaline Phosphatase 53 40 - 130 unit/L [facility] Bilirubin, Total 0.3 0.2 - 1.3 mg/dL [facility] Bilirubin, Direct 0.1 0.0 - 0.3 mg/dL [facility] Blood specimen (specimen) 06/03/2020 4:10 PM EST 06/03/2020 4:53 PM EST Narrative Resulting Agency Comment Spec In Lab Chun Wiley MD CHEMISTRY ORDERABLE S Performing Organization Address [facility] Co de Phone Number [facility] [place] [address] * Prothrombin Time (06/03/2020 4:10 PM EST) Prothrombin Time 12.4 9.4 - 12.5 sec [facility] International Normalization Ratio 1.1 [facility] Comment: An INR <2.0 indicates adequate [...] MD HEMATOLOGY ORDERABL ES Performing Organization Address City/[facility]/ZIP Co de Phone Number [facility] [place] [address] * ABORH Recheck Status (06/03/2020 4:02 PM EST) ABORH Recheck Order Order Placed [facility] ABORH Type Recheck Complete [facility] Blood specimen (specimen) 06/03/2020 4:02 PM EST 06/03/2020 4:35 PM EST Narrative Resulting Agency Comment Spec In Lab Chun Wiley MD BLOOD BANK LAB ORDE RABLES [facility] [place] [address] * Antibody screen (06/03/2020 4:02 PM EST) Ab Screen Interp Negative [facility] Expires at 2359 on: 06/16/2020 [facility] Blood specimen (specimen) 06/03/2020 4:02 PM EST 06/03/2020 4:35 PM EST Narrative Resulting Agency Comment Spec In Lab Chun Wiley MD BLOOD BANK LAB KAMLESH BOWER Performing Organization Address City/[facility]/ZIP Co de Phone Number [facility] [place] [address] * ABO/Rh Typing (06/03/2020 4:02 PM EST) ABORH Type A Neg [facility] Blood specimen (specimen) 06/03/2020 4:02 PM EST 06/03/2020 4:35 PM EST Narrative Resulting Agency Comment Spec In Lab Chun Wiley MD BLOOD BANK LAB KAMLESH BOWER Performing Organization Address [facility] Co de Phone Number [facility] [place] [address] documented in this encounter Visit Diagnoses Diagnosis Nonrheumatic aortic valve stenosis Aortic valve disorders documented in this encounter Care Teams Crew Boss Relationship Specialty Start Date End Date Ramiro Ball MD [address] [place] [address] PCP - General 06/06/10 02/17/24 documented as of this encounter
--- OUTSIDE RECORDS SUMMARY | 2024-04-02 21:14 | XMS_ITS | Encounter Summary ---
[place] [address] Care Team Providers Care Engineering Vice President Name Role Phone Ramiro Ball MD Primary Care Provider [phone] Encounter Details Date Type Department Care Team (Late st Contact Info) Description 06/11/2020 [place] [address] Maria Del Carmen Bazan CCMA [...] 2:30 PM EST Office Visit [place] [address] Susanna Cm APRN [facility] [place] [place] [address] documented as of this encounter Visit Diagnoses Not on filedocumented in this encounter Care Teams Engineering Vice President Relationship Specialty Start Date End Date Ramiro Ball MD [address] [place] [address] PCP - General 06/06/10 02/17/24 documented as of this encounter
--- OUTSIDE RECORDS SUMMARY | 2024-04-02 21:14 | XMS_ITS | Encounter Summary ---
[place] [address] Care Team Providers Care Medical Leader Name Role Phone Ramiro Ball MD Primary Care Provider [phone] Reason for Visit * Auth/Cert Specialty Diagnoses / Procedures Referred By Luca t Referred To Contact Diagnoses Aortic stenosis /PRE TAVR Procedures PRG CATH PLMT CORONARY ART W/INJ FOR ANGIO W/R HEART CATH IMG S&I CARDIAC CATHETERIZATION CORONARY ANGIOGRAPHY; W RHC Referral ID Status Reason Start Date Expiration Date Visits Re quested Visits Authorized [id number] 1 1 Encounter Details Date Type Department Care Team (Late st Contact Info) Description 06/03/2020 10:28 AM EST - 06/03/2020 11:28 AM EST Surgery [place] [phone] Jim Castelan MD [facility] [place] [address] CARDIAC CATHETERIZATION Social History Tobacco Use Types [...] by your doctor, do not take any xcah-cdt-qrlbbfx medicinesor herbal preparations without first discussing this with your doctor or pharmacist. There is the possibility of side effects and interactions when these are combined. Follow Up Care Who to call with questions or problems If there are any questions or problems that you think might be related to your cardiac cath or angioplasty, contact the companion sewing machines salesperson by calling [facility] at . * Patient Instructions* Johnathan Kothari PA - 06/03/2020 12:33 PM EST Cardiac Cath Provider Discharge Instructions Procedure: right heart catheterization, coronary angiography Call your doctor if: Chest pain, dyspnea, pain or swelling in legs occurs. If you have non-emergentquestions between now and the time of your follow up appointments: During 8am-5pm Saturday through Saturday call [phone] and ask to speak to the cardiology clinic triage nurse. All other times call [phone] and ask to speak to the bingo attendant sewing machines salesperson. Return to work: One week Driving: No driving for 24 hours after catherization Diet: regular diet Follow up Appointments: companion Dr Castelan to discuss the next options [...] next steps. Johnathan Kothari PA-C Interventional Cardiology [facility] Pager [phone] documented in this encounter Medications at Time [...] of this encounter Progress Notes * Evangelina Navaror RN - 06/03/2020 3:00 PM EST Pt d/c'd post cardiac cath to [facility] before going home. He is accompanied by his . Pt's R radial and R AC sites are benign. Sling placed on R arm as reminder not to use wrist. * Shante Duke RN - 06/03/2020 11:30 AM EST Patient had cranberry/grape juice mixture this morning around 0730. specialist employee labor relations called, Yobani from [facility] notified and said that is okay. MD Aline also notified. Shante Duke RN documented in this encounter H&P Notes * Ivon Gracia PA - 06/03/2020 11:33 AM EST Patient Name: Johnson Tobar Patient Age: 69 y.o. Birthdate: 1950 Admit date: 06/03/2020 Attending Physician: Jim Castelan MD [facility] Interventional Cardiology Adult [...] RASHEL Champion Interventional Cardiology 06/03/20 11:33 AM [facility] Pager: [phone] documented in this encounter Miscellaneous Notes * Brief Op Note - Jim Castelan MD - 06/03/2020 12:28 PM EST Preliminary Cardiac Catheterization Procedure Note: Patient Name: Johnson Tobar : [id number] MR#: [id number] Case Date: 06/03/2020 Sales And Production Manager: Surgeon(s) and Role: * Jim Castelan MD - Primary * Johnathan Kothari PA - Physician Mileage Clerk Preoperative diagnosis: /PRE TAVR Postoperative diagnosis: * [...] 2:30 PM EST [place] [address] [facility] [place] [address] documented as of this encounter Procedures Procedure [...] HOSPITAL LABORATORY Leukocytes, Urine Dipstick Negative Negative [facility] Appearance, Urine Dipstick Clear Clear [facility] Specific [place] Urine Automated >=1.030(A) 1.006 - 1.030 [facility] Color, Urine Dipstick Yellow Yellow [facility] Urine specimen (specimen) 06/03/2020 4:36 PM EST 06/03/2020 4:36 PM EST Narrative Resulting Agency Comment Spec In Lab Chun Wiley MD URINE ORDERABLES [facility] [place] [address] * XR Chest PA & Lateral (Generic) [...] * Prothrombin Time (06/03/2020 4:10 PM EST) Pathologist [facility] Prothrombin Time 12.4 9.4 - 12.5 sec [...] HEMATOLOGY ORDERABL ES [facility] [place] [address] * Hepatic Function Panel (06/03/2020 4:10 PM EST) Pathologist [facility] Protein, Total 7.2 6.1 - 8.0 gm/dL [...] CHEMISTRY ORDERABLE S [facility] [place] [address] * (ABNORMAL) Basic Metabolic Panel (non-fasting) (06/03/2020 [...] of body mass or the acutely ill. [email or web address]/[facility] eGFR 71 >=60 mL/min/1. 73 m?? [facility] Comment: The eGFR was calculated using the CKD-EPI equation. As with all creatinine based estimates of kidney function, eGFR values calculated with the CKD-EPI equation are not accurate in patients with acute kidney failure, extremes of body mass or the acutely ill. [email or web address]://[employer]/[facility] Blood specimen (specimen) 06/03/2020 4:10 PM EST 06/03/2020 4:53 PM EST Narrative Resulting Agency Comment Spec In Lab Chun Wliey MD CHEMISTRY ORDERABLE S [facility] [place] [phone] * (ABNORMAL) Point of Care Blood Gas [...] normal MCHC. POC Bgas Loc CC LAB [facility] Blood specimen (specimen) 06/03/2020 1:08 PM EST 06/07/2020 9:00 AM EST Jim Castelan MD CHEMISTRY ORDERABLES Performing Organization Address [facility]/State/[facility] Co de Phone Number [facility] [place] [address] * CARDIAC CATHETERIZATION (06/03/2020 12:30 PM EST) Anatomical Region Laterality Modality Other Narrative 06/03/2020 12:59 PM EST ?[facility] ? Cardiac Catheterization/Intervention Report ? Patient Name: Ekaterina, Johnson R. ? Procedure Date: 06/03/2020 ? A #: [id number] ? Primary Physician: Annelise, Jim T ? Case #: [id number] ? File Name: [id number] ? Catheterization Order Number: [id number] ? [facility] ? Final Report [place], [place] ? Patient Name: ? Johnson R. Ekaterina ? ID#: ?[id number] ? : ?1950 ? Procedure Date: ? [...] was designated as ASA Class III. The [facility] clinical frailty scale ?is 3: Managing Well. [...] procedure was Elective. 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 Chest pain symptom [...] Procedure Note Jim Castelan MD - 06/27/2020 [facility] Cardiac Catheterization/Intervention Report Patient Name: Johnson Tobar Procedure Date: 06/03/2020 A #: [id number] Primary Physician: Jim Castelan Case #: [id number] File Name: [id number] Catheterization Order Number: [id number] [facility] FinalReport [place], [place] Patient Name: Johnson Tobar ID#:[id number] :1950 Procedure Date: June 03, 2020 Case [...] was designated as ASA Class III. The [facility] clinical frailtyscale is 3: Managing Well. [...] diagnostic procedure was Elective. 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 Chest pain symptomassessment [...] (Bezet) 407 ms MUSE SYSTEM Calculated P Apex 40 degrees MUSE SYSTEM Calculated R Apex -17 degrees MUSE SYSTEM Calculated T Apex -60 degrees MUSE SYSTEM INTERPRETATION Normal sinus rhythm Left ventricular hypertrophy with repolarization abnormality ( R in aVL ) Inferior infarct (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-2020) J-point elevation Abnormal ECG When compared with ECG of 26-MAY-2020 14:30, No significant change was found Confirmed by MD Mclain Daniel ([id number]) on 06/03/2020 1:23:54 PM MUSE SYSTEM 06/03/2020 [...] Coronary atherosclerosis of unspecified type of vessel, [place] or graft documented in this encounter Administered [...] MD) documented in this encounter Care Teams Medical Leader Relationship Specialty Start Date End Date Ramiro Ball MD [address] [place] [address] PCP - General 06/06/10 02/17/24 documented as of this encounter
--- OUTSIDE RECORDS SUMMARY | 2024-04-02 21:14 | XMS_ITS | Encounter Summary ---
Author Organization [facility] [place] [address] Care Team Providers Care Server Developer Name Role Phone Ramiro Ball MD Primary Care Provider [phone] Reason for Visit * Auth/Cert Specialty Diagnoses / Procedures Referred By Faraac t Referred To Contact Diagnoses CAD (coronary [...] Expiration Date Visits Re quested Visits Authorized [id number] 1 1 Encounter Details Date Type Department Care Team (Late st Contact Info) Description 06/13/2020 7:29 AM EST Anesthesia [place] [address] Marianna Torres MD [facility] [place] [address] Sarahi Avery MD [facility] [place] [address] Anesthesia Record Procedure Summary Procedure Name Responsible [...] 654; metacarpal vein (top of hand), right; cdqy-tgf-ioxxvr catheter system; 20 gauge; Michael Brewer RN; distraction, tolerated well, appears comfortable; 0; lumen/catheter not patent, catheter/device intact; 06/17/20; 212706/13/20654 by Alen Brewer RN 06/17/202127 by Carl Carney RN ETT Mask Ventilation: Ad junct (2); [...] by Ramon Lucero RCP Urethral Catheter 06/13/20; 806; Surg eri longer than 2 hours, Need for intraoperative urine output monitoring; hydrophilic coated, latex; 14; inserted at this facility; 1; 5; 10; urethral catheter removed; by LONG LINES OPERATOR; 06/15/20; 1014 06/13/20 08 by Noemi Villanueva RN 06/15/20 101 by Katherine Flores, MOISES (RETIRED) Pulmonary Artery Catheter - Triple Lumen 06/13/20; 08; jugular vein, right internal; VIP; CVC Protocol Performed; Bennie DIEZ; 06/13/20; 204906/13/20 08 by Sarahi Avery MD 06/13/202049 by Ling Goodman RN Arterial Line 06/13/20; 0820; radi al artery, right; 20 gauge; Bennie DIEZ; Sterile Prep, Sterile Gloves; 06/14/20; 1503 06/13/20 08 by Sarahi Avery MD 06/14/20 1503 by Isidra Ballard, RN (RETIRED) Percutaneous Central Line - Single Lumen 06/13/20; 08; internal jugular vein, right; Ultrasound Guidance; No; 9 Fr; Bennie DIEZ; DEBORAH; CVC Protocol Performed; 06/14/20; 1500 06/13/20 08 by Sarahi Avery MD 06/14/20 1500 by [...] Procedure Summary Date: 06/13/20 Room / Location: [facility] OR [address] [place] [address] MAIN OR Anesthesia Start: 728 Anesthesia Stop: [...] All Anesthesia Providers: Anesthesiologist: Marianna Torres MD Didactic Instructor: Sarahi Avery MD Vitals Value Taken Time BP Temp 35.9 ??C (96.62 ??F) 06/13/20 1357 Pulse 80 06/13/20 1357 Resp SpO2 100 % 06/13/20 1357 Pain Level Vitals shown include unvalidated device data. Patient Location: [facility] Level of Consciousness: Sedated (Pharmacologic/Intentional) Pain Management: [...] breath sounds clear to auscultation Dental Assessment: Misc Assessment: Patient is wearing No contact(s). IV [...] 155 - LFTs (06/03/20) wnr Imaging/other studies: LHC / Coronary Angiography (06/03/20) - PASP 45/13, [...] with attending and resident. PAT Clinic Note Electronically signed by Sarahi Avery 06/13/2020 7:18 AM EST documented in this encounter Plan of Treatment Upcoming Encounters Date Type Department Care Team (Late st Contact Info) Description 08/27/2024 2:30 PM EST Office Visit Neurology at [facility] [place] [address] Susanna Cm, ANH [facility] [place] [address] documented as of this encounter Visit Diagnoses [...] mg documented in this encounter Care Teams Server Developer Relationship Specialty Start Date End Date Ramiro Ball MD [address] [address] PCP - General 06/06/10 02/17/24 documented as of this encounter
--- OUTSIDE RECORDS SUMMARY | 2024-04-02 21:14 | XMS_ITS | Encounter Summary ---
Author Organization [facility] Address [facility] [place] [address] Care Team Providers Care Application Software Engineer Name Role Phone Ramiro Ball MD Primary Care Provider [phone] Reason for Visit * Auth/Cert Specialty Diagnoses / Procedures Referred By Contac t Referred To Contact Diagnoses Aortic stenosis /PRE TAVR Procedures PRG CATH PLMT CORONARY ART W/INJ FOR ANGIO W/R HEART CATH IMG S&I CARDIAC CATHETERIZATION CORONARY ANGIOGRAPHY; W RHC Referral ID Status Reason Start Date Expiration Date Visits Re quested Visits Authorized [id number] 1 1 Encounter Details Date Type Department Care Team (Latest Contact Info) Description 06/03/2020 4:13 PM EST - 06/03/2020 11:59 PM [facility] Hospital Encounter XRay at [address] [place] [address] Chun Wiley MD [facility] C[place] [address] Nonrheumatic aortic valve stenosis Discharge Disposition: Home [...] 2:30 PM EST Office [place] [address] Susanna Cm, ANH [facility] [place] [address] documented as of this encounter Procedures Procedure [...] disorders documented in this encounter Care Teams Application Software Engineer Relationship Specialty Start Date End Date Ramiro Ball MD [address] [place] [id number] PCP - General 06/06/10 02/17/24 documented as of this encounter
--- OUTSIDE RECORDS SUMMARY | 2024-04-02 21:14 | XMS_ITS | Encounter Summary ---
[place] [address] Care Team Providers Care Nickel Plant Operator Name Role Phone Ramiro Ball MD Primary Care Provider [phone] Reason for Visit * Auth/Cert Specialty Diagnoses [...] Expiration Date Visits Re quested Visits Authorized [id number] 1 1 Encounter Details Date Type Department Care Team (Late st Contact Info) Description 06/10/2020 10:05 AM [facility] Public [place] [address] COVID-19 ruled out Social History Tobacco Use [...] 2:30 PM EST [place] [address] Susanna Cm APRN [facility] [place] [place] [address] documented as of this encounter Procedures Procedure Name Priority Date/Time Associated Diagnosis Comments COVID-19 PCR Routine 06/10/2020 11:03 AM EST COVID-19 ruled out documented in this encounter Results * COVID-19 PCR (06/10/2020 11:03 AM EST) SARS-CoV-2 RNA Not Detected Not Detected [facility] Comment: This result should be [...] diagnosis of COVID-19 is performed using the [employer] m SARS-CoV-2 Assay as authorized by the FDA Emergency Use Authorization (EUA). This EUA assay is intended for In-vitro Diagnostic (IVD) use with respiratory specimens such as nasopharyngeal swabs collected from individuals during the acute phase of infection. This assay is performed based on the instructions for use provided by [employer] and additional guidance provided by CDC and FDA. Testing is performed in the [facility] within the Department of Pathology and Laboratory Medicine at [facility], certified under the Clinical Laboratory Improvement Amendments [...] fact sheets at the following FDA website: https://www.fda.gov/medical-devices/swhnpkgvjme-qogknvr-7960-vquna-16-kbkbwxcdc- use-a ilwbytjgcgfze-llxulix-ljamvpx/tscvb-zmychkvemsb-qbjd SARS-CoV-2 RNA Source LOCAL COORDINATOR Swab [facility] Nasopharyngeal swab (specimen) 06/10/2020 11:03 AM EST 06/10/2020 11:03 AM EST Comment:Symptoms->Asymptomat ic Narrative Resulting Agency Comment Spec In Lab Chun Wiley MD MOLECULAR ORDERABLE S [facility] [place] [address] documented in this encounter Visit Diagnoses Diagnosis COVID-19 ruled out documented in this encounter Care Teams Nickel Plant Operator Relationship Specialty Start Date End Date Ramiro Ball MD [address] [place] [id number] PCP - General 06/06/10 02/17/24 documented as of this encounter
--- OUTSIDE RECORDS SUMMARY | 2024-04-02 21:14 | XMS_ITS | Encounter Summary ---
[place] [address] Care Team Providers Care Vertical Boring Mill Operator Name Role Phone Ramiro Ball MD Primary Care Provider [phone] Reason for Visit * Auth/Cert Specialty Diagnoses / Procedures Referred By Contac t Referred To Contact Diagnoses Aortic stenosis /PRE TAVR Procedures PRG CATH PLMT CORONARY ART W/INJ FOR ANGIO W/R HEART CATH IMG S&I CARDIAC CATHETERIZATION CORONARY ANGIOGRAPHY; W C Referral ID Status Reason Start Date Expiration Date Visits Re quested Visits Authorized [id number] 1 1 Encounter Details Date Type Department Care Team (Late st Contact Info) Description 06/03/2020 3:30 PM EST Clinical [place] [address] Social History Tobacco Use Types Packs/Day Years [...] in this encounter Progress Notes * Nkechi Bustillos RN - 06/03/2020 3:30 PM EST PAT [...] 2:30 PM EST Office [place] [address] Susanna Cm, ANH [facility] [place] [address] documented as of this encounter Visit Diagnoses Not on filedocumented in this encounter Care Teams Vertical Boring Mill Operator Relationship Specialty Start Date End Date Ramiro Ball MD [address] [place] [id number] PCP - General 06/06/10 02/17/24 documented as of this encounter
--- OUTSIDE RECORDS SUMMARY | 2024-04-02 21:14 | XMS_ITS | Encounter Summary ---
[place] [address] Care Team Providers Care Medical Assembler Name Role Phone Ramiro Ball MD Primary Care Provider [phone] Encounter Details Date Type Department Care Team (Late st Contact Info) Description 06/06/2020 [place] [address] Sujatha Carter Social History Tobacco Use Types [...] encounter Miscellaneous Notes * Telephone Encounter - Genevieve Gonzalezhany V - 06/07/2020 1:25 PM EST 1. ASK: TRAVEL ???Have you travelled outside of [place] ([place], [place], [place], [place], [place], [place]) in the past 14 days??? 2. ASK: [...] Transfer patient to the Covid-19 Hotline Number ([phone]) for further instructions. If 'No' to all of the questions above Is this the first test for Covid 19 Yes If no, please list date of previous test, result, and type of test (Molecular, Antigen, Antibody orunknown): [place] [facility] or other [facility] No Employee or [...] patient. Ordering provider: Dr. Wiley Testing Facility: [facility] Date of Testin/27 Time of Testin:00a [...] 2:30 PM EST Office [place] [address] Susanna Cm, ANH [facility] [place] [address] documented as of this encounter Visit Diagnoses Not on filedocumented in this encounter Care Teams Medical Assembler Relationship Specialty Start Date End Date Ramiro aBll MD [address] [place] [id number] PCP - General 06/06/10 02/17/24 documented as of this encounter
--- OUTSIDE RECORDS SUMMARY | 2024-04-02 21:14 | XMS_ITS | Encounter Summary ---
Author Organization [facility] Address [facility] [place] [address] Care Team Providers Care Customs And Immigration Officer Name Role Phone Ramiro Ball MD Primary Care Provider [phone] Reason for Visit * Auth/Cert Specialty Diagnoses [...] Expiration Date Visits Re quested Visits Authorized [id number] 1 1 Encounter Details Date Type Department Care Team (Late st Contact Info) Description 06/13/2020 7:30 AM EST - 06/13/2020 1:47 PM EST [place] [address] Chun Stanton MD [facility] [place] [address] @REPLACE AORTIC VALVE, OPEN, W\CPB, W\PROSTHETIC VALVE [...] Patient Age: 69 y.o. Birthdate: 1950 Language: Georgian Race: White Ethnicity: Not nor Admit Date: [...] office will schedule an appointment with your Ride Assembly Supervisor, Dr. Lackey, in 2 weeks. ??? Our office will schedule an appointment with your Cardiac Surgeon, Dr. Chun Stanton, in 4weeks with a chest x-ray, EKG, and Echo before your appointment. Inpatient Provider Contact Information: [facility] Section of Cardiac Surgery [facility] [address] FAX [phone] Discharge Diagnoses (Hospital Problems) Primary Diagnoses: Aortic [...] 33.75) performed by Chun Stanton MD at [facility] MAIN OR ??? PRO CABG, ARTERY-VEIN, TWO N/A 06/13/2020 @CABG, TWO VENOUS GRAFTS & ARTERIAL GRAFT (WRVU 7.93) performed by Chun Stanton MD at [facility] MAIN OR ??? PRO ENDOSCOPY W/VIDEO-ASST VEIN HARVEST, CABG Right 06/13/2020 ENDOSCOPIC HARVEST VEIN(S) FOR CABG (WRVU 0.31) performed by Chun Stanton MD at [facility] MAIN OR ??? PRO REPLACE AORT VALV, PROSTH VALV N/A 06/13/2020 @REPLACE AORTIC VALVE, OPEN, W\CPB, W\PROSTHETIC VALVE (WRVU 41.32) performed by Chun Stanton MD at [facility] MAIN OR Prior To Admission [...] TABLET BY MOUTH TWICE A DAY 06/13/2020 [id number] ??? omeprazole (PriLOSEC) 20 mg Capsule, Delayed [...] ??He has treated hypertension, he is a drs-prhfbks-olbhkcvqc diabetic. ??He has known dyslipidemia. ??He has had no known previous CVA or TIA. ??He has no known hepatic dysfunction he does have mild renal insufficiency with a baseline creatinine of about 1.3. ??He was not a user of tobacco. ??He is undergone prior appendectomy. ??He does have a family history of atherosclerotic disease in that his father following an OR at 48 years of age. He hasworked [...] x 3 Johnson Tobar was admitted to [facility] on 06[facility]13/2020 via the Same DayProgram. He [...] Chun Stanton and/or the Cardiac Surgery Physician Cyber Security Manager Team may be reached at . Antibiotic prophylaxis: You will need to take antibiotics prior to many invasive tests and treatments, such as dental cleaning, which should be done every 6 months. Your primary care physician or your dentist can prescribe this medication. Please refer to the card with the [place] [employer] Guidelines for more information. You have been provided with a copy of this card. Please refer to the [place] Heart [employer] Guidelines for more information. Good [...] Dr. Chun Stanton. You may use a [place] Track or treadmill but avoid any pulling [...] friends, go to a movie, go to jainism, etc. Heavy activities: No hunting, skiing, jogging, [...] should resume a low fat, low cholesterol, [place] Heart [employer] Diet. Driving: No driving until [...] office will schedule an appointment with your Ride Assembly Supervisor, Dr. Lackey, in 2 weeks. ??? You have a follow up appointment with your Cardiac Surgeon, Dr. Chun Stanton, July 21at 1:00pm with a chest x-ray, EKG, and Echo before your appointment. Cardiac Rehabilitation: Johnson Tobar was seen today regarding participation in the outpatient Phase 2 Cardiac Rehabilitation at [facility]. The patient agrees to a referral to this program. The referral will be sent at discharge and the patient should be contacted by the Program within 1- 2 weeks from discharge. Future Appointments and Orders Future Appointments and Orders Future Appointments Provider Department Dept Phone 07/21/2020 10:30 AM ECHO REGULAR Non-Invasive Cardiology Lab [facility] Arrive at: [facility] [phone] 07/21/2020 12:15 PM [facility] DX ROOM 2 [place]Ray [place] [facility] [place]rive at: [facility] [address] [phone] Please go to [facility] ([place] Location). 07/21/2020 1:00 PM Chun Stanton MD Cardiac Surgery at [facility] Arrive at: [facility] [phone] Future Orders Complete By Expires Echocardiogram Transthoracic([facility]) [27394 CPT(R)] 07/16/2020 (Approximate) 09/13/2020 Process Instructions: Scheduling Instructions: Comments: Questions: Is a Bubble Study requested?: Does the patient have Congenital Heart Disease?: Does patient require sedation?: GA rationale: Where should this exam be performed?: [facility] EKG 12 Lead [88236 CPT(R)] 07/16/2020 (Approximate) 09/13/2020 Process Instructions: Scheduling Instructions: Questions: Which location will this be performed?: [place] Is a rhythm strip needed?: No XR Chest PA & Lateral (Generic) [47349 57520 Custom] 07/16/2020 (Approximate) 09/13/2020 Process Instructions: Scheduling Instructions: Comments: Questions: Where will study be performed?: [facility] Radiology Portable exam?: Reason for exam and clinical history: S/P AVR/CABGx3 Clinical information / pedraza questions: Stat read required?: Date of injury if applicable: Requested Time: Referral to Cardiac Rehab [AHB183 Custom] As directed Process Instructions: If no progress note charted, please enter Clinical details in comments. Scheduling Instructions: Questions: My question or request is: s/p AVR/CABG. Cardiac rehab at [facility] Referral to Home Health - at DISCHARGE [FUZ0676 CPT(R)] As directed Process Instructions: Scheduling Instructions: Comments: DOCUMENTATION FOR VNA SERVICES (INCLUDING THOSE PATIENTS WITH MEDICARE COVERAGE REQUIRING HOME VNA SERVICES AND/OR HOSPICE SERVICES) PATIENT'S LOCATION: Johnson Tobar [address] [facility] [id number] (home) No relevant phone numbers on file. Silo Tender's Name: self and -Emili In discussion with the attending physician, it is certified that this patient is under their care and that they, or a Nurse Practitioner, or Physician Cyber Security Manager who is working directly with them, hada [...] for services as follows: HOME HEALTH AGENCY: [facility] PHONE: [phone] FAX: [phone] RN orders: Cardiopulmonary assessment, incisional assessment, assess vital signs, assessment of rehab progress, medication management and effectiveness, home safety evaluation. PT ORDERS: Continue rehab for endurance, gait stability and strength with mobility and transfers. Home safety evaluation. Home exercise program if appropriate. Start of Care Date: 06/20/2020 SPECIAL INSTRUCTIONS: For any follow up questions, needs, or issues please call the Cardiac SurgeryOffice at [phone] FOR MEDICARE ONLY: (please delete this section [...] noted. Questions: Agency name and contact information: [facility] Patient location post discharge: home What services are requested: Registered Nurse Physical Therapy Occupational Therapy Start date: Responsible MD post discharge contact info: PCP Rodrick bryant [EQ134 Custom] As directed Process Instructions: Scheduling Instructions: Comments: Johnson Tobar [address] [facility] [address] (home) Diagnosis:s/p 05/3020 CABGx3 now with Unsteady gait Significant weakness, ataxia or gait abnormality Patient's: Hgt: 5'7 Wgt: 187 lb 13oz VENDOR: Piter Nuñez Located @ [facility] [place], [place] Ordering: Front wheel walker IF d/c on Sat/Sun will be Delivered from [facility] weekend closet in [place] to pt's hospital room #: 449 Otherwise delivery by [facility]. Questions: Vendor Name/Contact information: [facility] Arrangements for VNA/home care: As above. VN RN OR PCP TO PLEASE REMOVE CHEST TUBE SUTURES ON OR AFTER 06/23/2020 Signed: RASHEL RIOS [facility] Section of Cardiac Surgery [facility] [address] FAX [phone] Date: 06/19/2020 CC: MD Quinn Zhang Robert E, MD [address] [place] [phone] documented in this encounter Discharge Instructions * [...] Chun Stanton and/or the Cardiac Surgery Physician Cyber Security Manager Team may be reached at . ?? Antibiotic prophylaxis: You will need to take antibiotics prior to many invasive tests and treatments, such as dental cleaning, which should be done every 6 months. Your primary care physician or your dentist can prescribe this medication. Please refer to the card with the [place] Heart Association Guidelines for more information. You have been provided with a copy of this card. Please refer to the [place] Heart Association Guidelines for more information. Good [...] Dr. Chun Stanton. You may use a [place] Track or treadmill but avoid any pulling [...] friends, go to a movie, go to jainism, etc. ?? Heavy activities: No hunting, skiing, [...] should resume a low fat, low cholesterol, [place] Heart Association Diet. ?? Driving: No driving [...] office will schedule an appointment with your Ride Assembly Supervisor, Dr. Lackey, in 2 weeks. ?? You have a follow up appointment with your Cardiac Surgeon, Dr. Chun Stanton, July 21 at 1:00pm with a chest x-ray, EKG, and Echo before your appointment. ?? Cardiac Rehabilitation: Johnson Tobar??was seen today regarding participation in the outpatient Phase 2 Cardiac Rehabilitation at [facility]. The patient agrees to a [...] CARE DME Made Easy letter andcopy of [employer] Physician Order/Patient Agreement Form (pt signed). Maru Lane RN Case Dynamite Cartridge Crimper of Care Management [email or web address] Pager: [phone] * Margaux Jones RN - 06/19/2020 11:54 AM EST AVS and medications reviewed at bedside. DC'd and D-lined. Pt home in private car. * Shaylee Ceja RN - 06/18/2020 6:21 PM ESTSummary: DME walker choice Office of Care Management(OCM)/spa experience coordinator(RNCM)/Discharge Planning Weekend and Holidays Pager [phone] Service: Cardiac Surgery w/e pgr [phone] Referral [...] has choices, which vendors would bill his insurance(Daniela Ponce, [facility] butthat not all open on weekend, that stores such as [employer], [employer] etc would have but he wouldhave to pay out of pocket and submit to insurance. Advised would be able to dispense one from [facility] to him at his room before d/c. IF he needs he agrees with : [facility] Located @ [facility] [place], [place] Call Saturday Triage RNCM pgr [phone] for assist; and will add to their [...] Metformin not restarted yet. Met with clinical trial educator. Neuro: tylenol, oxy prn CV: Metop [...] on the weekends please page [phone]. * Kaye Hooper RN - 06/17/2020 12:26 [...] 0600 and on the weekends please page [phone]. * Katherine Flores RN - 06/16/2020 3:13 [...] 0600 and on the weekends please page [phone]. * Katherine Flores RN - 06/15/2020 3:42 [...] Ale Caballero - 06/15/2020 3:23 PM EST Coin Purse Framer Encounter Note Patient Name: Johnson Tobar : [id number] MR#: [id number] Admit Date: 06/13/2020 5:56 AM Hospital Day [...] 0600 and on the weekends please page [phone]. * Mihaela Johnson RN - 06/14/2020 4:57 PM EST Johnson Tobar arrived to 449A @ 1640 from [facility]. Oriented to room, call blanco [...] [69 bpm-118 bpm] Drips: Nitroglycerin 40mcg/min 06/13 0701 - 06/14 0700 In: 6436.7 [...] attending surgeon on rounds this morning. Chin Peters Read 06/14/2020 Between the hours of 1800 - 0600 and on the weekends please page [phone]. * Kris Mayen PA - 06/14/2020 11:02 [...] WWP, no edema Incisions: Dressing CDI Tubes/Lines/Drains: aileen ledesma, ct x 3, nayana paz Assessment/Plan: 69 [...] 0600 and on the weekends please page [phone]. * Ramon Lucero RCP - 06/13/2020 4:47 PM EST Patient extubated to fl per order. Pt tolerating well. No distress [...] plan since last visit. Chun Stanton MD [phone] Source Note - Chun Stanton MD - [...] He has treated hypertension, he is a hfj-guzlzfo-bqyhlzzzo diabetic. He has known dyslipidemia. He has had no known previous CVA or TIA. He has no known hepatic dysfunction he does have mild renal insufficiency with a baseline creatinine of about 1.3. He was not a user of tobacco. He is undergone prior appendectomy. He does have a family history of atherosclerotic disease in that his father following an OR at 48 years of age. He has worked his entire life [employer]. His cardiac cath shows severe CAD ?? [...] given written informed consent. Chun Stanton MD [phone] * Chun Stanton MD - 06/13/2020 6:57 [...] He has treated hypertension, he is a cjm-fqlagjq-nyuowvbcp diabetic. He has known dyslipidemia. He has had no known previous CVA or TIA. He has no known hepatic dysfunction he does have mild renal insufficiency with a baseline creatinine of about 1.3. He was not a user of tobacco. He is undergone prior appendectomy. He does have a family history of atherosclerotic disease in that his father following an OR at 48 years of age. He has worked his entire life [employer]. His cardiac cath shows severe CAD ?? [...] given written informed consent. Chun Stanton MD [phone] documented in this encounter Nursing Notes * [...] Stanton MD - 06/19/2020 12:00 PM EST [facility] Operative Note Patient Name: Johnson Tobar : [id number] MR#: [id number] Case Date: 06/13/2020 Surgeon: Surgeon(s) and Role: * Chun Stanton MD - Primary * Kris Mayen PA - Physician Cyber Security Manager ?? Preoperative diagnosis: , CAD ?? 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 ??Enjoys TV and sports- likes [employer] and Anywhere[employer]FM[employer]. ?? Equipment at home:??none Fall history:??none. 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 Enjoys TV and sports- likes [employer] and [employer]. Equipment at home: none Fall history: none. [...] end of session. Left on toilet with event staff member aware and monitoring. Objective: Patient seen for [...] and cues. Pt educated to practice with event staff member the next 24 hours with bed flat. [...] walker again next walk with patient and event staff member. ?? Stand to sit with supervision and [...] as above and to walk more with event staff member, practice bed mobility, and to call for clinical staff educator assistance with all mobility. Assessment: Johnson Tobar [...] the bathroom 2x during session today, and event staff member aware. He plans to return home with [...] Physical Therapy: 46(functional mobility) BRENNAN WATTS, PT Pager:[phone] Physical Therapy Inpatient Rehabilitation Department * Consult Note - Jody Reed RN - 06/16/2020 11:32 AM EST [facility] CARDIAC REHABILITATION Johnson Tobar was seen today regarding participation in the outpatient Phase 2 Cardiac Rehabilitation at [facility]. 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 Enjoys TV and sports- likes [employer] and [employer]. Equipment at home: none Fall history: none. [...] as above and to walk more with event staff member and to call for clinical staff educator assistance with all mobility. 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 Diabetes History: Johnson Tobar has had diabetes for about 5 years. He states it is pre diabetes but takes 2 oral agents. He reports he gets diarrhea daily from metformin. 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 He had to ask for help in the [employer] underwood this year due to [place]. He [...] ??? insulin regular human 3 Units/hr (06/15/20 0388) PRN: glucose 40% oral geL OR dextrose [...] home while healing if necessary. Will askKaye BAILEY CDE to see him for advanced insulin [...] Glipizide XR 5 mg before breakfast tomorrow intermediate frame tender diabetes care: Medications - Outpatient treatment regimen recommendations pending based on the hospital course. Monitoring - continue BG tid ac & hs Diet - low fat/low carb diet Exercise - weight-bearing exercise 30 min/day, as tolerated Thank you for allowing us to provide care for your patient Zenia Lanza APRN Endocrinology Pager [phone] 70 minutes of this 80 minute visit [...] 33.75) performed by Chun Stanton MD at [facility] MAIN OR ??? PRO CABG, ARTERY-VEIN, TWO N/A 06/13/2020 @CABG, TWO VENOUS GRAFTS & ARTERIAL GRAFT (WRVU 7.93) performed by Chun Stanton MD at [facility] MAIN OR ??? PRO ENDOSCOPY W/VIDEO-ASST VEIN HARVEST, CABG Right 06/13/2020 ENDOSCOPIC HARVEST VEIN(S) FOR CABG (WRVU 0.31) performed by Chun Stanton MD at [facility] MAIN OR ??? 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 Enjoys TV and [...] Physical Therapy: 50 BRENNAN WATTS, PT Pager: [phone] Physical Therapy Inpatient Rehabilitation Department * Initial [...] -Emili would be surrogate decision maker per [place] surrogate decision making law. Any patient receiving care at [facility] must abide by [place] law. The hierarchy for surrogate decision making [...] (i) The agent with financial power of tax attorney or a conservator appointed in accordance [...] Information: none noted Health/Prescription Coverage: Primary Insurance: [facility] MANAGED MEDICARE Secondary Insurance: N/A Prescription Coverage: yes Preferred Pharmacy: [facility] in [place] Other: nonenoted Primary Care Provider: Ramiro Ball MD [phone] Patient/Caregiver Goals of Treatment: dc to home Potential Needs for Transition of Care: Rehab/SNF: no Home Health: [facility] DME: no Dialysis: no Community Resources: home health Transportation: family/spouse Other: none I reviewed a list of Home Health Agencies/DME vendors with patient which serve the preferred geographic area. If patient chooses one of our affiliates, I will provide our affiliate letter. Education was provided about the right to choose where referrals are placed. Patient [facility] referral to: [facility] PHONE: [phone] FAX: [phone] Expected date of discharge: ?. Referral routed to the Installation Tech for matching with agency/vendor and to provide any required information. Anticipated Barriers to Discharge/Special Considerations: no barriers to DC that are identified at this time Assessment: per MDs note:69-year-old male with known aortic stenosis.He has known atherosclerotic coronary disease having undergone PCI with stent placement of an LAD lesion in the past. ??He has treated hypertension, he is a rez-gosvcfp-cjacodkan diabetic. ??He has known dyslipidemia. ??He has had no known previous CVA or TIA. ??He has no known hepatic dysfunction he does have mild renal insufficiency with a baseline creatinine of about 1.3. ??He was not a user of tobacco. ??He is undergone prior appendectomy. ??He does have a family history of atherosclerotic disease in that his father following an OR at 48 years of age. ??He has [...] ??Plan: anticipate to DC to home with [facility] A member of the Care Management team will continue to monitor progress, follow for continuity of care and assist with transition of care planning. Makenzie Navarrete RN Pager:[phone] Ext :[phone] * Brief Op Note - Chun Stanton MD - 06/13/2020 1:26 PM EST Brief Operative Note Patient Name: Johnson Tobar : [id number] MR#: [id number] Case Date: 06/13/2020 Surgeon: Surgeon(s) and Role: * Chun Stanton MD - Primary * Kris Mayen PA - Physician Cyber Security Manager Preoperative diagnosis: , CAD Postoperative diagnosis: , [...] 2:30 PM EST [place] [address] Susanna Cm APRN [facility] [place] [address] Scheduled Referrals Name Type Priority Associated Diagnoses [...] 0 8:19 AM EST Endoscopy W/Video-Asst Vein [place], Cabg ([id number]) 06/13/2020 7:26 AM EST , CAD Cabg, Artery-Vein, Two (88160) 06/13/2020 7:26 AM EST , CAD Cabg, Arterial, Single (14895) 06/13/2020 7:26 AM EST , CAD Replacement Prosthetic Aortic Valve Open W Cardiopulmonary Bypass Homogrf/Stent ([id number]) 06/13/2020 7:26 AM EST , CAD PREPARE [...] (Bezet) 432 ms MUSE SYSTEM Calculated P [place] 20 degrees MUSE SYSTEM Calculated R [place] -17 degrees MUSE SYSTEM Calculated T [place] -34 degrees MUSE SYSTEM INTERPRETATION Normal sinus rhythm Possible Left atrial enlargement Left ventricular hypertrophy Inferior infarct (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-2020) T wave abnormality, consider lateral ischemia Abnormal ECG When compared with ECG of 13-JUN-2020 14:20, ST no longer elevated in Anterior leads T wave inversion now evident in Anterolateral leads Confirmed by MD Mclain Daniel ([id number]) on 07/21/2020 6:32:41 PM MUSE SYSTEM 07/21/2020 [...] contact the number below. Electronically signed by: Deja Haley MD, [facility]([phone]), at 07/21/2020 12:18 PM Chun Stanton MD IMG DX ORDERABLES * ECHO COMPLETE (07/21/2020 11:20 AM EST) EF 53 HEARTLAB SYSTEM Anatomical Region Laterality Modality Other 07/21/2020 Narrative 07/21/2020 12:14 PM EST Procedure: ?Transthoracic Echocardiogram Patient: ?ELMER JOHNSON R ? (Age): 1950(69y) Med Rec#: ? [id number] ?Sex: ?M ? Site Loc: ? [facility] ?Ht / Wt: ??170(cm)/84(kg) Pt. Loc: ?Echo Lab ?BSA: ?1.96 Study Date: ?? 07/21/2020 ?Pt. Type: Outpatient Tape: ? Referring: BARRON Reading: John Andrade ([id number]) Major League Baseball Player: Meaghan Cosby RDCS, ISA Diagnosis: *Presence of [...] Vmax ?1.11 ? m/sec ? MV deceleration bpsu685.7 ?msec ? MV A-wave Vmax ?1.57 ? [...] ? Mid-Inferior ?Normal ? Mid-Inferoseptal ?Normal ? [place]-Septal ? Normal ? [place]-Anterior ? Normal ? [place]-Lateral ?Normal ? [place]-Inferior ? Normal ? [place]-Tip ?Normal ? This report has been electronically signed by: John Andrade MD ? 07/21/2020 12:13:35 Images reviewed and interpretation verified [facility] Cardiac Ultrasound Laboratory Procedure Note John Andrade MD - 07/21/2020 Procedure: Transthoracic Echocardiogram Patient: ELMER López DOB(Age): 1950(69y) Med Rec#: [id number] Sex: M [place] Loc: [facility] Ht / Wt: 170(cm)/84(kg) Pt. Loc: Echo Lab BSA: 1.96 Study Date: 07/21/2020 Pt. Type: Outpatient Tape: Referring: QAMARKENJISUSANSAMINAVladimir Reading: John Andrade ([id number]) Major League Baseball Player: Meaghan Cosby RDCS, FASE Diagnosis: *Presence of [...] MV E-wave Vmax 1.11 m/sec MV deceleration rhbx233.7 msec MV A-wave Vmax 1.57 m/sec MV [...] Normal Mid-Posterolateral Normal Mid-Inferior Normal Mid-Inferoseptal Normal [place]-Septal Normal [place]-Anterior Normal [place]-Lateral Normal [place]-Inferior Normal [place]-Tip Normal This report has been electronically signed by: John Andrade MD 07/21/2020 12:13:35 Images reviewed and interpretation verified [facility] Cardiac Ultrasound Laboratory Chun Stanton MD ECHO ORDERABLES * POCT Glucose (06/19/2020 7:43 AM EST) Glucose, POC 155 65 - 199 mg/dL [facility] Comment: Supplemental ranges: <140 mg/dL before meals <180 mg/dL all other times of the day Blood specimen (specimen) 06/19/2020 7:43 AM EST 06/19/2020 7:43 AM EST Chun Stanton MD POINT OF CARE TEST ORDERABLES [facility] [place] [place] [address] * POCT Glucose (06/19/2020 4:43 AM EST) Glucose, POC 147 65 - 199 mg/dL [facility] Comment: Supplemental ranges: <140 mg/dL before meals <180 mg/dL all other times of the day Blood specimen (specimen) 06/19/2020 4:43 AM EST 06/19/2020 4:43 AM EST Chun Stanton MD POINT OF CARE TEST ORDERABLES Performing Organization Address [facility] de Phone Number [facility] [place] [place] [address] * Potassium (06/19/2020 3:40 AM EST) [facility] Potassium 3.9 3.5 - 5.0 mmol/L [facility] Comment: Please note: ??Patients [...] MD CHEMISTRY ORDERABLE S Performing Organization Address [facility] de Phone Number [facility] [place] [place] [address] * POCT Glucose (06/18/2020 11:28 PM EST) Glucose, POC 167 65 - 199 mg/dL [facility] Comment: Supplemental ranges: <140 mg/dL before meals <180 mg/dL all other times of the day Blood specimen (specimen) 06/18/2020 11:28 PM EST 06/18/2020 11:28 PM EST Chun Stanton MD POINT OF CARE TEST ORDERABLES Performing Organization Address [facility]/ZIP Co de Phone Number [facility] [place] [place] [address] * POCT Glucose (06/18/2020 8:22 PM EST) Glucose, POC 181 65 - 199 mg/dL [facility] Comment: Supplemental ranges: <140 mg/dL before meals <180 mg/dL all other times of the day Blood specimen (specimen) 06/18/2020 8:22 PM EST 06/18/2020 8:22 PM EST Chun Stanton MD POINT OF CARE TEST ORDERABLES Performing Organization Address [facility] Co de Phone Number [facility] [place] [place] [address] * POCT Glucose (06/18/2020 3:14 PM EST) Glucose, POC 145 65 - 199 mg/dL [facility] Comment: Supplemental ranges: <140 mg/dL before meals <180 mg/dL all other times of the day Blood specimen (specimen) 06/18/2020 3:14 PM EST 06/18/2020 3:14 PM EST Chun Stanton MD POINT OF CARE TEST ORDERABLES Performing Organization Address City/[facility] Co de Phone Number [facility] [place] [place] [address] * (ABNORMAL) POCT Glucose (06/18/2020 11:58 AM EST) Glucose, POC 220(H) 65 - 199 mg/dL [facility] Comment: Supplemental ranges: <140 mg/dL before meals <180 mg/dL all other times of the day Blood specimen (specimen) 06/18/2020 11:58 AM EST 06/18/2020 11:58 AM EST Chun Stanton MD POINT OF CARE TEST ORDERABLES Performing Organization Address [facility] Co de Phone Number [facility] [place] [address] * (ABNORMAL) POCT Glucose (06/18/2020 11:50 AM EST) Glucose, POC 245(H) 65 - 199 mg/dL [facility] Comment: Supplemental ranges: <140 mg/dL before meals <180 mg/dL all other times of the day Blood specimen (specimen) 06/18/2020 11:50 AM EST 06/18/2020 11:50 AM EST Chun Stanton MD POINT OF CARE TEST ORDERABLES Performing Organization Address [facility] Co de Phone Number [facility] [place] [place] [address] * POCT Glucose (06/18/2020 7:51 AM EST) Glucose, POC 185 65 - 199 mg/dL [facility] Comment: Supplemental ranges: <140 mg/dL before meals <180 mg/dL all other times of the day Blood specimen (specimen) 06/18/2020 7:51 AM EST 06/18/2020 7:51 AM EST Chun Stanton MD POINT OF CARE TEST ORDERABLES Performing Organization Address City/[facility] Co de Phone Number [facility] [place] [place] [address] * Potassium (06/18/2020 5:28 AM EST) Potassium 3.7 3.5 - 5.0 mmol/L [facility] Comment: Please note: ??Patients [...] MD CHEMISTRY ORDERABLE S Performing Organization Address [facility] de Phone Number [facility] [place] [place] [address] * POCT Glucose (06/18/2020 5:02 AM EST) Glucose, POC 176 65 - 199 mg/dL [facility] Comment: Supplemental ranges: <140 mg/dL before meals <180 mg/dL all other times of the day Blood specimen (specimen) 06/18/2020 5:02 AM EST 06/18/2020 5:02 AM EST Chun Stanton MD POINT OF CARE TEST ORDERABLES Performing Organization Address [facility] Phone Number [facility] [place] [address] * POCT Glucose (06/18/2020 4:03 AM EST) Glucose, POC 157 65 - 199 mg/dL [facility] Comment: Supplemental ranges: <140 mg/dL before meals <180 mg/dL all other times of the day Blood specimen (specimen) 06/18/2020 4:03 AM EST 06/18/2020 4:03 AM EST Chun Stanton MD POINT OF CARE TEST ORDERABLES Performing Organization Address [facility] de Phone Number [facility] [place] [place] [address] * (ABNORMAL) POCT Glucose (06/17/2020 11:15 PM EST) Glucose, POC 209(H) 65 - 199 mg/dL [facility] Comment: Supplemental ranges: <140 mg/dL before meals <180 mg/dL all other times of the day Blood specimen (specimen) 06/17/2020 11:15 PM EST 06/17/2020 11:15 PM EST Chun Stanton MD POINT OF CARE TEST ORDERABLES Performing Organization Address City/[facility]/ZIP Co de Phone Number [facility] [place] [place] [address] * POCT Glucose (06/17/2020 8:38 PM EST) Glucose, POC 182 65 - 199 mg/dL [facility] Comment: Supplemental ranges: <140 mg/dL before meals <180 mg/dL all other times of the day Blood specimen (specimen) 06/17/2020 8:38 PM EST 06/17/2020 8:38 PM EST Chun Stanton MD POINT OF CARE TEST ORDERABLES Performing Organization Address [facility] Co de Phone Number [facility] [place] [place] [address] * POCT Glucose (06/17/2020 4:27 PM EST) Glucose, POC 147 65 - 199 mg/dL [facility] Comment: Supplemental ranges: <140 mg/dL before meals <180 mg/dL all other times of the day Blood specimen (specimen) 06/17/2020 4:27 PM EST 06/17/2020 4:27 PM EST Chun Stanton MD POINT OF CARE TEST ORDERABLES Performing Organization Address City/[facility]/ZIP Co de Phone Number [facility] [place] [place] [address] * POCT Glucose (06/17/2020 2:08 PM EST) Glucose, POC 162 65 - 199 mg/dL [facility] Comment: Supplemental ranges: <140 mg/dL before meals <180 mg/dL all other times of the day Blood specimen (specimen) 06/17/2020 2:08 PM EST 06/17/2020 2:08 PM EST Chun Stanton MD POINT OF CARE TEST ORDERABLES [facility] [place] [place] [address] * (ABNORMAL) POCT Glucose (06/17/2020 11:27 AM EST) Glucose, POC 315(H) 65 - 199 mg/dL [facility] Comment: Supplemental ranges: <140 mg/dL before meals <180 mg/dL all other times of the day Blood specimen (specimen) 06/17/2020 11:27 AM EST 06/17/2020 11:27 AM EST Chun Stanton MD POINT OF CARE TEST ORDERABLES Performing Organization Address City/[facility]/ZIP Co de Phone Number [facility] [place] [address] * POCT Glucose (06/17/2020 7:46 AM EST) Glucose, POC 169 65 - 199 mg/dL [facility] Comment: Supplemental ranges: <140 mg/dL before meals <180 mg/dL all other times of the day Blood specimen (specimen) 06/17/2020 7:46 AM EST 06/17/2020 7:46 AM EST Chun Stanton MD POINT OF CARE TEST ORDERABLES Performing Organization Address City/[facility] Co de Phone Number [facility] [place] [address] * POCT Glucose (06/17/2020 4:41 AM EST) Glucose, POC 172 65 - 199 mg/dL [facility] Comment: Supplemental ranges: <140 mg/dL before meals <180 mg/dL all other times of the day Blood specimen (specimen) 06/17/2020 4:41 AM EST 06/17/2020 4:41 AM EST Chun Stanton MD POINT OF CARE TEST ORDERABLES [facility] [place] [place] [address] * Potassium (06/17/2020 4:36 AM EST) Potassium 3.9 3.5 - 5.0 mmol/L [facility] Comment: Please note: ??Patients [...] MD CHEMISTRY ORDERABLE S Performing Organization Address [facility] Co de Phone Number [facility] [place] [address] * POCT Glucose (06/16/2020 11:33 PM EST) Glucose, POC 157 65 - 199 mg/dL [facility] Comment: Supplemental ranges: <140 mg/dL before meals <180 mg/dL all other times of the day Blood specimen (specimen) 06/16/2020 11:33 PM EST 06/16/2020 11:33 PM EST Chun Stanton MD POINT OF CARE TEST ORDERABLES Performing Organization Address [facility]/ZIP Co de Phone Number [facility] [place] [place] [address] * POCT Glucose (06/16/2020 7:59 PM EST) Glucose, POC 198 65 - 199 mg/dL [facility] Comment: Supplemental ranges: <140 mg/dL before meals <180 mg/dL all other times of the day Blood specimen (specimen) 06/16/2020 7:59 PM EST 06/16/2020 7:59 PM EST Chun Stanton MD POINT OF CARE TEST ORDERABLES Performing Organization Address [facility] Co de Phone Number [facility] [place] [address] * (ABNORMAL) POCT Glucose (06/16/2020 4:07 PM EST) Glucose, POC 211(H) 65 - 199 mg/dL [facility] Comment: Supplemental ranges: <140 mg/dL before meals <180 mg/dL all other times of the day Blood specimen (specimen) 06/16/2020 4:07 PM EST 06/16/2020 4:07 PM EST Chun Stanton MD POINT OF CARE TEST ORDERABLES Performing Organization Address [facility] Co de Phone Number [facility] [place] [place] [address] * (ABNORMAL) POCT Glucose (06/16/2020 11:51 AM EST) Glucose, POC 224(H) 65 - 199 mg/dL [facility] Comment: Supplemental ranges: <140 mg/dL before meals <180 mg/dL all other times of the day Blood specimen (specimen) 06/16/2020 11:51 AM EST 06/16/2020 11:51 AM EST Chun Stanton MD POINT OF CARE TEST ORDERABLES Performing Organization Address [facility] Co de Phone Number [facility] [place] [address] * (ABNORMAL) POCT Glucose (06/16/2020 9:33 AM EST) Glucose, POC 252(H) 65 - 199 mg/dL [facility] Comment: Supplemental ranges: <140 mg/dL before meals <180 mg/dL all other times of the day Blood specimen (specimen) 06/16/2020 9:33 AM EST 06/16/2020 9:33 AM EST Chun Stanton MD POINT OF CARE TEST ORDERABLES [facility] [place] [address] * XR Chest PA & Lateral (Generic) [...] ? Electronically signed by: Jessi Isidro MD, [facility] ([phone]), at 06/16/2020 10:45 AM Narrative 06/16/2020 10:45 [...] contact the number below. Electronically signed by: eJssi Isidro MD, [facility] ([phone]), at 06/16/2020 10:45 AM Chun Stanton MD IMG DX ORDERABLES * POCT Glucose (06/16/2020 8:24 AM EST) Glucose, POC 193 65 - 199 mg/dL [facility] Comment: Supplemental ranges: <140 mg/dL before meals <180 mg/dL all other times of the day Blood specimen (specimen) 06/16/2020 8:24 AM EST 06/16/2020 8:24 AM EST Chun Stanton MD POINT OF CARE TEST ORDERABLES [facility] [place] [address] * POCT Glucose (06/16/2020 6:32 AM EST) Glucose, POC 169 65 - 199 mg/dL [facility] Comment: Supplemental ranges: <140 mg/dL before meals <180 mg/dL all other times of the day Blood specimen (specimen) 06/16/2020 6:32 AM EST 06/16/2020 6:32 AM EST Chun Stanton MD POINT OF CARE TEST ORDERABLES [facility] [place] [place] [address] * POCT Glucose (06/16/2020 5:36 AM EST) Pathologist [facility] Glucose, POC 175 65 - 199 mg/dL [facility] Comment: Supplemental ranges: <140 mg/dL before meals <180 mg/dL all other times of the day Blood specimen (specimen) 06/16/2020 5:36 AM EST 06/16/2020 5:36 AM EST Chun Stanton MD POINT OF CARE TEST ORDERABLES Performing Organization Address [facility] Co de Phone Number [facility] [place] [place] [address] * (ABNORMAL) Differential, Automated (06/16/2020 4:54 AM EST) [facility] Neutrophil % 76.4 % [facility] Neutrophil Absolute 9.41(H) 1.70 - 6.10 x10(3)/mc L [facility] Lymph % 12.4 % [facility] Lymphocytes Abs 1.5 0.9 - 3.2 x10(3)/mc L [facility] Monocyte % 9.8 % [facility] Monocyte Abs 1.2(H) 0.3 - 0.9 x10(3)/mc L [facility] Eos % 0.6 % [facility] Eosinophils Abs 0.1 0.0 - 0.4 x10(3)/mc L [facility] Basophil % 0.3 % [facility] Baso Absolute 0.0 0.0 - 0.1 x10(3)/mc L [facility] Immature Gran % 0.50 % [facility] Comment: Immature granulocytes(IG's)percentage and absolute count will include metamyelocytes, myelocytes, and promyelocytes. Blood smears from CBCs yielding IG's will be scanned manually for concordance. If this scan disagrees with the automated IG or if promyelocytes are noted, a manual differential will be performed. Immature Gran Absolute 0.06(H) 0.00 - 0.04 x10(3)/mc L [facility] Blood specimen (specimen) 06/16/2020 4:54 AM EST 06/16/2020 5:33 AM EST Narrative Resulting Agency Comment Spec In Lab Kris KISER HEMATOLOGY ORDERABLE S [facility] [place] [address] * (ABNORMAL) Hemogram (06/16/2020 4:54 AM EST) White Blood Cell 12.3(H) 4.0 - 9.5 x10(3)/mc L [facility] Red Blood Cell 3.15(L) 4.58 - 5.54 x10(6)/mc L [facility] Hemoglobin 9.0(L) 13.7 - 16.5 gm/dL [facility] Hematocrit 27.6(L) 40.5 - 48.5 % [facility] Mean Cell Volume 87.6 82.9 - 93.1 fL [facility] Mean Cell Hemoglobin 28.6 27.5 - 32.1 pg [facility] Mean Cell Hemoglobin Concentration 32.6 32.0 - 35.7 gm/dL [facility] Platelet 112(L) 145 - 357 x10(3)/mc L [facility] RDW Standard Deviation 45.2(H) 36.0 - 45.0 fL [facility] RDW coefficient of variation 14.3(H) 11.4 - 13.8 % [facility] Mean Platelet Volume 12.3 7.6 - 12.9 fL [facility] NRBC% auto 0.0 % [facility] NRBC Absolute 0.000 0.000 - 0.000 x10(3)/mc L [facility] Blood specimen (specimen) 06/16/2020 4:54 AM EST 06/16/2020 5:33 AM EST Narrative Resulting Agency Comment Spec In Lab Kris KISER HEMATOLOGY ORDERABLE S [facility] [place] [address] * (ABNORMAL) Basic Metabolic Panel (non-fasting) (06/16/2020 4:54 AM EST) Glucose 163 65 - 199 mg/dL [facility] Comment:Diabetes: >=200 mg/d L plus symptoms Blood Urea Nitrogen 19 10 - 20 mg/dL [facility] Creatinine 1.06 0.80 - 1.50 mg/dL [facility] Sodium 133(L) 135 - 145 mmol/L [facility] Potassium 4.6 3.5 - 5.0 mmol/L [facility] Comment: Please note: ??Patients with WBC >100,000 may have falsely elevated Potassium levels. ??For accurate Potassium quantification in these patients send serum separator tube (gold top) for subsequent determinations. ??Contact the Clinical Chemistry Laboratory if there are any questions. Chloride 101 98 - 107 mmol/L [facility] Carbon Dioxide 24 22 - 31 mmol/L [facility] Anion Gap 8 5 - 15 mmol/L [facility] Calcium 8.5 8.5 - 10.5 mg/dL [facility] Est Glomerular Filtration Rate 71 >=60 mL/min/1. 73 m?? [facility] Comment: This patient? s [...] Lab Chun Stanton MD CHEMISTRY ORDERABLE S [facility] [place] [address] * POCT Glucose (06/16/2020 4:38 AM EST) Glucose, POC 154 65 - 199 mg/dL [facility] Comment: Supplemental ranges: <140 mg/dL before meals <180 mg/dL all other times of the day Blood specimen (specimen) 06/16/2020 4:38 AM EST 06/16/2020 4:38 AM EST Chun Stanton MD POINT OF CARE TEST ORDERABLES Performing Organization Address [facility]/ZIP Co de Phone Number [facility] [place] [address] * POCT Glucose (06/16/2020 3:31 AM EST) Glucose, POC 178 65 - 199 mg/dL [facility] Comment: Supplemental ranges: <140 mg/dL before meals <180 mg/dL all other times of the day Blood specimen (specimen) 06/16/2020 3:31 AM EST 06/16/2020 3:31 AM EST Chun Stanton MD POINT OF CARE TEST ORDERABLES [facility] [place] [place] [address] * POCT Glucose (06/16/2020 2:42 AM EST) Glucose, POC 182 65 - 199 mg/dL [facility] Comment: Supplemental ranges: <140 mg/dL before meals <180 mg/dL all other times of the day Blood specimen (specimen) 06/16/2020 2:42 AM EST 06/16/2020 2:42 AM EST Chun Stanton MD POINT OF CARE TEST ORDERABLES [facility] [place] [address] * POCT Glucose (06/16/2020 1:28 AM EST) Glucose, POC 198 65 - 199 mg/dL [facility] Comment: Supplemental ranges: <140 mg/dL before meals <180 mg/dL all other times of the day Blood specimen (specimen) 06/16/2020 1:28 AM EST 06/16/2020 1:28 AM EST Chun Stanton MD POINT OF CARE TEST ORDERABLES Performing Organization Address City/[facility]/ZIP Co de Phone Number [facility] [place] [place] [address] * POCT Glucose (06/15/2020 11:41 PM EST) Glucose, POC 133 65 - 199 mg/dL [facility] Comment: Supplemental ranges: <140 mg/dL before meals <180 mg/dL all other times of the day Blood specimen (specimen) 06/15/2020 11:41 PM EST 06/15/2020 11:41 PM EST Chun Stanton MD POINT OF CARE TEST ORDERABLES [facility] [place] [address] * POCT Glucose (06/15/2020 10:28 PM EST) Glucose, POC 141 65 - 199 mg/dL [facility] Comment: Supplemental ranges: <140 mg/dL before meals <180 mg/dL all other times of the day Blood specimen (specimen) 06/15/2020 10:28 PM EST 06/15/2020 10:28 PM EST Chun Stanton MD POINT OF CARE TEST ORDERABLES Performing Organization Address City/[facility]/ZIP Co de Phone Number [facility] [place] [address] * POCT Glucose (06/15/2020 9:34 PM EST) Glucose, POC 140 65 - 199 mg/dL [facility] Comment: Supplemental ranges: <140 mg/dL before meals <180 mg/dL all other times of the day Blood specimen (specimen) 06/15/2020 9:34 PM EST 06/15/2020 9:34 PM EST Chun Stanton MD POINT OF CARE TEST ORDERABLES Performing Organization Address City/[facility]/ZIP Co de Phone Number [facility] [place] [address] * POCT Glucose (06/15/2020 8:44 PM EST) Glucose, POC 120 65 - 199 mg/dL [facility] Comment: Supplemental ranges: <140 mg/dL before meals <180 mg/dL all other times of the day Blood specimen (specimen) 06/15/2020 8:44 PM EST 06/15/2020 8:44 PM EST Chun Stanton MD POINT OF CARE TEST ORDERABLES Performing Organization Address City/[facility]/ZIP Co de Phone Number [facility] [address] * POCT Glucose (06/15/2020 7:17 PM EST) Glucose, POC 115 65 - 199 mg/dL [facility] Comment: Supplemental ranges: <140 mg/dL before meals <180 mg/dL all other times of the day Blood specimen (specimen) 06/15/2020 7:17 PM EST 06/15/2020 7:17 PM EST Chun Stanton MD POINT OF CARE TEST ORDERABLES Performing Organization Address City/[facility]/ZIP Co de Phone Number [facility] [place] [address] * POCT Glucose (06/15/2020 6:22 PM EST) Glucose, POC 107 65 - 199 mg/dL [facility] Comment: Supplemental ranges: <140 mg/dL before meals <180 mg/dL all other times of the day Blood specimen (specimen) 06/15/2020 6:22 PM EST 06/15/2020 6:22 PM EST Chun Stanton MD POINT OF CARE TEST ORDERABLES Performing Organization Address [facility] Co de Phone Number [facility] [place] [address] * POCT Glucose (06/15/2020 5:05 PM EST) Glucose, POC 90 65 - 199 mg/dL [facility] Comment: Supplemental ranges: <140 mg/dL before meals <180 mg/dL all other times of the day Blood specimen (specimen) 06/15/2020 5:05 PM EST 06/15/2020 5:05 PM EST Chun Stanton MD POINT OF CARE TEST ORDERABLES Performing Organization Address City/[facility] Co de Phone Number [facility] [address] * POCT Glucose (06/15/2020 3:48 PM EST) Glucose, POC 109 65 - 199 mg/dL [facility] Comment: Supplemental ranges: <140 mg/dL before meals <180 mg/dL all other times of the day Blood specimen (specimen) 06/15/2020 3:48 PM EST 06/15/2020 3:48 PM EST Chun Stanton MD POINT OF CARE TEST ORDERABLES Performing Organization Address [facility] Co de Phone Number [facility] [address] * (ABNORMAL) POCT Glucose (06/15/2020 2:00 PM EST) Glucose, POC 222(H) 65 - 199 mg/dL [facility] Comment: Supplemental ranges: <140 mg/dL before meals <180 mg/dL all other times of the day Blood specimen (specimen) 06/15/2020 2:00 PM EST 06/15/2020 2:00 PM EST Chun Stanton MD POINT OF CARE TEST ORDERABLES Performing Organization Address [facility] Co de Phone Number [facility] [place] [address] * (ABNORMAL) POCT Glucose (06/15/2020 1:02 PM EST) Glucose, POC 223(H) 65 - 199 mg/dL [facility] Comment: Supplemental ranges: <140 mg/dL before meals <180 mg/dL all other times of the day Blood specimen (specimen) 06/15/2020 1:02 PM EST 06/15/2020 1:02 PM EST Chun Stanton MD POINT OF CARE TEST ORDERABLES Performing Organization Address [facility] Co de Phone Number [facility] [facility] [place] [address] * POCT Glucose (06/15/2020 11:51 AM EST) Glucose, POC 191 65 - 199 mg/dL [facility] Comment: Supplemental ranges: <140 mg/dL before meals <180 mg/dL all other times of the day Blood specimen (specimen) 06/15/2020 11:51 AM EST 06/15/2020 11:51 AM EST Chun Stanton MD POINT OF CARE TEST ORDERABLES Performing Organization Address [facility] Co de Phone Number [facility] [place] [address] * (ABNORMAL) POCT Glucose (06/15/2020 10:45 AM EST) Glucose, POC 221(H) 65 - 199 mg/dL [facility] Comment: Supplemental ranges: <140 mg/dL before meals <180 mg/dL all other times of the day Blood specimen (specimen) 06/15/2020 10:45 AM EST 06/15/2020 10:45 AM EST Chun Stanton MD POINT OF CARE TEST ORDERABLES Performing Organization Address [facility] Co de Phone Number [facility] [place] [address] * (ABNORMAL) POCT Glucose (06/15/2020 9:44 AM EST) Glucose, POC 249(H) 65 - 199 mg/dL [facility] Comment: Supplemental ranges: <140 mg/dL before meals <180 mg/dL all other times of the day Blood specimen (specimen) 06/15/2020 9:44 AM EST 06/15/2020 9:44 AM EST Chun Stanton MD POINT OF CARE TEST ORDERABLES Performing Organization Address City/[facility] Co de Phone Number [facility] [place] [address] * (ABNORMAL) POCT Glucose (06/15/2020 8:49 AM EST) Glucose, POC 246(H) 65 - 199 mg/dL [facility] Comment: Supplemental ranges: <140 mg/dL before meals <180 mg/dL all other times of the day Blood specimen (specimen) 06/15/2020 8:49 AM EST 06/15/2020 8:49 AM EST Chun Stanton MD POINT OF CARE TEST ORDERABLES Performing Organization Address [facility] de Phone Number [facility] [place] [address] * POCT Glucose (06/15/2020 7:35 AM EST) Glucose, POC 189 65 - 199 mg/dL [facility] Comment: Supplemental ranges: <140 mg/dL before meals <180 mg/dL all other times of the day Blood specimen (specimen) 06/15/2020 7:35 AM EST 06/15/2020 7:35 AM EST Chun Stanton MD POINT OF CARE TEST ORDERABLES Performing Organization Address [facility] Phone Number [facility] [place] [address] * POCT Glucose (06/15/2020 6:31 AM EST) Glucose, POC 165 65 - 199 mg/dL [facility] Comment: Supplemental ranges: <140 mg/dL before meals <180 mg/dL all other times of the day Blood specimen (specimen) 06/15/2020 6:31 AM EST 06/15/2020 6:31 AM EST Chun Stanton MD POINT OF CARE TEST ORDERABLES Performing Organization Address [facility] Phone Number [facility] [place] [address] * Potassium (06/15/2020 5:37 AM EST) Potassium 4.7 3.5 - 5.0 mmol/L [facility] Comment: Please note: ??Patients [...] MD CHEMISTRY ORDERABLE S Performing Organization Address [facility] Co de Phone Number [facility] [place] [place] [address] * POCT Glucose (06/15/2020 5:36 AM EST) Glucose, POC 170 65 - 199 mg/dL [facility] Comment: Supplemental ranges: <140 mg/dL before meals <180 mg/dL all other times of the day Blood specimen (specimen) 06/15/2020 5:36 AM EST 06/15/2020 5:36 AM EST Chun Stanton MD POINT OF CARE TEST ORDERABLES Performing Organization Address [facility] de Phone Number [facility] [place] [address] * POCT Glucose (06/15/2020 4:38 AM EST) Glucose, POC 162 65 - 199 mg/dL [facility] Comment: Supplemental ranges: <140 mg/dL before meals <180 mg/dL all other times of the day Blood specimen (specimen) 06/15/2020 4:38 AM EST 06/15/2020 4:38 AM EST Chun Stanton MD POINT OF CARE TEST ORDERABLES Performing Organization Address [facility] Co de Phone Number [facility] [place] [place] [address] * POCT Glucose (06/15/2020 3:36 AM EST) Glucose, POC 173 65 - 199 mg/dL [facility] Comment: Supplemental ranges: <140 mg/dL before meals <180 mg/dL all other times of the day Blood specimen (specimen) 06/15/2020 3:36 AM EST 06/15/2020 3:36 AM EST Chun Stanton MD POINT OF CARE TEST ORDERABLES Performing Organization Address [facility] de Phone Number [facility] [place] [place] [address] * POCT Glucose (06/15/2020 2:26 AM EST) Glucose, POC 179 65 - 199 mg/dL [facility] Comment: Supplemental ranges: <140 mg/dL before meals <180 mg/dL all other times of the day Blood specimen (specimen) 06/15/2020 2:26 AM EST 06/15/2020 2:26 AM EST Chun Stanton MD POINT OF CARE TEST ORDERABLES Performing Organization Address [facility] Phone Number [facility] [place] [place] [address] * POCT Glucose (06/15/2020 1:29 AM EST) Glucose, POC 196 65 - 199 mg/dL [facility] Comment: Supplemental ranges: <140 mg/dL before meals <180 mg/dL all other times of the day Blood specimen (specimen) 06/15/2020 1:29 AM EST 06/15/2020 1:29 AM EST Chun Stanton MD POINT OF CARE TEST ORDERABLES Performing Organization Address [facility] de Phone Number [facility] [place] [place] [address] * POCT Glucose (06/15/2020 12:24 AM EST) Glucose, POC 152 65 - 199 mg/dL [facility] Comment: Supplemental ranges: <140 mg/dL before meals <180 mg/dL all other times of the day Blood specimen (specimen) 06/15/2020 12:24 AM EST 06/15/2020 12:24 AM EST Chun Stanton MD POINT OF CARE TEST ORDERABLES Performing Organization Address City/[facility]/ZIP Co de Phone Number [facility] [place] [address] * POCT Glucose (06/14/2020 11:04 PM EST) Glucose, POC 132 65 - 199 mg/dL [facility] Comment: Supplemental ranges: <140 mg/dL before meals <180 mg/dL all other times of the day Blood specimen (specimen) 06/14/2020 11:04 PM EST 06/14/2020 11:04 PM EST Chun Stanton MD POINT OF CARE TEST ORDERABLES Performing Organization Address [facility] Co de Phone Number [facility] [place] [place] [address] * POCT Glucose (06/14/2020 10:29 PM EST) Glucose, POC 114 65 - 199 mg/dL [facility] Comment: Supplemental ranges: <140 mg/dL before meals <180 mg/dL all other times of the day Blood specimen (specimen) 06/14/2020 10:29 PM EST 06/14/2020 10:29 PM EST Chun Stanton MD POINT OF CARE TEST ORDERABLES Performing Organization Address City/[facility]/ZIP Co de Phone Number [facility] [place] [address] * POCT Glucose (06/14/2020 9:03 PM EST) Glucose, POC 110 65 - 199 mg/dL [facility] Comment: Supplemental ranges: <140 mg/dL before meals <180 mg/dL all other times of the day Blood specimen (specimen) 06/14/2020 9:03 PM EST 06/14/2020 9:03 PM EST Chun Stanton MD POINT OF CARE TEST ORDERABLES [facility] [place] [place] [address] * POCT Glucose (06/14/2020 8:06 PM EST) Glucose, POC 104 65 - 199 mg/dL [facility] Comment: Supplemental ranges: <140 mg/dL before meals <180 mg/dL all other times of the day Blood specimen (specimen) 06/14/2020 8:06 PM EST 06/14/2020 8:06 PM EST Chun Stanton MD POINT OF CARE TEST ORDERABLES [facility] [place] [place] [address] * POCT Glucose (06/14/2020 7:02 PM EST) Glucose, POC 118 65 - 199 mg/dL [facility] Comment: Supplemental ranges: <140 mg/dL before meals <180 mg/dL all other times of the day Blood specimen (specimen) 06/14/2020 7:02 PM EST 06/14/2020 7:02 PM EST Chun Stanton MD POINT OF CARE TEST ORDERABLES [facility] [place] [place] [address] * POCT Glucose (06/14/2020 5:24 PM EST) Glucose, POC 141 65 - 199 mg/dL [facility] Comment: Supplemental ranges: <140 mg/dL before meals <180 mg/dL all other times of the day Blood specimen (specimen) 06/14/2020 5:24 PM EST 06/14/2020 5:24 PM EST Chun Stanton MD POINT OF CARE TEST ORDERABLES [facility] [place] [place] [address] * POCT Glucose (06/14/2020 4:21 PM EST) Glucose, POC 168 65 - 199 mg/dL [facility] Comment: Supplemental ranges: <140 mg/dL before meals <180 mg/dL all other times of the day Blood specimen (specimen) 06/14/2020 4:21 PM EST 06/14/2020 4:21 PM EST Chun Stanton MD POINT OF CARE TEST ORDERABLES [facility] [place] [address] * (ABNORMAL) POCT Glucose (06/14/2020 3:12 PM EST) Glucose, POC 206(H) 65 - 199 mg/dL [facility] Comment: Supplemental ranges: <140 mg/dL before meals <180 mg/dL all other times of the day Blood specimen (specimen) 06/14/2020 3:12 PM EST 06/14/2020 3:12 PM EST Chun Stanton MD POINT OF CARE TEST ORDERABLES Performing Organization Address City/[facility]/ZIP Co de Phone Number [facility] [place] [address] * (ABNORMAL) POCT Glucose (06/14/2020 2:07 PM EST) Glucose, POC 220(H) 65 - 199 mg/dL [facility] Comment: Supplemental ranges: <140 mg/dL before meals <180 mg/dL all other times of the day Blood specimen (specimen) 06/14/2020 2:07 PM EST 06/14/2020 2:07 PM EST Chun Stanton MD POINT OF CARE TEST ORDERABLES [facility] [place] [place] [address] * POCT Glucose (06/14/2020 1:04 PM EST) Glucose, POC 188 65 - 199 mg/dL [facility] Comment: Supplemental ranges: <140 mg/dL before meals <180 mg/dL all other times of the day Blood specimen (specimen) 06/14/2020 1:04 PM EST 06/14/2020 1:04 PM EST Chun Stanton MD POINT OF CARE TEST ORDERABLES [facility] [place] [address] * POCT Glucose (06/14/2020 11:56 AM EST) Glucose, POC 154 65 - 199 mg/dL [facility] Comment: Supplemental ranges: <140 mg/dL before meals <180 mg/dL all other times of the day Blood specimen (specimen) 06/14/2020 11:56 AM EST 06/14/2020 11:56 AM EST Chun Stanton MD POINT OF CARE TEST ORDERABLES [facility] [place] [address] * POCT Glucose (06/14/2020 10:04 AM EST) Glucose, POC 139 65 - 199 mg/dL [facility] Comment: Supplemental ranges: <140 mg/dL before meals <180 mg/dL all other times of the day Blood specimen (specimen) 06/14/2020 10:04 AM EST 06/14/2020 10:04 AM EST Chun Stanton MD POINT OF CARE TEST ORDERABLES [facility] [place] [address] * POCT Glucose (06/14/2020 9:32 AM EST) Glucose, POC 129 65 - 199 mg/dL [facility] Comment: Supplemental ranges: <140 mg/dL before meals <180 mg/dL all other times of the day Blood specimen (specimen) 06/14/2020 9:32 AM EST 06/14/2020 9:32 AM EST Chun Stanton MD POINT OF CARE TEST ORDERABLES [facility] [place] [place] [address] * POCT Glucose (06/14/2020 8:36 AM EST) Glucose, POC 134 65 - 199 mg/dL [facility] Comment: Supplemental ranges: <140 mg/dL before meals <180 mg/dL all other times of the day Blood specimen (specimen) 06/14/2020 8:36 AM EST 06/14/2020 8:36 AM EST Chun Stanton MD POINT OF CARE TEST ORDERABLES Performing Organization Address City/[facility]/ZIP Co de Phone Number [facility] [place] [place] [address] * POCT Glucose (06/14/2020 6:00 AM EST) Glucose, POC 156 65 - 199 mg/dL [facility] Comment: Supplemental ranges: <140 mg/dL before meals <180 mg/dL all other times of the day Blood specimen (specimen) 06/14/2020 6:00 AM EST 06/14/2020 6:00 AM EST Chun Stanton MD POINT OF CARE TEST ORDERABLES Performing Organization Address City/[facility]/ZIP Co de Phone Number [facility] [place] [address] * (ABNORMAL) Hemoglobin A1c (06/14/2020 5:13 AM EST) Hemoglobin A1c 8.2(H) 4.3 - 5.6 % [facility] Comment: Reference Range: 4.3 [...] Mellitus, Diabetes Care 2013; 36: Suppl. 1, G47-15 Estimated Average Glucose See note mg/dL [facility] Comment: Estimated Average Glucose [...] into estimated average glucose values. ??Diabetes Care 2008:31(8):4582-1166. Blood specimen (specimen) Venous Draw / Unknown 06/14/2020 5:13 AM EST 06/15/2020 2:29 PM EST Narrative Resulting Agency Comment Spec In Lab Zenia Lanza APRN CHEMISTRY ORDERABLE S [facility] [place] [place] [address] * Scan, Peripheral Blood (06/14/2020 5:13 AM EST) [facility] Plat estimate Decreased [facility] RBC Morphology Abnormal [facility] Microcyte 1-5 /HPF [facility] Ovalocytes 1-5 /HPF [facility] [place] Cells 1-5 /HPF [facility] Blood specimen (specimen) 06/14/2020 5:13 AM EST 06/14/2020 5:23 AM EST Narrative Resulting Agency Comment Spec In Lab Kris KISER HEMATOLOGY ORDERABLE S Performing Organization Address [facility]/ZIP Co de Phone Number [facility] [place] [place] [address] * (ABNORMAL) Differential, Automated (06/14/2020 5:13 AM EST) [facility] Neutrophil % 78.7 % [facility] Neutrophil Absolute 10.60(H) 1.70 - 6.10 x10(3)/mc L [facility] Lymph % 7.9 % [facility] Lymphocytes Abs 1.1 0.9 - 3.2 x10(3)/mc L [facility] Monocyte % 12.9 % [facility] Monocyte Abs 1.7(H) 0.3 - 0.9 x10(3)/mc L [facility] Eos % 0.0 % [facility] Eosinophils Abs 0.0 0.0 - 0.4 x10(3)/mc L [facility] Basophil % 0.1 % [facility] Baso Absolute 0.0 0.0 - 0.1 x10(3)/mc L [facility] Immature Gran % 0.40 % [facility] Comment: Immature granulocytes(IG's)percentage and absolute count will include metamyelocytes, myelocytes, and promyelocytes. Blood smears from CBCs yielding IG's will be scanned manually for concordance. If this scan disagrees with the automated IG or if promyelocytes are noted, a manual differential will be performed. Immature Gran Absolute 0.06(H) 0.00 - 0.04 x10(3)/mc L [facility] Blood specimen (specimen) 06/14/2020 5:13 AM EST 06/14/2020 5:23 AM EST Narrative Resulting Agency Comment Spec In Lab Kris KISER HEMATOLOGY ORDERABLE S [facility] [place] [place] [address] * (ABNORMAL) Hemogram (06/14/2020 5:13 AM EST) White Blood Cell 13.5(H) 4.0 - 9.5 x10(3)/mc L [facility] Red Blood Cell 3.04(L) 4.58 - 5.54 x10(6)/mc L [facility] Hemoglobin 8.8(L) 13.7 - 16.5 gm/dL [facility] Hematocrit 25.5(L) 40.5 - 48.5 % [facility] Mean Cell Volume 83.9 82.9 - 93.1 fL [facility] Mean Cell Hemoglobin 28.9 27.5 - 32.1 pg [facility] Mean Cell Hemoglobin Concentration 34.5 32.0 - 35.7 gm/dL [facility] Platelet 123(L) 145 - 357 x10(3)/mc L [facility] RDW Standard Deviation 42.4 36.0 - 45.0 fL [facility] RDW coefficient of variation 13.8 11.4 - 13.8 % [facility] Mean Platelet Volume 11.5 7.6 - 12.9 fL [facility] NRBC% auto 0.0 % [facility] NRBC Absolute 0.000 0.000 - 0.000 x10(3)/mc L [facility] Blood specimen (specimen) 06/14/2020 5:13 AM EST 06/14/2020 5:23 AM EST Narrative Resulting Agency Comment Spec In Lab Kris KISER HEMATOLOGY ORDERABLE S [facility] [address] * (ABNORMAL) Basic Metabolic Panel (non-fasting) (06/14/2020 5:13 AM EST) Glucose 143 65 - 199 mg/dL [facility] Comment:Diabetes: >=200 mg/d L plus symptoms Blood Urea Nitrogen 14 10 - 20 mg/dL [facility] Creatinine 0.99 0.80 - 1.50 mg/dL [facility] Sodium 140 135 - 145 mmol/L [facility] Potassium 4.0 3.5 - 5.0 mmol/L [facility] Comment: Please note: ??Patients with WBC >100,000 may have falsely elevated Potassium levels. ??For accurate Potassium quantification in these patients send serum separator tube (gold top) for subsequent determinations. ??Contact the Clinical Chemistry Laboratory if there are any questions. Chloride 106 98 - 107 mmol/L [facility] Carbon Dioxide 24 22 - 31 mmol/L [facility] Anion Gap 10 5 - 15 mmol/L [facility] Calcium 8.0(L) 8.5 - 10.5 mg/dL [facility] Est Glomerular Filtration Rate 77 >=60 mL/min/1. 73 m?? [facility] Comment: The eGFR was calculated using the CKD-EPI equation. As with all creatinine based estimates of kidney function, eGFR values calculated with the CKD-EPI equation are not accurate in patients with acute kidney failure, extremes of body mass or the acutely ill. http://[employer]/DHMCnkf eGFR 89 >=60 mL/min/1. 73 m?? [facility] Comment: The eGFR was calculated using the CKD-EPI equation. As with all creatinine based estimates of kidney function, eGFR values calculated with the CKD-EPI equation are not accurate in patients with acute kidney failure, extremes of body mass or the acutely ill. http://[employer]/DHMCnkf Blood specimen (specimen) 06/14/2020 5:13 AM EST 06/14/2020 5:23 AM EST Narrative Resulting Agency Comment Spec In Lab Chun Stanton MD CHEMISTRY ORDERABLE S [facility] [place] [address] * (ABNORMAL) Troponin (06/14/2020 5:13 AM EST) Troponin-T 0.47(H) 0.00 - 0.00 ng/mL [facility] Comment: The 99th percentile for Troponin T is less than 0.01 ng/mL, any detectable cTnT concentration using this assay should be considered elevated. According to the third universal definition of myocardial infarction the following criteria with a clinical presentation consistent with acute myocardial ischemia meets the diagnosis for a myocardial infarction (OR). Detection of a rise and/or fall of cTnT, with at least one value greater than the 99th percentile (> or = 0.01) and with at least one of the following ?? Symptoms of ischemia ?? New or presumed new significant EL-[id number] wave (ST-T) changes or new left bundle [...] additional sample may be indicated. Reference: Third [place] Definition of Myocardial Infarction. Journal of the [place] [employer] 2012;60:1581-98 Blood specimen (specimen) 06/14/2020 5:13 AM EST 06/14/2020 5:23 AM EST Narrative Resulting Agency Comment Spec In Lab Chun Stanton MD CHEMISTRY ORDERABLE S Performing Organization Address [facility] de Phone Number [facility] [place] [address] * POCT Glucose (06/14/2020 2:36 AM EST) Glucose, POC 169 65 - 199 mg/dL [facility] Comment: Supplemental ranges: <140 mg/dL before meals <180 mg/dL all other times of the day Blood specimen (specimen) 06/14/2020 2:36 AM EST 06/14/2020 2:36 AM EST Chun Stanton MD POINT OF CARE TEST ORDERABLES Performing Organization Address [facility] Phone Number [facility] [place] [address] * POCT Glucose (06/13/2020 10:38 PM EST) Glucose, POC 193 65 - 199 mg/dL [facility] Comment: Supplemental ranges: <140 mg/dL before meals <180 mg/dL all other times of the day Blood specimen (specimen) 06/13/2020 10:38 PM EST 06/13/2020 10:38 PM EST Chun Stanton MD POINT OF CARE TEST ORDERABLES Performing Organization Address [facility] de Phone Number [facility] [place] [address] * (ABNORMAL) POCT Glucose (06/13/2020 8:41 PM EST) Glucose, POC 217(H) 65 - 199 mg/dL [facility] Comment: Supplemental ranges: <140 mg/dL before meals <180 mg/dL all other times of the day Blood specimen (specimen) 06/13/2020 8:41 PM EST 06/13/2020 8:41 PM EST Chun Stanton MD POINT OF CARE TEST ORDERABLES Performing Organization Address [facility] Co de Phone Number [facility] [address] * (ABNORMAL) POCT Glucose (06/13/2020 7:04 PM EST) Glucose, POC 217(H) 65 - 199 mg/dL [facility] Comment: Supplemental ranges: <140 mg/dL before meals <180 mg/dL all other times of the day Blood specimen (specimen) 06/13/2020 7:04 PM EST 06/13/2020 7:04 PM EST Chun Stanton MD POINT OF CARE TEST ORDERABLES Performing Organization Address [facility] Co de Phone Number [facility] [place] [address] * (ABNORMAL) POCT Glucose (06/13/2020 6:17 PM EST) Glucose, POC 230(H) 65 - 199 mg/dL [facility] Comment: Supplemental ranges: <140 mg/dL before meals <180 mg/dL all other times of the day Blood specimen (specimen) 06/13/2020 6:17 PM EST 06/13/2020 6:17 PM EST Chun Stanton MD POINT OF CARE TEST ORDERABLES Performing Organization Address City/[facility] Co de Phone Number [facility] [place] [address] * (ABNORMAL) POCT Glucose (06/13/2020 5:42 PM EST) Glucose, POC 255(H) 65 - 199 mg/dL [facility] Comment: Supplemental ranges: <140 mg/dL before meals <180 mg/dL all other times of the day Blood specimen (specimen) 06/13/2020 5:42 PM EST 06/13/2020 5:42 PM EST Chun Stanton MD POINT OF CARE TEST ORDERABLES Performing Organization Address [facility] de Phone Number [facility] [place] [address] * (ABNORMAL) Hemoglobin (06/13/2020 5:38 PM EST) [facility] Hemoglobin 9.9(L) 13.7 - 16.5 gm/dL [facility] Blood specimen (specimen) 06/13/2020 5:38 PM EST 06/13/2020 5:49 PM EST Narrative Resulting Agency Comment Spec In Lab Chun Stanton MD HEMATOLOGY ORDERABL ES Performing Organization Address [facility] Phone Number [facility] [place] [address] * Potassium (06/13/2020 5:38 PM EST) [facility] Potassium 3.9 3.5 - 5.0 mmol/L [facility] Comment: Please note: ??Patients [...] MD CHEMISTRY ORDERABLE S Performing Organization Address [facility] Co de Phone Number [facility] [place] [address] * (ABNORMAL) POCT Glucose (06/13/2020 4:39 PM EST) [facility] Glucose, POC 215(H) 65 - 199 mg/dL [facility] Comment: Supplemental ranges: <140 mg/dL before meals <180 mg/dL all other times of the day Blood specimen (specimen) 06/13/2020 4:39 PM EST 06/13/2020 4:39 PM EST Chun Stanton MD POINT OF CARE TEST ORDERABLES [facility] [place] [address] * (ABNORMAL) BLOOD GAS 2 ARTERIAL (06/13/2020 4:22 PM EST) pH, Arterial 7.34(L) 7.35 - 7.45 [facility] PCO2, Arterial 37 35 - 45 mmHg [facility] PO2, Arterial 82(L) 85 - 104 mmHg [facility] Bicarbonate, Arterial 19.1(L) 20.0 - 26.0 mmol/L [facility] Base Excess, Arterial -6.7(L) -3.0 - 3.0 mmol/L [facility] Hgb Blood Gas 10.8(L) 13.7 - 16.5 gm/dL [facility] Oxyhemoglobin, Arterial 93.9(L) 94.0 - 97.0 % [facility] Carboxyhemoglob in, Arterial 0.1 % [facility] Comment: Nonsmokers: 0.5-1.5% COHB Smokers: Variable, but usually less than 10% Toxic: 20-30% COHB Lethal: Greater than 60% COHB Methemoglobin, Arterial 0.4 <=1.5 % [facility] Na Whole Blood 137 135 - 145 mmol/L [facility] K Whole Blood 3.6 3.5 - 5.0 mmol/L [facility] Comment: Please note: Patients with WBC >100,000 may have falsely elevated Potassium levels. Contact the Clinical Chemistry Laboratory if there are any questions. ICa Whole Blood 1.06(L) 1.15 - 1.33 mmol/L [facility] Comment: Note: ??Total bilirubin higher than 20 mg/dL may lead to falsely low ionized calcium. CL Whole Blood 108(H) 98 - 107 mmol/L [facility] Gluc Whole Bld 226(H) 65 - 199 mg/dL [facility] Comment:Diabetes: >=200 mg/d L plus symptoms. Lactate WB 2.9(H) 0.5 - 2.2 mmol/L [facility] FIO2 Art 40 % [facility] PF Ratio Art 205 [facility] Blood specimen (specimen) 06/13/2020 4:22 PM EST 06/13/2020 4:22 PM EST Chun Stanton MD POINT OF CARE TEST ORDERABLES Performing Organization Address [facility] de Phone Number [facility] [place] [address] * POCT Glucose (06/13/2020 3:32 PM EST) [facility] Signature Glucose, POC 184 65 - 199 mg/dL [facility] Comment: Supplemental ranges: <140 mg/dL before meals <180 mg/dL all other times of the day Blood specimen (specimen) 06/13/2020 3:32 PM EST 06/13/2020 3:32 PM EST Chun Stanton MD POINT OF CARE TEST ORDERABLES Performing Organization Address [facility] de Phone Number [facility] [place] [address] * XR Chest One View (06/13/2020 2:48 [...] the number below. ? Electronically signed by: Yasmin Evans MD, [facility] ([phone]), at 06/13/2020 2:55 PM Narrative 06/13/2020 2:55 PM EST EXAMINATION: XR CHEST ONE VIEW CLINICAL HISTORY: Status post aortic valve replacement/ CABG TECHNIQUE: 1 view of the chest , AP 30 degrees upright COMPARISON: Radiographs May 26 and June 03, 2020 FINDINGS: -Endotracheal tube tip is 7 cm above the ranjith. -Right internal jugular vein [place]-Lisa catheter tip is at the bifurcation of [...] above the ranjith. -Right internal jugular vein [place]-Lisa catheter tip is at the bifurcationof main [...] below. Electronically signed by: Yasmin Evans MD, [facility]([phone]), at 06/13/2020 2:55 PM Chun Stanton MD IMG DX ORDERABLES * EKG 12 Lead (06/13/2020 2:20 PM EST) Pathologist [facility] [place] Ventricular rate 56 BPM MUSE SYSTEM Atrial Rate 56 BPM MUSE SYSTEM P-R Interval 132 ms MUSE SYSTEM QRS Duration 92 ms MUSE SYSTEM Q-T Interval 458 ms MUSE SYSTEM QTC Calculated (Bezet) 441 ms MUSE SYSTEM Calculated P [place] 45 degrees MUSE SYSTEM Calculated R [place] -32 degrees MUSE SYSTEM Calculated T [place] -30 degrees MUSE SYSTEM INTERPRETATION Sinus bradycardia Left axis deviation Inferior infarct (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-2020) ST elevation, consider early repolarization Abnormal ECG When compared with ECG of 03-JUN-2020 11:37, T wave inversion are no longer present in the lateral leads. Confirmed by Carlos Toro ([id number]) on 06/13/2020 4:08:19 PM MUSE SYSTEM 06/13/2020 2:20 PM EST 06/13/2020 4:08 PM EST Chun Stanton MD ECG ORDERABLES MUSE SYSTEM * (ABNORMAL) BLOOD GAS 2 ARTERIAL (06/13/2020 2:19 PM EST) Pathologist [facility] [place] pH, Arterial 7.32(L) 7.35 - 7.45 [facility] PCO2, Arterial 47(H) 35 - 45 mmHg [facility] PO2, Arterial 205(H) 85 - 104 mmHg [facility] Bicarbonate, Arterial 24.1 20.0 - 26.0 mmol/L [facility] Base Excess, Arterial -1.9 -3.0 - 3.0 mmol/L [facility] Hgb Blood Gas 10.0(L) 13.7 - 16.5 gm/dL [facility] Oxyhemoglobin, Arterial 97.6(H) 94.0 - 97.0 % [facility] Carboxyhemoglob in, Arterial 0.3 % [facility] Comment: Nonsmokers: 0.5-1.5% COHB Smokers: Variable, but usually less than 10% Toxic: 20-30% COHB Lethal: Greater than 60% COHB Methemoglobin, Arterial 0.6 <=1.5 % [facility] Na Whole Blood 139 135 - 145 mmol/L [facility] K Whole Blood 4.3 3.5 - 5.0 mmol/L [facility] Comment: Please note: Patients with WBC >100,000 may have falsely elevated Potassium levels. Contact the Clinical Chemistry Laboratory if there are any questions. ICa Whole Blood 1.12(L) 1.15 - 1.33 mmol/L [facility] Comment: Note: ??Total bilirubin higher than 20 mg/dL may lead to falsely low ionized calcium. CL Whole Blood 107 98 - 107 mmol/L [facility] Gluc Whole Bld 186 65 - 199 mg/dL [facility] Comment:Diabetes: >=200 mg/d L plus symptoms. Lactate WB 1.7 0.5 - 2.2 mmol/L [facility] FIO2 Art 100 % [facility] PF Ratio Art 205 [facility] Blood specimen (specimen) 06/13/2020 2:19 PM EST 06/13/2020 2:19 PM EST Chun Stanton MD POINT OF CARE TEST ORDERABLES [facility] [place] [address] * (ABNORMAL) BLOOD GAS 2 ARTERIAL (06/13/2020 12:46 PM EST) pH, Arterial 7.33(L) 7.35 - 7.45 [facility] PCO2, Arterial 42 35 - 45 mmHg [facility] PO2, Arterial 90 85 - 104 mmHg [facility] Bicarbonate, Arterial 21.8 20.0 - 26.0 mmol/L [facility] Base Excess, Arterial -4.0(L) -3.0 - 3.0 mmol/L [facility] Hgb Blood Gas 7.8(L) 13.7 - 16.5 gm/dL [facility] Oxyhemoglobin, Arterial 94.6 94.0 - 97.0 % [facility] Carboxyhemoglob in, Arterial 1.0 % [facility] Comment: Nonsmokers: 0.5-1.5% COHB Smokers: Variable, but usually less than 10% Toxic: 20-30% COHB Lethal: Greater than 60% COHB Methemoglobin, Arterial 0.3 <=1.5 % [facility] Na Whole Blood 134(L) 135 - 145 mmol/L [facility] K Whole Blood 3.8 3.5 - 5.0 mmol/L [facility] Comment: Please note: Patients with WBC >100,000 may have falsely elevated Potassium levels. Contact the Clinical Chemistry Laboratory if there are any questions. ICa Whole Blood 1.16 1.15 - 1.33 mmol/L [facility] Comment: Note: ??Total bilirubin higher than 20 mg/dL may lead to falsely low ionized calcium. CL Whole Blood 107 98 - 107 mmol/L [facility] Gluc Whole Bld 194 65 - 199 mg/dL [facility] Comment:Diabetes: >=200 mg/d L plus symptoms. Lactate WB 3.2(H) 0.5 - 2.2 mmol/L [facility] Blood specimen (specimen) 06/13/2020 12:46 PM EST 06/13/2020 12:46 PM EST Chun Stanton MD POINT OF CARE TEST ORDERABLES [facility] [place] [address] * Scan, Peripheral Blood (06/13/2020 12:40 PM EST) Plat estimate Decreased [facility] RBC Morphology Abnormal [facility] Ovalocytes 1-5 /HPF [facility] Blood specimen (specimen) 06/13/2020 12:40 PM EST 06/13/2020 12:51 PM EST Narrative Resulting Agency Comment Spec In Lab Sarahi Avery MD HEMATOLOGY ORDERABLE S Performing Organization Address [facility] Co de Phone Number [facility] [place] [address] * (ABNORMAL) Fibrinogen (06/13/2020 12:40 PM EST) Fibrinogen 156(L) 200 - 393 mg/dL [facility] Comment: OR Result called [...] MD HEMATOLOGY ORDERABL ES Performing Organization Address [facility] Co de Phone Number [facility] [place] [address] * APTT (06/13/2020 12:40 PM EST) Partial Thromboplastin Time 27 25 - 37 sec [facility] Comment: OR Result called [...] MD HEMATOLOGY ORDERABL ES Performing Organization Address [facility] de Phone Number [facility] [place] [address] * (ABNORMAL) Prothrombin Time (06/13/2020 12:40 PM EST) Prothrombin Time 17.2(H) 9.4 - 12.5 sec [facility] Comment: OR Result called by ?? SALVLT OR Results read back by: ? Wilfred Heath at 2020-06-13 13:07:09 International Normalization Ratio 1.5 [facility] Comment: OR Result called [...] MD HEMATOLOGY ORDERABL ES Performing Organization Address [facility] Co de Phone Number [facility] [place] [address] * (ABNORMAL) Hemogram (06/13/2020 12:40 PM EST) White Blood Cell 9.1 4.0 - 9.5 x10(3)/mc L [facility] Red Blood Cell 2.50(L) 4.58 - 5.54 x10(6)/mc L [facility] Hemoglobin 7.3(L) 13.7 - 16.5 gm/dL [facility] Hematocrit 21.4(L) 40.5 - 48.5 % [facility] Comment: This result has been called to WILFRED HEATH by Adelita Huff on 06 13 2020 at 1331, and has been read back. Mean Cell Volume 85.6 82.9 - 93.1 fL [facility] Mean Cell Hemoglobin 29.2 27.5 - 32.1 pg [facility] Mean Cell Hemoglobin Concentration 34.1 32.0 - 35.7 gm/dL [facility] Platelet 81(L) 145 - 357 x10(3)/mc L [facility] RDW Standard Deviation 41.9 36.0 - 45.0 fL [facility] RDW coefficient of variation 13.5 11.4 - 13.8 % [facility] Mean Platelet Volume 12.1 7.6 - 12.9 fL [facility] NRBC% auto 0.0 % [facility] NRBC Absolute 0.000 0.000 - 0.000 x10(3)/mc L [facility] Blood specimen (specimen) 06/13/2020 12:40 PM EST 06/13/2020 12:51 PM EST Narrative Resulting Agency Comment Spec In Lab Marianna Torres MD HEMATOLOGY ORDERABL ES Performing Organization Address City/State/[facility] Co de Phone Number [facility] [place] [address] * (ABNORMAL) BLOOD GAS 2 ARTERIAL (06/13/2020 12:13 PM EST) pH, Arterial 7.30(L) 7.35 - 7.45 [facility] PCO2, Arterial 44 35 - 45 mmHg [facility] PO2, Arterial 392(H) 85 - 104 mmHg [facility] Bicarbonate, Arterial 21.3 20.0 - 26.0 mmol/L [facility] Base Excess, Arterial -5.1(L) -3.0 - 3.0 mmol/L [facility] Hgb Blood Gas 7.8(L) 13.7 - 16.5 gm/dL [facility] Oxyhemoglobin, Arterial 98.3(H) 94.0 - 97.0 % [facility] Carboxyhemoglob in, Arterial 0.8 % [facility] Comment: Nonsmokers: 0.5-1.5% COHB Smokers: Variable, but usually less than 10% Toxic: 20-30% COHB Lethal: Greater than 60% COHB Methemoglobin, Arterial 0.3 <=1.5 % [facility] Na Whole Blood 129(L) 135 - 145 mmol/L [facility] K Whole Blood 5.0 3.5 - 5.0 mmol/L [facility] Comment: Please note: Patients with WBC >100,000 may have falsely elevated Potassium levels. Contact the Clinical Chemistry Laboratory if there are any questions. ICa Whole Blood 1.37(H) 1.15 - 1.33 mmol/L [facility] Comment: Note: ??Total bilirubin higher than 20 mg/dL may lead to falsely low ionized calcium. CL Whole Blood 106 98 - 107 mmol/L [facility] Gluc Whole Bld 211(H) 65 - 199 mg/dL [facility] Comment:Diabetes: >=200 mg/d L plus symptoms. Lactate WB 2.9(H) 0.5 - 2.2 mmol/L [facility] Blood specimen (specimen) 06/13/2020 12:13 PM EST 06/13/2020 12:13 PM EST Chun Stanton MD POINT OF CARE TEST ORDERABLES [facility] [place] [address] * Prepare Platelets, Apheresis (06/13/2020 12:10 PM EST) Dispensed? Yes [facility] Blood specimen (specimen) 06/13/2020 12:10 PM EST 06/13/2020 12:08 PM EST Chun Stanton MD BLOOD BANK PRODUCT ORDERABLES [facility] [place] [address] * (ABNORMAL) Platelet count (06/13/2020 11:50 AM EST) [facility] Platelet 107(L) 145 - 357 x10(3)/mc L [facility] Immature Plt % 5.0 0.0 - 7.4 % [facility] Comment: Limitation of the Immature Platelet Fraction (IPF)-May be less reliable when the platelet count is less than [id number]/uL due to statistical imprecision. The IPF value [...] in a decreased state of production. References: [employer] The Clinical Value of the Immature Platelet Fraction (IPF) in Cell Recovery Document Number [id number] 12/2010 [employer] The Role of the Immature Platelet Fraction (IPF) in the Differential Diagnosis of Thrombocytopenia, Document [id number] V05/06/27 P0514 Blood specimen (specimen) 06/13/2020 11:50 AM EST 06/13/2020 11:59 AM EST Narrative Resulting Agency Comment Spec In Lab Chun Stanton MD HEMATOLOGY ORDERABL ES Performing Organization Address City/[facility]/ZIP Co de Phone Number [facility] [place] [place] [address] * (ABNORMAL) Hemoglobin and Hematocrit, blood (06/13/2020 11:50 AM EST) Hemoglobin 7.8(L) 13.7 - 16.5 gm/dL [facility] Hematocrit 22.7(L) 40.5 - 48.5 % [facility] Comment: This result has been called to WILFRED HEATH by Elizabet Santiago on 06 13 2020 at 1207, and has been read back. Blood specimen (specimen) 06/13/2020 11:50 AM EST 06/13/2020 11:59 AM EST Narrative Resulting Agency Comment Spec In Lab Chun Stanton MD HEMATOLOGY ORDERABL ES Performing Organization Address [facility] de Phone Number [facility] [place] [address] * (ABNORMAL) Fibrinogen (06/13/2020 11:50 AM EST) Pathologist [facility] [place] Fibrinogen 161(L) 200 - 393 mg/dL [facility] Comment: OR Result called by ?? CARLOSL OR Results read back by: ? Wilfred Heath at 2020-06-13 12:13:36 A fibrinogen level >100 mg/dL is adequate for hemostasis in most patients without underlying bleeding disorders. Blood specimen (specimen) 06/13/2020 11:50 AM EST 06/13/2020 11:59 AM EST Narrative Resulting Agency Comment Spec In Lab Chun Stanton MD HEMATOLOGY ORDERABL ES Performing Organization Address [facility] Co de Phone Number [facility] [place] [address] * (ABNORMAL) BLOOD GAS 2 ARTERIAL (06/13/2020 11:44 AM EST) pH, Arterial 7.34(L) 7.35 - 7.45 [facility] PCO2, Arterial 41 35 - 45 mmHg [facility] PO2, Arterial 235(H) 85 - 104 mmHg [facility] Bicarbonate, Arterial 21.5 20.0 - 26.0 mmol/L [facility] Base Excess, Arterial -4.3(L) -3.0 - 3.0 mmol/L [facility] Hgb Blood Gas 9.3(L) 13.7 - 16.5 gm/dL [facility] Oxyhemoglobin, Arterial 98.5(H) 94.0 - 97.0 % [facility] Carboxyhemoglob in, Arterial 0.2 % [facility] Comment: Nonsmokers: 0.5-1.5% COHB Smokers: Variable, but usually less than 10% Toxic: 20-30% COHB Lethal: Greater than 60% COHB Methemoglobin, Arterial 0.3 <=1.5 % [facility] Na Whole Blood 132(L) 135 - 145 mmol/L [facility] K Whole Blood 4.6 3.5 - 5.0 mmol/L [facility] Comment: Please note: Patients with WBC >100,000 may have falsely elevated Potassium levels. Contact the Clinical Chemistry Laboratory if there are any questions. ICa Whole Blood 0.97(L) 1.15 - 1.33 mmol/L [facility] Comment: Note: ??Total bilirubin higher than 20 mg/dL may lead to falsely low ionized calcium. CL Whole Blood 106 98 - 107 mmol/L [facility] Gluc Whole Bld 222(H) 65 - 199 mg/dL [facility] Comment:Diabetes: >=200 mg/d L plus symptoms. Lactate WB 2.1 0.5 - 2.2 mmol/L [facility] Blood specimen (specimen) 06/13/2020 11:44 AM EST 06/13/2020 11:44 AM EST Chun Stanton MD POINT OF CARE TEST ORDERABLES [facility] [place] [address] * (ABNORMAL) BLOOD GAS 2 ARTERIAL (06/13/2020 11:08 AM EST) pH, Arterial 7.34(L) 7.35 - 7.45 [facility] PCO2, Arterial 41 35 - 45 mmHg [facility] PO2, Arterial 288(H) 85 - 104 mmHg [facility] Bicarbonate, Arterial 21.9 20.0 - 26.0 mmol/L [facility] Base Excess, Arterial -3.8(L) -3.0 - 3.0 mmol/L [facility] Hgb Blood Gas 9.1(L) 13.7 - 16.5 gm/dL [facility] Oxyhemoglobin, Arterial 98.7(H) 94.0 - 97.0 % [facility] Carboxyhemoglob in, Arterial 0.3 % [facility] Comment: Nonsmokers: 0.5-1.5% COHB Smokers: Variable, but usually less than 10% Toxic: 20-30% COHB Lethal: Greater than 60% COHB Methemoglobin, Arterial 0.3 <=1.5 % [facility] Na Whole Blood 132(L) 135 - 145 mmol/L [facility] K Whole Blood 5.3(H) 3.5 - 5.0 mmol/L [facility] Comment: Please note: Patients with WBC >100,000 may have falsely elevated Potassium levels. Contact the Clinical Chemistry Laboratory if there are any questions. ICa Whole Blood 0.98(L) 1.15 - 1.33 mmol/L [facility] Comment: Note: ??Total bilirubin higher than 20 mg/dL may lead to falsely low ionized calcium. CL Whole Blood 106 98 - 107 mmol/L [facility] Gluc Whole Bld 230(H) 65 - 199 mg/dL [facility] Comment:Diabetes: >=200 mg/d L plus symptoms. Lactate WB 2.0 0.5 - 2.2 mmol/L [facility] Blood specimen (specimen) 06/13/2020 11:08 AM EST 06/13/2020 11:08 AM EST Chun Stanton MD POINT OF CARE TEST ORDERABLES [facility] [place] [address] * (ABNORMAL) BLOOD GAS 2 ARTERIAL (06/13/2020 10:25 AM EST) pH, Arterial 7.38 7.35 - 7.45 [facility] PCO2, Arterial 38 35 - 45 mmHg [facility] PO2, Arterial 436(H) 85 - 104 mmHg [facility] Bicarbonate, Arterial 21.9 20.0 - 26.0 mmol/L [facility] Base Excess, Arterial -3.2(L) -3.0 - 3.0 mmol/L [facility] Hgb Blood Gas 9.2(L) 13.7 - 16.5 gm/dL [facility] Oxyhemoglobin, Arterial 98.8(H) 94.0 - 97.0 % [facility] Carboxyhemoglob in, Arterial 0.3 % [facility] Comment: Nonsmokers: 0.5-1.5% COHB Smokers: Variable, but usually less than 10% Toxic: 20-30% COHB Lethal: Greater than 60% COHB Methemoglobin, Arterial 0.3 <=1.5 % [facility] Na Whole Blood 133(L) 135 - 145 mmol/L [facility] K Whole Blood 5.8(H) 3.5 - 5.0 mmol/L [facility] Comment: Please note: Patients with WBC >100,000 may have falsely elevated Potassium levels. Contact the Clinical Chemistry Laboratory if there are any questions. ICa Whole Blood 0.92(Criti candida) 1.15 - 1.33 mmol/L [facility] Comment: Noted by instrument/control technician. Note: ??Total bilirubin higher than 20 mg/dL may lead to falsely low ionized calcium. CL Whole Blood 104 98 - 107 mmol/L [facility] Gluc Whole Bld 235(H) 65 - 199 mg/dL [facility] Comment:Diabetes: >=200 mg/d L plus symptoms. Lactate WB 2.1 0.5 - 2.2 mmol/L [facility] Blood specimen (specimen) 06/13/2020 10:25 AM EST 06/13/2020 10:25 AM EST Chun Stanton MD POINT OF CARE TEST ORDERABLES Performing Organization Address [facility] [place] [address] * Specimen to Pathology (06/13/2020 10:24 AM EST) AP Specimen 06/13/2020 10:2 4 AM EST 06/13/2020 10:24 AM EST Narrative [facility] - 06/13/2020 10:24 AM EST Specimen requisition ordered. ??Separate Pathology report to follow Chun Stanton MD PATHOLOGY/CYTOLOGY ORDERABLES Performing Organization Address [facility] [place] [address] * Surgical Pathology Report (06/13/2020 10:23 AM EST) Final Diagnosis [id number] ? Location: [address] The signing pathologist has (i) examined the relevant preparation(s) for the specimen(s) and (ii) rendered or confirmed the diagnosis(es). . ?Surgical Pathology DIAGNOSIS A - Aortic Valves Leaflets, excision - Valve leaflet tissue with nodular calcific and myxoid degeneration. Electronically signed by: ??Lena Henson DO Verified: ??06/16/2020 ?Pathologist Performed at: [place] [place], [place], [place] SPECIMEN(S) SUBMITTED A - Aortic Valves [...] sing: Blocks submitted for decalcification : A1. Employee Benefits Attorney sections in 1 cassette labeled A1. ??ajw 06/16/2020 3:31 PM EST [facility] AORTIC STRUCTURE / Unknown 06/13/2020 10:23 AM EST 06/13/2020 10:23 AM EST Chun Stanton MD PATHOLOGY/CYTOLOGY ORDERABLES Performing Organization Address City/State/[facility] Co de Phone Number [facility] [place] [address] * (ABNORMAL) BLOOD GAS 2 VENOUS (06/13/2020 9:54 AM EST) pH, Venous 7.33 7.32 - 7.42 [facility] PCO2, Venous 45 41 - 51 mmHg [facility] PO2, Venous 47(H) 25 - 40 mmHg [facility] Bicarbonate, Venous 23.1 mmol/L [facility] Base Excess, Venous -2.9 mmol/L [facility] Hgb Blood Gas 9.3(L) 13.7 - 16.5 gm/dL [facility] Oxyhemoglobin, Venous 79.5 % [facility] Carboxyhemoglob in, Venous 0.9 % [facility] Comment: Nonsmokers: 0.5-1.5% COHB Smokers: Variable, but usually less than 10% Toxic: 20-30% COHB Lethal: Greater than 60% COHB Methemoglobin, Venous 0.3 <=1.5 % [facility] Na Whole Blood 133(L) 135 - 145 mmol/L [facility] K Whole Blood 4.2 3.5 - 5.0 mmol/L [facility] Comment: Please note: Patients with WBC >100,000 may have falsely elevated Potassium levels. Contact the Clinical Chemistry Laboratory if there are any questions. ICa Whole Blood 0.97(L) 1.15 - 1.33 mmol/L [facility] Comment: Note: ??Total bilirubin higher than 20 mg/dL may lead to falsely low ionized calcium. CL Whole Blood 104 98 - 107 mmol/L [facility] Gluc Whole Bld 142 65 - 199 mg/dL [facility] Comment:Diabetes: >=200 mg/d L plus symptoms Lactate WB 1.8 0.5 - 2.2 mmol/L [facility] Blood Gas Source Venous [facility] Blood specimen (specimen) 06/13/2020 9:54 AM EST 06/13/2020 9:54 AM EST Chun Stanton MD POINT OF CARE TEST ORDERABLES Performing Organization Address City/State/[facility] Co de Phone Number [facility] [place] [place] [address] * (ABNORMAL) BLOOD GAS 2 ARTERIAL (06/13/2020 9:51 AM EST) pH, Arterial 7.36 7.35 - 7.45 [facility] PCO2, Arterial 40 35 - 45 mmHg [facility] PO2, Arterial 374(H) 85 - 104 mmHg [facility] Bicarbonate, Arterial 22.2 20.0 - 26.0 mmol/L [facility] Base Excess, Arterial -3.2(L) -3.0 - 3.0 mmol/L [facility] Hgb Blood Gas 9.2(L) 13.7 - 16.5 gm/dL [facility] Oxyhemoglobin, Arterial 99.0(H) 94.0 - 97.0 % [facility] Carboxyhemoglob in, Arterial 0.1 % [facility] Comment: Nonsmokers: 0.5-1.5% COHB Smokers: Variable, but usually less than 10% Toxic: 20-30% COHB Lethal: Greater than 60% COHB Methemoglobin, Arterial 0.3 <=1.5 % [facility] Na Whole Blood 133(L) 135 - 145 mmol/L [facility] K Whole Blood 4.3 3.5 - 5.0 mmol/L [facility] Comment: Please note: Patients with WBC >100,000 may have falsely elevated Potassium levels. Contact the Clinical Chemistry Laboratory if there are any questions. ICa Whole Blood 0.96(L) 1.15 - 1.33 mmol/L [facility] Comment: Note: ??Total bilirubin higher than 20 mg/dL may lead to falsely low ionized calcium. CL Whole Blood 104 98 - 107 mmol/L [facility] Gluc Whole Bld 134 65 - 199 mg/dL [facility] Comment:Diabetes: >=200 mg/d L plus symptoms. Lactate WB 1.9 0.5 - 2.2 mmol/L [facility] Blood specimen (specimen) 06/13/2020 9:51 AM EST 06/13/2020 9:51 AM EST Chun Stanton MD POINT OF CARE TEST ORDERABLES Performing Organization Address City/State/[facility] Co de Phone Number [facility] [place] [address] * (ABNORMAL) BLOOD GAS 2 ARTERIAL (06/13/2020 8:19 AM EST) pH, Arterial 7.39 7.35 - 7.45 [facility] PCO2, Arterial 34(L) 35 - 45 mmHg [facility] PO2, Arterial 99 85 - 104 mmHg [facility] Bicarbonate, Arterial 20.2 20.0 - 26.0 mmol/L [facility] Base Excess, Arterial -4.8(L) -3.0 - 3.0 mmol/L [facility] Hgb Blood Gas 14.8 13.7 - 16.5 gm/dL [facility] Oxyhemoglobin, Arterial 96.4 94.0 - 97.0 % [facility] Carboxyhemoglob in, Arterial 0.6 % [facility] Comment: Nonsmokers: 0.5-1.5% COHB Smokers: Variable, but usually less than 10% Toxic: 20-30% COHB Lethal: Greater than 60% COHB Methemoglobin, Arterial 0.3 <=1.5 % [facility] Na Whole Blood 137 135 - 145 mmol/L [facility] K Whole Blood 5.0 3.5 - 5.0 mmol/L [facility] Comment: Please note: Patients with WBC >100,000 may have falsely elevated Potassium levels. Contact the Clinical Chemistry Laboratory if there are any questions. ICa Whole Blood 1.20 1.15 - 1.33 mmol/L [facility] Comment: Note: ??Total bilirubin higher than 20 mg/dL may lead to falsely low ionized calcium. CL Whole Blood 105 98 - 107 mmol/L [facility] Gluc Whole Bld 186 65 - 199 mg/dL [facility] Comment:Diabetes: >=200 mg/d L plus symptoms. Lactate WB 2.4(H) 0.5 - 2.2 mmol/L [facility] Blood specimen (specimen) 06/13/2020 8:19 AM EST 06/13/2020 8:19 AM EST Chun Stanton MD POINT OF CARE TEST ORDERABLES [facility] [place] [address] * Prepare RBC (06/13/2020 6:40 AM EST) Dispensed? Yes [facility] Blood specimen (specimen) 06/13/2020 6:40 AM EST 06/13/2020 6:39 AM EST Chun Stanton MD BLOOD BANK PRODUCT ORDERABLES [facility] [place] [address] * (ABNORMAL) POCT Glucose (06/13/2020 6:16 AM EST) Glucose, POC 215(H) 65 - 199 mg/dL [facility] Comment: Supplemental ranges: <140 mg/dL before meals <180 mg/dL all other times of the day Blood specimen (specimen) 06/13/2020 6:16 AM EST 06/13/2020 6:16 AM EST Chun Stanton MD POINT OF CARE TEST ORDERABLES Performing Organization Address City/[facility]/ZIP Co de Phone Number [facility] [place] [address] * SCAN DOC: IMPLANTABLE DEVICES (06/13/2020 12:00 [...] (Plegisol) induction solution CONTINUOUS PRN, Starting on 06/13/20 at 0954, Until Sat06/13/20 at 0954, Intra-Operative (Intra-Procedure) New Bag 06/13/2020 9:54 AM EST 255 mLs Central Line cardioplegic solution (Plegisol) maintenance solution CONTINUOUS PRN, Starting on 06/13/20 at 1141, Until Sat06/13/20 at 1141, Intra-Operative [...] DAILY, First dose (after last modification) on Mary Beth 06/16/20 at 0915, Until Discontinued, Routine Given [...] DAILY, First dose (after last modification) on Sat06/20/20 at 0900, Until Discontinued, Routine magnesium sulfate 4 mEq/mL (50 %) injection ONCE PRN, Starting on Sat06/13/20 at 1158, Until 06/13/20 at 1336, Intra-Operative (Intra-Procedure), Routine Given 06/13/2020 11:58 AM EST 2 g Central Line mannitoL (50 grams and over) 100 g/500 mL (20%) infusion CONTINUOUS PRN, Starting on Sat06/13/20 at 1200, Until Sat06/13/20 at 1200, Intra-Operative [...] Alex Glover RN)1518 (Given - Provider: Alex Glover, MOISES)2014 (Given - Provider: Jose Buckley RN) 0839 (Given - Provider: Margaux Jones RN) furosemide (Lasix) tablet 40 mg 40 mg, Oral, 2 TIMES DAILY, First dose (after last modification) on Mary Beth 06/16/20 at 0915, Until Discontinued, Routine 0819 (Given - Provider: Emili Escobar RN)1645 (Given - Provider: Emili Escobar RN) 0854 (Given - Provider: Alex Glover RN)1637 (Given - Provider: Alex Glover, MOISES) 0838 [...] RN) 0838 (Given - Provider: Margaux Jones, MOISES) lisinopriL (Prinivil;Zestril) tablet 40 mg 40 mg, Oral, DAILY, First dose (after last modification) on 06/20/20 at 0900, Until Discontinued, Routine metFORMIN (Glucophage) tablet 1,000 mg 1,000 mg, Oral, 2 TIMES DAILY WITH MEALS, First dose on Sat06/19/20 at 0800, Until Discontinued, Routine 08 (Given - Provider: Margaux Jones RN) metoprolol tartrate (Lopressor) tablet 100 mg 100 mg, Oral, EVERY 12 HOURS SCHEDULED, First dose (after last modification) on Mary Beth 06/16/20 at 2100, Until Discontinued, Hold for HR<60, SBP<90., Routine 818 (Given - Provider: Emili Escobar RN)2051 (Given - Provider: Nicole Domínguez RN) 851 (Given - Provider: Alex Glover RN)2013 (Given - Provider: Jose Buckley RN) 08 (Given - Provider: Margaux Jones RN) pantoprazole EC (Protonix) tablet 40 mg(Linked Group 3) 40 mg, Oral, DAILY, First dose on 06/13/20 at 1500, Until Discontinued, DO NOT CRUSH OR OPEN If unable to take PO, may give IV 08 (Given - Provider: Emili Escobar RN) 0854 (Given - Provider: Alex Glover, MOISES) 08 (Given - Provider: Margaux Jones RN) [...] Routine documented in this encounter Care Teams Customs And Immigration Officer Relationship Specialty Start Date End Date Ramiro Ball MD [address] [place] [id number] PCP - General 06/06/10 02/17/24 documented as of this encounter
--- OUTSIDE RECORDS SUMMARY | 2024-04-02 21:15 | XMS_ITS | Encounter Summary ---
Author Organization [facility] [place] [address] Care Team Providers Care Seo Marketing Specialist Name Role Phone Ramiro Ball MD Primary Care Provider [phone] Reason for Visit * Reason Comments Coronary Artery Disease Encounter Details Date Type Department Care Team (Late st Contact Info) Description 04/15/2012 9:15 AM EDT Office Visit [address] [address] Carl Grant MD [facility] [place] [address] CAD (coronary artery disease) (Primary Dx) Social [...] 2:30 PM EST [place] [address] Susanna Cm, ANIMAL PHYSIOLOGIST [facility] [place] [address] documented as of this encounter Visit Diagnoses Diagnosis CAD (coronary artery disease)- Primary Coronary atherosclerosis of unspecified type of vessel, [place] or graft documented in this encounter Care Teams Seo Marketing Specialist Relationship Specialty Start Date End Date Ramiro Ball MD [address] [place] [address] PCP - General 06/06/10 02/17/24 documented as of this encounter
--- OUTSIDE RECORDS SUMMARY | 2024-04-02 21:15 | XMS_ITS | Encounter Summary ---
Author Organization [facility] [place] [address] Care Team Providers Care Fork Repairer Name Role Phone Ramiro Ball MD Primary Care Provider [phone] Encounter Details Date Type Department Care Team (Late st Contact Info) Description 05/26/2020 2:40 PM EST Office [place] [phone] Chun Wiley MD [facility] DR CARDIOTHORACIC [place] [address] Aortic stenosis, severe Social History Tobacco Use [...] He has treated hypertension, he is a ueu-kwhprqn-nrwzlmgdy diabetic. He has known dyslipidemia. He has had no known previous CVA or TIA. He has no known hepatic dysfunction he does have mild renal insufficiency with a baseline creatinine of about 1.3. He was not a user of tobacco. He is undergone prior appendectomy. He does have a family history of atherosclerotic disease in that his father followingan [place] at 48 years of age. He has [...] office. Best personal regards, Chun Wiley MD [phone] In aggregate 45 minutes were spent evaluating this patient, reviewing all images, counseling/examining the patient and communicating with other involved physicians. documented in this encounter Plan of Treatment Upcoming Encounters Date Type Department Care Team (Late st Contact Info) Description 08/27/2024 2:30 PM EST Office [place] [address] Susanna Cm APRN [facility] [place] [address] documented as of this encounter Visit Diagnoses Diagnosis Aortic stenosis, severe Aortic valve disorders documented in this encounter Care Teams Fork Repairer Relationship Specialty Start Date End Date Ramiro Ball MD [address] [place] [address] PCP - General 06/06/10 02/17/24 documented as of this encounter
--- OUTSIDE RECORDS SUMMARY | 2024-04-02 21:15 | XMS_ITS | Encounter Summary ---
Author Organization [facility] [place] [address] Care Team Providers Care Retail Business Development Manager Name Role Phone Ramiro Ball MD Primary Care Provider [phone] Reason for Referral * Diagnostic Test (Routine) - Closed Specialty Diagnoses / Procedures Referred By Contac t Referred To Contact Radiology Diagnoses Aortic stenosis, severe Procedures CT Angiogram Abdomen & Pelvis w Contrast (Generic) [facility] [address] [place] [address] [facility] [place] [address] Referral ID Status Reason Start Date Expiration Date V isits Requested Visits Authorized [id number] Closed Specialty Service Requested 05/21/2020 11/17/2020 1 1 * Diagnostic Test (Routine) - Closed Specialty Diagnoses / Procedures Referred By Contac t Referred To Contact Radiology Diagnoses Aortic stenosis, severe Procedures CT Cardiac for Morphology & Function [facility] [address] [place] [address] [facility] [place] [address] Referral ID Status Reason Start Date Expiration Date V isits Requested Visits Authorized [id number] Closed Specialty Service Requested 05/26/2020 11/19/2020 1 1 Encounter Details Date Type Department Care Team (Late st Contact Info) Description 04/14/2020 Orders Only Cardiology at [address] [address] Yossi Schmitz RN Aortic stenosis, severe Social History Tobacco [...] 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 of [...] 2:30 PM EST Office [place] [phone] Susanna Cm APRN [facility] [place] [address] documented as of this encounter Results * EKG 12 Lead (05/26/2020 2:30 PM EST) Ventricular rate 73 BPM MUSE SYSTEM Atrial Rate 73 BPM MUSE SYSTEM P-R Interval 124 ms MUSE SYSTEM QRS Duration 78 ms MUSE SYSTEM Q-T Interval 372 ms MUSE SYSTEM QTC Calculated (Bezet) 409 ms MUSE SYSTEM Calculated P Blum 32 degrees MUSE SYSTEM Calculated R Blum -10 degrees MUSE SYSTEM Calculated T Blum -57 degrees MUSE SYSTEM INTERPRETATION Normal sinus [...] fractures. Procedure Note Nani Lund MD - 11/12/2020 EXAMINATION: CT ANGIOGRAM ABDOMEN AND PELVIS W [...] ? Electronically signed by: Deja Haley MD, [facility] ([phone]), at 05/26/2020 4:48 PM Narrative 05/26/2020 4:48 [...] Valsalva, set equidistant: ?? Anterior oblique plane: SPANISH Anterior oblique angulation: 21 Craniocaudal plane: SEMICONDUCTOR ASSEMBLER Craniocaudal angulation: 25 Jcyappm-wd-qtbjavid height: Imaging phase: 75% Right: 12.9 mm [...] of Valsalva, set equidistant: Anterior oblique plane: SPANISH Anterior oblique angulation: 21 Craniocaudal plane: SEMICONDUCTOR ASSEMBLER Craniocaudal angulation: 25 Oxtgpup-if-pelgtuam height: Imaging phase: 75% Right: 12.9 mm [...] EST) Glucose 275(H) 65 - 199 mg/dL [facility] Comment:Diabetes: >=200 mg/d L plus symptoms Blood Urea Nitrogen 17 10 - 20 mg/dL [facility] Creatinine 1.27 0.80 - 1.50 mg/dL [facility] Sodium 137 135 - 145 mmol/L [facility] Potassium 5.0 3.5 - 5.0 mmol/L [facility] Comment: Please note: ??Patients with WBC >100,000 may have falsely elevated Potassium levels. ??For accurate Potassium quantification in these patients send serum separator tube (gold top) for subsequent determinations. ??Contact the Clinical Chemistry Laboratory if there are any questions. Chloride 102 98 - 107 mmol/L [facility] Carbon Dioxide 22 22 - 31 mmol/L [facility] Anion Gap 13 5 - 15 mmol/L [facility] Calcium 10.2 8.5 - 10.5 mg/dL [facility] Protein, Total 8.0 6.1 - 8.0 gm/dL [facility] Albumin 4.8 3.2 - 5.2 gm/dL [facility] Aspartate Aminotransferase 24 0 - 39 unit/L [facility] Alanine Aminotransferase 20 0 - 55 unit/L [facility] Alkaline Phosphatase 60 40 - 130 unit/L [facility] Bilirubin, Total 0.4 0.2 - 1.3 mg/dL [facility] Est Glomerular Filtration Rate 57(L) >=60 mL/min/1. 73 m?? [facility] Comment: The eGFR was calculated using the CKD-EPI equation. As with all creatinine based estimates of kidney function, eGFR values calculated with the CKD-EPI equation are not accurate in patients with acute kidney failure, extremes of body mass or the acutely ill. [email or web address] eGFR 66 >=60 mL/min/1. 73 m?? [facility] Comment: The eGFR was calculated using the CKD-EPI equation. As with all creatinine based estimates of kidney function, eGFR values calculated with the CKD-EPI equation are not accurate in patients with acute kidney failure, extremes of body mass or the acutely ill. [email or web address] Blood specimen (specimen) 05/26/2020 9:11 AM EST 05/26/2020 9:18 AM EST Narrative Resulting Agency Comment Spec In Lab Jim Castelan MD CHEMISTRY ORDERABLES [facility] [place] [address] documented in this encounter Visit Diagnoses Diagnosis Aortic stenosis, severe Aortic valve disorders Aortic stenosis, severe Aortic valve disorders Aortic stenosis, severe Aortic valve disorders documented in this encounter Care Teams Retail Business Development Manager Relationship Specialty Start Date End Date Ramiro Ball MD [address] [place] [id number] PCP - General 06/06/10 02/17/24 documented as of this encounter
--- OUTSIDE RECORDS SUMMARY | 2024-04-02 21:15 | XMS_ITS | Encounter Summary ---
[place] [address] Care Team Providers Care Architecture Drafter Name Role Phone Ramiro Ball MD Primary Care Provider [phone] Encounter Details Date Type Department Care Team (Latest Contact Info) Description 05/26/2020 9:15 AM EST Laboratory Appointment Lab [address] [place] [address] Aortic stenosis, severe Social History Tobacco Use [...] 2:30 PM EST [place] [phone] Susanna Cm, [facility] [place] [address] documented as of this encounter Procedures Procedure [...] 9:11 AM EST) Neutrophil % 51.6 % [facility] Neutrophil Absolute 3.63 1.70 - 6.10 x10(3)/[facility] Lymph % 31.3 % [facility] Lymphocytes Abs 2.2 0.9 - 3.2 x10(3)/[facility] Monocyte % 12.1 % [facility] Monocyte Abs 0.8 0.3 - 0.9 x10(3)/[facility] Eos % 3.6 % [facility] Eosinophils Abs 0.2 0.0 - 0.4 x10(3)/[facility] Basophil % 1.1 % [facility] Baso Absolute 0.1 0.0 - 0.1 x10(3)/[facility] Immature Gran % 0.30 % [facility] Comment: Immature granulocytes(IG's)percentage and absolute count will include metamyelocytes, myelocytes, and promyelocytes. Blood smears from CBCs yielding IG's will be scanned manually for concordance. If this scan disagrees with the automated IG or if promyelocytes are noted, a manual differential will be performed. Immature Gran Absolute 0.02 0.00 - 0.04 x10(3)/[facility] Blood specimen (specimen) 05/26/2020 9:11 AM EST 05/26/2020 9:18 AM EST Narrative Resulting Agency Comment Spec In Lab Jim Castelan MD HEMATOLOGY ORDERABLE S [facility] [place] [address] * (ABNORMAL) Hemogram (05/26/2020 9:11 AM EST) White Blood Cell 7.0 4.0 - 9.5 x10(3)/ L [facility] Red Blood Cell 4.76 4.58 - 5.54 x10(6)/ L [facility] Hemoglobin 13.5(L) 13.7 - 16.5 gm/dL [facility] Hematocrit 40.8 40.5 - 48.5 % [facility] Mean Cell Volume 85.7 82.9 - 93.1 fL [facility] Mean Cell Hemoglobin 28.4 27.5 - 32.1 pg [facility] Mean Cell Hemoglobin Concentration 33.1 32.0 - 35.7 gm/dL [facility] Platelet 154 145 - 357 x10(3)/[facility] RDW Standard Deviation 42.1 36.0 - 45.0 [facility] RDW coefficient of variation 13.5 11.4 - 13.8 % [facility] Mean Platelet Volume 12.0 7.6 - 12.9 [facility] NRBC% auto 0.0 % [facility] NRBC Absolute 0.000 0.000 - 0.000 x10(3)/[facility] Blood specimen (specimen) 05/26/2020 9:11 AM EST 05/26/2020 9:18 AM EST Narrative Resulting Agency Comment Spec In Lab Jim Castelan MD HEMATOLOGY ORDERABLE S [facility] [place] [address] * (ABNORMAL) Comprehensive metabolic panel (non-fasting) (05/26/2020 9:11 AM EST) Glucose 275(H) 65 - 199 mg/dL [facility] Comment:Diabetes: >=200 mg/d L plus symptoms Blood Urea Nitrogen 17 10 - 20 mg/dL [facility] Creatinine 1.27 0.80 - 1.50 mg/dL [facility] Sodium 137 135 - 145 mmol/L [facility] Potassium 5.0 3.5 - 5.0 mmol/L [facility] Comment: Please note: ??Patients with WBC >100,000 may have falsely elevated Potassium levels. ??For accurate Potassium quantification in these patients send serum separator tube (gold top) for subsequent determinations. ??Contact the Clinical Chemistry Laboratory if there are any questions. Chloride 102 98 - 107 mmol/L [facility] Carbon Dioxide 22 22 - 31 mmol/L [facility] Anion Gap 13 5 - 15 mmol/L [facility] Calcium 10.2 8.5 - 10.5 mg/dL [facility] Protein, Total 8.0 6.1 - 8.0 gm/dL [facility] Albumin 4.8 3.2 - 5.2 gm/dL [facility] Aspartate Aminotransferase 24 0 - 39 unit/L [facility] Alanine Aminotransferase 20 0 - 55 unit/L [facility] Alkaline Phosphatase 60 40 - 130 unit/L [facility] Bilirubin, Total 0.4 0.2 - 1.3 mg/dL [facility] Est Glomerular Filtration Rate 57(L) >=60 mL/min/1. 73 m?? [facility] Comment: The eGFR was calculated using the CKD-EPI equation. As with all creatinine based estimates of kidney function, eGFR values calculated with the CKD-EPI equation are not accurate in patients with acute kidney failure, extremes of body mass or the acutely ill. [email or web address] eGFR 66 >=60 mL/min/1. 73 m?? [facility] Comment: The eGFR was calculated using the CKD-EPI equation. As with all creatinine based estimates of kidney function, eGFR values calculated with the CKD-EPI equation are not accurate in patients with acute kidney failure, extremes of body mass or the acutely ill. [email or web address] Blood specimen (specimen) 05/26/2020 9:11 AM EST 05/26/2020 9:18 AM EST Narrative Resulting Agency Comment Spec In Lab Jim Castelan MD CHEMISTRY ORDERABLES [facility] [place] [address] documented in this encounter Visit Diagnoses Diagnosis Aortic stenosis, severe Aortic valve disorders documented in this encounter Care Teams Architecture Drafter Relationship Specialty Start Date End Date Ramiro Ball MD [address] [place] [address] PCP - General 06/06/10 02/17/24 documented as of this encounter
--- OUTSIDE RECORDS SUMMARY | 2024-04-02 21:15 | XMS_ITS | Encounter Summary ---
[place] [address] Care Team Providers Care Product Owner Name Role Phone Ramiro Ball MD Primary Care Provider [phone] Reason for Visit * Auth/Cert Specialty Diagnoses / Procedures Referred By Luca t Referred To Contact Diagnoses Aortic stenosis /PRE TAVR Procedures PRG CATH PLMT CORONARY ART W/INJ FOR ANGIO W/R HEART CATH IMG S&I CARDIAC CATHETERIZATION CORONARY ANGIOGRAPHY; W C Referral ID Status Reason Start Date Expiration Date Visits Re quested Visits Authorized [id number] 1 1 Encounter Details Date Type Department Care Team (Latest Contact Info) Description 06/03/2020 9:12 AM [facility] - 06/03/2020 3:01 PM [facility] Hospital Encounter [place] [address] Jim Castelan MD [facility] [place] [address] Aortic valve stenosis, etiology of cardiac valve [...] by your doctor, do not take any egbn-sej-eerplup medicinesor herbal preparations without first discussing this with your doctor or pharmacist. There is the possibility of side effects and interactions when these are combined. Follow Up Care Who to call with questions or problems If there are any questions or problems that you think might be related to your cardiac cath or angioplasty, contact the company driver combination welder apprentice by calling [facility] at . * Patient Instructions* Johnathan Kothari PA - 06/03/2020 12:33 PM EST Cardiac Cath Provider Discharge Instructions Procedure: right heart catheterization, coronary angiography Call your doctor if: Chest pain, dyspnea, pain or swelling in legs occurs. If you have non-emergentquestions between now and the time of your follow up appointments: During 8am-5pm Saturday through Saturday call [phone] and ask to speak to the cardiology clinic triage nurse. All other times call [phone] and ask to speak to the dietary services director combination welder apprentice. Return to work: One week Driving: No driving for 24 hours after catherization Diet: regular diet Follow up Appointments: company driver Dr Castelan to discuss the next options [...] next steps. Johnathan Kothari PA-C Interventional Cardiology [facility] Pager [phone] documented in this encounter Medications at Time [...] EST Pt d/c'd post cardiac cath to [facility] before going home. He is accompanied by his . Pt's R radial and R AC sites are benign. Sling placed on R arm as reminder not to use wrist. * Shante Duke RN - 06/03/2020 11:30 AM EST Patient had cranberry/grape juice mixture this morning around 0730. laborer/grade check called, Yobani from cathlab notified and said that is okay. MD Aline also notified. Shante Duke RN documented in this encounter H&P Notes * Ivon Gracia PA - 06/03/2020 11:33 AM EST Patient Name: Johnson Tobar Patient Age: 69 y.o. Birthdate: 1950 Admit date: 06/03/2020 Attending Physician: Jim Castelan MD [facility] Interventional Cardiology Adult [...] RASHEL Champion Interventional Cardiology 06/03/20 11:33 AM [facility] Pager: [phone] documented in this encounter Miscellaneous Notes * Brief Op Note - Jim Castelan MD - 06/03/2020 12:28 PM EST Preliminary Cardiac Catheterization Procedure Note: Patient Name: Johnson Tobar : [id number] MR#: [id number] Case Date: 06/03/2020 Behavioral Consultant: Surgeon(s) and Role: * Jim Castelan MD - Primary * Johnathan Kothari PA - Physician Siding Installer Preoperative diagnosis: /PRE TAVR Postoperative diagnosis: * [...] 2:30 PM EST Office [place] [address] Susanna Cm APRN [facility] [place] [address] documented as of this encounter Procedures Procedure [...] Clear Clear [facility] Specific [place] Urine Automated >=1.030(A) 1.006 - 1.030 [facility] Color, Urine Dipstick Yellow Yellow [facility] Urine specimen (specimen) 06/03/2020 4:36 PM EST 06/03/2020 4:36 PM EST Narrative Resulting Agency Comment Spec In Lab Chun Wiley MD URINE ORDERABLES [facility] [place] [id number] * XR Chest PA & Lateral (Generic) (06/03/2020 4:21 PM EST) Anatomical Region Laterality Modality Chest N/A Digital Radiogra phy Impressions 06/03/2020 4:47 PM EST No radiographic evidence of acute cardiopulmonary disease. Thank you for letting us participate in the care of this patient. For questions regarding this report, please contact the number below. ? Electronically signed by: Gus Evans MD, [facility] ([phone]), at 06/03/2020 4:47 PM Narrative 06/03/2020 4:47 [...] below. Electronically signed by: Gus Evans MD, [facility]([phone]), at 06/03/2020 4:47 PM Chun Wiley MD [...] MD HEMATOLOGY ORDERABL ES Performing Organization Address [facility] Co de Phone Number [facility] [place] [address] * Hepatic Function Panel (06/03/2020 4:10 PM EST) [facility] Protein, Total 7.2 6.1 - 8.0 gm/dL [...] MD CHEMISTRY ORDERABLE S Performing Organization Address [facility] Phone Number [facility] [place] [address] * (ABNORMAL) Basic Metabolic Panel (non-fasting) (06/03/2020 4:10 PM EST) [facility] Glucose 208(H) 65 - 199 mg/dL [facility] [...] of body mass or the acutely ill. http://Powered/[facility] eGFR 71 >=60 mL/min/1. 73 m?? [facility] Comment: The eGFR was calculated using the CKD-EPI equation. As with all creatinine based estimates of kidney function, eGFR values calculated with the CKD-EPI equation are not accurate in patients with acute kidney failure, extremes of body mass or the acutely ill. [email or web address]/[facility]nkf Blood specimen (specimen) 06/03/2020 4:10 PM EST 06/03/2020 4:53 PM EST Narrative Resulting Agency Comment Spec In Lab Chun Wiley MD CHEMISTRY ORDERABLE S [facility] [place] [place] [address] * (ABNORMAL) Point of Care Blood Gas Historical (06/03/2020 1:08 PM EST) pH, POC 7.40 7.35 - 7.45 [facility] pCO2, POC 34(L) 35 - 45 mmHg [facility] pO2, POC 74(L) 85 - 104 mmHg [facility] Base Excess, POC -3.0 -3.0 - 3.0 mmol/L [facility] Bicarbonate, POC 21.4 20.0 - 26.0 mmol/L [facility] Sodium, POC 138 135 - 145 mmol/L [facility] Potassium 4.5 3.5 - 5.0 mmol/L [facility] Ionized Calcium, POC 1.31 1.15 - 1.33 mmol/L [facility] Hematocrit 39.0(L) 40.0 - 51.0 % [facility] Calc Hgb 13.3(L) 13.7 - 17.5 gm/dL [facility] Comment:The calculation of h emoglobin from hematocrit assumes a normal MCHC. POC Bgas Loc CC LAB [facility] Blood specimen (specimen) 06/03/2020 1:08 PM EST 06/07/2020 9:00 AM EST Jim Castelan MD CHEMISTRY ORDERABLES Performing Organization Address [facility]/State/[facility] Co de Phone Number [facility] [place] [address] * CARDIAC CATHETERIZATION (06/03/2020 12:30 PM EST) Anatomical Region Laterality Modality Other Narrative 06/03/2020 12:59 PM EST ?[facility] ? Cardiac Catheterization/Intervention Report ? Patient Name: Ekaterina, Johnson R. ? Procedure Date: 06/03/2020 ? A #: [id number] ? Primary Physician: Annelise, Jim T ? Case #: [id number] ? File Name: [id number] ? Catheterization Order Number: [id number] ? [facility] ?Treating Engineer [facility] ? Final Report [place], [place] ? Patient Name: ? Johnson R. Ekaterina ? ID#: ?[id number] ? : ?1950 ? Procedure Date: ? [...] was Elective. The indication for ?the laborer vineyard visit is other indication. Chest pain symptom [...] Procedure Note Jim Castelan MD - 06/27/2020 [facility] Cardiac Catheterization/Intervention Report Patient Name: Johnson TobarTyra Procedure Date: 06/03/2020 A #: [id number] Primary Physician: Jim Castelan Case #: [id number] File Name: [id number] Catheterization Order Number: [id number] [facility] FinalReport [place], [place] Patient Name: Johnson Tobar ID#:[id number] :1950 Procedure Date: June 03, 2020 Case [...] was designated as ASA Class III. The [facility] clinical frailtyscale is 3: Managing [...] procedure was Elective. Theindication for the laborer vineyard visit is other indication. 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-2020) J-point elevation Abnormal ECG When compared with ECG of 26-MAY-2020 14:30, No significant change was found Confirmed by MD Mclain Daniel ([id number]) on 06/03/2020 1:23:54 PM MUSE SYSTEM 06/03/2020 11:3 7 AM EST 06/03/2020 1:23 PM EST Jim Castelan MD ECG ORDERABLES MUSE SYSTEM documented in this encounter Visit Diagnoses Diagnosis Aortic valve stenosis- Primary Aortic valve disorders Aortic valve stenosis, etiology of cardiac valve disease unspecified Nonrheumatic aortic valve stenosis Aortic valve disorders CAD (coronary artery disease) Coronary atherosclerosis of unspecified type of vessel, [place] or graft Aortic valve stenosis, etiology of cardiac valve disease unspecified Nonrheumatic aortic valve stenosis Aortic valve disorders documented in this encounter Admitting Diagnoses Diagnosis CAD (coronary artery disease) Coronary atherosclerosis of unspecified type of vessel, [place] or graft documented in this encounter Active [...] MD) documented in this encounter Care Teams Product Owner Relationship Specialty Start Date End Date Ramiro Ball MD [address] [place] [address] PCP - General 06/06/10 02/17/24 documented as of this encounter
--- OUTSIDE RECORDS SUMMARY | 2024-04-02 21:15 | XMS_ITS | Encounter Summary ---
[place] [address] Care Team Providers Care Parts Salesman Name Role Phone Ramiro Ball MD Primary Care Provider [phone] Encounter Details Date Type Department Care Team (Late st Contact Info) Description 05/09/2020 Orders [place] [address] Ivon Gracia PA [facility] [address] Aortic valve stenosis, etiology of cardiac valve [...] 2:30 PM EST Office [place] [address] Susanna Cm APRN [facility] [place] [address] documented as of this encounter Visit Diagnoses Diagnosis Aortic valve stenosis, etiology of cardiac valve disease unspecified documented in this encounter Care Teams Parts Salesman Relationship Specialty Start Date End Date Ramiro Ball MD [address] [place] [address] PCP - General 06/06/10 02/17/24 documented as of this encounter
--- OUTSIDE RECORDS SUMMARY | 2024-04-02 21:15 | XMS_ITS | Encounter Summary ---
Author Organization [facility] Address [facility] [place] [address] Care Team Providers Care Hot Kettle Tender Name Role Phone Ramiro Ball MD Primary Care Provider [phone] Encounter Details Date Type Department Care Team (Latest Contact Info) Description 05/26/2020 11:15 AM EST - 05/26/2020 11:59 PM [facility] Hospital Encounter XRay at [address] [place] [address] Jim Castelan MD [facility] [place] [address] Aortic stenosis, severe Discharge Disposition: Home Social [...] 2:30 PM EST Office [place] [address] Susanna Cm, AN[facility] [place] [address] documented as of this encounter Procedures Procedure [...] disorders documented in this encounter Care Teams Hot Kettle Tender Relationship Specialty Start Date End Date Ramiro Ball MD [address] [place] [address] PCP - General 06/06/10 02/17/24 documented as of this encounter
--- OUTSIDE RECORDS SUMMARY | 2024-04-02 21:15 | XMS_ITS | Encounter Summary ---
[place] [address] Care Team Providers Care Net Mender Name Role Phone Ramiro Ball MD Primary Care Provider [phone] Reason for Visit * Reason Comments Coronary Artery Disease Encounter Details Date Type Department Care Team (Latest Contact Info) Description 04/07/2013 11:45 AM EDT Office Visit [address] [address] [place] MD [facility] 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
--- OUTSIDE RECORDS SUMMARY | 2024-04-02 21:15 | XMS_ITS | Encounter Summary ---
[place] [address] Care Team Providers Care Equal Opportunity Officer Name Role Phone Ramiro Ball MD Primary Care Provider [phone] Encounter Details Date Type Department Care Team (Late st Contact Info) Description 03/01/[address] [address] Charissa Goodman, RN ASCVD (arteriosclerotic cardiovascular disease); Aortic stenosis [...] 2:30 PM EST [place] [address] Susanna Cm APRN [facility] [place] [address] documented as of this encounter Visit Diagnoses Diagnosis ASCVD (arteriosclerotic cardiovascular disease) Unspecified cardiovascular disease Aortic stenosis Aortic valve disorders documented in this encounter Care Teams Equal Opportunity Officer Relationship Specialty Start Date End Date Ramiro Ball MD [address] [place] [address] PCP - General 06/06/10 02/17/24 documented as of this encounter
--- OUTSIDE RECORDS SUMMARY | 2024-04-02 21:15 | XMS_ITS | Encounter Summary ---
Author Organization [facility] Address [facility] [place] [address] Care Team Providers Care Siding Coreboard Inspector Name Role Phone Ramiro Ball MD Primary Care Provider [phone] Reason for Visit * Reason Comments Coronary Artery Disease Encounter Details Date Type Department Care Team (Late st Contact Info) Description 03/02/2011 8:15 AM EDT Office Visit [address] [address] Carl [place] MD [facility] [place] [address] CAD (coronary artery disease) (Primary Dx) Social [...] - 03/02/2011 8:33 AM EDT Scanned note [facility] att documented in this encounter Plan of Treatment Upcoming Encounters Date Type Department Care Team (Late st Contact Info) Description 08/27/2024 2:30 PM EST Office [place] [address] Susanna Cm APRN [facility] [place] [address] documented as of this encounter Visit Diagnoses Diagnosis CAD (coronary artery disease)- Primary Coronary atherosclerosis of unspecified type of vessel, [place] or graft documented in this encounter Care Teams Siding Coreboard Inspector Relationship Specialty Start Date End Date Ramiro Ball MD [address] [place] [address] PCP - General 06/06/10 02/17/24 documented as of this encounter
--- OUTSIDE RECORDS SUMMARY | 2024-04-02 21:15 | XMS_ITS | Encounter Summary ---
Author Organization [facility] [place] [address] Care Team Providers Care Greenskeeper Supervisor Name Role Phone Ramiro Ball MD Primary Care Provider [phone] Encounter Details Date Type Department Care Team (Late st Contact Info) Description 05/26/2020 2:20 PM EST Office Visit Cardiology at [address] [phone] Aortic stenosis, severe Social History Tobacco Use [...] 2:30 PM EST Office [place] [address] Susanna Cm APRN [facility] [place] [address] documented as of this encounter Procedures Procedure [...] (Bezet) 409 ms MUSE SYSTEM Calculated P Oracle 32 degrees MUSE SYSTEM Calculated R Oracle -10 degrees MUSE SYSTEM Calculated T Oracle -57 degrees MUSE SYSTEM INTERPRETATION Normal sinus [...] disorders documented in this encounter Care Teams Greenskeeper Supervisor Relationship Specialty Start Date End Date Ramiro Ball MD [address] [place] [address] PCP - General 06/06/10 02/17/24 documented as of this encounter
--- OUTSIDE RECORDS SUMMARY | 2024-04-02 21:15 | XMS_ITS | Encounter Summary ---
Author Organization [facility] [place] [address] Care Team Providers Care Maintenance Engineer Oil Field Name Role Phone Ramiro Ball MD Primary Care Provider [phone] Reason for Referral * Diagnostic Test (Routine) - Closed Specialty Diagnoses / Procedures Referred By Contac t Referred To Contact Radiology Diagnoses Aortic stenosis, severe Procedures CT Angiogram Abdomen & Pelvis w Contrast (Generic) [facility] [address] [place] [address] [facility] [place] [address] Referral ID Status Reason Start Date Expiration Date V isits Requested Visits Authorized [id number] Closed Specialty Service Requested 05/21/2020 11/17/2020 1 1 * Diagnostic Test (Routine) - Closed Specialty Diagnoses / Procedures Referred By Contac t Referred To Contact Radiology Diagnoses Aortic stenosis, severe Procedures CT Cardiac for Morphology & Function [facility] [address] [place] [address] [facility] [place] [address] Referral ID Status Reason Start Date Expiration Date V isits Requested Visits Authorized [id number] Closed Specialty Service Requested 05/26/2020 11/19/2020 1 1 Reason for Visit * Diagnostic Test (Routine) - Closed Specialty Diagnoses / Procedures Referred By Luca beltran Referred To Contact Radiology Diagnoses Aortic stenosis, severe Procedures CT Cardiac for Morphology & Function [facility] [address] [place] [address] [facility] [place] [address] Referral ID Status Reason Start Date Expiration Date V isits Requested Visits Authorized [id number] Closed Specialty Service Requested 05/26/2020 11/19/2020 1 1 Encounter Details Date Type Department Care Team (Latest Contact Info) Description 05/26/2020 10:04 AM EST - 05/26/2020 11:14 AM EST Hospital [place] [address] Jim Castelan MD [facility] [place] [address] Aortic stenosis, severe Discharge Disposition: Home Social [...] 2:30 PM EST [place] [address] Susanna Cm APRN [facility] [place] [address] documented as of this encounter Procedures Procedure [...] the number below. ? Electronically signed by: Nani Lund MD, [facility] ([phone]), at 05/26/2020 11:39 AM Narrative 05/26/2020 11:39 AM EST EXAMINATION: CT [...] contact the number below. Electronically signed by: Nani Lund MD, [facility]([phone]), at 05/26/2020 11:39 AM Jim Castelan MD IMG CT ORDERABLES * [...] ? Electronically signed by: Deja Haley MD, [facility] ([phone]), at 05/26/2020 4:48 PM Narrative 05/26/2020 4:48 [...] Valsalva, set equidistant: ?? Anterior oblique plane: SCOTTISH Anterior oblique angulation: 21 Craniocaudal plane: PRINCIPAL SYSTEMS ARCHITECT Craniocaudal angulation: 25 Okfiqqw-da-kcuvwjnu height: Imaging phase: 75% Right: 12.9 mm [...] of Valsalva, set equidistant: Anterior oblique plane: SCOTTISH Anterior oblique angulation: 21 Craniocaudal plane: PRINCIPAL SYSTEMS ARCHITECT Craniocaudal angulation: 25 Vubvgbc-lb-prfpcika height: Imaging phase: 75% Right: 12.9 mm [...] below. Electronically signed by: Deja Haley MD, [facility]([phone]), at 05/26/2020 4:48 PM Jim Castelan MD IMG CT ORDERABLES documented [...] mLs documented in this encounter Care Teams Maintenance Engineer Oil Field Relationship Specialty Start Date End Date Ramiro Ball MD [address] [place] [address] PCP - General 06/06/10 02/17/24 documented as of this encounter
--- OUTSIDE RECORDS SUMMARY | 2024-04-02 21:15 | XMS_ITS | Encounter Summary ---
Author Organization [facility] [place] [address] Care Team Providers Care Reliner Name Role Phone Ramiro Ball MD Primary Care Provider [phone] Encounter Details Date Type Department Care Team (Latest Contact Info) Description 05/26/2020 3:40 PM EST Office Visit Cardiology at [address] [address] Jim Castelan MD [facility] [place] [address] Aortic valve stenosis, etiology of cardiac valve [...] from the original note were not included. [facility] [place] [address] CARDIOVASCULAR MEDICINE OUTPATIENT CONSULTATION [facility] Johnson Tobar Primary Care Provider: Ramiro Ball MD REFERRING PROVIDER: oJseph Lackey CHIEF COMPLAINT: Aortic stenosis PROBLEM LIST: [...] Lackey. Social history: The patient is from [facility]. 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 He is and lives with his on his farm, and they have 2 grown children who are out of the house. He is a lifelong non-smoker and rarely drinks alcoholic beverages. He enjoys watching sports on TV, and is a tie hard [place] [employer] baseball fan. He also played basketball for many years, but had to stop doing it recently because of bilateral knee pain. He enjoys watching basketball and football on TV. Over the summer months, he noticed he had more difficulty out in the [place] with shortness of breath and fatigue. He was seen at [facility] by Dr. Lackey where an echocardiogram [...] Once we have this information, I can [place]inibo[place] and sioux back to Dr. Chun Wiley and we [...] 2:30 PM EST [place] [address] Susanna Cm, REAL ESTATE INTERN [facility] [place] [address] documented as of this encounter Visit Diagnoses Diagnosis Aortic valve stenosis, etiology of cardiac valve disease unspecified ASCVD (arteriosclerotic cardiovascular disease) Unspecified cardiovascular disease Hypertension, unspecified type Elevated cholesterol Pure hypercholesterolemia documented in this encounter Care Teams Reliner Relationship Specialty Start Date End Date Ramiro Ball MD [address] [place] [address] PCP - General 06/06/10 02/17/24 documented as of this encounter
--- NOTE | 2024-04-02 22:11 | ED.GENADUL_ITS ---
Discharge Plan Disposition Patient Disposition: Home Condition: Stable Discharge Details Clinical Impression: Arm pain, left Primary Care Provider: Ramiro Ball ED Provider: Denise Lara Home Meds and New Rx's Prescriptions: Continued amlodipine 5 mg Tablet 5 mg PO BID ezetimibe [Zetia] 10 mg Tablet 10 mg PO DAILY Entresto 24-26 mg Tablet 1 tab PO BID aspirin 81 mg Tablet,Delayed Release (Dr/Ec) 81 mg PO DAILY glipizide 5 mg Tablet Extended Release 24hr 5 mg PO DAILY metformin 1,000 mg Tablet 1,000 mg PO BID metoprolol tartrate 50 mg Tablet 50 mg PO BID nitroglycerin [Nitrostat] 0.4 mg Tablet, Sublingual 0.4 mg SUBLINGUAL DIRECTED omeprazole 20 mg Capsule,Delayed Release(Dr/Ec) 20 mg PO DAILY multivitamin Capsule 1 cap PO DAILY rosuvastatin [Crestor] 40 mg Tablet 40 mg PO DAILY Discharge Instructions Instructions: Managing acute pain at home Additional Instructions: Please follow-up with your primary care physician and truck despatcher at your scheduled appointments Continue on your prescribed medications Take Tylenol as needed for pain and follow-up with your dentist tomorrow to schedule an appointment Please return immediately should you have chest pain, shortness of breath, weakness or should you have any change in symptoms. Referrals: Ramiro Ball [Primary Care Provider] - 1 day Discharge Data Discharge Date/Time-TO BE ENTERED AT DEPARTURE: 04/02/24 22:56 HPI General Date/Time Provider Initiated Documentation: 04/02/24 18:32 . HPI Narrative: This 73-year-old male presents with recent hemorrhagic stroke and non-ST elevation myocardial infarction with some left-sided discomfort. He states he has some discomfort to his face and his left arm. He states it is not weakness or numbness. He had a stroke which affected his left side at the end of February while he was receiving a cardiac cath reportedly. Went to rehab shortly thereafter and then was sent back to [facility] approximately a week later with CHF with pulmonary edema. He states overall he is feeling improvement until last evening when his symptoms began, he describes them as vague. He denies any headache or dizziness. He denies any chest pain or shortness of breath. Related Data Home Medications ?Medication ?Instructions ?Recorded ?Confirmed glipizide 5 mg tablet, extended 5 mg PO DAILY 04/22/18 04/02/24 release 24 hr metformin 1,000 mg tablet 1,000 mg PO BID 04/22/18 04/02/24 metoprolol tartrate 50 mg tablet 50 mg PO BID 04/22/18 04/02/24 multivitamin 1 cap PO DAILY 04/22/18 04/02/24 nitroglycerin 0.4 mg sublingual 0.4 mg sublingual DIRECTED 04/22/18 04/02/24 tablet (Nitrostat) omeprazole 20 mg capsule,delayed 20 mg PO DAILY 04/22/18 04/02/24 release rosuvastatin 40 mg tablet (Crestor) 40 mg PO DAILY 04/22/18 04/02/24 amlodipine 5 mg tablet 5 mg PO BID 03/21/22 04/02/24 ezetimibe 10 mg tablet (Zetia) 10 mg PO DAILY 03/21/22 04/02/24 sacubitril 24 mg-valsartan 26 mg 1 tab PO BID 03/21/22 04/02/24 tablet (Entresto) aspirin 81 mg tablet,delayed 81 mg PO DAILY 03/22/22 04/02/24 release Allergies Allergy/AdvReac Type Severity Reaction Status Date / Time ticlopidine Allergy Unknown Unknown Verified 04/02/24 18:28 General Stated Complaint: CVA/TIA MARY: 2 Exam Narrative Exam Narrative: Alert and oriented 73-year-old male presenting in no acute distress pupils equal round reactive to light accommodation, lungs clear to auscultation, cardiac rate rhythm regular, no abdominal tenderness, negative [id number], negative heel mata, negative pronator drift, GCS 15, strength and sensation intact distally to all 4 extremities ambulatory with steady gait. Course Vital Signs Vital signs: Vital Signs Pulse 64 04/02/24 18:23 Respiratory Rate 16 04/02/24 18:23 Pulse Oximetry 95 04/02/24 18:23 Pulse 60 04/02/24 21:01 Pulse 63 04/02/24 21:01 Respiratory Rate 23 04/02/24 21:01 Respiratory Effort Normal, Non-Labored 04/02/24 19:27 Respiratory Depth Normal 04/02/24 19:27 Respiratory Pattern Normal 04/02/24 19:27 Blood Pressure 113/50 L 04/02/24 21:01 Blood Pressure Mean 73 04/02/24 21:01 Pulse Oximetry 95 04/02/24 18:23 Oxygen Delivery Method Room Air 04/02/24 18:23 Oxygen Flow Rate 0 04/02/24 18:23 Pain Level 5 04/02/24 18:23 Lab/Test Results Lab/Test Results: Laboratory Tests Range/Units 04/02/24 19:35 WBC (4.4-10.8) 10^3/uL 5.92 RBC (4.36-5.78) 10^6/uL 3.70 L Hgb (13.5-17.5) g/dL 10.0 L Hct (40.0-50.0) % 31.2 L MCV (80-95) fL 84 MCH (27.0-33.0) pg 27.0 MCHC (32.0-36.0) % 32.1 RDW (11.8-14.1) % 16.4 H Plt Count (130-400) 10^3/uL 196 MPV (8.0-11.0) fL 10.7 Immature Gran % % 0.3 Neutrophils % % 60.5 Lymphocytes % % 21.3 Monocytes % % 13.5 Eosinophils % % 3.2 Basophils % % 1.2 Nucleated RBC % (0.0-0.3) % 0.0 Absolute Neutrophils (1.2-6.7) 10^3/uL 3.58 Absolute Lymphocytes (1.2-3.4) 10^3/uL 1.26 Absolute Monocytes (0.1-0.8) 10^3/uL 0.80 Absolute Eosinophils (0.0-0.7) 10^3/uL 0.19 Absolute Basophils (0.0-0.2) 10^3/uL 0.07 Sodium (136-145) mmol/L 134 L Potassium (3.5-5.1) mmol/L 3.9 Chloride (98-107) mmol/L 99 Carbon Dioxide (21.0-32.0) mmol/L 26.9 Anion Gap (3-11) mmol/L 8.1 BUN (7-18) mg/dL 24 H Creatinine (0.70-1.30) mg/dL 1.3 Est GFR (CKD-EPI 2020) (mL/min/1.73m2) 57.65 Glucose (74-106) mg/dL 159 H Calcium (8.5-10.1) mg/dL 9.4 Total Bilirubin (0.2-1.0) mg/dL 0.32 AST (15-37) U/L 19 ALT (16-63) U/L 23 Alkaline Phosphatase (46-116) U/L 73 Troponin I (<or=76) ng/L 24 NT-Pro-B Natriuret Pep (<300) pg/mL 3194 H Total Protein (6.4-8.2) g/dL 7.3 Albumin (3.4-5.0) g/dL 3.3 L Medical Decision Making Complex 73-year-old male presenting with vague symptoms, left arm pain. BNP elevated at 3194 but patient is not exhibiting chest pain or shortness of breath. He has 2 negative troponins which is reassuring. EKG does not troponins of acute obvious ischemia or injury. Hemoglobin of 10 and 31, unchanged from prior. This time patient's symptoms have resolved aside from some mild pain in his left elbow. He has no clinical signs or symptoms consistent with DVT. Neurovascularly intact. Encouraged to follow-up with truck despatcher and PCP at his appointment next week and return earlier should he have new or worsening complaints. CT head does not show evidence of acute infarct or change. At this time I have low suspicion for TIA or CVA nonfocal neurological assessment with symptoms intermittently for the past several days. I think this patient is stable for discharge home with Close outpatient reassessment Quality:SDOH Health Related Social Needs: No Data to Display PFSH All Active Problems (Updated 03/23/22 @ 09:37 by Gus Phillips MD) Arm pain, left (Acute) S/P cataract surgery (Chronic 04/28/18) Medical History (Updated 04/02/24 @ 22:43 by RASHEL Castelan) Acid reflux HLD (hyperlipidemia) HTN (hypertension) Diabetes Surgical History (Updated 03/23/22 @ 09:37 by Gus Phillips MD) Hx of appendectomy Hx of aortic valve replacement F/U with Dr. Lackey S/P CABG x 2019 Social History Smoking/Tobacco Use Status: Never Smoking risk assessment performed?: Yes Alcohol Intake: never Drug use: Never Substance use type: does not use Housing: house Do you feel safe at home: Yes Do you feel safe in your relationship?: Yes
[2024-04-02 22:13] LABS: Troponin I 30 ng/L (<or=76)
== END 2024-04-02 22:56 | disposition home or self-care (01) ==
PROVIDERS: Emergency Provider Physician Assistant; PCP Internal Medicine
DX: M79.602 Pain in left arm (principal); G50.1 Atypical facial pain; I10 Essential (primary) hypertension; E11.9 Type 2 diabetes mellitus without complications; E78.5 Hyperlipidemia, unspecified; I25.2 Old myocardial infarction; Z86.73 Personal history of transient ischemic attack (TIA), and cerebral infarction without residual deficits; Z95.1 Presence of aortocoronary bypass graft; Z95.2 Presence of prosthetic heart valve; Z79.82 Long term (current) use of aspirin; Z79.84 Long term (current) use of oral hypoglycemic drugs
CPT/HCPCS: 36415; 80053; 82962; 93005; 99285; 70450; 71045; 83880; 84484; 85025; 93010; 99284

== ENCOUNTER 2024-06-26 12:11 | Outpatient (REF) | payer MEDICARE, SELFPAY ==
[2024-06-26 19:44] LABS: Abs Immature Grans 0.02 10^3/uL (0.0-0.06); Absolute Basophil Count 0.08 10^3/uL (0.0-0.2); Absolute Eosinophil Count 0.27 10^3/uL (0.0-0.7); Absolute Lymphocyte Count 1.46 10^3/uL (1.2-3.4); Absolute Monocyte Count 0.67 10^3/uL (0.1-0.8); Absolute Neutrophil Count 4.29 10^3/uL (1.2-6.7); Basophils % 1.2 %; HCT 38.8 % (40.0-50.0); HGB 12.8 g/dL (13.5-17.5); Immature Grans % 0.3 %; Lymphocytes % 21.5 %; MCH 28.4 pg (27.0-33.0); MCV 86 fL (80-95); MPV 12.3 fL (8.0-11.0); Monocytes % 9.9 %; Neutrophils % 63.1 %; Platelet Count 150 10^3/uL (130-400); RBC 4.51 10^6/uL (4.36-5.78); RDW 14.7 % (11.8-14.1); RDW-SD 46.3 fL; WBC 6.79 10^3/uL (4.4-10.8)
[2024-06-26 20:26] LABS: Iron 81 ug/dL (65-175); Total Iron Binding Capacity 375 ug/dL (250-450)
[2024-06-26 20:38] LABS: Ferritin 42 ng/mL (26-388)
== END 2024-06-26 12:12 | disposition home or self-care (01) ==
LOC: NCHCN 12:11
PROVIDERS: PCP Internal Medicine; Visit Provider Physician Assistant
DX: D64.9 Anemia, unspecified (principal)
CPT/HCPCS: 82728; 83540; 83550; 85025

== ENCOUNTER 2024-11-06 12:05 | Outpatient (REF) | payer MEDICARE, SELFPAY ==
[2024-11-06 19:06] LABS: Iron 78 ug/dL (65-175); Total Iron Binding Capacity 376 ug/dL (250-450); Transferrin Sat 21 % (20-55)
[2024-11-06 19:19] LABS: Ferritin 35 ng/mL (26-388)
== END 2024-11-06 12:06 | disposition home or self-care (01) ==
LOC: NCHCN 12:05
PROVIDERS: PCP Internal Medicine; Visit Provider Physician Assistant
DX: D64.9 Anemia, unspecified (principal)
CPT/HCPCS: 82728; 83540; 83550

== ENCOUNTER 2024-12-04 10:18 | Outpatient (REF) | payer MEDICARE, SELFPAY ==
[2024-12-04 19:44] LABS: Magnesium 1.3 mg/dL (1.8-2.4)
== END 2024-12-04 10:19 | disposition home or self-care (01) ==
LOC: NCHCN 10:18
PROVIDERS: PCP Internal Medicine; Visit Provider Physician Assistant
DX: E83.42 Hypomagnesemia (principal)
CPT/HCPCS: 83735

== ENCOUNTER 2024-12-18 13:33 | Outpatient (REF) | payer MEDICARE, SELFPAY ==
[2024-12-18 19:37] LABS: Magnesium 1.4 mg/dL (1.8-2.4)
== END 2024-12-18 13:34 | disposition home or self-care (01) ==
LOC: NCHCN 13:33
PROVIDERS: PCP Internal Medicine; Visit Provider Physician Assistant
DX: E83.42 Hypomagnesemia (principal)
CPT/HCPCS: 83735

== ENCOUNTER 2025-01-22 19:38 | Outpatient (REF) | payer MEDICARE, SELFPAY ==
[2025-01-22 20:17] LABS: Magnesium 1.6 mg/dL (1.8-2.4)
== END 2025-01-22 19:39 | disposition home or self-care (01) ==
LOC: NCHCN 19:38
PROVIDERS: PCP Internal Medicine; Visit Provider Physician Assistant
DX: E83.42 Hypomagnesemia (principal)
CPT/HCPCS: 83735

== ENCOUNTER 2025-02-10 11:45 | Outpatient (REF) | payer MEDICARE, SELFPAY ==
[2025-02-10 20:38] LABS: Magnesium 1.6 mg/dL (1.8-2.4)
== END 2025-02-10 11:46 | disposition home or self-care (01) ==
LOC: NCHCN 11:45
PROVIDERS: PCP Internal Medicine; Visit Provider Physician Assistant
DX: E83.42 Hypomagnesemia (principal)
CPT/HCPCS: 83735

== ENCOUNTER 2025-05-07 18:04 | Outpatient (REF) | payer MEDICARE, SELFPAY ==
[2025-05-07 18:58] LABS: Abs Immature Grans 0.03 10^3/uL (0.0-0.06); HCT 39.0 % (40.0-50.0); HGB 12.9 g/dL (13.5-17.5); Immature Grans % 0.4 %; MCH 27.9 pg (27.0-33.0); MCHC 33.1 % (32.0-36.0); MCV 84 fL (80-95); MPV 11.7 fL (8.0-11.0); Platelet Count 165 10^3/uL (130-400); RBC 4.63 10^6/uL (4.36-5.78); RDW 13.2 % (11.8-14.1); RDW-SD 39.8 fL; WBC 7.45 10^3/uL (4.4-10.8)
[2025-05-07 19:12] LABS: ALT 35 U/L (16-63); AST 27 U/L (15-37); Albumin 4.0 g/dL (3.4-5.0); Alkaline Phosphatase 81 U/L (46-116); Anion Gap 10.1 mmol/L (3-11); BUN 18 mg/dL (7-18); Bilirubin, Total 0.6 mg/dL (0.2-1.0); CO2 26.9 mmol/L (21.0-32.0); Calcium 9.8 mg/dL (8.5-10.1); Chloride 97 mmol/L (98-107); Estimated GFR 57.29 (mL/min/1.73m2); Glucose 139 mg/dL (74-106); Magnesium 1.5 mg/dL (1.8-2.4); Potassium 4.7 mmol/L (3.5-5.1); Sodium 134 mmol/L (136-145); Total Protein 8.4 g/dL (6.4-8.2)
== END 2025-05-07 18:05 | disposition home or self-care (01) ==
LOC: NCHCN 18:04
PROVIDERS: PCP Internal Medicine; Visit Provider Physician Assistant
DX: I50.9 Heart failure, unspecified (principal); E83.42 Hypomagnesemia
CPT/HCPCS: 80053; 83735; 85025